=== PATIENT | female | born 1970 | race African-American/Black ===

== ENCOUNTER 2017-05-10 06:51 | Outpatient (RCR) | payer OTHER, SELFPAY ==
[2017-04-19 09:20] LABS: Absolute Lymphocyte Count 1.23 X10^3/ul (0.83-4.51); Absolute Neutrophil Count 5.2 X10^3/uL (2.0-7.7); Basophil# 0.02 X10^3/uL; Basophil% 0.3 % (0-1); Eosinophil# 0.09 X10^3/uL; Eosinophils% 1.3 % (0-5); Hematocrit 32.1 % (37-47); Hemoglobin 10.5 g/dl (12.0-15.0); Lymphocyte # 1.23 X10^3/ul (4.0); Lymphocyte % 17.7 % (19-41); Mean Corp Hgb Conc 32.7 g/gl (32-36); Mean Corpuscular Hgb 30.5 pg (27.0-32.0); Mean Corpuscular Volume 93.3 fL (81-99); Monocyte# 0.41 X10^3/uL; Monocyte% 5.9 % (0-10); Neutrophil # 5.19 X10^3/uL (2.7-7.7); Neutrophil % 74.7 % (47-70); Platelet Count 331 K/mm3 (150-450); RBC Distribution Width CV 13.7 % (11.6-14.6); RBC Distribution Width SD 46.1 fl (35.1-43.9); Red Blood Count 3.44 M/mm3 (4.2-5.4)
[2017-04-19 09:29] LABS: POSITIVE COUNT NO; POSITIVE DIFFERENTIAL NO; POSITIVE MORPHOLOGY NO
[2017-04-19 09:53] LABS: ALB/GLOB Ratio 0.6 RATIO (0.9-2.4); AST(SGOT) 8 U/L (15-37); Alanine Aminotransfer ALT/SGPT 12 U/L (12-78); Albumin, Serum 2.9 g/dL (3.4-5.0); Alkaline Phosphatase 101 U/L (45-117); Anion Gap 7 (5-15); BUN 17 mg/dL (7-18); BUN/Creat Ratio 28.1 RATIO (10-20); Chloride 97 mmol/L (98-107); Creatinine, Serum 0.61 mg/dL (0.55-1.02); EST Glomerular Filtration Rate 112 mL/min (>60); Est Glom Filt Rate - Afr Amer 136 mL/min (>60); Globulin 4.6 g/dL (2.2-4.2); Glucose 197 mg/dL (70-110); Potassium 3.7 mmol/L (3.5-5.1); Protein, Total 7.5 g/dL (6.4-8.2); Sodium Level 135 mmol/L (136-145)
[2017-05-10 08:20] LABS: Absolute Lymphocyte Count 2.32 X10^3/ul (0.83-4.51); Absolute Neutrophil Count 3.1 X10^3/uL (2.0-7.7); Basophil# 0.03 X10^3/uL; Basophil% 0.5 % (0-1); Eosinophils% 1.7 % (0-5); Hematocrit 32.3 % (37-47); Hemoglobin 10.6 g/dl (12.0-15.0); Lymphocyte # 2.32 X10^3/ul (4.0); Lymphocyte % 39.1 % (19-41); Mean Corp Hgb Conc 32.8 g/gl (32-36); Mean Corpuscular Hgb 30.8 pg (27.0-32.0); Mean Corpuscular Volume 93.9 fL (81-99); Mean Platelet Vol. 9.2 fl (6.2-12.0); Monocyte% 6.7 % (0-10); Neutrophil # 3.08 X10^3/uL (2.7-7.7); POSITIVE COUNT NO; POSITIVE DIFFERENTIAL NO; POSITIVE MORPHOLOGY NO; Platelet Count 320 K/mm3 (150-450); RBC Distribution Width CV 14.1 % (11.6-14.6); RBC Distribution Width SD 48.1 fl (35.1-43.9); Red Blood Count 3.44 M/mm3 (4.2-5.4); White Blood Count 5.9 K/mm3 (4.4-11.0)
[2017-05-10 08:43] LABS: ALB/GLOB Ratio 0.8 RATIO (0.9-2.4); AST(SGOT) 11 U/L (15-37); Alanine Aminotransfer ALT/SGPT 20 U/L (12-78); Albumin, Serum 3.2 g/dL (3.4-5.0); Alkaline Phosphatase 80 U/L (45-117); Anion Gap 8 (5-15); BUN 29 mg/dL (7-18); BUN/Creat Ratio 47.9 RATIO (10-20); Calcium,Total 8.4 mg/dL (8.5-10.1); Chloride 97 mmol/L (98-107); Creatinine, Serum 0.61 mg/dL (0.55-1.02); EST Glomerular Filtration Rate 112 mL/min (>60); Est Glom Filt Rate - Afr Amer 136 mL/min (>60); Globulin 4.1 g/dL (2.2-4.2); Glucose 269 mg/dL (70-110); Magnesium 1.2 mg/dL (1.6-2.6); Phosphorus 3.6 mg/dL (2.5-4.9); Protein, Total 7.3 g/dL (6.4-8.2); Sodium Level 133 mmol/L (136-145)
== END 2017-05-10 07:00 | disposition home or self-care (01) ==
LOC: LAB 06:51
PROVIDERS: Family Provider Family Medicine; PCP Family Medicine; Visit Provider Internal Medicine Hematology & Oncology
DX: C50.411 Malignant neoplasm of upper-outer quadrant of right female breast (principal); Z17.1 Estrogen receptor negative status [ER-]
CPT/HCPCS: 36415; 80053; 83735; 84100; 85025; 86140

== ENCOUNTER 2017-06-01 06:33 | Outpatient (RCR) | payer OTHER, SELFPAY ==
[2017-04-24 13:52] VITALS: BMI 28.8
[2017-04-26 10:00] VITALS: BP 135/81
[2017-06-01 08:57] LABS: Absolute Lymphocyte Count 2.17 X10^3/ul (0.83-4.51); Absolute Neutrophil Count 2.7 X10^3/uL (2.0-7.7); Basophil# 0.01 X10^3/uL; Basophil% 0.2 % (0-1); Eosinophil# 0.05 X10^3/uL; Hematocrit 32.4 % (37-47); Hemoglobin 10.8 g/dl (12.0-15.0); Lymphocyte # 2.17 X10^3/ul (4.0); Lymphocyte % 41.3 % (19-41); Mean Corp Hgb Conc 33.3 g/gl (32-36); Mean Corpuscular Hgb 31.6 pg (27.0-32.0); Mean Corpuscular Volume 94.7 fL (81-99); Mean Platelet Vol. 9.2 fl (6.2-12.0); Monocyte# 0.29 X10^3/uL; Monocyte% 5.5 % (0-10); Neutrophil # 2.73 X10^3/uL (2.7-7.7); POSITIVE COUNT NO; POSITIVE DIFFERENTIAL NO; POSITIVE MORPHOLOGY NO; Platelet Count 307 K/mm3 (150-450); RBC Distribution Width SD 45.2 fl (35.1-43.9); Red Blood Count 3.42 M/mm3 (4.2-5.4); White Blood Count 5.3 K/mm3 (4.4-11.0)
[2017-06-01 09:28] LABS: ALB/GLOB Ratio 0.9 RATIO (0.9-2.4); AST(SGOT) 11 U/L (15-37); Alanine Aminotransfer ALT/SGPT 17 U/L (13-56); Albumin, Serum 3.4 g/dL (3.2-5.0); Alkaline Phosphatase 80 U/L (45-117); Anion Gap 11 (5-15); BUN 26 mg/dL (7-18); BUN/Creat Ratio 37.7 RATIO (10-20); Calcium,Total 8.5 mg/dL (8.5-10.1); Chloride 100 mmol/L (98-107); Creatinine, Serum 0.69 mg/dL (0.55-1.02); EST Glomerular Filtration Rate 97 mL/min (>60); Est Glom Filt Rate - Afr Amer 117 mL/min (>60); Globulin 3.8 g/dL (2.2-4.2); Glucose 272 mg/dL (74-106); Magnesium 1.5 mg/dL (1.6-2.6); Potassium 4.1 mmol/L (3.5-5.1); Protein, Total 7.2 g/dL (6.4-8.2); Sodium Level 137 mmol/L (136-145)
== END 2017-06-01 07:00 | disposition home or self-care (01) ==
LOC: LAB 06:33
PROVIDERS: Family Provider Family Medicine; PCP Family Medicine; Visit Provider Internal Medicine Hematology & Oncology
DX: C50.411 Malignant neoplasm of upper-outer quadrant of right female breast (principal); Z17.1 Estrogen receptor negative status [ER-]
CPT/HCPCS: 36415; 36591; 80053; 83735; 85025; A4216

== ENCOUNTER → 2017-06-09 09:24 | Outpatient (CLI) | payer OTHER, SELFPAY ==
--- NOTE | 2017-06-09 09:26 | NM_ITS ---
CLINICAL: 47-year-old female with reported history of primary breast carcinoma. WHOLE BODY 99m Tc MDP RADIONUCLIDE BONE SCINTIGRAPHY COMPARISON: Previous whole body bone scintigraphy study dated 04/13/2017 FINDINGS: Following the intravenous administration of 25.9 mCi of 99m Tc MDP, whole body bone images reveal: 1. Increased radiopharmaceutical concentration is currently identified in the bilateral hip articulations, the sternoclavicular and acromioclavicular compartments of both shoulders, glenohumeral compartment of the right shoulder, right wrist, ninth thoracic vertebra posteriorly on the left, fourth lumbar vertebra posteriorly on the left, the right knee, right ankle and right forefoot. 2. Enhanced uptake remains apparent in the right anterolateral 10th rib. 3. The remaining skeletal structures are scintigraphically unremarkable with normal-appearing renal images and urinary bladder activity identified. NM/Bone Scan Whole Body IMPRESSION: 1. The increase in radiopharmaceutical concentration identified in the bilateral hip and shoulder articulations, right wrist, thoracic and lumbar spine, right knee, right ankle and right forefoot is most consistent with degenerative arthritis. 2. Facilitated tracer concentration visualized in the right anterolateral 10th rib remains consistent with trauma-fracture. 3. Overall compared to the previous whole body bone scintigraphy study dated 04/13/2017, there is no significant interval change. No current typical scintigraphic evidence of diffuse axial skeletal metastatic disease is defined on the present evaluation. Electronically Signed: Clay Real DO at 10:34 EST Tel , Service support ,
== END ==
PROVIDERS: Family Provider Family Medicine; PCP Family Medicine; Visit Provider Internal Medicine Hematology & Oncology
DX: C50.411 Malignant neoplasm of upper-outer quadrant of right female breast (principal); Z17.1 Estrogen receptor negative status [ER-]; C78.02 Secondary malignant neoplasm of left lung; Z00.6 Encounter for examination for normal comparison and control in clinical research program
CPT/HCPCS: 78306

== ENCOUNTER → 2017-06-20 13:23 | Outpatient (CLI) | payer OTHER, SELFPAY ==
--- NOTE | 2017-06-20 13:27 | CT_ITS ---
STUDY: CT CHEST WITH CONTRAST REASON FOR EXAM: Female, 47 years old. Patient has a history of a right breast cancer with lung metastasis. The patient is status post right lumpectomy. RADIATION DOSAGE (If Supplied By Facility): CTDIvol = ( 17.05 ) mGy, DLP = ( 1783.63 ) mGycm TECHNIQUE: Transaxial imaging was performed following intravenous administration of 100CC ml of Isovue 300 contrast material. Multiplanar coronal and sagittal images were reformatted. Individualized dose optimization techniques were used for this CT. COMPARISON: Comparison is made with prior examination dated April 15, 2017. FINDINGS: A left-sided portacatheter is seen. The tip is in the superior vena cava. There is evidence of a diffuse skin thickening of the right breast. Mild degree of increased linear markings are seen in the right middle lobe. This most likely represents post radiation fibrosis. The previously seen infiltration as resolved. There is no demonstrated pleural abnormality. Normal heart and pericardium. Normal mediastinum. Normal hilar regions. Normal enhanced pulmonary arteries. Normal aorta arch and descending thoracic aorta. There are multi-level degenerative changes of the thoracic spine. There is no demonstrated abnormality of the visualized upper abdomen. CT/Chest WITH Contrast IMPRESSION: Skin thickening of the right breast. The previously seen infiltration in the right middle lobe has cleared. Minimal linear densities persist most likely representing scarring. Electronically Signed: Darryl Ford MD at 14:48 EST Tel [phone], Service support ,
--- NOTE | 2017-06-20 13:27 | CT_ITS ---
STUDY: CT ABDOMEN AND PELVIS WITH CONTRAST REASON FOR EXAM: Female, 47 years old. History of metastatic breast cancer. Prior right lumpectomy. RADIATION DOSAGE (If Supplied By Facility): CTDIvol = ( 17.05 ) mGy, DLP = ( 1783.63 ) mGycm TECHNIQUE: Transaxial images were obtained from the dome of the diaphragm to the symphysis pubis with oral contrast. 100CC ml of Isovue 300 contrast was administered. Sagittal and coronal images were reconstructed. Individualized dose optimization techniques were used for this CT. COMPARISON: Comparison is made with prior study dated January 20, 2017. FINDINGS: Diffuse right breast skin thickening. Mild increased linear markings in the anterior aspect of the right middle lobe suggestive of linear scarring. The visualized portions of the heart are within normal limits. Normal liver. Normal gallbladder and extrahepatic biliary system. Normal spleen. Normal pancreas. Normal bilateral adrenal glands. Normal right kidney. Normal left kidney. There is a small hiatal hernia. Normal small intestine. Normal colon. The appendix is visualized and appears normal. There is scattered atherosclerotic calcification of the abdominal aorta, without a demonstrated aneurysm. Normal inferior vena cava. Normal retroperitoneum. Normal urinary bladder. There is absence of the uterus consistent with a prior hysterectomy. Normal abdominal wall. There are degenerative changes of the visualized lumbar spine. Degenerative changes of both hip joints with bilateral acetabular spurs. CT/Abdomen/Pelvis WITH Contrast IMPRESSION: Mild degree of increased linear markings in the right middle lobe suggestive of scarring. Electronically Signed: Daryrl Ford MD at 14:52 EST Tel [phone], Service support ,
== END ==
PROVIDERS: Family Provider Family Medicine; PCP Family Medicine; Visit Provider Internal Medicine Hematology & Oncology
DX: C50.411 Malignant neoplasm of upper-outer quadrant of right female breast (principal); Z17.1 Estrogen receptor negative status [ER-]; C78.02 Secondary malignant neoplasm of left lung
CPT/HCPCS: 71260; 74177; Q9967; A4216

== ENCOUNTER → 2017-06-21 08:33 | Outpatient (CLI) | payer OTHER, SELFPAY ==
--- NOTE | 2017-06-21 08:55 | RAD_ITS ---
STUDY: X-RAY - PELVIS AND BILATERAL HIPS REASON FOR EXAM: Female, 47 years old. Bilateral hip pain, left greater than right. History of breast cancer. TECHNIQUE: Radiological exam, hip, bilateral, with pelvis when performed; 2 views COMPARISON: Radiographs of the left hip dated August 13, 2016 and of the right hip dated February 10, 2012. FINDINGS: There is a non-specific bowel gas pattern. Normal visualized soft tissue structures. Normal bilateral iliac wings, sacroiliac joints and visualized sacrum. Normal bilateral superior and inferior pubic rami. Normal pubic symphysis. Normal bilateral ischial tuberosities. There is moderate arthrosis of the right hip, relatively unchanged from the prior study. There is osteophyte formation in the acetabulum on the right unchanged. There is moderate arthrosis of the left hip, relatively unchanged from the prior study. There is osteophyte formation of the left acetabulum unchanged. RAD/Hips B/L min 2 views w/ Pelvis IMPRESSION: Relatively stable moderate arthrosis of both hips. No new or acute pathology. Electronically Signed: Ruperto Sahu MD at 17:01 EST , Service support ,
== END ==
PROVIDERS: Family Provider Family Medicine; PCP Family Medicine; Visit Provider Internal Medicine Hematology & Oncology
DX: C50.411 Malignant neoplasm of upper-outer quadrant of right female breast (principal); Z17.1 Estrogen receptor negative status [ER-]; M16.0 Bilateral primary osteoarthritis of hip
CPT/HCPCS: 73521

== ENCOUNTER 2017-07-12 09:06 | Outpatient (RCR) | payer OTHER, SELFPAY ==
[2017-06-21 10:44] LABS: Absolute Lymphocyte Count 1.76 X10^3/ul (0.83-4.51); Basophil# 0.01 X10^3/uL; Basophil% 0.2 % (0-1); Eosinophil# 0.06 X10^3/uL; Eosinophils% 1.2 % (0-5); Hematocrit 33.6 % (37-47); Hemoglobin 11.3 g/dl (12.0-15.0); Lymphocyte # 1.76 X10^3/ul (4.0); Lymphocyte % 33.9 % (19-41); Mean Corp Hgb Conc 33.6 g/gl (32-36); Mean Corpuscular Hgb 31.7 pg (27.0-32.0); Mean Corpuscular Volume 94.1 fL (81-99); Mean Platelet Vol. 9.4 fl (6.2-12.0); Monocyte# 0.31 X10^3/uL; Neutrophil # 3.04 X10^3/uL (2.7-7.7); Neutrophil % 58.5 % (47-70); Platelet Count 295 K/mm3 (150-450); RBC Distribution Width CV 11.7 % (11.6-14.6); RBC Distribution Width SD 39.1 fl (35.1-43.9); Red Blood Count 3.57 M/mm3 (4.2-5.4); White Blood Count 5.2 K/mm3 (4.4-11.0)
[2017-06-21 10:54] LABS: POSITIVE COUNT NO; POSITIVE DIFFERENTIAL NO; POSITIVE MORPHOLOGY NO
[2017-06-21 11:09] LABS: ALB/GLOB Ratio 0.8 RATIO (0.9-2.4); AST(SGOT) 12 U/L (15-37); Alanine Aminotransfer ALT/SGPT 16 U/L (13-56); Albumin, Serum 3.3 g/dL (3.2-5.0); Alkaline Phosphatase 81 U/L (45-117); Anion Gap 6 (5-15); BUN 26 mg/dL (7-18); Calcium,Total 8.9 mg/dL (8.5-10.1); Chloride 101 mmol/L (98-107); Creatinine, Serum 0.63 mg/dL (0.55-1.02); EST Glomerular Filtration Rate 106 mL/min (>60); Est Glom Filt Rate - Afr Amer 129 mL/min (>60); Globulin 4.3 g/dL (2.2-4.2); Glucose 148 mg/dL (74-106); Magnesium 1.8 mg/dL (1.6-2.6); Potassium 3.8 mmol/L (3.5-5.1); Protein, Total 7.6 g/dL (6.4-8.2); Sodium Level 139 mmol/L (136-145)
[2017-07-12 10:25] LABS: Absolute Lymphocyte Count 1.76 X10^3/ul (0.83-4.51); Absolute Neutrophil Count 2.8 X10^3/uL (2.0-7.7); Basophil# 0.01 X10^3/uL; Basophil% 0.2 % (0-1); Eosinophil# 0.06 X10^3/uL; Eosinophils% 1.2 % (0-5); Hematocrit 33.7 % (37-47); Hemoglobin 11.1 g/dl (12.0-15.0); Lymphocyte # 1.76 X10^3/ul (4.0); Mean Corp Hgb Conc 32.9 g/gl (32-36); Mean Corpuscular Hgb 31.6 pg (27.0-32.0); Mean Platelet Vol. 9.1 fl (6.2-12.0); Monocyte# 0.31 X10^3/uL; Monocyte% 6.3 % (0-10); Neutrophil # 2.75 X10^3/uL (2.7-7.7); Neutrophil % 56.3 % (47-70); POSITIVE COUNT NO; POSITIVE DIFFERENTIAL NO; POSITIVE MORPHOLOGY NO; Platelet Count 271 K/mm3 (150-450); RBC Distribution Width CV 12.5 % (11.6-14.6); Red Blood Count 3.51 M/mm3 (4.2-5.4); White Blood Count 4.9 K/mm3 (4.4-11.0)
[2017-07-12 10:56] LABS: ALB/GLOB Ratio 0.8 RATIO (0.9-2.4); AST(SGOT) 17 U/L (15-37); Alanine Aminotransfer ALT/SGPT 33 U/L (13-56); Albumin, Serum 3.3 g/dL (3.2-5.0); Alkaline Phosphatase 73 U/L (45-117); Anion Gap 5 (5-15); BUN 27 mg/dL (7-18); BUN/Creat Ratio 48.9 RATIO (10-20); Calcium,Total 8.8 mg/dL (8.5-10.1); Chloride 105 mmol/L (98-107); Creatinine, Serum 0.55 mg/dL (0.55-1.02); EST Glomerular Filtration Rate 125 mL/min (>60); Est Glom Filt Rate - Afr Amer 151 mL/min (>60); Globulin 4.1 g/dL (2.2-4.2); Glucose 154 mg/dL (74-106); Magnesium 1.7 mg/dL (1.6-2.6); Protein, Total 7.4 g/dL (6.4-8.2); Sodium Level 141 mmol/L (136-145)
== END 2017-07-12 10:00 | disposition home or self-care (01) ==
LOC: LAB 09:06
PROVIDERS: Family Provider Family Medicine; PCP Family Medicine; Visit Provider Internal Medicine Hematology & Oncology
DX: C50.411 Malignant neoplasm of upper-outer quadrant of right female breast (principal); Z17.1 Estrogen receptor negative status [ER-]
CPT/HCPCS: 36415; 80053; 83735; 85025

== ENCOUNTER → 2017-08-02 08:40 | Outpatient (CLI) | payer OTHER, SELFPAY | PROVIDERS: Family Provider Family Medicine; PCP Family Medicine; Visit Provider Internal Medicine Hematology & Oncology | DX: Z45.2 Encounter for adjustment and management of vascular access device (principal); C50.411 Malignant neoplasm of upper-outer quadrant of right female breast | CPT/HCPCS: 36591; A4216 ==

== ENCOUNTER 2017-08-02 08:42 | Outpatient (RCR) | payer OTHER, SELFPAY ==
[2017-08-02 09:24] LABS: Absolute Lymphocyte Count 1.48 X10^3/ul (0.83-4.51); Absolute Neutrophil Count 2.9 X10^3/uL (2.0-7.7); Basophil# 0.01 X10^3/uL; Basophil% 0.2 % (0-1); Eosinophil# 0.05 X10^3/uL; Eosinophils% 1.1 % (0-5); Hematocrit 33.9 % (37-47); Hemoglobin 11.4 g/dl (12.0-15.0); Lymphocyte # 1.48 X10^3/ul (4.0); Lymphocyte % 31.5 % (19-41); Mean Corp Hgb Conc 33.6 g/gl (32-36); Mean Corpuscular Hgb 31.5 pg (27.0-32.0); Mean Corpuscular Volume 93.6 fL (81-99); Mean Platelet Vol. 8.5 fl (6.2-12.0); Monocyte# 0.29 X10^3/uL; Monocyte% 6.2 % (0-10); Neutrophil # 2.86 X10^3/uL (2.7-7.7); Neutrophil % 60.8 % (47-70); POSITIVE COUNT NO; POSITIVE DIFFERENTIAL NO; POSITIVE MORPHOLOGY NO; Platelet Count 273 K/mm3 (150-450); RBC Distribution Width CV 12.4 % (11.6-14.6); Red Blood Count 3.62 M/mm3 (4.2-5.4); White Blood Count 4.7 K/mm3 (4.4-11.0)
[2017-08-02 10:10] LABS: ALB/GLOB Ratio 0.8 RATIO (0.9-2.4); AST(SGOT) 15 U/L (15-37); Alanine Aminotransfer ALT/SGPT 28 U/L (13-56); Albumin, Serum 3.3 g/dL (3.2-5.0); Alkaline Phosphatase 75 U/L (45-117); Anion Gap 10 (5-15); BUN 28 mg/dL (7-18); BUN/Creat Ratio 43.2 RATIO (10-20); Calcium,Total 8.7 mg/dL (8.5-10.1); Chloride 101 mmol/L (98-107); Creatinine, Serum 0.65 mg/dL (0.55-1.02); EST Glomerular Filtration Rate 104 mL/min (>60); Est Glom Filt Rate - Afr Amer 126 mL/min (>60); Globulin 4.1 g/dL (2.2-4.2); Glucose 253 mg/dL (74-106); Magnesium 1.5 mg/dL (1.6-2.6); Potassium 3.9 mmol/L (3.5-5.1); Protein, Total 7.4 g/dL (6.4-8.2); Sodium Level 140 mmol/L (136-145); Thyroid Stim Hormone (TSH) 0.71 uIU/mL (0.358-3.74)
[2017-08-03 08:27] LABS: Vitamin B12 678 pg/mL (211-911)
== END 2017-08-02 09:00 | disposition home or self-care (01) ==
LOC: LAB 08:42
PROVIDERS: Family Provider Family Medicine; PCP Family Medicine; Visit Provider Internal Medicine Hematology & Oncology
DX: C50.411 Malignant neoplasm of upper-outer quadrant of right female breast (principal); Z17.1 Estrogen receptor negative status [ER-]; G62.9 Polyneuropathy, unspecified
CPT/HCPCS: 80053; 82607; 83735; 84443; 85025

== ENCOUNTER → 2017-08-16 07:57 | Outpatient (CLI) | payer OTHER, SELFPAY ==
--- NOTE | 2017-08-16 07:59 | NM_ITS ---
CLINICAL: 47-year-old female with history of carcinoma of the breast. WHOLE BODY 99m Tc MDP RADIONUCLIDE BONE SCINTIGRAPHY COMPARISON: Previous whole body bone scintigraphy study dated 06/09/2017 FINDINGS: Following the intravenous administration of 25.2 mCi of 99m Tc MDP, whole body bone images reveal: 1. Increased radiopharmaceutical concentration is defined in the distal sternum. 2. Enhanced uptake is currently defined in the acromioclavicular and sternoclavicular compartments of both shoulders, lateral humeral compartment of the right shoulder, seventh-ninth, 11th-12th thoracic vertebra, fourth lumbar vertebra posteriorly on the left, bilateral elbow articulations, the right wrist, right-left hip articulations involving the inferior posterior acetabulum, both knees, the right ankle. 3. The remaining skeletal structures are scintigraphically unremarkable with normal-appearing renal images and urinary bladder activity identified. NM/Bone Scan Whole Body IMPRESSION: 1. The increase in radiopharmaceutical concentration identified in the distal sternum may be further investigated with plain film radiography in the setting of known breast carcinoma. 2. Degenerative arthritis appears expressed in the bilateral shoulders, thoracic and lumbar spine, elbows bilaterally, right wrist, bilateral hips, right-left knees and right ankle. 3. Overall compared to the previous whole body bone scintigraphy study dated 06/15/2017, the increase in radiopharmaceutical concentration defined in the distal sternum may be further investigated with plain film radiography in the setting of known breast carcinoma. Electronically Signed: Clay Real DO at 23:47 EDT Tel , Service support ,
--- NOTE | 2017-08-16 12:55 | CT_ITS ---
STUDY: CT CHEST WITH CONTRAST REASON FOR EXAM: Female, 47 years old. 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 Multiplanar coronal and sagittal images were reformatted. Individualized dose optimization techniques were used for this CT. COMPARISON: June [address] scan chest, April 15, 2017. FINDINGS: There is right side partially visualized breast skin thickening and increased density right greater than left. There is a strandy and homogeneous masslike density within the right axilla that measures 3.6 x 2.4 cm. Allowing for differences in technique this is slightly larger than the prior study June 20, 2017 and image are 2.6 x 1.9 cm but improved since April 15, 2017. The small left axillary nodes appear stable. There is a left side Port-A-Cath with the tip in the superior vena cava. There is trace interstitial thickening within the right middle lobe stable since prior study. There is no visualized focal suspicious nodule or mass. There is no demonstrated pleural abnormality. There is mild cardiac enlargement. There is minimal density in the prevascular space suggesting possible residual thymus similar to the prior study. Normal hilar regions. Normal enhanced pulmonary arteries. Normal aorta arch and descending thoracic aorta. There are multi-level degenerative changes of the thoracic spine. There is hepatic steatosis. The upper aspect of the liver visualized on the CT scan of the chest appears fairly homogeneous. There is a minimal hiatal hernia. The bones are somewhat osteopenic. Approximately at the anterior aspect of right rib 6 there is a small focus of sclerotic density image #84 measuring approximately 8.6 mm.. The thyroid appears mildly prominent. CT/Chest WITH Contrast IMPRESSION: Slightly greater size of the right axillary mass when compared to more recent study but smaller than the mass April 15, 2017. Port-A-Cath Subtle sclerotic density within approximately right ribs 6 stable since prior study April 15, 2017. This may represent a benign focus of sclerosis or bone cyst. Recommend continued follow-up bone scans. Trace remaining scarring or atelectasis within the right middle lobe. Degenerative change of the thoracolumbar spine. Persistent findings consistent with radiation of the right breast with skin thickening and calcification. Electronically Signed: Sintia Balderas MD at 14:51 EDT Tel , Service support ,
--- NOTE | 2017-08-16 12:59 | CT_ITS ---
STUDY: CT ABDOMEN AND PELVIS WITH CONTRAST REASON FOR EXAM: Female, 47 years old. Ligament neoplasm breast with lung metastases RADIATION DOSAGE (If Supplied By Facility): CTDIvol = ( 17.91 ) mGy, DLP = ( 1721.20 ) mGycm TECHNIQUE: Transaxial images were obtained from the dome of the diaphragm to the symphysis pubis without oral contrast. 100mL ml of Isovue 300 contrast was administered. Sagittal and coronal images were reconstructed. Individualized dose optimization techniques were used for this CT. COMPARISON: CT abdomen and pelvis June 20, 2017 FINDINGS: There is minimal residual linear thickening within the right middle lobe when compared to the prior study. The visualized portions of the heart are within normal limits. There is partially visualized asymmetric thickening of the record of the left breast. The liver is homogeneous without evidence of focal mass or perihepatic fluid collection. Normal gallbladder and extrahepatic biliary system. Normal spleen. Normal pancreas. Normal bilateral adrenal glands. Normal right kidney. Normal left kidney. There is a small hiatal hernia. There is a contrasted silhouette appearance of the stomach and the nonobstructed small bowel. There is a moderate amount of stool in the colon from the cecum to the rectum. The appendix is visualized and appears normal. The aorta is partially calcified. Normal inferior vena cava. Normal retroperitoneum. The bladder is distended the wall is thickened up to 9.0 mm. Compared to prior study this is fairly similar. There is absence of the uterus consistent with a prior hysterectomy. There is a small umbilical hernia containing fat. There are diffuse degenerative changes of the visualized lumbar spine. There is degenerative change of bilateral hip joints with moderate narrowing and acetabular spurring. There is mild degenerative change of the symphysis pubis. There is a trace focus of sclerosis in the right side of the SI joint crossing the joint space which likely represents degenerative change. There is no definitive evidence of lytic or sclerotic lesion. There is multilevel disc space narrowing and endplate sclerosis spondylosis. At the level of L2-L3, L3-L4 and L4-L5 as well as L5-S1 there is broad disc bulge with moderate neural foramina narrowing. At the level of L3-L4 there is moderate to severe central stenosis. CT/Abdomen/Pelvis WITH Contrast IMPRESSION: No visualized evidence of metastatic disease to the liver spleen or adrenal glands. Degenerative change of the lumbar spine most significant at the level of L3-L4. Constipation. Wall thickening of the bladder suspicious for cystitis. Status post hysterectomy. Visualized residual scarring in the right middle lobe Visible right breast wall thickening. Advanced degenerative change of both hip joints. Electronically Signed: Sintia Balderas MD at 15:09 EDT Tel , Service support ,
== END ==
PROVIDERS: Family Provider Family Medicine; PCP Family Medicine; Visit Provider Internal Medicine Hematology & Oncology
DX: C50.411 Malignant neoplasm of upper-outer quadrant of right female breast (principal); Z17.1 Estrogen receptor negative status [ER-]; C78.02 Secondary malignant neoplasm of left lung
CPT/HCPCS: 71260; 74177; 78306; Q9967; A4216

== ENCOUNTER → 2017-08-23 07:18 | Outpatient (CLI) | payer OTHER, SELFPAY ==
[2017-08-23 07:55] LABS: Basophil# 0.02 X10^3/uL; Basophil% 0.4 % (0-1); Eosinophil# 0.06 X10^3/uL; Eosinophils% 1.1 % (0-5); Hematocrit 32.9 % (37-47); Hemoglobin 11.1 g/dl (12.0-15.0); Lymphocyte % 37.4 % (19-41); Mean Corp Hgb Conc 33.7 g/gl (32-36); Mean Corpuscular Hgb 31.4 pg (27.0-32.0); Mean Corpuscular Volume 93.2 fL (81-99); Mean Platelet Vol. 8.7 fl (6.2-12.0); Monocyte# 0.24 X10^3/uL; Monocyte% 4.5 % (0-10); Neutrophil # 3.02 X10^3/uL (2.7-7.7); Neutrophil % 56.4 % (47-70); Platelet Count 272 K/mm3 (150-450); RBC Distribution Width CV 12.8 % (11.6-14.6); RBC Distribution Width SD 43.7 fl (35.1-43.9); Red Blood Count 3.53 M/mm3 (4.2-5.4); White Blood Count 5.4 K/mm3 (4.4-11.0)
[2017-08-23 07:57] LABS: POSITIVE COUNT NO; POSITIVE DIFFERENTIAL NO; POSITIVE MORPHOLOGY NO
[2017-08-23 07:59] LABS: ALB/GLOB Ratio 0.9 RATIO (0.9-2.4); AST(SGOT) 12 U/L (15-37); Alanine Aminotransfer ALT/SGPT 21 U/L (13-56); Albumin, Serum 3.4 g/dL (3.2-5.0); Alkaline Phosphatase 75 U/L (45-117); Anion Gap 7 (5-15); BUN 26 mg/dL (7-18); BUN/Creat Ratio 36.5 RATIO (10-20); Calcium,Total 8.7 mg/dL (8.5-10.1); Chloride 103 mmol/L (98-107); Creatinine, Serum 0.71 mg/dL (0.55-1.02); EST Glomerular Filtration Rate 93 mL/min (>60); Est Glom Filt Rate - Afr Amer 113 mL/min (>60); Globulin 3.9 g/dL (2.2-4.2); Glucose 155 mg/dL (74-106); Magnesium 1.5 mg/dL (1.6-2.6); Protein, Total 7.3 g/dL (6.4-8.2); Sodium Level 139 mmol/L (136-145)
== END ==
PROVIDERS: Family Provider Family Medicine; PCP Family Medicine; Visit Provider Internal Medicine Hematology & Oncology
DX: C50.411 Malignant neoplasm of upper-outer quadrant of right female breast (principal); Z17.1 Estrogen receptor negative status [ER-]
CPT/HCPCS: 36591; 80053; 83735; 85025; A4216

== ENCOUNTER → 2017-08-29 08:28 | Outpatient (CLI) | payer OTHER, SELFPAY ==
--- NOTE | 2017-08-29 09:00 | PET_ITS ---
EXAMINATION: FDG PET CT INDICATIONS: A 47-year-old female with history of carcinoma of the breast presenting for restaging examination. COMPARISON EXAMINATION: CT of the abdomen and pelvis reports dated 08/16/17, previous FDG PET study report dated 11/29/16. INDEX LESION SIZE SUV INTERPRETATION PERSISTENT: Right supraclavicular region, right axilla 20.7 mm largest (frame 259) compared to 23.1 mm, 11/29/16 5.9 (max) compared to 7.6, 11/29/16 Fulfills quantitative criteria for viable neoplasm, interim metabolic improvement ? quantitative partial metabolic response TECHNIQUE: Following the intravenous administration of 15.17 mCi of F-18 deoxyglucose via the left antecubital fossa, multiplanar image acquisitions of the neck, chest, abdomen and pelvis to level of mid thigh, obtained at one hour post radiopharmaceutical administration contemporaneously interpreted with the current CT of the neck, chest, abdomen and pelvis to level of mid thigh, dated 08/29/[address] of the abdomen and pelvis reports dated 08/16/17, previous FDG PET study report dated 11/29/16 reveal: SERUM GLUCOSE LEVEL: 160 mg/dl. HEIGHT: 67 inches. WEIGHT: 205 lbs. FINDINGS: 1. Presumably redefined increased glucose metabolism is manifest in the right axilla and right supraclavicular region generating a current calculated maximum standard uptake value of 5.9 compared to 7.6 defined on the FDG PET study dated 11/29/16. The maximal axial diameter of the corresponding hypermetabolic soft tissue density on review of CT of the thorax dated 08/29/17 is 20.7 mm (AP). 2. Normal physiologic distribution of the radiopharmaceutical is apparent in the hepatic (3.0/2.1) and splenic parenchyma, both renal units, bladder and visualized intestinal tract. There is uniform distribution of the radiopharmaceutical concentration compared on the cerebellar hemispheres and cerebral cortex. Diffuse intestinal tract activity is noted throughout all four quadrants of the abdominal-pelvic retroperitoneum, mesentery consistent with normal physiologic distribution of the radiopharmaceutical. The previously identified additional right supraclavicular and axillary hypermetabolic foci are not apparent on the current examination. Cpis-Y-Sbkq-MediPort placement is noted. The prior defined morphologic-anatomic changes noted on CT of the neck, chest, abdomen and pelvis manifest on the FDG PET CT study dated 11/29/16 are essentially unchanged on the present examination. PET/PET/CT Tumor Base -Thigh Subs IMPRESSION: 1. ABNORMAL EXAMINATION INDICATIVE OF MALIGNANT VIABLE NEOPLASM. 2. Increased glucose concentration redemonstrated in the right axilla, right supraclavicular lymph node distribution fulfills quantitative criteria for viable neoplasm. 3. Additional prior defined right axillary and supraclavicular hypermetabolic abnormalities are not defined on the current examination. 4. Overall, compared to the prior FDG PET study report dated 11/29/16, there is continued demonstration of viable neoplasm within the context of the right axilla and right supraclavicular regions manifesting an interval quantitative partial metabolic response, according to EORTC and PERCIST criteria and interval quantitative complete metabolic response relating to the prior defined additional hypermetabolic. (Young et al, Journal of Cancer 13:1773, 1999. Nav et al, J Nucl Med 50: 122S, 2009). Electronic Signature Clay Real D.O. Electronically Signed: Clay Real DO at 21:35 EDT Tel , Service support ,
[2017-08-29 11:38] LABS: Glucose 140 mg/dL (74-106)
== END ==
PROVIDERS: Family Provider Family Medicine; PCP Family Medicine; Visit Provider Internal Medicine Hematology & Oncology
DX: C50.411 Malignant neoplasm of upper-outer quadrant of right female breast (principal); R91.1 Solitary pulmonary nodule
CPT/HCPCS: 36415; 78815; 82947; A9552; A4216

== ENCOUNTER 2017-08-29 11:44 | Emergency (ER) | payer OTHER, SELFPAY ==
[2017-08-29 11:45] VITALS: BP 137/84; PULSE 102; RESP 17; TEMP 36.7; O2SAT 98; BMI 32.3
--- NOTE | 2017-08-29 12:01 | CT_ITS ---
STUDY: CT BRAIN WITHOUT CONTRAST REASON FOR EXAM: Female, 47 years old. Confusion. RADIATION DOSAGE (If Supplied By Facility): CTDIvol = ( 60.81 ) mGy, DLP = ( 998.67 ) mGycm TECHNIQUE: Transaxial CT imaging of the brain was performed without administration of intravenous contrast material. Individualized dose optimization techniques were used for this CT. COMPARISON: Comparison is made with prior MRI of the brain dated November 23, 2016. FINDINGS: Electrodes are seen within the soft tissues overlying both right and left frontal bones. There is hyperostosis frontalis internus. Focal dense calcification of the cerebral falx. Normal size ventricles and extra-axial spaces for the patient's age. Normal white matter tracts of the cerebral hemispheres. Normal basal ganglia and thalami. Normal brainstem. Normal cerebellum. There is no intracranial hemorrhage. There are no findings of an acute ischemic infarction. Normal visualized paranasal sinuses. CT/Brain/Head without Contrast IMPRESSION: Focal dense calcification of the cerebral falx. Electrodes are seen overlying the right and left frontal scalp. Electronically Signed: Darryl Ford MD at 12:59 EDT Tel [phone], Service support ,
--- NOTE | 2017-08-29 12:01 | EKG12_ITS ---
Test Reason : NEURO Blood Pressure : / mmHG Vent. Rate : 103 BPM Atrial Rate : 103 BPM P-R Int : 164 ms QRS Dur : 088 ms QT Int : 360 ms P-R-T Axes : 060 047 043 degrees QTc Int : 471 ms Sinus tachycardia Otherwise normal ECG Confirmed by ROBERTO VELAZQUEZ, SCARLETT ([id number]), art editor MESSI VVIAR ([id number]) on 09/02/2017 2:48:24 PM Referred By: SHELBY/GRECIA Confirmed By:SCARLETT MEJIA MD
[2017-08-29 12:06] LABS: Bedside Glucose 156 mg/dL (70-110)
--- NOTE | 2017-08-29 12:09 | ED.DCSUM_ITS ---
- ER Visit Summary Date of Service: 08/29/17 Chief Complaint: Confusion History of Present Illness: The patient is a 47 F with confusion today. She was fasting for a PET scan. She has a history of breast cancer. She was noted to be confused and have slurred speech. They did give her oral glucose and her sugar was 151. Patient continues to be slow to respond and was sent for an evaluation. Physical Examination: Afebrile. Heart rate 102. Otherwise vitals normal. Alert and oriented. She exhibits psychomotor slowing, but otherwise NIH stroke scale is 0. Heart regular. Lungs clear. Abdomen soft. Skin appears normal. Test Results: EKG, labs, chest x-ray, and CT pending. Emergency Department Course and Treatment: Patient does not meet criteria for stroke team. I suspect her symptoms are secondary to hypoglycemia. She has had this before. Will check a CT and basic workup and continue to monitor. Patient's mental status improved greatly. She had no focal findings to suggest a stroke. Her oncologist was concerned that she would need an MRI to rule out metastatic disease. Workup showed an EKG at a rate of 103. No acute infarction. Troponin normal. Hemoglobin 11.8, sodium 135, potassium 3.3 glucose [address] showed a calcification but no acute findings. Chest x-ray was unremarkable. I spoke with the patient again. I said I cannot rule out stroke or metastatic disease. She would need an MRI and possible admission. She declined this. Requesting to go home. Is currently alert and oriented and acting at baseline. I believe she understands the risks. She is free from influence. Alert and oriented. I will notify Dr. Barakat. Treatment Plan: As above Disposition: Discharged Impression: 1. Confusion--resolved This note was generated with Consultedation software. It may contain incorrect words, spelling, and punctuation that were not noted in review of the chart prior to signing ED Disposition - Plan for ED Patient: Chief Complaint: Neuro S/Sx Referrals: Jacinto Person MD [Primary Care Provider] -
[2017-08-29 12:20] VITALS: O2SAT 98
[2017-08-29 12:20] LABS: Absolute Lymphocyte Count 1.61 X10^3/ul (0.83-4.51); Absolute Neutrophil Count 3.6 X10^3/uL (2.0-7.7); Basophil# 0.01 X10^3/uL; Basophil% 0.2 % (0-1); Eosinophil# 0.04 X10^3/uL; Eosinophils% 0.7 % (0-5); Hemoglobin 11.8 g/dl (12.0-15.0); Lymphocyte # 1.61 X10^3/ul (4.0); Mean Corp Hgb Conc 34.7 g/gl (32-36); Mean Corpuscular Volume 92.1 fL (81-99); Monocyte% 8.7 % (0-10); Neutrophil % 62.4 % (47-70); Platelet Count 287 K/mm3 (150-450); RBC Distribution Width SD 39.1 fl (35.1-43.9); Red Blood Count 3.69 M/mm3 (4.2-5.4); White Blood Count 5.8 K/mm3 (4.4-11.0)
[2017-08-29 12:21] LABS: POSITIVE COUNT NO; POSITIVE DIFFERENTIAL NO; POSITIVE MORPHOLOGY NO
[2017-08-29 12:34] LABS: Anion Gap 8 (5-15); BUN 24 mg/dL (7-18); Calcium,Total 9.5 mg/dL (8.5-10.1); Chloride 98 mmol/L (98-107); Creatinine, Serum 0.56 mg/dL (0.55-1.02); EST Glomerular Filtration Rate 123 mL/min (>60); Est Glom Filt Rate - Afr Amer 149 mL/min (>60); Estimated Creatinine Clearance 119.47 ml/min; Glucose 151 mg/dL (74-106); Potassium 3.3 mmol/L (3.5-5.1); Sodium Level 135 mmol/L (136-145)
--- NOTE | 2017-08-29 12:46 | RAD_ITS ---
STUDY: X-RAY CHEST REASON FOR EXAM: Female, 47 years old. Nausea and vomiting. Confusion. TECHNIQUE: Single AP portable view of the chest. COMPARISON: Comparison is made with prior study dated April 24, 2017. FINDINGS: EKG electrodes are seen. A left-sided portacatheter is present with the tip in the proximal portion of the superior vena cava. The lungs are clear and expanded. There is no demonstrated pleural abnormality. Normal size heart. Normal mediastinum and brandi. Normal visualized pulmonary arteries. Normal visualized aortic arch and descending thoracic aorta. There are degenerative changes of the visualized thoracic spine. Normal visualized ribs, clavicles, and shoulders. There is no demonstrated abnormality of the visualized soft tissue structures of the upper abdomen. RAD/Chest 1 View IMPRESSION: No acute abnormality is seen. Electronically Signed: Darryl Ford MD at 13:23 EDT Tel [phone], Service support ,
[2017-08-29 13:12] LABS: Partial Thromboplast Time 28.6 Seconds (24.1-36.2)
[2017-08-29 13:16] VITALS: BP 174/77; PULSE 104; RESP 16; O2SAT 99
--- NOTE | 2017-08-29 15:26 | ED.DEP ---
ED Disposition - Plan for ED Patient: Chief Complaint: Neuro S/Sx Instructions: ED Confusion Referrals: Jacinto Person MD [Primary Care Provider] - Clifford Barakat DO [STAFF PHYSICIAN] -
[2017-08-29 15:52] VITALS: BP 136/79; PULSE 100; RESP 16; O2SAT 100
--- NOTE | 2017-08-29 15:52 | ED.RN ---
REVIEWED D/C INSTRUCTIONS, FOLLOW UP CARE, AND S/S THAT WOULD WARRANT A RETURN TO THE ED WITH PT. PT VERBALIZED AN UNDERSTANDING AND DENIES FURTHER QUESTIONS FOR THIS RN. PT SKIN P/W/D, RESP EVEN AND UNLABORED, PT A&O X 3, NO DISTRESS NOTED. PT ASSISTED OUT OF ED IN WHEELCHAIR.
== END 2017-08-29 15:54 | disposition home or self-care (01) ==
PROVIDERS: Emergency Provider Emergency Medicine; Family Provider Family Medicine; PCP Family Medicine
DX: R41.0 Disorientation, unspecified (principal); R47.81 Slurred speech; I10 Essential (primary) hypertension; E78.00 Pure hypercholesterolemia, unspecified; E11.9 Type 2 diabetes mellitus without complications; F32.9 Major depressive disorder, single episode, unspecified; F41.9 Anxiety disorder, unspecified; E87.6 Hypokalemia; E83.39 Other disorders of phosphorus metabolism; E83.42 Hypomagnesemia; Z85.3 Personal history of malignant neoplasm of breast; Z87.891 Personal history of nicotine dependence; Z79.4 Long term (current) use of insulin; Z79.899 Other long term (current) drug therapy
CPT/HCPCS: 36591; 70450; 71045; 80048; 82962; 84484; 85025; 85610; 85730; 93005; 99283; A4216

== ENCOUNTER 2017-09-07 13:36 | Outpatient (RCR) | payer OTHER, SELFPAY ==
[2017-09-07 14:09] VITALS: BP 107/70; PULSE 103; RESP 14; TEMP 36.4; O2SAT 98; BMI 30.2
--- NOTE | 2017-09-07 15:29 | ONC.NEWHP3 ---
Subjective Date of Service:: 09/07/17 Chief Complaint: Wants second opinion about breast cancer management. History of Present Illness: Old records reviewed. 47y.o.woman diagnosed with right breast cancer stage IA in August 2013. Needle biopsy on September 13, 2013 showed invasive ductal carcinoma, ER/OH negative, Her2 2+ by IHC, negative by fish. She had partial mastectomy with sentinel node biopsy on October 05, 2013, pathology showed invasive ductal carcinoma, tumor size 1.3 cm, grade 3, 1 sentinel node was negative-Stage IA(pT1c pN0 M0). She received 2 cycles of Taxotere and Cytoxan, was discontinued because of myopathy. Developed lung nodules in October 2016, was found to have axillary mass with Right supraclavicular node on PET/CT scan done on November 29, 2016. She had right axillary lymphadenectomy on December 24, 2016. Pathology showed 1 out of 7 lymph nodes positive with metastatic poorly differentiated carcinoma, ER/OH/Her2 negative. She started therapy on a clinical trial involving Cisplatin with PARP inhibitor or placebo. Cisplatin is now discontinued and is tablets [id number] or placebo 100mg 4tabs bid x 21 days. She recently had restaging studies done and wants to know what to do. Power of Sales And Marketing Assistant: No Living Will: No Health History: Past Medical History Cancer: Breast cancer Past Medical History (Last Updated 09/07/17 @ 14:07 by Deysi Bautista) [place] node (Acute) Past Surgical History (Last Updated 09/07/17 @ 14:07 by Deysi Bautista) History of hysterectomy (Acute) History of lumpectomy of right breast (Acute) Family History (Last Updated 09/07/17 @ 14:09 by Deysi Bautista) Mother Breast cancer Diabetes Aunt Skin cancer Father Heart disease Hypertension Allergies/Adverse Reactions: Allergy/AdvReac Type Severity Reaction Status Date / Time No Known Allergies Allergy Verified 04/24/17 11:37 Home Medications Medication Instructions Recorded Insulin Lispro [Humalog] 15 unit SQ TID 02/12/13 Valacyclovir HCl [Valtrex] 500 mg PO DAILY PRN PRN 02/12/13 buPROPion SR [Wellbutrin SR (150mg 150 mg PO BID 02/12/13 tablets)] Insulin Glargine [Lantus SoloStar 35 units SC BID 09/22/14 Pen] Empagliflozin [Jardiance] 10 mg PO DAILY 12/23/16 Lorazepam [Ativan] 0.5 mg PO BID PRN PRN 12/23/16 lipase/protease/amylase [Creon DR 6,000 each PO TID 12/23/16 6,000 Unit Capsule] Ergocalciferol [Vitamin D] 50,000 unit PO Q7D 03/11/17 Metoclopramide [Reglan] 10 mg PO Q6H PRN PRN #30 tablet 03/11/17 proMETHazine suppository 25 mg RECTAL Q6H PRN PRN #10 03/11/17 [Phenergan Suppository] suppos. Magnesium Oxide [Magnesium] 400 mg PO BID #30 tab 04/26/17 Potassium Chloride [K-Dur] 20 meq PO BID #30 tab 04/26/17 Risk Factors Social History Smoking Status Former smoker Tobacco Risk Data: Tobacco Risk Smoking Status Former smoker Type of tobacco: Smokeless tobacco usage: Items/Day: Year started: Years used: Counseled to quit/cut down: Reason for no counseling performed: Reason for no pharmacotherapy: Tobacco use comments: Passive smoke exposure: Substance Risk Drug use: Caffeine use [drinks/day]: 2 Alcohol use: Type of alcohol: Drinks per day: Has patient felt the need to cut down: Has the patient been annoyed by complaints: Has the patient felt guilty about drinking: Has the patient needed an eye utilization specialist in the mornings: Comments: occasionaly Review of Systems Constitutional:: Denies: Fever, Sweats, Weight loss, Appetite change, Chills Cardiovascular:: Denies: Chest pain, Palpitations, Dyspnea on exertion, Orthopnea, PND, Shortness of breath Respiratory: Denies: Cough, Hemoptysis, Shortness of Breath, Wheezing Gastrointestinal:: Denies: Abdominal pain, Nausea, Vomiting, Diarrhea, Constipation, Hematochezia Genitourinary: Denies: Dysuria, Hematuria, 15, Flank pain Musculoskeletal:: Denies: Back pain, Myalgia, Arthralgia Skin: Denies: Rash, Skin Changes, Wounds Neurological:: Denies: Headache, Dizziness, Visual changes, Tinnitus, Hearing loss Psychiatric: Denies: Anxiety, Depression, Homicidal Ideations, Suicidal Ideations Vital Signs Height 5 ft 8.5 in Weight: 91.626 kg Weight in Pounds 202.0 lbs Pulse Ox 98 Temperature 97.6 F Pulse Rate 103 Respiratory Rate 14 Blood Pressure 107/70 Blood Pressure Position Sitting - Physical Exam General: Alert, Oriented x3, No apparent distress HEENT: Atraumatic, PERRLA, EOMI, Normocephalic Oropharynx:: Dry mucosa Neck:: Supple, Trachea midline. Negative for: JVD, bilateral Cardiac:: Regular rate, Regular rhythm, Normal S1, Normal S2. Negative for: Murmur Lungs: Clear to auscultation, Excusion symmetrical. Negative for: Rhonchi, Wheezes Abdomen:: Bowel sounds x 4, Soft, Non-tender, Non-distended. Negative for: Hepatosplenomegaly Extremities:: Negative for: Cyanosis, Edema Neurological: Neuro grossly intact Skin:: Negative for: Lesions, Rash, Petechiae, Ecchymosis Psychiatric:: Appropriate affect, Euthymic Lymphatics:: Negative for: Cervical lymphadenopathy, Supraclavicular lymphadenopathy, Axillary lymphadenopathy Breast:: - - not done. Diagnostic Data: 08/29/[address] scan reviewed shows right supraclavicular node SUV 5.9 compared to 7.6 in 11/2016, minimal activity in the Right Axillary node. 08/16/2017 CT chest shows right axillary nodule 3 x 2 cm to centimeter port left sided small lung nodules. CT abd/pelvis shows no metastases. 08/16/2017 Bone scan reviewed shows activity in the distal sternum. Assessment and Plan Metastatic right breast cancer involving right axilla and right supraclavicular node, currently on PARP inhibitor or Placebo. Pt has a partial response with decrease in SUV. No evidence of progressive disease. Discussed management of metastatic breast cancer with pt. Since she is on a clinical trial and disease with a Partial response, she should continue. Plan is to continue therapy on the Clinical trial. RTC as needed. Primary Care Provider: Jacinto Person Referring Provider: Jacinto Person - Problem List (1) Carcinoma of right breast metastatic to axillary lymph node Status: Chronic Code Visit Office Visits / Consults: [id number] OV L5 New
== END 2017-09-07 15:06 | disposition home or self-care (01) ==
LOC: OMD 13:36
PROVIDERS: Family Provider Family Medicine; PCP Family Medicine; Visit Provider Internal Medicine Medical Oncology
DX: C50.911 Malignant neoplasm of unspecified site of right female breast (principal)

== ENCOUNTER 2017-09-13 06:29 | Outpatient (RCR) | payer OTHER, SELFPAY ==
[2017-09-13 08:07] LABS: Absolute Lymphocyte Count 1.88 X10^3/ul (0.83-4.51); Absolute Neutrophil Count 3.7 X10^3/uL (2.0-7.7); Basophil# 0.02 X10^3/uL; Basophil% 0.3 % (0-1); Eosinophil# 0.05 X10^3/uL; Eosinophils% 0.8 % (0-5); Hematocrit 33.1 % (37-47); Hemoglobin 11.4 g/dl (12.0-15.0); Lymphocyte # 1.88 X10^3/ul (4.0); Lymphocyte % 30.9 % (19-41); Mean Corp Hgb Conc 34.4 g/gl (32-36); Mean Corpuscular Hgb 32.1 pg (27.0-32.0); Mean Corpuscular Volume 93.2 fL (81-99); Mean Platelet Vol. 9.4 fl (6.2-12.0); Monocyte# 0.37 X10^3/uL; Monocyte% 6.1 % (0-10); Neutrophil # 3.74 X10^3/uL (2.7-7.7); Neutrophil % 61.6 % (47-70); Platelet Count 305 K/mm3 (150-450); RBC Distribution Width CV 12.4 % (11.6-14.6); RBC Distribution Width SD 40.6 fl (35.1-43.9); Red Blood Count 3.55 M/mm3 (4.2-5.4); White Blood Count 6.1 K/mm3 (4.4-11.0)
[2017-09-13 08:12] LABS: POSITIVE COUNT NO; POSITIVE DIFFERENTIAL NO; POSITIVE MORPHOLOGY NO
[2017-09-13 08:29] LABS: ALB/GLOB Ratio 0.9 RATIO (0.9-2.4); AST(SGOT) 9 U/L (15-37); Alanine Aminotransfer ALT/SGPT 20 U/L (13-56); Albumin, Serum 3.5 g/dL (3.2-5.0); Alkaline Phosphatase 87 U/L (45-117); Anion Gap 8 (5-15); BUN 30 mg/dL (7-18); BUN/Creat Ratio 39.3 RATIO (10-20); Calcium,Total 9.1 mg/dL (8.5-10.1); Chloride 98 mmol/L (98-107); Creatinine, Serum 0.76 mg/dL (0.55-1.02); EST Glomerular Filtration Rate 86 mL/min (>60); Est Glom Filt Rate - Afr Amer 104 mL/min (>60); Globulin 3.9 g/dL (2.2-4.2); Glucose 340 mg/dL (74-106); Magnesium 1.5 mg/dL (1.6-2.6); Potassium 3.8 mmol/L (3.5-5.1); Protein, Total 7.4 g/dL (6.4-8.2); Sodium Level 135 mmol/L (136-145)
== END 2017-09-13 07:00 | disposition home or self-care (01) ==
LOC: LAB 06:29
PROVIDERS: Family Provider Family Medicine; PCP Family Medicine; Visit Provider Internal Medicine Hematology & Oncology
DX: C50.411 Malignant neoplasm of upper-outer quadrant of right female breast (principal); Z17.1 Estrogen receptor negative status [ER-]
CPT/HCPCS: 36415; 80053; 83735; 85025

== ENCOUNTER 2017-10-04 08:15 | Outpatient (RCR) | payer OTHER, SELFPAY ==
[2017-10-04 09:22] LABS: Absolute Lymphocyte Count 1.74 X10^3/ul (0.83-4.51); Absolute Neutrophil Count 2.8 X10^3/uL (2.0-7.7); Basophil# 0.01 X10^3/uL; Basophil% 0.2 % (0-1); Eosinophil# 0.05 X10^3/uL; Hemoglobin 10.6 g/dl (12.0-15.0); Lymphocyte # 1.74 X10^3/ul (4.0); Lymphocyte % 35.5 % (19-41); Mean Corp Hgb Conc 33.1 g/gl (32-36); Mean Corpuscular Hgb 31.4 pg (27.0-32.0); Mean Corpuscular Volume 94.7 fL (81-99); Monocyte# 0.26 X10^3/uL; Monocyte% 5.3 % (0-10); Neutrophil # 2.84 X10^3/uL (2.7-7.7); Platelet Count 304 K/mm3 (150-450); RBC Distribution Width SD 44.9 fl (35.1-43.9); Red Blood Count 3.38 M/mm3 (4.2-5.4); White Blood Count 4.9 K/mm3 (4.4-11.0)
[2017-10-04 09:23] LABS: POSITIVE COUNT NO; POSITIVE DIFFERENTIAL NO; POSITIVE MORPHOLOGY NO
[2017-10-04 09:55] LABS: ALB/GLOB Ratio 0.9 RATIO (0.9-2.4); AST(SGOT) 11 U/L (15-37); Alanine Aminotransfer ALT/SGPT 22 U/L (13-56); Albumin, Serum 3.4 g/dL (3.2-5.0); Alkaline Phosphatase 82 U/L (45-117); Anion Gap 5 (5-15); BUN 26 mg/dL (7-18); BUN/Creat Ratio 40.3 RATIO (10-20); Calcium,Total 8.8 mg/dL (8.5-10.1); Chloride 103 mmol/L (98-107); Creatinine, Serum 0.64 mg/dL (0.55-1.02); EST Glomerular Filtration Rate 104 mL/min (>60); Est Glom Filt Rate - Afr Amer 126 mL/min (>60); Globulin 3.9 g/dL (2.2-4.2); Glucose 191 mg/dL (74-106); Magnesium 1.7 mg/dL (1.6-2.6); Protein, Total 7.3 g/dL (6.4-8.2); Sodium Level 138 mmol/L (136-145)
== END 2017-10-04 09:00 | disposition home or self-care (01) ==
LOC: LAB 08:15
PROVIDERS: Family Provider Family Medicine; PCP Family Medicine; Visit Provider Internal Medicine Hematology & Oncology
DX: C50.411 Malignant neoplasm of upper-outer quadrant of right female breast (principal); Z17.1 Estrogen receptor negative status [ER-]; G62.9 Polyneuropathy, unspecified
CPT/HCPCS: 36415; 80053; 83735; 85025

== ENCOUNTER → 2017-10-05 14:56 | Outpatient (CLI) | payer OTHER, SELFPAY ==
--- NOTE | 2017-10-05 15:00 | CT_ITS ---
STUDY: CT SOFT TISSUE NECK WITH CONTRAST REASON FOR EXAM: Female, 47 years old. Stage 4 invasive breast cancer, enlarging lump right anterior lower neck (marked with BB). Power Port with chemotherapy. RADIATION DOSAGE (If Supplied By Facility): CTDIvol = ( 23.83 ) mGy, DLP = ( 3310.67 ) mGycm TECHNIQUE: The patient was scanned in a multi-detector CT scanner. High resolution transaxial imaging was performed following intravenous administration of 100mL ml of Isovue 300 contrast material. Sagittal and coronal images were reconstructed. Individualized dose optimization techniques were used for this CT. COMPARISON: None. FINDINGS: Normal bilateral parotid glands. Normal bilateral rn progressive care spaces. Normal bilateral parapharyngeal spaces. Normal bilateral carotid spaces. There is a left Port-A-Cath and/or mediport in place. The tip is in the superior vena cava. Normal bilateral sublingual and submandibular glands and spaces. Normal visualized nasopharynx. Normal retropharyngeal space. Normal perivertebral space. Normal visualized bilateral faucial tonsils. The visualized tongue, tongue base and oropharynx are normal. Abnormal enhancing right supraclavicular lymph node measuring 26 x 20 x 22 mm. Normal epiglottis, bilateral vallecula and hypopharynx. The pre-epiglottic and paraglottic adipose spaces are normal. Normal visualized bilateral piriform sinuses, aryepiglottic folds, vocal cords, and arytenoid-cricoid articulations. Normal subglottic trachea. Normal bilateral lobes of the thyroid gland. Normal visualized pulmonary apices. Normal visualized paranasal sinuses. There is multilevel degenerative changes of the cervical spine. CT/Soft Tissue Neck WITH Contrast IMPRESSION: Abnormal right supraclavicular lymph node concerning for metastatic focus. Electronically Signed: Reed Samaniego MD at 23:37 EDT , Service support ,
--- NOTE | 2017-10-05 15:19 | CT_ITS ---
STUDY: CT ABDOMEN AND PELVIS WITH CONTRAST REASON FOR EXAM: Female, 47 years old. Stage 4 invasive breast cancer, enlarging lump right anterior lower neck (marked with BB). Power Port with chemotherapy RADIATION DOSAGE (If Supplied By Facility): CTDIvol = ( 23.83 ) mGy, DLP = ( 3310.67 ) mGycm TECHNIQUE: Transaxial images were obtained from the dome of the diaphragm to the symphysis pubis with oral contrast. 100mL ml of Isovue 300 contrast was administered. Sagittal and coronal images were reconstructed. Individualized dose optimization techniques were used for this CT. COMPARISON: 5 FINDINGS: The visualized lung bases are unremarkable. The visualized portions of the heart are within normal limits. Wall thickening of the right breast suggesting a possible inflammatory breast carcinoma. Normal liver. The gallbladder is contracted. Normal spleen. Normal pancreas. Normal bilateral adrenal glands. Normal right kidney. Normal left kidney. Normal visualized stomach. Normal small intestine. Normal colon. The appendix is visualized and appears normal. There is diffuse atherosclerotic calcification of the abdominal aorta, without a demonstrated aneurysm. Normal inferior vena cava. Normal retroperitoneum. Normal urinary bladder. There is absence of the uterus consistent with a prior hysterectomy.Degenerative findings of the hips. Normal abdominal wall. There are diffuse degenerative changes of the visualized lumbar spine. CT/Abdomen/Pelvis WITH Contrast IMPRESSION: Degenerative findings of the hips. Hysterectomy changes. Wall thickening of the right breast suggesting a possible inflammatory breast carcinoma. No evidence for metastatic disease in the abdomen or pelvis. Electronically Signed: Reed Samaniego MD at 23:35 EDT , Service support ,
--- NOTE | 2017-10-05 15:27 | CT_ITS ---
STUDY: CT CHEST WITH CONTRAST REASON FOR EXAM: Female, 47 years old. Breast cancer, enlarging lump right anterior lower neck. Prior chemotherapy, right lumpectomy, hysterectomy, PowerPort. RADIATION DOSAGE (If Supplied By Facility): CTDIvol = ( 23.83 ) mGy, DLP = ( 3310.67 ) mGycm TECHNIQUE: Transaxial imaging was performed following intravenous administration of 100mL ml of Isovue 300 contrast material. Individualized dose optimization techniques were used for this CT. COMPARISON: 5.1.18 FINDINGS: There is a left Port-A-Cath and/or mediport in place. The tip is in the superior vena cava. There are degenerative changes of the shoulders. Abnormal enhancing lymph node in the right supraclavicular region measuring 26 x 15 mm. Metastatic focus should be considered. The lungs are normal. There is no demonstrated pleural abnormality. Normal heart and pericardium. Normal mediastinum. Normal hilar regions. Normal enhanced pulmonary arteries. Normal aorta arch and descending thoracic aorta. There are multi-level degenerative changes of the thoracic spine. There is no demonstrated abnormality of the visualized upper abdomen. CT/Chest WITH Contrast IMPRESSION: Abnormal enhancing lymph node in the right supraclavicular region measuring 26 x 15 mm. Metastatic focus should be considered. Electronically Signed: Reed Samaniego MD at 23:24 EDT , Service support ,
== END ==
PROVIDERS: Family Provider Family Medicine; PCP Family Medicine; Visit Provider Internal Medicine Hematology & Oncology
DX: C50.911 Malignant neoplasm of unspecified site of right female breast (principal); Z17.1 Estrogen receptor negative status [ER-]
CPT/HCPCS: 70491; 71260; 74177; Q9967; A4216

== ENCOUNTER → 2017-10-07 10:00 | Outpatient (CLI) | payer OTHER, SELFPAY ==
--- NOTE | 2017-10-07 10:03 | NM_ITS ---
CLINICAL: 47-year-old female with history of carcinoma of the breast. WHOLE BODY 99m Tc MDP RADIONUCLIDE BONE SCINTIGRAPHY COMPARISON: Previous whole body bone scintigraphy study dated 08/16/2017 FINDINGS: Following the intravenous administration of 26.0 mCi of 99m Tc MDP, whole body bone images reveal: 1. Increased radiopharmaceutical concentration remains evident in the distal sternum and newly defined in the right posterior sixth rib or medial border of the right scapula, right anterolateral 11th rib. 2. Enhanced uptake is persistently defined in the acromioclavicular and sternoclavicular compartments of both shoulders, ninth thoracic vertebra posteriorly on the left, fourth lumbar vertebra posteriorly on the left, bilateral knees, the right ankle. 3. The remaining skeletal structures are scintigraphically unremarkable with normal-appearing renal images and urinary bladder activity identified. Asymmetric increased tracer concentration is currently expressed in the greater trochanteric aspect of the left proximal femur most consistent with periostitis and/or trochanteric bursitis. NM/Bone Scan Whole Body IMPRESSION: 1. The increase in radiopharmaceutical concentration redemonstrated in the distal sternum and newly apparent in the right posterior and anterolateral ribs may represent limited skeletal metastatic disease. Plain film radiography correlation is recommended if not previously obtained. 2. Degenerative arthritis is currently expressed in the thoracic and lumbar spine, bilateral shoulders, right-left knees and right ankle articulation. 3. Overall compared to the previous whole body bone scintigraphy study dated 08/16/2017, there is no significant interval change. Persistent increased uptake noted in the distal sternum and newly identified in the right ribs may warrant further investigation with plain film radiography as described above. Electronically Signed: Clay Real DO at 12:55 EDT Tel , Service support ,
== END ==
PROVIDERS: Family Provider Family Medicine; PCP Family Medicine; Visit Provider Internal Medicine Hematology & Oncology
DX: C50.411 Malignant neoplasm of upper-outer quadrant of right female breast (principal); Z17.1 Estrogen receptor negative status [ER-]
CPT/HCPCS: 78306

== ENCOUNTER → 2017-10-10 07:50 | Outpatient (CLI) | payer OTHER, SELFPAY ==
--- NOTE | 2017-10-10 07:54 | ECHOD_ITS ---
Reason For Study: MALIGNANT NEOPLASM OF UPPER RT BREAST Procedure This was a 2D Doppler, Color Flow transthoracic echocardiogram. Exam performed in department. Left Ventricle Normal LV size. Mild concentric left ventricular hypertrophy. Left ventricular systolic function is normal. The estimated ejection fraction is 60 %. Transmitral diastolic flow velocities suggest mild (stage 1) diastolic dysfunction (reversed pattern). No regional wall motion abnormalities noted. Right Ventricle Normal RV size. Normal systolic function. Atria Normal left atrium. Normal right atrium. Mitral Valve Normal mitral valve. Tricuspid Valve Normal tricuspid valve. Mild tricuspid valve insufficiency. Pulmonary artery systolic pressure is 29 mmHg. Aortic Valve Normal aortic valve. Trisinus/trileaflet aortic valve. Pulmonic Valve Normal pulmonic valve. Great Vessels Normal aortic root. The pulmonary artery is normal size. Normal inferior vena cava. Pericardium/Pleural No pericardial effusion. MMode/2D Measurements & Calculations LVIDd: 4.1 cm IVSd: 1.2 cm Ao root diam: 3.1 cm LVIDs: 2.8 cm LVPWd: 1.3 cm LA dimension: 3.8 cm RVDd: 2.9 cm FS: 31.7 % LAV(MOD-bp): 54.0 ml EDV(MOD-sp4): 117.7 ml SV(MOD-sp4): 67.9 ml LAV(MOD-bp) Indexed: 26.7 ml/m2 ESV(MOD-sp4): 49.8 ml LAV(MOD-sp2): 55.3 ml EF(MOD-sp4): 57.7 % LAV(MOD-sp4): 52.5 ml LA A4 area: 18.1 cm2 RA A4 area: 13.9 cm2 Doppler Measurements & Calculations MV E max steve: 91.1 cm/sec Lat Peak E' Steve: 10.1 cm/sec Med Peak E' Steve: 6.8 cm/sec MV A max steve: 102.6 cm/sec E/E' lat: 9.0 E/E' med: 13.4 MV E/A: 0.89 Ao V2 max: 155.5 cm/sec LV V1 max: 93.2 cm/sec PA V2 max: 103.1 cm/sec Ao max P.7 mmHg LV V1 max P.5 mmHg TR max steve: 258.6 cm/sec TR max P.7 mmHg Interpretation Summary Normal LV size. Mild concentric left ventricular hypertrophy. Left ventricular systolic function is normal. The estimated ejection fraction is 60 %. Transmitral diastolic flow velocities suggest mild (stage 1) diastolic dysfunction (reversed pattern). Compared to prior study, there is no significant change. Ordering Physician: Clifford Barakat Referring Physician: Jacinto Person Performed By: Alexandra Ma RDCS
--- NOTE | 2017-10-10 08:50 | RAD_ITS ---
STUDY: X-RAY - LUMBAR SPINE REASON FOR EXAM: Female, 47 years old. Radiculopathy. TECHNIQUE: 5 view(s) of the lumbar spine were obtained. COMPARISON: CT of the abdomen and pelvis dated October 05, 2017 FINDINGS: Normal lumbar lordosis. There is no substantial scoliosis. There is a normal alignment of the vertebrae. There is multilevel endplate spondylosis of the lumbar vertebrae. There is multi-level degenerative disc disease with multi-level disc space narrowing. There is atherosclerotic calcification of the abdominal aorta without a demonstrated aneurysm. RAD/L/S Spine Min 4 Views IMPRESSION: Degenerative changes of the spine, as detailed above. Atherosclerosis. Electronically Signed: Jina Arciniega MD at 17:25 EDT Tel , Service support ,
--- NOTE | 2017-10-10 09:16 | NM_ITS ---
CLINICAL: 47-year-old diabetic female with reported history of clinical gastroparesis. SEMI-SOLID PHASE 99m Tc SULFUR COLLOID GASTRIC EMPTYING STUDY COMPARISON: None available FINDINGS: The patient was administered 1.0 mCi of 99m Tc sulfur colloid mixed with oatmeal and consumed per os. Image acquisitions in the anterior-posterior projections for a total of 60 minutes. There is prompt visualization of the stomach. There is no gastroesophageal reflux identified. First order kinetics are maintained throughout the duration of the acquisitions. The T1/2 linear fit was calculated to be 167.19 minutes, (Normal: 12-56 minutes). NM/Gastric Emptying Study IMPRESSION: 1. ABNORMAL 99m Tc sulfur colloid semi-solid phase (oatmeal) gastric emptying imaging examination. A. There is delayed semi-solid phase gastric emptying compared to normal controls with maintained first order kinetics throughout all components of the examination. (Tim et al, J Nucl Med Tech 38: 186, 2010). Electronically Signed: Clay Real DO at 23:46 EDT Tel , Service support ,
== END ==
PROVIDERS: Family Provider Family Medicine; PCP Family Medicine; Visit Provider Family Medicine
DX: C50.411 Malignant neoplasm of upper-outer quadrant of right female breast (principal); Z17.1 Estrogen receptor negative status [ER-]; M54.10 Radiculopathy, site unspecified; R10.84 Generalized abdominal pain
CPT/HCPCS: 72110; 78264; 93306; A9541

== ENCOUNTER → 2017-11-01 08:39 | Outpatient (CLI) | payer OTHER, SELFPAY ==
[2017-11-01 09:05] VITALS: BP 116/63; PULSE 96; RESP 16; TEMP 37.2; O2SAT 100
[2017-11-01 09:17] VITALS: BMI 30.4
[2017-11-01] MEDS: Metoclopramide 10 MG/2 ML Vial IV (09:17)
== END ==
PROVIDERS: Family Provider Family Medicine; PCP Family Medicine; Visit Provider Internal Medicine Hematology & Oncology
DX: Z51.11 Encounter for antineoplastic chemotherapy (principal); C50.411 Malignant neoplasm of upper-outer quadrant of right female breast
CPT/HCPCS: 96367; 96376; 96413; 96417; J7040; J7050; J9045; A4216; J2405; J3490; J9201

== ENCOUNTER → 2017-11-08 08:39 | Outpatient (CLI) | payer OTHER, SELFPAY ==
[2017-11-08 08:45] VITALS: BP 143/68; PULSE 96; RESP 18; TEMP 36.9; O2SAT 100; BMI 29.9
[2017-11-08] MEDS: Metoclopramide 10 MG/2 ML Vial IV (09:33)
== END ==
PROVIDERS: Family Provider Family Medicine; PCP Family Medicine; Visit Provider Internal Medicine Hematology & Oncology
DX: Z51.11 Encounter for antineoplastic chemotherapy (principal); C50.411 Malignant neoplasm of upper-outer quadrant of right female breast
CPT/HCPCS: 96367; 96376; 96413; 96417; J7040; J7050; J9045; A4216; J2405; J3490; J9201

== ENCOUNTER → 2017-11-09 13:55 | Outpatient (CLI) | payer OTHER, SELFPAY ==
--- NOTE | 2017-11-09 13:59 | VDLE_ITS ---
Reason For Study: LEG SWELLING RIGHT LEFT CFV is compressible, spontaneous, phasic, GSV is normal. competent and demonstrates normal CFV is compressible, spontaneous, phasic, augmentation. competent, and demonstrates normal Procedure augmentation. Exam performed in department. FV is compressible, spontaneous, phasic, A preliminary report was called and/or faxed competent and demonstrates normal to Dr. Barakat. augmentation. POP V is compressible, spontaneous, phasic, competent and demonstrates normal augmentation. T/P Trunk is compressible. PTV is compressible. LT PerV is compressible. Interpretation Summary Deep veins of the left lower extremity are patent and compressible segmentally. There is no evidence of left lower extremity deep vein thrombosis. Valvular competence appears intact within the proximal deep venous system on the left . The left greater saphenous vein appears patent and compressible segmentally. Ordering Physician: Clifford Barakat Referring Physician: Jacinto Person MD Performed By: Gabbie Zazueta RVT
== END ==
PROVIDERS: Family Provider Family Medicine; PCP Family Medicine; Visit Provider Internal Medicine Hematology & Oncology
DX: M79.89 Other specified soft tissue disorders (principal); C50.411 Malignant neoplasm of upper-outer quadrant of right female breast; Z17.1 Estrogen receptor negative status [ER-]; C78.02 Secondary malignant neoplasm of left lung
CPT/HCPCS: 93971

== ENCOUNTER 2017-11-14 10:40 | Outpatient (RCR) | payer OTHER, SELFPAY ==
[2017-10-31 11:52] LABS: Absolute Lymphocyte Count 1.71 X10^3/ul (0.83-4.51); Absolute Neutrophil Count 3.3 X10^3/uL (2.0-7.7); Basophil# 0.01 X10^3/uL; Basophil% 0.2 % (0-1); Eosinophil# 0.03 X10^3/uL; Eosinophils% 0.6 % (0-5); Hematocrit 33.4 % (37-47); Hemoglobin 11.6 g/dl (12.0-15.0); Lymphocyte # 1.71 X10^3/ul (4.0); Lymphocyte % 31.7 % (19-41); Mean Corp Hgb Conc 34.7 g/gl (32-36); Mean Corpuscular Hgb 32.5 pg (27.0-32.0); Mean Corpuscular Volume 93.6 fL (81-99); Mean Platelet Vol. 8.9 fl (6.2-12.0); Monocyte# 0.34 X10^3/uL; Monocyte% 6.3 % (0-10); Platelet Count 364 K/mm3 (150-450); RBC Distribution Width CV 11.2 % (11.6-14.6); RBC Distribution Width SD 37.6 fl (35.1-43.9); Red Blood Count 3.57 M/mm3 (4.2-5.4); White Blood Count 5.4 K/mm3 (4.4-11.0)
[2017-10-31 11:55] LABS: POSITIVE COUNT NO; POSITIVE DIFFERENTIAL NO; POSITIVE MORPHOLOGY NO
[2017-10-31 12:09] LABS: AST(SGOT) 13 U/L (15-37); Alanine Aminotransfer ALT/SGPT 25 U/L (13-56); Albumin, Serum 3.6 g/dL (3.2-5.0); Alkaline Phosphatase 96 U/L (45-117); Anion Gap 5 (5-15); BUN 25 mg/dL (7-18); BUN/Creat Ratio 25.8 RATIO (10-20); Calcium,Total 8.7 mg/dL (8.5-10.1); Chloride 96 mmol/L (98-107); Creatinine, Serum 0.97 mg/dL (0.55-1.02); EST Glomerular Filtration Rate 65 mL/min (>60); Est Glom Filt Rate - Afr Amer 79 mL/min (>60); Globulin 4.3 g/dL (2.2-4.2); Glucose 397 mg/dL (74-106); Potassium 4.2 mmol/L (3.5-5.1); Protein, Total 7.9 g/dL (6.4-8.2); Sodium Level 133 mmol/L (136-145)
[2017-11-07 10:57] LABS: Absolute Lymphocyte Count 1.94 X10^3/ul (0.83-4.51); Absolute Neutrophil Count 1.7 X10^3/uL (2.0-7.7); Basophil# 0.01 X10^3/uL; Basophil% 0.3 % (0-1); Eosinophil# 0.04 X10^3/uL; Eosinophils% 1.1 % (0-5); Hematocrit 31.2 % (37-47); Hemoglobin 10.4 g/dl (12.0-15.0); Lymphocyte # 1.94 X10^3/ul (4.0); Mean Corp Hgb Conc 33.3 g/gl (32-36); Mean Corpuscular Volume 93.1 fL (81-99); Mean Platelet Vol. 8.8 fl (6.2-12.0); Monocyte# 0.02 X10^3/uL; Monocyte% 0.5 % (0-10); Neutrophil # 1.65 X10^3/uL (2.7-7.7); Neutrophil % 45.1 % (47-70); Platelet Count 252 K/mm3 (150-450); RBC Distribution Width CV 11.6 % (11.6-14.6); RBC Distribution Width SD 39.4 fl (35.1-43.9); Red Blood Count 3.35 M/mm3 (4.2-5.4); White Blood Count 3.7 K/mm3 (4.4-11.0)
[2017-11-07 10:58] LABS: POSITIVE COUNT NO; POSITIVE DIFFERENTIAL NO; POSITIVE MORPHOLOGY NO
[2017-11-07 11:22] LABS: AST(SGOT) 14 U/L (15-37); Alanine Aminotransfer ALT/SGPT 24 U/L (13-56); Albumin, Serum 3.4 g/dL (3.2-5.0); Alkaline Phosphatase 84 U/L (45-117); Anion Gap 6 (5-15); BUN 17 mg/dL (7-18); BUN/Creat Ratio 28.4 RATIO (10-20); Calcium,Total 8.8 mg/dL (8.5-10.1); Chloride 101 mmol/L (98-107); EST Glomerular Filtration Rate 113 mL/min (>60); Est Glom Filt Rate - Afr Amer 137 mL/min (>60); Globulin 4.4 g/dL (2.2-4.2); Glucose 229 mg/dL (74-106); Potassium 3.7 mmol/L (3.5-5.1); Protein, Total 7.8 g/dL (6.4-8.2); Sodium Level 137 mmol/L (136-145)
[2017-11-14 11:07] LABS: Hematocrit 29.8 % (37-47); Hemoglobin 10.3 g/dl (12.0-15.0); Lymphocyte % 48.9 % (19-41); Mean Corp Hgb Conc 34.6 g/gl (32-36); Mean Corpuscular Hgb 32.6 pg (27.0-32.0); Mean Corpuscular Volume 94.3 fL (81-99); Mean Platelet Vol. 8.8 fl (6.2-12.0); Monocyte% 1.6 % (0-10); Neutrophil % 48.9 % (47-70); Platelet Count 143 K/mm3 (150-450); RBC Distribution Width CV 11.2 % (11.6-14.6); Red Blood Count 3.16 M/mm3 (4.2-5.4); White Blood Count 3.1 K/mm3 (4.4-11.0)
[2017-11-14 11:08] LABS: Absolute Lymphocyte Count 1.52 X10^3/ul (0.83-4.51); Absolute Neutrophil Count 1.5 X10^3/uL (2.0-7.7); Basophil# 0.01 X10^3/uL; Basophil% 0.3 % (0-1); Eosinophil# 0.01 X10^3/uL; Eosinophils% 0.3 % (0-5); Lymphocyte # 1.52 X10^3/ul (4.0); Monocyte# 0.05 X10^3/uL; Neutrophil # 1.52 X10^3/uL (2.7-7.7)
[2017-11-14 11:10] LABS: POSITIVE COUNT NO; POSITIVE DIFFERENTIAL NO; POSITIVE MORPHOLOGY NO
[2017-11-14 11:34] LABS: AST(SGOT) 13 U/L (15-37); Alanine Aminotransfer ALT/SGPT 25 U/L (13-56); Albumin, Serum 3.6 g/dL (3.2-5.0); Alkaline Phosphatase 89 U/L (45-117); Anion Gap 6 (5-15); BUN 27 mg/dL (7-18); BUN/Creat Ratio 32.2 RATIO (10-20); Calcium,Total 9.5 mg/dL (8.5-10.1); Chloride 98 mmol/L (98-107); Creatinine, Serum 0.84 mg/dL (0.55-1.02); EST Glomerular Filtration Rate 77 mL/min (>60); Est Glom Filt Rate - Afr Amer 93 mL/min (>60); Globulin 4.2 g/dL (2.2-4.2); Glucose 412 mg/dL (74-106); Potassium 4.2 mmol/L (3.5-5.1); Protein, Total 7.8 g/dL (6.4-8.2); Sodium Level 133 mmol/L (136-145)
== END 2017-11-14 12:00 | disposition home or self-care (01) ==
LOC: LAB 10:40
PROVIDERS: Family Provider Family Medicine; PCP Family Medicine; Visit Provider Internal Medicine Hematology & Oncology
DX: C50.411 Malignant neoplasm of upper-outer quadrant of right female breast (principal); C78.02 Secondary malignant neoplasm of left lung; Z17.1 Estrogen receptor negative status [ER-]
CPT/HCPCS: 36415; 80048; 80076; 85025

== ENCOUNTER 2017-11-16 20:32 | Emergency (ER) | payer OTHER, SELFPAY ==
[2017-11-16 20:33] VITALS: BP 159/75; PULSE 111; RESP 12; TEMP 38.1; O2SAT 99; BMI 29.9
[2017-11-16 21:01] VITALS: BP 147/98; PULSE 115; RESP 18; O2SAT 99
--- NOTE | 2017-11-16 21:01 | RAD_ITS ---
STUDY: X-RAY CHEST REASON FOR EXAM: Female, 47 years old. New fever in patient receiving chemotherapy. TECHNIQUE: 1 view COMPARISON: Prior chest radiograph of August 29, 2017. FINDINGS: Port-A-Cath ends in the distal superior vena cava. The lungs are clear and expanded. There is no demonstrated pleural abnormality. Normal size heart. Normal mediastinum and brandi. Normal visualized pulmonary arteries. Normal visualized aortic arch and descending thoracic aorta. Normal visualized thoracic spine. Normal visualized ribs, clavicles, and shoulders. There is no demonstrated abnormality of the visualized soft tissue structures of the upper abdomen. RAD/Chest 1 View (Portable) IMPRESSION: No acute cardiopulmonary findings or changes. Negative for new consolidation, focal atelectasis or a substantial pleural effusion. Port-A-Cath ends in the distal superior vena cava. Electronically Signed: Elvira Foss MD at 21:21 EDT , Service support ,
--- NOTE | 2017-11-16 21:02 | ED.VIS.GEN ---
History of Present Illness Chief Complaint: Fever Informant: Patient Onset: Yesterday Context: Gradual Onset Current Severity: Moderate Maximum Severity: Moderate Associated Symptoms: fever to 101.2, chills, fatigue. Narrative: Patient recently restarted chemotherapy for metastatic breast cancer. She has had 2 chemotherapy injections, the last one was about 8 days ago. She states she has not needed any white blood cell boosters. She denies having any cough, shortness of breath, urinary symptoms, or abdominal symptoms. - Past Medical History (1) Carcinoma of right breast metastatic to axillary lymph node Status: Chronic (2) DM (diabetes mellitus), type 2, uncontrolled with complications Status: Chronic (3) GERD (gastroesophageal reflux disease) Status: Chronic (4) HTN (hypertension) Status: Chronic (5) Hyperlipidemia Status: Chronic Past Medical History - Allergies and Home Meds Allergies/Adverse Reactions: Allergies No Known Allergies Allergy (Verified 11/16/17 20:49) Primary Care Physician: Jacinto Person MD [Primary Care Provider] - Surgical History: cataract, hysterectomy, - - Breast lumpectomy, IV port for chemo Lives: Spouse/ Significant Other Smoking Status: Former smoker - Family History Maternal Family History: Family History (Last Updated 09/07/17 @ 14:09 by Deysi Bautista) Mother Breast cancer Diabetes Aunt Skin cancer Father Heart disease Hypertension Family History: Reports: Cancer - Breast Paternal Family History: Family History (Last Updated 09/07/17 @ 14:09 by Deysi Bautista) Mother Breast cancer Diabetes Aunt Skin cancer Father Heart disease Hypertension Family History: Reports: Diabetes, High Cholesterol Sibling Family History: Family History (Last Updated 09/07/17 @ 14:09 by Deysi Bautista) Mother Breast cancer Diabetes Aunt Skin cancer Father Heart disease Hypertension Family History: Reports: No pertinent history Review of Systems All systems negative except as indicated General: Reports: Chills, Fever, Malaise Physical Exam Vital Signs/Narrative: Vital Signs Temp Pulse Resp BP Pulse Ox 11/16/17 20:33 100.6 F H 111 H 112 H 159/75 H 99 Inital Vital Signs reviewed: Yes General: Well nourished, Well developed Head: Normocephalic, Atraumatic Eyes: Perrl, EOMI ENT: Moist mucous membranes, No rhinorrhea Neck: Supple, Nontender, No lymphadenopathy Cardiovascular: Regular rate, Regular rhythm, No murmurs Respiratory: No distress, CTA bilaterally, Chest nontender Abdomen: Soft, Nontender, Nondistended, Normal bowel sounds Back: Nontender, Normal Inspection Extremities: Nontender, No edema Skin: Normal color, No rash Neurological: Alert, Oriented x3, Cranial nerves II-XII grossly intact, Normal Strength, Normal Sensation Psychological: Normal affect Diagnostic/Tx/Re-eval Impressions Chest X-Ray 11/16/17 21:01 IMPRESSION: No acute cardiopulmonary findings or changes. Negative for new consolidation, focal atelectasis or a substantial pleural effusion. Port-A-Cath ends in the distal superior vena cava. Electronically Signed: Elvira Foss MD at 21:21 EDT , Service support , 11/16/17 21:01 Chest 1 View (Portable) [RAD] Stat Laboratory Results 11/16/17 11/16/17 11/16/17 Range/Units 21:01 21:01 22:00 WBC 5.9 (4.4-11.0) K/mm3 RBC 2.97 L (4.2-5.4) M/mm3 Hgb 9.3 L (12.0-15.0) g/dl Hct 27.7 L (37-47) % MCV 93.3 (81-99) fL MCH 31.3 (27.0-32.0) pg MCHC 33.6 (32-36) g/gl RDW 12.0 (11.6-14.6) % RDW Differential 40.5 (35.1-43.9) fl Plt Count 94 L (150-450) K/mm3 MPV 8.7 (6.2-12.0) fl Immature Gran % (Auto) 0.000 (0.0-0.9) % Neut % (Auto) 67.6 (47-70) % Lymph % (Auto) 26.1 (19-41) % [place] % (Auto) 5.4 (0-10) % Eos % (Auto) 0.7 (0-5) % Baso % (Auto) 0.2 (0-1) % Absolute Neuts (auto) 4.0 (2.0-7.7) X10^3/uL Absolute Lymphs (auto) 1.55 (0.83-4.51) X10^3/ul Total Counted Not Reportable Sodium 138 (136-145) mmol/L Potassium 4.0 (3.5-5.1) mmol/L Chloride 101 (98-107) mmol/L Carbon Dioxide 30.0 (21.0-32.0) mmol/L Anion Gap 7 (5-15) BUN 27 H (7-18) mg/dL Creatinine 0.92 (0.55-1.02) mg/dL Estim Creat Clear Calc 75.44 ml/min Est GFR (MDRD) Af Amer 84 (>60) mL/min Est GFR (MDRD) Non-Af 69 (>60) mL/min BUN/Creatinine Ratio 29.4 H (10-20) RATIO Glucose 244 H (74-106) mg/dL Calcium 8.5 (8.5-10.1) mg/dL Total Bilirubin 0.20 (0.20-1.00) mg/dL AST 8 L (15-37) U/L ALT 18 (13-56) U/L Alkaline Phosphatase 90 (45-117) U/L Total Protein 7.7 (6.4-8.2) g/dL Albumin 3.2 (3.2-5.0) g/dL Globulin 4.5 H (2.2-4.2) g/dL Albumin/Globulin Ratio 0.7 L (0.9-2.4) RATIO Urine Color Yellow (Yellow) Urine Clarity Clear (Clear) Urine pH 6.0 (5.0 - 8.0) Ur Specific [place] 1.015 (1.002-1.030) Urine Protein 100 H (Negative) mg/dl Urine Glucose (UA) 1000 H (Normal) mg/dl Urine Ketones 5 H (Negative) mg/dl Urine Occult Blood 25 H (Negative) /ul Urine Nitrite Negative (Negative) Urine Bilirubin Negative (Negative) mg/dL Urine Urobilinogen Normal (Normal) mg/dl Ur Leukocyte Esterase 25 H (Negative) /ul Urine RBC 0-5 SEEN (0-5) /hpf Urine WBC 0-5 SEEN (0-5) /hpf Ur Squamous Epith Cells 0-5 SEEN (5-10) /hpf Urine Bacteria 0 SEEN (None Seen) /hpf Urine Mucus 0 SEEN (<or=2+) /hpf - Medical Decision Making Labs are all normal, including a white blood count of 5.9 with no shift. Urinalysis shows no infection, chest x-ray is unremarkable. Prior to receiving Tylenol for her fever, her temperature actually went up to 102.2, she received a Tylenol, it then came down to 101. I discussed with Dr. Dhillon, who recommends no antibiotics at this time. Blood cultures were obtained, he recommends treating her fever at home as needed and following up with her oncologist in the office. ED Disposition - Plan for ED Patient: Disposition: Home or Assisted Living Chief Complaint: Fever Diagnosis: Fever and chills, Acquired immunocompromised state, Metastatic breast cancer Instructions: ED Fever Unconf Cause Referrals: Jacinto Person MD [Primary Care Provider] - Clifford Barakat DO [STAFF PHYSICIAN] - 3-5 Days
[2017-11-16 21:04] VITALS: TEMP 39
[2017-11-16] MEDS: Acetaminophen 500 MG Tablet 1000 MG PO (21:06)
[2017-11-16 21:12] LABS: Absolute Lymphocyte Count 1.55 X10^3/ul (0.83-4.51); Basophil# 0.01 X10^3/uL; Basophil% 0.2 % (0-1); Eosinophil# 0.04 X10^3/uL; Eosinophils% 0.7 % (0-5); Hematocrit 27.7 % (37-47); Hemoglobin 9.3 g/dl (12.0-15.0); Lymphocyte # 1.55 X10^3/ul (4.0); Lymphocyte % 26.1 % (19-41); Mean Corp Hgb Conc 33.6 g/gl (32-36); Mean Corpuscular Hgb 31.3 pg (27.0-32.0); Mean Corpuscular Volume 93.3 fL (81-99); Mean Platelet Vol. 8.7 fl (6.2-12.0); Monocyte# 0.32 X10^3/uL; Monocyte% 5.4 % (0-10); Neutrophil # 4.02 X10^3/uL (2.7-7.7); Neutrophil % 67.6 % (47-70); Platelet Count 94 K/mm3 (150-450); RBC Distribution Width SD 40.5 fl (35.1-43.9); Red Blood Count 2.97 M/mm3 (4.2-5.4); White Blood Count 5.9 K/mm3 (4.4-11.0)
[2017-11-16 21:14] LABS: POSITIVE COUNT NO; POSITIVE DIFFERENTIAL NO; POSITIVE MORPHOLOGY NO
[2017-11-16 21:41] LABS: ALB/GLOB Ratio 0.7 RATIO (0.9-2.4); AST(SGOT) 8 U/L (15-37); Alanine Aminotransfer ALT/SGPT 18 U/L (13-56); Albumin, Serum 3.2 g/dL (3.2-5.0); Alkaline Phosphatase 90 U/L (45-117); Anion Gap 7 (5-15); BUN 27 mg/dL (7-18); BUN/Creat Ratio 29.4 RATIO (10-20); Calcium,Total 8.5 mg/dL (8.5-10.1); Chloride 101 mmol/L (98-107); Creatinine, Serum 0.92 mg/dL (0.55-1.02); EST Glomerular Filtration Rate 69 mL/min (>60); Est Glom Filt Rate - Afr Amer 84 mL/min (>60); Estimated Creatinine Clearance 75.44 ml/min; Globulin 4.5 g/dL (2.2-4.2); Glucose 244 mg/dL (74-106); Protein, Total 7.7 g/dL (6.4-8.2); Sodium Level 138 mmol/L (136-145)
[2017-11-16 22:27] LABS: Bacteria 0 SEEN /hpf (None Seen); Mucous, Urine 0 SEEN /hpf (<or=2+)
[2017-11-16 22:40] LABS: Color, Urine Yellow (Yellow); Glucose, Dipstick 1000 mg/dl (Normal); Ketone-Dipstick 5 mg/dl (Negative); Leukocyte Esterase-Dipstick 25 /ul (Negative); Nitrite-Dipstick Negative (Negative); Occult Blood-Urine 25 /ul (Negative); Protein-Dipstick 100 mg/dl (Negative); Specific Gravity, Urine 1.015 (1.002-1.030); Urine Bilirubin Dipstick Negative (Negative); Urine Clarity Clear (Clear); Urine Urobilinogen Normal (Normal)
[2017-11-16 22:45] VITALS: TEMP 38.4
[2017-11-16 22:46] LABS: Red Blood Cells-Urine 0-5 SEEN /hpf (0-5); Squamous Epithelial Cells - UA 0-5 SEEN /hpf (5-10); White Blood Cells 0-5 SEEN /hpf (0-5)
[2017-11-17 00:05] VITALS: BP 127/49; PULSE 106; RESP 16; RESP 18; O2SAT 98; O2SAT 99
--- NOTE | 2017-11-17 00:06 | ED.RN ---
PORT FLUSHED WITH 10ML OF NS AND THEN 5ML OF HEPARIN. PORT DC.
== END 2017-11-17 00:09 | disposition home or self-care (01) ==
PROVIDERS: Emergency Provider Emergency Medicine; Family Provider Family Medicine; PCP Family Medicine
DX: R50.9 Fever, unspecified (principal); D89.9 Disorder involving the immune mechanism, unspecified; C50.911 Malignant neoplasm of unspecified site of right female breast; C77.3 Secondary and unspecified malignant neoplasm of axilla and upper limb lymph nodes; E11.65 Type 2 diabetes mellitus with hyperglycemia; K21.9 Gastro-esophageal reflux disease without esophagitis; I10 Essential (primary) hypertension; E78.5 Hyperlipidemia, unspecified; Z79.4 Long term (current) use of insulin; Z79.84 Long term (current) use of oral hypoglycemic drugs; Z79.899 Other long term (current) drug therapy; Z87.891 Personal history of nicotine dependence
CPT/HCPCS: 36591; 71045; 80053; 81001; 85025; 87040; 99283

== ENCOUNTER → 2017-11-22 08:26 | Outpatient (CLI) | payer OTHER, SELFPAY ==
[2017-11-22 08:42] VITALS: BP 146/63; PULSE 95; RESP 16; TEMP 37.2; O2SAT 99; BMI 30.2
[2017-11-22] MEDS: Metoclopramide 10 MG/2 ML Vial IV (09:57)
== END ==
PROVIDERS: Family Provider Family Medicine; PCP Family Medicine; Visit Provider Internal Medicine Hematology & Oncology
DX: Z51.11 Encounter for antineoplastic chemotherapy (principal); C50.411 Malignant neoplasm of upper-outer quadrant of right female breast; Z17.1 Estrogen receptor negative status [ER-]; C78.02 Secondary malignant neoplasm of left lung
CPT/HCPCS: 96367; 96376; 96413; 96417; J7040; J7050; J9045; J2405; J3490; J9201

== ENCOUNTER → 2017-11-29 08:28 | Outpatient (CLI) | payer OTHER, SELFPAY ==
[2017-11-29 09:11] VITALS: BP 139/70; PULSE 88; RESP 14; TEMP 37.1
[2017-11-29] MEDS: Metoclopramide 10 MG/2 ML Vial IV (09:22)
== END ==
PROVIDERS: Family Provider Family Medicine; PCP Family Medicine; Visit Provider Internal Medicine Hematology & Oncology
DX: Z51.11 Encounter for antineoplastic chemotherapy (principal); C50.411 Malignant neoplasm of upper-outer quadrant of right female breast
CPT/HCPCS: 96367; 96376; 96413; 96417; J7040; J7050; J9045; A4216; J2405; J3490; J9201

== ENCOUNTER → 2017-12-06 08:27 | Outpatient (CLI) | payer OTHER, SELFPAY | PROVIDERS: Family Provider Family Medicine; PCP Family Medicine; Visit Provider Internal Medicine Hematology & Oncology | DX: C50.411 Malignant neoplasm of upper-outer quadrant of right female breast (principal); Z17.1 Estrogen receptor negative status [ER-] | CPT/HCPCS: 78306 ==

== ENCOUNTER → 2017-12-08 10:28 | Outpatient (CLI) | payer OTHER, SELFPAY | PROVIDERS: Family Provider Family Medicine; PCP Family Medicine; Visit Provider Internal Medicine Hematology & Oncology | DX: C50.411 Malignant neoplasm of upper-outer quadrant of right female breast (principal); Z17.1 Estrogen receptor negative status [ER-]; C78.02 Secondary malignant neoplasm of left lung | CPT/HCPCS: 70491; 71260; 74177; Q9967; A4216 ==

== ENCOUNTER 2017-12-09 09:35 | Outpatient (RCR) | payer OTHER, SELFPAY ==
[2017-11-22 07:43] LABS: Absolute Lymphocyte Count 0.78 X10^3/ul (0.83-4.51); Absolute Neutrophil Count 1.6 X10^3/uL (2.0-7.7); Basophil# 0.01 X10^3/uL; Basophil% 0.3 % (0-1); Eosinophil# 0.06 X10^3/uL; Eosinophils% 2.1 % (0-5); Hematocrit 25.7 % (37-47); Hemoglobin 8.6 g/dl (12.0-15.0); Lymphocyte # 0.78 X10^3/ul (4.0); Mean Corp Hgb Conc 33.5 g/gl (32-36); Mean Corpuscular Hgb 31.7 pg (27.0-32.0); Mean Corpuscular Volume 94.8 fL (81-99); Mean Platelet Vol. 9.3 fl (6.2-12.0); Monocyte# 0.47 X10^3/uL; Monocyte% 16.3 % (0-10); Neutrophil # 1.56 X10^3/uL (2.7-7.7); Platelet Count 365 K/mm3 (150-450); RBC Distribution Width CV 11.3 % (11.6-14.6); RBC Distribution Width SD 37.6 fl (35.1-43.9); Red Blood Count 2.71 M/mm3 (4.2-5.4); White Blood Count 2.9 K/mm3 (4.4-11.0)
[2017-11-22 07:44] LABS: POSITIVE COUNT NO; POSITIVE DIFFERENTIAL NO; POSITIVE MORPHOLOGY NO
[2017-11-22 08:14] LABS: AST(SGOT) 17 U/L (15-37); Alanine Aminotransfer ALT/SGPT 27 U/L (13-56); Albumin, Serum 2.3 g/dL (3.2-5.0); Alkaline Phosphatase 86 U/L (45-117); Anion Gap 7 (5-15); BUN 18 mg/dL (7-18); BUN/Creat Ratio 28.5 RATIO (10-20); Bilirubin, Direct 0.07 mg/dL (0.00-0.30); Calcium,Total 8.6 mg/dL (8.5-10.1); Chloride 99 mmol/L (98-107); Creatinine, Serum 0.63 mg/dL (0.55-1.02); EST Glomerular Filtration Rate 107 mL/min (>60); Est Glom Filt Rate - Afr Amer 129 mL/min (>60); Glucose 266 mg/dL (74-106); Potassium 3.6 mmol/L (3.5-5.1); Protein, Total 7.3 g/dL (6.4-8.2); Sodium Level 138 mmol/L (136-145)
[2017-11-28 10:15] LABS: Absolute Neutrophil Count 1.3 X10^3/uL (2.0-7.7); Eosinophil# 0.01 X10^3/uL; Eosinophils% 0.3 % (0-5); Hematocrit 29.8 % (37-47); Hemoglobin 9.9 g/dl (12.0-15.0); Lymphocyte % 52.1 % (19-41); Mean Corp Hgb Conc 33.2 g/gl (32-36); Mean Corpuscular Hgb 30.4 pg (27.0-32.0); Mean Corpuscular Volume 91.4 fL (81-99); Mean Platelet Vol. 8.4 fl (6.2-12.0); Monocyte# 0.17 X10^3/uL; Monocyte% 5.5 % (0-10); Neutrophil # 1.29 X10^3/uL (2.7-7.7); Neutrophil % 42.1 % (47-70); Platelet Count 359 K/mm3 (150-450); RBC Distribution Width SD 39.6 fl (35.1-43.9); Red Blood Count 3.26 M/mm3 (4.2-5.4); White Blood Count 3.1 K/mm3 (4.4-11.0)
[2017-11-28 10:17] LABS: POSITIVE COUNT NO; POSITIVE DIFFERENTIAL NO; POSITIVE MORPHOLOGY NO
[2017-11-28 10:54] LABS: AST(SGOT) 16 U/L (15-37); Alanine Aminotransfer ALT/SGPT 30 U/L (13-56); Albumin, Serum 3.1 g/dL (3.2-5.0); Alkaline Phosphatase 105 U/L (45-117); Anion Gap 10 (5-15); BUN 19 mg/dL (7-18); BUN/Creat Ratio 24.2 RATIO (10-20); Bilirubin, Direct 0.06 mg/dL (0.00-0.30); Calcium,Total 10.1 mg/dL (8.5-10.1); Chloride 97 mmol/L (98-107); Creatinine, Serum 0.78 mg/dL (0.55-1.02); EST Glomerular Filtration Rate 83 mL/min (>60); Est Glom Filt Rate - Afr Amer 101 mL/min (>60); Globulin 5.6 g/dL (2.2-4.2); Glucose 420 mg/dL (74-106); Potassium 4.2 mmol/L (3.5-5.1); Protein, Total 8.7 g/dL (6.4-8.2); Sodium Level 138 mmol/L (136-145)
[2017-12-09 11:26] LABS: Hematocrit 26.4 % (37-47); Hemoglobin 8.7 g/dl (12.0-15.0); Platelet Count 161 K/mm3 (150-450); RBC Distribution Width CV 12.8 % (11.6-14.6); RBC Distribution Width SD 39.8 fl (35.1-43.9); Red Blood Count 2.81 M/mm3 (4.2-5.4)
[2017-12-09 11:27] LABS: Basophil% 0.2 % (0-1); Eosinophils% 0.4 % (0-5); Lymphocyte % 28.6 % (19-41); Mean Platelet Vol. 9.6 fl (6.2-12.0); Neutrophil # 2.97 X10^3/uL (2.7-7.7); Neutrophil % 59.4 % (47-70); POSITIVE COUNT NO; POSITIVE DIFFERENTIAL NO; POSITIVE MORPHOLOGY NO
[2017-12-09 11:28] LABS: Absolute Lymphocyte Count 1.43 X10^3/ul (0.83-4.51); Basophil# 0.01 X10^3/uL; Eosinophil# 0.02 X10^3/uL; Lymphocyte # 1.43 X10^3/ul (4.0); Monocyte# 0.55 X10^3/uL
[2017-12-09 11:49] LABS: AST(SGOT) 9 U/L (15-37); Alanine Aminotransfer ALT/SGPT 18 U/L (13-56); Alkaline Phosphatase 92 U/L (45-117); Anion Gap 9 (5-15); BUN 22 mg/dL (7-18); BUN/Creat Ratio 39.8 RATIO (10-20); Bilirubin, Direct 0.06 mg/dL (0.00-0.30); Calcium,Total 8.9 mg/dL (8.5-10.1); Chloride 102 mmol/L (98-107); Creatinine, Serum 0.55 mg/dL (0.55-1.02); EST Glomerular Filtration Rate 124 mL/min (>60); Est Glom Filt Rate - Afr Amer 150 mL/min (>60); Globulin 4.5 g/dL (2.2-4.2); Glucose 165 mg/dL (74-106); Protein, Total 7.5 g/dL (6.4-8.2); Sodium Level 138 mmol/L (136-145)
== END 2017-12-19 08:00 | disposition home or self-care (01) ==
LOC: LAB 09:35
PROVIDERS: Family Provider Family Medicine; PCP Family Medicine; Visit Provider Internal Medicine Hematology & Oncology
DX: C50.411 Malignant neoplasm of upper-outer quadrant of right female breast (principal); C78.02 Secondary malignant neoplasm of left lung; Z17.1 Estrogen receptor negative status [ER-]
CPT/HCPCS: 36415; 80048; 80076; 85025

== ENCOUNTER → 2017-12-13 07:57 | Outpatient (CLI) | payer OTHER, SELFPAY ==
[2017-12-13 08:09] VITALS: BP 155/76; PULSE 97; RESP 16; TEMP 36.9; O2SAT 100
[2017-12-13 08:29] VITALS: BMI 29.9
[2017-12-13] MEDS: Metoclopramide 10 MG/2 ML Vial IV (08:40)
== END ==
PROVIDERS: Family Provider Family Medicine; PCP Family Medicine; Visit Provider Internal Medicine Hematology & Oncology
DX: Z51.11 Encounter for antineoplastic chemotherapy (principal); C50.411 Malignant neoplasm of upper-outer quadrant of right female breast
CPT/HCPCS: 96367; 96375; 96413; 96417; J7040; J7050; J9045; A4216; J2405; J3490; J9201

== ENCOUNTER → 2017-12-20 08:14 | Outpatient (CLI) | payer OTHER, SELFPAY ==
[2017-12-20 08:35] VITALS: BP 148/72; PULSE 93; RESP 18; TEMP 36.9; O2SAT 100; BMI 29.5
[2017-12-20] MEDS: Metoclopramide 10 MG/2 ML Vial IV (09:06)
[2017-12-20] MEDS: proMETHazine 25 MG/ML Syringe 12.5 MG IV (10:53)
== END ==
PROVIDERS: Family Provider Family Medicine; PCP Family Medicine; Visit Provider Internal Medicine Hematology & Oncology
DX: C50.411 Malignant neoplasm of upper-outer quadrant of right female breast (principal)
CPT/HCPCS: 96367; 96375 ×2; 96413; 96417; J7040; J7050; J9045; A4216; J2405; J3490; J9201

== ENCOUNTER 2018-01-03 06:09 | Outpatient (RCR) | payer OTHER, SELFPAY ==
[2017-12-20 06:51] LABS: Absolute Lymphocyte Count 2.23 X10^3/ul (0.83-4.51); Absolute Neutrophil Count 1.2 X10^3/uL (2.0-7.7); Basophil# 0.03 X10^3/uL; Basophil% 0.8 % (0-1); Eosinophil# 0.03 X10^3/uL; Eosinophils% 0.8 % (0-5); Hematocrit 27.1 % (37-47); Lymphocyte # 2.23 X10^3/ul (4.0); Lymphocyte % 58.5 % (19-41); Mean Corp Hgb Conc 33.2 g/gl (32-36); Mean Corpuscular Hgb 31.1 pg (27.0-32.0); Mean Corpuscular Volume 93.8 fL (81-99); Mean Platelet Vol. 8.4 fl (6.2-12.0); Monocyte# 0.34 X10^3/uL; Monocyte% 8.9 % (0-10); Neutrophil # 1.16 X10^3/uL (2.7-7.7); Neutrophil % 30.5 % (47-70); Platelet Count 360 K/mm3 (150-450); RBC Distribution Width CV 13.2 % (11.6-14.6); RBC Distribution Width SD 42.8 fl (35.1-43.9); Red Blood Count 2.89 M/mm3 (4.2-5.4); White Blood Count 3.8 K/mm3 (4.4-11.0)
[2017-12-20 07:02] LABS: POSITIVE COUNT NO; POSITIVE DIFFERENTIAL NO; POSITIVE MORPHOLOGY NO
[2017-12-20 07:15] LABS: AST(SGOT) 12 U/L (15-37); Alanine Aminotransfer ALT/SGPT 23 U/L (13-56); Albumin, Serum 3.2 g/dL (3.2-5.0); Alkaline Phosphatase 100 U/L (45-117); BUN 23 mg/dL (7-18); BUN/Creat Ratio 34.3 RATIO (10-20); Calcium,Total 8.5 mg/dL (8.5-10.1); Creatinine, Serum 0.67 mg/dL (0.55-1.02); EST Glomerular Filtration Rate 99 mL/min (>60); Est Glom Filt Rate - Afr Amer 120 mL/min (>60); Globulin 4.2 g/dL (2.2-4.2); Glucose 292 mg/dL (74-106); Protein, Total 7.4 g/dL (6.4-8.2)
[2017-12-20 07:16] LABS: Anion Gap 10 (5-15); Bilirubin, Direct < 0.05 mg/dL (0.00-0.30); Chloride 101 mmol/L (98-107); Potassium 4.1 mmol/L (3.5-5.1); Sodium Level 139 mmol/L (136-145)
[2018-01-03 07:13] LABS: Absolute Lymphocyte Count 1.63 X10^3/ul (0.83-4.51); Absolute Neutrophil Count 2.2 X10^3/uL (2.0-7.7); Basophil# 0.01 X10^3/uL; Basophil% 0.2 % (0-1); Eosinophil# 0.06 X10^3/uL; Eosinophils% 1.4 % (0-5); Hematocrit 27.4 % (37-47); Hemoglobin 9.2 g/dl (12.0-15.0); Lymphocyte # 1.63 X10^3/ul (4.0); Lymphocyte % 38.4 % (19-41); Mean Corp Hgb Conc 33.6 g/gl (32-36); Mean Corpuscular Hgb 32.1 pg (27.0-32.0); Mean Corpuscular Volume 95.5 fL (81-99); Mean Platelet Vol. 9.7 fl (6.2-12.0); Monocyte# 0.32 X10^3/uL; Monocyte% 7.5 % (0-10); Neutrophil # 2.22 X10^3/uL (2.7-7.7); Neutrophil % 52.3 % (47-70); Platelet Count 149 K/mm3 (150-450); RBC Distribution Width CV 14.8 % (11.6-14.6); RBC Distribution Width SD 48.5 fl (35.1-43.9); Red Blood Count 2.87 M/mm3 (4.2-5.4); White Blood Count 4.3 K/mm3 (4.4-11.0)
[2018-01-03 07:17] LABS: POSITIVE COUNT NO; POSITIVE DIFFERENTIAL NO; POSITIVE MORPHOLOGY NO
[2018-01-03 07:48] LABS: AST(SGOT) 12 U/L (15-37); Alanine Aminotransfer ALT/SGPT 20 U/L (13-56); Albumin, Serum 3.1 g/dL (3.2-5.0); Alkaline Phosphatase 92 U/L (45-117); Anion Gap 10 (5-15); BUN 25 mg/dL (7-18); BUN/Creat Ratio 38.9 RATIO (10-20); Bilirubin, Direct 0.06 mg/dL (0.00-0.30); Calcium,Total 9.2 mg/dL (8.5-10.1); Chloride 103 mmol/L (98-107); Creatinine, Serum 0.64 mg/dL (0.55-1.02); EST Glomerular Filtration Rate 105 mL/min (>60); Est Glom Filt Rate - Afr Amer 127 mL/min (>60); Globulin 3.9 g/dL (2.2-4.2); Glucose 255 mg/dL (74-106); Potassium 3.7 mmol/L (3.5-5.1); Sodium Level 140 mmol/L (136-145)
== END 2018-01-03 08:00 | disposition home or self-care (01) ==
LOC: LAB 06:09
PROVIDERS: Family Provider Family Medicine; PCP Family Medicine; Visit Provider Internal Medicine Hematology & Oncology
DX: C50.411 Malignant neoplasm of upper-outer quadrant of right female breast (principal); C78.02 Secondary malignant neoplasm of left lung; Z17.1 Estrogen receptor negative status [ER-]
CPT/HCPCS: 36415; 80048; 80076; 85025

== ENCOUNTER → 2018-01-03 09:22 | Outpatient (CLI) | payer OTHER, SELFPAY ==
[2018-01-03 09:37] VITALS: BP 145/66; PULSE 96; RESP 16; TEMP 37.1; O2SAT 98; BMI 30.4
[2018-01-03] MEDS: Metoclopramide 10 MG/2 ML Vial IV (10:06)
== END ==
PROVIDERS: Family Provider Family Medicine; PCP Family Medicine; Visit Provider Internal Medicine Hematology & Oncology
DX: Z51.11 Encounter for antineoplastic chemotherapy (principal); C50.411 Malignant neoplasm of upper-outer quadrant of right female breast
CPT/HCPCS: 96367; 96376; 96413; 96415; J7040; J7050; J9045; A4216; J2405; J3490; J9201

== ENCOUNTER → 2018-01-06 14:40 | Outpatient (CLI) | payer OTHER, SELFPAY ==
[2018-01-06] MEDS: 0.9% Normal Saline 1,000 ML 500 ML IV (15:01)
[2018-01-06] MEDS: Metoclopramide 10 MG/2 ML Vial IV (15:01)
[2018-01-06 15:05] VITALS: BP 132/72; PULSE 121; RESP 20; TEMP 37
== END ==
PROVIDERS: Family Provider Family Medicine; PCP Family Medicine; Visit Provider Internal Medicine Hematology & Oncology
DX: E86.0 Dehydration (principal); R11.2 Nausea with vomiting, unspecified; C50.919 Malignant neoplasm of unspecified site of unspecified female breast; C79.9 Secondary malignant neoplasm of unspecified site
CPT/HCPCS: 96361 ×2; 96374; J7030; A4216

== ENCOUNTER → 2018-01-17 14:51 | Outpatient (CLI) | payer OTHER, SELFPAY ==
--- NOTE | 2018-01-17 14:55 | CT_ITS ---
STUDY: CT ABDOMEN AND PELVIS WITH CONTRAST REASON FOR EXAM: Female, 47 years old. Breast cancer RADIATION DOSAGE (If Supplied By Facility): CTDIvol = ( 14.17 ) mGy, DLP = ( 1844.11 ) mGycm TECHNIQUE: Transaxial images were obtained from the dome of the diaphragm to the symphysis pubis without oral contrast. 100CC ml of Isovue 300 contrast was administered. Sagittal and coronal images were reconstructed. Individualized dose optimization techniques were used for this CT. COMPARISON: 12/08/2017 FINDINGS: There are no calcified gallstones present. The liver is within normal limits. There are no suspicious hepatic lesions. The spleen is normal in size. The pancreas is within normal limits. The adrenal glands are within normal limits. There are no renal or ureteral stones. There is no hydronephrosis. There are no focal renal lesions. Normal visualized stomach. There is no bowel obstruction or inflammation. The appendix is visualized and appears normal. The aorta is normal in caliber. There is no abdominal or pelvic free air, free fluid, fluid collection or lymphadenopathy. There are no destructive osseous lesions. CT/Abdomen/Pelvis WITH Contrast IMPRESSION: No evidence of metastatic disease in the abdomen or pelvis. Electronically Signed: Diomedes Villagran, at 16:00 EDT Tel , Service support ,
--- NOTE | 2018-01-17 14:55 | CT_ITS ---
STUDY: CT CHEST WITH CONTRAST REASON FOR EXAM: Female, 47 years old. Breast cancer follow-up, right lumpectomy, PowerPort, hysterectomy. RADIATION DOSAGE (If Supplied By Facility): CTDIvol = ( 14.17 ) mGy, DLP = ( 1844.11 ) mGycm TECHNIQUE: Transaxial 2.5 mm imaging was performed following intravenous administration of 100 ml of Isovue 300 contrast material. Multiplanar coronal and sagittal images were reformatted. Individualized dose optimization techniques were used for this CT. COMPARISON: CT chest 12/08/2017. 10/05/2017. FINDINGS: Left anterior chest wall port via subclavian access with catheter tip in the superior vena cava. Distortion of the right axillary soft tissue and right breast parenchyma consistent with history of surgery. There is a right supraclavicular lymph nodes with enhancement measuring 1.4 x 2.2 cm, previously measuring 1.6 x 2.2 cm. Previously noted irregular opacification anterior medial right upper lobe has resolved. There is near complete resolution of interstitial prominence just superior to the right diaphragm. There is likely minor compression of parenchyma. There are no pulmonary nodules or masses within the lung parenchyma. There is no demonstrated pleural abnormality. Normal heart and pericardium. Normal mediastinum. Normal hilar regions. Normal enhanced pulmonary arteries. Normal aorta arch and descending thoracic aorta. There are multi-level degenerative changes of the thoracic spine. There are no destructive osseous lesions. Upper abdominal assessment please refer to CT abdomen and pelvis. CT/Chest WITH Contrast IMPRESSION: No significant change of right supraclavicular enhancing lymph node. No pulmonary nodules or masses within the lung parenchyma suspicious for neoplasm. No hilar or mediastinal lymphadenopathy or destructive osseous lesions. Electronically Signed: Lindsay Escobedo MD at 7:10 EDT , Service support ,
== END ==
PROVIDERS: Family Provider Family Medicine; PCP Family Medicine; Referring Provider Internal Medicine Hematology & Oncology; Visit Provider Internal Medicine Hematology & Oncology
DX: C50.919 Malignant neoplasm of unspecified site of unspecified female breast (principal); Z17.1 Estrogen receptor negative status [ER-]; C78.02 Secondary malignant neoplasm of left lung
CPT/HCPCS: 71260; 74177; Q9967; A4216

== ENCOUNTER → 2018-01-20 09:43 | Outpatient (CLI) | payer OTHER, SELFPAY ==
--- NOTE | 2018-01-20 09:45 | NM_ITS ---
CLINICAL: 47-year-old female with reported history of carcinoma of the breast. WHOLE BODY 99m Tc MDP RADIONUCLIDE BONE SCINTIGRAPHY COMPARISON: Previous whole body bone scintigraphy study dated 12/06/2017 FINDINGS: Following the intravenous administration of 24.5 mCi of 99m Tc MDP, whole body bone images reveal: 1. Mild increased radiopharmaceutical concentration persists in the right lower anterolateral chest wall-the 11th rib and distal sternum unchanged compared to the previous examination dated 12/06/2017. Newly identified increased uptake is noted in the greater trochanteric aspect of the left proximal femur. 2. Enhanced uptake is currently identified in the acromioclavicular and sternoclavicular compartments of both shoulders, sternoclavicular compartment of the right shoulder, the eighth-ninth thoracic and third lumbar vertebra, bilateral hips, both knee articulations, the right ankle. 3. The remaining skeletal structures are scintigraphically unremarkable with normal-appearing renal images and urinary bladder activity identified. NM/Bone Scan Whole Body IMPRESSION: 1. The increased radiopharmaceutical concentration redefined in the right anterolateral chest wall, 11th rib and distal sternum and currently visualized in the left proximal femur may be further investigated with plain film radiography if not previously obtained. 2. Degenerative arthritis appears evident in the bilateral shoulders, thoracic and lumbar spine, bilateral hip and knee articulations, the right ankle. 3. Compared to the previous whole body bone scintigraphy study dated 12/06/2017, the increase in tracer uptake currently identified in the greater trochanteric aspect of the left proximal femur and persistent abnormalities noted in the right anterolateral chest wall and distal sternum may be further investigated with plain radiography if not previously obtained. Otherwise, there is no significant interval change. Electronically Signed: Clay Real DO at 23:24 EDT Tel , Service support ,
== END ==
PROVIDERS: Family Provider Family Medicine; PCP Family Medicine; Referring Provider Internal Medicine Hematology & Oncology; Visit Provider Internal Medicine Hematology & Oncology
DX: C50.411 Malignant neoplasm of upper-outer quadrant of right female breast (principal); C78.02 Secondary malignant neoplasm of left lung; Z17.1 Estrogen receptor negative status [ER-]
CPT/HCPCS: 78306

== ENCOUNTER → 2018-01-24 10:06 | Outpatient (CLI) | payer OTHER, SELFPAY ==
--- NOTE | 2018-01-24 10:15 | RAD_ITS ---
STUDY: X-RAY - LEFT FEMUR REASON FOR STUDY: Female, 47 years old. History of breast carcinoma. Pain. TECHNIQUE: Radiological exam, femur, minimum 2 views COMPARISON: Bone scan dated January 20, 2018 showing slight increased radiotracer uptake in the greater trochanter of the left femur. Prior hip x-rays dated August 13, 2016. FINDINGS: There is generalized osteopenia. There is moderate arthrosis of the left hip unchanged. No lytic lesions to suggest metastases are present. There is vascular calcification. RAD/Femur Min 2 Views IMPRESSION: No lytic lesion identified. Moderate left hip arthrosis unchanged. Electronically Signed: Ruperto Sahu MD at 14:26 EDT , Service support ,
== END ==
PROVIDERS: Family Provider Family Medicine; PCP Family Medicine; Referring Provider Internal Medicine Hematology & Oncology; Visit Provider Internal Medicine Hematology & Oncology
DX: C79.51 Secondary malignant neoplasm of bone (principal); C50.411 Malignant neoplasm of upper-outer quadrant of right female breast; Z17.1 Estrogen receptor negative status [ER-]; C78.02 Secondary malignant neoplasm of left lung; M16.12 Unilateral primary osteoarthritis, left hip
CPT/HCPCS: 73552; J7030; J7040; J7050; J9045; J2405; J3490; J9201

== ENCOUNTER → 2018-01-24 11:34 | Outpatient (CLI) | payer OTHER, SELFPAY ==
--- NOTE | 2016-12-24 | IMM_PTH ---
PATIENT: VICENTA FLORES LOC: [facility] U#:[id number] AGE/SX: 54/F ROOM: RE01/24/[address]: Dr. Clifford Barakat DO : 1970 BED: DIS: SPEC #: [id number] RECD: 01/24/18 11:38 STATUS: ARTIS EZ #: [id number] SANJIV: 12/24/16 00:[address]: Clifford Barakat DEPT: IMMUNOHISTOCHEMISTRY RECD BY: Elisa Bal Tissues: Axillary lymph node, NOS Procedures: MLH-1 (add) MSH6 (add) Anti-PMS2 (add) MSH2 (initial) PHYSICIAN & INSTITUTION [place] [id number] SPECIMEN INFORMATION: Tissue Source: Right axillary contents Clinical Info: Metastatic breast tissue Specimen Number: [id number] CPT code: 94268, 99555 x3 METHODOLOGY: Deparaffinized sections of prefer/formalin-fixed tissue or PAP/DQ stained slides are incubated with monoclonal/polyclonal antibodies/oligonucleotide probes. Localization is made via biotin free immunoperoxidase method. Appropriate controls are performed and reacted as expected. Results on target cell population are indicated in the following table: RESULTS: ANTIBODY / CLONE RESULT MLH1 (M1) positive MSH2 (25D12) positive MSH6 (44) positive PMS2 ([id number]) positive These tests were developed and their performance characteristics determined by [facility]. They may not have been cleared or approved by the U.S. Food and Drug Administration. The FDA has determined that such clearance or approval is not necessary. INTERPRETATION: Right axillary lymph nodes, regional lymph adenectomy: Metastatic carcinoma. No evidence of microsatellite instability detected. AM:jeannette 01/25/18
== END ==
PROVIDERS: Visit Provider Internal Medicine Hematology & Oncology
DX: C50.919 Malignant neoplasm of unspecified site of unspecified female breast (principal); C77.3 Secondary and unspecified malignant neoplasm of axilla and upper limb lymph nodes
CPT/HCPCS: 88341; 88342

== ENCOUNTER → 2018-01-31 11:23 | Outpatient (CLI) | payer OTHER, SELFPAY ==
[2018-01-31 11:54] VITALS: BP 130/58; PULSE 97; RESP 16; TEMP 37.2; O2SAT 100; BMI 29.7
[2018-01-31] MEDS: 0.9% Normal Saline 1,000 ML 500 ML IV (12:17)
[2018-01-31] MEDS: Metoclopramide 10 MG/2 ML Vial IV (12:49)
== END ==
PROVIDERS: Referring Provider Internal Medicine Hematology & Oncology; Visit Provider Internal Medicine Hematology & Oncology
DX: Z51.11 Encounter for antineoplastic chemotherapy (principal); C50.411 Malignant neoplasm of upper-outer quadrant of right female breast; Z17.1 Estrogen receptor negative status [ER-]; C78.02 Secondary malignant neoplasm of left lung
CPT/HCPCS: 96367; 96376; 96413; J7030; J7040; J7050; J9045; A4216; J2405; J3490; J9201

== ENCOUNTER 2018-02-06 14:45 | Outpatient (RCR) | payer OTHER, SELFPAY ==
[2018-01-23 09:07] LABS: Absolute Lymphocyte Count 1.35 X10^3/ul (0.83-4.51); Absolute Neutrophil Count 1.5 X10^3/uL (2.0-7.7); Eosinophil# 0.04 X10^3/uL; Eosinophils% 1.3 % (0-5); Hemoglobin 10.3 g/dl (12.0-15.0); Lymphocyte # 1.35 X10^3/ul (4.0); Mean Corp Hgb Conc 33.2 g/gl (32-36); Mean Corpuscular Hgb 31.1 pg (27.0-32.0); Mean Corpuscular Volume 93.7 fL (81-99); Mean Platelet Vol. 9.3 fl (6.2-12.0); Monocyte# 0.28 X10^3/uL; Monocyte% 8.9 % (0-10); Neutrophil # 1.47 X10^3/uL (2.7-7.7); Neutrophil % 46.8 % (47-70); POSITIVE COUNT NO; POSITIVE DIFFERENTIAL NO; POSITIVE MORPHOLOGY NO; Platelet Count 207 K/mm3 (150-450); RBC Distribution Width CV 15.4 % (11.6-14.6); RBC Distribution Width SD 52.5 fl (35.1-43.9); Red Blood Count 3.31 M/mm3 (4.2-5.4); White Blood Count 3.1 K/mm3 (4.4-11.0)
[2018-01-23 09:37] LABS: AST(SGOT) 13 U/L (15-37); Alanine Aminotransfer ALT/SGPT 20 U/L (13-56); Albumin, Serum 3.5 g/dL (3.2-5.0); Alkaline Phosphatase 89 U/L (45-117); Anion Gap 8 (5-15); BUN 24 mg/dL (7-18); BUN/Creat Ratio 29.7 RATIO (10-20); Bilirubin, Direct 0.08 mg/dL (0.00-0.30); Calcium,Total 9.1 mg/dL (8.5-10.1); Chloride 101 mmol/L (98-107); Creatinine, Serum 0.81 mg/dL (0.55-1.02); EST Glomerular Filtration Rate 80 mL/min (>60); Est Glom Filt Rate - Afr Amer 97 mL/min (>60); Globulin 4.3 g/dL (2.2-4.2); Glucose 287 mg/dL (74-106); Potassium 3.7 mmol/L (3.5-5.1); Protein, Total 7.8 g/dL (6.4-8.2); Sodium Level 137 mmol/L (136-145)
[2018-01-31 09:33] LABS: Absolute Lymphocyte Count 1.43 X10^3/ul (0.83-4.51); Absolute Neutrophil Count 2.3 X10^3/uL (2.0-7.7); Basophil# 0.02 X10^3/uL; Basophil% 0.5 % (0-1); Eosinophil# 0.02 X10^3/uL; Eosinophils% 0.5 % (0-5); Hematocrit 32.8 % (37-47); Hemoglobin 10.8 g/dl (12.0-15.0); Lymphocyte # 1.43 X10^3/ul (4.0); Lymphocyte % 34.9 % (19-41); Mean Corp Hgb Conc 32.9 g/gl (32-36); Mean Corpuscular Volume 94.3 fL (81-99); Monocyte# 0.36 X10^3/uL; Monocyte% 8.8 % (0-10); Neutrophil # 2.27 X10^3/uL (2.7-7.7); Neutrophil % 55.3 % (47-70); Platelet Count 298 K/mm3 (150-450); RBC Distribution Width CV 14.2 % (11.6-14.6); RBC Distribution Width SD 48.6 fl (35.1-43.9); Red Blood Count 3.48 M/mm3 (4.2-5.4); White Blood Count 4.1 K/mm3 (4.4-11.0)
[2018-01-31 09:35] LABS: POSITIVE COUNT NO; POSITIVE DIFFERENTIAL NO; POSITIVE MORPHOLOGY NO
[2018-01-31 10:15] LABS: AST(SGOT) 10 U/L (15-37); Alanine Aminotransfer ALT/SGPT 22 U/L (13-56); Albumin, Serum 3.4 g/dL (3.2-5.0); Alkaline Phosphatase 100 U/L (45-117); Anion Gap 9 (5-15); BUN 25 mg/dL (7-18); BUN/Creat Ratio 31.9 RATIO (10-20); Bilirubin, Direct 0.09 mg/dL (0.00-0.30); Calcium,Total 8.9 mg/dL (8.5-10.1); Chloride 100 mmol/L (98-107); Creatinine, Serum 0.78 mg/dL (0.55-1.02); EST Glomerular Filtration Rate 83 mL/min (>60); Est Glom Filt Rate - Afr Amer 101 mL/min (>60); Globulin 4.3 g/dL (2.2-4.2); Glucose 360 mg/dL (74-106); Potassium 4.2 mmol/L (3.5-5.1); Protein, Total 7.7 g/dL (6.4-8.2); Sodium Level 138 mmol/L (136-145)
[2018-02-06 16:40] LABS: Absolute Lymphocyte Count 2.34 X10^3/ul (0.83-4.51); Basophil# 0.02 X10^3/uL; Basophil% 0.4 % (0-1); Eosinophil# 0.01 X10^3/uL; Eosinophils% 0.2 % (0-5); Hematocrit 27.8 % (37-47); Lymphocyte # 2.34 X10^3/ul (4.0); Lymphocyte % 50.4 % (19-41); Mean Corp Hgb Conc 32.4 g/gl (32-36); Mean Corpuscular Hgb 30.9 pg (27.0-32.0); Mean Corpuscular Volume 95.5 fL (81-99); Monocyte# 0.25 X10^3/uL; Monocyte% 5.4 % (0-10); Neutrophil # 2.01 X10^3/uL (2.7-7.7); Neutrophil % 43.4 % (47-70); Platelet Count 234 K/mm3 (150-450); RBC Distribution Width CV 13.7 % (11.6-14.6); RBC Distribution Width SD 47.8 fl (35.1-43.9); Red Blood Count 2.91 M/mm3 (4.2-5.4); White Blood Count 4.6 K/mm3 (4.4-11.0)
[2018-02-06 17:18] LABS: AST(SGOT) 12 U/L (15-37); Alanine Aminotransfer ALT/SGPT 20 U/L (13-56); Albumin, Serum 3.1 g/dL (3.2-5.0); Alkaline Phosphatase 110 U/L (45-117); Anion Gap 10 (5-15); BUN 26 mg/dL (7-18); BUN/Creat Ratio 27.7 RATIO (10-20); Bilirubin, Direct < 0.05 mg/dL (0.00-0.30); Calcium,Total 8.4 mg/dL (8.5-10.1); Chloride 99 mmol/L (98-107); Creatinine, Serum 0.94 mg/dL (0.55-1.02); EST Glomerular Filtration Rate 67 mL/min (>60); Est Glom Filt Rate - Afr Amer 82 mL/min (>60); Globulin 4.2 g/dL (2.2-4.2); Glucose 308 mg/dL (74-106); Protein, Total 7.3 g/dL (6.4-8.2); Sodium Level 136 mmol/L (136-145)
[2018-02-06 17:24] LABS: POSITIVE COUNT NO; POSITIVE DIFFERENTIAL NO; POSITIVE MORPHOLOGY NO
== END 2018-02-06 17:00 | disposition home or self-care (01) ==
LOC: LAB 14:45
PROVIDERS: Family Provider Family Medicine; PCP Family Medicine; Referring Provider Internal Medicine Hematology & Oncology; Visit Provider Internal Medicine Hematology & Oncology
DX: C50.411 Malignant neoplasm of upper-outer quadrant of right female breast (principal); C78.02 Secondary malignant neoplasm of left lung; Z17.1 Estrogen receptor negative status [ER-]
CPT/HCPCS: 36415; 80048; 80076; 85025

== ENCOUNTER → 2018-02-07 09:43 | Outpatient (CLI) | payer OTHER, SELFPAY ==
[2018-02-07 14:46] VITALS: BP 145/72; PULSE 96; RESP 14; TEMP 36; O2SAT 100; BMI 30.5
[2018-02-07] MEDS: 0.9% Normal Saline 1,000 ML 500 ML IV (14:50)
[2018-02-07] MEDS: Metoclopramide 10 MG/2 ML Vial IV (14:53)
== END ==
PROVIDERS: Referring Provider Internal Medicine Hematology & Oncology; Visit Provider Internal Medicine Hematology & Oncology
DX: Z51.11 Encounter for antineoplastic chemotherapy (principal); C50.411 Malignant neoplasm of upper-outer quadrant of right female breast
CPT/HCPCS: 96367; 96376; 96413; J7030; J7040; J7050; A4216; J2405; J3490; J9201

== ENCOUNTER → 2018-02-07 11:38 | Outpatient (CLI) | payer OTHER, SELFPAY ==
--- NOTE | 2018-02-07 11:42 | CT_ITS ---
STUDY: CTA CHEST/THORAX REASON FOR EXAM: Female, 47 years old. Pleuritic chest pain. RADIATION DOSAGE (If Supplied By Facility): CTDIvol = ( 14.6 ) mGy, DLP = ( 573.13 ) mGycm TECHNIQUE: The examination was performed with the intravenous administration of 100ML ml of Isovue 300 contrast material. Post-processing of the angiographic images was performed, with multiplanar reformation and 3D reconstruction. Individualized dose optimization techniques were used for this CT. COMPARISON: CT chest/thorax with contrast January 17, 2018. FINDINGS: MediPort hub in the left anterior chest wall again noted, the catheter tip in the upper right atrium Normal enhancement of the main pulmonary artery and right and left pulmonary arteries. Normal enhancement of the bilateral peripheral pulmonary arteries. There is no demonstrated pulmonary embolism. Normal thoracic aorta and visualized great vessels. There is no demonstrated aortic dissection. Normal heart and pericardium. Normal mediastinum. Normal hilar regions. Normal visualized trachea and bronchi. Mild elevation of the right diaphragm is unchanged. Curvilinear scarring in the right lung base again noted, and there is minor subsegmental volume loss in the left base. No new pulmonary infiltrate or mass. Normal pleura. Stable medial right subclavian lymph node measuring 2.25 x 1.4 x 1.6 cm. There is stable deformity of the right axilla and lateral right breast related to prior surgery. Anterior cutaneous thickening of the right breast also unchanged. There are stable multilevel degenerative changes of the thoracic spine. There is degenerative arthrosis of the left acromioclavicular joint Normal visualized upper abdomen. CT/CTA Chest W/WO Contrast IMPRESSION: 1. No demonstrated pulmonary embolism or arterial dissection. 2. Stable medial right subclavian lymph node. No other adenopathy identified. 3. Stable postsurgical changes of the right breast. 4. Stable scarring in the right lung base and minor subsegmental volume loss in the left base. No new pulmonary infiltrate or pleural reaction. 5. Left chest wall MediPort again noted, the catheter tip just below the cavoatrial junction. Electronically Signed: Steve Schmitz MD at 12:33 EDT , Service support ,
== END ==
PROVIDERS: Referring Provider Internal Medicine Hematology & Oncology; Visit Provider Internal Medicine Hematology & Oncology
DX: R07.81 Pleurodynia (principal); C50.411 Malignant neoplasm of upper-outer quadrant of right female breast; Z17.1 Estrogen receptor negative status [ER-]; C79.51 Secondary malignant neoplasm of bone
CPT/HCPCS: 71275; Q9967

== ENCOUNTER → 2018-02-10 09:25 | Outpatient (CLI) | payer OTHER, SELFPAY ==
--- NOTE | 2018-02-10 09:36 | MRI_ITS ---
STUDY: MRI LOWER EXTREMITY LEFT THIGH WITH AND WITHOUT CONTRAST REASON FOR EXAM: Female, 47 years old. Left thigh pain and swelling. Abnormal bone scan. History of breast cancer TECHNIQUE: Standardized fat and water weighted pulse sequences were obtained in all 3 orthogonal planes, post contrast administration. 10 ml of Gadavist contrast material was administered intravenously for the contrast portion of the examination. COMPARISON: X-ray January 24, 2018. Bone scan January 20, 2018 FINDINGS: Normal subcutis adipose space. Normal quadriceps, adductor and hamstring muscles. Normal quadriceps extensor mechanism with a normal rectus femoris, vastus medialis, intermedius and lateralis muscles. Normal femur. No fracture or destructive lesion. There is degenerative change of the left hip with spurring and joint space narrowing. There is enthesopathic spurring at the greater trochanter. There is suboptimal evaluation of the greater trochanteric region due to artifact associated with positioning at the edge of the scan. There is joint effusion at the knee. MRI/Lower Ext No Joint W/WO Cont IMPRESSION: There is enthesopathic spurring at the greater trochanter. There is degenerative change of the hip. There is joint effusion at the knee. There is no destruction. There is no enhancing mass. There is suboptimal evaluation of the region of abnormality on the bone scan at the greater trochanter due to positioning at the periphery of the exam. Consider dedicated examination of the hip if further imaging evaluation is required Electronically Signed: Mook Mayer MD at 11:22 EDT , Service support ,
== END ==
PROVIDERS: Family Provider Family Medicine; PCP Family Medicine; Referring Provider Internal Medicine Hematology & Oncology; Visit Provider Internal Medicine Hematology & Oncology
DX: M76.892 Other specified enthesopathies of left lower limb, excluding foot (principal); M16.12 Unilateral primary osteoarthritis, left hip; M25.462 Effusion, left knee; C50.411 Malignant neoplasm of upper-outer quadrant of right female breast; Z17.1 Estrogen receptor negative status [ER-]; C79.51 Secondary malignant neoplasm of bone
CPT/HCPCS: 73720; A9585; A4216

== ENCOUNTER → 2018-02-21 09:17 | Outpatient (CLI) | payer OTHER, SELFPAY ==
[2018-02-21 09:26] VITALS: BP 143/72; PULSE 107; RESP 15; TEMP 36.8; O2SAT 100; BMI 31.4
[2018-02-21] MEDS: 0.9% Normal Saline 1,000 ML 500 ML IV (09:36)
[2018-02-21] MEDS: Metoclopramide 10 MG/2 ML Vial IV (10:22)
--- NOTE | 2018-02-21 11:42 | NURSING ---
Pt asked NS infusion to be stopped after 500ml. Stated that she would speak to her MD about getting the amount reduced.
== END ==
PROVIDERS: Family Provider Family Medicine; PCP Family Medicine; Referring Provider Internal Medicine Hematology & Oncology; Visit Provider Internal Medicine Hematology & Oncology
DX: Z51.11 Encounter for antineoplastic chemotherapy (principal); C50.411 Malignant neoplasm of upper-outer quadrant of right female breast; Z17.1 Estrogen receptor negative status [ER-]; C78.02 Secondary malignant neoplasm of left lung
CPT/HCPCS: 96367; 96376; 96413; J7030; J7040; A4216; J2405; J3490; J9201

== ENCOUNTER → 2018-02-28 09:24 | Outpatient (CLI) | payer OTHER, SELFPAY ==
[2018-02-28 09:46] VITALS: BP 140/76; PULSE 99; RESP 16; TEMP 36.4; O2SAT 100; BMI 31.0
[2018-02-28] MEDS: 0.9% Normal Saline 1,000 ML 500 ML IV (10:00)
[2018-02-28] MEDS: LORazepam 1 MG Tablet PO (10:21)
[2018-02-28] MEDS: Metoclopramide 10 MG/2 ML Vial IV (10:47)
== END ==
PROVIDERS: Family Provider Family Medicine; PCP Family Medicine; Visit Provider Internal Medicine Hematology & Oncology
DX: Z51.11 Encounter for antineoplastic chemotherapy (principal); C50.411 Malignant neoplasm of upper-outer quadrant of right female breast
CPT/HCPCS: 96367; 96376; 96413; J7030; J7040; A4216; J2405; J3490; J9201

== ENCOUNTER 2018-03-13 10:35 | Outpatient (RCR) | payer OTHER, SELFPAY ==
[2018-02-21 08:34] LABS: Absolute Lymphocyte Count 1.49 X10^3/ul (0.83-4.51); Absolute Neutrophil Count 2.7 X10^3/uL (2.0-7.7); Basophil# 0.01 X10^3/uL; Basophil% 0.2 % (0-1); Eosinophil# 0.06 X10^3/uL; Eosinophils% 1.3 % (0-5); Hematocrit 31.2 % (37-47); Hemoglobin 10.4 g/dl (12.0-15.0); Lymphocyte # 1.49 X10^3/ul (4.0); Lymphocyte % 32.3 % (19-41); Mean Corp Hgb Conc 33.3 g/gl (32-36); Mean Corpuscular Hgb 32.3 pg (27.0-32.0); Mean Corpuscular Volume 96.9 fL (81-99); Mean Platelet Vol. 9.5 fl (6.2-12.0); Monocyte# 0.33 X10^3/uL; Monocyte% 7.2 % (0-10); Neutrophil # 2.71 X10^3/uL (2.7-7.7); Neutrophil % 58.8 % (47-70); POSITIVE COUNT NO; POSITIVE DIFFERENTIAL NO; POSITIVE MORPHOLOGY NO; Platelet Count 290 K/mm3 (150-450); RBC Distribution Width CV 13.1 % (11.6-14.6); RBC Distribution Width SD 43.9 fl (35.1-43.9); Red Blood Count 3.22 M/mm3 (4.2-5.4); White Blood Count 4.6 K/mm3 (4.4-11.0)
[2018-02-21 09:27] LABS: AST(SGOT) 11 U/L (15-37); Alanine Aminotransfer ALT/SGPT 19 U/L (13-56); Albumin, Serum 3.2 g/dL (3.2-5.0); Alkaline Phosphatase 94 U/L (45-117); Anion Gap 9 (5-15); BUN 32 mg/dL (7-18); BUN/Creat Ratio 48.4 RATIO (10-20); Bilirubin, Direct 0.06 mg/dL (0.00-0.30); Chloride 102 mmol/L (98-107); Creatinine, Serum 0.66 mg/dL (0.55-1.02); EST Glomerular Filtration Rate 101 mL/min (>60); Est Glom Filt Rate - Afr Amer 122 mL/min (>60); Globulin 4.6 g/dL (2.2-4.2); Glucose 213 mg/dL (74-106); Potassium 3.8 mmol/L (3.5-5.1); Protein, Total 7.8 g/dL (6.4-8.2); Sodium Level 140 mmol/L (136-145)
[2018-02-28 07:51] LABS: Absolute Lymphocyte Count 1.63 X10^3/ul (0.83-4.51); Absolute Neutrophil Count 2.1 X10^3/uL (2.0-7.7); Basophil# 0.01 X10^3/uL; Basophil% 0.2 % (0-1); Eosinophil# 0.03 X10^3/uL; Eosinophils% 0.7 % (0-5); Hematocrit 28.8 % (37-47); Hemoglobin 9.5 g/dl (12.0-15.0); Lymphocyte # 1.63 X10^3/ul (4.0); Lymphocyte % 38.8 % (19-41); Mean Corpuscular Hgb 31.5 pg (27.0-32.0); Mean Corpuscular Volume 95.4 fL (81-99); Mean Platelet Vol. 8.5 fl (6.2-12.0); Monocyte# 0.45 X10^3/uL; Monocyte% 10.7 % (0-10); Neutrophil # 2.07 X10^3/uL (2.7-7.7); Neutrophil % 49.4 % (47-70); Platelet Count 297 K/mm3 (150-450); RBC Distribution Width CV 11.9 % (11.6-14.6); RBC Distribution Width SD 39.8 fl (35.1-43.9); Red Blood Count 3.02 M/mm3 (4.2-5.4); White Blood Count 4.2 K/mm3 (4.4-11.0)
[2018-02-28 07:56] LABS: POSITIVE COUNT NO; POSITIVE DIFFERENTIAL NO; POSITIVE MORPHOLOGY NO
[2018-02-28 08:23] LABS: AST(SGOT) 12 U/L (15-37); Alanine Aminotransfer ALT/SGPT 24 U/L (13-56); Albumin, Serum 2.9 g/dL (3.2-5.0); Alkaline Phosphatase 104 U/L (45-117); Anion Gap 7 (5-15); BUN 23 mg/dL (7-18); BUN/Creat Ratio 29.1 RATIO (10-20); Bilirubin, Direct < 0.05 mg/dL (0.00-0.30); Calcium,Total 8.5 mg/dL (8.5-10.1); Chloride 99 mmol/L (98-107); Creatinine, Serum 0.79 mg/dL (0.55-1.02); EST Glomerular Filtration Rate 82 mL/min (>60); Est Glom Filt Rate - Afr Amer 100 mL/min (>60); Globulin 4.7 g/dL (2.2-4.2); Glucose 280 mg/dL (74-106); Protein, Total 7.6 g/dL (6.4-8.2); Sodium Level 136 mmol/L (136-145)
[2018-03-13 11:13] LABS: Absolute Lymphocyte Count 1.32 X10^3/ul (0.83-4.51); Absolute Neutrophil Count 4.2 X10^3/uL (2.0-7.7); Basophil# 0.01 X10^3/uL; Basophil% 0.2 % (0-1); Eosinophil# 0.03 X10^3/uL; Eosinophils% 0.5 % (0-5); Hematocrit 32.6 % (37-47); Hemoglobin 10.8 g/dl (12.0-15.0); Lymphocyte # 1.32 X10^3/ul (4.0); Mean Corp Hgb Conc 33.1 g/gl (32-36); Mean Corpuscular Hgb 31.1 pg (27.0-32.0); Mean Corpuscular Volume 93.9 fL (81-99); Mean Platelet Vol. 9.5 fl (6.2-12.0); Monocyte# 0.48 X10^3/uL; Neutrophil # 4.15 X10^3/uL (2.7-7.7); Neutrophil % 69.1 % (47-70); Platelet Count 282 K/mm3 (150-450); RBC Distribution Width CV 12.7 % (11.6-14.6); RBC Distribution Width SD 43.4 fl (35.1-43.9); Red Blood Count 3.47 M/mm3 (4.2-5.4)
[2018-03-13 11:16] LABS: POSITIVE COUNT NO; POSITIVE DIFFERENTIAL NO; POSITIVE MORPHOLOGY NO
[2018-03-13 11:50] LABS: AST(SGOT) 12 U/L (15-37); Alanine Aminotransfer ALT/SGPT 21 U/L (13-56); Albumin, Serum 3.1 g/dL (3.2-5.0); Alkaline Phosphatase 119 U/L (45-117); Anion Gap 12 (5-15); BUN 28 mg/dL (7-18); BUN/Creat Ratio 32.8 RATIO (10-20); Bilirubin, Direct 0.07 mg/dL (0.00-0.30); Calcium,Total 9.6 mg/dL (8.5-10.1); Chloride 100 mmol/L (98-107); Creatinine, Serum 0.85 mg/dL (0.55-1.02); EST Glomerular Filtration Rate 75 mL/min (>60); Est Glom Filt Rate - Afr Amer 91 mL/min (>60); Globulin 4.9 g/dL (2.2-4.2); Glucose 280 mg/dL (74-106); Sodium Level 140 mmol/L (136-145)
== END 2018-03-17 10:25 | disposition home or self-care (01) ==
LOC: LAB 10:35
PROVIDERS: Family Provider Family Medicine; PCP Family Medicine; Referring Provider Internal Medicine Hematology & Oncology; Visit Provider Internal Medicine Hematology & Oncology
DX: C50.411 Malignant neoplasm of upper-outer quadrant of right female breast (principal); C78.02 Secondary malignant neoplasm of left lung; Z17.1 Estrogen receptor negative status [ER-]
CPT/HCPCS: 36415; 80048; 80076; 85025

== ENCOUNTER → 2018-03-14 09:07 | Outpatient (CLI) | payer OTHER, SELFPAY ==
[2018-03-14] MEDS: 0.9% Normal Saline 1,000 ML 500 ML IV (09:15)
[2018-03-14] MEDS: Metoclopramide 10 MG/2 ML Vial IV (09:22)
[2018-03-14 09:24] VITALS: BP 140/75; PULSE 101; RESP 16; TEMP 36.4; BMI 30.2
--- OUTSIDE RECORDS SUMMARY | 2018-04-25 22:11 | XMS RPT_ITS ---
:1970 Author Organization [place] Support Name Relationship Address Phone NAZ CHACKOCA Unavailable [address] + [place] [address] TOSHIA WILOCX Unavailable [address] + [place] [address] [facility] Unavailable [address] + [place] [address] RICCO FADUMO Unavailable [address] + [place] [address] SEAMUS WILCOXE Unavailable [address] + [place] [address] [facility] Unavailable [address] + [place] [address] RICCO, FADUMO Unavailable [address] + [place] [address] KATHLEEN WILCOXLIE Unavailable [address] + [place] [address] WC Unavailable [address] + [place] [address] RICCO, FADUMO Unavailable [address] + [place] [address] KATHLEEN WILCOXLIE Unavailable [address] + [place] [address] WC Unavailable [address] + [place] [address] RICCO FADUMO Unavailable [address] + [place] [address] KATHLEEN WILCOXLIE Unavailable [address] + [place] [address] WC Unavailable [address] + [place] [address] RICCO, FADUMO Unavailable [address] + [place] [address] SEAMUS WILCOXE Unavailable [address] + [place] [address] [facility] Unavailable [address] + [place] [address] RICCO, FADUMO Unavailable [address] + [place] [address] BRENDEN TOSHIA Unavailable [address] + [place] [address] [facility] Unavailable [address] + [place] [address] RICCO, FADUMO Unavailable [address] + [place] [address] BRENDEN TOSHIA Unavailable [address] + [place] [address] [facility] Unavailable [address] + [place] [address] RICCO, FADUMO Unavailable [address] + [place] [address] KATHLEEN WILCOXLIE Unavailable [address] + [place] [address] [facility] Unavailable [address] + [place] [address] RICCO, FADUMO Unavailable [address] + [place] [address] KATHLEEN WILCOXLIE Unavailable [address] + [place] [address] [facility] Unavailable [address] + [place] [address] RICCO, FADUMO Unavailable [address] + [place] [address] BRENDEN TOSHIA Unavailable [address] + [place] [address] [facility] Unavailable [address] + [place] [address] RICCO, FADUMO Unavailable [address] + [place] [address] TOSHIA WILCOX Unavailable [address] + [place] [address] [facility] Unavailable [address] + [place] [address] RICCO, FADUMO Unavailable [address] + [place] [address] KATHLEEN WILCOXLIE Unavailable [address] + [place] [address] [facility] Unavailable [address] + [place] [address] RICCO, FADUMO Unavailable [address] + [place] [address] KATHLEEN WILCOXLIE Unavailable [address] + [place] [address] [facility] Unavailable [address] + [place] [address] RICCO, FADUMO Unavailable [address] + [place] [address] KATHLEEN WILCOXLIE Unavailable [address] + [place] [address] [facility] Unavailable [address] + [place] [address] RICCO, FADUMO Unavailable [address] + [place] [address] TOSHIA WILCOX Unavailable [address] + [place] [address] [facility] Unavailable [address] + [place] [address] RICCO, FADUMO Unavailable [address] + [place] [address] TOSHIA WILCOX Unavailable [address] [place] [address] + [place] [address] [facility] Unavailable [address] + [place] [address] RICCO, FADUMO Unavailable [address] + [place] [address] TOSHIA WILCOX Unavailable [address] [place] [address] + [place] [address] WC Unavailable [address] + [place] [address] RICCO, FADUMO Unavailable [address] + [place] [address] TOSHIA WILCOX Unavailable [address] [place] [address] + [place] [address] WC Unavailable [address] + [place] [address] RICCO, FADUMO Unavailable [address] + [place] [address] TOSHIA WILCOX Unavailable [address] [place] [address] + [place] [address] [facility] Unavailable [address] + [place] [address] RICCO, FADUMO Unavailable [address] + [place] [address] TOSHIA WILCOX Unavailable [address] [place] [address] + [place] [address] WC Unavailable [address] + [place] [address] RICCO, FADUMO Unavailable [address] + [place] [address] TOSHIA WILCOX Unavailable [address] [place] [address] + [place] [address] WC Unavailable [address] + [place] [address] RICCO, FADUMO Unavailable [address] + [place] [address] TOSHIA WILCOX Unavailable [address] [place] [address] + [place] [address] [facility] Unavailable [address] + [place] [address] RICCO, FADUMO Unavailable [address] + [place] [address] BRENDEN, TOSHIA Unavailable [address] [place] [address] + [place] [address] WC Unavailable [address] + [place] [address] RENÉE CHACKOECCA Unavailable [address] + [place] [address] TOSHIA WILCOX Unavailable [address] [place] [address] + [place] [address] WC Unavailable [address] + [place] [address] RICCO FADUMO Unavailable [address] + [place] [address] TOSHIA WILCOX Unavailable [address] [place] [address] + [place] [address] WC Unavailable [address] + [place] [address] RICCO FADUMO Unavailable [address] + [place] [address] TOSHAI WILCOX Unavailable [address] [place] [address] + [place] [address] WC Unavailable [address] + [place] [address] RICCO FADUMO Unavailable [address] + [place] [address] TOSHIA WILCOX Unavailable [address] [place] [address] + [place] [address] [facility] Unavailable [address] + [place] [address] RICCO FADUMO Unavailable [address] + [place] [address] TOSHIA WILCOX Unavailable [address] [place] [address] + [place] [address] WC Unavailable [address] + [place] [address] RICCO FADUMO Unavailable [address] + [place] [address] TOSHIA WILCOX Unavailable [address] [place] [address] + [place] [address] [facility] Unavailable [address] + [place] [address] RICCO, FADUMO Unavailable [address] + [place] [address] SEAMUS WILCOXE Unavailable [address] [place] [address] + [place] [address] [facility] Unavailable [address] + [place] [address] RICCO, FADUMO Unavailable [address] + [place] [address] KATHLEEN WILCOXLIE Unavailable [address] [place] [address] + [place] [address] [facility] Unavailable [address] + [place] [address] RICCO, FADUMO Unavailable [address] + [place] [address] TOSHIA WILCOX Unavailable [address] [place] [address] + [place] [address] [facility] Unavailable [address] + [place] [address] RICCO, FADUMO Unavailable [address] + [place] [address] SEAMUS WILCOXE Unavailable [address] [place] [address] + [place] [address] [facility] Unavailable [address] + [place] [address] RICCO, FADUMO Unavailable [address] + [place] [address] SEAMUS WILCOXE Unavailable [address] [place] [address] + [place] [address] [facility] Unavailable [address] + [place] [address] RICCO FADUMO Unavailable [address] + [place] [address] KATHLEEN WILCOXLIE Unavailable [address] [place] [address] + [place] [address] [facility] Unavailable [address] + [place] [address] RICCO, FADUMO Unavailable [address] + [place] [address] TOSHIA WILCOX Unavailable [address] [place] [address] + [place] [address] [facility] Unavailable [address] + [place] [address] RICCO, FADUMO Unavailable [address] + [place] [address] TOSHIA WILCOX Unavailable [address] [place] [address] + [place] [address] [facility] Unavailable [address] + [place] [address] RICCO, FADUMO Unavailable [address] + [place] [address] TOSHIA WILCOX Unavailable [address] [place] [address] + [place] [address] [facility] Unavailable [address] + [place] [address] RICCO, FADUMO Unavailable [address] + [place] [address] TOSHIA WILCOX Unavailable [address] [place] [address] + [place] [address] [facility] Unavailable [address] + [place] [address] RICCO, FADUMO Unavailable [address] + [place] [address] TOSHIA WILCOX Unavailable [address] [place] [address] + [place] [address] [facility] Unavailable [address] + [place] [address] RICCO, FADUMO Unavailable [address] + [place] [address] TOSHIA WILCOX Unavailable [address] [place] [address] + [place] [address] [facility] Unavailable [address] + [place] [address] RICCO, FADUMO Unavailable [address] + [place] [address] TOSHIA WILCOX Unavailable [address] [place] [address] + [place] [address] [facility] Unavailable [address] + [place] [address] RICCO, FADUMO Unavailable [address] + [place] [address] TOSHIA WILCOX Unavailable [address] [place] [address] + [place] [address] [facility] Unavailable [address] + [place] [address] RICCO, FADUMO Unavailable [address] + [place] [address] SEAMUS WILCOXE Unavailable [address] [place] [address] + [place] [address] [facility] Unavailable [address] + [place] [address] RICCO, FADUMO Unavailable [address] + [place] [address] TOSHIA WILCOX Unavailable [address] [place] [address] + [place] [address] [facility] Unavailable [address] + [place] [address] RICCO, FADUMO Unavailable [address] + [place] [address] TOSHIA WILCOX Unavailable [address] [place] [address] + [place] [address] [facility] Unavailable [address] + [place] [address] RICCO, FADUMO Unavailable [address] + [place] [address] SEAMUS WILCOXE Unavailable [address] [place] [address] + [place] [address] [facility] Unavailable [address] + [place] [address] RICCO, FADUMO Unavailable [address] + [place] [address] BRENDEN TOSHIA Unavailable [address] [place] [address] + [place] [address] [facility] Unavailable [address] + [place] [address] RICCO, FADUMO Unavailable [address] + [place] [address] SEAMUS WILCOXE Unavailable [address] [place] [address] + [place] [address] [facility] Unavailable [address] + [place] [address] RICCO, FADUMO Unavailable [address] + [place] [address] SEAMUS WILCOXE Unavailable [address] [place] [address] + [place] [address] [facility] Unavailable [address] + [place] [address] RICCO, FADUMO Unavailable [address] + [place] [address] BRENDEN TOSHIA Unavailable [address] [place] [address] + [place] [address] WC Unavailable [address] + [place] [address] RICCO, FADUMO Unavailable [address] + [place] [address] SEAMUS WILCOXE Unavailable [address] [place] [address] + [place] [address] WC Unavailable [address] + [place] [address] RICCO, FADUMO Unavailable [address] + [place] [address] TOSHIA WILCOX Unavailable [address] [place] [address] + [place] [address] [facility] Unavailable [address] + [place] [address] RICCO, FADUMO Unavailable [address] + [place] [address] BRENDEN, TOSHIA Unavailable [address] [place] [address] + [place] [address] [facility] Unavailable [address] + [place] [address] RICCO, FADUMO Unavailable [address] + [place] [address] BRENDEN TOSHIA Unavailable [address] [place] [address] + [place] [address] [facility] Unavailable [address] + [place] [address] RICCO, FADUMO Unavailable [address] + [place] [address] KATHLEEN WILCOXLIE Unavailable [address] [place] [address] + [place] [address] [facility] Unavailable [address] + [place] [address] RICCO, FADUMO Unavailable [address] + [place] [address] BRENDEN TOSHIA Unavailable [address] [place] [address] + [place] [address] [facility] Unavailable [address] + [place] [address] RICCO, FADUMO Unavailable [address] + [place] [address] BRENDEN TOSHIA Unavailable [address] [place] [address] + [place] [address] [facility] Unavailable [address] + [place] [address] RICCO, FADUMO Unavailable [address] + [place] [address] BRENDEN TOSHIA Unavailable [address] [place] [address] + [place] [address] [facility] Unavailable [address] + [place] [address] RICCO, FADUMO Unavailable [address] + [place] [address] BRENDEN TOSHIA Unavailable [address] [place] [address] + [place] [address] [facility] Unavailable [address] + [place] [address] RICCO, FADUMO Unavailable [address] + [place] [address] BRENDENKATHLEENTOSHIA Unavailable [address] [place] [address] + [place] [address] [facility] Unavailable [address] + [place] [address] RICCO, FADUMO Unavailable [address] + [place] [address] BRENDEN TOSHIA Unavailable [address] [place] [address] + [place] [address] [facility] Unavailable [address] + [place] [address] RICCO, FADUMO Unavailable [address] + [place] [address] BRENDEN TOSHIA Unavailable [address] [place] [address] + [place] [address] WC Unavailable [address] + [place] [address] RICCO, FADUMO Unavailable [address] + [place] [address] BRENDEN TOSHIA Unavailable [address] [place] [address] + [place] [address] [facility] Unavailable [address] + [place] [address] RICCO, FADUMO Unavailable [address] + [place] [address] BRENDEN TOSHIA Unavailable [address] [place] [address] + [place] [address] [facility] Unavailable [address] + [place] [address] RICCO, FADUMO Unavailable [address] + [place] [address] BRENDEN TOSHIA Unavailable [address] [place] [address] + [place] [address] [facility] Unavailable [address] + [place] [address] Care Team Providers Name Role Phone Clifford Barakat Attending Unavailable Mascmike, Clifford Referring Unavailable Person, Jacinto Primary Care Unavailable Mascmike, Clifford Attending Unavailable Person, Jacinto Primary Care Unavailable Masci, Clifford Attending Unavailable Person, Jacinto Primary Care Unavailable Person, Jacinto Primary Care Unavailable Adán Tee Attending Unavailable Masci, Clifford Attending Unavailable Person, Jacinto Primary Care Unavailable Masci, Clifford Attending Unavailable Person, Jacinto Primary Care Unavailable Masci, Clifford Attending Unavailable Person, Jacinto Primary Care Unavailable Masci, Clifford Referring Unavailable Person, Jacinto Primary Care Unavailable Sementi, Kiana Admitting Unavailable Ashelfah, Ghasem Attending Unavailable Sementi, Kiana Attending Unavailable Ashelfah, Ghasem Attending Unavailable Ashelfah, Gharisteom Attending Unavailable Masci, Clifford Attending Unavailable Person, Jacinto Primary Care Unavailable Mascmike, Clifford Referring Unavailable Mascmike, Clifford Attending Unavailable Mascmike, Clifford Referring Unavailable Person, Jacinto Primary Care Unavailable Roshni, Clifford Attending Unavailable Mascmike, Clifford Referring Unavailable Person, Jacinto Primary Care Unavailable Roshni, Clifford Attending Unavailable Mascmike, Clifford Referring Unavailable Person, Jacinto Primary Care Unavailable Roshni, Clifford Attending Unavailable Roshni, Clifford Referring Unavailable Person, Jacinto Primary Care Unavailable Roshni, Clifford Attending Unavailable Roshni, Clifford Referring Unavailable Person, Jacinto Primary Care Unavailable Arabella Donovan Consulting Unavailable Roshni, Clifford Attending Unavailable Roshni, Clifford Referring Unavailable Person, Jacinto Primary Care Unavailable Roshni, Clifford Attending Unavailable Roshni, Clifford Referring Unavailable Person, Jacinto Primary Care Unavailable Roshni, Clifford Attending Unavailable Mascmike, Clifford Referring Unavailable Person, Jacinto Primary Care Unavailable Mascmike, Clifford Attending Unavailable Mascmike, Clifford Referring Unavailable Person, Jacinto Primary Care Unavailable Arabella Donovan Consulting Unavailable Roshni, Clifford Attending Unavailable Roshni, Clifford Referring Unavailable Person, Jacinto Primary Care Unavailable Mascmike, Clifford Attending Unavailable Person, Jacinto Primary Care Unavailable Person, Jacinto Primary Care Unavailable Johnny Santos Attending Unavailable Garcia Reed Attending Unavailable Person, Jacinto Referring Unavailable Person, Jacinto Primary Care Unavailable Garcia Reed Attending Unavailable Person, Jacinto Referring Unavailable Person, Jacinto Primary Care Unavailable Garcia Reed Consulting Unavailable Person, Jacinto Attending Unavailable Person, Jacinto Referring Unavailable Person, Jacinto Primary Care Unavailable Mascmike, Clifford Attending Unavailable Mascmike, Clifford Referring Unavailable Person, Jacinto Primary Care Unavailable Masci, Clifford Attending Unavailable Masci, Clifford Referring Unavailable Person, Jacinto Primary Care Unavailable Person, Jacinto Attending Unavailable Person, Jacinto Referring Unavailable Person, Jacinto Primary Care Unavailable Masci, Clifford Consulting Unavailable Basali, Bhanu Consulting Unavailable Masci, Clifford Attending Unavailable Masci, Clifford Referring Unavailable Person, Jacinto Primary Care Unavailable Masci, Clifford Attending Unavailable Masci, Clifford Referring Unavailable Person, Jacinto Primary Care Unavailable Masci, Clifford Attending Unavailable Masci, Clifford Referring Unavailable Person, Jacinto Primary Care Unavailable Masci, Clifford Attending Unavailable Person, Jacinto Primary Care Unavailable Masci, Clifford Referring Unavailable Nurse, Surgery Attending Unavailable Person, Jacinto Referring Unavailable Masci, Clifford Attending Unavailable Masci, Clifford Referring Unavailable Person, Jacinto Primary Care Unavailable Masci, Clifford Attending Unavailable Person, Jacinto Primary Care Unavailable Eric Blue Attending Unavailable Person, Jacinto Primary Care Unavailable MOOK PAIGE Attending Unavailable Masci, Clifford Attending Unavailable Masci, Clifford Referring Unavailable Person, Jacinto Primary Care Unavailable Masci, Clifford Attending Unavailable Masci, Clifford Referring Unavailable Person, Jacinto Primary Care Unavailable Masci, Clifford Attending Unavailable Masci, Clifford Referring Unavailable Person, Jacinto Primary Care Unavailable Masci, Clifford Attending Unavailable Masci, Clifford Referring Unavailable Person, Jacinto Primary Care Unavailable Masci, Clifford Attending Unavailable Masci, Clifford Referring Unavailable Person, Jacinto Primary Care Unavailable ASSESSMENT, HEALTH RISK Attending Unavailable ASSESSMENT, HEALTH RISK Referring Unavailable Person, Jacinto Primary Care Unavailable Masci, Clifford Attending Unavailable Masci, Clifford Referring Unavailable Person, Jacinto Primary Care Unavailable Masci, Clifford Attending Unavailable Masci, Clifford Referring Unavailable Person, Jacinto Primary Care Unavailable Masci, Clifford Attending Unavailable Masci, Clifford Referring Unavailable Person, Jacinto Primary Care Unavailable Masci, Clifford Attending Unavailable Masci, Clifford Referring Unavailable Person, Jacinto Primary Care Unavailable Masci, Clifford Attending Unavailable Masci, Clifford Referring Unavailable Person, Jacinto Primary Care Unavailable Masci, Clifford Attending Unavailable Masci, Clifford Referring Unavailable Person, Jacinto Primary Care Unavailable Masci, Clifford Attending Unavailable Masci, Clifford Referring Unavailable Person, Jacinto Primary Care Unavailable Masci, Clifford Attending Unavailable Masci, Clifford Referring Unavailable Person, Jacinto Primary Care Unavailable Masci, Clifford Attending Unavailable Masci, Clifford Referring Unavailable Person, Jacinto Primary Care Unavailable Masci, Clifford Attending Unavailable Masci, Clifford Attending Unavailable Masci, Clifford Referring Unavailable Masci, Clifford Attending Unavailable Masci, Clifford Referring Unavailable Primay Care Physicia, No Primary Care Unavailable Masci, Clifford Attending Unavailable Masci, Clifford Referring Unavailable Primay Care Physicia, No Primary Care Unavailable Masci, Clifford Attending Unavailable Masci, Clifford Referring Unavailable Person, Jacinto Primary Care Unavailable Masci, Clifford Attending Unavailable Masci, Clifford Referring Unavailable Person, Jacinto Primary Care Unavailable Masci, Clifford Attending Unavailable Masci, Clifford Referring Unavailable Person, Jacinto Primary Care Unavailable Masci, Clifford Attending Unavailable Person, Jacinto Primary Care Unavailable Masci, Clifford Attending Unavailable Masci, Clifford Referring Unavailable Person, Jacinto Primary Care Unavailable Masci, Clifford Attending Unavailable Masci, Clifford Referring Unavailable Person, Jacinto Primary Care Unavailable Masci, Clifford Attending Unavailable Masci, Clifford Referring Unavailable Person, Jacinto Primary Care Unavailable Masci, Clifford Attending Unavailable Masci, Clifford Referring Unavailable Person, Jacinto Primary Care Unavailable Masci, Clifford Attending Unavailable Masci, Clifford Referring Unavailable Person, Jacinto Primary Care Unavailable MASCI, CLIFFORD James Referring Unavailable MASCI, CLIFFORD James Attending Unavailable MASCI, CLIFFORD Jamse Referring Unavailable MASCI, CLIFFORD James Referring Unavailable MASCI, CLIFFORD James Attending Unavailable MASCI, CILFFORD James Referring Unavailable MASCI, CLIFFORD James Attending Unavailable MASCI, CLIFFORD James Referring Unavailable MASCI, CLIFFORD James Attending Unavailable MASCI, CLIFFORD James Referring Unavailable ZIONARABELLA Attending Unavailable MASCI, CLIFFORD James Referring Unavailable MASCI, CLIFFORD James Attending Unavailable MASCI, CLIFFORD James Referring Unavailable MASCI, CLIFFORD James Attending Unavailable MASCI, CLIFFORD James Referring Unavailable MASCI, CLIFFORD James Attending Unavailable MASCI, CLIFFORD James Referring Unavailable MASCI, CLIFFORD James Attending Unavailable MASCI, CLIFFORD James Referring Unavailable MASCI, CLIFFORD James Attending Unavailable MASCI, CLIFFORD James Referring Unavailable PITASAWYER Attending Unavailable MASCI, CLIFFORD A Referring Unavailable MASCI, CLIFFORD James Attending Unavailable MASCI, CLIFFORD James Referring Unavailable MASCI, CLIFFORD James Referring Unavailable ASIA REYES (HEALTH CARE LIAISON) Attending Unavailable MASCI, CLIFFORD A Referring Unavailable MASCI, CLIFFORD A Attending Unavailable MASCI, CLIFFORD A Referring Unavailable MASCI, CLIFFORD James Attending Unavailable MASCI, CLIFFORD James Referring Unavailable ASIA REYES (HEALTH CARE LIAISON) Attending Unavailable MASCI, CLIFFORD A Referring Unavailable MASCI, CLIFFORD James Attending Unavailable MASCI, CLIFFORD A Referring Unavailable MASCI, CLIFFORD James Attending Unavailable MASCI, CLIFFORD James Referring Unavailable MASCI, CLIFFORD James Attending Unavailable MASCI, CLIFFORD James Referring Unavailable MASCI, CLIFFORD James Attending Unavailable MASCI, CLIFFORD James Referring Unavailable MASCI, CLIFFORD James Attending Unavailable MASCI, CLIFFORD James Referring Unavailable PROBLEMS PROBLEMS DATE TYPE CONDITION / CODE ATTENDING STATUS SOURCE 04/04/2018 Unknown 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 / C50.411(ICD-10) 04/04/2018 Unknown 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 / Hospital C78.02(ICD-10) Repository 04/04/2018 Unknown Z17.1 - Estrogen MascClifford mckeon Active [facility] receptor negative Community status [ER-] / Hospital Z17.1(ICD-10) Repository 01/27/2018 Unknown 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 / Hospital C79.51(ICD-10) Repository 12/09/2017 Unknown Z51.11 - Encounter Clifford Barakat Active [facility] for antineoplastic Community chemotherapy / Hospital Z51.11(ICD-10) Repository 10/20/2017 Active Unknown / [facility] TOUSSAINT Active [facility] [place] Repository 10/05/2017 Unknown C50.911 - Malignant MascClifford mckeon Active [facility]oplasm of Community unspecified site of Hospital right female breast Repository / C50.911(ICD-10) 09/15/2017 Unknown R10.84 - Generalized Person, Jacinto Active [facility] abdominal pain / Community R10.84(ICD-10) Hospital Repository 11/07/2017 Unknown R41.0 - Johnny Santos Active [facility] Disorientation, Community unspecified / Hospital R41.0(ICD-10) Repository 05/19/2017 Unknown I95.9 - Hypotension, Ashelfah, Active [facility] unspecified / [facility] Community I95.9(ICD-10) Hospital Repository 05/20/2017 Unknown E83.39 - Other Ashelfah, Active [facility] disorders of [facility] phosphorus Hospital metabolism / Repository E83.39(ICD-10) 05/20/2017 Unknown E83.42 - Ashelfah, Active [facility] Hypomagnesemia / [facility] Community E83.42(ICD-10) Hospital Repository 05/20/2017 Unknown E87.6 - Hypokalemia Ashelfah, Active [facility] / E87.6(ICD-10) [facility] Hospital Repository 05/20/2017 Unknown J32.9 - Chronic [place], Active [place] sinusitis, [facility] unspecified / Hospital J32.9(ICD-10) Repository 05/02/2017 Unknown R11.2 - Nausea with Clifford Barakat Active [place] vomiting, [facility] unspecified / Hospital R11.2(ICD-10) Repository 01/26/2017 Active 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 Clinic Main lung / [place] C78.02(ICD-10) Repository 12/10/2016 Active Malignant neoplasm CLIFFORD BARAKAT Active [place] of upper-outer Clinic Main quadrant of right [place] female breast / Repository C50.411(ICD-10) 12/10/2016 Active Estrogen receptor CLIFFORD BARAKAT Active [place] negative status [facility] (ER-) / [place] Z17.1(ICD-10) Repository 05/26/2017 Unknown R50.9 - Fever, Tee, Adán Active [place] unspecified / Community R50.9(ICD-10) Hospital Repository PROCEDURES PROCEDURES No Procedure Records FoundRESULTS RESULTS PROGRESS Observed: 04/04/2018 Status: COMPLETED Source: [place] 9:15 AM [facility] REPOSITORY HNO ID: [id number] Author: Clifford Barakat Service: (none) Author Type: Physician Type: Progress Notes Filed: 04/04/2018 9:39 AM Note Text: Diagnosis: 1) Breast cancer. 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 Her mother has a h/o breast cancer, so patient had been undergoing annual mammogram. The patient underwent a screening mammogram on 08/30/2013. A 1.6 cm nodular density was appreciated in the tail of the right breast. She underwent targeted ultrasound the same day. That study revealed a 9 mm hypoechoic solid nodule at the 10:00 position of the breast measuring 6 cm from the nipple. Stereotactic core needle biopsy on 09/13/2013. The tissue revealed invasive poorly differentiated ductal carcinoma. The specimen was negative for both estrogen and progesterone receptors. Both were quantified at 0%. HER-2 was 2+ an immunostain and nonamplified by FISH testing. The patient underwent an MRI of the breast on 09/20/2013. The study revealed that the left breast had no suspicious findings. In the right breast there was a 1.6 cm abnormal enhancing mass in the superior outer aspect of the right breast approximately 10 cm from the nipple. This correlated to the biopsy area. Underwent partial mastectomy with SLN biopsy 10/05/2013. The final pathology revealed an invasive poorly differentiated ductal carcinoma measuring 1.3 cm in size. There was a single focus. DCIS was present measuring 2 mm in maximum dimension. The grade of the cancer was 3. Margins were negative. The closest was 6 mm. Lymphovascular invasion was not identified. One sentinel lymph node was retrieved. It was negative. Previous therapy: 1) Received two cycles of TC adjuvantly. Admitted for severe PAGE. Work up negative, then admitted 12/17/2013 due to increase in thigh pain and dyspnea. Markedly elevated CK. No increase in serum Cr. Chemotherapy stopped after cycle #2. Was seen by ornamental plasterer helper at . 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 2) Completed radiation 03/26/2014. ------- She started developing intermittent shortness of breath with exertion. She also has a cough that is a dry cough. She was taken off her PAM inhibitor but the cough has not changed. She had a PA and lateral chest film done on 10/22/2016 that demonstrated no abnormality. She then underwent a CT scan the chest without IV contrast on 11/06/2016. Two nodules were observed in the pulmonary parenchyma. One was located in the right lower lobe and the second was located in the lingular lobe. Each measured 8 mm and were thought to be consistent with metastatic disease. CT of the abdomen and pelvis on 11/20/2016 as well as repeat CT chest with IV contrast demonstrated a thick walled gallbladder suspicious for cystitis, chronic and redemonstration of the lung nodules. No concern for metastatic disease in the abdomen or pelvis. Brain MRI on 11/23/2016 was normal. PET scan demonstrated multiple foci of increased glucose concentration manifested in the right axilla, significant region generating a standard uptake value of 7.6. The maximal axial diameter the largest individual hypermetabolic soft tissue density on review of the CT of the thorax was approximately 23.1 mm in transverse dimension. An ultrasound of the right axilla and subclavicular region on 12/02/2016 demonstrated that within the right axilla there was a cluster of abnormal appearing hypoechoic nodules. The largest measured 2.3 x 1.50 1.4 cm. In the subclavicular region there was also evidence of several hypoechoic nodules the largest measuring 2.75 x 2.85 1.5 cm. She then underwent a right axillary core needle biopsy on 12/07/2016. The pathology demonstrated a poorly differentiated metastatic carcinoma. The specimen was negative for both ER and KS as well as HER- 2. I discussed the case with the pathologist today who told me that histologically/morphologically the specimen was consistent with her previous specimen of breast cancer. The pathologist will issue an addendum quantifying ER and KS 0 as well as HER-2 at 0. She had a stress test and echocardiogram about 3 years ago and had no evidence of coronary artery disease. She had LV concentric hypertrophy with preserved ejection fraction. She underwent port placement along with right axillary lymph node dissection on 12/24/2016. MICROSCOPIC DIAGNOSIS Right axillary lymph nodes, regional lymph adenectomy: One out of seven lymph nodes with metastatic poorly differentiated carcinoma. See comment. COMMENT Immunohistochemistry ([id number]) does not rule out a breast primary. There is focal perinodal extension of tumor. Clinical correlation is suggested. ANTIBODY / CLONE RESULT Block 1 Mammaglobin (31A5) negative GATA3 (L50-823) positive, rare, dim CK8 ([id number]) positive Ki-67 (30-9) positive, moderate to high ER (6F11) negative 0% KS (1E2) negative 0% CK19 (A53-B/A2.26) positive Cyclin D1/BCL-1 (SP4) positive CEA (11-7/TF-3HB-1) negative SHELLI (E29) positive CK20 (KS20.8) negative Villin (CWWB1) negative RCC (PN-15) negative CA125 (OC125) positive Previous therapy for metastatic disease: 1) Cisplatin (+/- PARP inhibitor on trial). 2) Houck/carbo. She underwent a CT scan of the neck, chest abdomen and pelvis at [facility] on 10/05/2017. The CT of the neck revealed an abnormal enhancing right subclavicular lymph node measuring 2.6 x 2.0 x 2.2 cm. There were no other significant abnormalities. CT of the chest corroborated the CT neck findings with a 2.6 x 1.5 mm lymph node in the right supraclavicular region. The abdominopelvic images revealed no evidence of metastatic disease. Bone scan done 10/07/2017 showed some increase in radiopharmaceutical concentration in the distal sternum and in the right posterior and anterior lateral ribs potentially representing limited skeletal metastatic disease. Came off trial. She was seen at [facility] and did not qualify for the 2 clinical trials available due to her pre-existing diabetic neuropathy and history of type 1 diabetes. Current therapy: 1) Gemcitabine single agent. Interim history: She developed severe bilateral hip pain and stiffness that lasted about 24 hours that had an onset about a week after first to med infusion. No other side effects. Those symptoms resolved. She has stable pain in her legs from neuropathy. Increasing Lasix to 40 mg a day help with the swelling in the ankles but she still has swelling more proximally in the calves. She's not short of breath at rest. No cough or sputum production. Energy levels are fair. Discussed blood sugar control with her today and she said this point she is not really paying attention to her diet given her circumstances with cancer. I a knowledge that we may not be perhaps worried about the long-term consequences of uncontrolled hyperglycemia but in the short term we have to be mindful of the blood sugars due to the fact that they will only compound her fatigue and possibly lead to hyperosmolar nonketotic coma. PMH, medications and allergies as below personally reviewed by me today. Any changes documented in appropriate section. PHYSICAL EXAM: Vitals: Blood pressure 145/81, pulse 104, temperature 37.2 ?C (98.9 ?F), temperature source Oral, weight 89.6 kg (197 lb 8 oz). Well-appearing and in no acute distress. EYES: Sclerae are anicteric bilaterally. NECK: Supple. LYMPHATIC: The firmly enlarged mobile right supraclavicular lymph node measuring approximately 2 cm close to the base of the neck remains stable. No other peripheral adenopathy. RESPIRATORY: Inspiratory breath sounds are of normal intensity in all norris. No rales, wheezes or rhonchi. CARDIOVASCULAR: Rhythm is regular. Normal intensity S1/S2. There is no gallop or murmur. ABDOMEN: The abdomen is nondistended. No organomegaly. No tenderness. Extremities: Swelling at ankles to about mid calf b/l. SKIN: No jaundice or rash. No petechiae. NEUROLOGIC: station attendant II-XII are grossly intact. No focal motor weakness. Patellar DTRs absent. ASSESSMENT/PLAN: (C50.411, Z17.1) Malignant neoplasm of upper-outer quadrant of right breast in female, estrogen receptor negative (HCC) (primary encounter diagnosis) (C79.51) Bone metastases (HCC) Complicated by severe myositis during adjuvant chemotherapy. -KPS is 90%. -Biopsy-proven local regional recurrence. -Testing for MMR status via IHC returned 01/26/2018 showing MMR proficient status. Please see scanned report. -She is tolerating single agent gemcitabine very well with no worsening of neuropathy. Right supra-clavicular lymph node is less prominent by exam, although still palpable. -Reviewed CTs. ROSINA. Bone scan potential new disease right proximal tibia and T8--x-ray thoracic spine normal. She is asymptomatic so I discussed with her this could be new disease, because no symptoms and her difficulty with nausea/neuropathy with previous drugs, will continue present therapy and reassess in about 2-3 months. Plan: -Okay to proceed with next cycle treatment. -Zometa every 6 weeks. Clifford Barakat DO CNOVSP Observed: 04/04/2018 Status: COMPLETED Source: [place] 9:10 AM [facility] REPOSITORY Visit (SP) Office ([place]) PEDRO LUIS WILCOX ([id number]) 1970 F Date Time Provider Department 04/04/18 9:10 AM CLIFFORD BARAKAT During your visit today, we recorded the following information about you: Temperature Pulse Blood pressure Weight 98.9 degrees 104/minute 145/81 89.6 kg Federica Pimentel TIFFANIE 04/04/2018 9:23 AM Signed Est patient. Bone scan @ [facility]. Federica Pimentel TIFFANIE Horton Jacob DO [place] 04/04/2018 9:39 AM Signed Diagnosis: 1) Breast cancer. 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 Her mother has a h/o breast cancer, so patient had been undergoing annual mammogram. The patient underwent a screening mammogram on 08/30/2013. A 1.6 cm nodular density was appreciated in the tail of the right breast. She underwent targeted ultrasound the same day. That study revealed a 9 mm hypoechoic solid nodule at the 10:00 position of the breast measuring 6 cm from the nipple. Stereotactic core needle biopsy on 09/13/2013. The tissue revealed invasive poorly differentiated ductal carcinoma. The specimen was negative for both estrogen and progesterone receptors. Both were quantified at 0%. HER-2 was 2+ an immunostain and nonamplified by FISH testing. The patient underwent an MRI of the breast on 09/20/2013. The study revealed that the left breast had no suspicious findings. In the right breast there was a 1.6 cm abnormal enhancing mass in the superior outer aspect of the right breast approximately 10 cm from the nipple. This correlated to the biopsy area. Underwent partial mastectomy with SLN biopsy 10/05/2013. The final pathology revealed an invasive poorly differentiated ductal carcinoma measuring 1.3 cm in size. There was a single focus. DCIS was present measuring 2 mm in maximum dimension. The grade of the cancer was 3. Margins were negative. The closest was 6 mm. Lymphovascular invasion was not identified. One sentinel lymph node was retrieved. It was negative. Previous therapy: 1) Received two cycles of TC adjuvantly. Admitted for severe PAGE. Work up negative, then admitted 12/17/2013 due to increase in thigh pain and dyspnea. Markedly elevated CK. No increase in serum Cr. Chemotherapy stopped after cycle #2. Was seen by ornamental plasterer helper at . 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 2) Completed radiation 03/26/2014. --- She started developing intermittent shortness of breath with exertion. She also has a cough that is a dry cough. She was taken off her PAM inhibitor but the cough has not changed. She had a PA and lateral chest film done on 10/22/2016 that demonstrated no abnormality. She then underwent a CT scan the chest without IV contrast on 11/06/2016. Two nodules were observed in the pulmonary parenchyma. One was located in the right lower lobe and the second was located in the lingular lobe. Each measured 8 mm and were thought to be consistent with metastatic disease. CT of the abdomen and pelvis on 11/20/2016 as well as repeat CT chest with IV contrast demonstrated a thick walled gallbladder suspicious for cystitis, chronic and redemonstration of the lung nodules. No concern for metastatic disease in the abdomen or pelvis. Brain MRI on 11/23/2016 was normal. PET scan demonstrated multiple foci of increased glucose concentration manifested in the right axilla, significant region generating a standard uptake value of 7.6. The maximal axial diameter the largest individual hypermetabolic soft tissue density on review of the CT of the thorax was approximately 23.1 mm in transverse dimension. An ultrasound of the right axilla and subclavicular region on 12/02/2016 demonstrated that within the right axilla there was a cluster of abnormal appearing hypoechoic nodules. The largest measured 2.3 x 1.50 1.4 cm. In the subclavicular region there was also evidence of several hypoechoic nodules the largest measuring 2.75 x 2.85 1.5 cm. She then underwent a right axillary core needle biopsy on 12/07/2016. The pathology demonstrated a poorly differentiated metastatic carcinoma. The specimen was negative for both ER and KS as well as HER-2. I discussed the case with the pathologist today who told me that histologically/morphologically the specimen was consistent with her previous specimen of breast cancer. The pathologist will issue an addendum quantifying ER and KS 0 as well as HER-2 at 0. She had a stress test and echocardiogram about 3 years ago and had no evidence of coronary artery disease. She had LV concentric hypertrophy with preserved ejection fraction. She underwent port placement along with right axillary lymph node dissection on 12/24/2016. MICROSCOPIC DIAGNOSIS Right axillary lymph nodes, regional lymph adenectomy: One out of seven lymph nodes with metastatic poorly differentiated carcinoma. See comment. COMMENT Immunohistochemistry ([id number]) does not rule out a breast primary. There is focal perinodal extension of tumor. Clinical correlation is suggested. ANTIBODY / CLONE RESULT Block 1 Mammaglobin (31A5) negative GATA3 (L50-823) positive, rare, dim CK8 ([id number]) positive Ki-67 (30-9) positive, moderate to high ER (6F11) negative 0% KS (1E2) negative 0% CK19 (A53-B/A2.26) positive Cyclin D1/BCL-1 (SP4) positive CEA (11-7/TF-3HB-1) negative SHELLI (E29) positive CK20 (KS20.8) negative Villin (CWWB1) negative RCC (PN-15) negative CA125 (OC125) positive Previous therapy for metastatic disease: 1) Cisplatin (+/- PARP inhibitor on trial). 2) Houck/carbo. She underwent a CT scan of the neck, chest abdomen and pelvis at [facility] on 10/05/2017. The CT of the neck revealed an abnormal enhancing right subclavicular lymph node measuring 2.6 x 2.0 x 2.2 cm. There were no other significant abnormalities. CT of the chest corroborated the CT neck findings with a 2.6 x 1.5 mm lymph node in the right supraclavicular region. The abdominopelvic images revealed no evidence of metastatic disease. Bone scan done 10/07/2017 showed some increase in radiopharmaceutical concentration in the distal sternum and in the right posterior and anterior lateral ribs potentially representing limited skeletal metastatic disease. Came off trial. She was seen at [facility] and did not qualify for the 2 clinical trials available due to her pre-existing diabetic neuropathy and history of type 1 diabetes. Current therapy: 1) Gemcitabine single agent. Interim history: She developed severe bilateral hip pain and stiffness that lasted about 24 hours that had an onset about a week after first to med infusion. No other side effects. Those symptoms resolved. She has stable pain in her legs from neuropathy. Increasing Lasix to 40 mg a day help with the swelling in the ankles but she still has swelling more proximally in the calves. She's not short of breath at rest. No cough or sputum production. Energy levels are fair. Discussed blood sugar control with her today and she said this point she is not really paying attention to her diet given her circumstances with cancer. I a knowledge that we may not be perhaps worried about the long- term consequences of uncontrolled hyperglycemia but in the short term we have to be mindful of the blood sugars due to the fact that they will only compound her fatigue and possibly lead to hyperosmolar nonketotic coma. PMH, medications and allergies as below personally reviewed by me today. Any changes documented in appropriate section. PHYSICAL EXAM: Vitals: Blood pressure 145/81, pulse 104, temperature 37.2 ?C (98.9 ?F), temperature source Oral, weight 89.6 kg (197 lb 8 oz). Well-appearing and in no acute distress. EYES: Sclerae are anicteric bilaterally. NECK: Supple. LYMPHATIC: The firmly enlarged mobile right supraclavicular lymph node measuring approximately 2 cm close to the base of the neck remains stable. No other peripheral adenopathy. RESPIRATORY: Inspiratory breath sounds are of normal intensity in all norris. No rales, wheezes or rhonchi. CARDIOVASCULAR: Rhythm is regular. Normal intensity S1/S2. There is no gallop or murmur. ABDOMEN: The abdomen is nondistended. No organomegaly. No tenderness. Extremities: Swelling at ankles to about mid calf b/l. SKIN: No jaundice or rash. No petechiae. NEUROLOGIC: station attendant II-XII are grossly intact. No focal motor weakness. Patellar DTRs absent. ASSESSMENT/PLAN: (C50.411, Z17.1) Malignant neoplasm of upper-outer quadrant of right breast in female, estrogen receptor negative (HCC) (primary encounter diagnosis) (C79.51) Bone metastases (HCC) Complicated by severe myositis during adjuvant chemotherapy. -KPS is 90%. -Biopsy-proven local regional recurrence. -Testing for MMR status via IHC returned 01/26/2018 showing MMR proficient status. Please see scanned report. -She is tolerating single agent gemcitabine very well with no worsening of neuropathy. Right supra-clavicular lymph node is less prominent by exam, although still palpable. -Reviewed CTs. ROSINA. Bone scan potential new disease right proximal tibia and T8--x-ray thoracic spine normal. She is asymptomatic so I discussed with her this could be new disease, because no symptoms and her difficulty with nausea/neuropathy with previous drugs, will continue present therapy and reassess in about 2-3 months. Plan: -Okay to proceed with next cycle treatment. -Zometa every 6 weeks. Clifford Barakat DO Referring Provider: CLIFFORD BARAKAT [[id number]] Allergies As of Date: 04/04/2018 (No Known Allergies) Date Reviewed: 04/04/2018 Reviewed by: Federica Pimentel LPN - Fully Assessed Reason for Visit: Established Patient [[id number]] Primary Visit Diagnosis:Malignant neoplasm of upper-outer quadrant of right breast in female, estrogen receptor negative (HCC) [C50.411, Z17.1] Other Visit Diagnosis:Bone metastases (HCC) [C79.51] Follow-up and Disposition History Recorded Prescriptions as of 04/04/2018 Sig: VITAMIN B COMPLEX CAPSULE Take 1 capsule by mouth twice* CITALOPRAM 20 MG TABLET Take 1 tablet by mouth once d* CLONAZEPAM 0.5 MG TABLET 1 tablet twice daily. PRN DICYCLOMINE 20 MG TABLET Take 20 mg by mouth every 8 h* EMPAGLIFLOZIN 10 MG TABLET Take 10 mg by mouth once gamaliel* ERGOCALCIFEROL (VITAMIN D2) 5* Take 50,000 Units by mouth on* FUROSEMIDE 20 MG TABLET Take 2 tablets by mouth once * GABAPENTIN 300 MG CAPSULE Take 1 capsule by mouth three* HYDROCODONE 5 MG-ACETAMINOPHE* Take 1 tablet by mouth twice * * INSULIN GLARGINE (U-100) 100 * Take 50 in am and 70 units in* * HUMALOG KWIKPEN (U-100) INSUL* 15 in am, 15 noon, 20 in philip CREON ORAL Take 6,000 Units by mouth. Wi* LORAZEPAM 1 MG TABLET Take 1 tablet by mouth every * METOCLOPRAMIDE 10 MG TABLET Take 1 tablet by mouth every * NITROFURANTOIN MONOHYDRATE AND * Take 100 mg by mouth twice da* POTASSIUM CHLORIDE ER 20 MEQ * Take 1 tablet by mouth once d* TIMOLOL 0.5 % EYE DROPS Use 1 Drop in both eyes once * VALACYCLOVIR 500 MG TABLET Take 500 mg by mouth as neede* PROMETHAZINE 25 MG TABLET Take 1 tablet by mouth every * Patient not taking: Reported on 01/23/2018 Problem List As Of Date 04/04/2018 Noted Resolved THYROID NODULE [E04.1] INVALID FOR* More... Anxiety State, Unspecified [F41.1] 01/22/2009 Depressive Disorder, not Elsewhere Classified [* More... DM w/o complication type II, uncontrolled [E11.*INVALID FOR* More... Other Malaise and Fatigue [R53.81, R53.83] INVALID FOR*01/22/2009 More... HYPERLIPIDEMIA NEC/NOS [E78.5] INVALID FOR* FIBROMYALGIA [HCB8066] INVALID FOR* OVERWEIGHT [E66.9] INVALID FOR* OTHER HAMMER TOE [M20.40] INVALID FOR* More... URIN TRACT INFECTION RECURRENT [N39.0] INVALID FOR*01/21/2016 More... GENITAL HERPES NOS [A60.00] INVALID FOR* Tobacco Use Disorder [F17.200] INVALID FOR* More... CONGENITAL PES PLANUS [Q66.50] INVALID FOR* Displacement of Lumbar Intervertebral Disc with*INVALID FOR* More... More... Routine Gynecological Examination [Z01.419] INVALID FOR* Class: Chronic More... 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*INVALID FOR* Malignant neoplasm metastatic to left lung (HCC*INVALID FOR* Examination of participant in clinical trial [Z*INVALID FOR* Bone metastases (HCC) [C79.51] INVALID FOR* Visit Notes: >> Federica Espinosa Apr 04, 2018 9:10 AM Status: Signed Est patient. Bone scan @ [facility]. Federica Pimentel LPN Encounter Status:Closed by CLIFFORD BARAKAT DO on 04/04/18 CBC W/DIFF, AUTOMATED Collected: 04/04/2018 Status: F Source: [place] 7:29 AM [facility] REPOSITORY TYPE CODE TESTS RESULT OUT OF RANGE REFERENCE UNITS LAB L100.1000 4.4-11.0 K/mm3 Normal WBC 6.5 LAB L100.1200 4.2-5.4 M/mm3 Low RBC 3.26 LAB L100.1300 12.0-15.0 g/dl Low HGB 10.1 LAB L100.1400 37-47 % Low HCT 31.2 LAB L100.1500 81-99 fL Normal MCV 95.7 LAB L100.1600 27.0-32.0 pg Normal MCH 31.0 LAB L100.1700 32-36 g/gl Normal MCHC 32.4 LAB L100.1810 11.6-14.6 % Normal RDW CV 12.2 LAB L100.1820 35.1-43.9 fl Normal RDW SD 41.1 LAB L100.1900 150-450 K/mm3 Normal PLT 310 LAB L100.2000 6.2-12.0 fl Normal MPV 9.5 LAB L100.2100 47-70 % Normal NEUT% 69.3 LAB L100.2200 19-41 % Normal LY% 22.2 LAB L100.2300 0-10 % Normal MONO% 7.2 LAB L100.2400 0-5 % Normal EO% 0.8 LAB L100.2500 0-1 % Normal BASO% 0.3 LAB L100.2550 0.0-0.9 % Normal IM GRAN % 0.200 Result Comment: IG% - Immature Granulocytes (promyelocytes, myelocytes and metamyelocytes) > 1% indicates that a LEFT SHIFT is Present. LAB L100.2620 2.0-7.7 X10 3/uL Normal Absolute Neut 4.5 LAB L100.2720 0.83-4.51 X10 3/ul Normal Absolute Lymph 1.45 Performed By: #### L100.0100 #### [facility] [address] [place], [address] BASIC METABOLIC Collected: 04/04/2018 Status: F Source: [place] [place] 7:29 AM [facility] [place] REPOSITORY TYPE CODE TESTS RESULT OUT OF RANGE REFERENCE UNITS LAB L501.0100 74-106 mg/dL High GLU 368 Result Comment: Glucose result greater than or equal to 200 mg/dL suggests DIABETES MELLITUS per A.D.A. criteria. Please note revised GLUCOSE reference range effective 2017. LAB L501.1000 7-18 mg/dL High BUN 29 LAB L501.1100 0.55-1.02 mg/dL Normal CREAT,SERUM 0.90 Result Comment: The validity of the calculated GFR AND GFRAA in patients over 70 years has not been determined. Clinical correlation is essential. LAB L501.1110 >60 mL/min Normal EST GFR 71 Result Comment: Non- GFR Calc LAB L501.1115 >60 mL/min Normal EST GFR - AA 86 Result Comment: GFR Calc LAB L501.1300 10-20 RATIO High BUN/CRE 32.3 LAB L501.2200 8.5-10.1 mg/dL CA Normal 8.6 LAB L501.5300 136-145 mmol/L Low NA 133 LAB L501.5600 3.5-5.1 mmol/L K Normal 4.7 LAB L501.5900 98-107 mmol/L Low CL 97 LAB L501.6100 21.0-32.0 mmol/L Normal CO2 29.0 LAB L501.6200 5-15 Normal GAP 7 Performed By: #### L500.2500, L500.3400 #### [facility] [address] [place], [place], [id number] LIVER PROFILE Collected: 04/04/2018 Status: F Source: [place] 7:29 AM [facility] [place] REPOSITORY TYPE CODE TESTS RESULT OUT OF RANGE REFERENCE UNITS LAB L501.1500 6.4-8.2 g/dL Normal T PROT 7.8 LAB L501.1800 3.2-5.0 g/dL Low ALB 2.7 LAB L501.1950 2.2-4.2 g/dL High GLOB 5.1 LAB L501.4100 15-37 U/L Low AST 11 LAB L501.4305 45-117 U/L High ALK P 123 LAB L501.4405 13-56 U/L Normal ALT 13 LAB L501.4600 0.20-1.00 mg/dL Low T BILI 0.10 LAB L501.4700 0.00-0.30 mg/dL Normal D BILI 0.06 Performed By: #### L500.2500, L500.3400 #### [facility] [address] [place], [address] THORACIC SPINE 3 Observed: 04/03/2018 Status: F Source: [place]UL[place]ER VIEWS 11:02 AM [facility] [place] REPOSITORY [facility] Imaging Services [address] [place] [address] Thoracic Spine 3 Views MR#: [id number] Acct: [id number] Name: PEDRO LUIS WILCOX Rep #: [id number] : 1970 F 47 From: Marck Garcia MD PCP: Jacinto Person MD Status: REG CLI Study: Thoracic Spine 3 Views Date of Exam: 04/03/18 Exam# [id number] Ordering Dr: Clifford Barakat DO STUDY: X-RAY - THORACIC SPINE REASON FOR EXAM: Female, 47 years old. History of metastatic breast disease, recent bone scan showed activity in the region of the eighth vertebrae. TECHNIQUE: 3 view(s) of the thoracic spine were obtained. COMPARISON: None. FINDINGS: Normal kyphosis of the thoracic spine. There is no substantial scoliosis. There is diffuse endplate spondylosis of the thoracic spine. No lytic or blastic osseous changes are evident. Disc spacing is preserved. The pedicles, paraspinous soft tissues, and visualized posterior spinous elements are intact. There is a left-sided MediPort with tip superimposed on the distal SVC. RAD/Thoracic Spine 3 Views IMPRESSION: Degenerative changes as detailed above. No lytic or blastic osseous changes were evident. Electronically Signed: Marck Garcia MD at 23:51 EST , Service support , CC: Jacinto Person MD; Clifford Barakat DO Family And Consumer Education Teacher: Signed BONE SCAN WHOLE Observed: 03/30/2018 Status: F Source: [place] BODY 10:29 AM [facility] [place] REPOSITORY [facility] Imaging Services [address] [place] [address] Bone Scan Whole Body MR#: [id number] Acct: [id number] Name: PEDRO LUIS WILCOX Rep #: [id number] : 1970 F 47 From: Clay Real DO PCP: Raza VELAZQUEZ,Jacinto Status: REG CLI Study: Bone Scan Whole Body Date of Exam: 03/30/18 Exam# [id number] Ordering Dr: Clifford Barakat DO CLINICAL: 47-year-old female with reported history of carcinoma of the breast. WHOLE BODY 99m Tc MDP RADIONUCLIDE BONE SCINTIGRAPHY COMPARISON: Previous whole body bone scintigraphy study dated 01/20/2018 FINDINGS: Following the intravenous administration of 25.7 mCi of 99m Tc MDP, whole body bone images reveal: 1. Newly identified increased radiopharmaceutical concentration is noted in the eighth thoracic vertebra posteriorly on the right and right proximal tibial metaphysis, persistently defined in the distal sternum, right lower anterolateral chest wall-11th rib, the greater trochanteric aspect of the left proximal femur. 2. Enhanced tracer concentration remains evident in the sternoclavicular and acromioclavicular compartments of both shoulders, bilateral knees, right-left elbows, third lumbar vertebra posteriorly on the left. 3. The remaining skeletal structures are scintigraphically unremarkable with normal-appearing renal images and urinary bladder activity identified. NM/Bone Scan Whole Body IMPRESSION: 1. The increase in radiopharmaceutical concentration identified in the eighth thoracic vertebra and right proximal tibial metaphysis may be further investigated with plain film radiography in the setting of known breast carcinoma. 2. Facilitated uptake redemonstrated in the left proximal femur, distal sternum and right anterolateral 11th rib remains most consistent with apparent previously reported skeletal metastatic disease. 3. Degenerative arthritis appears currently expressed in the bilateral shoulders, right and left knees, both elbow articulations, the third lumbar vertebra 4. Overall compared to the previous whole body bone scintigraphy study dated 01/21/2008, newly identified increased uptake noted in the region of the eighth thoracic vertebra and right proximal tibia may warrant further radiologic investigation. Electronically Signed: Clay Real DO at 23:38 EST Tel , Service support , CC: Jacinto Person MD; Clifford Barakat DO Family And Consumer Education Teacher: Signed ABDOMEN/PELVIS WITH Observed: 03/27/2018 Status: F Source: [place] CONTRAST 7:52 AM [facility] [place] REPOSITORY [facility] Imaging Services [address] [place] [address] Abdomen/Pelvis WITH Contrast MR#: [id number] Acct: [id number] Name: PEDRO LUIS WILCOX Rep #: [id number] : 1970 F 47 From: Jina Arciniega MD PCP: Jacinto Person MD Status: REG CLI Study: Abdomen/Pelvis WITH Contrast Date of Exam: 03/27/18 Exam# [id number] Ordering Dr: Clifford Barakat DO STUDY: CT ABDOMEN AND PELVIS WITH CONTRAST REASON FOR EXAM: Female, 47 years old. Breast cancer follow-up. RADIATION DOSAGE (If Supplied By Facility): CTDIvol = ( 18.88 ) mGy, DLP = ( 2011.29 ) mGycm TECHNIQUE: Transaxial images were obtained from the dome of the diaphragm to the symphysis pubis with oral contrast. 100CC ml of Isovue 250 contrast was administered. Sagittal and coronal images were reconstructed. Individualized dose optimization techniques were used for this CT. COMPARISON: January 17, 2018 FINDINGS: The visualized lung bases are unremarkable. The visualized portions of the heart are within normal limits. There is stable skin thickening of the visualized right breast. Normal liver. Normal gallbladder and extrahepatic biliary system. Normal spleen. Normal pancreas. Normal bilateral adrenal glands. Normal right kidney. Normal left kidney. Normal visualized stomach. Normal small intestine. Normal colon. The appendix is visualized and appears normal. There is diffuse atherosclerotic calcification of the abdominal aorta, without a demonstrated aneurysm. Normal inferior vena cava. Normal retroperitoneum. Normal urinary bladder. Normal abdominal wall. There are diffuse degenerative changes of the visualized lumbar spine. CT/Abdomen/Pelvis WITH Contrast IMPRESSION: No evidence of metastases within the abdomen and pelvis. Atherosclerosis. Electronically Signed: Jina Arciniega MD at 17:03 EST Tel , Service support , CC: Jacinto Person MD; Clifford Barakat DO Family And Consumer Education Teacher: Signed CHEST WITH CONTRAST Observed: 03/27/2018 Status: F Source: [place] 7:52 AM [facility] [place] REPOSITORY [facility] Imaging Services [address] [place] [address] Chest WITH Contrast MR#: [id number] Acct: [id number] Name: PEDRO LUIS WILCOX Rep #: [id number] : 1970 F 47 From: Jina Arciniega MD PCP: Jacinto Person MD Status: REG CLI Study: Chest WITH Contrast Date of Exam: 03/27/18 Exam# [id number] Ordering Dr: Clifford Barakat DO STUDY: CT CHEST WITH CONTRAST REASON FOR EXAM: Female, 47 years old. Breast cancer follow- up. Right breast lumpectomy. RADIATION DOSAGE (If Supplied By Facility): CTDIvol = ( 18.88 ) mGy, DLP = ( 2011.29 ) mGycm TECHNIQUE: Transaxial imaging was performed following intravenous administration of 100CC ml of Isovue 300 contrast material. Multiplanar coronal and sagittal images were reformatted. Individualized dose optimization techniques were used for this CT. COMPARISON: January 17 and 2017 FINDINGS: There is stable minimal atelectasis and/or scarring within the left lower lobe. Normal heart and pericardium. Normal mediastinum. Normal hilar regions. Normal enhanced pulmonary arteries. Normal aorta arch and descending thoracic aorta. There are multi-level degenerative changes of the thoracic spine. There is a Mediport in place within the left anterior chest wall. There is stable postsurgical changes within the right axilla and right breast. There is a right supraclavicular lymph node that has decreased in size since the prior examination and no longer enhances. Please note there is a separate dedicated CT report of the abdomen and pelvis. CT/Chest WITH Contrast IMPRESSION: Interval decrease in size of right supraclavicular lymph node that no longer enhances. No evidence of metastases. Electronically Signed: Jina Arciniega MD at 19:24 EST Tel , Service support , CC: Jacinto Person MD; Clifford aBrakat DO Family And Consumer Education Teacher: Signed CBC W/DIFF, AUTOMATED Collected: 03/21/2018 Status: F Source: [place] 1:17 PM [facility] [place] REPOSITORY TYPE CODE TESTS RESULT OUT OF RANGE REFERENCE UNITS LAB L100.1000 4.4-11.0 K/mm3 Low WBC 3.6 LAB L100.1200 4.2-5.4 M/mm3 Low RBC 3.13 LAB L100.1300 12.0-15.0 g/dl Low HGB 9.7 LAB L100.1400 37-47 % Low HCT 29.6 LAB L100.1500 81-99 fL Normal MCV 94.6 LAB L100.1600 27.0-32.0 pg Normal MCH 31.0 LAB L100.1700 32-36 g/gl Normal MCHC 32.8 LAB L100.1810 11.6-14.6 % Normal RDW CV 11.8 LAB L100.1820 35.1-43.9 fl Normal RDW SD 38.8 LAB L100.1900 150-450 K/mm3 Normal PLT 277 LAB L100.2000 6.2-12.0 fl Normal MPV 8.9 LAB L100.2100 47-70 % Normal NEUT% 49.2 LAB L100.2200 19-41 % High LY% 42.4 LAB L100.2300 0-10 % Normal MONO% 7.5 LAB L100.2400 0-5 % Normal EO% 0.3 LAB L100.2500 0-1 % Normal BASO% 0.3 LAB L100.2550 0.0-0.9 % Normal IM GRAN % 0.300 Result Comment: IG% - Immature Granulocytes (promyelocytes, myelocytes and metamyelocytes) > 1% indicates that a LEFT SHIFT is Present. LAB L100.2620 2.0-7.7 X10 3/uL Low Absolute Neut 1.8 LAB L100.2720 0.83-4.51 X10 3/ul Normal Absolute Lymph 1.53 Performed By: #### L100.0100 #### [facility] [address] [place], [place], [id number] BASIC METABOLIC Collected: 03/21/2018 Status: F Source: [place] PROFILE ([place]) 1:17 PM [facility] [place] REPOSITORY TYPE CODE TESTS RESULT OUT OF RANGE REFERENCE UNITS LAB L501.0100 74-106 mg/dL High GLU 433 Result Comment: Glucose result greater than or equal to 200 mg/dL suggests DIABETES MELLITUS per A.D.A. criteria. Please note revised GLUCOSE reference range effective 2017. LAB L501.1000 7-18 mg/dL High BUN 27 LAB L501.1100 0.55-1.02 mg/dL Normal CREAT,SERUM 0.88 Result Comment: The validity of the calculated GFR AND GFRAA in patients over 70 years has not been determined. Clinical correlation is essential. LAB L501.1110 >60 mL/min Normal EST GFR 73 Result Comment: Non- GFR Calc LAB L501.1115 >60 mL/min Normal EST GFR - AA 88 Result Comment: GFR Calc LAB L501.1300 10-20 RATIO High BUN/CRE 30.6 LAB L501.2200 8.5-10.1 mg/dL Low CA 8.1 LAB L501.5300 136-145 mmol/L NA Normal 136 LAB L501.5600 3.5-5.1 mmol/L K Normal 4.1 LAB L501.5900 98-107 mmol/L CL Normal 99 LAB L501.6100 21.0-32.0 mmol/L Normal CO2 28.0 LAB L501.6200 5-15 Normal GAP 9 Performed By: #### L500.2500, L500.3400 #### [facility] [address] [place], [place], [address] LIVER PROFILE Collected: 03/21/2018 Status: F Source: [place] 1:17 PM [facility] [place] REPOSITORY TYPE CODE TESTS RESULT OUT OF RANGE REFERENCE UNITS LAB L501.1500 6.4-8.2 g/dL Normal T PROT 7.6 LAB L501.1800 3.2-5.0 g/dL Low ALB 2.9 LAB L501.1950 2.2-4.2 g/dL High GLOB 4.7 LAB L501.4100 15-37 U/L Low AST 10 LAB L501.4305 45-117 U/L Normal ALK P 109 LAB L501.4405 13-56 U/L Normal ALT 18 LAB L501.4600 0.20-1.00 mg/dL Low T BILI 0.10 LAB L501.4700 0.00-0.30 mg/dL Normal D BILI 0.08 Performed By: #### L500.2500, L500.3400 #### [facility] [address] [place], [address] [facility] Observed: 03/21/2018 Status: COMPLETED Source: [place] 12:00 AM [facility] REPOSITORY Telephone (DANYEL) PEDRO LUIS WILCOX ([id number]) 1970 F Date Time Provider Department 03/21/18 CLIFFORD BARAKAT During your visit today, we recorded the following information about you: Roland Gallegos PSR 03/21/2018 8:40 AM Signed Patient called to update Dr. Barakat about her condition. She stated that she called Dr. Barakat at about 6AM and told him that she was experiencing severe pain while walking. Dr. Barakat told her to take a Vicodin and 3 Ibuprofen and call again in a few hours with an update. Patient is reporting that the pain has lessened since then, but has not gone away. She would like to know whether she should continue to take the Vicodin and Ibuprofen or not and what she should do regarding her chemo. Please advise patient Thanks Roland Gallegos PSR Clifford Barakat DO 03/21/2018 9:01 AM Signed Okay for her to continue chemotherapy today if she feels up to it. I would advise taking ibuprofen 3 tablets every 6 hours for the next day or 2 until the pain significantly subsides. She can use of Vicodin tablet 1 every 6 hours if the pain is not controlled adequately with ibuprofen. DO Federica Banda LPN 03/21/2018 9:28 AM Signed Patient notified but has already cancelled chemo for today. Patient asking if she should reschedule treatment for tomorrow. Federica Barakat DO 03/21/2018 9:42 AM Signed Yes. DO Federica Banda LPN 03/21/2018 9:44 AM Signed Patient notified. Federica Pimentel LPN Allergies As of Date: 03/21/2018 (No Known Allergies) Date Reviewed: 03/06/2018 Reviewed by: Federica Pimentel LPN - Fully Assessed Reason for Visit: Information [1328] Prescriptions as of 03/21/2018 Sig: FUROSEMIDE 20 MG TABLET Take 2 tablets by mouth once * POTASSIUM CHLORIDE ER 20 MEQ * Take 1 tablet by mouth once d* PROMETHAZINE 25 MG TABLET Take 1 tablet by mouth every * Patient not taking: Reported on 01/23/2018 HYDROCODONE 5 MG-ACETAMINOPHE* Take 1 tablet by mouth twice * METOCLOPRAMIDE 10 MG TABLET Take 1 tablet by mouth every * GABAPENTIN 300 MG CAPSULE Take 1 capsule by mouth three* TIMOLOL 0.5 % EYE DROPS Use 1 Drop in both eyes once * DICYCLOMINE 20 MG TABLET Take 20 mg by mouth every 8 h* LORAZEPAM 1 MG TABLET Take 1 tablet by mouth every * CITALOPRAM 20 MG TABLET Take 1 tablet by mouth once d* CLONAZEPAM 0.5 MG TABLET 1 tablet twice daily. PRN NITROFURANTOIN MONOHYDRATE AND * Take 100 mg by mouth twice da* EMPAGLIFLOZIN 10 MG TABLET Take 10 mg by mouth once gamaliel* VITAMIN B COMPLEX CAPSULE Take 1 capsule by mouth twice* CREON ORAL Take 6,000 Units by mouth. Wi* VALACYCLOVIR 500 MG TABLET Take 500 mg by mouth as neede* ERGOCALCIFEROL (VITAMIN D2) 5* Take 50,000 Units by mouth on* * INSULIN GLARGINE (U-100) 100 * Take 50 in am and 70 units in* * HUMALOG KWIKPEN (U-100) INSUL* 15 in am, 15 noon, 20 in philip Problem List As Of Date 03/21/2018 Noted Resolved THYROID NODULE [E04.1] INVALID FOR* More... Anxiety State, Unspecified [F41.1] 01/22/2009 Depressive Disorder, not Elsewhere Classified [* More... DM w/o complication type II, uncontrolled [E11.*INVALID FOR* More... Other Malaise and Fatigue [R53.81, R53.83] INVALID FOR*01/22/2009 More... HYPERLIPIDEMIA NEC/NOS [E78.5] INVALID FOR* FIBROMYALGIA [USG8640] INVALID FOR* OVERWEIGHT [E66.9] INVALID FOR* OTHER HAMMER TOE [M20.40] INVALID FOR* More... URIN TRACT INFECTION RECURRENT [N39.0] INVALID FOR*01/21/2016 More... GENITAL HERPES NOS [A60.00] INVALID FOR* Tobacco Use Disorder [F17.200] INVALID FOR* More... CONGENITAL PES PLANUS [Q66.50] INVALID FOR* Displacement of Lumbar Intervertebral Disc with*INVALID FOR* More... More... Routine Gynecological Examination [Z01.419] INVALID FOR* Class: Chronic More... 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*INVALID FOR* Malignant neoplasm metastatic to left lung (HCC*INVALID FOR* Examination of participant in clinical trial [Z*INVALID FOR* Bone metastases (HCC) [C79.51] INVALID FOR* Encounter Status:Closed by ROLAND GAYTAN on 03/21/18 CBC W/DIFF, AUTOMATED Collected: 03/13/2018 Status: F Source: [place] 10:40 AM [facility] REPOSITORY TYPE CODE TESTS RESULT OUT OF RANGE REFERENCE UNITS LAB L100.1000 4.4-11.0 K/mm3 Normal WBC 6.0 LAB L100.1200 4.2-5.4 M/mm3 Low RBC 3.47 LAB L100.1300 12.0-15.0 g/dl Low HGB 10.8 LAB L100.1400 37-47 % Low HCT 32.6 LAB L100.1500 81-99 fL Normal MCV 93.9 LAB L100.1600 27.0-32.0 pg Normal MCH 31.1 LAB L100.1700 32-36 g/gl Normal MCHC 33.1 LAB L100.1810 11.6-14.6 % Normal RDW CV 12.7 LAB L100.1820 35.1-43.9 fl Normal RDW SD 43.4 LAB L100.1900 150-450 K/mm3 Normal PLT 282 LAB L100.2000 6.2-12.0 fl Normal MPV 9.5 LAB L100.2100 47-70 % Normal NEUT% 69.1 LAB L100.2200 19-41 % Normal LY% 22.0 LAB L100.2300 0-10 % Normal MONO% 8.0 LAB L100.2400 0-5 % Normal EO% 0.5 LAB L100.2500 0-1 % Normal BASO% 0.2 LAB L100.2550 0.0-0.9 % Normal IM GRAN % 0.200 Result Comment: IG% - Immature Granulocytes (promyelocytes, myelocytes and metamyelocytes) > 1% indicates that a LEFT SHIFT is Present. LAB L100.2620 2.0-7.7 X10 3/uL Normal Absolute Neut 4.2 LAB L100.2720 0.83-4.51 X10 3/ul Normal Absolute Lymph 1.32 Performed By: #### L100.0100 #### [facility] [address] [facility] [place], [place], [id number] BASIC METABOLIC Collected: 03/13/2018 Status: F Source: [place] PROFILE ([place]) 10:40 AM [facility] [place] REPOSITORY TYPE CODE TESTS RESULT OUT OF RANGE REFERENCE UNITS LAB L501.0100 74-106 mg/dL High GLU 280 Result Comment: Glucose result greater than or equal to 200 mg/dL suggests DIABETES MELLITUS per A.D.A. criteria. Please note revised GLUCOSE reference range effective 2017. LAB L501.1000 7-18 mg/dL High BUN 28 LAB L501.1100 0.55-1.02 mg/dL Normal CREAT,SERUM 0.85 Result Comment: The validity of the calculated GFR AND GFRAA in patients over 70 years has not been determined. Clinical correlation is essential. LAB L501.1110 >60 mL/min Normal EST GFR 75 Result Comment: Non- GFR Calc LAB L501.1115 >60 mL/min Normal EST GFR - AA 91 Result Comment: GFR Calc LAB L501.1300 10-20 RATIO High BUN/CRE 32.8 LAB L501.2200 8.5-10.1 mg/dL CA Normal 9.6 LAB L501.5300 136-145 mmol/L NA Normal 140 LAB L501.5600 3.5-5.1 mmol/L K Normal 4.0 LAB L501.5900 98-107 mmol/L CL Normal 100 LAB L501.6100 21.0-32.0 mmol/L Normal CO2 28.0 LAB L501.6200 5-15 Normal GAP 12 Performed By: #### L500.2500, L500.3400 #### [facility] [address] [place], [place], [id number] LIVER PROFILE Collected: 03/13/2018 Status: F Source: [place] 10:40 AM [facility] [place] REPOSITORY TYPE CODE TESTS RESULT OUT OF RANGE REFERENCE UNITS LAB L501.1500 6.4-8.2 g/dL Normal T PROT 8.0 LAB L501.1800 3.2-5.0 g/dL Low ALB 3.1 LAB L501.1950 2.2-4.2 g/dL High GLOB 4.9 LAB L501.4100 15-37 U/L Low AST 12 LAB L501.4305 45-117 U/L High ALK P 119 LAB L501.4405 13-56 U/L Normal ALT 21 LAB L501.4600 0.20-1.00 mg/dL Normal T BILI 0.20 LAB L501.4700 0.00-0.30 mg/dL Normal D BILI 0.07 Performed By: #### L500.2500, L500.3400 #### [facility] [address] [place], [place], [id number] PROGRESS Observed: 03/06/2018 Status: COMPLETED Source: [place] 9:25 AM [facility] REPOSITORY HNO ID: [id number] Author: Clifford Barakat Service: (none) Author Type: Physician Type: Progress Notes Filed: 03/06/2018 9:49 AM Note Text: Diagnosis: 1) Breast cancer. 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 Her mother has a h/o breast cancer, so patient had been undergoing annual mammogram. The patient underwent a screening mammogram on 08/30/2013. A 1.6 cm nodular density was appreciated in the tail of the right breast. She underwent targeted ultrasound the same day. That study revealed a 9 mm hypoechoic solid nodule at the 10:00 position of the breast measuring 6 cm from the nipple. Stereotactic core needle biopsy on 09/13/2013. The tissue revealed invasive poorly differentiated ductal carcinoma. The specimen was negative for both estrogen and progesterone receptors. Both were quantified at 0%. HER-2 was 2+ an immunostain and nonamplified by FISH testing. The patient underwent an MRI of the breast on 09/20/2013. The study revealed that the left breast had no suspicious findings. In the right breast there was a 1.6 cm abnormal enhancing mass in the superior outer aspect of the right breast approximately 10 cm from the nipple. This correlated to the biopsy area. Underwent partial mastectomy with SLN biopsy 10/05/2013. The final pathology revealed an invasive poorly differentiated ductal carcinoma measuring 1.3 cm in size. There was a single focus. DCIS was present measuring 2 mm in maximum dimension. The grade of the cancer was 3. Margins were negative. The closest was 6 mm. Lymphovascular invasion was not identified. One sentinel lymph node was retrieved. It was negative. Previous therapy: 1) Received two cycles of TC adjuvantly. Admitted for severe PAGE. Work up negative, then admitted 12/17/2013 due to increase in thigh pain and dyspnea. Markedly elevated CK. No increase in serum Cr. Chemotherapy stopped after cycle #2. Was seen by ornamental plasterer helper at . 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 2) Completed radiation 03/26/2014. ------- She started developing intermittent shortness of breath with exertion. She also has a cough that is a dry cough. She was taken off her PAM inhibitor but the cough has not changed. She had a PA and lateral chest film done on 10/22/2016 that demonstrated no abnormality. She then underwent a CT scan the chest without IV contrast on 11/06/2016. Two nodules were observed in the pulmonary parenchyma. One was located in the right lower lobe and the second was located in the lingular lobe. Each measured 8 mm and were thought to be consistent with metastatic disease. CT of the abdomen and pelvis on 11/20/2016 as well as repeat CT chest with IV contrast demonstrated a thick walled gallbladder suspicious for cystitis, chronic and redemonstration of the lung nodules. No concern for metastatic disease in the abdomen or pelvis. Brain MRI on 11/23/2016 was normal. PET scan demonstrated multiple foci of increased glucose concentration manifested in the right axilla, significant region generating a standard uptake value of 7.6. The maximal axial diameter the largest individual hypermetabolic soft tissue density on review of the CT of the thorax was approximately 23.1 mm in transverse dimension. An ultrasound of the right axilla and subclavicular region on 12/02/2016 demonstrated that within the right axilla there was a cluster of abnormal appearing hypoechoic nodules. The largest measured 2.3 x 1.50 1.4 cm. In the subclavicular region there was also evidence of several hypoechoic nodules the largest measuring 2.75 x 2.85 1.5 cm. She then underwent a right axillary core needle biopsy on 12/07/2016. The pathology demonstrated a poorly differentiated metastatic carcinoma. The specimen was negative for both ER and KS as well as HER- 2. I discussed the case with the pathologist today who told me that histologically/morphologically the specimen was consistent with her previous specimen of breast cancer. The pathologist will issue an addendum quantifying ER and KS 0 as well as HER-2 at 0. She had a stress test and echocardiogram about 3 years ago and had no evidence of coronary artery disease. She had LV concentric hypertrophy with preserved ejection fraction. She underwent port placement along with right axillary lymph node dissection on 12/24/2016. MICROSCOPIC DIAGNOSIS Right axillary lymph nodes, regional lymph adenectomy: One out of seven lymph nodes with metastatic poorly differentiated carcinoma. See comment. COMMENT Immunohistochemistry ([id number]) does not rule out a breast primary. There is focal perinodal extension of tumor. Clinical correlation is suggested. ANTIBODY / CLONE RESULT Block 1 Mammaglobin (31A5) negative GATA3 (L50-823) positive, rare, dim CK8 (59thwxH87) positive Ki-67 (30-9) positive, moderate to high ER (6F11) negative 0% KS (1E2) negative 0% CK19 (A53-B/A2.26) positive Cyclin D1/BCL-1 (SP4) positive CEA (11-7/TF-3HB-1) negative SHELLI (E29) positive CK20 (KS20.8) negative Villin (CWWB1) negative RCC (PN-15) negative CA125 (OC125) positive Previous therapy for metastatic disease: 1) Cisplatin (+/- PARP inhibitor on trial). 2) Houck/carbo. She underwent a CT scan of the neck, chest abdomen and pelvis at [facility] on 10/05/2017. The CT of the neck revealed an abnormal enhancing right subclavicular lymph node measuring 2.6 x 2.0 x 2.2 cm. There were no other significant abnormalities. CT of the chest corroborated the CT neck findings with a 2.6 x 1.5 mm lymph node in the right supraclavicular region. The abdominopelvic images revealed no evidence of metastatic disease. Bone scan done 10/07/2017 showed some increase in radiopharmaceutical concentration in the distal sternum and in the right posterior and anterior lateral ribs potentially representing limited skeletal metastatic disease. Came off trial. She was seen at [facility] and did not qualify for the 2 clinical trials available due to her pre-existing diabetic neuropathy and history of type 1 diabetes. Current therapy: 1) Gemcitabine single agent. Interim history: MRI left femur disclosed no metastasis in the greater trochanter but radiologist thought study was not optimized due to patient positioning. No worsening of neuropathy. Still has anticipatory nausea and vomiting after chemotherapy, but this is predictable and manageable. No other side effects. She's using Ativan. PMH, medications and allergies as below personally reviewed by me today. Any changes documented in appropriate section. PHYSICAL EXAM: Vitals: Blood pressure 159/88, pulse 100, temperature 37 ?C (98.6 ?F), temperature source Oral, weight 89.6 kg (197 lb 8 oz). Well-appearing and in no acute distress. EYES: Sclerae are anicteric bilaterally. NECK: Supple. LYMPHATIC: The firmly enlarged mobile right supraclavicular lymph node measuring approximately 2 cm close to the base of the neck remains stable. No other peripheral adenopathy. RESPIRATORY: Inspiratory breath sounds are of normal intensity in all norris. No rales, wheezes or rhonchi. CARDIOVASCULAR: Rhythm is regular. Normal intensity S1/S2. There is no gallop or murmur. ABDOMEN: The abdomen is nondistended. No organomegaly. No tenderness. Extremities: Swelling at ankles to about mid calf b/l. SKIN: No jaundice or rash. No petechiae. NEUROLOGIC: station attendant II-XII are grossly intact. No focal motor weakness. Patellar DTRs absent. ASSESSMENT/PLAN: (C50.411, Z17.1) Malignant neoplasm of upper-outer quadrant of right breast in female, estrogen receptor negative (HCC) (primary encounter diagnosis) (C79.51) Bone metastases (HCC) Complicated by severe myositis during adjuvant chemotherapy. -KPS is 90%. -Biopsy-proven local regional recurrence. -Sensory neuropathy stable. -Personally reviewed CT images. Stable disease with regards to the left lingular lung metastasis and right cervical lymph node. -Testing for MMR status via IHC returned 01/26/2018 showing MMR proficient status. Please see scanned report. -She is tolerating single agent gemcitabine very well with no worsening of neuropathy. Right supra-clavicular lymph node is stable by exam. Plan: -Okay to proceed with next cycle treatment. -Begin Zometa with day 1 next week and administer every 6 weeks to one side with chemotherapy--insurance hadn't approved at time of last cycle start. -Increase Lasix to 40 mg daily. -Compression stockings if above doesn't help. She's has old pair on hand. -CT scans and bone scan in about a month. Clifford Barakat DO CNOVSP Observed: 03/06/2018 Status: COMPLETED Source: [place] 9:10 AM [facility] REPOSITORY Visit (SP) Office (DANYEL) PEDRO LUIS WILCOX ([id number]) 1970 F Date Time Provider Department 03/06/18 9:10 AM CLIFFORD BARAKAT During your visit today, we recorded the following information about you: Temperature Pulse Blood pressure Weight 98.6 degrees 100/minute 159/88 89.6 kg Federica Pimentel LPN 03/06/2018 9:41 AM Signed Est patient. Three week office visit. Federica Barakat DO 03/06/2018 9:49 AM Signed Diagnosis: 1) Breast cancer. 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 Her mother has a h/o breast cancer, so patient had been undergoing annual mammogram. The patient underwent a screening mammogram on 08/30/2013. A 1.6 cm nodular density was appreciated in the tail of the right breast. She underwent targeted ultrasound the same day. That study revealed a 9 mm hypoechoic solid nodule at the 10:00 position of the breast measuring 6 cm from the nipple. Stereotactic core needle biopsy on 09/13/2013. The tissue revealed invasive poorly differentiated ductal carcinoma. The specimen was negative for both estrogen and progesterone receptors. Both were quantified at 0%. HER-2 was 2+ an immunostain and nonamplified by FISH testing. The patient underwent an MRI of the breast on 09/20/2013. The study revealed that the left breast had no suspicious findings. In the right breast there was a 1.6 cm abnormal enhancing mass in the superior outer aspect of the right breast approximately 10 cm from the nipple. This correlated to the biopsy area. Underwent partial mastectomy with SLN biopsy 10/05/2013. The final pathology revealed an invasive poorly differentiated ductal carcinoma measuring 1.3 cm in size. There was a single focus. DCIS was present measuring 2 mm in maximum dimension. The grade of the cancer was 3. Margins were negative. The closest was 6 mm. Lymphovascular invasion was not identified. One sentinel lymph node was retrieved. It was negative. Previous therapy: 1) Received two cycles of TC adjuvantly. Admitted for severe PAGE. Work up negative, then admitted 12/17/2013 due to increase in thigh pain and dyspnea. Markedly elevated CK. No increase in serum Cr. Chemotherapy stopped after cycle #2. Was seen by ornamental plasterer helper at . 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 2) Completed radiation 03/26/2014. --- She started developing intermittent shortness of breath with exertion. She also has a cough that is a dry cough. She was taken off her PAM inhibitor but the cough has not changed. She had a PA and lateral chest film done on 10/22/2016 that demonstrated no abnormality. She then underwent a CT scan the chest without IV contrast on 11/06/2016. Two nodules were observed in the pulmonary parenchyma. One was located in the right lower lobe and the second was located in the lingular lobe. Each measured 8 mm and were thought to be consistent with metastatic disease. CT of the abdomen and pelvis on 11/20/2016 as well as repeat CT chest with IV contrast demonstrated a thick walled gallbladder suspicious for cystitis, chronic and redemonstration of the lung nodules. No concern for metastatic disease in the abdomen or pelvis. Brain MRI on 11/23/2016 was normal. PET scan demonstrated multiple foci of increased glucose concentration manifested in the right axilla, significant region generating a standard uptake value of 7.6. The maximal axial diameter the largest individual hypermetabolic soft tissue density on review of the CT of the thorax was approximately 23.1 mm in transverse dimension. An ultrasound of the right axilla and subclavicular region on 12/02/2016 demonstrated that within the right axilla there was a cluster of abnormal appearing hypoechoic nodules. The largest measured 2.3 x 1.50 1.4 cm. In the subclavicular region there was also evidence of several hypoechoic nodules the largest measuring 2.75 x 2.85 1.5 cm. She then underwent a right axillary core needle biopsy on 12/07/2016. The pathology demonstrated a poorly differentiated metastatic carcinoma. The specimen was negative for both ER and KS as well as HER-2. I discussed the case with the pathologist today who told me that histologically/morphologically the specimen was consistent with her previous specimen of breast cancer. The pathologist will issue an addendum quantifying ER and KS 0 as well as HER-2 at 0. She had a stress test and echocardiogram about 3 years ago and had no evidence of coronary artery disease. She had LV concentric hypertrophy with preserved ejection fraction. She underwent port placement along with right axillary lymph node dissection on 12/24/2016. MICROSCOPIC DIAGNOSIS Right axillary lymph nodes, regional lymph adenectomy: One out of seven lymph nodes with metastatic poorly differentiated carcinoma. See comment. COMMENT Immunohistochemistry ([id number]) does not rule out a breast primary. There is focal perinodal extension of tumor. Clinical correlation is suggested. ANTIBODY / CLONE RESULT Block 1 Mammaglobin (31A5) negative GATA3 (L50-823) positive, rare, dim CK8 (44eupqB04) positive Ki-67 (30-9) positive, moderate to high ER (6F11) negative 0% KS (1E2) negative 0% CK19 (A53-B/A2.26) positive Cyclin D1/BCL-1 (SP4) positive CEA (11-7/TF-3HB-1) negative SHELLI (E29) positive CK20 (KS20.8) negative Villin (CWWB1) negative RCC (PN-15) negative CA125 (OC125) positive Previous therapy for metastatic disease: 1) Cisplatin (+/- PARP inhibitor on trial). 2) Houck/carbo. She underwent a CT scan of the neck, chest abdomen and pelvis at [facility] on 10/05/2017. The CT of the neck revealed an abnormal enhancing right subclavicular lymph node measuring 2.6 x 2.0 x 2.2 cm. There were no other significant abnormalities. CT of the chest corroborated the CT neck findings with a 2.6 x 1.5 mm lymph node in the right supraclavicular region. The abdominopelvic images revealed no evidence of metastatic disease. Bone scan done 10/07/2017 showed some increase in radiopharmaceutical concentration in the distal sternum and in the right posterior and anterior lateral ribs potentially representing limited skeletal metastatic disease. Came off trial. She was seen at [facility] and did not qualify for the 2 clinical trials available due to her pre-existing diabetic neuropathy and history of type 1 diabetes. Current therapy: 1) Gemcitabine single agent. Interim history: MRI left femur disclosed no metastasis in the greater trochanter but radiologist thought study was not optimized due to patient positioning. No worsening of neuropathy. Still has anticipatory nausea and vomiting after chemotherapy, but this is predictable and manageable. No other side effects. She's using Ativan. PMH, medications and allergies as below personally reviewed by me today. Any changes documented in appropriate section. PHYSICAL EXAM: Vitals: Blood pressure 159/88, pulse 100, temperature 37 ?C (98.6 ?F), temperature source Oral, weight 89.6 kg (197 lb 8 oz). Well-appearing and in no acute distress. EYES: Sclerae are anicteric bilaterally. NECK: Supple. LYMPHATIC: The firmly enlarged mobile right supraclavicular lymph node measuring approximately 2 cm close to the base of the neck remains stable. No other peripheral adenopathy. RESPIRATORY: Inspiratory breath sounds are of normal intensity in all norris. No rales, wheezes or rhonchi. CARDIOVASCULAR: Rhythm is regular. Normal intensity S1/S2. There is no gallop or murmur. ABDOMEN: The abdomen is nondistended. No organomegaly. No tenderness. Extremities: Swelling at ankles to about mid calf b/l. SKIN: No jaundice or rash. No petechiae. NEUROLOGIC: station attendant II-XII are grossly intact. No focal motor weakness. Patellar DTRs absent. ASSESSMENT/PLAN: (C50.411, Z17.1) Malignant neoplasm of upper-outer quadrant of right breast in female, estrogen receptor negative (HCC) (primary encounter diagnosis) (C79.51) Bone metastases (HCC) Complicated by severe myositis during adjuvant chemotherapy. -KPS is 90%. -Biopsy-proven local regional recurrence. -Sensory neuropathy stable. -Personally reviewed CT images. Stable disease with regards to the left lingular lung metastasis and right cervical lymph node. -Testing for MMR status via IHC returned 01/26/2018 showing MMR proficient status. Please see scanned report. -She is tolerating single agent gemcitabine very well with no worsening of neuropathy. Right supra-clavicular lymph node is stable by exam. Plan: -Okay to proceed with next cycle treatment. -Begin Zometa with day 1 next week and administer every 6 weeks to one side with chemotherapy--insurance hadn't approved at time of last cycle start. -Increase Lasix to 40 mg daily. -Compression stockings if above doesn't help. She's has old pair on hand. -CT scans and bone scan in about a month. Clifford Barakat DO Referring Provider: CLIFFORD BARAKAT [[id number]] Allergies As of Date: 03/06/2018 (No Known Allergies) Date Reviewed: 03/06/2018 Reviewed by: Federica Pimentel LPN - Fully Assessed Reason for Visit: Established Patient [175] Primary Visit Diagnosis:Malignant neoplasm of upper-outer quadrant of right breast in female, estrogen receptor negative (HCC) [C50.411, Z17.1] Other Visit Diagnoses:Malignant neoplasm metastatic to left lung (HCC) [C78.02] Bone metastases (HCC) [C79.51] Order(s):CT ABD/PEL W IVCON [[id number]] Order #: [id number] FUTURE CT CHEST W IVCON [[id number]] Order #: [id number] FUTURE iv contrast (will be provided with radiology test)CT Chest ABD/PEL-Inject, intravenously, once for 1 dose.No IV access, insert saline lock prior to the beginning of sedation, infusion, injection of imaging exam. Discontinue saline lock post exam. If Pt. has a central line or IVAD, may access for administration according to line specific nursing protocol. Once exam is complete flush line and de-access according to line specific nursing protocol in the CT contrast administration guidelines link.Disp: 1 EachRfl: 0 enteric contrast (will be provided with radiology test)For CT CHESTABD/PEL W IVCON Routine order Administer, As Directed One Time Only, via Oral, Rectal, both Oral and Rectal, Enteric Tube, Stoma or Indwelling Catheter, Enteric Contrast as designated per enteric contrast guidelinesDisp: 1 EachRfl: 0 NM BONE WHOLE BODY [[id number]] Order #: [id number] FUTURE furosemide (LASIX) 20 mg tabletTake 2 tablets by mouth once daily.Disp: 60 tabletRfl: 2 Follow-up and Disposition History Recorded Prescriptions as of 03/06/2018 Sig: FUROSEMIDE 20 MG TABLET Take 2 tablets by mouth once * POTASSIUM CHLORIDE ER 20 MEQ * Take 1 tablet by mouth once d* HYDROCODONE 5 MG-ACETAMINOPHE* Take 1 tablet by mouth twice * METOCLOPRAMIDE 10 MG TABLET Take 1 tablet by mouth every * GABAPENTIN 300 MG CAPSULE Take 1 capsule by mouth three* TIMOLOL 0.5 % EYE DROPS Use 1 Drop in both eyes once * DICYCLOMINE 20 MG TABLET Take 20 mg by mouth every 8 h* LORAZEPAM 1 MG TABLET Take 1 tablet by mouth every * CITALOPRAM 20 MG TABLET Take 1 tablet by mouth once d* CLONAZEPAM 0.5 MG TABLET 1 tablet twice daily. PRN NITROFURANTOIN MONOHYDRATE AND * Take 100 mg by mouth twice da* EMPAGLIFLOZIN 10 MG TABLET Take 10 mg by mouth once gamaliel* VITAMIN B COMPLEX CAPSULE Take 1 capsule by mouth twice* CREON ORAL Take 6,000 Units by mouth. Wi* VALACYCLOVIR 500 MG TABLET Take 500 mg by mouth as neede* ERGOCALCIFEROL (VITAMIN D2) 5* Take 50,000 Units by mouth on* * INSULIN GLARGINE (U-100) 100 * Take 50 in am and 70 units in* * HUMALOG KWIKPEN (U-100) INSUL* 15 in am, 15 noon, 20 in philip IV CONTRAST (RADIOLOGY PROCED* CT Chest ABD/PEL-Inject, intr* ENTERIC CONTRAST (RADIOLOGY P* For CT CHESTABD/PEL W IVCON R* PROMETHAZINE 25 MG TABLET Take 1 tablet by mouth every * Patient not taking: Reported on 01/23/2018 Problem List As Of Date 03/06/2018 Noted Resolved THYROID NODULE [E04.1] INVALID FOR* More... Anxiety State, Unspecified [F41.1] 01/22/2009 Depressive Disorder, not Elsewhere Classified [* Priority: Moderate More... DM w/o complication type II, uncontrolled [E11.*INVALID FOR* Priority: Severe More... Other Malaise and Fatigue [R53.81, R53.83] INVALID FOR*01/22/2009 More... HYPERLIPIDEMIA NEC/NOS [E78.5] INVALID FOR* FIBROMYALGIA [[id number]] INVALID FOR* Priority: Moderate OVERWEIGHT [E66.9] INVALID FOR* OTHER HAMMER TOE [M20.40] INVALID FOR* More... URIN TRACT INFECTION RECURRENT [N39.0] INVALID FOR*01/21/2016 More... GENITAL HERPES NOS [A60.00] INVALID FOR* Tobacco Use Disorder [F17.200] INVALID FOR* Priority: Moderate More... CONGENITAL PES PLANUS [Q66.50] INVALID FOR* Displacement of Lumbar Intervertebral Disc with*INVALID FOR* Priority: Moderate More... More... Routine Gynecological Examination [Z01.419] INVALID FOR* Class: Chronic More... 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*INVALID FOR* Malignant neoplasm metastatic to left lung (HCC*INVALID FOR* Examination of participant in clinical trial [Z*INVALID FOR* Bone metastases (HCC) [C79.51] INVALID FOR* Visit Notes: >> Federica Pimentel LPN Mon Mar 06, 2018 9:08 AM Status: Signed Est patient. Three week office visit. Federica Pimentel LPN Encounter Status:Closed by CLIFFORD BARAKAT DO on 03/06/18 CBC W/DIFF, AUTOMATED Collected: 02/28/2018 Status: F Source: [place] 7:36 AM [facility] [place] REPOSITORY TYPE CODE TESTS RESULT OUT OF RANGE REFERENCE UNITS LAB L100.1000 4.4-11.0 K/mm3 Low WBC 4.2 LAB L100.1200 4.2-5.4 M/mm3 Low RBC 3.02 LAB L100.1300 12.0-15.0 g/dl Low HGB 9.5 LAB L100.1400 37-47 % Low HCT 28.8 LAB L100.1500 81-99 fL Normal MCV 95.4 LAB L100.1600 27.0-32.0 pg Normal MCH 31.5 LAB L100.1700 32-36 g/gl Normal MCHC 33.0 LAB L100.1810 11.6-14.6 % Normal RDW CV 11.9 LAB L100.1820 35.1-43.9 fl Normal RDW SD 39.8 LAB L100.1900 150-450 K/mm3 Normal PLT 297 LAB L100.2000 6.2-12.0 fl Normal MPV 8.5 LAB L100.2100 47-70 % Normal NEUT% 49.4 LAB L100.2200 19-41 % Normal LY% 38.8 LAB L100.2300 0-10 % High MONO% 10.7 LAB L100.2400 0-5 % Normal EO% 0.7 LAB L100.2500 0-1 % Normal BASO% 0.2 LAB L100.2550 0.0-0.9 % Normal IM GRAN % 0.200 Result Comment: IG% - Immature Granulocytes (promyelocytes, myelocytes and metamyelocytes) > 1% indicates that a LEFT SHIFT is Present. LAB L100.2620 2.0-7.7 X10 3/uL Normal Absolute Neut 2.1 LAB L100.2720 0.83-4.51 X10 3/ul Normal Absolute Lymph 1.63 Performed By: #### L100.0100 #### [facility] [address] [place], [address] BASIC METABOLIC Collected: 02/28/2018 Status: F Source: [place] PROFILE (BMP) 7:36 AM [facility] [place] REPOSITORY TYPE CODE TESTS RESULT OUT OF RANGE REFERENCE UNITS LAB L501.0100 74-106 mg/dL High GLU 280 Result Comment: Glucose result greater than or equal to 200 mg/dL suggests DIABETES MELLITUS per A.D.A. criteria. Please note revised GLUCOSE reference range effective 2017. LAB L501.1000 7-18 mg/dL High BUN 23 LAB L501.1100 0.55-1.02 mg/dL Normal CREAT,SERUM 0.79 Result Comment: The validity of the calculated GFR AND GFRAA in patients over 70 years has not been determined. Clinical correlation is essential. LAB L501.1110 >60 mL/min Normal EST GFR 82 Result Comment: Non- GFR Calc LAB L501.1115 >60 mL/min Normal EST GFR - AA 100 Result Comment: GFR Calc LAB L501.1300 10-20 RATIO High BUN/CRE 29.1 LAB L501.2200 8.5-10.1 mg/dL CA Normal 8.5 LAB L501.5300 136-145 mmol/L NA Normal 136 LAB L501.5600 3.5-5.1 mmol/L K Normal 4.0 LAB L501.5900 98-107 mmol/L CL Normal 99 LAB L501.6100 21.0-32.0 mmol/L Normal CO2 30.0 LAB L501.6200 5-15 Normal GAP 7 Performed By: #### L500.2500, L500.3400 #### [facility] [address] [place], [place], [id number] LIVER PROFILE Collected: 02/28/2018 Status: F Source: [place] 7:36 AM [facility] [place] REPOSITORY TYPE CODE TESTS RESULT OUT OF RANGE REFERENCE UNITS LAB L501.1500 6.4-8.2 g/dL Normal T PROT 7.6 LAB L501.1800 3.2-5.0 g/dL Low ALB 2.9 LAB L501.1950 2.2-4.2 g/dL High GLOB 4.7 LAB L501.4100 15-37 U/L Low AST 12 LAB L501.4305 45-117 U/L Normal ALK P 104 LAB L501.4405 13-56 U/L Normal ALT 24 LAB L501.4600 0.20-1.00 mg/dL Normal T BILI 0.20 LAB L501.4700 0.00-0.30 mg/dL Normal D BILI < 0.05 Performed By: #### L500.2500, L500.3400 #### [facility] [address], [place], [id number] CBC W/DIFF, AUTOMATED Collected: 02/21/2018 Status: F Source: [place] 7:42 AM [facility] [place] REPOSITORY TYPE CODE TESTS RESULT OUT OF RANGE REFERENCE UNITS LAB L100.1000 4.4-11.0 K/mm3 Normal WBC 4.6 LAB L100.1200 4.2-5.4 M/mm3 Low RBC 3.22 LAB L100.1300 12.0-15.0 g/dl Low HGB 10.4 LAB L100.1400 37-47 % Low HCT 31.2 LAB L100.1500 81-99 fL Normal MCV 96.9 LAB L100.1600 27.0-32.0 pg High MCH 32.3 LAB L100.1700 32-36 g/gl Normal MCHC 33.3 LAB L100.1810 11.6-14.6 % Normal RDW CV 13.1 LAB L100.1820 35.1-43.9 fl Normal RDW SD 43.9 LAB L100.1900 150-450 K/mm3 Normal PLT 290 LAB L100.2000 6.2-12.0 fl Normal MPV 9.5 LAB L100.2100 47-70 % Normal NEUT% 58.8 LAB L100.2200 19-41 % Normal LY% 32.3 LAB L100.2300 0-10 % Normal MONO% 7.2 LAB L100.2400 0-5 % Normal EO% 1.3 LAB L100.2500 0-1 % Normal BASO% 0.2 LAB L100.2550 0.0-0.9 % Normal IM GRAN % 0.200 Result Comment: IG% - Immature Granulocytes (promyelocytes, myelocytes and metamyelocytes) > 1% indicates that a LEFT SHIFT is Present. LAB L100.2620 2.0-7.7 X10 3/uL Normal Absolute Neut 2.7 LAB L100.2720 0.83-4.51 X10 3/ul Normal Absolute Lymph 1.49 Performed By: #### L100.0100 #### [facility] [address] [place], [place], [address] BASIC METABOLIC Collected: 02/21/2018 Status: F Source: [place] PROFILE ([place]) 7:42 AM [facility] [place] REPOSITORY TYPE CODE TESTS RESULT OUT OF RANGE REFERENCE UNITS LAB L501.0100 74-106 mg/dL High GLU 213 Result Comment: Glucose result greater than or equal to 200 mg/dL suggests DIABETES MELLITUS per A.D.A. criteria. Please note revised GLUCOSE reference range effective 2017. LAB L501.1000 7-18 mg/dL High BUN 32 LAB L501.1100 0.55-1.02 mg/dL Normal CREAT,SERUM 0.66 Result Comment: The validity of the calculated GFR AND GFRAA in patients over 70 years has not been determined. Clinical correlation is essential. LAB L501.1110 >60 mL/min Normal EST GFR 101 Result Comment: Non- GFR Calc LAB L501.1115 >60 mL/min Normal EST GFR - AA 122 Result Comment: GFR Calc LAB L501.1300 10-20 RATIO High BUN/CRE 48.4 LAB L501.2200 8.5-10.1 mg/dL CA Normal 9.0 LAB L501.5300 136-145 mmol/L NA Normal 140 LAB L501.5600 3.5-5.1 mmol/L K Normal 3.8 LAB L501.5900 98-107 mmol/L CL Normal 102 LAB L501.6100 21.0-32.0 mmol/L Normal CO2 29.0 LAB L501.6200 5-15 Normal GAP 9 Performed By: #### L500.2500, L500.3400 #### [facility] Laboratory [address] [place], [place], [id number] LIVER PROFILE Collected: 02/21/2018 Status: F Source: [place] 7:42 AM [facility] [place] REPOSITORY TYPE CODE TESTS RESULT OUT OF RANGE REFERENCE UNITS LAB L501.1500 6.4-8.2 g/dL Normal T PROT 7.8 LAB L501.1800 3.2-5.0 g/dL Normal ALB 3.2 LAB L501.1950 2.2-4.2 g/dL High GLOB 4.6 LAB L501.4100 15-37 U/L Low AST 11 LAB L501.4305 45-117 U/L Normal ALK P 94 LAB L501.4405 13-56 U/L Normal ALT 19 LAB L501.4600 0.20-1.00 mg/dL Normal T BILI 0.20 LAB L501.4700 0.00-0.30 mg/dL Normal D BILI 0.06 Performed By: #### L500.2500, L500.3400 #### [facility] Laboratory [address] 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 Social Work for the following reason(s): disability planning PERSONS INTERVIEWED: patient INTERVENTION: Information AND Referral Service Co-ordination Affect/Mood: The patient is noted as appropriate IDENTIFIED PROBLEMS/NEEDS: Disability Intervention/Referral to be provided:No further intervention required IMPRESSION/PLAN: Patient dropped off paperwork for disability to on 02/13/18. SW completed and had doctor review/sign and complete unfinished sections. 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 Patient denies other needs. F/U APPOINTMENT: ANNAMARIA Nunez CNSW Observed: 02/14/2018 Status: COMPLETED Source: [place] 12:00 AM [facility] REPOSITORY Social Work (DANYEL) PEDRO LUIS WILCOX ([id number]) 1970 F Date Time Provider Department 02/14/18 ISHA SERVIN (HILARIO) DANYEL During your visit today, we recorded the following information about you: ANNAMARIA Schroeder 02/14/2018 9:14 AM Signed Social Work Problem Referral Note INFORMATION/REFERRAL : Pedro Luis Wilcox 47 year old female was referred by [facility] Social Work for the following reason(s): disability planning PERSONS INTERVIEWED: patient INTERVENTION: Information AND Referral Service Co-ordination Affect/Mood: The patient is noted as appropriate IDENTIFIED PROBLEMS/NEEDS: Disability Intervention/Referral to be provided:No further intervention required IMPRESSION/PLAN: Patient dropped off paperwork for disability to on 02/13/18. SW completed and had doctor review/sign and complete unfinished sections. 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 Patient denies other needs. F/U APPOINTMENT: ANNAMARIA Nunez Allergies As of Date: 02/14/2018 (No Known Allergies) Date Reviewed: 02/13/2018 Reviewed by: Clifford Barakat - Fully Assessed Reason for Visit: Social Work Services [507] Prescriptions as of 02/14/2018 Sig: FUROSEMIDE 20 MG TABLET Take 1 tablet by mouth once d* POTASSIUM CHLORIDE ER 20 MEQ * Take 1 tablet by mouth once d* PROMETHAZINE 25 MG TABLET Take 1 tablet by mouth every * Patient not taking: Reported on 01/23/2018 HYDROCODONE 5 MG-ACETAMINOPHE* Take 1 tablet by mouth twice * METOCLOPRAMIDE 10 MG TABLET Take 1 tablet by mouth every * GABAPENTIN 300 MG CAPSULE Take 1 capsule by mouth three* TIMOLOL 0.5 % EYE DROPS Use 1 Drop in both eyes once * DICYCLOMINE 20 MG TABLET Take 20 mg by mouth every 8 h* LORAZEPAM 1 MG TABLET Take 1 tablet by mouth every * CITALOPRAM 20 MG TABLET Take 1 tablet by mouth once d* CLONAZEPAM 0.5 MG TABLET 1 tablet twice daily. PRN NITROFURANTOIN MONOHYDRATE AND * Take 100 mg by mouth twice da* EMPAGLIFLOZIN 10 MG TABLET Take 10 mg by mouth once gamaliel* VITAMIN B COMPLEX CAPSULE Take 1 capsule by mouth twice* CREON ORAL Take 6,000 Units by mouth. Wi* VALACYCLOVIR 500 MG TABLET Take 500 mg by mouth as neede* ERGOCALCIFEROL (VITAMIN D2) 5* Take 50,000 Units by mouth on* * INSULIN GLARGINE (U-100) 100 * Take 50 in am and 70 units in* * HUMALOG KWIKPEN (U-100) INSUL* 15 in am, 15 noon, 20 in philip Problem List As Of Date 02/14/2018 Noted Resolved THYROID NODULE [E04.1] INVALID FOR* More... Anxiety State, Unspecified [F41.1] 01/22/2009 Depressive Disorder, not Elsewhere Classified [* Priority: Moderate More... DM w/o complication type II, uncontrolled [E11.*INVALID FOR* Priority: Severe More... Other Malaise and Fatigue [R53.81, R53.83] INVALID FOR*01/22/2009 More... HYPERLIPIDEMIA NEC/NOS [E78.5] INVALID FOR* FIBROMYALGIA [NKQ6231] INVALID FOR* Priority: Moderate OVERWEIGHT [E66.9] INVALID FOR* OTHER HAMMER TOE [M20.40] INVALID FOR* More... URIN TRACT INFECTION RECURRENT [N39.0] INVALID FOR*01/21/2016 More... GENITAL HERPES NOS [A60.00] INVALID FOR* Tobacco Use Disorder [F17.200] INVALID FOR* Priority: Moderate More... CONGENITAL PES PLANUS [Q66.50] INVALID FOR* Displacement of Lumbar Intervertebral Disc with*INVALID FOR* Priority: Moderate More... More... Routine Gynecological Examination [Z01.419] INVALID FOR* Class: Chronic More... 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*INVALID FOR* Malignant neoplasm metastatic to left lung (HCC*INVALID FOR* Examination of participant in clinical trial [Z*INVALID FOR* Bone metastases (HCC) [C79.51] INVALID FOR* Encounter Status:Closed by ISHA SERVIN on 02/14/18 PROGRESS Observed: 02/13/2018 Status: COMPLETED Source: [place] 9:36 AM [facility] REPOSITORY O ID: [id number] Author: Clifford Barakat Service: (none) Author Type: Physician Type: Progress Notes Filed: 02/13/2018 1:38 PM Note Text: Diagnosis: 1) Breast cancer. 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 Her mother has a h/o breast cancer, so patient had been undergoing annual mammogram. The patient underwent a screening mammogram on 08/30/2013. A 1.6 cm nodular density was appreciated in the tail of the right breast. She underwent targeted ultrasound the same day. That study revealed a 9 mm hypoechoic solid nodule at the 10:00 position of the breast measuring 6 cm from the nipple. Stereotactic core needle biopsy on 09/13/2013. The tissue revealed invasive poorly differentiated ductal carcinoma. The specimen was negative for both estrogen and progesterone receptors. Both were quantified at 0%. HER-2 was 2+ an immunostain and nonamplified by FISH testing. The patient underwent an MRI of the breast on 09/20/2013. The study revealed that the left breast had no suspicious findings. In the right breast there was a 1.6 cm abnormal enhancing mass in the superior outer aspect of the right breast approximately 10 cm from the nipple. This correlated to the biopsy area. Underwent partial mastectomy with SLN biopsy 10/05/2013. The final pathology revealed an invasive poorly differentiated ductal carcinoma measuring 1.3 cm in size. There was a single focus. DCIS was present measuring 2 mm in maximum dimension. The grade of the cancer was 3. Margins were negative. The closest was 6 mm. Lymphovascular invasion was not identified. One sentinel lymph node was retrieved. It was negative. Previous therapy: 1) Received two cycles of TC adjuvantly. Admitted for severe PAGE. Work up negative, then admitted 12/17/2013 due to increase in thigh pain and dyspnea. Markedly elevated CK. No increase in serum Cr. Chemotherapy stopped after cycle #2. Was seen by ornamental plasterer helper at . 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 2) Completed radiation 03/26/2014. ------- She started developing intermittent shortness of breath with exertion. She also has a cough that is a dry cough. She was taken off her PAM inhibitor but the cough has not changed. She had a PA and lateral chest film done on 10/22/2016 that demonstrated no abnormality. She then underwent a CT scan the chest without IV contrast on 11/06/2016. Two nodules were observed in the pulmonary parenchyma. One was located in the right lower lobe and the second was located in the lingular lobe. Each measured 8 mm and were thought to be consistent with metastatic disease. CT of the abdomen and pelvis on 11/20/2016 as well as repeat CT chest with IV contrast demonstrated a thick walled gallbladder suspicious for cystitis, chronic and redemonstration of the lung nodules. No concern for metastatic disease in the abdomen or pelvis. Brain MRI on 11/23/2016 was normal. PET scan demonstrated multiple foci of increased glucose concentration manifested in the right axilla, significant region generating a standard uptake value of 7.6. The maximal axial diameter the largest individual hypermetabolic soft tissue density on review of the CT of the thorax was approximately 23.1 mm in transverse dimension. An ultrasound of the right axilla and subclavicular region on 12/02/2016 demonstrated that within the right axilla there was a cluster of abnormal appearing hypoechoic nodules. The largest measured 2.3 x 1.50 1.4 cm. In the subclavicular region there was also evidence of several hypoechoic nodules the largest measuring 2.75 x 2.85 1.5 cm. She then underwent a right axillary core needle biopsy on 12/07/2016. The pathology demonstrated a poorly differentiated metastatic carcinoma. The specimen was negative for both ER and KS as well as HER- 2. I discussed the case with the pathologist today who told me that histologically/morphologically the specimen was consistent with her previous specimen of breast cancer. The pathologist will issue an addendum quantifying ER and KS 0 as well as HER-2 at 0. She had a stress test and echocardiogram about 3 years ago and had no evidence of coronary artery disease. She had LV concentric hypertrophy with preserved ejection fraction. She underwent port placement along with right axillary lymph node dissection on 12/24/2016. MICROSCOPIC DIAGNOSIS Right axillary lymph nodes, regional lymph adenectomy: One out of seven lymph nodes with metastatic poorly differentiated carcinoma. See comment. COMMENT Immunohistochemistry ([id number]) does not rule out a breast primary. There is focal perinodal extension of tumor. Clinical correlation is suggested. ANTIBODY / CLONE RESULT Block 1 Mammaglobin (31A5) negative GATA3 (L50-823) positive, rare, dim CK8 (37asosD64) positive Ki-67 (30-9) positive, moderate to high ER (6F11) negative 0% KS (1E2) negative 0% CK19 (A53-B/A2.26) positive Cyclin D1/BCL-1 (SP4) positive CEA (11-7/TF-3HB-1) negative SHELLI (E29) positive CK20 (KS20.8) negative Villin (CWWB1) negative RCC (PN-15) negative CA125 (OC125) positive Previous therapy for metastatic disease: 1) Cisplatin (+/- PARP inhibitor on trial). 2) Houck/carbo. She underwent a CT scan of the neck, chest abdomen and pelvis at [facility] on 10/05/2017. The CT of the neck revealed an abnormal enhancing right subclavicular lymph node measuring 2.6 x 2.0 x 2.2 cm. There were no other significant abnormalities. CT of the chest corroborated the CT neck findings with a 2.6 x 1.5 mm lymph node in the right supraclavicular region. The abdominopelvic images revealed no evidence of metastatic disease. Bone scan done 10/07/2017 showed some increase in radiopharmaceutical concentration in the distal sternum and in the right posterior and anterior lateral ribs potentially representing limited skeletal metastatic disease. Came off trial. She was seen at [facility] and did not qualify for the 2 clinical trials available due to her pre-existing diabetic neuropathy and history of type 1 diabetes. Current therapy: 1) Gemcitabine single agent. Interim history: MRI left femur disclosed no metastasis in the greater trochanter but radiologist thought study was not optimized due to patient positioning. She still has some pain in that area but no worse than it was. No longer complaining of pleuritic chest pain. Not short of breath at rest. No cough or wheeze. She's tolerating single agent gemcitabine well with no nausea. No worsening of neuropathy. PMH, medications and allergies as below personally reviewed by me today. Any changes documented in appropriate section. PHYSICAL EXAM: Vitals: Blood pressure 158/81, pulse 93, temperature 36.7 ?C (98.1 ?F), weight 89.4 kg (197 lb). Well-appearing and in no acute distress. EYES: Sclerae are anicteric bilaterally. NECK: Supple. LYMPHATIC: The firmly enlarged mobile right supraclavicular lymph node measuring approximately 2 cm close to the base of the neck remains stable. No other peripheral adenopathy. RESPIRATORY: Inspiratory breath sounds are of normal intensity in all norris. No rales, wheezes or rhonchi. CARDIOVASCULAR: Rhythm is regular. Normal intensity S1/S2. There is no gallop or murmur. ABDOMEN: The abdomen is nondistended. No organomegaly. No tenderness. Extremities: No swelling or edema. SKIN: No jaundice or rash. No petechiae. NEUROLOGIC: station attendant II-XII are grossly intact. No focal motor weakness. Patellar DTRs absent. ASSESSMENT/PLAN: (C50.411, Z17.1) Malignant neoplasm of upper-outer quadrant of right breast in female, estrogen receptor negative (HCC) (primary encounter diagnosis) (C79.51) Bone metastases (HCC) Complicated by severe myositis during adjuvant chemotherapy. -KPS is 90%. -Biopsy-proven local regional recurrence. -Sensory neuropathy stable. -Personally reviewed CT images. Stable disease with regards to the left lingular lung metastasis and right cervical lymph node. -Testing for MMR status via IHC returned 01/26/2018 showing MMR proficient status. Please see scanned report. -She is tolerating single agent gemcitabine very well with no worsening of neuropathy. Right supra-clavicular lymph node is stable by exam. -Discussed adding Zometa. She has full plates upper and lower. Plan: -Okay to proceed with next cycle treatment. -Begin Zometa with day 1 next week and administer every 6 weeks to one side with chemotherapy. -CT scans and bone scan in about 2 months. Clifford Barakat DO CNOVSP Observed: 02/13/2018 Status: COMPLETED Source: [place] 9:30 AM [facility] REPOSITORY Visit (SP) Office (DANYEL) PEDRO LUIS WILCOX ([id number]) 1970 F Date Time Provider Department 02/13/18 9:30 AM CLIFFORD BARAKAT During your visit today, we recorded the following information about you: Temperature Pulse Blood pressure Weight 98.1 degrees 93/minute 158/81 89.4 kg Orlando Langston LPN, LPN 02/13/2018 9:45 AM Signed Est pt, f/u This was to be a chemo day, but her schedules have been re-arranged. TIFFANIE Mann DO 02/13/2018 1:38 PM Signed Diagnosis: 1) Breast cancer. 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 Her mother has a h/o breast cancer, so patient had been undergoing annual mammogram. The patient underwent a screening mammogram on 08/30/2013. A 1.6 cm nodular density was appreciated in the tail of the right breast. She underwent targeted ultrasound the same day. That study revealed a 9 mm hypoechoic solid nodule at the 10:00 position of the breast measuring 6 cm from the nipple. Stereotactic core needle biopsy on 09/13/2013. The tissue revealed invasive poorly differentiated ductal carcinoma. The specimen was negative for both estrogen and progesterone receptors. Both were quantified at 0%. HER-2 was 2+ an immunostain and nonamplified by FISH testing. The patient underwent an MRI of the breast on 09/20/2013. The study revealed that the left breast had no suspicious findings. In the right breast there was a 1.6 cm abnormal enhancing mass in the superior outer aspect of the right breast approximately 10 cm from the nipple. This correlated to the biopsy area. Underwent partial mastectomy with SLN biopsy 10/05/2013. The final pathology revealed an invasive poorly differentiated ductal carcinoma measuring 1.3 cm in size. There was a single focus. DCIS was present measuring 2 mm in maximum dimension. The grade of the cancer was 3. Margins were negative. The closest was 6 mm. Lymphovascular invasion was not identified. One sentinel lymph node was retrieved. It was negative. Previous therapy: 1) Received two cycles of TC adjuvantly. Admitted for severe PAGE. Work up negative, then admitted 12/17/2013 due to increase in thigh pain and dyspnea. Markedly elevated CK. No increase in serum Cr. Chemotherapy stopped after cycle #2. Was seen by ornamental plasterer helper at . 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 2) Completed radiation 03/26/2014. --- She started developing intermittent shortness of breath with exertion. She also has a cough that is a dry cough. She was taken off her PAM inhibitor but the cough has not changed. She had a PA and lateral chest film done on 10/22/2016 that demonstrated no abnormality. She then underwent a CT scan the chest without IV contrast on 11/06/2016. Two nodules were observed in the pulmonary parenchyma. One was located in the right lower lobe and the second was located in the lingular lobe. Each measured 8 mm and were thought to be consistent with metastatic disease. CT of the abdomen and pelvis on 11/20/2016 as well as repeat CT chest with IV contrast demonstrated a thick walled gallbladder suspicious for cystitis, chronic and redemonstration of the lung nodules. No concern for metastatic disease in the abdomen or pelvis. Brain MRI on 11/23/2016 was normal. PET scan demonstrated multiple foci of increased glucose concentration manifested in the right axilla, significant region generating a standard uptake value of 7.6. The maximal axial diameter the largest individual hypermetabolic soft tissue density on review of the CT of the thorax was approximately 23.1 mm in transverse dimension. An ultrasound of the right axilla and subclavicular region on 12/02/2016 demonstrated that within the right axilla there was a cluster of abnormal appearing hypoechoic nodules. The largest measured 2.3 x 1.50 1.4 cm. In the subclavicular region there was also evidence of several hypoechoic nodules the largest measuring 2.75 x 2.85 1.5 cm. She then underwent a right axillary core needle biopsy on 12/07/2016. The pathology demonstrated a poorly differentiated metastatic carcinoma. The specimen was negative for both ER and KS as well as HER-2. I discussed the case with the pathologist today who told me that histologically/morphologically the specimen was consistent with her previous specimen of breast cancer. The pathologist will issue an addendum quantifying ER and KS 0 as well as HER-2 at 0. She had a stress test and echocardiogram about 3 years ago and had no evidence of coronary artery disease. She had LV concentric hypertrophy with preserved ejection fraction. She underwent port placement along with right axillary lymph node dissection on 12/24/2016. MICROSCOPIC DIAGNOSIS Right axillary lymph nodes, regional lymph adenectomy: One out of seven lymph nodes with metastatic poorly differentiated carcinoma. See comment. COMMENT Immunohistochemistry ([id number]) does not rule out a breast primary. There is focal perinodal extension of tumor. Clinical correlation is suggested. ANTIBODY / CLONE RESULT Block 1 Mammaglobin (31A5) negative GATA3 (L50-823) positive, rare, dim CK8 (49nbjkV43) positive Ki-67 (30-9) positive, moderate to high ER (6F11) negative 0% KS (1E2) negative 0% CK19 (A53-B/A2.26) positive Cyclin D1/BCL-1 (SP4) positive CEA (11-7/TF-3HB-1) negative SHELLI (E29) positive CK20 (KS20.8) negative Villin (CWWB1) negative RCC (PN-15) negative CA125 (OC125) positive Previous therapy for metastatic disease: 1) Cisplatin (+/- PARP inhibitor on trial). 2) Houck/carbo. She underwent a CT scan of the neck, chest abdomen and pelvis at [facility] on 10/05/2017. The CT of the neck revealed an abnormal enhancing right subclavicular lymph node measuring 2.6 x 2.0 x 2.2 cm. There were no other significant abnormalities. CT of the chest corroborated the CT neck findings with a 2.6 x 1.5 mm lymph node in the right supraclavicular region. The abdominopelvic images revealed no evidence of metastatic disease. Bone scan done 10/07/2017 showed some increase in radiopharmaceutical concentration in the distal sternum and in the right posterior and anterior lateral ribs potentially representing limited skeletal metastatic disease. Came off trial. She was seen at [facility] and did not qualify for the 2 clinical trials available due to her pre-existing diabetic neuropathy and history of type 1 diabetes. Current therapy: 1) Gemcitabine single agent. Interim history: MRI left femur disclosed no metastasis in the greater trochanter but radiologist thought study was not optimized due to patient positioning. She still has some pain in that area but no worse than it was. No longer complaining of pleuritic chest pain. Not short of breath at rest. No cough or wheeze. She's tolerating single agent gemcitabine well with no nausea. No worsening of neuropathy. PMH, medications and allergies as below personally reviewed by me today. Any changes documented in appropriate section. PHYSICAL EXAM: Vitals: Blood pressure 158/81, pulse 93, temperature 36.7 ?C (98.1 ?F), weight 89.4 kg (197 lb). Well-appearing and in no acute distress. EYES: Sclerae are anicteric bilaterally. NECK: Supple. LYMPHATIC: The firmly enlarged mobile right supraclavicular lymph node measuring approximately 2 cm close to the base of the neck remains stable. No other peripheral adenopathy. RESPIRATORY: Inspiratory breath sounds are of normal intensity in all norris. No rales, wheezes or rhonchi. CARDIOVASCULAR: Rhythm is regular. Normal intensity S1/S2. There is no gallop or murmur. ABDOMEN: The abdomen is nondistended. No organomegaly. No tenderness. Extremities: No swelling or edema. SKIN: No jaundice or rash. No petechiae. NEUROLOGIC: station attendant II-XII are grossly intact. No focal motor weakness. Patellar DTRs absent. ASSESSMENT/PLAN: (C50.411, Z17.1) Malignant neoplasm of upper-outer quadrant of right breast in female, estrogen receptor negative (HCC) (primary encounter diagnosis) (C79.51) Bone metastases (HCC) Complicated by severe myositis during adjuvant chemotherapy. -KPS is 90%. -Biopsy-proven local regional recurrence. -Sensory neuropathy stable. -Personally reviewed CT images. Stable disease with regards to the left lingular lung metastasis and right cervical lymph node. -Testing for MMR status via IHC returned 01/26/2018 showing MMR proficient status. Please see scanned report. -She is tolerating single agent gemcitabine very well with no worsening of neuropathy. Right supra-clavicular lymph node is stable by exam. -Discussed adding Zometa. She has full plates upper and lower. Plan: -Okay to proceed with next cycle treatment. -Begin Zometa with day 1 next week and administer every 6 weeks to one side with chemotherapy. -CT scans and bone scan in about 2 months. Clifford Barakat DO Referring Provider: CLIFFORD BARAKAT [[id number]] Allergies As of Date: 02/13/2018 (No Known Allergies) Date Reviewed: 02/13/2018 Reviewed by: Clifford Barakat - Fully Assessed Reason for Visit: Established Patient [175] Primary Visit Diagnosis:Malignant neoplasm of upper-outer quadrant of right breast in female, estrogen receptor negative (HCC) [C50.411, Z17.1] Other Visit Diagnoses:Malignant neoplasm metastatic to left lung (HCC) [C78.02] Bone metastases (HCC) [C79.51] Order(s):furosemide (LASIX) 20 mg tabletTake 1 tablet by mouth once daily.Disp: 30 tabletRfl: 2 potassium chloride ER (K-DUR, KLOR-CON) 20 mEq tabletTake 1 tablet by mouth once daily.Disp: 30 tabletRfl: 2 Follow-up and Disposition History Recorded Prescriptions as of 02/13/2018 Sig: HYDROCODONE 5 MG-ACETAMINOPHE* Take 1 tablet by mouth twice * METOCLOPRAMIDE 10 MG TABLET Take 1 tablet by mouth every * GABAPENTIN 300 MG CAPSULE Take 1 capsule by mouth three* TIMOLOL 0.5 % EYE DROPS Use 1 Drop in both eyes once * DICYCLOMINE 20 MG TABLET Take 20 mg by mouth every 8 h* LORAZEPAM 1 MG TABLET Take 1 tablet by mouth every * CITALOPRAM 20 MG TABLET Take 1 tablet by mouth once d* CLONAZEPAM 0.5 MG TABLET 1 tablet twice daily. PRN NITROFURANTOIN MONOHYDRATE AND * Take 100 mg by mouth twice da* EMPAGLIFLOZIN 10 MG TABLET Take 10 mg by mouth once gamaliel* VITAMIN B COMPLEX CAPSULE Take 1 capsule by mouth twice* CREON ORAL Take 6,000 Units by mouth. Wi* VALACYCLOVIR 500 MG TABLET Take 500 mg by mouth as neede* ERGOCALCIFEROL (VITAMIN D2) 5* Take 50,000 Units by mouth on* * INSULIN GLARGINE (U-100) 100 * Take 50 in am and 70 units in* * HUMALOG KWIKPEN (U-100) INSUL* 15 in am, 15 noon, 20 in philip FUROSEMIDE 20 MG TABLET Take 1 tablet by mouth once d* POTASSIUM CHLORIDE ER 20 MEQ * Take 1 tablet by mouth once d* PROMETHAZINE 25 MG TABLET Take 1 tablet by mouth every * Patient not taking: Reported on 01/23/2018 Problem List As Of Date 02/13/2018 Noted Resolved THYROID NODULE [E04.1] INVALID FOR* More... Anxiety State, Unspecified [F41.1] 01/22/2009 Depressive Disorder, not Elsewhere Classified [* Priority: Moderate More... DM w/o complication type II, uncontrolled [E11.*INVALID FOR* Priority: Severe More... Other Malaise and Fatigue [R53.81, R53.83] INVALID FOR*01/22/2009 More... HYPERLIPIDEMIA NEC/NOS [E78.5] INVALID FOR* FIBROMYALGIA [NXJ1043] INVALID FOR* Priority: Moderate OVERWEIGHT [E66.9] INVALID FOR* OTHER HAMMER TOE [M20.40] INVALID FOR* More... URIN TRACT INFECTION RECURRENT [N39.0] INVALID FOR*01/21/2016 More... GENITAL HERPES NOS [A60.00] INVALID FOR* Tobacco Use Disorder [F17.200] INVALID FOR* Priority: Moderate More... CONGENITAL PES PLANUS [Q66.50] INVALID FOR* Displacement of Lumbar Intervertebral Disc with*INVALID FOR* Priority: Moderate More... More... Routine Gynecological Examination [Z01.419] INVALID FOR* Class: Chronic More... 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*INVALID FOR* Malignant neoplasm metastatic to left lung (HCC*INVALID FOR* Examination of participant in clinical trial [Z*INVALID FOR* Bone metastases (HCC) [C79.51] INVALID FOR* Visit Notes: >> Orlando Langston LPN Mon Feb 13, 2018 8:56 AM Status: Signed Est pt, f/u This was to be a day, but her schedules have been re-arranged. Orlando Langston LPN Encounter Status:Closed by CLIFFORD BARAKAT DO on 02/13/18 LOWER EXT NO JOINT Observed: 02/10/2018 Status: F Source: [place] W/WO CONT 9:37 AM [facility] [place] REPOSITORY [facility] Imaging Services [address] [place] [address] Lower Ext No Joint W/WO Cont MR#: [id number] Acct: [id number] Name: PEDRO LUIS WILCOX Rep #: [id number] : 1970 F 47 From: Mook Pimentel MD PCP: Jacinto Person MD Status: REG CLI Study: Lower Ext No Joint W/WO Cont Date of Exam: 02/10/18 Exam# [id number] Ordering Dr: Clifford Barakat DO STUDY: MRI LOWER EXTREMITY LEFT THIGH WITH AND WITHOUT CONTRAST REASON FOR EXAM: Female, 47 years old. Left thigh pain and swelling. Abnormal bone scan. History of breast cancer TECHNIQUE: Standardized fat and water weighted pulse sequences were obtained in all 3 orthogonal planes, post contrast administration. 10 ml of Gadavist contrast material was administered intravenously for the contrast portion of the examination. COMPARISON: X-ray January 24, 2018. Bone scan January 20, 2018 FINDINGS: Normal subcutis adipose space. Normal quadriceps, adductor and hamstring muscles. Normal quadriceps extensor mechanism with a normal rectus femoris, vastus medialis, intermedius and lateralis muscles. Normal femur. No fracture or destructive lesion. There is degenerative change of the left hip with spurring and joint space narrowing. There is enthesopathic spurring at the greater trochanter. There is suboptimal evaluation of the greater trochanteric region due to artifact associated with positioning at the edge of the scan. There is joint effusion at the knee. MRI/Lower Ext No Joint W/WO Cont IMPRESSION: There is enthesopathic spurring at the greater trochanter. There is degenerative change of the hip. There is joint effusion at the knee. There is no destruction. There is no enhancing mass. There is suboptimal evaluation of the region of abnormality on the bone scan at the greater trochanter due to positioning at the periphery of the exam. Consider dedicated examination of the hip if further imaging evaluation is required Electronically Signed: Mook Pimentel MD at 11:22 EDT , Service support , CC: Jacinto Person MD; Clifford Barakat DO Family And Consumer Education Teacher: Signed CTA CHEST W/WO Observed: 02/07/2018 Status: F Source: [place] CONTRAST 11:42 AM [facility] [place] REPOSITORY [facility] Imaging Services [address] [place] [id number] CTA Chest W/WO Contrast MR#: [id number] Acct: [id number] Name: PEDRO LUIS WILCOX Rep #: [id number] : 1970 F 47 From: Rylan Schmitz MD PCP: Care Physician, No Primary Status: REG CLI Study: CTA Chest W/WO Contrast Date of Exam: 02/07/18 Exam# [id number] Ordering Dr: Clifford Barakat DO STUDY: CTA CHEST/THORAX REASON FOR EXAM: Female, 47 years old. Pleuritic chest pain. RADIATION DOSAGE (If Supplied By Facility): CTDIvol = ( 14.6 ) mGy, DLP = ( 573.13 ) mGycm TECHNIQUE: The examination was performed with the intravenous administration of 100ML ml of Isovue 300 contrast material. Post-processing of the angiographic images was performed, with multiplanar reformation and 3D reconstruction. Individualized dose optimization techniques were used for this CT. COMPARISON: CT chest/thorax with contrast January 17, 2018. FINDINGS: MediPort hub in the left anterior chest wall again noted, the catheter tip in the upper right atrium Normal enhancement of the main pulmonary artery and right and left pulmonary arteries. Normal enhancement of the bilateral peripheral pulmonary arteries. There is no demonstrated pulmonary embolism. Normal thoracic aorta and visualized great vessels. There is no demonstrated aortic dissection. Normal heart and pericardium. Normal mediastinum. Normal hilar regions. Normal visualized trachea and bronchi. Mild elevation of the right diaphragm is unchanged. Curvilinear scarring in the right lung base again noted, and there is minor subsegmental volume loss in the left base. No new pulmonary infiltrate or mass. Normal pleura. Stable medial right subclavian lymph node measuring 2.25 x 1.4 x 1.6 cm. There is stable deformity of the right axilla and lateral right breast related to prior surgery. Anterior cutaneous thickening of the right breast also unchanged. There are stable multilevel degenerative changes of the thoracic spine. There is degenerative arthrosis of the left acromioclavicular joint Normal visualized upper abdomen. CT/CTA Chest W/WO Contrast IMPRESSION: 1. No demonstrated pulmonary embolism or arterial dissection. 2. Stable medial right subclavian lymph node. No other adenopathy identified. 3. Stable postsurgical changes of the right breast. 4. Stable scarring in the right lung base and minor subsegmental volume loss in the left base. No new pulmonary infiltrate or pleural reaction. 5. Left chest wall MediPort again noted, the catheter tip just below the cavoatrial junction. Electronically Signed: Steve Schmitz MD at 12:33 EDT , Service support , CC: No Primary Care Physician; Clifford Barakat DO Family And Consumer Education Teacher: Signed PROGRESS Observed: 02/07/2018 Status: COMPLETED Source: [place] 11:28 AM [facility] REPOSITORY HNO ID: [id number] Author: Clifford Barakat Service: (none) Author Type: Physician Type: Progress Notes Filed: 02/07/2018 11:30 AM Note Text: Diagnosis: 1) Breast cancer. 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 Her mother has a h/o breast cancer, so patient had been undergoing annual mammogram. The patient underwent a screening mammogram on 08/30/2013. A 1.6 cm nodular density was appreciated in the tail of the right breast. She underwent targeted ultrasound the same day. That study revealed a 9 mm hypoechoic solid nodule at the 10:00 position of the breast measuring 6 cm from the nipple. Stereotactic core needle biopsy on 09/13/2013. The tissue revealed invasive poorly differentiated ductal carcinoma. The specimen was negative for both estrogen and progesterone receptors. Both were quantified at 0%. HER-2 was 2+ an immunostain and nonamplified by FISH testing. The patient underwent an MRI of the breast on 09/20/2013. The study revealed that the left breast had no suspicious findings. In the right breast there was a 1.6 cm abnormal enhancing mass in the superior outer aspect of the right breast approximately 10 cm from the nipple. This correlated to the biopsy area. Underwent partial mastectomy with SLN biopsy 10/05/2013. The final pathology revealed an invasive poorly differentiated ductal carcinoma measuring 1.3 cm in size. There was a single focus. DCIS was present measuring 2 mm in maximum dimension. The grade of the cancer was 3. Margins were negative. The closest was 6 mm. Lymphovascular invasion was not identified. One sentinel lymph node was retrieved. It was negative. Received two cycles of TC. Admitted for severe PAGE. Admitted 12/17/2013 due to increase in thigh pain and dyspnea. Markedly elevated CK. No increase in serum Cr. Chemotherapy stopped after cycle #2. Was seen by ornamental plasterer helper at . 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 Completed radiation 03/26/2014. She started developing intermittent shortness of breath with exertion. She also has a cough that is a dry cough. She was taken off her PAM inhibitor but the cough has not changed. She had a PA and lateral chest film done on 10/22/2016 that demonstrated no abnormality. She then underwent a CT scan the chest without IV contrast on 11/06/2016. Two nodules were observed in the pulmonary parenchyma. One was located in the right lower lobe and the second was located in the lingular lobe. Each measured 8 mm and were thought to be consistent with metastatic disease. CT of the abdomen and pelvis on 11/20/2016 as well as repeat CT chest with IV contrast demonstrated a thick walled gallbladder suspicious for cystitis, chronic and redemonstration of the lung nodules. No concern for metastatic disease in the abdomen or pelvis. Brain MRI on 11/23/2016 was normal. PET scan demonstrated multiple foci of increased glucose concentration manifested in the right axilla, significant region generating a standard uptake value of 7.6. The maximal axial diameter the largest individual hypermetabolic soft tissue density on review of the CT of the thorax was approximately 23.1 mm in transverse dimension. An ultrasound of the right axilla and subclavicular region on 12/02/2016 demonstrated that within the right axilla there was a cluster of abnormal appearing hypoechoic nodules. The largest measured 2.3 x 1.50 1.4 cm. In the subclavicular region there was also evidence of several hypoechoic nodules the largest measuring 2.75 x 2.85 1.5 cm. She then underwent a right axillary core needle biopsy on 12/07/2016. The pathology demonstrated a poorly differentiated metastatic carcinoma. The specimen was negative for both ER and KS as well as HER- 2. I discussed the case with the pathologist today who told me that histologically/morphologically the specimen was consistent with her previous specimen of breast cancer. The pathologist will issue an addendum quantifying ER and KS 0 as well as HER-2 at 0. She had a stress test and echocardiogram about 3 years ago and had no evidence of coronary artery disease. She had LV concentric hypertrophy with preserved ejection fraction. She underwent port placement along with right axillary lymph node dissection on 12/24/2016. MICROSCOPIC DIAGNOSIS Right axillary lymph nodes, regional lymph adenectomy: One out of seven lymph nodes with metastatic poorly differentiated carcinoma. See comment. COMMENT Immunohistochemistry ([id number]) does not rule out a breast primary. There is focal perinodal extension of tumor. Clinical correlation is suggested. ANTIBODY / CLONE RESULT Block 1 Mammaglobin (31A5) negative GATA3 (L50-823) positive, rare, dim CK8 (24brseR75) positive Ki-67 (30-9) positive, moderate to high ER (6F11) negative 0% KS (1E2) negative 0% CK19 (A53-B/A2.26) positive Cyclin D1/BCL-1 (SP4) positive CEA (11-7/TF-3HB-1) negative SHELLI (E29) positive CK20 (KS20.8) negative Villin (CWWB1) negative RCC (PN-15) negative CA125 (OC125) positive Previous therapy for metastatic disease: 1) Cisplatin (+/- PARP inhibitor on trial). She underwent a CT scan of the neck, chest abdomen and pelvis at [facility] on 10/05/2017. The CT of the neck revealed an abnormal enhancing right subclavicular lymph node measuring 2.6 x 2.0 x 2.2 cm. There were no other significant abnormalities. CT of the chest corroborated the CT neck findings with a 2.6 x 1.5 mm lymph node in the right supraclavicular region. The abdominopelvic images revealed no evidence of metastatic disease. Bone scan done 10/07/2017 showed some increase in radiopharmaceutical concentration in the distal sternum and in the right posterior and anterior lateral ribs potentially representing limited skeletal metastatic disease. Came off trial. She was seen at [facility] and did not qualify for the 2 clinical trials available due to her pre-existing diabetic neuropathy and history of type 1 diabetes. Current therapy: 1) Houck/carbo. Interim history: She started developing sharp pleuritic chest pain last night. It's underneath the right breast. It's not associated with hemoptysis cough or wheeze. She doesn't feel short of breath right now. She's had a slight increase in swelling in her left foot over the last several days. She had presented to get chemotherapy earlier today was complaining of the chemotherapy nurses at her infusion center. No fever or symptoms to suggest upper respiratory infection. No sputum production. PMH, medications and allergies as below personally reviewed by me today. Any changes documented in appropriate section. PHYSICAL EXAM: Vitals: Blood pressure 173/87, pulse 104, temperature 37.3 ?C (99.1 ?F), temperature source Oral, weight 90.7 kg (200 lb). Well-appearing and in no acute distress. EYES: Sclerae are anicteric bilaterally. ENT: Oral mucosa is unremarkable. There is no sign of thrush or mucositis. NECK: Supple. LYMPHATIC: The firmly enlarged mobile right supraclavicular lymph node measuring approximately 2 cm close to the base of the neck remains stable. No other peripheral adenopathy. RESPIRATORY: Inspiratory breath sounds are of normal intensity in all norris. No rales, wheezes or rhonchi. CARDIOVASCULAR: Rhythm is regular. Normal intensity S1/S2. There is no gallop or murmur. ABDOMEN: The abdomen is nondistended. No organomegaly. No tenderness. Extremities: No swelling or edema. SKIN: No jaundice or rash. No petechiae. NEUROLOGIC: station attendant II-XII are grossly intact. No focal motor weakness. MUSCULOSKELETAL: Some tenderness along the right lower costal rib margin. ASSESSMENT/PLAN: (C50.411, Z17.1) Malignant neoplasm of upper-outer quadrant of right breast in female, estrogen receptor negative (HCC) (primary encounter diagnosis) (C79.51) Bone metastases (HCC) (R07.81) Pleuritic chest pain Assessment: -Given the clinical setting of malignancy, chemotherapy and the nature of her pain, mandatory to rule out pulmonary embolism. Plan: -Arrangements were made for a stat CT chest today at [facility]. -If negative she may proceed with chemotherapy. Clifford Barakat DO CNOVSP Observed: 02/07/2018 Status: COMPLETED Source: [place] 8:50 AM [facility] REPOSITORY Visit (SP) Office (DANYEL) PEDRO LUIS WILCOX ([id number]) 1970 F Date Time Provider Department 02/07/18 8:50 AM CLIFFORD BARAKAT During your visit today, we recorded the following information about you: Temperature Pulse Blood pressure Weight 99.1 degrees 104/minute 173/87 90.7 kg Federica Pimentel LPN 02/07/2018 11:17 AM Signed C/O pain behind right breast which is radiating to back, started last night. Rates at a 9 , worse when she takes a deep breath or lies down. Denies SOB. Federica Barakat DO 02/07/2018 11:30 AM Signed Diagnosis: 1) Breast cancer. 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 Her mother has a h/o breast cancer, so patient had been undergoing annual mammogram. The patient underwent a screening mammogram on 08/30/2013. A 1.6 cm nodular density was appreciated in the tail of the right breast. She underwent targeted ultrasound the same day. That study revealed a 9 mm hypoechoic solid nodule at the 10:00 position of the breast measuring 6 cm from the nipple. Stereotactic core needle biopsy on 09/13/2013. The tissue revealed invasive poorly differentiated ductal carcinoma. The specimen was negative for both estrogen and progesterone receptors. Both were quantified at 0%. HER-2 was 2+ an immunostain and nonamplified by FISH testing. The patient underwent an MRI of the breast on 09/20/2013. The study revealed that the left breast had no suspicious findings. In the right breast there was a 1.6 cm abnormal enhancing mass in the superior outer aspect of the right breast approximately 10 cm from the nipple. This correlated to the biopsy area. Underwent partial mastectomy with SLN biopsy 10/05/2013. The final pathology revealed an invasive poorly differentiated ductal carcinoma measuring 1.3 cm in size. There was a single focus. DCIS was present measuring 2 mm in maximum dimension. The grade of the cancer was 3. Margins were negative. The closest was 6 mm. Lymphovascular invasion was not identified. One sentinel lymph node was retrieved. It was negative. Received two cycles of TC. Admitted for severe PAGE. Admitted 12/17/2013 due to increase in thigh pain and dyspnea. Markedly elevated CK. No increase in serum Cr. Chemotherapy stopped after cycle #2. Was seen by ornamental plasterer helper at . 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 Completed radiation 03/26/2014. She started developing intermittent shortness of breath with exertion. She also has a cough that is a dry cough. She was taken off her PAM inhibitor but the cough has not changed. She had a PA and lateral chest film done on 10/22/2016 that demonstrated no abnormality. She then underwent a CT scan the chest without IV contrast on 11/06/2016. Two nodules were observed in the pulmonary parenchyma. One was located in the right lower lobe and the second was located in the lingular lobe. Each measured 8 mm and were thought to be consistent with metastatic disease. CT of the abdomen and pelvis on 11/20/2016 as well as repeat CT chest with IV contrast demonstrated a thick walled gallbladder suspicious for cystitis, chronic and redemonstration of the lung nodules. No concern for metastatic disease in the abdomen or pelvis. Brain MRI on 11/23/2016 was normal. PET scan demonstrated multiple foci of increased glucose concentration manifested in the right axilla, significant region generating a standard uptake value of 7.6. The maximal axial diameter the largest individual hypermetabolic soft tissue density on review of the CT of the thorax was approximately 23.1 mm in transverse dimension. An ultrasound of the right axilla and subclavicular region on 12/02/2016 demonstrated that within the right axilla there was a cluster of abnormal appearing hypoechoic nodules. The largest measured 2.3 x 1.50 1.4 cm. In the subclavicular region there was also evidence of several hypoechoic nodules the largest measuring 2.75 x 2.85 1.5 cm. She then underwent a right axillary core needle biopsy on 12/07/2016. The pathology demonstrated a poorly differentiated metastatic carcinoma. The specimen was negative for both ER and KS as well as HER-2. I discussed the case with the pathologist today who told me that histologically/morphologically the specimen was consistent with her previous specimen of breast cancer. The pathologist will issue an addendum quantifying ER and KS 0 as well as HER-2 at 0. She had a stress test and echocardiogram about 3 years ago and had no evidence of coronary artery disease. She had LV concentric hypertrophy with preserved ejection fraction. She underwent port placement along with right axillary lymph node dissection on 12/24/2016. MICROSCOPIC DIAGNOSIS Right axillary lymph nodes, regional lymph adenectomy: One out of seven lymph nodes with metastatic poorly differentiated carcinoma. See comment. COMMENT Immunohistochemistry ([id number]) does not rule out a breast primary. There is focal perinodal extension of tumor. Clinical correlation is suggested. ANTIBODY / CLONE RESULT Block 1 Mammaglobin (31A5) negative GATA3 (L50-823) positive, rare, dim CK8 (56ecplY26) positive Ki-67 (30-9) positive, moderate to high ER (6F11) negative 0% KS (1E2) negative 0% CK19 (A53-B/A2.26) positive Cyclin D1/BCL-1 (SP4) positive CEA (11-7/TF-3HB-1) negative SHELLI (E29) positive CK20 (KS20.8) negative Villin (CWWB1) negative RCC (PN-15) negative CA125 (OC125) positive Previous therapy for metastatic disease: 1) Cisplatin (+/- PARP inhibitor on trial). She underwent a CT scan of the neck, chest abdomen and pelvis at [facility] on 10/05/2017. The CT of the neck revealed an abnormal enhancing right subclavicular lymph node measuring 2.6 x 2.0 x 2.2 cm. There were no other significant abnormalities. CT of the chest corroborated the CT neck findings with a 2.6 x 1.5 mm lymph node in the right supraclavicular region. The abdominopelvic images revealed no evidence of metastatic disease. Bone scan done 10/07/2017 showed some increase in radiopharmaceutical concentration in the distal sternum and in the right posterior and anterior lateral ribs potentially representing limited skeletal metastatic disease. Came off trial. She was seen at [facility] and did not qualify for the 2 clinical trials available due to her pre-existing diabetic neuropathy and history of type 1 diabetes. Current therapy: 1) Houck/carbo. Interim history: She started developing sharp pleuritic chest pain last night. It's underneath the right breast. It's not associated with hemoptysis cough or wheeze. She doesn't feel short of breath right now. She's had a slight increase in swelling in her left foot over the last several days. She had presented to get chemotherapy earlier today was complaining of the chemotherapy nurses at her infusion center. No fever or symptoms to suggest upper respiratory infection. No sputum production. PMH, medications and allergies as below personally reviewed by me today. Any changes documented in appropriate section. PHYSICAL EXAM: Vitals: Blood pressure 173/87, pulse 104, temperature 37.3 ?C (99.1 ?F), temperature source Oral, weight 90.7 kg (200 lb). Well-appearing and in no acute distress. EYES: Sclerae are anicteric bilaterally. ENT: Oral mucosa is unremarkable. There is no sign of thrush or mucositis. NECK: Supple. LYMPHATIC: The firmly enlarged mobile right supraclavicular lymph node measuring approximately 2 cm close to the base of the neck remains stable. No other peripheral adenopathy. RESPIRATORY: Inspiratory breath sounds are of normal intensity in all norris. No rales, wheezes or rhonchi. CARDIOVASCULAR: Rhythm is regular. Normal intensity S1/S2. There is no gallop or murmur. ABDOMEN: The abdomen is nondistended. No organomegaly. No tenderness. Extremities: No swelling or edema. SKIN: No jaundice or rash. No petechiae. NEUROLOGIC: station attendant II-XII are grossly intact. No focal motor weakness. MUSCULOSKELETAL: Some tenderness along the right lower costal rib margin. ASSESSMENT/PLAN: (C50.411, Z17.1) Malignant neoplasm of upper-outer quadrant of right breast in female, estrogen receptor negative (HCC) (primary encounter diagnosis) (C79.51) Bone metastases (HCC) (R07.81) Pleuritic chest pain Assessment: -Given the clinical setting of malignancy, chemotherapy and the nature of her pain, mandatory to rule out pulmonary embolism. Plan: -Arrangements were made for a stat CT chest today at [facility]. -If negative she may proceed with chemotherapy. Clifford Barakat DO Referring Provider: CLIFFORD BARAKAT [[id number]] Allergies As of Date: 02/07/2018 (No Known Allergies) Date Reviewed: 02/07/2018 Reviewed by: Federica Pimentel LPN - Fully Assessed Reason for Visit: Acute Visit [896] Primary Visit Diagnosis:Malignant neoplasm of upper-outer quadrant of right breast in female, estrogen receptor negative (HCC) [C50.411, Z17.1] Other Visit Diagnoses:Bone metastases (HCC) [C79.51] Pleuritic chest pain [R07.81] Order(s):CT CHEST W IVCON PE [[id number]] Order #: [id number] FUTURE iv contrast (will be provided with radiology test)CT Chest PE -Inject, intravenously, once for 1 dose.No IV access, insert saline lock prior to the beginning of sedation, infusion, injection of imaging exam. Discontinue saline lock post exam. If Pt. has a central line or IVAD, may access for administration according to line specific nursing protocol. Once exam is complete flush line and de-access according to line specific nursing protocol in the CT contrast administration guidelines link.Disp: 1 EachRfl: 0 Follow-up and Disposition History Recorded Prescriptions as of 02/07/2018 Sig: HYDROCODONE 5 MG-ACETAMINOPHE* Take 1 tablet by mouth twice * METOCLOPRAMIDE 10 MG TABLET Take 1 tablet by mouth every * GABAPENTIN 300 MG CAPSULE Take 1 capsule by mouth three* TIMOLOL 0.5 % EYE DROPS Use 1 Drop in both eyes once * DICYCLOMINE 20 MG TABLET Take 20 mg by mouth every 8 h* LORAZEPAM 1 MG TABLET Take 1 tablet by mouth every * CITALOPRAM 20 MG TABLET Take 1 tablet by mouth once d* CLONAZEPAM 0.5 MG TABLET 1 tablet twice daily. PRN NITROFURANTOIN MONOHYDRATE AND * Take 100 mg by mouth twice da* EMPAGLIFLOZIN 10 MG TABLET Take 10 mg by mouth once gamaliel* VITAMIN B COMPLEX CAPSULE Take 1 capsule by mouth twice* CREON ORAL Take 6,000 Units by mouth. Wi* VALACYCLOVIR 500 MG TABLET Take 500 mg by mouth as neede* ERGOCALCIFEROL (VITAMIN D2) 5* Take 50,000 Units by mouth on* * INSULIN GLARGINE (U-100) 100 * Take 50 in am and 70 units in* * HUMALOG KWIKPEN (U-100) INSUL* 15 in am, 15 noon, 20 in philip IV CONTRAST (RADIOLOGY PROCED* CT Chest PE -Inject, intraven* PROMETHAZINE 25 MG TABLET Take 1 tablet by mouth every * Patient not taking: Reported on 01/23/2018 Problem List As Of Date 02/07/2018 Noted Resolved THYROID NODULE [E04.1] INVALID FOR* More... Anxiety State, Unspecified [F41.1] 01/22/2009 Depressive Disorder, not Elsewhere Classified [* Priority: Moderate More... DM w/o complication type II, uncontrolled [E11.*INVALID FOR* Priority: Severe More... Other Malaise and Fatigue [R53.81, R53.83] INVALID FOR*01/22/2009 More... HYPERLIPIDEMIA NEC/NOS [E78.5] INVALID FOR* FIBROMYALGIA [[id number]] INVALID FOR* Priority: Moderate OVERWEIGHT [E66.9] INVALID FOR* OTHER HAMMER TOE [M20.40] INVALID FOR* More... URIN TRACT INFECTION RECURRENT [N39.0] INVALID FOR*01/21/2016 More... GENITAL HERPES NOS [A60.00] INVALID FOR* Tobacco Use Disorder [F17.200] INVALID FOR* Priority: Moderate More... CONGENITAL PES PLANUS [Q66.50] INVALID FOR* Displacement of Lumbar Intervertebral Disc with*INVALID FOR* Priority: Moderate More... More... Routine Gynecological Examination [Z01.419] INVALID FOR* Class: Chronic More... 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*INVALID FOR* Malignant neoplasm metastatic to left lung (HCC*INVALID FOR* Examination of participant in clinical trial [Z*INVALID FOR* Bone metastases (HCC) [C79.51] INVALID FOR* Visit Notes: >> Federica Espinosa Feb 07, 2018 10:58 AM Status: Signed C/O pain behind right breast which is radiating to back, started last night. Rates at a 9 , worse when she takes a deep breath or lies down. Denies SOB. Federica Pimentel LPN Encounter Status:Closed by CLIFFORD BARAKAT DO on 02/07/18 BASIC METABOLIC Collected: 02/06/2018 Status: F Source: [place] PROFILE (BMP) 2:47 PM [facility] REPOSITORY TYPE CODE TESTS RESULT OUT OF RANGE REFERENCE UNITS LAB L501.0100 74-106 mg/dL High GLU 308 Result Comment: Glucose result greater than or equal to 200 mg/dL suggests DIABETES MELLITUS per A.D.A. criteria. Please note revised GLUCOSE reference range effective 2017. LAB L501.1000 7-18 mg/dL High BUN 26 LAB L501.1100 0.55-1.02 mg/dL Normal CREAT,SERUM 0.94 Result Comment: The validity of the calculated GFR AND GFRAA in patients over 70 years has not been determined. Clinical correlation is essential. LAB L501.1110 >60 mL/min Normal EST GFR 67 Result Comment: Non- GFR Calc LAB L501.1115 >60 mL/min Normal EST GFR - AA 82 Result Comment: GFR Calc LAB L501.1300 10-20 RATIO High BUN/CRE 27.7 LAB L501.2200 8.5-10.1 mg/dL Low CA 8.4 LAB L501.5300 136-145 mmol/L NA Normal 136 LAB L501.5600 3.5-5.1 mmol/L K Normal 4.0 LAB L501.5900 98-107 mmol/L CL Normal 99 LAB L501.6100 21.0-32.0 mmol/L Normal CO2 27.0 LAB L501.6200 5-15 Normal GAP 10 Performed By: #### L500.2500, L500.3400 #### [facility] [address], [place], [id number] LIVER PROFILE Collected: 02/06/2018 Status: F Source: [place] 2:47 PM [facility] REPOSITORY TYPE CODE TESTS RESULT OUT OF RANGE REFERENCE UNITS LAB L501.1500 6.4-8.2 g/dL Normal T PROT 7.3 LAB L501.1800 3.2-5.0 g/dL Low ALB 3.1 LAB L501.1950 2.2-4.2 g/dL Normal GLOB 4.2 LAB L501.4100 15-37 U/L Low AST 12 LAB L501.4305 45-117 U/L Normal ALK P 110 LAB L501.4405 13-56 U/L Normal ALT 20 LAB L501.4600 0.20-1.00 mg/dL Low T BILI 0.10 LAB L501.4700 0.00-0.30 mg/dL Normal D BILI < 0.05 Performed By: #### L500.2500, L500.3400 #### [facility] [address], [place], [id number] CBC W/DIFF, AUTOMATED Collected: 02/06/2018 Status: F Source: [place] 2:47 PM [facility] REPOSITORY TYPE CODE TESTS RESULT OUT OF RANGE REFERENCE UNITS LAB L100.1000 4.4-11.0 K/mm3 Normal WBC 4.6 LAB L100.1200 4.2-5.4 M/mm3 Low RBC 2.91 LAB L100.1300 12.0-15.0 g/dl Low HGB 9.0 LAB L100.1400 37-47 % Low HCT 27.8 LAB L100.1500 81-99 fL Normal MCV 95.5 LAB L100.1600 27.0-32.0 pg Normal MCH 30.9 LAB L100.1700 32-36 g/gl Normal MCHC 32.4 LAB L100.1810 11.6-14.6 % Normal RDW CV 13.7 LAB L100.1820 35.1-43.9 fl High RDW SD 47.8 LAB L100.1900 150-450 K/mm3 Normal PLT 234 LAB L100.2000 6.2-12.0 fl Normal MPV 9.0 LAB L100.2100 47-70 % Low NEUT% 43.4 LAB L100.2200 19-41 % High LY% 50.4 LAB L100.2300 0-10 % Normal MONO% 5.4 LAB L100.2400 0-5 % Normal EO% 0.2 LAB L100.2500 0-1 % Normal BASO% 0.4 LAB L100.2550 0.0-0.9 % Normal IM GRAN % 0.200 Result Comment: IG% - Immature Granulocytes (promyelocytes, myelocytes and metamyelocytes) > 1% indicates that a LEFT SHIFT is Present. LAB L100.2620 2.0-7.7 X10 3/uL Normal Absolute Neut 2.0 LAB L100.2720 0.83-4.51 X10 3/ul Normal Absolute Lymph 2.34 Performed By: #### L100.0100 #### [facility] [address] [place], [place] [address]all [facility]. [place], [place], [id number] PROGRESS Observed: 01/31/2018 Status: COMPLETED Source: [place] 2:18 PM [facility] [place] REPOSITORY HNO ID: [id number] Author: Isha Servin (Sw) Service: (none) Author Type: Ball Rolling Machine Operator Type: Progress Notes Filed: 01/31/2018 2:25 PM Note Text: Social Work Problem Referral Note INFORMATION/REFERRAL : Pedro Luis Wilcox 47 year old female was referred by [facility] Social Work for the following reason(s): disability planning PERSONS INTERVIEWED: patient INTERVENTION: Information AND Referral Service Co-ordination Affect/Mood: The patient is noted as expressing worry IDENTIFIED PROBLEMS/NEEDS: Continue to assess/collaborate Disability Intervention/Referral to be provided:Arrangements made for continuity of care Information for community resources/agencies IMPRESSION/PLAN: 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 Patient also met with SW to discuss insurance needs since she will no longer be working. SW informed her she could look on healthcare.gov. SW explained the requirements for applying for Medicaid and since patient's spouse also has an income she would bring in too much money. SW explained that she will not be eligible for Medicare until she has received disability for two years. SW finally explained how [facility] has a program where she could potentially have a reduced bill based on her income and referred her to financial counselor for more information. Patient will first look at healthcare.gov and let SW know what options are available. F/U APPOINTMENT: ANNAMARIA Nunez CBC W/DIFF, AUTOMATED Collected: 01/31/2018 Status: F Source: [place] 8:51 AM [facility] REPOSITORY TYPE CODE TESTS RESULT OUT OF RANGE REFERENCE UNITS LAB L100.1000 4.4-11.0 K/mm3 Low WBC 4.1 LAB L100.1200 4.2-5.4 M/mm3 Low RBC 3.48 LAB L100.1300 12.0-15.0 g/dl Low HGB 10.8 LAB L100.1400 37-47 % Low HCT 32.8 LAB L100.1500 81-99 fL Normal MCV 94.3 LAB L100.1600 27.0-32.0 pg Normal MCH 31.0 LAB L100.1700 32-36 g/gl Normal MCHC 32.9 LAB L100.1810 11.6-14.6 % Normal RDW CV 14.2 LAB L100.1820 35.1-43.9 fl High RDW SD 48.6 LAB L100.1900 150-450 K/mm3 Normal PLT 298 LAB L100.2000 6.2-12.0 fl Normal MPV 9.0 LAB L100.2100 47-70 % Normal NEUT% 55.3 LAB L100.2200 19-41 % Normal LY% 34.9 LAB L100.2300 0-10 % Normal MONO% 8.8 LAB L100.2400 0-5 % Normal EO% 0.5 LAB L100.2500 0-1 % Normal BASO% 0.5 LAB L100.2550 0.0-0.9 % Normal IM GRAN % 0.000 Result Comment: IG% - Immature Granulocytes (promyelocytes, myelocytes and metamyelocytes) > 1% indicates that a LEFT SHIFT is Present. LAB L100.2620 2.0-7.7 X10 3/uL Normal Absolute Neut 2.3 LAB L100.2720 0.83-4.51 X10 3/ul Normal Absolute Lymph 1.43 Performed By: #### L100.0100 #### [facility] [address] [facility]. [place], [place], [id number] BASIC METABOLIC Collected: 01/31/2018 Status: F Source: [place] PROFILE (BMP) 8:51 AM [facility] REPOSITORY TYPE CODE TESTS RESULT OUT OF RANGE REFERENCE UNITS LAB L501.0100 74-106 mg/dL High GLU 360 Result Comment: Glucose result greater than or equal to 200 mg/dL suggests DIABETES MELLITUS per A.D.A. criteria. Please note revised GLUCOSE reference range effective 2017. LAB L501.1000 7-18 mg/dL High BUN 25 LAB L501.1100 0.55-1.02 mg/dL Normal CREAT,SERUM 0.78 Result Comment: The validity of the calculated GFR AND GFRAA in patients over 70 years has not been determined. Clinical correlation is essential. LAB L501.1110 >60 mL/min Normal EST GFR 83 Result Comment: Non- GFR Calc LAB L501.1115 >60 mL/min Normal EST GFR - AA 101 Result Comment: GFR Calc LAB L501.1300 10-20 RATIO High BUN/CRE 31.9 LAB L501.2200 8.5-10.1 mg/dL CA Normal 8.9 LAB L501.5300 136-145 mmol/L NA Normal 138 LAB L501.5600 3.5-5.1 mmol/L K Normal 4.2 LAB L501.5900 98-107 mmol/L CL Normal 100 LAB L501.6100 21.0-32.0 mmol/L Normal CO2 29.0 LAB L501.6200 5-15 Normal GAP 9 Performed By: #### L500.2500, L500.3400 #### [facility] [address] [facility]. [place], [place], [id number] LIVER PROFILE Collected: 01/31/2018 Status: F Source: [place] 8:51 AM [facility] REPOSITORY TYPE CODE TESTS RESULT OUT OF RANGE REFERENCE UNITS LAB L501.1500 6.4-8.2 g/dL Normal T PROT 7.7 LAB L501.1800 3.2-5.0 g/dL Normal ALB 3.4 LAB L501.1950 2.2-4.2 g/dL High GLOB 4.3 LAB L501.4100 15-37 U/L Low AST 10 LAB L501.4305 45-117 U/L Normal ALK P 100 LAB L501.4405 13-56 U/L Normal ALT 22 LAB L501.4600 0.20-1.00 mg/dL Normal T BILI 0.20 LAB L501.4700 0.00-0.30 mg/dL Normal D BILI 0.09 Performed By: #### L500.2500, L500.3400 #### [facility] [address] [place], [address] CNSW Observed: 01/31/2018 Status: COMPLETED Source: [place] 12:00 AM [facility] REPOSITORY Social Work (DANYEL) PEDRO LUIS WILCOX ([id number]) 1970 F Date Time Provider Department 01/31/18 ISHA SERVIN (SW) During your visit today, we recorded the following information about you: ANNAMARIA Schroeder 01/31/2018 2:25 PM Signed Social Work Problem Referral Note INFORMATION/REFERRAL : Pedro Luis Wilcox 47 year old female was referred by 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 Patient also met with HILARIO to discuss insurance needs since she will no longer be working. SW informed her she could look on healthcare.gov. SW explained the requirements for applying for Medicaid and since patient's spouse also has an income she would bring in too much money. SW explained that she will not be eligible for Medicare until she has received disability for two years. SW finally explained how [facility] has a program where she could potentially have a reduced bill based on her income and referred her to financial counselor for more information. Patient will first look at healthcare.gov and let SW know what options are available. F/U APPOINTMENT: PRN ANNAMARIA Schroeder Allergies As of Date: 01/31/2018 (No Known Allergies) Date Reviewed: 01/23/2018 Reviewed by: Federica Pimentel LPN - Fully Assessed Reason for Visit: Social Work Services [507] Prescriptions as of 01/31/2018 Sig: PROMETHAZINE 25 MG TABLET Take 1 tablet by mouth every * Patient not taking: Reported on 01/23/2018 HYDROCODONE 5 MG-ACETAMINOPHE* Take 1 tablet by mouth twice * METOCLOPRAMIDE 10 MG TABLET Take 1 tablet by mouth every * GABAPENTIN 300 MG CAPSULE Take 1 capsule by mouth three* TIMOLOL 0.5 % EYE DROPS Use 1 Drop in both eyes once * DICYCLOMINE 20 MG TABLET Take 20 mg by mouth every 8 h* LORAZEPAM 1 MG TABLET Take 1 tablet by mouth every * CITALOPRAM 20 MG TABLET Take 1 tablet by mouth once d* CLONAZEPAM 0.5 MG TABLET 1 tablet twice daily. PRN NITROFURANTOIN MONOHYDRATE AND * Take 100 mg by mouth twice da* EMPAGLIFLOZIN 10 MG TABLET Take 10 mg by mouth once gamaliel* VITAMIN B COMPLEX CAPSULE Take 1 capsule by mouth twice* CREON ORAL Take 6,000 Units by mouth. Wi* VALACYCLOVIR 500 MG TABLET Take 500 mg by mouth as neede* ERGOCALCIFEROL (VITAMIN D2) 5* Take 50,000 Units by mouth on* * INSULIN GLARGINE (U-100) 100 * Take 50 in am and 70 units in* * HUMALOG KWIKPEN (U-100) INSUL* 15 in am, 15 noon, 20 in philip Problem List As Of Date 01/31/2018 Noted Resolved THYROID NODULE [E04.1] INVALID FOR* More... Anxiety State, Unspecified [F41.1] 01/22/2009 Depressive Disorder, not Elsewhere Classified [* Priority: Moderate More... DM w/o complication type II, uncontrolled [E11.*INVALID FOR* Priority: Severe More... Other Malaise and Fatigue [R53.81, R53.83] INVALID FOR*01/22/2009 More... HYPERLIPIDEMIA NEC/NOS [E78.5] INVALID FOR* FIBROMYALGIA [[id number]] INVALID FOR* Priority: Moderate OVERWEIGHT [E66.9] INVALID FOR* OTHER HAMMER TOE [M20.40] INVALID FOR* More... URIN TRACT INFECTION RECURRENT [N39.0] INVALID FOR*01/21/2016 More... GENITAL HERPES NOS [A60.00] INVALID FOR* Tobacco Use Disorder [F17.200] INVALID FOR* Priority: Moderate More... CONGENITAL PES PLANUS [Q66.50] INVALID FOR* Displacement of Lumbar Intervertebral Disc with*INVALID FOR* Priority: Moderate More... More... Routine Gynecological Examination [Z01.419] INVALID FOR* Class: Chronic More... 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*INVALID FOR* Malignant neoplasm metastatic to left lung (HCC*INVALID FOR* Examination of participant in clinical trial [Z*INVALID FOR* Bone metastases (HCC) [C79.51] INVALID FOR* Encounter Status:Closed by ISHA SERVIN on 01/31/18 PROGRESS Observed: 01/30/2018 Status: COMPLETED Source: [place] 5:02 PM [facility] REPOSIT[facility] ID: [id number] Author: Isha Servin (Sw) Service: (none) Author Type: Ball Rolling Machine Operator Type: Progress Notes Filed: 01/30/2018 5:03 PM Note Text: Social Work Problem Referral Note INFORMATION/REFERRAL : Pedro Luis Williamson Brenden 47 year old female was referred by [facility] Social Work for the following reason(s): disability planning PERSONS INTERVIEWED: patient and physician - Dr. Barakat INTERVENTION: Phone Contact and Team Meeting Affect/Mood: The patient is noted as appropriate IDENTIFIED PROBLEMS/NEEDS: Disability Intervention/Referral to be provided:Arrangements made for continuity of care IMPRESSION/PLAN: SW received disability paperwork from patient on January 27. SW completed and had doctor review/sign. SW called patient to inform her this was completed and to arrange for her to pick this is up tomorrow. Patient denies other needs at this time. F/U APPOINTMENT: ANNAMARIA Nunez CNSW Observed: 01/30/2018 Status: COMPLETED Source: [place] 12:00 AM [facility] REPOSITORY Social Work (DANYEL) PEDRO LUIS WILCOX ([id number]) 1970 F Date Time Provider Department 01/30/18 ISHA SERVIN (HILARIO) DANYEL During your visit today, we recorded the following information about you: ANNAMARIA Schroeder 01/30/2018 5:03 PM Signed Social Work Problem Referral Note INFORMATION/REFERRAL : Pedro Luis Wilcox 47 year old female was referred by [facility] Social Work for the following reason(s): disability planning PERSONS INTERVIEWED: patient and physician - Dr. Barakat INTERVENTION: Phone Contact and Team Meeting Affect/Mood: The patient is noted as appropriate IDENTIFIED PROBLEMS/NEEDS: Disability Intervention/Referral to be provided:Arrangements made for continuity of care IMPRESSION/PLAN: SW received disability paperwork from patient on January 27. SW completed and had doctor review/sign. SW called patient to inform her this was completed and to arrange for her to pick this is up tomorrow. Patient denies other needs at this time. F/U APPOINTMENT: ANNAMARIA Nunez Allergies As of Date: 01/30/2018 (No Known Allergies) Date Reviewed: 01/23/2018 Reviewed by: Federica Pimentel LPN - Fully Assessed Reason for Visit: Social Work Services [507] Prescriptions as of 01/30/2018 Sig: PROMETHAZINE 25 MG TABLET Take 1 tablet by mouth every * Patient not taking: Reported on 01/23/2018 HYDROCODONE 5 MG-ACETAMINOPHE* Take 1 tablet by mouth twice * METOCLOPRAMIDE 10 MG TABLET Take 1 tablet by mouth every * GABAPENTIN 300 MG CAPSULE Take 1 capsule by mouth three* TIMOLOL 0.5 % EYE DROPS Use 1 Drop in both eyes once * DICYCLOMINE 20 MG TABLET Take 20 mg by mouth every 8 h* LORAZEPAM 1 MG TABLET Take 1 tablet by mouth every * CITALOPRAM 20 MG TABLET Take 1 tablet by mouth once d* CLONAZEPAM 0.5 MG TABLET 1 tablet twice daily. PRN NITROFURANTOIN MONOHYDRATE AND * Take 100 mg by mouth twice da* EMPAGLIFLOZIN 10 MG TABLET Take 10 mg by mouth once gamaliel* VITAMIN B COMPLEX CAPSULE Take 1 capsule by mouth twice* CREON ORAL Take 6,000 Units by mouth. Wi* VALACYCLOVIR 500 MG TABLET Take 500 mg by mouth as neede* ERGOCALCIFEROL (VITAMIN D2) 5* Take 50,000 Units by mouth on* * INSULIN GLARGINE (U-100) 100 * Take 50 in am and 70 units in* * HUMALOG KWIKPEN (U-100) INSUL* 15 in am, 15 noon, 20 in philip Problem List As Of Date 01/30/2018 Noted Resolved THYROID NODULE [E04.1] INVALID FOR* More... Anxiety State, Unspecified [F41.1] 01/22/2009 Depressive Disorder, not Elsewhere Classified [* Priority: Moderate More... DM w/o complication type II, uncontrolled [E11.*INVALID FOR* Priority: Severe More... Other Malaise and Fatigue [R53.81, R53.83] INVALID FOR*01/22/2009 More... HYPERLIPIDEMIA NEC/NOS [E78.5] INVALID FOR* FIBROMYALGIA [[id number]] INVALID FOR* Priority: Moderate OVERWEIGHT [E66.9] INVALID FOR* OTHER HAMMER TOE [M20.40] INVALID FOR* More... URIN TRACT INFECTION RECURRENT [N39.0] INVALID FOR*01/21/2016 More... GENITAL HERPES NOS [A60.00] INVALID FOR* Tobacco Use Disorder [F17.200] INVALID FOR* Priority: Moderate More... CONGENITAL PES PLANUS [Q66.50] INVALID FOR* Displacement of Lumbar Intervertebral Disc with*INVALID FOR* Priority: Moderate More... More... Routine Gynecological Examination [Z01.419] INVALID FOR* Class: Chronic More... 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*INVALID FOR* Malignant neoplasm metastatic to left lung (HCC*INVALID FOR* Examination of participant in clinical trial [Z*INVALID FOR* Bone metastases (HCC) [C79.51] INVALID FOR* Encounter Status:Closed by ISHA SERVIN on 01/30/18 FEMUR MIN 2 VIEWS Observed: 01/24/2018 Status: F Source: [place] 10:09 AM [facility] REPOSITORY [facility] Imaging Services [address] [place], [place] [address] [address] Femur Min 2 Views MR#: [id number] Acct: [id number] Name: PEDRO LUIS WILCOX Rep #: [id number] : 1970 F 47 From: Ruperto Sahu MD PCP: Jacinto Person MD Status: REG CLI Study: Femur Min 2 Views Date of Exam: 01/24/18 Exam# [id number] Ordering Dr: Clifford Barakat DO STUDY: X-RAY - LEFT FEMUR REASON FOR STUDY: Female, 47 years old. History of breast carcinoma. Pain. TECHNIQUE: Radiological exam, femur, minimum 2 views COMPARISON: Bone scan dated January 20, 2018 showing slight increased radiotracer uptake in the greater trochanter of the left femur. Prior hip x-rays dated August 13, 2016. FINDINGS: There is generalized osteopenia. There is moderate arthrosis of the left hip unchanged. No lytic lesions to suggest metastases are present. There is vascular calcification. RAD/Femur Min 2 Views IMPRESSION: No lytic lesion identified. Moderate left hip arthrosis unchanged. Electronically Signed: Ruperto Sahu MD at 14:26 EDT , Service support , CC: Jacinto Person MD; Clifford Barakat DO Family And Consumer Education Teacher: Signed PROGRESS Observed: 01/23/2018 Status: COMPLETED Source: [place] 9:46 AM [facility] REPOSITORY HNO ID: [id number] Author: Clifford Barakat Service: (none) Author Type: Physician Type: Progress Notes Filed: 01/27/2018 10:03 AM Note Text: Diagnosis: 1) Breast cancer. 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 Her mother has a h/o breast cancer, so patient had been undergoing annual mammogram. The patient underwent a screening mammogram on 08/30/2013. A 1.6 cm nodular density was appreciated in the tail of the right breast. She underwent targeted ultrasound the same day. That study revealed a 9 mm hypoechoic solid nodule at the 10:00 position of the breast measuring 6 cm from the nipple. Stereotactic core needle biopsy on 09/13/2013. The tissue revealed invasive poorly differentiated ductal carcinoma. The specimen was negative for both estrogen and progesterone receptors. Both were quantified at 0%. HER-2 was 2+ an immunostain and nonamplified by FISH testing. The patient underwent an MRI of the breast on 09/20/2013. The study revealed that the left breast had no suspicious findings. In the right breast there was a 1.6 cm abnormal enhancing mass in the superior outer aspect of the right breast approximately 10 cm from the nipple. This correlated to the biopsy area. Underwent partial mastectomy with SLN biopsy 10/05/2013. The final pathology revealed an invasive poorly differentiated ductal carcinoma measuring 1.3 cm in size. There was a single focus. DCIS was present measuring 2 mm in maximum dimension. The grade of the cancer was 3. Margins were negative. The closest was 6 mm. Lymphovascular invasion was not identified. One sentinel lymph node was retrieved. It was negative. Received two cycles of TC. Admitted for severe PAGE. Admitted 12/17/2013 due to increase in thigh pain and dyspnea. Markedly elevated CK. No increase in serum Cr. Chemotherapy stopped after cycle #2. Was seen by ornamental plasterer helper at . 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 Completed radiation 03/26/2014. She started developing intermittent shortness of breath with exertion. She also has a cough that is a dry cough. She was taken off her PAM inhibitor but the cough has not changed. She had a PA and lateral chest film done on 10/22/2016 that demonstrated no abnormality. She then underwent a CT scan the chest without IV contrast on 11/06/2016. Two nodules were observed in the pulmonary parenchyma. One was located in the right lower lobe and the second was located in the lingular lobe. Each measured 8 mm and were thought to be consistent with metastatic disease. CT of the abdomen and pelvis on 11/20/2016 as well as repeat CT chest with IV contrast demonstrated a thick walled gallbladder suspicious for cystitis, chronic and redemonstration of the lung nodules. No concern for metastatic disease in the abdomen or pelvis. Brain MRI on 11/23/2016 was normal. PET scan demonstrated multiple foci of increased glucose concentration manifested in the right axilla, significant region generating a standard uptake value of 7.6. The maximal axial diameter the largest individual hypermetabolic soft tissue density on review of the CT of the thorax was approximately 23.1 mm in transverse dimension. An ultrasound of the right axilla and subclavicular region on 12/02/2016 demonstrated that within the right axilla there was a cluster of abnormal appearing hypoechoic nodules. The largest measured 2.3 x 1.50 1.4 cm. In the subclavicular region there was also evidence of several hypoechoic nodules the largest measuring 2.75 x 2.85 1.5 cm. She then underwent a right axillary core needle biopsy on 12/07/2016. The pathology demonstrated a poorly differentiated metastatic carcinoma. The specimen was negative for both ER and KS as well as HER- 2. I discussed the case with the pathologist today who told me that histologically/morphologically the specimen was consistent with her previous specimen of breast cancer. The pathologist will issue an addendum quantifying ER and KS 0 as well as HER-2 at 0. She had a stress test and echocardiogram about 3 years ago and had no evidence of coronary artery disease. She had LV concentric hypertrophy with preserved ejection fraction. She underwent port placement along with right axillary lymph node dissection on 12/24/2016. MICROSCOPIC DIAGNOSIS Right axillary lymph nodes, regional lymph adenectomy: One out of seven lymph nodes with metastatic poorly differentiated carcinoma. See comment. COMMENT Immunohistochemistry ([id number]) does not rule out a breast primary. There is focal perinodal extension of tumor. Clinical correlation is suggested. ANTIBODY / CLONE RESULT Block 1 Mammaglobin (31A5) negative GATA3 (L50-823) positive, rare, dim CK8 (38xctsH70) positive Ki-67 (30-9) positive, moderate to high ER (6F11) negative 0% KS (1E2) negative 0% CK19 (A53-B/A2.26) positive Cyclin D1/BCL-1 (SP4) positive CEA (11-7/TF-3HB-1) negative SHELLI (E29) positive CK20 (KS20.8) negative Villin (CWWB1) negative RCC (PN-15) negative CA125 (OC125) positive Previous therapy for metastatic disease: 1) Cisplatin (+/- PARP inhibitor on trial). She underwent a CT scan of the neck, chest abdomen and pelvis at [facility] on 10/05/2017. The CT of the neck revealed an abnormal enhancing right subclavicular lymph node measuring 2.6 x 2.0 x 2.2 cm. There were no other significant abnormalities. CT of the chest corroborated the CT neck findings with a 2.6 x 1.5 mm lymph node in the right supraclavicular region. The abdominopelvic images revealed no evidence of metastatic disease. Bone scan done 10/07/2017 showed some increase in radiopharmaceutical concentration in the distal sternum and in the right posterior and anterior lateral ribs potentially representing limited skeletal metastatic disease. Came off trial. She was seen at [facility] and did not qualify for the 2 clinical trials available due to her pre-existing diabetic neuropathy and history of type 1 diabetes. Current therapy: 1) Houck/carbo. Interim history: Her first 2 cycles of chemotherapy she had no difficulty with. However with subsequent cycle she's been having nausea and vomiting following each 1. She says is not nearly as bad as was with cisplatin but she does admit that she feels a lot of it is anticipatory nausea. She thinks hydration may be able to help her break this phenomenon. She has been using Ativan which hasn't helped. She has pain in both areas of the greater trochanters bilaterally but the left is now slightly worse than right. Neuropathy is stable. She fell last week when stepping down out of her camper. She still working on a full-time basis. She says work is only a few things that gives her sense of normalcy in life. She was very tearful today. She struggling with a decision as to whether or not to stop chemotherapy. Recently she had a friend and fellow jainism member who of metastatic cervical cancer at a young age. PMH, medications and allergies as below personally reviewed by me today. Any changes documented in appropriate section. ROS: Constitutional: Denies episodes of fever and night sweats. Neuro: Denies DOZIER, vertigo, dizziness and imbalance. HEENT: No recent change in voice, vision or hearing. Resp: See above. CVS: Denies exertional chest pain, PND, orthopnea and LE edema. GI: Denies dysgeusia. Denies symptoms of stomatitis. Denies dysphagia and odynophagia. Denies reflux, change in bowel habits and abdominal pain. : Denies dysuria or gross hematuria. No symptoms of bladder outlet obstruction. Endo: Denies hot flashes. Denies polyuria and polydipsia. Denies heat and cold intolerance. Musculoskeletal: See above. Derm: Denies rash. Denies jaundice and diffuse pruritis. Heme: Denies unusual bleeding and unexplained bruising. Psych: Normal mood. PHYSICAL EXAM: Vitals: Blood pressure 117/67, pulse 104, temperature 37 ?C (98.6 ?F), temperature source Oral, weight 87.3 kg (192 lb 8 oz). Well-appearing and in no acute distress. EYES: Sclerae are anicteric bilaterally. ENT: Oral mucosa is unremarkable. There is no sign of thrush or mucositis. NECK: Supple. LYMPHATIC: The firmly enlarged mobile right supraclavicular lymph node measuring approximately 2 cm close to the base of the neck remains stable. No other peripheral adenopathy. RESPIRATORY: Inspiratory breath sounds are of normal intensity in all norris. No rales, wheezes or rhonchi. CARDIOVASCULAR: Rhythm is regular. Normal intensity S1/S2. There is no gallop or murmur. ABDOMEN: The abdomen is nondistended. No organomegaly. No tenderness. Extremities: No swelling or edema. SKIN: No jaundice or rash. No petechiae. NEUROLOGIC: station attendant II-XII are grossly intact. No focal motor weakness. MUSCULOSKELETAL: No muscle wasting. 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 Comprehensive BRCA 1 and 2 testing (scanned 12/05/2013) no mutation Complicated by severe myositis during adjuvant chemotherapy. -KPS is 90%. -Biopsy-proven local regional recurrence. -Sensory neuropathy stable. -Personally reviewed CT images. Stable disease with regards to the left lingular lung metastasis and right cervical lymph node. -There appears to be a new proximal left femur lesion on bone scan. -Long discussion today regarding goals of care. I encouraged her to continue treatment as long she is tolerating it reasonably well. However if x-ray and MRI scan confirmed new proximal femur lesion, I would recommend single agent chemotherapy following that with the understanding that response rate is most likely to be low. Nonetheless MMR testing will be requested on pathology specimen from the axillary lymph node dissection in 2017. ADDENDUM: Testing for MMR status via IHC returned 01/26/2018 showing MMR proficient status. Please see scanned report. Plan: -Okay to proceed with next cycle treatment. -Plain film radiographs of the left femur. MRI of the left femur. -Zometa. Clifford Barakat DO CNOVSP Observed: 01/23/2018 Status: COMPLETED Source: [place] 9:30 AM [facility] REPOSITORY Visit (SP) Office (DANYEL) PEDRO LUIS WILCOX ([id number]) 1970 F Date Time Provider Department 01/23/18 9:30 AM CLIFFORD BARAKAT During your visit today, we recorded the following information about you: Temperature Pulse Blood pressure Weight 98.6 degrees 104/minute 117/67 87.3 kg Federica Pimentel LPN 01/23/2018 9:56 AM Signed Est patient. Labs today @ [facility] 0900, treatment tomorrow. Federica Barakat DO 01/27/2018 10:03 AM Addendum Diagnosis: 1) Breast cancer. 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 Her mother has a h/o breast cancer, so patient had been undergoing annual mammogram. The patient underwent a screening mammogram on 08/30/2013. A 1.6 cm nodular density was appreciated in the tail of the right breast. She underwent targeted ultrasound the same day. That study revealed a 9 mm hypoechoic solid nodule at the 10:00 position of the breast measuring 6 cm from the nipple. Stereotactic core needle biopsy on 09/13/2013. The tissue revealed invasive poorly differentiated ductal carcinoma. The specimen was negative for both estrogen and progesterone receptors. Both were quantified at 0%. HER-2 was 2+ an immunostain and nonamplified by FISH testing. The patient underwent an MRI of the breast on 09/20/2013. The study revealed that the left breast had no suspicious findings. In the right breast there was a 1.6 cm abnormal enhancing mass in the superior outer aspect of the right breast approximately 10 cm from the nipple. This correlated to the biopsy area. Underwent partial mastectomy with SLN biopsy 10/05/2013. The final pathology revealed an invasive poorly differentiated ductal carcinoma measuring 1.3 cm in size. There was a single focus. DCIS was present measuring 2 mm in maximum dimension. The grade of the cancer was 3. Margins were negative. The closest was 6 mm. Lymphovascular invasion was not identified. One sentinel lymph node was retrieved. It was negative. Received two cycles of TC. Admitted for severe PAGE. Admitted 12/17/2013 due to increase in thigh pain and dyspnea. Markedly elevated CK. No increase in serum Cr. Chemotherapy stopped after cycle #2. Was seen by ornamental plasterer helper at . 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 Completed radiation 03/26/2014. She started developing intermittent shortness of breath with exertion. She also has a cough that is a dry cough. She was taken off her PAM inhibitor but the cough has not changed. She had a PA and lateral chest film done on 10/22/2016 that demonstrated no abnormality. She then underwent a CT scan the chest without IV contrast on 11/06/2016. Two nodules were observed in the pulmonary parenchyma. One was located in the right lower lobe and the second was located in the lingular lobe. Each measured 8 mm and were thought to be consistent with metastatic disease. CT of the abdomen and pelvis on 11/20/2016 as well as repeat CT chest with IV contrast demonstrated a thick walled gallbladder suspicious for cystitis, chronic and redemonstration of the lung nodules. No concern for metastatic disease in the abdomen or pelvis. Brain MRI on 11/23/2016 was normal. PET scan demonstrated multiple foci of increased glucose concentration manifested in the right axilla, significant region generating a standard uptake value of 7.6. The maximal axial diameter the largest individual hypermetabolic soft tissue density on review of the CT of the thorax was approximately 23.1 mm in transverse dimension. An ultrasound of the right axilla and subclavicular region on 12/02/2016 demonstrated that within the right axilla there was a cluster of abnormal appearing hypoechoic nodules. The largest measured 2.3 x 1.50 1.4 cm. In the subclavicular region there was also evidence of several hypoechoic nodules the largest measuring 2.75 x 2.85 1.5 cm. She then underwent a right axillary core needle biopsy on 12/07/2016. The pathology demonstrated a poorly differentiated metastatic carcinoma. The specimen was negative for both ER and KS as well as HER-2. I discussed the case with the pathologist today who told me that histologically/morphologically the specimen was consistent with her previous specimen of breast cancer. The pathologist will issue an addendum quantifying ER and KS 0 as well as HER-2 at 0. She had a stress test and echocardiogram about 3 years ago and had no evidence of coronary artery disease. She had LV concentric hypertrophy with preserved ejection fraction. She underwent port placement along with right axillary lymph node dissection on 12/24/2016. MICROSCOPIC DIAGNOSIS Right axillary lymph nodes, regional lymph adenectomy: One out of seven lymph nodes with metastatic poorly differentiated carcinoma. See comment. COMMENT Immunohistochemistry ([id number]) does not rule out a breast primary. There is focal perinodal extension of tumor. Clinical correlation is suggested. ANTIBODY / CLONE RESULT Block 1 Mammaglobin (31A5) negative GATA3 (L50-823) positive, rare, dim CK8 (85jaouR40) positive Ki-67 (30-9) positive, moderate to high ER (6F11) negative 0% KS (1E2) negative 0% CK19 (A53-B/A2.26) positive Cyclin D1/BCL-1 (SP4) positive CEA (11-7/TF-3HB-1) negative SHELLI (E29) positive CK20 (KS20.8) negative Villin (CWWB1) negative RCC (PN-15) negative CA125 (OC125) positive Previous therapy for metastatic disease: 1) Cisplatin (+/- PARP inhibitor on trial). She underwent a CT scan of the neck, chest abdomen and pelvis at [facility] on 10/05/2017. The CT of the neck revealed an abnormal enhancing right subclavicular lymph node measuring 2.6 x 2.0 x 2.2 cm. There were no other significant abnormalities. CT of the chest corroborated the CT neck findings with a 2.6 x 1.5 mm lymph node in the right supraclavicular region. The abdominopelvic images revealed no evidence of metastatic disease. Bone scan done 10/07/2017 showed some increase in radiopharmaceutical concentration in the distal sternum and in the right posterior and anterior lateral ribs potentially representing limited skeletal metastatic disease. Came off trial. She was seen at [facility] and did not qualify for the 2 clinical trials available due to her pre-existing diabetic neuropathy and history of type 1 diabetes. Current therapy: 1) Houck/carbo. Interim history: Her first 2 cycles of chemotherapy she had no difficulty with. However with subsequent cycle she's been having nausea and vomiting following each 1. She says is not nearly as bad as was with cisplatin but she does admit that she feels a lot of it is anticipatory nausea. She thinks hydration may be able to help her break this phenomenon. She has been using Ativan which hasn't helped. She has pain in both areas of the greater trochanters bilaterally but the left is now slightly worse than right. Neuropathy is stable. She fell last week when stepping down out of her camper. She still working on a full- time basis. She says work is only a few things that gives her sense of normalcy in life. She was very tearful today. She struggling with a decision as to whether or not to stop chemotherapy. Recently she had a friend and fellow jainism member who of metastatic cervical cancer at a young age. PMH, medications and allergies as below personally reviewed by me today. Any changes documented in appropriate section. ROS: Constitutional: Denies episodes of fever and night sweats. Neuro: Denies DOZIER, vertigo, dizziness and imbalance. HEENT: No recent change in voice, vision or hearing. Resp: See above. CVS: Denies exertional chest pain, PND, orthopnea and LE edema. GI: Denies dysgeusia. Denies symptoms of stomatitis. Denies dysphagia and odynophagia. Denies reflux, change in bowel habits and abdominal pain. : Denies dysuria or gross hematuria. No symptoms of bladder outlet obstruction. Endo: Denies hot flashes. Denies polyuria and polydipsia. Denies heat and cold intolerance. Musculoskeletal: See above. Derm: Denies rash. Denies jaundice and diffuse pruritis. Heme: Denies unusual bleeding and unexplained bruising. Psych: Normal mood. PHYSICAL EXAM: Vitals: Blood pressure 117/67, pulse 104, temperature 37 ?C (98.6 ?F), temperature source Oral, weight 87.3 kg (192 lb 8 oz). Well-appearing and in no acute distress. EYES: Sclerae are anicteric bilaterally. ENT: Oral mucosa is unremarkable. There is no sign of thrush or mucositis. NECK: Supple. LYMPHATIC: The firmly enlarged mobile right supraclavicular lymph node measuring approximately 2 cm close to the base of the neck remains stable. No other peripheral adenopathy. RESPIRATORY: Inspiratory breath sounds are of normal intensity in all norris. No rales, wheezes or rhonchi. CARDIOVASCULAR: Rhythm is regular. Normal intensity S1/S2. There is no gallop or murmur. ABDOMEN: The abdomen is nondistended. No organomegaly. No tenderness. Extremities: No swelling or edema. SKIN: No jaundice or rash. No petechiae. NEUROLOGIC: station attendant II-XII are grossly intact. No focal motor weakness. MUSCULOSKELETAL: No muscle wasting. 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 Comprehensive BRCA 1 and 2 testing (scanned 12/05/2013) no mutation Complicated by severe myositis during adjuvant chemotherapy. -KPS is 90%. -Biopsy-proven local regional recurrence. -Sensory neuropathy stable. -Personally reviewed CT images. Stable disease with regards to the left lingular lung metastasis and right cervical lymph node. -There appears to be a new proximal left femur lesion on bone scan. -Long discussion today regarding goals of care. I encouraged her to continue treatment as long she is tolerating it reasonably well. However if x-ray and MRI scan confirmed new proximal femur lesion, I would recommend single agent chemotherapy following that with the understanding that response rate is most likely to be low. Nonetheless MMR testing will be requested on pathology specimen from the axillary lymph node dissection in 2017. ADDENDUM: Testing for MMR status via IHC returned 01/26/2018 showing MMR proficient status. Please see scanned report. Plan: -Okay to proceed with next cycle treatment. -Plain film radiographs of the left femur. MRI of the left femur. -Zometa. Clifford Barakat DO Referring Provider: CLIFFORD BARAKAT [[id number]] Allergies As of Date: 01/23/2018 (No Known Allergies) Date Reviewed: 01/23/2018 Reviewed by: Federica Pimentel LPN - Fully Assessed Reason for Visit: Established Patient [175] Primary Visit Diagnosis:Malignant neoplasm of upper-outer quadrant of right breast in female, estrogen receptor negative (HCC) [C50.411, Z17.1] Other Visit Diagnoses:Malignant neoplasm metastatic to left lung (HCC) [C78.02] Bone metastases (HCC) [C79.51] Abnormal findings on diagnostic imaging of limbs [R93.6] Order(s):XR FEMUR GENERAL 2V AP/LAT LT [[id number]] Order #: [id number] FUTURE MRI UPPER LEG WO/W IVCON LT [[id number]] Order #: [id number] FUTURE [] iv contrast (will be provided with radiology test)MRI Upper Leg LT Inject, intravenously, once for 1dose. No IV access, insert saline lock prior to the beginning of sedation, infusion, injection of imaging exam. Discontinue saline lock post exam. If Pt. has a central line or IVAD, may access for administration according to line specific nursing protocol. Once exam is complete flush line and de-access according to line specific nursing protocol in the MR contrast administration guidelines link.Disp: 1 EachRfl: 0 Follow-up and Disposition History Recorded Prescriptions as of 01/23/2018 Sig: HYDROCODONE 5 MG-ACETAMINOPHE* Take 1 tablet by mouth twice * METOCLOPRAMIDE 10 MG TABLET Take 1 tablet by mouth every * GABAPENTIN 300 MG CAPSULE Take 1 capsule by mouth three* TIMOLOL 0.5 % EYE DROPS Use 1 Drop in both eyes once * DICYCLOMINE 20 MG TABLET Take 20 mg by mouth every 8 h* LORAZEPAM 1 MG TABLET Take 1 tablet by mouth every * CITALOPRAM 20 MG TABLET Take 1 tablet by mouth once d* CLONAZEPAM 0.5 MG TABLET 1 tablet twice daily. PRN NITROFURANTOIN MONOHYDRATE AND * Take 100 mg by mouth twice da* EMPAGLIFLOZIN 10 MG TABLET Take 10 mg by mouth once gamaliel* VITAMIN B COMPLEX CAPSULE Take 1 capsule by mouth twice* CREON ORAL Take 6,000 Units by mouth. Wi* VALACYCLOVIR 500 MG TABLET Take 500 mg by mouth as neede* ERGOCALCIFEROL (VITAMIN D2) 5* Take 50,000 Units by mouth on* * INSULIN GLARGINE (U-100) 100 * Take 50 in am and 70 units in* * HUMALOG KWIKPEN (U-100) INSUL* 15 in am, 15 noon, 20 in philip IV CONTRAST (RADIOLOGY PROCED* MRI Upper Leg LT Inject, intr* PROMETHAZINE 25 MG TABLET Take 1 tablet by mouth every * Patient not taking: Reported on 01/23/2018 Problem List As Of Date 01/23/2018 Noted Resolved THYROID NODULE [E04.1] INVALID FOR* More... Anxiety State, Unspecified [F41.1] 01/22/2009 Depressive Disorder, not Elsewhere Classified [* Priority: Moderate More... DM w/o complication type II, uncontrolled [E11.*INVALID FOR* Priority: Severe More... Other Malaise and Fatigue [R53.81, R53.83] INVALID FOR*01/22/2009 More... HYPERLIPIDEMIA NEC/NOS [E78.5] INVALID FOR* FIBROMYALGIA [SST4931] INVALID FOR* Priority: Moderate OVERWEIGHT [E66.9] INVALID FOR* OTHER HAMMER TOE [M20.40] INVALID FOR* More... URIN TRACT INFECTION RECURRENT [N39.0] INVALID FOR*01/21/2016 More... GENITAL HERPES NOS [A60.00] INVALID FOR* Tobacco Use Disorder [F17.200] INVALID FOR* Priority: Moderate More... CONGENITAL PES PLANUS [Q66.50] INVALID FOR* Displacement of Lumbar Intervertebral Disc with*INVALID FOR* Priority: Moderate More... More... Routine Gynecological Examination [Z01.419] INVALID FOR* Class: Chronic More... 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*INVALID FOR* Malignant neoplasm metastatic to left lung (HCC*INVALID FOR* Examination of participant in clinical trial [Z*INVALID FOR* Bone metastases (HCC) [C79.51] INVALID FOR* Visit Notes: >> Federica Pimentel LPN Mon Jan 23, 2018 9:35 AM Status: Signed Est patient. Labs today @ [facility] 0900, treatment tomorrow. Federica Pimentel LPN Encounter Status:Closed by CLIFFORD BARAKAT DO on 01/23/18 CBC W/DIFF, AUTOMATED Collected: 01/23/2018 Status: F Source: [place] 8:55 AM [facility] [place] REPOSITORY TYPE CODE TESTS RESULT OUT OF RANGE REFERENCE UNITS LAB L100.1000 4.4-11.0 K/mm3 Low WBC 3.1 LAB L100.1200 4.2-5.4 M/mm3 Low RBC 3.31 LAB L100.1300 12.0-15.0 g/dl Low HGB 10.3 LAB L100.1400 37-47 % Low HCT 31.0 LAB L100.1500 81-99 fL Normal MCV 93.7 LAB L100.1600 27.0-32.0 pg Normal MCH 31.1 LAB L100.1700 32-36 g/gl Normal MCHC 33.2 LAB L100.1810 11.6-14.6 % High RDW CV 15.4 LAB L100.1820 35.1-43.9 fl High RDW SD 52.5 LAB L100.1900 150-450 K/mm3 Normal PLT 207 LAB L100.2000 6.2-12.0 fl Normal MPV 9.3 LAB L100.2100 47-70 % Low NEUT% 46.8 LAB L100.2200 19-41 % High LY% 43.0 LAB L100.2300 0-10 % Normal MONO% 8.9 LAB L100.2400 0-5 % Normal EO% 1.3 LAB L100.2500 0-1 % Normal BASO% 0.0 LAB L100.2550 0.0-0.9 % Normal IM GRAN % 0.000 Result Comment: IG% - Immature Granulocytes (promyelocytes, myelocytes and metamyelocytes) > 1% indicates that a LEFT SHIFT is Present. LAB L100.2620 2.0-7.7 X10 3/uL Low Absolute Neut 1.5 LAB L100.2720 0.83-4.51 X10 3/ul Normal Absolute Lymph 1.35 Performed By: #### L100.0100 #### [facility] [address] [place], [place], [id number] BASIC METABOLIC Collected: 01/23/2018 Status: F Source: [place] PROFILE (BMP) 8:55 AM [facility] REPOSITORY TYPE CODE TESTS RESULT OUT OF RANGE REFERENCE UNITS LAB L501.0100 74-106 mg/dL High GLU 287 Result Comment: Glucose result greater than or equal to 200 mg/dL suggests DIABETES MELLITUS per A.D.A. criteria. Please note revised GLUCOSE reference range effective 2017. LAB L501.1000 7-18 mg/dL High BUN 24 LAB L501.1100 0.55-1.02 mg/dL Normal CREAT,SERUM 0.81 Result Comment: The validity of the calculated GFR AND GFRAA in patients over 70 years has not been determined. Clinical correlation is essential. LAB L501.1110 >60 mL/min Normal EST GFR 80 Result Comment: Non- GFR Calc LAB L501.1115 >60 mL/min Normal EST GFR - AA 97 Result Comment: GFR Calc LAB L501.1300 10-20 RATIO High BUN/CRE 29.7 LAB L501.2200 8.5-10.1 mg/dL CA Normal 9.1 LAB L501.5300 136-145 mmol/L NA Normal 137 LAB L501.5600 3.5-5.1 mmol/L K Normal 3.7 LAB L501.5900 98-107 mmol/L CL Normal 101 LAB L501.6100 21.0-32.0 mmol/L Normal CO2 28.0 LAB L501.6200 5-15 Normal GAP 8 Performed By: #### L500.2500, L500.3400 #### [facility] [address] [place], [place], [address] LIVER PROFILE Collected: 01/23/2018 Status: F Source: [place] 8:55 AM [facility] REPOSITORY TYPE CODE TESTS RESULT OUT OF RANGE REFERENCE UNITS LAB L501.1500 6.4-8.2 g/dL Normal T PROT 7.8 LAB L501.1800 3.2-5.0 g/dL Normal ALB 3.5 LAB L501.1950 2.2-4.2 g/dL High GLOB 4.3 LAB L501.4100 15-37 U/L Low AST 13 LAB L501.4305 45-117 U/L Normal ALK P 89 LAB L501.4405 13-56 U/L Normal ALT 20 LAB L501.4600 0.20-1.00 mg/dL Normal T BILI 0.20 LAB L501.4700 0.00-0.30 mg/dL Normal D BILI 0.08 Performed By: #### L500.2500, L500.3400 #### [facility] [address] [place], [address] BONE SCAN WHOLE Observed: 01/20/2018 Status: F Source: [place]UL[place] BODY 9:45 AM [facility] REPOSITORY [facility] Imaging Services [address] [place] [address] Bone Scan Whole Body MR#: [id number] Acct: [id number] Name: PEDRO LUIS WILCOX Rep #: [id number] : 1970 F 47 From: Clay Real DO PCP: Jacinto Person MD Status: REG CLI Study: Bone Scan Whole Body Date of Exam: 01/20/18 Exam# [id number] Ordering Dr: Clifford Barakat DO CLINICAL: 47-year-old female with reported history of carcinoma of the breast. WHOLE BODY 99m Tc MDP RADIONUCLIDE BONE SCINTIGRAPHY COMPARISON: Previous whole body bone scintigraphy study dated 12/06/2017 FINDINGS: Following the intravenous administration of 24.5 mCi of 99m Tc MDP, whole body bone images reveal: 1. Mild increased radiopharmaceutical concentration persists in the right lower anterolateral chest wall-the 11th rib and distal sternum unchanged compared to the previous examination dated 12/06/2017. Newly identified increased uptake is noted in the greater trochanteric aspect of the left proximal femur. 2. Enhanced uptake is currently identified in the acromioclavicular and sternoclavicular compartments of both shoulders, sternoclavicular compartment of the right shoulder, the eighth-ninth thoracic and third lumbar vertebra, bilateral hips, both knee articulations, the right ankle. 3. The remaining skeletal structures are scintigraphically unremarkable with normal-appearing renal images and urinary bladder activity identified. NM/Bone Scan Whole Body IMPRESSION: 1. The increased radiopharmaceutical concentration redefined in the right anterolateral chest wall, 11th rib and distal sternum and currently visualized in the left proximal femur may be further investigated with plain film radiography if not previously obtained. 2. Degenerative arthritis appears evident in the bilateral shoulders, thoracic and lumbar spine, bilateral hip and knee articulations, the right ankle. 3. Compared to the previous whole body bone scintigraphy study dated 12/06/2017, the increase in tracer uptake currently identified in the greater trochanteric aspect of the left proximal femur and persistent abnormalities noted in the right anterolateral chest wall and distal sternum may be further investigated with plain radiography if not previously obtained. Otherwise, there is no significant interval change. Electronically Signed: Clay Real DO at 23:24 EDT Tel , Service support , CC: Jacinto Person MD; Clifford Barakat DO Family And Consumer Education Teacher: Signed ABDOMEN/PELVIS WITH Observed: 01/17/2018 Status: F Source: [place] CONTRAST 2:55 PM [facility] REPOSITORY [facility] Imaging Services [address] [place] [address] Abdomen/Pelvis WITH Contrast MR#: [id number] Acct: [id number] Name: PEDRO LUIS WILCOX Rep #: [id number] : 1970 F 47 From: Diomedes Villagran MD PCP: Jacinto Person MD Status: REG CLI Study: Abdomen/Pelvis WITH Contrast Date of Exam: 01/17/18 Exam# [id number] Ordering Dr: Clifford Barakat DO STUDY: CT ABDOMEN AND PELVIS WITH CONTRAST REASON FOR EXAM: Female, 47 years old. Breast cancer RADIATION DOSAGE (If Supplied By Facility): CTDIvol = ( 14.17 ) mGy, DLP = ( 1844.11 ) mGycm TECHNIQUE: Transaxial images were obtained from the dome of the diaphragm to the symphysis pubis without oral contrast. 100CC ml of Isovue 300 contrast was administered. Sagittal and coronal images were reconstructed. Individualized dose optimization techniques were used for this CT. COMPARISON: 12/08/2017 FINDINGS: There are no calcified gallstones present. The liver is within normal limits. There are no suspicious hepatic lesions. The spleen is normal in size. The pancreas is within normal limits. The adrenal glands are within normal limits. There are no renal or ureteral stones. There is no hydronephrosis. There are no focal renal lesions. Normal visualized stomach. There is no bowel obstruction or inflammation. The appendix is visualized and appears normal. The aorta is normal in caliber. There is no abdominal or pelvic free air, free fluid, fluid collection or lymphadenopathy. There are no destructive osseous lesions. CT/Abdomen/Pelvis WITH Contrast IMPRESSION: No evidence of metastatic disease in the abdomen or pelvis. Electronically Signed: Diomedes Villagran, at 16:00 EDT Tel , Service support , CC: Jacinto Person MD; Clifford Barakat DO Family And Consumer Education Teacher: Signed CHEST WITH CONTRAST Observed: 01/17/2018 Status: F Source: [place] 2:55 PM [facility] REPOSITORY [facility] Imaging Services [address] [place] [address] Chest WITH Contrast MR#: [id number] Acct: [id number] Name: PEDRO LUIS WILCOX Clay Rep #: [id number] : 1970 F 47 From: Lindsay Escobedo MD PCP: Jacinto Person MD Status: REG CLI Study: Chest WITH Contrast Date of Exam: 01/17/18 Exam# [id number] Ordering Dr: Clifford Barakat DO STUDY: CT CHEST WITH CONTRAST REASON FOR EXAM: Female, 47 years old. Breast cancer follow- up, right lumpectomy, PowerPort, hysterectomy. RADIATION DOSAGE (If Supplied By Facility): CTDIvol = ( 14.17 ) mGy, DLP = ( 1844.11 ) mGycm TECHNIQUE: Transaxial 2.5 mm imaging was performed following intravenous administration of 100 ml of Isovue 300 contrast material. Multiplanar coronal and sagittal images were reformatted. Individualized dose optimization techniques were used for this CT. COMPARISON: CT chest 12/08/2017. 10/05/2017. FINDINGS: Left anterior chest wall port via subclavian access with catheter tip in the superior vena cava. Distortion of the right axillary soft tissue and right breast parenchyma consistent with history of surgery. There is a right supraclavicular lymph nodes with enhancement measuring 1.4 x 2.2 cm, previously measuring 1.6 x 2.2 cm. Previously noted irregular opacification anterior medial right upper lobe has resolved. There is near complete resolution of interstitial prominence just superior to the right diaphragm. There is likely minor compression of parenchyma. There are no pulmonary nodules or masses within the lung parenchyma. There is no demonstrated pleural abnormality. Normal heart and pericardium. Normal mediastinum. Normal hilar regions. Normal enhanced pulmonary arteries. Normal aorta arch and descending thoracic aorta. There are multi-level degenerative changes of the thoracic spine. There are no destructive osseous lesions. Upper abdominal assessment please refer to CT abdomen and pelvis. CT/Chest WITH Contrast IMPRESSION: No significant change of right supraclavicular enhancing lymph node. No pulmonary nodules or masses within the lung parenchyma suspicious for neoplasm. No hilar or mediastinal lymphadenopathy or destructive osseous lesions. Electronically Signed: Lindsay Escobedo MD at 7:10 EDT , Service support , CC: Jacinto Person MD; Clifford Barakat DO Family And Consumer Education Teacher: Signed CNOVSP Observed: 01/03/2018 Status: COMPLETED Source: [place] 8:30 AM [facility] REPOSITORY Visit (SP) Office (DANYEL) PEDRO LUIS WILCOX ([id number]) 1970 F Date Time Provider Department 01/03/18 8:30 AM ASIA REYES (HEALTH CARE LIAISON) DANYEL During your visit today, we recorded the following information about you: Temperature Pulse Blood pressure Weight 98.2 degrees 104/minute 148/71 88 kg Asia Reyes, JEYSON.HEALTH CARE LIAISON 01/04/2018 8:36 AM Signed Chief Complaint Patient presents with: Established Patient HPI: Pedro Luis Wilcox is a 47 year old female who presents here today for evaluation for chemotherapy at [facility] today. Per Dr. Barakat's previous note: H/o type 1 DM (diagnosed about 27 years ago; has sensory neuropathy to mid lower leg b/l; no other complications). ? Her mother has a h/o breast cancer, so patient had been undergoing annual mammogram. ? The patient underwent a screening mammogram on 08/30/2013. A 1.6 cm nodular density was appreciated in the tail of the right breast. She underwent targeted ultrasound the same day. That study revealed a 9 mm hypoechoic solid nodule at the 10:00 position of the breast measuring 6 cm from the nipple. ? Stereotactic core needle biopsy on 09/13/2013. The tissue revealed invasive poorly differentiated ductal carcinoma. The specimen was negative for both estrogen and progesterone receptors. Both were quantified at 0%. HER-2 was 2+ an immunostain and nonamplified by FISH testing. ? The patient underwent an MRI of the breast on 09/20/2013. The study revealed that the left breast had no suspicious findings. In the right breast there was a 1.6 cm abnormal enhancing mass in the superior outer aspect of the right breast approximately 10 cm from the nipple. This correlated to the biopsy area. ? Underwent partial mastectomy with SLN biopsy 10/05/2013. The final pathology revealed an invasive poorly differentiated ductal carcinoma measuring 1.3 cm in size. There was a single focus. DCIS was present measuring 2 mm in maximum dimension. The grade of the cancer was 3. Margins were negative. The closest was 6 mm. Lymphovascular invasion was not identified. One sentinel lymph node was retrieved. It was negative. ? Received two cycles of TC. ? Admitted for severe PAGE. ? Admitted 12/17/2013 due to increase in thigh pain and dyspnea. Markedly elevated CK. No increase in serum Cr. ? Chemotherapy stopped after cycle #2. ? Was seen by ornamental plasterer helper at . 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 ? Completed radiation 03/26/2014. ? ? ? She started developing intermittent shortness of breath with exertion. She also has a cough that is a dry cough. She was taken off her PAM inhibitor but the cough has not changed. She had a PA and lateral chest film done on 10/22/2016 that demonstrated no abnormality. She then underwent a CT scan the chest without IV contrast on 11/06/2016. Two nodules were observed in the pulmonary parenchyma. One was located in the right lower lobe and the second was located in the lingular lobe. Each measured 8 mm and were thought to be consistent with metastatic disease. CT of the abdomen and pelvis on 11/20/2016 as well as repeat CT chest with IV contrast demonstrated a thick walled gallbladder suspicious for cystitis, chronic and redemonstration of the lung nodules. No concern for metastatic disease in the abdomen or pelvis. Brain MRI on 11/23/2016 was normal. PET scan demonstrated multiple foci of increased glucose concentration manifested in the right axilla, significant region generating a standard uptake value of 7.6. The maximal axial diameter the largest individual hypermetabolic soft tissue density on review of the CT of the thorax was approximately 23.1 mm in transverse dimension. ? An ultrasound of the right axilla and subclavicular region on 12/02/2016 demonstrated that within the right axilla there was a cluster of abnormal appearing hypoechoic nodules. The largest measured 2.3 x 1.50 1.4 cm. In the subclavicular region there was also evidence of several hypoechoic nodules the largest measuring 2.75 x 2.85 1.5 cm. ? She then underwent a right axillary core needle biopsy on 12/07/2016. ? The pathology demonstrated a poorly differentiated metastatic carcinoma. The specimen was negative for both ER and KS as well as HER-2. I discussed the case with the pathologist today who told me that histologically/morphologically the specimen was consistent with her previous specimen of breast cancer. The pathologist will issue an addendum quantifying ER and KS 0 as well as HER-2 at 0. ? She had a stress test and echocardiogram about 3 years ago and had no evidence of coronary artery disease. She had LV concentric hypertrophy with preserved ejection fraction. ? She underwent port placement along with right axillary lymph node dissection on 12/24/2016. ? MICROSCOPIC DIAGNOSIS Right axillary lymph nodes, regional lymph adenectomy: One out of seven lymph nodes with metastatic poorly differentiated carcinoma. See comment. COMMENT Immunohistochemistry ([id number]) does not rule out a breast primary. There is focal perinodal extension of tumor. Clinical correlation is suggested. ? ANTIBODY / CLONE RESULT Block 1 Mammaglobin (31A5) negative GATA3 (L50-823) positive, rare, dim CK8 (70zmpzP80) positive Ki-67 (30-9) positive, moderate to high ER (6F11) negative 0% KS (1E2) negative 0% CK19 (A53-B/A2.26) positive Cyclin D1/BCL-1 (SP4) positive CEA (11-7/TF-3HB-1) negative SHELLI (E29) positive CK20 (KS20.8) negative Villin (CWWB1) negative RCC (PN-15) negative CA125 (OC125) positive ? Previous therapy for metastatic disease: 1) Cisplatin (+/- PARP inhibitor on trial). ? She underwent a CT scan of the neck, chest abdomen and pelvis at [facility] on 10/05/2017. The CT of the neck revealed an abnormal enhancing right subclavicular lymph node measuring 2.6 x 2.0 x 2.2 cm. There were no other significant abnormalities. CT of the chest corroborated the CT neck findings with a 2.6 x 1.5 mm lymph node in the right supraclavicular region. The abdominopelvic images revealed no evidence of metastatic disease. Bone scan done 10/07/2017 showed some increase in radiopharmaceutical concentration in the distal sternum and in the right posterior and anterior lateral ribs potentially representing limited skeletal metastatic disease. Came off trial. ? She was seen at [facility] and did not qualify for the 2 clinical trials available due to her pre-existing diabetic neuropathy and history of type 1 diabetes. ? Current therapy: 1) Houck/carbo. I'm ok. I was able to go away this weekend and didn't think about my cancer. I was hoping that my labs weren't good so that I didn't have to do this today, but I will. I want to get the scans after this. Appetite:good Energy level:fair Denies fevers. Mouth:one sores-It's from my denture. Resp:denies cough or sob Cardiac:denies chest pain/palpitations GI:denies abd pain, +n/v in the mornings and then I'm ok- that just started after the last treatment., moving bowels regularly :denies dysuria/hematuria Extrem:denies pain Endo:denies hot flashes Skin:denies rashes/lesions Heme:denies bleeding The ROS is otherwise negative. Past medical history, appointments, medications, allergies reviewed. No changes. EXAM: BP 148/71 Pulse 104 Temp 36.8 ?C (98.2 ?F) Wt 88 kg (194 lb) BMI 29.54 kg/m? APPEARANCE Well appearing, alert, in no acute distress, well- hydrated, well nourished. MOUTH no mucositis/thrush HEART RRR with normal S1 and S2, no murmurs LUNG clear to auscultation LYMPH NODES No cervical lymphadenopathy, enlarged right supraclavicular lymph node approx 1.5-2 cm and No axillary lymphadenopathy. ABDOMEN bowel sounds normoactive, no bruits, soft, non-tender, non-distended, without organomegaly or palpable masses EXTREMITIES No edema RLE, +swelling to LLE (US done previously-neg) NEURO Awake, alert and oriented x 3, Normal gait and No involuntary motions. SKIN Skin color, texture, turgor normal, no suspicious rashes or lesions LABS: Done at [facility] Reviewed. ASSESSMENT/PLAN: 1. Malignant neoplasm of upper-outer quadrant of right breast in female, estrogen receptor negative (HCC) - ICD9: 174.4, V86.1, ICD10: C50.411, Z17.1 (primary diagnosis) pT1c (1.6 cm; grade 3; no AL invasion) pN0(sn) MX ER/KS negative HER2 non-amplified invasive ductal carcinoma of the right breast. Comprehensive BRCA 1 and 2 testing (scanned 12/05/2013) no mutation Complicated by severe myositis during adjuvant chemotherapy. KPS is 90%. Biopsy-proven local regional recurrence. 2. Malignant neoplasm metastatic to left lung (HCC) - ICD9: 197.0, ICD10: C78.02 - Overall tolerating gemzar/carbo well. - Reviewed labs done at [facility]. - Rx phenergan. Pt. aware to not take with reglan. - Proceed as scheduled today at [facility] for treatment. - CT chest/abd/pelvis/bone scan (to be done at [facility]) after this cycle at [facility]. - Follow up in [address] Barakat to review scans (prior to next cycle) with CBC/CMP (done at [facility]). - Pt. aware to call office with any questions/concerns. The patient indicates understanding of these issues and agrees with the plan. Discussed case with Dr. Barakat who agrees with treatment plan. Asia Reyes APRN.OSEI Langston LPN, TIFFANIE 01/03/2018 8:55 AM Signed Est pt, discuss recent lab results. Chemo @ [facility] today Orlando Langston LPN Referring Provider: CLIFFORD BARAKAT [[id number]] Allergies As of Date: 01/03/2018 (No Known Allergies) Date Reviewed: 01/03/2018 Reviewed by: Asia (Equipment Engineering Technician) Eric - Fully Assessed Reason for Visit: Established Patient [175] Primary Visit Diagnosis:Malignant neoplasm of upper-outer quadrant of right breast in female, estrogen receptor negative (HCC) [C50.411, Z17.1] Other Visit Diagnoses:Malignant neoplasm metastatic to left lung (HCC) [C78.02] Malignant neoplasm of breast in female, estrogen receptor negative, unspecified laterality, unspecified site of breast (HCC) [C50.919, Z17.1] Order(s):promethazine (PHENERGAN) 25 mg tabletTake 1 tablet by mouth every 6 hours as needed. FOR NAUSEADisp: 20 tabletRfl: 2 CT ABD/PEL W IVCON [[id number]] Order #: [id number] FUTURE CT CHEST W IVCON [[id number]] Order #: [id number] FUTURE iv contrast (will be provided with radiology test)CT Chest ABD/PEL-Inject, intravenously, once for 1 dose.No IV access, insert saline lock prior to the beginning of sedation, infusion, injection of imaging exam. Discontinue saline lock post exam. If Pt. has a central line or IVAD, may access for administration according to line specific nursing protocol. Once exam is complete flush line and de-access according to line specific nursing protocol in the CT contrast administration guidelines link.Disp: 1 EachRfl: 0 enteric contrast (will be provided with radiology test)For CT CHESTABD/PEL W IVCON Routine order Administer, As Directed One Time Only, via Oral, Rectal, both Oral and Rectal, Enteric Tube, Stoma or Indwelling Catheter, Enteric Contrast as designated per enteric contrast guidelinesDisp: 1 EachRfl: 0 NM BONE WHOLE BODY [[id number]] Order #: [id number] FUTURE Follow-up and Disposition History Recorded Prescriptions as of 01/03/2018 Sig: HYDROCODONE 5 MG-ACETAMINOPHE* Take 1 tablet by mouth twice * METOCLOPRAMIDE 10 MG TABLET Take 1 tablet by mouth every * GABAPENTIN 300 MG CAPSULE Take 1 capsule by mouth three* TIMOLOL 0.5 % EYE DROPS Use 1 Drop in both eyes once * DICYCLOMINE 20 MG TABLET Take 20 mg by mouth every 8 h* LORAZEPAM 1 MG TABLET Take 1 tablet by mouth every * CITALOPRAM 20 MG TABLET Take 1 tablet by mouth once d* CLONAZEPAM 0.5 MG TABLET 1 tablet twice daily. PRN NITROFURANTOIN MONOHYDRATE AND * Take 100 mg by mouth twice da* EMPAGLIFLOZIN 10 MG TABLET Take 10 mg by mouth once gamaliel* VITAMIN B COMPLEX CAPSULE Take 1 capsule by mouth twice* CREON ORAL Take 6,000 Units by mouth. Wi* VALACYCLOVIR 500 MG TABLET Take 500 mg by mouth as neede* ERGOCALCIFEROL (VITAMIN D2) 5* Take 50,000 Units by mouth on* * INSULIN GLARGINE (U-100) 100 * Take 50 in am and 70 units in* * HUMALOG KWIKPEN (U-100) INSUL* 15 in am, 15 noon, 20 in philip IV CONTRAST (RADIOLOGY PROCED* CT Chest ABD/PEL-Inject, intr* ENTERIC CONTRAST (RADIOLOGY P* For CT CHESTABD/PEL W IVCON R* PROMETHAZINE 25 MG TABLET Take 1 tablet by mouth every * Medication notes this encounter HYDROCODONE 5 MG-ACETAMINOPHEN 325 MG TABLET >> Orlando Langston LPN, LPN 01/03/2018 8:30 AM >> ORLANDO LANGSTON Jan 03, 2018 8:30 AM PRN Problem List As Of Date 01/03/2018 Noted Resolved THYROID NODULE [E04.1] INVALID FOR* More... Anxiety State, Unspecified [F41.1] 01/22/2009 Depressive Disorder, not Elsewhere Classified [* Priority: Moderate More... DM w/o complication type II, uncontrolled [E11.*INVALID FOR* Priority: Severe More... Other Malaise and Fatigue [R53.81, R53.83] INVALID FOR*01/22/2009 More... HYPERLIPIDEMIA NEC/NOS [E78.5] INVALID FOR* FIBROMYALGIA [[id number]] INVALID FOR* Priority: Moderate OVERWEIGHT [E66.9] INVALID FOR* OTHER HAMMER TOE [M20.40] INVALID FOR* More... URIN TRACT INFECTION RECURRENT [N39.0] INVALID FOR*01/21/2016 More... GENITAL HERPES NOS [A60.00] INVALID FOR* Tobacco Use Disorder [F17.200] INVALID FOR* Priority: Moderate More... CONGENITAL PES PLANUS [Q66.50] INVALID FOR* Displacement of Lumbar Intervertebral Disc with*INVALID FOR* Priority: Moderate More... More... Routine Gynecological Examination [Z01.419] INVALID FOR* Class: Chronic More... 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*INVALID FOR* Malignant neoplasm metastatic to left lung (HCC*INVALID FOR* Examination of participant in clinical trial [Z*INVALID FOR* Visit Notes: >> TIFFANIE Mann Lpn Jan 03, 2018 8:30 AM Status: Signed Est pt, discuss recent lab results. Chemo @ [facility] today Orlando Langston LPN Encounter Status:Closed by ASIA REYES CNP on 01/04/18 PROGRESS Observed: 01/03/2018 Status: COMPLETED Source: [place] 8:29 AM [facility] REPOSITORY HNO ID: [id number] Author: Asia Reyes Service: (none) Author Type: Nurse Practitioner Type: Progress Notes Filed: 01/04/2018 8:36 AM Note Text: Chief Complaint Patient presents with: Established Patient HPI: Pedro Luis Wilcox is a 47 year old female who presents here today for evaluation for chemotherapy at [facility] today. Per Dr. Barakat's previous note: H/o type 1 DM (diagnosed about 27 years ago; has sensory neuropathy to mid lower leg b/l; no other complications). ? Her mother has a h/o breast cancer, so patient had been undergoing annual mammogram. ? The patient underwent a screening mammogram on 08/30/2013. A 1.6 cm nodular density was appreciated in the tail of the right breast. She underwent targeted ultrasound the same day. That study revealed a 9 mm hypoechoic solid nodule at the 10:00 position of the breast measuring 6 cm from the nipple. ? Stereotactic core needle biopsy on 09/13/2013. The tissue revealed invasive poorly differentiated ductal carcinoma. The specimen was negative for both estrogen and progesterone receptors. Both were quantified at 0%. HER-2 was 2+ an immunostain and nonamplified by FISH testing. ? The patient underwent an MRI of the breast on 09/20/2013. The study revealed that the left breast had no suspicious findings. In the right breast there was a 1.6 cm abnormal enhancing mass in the superior outer aspect of the right breast approximately 10 cm from the nipple. This correlated to the biopsy area. ? Underwent partial mastectomy with SLN biopsy 10/05/2013. The final pathology revealed an invasive poorly differentiated ductal carcinoma measuring 1.3 cm in size. There was a single focus. DCIS was present measuring 2 mm in maximum dimension. The grade of the cancer was 3. Margins were negative. The closest was 6 mm. Lymphovascular invasion was not identified. One sentinel lymph node was retrieved. It was negative. ? Received two cycles of TC. ? Admitted for severe PAGE. ? Admitted 12/17/2013 due to increase in thigh pain and dyspnea. Markedly elevated CK. No increase in serum Cr. ? Chemotherapy stopped after cycle #2. ? Was seen by ornamental plasterer helper at . 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 ? Completed radiation 03/26/2014. ? ? ? She started developing intermittent shortness of breath with exertion. She also has a cough that is a dry cough. She was taken off her PAM inhibitor but the cough has not changed. She had a PA and lateral chest film done on 10/22/2016 that demonstrated no abnormality. She then underwent a CT scan the chest without IV contrast on 11/06/2016. Two nodules were observed in the pulmonary parenchyma. One was located in the right lower lobe and the second was located in the lingular lobe. Each measured 8 mm and were thought to be consistent with metastatic disease. CT of the abdomen and pelvis on 11/20/2016 as well as repeat CT chest with IV contrast demonstrated a thick walled gallbladder suspicious for cystitis, chronic and redemonstration of the lung nodules. No concern for metastatic disease in the abdomen or pelvis. Brain MRI on 11/23/2016 was normal. PET scan demonstrated multiple foci of increased glucose concentration manifested in the right axilla, significant region generating a standard uptake value of 7.6. The maximal axial diameter the largest individual hypermetabolic soft tissue density on review of the CT of the thorax was approximately 23.1 mm in transverse dimension. ? An ultrasound of the right axilla and subclavicular region on 12/02/2016 demonstrated that within the right axilla there was a cluster of abnormal appearing hypoechoic nodules. The largest measured 2.3 x 1.50 1.4 cm. In the subclavicular region there was also evidence of several hypoechoic nodules the largest measuring 2.75 x 2.85 1.5 cm. ? She then underwent a right axillary core needle biopsy on 12/07/2016. ? The pathology demonstrated a poorly differentiated metastatic carcinoma. The specimen was negative for both ER and KS as well as HER- 2. I discussed the case with the pathologist today who told me that histologically/morphologically the specimen was consistent with her previous specimen of breast cancer. The pathologist will issue an addendum quantifying ER and KS 0 as well as HER-2 at 0. ? She had a stress test and echocardiogram about 3 years ago and had no evidence of coronary artery disease. She had LV concentric hypertrophy with preserved ejection fraction. ? She underwent port placement along with right axillary lymph node dissection on 12/24/2016. ? MICROSCOPIC DIAGNOSIS Right axillary lymph nodes, regional lymph adenectomy: One out of seven lymph nodes with metastatic poorly differentiated carcinoma. See comment. COMMENT Immunohistochemistry ([id number]) does not rule out a breast primary. There is focal perinodal extension of tumor. Clinical correlation is suggested. ? ANTIBODY / CLONE RESULT Block 1 Mammaglobin (31A5) negative GATA3 (L50-823) positive, rare, dim CK8 (42vdikT54) positive Ki-67 (30-9) positive, moderate to high ER (6F11) negative 0% KS (1E2) negative 0% CK19 (A53-B/A2.26) positive Cyclin D1/BCL-1 (SP4) positive CEA (11-7/TF-3HB-1) negative SHELLI (E29) positive CK20 (KS20.8) negative Villin (CWWB1) negative RCC (PN-15) negative CA125 (OC125) positive ? Previous therapy for metastatic disease: 1) Cisplatin (+/- PARP inhibitor on trial). ? She underwent a CT scan of the neck, chest abdomen and pelvis at [facility] on 10/05/2017. The CT of the neck revealed an abnormal enhancing right subclavicular lymph node measuring 2.6 x 2.0 x 2.2 cm. There were no other significant abnormalities. CT of the chest corroborated the CT neck findings with a 2.6 x 1.5 mm lymph node in the right supraclavicular region. The abdominopelvic images revealed no evidence of metastatic disease. Bone scan done 10/07/2017 showed some increase in radiopharmaceutical concentration in the distal sternum and in the right posterior and anterior lateral ribs potentially representing limited skeletal metastatic disease. Came off trial. ? She was seen at [facility] and did not qualify for the 2 clinical trials available due to her pre-existing diabetic neuropathy and history of type 1 diabetes. ? Current therapy: 1) Houck/carbo. I'm ok. I was able to go away this weekend and didn't think about my cancer. I was hoping that my labs weren't good so that I didn't have to do this today, but I will. I want to get the scans after this. Appetite:good Energy level:fair Denies fevers. Mouth:one sores-It's from my denture. Resp:denies cough or sob Cardiac:denies chest pain/palpitations GI:denies abd pain, +n/v in the mornings and then I'm ok- that just started after the last treatment., moving bowels regularly :denies dysuria/hematuria Extrem:denies pain Endo:denies hot flashes Skin:denies rashes/lesions Heme:denies bleeding The ROS is otherwise negative. Past medical history, appointments, medications, allergies reviewed. No changes. EXAM: BP 148/71 Pulse 104 Temp 36.8 ?C (98.2 ?F) Wt 88 kg (194 lb) BMI 29.54 kg/m? APPEARANCE Well appearing, alert, in no acute distress, well-hydrated, well nourished. MOUTH no mucositis/thrush HEART RRR with normal S1 and S2, no murmurs LUNG clear to auscultation LYMPH NODES No cervical lymphadenopathy, enlarged right supraclavicular lymph node approx 1.5-2 cm and No axillary lymphadenopathy. ABDOMEN bowel sounds normoactive, no bruits, soft, non-tender, non-distended, without organomegaly or palpable masses EXTREMITIES No edema RLE, +swelling to LLE (US done previously-neg) NEURO Awake, alert and oriented x 3, Normal gait and No involuntary motions. SKIN Skin color, texture, turgor normal, no suspicious rashes or lesions LABS: Done at [facility] Reviewed. ASSESSMENT/PLAN: 1. Malignant neoplasm of upper-outer quadrant of right breast in female, estrogen receptor negative (HCC) - ICD9: 174.4, V86.1, ICD10: C50.411, Z17.1 (primary diagnosis) pT1c (1.6 cm; grade 3; no AL invasion) pN0(sn) MX ER/KS negative HER2 non-amplified invasive ductal carcinoma of the right breast. Comprehensive BRCA 1 and 2 testing (scanned 12/05/2013) no mutation Complicated by severe myositis during adjuvant chemotherapy. KPS is 90%. Biopsy-proven local regional recurrence. 2. Malignant neoplasm metastatic to left lung (HCC) - ICD9: 197.0, ICD10: C78.02 - Overall tolerating gemzar/carbo well. - Reviewed labs done at [facility]. - Rx phenergan. Pt. aware to not take with reglan. - Proceed as scheduled today at [facility] for treatment. - CT chest/abd/pelvis/bone scan (to be done at [facility]) after this cycle at [facility]. - Follow up in [address] Barakat to review scans (prior to next cycle) with CBC/CMP (done at [facility]). - Pt. aware to call office with any questions/concerns. The patient indicates understanding of these issues and agrees with the plan. Discussed case with Dr. aBrakat who agrees with treatment plan. Asia Reyes APRN.HEALTH CARE LIAISON CBC W/DIFF, AUTOMATED Collected: 01/03/2018 Status: F Source: [place] 6:13 AM [facility] [place] REPOSITORY TYPE CODE TESTS RESULT OUT OF RANGE REFERENCE UNITS LAB L100.1000 4.4-11.0 K/mm3 Low WBC 4.3 LAB L100.1200 4.2-5.4 M/mm3 Low RBC 2.87 LAB L100.1300 12.0-15.0 g/dl Low HGB 9.2 LAB L100.1400 37-47 % Low HCT 27.4 LAB L100.1500 81-99 fL Normal MCV 95.5 LAB L100.1600 27.0-32.0 pg High MCH 32.1 LAB L100.1700 32-36 g/gl Normal MCHC 33.6 LAB L100.1810 11.6-14.6 % High RDW CV 14.8 LAB L100.1820 35.1-43.9 fl High RDW SD 48.5 LAB L100.1900 150-450 K/mm3 Low PLT 149 LAB L100.2000 6.2-12.0 fl Normal MPV 9.7 LAB L100.2100 47-70 % Normal NEUT% 52.3 LAB L100.2200 19-41 % Normal LY% 38.4 LAB L100.2300 0-10 % Normal MONO% 7.5 LAB L100.2400 0-5 % Normal EO% 1.4 LAB L100.2500 0-1 % Normal BASO% 0.2 LAB L100.2550 0.0-0.9 % Normal IM GRAN % 0.200 Result Comment: IG% - Immature Granulocytes (promyelocytes, myelocytes and metamyelocytes) > 1% indicates that a LEFT SHIFT is Present. LAB L100.2620 2.0-7.7 X10 3/uL Normal Absolute Neut 2.2 LAB L100.2720 0.83-4.51 X10 3/ul Normal Absolute Lymph 1.63 Performed By: #### L100.0100 #### [facility] [address] [place], [place], [id number] BASIC METABOLIC Collected: 01/03/2018 Status: F Source: [place] PROFILE (BMP) 6:13 AM [facility] [place] REPOSITORY TYPE CODE TESTS RESULT OUT OF RANGE REFERENCE UNITS LAB L501.0100 74-106 mg/dL High GLU 255 Result Comment: Glucose result greater than or equal to 200 mg/dL suggests DIABETES MELLITUS per A.D.A. criteria. Please note revised GLUCOSE reference range effective 2017. LAB L501.1000 7-18 mg/dL High BUN 25 LAB L501.1100 0.55-1.02 mg/dL Normal CREAT,SERUM 0.64 Result Comment: The validity of the calculated GFR AND GFRAA in patients over 70 years has not been determined. Clinical correlation is essential. LAB L501.1110 >60 mL/min Normal EST GFR 105 Result Comment: Non- GFR Calc LAB L501.1115 >60 mL/min Normal EST GFR - AA 127 Result Comment: GFR Calc LAB L501.1300 10-20 RATIO High BUN/CRE 38.9 LAB L501.2200 8.5-10.1 mg/dL CA Normal 9.2 LAB L501.5300 136-145 mmol/L NA Normal 140 LAB L501.5600 3.5-5.1 mmol/L K Normal 3.7 LAB L501.5900 98-107 mmol/L CL Normal 103 LAB L501.6100 21.0-32.0 mmol/L Normal CO2 27.0 LAB L501.6200 5-15 Normal GAP 10 Performed By: #### L500.2500, L500.3400 #### [facility] [address] [place], [place], [address] LIVER PROFILE Collected: 01/03/2018 Status: F Source: [place] 6:13 AM [facility] [place] REPOSITORY TYPE CODE TESTS RESULT OUT OF RANGE REFERENCE UNITS LAB L501.1500 6.4-8.2 g/dL Normal T PROT 7.0 LAB L501.1800 3.2-5.0 g/dL Low ALB 3.1 LAB L501.1950 2.2-4.2 g/dL Normal GLOB 3.9 LAB L501.4100 15-37 U/L Low AST 12 LAB L501.4305 45-117 U/L Normal ALK P 92 LAB L501.4405 13-56 U/L Normal ALT 20 LAB L501.4600 0.20-1.00 mg/dL Normal T BILI 0.20 LAB L501.4700 0.00-0.30 mg/dL Normal D BILI 0.06 Performed By: #### L500.2500, L500.3400 #### [facility] [address] [place], [place], [id number] CBC W/DIFF, AUTOMATED Collected: 12/20/2017 Status: F Source: [place] 6:26 AM [facility] [place] REPOSITORY TYPE CODE TESTS RESULT OUT OF RANGE REFERENCE UNITS LAB L100.1000 4.4-11.0 K/mm3 Low WBC 3.8 LAB L100.1200 4.2-5.4 M/mm3 Low RBC 2.89 LAB L100.1300 12.0-15.0 g/dl Low HGB 9.0 LAB L100.1400 37-47 % Low HCT 27.1 LAB L100.1500 81-99 fL Normal MCV 93.8 LAB L100.1600 27.0-32.0 pg Normal MCH 31.1 LAB L100.1700 32-36 g/gl Normal MCHC 33.2 LAB L100.1810 11.6-14.6 % Normal RDW CV 13.2 LAB L100.1820 35.1-43.9 fl Normal RDW SD 42.8 LAB L100.1900 150-450 K/mm3 Normal PLT 360 LAB L100.2000 6.2-12.0 fl Normal MPV 8.4 LAB L100.2100 47-70 % Low NEUT% 30.5 LAB L100.2200 19-41 % High LY% 58.5 LAB L100.2300 0-10 % Normal MONO% 8.9 LAB L100.2400 0-5 % Normal EO% 0.8 LAB L100.2500 0-1 % Normal BASO% 0.8 LAB L100.2550 0.0-0.9 % Normal IM GRAN % 0.500 Result Comment: IG% - Immature Granulocytes (promyelocytes, myelocytes and metamyelocytes) > 1% indicates that a LEFT SHIFT is Present. LAB L100.2620 2.0-7.7 X10 3/uL Low Absolute Neut 1.2 LAB L100.2720 0.83-4.51 X10 3/ul Normal Absolute Lymph 2.23 Performed By: #### L100.0100 #### [facility] [address] [place], [place], [address] BASIC METABOLIC Collected: 12/20/2017 Status: F Source: [place] (B[place]) 6:26 AM [facility] [place] REPOSITORY TYPE CODE TESTS RESULT OUT OF RANGE REFERENCE UNITS LAB L501.0100 74-106 mg/dL High GLU 292 Result Comment: Glucose result greater than or equal to 200 mg/dL suggests DIABETES MELLITUS per A.D.A. criteria. Please note revised GLUCOSE reference range effective 2017. LAB L501.1000 7-18 mg/dL High BUN 23 LAB L501.1100 0.55-1.02 mg/dL Normal CREAT,SERUM 0.67 Result Comment: The validity of the calculated GFR AND GFRAA in patients over 70 years has not been determined. Clinical correlation is essential. LAB L501.1110 >60 mL/min Normal EST GFR 99 Result Comment: Non- GFR Calc LAB L501.1115 >60 mL/min Normal EST GFR - AA 120 Result Comment: GFR Calc LAB L501.1300 10-20 RATIO High BUN/CRE 34.3 LAB L501.2200 8.5-10.1 mg/dL CA Normal 8.5 LAB L501.5300 136-145 mmol/L NA Normal 139 LAB L501.5600 3.5-5.1 mmol/L K Normal 4.1 LAB L501.5900 98-107 mmol/L CL Normal 101 LAB L501.6100 21.0-32.0 mmol/L Normal CO2 28.0 LAB L501.6200 5-15 Normal GAP 10 Performed By: #### L500.2500, L500.3400 #### [facility] [address] [place], [address] LIVER PROFILE Collected: 12/20/2017 Status: F Source: [place] 6:26 AM [facility] [place] REPOSITORY TYPE CODE TESTS RESULT OUT OF RANGE REFERENCE UNITS LAB L501.1500 6.4-8.2 g/dL Normal T PROT 7.4 LAB L501.1800 3.2-5.0 g/dL Normal ALB 3.2 LAB L501.1950 2.2-4.2 g/dL Normal GLOB 4.2 LAB L501.4100 15-37 U/L Low AST 12 LAB L501.4305 45-117 U/L Normal ALK P 100 LAB L501.4405 13-56 U/L Normal ALT 23 LAB L501.4600 0.20-1.00 mg/dL Normal T BILI 0.20 LAB L501.4700 0.00-0.30 mg/dL Normal D BILI < 0.05 Performed By: #### L500.2500, L500.3400 #### [facility] [address] [place], [address] CNOVSP Observed: 12/12/2017 Status: COMPLETED Source: [place] 3:50 PM [facility] REPOSITORY Visit (SP) Office ([place]) PEDRO LUIS WILCOX ([id number]) 1970 F Date Time Provider Department 12/12/17 3:50 PM CLIFFORD BARAKAT During your visit today, we recorded the following information about you: Temperature Pulse Blood pressure Weight 99.2 degrees 104/minute 150/67 89.8 kg Federica Pimentel LPN 12/12/2017 3:50 PM Signed Est patient. Discuss recent labs and treatment tomorrow. Federica James MasciDO 12/12/2017 4:02 PM Signed Diagnosis: 1) Breast cancer. 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 Her mother has a h/o breast cancer, so patient had been undergoing annual mammogram. The patient underwent a screening mammogram on 08/30/2013. A 1.6 cm nodular density was appreciated in the tail of the right breast. She underwent targeted ultrasound the same day. That study revealed a 9 mm hypoechoic solid nodule at the 10:00 position of the breast measuring 6 cm from the nipple. Stereotactic core needle biopsy on 09/13/2013. The tissue revealed invasive poorly differentiated ductal carcinoma. The specimen was negative for both estrogen and progesterone receptors. Both were quantified at 0%. HER-2 was 2+ an immunostain and nonamplified by FISH testing. The patient underwent an MRI of the breast on 09/20/2013. The study revealed that the left breast had no suspicious findings. In the right breast there was a 1.6 cm abnormal enhancing mass in the superior outer aspect of the right breast approximately 10 cm from the nipple. This correlated to the biopsy area. Underwent partial mastectomy with SLN biopsy 10/05/2013. The final pathology revealed an invasive poorly differentiated ductal carcinoma measuring 1.3 cm in size. There was a single focus. DCIS was present measuring 2 mm in maximum dimension. The grade of the cancer was 3. Margins were negative. The closest was 6 mm. Lymphovascular invasion was not identified. One sentinel lymph node was retrieved. It was negative. Received two cycles of TC. Admitted for severe PAGE. Admitted 12/17/2013 due to increase in thigh pain and dyspnea. Markedly elevated CK. No increase in serum Cr. Chemotherapy stopped after cycle #2. Was seen by ornamental plasterer helper at . 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 Completed radiation 03/26/2014. She started developing intermittent shortness of breath with exertion. She also has a cough that is a dry cough. She was taken off her PAM inhibitor but the cough has not changed. She had a PA and lateral chest film done on 10/22/2016 that demonstrated no abnormality. She then underwent a CT scan the chest without IV contrast on 11/06/2016. Two nodules were observed in the pulmonary parenchyma. One was located in the right lower lobe and the second was located in the lingular lobe. Each measured 8 mm and were thought to be consistent with metastatic disease. CT of the abdomen and pelvis on 11/20/2016 as well as repeat CT chest with IV contrast demonstrated a thick walled gallbladder suspicious for cystitis, chronic and redemonstration of the lung nodules. No concern for metastatic disease in the abdomen or pelvis. Brain MRI on 11/23/2016 was normal. PET scan demonstrated multiple foci of increased glucose concentration manifested in the right axilla, significant region generating a standard uptake value of 7.6. The maximal axial diameter the largest individual hypermetabolic soft tissue density on review of the CT of the thorax was approximately 23.1 mm in transverse dimension. An ultrasound of the right axilla and subclavicular region on 12/02/2016 demonstrated that within the right axilla there was a cluster of abnormal appearing hypoechoic nodules. The largest measured 2.3 x 1.50 1.4 cm. In the subclavicular region there was also evidence of several hypoechoic nodules the largest measuring 2.75 x 2.85 1.5 cm. She then underwent a right axillary core needle biopsy on 12/07/2016. The pathology demonstrated a poorly differentiated metastatic carcinoma. The specimen was negative for both ER and KS as well as HER-2. I discussed the case with the pathologist today who told me that histologically/morphologically the specimen was consistent with her previous specimen of breast cancer. The pathologist will issue an addendum quantifying ER and KS 0 as well as HER-2 at 0. She had a stress test and echocardiogram about 3 years ago and had no evidence of coronary artery disease. She had LV concentric hypertrophy with preserved ejection fraction. She underwent port placement along with right axillary lymph node dissection on 12/24/2016. MICROSCOPIC DIAGNOSIS Right axillary lymph nodes, regional lymph adenectomy: One out of seven lymph nodes with metastatic poorly differentiated carcinoma. See comment. COMMENT Immunohistochemistry ([id number]) does not rule out a breast primary. There is focal perinodal extension of tumor. Clinical correlation is suggested. ANTIBODY / CLONE RESULT Block 1 Mammaglobin (31A5) negative GATA3 (L50-823) positive, rare, dim CK8 (61xaqhI51) positive Ki-67 (30-9) positive, moderate to high ER (6F11) negative 0% KS (1E2) negative 0% CK19 (A53-B/A2.26) positive Cyclin D1/BCL-1 (SP4) positive CEA (11-7/TF-3HB-1) negative SHELLI (E29) positive CK20 (KS20.8) negative Villin (CWWB1) negative RCC (PN-15) negative CA125 (OC125) positive Previous therapy for metastatic disease: 1) Cisplatin (+/- PARP inhibitor on trial). She underwent a CT scan of the neck, chest abdomen and pelvis at [facility] on 10/05/2017. The CT of the neck revealed an abnormal enhancing right subclavicular lymph node measuring 2.6 x 2.0 x 2.2 cm. There were no other significant abnormalities. CT of the chest corroborated the CT neck findings with a 2.6 x 1.5 mm lymph node in the right supraclavicular region. The abdominopelvic images revealed no evidence of metastatic disease. Bone scan done 10/07/2017 showed some increase in radiopharmaceutical concentration in the distal sternum and in the right posterior and anterior lateral ribs potentially representing limited skeletal metastatic disease. Came off trial. She was seen at [facility] and did not qualify for the 2 clinical trials available due to her pre-existing diabetic neuropathy and history of type 1 diabetes. Current therapy: 1) Houck/carbo. Interim history: She is completed 2 cycles of therapy. She had no recurrence of fever. Following day 8 she did have some nausea but that was fairly well controlled with Reglan. She feels well now. Appetite is doing well. Neuropathy of the lower extremities is stable. She is not having a cough but said she had a cough for a couple days last week. No shortness of breath at rest currently. No bone pain other than long-standing bilateral hip pain which is likely muscular in nature. PMH, medications and allergies as below personally reviewed by me today. Any changes documented in appropriate section. ROS: Constitutional: Denies episodes of fever and night sweats. Neuro: Denies DOZIER, vertigo, dizziness and imbalance. HEENT: No recent change in voice, vision or hearing. Resp: See above. CVS: Denies exertional chest pain, PND, orthopnea and LE edema. GI: Denies dysgeusia. Denies symptoms of stomatitis. Denies dysphagia and odynophagia. Denies reflux, change in bowel habits and abdominal pain. : Denies dysuria or gross hematuria. No symptoms of bladder outlet obstruction. Endo: Denies hot flashes. Denies polyuria and polydipsia. Denies heat and cold intolerance. Musculoskeletal: See above. Derm: Denies rash. Denies jaundice and diffuse pruritis. Heme: Denies unusual bleeding and unexplained bruising. Psych: Normal mood. PHYSICAL EXAM: Vitals: There were no vitals taken for this visit. Well-appearing and in no acute distress. EYES: Sclerae are anicteric bilaterally. ENT: Oral mucosa is unremarkable. There is no sign of thrush or mucositis. NECK: Supple. LYMPHATIC: The firmly enlarged mobile right supraclavicular lymph node measuring approximately 2 cm close to the base of the neck remains stable. No other peripheral adenopathy. RESPIRATORY: Inspiratory breath sounds are of normal intensity in all norris. No rales, wheezes or rhonchi. CARDIOVASCULAR: Rhythm is regular. Normal intensity S1/S2. There is no gallop or murmur. ABDOMEN: The abdomen is nondistended. No organomegaly. No tenderness. Extremities: No swelling or edema. SKIN: No jaundice or rash. No petechiae. NEUROLOGIC: station attendant II-XII are grossly intact. No focal motor weakness. MUSCULOSKELETAL: No muscle wasting. 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 Comprehensive BRCA 1 and 2 testing (scanned 12/05/2013) no mutation Complicated by severe myositis during adjuvant chemotherapy. -KPS is 90%. -Biopsy-proven local regional recurrence. -Sensory neuropathy stable. -I personally reviewed the CT scan images of the neck, chest, abdomen and pelvis done at [facility] on 12/08/2016. There is a barely perceptible nodule in the lingula of the left lung (original site of metastatic disease). There is a new fluffy appearing nodule medial in the anterior right upper lobe (she completed a course of antibiotic for fever and cough). The lymph node on the neck CT scan was not mentioned by the radiologist but currently measures 21.7 mm and previously measured 24 mm. No other new lesions noted. Bone scan shows stable distal sternal and 11th rib uptake. -I don't think a PET scan would help at this juncture. Likely that the right upper lobe lesion is inflammatory in nature. She continues to tolerate the current chemotherapy regimen very well relative to other treatment she's had in the remainder of her disease is stable site recommended continuing therapy for now and repeating CT scan after another 2 cycles. She expressed an understanding and agreement with this plan. -We discussed that when the disease fails to remain stable on the current treatment, we would use single agent chemotherapy drugs and MMR testing will be requested on her pathology specimen. Plan: -Okay to proceed with cycle 3 of treatment. -CT scan following 2 cycles. Clifford Barakat DO Referring Provider: CLIFFORD BARAKAT [[id number]] Allergies As of Date: 12/12/2017 (No Known Allergies) Date Reviewed: 12/12/2017 Reviewed by: Federica Pimentel LPN - Fully Assessed Reason for Visit: Established Patient [175] Primary Visit Diagnosis:Malignant neoplasm of upper-outer quadrant of right breast in female, estrogen receptor negative (HCC) [C50.411, Z17.1] Follow-up and Disposition History Recorded Prescriptions as of 12/12/2017 Sig: HYDROCODONE 5 MG-ACETAMINOPHE* Take 1 tablet by mouth twice * METOCLOPRAMIDE 10 MG TABLET Take 1 tablet by mouth every * GABAPENTIN 300 MG CAPSULE Take 1 capsule by mouth three* TIMOLOL 0.5 % EYE DROPS Use 1 Drop in both eyes once * DICYCLOMINE 20 MG TABLET Take 20 mg by mouth every 8 h* LORAZEPAM 1 MG TABLET Take 1 tablet by mouth every * LIDOCAINE-PRILOCAINE 2.5 %-2.* Apply 1 application to affect* CITALOPRAM 20 MG TABLET Take 1 tablet by mouth once d* CLONAZEPAM 0.5 MG TABLET 1 tablet twice daily. PRN NITROFURANTOIN MONOHYDRATE AND * Take 100 mg by mouth twice da* EMPAGLIFLOZIN 10 MG TABLET Take 10 mg by mouth once gamaliel* VITAMIN B COMPLEX CAPSULE Take 1 capsule by mouth twice* CREON ORAL Take 6,000 Units by mouth. Wi* VALACYCLOVIR 500 MG TABLET Take 500 mg by mouth as neede* ERGOCALCIFEROL (VITAMIN D2) 5* Take 50,000 Units by mouth on* * INSULIN GLARGINE (U-100) 100 * Take 50 in am and 70 units in* * HUMALOG KWIKPEN (U-100) INSUL* 15 in am, 15 noon, 20 in philip Problem List As Of Date 12/12/2017 Noted Resolved THYROID NODULE [E04.1] INVALID FOR* More... Anxiety State, Unspecified [F41.1] 01/22/2009 Depressive Disorder, not Elsewhere Classified [* Priority: Moderate More... DM w/o complication type II, uncontrolled [E11.*INVALID FOR* Priority: Severe More... Other Malaise and Fatigue [R53.81, R53.83] INVALID FOR*01/22/2009 More... HYPERLIPIDEMIA NEC/NOS [E78.5] INVALID FOR* FIBROMYALGIA [PQE1181] INVALID FOR* Priority: Moderate OVERWEIGHT [E66.9] INVALID FOR* OTHER HAMMER TOE [M20.40] INVALID FOR* More... URIN TRACT INFECTION RECURRENT [N39.0] INVALID FOR*01/21/2016 More... GENITAL HERPES NOS [A60.00] INVALID FOR* Tobacco Use Disorder [F17.200] INVALID FOR* Priority: Moderate More... CONGENITAL PES PLANUS [Q66.50] INVALID FOR* Displacement of Lumbar Intervertebral Disc with*INVALID FOR* Priority: Moderate More... More... Routine Gynecological Examination [Z01.419] INVALID FOR* Class: Chronic More... 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*INVALID FOR* Malignant neoplasm metastatic to left lung (HCC*INVALID FOR* Examination of participant in clinical trial [Z*INVALID FOR* Visit Notes: >> Federica Pimentel TIFFANIE Mon Dec 12, 2017 3:41 PM Status: Signed Est patient. Discuss recent labs and treatment tomorrow. Federica Leyla MORENO Encounter Status:Closed by CLIFFORD BARAKAT DO on 12/12/17 PROGRESS Observed: 12/12/2017 Status: COMPLETED Source: [place] 3:41 PM [facility] REPOSITORY HNO ID: [id number] Author: Clifford Barakat Service: (none) Author Type: Physician Type: Progress Notes Filed: 12/12/2017 4:02 PM Note Text: Diagnosis: 1) Breast cancer. 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 Her mother has a h/o breast cancer, so patient had been undergoing annual mammogram. The patient underwent a screening mammogram on 08/30/2013. A 1.6 cm nodular density was appreciated in the tail of the right breast. She underwent targeted ultrasound the same day. That study revealed a 9 mm hypoechoic solid nodule at the 10:00 position of the breast measuring 6 cm from the nipple. Stereotactic core needle biopsy on 09/13/2013. The tissue revealed invasive poorly differentiated ductal carcinoma. The specimen was negative for both estrogen and progesterone receptors. Both were quantified at 0%. HER-2 was 2+ an immunostain and nonamplified by FISH testing. The patient underwent an MRI of the breast on 09/20/2013. The study revealed that the left breast had no suspicious findings. In the right breast there was a 1.6 cm abnormal enhancing mass in the superior outer aspect of the right breast approximately 10 cm from the nipple. This correlated to the biopsy area. Underwent partial mastectomy with SLN biopsy 10/05/2013. The final pathology revealed an invasive poorly differentiated ductal carcinoma measuring 1.3 cm in size. There was a single focus. DCIS was present measuring 2 mm in maximum dimension. The grade of the cancer was 3. Margins were negative. The closest was 6 mm. Lymphovascular invasion was not identified. One sentinel lymph node was retrieved. It was negative. Received two cycles of TC. Admitted for severe PAGE. Admitted 12/17/2013 due to increase in thigh pain and dyspnea. Markedly elevated CK. No increase in serum Cr. Chemotherapy stopped after cycle #2. Was seen by ornamental plasterer helper at . 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 Completed radiation 03/26/2014. She started developing intermittent shortness of breath with exertion. She also has a cough that is a dry cough. She was taken off her PAM inhibitor but the cough has not changed. She had a PA and lateral chest film done on 10/22/2016 that demonstrated no abnormality. She then underwent a CT scan the chest without IV contrast on 11/06/2016. Two nodules were observed in the pulmonary parenchyma. One was located in the right lower lobe and the second was located in the lingular lobe. Each measured 8 mm and were thought to be consistent with metastatic disease. CT of the abdomen and pelvis on 11/20/2016 as well as repeat CT chest with IV contrast demonstrated a thick walled gallbladder suspicious for cystitis, chronic and redemonstration of the lung nodules. No concern for metastatic disease in the abdomen or pelvis. Brain MRI on 11/23/2016 was normal. PET scan demonstrated multiple foci of increased glucose concentration manifested in the right axilla, significant region generating a standard uptake value of 7.6. The maximal axial diameter the largest individual hypermetabolic soft tissue density on review of the CT of the thorax was approximately 23.1 mm in transverse dimension. An ultrasound of the right axilla and subclavicular region on 12/02/2016 demonstrated that within the right axilla there was a cluster of abnormal appearing hypoechoic nodules. The largest measured 2.3 x 1.50 1.4 cm. In the subclavicular region there was also evidence of several hypoechoic nodules the largest measuring 2.75 x 2.85 1.5 cm. She then underwent a right axillary core needle biopsy on 12/07/2016. The pathology demonstrated a poorly differentiated metastatic carcinoma. The specimen was negative for both ER and KS as well as HER- 2. I discussed the case with the pathologist today who told me that histologically/morphologically the specimen was consistent with her previous specimen of breast cancer. The pathologist will issue an addendum quantifying ER and KS 0 as well as HER-2 at 0. She had a stress test and echocardiogram about 3 years ago and had no evidence of coronary artery disease. She had LV concentric hypertrophy with preserved ejection fraction. She underwent port placement along with right axillary lymph node dissection on 12/24/2016. MICROSCOPIC DIAGNOSIS Right axillary lymph nodes, regional lymph adenectomy: One out of seven lymph nodes with metastatic poorly differentiated carcinoma. See comment. COMMENT Immunohistochemistry ([id number]) does not rule out a breast primary. There is focal perinodal extension of tumor. Clinical correlation is suggested. ANTIBODY / CLONE RESULT Block 1 Mammaglobin (31A5) negative GATA3 (L50-823) positive, rare, dim CK8 (35xafmD88) positive Ki-67 (30-9) positive, moderate to high ER (6F11) negative 0% KS (1E2) negative 0% CK19 (A53-B/A2.26) positive Cyclin D1/BCL-1 (SP4) positive CEA (11-7/TF-3HB-1) negative SHELLI (E29) positive CK20 (KS20.8) negative Villin (CWWB1) negative RCC (PN-15) negative CA125 (OC125) positive Previous therapy for metastatic disease: 1) Cisplatin (+/- PARP inhibitor on trial). She underwent a CT scan of the neck, chest abdomen and pelvis at [facility] on 10/05/2017. The CT of the neck revealed an abnormal enhancing right subclavicular lymph node measuring 2.6 x 2.0 x 2.2 cm. There were no other significant abnormalities. CT of the chest corroborated the CT neck findings with a 2.6 x 1.5 mm lymph node in the right supraclavicular region. The abdominopelvic images revealed no evidence of metastatic disease. Bone scan done 10/07/2017 showed some increase in radiopharmaceutical concentration in the distal sternum and in the right posterior and anterior lateral ribs potentially representing limited skeletal metastatic disease. Came off trial. She was seen at [facility] and did not qualify for the 2 clinical trials available due to her pre-existing diabetic neuropathy and history of type 1 diabetes. Current therapy: 1) Houck/carbo. Interim history: She is completed 2 cycles of therapy. She had no recurrence of fever. Following day 8 she did have some nausea but that was fairly well controlled with Reglan. She feels well now. Appetite is doing well. Neuropathy of the lower extremities is stable. She is not having a cough but said she had a cough for a couple days last week. No shortness of breath at rest currently. No bone pain other than long-standing bilateral hip pain which is likely muscular in nature. PMH, medications and allergies as below personally reviewed by me today. Any changes documented in appropriate section. ROS: Constitutional: Denies episodes of fever and night sweats. Neuro: Denies DOZIER, vertigo, dizziness and imbalance. HEENT: No recent change in voice, vision or hearing. Resp: See above. CVS: Denies exertional chest pain, PND, orthopnea and LE edema. GI: Denies dysgeusia. Denies symptoms of stomatitis. Denies dysphagia and odynophagia. Denies reflux, change in bowel habits and abdominal pain. : Denies dysuria or gross hematuria. No symptoms of bladder outlet obstruction. Endo: Denies hot flashes. Denies polyuria and polydipsia. Denies heat and cold intolerance. Musculoskeletal: See above. Derm: Denies rash. Denies jaundice and diffuse pruritis. Heme: Denies unusual bleeding and unexplained bruising. Psych: Normal mood. PHYSICAL EXAM: Vitals: There were no vitals taken for this visit. Well-appearing and in no acute distress. EYES: Sclerae are anicteric bilaterally. ENT: Oral mucosa is unremarkable. There is no sign of thrush or mucositis. NECK: Supple. LYMPHATIC: The firmly enlarged mobile right supraclavicular lymph node measuring approximately 2 cm close to the base of the neck remains stable. No other peripheral adenopathy. RESPIRATORY: Inspiratory breath sounds are of normal intensity in all norris. No rales, wheezes or rhonchi. CARDIOVASCULAR: Rhythm is regular. Normal intensity S1/S2. There is no gallop or murmur. ABDOMEN: The abdomen is nondistended. No organomegaly. No tenderness. Extremities: No swelling or edema. SKIN: No jaundice or rash. No petechiae. NEUROLOGIC: station attendant II-XII are grossly intact. No focal motor weakness. MUSCULOSKELETAL: No muscle wasting. 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 Comprehensive BRCA 1 and 2 testing (scanned 12/05/2013) no mutation Complicated by severe myositis during adjuvant chemotherapy. -KPS is 90%. -Biopsy-proven local regional recurrence. -Sensory neuropathy stable. -I personally reviewed the CT scan images of the neck, chest, abdomen and pelvis done at [facility] on 12/08/2016. There is a barely perceptible nodule in the lingula of the left lung (original site of metastatic disease). There is a new fluffy appearing nodule medial in the anterior right upper lobe (she completed a course of antibiotic for fever and cough). The lymph node on the neck CT scan was not mentioned by the radiologist but currently measures 21.7 mm and previously measured 24 mm. No other new lesions noted. Bone scan shows stable distal sternal and 11th rib uptake. -I don't think a PET scan would help at this juncture. Likely that the right upper lobe lesion is inflammatory in nature. She continues to tolerate the current chemotherapy regimen very well relative to other treatment she's had in the remainder of her disease is stable site recommended continuing therapy for now and repeating CT scan after another 2 cycles. She expressed an understanding and agreement with this plan. -We discussed that when the disease fails to remain stable on the current treatment, we would use single agent chemotherapy drugs and MMR testing will be requested on her pathology specimen. Plan: -Okay to proceed with cycle 3 of treatment. -CT scan following 2 cycles. Clifford Barakat DO CBC W/DIFF, AUTOMATED Collected: 12/09/2017 Status: F Source: [place] 11:18 AM [facility] [place] REPOSITORY TYPE CODE TESTS RESULT OUT OF RANGE REFERENCE UNITS LAB L100.1000 4.4-11.0 K/mm3 Normal WBC 5.0 LAB L100.1200 4.2-5.4 M/mm3 Low RBC 2.81 LAB L100.1300 12.0-15.0 g/dl Low HGB 8.7 LAB L100.1400 37-47 % Low HCT 26.4 LAB L100.1500 81-99 fL Normal MCV 94.0 LAB L100.1600 27.0-32.0 pg Normal MCH 31.0 LAB L100.1700 32-36 g/gl Normal MCHC 33.0 LAB L100.1810 11.6-14.6 % Normal RDW CV 12.8 LAB L100.1820 35.1-43.9 fl Normal RDW SD 39.8 LAB L100.1900 150-450 K/mm3 Normal PLT 161 LAB L100.2000 6.2-12.0 fl Normal MPV 9.6 LAB L100.2100 47-70 % Normal NEUT% 59.4 LAB L100.2200 19-41 % Normal LY% 28.6 LAB L100.2300 0-10 % High MONO% 11.0 LAB L100.2400 0-5 % Normal EO% 0.4 LAB L100.2500 0-1 % Normal BASO% 0.2 LAB L100.2550 0.0-0.9 % Normal IM GRAN % 0.400 Result Comment: IG% - Immature Granulocytes (promyelocytes, myelocytes and metamyelocytes) > 1% indicates that a LEFT SHIFT is Present. LAB L100.2620 2.0-7.7 X10 3/uL Normal Absolute Neut 3.0 LAB L100.2720 0.83-4.51 X10 3/ul Normal Absolute Lymph 1.43 Performed By: #### L100.0100 #### [facility] [address] [place], [address] BASIC METABOLIC Collected: 12/09/2017 Status: F Source: [place] PROFILE (BMP) 11:18 AM [facility] [place] REPOSITORY TYPE CODE TESTS RESULT OUT OF RANGE REFERENCE UNITS LAB L501.0100 74-106 mg/dL High GLU 165 Result Comment: Fasting Glucose result greater than or equal to 126 mg/dL suggests DIABETES MELLITUS per A.D.A. criteria. Please note revised GLUCOSE reference range effective 2017. LAB L501.1000 7-18 mg/dL High BUN 22 LAB L501.1100 0.55-1.02 mg/dL Normal CREAT,SERUM 0.55 Result Comment: The validity of the calculated GFR AND GFRAA in patients over 70 years has not been determined. Clinical correlation is essential. LAB L501.1110 >60 mL/min Normal EST GFR 124 Result Comment: Non- GFR Calc LAB L501.1115 >60 mL/min Normal EST GFR - AA 150 Result Comment: GFR Calc LAB L501.1300 10-20 RATIO High BUN/CRE 39.8 LAB L501.2200 8.5-10.1 mg/dL CA Normal 8.9 LAB L501.5300 136-145 mmol/L NA Normal 138 LAB L501.5600 3.5-5.1 mmol/L K Normal 4.0 LAB L501.5900 98-107 mmol/L CL Normal 102 LAB L501.6100 21.0-32.0 mmol/L Normal CO2 27.0 LAB L501.6200 5-15 Normal GAP 9 Performed By: #### L500.2500, L500.3400 #### [facility] [address] [place], [place], [id number] LIVER PROFILE Collected: 12/09/2017 Status: F Source: [place] 11:18 AM [facility] [place] REPOSITORY TYPE CODE TESTS RESULT OUT OF RANGE REFERENCE UNITS LAB L501.1500 6.4-8.2 g/dL Normal T PROT 7.5 LAB L501.1800 3.2-5.0 g/dL Low ALB 3.0 LAB L501.1950 2.2-4.2 g/dL High GLOB 4.5 LAB L501.4100 15-37 U/L Low AST 9 LAB L501.4305 45-117 U/L Normal ALK P 92 LAB L501.4405 13-56 U/L Normal ALT 18 LAB L501.4600 0.20-1.00 mg/dL Low T BILI 0.10 LAB L501.4700 0.00-0.30 mg/dL Normal D BILI 0.06 Performed By: #### L500.2500, L500.3400 #### [facility] [address], [place], [id number] URINALYSIS, EMPLOYEE Collected: 12/09/2017 Status: F Source: [place] 9:45 AM [facility] [place] REPOSITORY TYPE CODE TESTS RESULT OUT OF RANGE REFERENCE UNITS LAB L400.3000 Yellow COLOR Normal Yellow LAB L400.3050 Clear Normal CLARITY Sl. Cloudy LAB L400.3200 Normal mg/dl High GLUCOSE, UR 1000 LAB L400.3300 Negative mg/dL Normal BILIRUBIN URINE Negative LAB L400.3400 Negative mg/dl Normal KETONE UR Negative LAB L400.3465 1.002-1.030 Normal SP.GR. DIPSTX 1.015 LAB L400.3550 5.0 - 8.0 pH UR Normal 6.0 LAB L400.3600 Negative mg/dl High PROT DIPSTX 100 LAB L400.3700 Normal mg/dl Normal UROBILI Normal LAB L400.3750 Negative Normal NITRITE UR Negative LAB L400.3780 Negative /ul High 10 OCCULT BLOOD-UR LAB L400.3800 Negative /ul High LEUK 25 ESTERASE Performed By: #### L400.0100 #### [facility] [address] [place], [address] CBC W/DIFF, AUTOMATED Collected: 12/09/2017 Status: F Source: [place] 9:45 AM [facility] [place] REPOSITORY TYPE CODE TESTS RESULT OUT OF RANGE REFERENCE UNITS LAB L100.1000 4.4-11.0 K/mm3 Normal WBC 5.0 LAB L100.1200 4.2-5.4 M/mm3 Low RBC 2.81 LAB L100.1300 12.0-15.0 g/dl Low HGB 8.7 LAB L100.1400 37-47 % Low HCT 26.4 LAB L100.1500 81-99 fL Normal MCV 94.0 LAB L100.1600 27.0-32.0 pg Normal MCH 31.0 LAB L100.1700 32-36 g/gl Normal MCHC 33.0 LAB L100.1810 11.6-14.6 % Normal RDW CV 12.8 LAB L100.1820 35.1-43.9 fl Normal RDW SD 39.8 LAB L100.1900 150-450 K/mm3 Normal PLT 161 LAB L100.2000 6.2-12.0 fl Normal MPV 9.6 LAB L100.2100 47-70 % Normal NEUT% 59.4 LAB L100.2200 19-41 % Normal LY% 28.6 LAB L100.2300 0-10 % High MONO% 11.0 LAB L100.2400 0-5 % Normal EO% 0.4 LAB L100.2500 0-1 % Normal BASO% 0.2 LAB L100.2550 0.0-0.9 % Normal IM GRAN % 0.400 Result Comment: IG% - Immature Granulocytes (promyelocytes, myelocytes and metamyelocytes) > 1% indicates that a LEFT SHIFT is Present. LAB L100.2620 2.0-7.7 X10 3/uL Normal Absolute Neut 3.0 LAB L100.2720 0.83-4.51 X10 3/ul Normal Absolute Lymph 1.43 Performed By: #### L100.0100, L100.0200 #### [facility] [address] [facility]. [place], [place], [id number] CBC, EMPLOYEE Collected: 12/09/2017 Status: F Source: [place] 9:45 AM [facility] [place] REPOSITORY TYPE CODE TESTS RESULT OUT OF RANGE REFERENCE UNITS LAB L100.2110 47-70 % Normal NEUT% 59.4 LAB L100.2210 19-41 % Normal LY% 28.6 LAB L100.2310 0-10 % High MONO% 11.0 LAB L100.2410 0-5 % Normal EO% 0.4 LAB L100.2510 0-1 % Normal BASO% 0.2 Performed By: #### L100.0100, L100.0200 #### [facility] [address] [place], [place], [id number] NICOTINE URINE DRUG Collected: 12/09/2017 Status: F Source: [place] SCREEN 9:45 AM [facility] [place] REPOSITORY TYPE CODE TESTS RESULT OUT OF RANGE REFERENCE UNITS LAB L505.6250 TO BE Normal CONFIRMED Result Comment: CONFIRMATORY TESTING FOR ALL POSITIVE URINE DRUG SCREEN RESULTS WILL ONLY BE SENT OUT UPON PHYSICIAN ORDER. The results of Urine Drug Screen methods provide only preliminary analytical test results. A more specific alternate chemical method must be used in order to obtain a confirmed analytical result. Gas chromatography/mass spectrometery (GC/MS) is the preferred confirmatory method. Clinical consideration and professional judgement should be applied to any drug of abuse test result, particularly when preliminary positive results are used. LAB L505.6270 <200 ng/mL Normal COT DRG Negative SCREEN Result Comment: Cotinine is the first-stage metabolite of Nicotine. Performed By: #### L505.6240 #### [facility] [place], [address] EMPLOYEE PROFILE Collected: 12/09/2017 Status: F Source: [place] 9:45 AM [facility] [place] REPOSITORY Order Comment: SEND REULTS TO ALSO TYPE CODE TESTS RESULT OUT OF RANGE REFERENCE UNITS LAB L501.0100 74-106 mg/dL High GLU 161 Result Comment: Fasting Glucose result greater than or equal to 126 mg/dL suggests DIABETES MELLITUS per A.D.A. criteria. Please note revised GLUCOSE reference range effective 2017. LAB L501.1000 7-18 mg/dL High BUN 21 LAB L501.1100 0.55-1.02 mg/dL Normal CREAT,SERUM 0.55 Result Comment: The validity of the calculated GFR AND GFRAA in patients over 70 years has not been determined. Clinical correlation is essential. LAB L501.1110 >60 mL/min Normal EST GFR 125 Result Comment: Non- GFR Calc LAB L501.1115 >60 mL/min Normal EST GFR - AA 151 Result Comment: GFR Calc LAB L501.1300 10-20 RATIO High BUN/CRE 38.2 LAB L501.1400 2.6-6.0 mg/dL Normal URIC 6.0 Result Comment: The drugs N-Acetylcysteine and Metamizole may falsely depress this assay. LAB L501.1500 6.4-8.2 g/dL Normal T PROT 7.5 LAB L501.1800 3.2-5.0 g/dL Low ALB 3.0 LAB L501.1950 2.2-4.2 g/dL High GLOB 4.5 LAB L501.2000 0.9-2.4 RATIO Low A/G 0.7 LAB L501.2200 8.5-10.1 mg/dL Normal CA 8.7 LAB L501.2300 2.5-4.9 mg/dL Normal PHOS 3.1 LAB L501.4100 15-37 U/L Low AST 11 LAB L501.4305 45-117 U/L Normal ALK P 95 LAB L501.4405 13-56 U/L Normal ALT 17 LAB L501.4600 0.20-1.00 mg/dL Low T BILI 0.10 LAB L501.4700 0.00-0.30 mg/dL Normal D BILI 0.07 LAB L501.4900 200 mg/dL Normal CHOL 138 Result Comment: <200 mg/dL Desirable 200-240 mg/dL Borderline >240 mg/dL High Risk LAB L501.5000 mg/dL Normal TRIG 53 Result Comment: The drugs N-Acetylcysteine and Metamizole may falsely depress this assay. Serum Triglycerides Reference Interval Normal <150 mg/dL Borderline high 150 - 199 mg/dL High 200 - 499 mg/dL Very High > or = 500 mg/dL LAB L501.5300 136-145 mmol/L Normal NA 138 LAB L501.5600 3.5-5.1 mmol/L Normal K 4.1 LAB L501.5900 98-107 mmol/L Normal CL 103 LAB L501.6100 21.0-32.0 mmol/L Normal CO2 26.0 LAB L501.6200 5-15 Normal 9 GAP LAB L501.6400 mg/dL Normal HDL 51 Result Comment: The drugs N-Acetylcysteine and Metamizole may falsely depress this assay. Reference Range HDL <40 mg/dL Low HDL Cholesterol HDL >or= 60 mg/dL High HDL Cholesterol LAB L501.6475 Normal CHOL:HDL 2.70 LAB L501.6500 0-130 mg/dL Normal LDL 76 LAB L501.6600 5-40 mg/dL Normal VLDL 11 LAB L504.2610 84-246 U/L Normal LDH 225 Performed By: #### L500.2900 #### [facility] [address] [place], [address] CHEST WITH CONTRAST Observed: 12/08/2017 Status: F Source: [place] 10:34 AM [facility] [place] REPOSITORY [facility] Imaging Services [address] [place] [address] Chest WITH Contrast MR#: [id number] Acct: [id number] Name: PEDRO LUIS WILCOX Rep #: [id number] : 1970 F 47 From: Darryl Ford MD PCP: Jacinto Person MD Status: REG CLI Study: Chest WITH Contrast Date of Exam: 12/08/17 Exam# [id number] Ordering Dr: Clifford Barakat DO STUDY: CT CHEST WITH CONTRAST REASON FOR EXAM: Female, 47 years old. The patient has a history of right breast carcinoma. Prior right lumpectomy. RADIATION DOSAGE (If Supplied By Facility): CTDIvol = ( 34.06 ) mGy, DLP = ( 2793.9 ) mGycm TECHNIQUE: Transaxial imaging was performed following intravenous administration of 100 ml of Isovue 300 contrast material. Multiplanar coronal and sagittal images were reformatted. Individualized dose optimization techniques were used for this CT. COMPARISON: Comparison is made with prior study dated October 05, 2017. FINDINGS: A left-sided portacatheter is seen. The tip is in the superior vena cava. The patient is status post right lumpectomy. There is evidence of overlying skin thickening of the right breast most likely postsurgical in nature. This is unchanged. Stable 2.4 cm x 1.6 cm enhancing lymph node in the right supraclavicular region. This is unchanged. There is a 1.3 cm x 1 cm irregular nodular density in the anterior medial aspect of the right upper lobe. This was not seen on prior study. Mild increased linear markings at the right lung base suggestive of a atelectasis and/or scarring. There is no demonstrated pleural abnormality. Normal heart and pericardium. Normal mediastinum. Normal hilar regions. Normal enhanced pulmonary arteries. Normal aorta arch and descending thoracic aorta. There are multi-level degenerative changes of the thoracic spine. Fatty infiltration of the liver. CT/Chest WITH Contrast IMPRESSION: Stable enhancing right supraclavicular lymph node. There is a new 1.3 cm x 1 cm irregular nodular density in the anterior medial aspect of the right upper lobe. Correlation with a PET scan is recommended. Electronically Signed: Darryl Ford MD at 15:23 EDT Tel [phone], Service support , CC: Jacinto Person MD; Clifford Barakat DO Family And Consumer Education Teacher: Signed ABDOMEN/PELVIS WITH Observed: 12/08/2017 Status: F Source: [place] CONTRAST 10:34 AM [facility] [place] REPOSITORY [facility] Imaging Services [address] [place] [address] Abdomen/Pelvis WITH Contrast MR#: [id number] Acct: [id number] Name: PEDRO LUIS WILCOX Rep #: [id number] : 1970 F 47 From: Darryl Ford MD PCP: Jacinto Person MD Status: REG CLI Study: Abdomen/Pelvis WITH Contrast Date of Exam: 12/08/17 Exam# [id number] Ordering Dr: Clifford Barakat DO STUDY: CT ABDOMEN AND PELVIS WITH CONTRAST REASON FOR EXAM: Female, 47 years old. History of right breast cancer with lumpectomy. RADIATION DOSAGE (If Supplied By Facility): CTDIvol = ( 34.06 ) mGy, DLP = ( 2793.9 ) mGycm TECHNIQUE: Transaxial images were obtained from the dome of the diaphragm to the symphysis pubis with oral contrast. 100 ml of Isovue 300 contrast was administered. Sagittal and coronal images were reconstructed. Individualized dose optimization techniques were used for this CT. COMPARISON: Comparison is made with prior study dated October 05, 2017. FINDINGS: Mild increased markings at the right lung base suggestive of scarring and/or atelectasis. The visualized portions of the heart are within normal limits. There is decreased attenuation of the liver consistent with steatosis. Normal gallbladder and extrahepatic biliary system. Normal spleen. Normal pancreas. Normal bilateral adrenal glands. Normal right kidney. Normal left kidney. There is a small hiatal hernia. Normal small intestine. Normal colon. The appendix is visualized and appears normal. There is scattered atherosclerotic calcification of the abdominal aorta, without a demonstrated aneurysm. Normal inferior vena cava. Normal retroperitoneum. Normal urinary bladder. There is absence of the uterus consistent with a prior hysterectomy. There are small benign-appearing bilateral inguinal lymph nodes. Normal abdominal wall. There are degenerative changes of the visualized lumbar spine. CT/Abdomen/Pelvis WITH Contrast IMPRESSION: Fatty infiltration of the liver. Electronically Signed: Darryl Ford MD at 15:26 EDT Tel [phone], Service support , CC: Jacinto Person MD; Clifford Barakat DO Family And Consumer Education Teacher: Signed SOFT TISSUE NECK WITH Observed: 12/08/2017 Status: F Source: [place] CONTRAST 10:34 AM [facility] [place] REPOSITORY [facility] Imaging Services [address] [place] [address] Soft Tissue Neck WITH Contrast MR#: [id number] Acct: [id number] Name: PEDRO LUIS WILCOX Rep #: [id number] : 1970 F 47 From: Rylan Schmitz MD PCP: Jacinto Person MD Status: REG CLI Study: Soft Tissue Neck WITH Contrast Date of Exam: 12/08/17 Exam# [id number] Ordering Dr: Clifford Barakat DO STUDY: CT SOFT TISSUE NECK WITH CONTRAST REASON FOR EXAM: Female, 47 years old. Right breast cancer, lumpectomy and hysterectomy, postchemotherapy check. RADIATION DOSAGE (If Supplied By Facility): CTDIvol = ( 34.06 ) mGy, DLP = ( 2793.9 ) mGycm TECHNIQUE: The patient was scanned in a multi-detector CT scanner. High resolution transaxial imaging was performed following intravenous administration of 100 ml of Isovue 300 contrast material. Sagittal and coronal images were reconstructed. Individualized dose optimization techniques were used for this CT. COMPARISON: None. FINDINGS: Normal bilateral parotid glands. Normal bilateral quarry boss spaces. Normal bilateral parapharyngeal spaces. Mild focal atherosclerotic calcific plaquing at the right carotid bulb without stenosis Normal bilateral sublingual and submandibular glands and spaces. Normal visualized nasopharynx. Normal retropharyngeal space. Normal perivertebral space. Normal visualized bilateral faucial tonsils. The visualized tongue, tongue base and oropharynx are normal. There are a few left-sided level IIA and upper level III cervical lymph nodes that are upper normal in size to borderline enlarged, most with fatty brandi, likely reactive. There is no demonstrated solid or cystic mass lesion. There is no abnormal contrast enhancement. Normal epiglottis, bilateral vallecula and hypopharynx. The pre-epiglottic and paraglottic adipose spaces are normal. Normal visualized bilateral piriform sinuses, aryepiglottic folds, vocal cords, and arytenoid-cricoid articulations. Normal subglottic trachea. Normal bilateral lobes of the thyroid gland. Normal visualized pulmonary apices. There is a MediPort in the left infraclavicular soft tissues, his catheter passing from the lower left internal jugular vein to the superior vena cava outside the [id number] There is mild mucoperiosteal thickening in the visualized bilateral maxillary sinuses. There is multilevel degenerative changes of the cervical spine, with endplate osteophyte formation most prominent at C4-5 and C5-6. CT/Soft Tissue Neck WITH Contrast IMPRESSION: 1. No findings suspicious for cervical metastatic disease. 2. Left chest wall MediPort noted. 3. Degenerative changes of the cervical spine, as prominent at C4-5 and C5-6. 4. Mild chronic maxillary sinusitis. Electronically Signed: Steve Schmitz MD at 16:57 EDT , Service support , CC: Jacinto Person MD; Clifford Barakat DO Family And Consumer Education Teacher: Signed BONE SCAN WHOLE Observed: 12/06/2017 Status: F Source: [place] BODY 8:43 AM [facility] [place] REPOSITORY [facility] Imaging Services [address] [place] [address] Bone Scan Whole Body MR#: [id number] Acct: [id number] Name: PEDRO LUIS WILCOX Rep #: [id number] : 1970 F 47 From: Clay Real DO PCP: Jacinto Person MD Status: REG CLI Study: Bone Scan Whole Body Date of Exam: 12/06/17 Exam# [id number] Ordering Dr: Clifford Barakat DO CLINICAL: 47-year-old female with history of carcinoma of the breast. WHOLE BODY 99m Tc MDP RADIONUCLIDE BONE SCINTIGRAPHY COMPARISON: Previous whole body bone scintigraphy study dated 10/07/2017 FINDINGS: Following the intravenous administration of 26.0 mCi of 99m Tc MDP, whole body bone images reveal: 1. Unchanged increased radiopharmaceutical concentration is noted in the right lower anterolateral chest wall-11th rib, the distal sternum. 2. An increase in tracer concentration is currently defined in the acromioclavicular and sternoclavicular compartments of both shoulders, the eighth-ninth thoracic vertebra, fourth lumbar vertebra, right and left knee articulations, the posterior compartment of the right ankle. 3. The remaining skeletal structures are scintigraphically unremarkable with normal-appearing renal images and urinary bladder activity identified. The subtle focus of prior defined right posterior chest wall increased uptake on the study dated 10/07/2017, is not apparent on the present examination. NM/Bone Scan Whole Body IMPRESSION: 1. The increased radiopharmaceutical concentration persistently visualized in the right anterolateral 11th rib and distal sternum may be further investigated with plain film radiography in the setting of known breast carcinoma if not previously obtained. 2. Facilitated uptake redemonstrated in the bilateral shoulders, lower thoracic and lumbar spine, knees bilaterally right ankle remain most consistent with degenerative arthritis. 3. Overall compared to the previous whole body bone scintigraphy study dated 10/07/2017, there is no significant interval change. Electronically Signed: Clay Real DO at 10:23 EDT Tel , Service support , CC: Jacinto Person MD; Clifford Barakat DO Family And Consumer Education Teacher: Signed CBC W/DIFF, AUTOMATED Collected: 11/28/2017 Status: F Source: [place] 9:23 AM [facility] [place] REPOSITORY TYPE CODE TESTS RESULT OUT OF RANGE REFERENCE UNITS LAB L100.1000 4.4-11.0 K/mm3 Low WBC 3.1 LAB L100.1200 4.2-5.4 M/mm3 Low RBC 3.26 LAB L100.1300 12.0-15.0 g/dl Low HGB 9.9 LAB L100.1400 37-47 % Low HCT 29.8 LAB L100.1500 81-99 fL Normal MCV 91.4 LAB L100.1600 27.0-32.0 pg Normal MCH 30.4 LAB L100.1700 32-36 g/gl Normal MCHC 33.2 LAB L100.1810 11.6-14.6 % Normal RDW CV 12.0 LAB L100.1820 35.1-43.9 fl Normal RDW SD 39.6 LAB L100.1900 150-450 K/mm3 Normal PLT 359 LAB L100.2000 6.2-12.0 fl Normal MPV 8.4 LAB L100.2100 47-70 % Low NEUT% 42.1 LAB L100.2200 19-41 % High LY% 52.1 LAB L100.2300 0-10 % Normal MONO% 5.5 LAB L100.2400 0-5 % Normal EO% 0.3 LAB L100.2500 0-1 % Normal BASO% 0.0 LAB L100.2550 0.0-0.9 % Normal IM GRAN % 0.000 Result Comment: IG% - Immature Granulocytes (promyelocytes, myelocytes and metamyelocytes) > 1% indicates that a LEFT SHIFT is Present. LAB L100.2620 2.0-7.7 X10 3/uL Low Absolute Neut 1.3 LAB L100.2720 0.83-4.51 X10 3/ul Normal Absolute Lymph 1.60 Performed By: #### L100.0100 #### [facility] [address] [place], [address] BASIC METABOLIC Collected: 11/28/2017 Status: F Source: [place] PROFILE ([facility] [place] 9:23 AM [facility] [place] REPOSITORY TYPE CODE TESTS RESULT OUT OF RANGE REFERENCE UNITS LAB L501.0100 74-106 mg/dL High GLU 420 Result Comment: Glucose result greater than or equal to 200 mg/dL suggests DIABETES MELLITUS per A.D.A. criteria. Please note revised GLUCOSE reference range effective 2017. LAB L501.1000 7-18 mg/dL High BUN 19 LAB L501.1100 0.55-1.02 mg/dL Normal CREAT,SERUM 0.78 Result Comment: The validity of the calculated GFR AND GFRAA in patients over 70 years has not been determined. Clinical correlation is essential. LAB L501.1110 >60 mL/min Normal EST GFR 83 Result Comment: Non- GFR Calc LAB L501.1115 >60 mL/min Normal EST GFR - AA 101 Result Comment: GFR Calc LAB L501.1300 10-20 RATIO High BUN/CRE 24.2 LAB L501.2200 8.5-10.1 mg/dL CA Normal 10.1 LAB L501.5300 136-145 mmol/L NA Normal 138 LAB L501.5600 3.5-5.1 mmol/L K Normal 4.2 LAB L501.5900 98-107 mmol/L Low CL 97 LAB L501.6100 21.0-32.0 mmol/L Normal CO2 31.0 LAB L501.6200 5-15 Normal GAP 10 Performed By: #### L500.2500, L500.3400 #### [facility] [address], [place], [id number] LIVER PROFILE Collected: 11/28/2017 Status: F Source: [place] 9:23 AM [facility] [place] REPOSITORY TYPE CODE TESTS RESULT OUT OF RANGE REFERENCE UNITS LAB L501.1500 6.4-8.2 g/dL High T PROT 8.7 LAB L501.1800 3.2-5.0 g/dL Low ALB 3.1 LAB L501.1950 2.2-4.2 g/dL High GLOB 5.6 LAB L501.4100 15-37 U/L Normal AST 16 LAB L501.4305 45-117 U/L Normal ALK P 105 LAB L501.4405 13-56 U/L Normal ALT 30 LAB L501.4600 0.20-1.00 mg/dL Low T BILI 0.10 LAB L501.4700 0.00-0.30 mg/dL Normal D BILI 0.06 Performed By: #### L500.2500, L500.3400 #### [facility] [address] [place], [place], [id number] CBC W/DIFF, AUTOMATED Collected: 11/22/2017 Status: F Source: [place] 6:37 AM [facility] [place] REPOSITORY TYPE CODE TESTS RESULT OUT OF RANGE REFERENCE UNITS LAB L100.1000 4.4-11.0 K/mm3 Low WBC 2.9 LAB L100.1200 4.2-5.4 M/mm3 Low RBC 2.71 LAB L100.1300 12.0-15.0 g/dl Low HGB 8.6 LAB L100.1400 37-47 % Low HCT 25.7 LAB L100.1500 81-99 fL Normal MCV 94.8 LAB L100.1600 27.0-32.0 pg Normal MCH 31.7 LAB L100.1700 32-36 g/gl Normal MCHC 33.5 LAB L100.1810 11.6-14.6 % Low RDW CV 11.3 LAB L100.1820 35.1-43.9 fl Normal RDW SD 37.6 LAB L100.1900 150-450 K/mm3 Normal PLT 365 LAB L100.2000 6.2-12.0 fl Normal MPV 9.3 LAB L100.2100 47-70 % Normal NEUT% 54.0 LAB L100.2200 19-41 % Normal LY% 27.0 LAB L100.2300 0-10 % High MONO% 16.3 LAB L100.2400 0-5 % Normal EO% 2.1 LAB L100.2500 0-1 % Normal BASO% 0.3 LAB L100.2550 0.0-0.9 % Normal IM GRAN % 0.300 Result Comment: IG% - Immature Granulocytes (promyelocytes, myelocytes and metamyelocytes) > 1% indicates that a LEFT SHIFT is Present. LAB L100.2620 2.0-7.7 X10 3/uL Low Absolute Neut 1.6 LAB L100.2720 0.83-4.51 X10 3/ul Low Absolute Lymph 0.78 Performed By: #### L100.0100 #### [facility] [address] [place], [address] BASIC METABOLIC Collected: 11/22/2017 Status: F Source: [place] PROFILE ([place]) 6:37 AM [facility] [place] REPOSITORY TYPE CODE TESTS RESULT OUT OF RANGE REFERENCE UNITS LAB L501.0100 74-106 mg/dL High GLU 266 Result Comment: Glucose result greater than or equal to 200 mg/dL suggests DIABETES MELLITUS per A.D.A. criteria. Please note revised GLUCOSE reference range effective 2017. LAB L501.1000 7-18 mg/dL Normal BUN 18 LAB L501.1100 0.55-1.02 mg/dL Normal CREAT,SERUM 0.63 Result Comment: The validity of the calculated GFR AND GFRAA in patients over 70 years has not been determined. Clinical correlation is essential. LAB L501.1110 >60 mL/min Normal EST GFR 107 Result Comment: Non- GFR Calc LAB L501.1115 >60 mL/min Normal EST GFR - AA 129 Result Comment: GFR Calc LAB L501.1300 10-20 RATIO High BUN/CRE 28.5 LAB L501.2200 8.5-10.1 mg/dL CA Normal 8.6 LAB L501.5300 136-145 mmol/L NA Normal 138 LAB L501.5600 3.5-5.1 mmol/L K Normal 3.6 LAB L501.5900 98-107 mmol/L CL Normal 99 LAB L501.6100 21.0-32.0 mmol/L Normal CO2 32.0 LAB L501.6200 5-15 Normal GAP 7 Performed By: #### L500.2500, L500.3400 #### [facility] [address] [place], [address] LIVER PROFILE Collected: 11/22/2017 Status: F Source: [place] 6:37 AM [facility] [place] REPOSITORY TYPE CODE TESTS RESULT OUT OF RANGE REFERENCE UNITS LAB L501.1500 6.4-8.2 g/dL Normal T PROT 7.3 LAB L501.1800 3.2-5.0 g/dL Low ALB 2.3 LAB L501.1950 2.2-4.2 g/dL High GLOB 5.0 LAB L501.4100 15-37 U/L Normal AST 17 LAB L501.4305 45-117 U/L Normal ALK P 86 LAB L501.4405 13-56 U/L Normal ALT 27 LAB L501.4600 0.20-1.00 mg/dL Normal T BILI 0.20 LAB L501.4700 0.00-0.30 mg/dL Normal D BILI 0.07 Performed By: #### L500.2500, L500.3400 #### [facility] [place], [address] PROGRESS Observed: 11/21/2017 Status: COMPLETED Source: [place] 10:01 AM [facility] REPOSITORY HNO ID: [id number] Author: Clifford Barakat Service: (none) Author Type: Physician Type: Progress Notes Filed: 11/21/2017 10:24 AM Note Text: Diagnosis: 1) Breast cancer. 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 Her mother has a h/o breast cancer, so patient had been undergoing annual mammogram. The patient underwent a screening mammogram on 08/30/2013. A 1.6 cm nodular density was appreciated in the tail of the right breast. She underwent targeted ultrasound the same day. That study revealed a 9 mm hypoechoic solid nodule at the 10:00 position of the breast measuring 6 cm from the nipple. Stereotactic core needle biopsy on 09/13/2013. The tissue revealed invasive poorly differentiated ductal carcinoma. The specimen was negative for both estrogen and progesterone receptors. Both were quantified at 0%. HER-2 was 2+ an immunostain and nonamplified by FISH testing. The patient underwent an MRI of the breast on 09/20/2013. The study revealed that the left breast had no suspicious findings. In the right breast there was a 1.6 cm abnormal enhancing mass in the superior outer aspect of the right breast approximately 10 cm from the nipple. This correlated to the biopsy area. Underwent partial mastectomy with SLN biopsy 10/05/2013. The final pathology revealed an invasive poorly differentiated ductal carcinoma measuring 1.3 cm in size. There was a single focus. DCIS was present measuring 2 mm in maximum dimension. The grade of the cancer was 3. Margins were negative. The closest was 6 mm. Lymphovascular invasion was not identified. One sentinel lymph node was retrieved. It was negative. Received two cycles of TC. Admitted for severe PAGE. Admitted 12/17/2013 due to increase in thigh pain and dyspnea. Markedly elevated CK. No increase in serum Cr. Chemotherapy stopped after cycle #2. Was seen by ornamental plasterer helper at . 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 Completed radiation 03/26/2014. She started developing intermittent shortness of breath with exertion. She also has a cough that is a dry cough. She was taken off her PAM inhibitor but the cough has not changed. She had a PA and lateral chest film done on 10/22/2016 that demonstrated no abnormality. She then underwent a CT scan the chest without IV contrast on 11/06/2016. Two nodules were observed in the pulmonary parenchyma. One was located in the right lower lobe and the second was located in the lingular lobe. Each measured 8 mm and were thought to be consistent with metastatic disease. CT of the abdomen and pelvis on 11/20/2016 as well as repeat CT chest with IV contrast demonstrated a thick walled gallbladder suspicious for cystitis, chronic and redemonstration of the lung nodules. No concern for metastatic disease in the abdomen or pelvis. Brain MRI on 11/23/2016 was normal. PET scan demonstrated multiple foci of increased glucose concentration manifested in the right axilla, significant region generating a standard uptake value of 7.6. The maximal axial diameter the largest individual hypermetabolic soft tissue density on review of the CT of the thorax was approximately 23.1 mm in transverse dimension. An ultrasound of the right axilla and subclavicular region on 12/02/2016 demonstrated that within the right axilla there was a cluster of abnormal appearing hypoechoic nodules. The largest measured 2.3 x 1.50 1.4 cm. In the subclavicular region there was also evidence of several hypoechoic nodules the largest measuring 2.75 x 2.85 1.5 cm. She then underwent a right axillary core needle biopsy on 12/07/2016. The pathology demonstrated a poorly differentiated metastatic carcinoma. The specimen was negative for both ER and KS as well as HER- 2. I discussed the case with the pathologist today who told me that histologically/morphologically the specimen was consistent with her previous specimen of breast cancer. The pathologist will issue an addendum quantifying ER and KS 0 as well as HER-2 at 0. She had a stress test and echocardiogram about 3 years ago and had no evidence of coronary artery disease. She had LV concentric hypertrophy with preserved ejection fraction. She underwent port placement along with right axillary lymph node dissection on 12/24/2016. MICROSCOPIC DIAGNOSIS Right axillary lymph nodes, regional lymph adenectomy: One out of seven lymph nodes with metastatic poorly differentiated carcinoma. See comment. COMMENT Immunohistochemistry ([id number]) does not rule out a breast primary. There is focal perinodal extension of tumor. Clinical correlation is suggested. ANTIBODY / CLONE RESULT Block 1 Mammaglobin (31A5) negative GATA3 (L50-823) positive, rare, dim CK8 (14kjfuN33) positive Ki-67 (30-9) positive, moderate to high ER (6F11) negative 0% KS (1E2) negative 0% CK19 (A53-B/A2.26) positive Cyclin D1/BCL-1 (SP4) positive CEA (11-7/TF-3HB-1) negative SHELLI (E29) positive CK20 (KS20.8) negative Villin (CWWB1) negative RCC (PN-15) negative CA125 (OC125) positive Previous therapy for metastatic disease: 1) Cisplatin (+/- PARP inhibitor on trial). She underwent a CT scan of the neck, chest abdomen and pelvis at [facility] on 10/05/2017. The CT of the neck revealed an abnormal enhancing right subclavicular lymph node measuring 2.6 x 2.0 x 2.2 cm. There were no other significant abnormalities. CT of the chest corroborated the CT neck findings with a 2.6 x 1.5 mm lymph node in the right supraclavicular region. The abdominopelvic images revealed no evidence of metastatic disease. Bone scan done 10/07/2017 showed some increase in radiopharmaceutical concentration in the distal sternum and in the right posterior and anterior lateral ribs potentially representing limited skeletal metastatic disease. Came off trial. She was seen at [facility] and did not qualify for the 2 clinical trials available due to her pre-existing diabetic neuropathy and history of type 1 diabetes. Current therapy: 1) Houck/carbo. Interim history: She tolerated her first cycle of gemcitabine and carboplatin very well with no noticeable side effect. In fact she was rather surprised by that and inquired as to whether or not chemotherapy would work if she wasn't getting sick with side effects. I assured her that there is no correlation between side effects with this treatment and potential efficacy. She was seen in the ER last week on the first for fever. She had some chills. Neutrophil count was 4000. She was discharged. She was seen in the office last week for continued low grade to mid grade fevers up to 102. She was started on Levaquin empirically. This weekend, the central area in her house stopped working and last night she had a fever to 103. She contacted me. She wasn't having any shaking chills or feeling poorly otherwise. She'll in your she had the fever because she took her temperature at that point. Her appetite is been down the last few days but she attributes that to the heat in the house. She has no urinary tract symptoms. No cough or sputum production. No rash. No worsening of neuropathy. She has some pain bilaterally over the greater trochanters. This is chronic pain and she attributes this to being inactive this weekend. PMH, medications and allergies as below personally reviewed by me today. Any changes documented in appropriate section. ROS: Constitutional: Denies episodes of fever and night sweats. Neuro: Denies DOZIER, vertigo, dizziness and imbalance. HEENT: No recent change in voice, vision or hearing. Resp: See above. CVS: Denies exertional chest pain, PND, orthopnea and LE edema. GI: Denies dysgeusia. Denies symptoms of stomatitis. Denies dysphagia and odynophagia. Denies reflux, change in bowel habits and abdominal pain. : Denies dysuria or gross hematuria. No symptoms of bladder outlet obstruction. Endo: Denies hot flashes. Denies polyuria and polydipsia. Denies heat and cold intolerance. Musculoskeletal: See above. Derm: Denies rash. Denies jaundice and diffuse pruritis. Heme: Denies unusual bleeding and unexplained bruising. Psych: Normal mood. PHYSICAL EXAM: Vitals: Blood pressure 120/57, pulse 104, temperature 38.2 ?C (100.7 ?F), temperature source Oral, weight 89.6 kg (197 lb 8 oz). Well-appearing and in no acute distress. EYES: Sclerae are anicteric bilaterally. ENT: Oral mucosa is unremarkable. There is no sign of thrush or mucositis. NECK: Supple. LYMPHATIC: The firmly enlarged mobile right supraclavicular lymph node measuring approximately 2 cm close to the base of the neck is stable. No other peripheral adenopathy. Specifically no other supraclavicular, cervical, axillary or inguinal adenopathy. RESPIRATORY: Inspiratory breath sounds are of normal intensity in all norris. No rales, wheezes or rhonchi. CARDIOVASCULAR: Rhythm is regular. Normal intensity S1/S2. There is no gallop or murmur. ABDOMEN: The abdomen is nondistended. No organomegaly. No tenderness. Extremities: No swelling or edema. SKIN: No jaundice or rash. No petechiae. NEUROLOGIC: station attendant II-XII are grossly intact. No focal motor weakness. MUSCULOSKELETAL: No muscle wasting. 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 Comprehensive BRCA 1 and 2 testing (scanned 12/05/2013) no mutation Complicated by severe myositis during adjuvant chemotherapy. -KPS is 90%. -Biopsy-proven local regional recurrence. -Sensory neuropathy stable to slightly worse in the fingertips. -Tolerating chemotherapy very well. She's had fevers last several days of unexplained origin. Low suspicion for sepsis but appears fevers have been resolving with antibiotic. Also unusual that she has fever and doesn't have any symptomatic feelings of it whatsoever. She'll be given a new thermometer here in the office. Blood cultures drawn on 11/16 remained negative after 48 hours. Plan: -Okay to proceed with cycle 2 of treatment. -Complete 7 days worth of Levaquin altogether. -CT scan following 2 cycles. Clifford Barakat DO CNOVSP Observed: 11/21/2017 Status: COMPLETED Source: [place] 9:30 AM [facility] REPOSITORY Visit (SP) Office (DANYEL) PEDRO LUIS WILCOX ([id number]) 1970 F Date Time Provider Department 11/21/17 9:30 AM CLIFFORD BARAKAT During your visit today, we recorded the following information about you: Temperature Pulse Blood pressure Weight 100.7 degrees 104/minute 120/57 89.6 kg Orlando Lanier TIFFANIE Langston, TIFFANIE 11/21/2017 10:05 AM Signed Temp 100.7 orally, states she ran elevated temp since last Tuesday. Seen Tuesday, placed on Levaquin Pt. Is taking in fluids and food. TIFFANIE Mann DO 11/21/2017 10:24 AM Signed Diagnosis: 1) Breast cancer. 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 Her mother has a h/o breast cancer, so patient had been undergoing annual mammogram. The patient underwent a screening mammogram on 08/30/2013. A 1.6 cm nodular density was appreciated in the tail of the right breast. She underwent targeted ultrasound the same day. That study revealed a 9 mm hypoechoic solid nodule at the 10:00 position of the breast measuring 6 cm from the nipple. Stereotactic core needle biopsy on 09/13/2013. The tissue revealed invasive poorly differentiated ductal carcinoma. The specimen was negative for both estrogen and progesterone receptors. Both were quantified at 0%. HER-2 was 2+ an immunostain and nonamplified by FISH testing. The patient underwent an MRI of the breast on 09/20/2013. The study revealed that the left breast had no suspicious findings. In the right breast there was a 1.6 cm abnormal enhancing mass in the superior outer aspect of the right breast approximately 10 cm from the nipple. This correlated to the biopsy area. Underwent partial mastectomy with SLN biopsy 10/05/2013. The final pathology revealed an invasive poorly differentiated ductal carcinoma measuring 1.3 cm in size. There was a single focus. DCIS was present measuring 2 mm in maximum dimension. The grade of the cancer was 3. Margins were negative. The closest was 6 mm. Lymphovascular invasion was not identified. One sentinel lymph node was retrieved. It was negative. Received two cycles of TC. Admitted for severe PAGE. Admitted 12/17/2013 due to increase in thigh pain and dyspnea. Markedly elevated CK. No increase in serum Cr. Chemotherapy stopped after cycle #2. Was seen by ornamental plasterer helper at . 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 Completed radiation 03/26/2014. She started developing intermittent shortness of breath with exertion. She also has a cough that is a dry cough. She was taken off her PAM inhibitor but the cough has not changed. She had a PA and lateral chest film done on 10/22/2016 that demonstrated no abnormality. She then underwent a CT scan the chest without IV contrast on 11/06/2016. Two nodules were observed in the pulmonary parenchyma. One was located in the right lower lobe and the second was located in the lingular lobe. Each measured 8 mm and were thought to be consistent with metastatic disease. CT of the abdomen and pelvis on 11/20/2016 as well as repeat CT chest with IV contrast demonstrated a thick walled gallbladder suspicious for cystitis, chronic and redemonstration of the lung nodules. No concern for metastatic disease in the abdomen or pelvis. Brain MRI on 11/23/2016 was normal. PET scan demonstrated multiple foci of increased glucose concentration manifested in the right axilla, significant region generating a standard uptake value of 7.6. The maximal axial diameter the largest individual hypermetabolic soft tissue density on review of the CT of the thorax was approximately 23.1 mm in transverse dimension. An ultrasound of the right axilla and subclavicular region on 12/02/2016 demonstrated that within the right axilla there was a cluster of abnormal appearing hypoechoic nodules. The largest measured 2.3 x 1.50 1.4 cm. In the subclavicular region there was also evidence of several hypoechoic nodules the largest measuring 2.75 x 2.85 1.5 cm. She then underwent a right axillary core needle biopsy on 12/07/2016. The pathology demonstrated a poorly differentiated metastatic carcinoma. The specimen was negative for both ER and KS as well as HER-2. I discussed the case with the pathologist today who told me that histologically/morphologically the specimen was consistent with her previous specimen of breast cancer. The pathologist will issue an addendum quantifying ER and KS 0 as well as HER-2 at 0. She had a stress test and echocardiogram about 3 years ago and had no evidence of coronary artery disease. She had LV concentric hypertrophy with preserved ejection fraction. She underwent port placement along with right axillary lymph node dissection on 12/24/2016. MICROSCOPIC DIAGNOSIS Right axillary lymph nodes, regional lymph adenectomy: One out of seven lymph nodes with metastatic poorly differentiated carcinoma. See comment. COMMENT Immunohistochemistry ([id number]) does not rule out a breast primary. There is focal perinodal extension of tumor. Clinical correlation is suggested. ANTIBODY / CLONE RESULT Block 1 Mammaglobin (31A5) negative GATA3 (L50-823) positive, rare, dim CK8 (73bfugH10) positive Ki-67 (30-9) positive, moderate to high ER (6F11) negative 0% KS (1E2) negative 0% CK19 (A53-B/A2.26) positive Cyclin D1/BCL-1 (SP4) positive CEA (11-7/TF-3HB-1) negative SHELLI (E29) positive CK20 (KS20.8) negative Villin (CWWB1) negative RCC (PN-15) negative CA125 (OC125) positive Previous therapy for metastatic disease: 1) Cisplatin (+/- PARP inhibitor on trial). She underwent a CT scan of the neck, chest abdomen and pelvis at [facility] on 10/05/2017. The CT of the neck revealed an abnormal enhancing right subclavicular lymph node measuring 2.6 x 2.0 x 2.2 cm. There were no other significant abnormalities. CT of the chest corroborated the CT neck findings with a 2.6 x 1.5 mm lymph node in the right supraclavicular region. The abdominopelvic images revealed no evidence of metastatic disease. Bone scan done 10/07/2017 showed some increase in radiopharmaceutical concentration in the distal sternum and in the right posterior and anterior lateral ribs potentially representing limited skeletal metastatic disease. Came off trial. She was seen at [facility] and did not qualify for the 2 clinical trials available due to her pre-existing diabetic neuropathy and history of type 1 diabetes. Current therapy: 1) Houck/carbo. Interim history: She tolerated her first cycle of gemcitabine and carboplatin very well with no noticeable side effect. In fact she was rather surprised by that and inquired as to whether or not chemotherapy would work if she wasn't getting sick with side effects. I assured her that there is no correlation between side effects with this treatment and potential efficacy. She was seen in the ER last week on the first for fever. She had some chills. Neutrophil count was 4000. She was discharged. She was seen in the office last week for continued low grade to mid grade fevers up to 102. She was started on Levaquin empirically. This weekend, the central area in her house stopped working and last night she had a fever to 103. She contacted me. She wasn't having any shaking chills or feeling poorly otherwise. She'll in your she had the fever because she took her temperature at that point. Her appetite is been down the last few days but she attributes that to the heat in the house. She has no urinary tract symptoms. No cough or sputum production. No rash. No worsening of neuropathy. She has some pain bilaterally over the greater trochanters. This is chronic pain and she attributes this to being inactive this weekend. PMH, medications and allergies as below personally reviewed by me today. Any changes documented in appropriate section. ROS: Constitutional: Denies episodes of fever and night sweats. Neuro: Denies DOZIER, vertigo, dizziness and imbalance. HEENT: No recent change in voice, vision or hearing. Resp: See above. CVS: Denies exertional chest pain, PND, orthopnea and LE edema. GI: Denies dysgeusia. Denies symptoms of stomatitis. Denies dysphagia and odynophagia. Denies reflux, change in bowel habits and abdominal pain. : Denies dysuria or gross hematuria. No symptoms of bladder outlet obstruction. Endo: Denies hot flashes. Denies polyuria and polydipsia. Denies heat and cold intolerance. Musculoskeletal: See above. Derm: Denies rash. Denies jaundice and diffuse pruritis. Heme: Denies unusual bleeding and unexplained bruising. Psych: Normal mood. PHYSICAL EXAM: Vitals: Blood pressure 120/57, pulse 104, temperature 38.2 ?C (100.7 ?F), temperature source Oral, weight 89.6 kg (197 lb 8 oz). Well-appearing and in no acute distress. EYES: Sclerae are anicteric bilaterally. ENT: Oral mucosa is unremarkable. There is no sign of thrush or mucositis. NECK: Supple. LYMPHATIC: The firmly enlarged mobile right supraclavicular lymph node measuring approximately 2 cm close to the base of the neck is stable. No other peripheral adenopathy. Specifically no other supraclavicular, cervical, axillary or inguinal adenopathy. RESPIRATORY: Inspiratory breath sounds are of normal intensity in all norris. No rales, wheezes or rhonchi. CARDIOVASCULAR: Rhythm is regular. Normal intensity S1/S2. There is no gallop or murmur. ABDOMEN: The abdomen is nondistended. No organomegaly. No tenderness. Extremities: No swelling or edema. SKIN: No jaundice or rash. No petechiae. NEUROLOGIC: station attendant II-XII are grossly intact. No focal motor weakness. MUSCULOSKELETAL: No muscle wasting. 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 Comprehensive BRCA 1 and 2 testing (scanned 12/05/2013) no mutation Complicated by severe myositis during adjuvant chemotherapy. -KPS is 90%. -Biopsy-proven local regional recurrence. -Sensory neuropathy stable to slightly worse in the fingertips. -Tolerating chemotherapy very well. She's had fevers last several days of unexplained origin. Low suspicion for sepsis but appears fevers have been resolving with antibiotic. Also unusual that she has fever and doesn't have any symptomatic feelings of it whatsoever. She'll be given a new thermometer here in the office. Blood cultures drawn on 11/16 remained negative after 48 hours. Plan: -Okay to proceed with cycle 2 of treatment. -Complete 7 days worth of Levaquin altogether. -CT scan following 2 cycles. DO Clifford Banda DO 11/21/2017 10:25 AM Signed Addended by: CLIFFORD BARAKAT DO on: 11/21/2017 10:25 AM Modules accepted: Orders Referring Provider: CLIFFORD BARAKAT [[id number]] Allergies As of Date: 11/21/2017 (No Known Allergies) Date Reviewed: 11/21/2017 Reviewed by: Orlando Lanier (Associate Broker) TIFFANIE Langston - Fully Assessed Reason for Visit: Established Patient [[id number]] Primary Visit Diagnosis:Malignant neoplasm of upper-outer quadrant of right breast in female, estrogen receptor negative (HCC) [C50.411, Z17.1] Other Visit Diagnosis:Malignant neoplasm metastatic to left lung (HCC) [C78.02] Order(s):levoFLOXacin (LEVAQUIN) 500 mg tabletTake 1 tablet by mouth once daily for 2 days.Disp: 2 tabletRfl: 0 CT ABD/PEL W IVCON [[id number]] Order #: [id number] FUTURE CT CHEST W IVCON [[id number]] Order #: [id number] FUTURE iv contrast (will be provided with radiology test)CT Chest ABD/PEL-Inject, intravenously, once for 1 dose.No IV access, insert saline lock prior to the beginning of sedation, infusion, injection of imaging exam. Discontinue saline lock post exam. If Pt. has a central line or IVAD, may access for administration according to line specific nursing protocol. Once exam is complete flush line and de-access according to line specific nursing protocol in the CT contrast administration guidelines link.Disp: 1 EachRfl: 0 enteric contrast (will be provided with radiology test)For CT CHESTABD/PEL W IVCON Routine order Administer, As Directed One Time Only, via Oral, Rectal, both Oral and Rectal, Enteric Tube, Stoma or Indwelling Catheter, Enteric Contrast as designated per enteric contrast guidelinesDisp: 1 EachRfl: 0 NM BONE WHOLE BODY [[id number]] Order #: [id number] FUTURE Follow-up and Disposition History Recorded Prescriptions as of 11/21/2017 Sig: LEVOFLOXACIN 500 MG TABLET Take 1 tablet by mouth once d* HYDROCODONE 5 MG-ACETAMINOPHE* Take 1 tablet by mouth twice * METOCLOPRAMIDE 10 MG TABLET Take 1 tablet by mouth every * TIMOLOL 0.5 % EYE DROPS Use 1 Drop in both eyes once * DICYCLOMINE 20 MG TABLET Take 20 mg by mouth every 8 h* LORAZEPAM 1 MG TABLET Take 1 tablet by mouth every * LIDOCAINE-PRILOCAINE 2.5 %-2.* Apply 1 application to affect* CITALOPRAM 20 MG TABLET Take 1 tablet by mouth once d* CLONAZEPAM 0.5 MG TABLET 1 tablet twice daily. PRN NITROFURANTOIN MONOHYDRATE AND * Take 100 mg by mouth twice da* EMPAGLIFLOZIN 10 MG TABLET Take 10 mg by mouth once gamaliel* VITAMIN B COMPLEX CAPSULE Take 1 capsule by mouth twice* CREON ORAL Take 6,000 Units by mouth. Wi* VALACYCLOVIR 500 MG TABLET Take 500 mg by mouth as neede* ERGOCALCIFEROL (VITAMIN D2) 5* Take 50,000 Units by mouth on* * INSULIN GLARGINE (U-100) 100 * Take 50 in am and 70 units in* * HUMALOG KWIKPEN (U-100) INSUL* 15 in am, 15 noon, 20 in philip IV CONTRAST (RADIOLOGY PROCED* CT Chest ABD/PEL-Inject, intr* ENTERIC CONTRAST (RADIOLOGY P* For CT CHESTABD/PEL W IVCON R* GABAPENTIN 300 MG CAPSULE Take 1 capsule by mouth three* Problem List As Of Date 11/21/2017 Noted Resolved THYROID NODULE [E04.1] INVALID FOR* More... Anxiety State, Unspecified [F41.1] 01/22/2009 Depressive Disorder, not Elsewhere Classified [* Priority: Moderate More... DM w/o complication type II, uncontrolled [E11.*INVALID FOR* Priority: Severe More... Other Malaise and Fatigue [R53.81, R53.83] INVALID FOR*01/22/2009 More... HYPERLIPIDEMIA NEC/NOS [E78.5] INVALID FOR* FIBROMYALGIA [WAE4156] INVALID FOR* Priority: Moderate OVERWEIGHT [E66.9] INVALID FOR* OTHER HAMMER TOE [M20.40] INVALID FOR* More... URIN TRACT INFECTION RECURRENT [N39.0] INVALID FOR*01/21/2016 More... GENITAL HERPES NOS [A60.00] INVALID FOR* Tobacco Use Disorder [F17.200] INVALID FOR* Priority: Moderate More... CONGENITAL PES PLANUS [Q66.50] INVALID FOR* Displacement of Lumbar Intervertebral Disc with*INVALID FOR* Priority: Moderate More... More... Routine Gynecological Examination [Z01.419] INVALID FOR* Class: Chronic More... 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*INVALID FOR* Malignant neoplasm metastatic to left lung (HCC*INVALID FOR* Examination of participant in clinical trial [Z*INVALID FOR* Visit Notes: >> Orlando Langston LPN TueNov 21, 2017 9:20 AM Status: Signed Temp 100.7 orally, states she ran elevated temp since last Tuesday. Seen Tuesday, placed on Levaquin Pt. Is taking in fluids and food. Orlando Langston LPN Encounter Status:Closed by CLIFFORD BARAKAT DO on 11/21/17 CNOVSP Observed: 11/18/2017 Status: COMPLETED Source: [place] 1:00 PM [facility] REPOSITORY Visit (SP) Office ([place]) PEDRO LUIS WILCOX ([id number]) 1970 F Date Time Provider Department 11/18/17 1:00 PM ASIA REYES (OSEI) DANYEL During your visit today, we recorded the following information about you: Temperature Pulse Blood pressure Weight 99.4 degrees 102/minute 128/65 89.1 kg Federica Leyla MORENO 11/18/2017 11:57 AM Signed Est patient. C/O fever and chills that started Tuesday. Denies nausea and vomiting. Appetite poor, able to tolerate po fluids.Temp at 10:00 am was 101.7, took 1000 mg Tylenol then. Temp is now 99.4 F. Federica Leyla Reyes, JEYSON.HEALTH CARE LIAISON 11/21/2017 8:51 AM Signed Chief Complaint Patient presents with: Established Patient HPI: Pedro Luis Wilcox is a 47 year old female who presents here today for complaints of fevers that began wed. evening. Pt. left work early and went to [facility] ED late Wed. night. Per Dr. Barakat's previous note: H/o type 1 DM (diagnosed about 27 years ago; has sensory neuropathy to mid lower leg b/l; no other complications). ? Her mother has a h/o breast cancer, so patient had been undergoing annual mammogram. ? The patient underwent a screening mammogram on 08/30/2013. A 1.6 cm nodular density was appreciated in the tail of the right breast. She underwent targeted ultrasound the same day. That study revealed a 9 mm hypoechoic solid nodule at the 10:00 position of the breast measuring 6 cm from the nipple. ? Stereotactic core needle biopsy on 09/13/2013. The tissue revealed invasive poorly differentiated ductal carcinoma. The specimen was negative for both estrogen and progesterone receptors. Both were quantified at 0%. HER-2 was 2+ an immunostain and nonamplified by FISH testing. ? The patient underwent an MRI of the breast on 09/20/2013. The study revealed that the left breast had no suspicious findings. In the right breast there was a 1.6 cm abnormal enhancing mass in the superior outer aspect of the right breast approximately 10 cm from the nipple. This correlated to the biopsy area. ? Underwent partial mastectomy with SLN biopsy 10/05/2013. The final pathology revealed an invasive poorly differentiated ductal carcinoma measuring 1.3 cm in size. There was a single focus. DCIS was present measuring 2 mm in maximum dimension. The grade of the cancer was 3. Margins were negative. The closest was 6 mm. Lymphovascular invasion was not identified. One sentinel lymph node was retrieved. It was negative. ? Received two cycles of TC. ? Admitted for severe PAGE. ? Admitted 12/17/2013 due to increase in thigh pain and dyspnea. Markedly elevated CK. No increase in serum Cr. ? Chemotherapy stopped after cycle #2. ? Was seen by ornamental plasterer helper at . 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 ? Completed radiation 03/26/2014. ? ? ? She started developing intermittent shortness of breath with exertion. She also has a cough that is a dry cough. She was taken off her PAM inhibitor but the cough has not changed. She had a PA and lateral chest film done on 10/22/2016 that demonstrated no abnormality. She then underwent a CT scan the chest without IV contrast on 11/06/2016. Two nodules were observed in the pulmonary parenchyma. One was located in the right lower lobe and the second was located in the lingular lobe. Each measured 8 mm and were thought to be consistent with metastatic disease. CT of the abdomen and pelvis on 11/20/2016 as well as repeat CT chest with IV contrast demonstrated a thick walled gallbladder suspicious for cystitis, chronic and redemonstration of the lung nodules. No concern for metastatic disease in the abdomen or pelvis. Brain MRI on 11/23/2016 was normal. PET scan demonstrated multiple foci of increased glucose concentration manifested in the right axilla, significant region generating a standard uptake value of 7.6. The maximal axial diameter the largest individual hypermetabolic soft tissue density on review of the CT of the thorax was approximately 23.1 mm in transverse dimension. ? An ultrasound of the right axilla and subclavicular region on 12/02/2016 demonstrated that within the right axilla there was a cluster of abnormal appearing hypoechoic nodules. The largest measured 2.3 x 1.50 1.4 cm. In the subclavicular region there was also evidence of several hypoechoic nodules the largest measuring 2.75 x 2.85 1.5 cm. ? She then underwent a right axillary core needle biopsy on 12/07/2016. ? The pathology demonstrated a poorly differentiated metastatic carcinoma. The specimen was negative for both ER and KS as well as HER-2. I discussed the case with the pathologist today who told me that histologically/morphologically the specimen was consistent with her previous specimen of breast cancer. The pathologist will issue an addendum quantifying ER and KS 0 as well as HER-2 at 0. ? She had a stress test and echocardiogram about 3 years ago and had no evidence of coronary artery disease. She had LV concentric hypertrophy with preserved ejection fraction. ? She underwent port placement along with right axillary lymph node dissection on 12/24/2016. ? MICROSCOPIC DIAGNOSIS Right axillary lymph nodes, regional lymph adenectomy: One out of seven lymph nodes with metastatic poorly differentiated carcinoma. See comment. COMMENT Immunohistochemistry ([id number]) does not rule out a breast primary. There is focal perinodal extension of tumor. Clinical correlation is suggested. ? ANTIBODY / CLONE RESULT Block 1 Mammaglobin (31A5) negative GATA3 (L50-823) positive, rare, dim CK8 (19hssqI81) positive Ki-67 (30-9) positive, moderate to high ER (6F11) negative 0% KS (1E2) negative 0% CK19 (A53-B/A2.26) positive Cyclin D1/BCL-1 (SP4) positive CEA (11-7/TF-3HB-1) negative SHELLI (E29) positive CK20 (KS20.8) negative Villin (CWWB1) negative RCC (PN-15) negative CA125 (OC125) positive ? Previous therapy for metastatic disease: 1) Cisplatin (+/- PARP inhibitor on trial). ? She underwent a CT scan of the neck, chest abdomen and pelvis at [facility] on 10/05/2017. The CT of the neck revealed an abnormal enhancing right subclavicular lymph node measuring 2.6 x 2.0 x 2.2 cm. There were no other significant abnormalities. CT of the chest corroborated the CT neck findings with a 2.6 x 1.5 mm lymph node in the right supraclavicular region. The abdominopelvic images revealed no evidence of metastatic disease. Bone scan done 10/07/2017 showed some increase in radiopharmaceutical concentration in the distal sternum and in the right posterior and anterior lateral ribs potentially representing limited skeletal metastatic disease. Came off trial. ? She was seen at [facility] and did not qualify for the 2 clinical trials available due to her pre-existing diabetic neuropathy and history of type 1 diabetes. ? Current therapy:Houck/Carboplatin Last cycle gem/carbo on 11/08/17-at [facility]. Fevers started 11/16/17 Tmax 102. Appetite:fair-drinking plenty of fluids Energy level:fair Mouth:denies sores Resp:denies cough or sob Cardiac:denies chest pain/palpitations GI:denies abd pain, n/v, moving bowels regularly :denies dysuria/hematuria Extrem:pain to L thigh-recent US neg DVT Neuro:neuropathy stable Skin:denies rashes/lesions Heme:denies bleeding The ROS is otherwise negative. Past medical history, appointments, medications, allergies reviewed. No changes. EXAM: BP 128/65 Pulse 102 Temp 37.4 ?C (99.4 ?F) (Oral) Wt 89.1 kg (196 lb 8 oz) BMI 29.92 kg/m? APPEARANCE Well appearing, alert, in no acute distress, well- hydrated, well nourished. MOUTH no mucositis HEART RRR with normal S1 and S2, no murmurs LUNG clear to auscultation LYMPH NODES No cervical lymphadenopathy, No supraclavicular lymphadenopathy and No axillary lymphadenopathy. ABDOMEN bowel sounds normoactive, no bruits, soft, non-tender, non-distended, without organomegaly or palpable masses EXTREMITIES No edema NEURO Awake, alert and oriented x 3, Normal gait and No involuntary motions. SKIN Skin color, texture, turgor normal, no suspicious rashes or lesions ASSESSMENT/PLAN: 1. Malignant neoplasm of upper-outer quadrant of right breast in female, estrogen receptor negative (HCC) - ICD9: 174.4, V86.1, ICD10: C50.411, Z17.1 (primary diagnosis) pT1c (1.6 cm; grade 3; no AL invasion) pN0(sn) MX ER/KS negative HER2 non-amplified invasive ductal carcinoma of the right breast. Comprehensive BRCA 1 and 2 testing (scanned 12/05/2013) no mutation 2. FUO (fever of unknown origin) - ICD9: 780.60, ICD10: R50.9 - Reviewed [facility] ED notes/labs/CXR/urine-neg. Blood cultures pending. - Pt. denies any other symptoms besides fever. Pt. advised to continue tylenol and call in if new symptoms develope over the weekend. - Rx levaquin. - Follow up as scheduled. - Pt. aware to call office with any questions/concerns. The patient indicates understanding of these issues and agrees with the plan. Discussed case with Dr. Barakat who agrees with treatment plan. Asia Reyes APRN.HEALTH CARE LIAISON Referring Provider: CLIFFORD BARAKAT [[id number]] Allergies As of Date: 11/18/2017 (No Known Allergies) Date Reviewed: 11/18/2017 Reviewed by: Asia (Osei) Eric - Fully Assessed Reason for Visit: Established Patient [175] Primary Visit Diagnosis:Malignant neoplasm of upper-outer quadrant of right breast in female, estrogen receptor negative (HCC) [C50.411, Z17.1] Other Visit Diagnosis:FUO (fever of unknown origin) [R50.9] Order(s):levoFLOXacin (LEVAQUIN) 500 mg tabletTAKE PO FOR 5 DAYS.Disp: 5 tabletRfl: 0 Follow-up and Disposition History Recorded Prescriptions as of 11/18/2017 Sig: HYDROCODONE 5 MG-ACETAMINOPHE* Take 1 tablet by mouth twice * METOCLOPRAMIDE 10 MG TABLET Take 1 tablet by mouth every * GABAPENTIN 300 MG CAPSULE Take 1 capsule by mouth three* TIMOLOL 0.5 % EYE DROPS Use 1 Drop in both eyes once * DICYCLOMINE 20 MG TABLET Take 20 mg by mouth every 8 h* LORAZEPAM 1 MG TABLET Take 1 tablet by mouth every * LIDOCAINE-PRILOCAINE 2.5 %-2.* Apply 1 application to affect* CITALOPRAM 20 MG TABLET Take 1 tablet by mouth once d* CLONAZEPAM 0.5 MG TABLET 1 tablet twice daily. PRN NITROFURANTOIN MONOHYDRATE AND * Take 100 mg by mouth twice da* EMPAGLIFLOZIN 10 MG TABLET Take 10 mg by mouth once gamaliel* VITAMIN B COMPLEX CAPSULE Take 1 capsule by mouth twice* CREON ORAL Take 6,000 Units by mouth. Wi* VALACYCLOVIR 500 MG TABLET Take 500 mg by mouth as neede* ERGOCALCIFEROL (VITAMIN D2) 5* Take 50,000 Units by mouth on* * INSULIN GLARGINE (U-100) 100 * Take 50 in am and 70 units in* * HUMALOG KWIKPEN (U-100) INSUL* 15 in am, 15 noon, 20 in philip LEVOFLOXACIN 500 MG TABLET TAKE PO FOR 5 DAYS. Problem List As Of Date 11/18/2017 Noted Resolved THYROID NODULE [E04.1] INVALID FOR* More... Anxiety State, Unspecified [F41.1] 01/22/2009 Depressive Disorder, not Elsewhere Classified [* Priority: Moderate More... DM w/o complication type II, uncontrolled [E11.*INVALID FOR* Priority: Severe More... Other Malaise and Fatigue [R53.81, R53.83] INVALID FOR*01/22/2009 More... HYPERLIPIDEMIA NEC/NOS [E78.5] INVALID FOR* FIBROMYALGIA [[id number]] INVALID FOR* Priority: Moderate OVERWEIGHT [E66.9] INVALID FOR* OTHER HAMMER TOE [M20.40] INVALID FOR* More... URIN TRACT INFECTION RECURRENT [N39.0] INVALID FOR*01/21/2016 More... GENITAL HERPES NOS [A60.00] INVALID FOR* Tobacco Use Disorder [F17.200] INVALID FOR* Priority: Moderate More... CONGENITAL PES PLANUS [Q66.50] INVALID FOR* Displacement of Lumbar Intervertebral Disc with*INVALID FOR* Priority: Moderate More... More... Routine Gynecological Examination [Z01.419] INVALID FOR* Class: Chronic More... 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*INVALID FOR* Malignant neoplasm metastatic to left lung (HCC*INVALID FOR* Examination of participant in clinical trial [Z*INVALID FOR* Visit Notes: >> Federica Pimentel LPN TueNov 18, 2017 11:50 AM Status: Signed Est patient. C/O fever and chills that started Tuesday. Denies nausea and vomiting. Appetite poor, able to tolerate po fluids.Temp at 10:00 am was 101.7, took 1000 mg Tylenol then. Temp is now 99.4 F. Federica Pimentel LPN Encounter Status:Closed by ASIA REYES CNP on 11/21/17 PROGRESS Observed: 11/18/2017 Status: COMPLETED Source: [place] 11:52 AM [facility] REPOSITORY HNO ID: [id number] Author: Asia (Osei) Eric Service: (none) Author Type: Nurse Practitioner Type: Progress Notes Filed: 11/21/2017 8:51 AM Note Text: Chief Complaint Patient presents with: Established Patient HPI: Pedro Luis Wilcox is a 47 year old female who presents here today for complaints of fevers that began wed. evening. Pt. left work early and went to [facility] ED late Wed. night. Per Dr. Barakat's previous note: H/o type 1 DM (diagnosed about 27 years ago; has sensory neuropathy to mid lower leg b/l; no other complications). ? Her mother has a h/o breast cancer, so patient had been undergoing annual mammogram. ? The patient underwent a screening mammogram on 08/30/2013. A 1.6 cm nodular density was appreciated in the tail of the right breast. She underwent targeted ultrasound the same day. That study revealed a 9 mm hypoechoic solid nodule at the 10:00 position of the breast measuring 6 cm from the nipple. ? Stereotactic core needle biopsy on 09/13/2013. The tissue revealed invasive poorly differentiated ductal carcinoma. The specimen was negative for both estrogen and progesterone receptors. Both were quantified at 0%. HER-2 was 2+ an immunostain and nonamplified by FISH testing. ? The patient underwent an MRI of the breast on 09/20/2013. The study revealed that the left breast had no suspicious findings. In the right breast there was a 1.6 cm abnormal enhancing mass in the superior outer aspect of the right breast approximately 10 cm from the nipple. This correlated to the biopsy area. ? Underwent partial mastectomy with SLN biopsy 10/05/2013. The final pathology revealed an invasive poorly differentiated ductal carcinoma measuring 1.3 cm in size. There was a single focus. DCIS was present measuring 2 mm in maximum dimension. The grade of the cancer was 3. Margins were negative. The closest was 6 mm. Lymphovascular invasion was not identified. One sentinel lymph node was retrieved. It was negative. ? Received two cycles of TC. ? Admitted for severe PAGE. ? Admitted 12/17/2013 due to increase in thigh pain and dyspnea. Markedly elevated CK. No increase in serum Cr. ? Chemotherapy stopped after cycle #2. ? Was seen by ornamental plasterer helper at . 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 ? Completed radiation 03/26/2014. ? ? ? She started developing intermittent shortness of breath with exertion. She also has a cough that is a dry cough. She was taken off her PAM inhibitor but the cough has not changed. She had a PA and lateral chest film done on 10/22/2016 that demonstrated no abnormality. She then underwent a CT scan the chest without IV contrast on 11/06/2016. Two nodules were observed in the pulmonary parenchyma. One was located in the right lower lobe and the second was located in the lingular lobe. Each measured 8 mm and were thought to be consistent with metastatic disease. CT of the abdomen and pelvis on 11/20/2016 as well as repeat CT chest with IV contrast demonstrated a thick walled gallbladder suspicious for cystitis, chronic and redemonstration of the lung nodules. No concern for metastatic disease in the abdomen or pelvis. Brain MRI on 11/23/2016 was normal. PET scan demonstrated multiple foci of increased glucose concentration manifested in the right axilla, significant region generating a standard uptake value of 7.6. The maximal axial diameter the largest individual hypermetabolic soft tissue density on review of the CT of the thorax was approximately 23.1 mm in transverse dimension. ? An ultrasound of the right axilla and subclavicular region on 12/02/2016 demonstrated that within the right axilla there was a cluster of abnormal appearing hypoechoic nodules. The largest measured 2.3 x 1.50 1.4 cm. In the subclavicular region there was also evidence of several hypoechoic nodules the largest measuring 2.75 x 2.85 1.5 cm. ? She then underwent a right axillary core needle biopsy on 12/07/2016. ? The pathology demonstrated a poorly differentiated metastatic carcinoma. The specimen was negative for both ER and KS as well as HER- 2. I discussed the case with the pathologist today who told me that histologically/morphologically the specimen was consistent with her previous specimen of breast cancer. The pathologist will issue an addendum quantifying ER and KS 0 as well as HER-2 at 0. ? She had a stress test and echocardiogram about 3 years ago and had no evidence of coronary artery disease. She had LV concentric hypertrophy with preserved ejection fraction. ? She underwent port placement along with right axillary lymph node dissection on 12/24/2016. ? MICROSCOPIC DIAGNOSIS Right axillary lymph nodes, regional lymph adenectomy: One out of seven lymph nodes with metastatic poorly differentiated carcinoma. See comment. COMMENT Immunohistochemistry ([id number]) does not rule out a breast primary. There is focal perinodal extension of tumor. Clinical correlation is suggested. ? ANTIBODY / CLONE RESULT Block 1 Mammaglobin (31A5) negative GATA3 (L50-823) positive, rare, dim CK8 (62pqerE68) positive Ki-67 (30-9) positive, moderate to high ER (6F11) negative 0% KS (1E2) negative 0% CK19 (A53-B/A2.26) positive Cyclin D1/BCL-1 (SP4) positive CEA (11-7/TF-3HB-1) negative SHELLI (E29) positive CK20 (KS20.8) negative Villin (CWWB1) negative RCC (PN-15) negative CA125 (OC125) positive ? Previous therapy for metastatic disease: 1) Cisplatin (+/- PARP inhibitor on trial). ? She underwent a CT scan of the neck, chest abdomen and pelvis at [facility] on 10/05/2017. The CT of the neck revealed an abnormal enhancing right subclavicular lymph node measuring 2.6 x 2.0 x 2.2 cm. There were no other significant abnormalities. CT of the chest corroborated the CT neck findings with a 2.6 x 1.5 mm lymph node in the right supraclavicular region. The abdominopelvic images revealed no evidence of metastatic disease. Bone scan done 10/07/2017 showed some increase in radiopharmaceutical concentration in the distal sternum and in the right posterior and anterior lateral ribs potentially representing limited skeletal metastatic disease. Came off trial. ? She was seen at [facility] and did not qualify for the 2 clinical trials available due to her pre-existing diabetic neuropathy and history of type 1 diabetes. ? Current therapy:Houck/Carboplatin Last cycle gem/carbo on 11/08/17-at [facility]. Fevers started 11/16/17 Tmax 102. Appetite:fair-drinking plenty of fluids Energy level:fair Mouth:denies sores Resp:denies cough or sob Cardiac:denies chest pain/palpitations GI:denies abd pain, n/v, moving bowels regularly :denies dysuria/hematuria Extrem:pain to L thigh-recent US neg DVT Neuro:neuropathy stable Skin:denies rashes/lesions Heme:denies bleeding The ROS is otherwise negative. Past medical history, appointments, medications, allergies reviewed. No changes. EXAM: BP 128/65 Pulse 102 Temp 37.4 ?C (99.4 ?F) (Oral) Wt 89.1 kg (196 lb 8 oz) BMI 29.92 kg/m? APPEARANCE Well appearing, alert, in no acute distress, well-hydrated, well nourished. MOUTH no mucositis HEART RRR with normal S1 and S2, no murmurs LUNG clear to auscultation LYMPH NODES No cervical lymphadenopathy, No supraclavicular lymphadenopathy and No axillary lymphadenopathy. ABDOMEN bowel sounds normoactive, no bruits, soft, non-tender, non-distended, without organomegaly or palpable masses EXTREMITIES No edema NEURO Awake, alert and oriented x 3, Normal gait and No involuntary motions. SKIN Skin color, texture, turgor normal, no suspicious rashes or lesions ASSESSMENT/PLAN: 1. Malignant neoplasm of upper-outer quadrant of right breast in female, estrogen receptor negative (HCC) - ICD9: 174.4, V86.1, ICD10: C50.411, Z17.1 (primary diagnosis) pT1c (1.6 cm; grade 3; no AL invasion) pN0(sn) MX ER/KS negative HER2 non-amplified invasive ductal carcinoma of the right breast. Comprehensive BRCA 1 and 2 testing (scanned 12/05/2013) no mutation 2. FUO (fever of unknown origin) - ICD9: 780.60, ICD10: R50.9 - Reviewed [facility] ED notes/labs/CXR/urine-neg. Blood cultures pending. - Pt. denies any other symptoms besides fever. Pt. advised to continue tylenol and call in if new symptoms develope over the weekend. - Rx levaquin. - Follow up as scheduled. - Pt. aware to call office with any questions/concerns. The patient indicates understanding of these issues and agrees with the plan. Discussed case with Dr. Barakat who agrees with treatment plan. Asia Reyes APRN.[facility] EMERGENCY DEPARTMENT Observed: 11/16/2017 Status: F Source: [place] SUMMARY 11:40 PM [facility] REPOSITORY [facility] Medical Records Department [address] [place] [address] Emergency Department Summary 11/16/17 2102 MR#: [id number] Acct: [id number] Name: PEDOR LUIS WILCOX Rep #: [id number] : 1970 47 From: Mook Paige MD PCP: Jacinto Person MD Status: REG ER History of Present Illness Chief Complaint: Fever Informant: Patient Onset: Yesterday Context: Gradual Onset Current Severity: Moderate Maximum Severity: Moderate Associated Symptoms: fever to 101.2, chills, fatigue. Narrative: Patient recently restarted chemotherapy for metastatic breast cancer. She has had 2 chemotherapy injections, the last one was about 8 days ago. She states she has not needed any white blood cell boosters. She denies having any cough, shortness of breath, urinary symptoms, or abdominal symptoms. - Past Medical History (1) Carcinoma of right breast metastatic to axillary lymph node Status: Chronic (2) DM (diabetes mellitus), type 2, uncontrolled with complications Status: Chronic (3) GERD (gastroesophageal reflux disease) Status: Chronic (4) HTN (hypertension) Status: Chronic (5) Hyperlipidemia Status: Chronic Past Medical History - Allergies and Home Meds Allergies/Adverse Reactions: Allergies No Known Allergies Allergy (Verified 11/16/17 20:49) Primary Care Physician: Jacinto Preson MD [Primary Care Provider] - Surgical History: cataract, hysterectomy, - - Breast lumpectomy, IV port for chemo Lives: Spouse/ Significant Other Smoking Status: Former smoker - Family History Maternal Family History: Family History (Last Updated 09/07/17 @ 14:09 by Deysi Bautista) Mother Breast cancer Diabetes Aunt Skin cancer Father Heart disease Hypertension Family History: Reports: Cancer - Breast Paternal Family History: Family History (Last Updated 09/07/17 @ 14:09 by Deysi Bautista) Mother Breast cancer Diabetes Aunt Skin cancer Father Heart disease Hypertension Family History: Reports: Diabetes, High Cholesterol Sibling Family History: Family History (Last Updated 09/07/17 @ 14:09 by Deysi Bautista) Mother Breast cancer Diabetes Aunt Skin cancer Father Heart disease Hypertension Family History: Reports: No pertinent history Review of Systems All systems negative except as indicated General: Reports: Chills, Fever, Malaise Physical Exam Vital Signs/Narrative: Vital Signs 11/16/17 20:33 100.6 F H 111 H 112 H 159/75 H 99 Inital Vital Signs reviewed: Yes General: Well nourished, Well developed Head: Normocephalic, Atraumatic Eyes: Perrl, EOMI ENT: Moist mucous membranes, No rhinorrhea Neck: Supple, Nontender, No lymphadenopathy Cardiovascular: Regular rate, Regular rhythm, No murmurs Respiratory: No distress, CTA bilaterally, Chest nontender Abdomen: Soft, Nontender, Nondistended, Normal bowel sounds Back: Nontender, Normal Inspection Extremities: Nontender, No edema Skin: Normal color, No rash Neurological: Alert, Oriented x3, Cranial nerves II-XII grossly intact, Normal Strength, Normal Sensation Psychological: Normal affect Diagnostic/Tx/Re-eval Impressions Chest X-Ray 11/16/17 21:01 IMPRESSION: No acute cardiopulmonary findings or changes. Negative for new consolidation, focal atelectasis or a substantial pleural effusion. Port-A-Cath ends in the distal superior vena cava. Electronically Signed: Elvira Foss MD at 21:21 EDT , Service support , 11/16/17 21:01 Chest 1 View (Portable) [RAD] Stat Laboratory Results WBC 5.9 (4.4-11.0) K/mm3 RBC 2.97 L (4.2-5.4) M/mm3 - Medical Decision Making Labs are all normal, including a white blood count of 5.9 with no shift. Urinalysis shows no infection, chest x-ray is unremarkable. Prior to receiving Tylenol for her fever, her temperature actually went up to 102.2, she received a Tylenol, it then came down to 101. I discussed with Dr. Donovan, who recommends no antibiotics at this time. Blood cultures were obtained, he recommends treating her fever at home as needed and following up with her oncologist in the office. ED Disposition - Plan for ED Patient: Disposition: Home or Assisted Living Chief Complaint: Fever Diagnosis: Fever and chills, Acquired immunocompromised state, Metastatic breast cancer Instructions: ED Fever Unconf Cause Referrals: Jacinto Person MD [Primary Care Provider] - Clifford Barakat DO [STAFF PHYSICIAN] - 3-5 Days What to do if you have Problems For any increased pain, shortness of breath, bleeding, nausea or vomiting, chest pain, or any unexpected problems, contact your Primary Care Provider. Call [facility] ([phone]) or report to the closest Emergency Room. Call 911 if necessary. 11/16/17 9000 <Electronically signed by Mook Paige MD> Date Mook Paige MD Cosigner Signature (If Indicated): Date CC: Jacinto Person MD URINALYSIS, COMPLETE Collected: 11/16/2017 Status: F Source: [place] 10:00 PM [facility] REPOSITORY Order Comment: How was Urine Obtained? WEB ANALYTICS SPECIALIST TO SPECIFY TYPE CODE TESTS RESULT OUT OF RANGE REFERENCE UNITS LAB L400.3000 Yellow COLOR Normal Yellow LAB L400.3050 Clear Normal CLARITY Clear LAB L400.3200 Normal mg/dl High GLUCOSE, UR 1000 LAB L400.3300 Negative mg/dL Normal BILIRUBIN URINE Negative LAB L400.3400 Negative mg/dl High 5 KETONE UR LAB L400.3465 1.002-1.030 Normal SP.GR. DIPSTX 1.015 LAB L400.3550 5.0 - 8.0 pH UR Normal 6.0 LAB L400.3600 Negative mg/dl High PROT DIPSTX 100 LAB L400.3700 Normal mg/dl Normal UROBILI Normal LAB L400.3750 Negative Normal NITRITE UR Negative LAB L400.3780 Negative /ul High 25 OCCULT BLOOD-UR LAB L400.3800 Negative /ul High LEUK 25 ESTERASE LAB L400.4050 0-5 /hpf WBC Normal 0-5 SEEN LAB L400.4100 0-5 /hpf Normal RBC-UA 0-5 SEEN LAB L400.4150 5-10 /hpf SQUAM Normal EPI 0-5 SEEN LAB L400.4300 None Seen /hpf 0 Normal BACTERIA SEEN LAB L400.4350 <or=2+ /hpf 0 Normal MUCUS, URINE SEEN Performed By: #### L400.0001 #### [facility] [address] [place], [address] Observed: 11/16/2017 Status: F Source: [place] CULTURE, BLOOD (WB) 9:17 PM [facility] REPOSITORY BC No growth in 5 days. Performed By: #### M200.1000 #### [facility] [address] [place], [address] Observed: 11/16/2017 Status: F Source: [place] CULTURE, BLOOD (WB) 9:15 PM [facility] REPOSITORY BC No growth in 5 days. Performed By: #### M200.1000 #### [facility] [address] [place], [place], [address] CHEST 1 VIEW Observed: 11/16/2017 Status: F Source: [place] (PORTABLE) 9:02 PM [facility] [place] REPOSITORY [facility] Imaging Services [address] [place] [address] Chest 1 View (Portable) MR#: [id number] Acct: [id number] Name: PEDRO LUIS WILCOX Clay Rep #: [id number] : 1970 F 47 From: Elvira Foss MD PCP: Raza VELAZQUEZ,Jacinto Status: REG ER Study: Chest 1 View (Portable) Date of Exam: 11/16/17 Exam# [id number] Ordering Dr: Mook Paige MD STUDY: X-RAY CHEST REASON FOR EXAM: Female, 47 years old. New fever in patient receiving chemotherapy. TECHNIQUE: 1 view COMPARISON: Prior chest radiograph of August 29, 2017. FINDINGS: Port-A-Cath ends in the distal superior vena cava. The lungs are clear and expanded. There is no demonstrated pleural abnormality. Normal size heart. Normal mediastinum and brandi. Normal visualized pulmonary arteries. Normal visualized aortic arch and descending thoracic aorta. Normal visualized thoracic spine. Normal visualized ribs, clavicles, and shoulders. There is no demonstrated abnormality of the visualized soft tissue structures of the upper abdomen. RAD/Chest 1 View (Portable) IMPRESSION: No acute cardiopulmonary findings or changes. Negative for new consolidation, focal atelectasis or a substantial pleural effusion. Port-A-Cath ends in the distal superior vena cava. Electronically Signed: Elvira Foss MD at 21:21 EDT , Service support , CC: MOOK PAIGE MD; Jacinto Person MD Family [employer] Consumer Education Teacher: Signed CBC W/DIFF, AUTOMATED Collected: 11/16/2017 Status: F Source: [place] 9:01 PM [facility] REPOSITORY TYPE CODE TESTS RESULT OUT OF RANGE REFERENCE UNITS LAB L100.1000 4.4-11.0 K/mm3 Normal WBC 5.9 LAB L100.1200 4.2-5.4 M/mm3 Low RBC 2.97 LAB L100.1300 12.0-15.0 g/dl Low HGB 9.3 LAB L100.1400 37-47 % Low HCT 27.7 LAB L100.1500 81-99 fL Normal MCV 93.3 LAB L100.1600 27.0-32.0 pg Normal MCH 31.3 LAB L100.1700 32-36 g/gl Normal MCHC 33.6 LAB L100.1810 11.6-14.6 % Normal RDW CV 12.0 LAB L100.1820 35.1-43.9 fl Normal RDW SD 40.5 LAB L100.1900 150-450 K/mm3 Low PLT 94 LAB L100.2000 6.2-12.0 fl Normal MPV 8.7 LAB L100.2100 47-70 % Normal NEUT% 67.6 LAB L100.2200 19-41 % Normal LY% 26.1 LAB L100.2300 0-10 % Normal MONO% 5.4 LAB L100.2400 0-5 % Normal EO% 0.7 LAB L100.2500 0-1 % Normal BASO% 0.2 LAB L100.2550 0.0-0.9 % Normal IM GRAN % 0.000 Result Comment: IG% - Immature Granulocytes (promyelocytes, myelocytes and metamyelocytes) > 1% indicates that a LEFT SHIFT is Present. LAB L100.2620 2.0-7.7 X10 3/uL Normal Absolute Neut 4.0 LAB L100.2720 0.83-4.51 X10 3/ul Normal Absolute Lymph 1.55 Performed By: #### L100.0100 #### [facility] [address] [place], [address] COMPREHENSIVE METABOLIC Collected: 11/16/2017 Status: F Source: [facility] 9:01 PM [facility] REPOSITORY TYPE CODE TESTS RESULT OUT OF RANGE REFERENCE UNITS LAB L501.0100 74-106 mg/dL High GLU 244 Result Comment: Glucose result greater than or equal to 200 mg/dL suggests DIABETES MELLITUS per A.D.A. criteria. Please note revised GLUCOSE reference range effective 2017. LAB L501.1000 7-18 mg/dL High BUN 27 LAB L501.1100 0.55-1.02 mg/dL Normal CREAT,SERUM 0.92 Result Comment: The validity of the calculated GFR AND GFRAA in patients over 70 years has not been determined. Clinical correlation is essential. LAB L501.1110 >60 mL/min Normal EST GFR 69 Result Comment: Non- GFR Calc LAB L501.1115 >60 mL/min Normal EST GFR - AA 84 Result Comment: GFR Calc LAB L501.1255 ml/min Normal Estimated CRCL 75.44 LAB L501.1300 10-20 RATIO High BUN/CRE 29.4 LAB L501.1500 6.4-8. g/dL Normal 2 T PROT 7.7 LAB L501.1800 3.2-5. g/dL Normal 0 ALB 3.2 LAB L501.1950 2.2-4. g/dL High 2 GLOB 4.5 LAB L501.2000 0.9-2. RATIO Low 4 A/G 0.7 LAB L501.2200 8.5-10 mg/dL Normal .1 CA 8.5 LAB L501.4100 15-37 U/L Low AST 8 LAB L501.4305 45-117 U/L Normal ALK P 90 LAB L501.4405 13-56 U/L Normal ALT 18 LAB L501.4600 0.20-1 mg/dL Normal .00 T BILI 0.20 LAB L501.5300 136-14 mmol/L Normal 5 NA 138 LAB L501.5600 3.5-5. mmol/L Normal 1 K 4.0 LAB L501.5900 98-107 mmol/L Normal CL 101 LAB L501.6100 21.0-3 mmol/L Normal 2.0 CO2 30.0 LAB L501.6200 5-15 Normal GAP 7 Performed By: #### L500.4050 #### [facility] [address] [place] [address]. [place], [address] CBC W/DIFF, AUTOMATED Collected: 11/14/2017 Status: F Source: [place] 10:46 AM [facility] [place] REPOSITORY TYPE CODE TESTS RESULT OUT OF RANGE REFERENCE UNITS LAB L100.1000 4.4-11.0 K/mm3 Low WBC 3.1 LAB L100.1200 4.2-5.4 M/mm3 Low RBC 3.16 LAB L100.1300 12.0-15.0 g/dl Low HGB 10.3 LAB L100.1400 37-47 % Low HCT 29.8 LAB L100.1500 81-99 fL Normal MCV 94.3 LAB L100.1600 27.0-32.0 pg High MCH 32.6 LAB L100.1700 32-36 g/gl Normal MCHC 34.6 LAB L100.1810 11.6-14.6 % Low RDW CV 11.2 LAB L100.1820 35.1-43.9 fl Normal RDW SD 37.0 LAB L100.1900 150-450 K/mm3 Low PLT 143 LAB L100.2000 6.2-12.0 fl Normal MPV 8.8 LAB L100.2100 47-70 % Normal NEUT% 48.9 LAB L100.2200 19-41 % High LY% 48.9 LAB L100.2300 0-10 % Normal MONO% 1.6 LAB L100.2400 0-5 % Normal EO% 0.3 LAB L100.2500 0-1 % Normal BASO% 0.3 LAB L100.2550 0.0-0.9 % Normal IM GRAN % 0.000 Result Comment: IG% - Immature Granulocytes (promyelocytes, myelocytes and metamyelocytes) > 1% indicates that a LEFT SHIFT is Present. LAB L100.2620 2.0-7.7 X10 3/uL Low Absolute Neut 1.5 LAB L100.2720 0.83-4.51 X10 3/ul Normal Absolute Lymph 1.52 Performed By: #### L100.0100 #### [facility] [address] [place], [address] BASIC METABOLIC Collected: 11/14/2017 Status: F Source: [place] [place] 10:46 AM [facility] [place] REPOSITORY TYPE CODE TESTS RESULT OUT OF RANGE REFERENCE UNITS LAB L501.0100 74-106 mg/dL High GLU 412 Result Comment: Glucose result greater than or equal to 200 mg/dL suggests DIABETES MELLITUS per A.D.A. criteria. Please note revised GLUCOSE reference range effective 2017. LAB L501.1000 7-18 mg/dL High BUN 27 LAB L501.1100 0.55-1.02 mg/dL Normal CREAT,SERUM 0.84 Result Comment: The validity of the calculated GFR AND GFRAA in patients over 70 years has not been determined. Clinical correlation is essential. LAB L501.1110 >60 mL/min Normal EST GFR 77 Result Comment: Non- GFR Calc LAB L501.1115 >60 mL/min Normal EST GFR - AA 93 Result Comment: GFR Calc LAB L501.1300 10-20 RATIO High BUN/CRE 32.2 LAB L501.2200 8.5-10.1 mg/dL CA Normal 9.5 LAB L501.5300 136-145 mmol/L Low NA 133 LAB L501.5600 3.5-5.1 mmol/L K Normal 4.2 LAB L501.5900 98-107 mmol/L CL Normal 98 LAB L501.6100 21.0-32.0 mmol/L Normal CO2 29.0 LAB L501.6200 5-15 Normal GAP 6 Performed By: #### L500.2500, L500.3400 #### [facility] [address] [place], [address] LIVER PROFILE Collected: 11/14/2017 Status: F Source: [place] 10:46 AM [facility] [place] REPOSITORY TYPE CODE TESTS RESULT OUT OF RANGE REFERENCE UNITS LAB L501.1500 6.4-8.2 g/dL Normal T PROT 7.8 LAB L501.1800 3.2-5.0 g/dL Normal ALB 3.6 LAB L501.1950 2.2-4.2 g/dL Normal GLOB 4.2 LAB L501.4100 15-37 U/L Low AST 13 LAB L501.4305 45-117 U/L Normal ALK P 89 LAB L501.4405 13-56 U/L Normal ALT 25 LAB L501.4600 0.20-1.00 mg/dL Normal T BILI 0.30 LAB L501.4700 0.00-0.30 mg/dL Normal D BILI 0.10 Performed By: #### L500.2500, L500.3400 #### [facility] [address] [place], [address] VENOUS DUPLEX LOWER Observed: 11/09/2017 Status: F Source: [place] EXTREMITY 5:38 PM [facility] [place] REPOSITORY [facility] Cardiovascular Services [address] [place] [address] Venous Duplex US, Unilateral 11/09/17 1359 MR#: [id number] Acct: [id number] Name: PEDRO LUIS WILCOX Rep #: [id number] : 1970 47 From: Clay Nieto MD Attending Dr: Clifford Barakat DO Status: REG CLI Ordering Dr: Clifford Barakat DO Date: 11/09/17 Location: [facility]S Sex: F AA Admitted: Reason For Study: LEG SWELLING RIGHT LEFT CFV is compressible, spontaneous, phasic, GSV is normal. competent and demonstrates normal CFV is compressible, spontaneous, phasic, augmentation. competent, and demonstrates normal Procedure augmentation. Exam performed in department. FV is compressible, spontaneous, phasic, A preliminary report was called and/or faxed competent and demonstrates normal to Dr. Barakat. augmentation. POP V is compressible, spontaneous, phasic, competent and demonstrates normal augmentation. T/P Trunk is compressible. PTV is compressible. LT PerV is compressible. Interpretation Summary Deep veins of the left lower extremity are patent and compressible segmentally. There is no evidence of left lower extremity deep vein thrombosis. Valvular competence appears intact within the proximal deep venous system on the left . The left greater saphenous vein appears patent and compressible segmentally. Ordering Physician: Clifford Barakat Referring Physician: Jacinto Person MD Performed By: Gabbie Zazueta RVT 11/09/17 1737 Date Clay Nieto MD CC: Jacinto Person MD; Clifford Barakat DO Date Dictated: 11/09/17 1359 Date Transcribed: 11/09/171736 Family And Consumer Education Teacher: Signed CBC W/DIFF, AUTOMATED Collected: 11/07/2017 Status: F Source: [place] 10:07 AM [facility] [place] REPOSITORY TYPE CODE TESTS RESULT OUT OF RANGE REFERENCE UNITS LAB L100.1000 4.4-11.0 K/mm3 Low WBC 3.7 LAB L100.1200 4.2-5.4 M/mm3 Low RBC 3.35 LAB L100.1300 12.0-15.0 g/dl Low HGB 10.4 LAB L100.1400 37-47 % Low HCT 31.2 LAB L100.1500 81-99 fL Normal MCV 93.1 LAB L100.1600 27.0-32.0 pg Normal MCH 31.0 LAB L100.1700 32-36 g/gl Normal MCHC 33.3 LAB L100.1810 11.6-14.6 % Normal RDW CV 11.6 LAB L100.1820 35.1-43.9 fl Normal RDW SD 39.4 LAB L100.1900 150-450 K/mm3 Normal PLT 252 LAB L100.2000 6.2-12.0 fl Normal MPV 8.8 LAB L100.2100 47-70 % Low NEUT% 45.1 LAB L100.2200 19-41 % High LY% 53.0 LAB L100.2300 0-10 % Normal MONO% 0.5 LAB L100.2400 0-5 % Normal EO% 1.1 LAB L100.2500 0-1 % Normal BASO% 0.3 LAB L100.2550 0.0-0.9 % Normal IM GRAN % 0.000 Result Comment: IG% - Immature Granulocytes (promyelocytes, myelocytes and metamyelocytes) > 1% indicates that a LEFT SHIFT is Present. LAB L100.2620 2.0-7.7 X10 3/uL Low Absolute Neut 1.7 LAB L100.2720 0.83-4.51 X10 3/ul Normal Absolute Lymph 1.94 Performed By: #### L100.0100 #### [facility] [address] [place], [address] BASIC METABOLIC Collected: 11/07/2017 Status: F Source: [place] PROFILE [place] [place] 10:07 AM [facility] [place] REPOSITORY TYPE CODE TESTS RESULT OUT OF RANGE REFERENCE UNITS LAB L501.0100 74-106 mg/dL High GLU 229 Result Comment: Glucose result greater than or equal to 200 mg/dL suggests DIABETES MELLITUS per A.D.A. criteria. Please note revised GLUCOSE reference range effective 2017. LAB L501.1000 7-18 mg/dL Normal BUN 17 LAB L501.1100 0.55-1.02 mg/dL Normal CREAT,SERUM 0.60 Result Comment: The validity of the calculated GFR AND GFRAA in patients over 70 years has not been determined. Clinical correlation is essential. LAB L501.1110 >60 mL/min Normal EST GFR 113 Result Comment: Non- GFR Calc LAB L501.1115 >60 mL/min Normal EST GFR - AA 137 Result Comment: GFR Calc LAB L501.1300 10-20 RATIO High BUN/CRE 28.4 LAB L501.2200 8.5-10.1 mg/dL CA Normal 8.8 LAB L501.5300 136-145 mmol/L NA Normal 137 LAB L501.5600 3.5-5.1 mmol/L K Normal 3.7 LAB L501.5900 98-107 mmol/L CL Normal 101 LAB L501.6100 21.0-32.0 mmol/L Normal CO2 30.0 LAB L501.6200 5-15 Normal GAP 6 Performed By: #### L500.2500, L500.3400 #### [facility] [address] [facility] [place], [place], [id number] LIVER PROFILE Collected: 11/07/2017 Status: F Source: [place] 10:07 AM [facility] [place] REPOSITORY TYPE CODE TESTS RESULT OUT OF RANGE REFERENCE UNITS LAB L501.1500 6.4-8.2 g/dL Normal T PROT 7.8 LAB L501.1800 3.2-5.0 g/dL Normal ALB 3.4 LAB L501.1950 2.2-4.2 g/dL High GLOB 4.4 LAB L501.4100 15-37 U/L Low AST 14 LAB L501.4305 45-117 U/L Normal ALK P 84 LAB L501.4405 13-56 U/L Normal ALT 24 LAB L501.4600 0.20-1.00 mg/dL Normal T BILI 0.20 LAB L501.4700 0.00-0.30 mg/dL Normal D BILI 0.10 Performed By: #### L500.2500, L500.3400 #### [facility] [address] [facility] [place], [address] CBC W/DIFF, AUTOMATED Collected: 10/31/2017 Status: F Source: [place] 11:35 AM [facility] [place] REPOSITORY TYPE CODE TESTS RESULT OUT OF RANGE REFERENCE UNITS LAB L100.1000 4.4-11.0 K/mm3 Normal WBC 5.4 LAB L100.1200 4.2-5.4 M/mm3 Low RBC 3.57 LAB L100.1300 12.0-15.0 g/dl Low HGB 11.6 LAB L100.1400 37-47 % Low HCT 33.4 LAB L100.1500 81-99 fL Normal MCV 93.6 LAB L100.1600 27.0-32.0 pg High MCH 32.5 LAB L100.1700 32-36 g/gl Normal MCHC 34.7 LAB L100.1810 11.6-14.6 % Low RDW CV 11.2 LAB L100.1820 35.1-43.9 fl Normal RDW SD 37.6 LAB L100.1900 150-450 K/mm3 Normal PLT 364 LAB L100.2000 6.2-12.0 fl Normal MPV 8.9 LAB L100.2100 47-70 % Normal NEUT% 61.0 LAB L100.2200 19-41 % Normal LY% 31.7 LAB L100.2300 0-10 % Normal MONO% 6.3 LAB L100.2400 0-5 % Normal EO% 0.6 LAB L100.2500 0-1 % Normal BASO% 0.2 LAB L100.2550 0.0-0.9 % Normal IM GRAN % 0.200 Result Comment: IG% - Immature Granulocytes (promyelocytes, myelocytes and metamyelocytes) > 1% indicates that a LEFT SHIFT is Present. LAB L100.2620 2.0-7.7 X10 3/uL Normal Absolute Neut 3.3 LAB L100.2720 0.83-4.51 X10 3/ul Normal Absolute Lymph 1.71 Performed By: #### L100.0100 #### [facility] [address] [place], [address] BASIC METABOLIC Collected: 10/31/2017 Status: F Source: [place]FILE [place] [place] 11:35 AM [facility] [place] REPOSITORY TYPE CODE TESTS RESULT OUT OF RANGE REFERENCE UNITS LAB L501.0100 74-106 mg/dL High GLU 397 Result Comment: Glucose result greater than or equal to 200 mg/dL suggests DIABETES MELLITUS per A.D.A. criteria. Please note revised GLUCOSE reference range effective 2017. LAB L501.1000 7-18 mg/dL High BUN 25 LAB L501.1100 0.55-1.02 mg/dL Normal CREAT,SERUM 0.97 Result Comment: The validity of the calculated GFR AND GFRAA in patients over 70 years has not been determined. Clinical correlation is essential. LAB L501.1110 >60 mL/min Normal EST GFR 65 Result Comment: Non- GFR Calc LAB L501.1115 >60 mL/min Normal EST GFR - AA 79 Result Comment: GFR Calc LAB L501.1300 10-20 RATIO High BUN/CRE 25.8 LAB L501.2200 8.5-10.1 mg/dL CA Normal 8.7 LAB L501.5300 136-145 mmol/L Low NA 133 LAB L501.5600 3.5-5.1 mmol/L K Normal 4.2 LAB L501.5900 98-107 mmol/L Low CL 96 LAB L501.6100 21.0-32.0 mmol/L Normal CO2 32.0 LAB L501.6200 5-15 Normal GAP 5 Performed By: #### L500.2500, L500.3400 #### [facility] [address] [place], [place], [id number] LIVER PROFILE Collected: 10/31/2017 Status: F Source: [place] 11:35 AM [facility] [place] REPOSITORY TYPE CODE TESTS RESULT OUT OF RANGE REFERENCE UNITS LAB L501.1500 6.4-8.2 g/dL Normal T PROT 7.9 LAB L501.1800 3.2-5.0 g/dL Normal ALB 3.6 LAB L501.1950 2.2-4.2 g/dL High GLOB 4.3 LAB L501.4100 15-37 U/L Low AST 13 LAB L501.4305 45-117 U/L Normal ALK P 96 LAB L501.4405 13-56 U/L Normal ALT 25 LAB L501.4600 0.20-1.00 mg/dL Normal T BILI 0.30 LAB L501.4700 0.00-0.30 mg/dL Normal D BILI 0.10 Performed By: #### L500.2500, L500.3400 #### [facility] [address] [place], [place], [id number] PROGRESS Observed: 10/27/2017 Status: COMPLETED Source: [place] [address]:04 PM [facility] REPOSITORY HNO ID: [id number] Author: Isha Servin (Sw) Service: (none) Author 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 Today's visit includes: patient not present TOPICS ADDRESSED: coping/support; HILARIO called patient since she is scheduled for chemotherapy education tomorrow. HILARIO left a message for patient explaining that she would typically meet with patient following this appointment, but SW will be out of the office Tuesday and Tuesday. HILARIO encouraged patient to call back today before 5:00 or leave any information/needs with rn palliative care at meeting tomorrow and SW will call patient Tuesday upon return. PLAN: Continue follow up as needed F/U APPOINTMENT: ANNAMARIA Nunez CNSW Observed: 10/27/2017 Status: COMPLETED Source: [place] 12:00 AM [facility] REPOSITORY Social Work (DANYEL) PEDRO LUIS WILCOX ([id number]) 1970 F Date Time Provider Department 10/27/17 ISHA SERVIN (SW) During your visit today, we recorded the following information about you: ANNAMARIA Schroeder 10/27/2017 3:05 PM Signed SOCIAL WORK FOLLOW UP NOTE: [facility] Date of service: October 27, 2017 Laneypatti Wilcox is being seen for a follow up social work visit. Today's visit includes: patient not present TOPICS ADDRESSED: coping/support; HILARIO called patient since she is scheduled for chemotherapy education tomorrow. HILARIO left a message for patient explaining that she would typically meet with patient following this appointment, but SW will be out of the office Tuesday and Tuesday. HILARIO encouraged patient to call back today before 5:00 or leave any information/needs with rn palliative care at meeting tomorrow and SW will call patient Tuesday upon return. PLAN: Continue follow up as needed F/U APPOINTMENT: PRANNAMARIA Bosch Allergies As of Date: 10/27/2017 (No Known Allergies) Date Reviewed: 10/25/2017 Reviewed by: Veronica Harris - Fully Assessed Reason for Visit: Social Work Services [507] Prescriptions as of 10/27/2017 Sig: METOCLOPRAMIDE 10 MG TABLET Take 1 tablet by mouth every * GABAPENTIN 300 MG CAPSULE Take 1 capsule by mouth three* TIMOLOL 0.5 % EYE DROPS Use 1 Drop in both eyes once * DICYCLOMINE 20 MG TABLET Take 20 mg by mouth every 8 h* LORAZEPAM 1 MG TABLET Take 1 tablet by mouth every * LIDOCAINE-PRILOCAINE 2.5 %-2.* Apply 1 application to affect* CITALOPRAM 20 MG TABLET Take 1 tablet by mouth once d* CLONAZEPAM 0.5 MG TABLET 1 tablet twice daily. PRN NITROFURANTOIN MONOHYDRATE AND * Take 100 mg by mouth twice da* EMPAGLIFLOZIN 10 MG TABLET Take 10 mg by mouth once gamaliel* VITAMIN B COMPLEX CAPSULE Take 1 capsule by mouth twice* CREON ORAL Take 6,000 Units by mouth. Wi* VALACYCLOVIR 500 MG TABLET Take 500 mg by mouth as neede* ERGOCALCIFEROL (VITAMIN D2) 5* Take 50,000 Units by mouth on* * INSULIN GLARGINE (U-100) 100 * Take 50 in am and 70 units in* * HUMALOG KWIKPEN (U-100) INSUL* 15 in am, 15 noon, 20 in philip Problem List As Of Date 10/27/2017 Noted Resolved THYROID NODULE [E04.1] INVALID FOR* More... Anxiety State, Unspecified [F41.1] 01/22/2009 Depressive Disorder, not Elsewhere Classified [* Priority: Moderate More... DM w/o complication type II, uncontrolled [E11.*INVALID FOR* Priority: Severe More... Other Malaise and Fatigue [R53.81, R53.83] INVALID FOR*01/22/2009 More... HYPERLIPIDEMIA NEC/NOS [E78.5] INVALID FOR* FIBROMYALGIA [JPS4467] INVALID FOR* Priority: Moderate OVERWEIGHT [E66.9] INVALID FOR* OTHER HAMMER TOE [M20.40] INVALID FOR* More... URIN TRACT INFECTION RECURRENT [N39.0] INVALID FOR*01/21/2016 More... GENITAL HERPES NOS [A60.00] INVALID FOR* Tobacco Use Disorder [F17.200] INVALID FOR* Priority: Moderate More... CONGENITAL PES PLANUS [Q66.50] INVALID FOR* Displacement of Lumbar Intervertebral Disc with*INVALID FOR* Priority: Moderate More... More... Routine Gynecological Examination [Z01.419] INVALID FOR* Class: Chronic More... 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*INVALID FOR* Malignant neoplasm metastatic to left lung (HCC*INVALID FOR* Examination of participant in clinical trial [Z*INVALID FOR* Encounter Status:Closed by ISHA SERVIN on 10/27/17 PROGRESS Observed: 10/25/2017 Status: COMPLETED Source: [place] 12:23 PM [facility] REPOSITORY O ID: [id number] Author: Clifford Barakat Service: (none) Author Type: Physician Type: Progress Notes Filed: 10/25/2017 12:28 PM Note Text: Diagnosis: 1) Breast cancer. 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 Her mother has a h/o breast cancer, so patient had been undergoing annual mammogram. The patient underwent a screening mammogram on 08/30/2013. A 1.6 cm nodular density was appreciated in the tail of the right breast. She underwent targeted ultrasound the same day. That study revealed a 9 mm hypoechoic solid nodule at the 10:00 position of the breast measuring 6 cm from the nipple. Stereotactic core needle biopsy on 09/13/2013. The tissue revealed invasive poorly differentiated ductal carcinoma. The specimen was negative for both estrogen and progesterone receptors. Both were quantified at 0%. HER-2 was 2+ an immunostain and nonamplified by FISH testing. The patient underwent an MRI of the breast on 09/20/2013. The study revealed that the left breast had no suspicious findings. In the right breast there was a 1.6 cm abnormal enhancing mass in the superior outer aspect of the right breast approximately 10 cm from the nipple. This correlated to the biopsy area. Underwent partial mastectomy with SLN biopsy 10/05/2013. The final pathology revealed an invasive poorly differentiated ductal carcinoma measuring 1.3 cm in size. There was a single focus. DCIS was present measuring 2 mm in maximum dimension. The grade of the cancer was 3. Margins were negative. The closest was 6 mm. Lymphovascular invasion was not identified. One sentinel lymph node was retrieved. It was negative. Received two cycles of TC. Admitted for severe PAGE. Admitted 12/17/2013 due to increase in thigh pain and dyspnea. Markedly elevated CK. No increase in serum Cr. Chemotherapy stopped after cycle #2. Was seen by ornamental plasterer helper at . 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 Completed radiation 03/26/2014. She started developing intermittent shortness of breath with exertion. She also has a cough that is a dry cough. She was taken off her PAM inhibitor but the cough has not changed. She had a PA and lateral chest film done on 10/22/2016 that demonstrated no abnormality. She then underwent a CT scan the chest without IV contrast on 11/06/2016. Two nodules were observed in the pulmonary parenchyma. One was located in the right lower lobe and the second was located in the lingular lobe. Each measured 8 mm and were thought to be consistent with metastatic disease. CT of the abdomen and pelvis on 11/20/2016 as well as repeat CT chest with IV contrast demonstrated a thick walled gallbladder suspicious for cystitis, chronic and redemonstration of the lung nodules. No concern for metastatic disease in the abdomen or pelvis. Brain MRI on 11/23/2016 was normal. PET scan demonstrated multiple foci of increased glucose concentration manifested in the right axilla, significant region generating a standard uptake value of 7.6. The maximal axial diameter the largest individual hypermetabolic soft tissue density on review of the CT of the thorax was approximately 23.1 mm in transverse dimension. An ultrasound of the right axilla and subclavicular region on 12/02/2016 demonstrated that within the right axilla there was a cluster of abnormal appearing hypoechoic nodules. The largest measured 2.3 x 1.50 1.4 cm. In the subclavicular region there was also evidence of several hypoechoic nodules the largest measuring 2.75 x 2.85 1.5 cm. She then underwent a right axillary core needle biopsy on 12/07/2016. The pathology demonstrated a poorly differentiated metastatic carcinoma. The specimen was negative for both ER and KS as well as HER- 2. I discussed the case with the pathologist today who told me that histologically/morphologically the specimen was consistent with her previous specimen of breast cancer. The pathologist will issue an addendum quantifying ER and KS 0 as well as HER-2 at 0. She had a stress test and echocardiogram about 3 years ago and had no evidence of coronary artery disease. She had LV concentric hypertrophy with preserved ejection fraction. She underwent port placement along with right axillary lymph node dissection on 12/24/2016. MICROSCOPIC DIAGNOSIS Right axillary lymph nodes, regional lymph adenectomy: One out of seven lymph nodes with metastatic poorly differentiated carcinoma. See comment. COMMENT Immunohistochemistry ([id number]) does not rule out a breast primary. There is focal perinodal extension of tumor. Clinical correlation is suggested. ANTIBODY / CLONE RESULT Block 1 Mammaglobin (31A5) negative GATA3 (L50-823) positive, rare, dim CK8 (61bthuC37) positive Ki-67 (30-9) positive, moderate to high ER (6F11) negative 0% KS (1E2) negative 0% CK19 (A53-B/A2.26) positive Cyclin D1/BCL-1 (SP4) positive CEA (11-7/TF-3HB-1) negative SHELLI (E29) positive CK20 (KS20.8) negative Villin (CWWB1) negative RCC (PN-15) negative CA125 (OC125) positive Previous therapy for metastatic disease: 1) Cisplatin (+/- PARP inhibitor on trial). She underwent a CT scan of the neck, chest abdomen and pelvis at [facility] on 10/05/2017. The CT of the neck revealed an abnormal enhancing right subclavicular lymph node measuring 2.6 x 2.0 x 2.2 cm. There were no other significant abnormalities. CT of the chest corroborated the CT neck findings with a 2.6 x 1.5 mm lymph node in the right supraclavicular region. The abdominopelvic images revealed no evidence of metastatic disease. Bone scan done 10/07/2017 showed some increase in radiopharmaceutical concentration in the distal sternum and in the right posterior and anterior lateral ribs potentially representing limited skeletal metastatic disease. Came off trial. Presents for ongoing oncologic management. Interim history: She was seen at [facility] and did not qualify for the 2 clinical trials available due to her pre-existing diabetic neuropathy and history of type 1 diabetes. She offers no complaints today. She says the neuropathy of the lower extremities is manifested by numbness only. No negative symptoms. Numbness extends to the knees bilaterally. It got appreciably worse several years ago after she underwent bilateral Achilles tendon repair and subsequent cast removal. Subjectively she has mild numbness in the fingertips which is a little bit worse. She says when counting money she has to be careful because she can't necessarily feel the paper. She also walks with her head down and watches where her feet gland due to concerns about possibly following her stumbling if she is not watching where she goes. She was also recently diagnosed with gastric paresis. No nausea currently. PMH, medications and allergies as below personally reviewed by me today. Any changes documented in appropriate section. ROS: Constitutional: Denies episodes of fever and night sweats. Neuro: Denies DOZIER, vertigo, dizziness and imbalance. HEENT: No recent change in voice, vision or hearing. Resp: See above. CVS: Denies exertional chest pain, PND, orthopnea and LE edema. GI: Denies dysgeusia. Denies symptoms of stomatitis. Denies dysphagia and odynophagia. Denies reflux, change in bowel habits and abdominal pain. : Denies dysuria or gross hematuria. No symptoms of bladder outlet obstruction. Endo: Denies hot flashes. Denies polyuria and polydipsia. Denies heat and cold intolerance. Musculoskeletal: See above. Derm: Denies rash. Denies jaundice and diffuse pruritis. Heme: Denies unusual bleeding and unexplained bruising. Psych: Normal mood. PHYSICAL EXAM: Vitals: Blood pressure 158/87, pulse 100, temperature 36.8 ?C (98.2 ?F), temperature source Oral, weight 89.4 kg (197 lb). Well-appearing and in no acute distress. EYES: Sclerae are anicteric bilaterally. ENT: Oral mucosa is unremarkable. There is no sign of thrush or mucositis. NECK: Supple. LYMPHATIC: There is a new firmly enlarged mobile right supraclavicular lymph node measuring approximately 2 cm close to the base of the neck. No other peripheral adenopathy. Specifically no other supraclavicular, cervical, axillary or inguinal adenopathy. RESPIRATORY: Inspiratory breath sounds are of normal intensity in all norris. No rales, wheezes or rhonchi. CARDIOVASCULAR: Rhythm is regular. Normal intensity S1/S2. There is no gallop or murmur. ABDOMEN: The abdomen is nondistended. No organomegaly. No tenderness. Extremities: No swelling or edema. SKIN: No jaundice or rash. No petechiae. NEUROLOGIC: station attendant II-XII are grossly intact. No focal motor weakness. MUSCULOSKELETAL: No muscle wasting. 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 Comprehensive BRCA 1 and 2 testing (scanned 12/05/2013) no mutation Complicated by severe myositis during adjuvant chemotherapy. -KPS is 90%. -Biopsy-proven local regional recurrence. -Sensory neuropathy stable to slightly worse in the fingertips. -Since not a candidate for clinical trials, I again discussed with her the use of gemcitabine and carboplatin. I discussed the rationale, logistics, potential risks (including ), benefits and alternatives, as well as the personnel involved in the administration of gem/carboplatin. I answered her questions in detail and she verbalized understanding and agreed with the recommended therapy. Please see the electronic consent document for details of doses and schedule. Plan: -Plan to begin treatment on Wednesday 11/01. -Monitor right supraclavicular lymph node by exam. -CT scan following 2 cycles. Clifford Barakat DO CNOVSP Observed: 10/25/2017 Status: COMPLETED Source: [place] 10:50 AM [facility] REPOSITORY Visit (SP) Office (DANYEL) PEDRO LUIS WILCOX ([id number]) 1970 F Date Time Provider Department 10/25/17 10:50 AM CLIFFORD BARAKAT During your visit today, we recorded the following information about you: Temperature Pulse Blood pressure Weight 98.2 degrees 100/minute 158/87 89.4 kg Clifford Barakat DO 10/25/2017 12:28 PM Signed Diagnosis: 1) Breast cancer. 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 Her mother has a h/o breast cancer, so patient had been undergoing annual mammogram. The patient underwent a screening mammogram on 08/30/2013. A 1.6 cm nodular density was appreciated in the tail of the right breast. She underwent targeted ultrasound the same day. That study revealed a 9 mm hypoechoic solid nodule at the 10:00 position of the breast measuring 6 cm from the nipple. Stereotactic core needle biopsy on 09/13/2013. The tissue revealed invasive poorly differentiated ductal carcinoma. The specimen was negative for both estrogen and progesterone receptors. Both were quantified at 0%. HER-2 was 2+ an immunostain and nonamplified by FISH testing. The patient underwent an MRI of the breast on 09/20/2013. The study revealed that the left breast had no suspicious findings. In the right breast there was a 1.6 cm abnormal enhancing mass in the superior outer aspect of the right breast approximately 10 cm from the nipple. This correlated to the biopsy area. Underwent partial mastectomy with SLN biopsy 10/05/2013. The final pathology revealed an invasive poorly differentiated ductal carcinoma measuring 1.3 cm in size. There was a single focus. DCIS was present measuring 2 mm in maximum dimension. The grade of the cancer was 3. Margins were negative. The closest was 6 mm. Lymphovascular invasion was not identified. One sentinel lymph node was retrieved. It was negative. Received two cycles of TC. Admitted for severe PAGE. Admitted 12/17/2013 due to increase in thigh pain and dyspnea. Markedly elevated CK. No increase in serum Cr. Chemotherapy stopped after cycle #2. Was seen by ornamental plasterer helper at . 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 Completed radiation 03/26/2014. She started developing intermittent shortness of breath with exertion. She also has a cough that is a dry cough. She was taken off her PAM inhibitor but the cough has not changed. She had a PA and lateral chest film done on 10/22/2016 that demonstrated no abnormality. She then underwent a CT scan the chest without IV contrast on 11/06/2016. Two nodules were observed in the pulmonary parenchyma. One was located in the right lower lobe and the second was located in the lingular lobe. Each measured 8 mm and were thought to be consistent with metastatic disease. CT of the abdomen and pelvis on 11/20/2016 as well as repeat CT chest with IV contrast demonstrated a thick walled gallbladder suspicious for cystitis, chronic and redemonstration of the lung nodules. No concern for metastatic disease in the abdomen or pelvis. Brain MRI on 11/23/2016 was normal. PET scan demonstrated multiple foci of increased glucose concentration manifested in the right axilla, significant region generating a standard uptake value of 7.6. The maximal axial diameter the largest individual hypermetabolic soft tissue density on review of the CT of the thorax was approximately 23.1 mm in transverse dimension. An ultrasound of the right axilla and subclavicular region on 12/02/2016 demonstrated that within the right axilla there was a cluster of abnormal appearing hypoechoic nodules. The largest measured 2.3 x 1.50 1.4 cm. In the subclavicular region there was also evidence of several hypoechoic nodules the largest measuring 2.75 x 2.85 1.5 cm. She then underwent a right axillary core needle biopsy on 12/07/2016. The pathology demonstrated a poorly differentiated metastatic carcinoma. The specimen was negative for both ER and KS as well as HER-2. I discussed the case with the pathologist today who told me that histologically/morphologically the specimen was consistent with her previous specimen of breast cancer. The pathologist will issue an addendum quantifying ER and KS 0 as well as HER-2 at 0. She had a stress test and echocardiogram about 3 years ago and had no evidence of coronary artery disease. She had LV concentric hypertrophy with preserved ejection fraction. She underwent port placement along with right axillary lymph node dissection on 12/24/2016. MICROSCOPIC DIAGNOSIS Right axillary lymph nodes, regional lymph adenectomy: One out of seven lymph nodes with metastatic poorly differentiated carcinoma. See comment. COMMENT Immunohistochemistry ([id number]) does not rule out a breast primary. There is focal perinodal extension of tumor. Clinical correlation is suggested. ANTIBODY / CLONE RESULT Block 1 Mammaglobin (31A5) negative GATA3 (L50-823) positive, rare, dim CK8 (69hihqO83) positive Ki-67 (30-9) positive, moderate to high ER (6F11) negative 0% KS (1E2) negative 0% CK19 (A53-B/A2.26) positive Cyclin D1/BCL-1 (SP4) positive CEA (11-7/TF-3HB-1) negative SHELLI (E29) positive CK20 (KS20.8) negative Villin (CWWB1) negative RCC (PN-15) negative CA125 (OC125) positive Previous therapy for metastatic disease: 1) Cisplatin (+/- PARP inhibitor on trial). She underwent a CT scan of the neck, chest abdomen and pelvis at [facility] on 10/05/2017. The CT of the neck revealed an abnormal enhancing right subclavicular lymph node measuring 2.6 x 2.0 x 2.2 cm. There were no other significant abnormalities. CT of the chest corroborated the CT neck findings with a 2.6 x 1.5 mm lymph node in the right supraclavicular region. The abdominopelvic images revealed no evidence of metastatic disease. Bone scan done 10/07/2017 showed some increase in radiopharmaceutical concentration in the distal sternum and in the right posterior and anterior lateral ribs potentially representing limited skeletal metastatic disease. Came off trial. Presents for ongoing oncologic management. Interim history: She was seen at main campus and did not qualify for the 2 clinical trials available due to her pre-existing diabetic neuropathy and history of type 1 diabetes. She offers no complaints today. She says the neuropathy of the lower extremities is manifested by numbness only. No negative symptoms. Numbness extends to the knees bilaterally. It got appreciably worse several years ago after she underwent bilateral Achilles tendon repair and subsequent cast removal. Subjectively she has mild numbness in the fingertips which is a little bit worse. She says when counting money she has to be careful because she can't necessarily feel the paper. She also walks with her head down and watches where her feet gland due to concerns about possibly following her stumbling if she is not watching where she goes. She was also recently diagnosed with gastric paresis. No nausea currently. PMH, medications and allergies as below personally reviewed by me today. Any changes documented in appropriate section. ROS: Constitutional: Denies episodes of fever and night sweats. Neuro: Denies DOZIER, vertigo, dizziness and imbalance. HEENT: No recent change in voice, vision or hearing. Resp: See above. CVS: Denies exertional chest pain, PND, orthopnea and LE edema. GI: Denies dysgeusia. Denies symptoms of stomatitis. Denies dysphagia and odynophagia. Denies reflux, change in bowel habits and abdominal pain. : Denies dysuria or gross hematuria. No symptoms of bladder outlet obstruction. Endo: Denies hot flashes. Denies polyuria and polydipsia. Denies heat and cold intolerance. Musculoskeletal: See above. Derm: Denies rash. Denies jaundice and diffuse pruritis. Heme: Denies unusual bleeding and unexplained bruising. Psych: Normal mood. PHYSICAL EXAM: Vitals: Blood pressure 158/87, pulse 100, temperature 36.8 ?C (98.2 ?F), temperature source Oral, weight 89.4 kg (197 lb). Well-appearing and in no acute distress. EYES: Sclerae are anicteric bilaterally. ENT: Oral mucosa is unremarkable. There is no sign of thrush or mucositis. NECK: Supple. LYMPHATIC: There is a new firmly enlarged mobile right supraclavicular lymph node measuring approximately 2 cm close to the base of the neck. No other peripheral adenopathy. Specifically no other supraclavicular, cervical, axillary or inguinal adenopathy. RESPIRATORY: Inspiratory breath sounds are of normal intensity in all norris. No rales, wheezes or rhonchi. CARDIOVASCULAR: Rhythm is regular. Normal intensity S1/S2. There is no gallop or murmur. ABDOMEN: The abdomen is nondistended. No organomegaly. No tenderness. Extremities: No swelling or edema. SKIN: No jaundice or rash. No petechiae. NEUROLOGIC: station attendant II-XII are grossly intact. No focal motor weakness. MUSCULOSKELETAL: No muscle wasting. 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 Comprehensive BRCA 1 and 2 testing (scanned 12/05/2013) no mutation Complicated by severe myositis during adjuvant chemotherapy. -KPS is 90%. -Biopsy-proven local regional recurrence. -Sensory neuropathy stable to slightly worse in the fingertips. -Since not a candidate for clinical trials, I again discussed with her the use of gemcitabine and carboplatin. I discussed the rationale, logistics, potential risks (including ), benefits and alternatives, as well as the personnel involved in the administration of gem/carboplatin. I answered her questions in detail and she verbalized understanding and agreed with the recommended therapy. Please see the electronic consent document for details of doses and schedule. Plan: -Plan to begin treatment on Wednesday 11/01. -Monitor right supraclavicular lymph node by exam. -CT scan following 2 cycles. DO Clifford Banda DO 10/25/2017 12:34 PM Signed Addended by: CLIFFORD BARAKAT DO on: 10/25/2017 12:34 PM Modules accepted: Orders Referring Provider: CLIFFORD BARAKAT [[id number]] Allergies As of Date: 10/25/2017 (No Known Allergies) Date Reviewed: 10/25/2017 Reviewed by: Veronica Harris - Fully Assessed Reason for Visit: Established Patient [175] Primary Visit Diagnosis:Malignant neoplasm of upper-outer quadrant of right breast in female, estrogen receptor negative (HCC) [C50.411, Z17.1] Other Visit Diagnosis:Malignant neoplasm metastatic to left lung (HCC) [C78.02] Order(s):KULWINDER CBC AND DIFF [SQWCBCDF] Order #: [id number] STANDING BMP PLUS FHC [SQPICBMP] Order #: [id number] STANDING HEPATIC FUNCTION PNL [SQHFP] Order #: [id number] STANDING metoclopramide HCl (REGLAN) 10 mg tabletTake 1 tablet by mouth every 6 hours as needed.Disp: 60 tabletRfl: 2 Follow-up and Disposition History Recorded Prescriptions as of 10/25/2017 Sig: METOCLOPRAMIDE 10 MG TABLET Take 1 tablet by mouth every * GABAPENTIN 300 MG CAPSULE Take 1 capsule by mouth three* TIMOLOL 0.5 % EYE DROPS Use 1 Drop in both eyes once * DICYCLOMINE 20 MG TABLET Take 20 mg by mouth every 8 h* LORAZEPAM 1 MG TABLET Take 1 tablet by mouth every * LIDOCAINE-PRILOCAINE 2.5 %-2.* Apply 1 application to affect* CITALOPRAM 20 MG TABLET Take 1 tablet by mouth once d* CLONAZEPAM 0.5 MG TABLET 1 tablet twice daily. PRN NITROFURANTOIN MONOHYDRATE AND * Take 100 mg by mouth twice da* EMPAGLIFLOZIN 10 MG TABLET Take 10 mg by mouth once gamaliel* VITAMIN B COMPLEX CAPSULE Take 1 capsule by mouth twice* CREON ORAL Take 6,000 Units by mouth. Wi* VALACYCLOVIR 500 MG TABLET Take 500 mg by mouth as neede* ERGOCALCIFEROL (VITAMIN D2) 5* Take 50,000 Units by mouth on* * INSULIN GLARGINE (U-100) 100 * Take 50 in am and 70 units in* * HUMALOG KWIKPEN (U-100) INSUL* 15 in am, 15 noon, 20 in philip Problem List As Of Date 10/25/2017 Noted Resolved THYROID NODULE [E04.1] INVALID FOR* More... Anxiety State, Unspecified [F41.1] 01/22/2009 Depressive Disorder, not Elsewhere Classified [* Priority: Moderate More... DM w/o complication type II, uncontrolled [E11.*INVALID FOR* Priority: Severe More... Other Malaise and Fatigue [R53.81, R53.83] INVALID FOR*01/22/2009 More... HYPERLIPIDEMIA NEC/NOS [E78.5] INVALID FOR* FIBROMYALGIA [[id number]] INVALID FOR* Priority: Moderate OVERWEIGHT [E66.9] INVALID FOR* OTHER HAMMER TOE [M20.40] INVALID FOR* More... URIN TRACT INFECTION RECURRENT [N39.0] INVALID FOR*01/21/2016 More... GENITAL HERPES NOS [A60.00] INVALID FOR* Tobacco Use Disorder [F17.200] INVALID FOR* Priority: Moderate More... CONGENITAL PES PLANUS [Q66.50] INVALID FOR* Displacement of Lumbar Intervertebral Disc with*INVALID FOR* Priority: Moderate More... More... Routine Gynecological Examination [Z01.419] INVALID FOR* Class: Chronic More... 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*INVALID FOR* Malignant neoplasm metastatic to left lung (HCC*INVALID FOR* Examination of participant in clinical trial [Z*INVALID FOR* Encounter Status:Closed by CLIFFORD BARAKAT DO [facility]25/[facility]: 10/25/2017 Status: COMPLETED Source: [place] 12:00 AM [facility] REPOSITORY Telephone (DANYEL) PEDRO LUIS WILCOX ([id number]) 1970 F Date Time Provider Department 10/25/17 CLIFFORD BARAKAT During your visit today, we recorded the following information about you: Roselyn Wiley Psr 10/25/2017 2:00 PM Signed [facility] calling stating they are needing clinical notes on why patient is needing chemo, what type of chemo, chemocodes and any precertification if needed.. Please fax to [phone]. Federica Pimentel LPN 10/25/2017 2:08 PM Signed All lab and chemo orders faxed to [facility] infusion suite earlier. Orders and last office note faxed to number below as requested. [facility] is responsible for the precert, patient requesting to have service there. Federica Vásquez, RN, RN 10/28/2017 10:31 AM Signed Contacted [facility] to see if patient has been scheduled for chemo and was transferred to infusion nurse. Nurse confirmed that pre-certification has been completed but for future reference, [facility] is responsible for patient precert. We do not precert for outside referring doctors. Nurse stated she is faxing over forms that will need to be filled out prior to each infusion because their policies are changing. Fax number given to nurse. Nurse verified that she has orders for labs/chemo. Patient scheduled for 11/01 at 9:00am at [facility]. Patient informed during chemo ed and stated understanding. Allergies As of Date: 10/25/2017 (No Known Allergies) Date Reviewed: 10/25/2017 Reviewed by: Veronica Harris - Fully Assessed Reason for Visit: Release Of Medical Records [2017] Prescriptions as of 10/25/2017 Sig: METOCLOPRAMIDE 10 MG TABLET Take 1 tablet by mouth every * GABAPENTIN 300 MG CAPSULE Take 1 capsule by mouth three* TIMOLOL 0.5 % EYE DROPS Use 1 Drop in both eyes once * DICYCLOMINE 20 MG TABLET Take 20 mg by mouth every 8 h* LORAZEPAM 1 MG TABLET Take 1 tablet by mouth every * LIDOCAINE-PRILOCAINE 2.5 %-2.* Apply 1 application to affect* CITALOPRAM 20 MG TABLET Take 1 tablet by mouth once d* CLONAZEPAM 0.5 MG TABLET 1 tablet twice daily. PRN NITROFURANTOIN MONOHYDRATE AND * Take 100 mg by mouth twice da* EMPAGLIFLOZIN 10 MG TABLET Take 10 mg by mouth once gamaliel* VITAMIN B COMPLEX CAPSULE Take 1 capsule by mouth twice* CREON ORAL Take 6,000 Units by mouth. Wi* VALACYCLOVIR 500 MG TABLET Take 500 mg by mouth as neede* ERGOCALCIFEROL (VITAMIN D2) 5* Take 50,000 Units by mouth on* * INSULIN GLARGINE (U-100) 100 * Take 50 in am and 70 units in* * HUMALOG KWIKPEN (U-100) INSUL* 15 in am, 15 noon, 20 in philip Problem List As Of Date 10/25/2017 Noted Resolved THYROID NODULE [E04.1] INVALID FOR* More... Anxiety State, Unspecified [F41.1] 01/22/2009 Depressive Disorder, not Elsewhere Classified [* Priority: Moderate More... DM w/o complication type II, uncontrolled [E11.*INVALID FOR* Priority: Severe More... Other Malaise and Fatigue [R53.81, R53.83] INVALID FOR*01/22/2009 More... HYPERLIPIDEMIA NEC/NOS [E78.5] INVALID FOR* FIBROMYALGIA [[id number]] INVALID FOR* Priority: Moderate OVERWEIGHT [E66.9] INVALID FOR* OTHER HAMMER TOE [M20.40] INVALID FOR* More... URIN TRACT INFECTION RECURRENT [N39.0] INVALID FOR*01/21/2016 More... GENITAL HERPES NOS [A60.00] INVALID FOR* Tobacco Use Disorder [F17.200] INVALID FOR* Priority: Moderate More... CONGENITAL PES PLANUS [Q66.50] INVALID FOR* Displacement of Lumbar Intervertebral Disc with*INVALID FOR* Priority: Moderate More... More... Routine Gynecological Examination [Z01.419] INVALID FOR* Class: Chronic More... 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*INVALID FOR* Malignant neoplasm metastatic to left lung (HCC*INVALID FOR* Examination of participant in clinical trial [Z*INVALID FOR* Encounter Status:Closed by FEDERICA PIMENTEL LPN on 10/25/17 PROGRESS Observed: 10/20/2017 Status: COMPLETED Source: [place] 4:48 PM [facility] [place] REPOSITORY HNO ID: [id number] Author: Sawyer Toussaint Service: (none) Author Type: Physician Type: Progress Notes Filed: 10/20/2017 8:33 PM Note Text: Breast Cancer Consult Note SERVICE DATE: October 20, 2017 CHIEF COMPLAINT: Pedro Luis Wilcox is a 47 year old female referred by Clifford Barakat MD, for my opinion regarding the management of metastatic breast cancer. HISTORY OF PRESENT ILLNESS: Ms Barakat is a 47 year old woman with history of right sided ER-negative, KS-negative, HER2-negative Stage I breast cancer diagnosed in 2013 with subsequent metastatic recurrence diagnosed in 2017. She presents today for consideration of clinical trial options. Patient was initially found to have a right sided breast mass in 2013 at the time of a screening mammogram. At the time of biopsy on 09/13/13, she was noted to have an invasive ductal carcinoma, grade 3, ER-negative, KS-negative, HER2-negative. On 10/05/13, she underwent right partial mastectomy/SLNBx with surgical pathology demonstrating a 1.3cm focus of IDC, grade 3, 0/1 sentinel lymph node involved. She received 2 cycles of adjuvant TC chemotherapy however treatment was complicated by severe LE pain with development of myositis(unclear if related to chemotherapy, inherited or other cause) with elevated CK. She received no further chemotherapy. Radiation was completed in 03/2014. In 2016, patient developed cough and shortness of breath. After treatment for typical causes of these symptoms, she had imaging done which revealed 2 lung nodules as well as FDG avid nodules in the right axilla consistent with disease recurrence. She underwent biopsy on 12/07/16 showing metastatic TNBC involving axillary node and then had R ALND on 12/24/16. She started treatment for metastatic disease on SWOG 1416 (cisplatin +/- veliparib; oral component blinded). She received 4 cycles of the chemotherapy with each cycle being complicated by severe nausea, dehydration related to the chemotherapy. She was hospitalized each time for these symptoms and stopped the IV portion of chemotherapy in April 2017. She continued on the oral component of therapy until September 2017 at which time scans showed progression in a right supraclavicular lymph node and bone (sternum, right sided ribs). She has discussed this with Dr Barakat and the plan is to investigate clinical trial options and if no good options, plan for standard of care therapy with carbo/gemcitabine. Patient reports that her last dose of trial therapy was approximately 2 weeks ago. She currently does not have symptoms from treatment or the disease. She has persistent neuropathy from her DM and prior chemotherapy, impairs her walking and causes her to have trouble using car keys at times. She continues to have shortness of breath and is limited in walking a block at most due to this. She and her and moving into a one floor home because she has trouble with stairs. PAST MEDICAL HISTORY: PAST MEDICAL HISTORY Diagnosis Date - Abdominal pain, epigastric - Abnormal mammogram - Anxiety state, unspecified - Breast cancer, right (HCC) - Depressive disorder, not elsewhere classified - Diabetes mellitus without mention of complication - Type I (juvenile type) diabetes mellitus without mention of complication, uncontrolled PAST SURGICAL HISTORY: PAST SURGICAL HISTORY Procedure Laterality Date - BREAST BIOPSY W/STEREOTACTIC GUIDANCE 09/13/13 - BX/REMV,LYMPH NODE,DEEP AXILL 10/05/13 right - EGD W/O BRSH SPECIMEN W/BX 02/12/13 - EXTRACTION ERUPTED TOOTH/EXR teeth, various times - INTRAOP SENTINEL LYMPH ID W/DYE NJX 10/05/13 right - MASTECTOMY, SUBCUTANEOUS 10/05/13 right - PAST SURGICAL HISTORY OF 02/20 Thyroid nodule bx; colloid nodule, no dysplasia noted - PAST SURGICAL HISTORY OF buionectomy on left toe - SURGICAL BREAST SPECIMAN 09/13/13 - TOTAL ABDOM HYSTERECTOMY 05/25/2005 Hysterectomy, [facility] (for fibroids); Dr. Hurt CURRENT MEDICATIONS: gabapentin (NEURONTIN) 300 mg capsule Take 1 capsule by mouth three times daily for 30 days. timolol hemihydrate (BETIMOL) 0.5 % ophthalmic solution Use 1 Drop in both eyes once daily. dicyclomine (BENTYL) 20 mg tablet Take 20 mg by mouth every 8 hours as needed. metoclopramide HCl (REGLAN) 10 mg tablet Take 1 tablet by mouth every 6 hours as needed. LORazepam (ATIVAN) 1 mg tablet Take 1 tablet by mouth every 8 hours as needed for Anxiety (nausea). lidocaine-prilocaine (EMLA) cream Apply 1 application to affected area as needed. citalopram (CELEXA) 20 mg tablet Take 1 tablet by mouth once daily. clonazePAM (KLONOPIN) 0.5 mg tablet 1 tablet twice daily. PRN nitrofurantoin monohydrate and macrocrystal (MACROBID) 100 mg capsule Take 100 mg by mouth twice daily. Prn empagliflozin (JARDIANCE) 10 mg tablet Take 10 mg by mouth once daily. B Complex Vitamins capsule Take 1 capsule by mouth twice daily. LIPASE/PROTEASE/AMYLASE (CREON ORAL) Take 6,000 Units by mouth. With each meal valACYclovir 500 mg tablet Take 500 mg by mouth as needed. ergocalciferol, vitamin D2, (VITAMIN D) 50,000 unit capsule Take 50,000 Units by mouth once each week. insulin glargine (LANTUS) 100 unit/mL SUBCUTANEOUS injection Take 50 in am and 70 units in pm. insulin lispro,human rec.anlog(HUMALOG KWIKPEN 100 UNIT/ML SUB-Q PEN) 15 in am, 15 noon, 20 in philip ALLERGIES/INTOLERANCES: ALLERGIES No Known Allergies FAMILY HISTORY: FAMILY HISTORY Problem Relation Age of Onset - Diabetes Mother (MANY ON MOM'S SIDE) - Breast Cancer Mother several others on mom's side - Heart Father CAD/RI dx'd first age late 40's - Hypertension Father - pancreatic cancer [OTHER] Maternal Grandmother - Colon Cancer Other no 1st degree - Breast Cancer Other maternal cousin SOCIAL HISTORY: Patient and her live in the [facility]. She is not working and is a non-smoker. REVIEW OF SYSTEMS: Complete 10 system ROS done and negative except as stated above in the HPI. PHYSICAL EXAM: BP 158/68 Pulse 99 Temp 37.5 ?C (99.5 ?F) (Oral) Resp 16 Ht 172.6 cm (5' 7.95) Wt 91.8 kg (202 lb 6.4 oz) SpO2 98% BMI 30.82 kg/m2 Body mass index is 30.82 kg/m?. ECO- Restricted in physically strenuous activity. Carries out light duty. General: well appearing woman in NAD HEENT: Head normocephalic and atraumatic. EOMI. Oropharynx clear. Neck: supple, + right supraclavicular LAD palpated, no cervical adenopathy CV: RRR, normal S1 and S2, no m/r/g Pulm: lungs CTA b/l, no w/r/r Abdomen: soft, non-tender, non-distended, NABS. No palpable masses or hepatosplenomegaly IMAGING: Bone Scan (10/07/17): Increase in uptake at distal sternum, right posterior and anteriolateral ribs CT Neck, Chest, Abdomen, Pelvis (10/05/17): Abnormal enhancing right supraclavicular lymph node measuring 2.6 x 2.0 x 2.2cm No demonstrated abnormalities of lungs or pleura. No metastatic disease involving abdomen/pelvis. IMPRESSION: Ms Barakat is a 47 year old woman with history of right sided ER-negative, KS-negative, HER2-negative Stage I breast cancer diagnosed in 2014 with subsequent metastatic recurrence diagnosed in 2017. She presents today for consideration of clinical trial options. Her disease currently involves a right supraclavicular lymph node, sternum and ribs. STAGING: Cancer Staging Malignant neoplasm metastatic to left lung (HCC) Staging form: Cancer of the Lung - Pathologic: T0, N0, M1 - Signed by Sawyer Toussaint on 10/20/2017 PLAN: 1. We currently have the CASE 6115 study (pembrolizumab, carboplatin, abraxane) and Pfizer JAVELIN PARP MEDLEY study open at [facility]. Unfortunately, patient does not qualify for the CASE 6115 study due to severity of of her pre-existing neuropathy as well as history of DM which is likely Type 1 and thus autoimmune in nature. The Pfizer study is also not an option for Ms Wilcox due to prior progression after cisplatin based regimen and potential prior treatment with PARP inhibitor on SWOG 1416. Eligibility for both studies reviewed with our clinical trial nurses to confirm. 2. As patient is not currently a candidate for these studies, I recommended to her that she proceed with standard of care therapy as outline by Dr Barakat in the form of carboplatin/gemcitabine. We can keep in her mind for other clinical trials in the future, particularly those that involve immunotherapy as this is something that patient is very interested in. Patient was given my contact information and will call in the future with any questions or concerns. SIGNATURE: Sawyer Toussaint MD PATIENT NAME: Pedr oLuis Wilcox DATE: 10/20/2017 TIME: 4:48 PM cc: Clifford Barakat MD CNOVSP Observed: 10/20/2017 Status: COMPLETED Source: [place] 2:30 PM [facility] REPOSITORY Visit (SP) Office ([facility]) PEDRO LUIS WILCOX ([id number]) 1970 F Date Time Provider Department 10/20/17 2:30 PM SAWYER TOUSSAINTCA4 During your visit today, we recorded the following information about you: Temperature Pulse Respiration Blood pressure 99.5 degrees 99/minute 16/minute 158/68 Weight Height 91.8 kg 1.726 m Lamar Dumas Ma 10/20/2017 2:11 PM Signed Additional intake questions: Has the patient had nausea, vomiting, diarrhea, constipation, fatigue for > 1 week? Fatigue, Yes, MD Notified Does the patient have a decreased appetite? No Does patient want to see a Software Intern? No (yes to any of above refer patient to schedulers for dietitian appointment) ) Does patient have any new or increased numbness or tingling of extremities? Yes, pt states numbness and tingling in fingers of both hands and both feet Is patient interested in fertility information? No Does patient need any prescription refills? No Electronically Signed By: Lamar Toussaint MD 10/20/2017 8:33 PM Signed Breast Cancer Consult Note SERVICE DATE: October 20, 2017 CHIEF COMPLAINT: Pedro Luis Wilcox is a 47 year old female referred by Clifford Barakat MD, for my opinion regarding the management of metastatic breast cancer. HISTORY OF PRESENT ILLNESS: Ms Barakat is a 47 year old woman with history of right sided ER-negative, KS-negative, HER2-negative Stage I breast cancer diagnosed in 2013 with subsequent metastatic recurrence diagnosed in 2017. She presents today for consideration of clinical trial options. Patient was initially found to have a right sided breast mass in 2013 at the time of a screening mammogram. At the time of biopsy on 09/13/13, she was noted to have an invasive ductal carcinoma, grade 3, ER-negative, KS-negative, HER2-negative. On 10/05/13, she underwent right partial mastectomy/SLNBx with surgical pathology demonstrating a 1.3cm focus of IDC, grade 3, 0/1 sentinel lymph node involved. She received 2 cycles of adjuvant TC chemotherapy however treatment was complicated by severe LE pain with development of myositis(unclear if related to chemotherapy, inherited or other cause) with elevated CK. She received no further chemotherapy. Radiation was completed in 03/2014. In 2016, patient developed cough and shortness of breath. After treatment for typical causes of these symptoms, she had imaging done which revealed 2 lung nodules as well as FDG avid nodules in the right axilla consistent with disease recurrence. She underwent biopsy on 12/07/16 showing metastatic TNBC involving axillary node and then had R ALND on 12/24/16. She started treatment for metastatic disease on SWOG 1416 (cisplatin +/- veliparib; oral component blinded). She received 4 cycles of the chemotherapy with each cycle being complicated by severe nausea, dehydration related to the chemotherapy. She was hospitalized each time for these symptoms and stopped the IV portion of chemotherapy in April 2017. She continued on the oral component of therapy until September 2017 at which time scans showed progression in a right supraclavicular lymph node and bone (sternum, right sided ribs). She has discussed this with Dr Barakat and the plan is to investigate clinical trial options and if no good options, plan for standard of care therapy with carbo/gemcitabine. Patient reports that her last dose of trial therapy was approximately 2 weeks ago. She currently does not have symptoms from treatment or the disease. She has persistent neuropathy from her DM and prior chemotherapy, impairs her walking and causes her to have trouble using car keys at times. She continues to have shortness of breath and is limited in walking a block at most due to this. She and her and moving into a one floor home because she has trouble with stairs. PAST MEDICAL HISTORY: PAST MEDICAL HISTORY Diagnosis Date - Abdominal pain, epigastric - Abnormal mammogram - Anxiety state, unspecified - Breast cancer, right (HCC) - Depressive disorder, not elsewhere classified - Diabetes mellitus without mention of complication - Type I (juvenile type) diabetes mellitus without mention of complication, uncontrolled PAST SURGICAL HISTORY: PAST SURGICAL HISTORY Procedure Laterality Date - BREAST BIOPSY W/STEREOTACTIC GUIDANCE 09/13/13 - BX/REMV,LYMPH NODE,DEEP AXILL 10/05/13 right - EGD W/O [facility] SPECIMEN W/BX 02/12/13 - EXTRACTION ERUPTED TOOTH/EXR teeth, various times - INTRAOP SENTINEL LYMPH ID W/DYE NJX 10/05/13 right - MASTECTOMY, SUBCUTANEOUS 10/05/13 right - PAST SURGICAL HISTORY OF 11/05 Thyroid nodule bx; colloid nodule, no dysplasia noted - PAST SURGICAL HISTORY OF buionectomy on left toe - SURGICAL BREAST SPECIMAN 09/13/13 - TOTAL ABDOM HYSTERECTOMY 05/25/2005 Hysterectomy, [facility] (for fibroids); Dr. Hurt CURRENT MEDICATIONS: gabapentin (NEURONTIN) 300 mg capsule Take 1 capsule by mouth three times daily for 30 days. timolol hemihydrate (BETIMOL) 0.5 % ophthalmic solution Use 1 Drop in both eyes once daily. dicyclomine (BENTYL) 20 mg tablet Take 20 mg by mouth every 8 hours as needed. metoclopramide HCl (REGLAN) 10 mg tablet Take 1 tablet by mouth every 6 hours as needed. LORazepam (ATIVAN) 1 mg tablet Take 1 tablet by mouth every 8 hours as needed for Anxiety (nausea). lidocaine-prilocaine (EMLA) cream Apply 1 application to affected area as needed. citalopram (CELEXA) 20 mg tablet Take 1 tablet by mouth once daily. clonazePAM (KLONOPIN) 0.5 mg tablet 1 tablet twice daily. PRN nitrofurantoin monohydrate and macrocrystal (MACROBID) 100 mg capsule Take 100 mg by mouth twice daily. Prn empagliflozin (JARDIANCE) 10 mg tablet Take 10 mg by mouth once daily. B Complex Vitamins capsule Take 1 capsule by mouth twice daily. LIPASE/PROTEASE/AMYLASE (CREON ORAL) Take 6,000 Units by mouth. With each meal valACYclovir 500 mg tablet Take 500 mg by mouth as needed. ergocalciferol, vitamin D2, (VITAMIN D) 50,000 unit capsule Take 50,000 Units by mouth once each week. insulin glargine (LANTUS) 100 unit/mL SUBCUTANEOUS injection Take 50 in am and 70 units in pm. insulin lispro,human rec.anlog(HUMALOG KWIKPEN 100 UNIT/ML SUB-Q PEN) 15 in am, 15 noon, 20 in philip ALLERGIES/INTOLERANCES: ALLERGIES No Known Allergies FAMILY HISTORY: FAMILY HISTORY Problem Relation Age of Onset - Diabetes Mother (MANY ON MOM'S SIDE) - Breast Cancer Mother several others on mom's side - Heart Father CAD/RI dx'd first age late 40's - Hypertension Father - pancreatic cancer [OTHER] Maternal Grandmother - Colon Cancer Other no 1st degree - Breast Cancer Other maternal cousin SOCIAL HISTORY: Patient and her live in the [place] area. She is not working and is a non-smoker. REVIEW OF SYSTEMS: Complete 10 system ROS done and negative except as stated above in the HPI. PHYSICAL EXAM: BP 158/68 Pulse 99 Temp 37.5 ?C (99.5 ?F) (Oral) Resp 16 Ht 172.6 cm (5' 7.95) Wt 91.8 kg (202 lb 6.4 oz) SpO2 98% BMI 30.82 kg/m2 Body mass index is 30.82 kg/m?. ECO- Restricted in physically strenuous activity. Carries out light duty. General: well appearing woman in NAD HEENT: Head normocephalic and atraumatic. EOMI. Oropharynx clear. Neck: supple, + right supraclavicular LAD palpated, no cervical adenopathy CV: RRR, normal S1 and S2, no m/r/g Pulm: lungs CTA b/l, no w/r/r Abdomen: soft, non-tender, non-distended, NABS. No palpable masses or hepatosplenomegaly IMAGING: Bone Scan (10/07/17): Increase in uptake at distal sternum, right posterior and anteriolateral ribs CT Neck, Chest, Abdomen, Pelvis (10/05/17): Abnormal enhancing right supraclavicular lymph node measuring 2.6 x 2.0 x 2.2cm No demonstrated abnormalities of lungs or pleura. No metastatic disease involving abdomen/pelvis. IMPRESSION: Ms Barakat is a 47 year old woman with history of right sided ER-negative, KS-negative, HER2-negative Stage I breast cancer diagnosed in 2013 with subsequent metastatic recurrence diagnosed in 2017. She presents today for consideration of clinical trial options. Her disease currently involves a right supraclavicular lymph node, sternum and ribs. STAGING: Cancer Staging Malignant neoplasm metastatic to left lung (HCC) Staging form: Cancer of the Lung - Pathologic: T0, N0, M1 - Signed by Sawyer Toussaint on 10/20/2017 PLAN: 1. We currently have the CASE 6115 study (pembrolizumab, carboplatin, abraxane) and Marqeta KENRICK JIMENEZ study open at [facility]. Unfortunately, patient does not qualify for the CASE 6115 study due to severity of of her pre-existing neuropathy as well as history of DM which is likely Type 1 and thus autoimmune in nature. The Marqeta study is also not an option for Ms Wilcox due to prior progression after cisplatin based regimen and potential prior treatment with PARP inhibitor on SWOG 1416. Eligibility for both studies reviewed with our clinical trial nurses to confirm. 2. As patient is not currently a candidate for these studies, I recommended to her that she proceed with standard of care therapy as outline by Dr Barakat in the form of carboplatin/gemcitabine. We can keep in her mind for other clinical trials in the future, particularly those that involve immunotherapy as this is something that patient is very interested in. Patient was given my contact information and will call in the future with any questions or concerns. SIGNATURE: Sawyer Toussaint MD PATIENT NAME: Pedro Luis Wilcox DATE: 10/20/2017 TIME: 4:48 PM cc: Clifford Barakat MD Referring Provider: CLIFFORD BARAKAT [[id number]] Allergies As of Date: 10/20/2017 (No Known Allergies) Date Reviewed: 10/20/2017 Reviewed by: Sawyer Toussaint - Fully Assessed Reason for Visit: Consult [173] Visit Diagnosis:Metastatic breast cancer (HCC) [C50.919] Prescriptions as of 10/20/2017 Sig: GABAPENTIN 300 MG CAPSULE Take 1 capsule by mouth three* TIMOLOL 0.5 % EYE DROPS Use 1 Drop in both eyes once * DICYCLOMINE 20 MG TABLET Take 20 mg by mouth every 8 h* METOCLOPRAMIDE 10 MG TABLET Take 1 tablet by mouth every * LORAZEPAM 1 MG TABLET Take 1 tablet by mouth every * LIDOCAINE-PRILOCAINE 2.5 %-2.* Apply 1 application to affect* CITALOPRAM 20 MG TABLET Take 1 tablet by mouth once d* CLONAZEPAM 0.5 MG TABLET 1 tablet twice daily. PRN NITROFURANTOIN MONOHYDRATE AND * Take 100 mg by mouth twice da* EMPAGLIFLOZIN 10 MG TABLET Take 10 mg by mouth once gamaliel* VITAMIN B COMPLEX CAPSULE Take 1 capsule by mouth twice* CREON ORAL Take 6,000 Units by mouth. Wi* VALACYCLOVIR 500 MG TABLET Take 500 mg by mouth as neede* ERGOCALCIFEROL (VITAMIN D2) 5* Take 50,000 Units by mouth on* * INSULIN GLARGINE (U-100) 100 * Take 50 in am and 70 units in* * BAYRON FERRER (U-100) INSUL* 15 in am, 15 noon, 20 in philip Problem List As Of Date 10/20/2017 Noted Resolved THYROID NODULE [E04.1] INVALID FOR* More... Anxiety State, Unspecified [F41.1] 01/22/2009 Depressive Disorder, not Elsewhere Classified [* Priority: Moderate More... DM w/o complication type II, uncontrolled [E11.*INVALID FOR* Priority: Severe More... Other Malaise and Fatigue [R53.81, R53.83] INVALID FOR*01/22/2009 More... HYPERLIPIDEMIA NEC/NOS [E78.5] INVALID FOR* FIBROMYALGIA [JDE9564] INVALID FOR* Priority: Moderate OVERWEIGHT [E66.9] INVALID FOR* OTHER HAMMER TOE [M20.40] INVALID FOR* More... URIN TRACT INFECTION RECURRENT [N39.0] INVALID FOR*01/21/2016 More... GENITAL HERPES NOS [A60.00] INVALID FOR* Tobacco Use Disorder [F17.200] INVALID FOR* Priority: Moderate More... CONGENITAL PES PLANUS [Q66.50] INVALID FOR* Displacement of Lumbar Intervertebral Disc with*INVALID FOR* Priority: Moderate More... More... Routine Gynecological Examination [Z01.419] INVALID FOR* Class: Chronic More... 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*INVALID FOR* Malignant neoplasm metastatic to left lung (HCC*INVALID FOR* Examination of participant in clinical trial [Z*INVALID FOR* Visit Notes: >> Lamar Dumas Ma Jami Oct 20, 2017 2:08 PM Status: Signed Additional intake questions: Has the patient had nausea, vomiting, diarrhea, constipation, fatigue for > 1 week? Fatigue, Yes, MD Notified Does the patient have a decreased appetite? No Does patient want to see a Software Intern? No (yes to any of above refer patient to schedulers for dietitian appointment) ) Does patient have any new or increased numbness or tingling of extremities? Yes, pt states numbness and tingling in fingers of both hands and both feet Is patient interested in fertility information? No Does patient need any prescription refills? No Electronically Signed By: Lamar Dumas Ma Encounter Status:Closed by SAWYER TOUSSAINT MD on 10/20/17 PROGRESS Observed: 10/11/2017 Status: COMPLETED Source: [place] 2:04 PM [facility] [place] REPOSITORY HNO ID: [id number] Author: Clifford Barakat Service: (none) Author Type: Physician Type: Progress Notes Filed: 10/11/2017 2:56 PM Note Text: Diagnosis: 1) Breast cancer. 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 Her mother has a h/o breast cancer, so patient had been undergoing annual mammogram. The patient underwent a screening mammogram on 08/30/2013. A 1.6 cm nodular density was appreciated in the tail of the right breast. She underwent targeted ultrasound the same day. That study revealed a 9 mm hypoechoic solid nodule at the 10:00 position of the breast measuring 6 cm from the nipple. Stereotactic core needle biopsy on 09/13/2013. The tissue revealed invasive poorly differentiated ductal carcinoma. The specimen was negative for both estrogen and progesterone receptors. Both were quantified at 0%. HER-2 was 2+ an immunostain and nonamplified by FISH testing. The patient underwent an MRI of the breast on 09/20/2013. The study revealed that the left breast had no suspicious findings. In the right breast there was a 1.6 cm abnormal enhancing mass in the superior outer aspect of the right breast approximately 10 cm from the nipple. This correlated to the biopsy area. Underwent partial mastectomy with SLN biopsy 10/05/2013. The final pathology revealed an invasive poorly differentiated ductal carcinoma measuring 1.3 cm in size. There was a single focus. DCIS was present measuring 2 mm in maximum dimension. The grade of the cancer was 3. Margins were negative. The closest was 6 mm. Lymphovascular invasion was not identified. One sentinel lymph node was retrieved. It was negative. Received two cycles of TC. Admitted for severe PAGE. Admitted 12/17/2013 due to increase in thigh pain and dyspnea. Markedly elevated CK. No increase in serum Cr. Chemotherapy stopped after cycle #2. Was seen by ornamental plasterer helper at . 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 Completed radiation 03/26/2014. She started developing intermittent shortness of breath with exertion. She also has a cough that is a dry cough. She was taken off her PAM inhibitor but the cough has not changed. She had a PA and lateral chest film done on 10/22/2016 that demonstrated no abnormality. She then underwent a CT scan the chest without IV contrast on 11/06/2016. Two nodules were observed in the pulmonary parenchyma. One was located in the right lower lobe and the second was located in the lingular lobe. Each measured 8 mm and were thought to be consistent with metastatic disease. CT of the abdomen and pelvis on 11/20/2016 as well as repeat CT chest with IV contrast demonstrated a thick walled gallbladder suspicious for cystitis, chronic and redemonstration of the lung nodules. No concern for metastatic disease in the abdomen or pelvis. Brain MRI on 11/23/2016 was normal. PET scan demonstrated multiple foci of increased glucose concentration manifested in the right axilla, significant region generating a standard uptake value of 7.6. The maximal axial diameter the largest individual hypermetabolic soft tissue density on review of the CT of the thorax was approximately 23.1 mm in transverse dimension. An ultrasound of the right axilla and subclavicular region on 12/02/2016 demonstrated that within the right axilla there was a cluster of abnormal appearing hypoechoic nodules. The largest measured 2.3 x 1.50 1.4 cm. In the subclavicular region there was also evidence of several hypoechoic nodules the largest measuring 2.75 x 2.85 1.5 cm. She then underwent a right axillary core needle biopsy on 12/07/2016. The pathology demonstrated a poorly differentiated metastatic carcinoma. The specimen was negative for both ER and KS as well as HER- 2. I discussed the case with the pathologist today who told me that histologically/morphologically the specimen was consistent with her previous specimen of breast cancer. The pathologist will issue an addendum quantifying ER and KS 0 as well as HER-2 at 0. She had a stress test and echocardiogram about 3 years ago and had no evidence of coronary artery disease. She had LV concentric hypertrophy with preserved ejection fraction. She underwent port placement along with right axillary lymph node dissection on 12/24/2016. MICROSCOPIC DIAGNOSIS Right axillary lymph nodes, regional lymph adenectomy: One out of seven lymph nodes with metastatic poorly differentiated carcinoma. See comment. COMMENT Immunohistochemistry ([id number]) does not rule out a breast primary. There is focal perinodal extension of tumor. Clinical correlation is suggested. ANTIBODY / CLONE RESULT Block 1 Mammaglobin (31A5) negative GATA3 (L50-823) positive, rare, dim CK8 (62qwcfV96) positive Ki-67 (30-9) positive, moderate to high ER (6F11) negative 0% KS (1E2) negative 0% CK19 (A53-B/A2.26) positive Cyclin D1/BCL-1 (SP4) positive CEA (11-7/TF-3HB-1) negative SHELLI (E29) positive CK20 (KS20.8) negative Villin (CWWB1) negative RCC (PN-15) negative CA125 (OC125) positive Current therapy: 1) Cisplatin (+/- PARP inhibitor on trial). Presents for ongoing oncologic management. Interim history: She underwent a CT scan of the neck, chest abdomen and pelvis at [facility] on 10/05/2017. The CT of the neck revealed an abnormal enhancing right subclavicular lymph node measuring 2.6 x 2.0 x 2.2 cm. There were no other significant abnormalities. CT of the chest corroborated the CT neck findings with a 2.6 x 1.5 mm lymph node in the right supraclavicular region. The abdominopelvic images revealed no evidence of metastatic disease. Bone scan done 10/07/2017 showed some increase in radiopharmaceutical concentration in the distal sternum and in the right posterior and anterior lateral ribs potentially representing limited skeletal metastatic disease. Chronic symptoms of neuropathy in the lower part of the lower extremities bilaterally from her history of diabetes are stable. Shallow numbness in her left thigh in her family physician ordered an x-ray of the lumbar spine which was done yesterday. She's not yet aware of the results. I reviewed those with her. It showed multilevel endplate spondylosis with multilevel degenerative disc disease and multilevel disc space narrowing but no evidence of osteoblastic disease. PMH, medications and allergies as below personally reviewed by me today. Any changes documented in appropriate section. ROS: Constitutional: Denies episodes of fever and night sweats. Neuro: Denies DOZIER, vertigo, dizziness and imbalance. HEENT: No recent change in voice, vision or hearing. Resp: See above. CVS: Denies exertional chest pain, PND, orthopnea and LE edema. GI: Denies dysgeusia. Denies symptoms of stomatitis. Denies dysphagia and odynophagia. Denies reflux, change in bowel habits and abdominal pain. : Denies dysuria or gross hematuria. No symptoms of bladder outlet obstruction. Endo: Denies hot flashes. Denies polyuria and polydipsia. Denies heat and cold intolerance. Musculoskeletal: See above. Derm: Denies rash. Denies jaundice and diffuse pruritis. Heme: Denies unusual bleeding and unexplained bruising. Psych: Normal mood. PHYSICAL EXAM: Vitals: There were no vitals taken for this visit. Well-appearing and in no acute distress. EYES: Sclerae are anicteric bilaterally. ENT: Oral mucosa is unremarkable. There is no sign of thrush or mucositis. NECK: Supple. LYMPHATIC: There is a new firmly enlarged mobile right supraclavicular lymph node measuring approximately 2 cm close to the base of the neck. No other peripheral adenopathy. Specifically no other supraclavicular, cervical, axillary or inguinal adenopathy. RESPIRATORY: Inspiratory breath sounds are of normal intensity in all norris. No rales, wheezes or rhonchi. CARDIOVASCULAR: Rhythm is regular. Normal intensity S1/S2. There is no gallop or murmur. ABDOMEN: The abdomen is nondistended. No organomegaly. No tenderness. Extremities: No swelling or edema. SKIN: No jaundice or rash. No petechiae. NEUROLOGIC: station attendant II-XII are grossly intact. No focal motor weakness. MUSCULOSKELETAL: No muscle wasting. 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 Comprehensive BRCA 1 and 2 testing (scanned 12/05/2013) no mutation Complicated by myositis during adjuvant chemotherapy. -KPS is 90%. -Biopsy-proven local regional recurrence. 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 -I reviewed the results of the CT scans and bone scan in detail with her. There is clearly an enlarging right superior lymph node and now suspicion of potentially to rib metastases and distal sternal metastasis. -We discussed options but she is very interested in pursuing further clinical trials and in particular the CASE 6115 trial at [facility]. Plan: -Referral to [facility] for opinion on clinical trial. -If she is not a candidate or chooses not to pursue clinical trial, then treatment with gemcitabine and carboplatin. Clifford Barakat DO CNOVSP Observed: 10/11/2017 Status: COMPLETED Source: [place] 2:00 PM [facility] REPOSITORY Visit (SP) Office (DANYEL) PEDRO LUIS WILCOX ([id number]) 1970 F Date Time Provider Department 10/11/17 2:00 PM CLIFFORD BARAKAT During your visit today, we recorded the following information about you: Temperature Pulse Blood pressure Weight 97.5 degrees 106/minute 131/56 92.3 kg Clifford Barakat DO 10/11/2017 2:56 PM Signed Diagnosis: 1) Breast cancer. 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 Her mother has a h/o breast cancer, so patient had been undergoing annual mammogram. The patient underwent a screening mammogram on 08/30/2013. A 1.6 cm nodular density was appreciated in the tail of the right breast. She underwent targeted ultrasound the same day. That study revealed a 9 mm hypoechoic solid nodule at the 10:00 position of the breast measuring 6 cm from the nipple. Stereotactic core needle biopsy on 09/13/2013. The tissue revealed invasive poorly differentiated ductal carcinoma. The specimen was negative for both estrogen and progesterone receptors. Both were quantified at 0%. HER-2 was 2+ an immunostain and nonamplified by FISH testing. The patient underwent an MRI of the breast on 09/20/2013. The study revealed that the left breast had no suspicious findings. In the right breast there was a 1.6 cm abnormal enhancing mass in the superior outer aspect of the right breast approximately 10 cm from the nipple. This correlated to the biopsy area. Underwent partial mastectomy with SLN biopsy 10/05/2013. The final pathology revealed an invasive poorly differentiated ductal carcinoma measuring 1.3 cm in size. There was a single focus. DCIS was present measuring 2 mm in maximum dimension. The grade of the cancer was 3. Margins were negative. The closest was 6 mm. Lymphovascular invasion was not identified. One sentinel lymph node was retrieved. It was negative. Received two cycles of TC. Admitted for severe PAGE. Admitted 12/17/2013 due to increase in thigh pain and dyspnea. Markedly elevated CK. No increase in serum Cr. Chemotherapy stopped after cycle #2. Was seen by ornamental plasterer helper at . 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 Completed radiation 03/26/2014. She started developing intermittent shortness of breath with exertion. She also has a cough that is a dry cough. She was taken off her PAM inhibitor but the cough has not changed. She had a PA and lateral chest film done on 10/22/2016 that demonstrated no abnormality. She then underwent a CT scan the chest without IV contrast on 11/06/2016. Two nodules were observed in the pulmonary parenchyma. One was located in the right lower lobe and the second was located in the lingular lobe. Each measured 8 mm and were thought to be consistent with metastatic disease. CT of the abdomen and pelvis on 11/20/2016 as well as repeat CT chest with IV contrast demonstrated a thick walled gallbladder suspicious for cystitis, chronic and redemonstration of the lung nodules. No concern for metastatic disease in the abdomen or pelvis. Brain MRI on 11/23/2016 was normal. PET scan demonstrated multiple foci of increased glucose concentration manifested in the right axilla, significant region generating a standard uptake value of 7.6. The maximal axial diameter the largest individual hypermetabolic soft tissue density on review of the CT of the thorax was approximately 23.1 mm in transverse dimension. An ultrasound of the right axilla and subclavicular region on 12/02/2016 demonstrated that within the right axilla there was a cluster of abnormal appearing hypoechoic nodules. The largest measured 2.3 x 1.50 1.4 cm. In the subclavicular region there was also evidence of several hypoechoic nodules the largest measuring 2.75 x 2.85 1.5 cm. She then underwent a right axillary core needle biopsy on 12/07/2016. The pathology demonstrated a poorly differentiated metastatic carcinoma. The specimen was negative for both ER and KS as well as HER-2. I discussed the case with the pathologist today who told me that histologically/morphologically the specimen was consistent with her previous specimen of breast cancer. The pathologist will issue an addendum quantifying ER and KS 0 as well as HER-2 at 0. She had a stress test and echocardiogram about 3 years ago and had no evidence of coronary artery disease. She had LV concentric hypertrophy with preserved ejection fraction. She underwent port placement along with right axillary lymph node dissection on 12/24/2016. MICROSCOPIC DIAGNOSIS Right axillary lymph nodes, regional lymph adenectomy: One out of seven lymph nodes with metastatic poorly differentiated carcinoma. See comment. COMMENT Immunohistochemistry ([id number]) does not rule out a breast primary. There is focal perinodal extension of tumor. Clinical correlation is suggested. ANTIBODY / CLONE RESULT Block 1 Mammaglobin (31A5) negative GATA3 (L50-823) positive, rare, dim CK8 (04wgsaD50) positive Ki-67 (30-9) positive, moderate to high ER (6F11) negative 0% KS (1E2) negative 0% CK19 (A53-B/A2.26) positive Cyclin D1/BCL-1 (SP4) positive CEA (11-7/TF-3HB-1) negative SHELLI (E29) positive CK20 (KS20.8) negative Villin (CWWB1) negative RCC (PN-15) negative CA125 (OC125) positive Current therapy: 1) Cisplatin (+/- PARP inhibitor on trial). Presents for ongoing oncologic management. Interim history: She underwent a CT scan of the neck, chest abdomen and pelvis at [facility] on 10/05/2017. The CT of the neck revealed an abnormal enhancing right subclavicular lymph node measuring 2.6 x 2.0 x 2.2 cm. There were no other significant abnormalities. CT of the chest corroborated the CT neck findings with a 2.6 x 1.5 mm lymph node in the right supraclavicular region. The abdominopelvic images revealed no evidence of metastatic disease. Bone scan done 10/07/2017 showed some increase in radiopharmaceutical concentration in the distal sternum and in the right posterior and anterior lateral ribs potentially representing limited skeletal metastatic disease. Chronic symptoms of neuropathy in the lower part of the lower extremities bilaterally from her history of diabetes are stable. Shallow numbness in her left thigh in her family physician ordered an x-ray of the lumbar spine which was done yesterday. She's not yet aware of the results. I reviewed those with her. It showed multilevel endplate spondylosis with multilevel degenerative disc disease and multilevel disc space narrowing but no evidence of osteoblastic disease. PMH, medications and allergies as below personally reviewed by me today. Any changes documented in appropriate section. ROS: Constitutional: Denies episodes of fever and night sweats. Neuro: Denies DOZIER, vertigo, dizziness and imbalance. HEENT: No recent change in voice, vision or hearing. Resp: See above. CVS: Denies exertional chest pain, PND, orthopnea and LE edema. GI: Denies dysgeusia. Denies symptoms of stomatitis. Denies dysphagia and odynophagia. Denies reflux, change in bowel habits and abdominal pain. : Denies dysuria or gross hematuria. No symptoms of bladder outlet obstruction. Endo: Denies hot flashes. Denies polyuria and polydipsia. Denies heat and cold intolerance. Musculoskeletal: See above. Derm: Denies rash. Denies jaundice and diffuse pruritis. Heme: Denies unusual bleeding and unexplained bruising. Psych: Normal mood. PHYSICAL EXAM: Vitals: There were no vitals taken for this visit. Well-appearing and in no acute distress. EYES: Sclerae are anicteric bilaterally. ENT: Oral mucosa is unremarkable. There is no sign of thrush or mucositis. NECK: Supple. LYMPHATIC: There is a new firmly enlarged mobile right supraclavicular lymph node measuring approximately 2 cm close to the base of the neck. No other peripheral adenopathy. Specifically no other supraclavicular, cervical, axillary or inguinal adenopathy. RESPIRATORY: Inspiratory breath sounds are of normal intensity in all norris. No rales, wheezes or rhonchi. CARDIOVASCULAR: Rhythm is regular. Normal intensity S1/S2. There is no gallop or murmur. ABDOMEN: The abdomen is nondistended. No organomegaly. No tenderness. Extremities: No swelling or edema. SKIN: No jaundice or rash. No petechiae. NEUROLOGIC: station attendant II-XII are grossly intact. No focal motor weakness. MUSCULOSKELETAL: No muscle wasting. 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 Comprehensive BRCA 1 and 2 testing (scanned 12/05/2013) no mutation Complicated by myositis during adjuvant chemotherapy. -KPS is 90%. -Biopsy-proven local regional recurrence. 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 -I reviewed the results of the CT scans and bone scan in detail with her. There is clearly an enlarging right superior lymph node and now suspicion of potentially to rib metastases and distal sternal metastasis. -We discussed options but she is very interested in pursuing further clinical trials and in particular the CASE 6115 trial at [facility]. Plan: -Referral to [facility] for opinion on clinical trial. -If she is not a candidate or chooses not to pursue clinical trial, then treatment with gemcitabine and carboplatin. Clifford Barakat DO Referring Provider: CLIFFORD BARAKAT [[id number]] Allergies As of Date: 10/11/2017 (No Known Allergies) Date Reviewed: 10/11/2017 Reviewed by: Suze Garcia (Rn) BRITTNEY Barnett - Fully Assessed Reason for Visit: Establish Care [42] Primary Visit Diagnosis:Malignant neoplasm of upper-outer quadrant of right breast in female, estrogen receptor negative (HCC) [C50.411, Z17.1] Other Visit Diagnosis:Malignant neoplasm metastatic to left lung (HCC) [C78.02] Prescriptions as of 10/11/2017 Sig: GABAPENTIN 300 MG CAPSULE Take 300 mg by mouth three ti* TIMOLOL 0.5 % EYE DROPS Use 1 Drop in both eyes once * DICYCLOMINE 20 MG TABLET Take 20 mg by mouth every 8 h* METOCLOPRAMIDE 10 MG TABLET Take 1 tablet by mouth every * LORAZEPAM 1 MG TABLET Take 1 tablet by mouth every * LIDOCAINE-PRILOCAINE 2.5 %-2.* Apply 1 application to affect* CITALOPRAM 20 MG TABLET Take 1 tablet by mouth once d* CLONAZEPAM 0.5 MG TABLET 1 tablet twice daily. PRN NITROFURANTOIN MONOHYDRATE AND * Take 100 mg by mouth twice da* EMPAGLIFLOZIN 10 MG TABLET Take 10 mg by mouth once gamaliel* VITAMIN B COMPLEX CAPSULE Take 1 capsule by mouth twice* CREON ORAL Take 6,000 Units by mouth. Wi* VALACYCLOVIR 500 MG TABLET Take 500 mg by mouth as neede* ERGOCALCIFEROL (VITAMIN D2) 5* Take 50,000 Units by mouth on* * INSULIN GLARGINE (U-100) 100 * Take 50 in am and 70 units in* * HUMALOG KWIKPEN (U-100) INSUL* 15 in am, 15 noon, 20 in philip Problem List As Of Date 10/11/2017 Noted Resolved THYROID NODULE [E04.1] INVALID FOR* More... Anxiety State, Unspecified [F41.1] 01/22/2009 Depressive Disorder, not Elsewhere Classified [* Priority: Moderate More... DM w/o complication type II, uncontrolled [E11.*INVALID FOR* Priority: Severe More... Other Malaise and Fatigue [R53.81, R53.83] INVALID FOR*01/22/2009 More... HYPERLIPIDEMIA NEC/NOS [E78.5] INVALID FOR* FIBROMYALGIA [COB7028] INVALID FOR* Priority: Moderate OVERWEIGHT [E66.9] INVALID FOR* OTHER HAMMER TOE [M20.40] INVALID FOR* More... URIN TRACT INFECTION RECURRENT [N39.0] INVALID FOR*01/21/2016 More... GENITAL HERPES NOS [A60.00] INVALID FOR* Tobacco Use Disorder [F17.200] INVALID FOR* Priority: Moderate More... CONGENITAL PES PLANUS [Q66.50] INVALID FOR* Displacement of Lumbar Intervertebral Disc with*INVALID FOR* Priority: Moderate More... More... Routine Gynecological Examination [Z01.419] INVALID FOR* Class: Chronic More... 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*INVALID FOR* Malignant neoplasm metastatic to left lung (HCC*INVALID FOR* Examination of participant in clinical trial [Z*INVALID FOR* Encounter Status:Closed by CLIFFORD BARAKAT DO on 10/11/17 HOSP Observed: 10/11/2017 Status: COMPLETED Source: [place] 12:00 AM [facility] REPOSITORY Patient Update (HEMAWS) PEDRO LUIS WILCOX ([id number]) 1970 F Date Time Provider Department 10/11/17 EMRE MCDONOUGH (BRITTNEY) DANYEL During your visit today, we recorded the following information about you: Emre Mcdonough RN 10/11/2017 2:44 PM Signed [id number] Note: Patient in today to discuss treatment options with Dr. Barakat. Patient was agreeable to go to lab also for study lab (CTC) due at time of progression. A streck cell free DNA tube was drawn. It was packed up per protocol in kit provided by study and shipped ambient in box provided. Shipped [employer] overnight carrier. Emre Mcdonough RN Allergies As of Date: 10/11/2017 (No Known Allergies) Date Reviewed: 10/11/2017 Reviewed by: Suze Garcia (Rn) BRITTNEY Barnett - Fully Assessed Reason for Visit: Clinical Trial Note [Other] Cmt: S1416 Prescriptions as of 10/11/2017 Sig: GABAPENTIN 300 MG CAPSULE Take 300 mg by mouth three ti* TIMOLOL 0.5 % EYE DROPS Use 1 Drop in both eyes once * DICYCLOMINE 20 MG TABLET Take 20 mg by mouth every 8 h* METOCLOPRAMIDE 10 MG TABLET Take 1 tablet by mouth every * LORAZEPAM 1 MG TABLET Take 1 tablet by mouth every * LIDOCAINE-PRILOCAINE 2.5 %-2.* Apply 1 application to affect* CITALOPRAM 20 MG TABLET Take 1 tablet by mouth once d* CLONAZEPAM 0.5 MG TABLET 1 tablet twice daily. PRN NITROFURANTOIN MONOHYDRATE AND * Take 100 mg by mouth twice da* EMPAGLIFLOZIN 10 MG TABLET Take 10 mg by mouth once gamaliel* VITAMIN B COMPLEX CAPSULE Take 1 capsule by mouth twice* CREON ORAL Take 6,000 Units by mouth. Wi* VALACYCLOVIR 500 MG TABLET Take 500 mg by mouth as neede* ERGOCALCIFEROL (VITAMIN D2) 5* Take 50,000 Units by mouth on* * INSULIN GLARGINE (U-100) 100 * Take 50 in am and 70 units in* * HUMALOG KWIKPEN (U-100) INSUL* 15 in am, 15 noon, 20 in philip Problem List As Of Date 10/11/2017 Noted Resolved THYROID NODULE [E04.1] INVALID FOR* More... Anxiety State, Unspecified [F41.1] 01/22/2009 Depressive Disorder, not Elsewhere Classified [* Priority: Moderate More... DM w/o complication type II, uncontrolled [E11.*INVALID FOR* Priority: Severe More... Other Malaise and Fatigue [R53.81, R53.83] INVALID FOR*01/22/2009 More... HYPERLIPIDEMIA NEC/NOS [E78.5] INVALID FOR* FIBROMYALGIA [VJQ4552] INVALID FOR* Priority: Moderate OVERWEIGHT [E66.9] INVALID FOR* OTHER HAMMER TOE [M20.40] INVALID FOR* More... URIN TRACT INFECTION RECURRENT [N39.0] INVALID FOR*01/21/2016 More... GENITAL HERPES NOS [A60.00] INVALID FOR* Tobacco Use Disorder [F17.200] INVALID FOR* Priority: Moderate More... CONGENITAL PES PLANUS [Q66.50] INVALID FOR* Displacement of Lumbar Intervertebral Disc with*INVALID FOR* Priority: Moderate More... More... Routine Gynecological Examination [Z01.419] INVALID FOR* Class: Chronic More... 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*INVALID FOR* Malignant neoplasm metastatic to left lung (HCC*INVALID FOR* Examination of participant in clinical trial [Z*INVALID FOR* Visit Notes: >> Emre Jacobson) Ceasar Espinosa Oct 11, 2017 2:38 PM Status: Signed S1416 Note: Patient in today to discuss treatment options with Dr. Barakat. Patient was agreeable to go to lab also for study lab (CTC) due at time of progression. A [employer]ck cell free DNA tube was drawn. It was packed up per protocol in kit provided by study and shipped ambient in box provided. Shipped [employer] overnight carrier. Emre Mcdonough RN Encounter Status:Closed by EMRE MCDONOUGH on 10/11/17 ECHOCARDIOGRAM COMPLETE Observed: 10/10/2017 Status: F Source: [place] 10:19 AM [facility] REPOSITORY [facility] Cardiovascular Services [address] [place] [id number] Echo Complete 10/10/17 0809 MR#: [id number] Acct: [id number] Name: PEDRO LUIS WILCOX Rep #: [id number] : 1970 47 From: Eric Blue MD Attending Dr: Raza VELAZQUEZ,Jacinto Status: REG CLI Ordering Dr: Clifford Barakat DO Date: 10/10/17 Location: [place] Sex: F AA Admitted: Reason For Study: MALIGNANT NEOPLASM OF UPPER RT BREAST Procedure This was a 2D Doppler, Color Flow transthoracic echocardiogram. Exam performed in department. Left Ventricle Normal LV size. Mild concentric left ventricular hypertrophy. Left ventricular systolic function is normal. The estimated ejection fraction is 60 %. Transmitral diastolic flow velocities suggest mild (stage 1) diastolic dysfunction (reversed pattern). No regional wall motion abnormalities noted. Right Ventricle Normal RV size. Normal systolic function. Atria Normal left atrium. Normal right atrium. Mitral Valve Normal mitral valve. Tricuspid Valve Normal tricuspid valve. Mild tricuspid valve insufficiency. Pulmonary artery systolic pressure is 29 mmHg. Aortic Valve Normal aortic valve. Trisinus/trileaflet aortic valve. Pulmonic Valve Normal pulmonic valve. Great Vessels Normal aortic root. The pulmonary artery is normal size. Normal inferior vena cava. Pericardium/Pleural No pericardial effusion. MMode/2D Measurements AND Calculations LVIDd: 4.1 cm IVSd: 1.2 cm Ao root diam: 3.1 cm LVIDs: 2.8 cm LVPWd: 1.3 cm LA dimension: 3.8 cm RVDd: 2.9 cm FS: 31.7 % LAV(MOD-bp): 54.0 ml EDV(MOD-sp4): 117.7 ml SV(MOD-sp4): 67.9 ml LAV(MOD-bp) Indexed: 26.7 ml/m2 ESV(MOD-sp4): 49.8 ml LAV(MOD-sp2): 55.3 ml EF(MOD-sp4): 57.7 % LAV(MOD-sp4): 52.5 ml LA A4 area: 18.1 cm2 RA A4 area: 13.9 cm2 Doppler Measurements AND Calculations MV E max adelaida: 91.1 cm/sec Lat Peak E' Adelaida: 10.1 cm/sec Med Peak E' Adelaida: 6.8 cm/sec MV A max adelaida: 102.6 cm/sec E/E' lat: 9.0 E/E' med: 13.4 MV E/A: 0.89 Ao V2 max: 155.5 cm/sec LV V1 max: 93.2 cm/sec PA V2 max: 103.1 cm/sec Ao max P.7 mmHg LV V1 max P.5 mmHg TR max adelaida: 258.6 cm/sec TR max P.7 mmHg Interpretation Summary Normal LV size. Mild concentric left ventricular hypertrophy. Left ventricular systolic function is normal. The estimated ejection fraction is 60 %. Transmitral diastolic flow velocities suggest mild (stage 1) diastolic dysfunction (reversed pattern). Compared to prior study, there is no significant change. Ordering Physician: Clifford Barakat Referring Physician: Jacinto Person Performed By: Alexandra Ma RDCS 10/10/17 1019 Date Eric Blue MD CC: Jacinto Person MD; Clifford Deanmike MCBRIDE Date Dictated: 10/10/17 0809 Date Transcribed: 10/10/17 1019 Family [employer] Consumer Education Teacher: Signed GASTRIC EMPTYING Observed: 10/10/2017 Status: F Source: [place] 9:17 AM [facility] REPOSITORY [facility] Imaging Services [address] [place] [address] Gastric Emptying Study MR#: [id number] Acct: [id number] Name: PEDRO LUIS WILCOX Rep #: [id number] : 1970 F 47 From: Clay Real DO PCP: Jacinto Person MD Status: REG CLI Study: Gastric Emptying Study Date of Exam: 10/10/17 Exam# [id number] Ordering Dr: Jacinto Person MD CLINICAL: 47-year-old diabetic female with reported history of clinical gastroparesis. SEMI-SOLID PHASE 99m Tc SULFUR COLLOID GASTRIC EMPTYING STUDY COMPARISON: None available FINDINGS: The patient was administered 1.0 mCi of 99m Tc sulfur colloid mixed with oatmeal and consumed per os. Image acquisitions in the anterior-posterior projections for a total of 60 minutes. There is prompt visualization of the stomach. There is no gastroesophageal reflux identified. First order kinetics are maintained throughout the duration of the acquisitions. The T1/2 linear fit was calculated to be 167.19 minutes, (Normal: 12-56 minutes). NM/Gastric Emptying Study IMPRESSION: 1. ABNORMAL 99m Tc sulfur colloid semi-solid phase (oatmeal) gastric emptying imaging examination. A. There is delayed semi-solid phase gastric emptying compared to normal controls with maintained first order kinetics throughout all components of the examination. (Tim ospina al, J Nucl Med Tech 38: 186, 2010). Electronically Signed: Clay Real DO at 23:46 EDT Tel , Service support , CC: Jacinto Person MD Family And Consumer Education Teacher: Signed L/S SPINE MIN 4 Observed: 10/10/2017 Status: F Source: [place] 8:41 AM [facility] REPOSITORY [facility] Imaging Services [address] [place] [address] L/S Spine Min 4 Views MR#: [id number] Acct: [id number] Name: PEDRO LUIS WILCOX Rep #: [id number] : 1970 F 47 From: Jina Arciniega MD PCP: Jacinto Person MD Status: REG CLI Study: L/S Spine Min 4 Views Date of Exam: 10/10/17 Exam# [id number] Ordering Dr: Jacinto Person MD STUDY: X-RAY - LUMBAR SPINE REASON FOR EXAM: Female, 47 years old. Radiculopathy. TECHNIQUE: 5 view(s) of the lumbar spine were obtained. COMPARISON: CT of the abdomen and pelvis dated October 05, 2017 FINDINGS: Normal lumbar lordosis. There is no substantial scoliosis. There is a normal alignment of the vertebrae. There is multilevel endplate spondylosis of the lumbar vertebrae. There is multi-level degenerative disc disease with multi-level disc space narrowing. There is atherosclerotic calcification of the abdominal aorta without a demonstrated aneurysm. RAD/L/S Spine Min 4 Views IMPRESSION: Degenerative changes of the spine, as detailed above. Atherosclerosis. Electronically Signed: Jina Arciniega MD at 17:25 EDT Tel , Service support , CC: Jacinto Person MD Family And Consumer Education Teacher: Signed BONE SCAN WHOLE Observed: 10/07/2017 Status: F Source: [place] 10:04 AM [facility] [place] REPOSITORY [facility] Imaging Services [address] [place] [address] Bone Scan Whole Body MR#: [id number] Acct: [id number] Name: LANEY WILCOXPATTI Williamson Rep #: [id number] : 1970 F 47 From: Clay Real DO PCP: Jacinto Person MD Status: REG CLI Study: Bone Scan Whole Body Date of Exam: 10/07/17 Exam# [id number] Ordering Dr: Clifford Barakat DO CLINICAL: 47-year-old female with history of carcinoma of the breast. WHOLE BODY 99m Tc MDP RADIONUCLIDE BONE SCINTIGRAPHY COMPARISON: Previous whole body bone scintigraphy study dated 08/16/2017 FINDINGS: Following the intravenous administration of 26.0 mCi of 99m Tc MDP, whole body bone images reveal: 1. Increased radiopharmaceutical concentration remains evident in the distal sternum and newly defined in the right posterior sixth rib or medial border of the right scapula, right anterolateral 11th rib. 2. Enhanced uptake is persistently defined in the acromioclavicular and sternoclavicular compartments of both shoulders, ninth thoracic vertebra posteriorly on the left, fourth lumbar vertebra posteriorly on the left, bilateral knees, the right ankle. 3. The remaining skeletal structures are scintigraphically unremarkable with normal-appearing renal images and urinary bladder activity identified. Asymmetric increased tracer concentration is currently expressed in the greater trochanteric aspect of the left proximal femur most consistent with periostitis and/or trochanteric bursitis. NM/Bone Scan Whole Body IMPRESSION: 1. The increase in radiopharmaceutical concentration redemonstrated in the distal sternum and newly apparent in the right posterior and anterolateral ribs may represent limited skeletal metastatic disease. Plain film radiography correlation is recommended if not previously obtained. 2. Degenerative arthritis is currently expressed in the thoracic and lumbar spine, bilateral shoulders, right-left knees and right ankle articulation. 3. Overall compared to the previous whole body bone scintigraphy study dated 08/16/2017, there is no significant interval change. Persistent increased uptake noted in the distal sternum and newly identified in the right ribs may warrant further investigation with plain film radiography as described above. Electronically Signed: Clay Real DO at 12:55 EDT Tel , Service support , CC: Jacinto Person MD; Clifford Barakat DO Family And Consumer Education Teacher: Signed CHEST WITH CONTRAST Observed: 10/05/2017 Status: F Source: [place] 3:28 PM [facility] [place] REPOSITORY [facility] Imaging Services [address] [place] [id number] Chest WITH Contrast MR#: [id number] Acct: [id number] Name: PEDRO LUIS WILCOX Rep #: [id number] : 1970 F 47 From: Reed Samaniego MD PCP: Jacinto Person MD Status: REG CLI Study: Chest WITH Contrast Date of Exam: 10/05/17 Exam# [id number] Ordering Dr: Clifford Barakat DO STUDY: CT CHEST WITH CONTRAST REASON FOR EXAM: Female, 47 years old. Breast cancer, enlarging lump right anterior lower neck. Prior chemotherapy, right lumpectomy, hysterectomy, PowerPort. RADIATION DOSAGE (If Supplied By Facility): CTDIvol = ( 23.83 ) mGy, DLP = ( 3310.67 ) mGycm TECHNIQUE: Transaxial imaging was performed following intravenous administration of 100mL ml of Isovue 300 contrast material. Individualized dose optimization techniques were used for this CT. COMPARISON: 5.18 FINDINGS: There is a left Port-A-Cath and/or mediport in place. The tip is in the superior vena cava. There are degenerative changes of the shoulders. Abnormal enhancing lymph node in the right supraclavicular region measuring 26 x 15 mm. Metastatic focus should be considered. The lungs are normal. There is no demonstrated pleural abnormality. Normal heart and pericardium. Normal mediastinum. Normal hilar regions. Normal enhanced pulmonary arteries. Normal aorta arch and descending thoracic aorta. There are multi-level degenerative changes of the thoracic spine. There is no demonstrated abnormality of the visualized upper abdomen. CT/Chest WITH Contrast IMPRESSION: Abnormal enhancing lymph node in the right supraclavicular region measuring 26 x 15 mm. Metastatic focus should be considered. Electronically Signed: Reed Samaniego MD at 23:24 EDT , Service support , CC: Jacinto Person MD; Clifford Barakat DO Family And Consumer Education Teacher: Signed ABDOMEN/PELVIS WITH Observed: 10/05/2017 Status: F Source: [place] CONTRAST 3:20 PM [facility] [place] REPOSITORY [facility] Imaging Services [address] [place] [address] Abdomen/Pelvis WITH Contrast MR#: [id number] Acct: [id number] Name: PEDRO LUIS WILCOX Rep #: [id number] : 1970 F 47 From: Reed Samaniego MD PCP: Jacinto Person MD Status: REG CLI Study: Abdomen/Pelvis WITH Contrast Date of Exam: 10/05/17 Exam# [id number] Ordering Dr: Clifford Barakat DO STUDY: CT ABDOMEN AND PELVIS WITH CONTRAST REASON FOR EXAM: Female, 47 years old. Stage 4 invasive breast cancer, enlarging lump right anterior lower neck (marked with BB). Power Port with chemotherapy RADIATION DOSAGE (If Supplied By Facility): CTDIvol = ( 23.83 ) mGy, DLP = ( 3310.67 ) mGycm TECHNIQUE: Transaxial images were obtained from the dome of the diaphragm to the symphysis pubis with oral contrast. 100mL ml of Isovue 300 contrast was administered. Sagittal and coronal images were reconstructed. Individualized dose optimization techniques were used for this CT. COMPARISON: 5.18 FINDINGS: The visualized lung bases are unremarkable. The visualized portions of the heart are within normal limits. Wall thickening of the right breast suggesting a possible inflammatory breast carcinoma. Normal liver. The gallbladder is contracted. Normal spleen. Normal pancreas. Normal bilateral adrenal glands. Normal right kidney. Normal left kidney. Normal visualized stomach. Normal small intestine. Normal colon. The appendix is visualized and appears normal. There is diffuse atherosclerotic calcification of the abdominal aorta, without a demonstrated aneurysm. Normal inferior vena cava. Normal retroperitoneum. Normal urinary bladder. There is absence of the uterus consistent with a prior hysterectomy.Degenerative findings of the hips. Normal abdominal wall. There are diffuse degenerative changes of the visualized lumbar spine. CT/Abdomen/Pelvis WITH Contrast IMPRESSION: Degenerative findings of the hips. Hysterectomy changes. Wall thickening of the right breast suggesting a possible inflammatory breast carcinoma. No evidence for metastatic disease in the abdomen or pelvis. Electronically Signed: Reed Samaniego MD at 23:35 EDT , Service support , CC: Jacinto Person MD; Clifford Barakat DO Family And Consumer Education Teacher: Signed SOFT TISSUE NECK WITH Observed: 10/05/2017 Status: F Source: [place] 3:00 PM [facility] [place] REPOSITORY [facility] Imaging Services [address] [place] [address] Soft Tissue Neck WITH Contrast MR#: [id number] Acct: [id number] Name: PEDRO LUIS WILCOX Rep #: [id number] : 1970 F 47 From: Reed Samaniego MD PCP: Jacinto Person MD Status: REG CLI Study: Soft Tissue Neck WITH Contrast Date of Exam: 10/05/17 Exam# [id number] Ordering Dr: Clifford Barakat DO STUDY: CT SOFT TISSUE NECK WITH CONTRAST REASON FOR EXAM: Female, 47 years old. Stage 4 invasive breast cancer, enlarging lump right anterior lower neck (marked with BB). Power Port with chemotherapy. RADIATION DOSAGE (If Supplied By Facility): CTDIvol = ( 23.83 ) mGy, DLP = ( 3310.67 ) mGycm TECHNIQUE: The patient was scanned in a multi-detector CT scanner. High resolution transaxial imaging was performed following intravenous administration of 100mL ml of Isovue 300 contrast material. Sagittal and coronal images were reconstructed. Individualized dose optimization techniques were used for this CT. COMPARISON: None. FINDINGS: Normal bilateral parotid glands. Normal bilateral quarry boss spaces. Normal bilateral parapharyngeal spaces. Normal bilateral carotid spaces. There is a left Port-A-Cath and/or mediport in place. The tip is in the superior vena cava. Normal bilateral sublingual and submandibular glands and spaces. Normal visualized nasopharynx. Normal retropharyngeal space. Normal perivertebral space. Normal visualized bilateral faucial tonsils. The visualized tongue, tongue base and oropharynx are normal. Abnormal enhancing right supraclavicular lymph node measuring 26 x 20 x 22 mm. Normal epiglottis, bilateral vallecula and hypopharynx. The pre-epiglottic and paraglottic adipose spaces are normal. Normal visualized bilateral piriform sinuses, aryepiglottic folds, vocal cords, and arytenoid-cricoid articulations. Normal subglottic trachea. Normal bilateral lobes of the thyroid gland. Normal visualized pulmonary apices. Normal visualized paranasal sinuses. There is multilevel degenerative changes of the cervical spine. CT/Soft Tissue Neck WITH Contrast IMPRESSION: Abnormal right supraclavicular lymph node concerning for metastatic focus. Electronically Signed: Reed Samaniego MD at 23:37 EDT , Service support , CC: Jacinto Person MD; Clifford Barakat DO Family And Consumer Education Teacher: Signed PROGRESS Observed: 10/04/2017 Status: COMPLETED Source: [place] 12:44 PM [facility] REPOSITORY HNO ID: [id number] Author: Clifford Barakat Service: (none) Author Type: Physician Type: Progress Notes Filed: 10/04/2017 1:00 PM Note Text: Diagnosis: 1) Breast cancer. 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 Her mother has a h/o breast cancer, so patient had been undergoing annual mammogram. The patient underwent a screening mammogram on 08/30/2013. A 1.6 cm nodular density was appreciated in the tail of the right breast. She underwent targeted ultrasound the same day. That study revealed a 9 mm hypoechoic solid nodule at the 10:00 position of the breast measuring 6 cm from the nipple. Stereotactic core needle biopsy on 09/13/2013. The tissue revealed invasive poorly differentiated ductal carcinoma. The specimen was negative for both estrogen and progesterone receptors. Both were quantified at 0%. HER-2 was 2+ an immunostain and nonamplified by FISH testing. The patient underwent an MRI of the breast on 09/20/2013. The study revealed that the left breast had no suspicious findings. In the right breast there was a 1.6 cm abnormal enhancing mass in the superior outer aspect of the right breast approximately 10 cm from the nipple. This correlated to the biopsy area. Underwent partial mastectomy with SLN biopsy 10/05/2013. The final pathology revealed an invasive poorly differentiated ductal carcinoma measuring 1.3 cm in size. There was a single focus. DCIS was present measuring 2 mm in maximum dimension. The grade of the cancer was 3. Margins were negative. The closest was 6 mm. Lymphovascular invasion was not identified. One sentinel lymph node was retrieved. It was negative. Received two cycles of TC. Admitted for severe PAGE. Admitted 12/17/2013 due to increase in thigh pain and dyspnea. Markedly elevated CK. No increase in serum Cr. Chemotherapy stopped after cycle #2. Was seen by ornamental plasterer helper at . 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 Completed radiation 03/26/2014. She started developing intermittent shortness of breath with exertion. She also has a cough that is a dry cough. She was taken off her PAM inhibitor but the cough has not changed. She had a PA and lateral chest film done on 10/22/2016 that demonstrated no abnormality. She then underwent a CT scan the chest without IV contrast on 11/06/2016. Two nodules were observed in the pulmonary parenchyma. One was located in the right lower lobe and the second was located in the lingular lobe. Each measured 8 mm and were thought to be consistent with metastatic disease. CT of the abdomen and pelvis on 11/20/2016 as well as repeat CT chest with IV contrast demonstrated a thick walled gallbladder suspicious for cystitis, chronic and redemonstration of the lung nodules. No concern for metastatic disease in the abdomen or pelvis. Brain MRI on 11/23/2016 was normal. PET scan demonstrated multiple foci of increased glucose concentration manifested in the right axilla, significant region generating a standard uptake value of 7.6. The maximal axial diameter the largest individual hypermetabolic soft tissue density on review of the CT of the thorax was approximately 23.1 mm in transverse dimension. An ultrasound of the right axilla and subclavicular region on 12/02/2016 demonstrated that within the right axilla there was a cluster of abnormal appearing hypoechoic nodules. The largest measured 2.3 x 1.50 1.4 cm. In the subclavicular region there was also evidence of several hypoechoic nodules the largest measuring 2.75 x 2.85 1.5 cm. She then underwent a right axillary core needle biopsy on 12/07/2016. The pathology demonstrated a poorly differentiated metastatic carcinoma. The specimen was negative for both ER and KS as well as HER- 2. I discussed the case with the pathologist today who told me that histologically/morphologically the specimen was consistent with her previous specimen of breast cancer. The pathologist will issue an addendum quantifying ER and KS 0 as well as HER-2 at 0. She had a stress test and echocardiogram about 3 years ago and had no evidence of coronary artery disease. She had LV concentric hypertrophy with preserved ejection fraction. She underwent port placement along with right axillary lymph node dissection on 12/24/2016. MICROSCOPIC DIAGNOSIS Right axillary lymph nodes, regional lymph adenectomy: One out of seven lymph nodes with metastatic poorly differentiated carcinoma. See comment. COMMENT Immunohistochemistry ([id number]) does not rule out a breast primary. There is focal perinodal extension of tumor. Clinical correlation is suggested. ANTIBODY / CLONE RESULT Block 1 Mammaglobin (31A5) negative GATA3 (L50-823) positive, rare, dim CK8 (79nebdJ30) positive Ki-67 (30-9) positive, moderate to high ER (6F11) negative 0% KS (1E2) negative 0% CK19 (A53-B/A2.26) positive Cyclin D1/BCL-1 (SP4) positive CEA (11-7/TF-3HB-1) negative SHELLI (E29) positive CK20 (KS20.8) negative Villin (CWWB1) negative RCC (PN-15) negative CA125 (OC125) positive Current therapy: 1) Cisplatin (+/- PARP inhibitor on trial). Presents for ongoing oncologic management. Interim history: She says the shortness of breath has been improved in the last few weeks. She was seen by her PCP and was diagnosed with costochondritis. However her epigastric pain has resolved. She has occasional mild nausea that is sporadic and bleeding. Not related to food or bowel movements. No other complaints. No respiratory symptoms including cough, sputum production or wheezing. Her appetite tends to fluctuate somewhat but weight is stable. Chronic symptoms of neuropathy in the lower part of the lower extremities bilaterally from her history of diabetes are stable. PMH, medications and allergies as below personally reviewed by me today. Any changes documented in appropriate section. ROS: Constitutional: Denies episodes of fever and night sweats. Neuro: Denies DOZIER, vertigo, dizziness and imbalance. HEENT: No recent change in voice, vision or hearing. Resp: See above. CVS: Denies exertional chest pain, PND, orthopnea and LE edema. GI: Denies dysgeusia. Denies symptoms of stomatitis. Denies dysphagia and odynophagia. Denies reflux, change in bowel habits and abdominal pain. : Denies dysuria or gross hematuria. No symptoms of bladder outlet obstruction. Endo: Denies hot flashes. Denies polyuria and polydipsia. Denies heat and cold intolerance. Musculoskeletal: See above. Derm: Denies rash. Denies jaundice and diffuse pruritis. Heme: Denies unusual bleeding and unexplained bruising. Psych: Normal mood. PHYSICAL EXAM: Vitals: Blood pressure 155/67, pulse 94, temperature 37.2 ?C (98.9 ?F), temperature source Temporal Artery, weight 92.5 kg (204 lb). Well-appearing and in no acute distress. EYES: Sclerae are anicteric bilaterally. ENT: Oral mucosa is unremarkable. There is no sign of thrush or mucositis. NECK: Supple. LYMPHATIC: There is a new firmly enlarged mobile right supraclavicular lymph node measuring approximately 1-1/2 cm close to the base of the neck. No other peripheral adenopathy. Specifically no other supraclavicular, cervical, axillary or inguinal adenopathy. RESPIRATORY: Inspiratory breath sounds are of normal intensity in all norris. No rales, wheezes or rhonchi. CARDIOVASCULAR: Rhythm is regular. Normal intensity S1/S2. There is no gallop or murmur. ABDOMEN: The abdomen is nondistended. No organomegaly. No tenderness. Extremities: No swelling or edema. SKIN: No jaundice or rash. No petechiae. NEUROLOGIC: station attendant II-XII are grossly intact. No focal motor weakness. MUSCULOSKELETAL: No muscle wasting. 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 Comprehensive BRCA 1 and 2 testing (scanned 12/05/2013) no mutation Complicated by myositis during adjuvant chemotherapy. -KPS is 90%. -Biopsy-proven local regional recurrence. 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 -Progression of disease by exam. -Discussed with the patient obtaining CT of the neck, chest abdomen and pelvis. Briefly discussed coming off trial and going on treatment with carbo/gem. She was very overwhelmed by this and left prematurely but is in agreement with the above plan. Plan: -Repeat CT C/A/P this week. Add CT neck. -Review results next week and plan to start gem/carbo. Clifford Barakat DO CNOVSP Observed: 10/04/2017 Status: COMPLETED Source: [place] 9:30 AM [facility] REPOSITORY Visit (SP) Office (DANYEL) PEDRO LUIS WILCOX ([id number]) 1970 F Date Time Provider Department 10/04/17 9:30 AM CLIFFORD BARAKAT During your visit today, we recorded the following information about you: Temperature Pulse Blood pressure Weight 98.9 degrees 94/minute 155/67 92.5 kg Federica Pimentel LPN 10/04/2017 10:19 AM Signed Est study patient. Labs completed [facility] this morning. Federica Pimentel TIFFANIE Clifford Barakat DO 10/04/2017 1:00 PM Signed Diagnosis: 1) Breast cancer. 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 Her mother has a h/o breast cancer, so patient had been undergoing annual mammogram. The patient underwent a screening mammogram on 08/30/2013. A 1.6 cm nodular density was appreciated in the tail of the right breast. She underwent targeted ultrasound the same day. That study revealed a 9 mm hypoechoic solid nodule at the 10:00 position of the breast measuring 6 cm from the nipple. Stereotactic core needle biopsy on 09/13/2013. The tissue revealed invasive poorly differentiated ductal carcinoma. The specimen was negative for both estrogen and progesterone receptors. Both were quantified at 0%. HER-2 was 2+ an immunostain and nonamplified by FISH testing. The patient underwent an MRI of the breast on 09/20/2013. The study revealed that the left breast had no suspicious findings. In the right breast there was a 1.6 cm abnormal enhancing mass in the superior outer aspect of the right breast approximately 10 cm from the nipple. This correlated to the biopsy area. Underwent partial mastectomy with SLN biopsy 10/05/2013. The final pathology revealed an invasive poorly differentiated ductal carcinoma measuring 1.3 cm in size. There was a single focus. DCIS was present measuring 2 mm in maximum dimension. The grade of the cancer was 3. Margins were negative. The closest was 6 mm. Lymphovascular invasion was not identified. One sentinel lymph node was retrieved. It was negative. Received two cycles of TC. Admitted for severe PAGE. Admitted 12/17/2013 due to increase in thigh pain and dyspnea. Markedly elevated CK. No increase in serum Cr. Chemotherapy stopped after cycle #2. Was seen by ornamental plasterer helper at . 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 Completed radiation 03/26/2014. She started developing intermittent shortness of breath with exertion. She also has a cough that is a dry cough. She was taken off her PAM inhibitor but the cough has not changed. She had a PA and lateral chest film done on 10/22/2016 that demonstrated no abnormality. She then underwent a CT scan the chest without IV contrast on 11/06/2016. Two nodules were observed in the pulmonary parenchyma. One was located in the right lower lobe and the second was located in the lingular lobe. Each measured 8 mm and were thought to be consistent with metastatic disease. CT of the abdomen and pelvis on 11/20/2016 as well as repeat CT chest with IV contrast demonstrated a thick walled gallbladder suspicious for cystitis, chronic and redemonstration of the lung nodules. No concern for metastatic disease in the abdomen or pelvis. Brain MRI on 11/23/2016 was normal. PET scan demonstrated multiple foci of increased glucose concentration manifested in the right axilla, significant region generating a standard uptake value of 7.6. The maximal axial diameter the largest individual hypermetabolic soft tissue density on review of the CT of the thorax was approximately 23.1 mm in transverse dimension. An ultrasound of the right axilla and subclavicular region on 12/02/2016 demonstrated that within the right axilla there was a cluster of abnormal appearing hypoechoic nodules. The largest measured 2.3 x 1.50 1.4 cm. In the subclavicular region there was also evidence of several hypoechoic nodules the largest measuring 2.75 x 2.85 1.5 cm. She then underwent a right axillary core needle biopsy on 12/07/2016. The pathology demonstrated a poorly differentiated metastatic carcinoma. The specimen was negative for both ER and KS as well as HER-2. I discussed the case with the pathologist today who told me that histologically/morphologically the specimen was consistent with her previous specimen of breast cancer. The pathologist will issue an addendum quantifying ER and KS 0 as well as HER-2 at 0. She had a stress test and echocardiogram about 3 years ago and had no evidence of coronary artery disease. She had LV concentric hypertrophy with preserved ejection fraction. She underwent port placement along with right axillary lymph node dissection on 12/24/2016. MICROSCOPIC DIAGNOSIS Right axillary lymph nodes, regional lymph adenectomy: One out of seven lymph nodes with metastatic poorly differentiated carcinoma. See comment. COMMENT Immunohistochemistry ([id number]) does not rule out a breast primary. There is focal perinodal extension of tumor. Clinical correlation is suggested. ANTIBODY / CLONE RESULT Block 1 Mammaglobin (31A5) negative GATA3 (L50-823) positive, rare, dim CK8 (28trxuX86) positive Ki-67 (30-9) positive, moderate to high ER (6F11) negative 0% KS (1E2) negative 0% CK19 (A53-B/A2.26) positive Cyclin D1/BCL-1 (SP4) positive CEA (11-7/TF-3HB-1) negative SHELLI (E29) positive CK20 (KS20.8) negative Villin (CWWB1) negative RCC (PN-15) negative CA125 (OC125) positive Current therapy: 1) Cisplatin (+/- PARP inhibitor on trial). Presents for ongoing oncologic management. Interim history: She says the shortness of breath has been improved in the last few weeks. She was seen by her PCP and was diagnosed with costochondritis. However her epigastric pain has resolved. She has occasional mild nausea that is sporadic and bleeding. Not related to food or bowel movements. No other complaints. No respiratory symptoms including cough, sputum production or wheezing. Her appetite tends to fluctuate somewhat but weight is stable. Chronic symptoms of neuropathy in the lower part of the lower extremities bilaterally from her history of diabetes are stable. PMH, medications and allergies as below personally reviewed by me today. Any changes documented in appropriate section. ROS: Constitutional: Denies episodes of fever and night sweats. Neuro: Denies DOZIER, vertigo, dizziness and imbalance. HEENT: No recent change in voice, vision or hearing. Resp: See above. CVS: Denies exertional chest pain, PND, orthopnea and LE edema. GI: Denies dysgeusia. Denies symptoms of stomatitis. Denies dysphagia and odynophagia. Denies reflux, change in bowel habits and abdominal pain. : Denies dysuria or gross hematuria. No symptoms of bladder outlet obstruction. Endo: Denies hot flashes. Denies polyuria and polydipsia. Denies heat and cold intolerance. Musculoskeletal: See above. Derm: Denies rash. Denies jaundice and diffuse pruritis. Heme: Denies unusual bleeding and unexplained bruising. Psych: Normal mood. PHYSICAL EXAM: Vitals: Blood pressure 155/67, pulse 94, temperature 37.2 ?C (98.9 ?F), temperature source Temporal Artery, weight 92.5 kg (204 lb). Well-appearing and in no acute distress. EYES: Sclerae are anicteric bilaterally. ENT: Oral mucosa is unremarkable. There is no sign of thrush or mucositis. NECK: Supple. LYMPHATIC: There is a new firmly enlarged mobile right supraclavicular lymph node measuring approximately 1-1/2 cm close to the base of the neck. No other peripheral adenopathy. Specifically no other supraclavicular, cervical, axillary or inguinal adenopathy. RESPIRATORY: Inspiratory breath sounds are of normal intensity in all norris. No rales, wheezes or rhonchi. CARDIOVASCULAR: Rhythm is regular. Normal intensity S1/S2. There is no gallop or murmur. ABDOMEN: The abdomen is nondistended. No organomegaly. No tenderness. Extremities: No swelling or edema. SKIN: No jaundice or rash. No petechiae. NEUROLOGIC: station attendant II-XII are grossly intact. No focal motor weakness. MUSCULOSKELETAL: No muscle wasting. 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 Comprehensive BRCA 1 and 2 testing (scanned 12/05/2013) no mutation Complicated by myositis during adjuvant chemotherapy. -KPS is 90%. -Biopsy-proven local regional recurrence. 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 -Progression of disease by exam. -Discussed with the patient obtaining CT of the neck, chest abdomen and pelvis. Briefly discussed coming off trial and going on treatment with carbo/gem. She was very overwhelmed by this and left prematurely but is in agreement with the above plan. Plan: -Repeat CT C/A/P this week. Add CT neck. -Review results next week and plan to start gem/carbo. Clifford Barakat DO Referring Provider: CLIFFORD BARAKAT [[id number]] Allergies As of Date: 10/04/2017 (No Known Allergies) Date Reviewed: 10/04/2017 Reviewed by: Federica Pimentel LPN - Fully Assessed Reason for Visit: Established Patient [175] Primary Visit Diagnosis:Malignant neoplasm of upper-outer quadrant of right breast in female, estrogen receptor negative (HCC) [C50.411, Z17.1] Other Visit Diagnoses:Localized swelling, mass or lump of neck [R22.1] Malignant neoplasm metastatic to left lung (HCC) [C78.02] Supraclavicular lymphadenopathy [R59.0] Order(s):NM BONE WHOLE BODY [[id number]] Order #: [id number] FUTURE CT NECK SOFT TISSUE W IVCON [[id number]] Order #: [id number] FUTURE iv contrast (will be provided with radiology test)Inject 1 Each intravenously one time only for [address] Neck W IVCON No IV access, insert saline lock prior to the sedation, infusion, injection for imaging exam. Discontinue saline lock post exam. If Pt. has a central line or IVAD, may access for administration according to line specific nursing protocol. Once exam is complete flush line and de-access according to line specific nursing protocol in the CT contrast administration guidelines link.Disp: 1 EachRfl: 0 Prescriptions as of 10/04/2017 Sig: GABAPENTIN 300 MG CAPSULE Take 300 mg by mouth three ti* TIMOLOL 0.5 % EYE DROPS Use 1 Drop in both eyes once * DICYCLOMINE 20 MG TABLET Take 20 mg by mouth every 8 h* METOCLOPRAMIDE 10 MG TABLET Take 1 tablet by mouth every * LORAZEPAM 1 MG TABLET Take 1 tablet by mouth every * LIDOCAINE-PRILOCAINE 2.5 %-2.* Apply 1 application to affect* CITALOPRAM 20 MG TABLET Take 1 tablet by mouth once d* CLONAZEPAM 0.5 MG TABLET 1 tablet twice daily. PRN NITROFURANTOIN MONOHYDRATE AND * Take 100 mg by mouth twice da* EMPAGLIFLOZIN 10 MG TABLET Take 10 mg by mouth once gamaliel* VITAMIN B COMPLEX CAPSULE Take 1 capsule by mouth twice* CREON ORAL Take 6,000 Units by mouth. Wi* VALACYCLOVIR 500 MG TABLET Take 500 mg by mouth as neede* ERGOCALCIFEROL (VITAMIN D2) 5* Take 50,000 Units by mouth on* * INSULIN GLARGINE (U-100) 100 * Take 50 in am and 70 units in* * HUMALOG KWIKPEN (U-100) INSUL* 15 in am, 15 noon, 20 in philip IV CONTRAST (RADIOLOGY PROCED* Inject 1 Each intravenously o* Problem List As Of Date 10/04/2017 Noted Resolved THYROID NODULE [E04.1] INVALID FOR* More... Anxiety State, Unspecified [F41.1] 01/22/2009 Depressive Disorder, not Elsewhere Classified [* Priority: Moderate More... DM w/o complication type II, uncontrolled [E11.*INVALID FOR* Priority: Severe More... Other Malaise and Fatigue [R53.81, R53.83] INVALID FOR*01/22/2009 More... HYPERLIPIDEMIA NEC/NOS [E78.5] INVALID FOR* FIBROMYALGIA [[id number]] INVALID FOR* Priority: Moderate OVERWEIGHT [E66.9] INVALID FOR* OTHER HAMMER TOE [M20.40] INVALID FOR* More... URIN TRACT INFECTION RECURRENT [N39.0] INVALID FOR*01/21/2016 More... GENITAL HERPES NOS [A60.00] INVALID FOR* Tobacco Use Disorder [F17.200] INVALID FOR* Priority: Moderate More... CONGENITAL PES PLANUS [Q66.50] INVALID FOR* Displacement of Lumbar Intervertebral Disc with*INVALID FOR* Priority: Moderate More... More... Routine Gynecological Examination [Z01.419] INVALID FOR* Class: Chronic More... 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*INVALID FOR* Malignant neoplasm metastatic to left lung (HCC*INVALID FOR* Examination of participant in clinical trial [Z*INVALID FOR* Visit Notes: >> Federica Pimentel LPN fozia Oct 04, 2017 9:28 AM Status: Signed Est study patient. Labs completed [facility] this morning. Federica Pimentel LPN Encounter Status:Closed by CLIFFORD BARAKAT DO on 10/04/17 CBC W/DIFF, AUTOMATED Collected: 10/04/2017 Status: F Source: [place] 8:18 AM [facility] [place] REPOSITORY TYPE CODE TESTS RESULT OUT OF RANGE REFERENCE UNITS LAB L100.1000 4.4-11.0 K/mm3 Normal WBC 4.9 LAB L100.1200 4.2-5.4 M/mm3 Low RBC 3.38 LAB L100.1300 12.0-15.0 g/dl Low HGB 10.6 LAB L100.1400 37-47 % Low HCT 32.0 LAB L100.1500 81-99 fL Normal MCV 94.7 LAB L100.1600 27.0-32.0 pg Normal MCH 31.4 LAB L100.1700 32-36 g/gl Normal MCHC 33.1 LAB L100.1810 11.6-14.6 % Normal RDW CV 13.0 LAB L100.1820 35.1-43.9 fl High RDW SD 44.9 LAB L100.1900 150-450 K/mm3 Normal PLT 304 LAB L100.2000 6.2-12.0 fl Normal MPV 9.0 LAB L100.2100 47-70 % Normal NEUT% 58.0 LAB L100.2200 19-41 % Normal LY% 35.5 LAB L100.2300 0-10 % Normal MONO% 5.3 LAB L100.2400 0-5 % Normal EO% 1.0 LAB L100.2500 0-1 % Normal BASO% 0.2 LAB L100.2550 0.0-0.9 % Normal IM GRAN % 0.000 Result Comment: IG% - Immature Granulocytes (promyelocytes, myelocytes and metamyelocytes) > 1% indicates that a LEFT SHIFT is Present. LAB L100.2620 2.0-7.7 X10 3/uL Normal Absolute Neut 2.8 LAB L100.2720 0.83-4.51 X10 3/ul Normal Absolute Lymph 1.74 Performed By: #### L100.0100 #### [facility] [address] [place], [place], [address] COMPREHENSIVE METABOLIC Collected: 10/04/2017 Status: F Source: [facility] 8:18 AM [facility] [place] REPOSITORY TYPE CODE TESTS RESULT OUT OF RANGE REFERENCE UNITS LAB L501.0100 74-106 mg/dL High GLU 191 Result Comment: Fasting Glucose result greater than or equal to 126 mg/dL suggests DIABETES MELLITUS per A.D.A. criteria. Please note revised GLUCOSE reference range effective 2017. LAB L501.1000 7-18 mg/dL High BUN 26 LAB L501.1100 0.55-1.02 mg/dL Normal CREAT,SERUM 0.64 Result Comment: The validity of the calculated GFR AND GFRAA in patients over 70 years has not been determined. Clinical correlation is essential. LAB L501.1110 >60 mL/min Normal EST GFR 104 Result Comment: Non- GFR Calc LAB L501.1115 >60 mL/min Normal EST GFR - AA 126 Result Comment: GFR Calc LAB L501.1300 10-20 RATIO High BUN/CRE 40.3 LAB L501.1500 6.4-8.2 g/dL T Normal PROT 7.3 LAB L501.1800 3.2-5.0 g/dL Normal ALB 3.4 LAB L501.1950 2.2-4.2 g/dL Normal GLOB 3.9 LAB L501.2000 0.9-2.4 RATIO Normal A/G 0.9 LAB L501.2200 8.5-10.1 mg/dL CA Normal 8.8 LAB L501.4100 15-37 U/L Low AST 11 LAB L501.4305 45-117 U/L Normal ALK P 82 LAB L501.4405 13-56 U/L Normal ALT 22 LAB L501.4600 0.20-1.00 mg/dL Low T BILI 0.10 LAB L501.5300 136-145 mmol/L NA Normal 138 LAB L501.5600 3.5-5.1 mmol/L K Normal 4.0 LAB L501.5900 98-107 mmol/L CL Normal 103 LAB L501.6100 21.0-32.0 mmol/L Normal CO2 30.0 LAB L501.6200 5-15 Normal GAP 5 Performed By: #### L500.4050, L501.5200 #### [facility] [address] [place], [place], [id number] MAGNESIUM Collected: 10/04/2017 Status: F Source: [place] 8:18 AM [facility] [place] REPOSITORY TYPE CODE TESTS RESULT OUT OF RANGE REFERENCE UNITS LAB L501.5200 1.6-2.6 mg/dL Normal MG 1.7 Performed By: #### L500.4050, L501.5200 #### [facility] [address] [place], [address] HOSP Observed: 10/04/2017 Status: COMPLETED Source: [place] 12:00 AM [facility] REPOSITORY Patient Update (HEMAWS) PEDRO LUIS WILCOX ([id number]) 1970 F Date Time Provider Department 10/04/17 EMRE MCDONOUGH (RN) DANYEL During your visit today, we recorded the following information about you: Emre Mcdonough RN 10/04/2017 12:38 PM Addendum IRB# [id number]. ?Randomized on: 01/28/2017. ?ARM: Blinded. Reporting Period: 09/13/17 - 10/04/17: ?? Patient is here?for Cycle# 12. ?Physical exam, toxicities, labs, and medications reviewed with Clifford Barakat DO. ECOG Score: 0- Fully active, able to carry on all pre-disease performance w/o restriction.? ?? Toxicities: CTCAE V. 4 ? Nausea, grade 1, Unlikely related. Patient states she has had some fleeting nausea this past weekend and again this am. Appetite not changed. Fatigue, grade 1, Possible related. 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 She just feels tired. Neuropathy in fingers, denies.? And, no change in lower extremities that is chronic for patient. Arthralgia, denies. ?? Epigastric pain, denies this past cycle. Breathing is better. She has re-scheduled her Echo twice and is scheduled for 10/10/17 at [facility]. She states that she saw Dr. Person and he thinks it is Costochondritis. He has given her some exercises to do. This is all unrelated to study drug per Dr. Barakat. He does still want patient to get Echo. ?? Labs earlier today drawn at [facility]: CBC Hgb 10.6, grade 1, definitely related Mg, 1.7 and WNL. Glucose, 191, non-fasting, Does not meet reporting requirements. ? Menopausal Status: Post Contraception: Hysterectomy LMP: na ?? Research Labs: (Time/Type/Sent to): ?CTC at progression due and patient refusing to do this today but maybe at follow up visit after scans. QOL / Questionnaires: N/A? ? The patient returned study medication diary and 1 bottles of Veliparib vs Placebo with 32 pills remaining. States all other bottles empty. Pill bottle returned to pharmacy. Patient is NOT compliant with study medication self administration. Patient missed a dose on 09/21/17. Patient has taken her dose for this am. See Dr. Barakat's note regarding progression found on exam. Dr. Barkaat would like to move up Bone Scan with CT's C/A/P to [facility] and add a CT Neck. Patient will have a follow up after scans to discuss treatment options. Patent very emotional, support given. She did not want to stay to get scans scheduled and just asked to leave as soon as she could. Patient alone at appointment. Nurse offered to call someone for her but she refused and verbalized that she would like to go home. Will call patient later to check on her. Pharmacy aware of no further study medication to dispense to patient. Emre Mcdonough RN Allergies As of Date: 10/04/2017 (No Known Allergies) Date Reviewed: 10/04/2017 Reviewed by: Federica Pimentel LPN - Fully Assessed Reason for Visit: Clinical Trial Nurse Note [Other] Cmt: [id number] Prescriptions as of 10/04/2017 Sig: IV CONTRAST (RADIOLOGY PROCED* Inject 1 Each intravenously o* GABAPENTIN 300 MG CAPSULE Take 300 mg by mouth three ti* TIMOLOL 0.5 % EYE DROPS Use 1 Drop in both eyes once * DICYCLOMINE 20 MG TABLET Take 20 mg by mouth every 8 h* METOCLOPRAMIDE 10 MG TABLET Take 1 tablet by mouth every * LORAZEPAM 1 MG TABLET Take 1 tablet by mouth every * LIDOCAINE-PRILOCAINE 2.5 %-2.* Apply 1 application to affect* CITALOPRAM 20 MG TABLET Take 1 tablet by mouth once d* CLONAZEPAM 0.5 MG TABLET 1 tablet twice daily. PRN NITROFURANTOIN MONOHYDRATE AND * Take 100 mg by mouth twice da* EMPAGLIFLOZIN 10 MG TABLET Take 10 mg by mouth once gamaliel* VITAMIN B COMPLEX CAPSULE Take 1 capsule by mouth twice* CREON ORAL Take 6,000 Units by mouth. Wi* VALACYCLOVIR 500 MG TABLET Take 500 mg by mouth as neede* ERGOCALCIFEROL (VITAMIN D2) 5* Take 50,000 Units by mouth on* * INSULIN GLARGINE (U-100) 100 * Take 50 in am and 70 units in* * HUMALOG KWIKPEN (U-100) INSUL* 15 in am, 15 noon, 20 in philip Problem List As Of Date 10/04/2017 Noted Resolved THYROID NODULE [E04.1] INVALID FOR* More... Anxiety State, Unspecified [F41.1] 01/22/2009 Depressive Disorder, not Elsewhere Classified [* Priority: Moderate More... DM w/o complication type II, uncontrolled [E11.*INVALID FOR* Priority: Severe More... Other Malaise and Fatigue [R53.81, R53.83] INVALID FOR*01/22/2009 More... HYPERLIPIDEMIA NEC/NOS [E78.5] INVALID FOR* FIBROMYALGIA [[id number]] INVALID FOR* Priority: Moderate OVERWEIGHT [E66.9] INVALID FOR* OTHER HAMMER TOE [M20.40] INVALID FOR* More... URIN TRACT INFECTION RECURRENT [N39.0] INVALID FOR*01/21/2016 More... GENITAL HERPES NOS [A60.00] INVALID FOR* Tobacco Use Disorder [F17.200] INVALID FOR* Priority: Moderate More... CONGENITAL PES PLANUS [Q66.50] INVALID FOR* Displacement of Lumbar Intervertebral Disc with*INVALID FOR* Priority: Moderate More... More... Routine Gynecological Examination [Z01.419] INVALID FOR* Class: Chronic More... 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*INVALID FOR* Malignant neoplasm metastatic to left lung (HCC*INVALID FOR* Examination of participant in clinical trial [Z*INVALID FOR* Visit Notes: >> Emre (Brittney) Ceasar Minaya 19, 2018 11:14 AM Status: Addendum IRB# [id number]. ?Randomized on: 01/28/2017. ?ARM: Blinded. Reporting Period: 09/13/17 - 10/04/17: ?? Patient is here?for Cycle# 12. ?Physical exam, toxicities, labs, and medications reviewed with Clifford Barakat DO. ECOG Score: 0- Fully active, able to carry on all pre-disease performance w/o restriction.? ?? Toxicities: CTCAE V. 4 ? Nausea, grade 1, Unlikely related. Patient states she has had some fleeting nausea this past weekend and again this am. Appetite not changed. Fatigue, grade 1, Possible related. 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 She just feels tired. Neuropathy in fingers, denies.? And, no change in lower extremities that is chronic for patient. Arthralgia, denies. ?? Epigastric pain, denies this past cycle. Breathing is better. She has re-scheduled her Echo twice and is scheduled for 10/10/17 at [facility]. She states that she saw Dr. Person and he thinks it is Costochondritis. He has given her some exercises to do. This is all unrelated to study drug per Dr. Barakat. He does still want patient to get Echo. ?? Labs earlier today drawn at [facility]: CBC Hgb 10.6, grade 1, definitely related Mg, 1.7 and WNL. Glucose, 191, non-fasting, Does not meet reporting requirements. ? Menopausal Status: Post Contraception: Hysterectomy LMP: na ?? Research Labs: (Time/Type/Sent to): ?CTC at progression due and patient refusing to do this today but maybe at follow up visit after scans. QOL / Questionnaires: N/A? ? The patient returned study medication diary and 1 bottles of Veliparib vs Placebo with 32 pills remaining. States all other bottles empty. Pill bottle returned to pharmacy. Patient is NOT compliant with study medication self administration. Patient missed a dose on 09/21/17. Patient has taken her dose for this am. See Dr. Barakat's note regarding progression found on exam. Dr. Barakat would like to move up Bone Scan with CT's C/A/P to [facility] and add a CT Neck. Patient will have a follow up after scans to discuss treatment options. Patent very emotional, support given. She did not want to stay to get scans scheduled and just asked to leave as soon as she could. Patient alone at appointment. Nurse offered to call someone for her but she refused and verbalized that she would like to go home. Will call patient later to check on her. Pharmacy aware of no further study medication to dispense to patient. Emre Mcdonough RN Encounter Status:Closed by EMRE MCDONOUGH on 10/04/17 CNPN Observed: 10/04/2017 Status: COMPLETED Source: [place] 12:00 AM [facility] REPOSITORY Telephone (HEMAWS) PEDRO LUIS WILCOX ([id number]) 1970 F Date Time Provider Department 10/04/17 CLIFFORD BARAKAT During your visit today, we recorded the following information about you: Estrella Watkins PSR 10/04/2017 11:[address] Barakat's OV today (10/04/17), this PSR contacted [facility] and rescheduled PT's CT for the earliest date of 10/13 @ 1:00 PM with a 4 hour fast and added the neck CT to the existing order. Additionally scheduled the whole body bone scan at [facility] on 10/06 with an 8:00 AM Dose and 12:00 Scan. Left voicemail for PT to return call to obtain the above appointment schedule. When PT calls, please advise, document and close. If PT wishes to reschedule the above appointments, she may call and reschedule as her schedule permits. Estrella Watkins PSR Emre Mcdonough RN 10/04/2017 2:24 PM Signed Call to patient and she states that she her CT C/A/P and neck scheduled for tomorrow (10/05/17). She is aware that the bone scan is scheduled for 10/06/17. She is wondering if ok to change this date? Dr. Barakat when would you like to see patient back in office? And how soon do we need to look at schedule to get her started on chemo? Thanks, BRITTNEY Ruby DO 10/04/2017 2:58 PM Signed I will be out of the office on Tuesday and Tuesday. I can see her Tuesday at 2 PM. I would like the entire hour used as an established complex visit please. DO Norah Banda 10/04/2017 3:17 PM Signed Patient has been scheduled as requested by for Tuesday10/11/17 @ 2:00 pm, should I contact patient about this appointment? Norah Mcdonough RN 10/04/2017 3:27 PM Signed Yes, please contact patient just in case it doesn't work for her. She is expecting the call. BRITTNEY Ruby 10/04/2017 5:03 PM Signed I called and left Pedro Luis a detailed message regarding this appointment and asked her to call us if this date and time did note work. Norah Quintero Allergies As of Date: 10/04/2017 (No Known Allergies) Date Reviewed: 10/04/2017 Reviewed by: Federica Pimentel LPN - Fully Assessed Reason for Visit: Future Appointment [256] Prescriptions as of 10/04/2017 Sig: IV CONTRAST (RADIOLOGY PROCED* Inject 1 Each intravenously o* GABAPENTIN 300 MG CAPSULE Take 300 mg by mouth three ti* TIMOLOL 0.5 % EYE DROPS Use 1 Drop in both eyes once * DICYCLOMINE 20 MG TABLET Take 20 mg by mouth every 8 h* METOCLOPRAMIDE 10 MG TABLET Take 1 tablet by mouth every * LORAZEPAM 1 MG TABLET Take 1 tablet by mouth every * LIDOCAINE-PRILOCAINE 2.5 %-2.* Apply 1 application to affect* CITALOPRAM 20 MG TABLET Take 1 tablet by mouth once d* CLONAZEPAM 0.5 MG TABLET 1 tablet twice daily. PRN NITROFURANTOIN MONOHYDRATE AND * Take 100 mg by mouth twice da* EMPAGLIFLOZIN 10 MG TABLET Take 10 mg by mouth once gamaliel* VITAMIN B COMPLEX CAPSULE Take 1 capsule by mouth twice* CREON ORAL Take 6,000 Units by mouth. Wi* VALACYCLOVIR 500 MG TABLET Take 500 mg by mouth as neede* ERGOCALCIFEROL (VITAMIN D2) 5* Take 50,000 Units by mouth on* * INSULIN GLARGINE (U-100) 100 * Take 50 in am and 70 units in* * HUMALOG KWIKPEN (U-100) INSUL* 15 in am, 15 noon, 20 in philip Problem List As Of Date 10/04/2017 Noted Resolved THYROID NODULE [E04.1] INVALID FOR* More... Anxiety State, Unspecified [F41.1] 01/22/2009 Depressive Disorder, not Elsewhere Classified [* Priority: Moderate More... DM w/o complication type II, uncontrolled [E11.*INVALID FOR* Priority: Severe More... Other Malaise and Fatigue [R53.81, R53.83] INVALID FOR*01/22/2009 More... HYPERLIPIDEMIA NEC/NOS [E78.5] INVALID FOR* FIBROMYALGIA [[id number]] INVALID FOR* Priority: Moderate OVERWEIGHT [E66.9] INVALID FOR* OTHER HAMMER TOE [M20.40] INVALID FOR* More... URIN TRACT INFECTION RECURRENT [N39.0] INVALID FOR*01/21/2016 More... GENITAL HERPES NOS [A60.00] INVALID FOR* Tobacco Use Disorder [F17.200] INVALID FOR* Priority: Moderate More... CONGENITAL PES PLANUS [Q66.50] INVALID FOR* Displacement of Lumbar Intervertebral Disc with*INVALID FOR* Priority: Moderate More... More... Routine Gynecological Examination [Z01.419] INVALID FOR* Class: Chronic More... 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*INVALID FOR* Malignant neoplasm metastatic to left lung (HCC*INVALID FOR* Examination of participant in clinical trial [Z*INVALID FOR* Encounter Status:Closed by EMRE MCDONOUGH on 10/04/17 PROGRESS Observed: 09/13/2017 Status: COMPLETED Source: [place] 12:43 PM [facility] [place] REPOSITORY HNO ID: [id number] Author: Clifford Barakat Service: (none) Author Type: Physician Type: Progress Notes Filed: 09/13/2017 12:48 PM Note Text: Diagnosis: 1) Breast cancer. 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 Her mother has a h/o breast cancer, so patient had been undergoing annual mammogram. The patient underwent a screening mammogram on 08/30/2013. A 1.6 cm nodular density was appreciated in the tail of the right breast. She underwent targeted ultrasound the same day. That study revealed a 9 mm hypoechoic solid nodule at the 10:00 position of the breast measuring 6 cm from the nipple. Stereotactic core needle biopsy on 09/13/2013. The tissue revealed invasive poorly differentiated ductal carcinoma. The specimen was negative for both estrogen and progesterone receptors. Both were quantified at 0%. HER-2 was 2+ an immunostain and nonamplified by FISH testing. The patient underwent an MRI of the breast on 09/20/2013. The study revealed that the left breast had no suspicious findings. In the right breast there was a 1.6 cm abnormal enhancing mass in the superior outer aspect of the right breast approximately 10 cm from the nipple. This correlated to the biopsy area. Underwent partial mastectomy with SLN biopsy 10/05/2013. The final pathology revealed an invasive poorly differentiated ductal carcinoma measuring 1.3 cm in size. There was a single focus. DCIS was present measuring 2 mm in maximum dimension. The grade of the cancer was 3. Margins were negative. The closest was 6 mm. Lymphovascular invasion was not identified. One sentinel lymph node was retrieved. It was negative. Received two cycles of TC. Admitted for severe PAGE. Admitted 12/17/2013 due to increase in thigh pain and dyspnea. Markedly elevated CK. No increase in serum Cr. Chemotherapy stopped after cycle #2. Was seen by ornamental plasterer helper at . 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 Completed radiation 03/26/2014. She started developing intermittent shortness of breath with exertion. She also has a cough that is a dry cough. She was taken off her PAM inhibitor but the cough has not changed. She had a PA and lateral chest film done on 10/22/2016 that demonstrated no abnormality. She then underwent a CT scan the chest without IV contrast on 11/06/2016. Two nodules were observed in the pulmonary parenchyma. One was located in the right lower lobe and the second was located in the lingular lobe. Each measured 8 mm and were thought to be consistent with metastatic disease. CT of the abdomen and pelvis on 11/20/2016 as well as repeat CT chest with IV contrast demonstrated a thick walled gallbladder suspicious for cystitis, chronic and redemonstration of the lung nodules. No concern for metastatic disease in the abdomen or pelvis. Brain MRI on 11/23/2016 was normal. PET scan demonstrated multiple foci of increased glucose concentration manifested in the right axilla, significant region generating a standard uptake value of 7.6. The maximal axial diameter the largest individual hypermetabolic soft tissue density on review of the CT of the thorax was approximately 23.1 mm in transverse dimension. An ultrasound of the right axilla and subclavicular region on 12/02/2016 demonstrated that within the right axilla there was a cluster of abnormal appearing hypoechoic nodules. The largest measured 2.3 x 1.50 1.4 cm. In the subclavicular region there was also evidence of several hypoechoic nodules the largest measuring 2.75 x 2.85 1.5 cm. She then underwent a right axillary core needle biopsy on 12/07/2016. The pathology demonstrated a poorly differentiated metastatic carcinoma. The specimen was negative for both ER and KS as well as HER- 2. I discussed the case with the pathologist today who told me that histologically/morphologically the specimen was consistent with her previous specimen of breast cancer. The pathologist will issue an addendum quantifying ER and KS 0 as well as HER-2 at 0. She had a stress test and echocardiogram about 3 years ago and had no evidence of coronary artery disease. She had LV concentric hypertrophy with preserved ejection fraction. She underwent port placement along with right axillary lymph node dissection on 12/24/2016. MICROSCOPIC DIAGNOSIS Right axillary lymph nodes, regional lymph adenectomy: One out of seven lymph nodes with metastatic poorly differentiated carcinoma. See comment. COMMENT Immunohistochemistry ([id number]) does not rule out a breast primary. There is focal perinodal extension of tumor. Clinical correlation is suggested. ANTIBODY / CLONE RESULT Block 1 Mammaglobin (31A5) negative GATA3 (L50-823) positive, rare, dim CK8 (24ragfH82) positive Ki-67 (30-9) positive, moderate to high ER (6F11) negative 0% KS (1E2) negative 0% CK19 (A53-B/A2.26) positive Cyclin D1/BCL-1 (SP4) positive CEA (11-7/TF-3HB-1) negative SHELLI (E29) positive CK20 (KS20.8) negative Villin (CWWB1) negative RCC (PN-15) negative CA125 (OC125) positive Current therapy: 1) Cisplatin (+/- PARP inhibitor on trial). Presents for ongoing oncologic management. Interim history: [place] and since then she's been experiencing shortness of breath again. She describes it as an air hunger. She denies wheezing and cough. No chest pain but she's noticed more pain in her epigastrium. This is intermittent. No hemoptysis. No shortness of breath is persistent even at rest. PMH, medications and allergies as below personally reviewed by me today. Any changes documented in appropriate section. ROS: Constitutional: Denies episodes of fever and night sweats. Normal appetite. Neuro: Denies DOZIER, vertigo, dizziness and imbalance. HEENT: No recent change in voice, vision or hearing. Resp: See above. CVS: Denies exertional chest pain, PND, orthopnea and LE edema. GI: Denies dysgeusia. Denies symptoms of stomatitis. Denies dysphagia and odynophagia. Denies reflux, n/v, change in bowel habits and abdominal pain. : Denies dysuria or gross hematuria. No symptoms of bladder outlet obstruction. Endo: Denies hot flashes. Denies polyuria and polydipsia. Denies heat and cold intolerance. Musculoskeletal: See above. Derm: Denies rash. Denies jaundice and diffuse pruritis. Heme: Denies unusual bleeding and unexplained bruising. Psych: Normal mood. PHYSICAL EXAM: Vitals: Blood pressure 118/71, pulse 102, temperature 36.4 ?C (97.5 ?F), weight 91.9 kg (202 lb 8 oz). Well-appearing and in no acute distress. EYES: Sclerae are anicteric bilaterally. ENT: Oral mucosa is unremarkable. There is no sign of thrush or mucositis. NECK: Supple. LYMPHATIC: There is no palpable cervical, supraclavicular or inguinal adenopathy. No left axillary adenopathy. No adenopathy appreciated in right axilla. RESPIRATORY: Inspiratory breath sounds are of normal intensity in all norris. No rales, wheezes or rhonchi. CARDIOVASCULAR: Rhythm is regular. Normal intensity S1/S2. There is no gallop or murmur. ABDOMEN: The abdomen is nondistended. No organomegaly. No tenderness. Extremities: No swelling or edema. SKIN: No jaundice or rash. No petechiae. NEUROLOGIC: station attendant II-XII are grossly intact. No focal motor weakness. MUSCULOSKELETAL: No muscle wasting. 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 Comprehensive BRCA 1 and 2 testing (scanned 12/05/2013) no mutation Complicated by myositis during adjuvant chemotherapy. -KPS is 90%. -Biopsy-proven local regional recurrence. 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 -PET scan on 08/29/2017 suggested that the soft tissue mass in the axilla with scar and benign. One hypermetabolic significant lymph node on the right was visualized and noted to be of less SUV than on the baseline study. No other hypermetabolic abnormalities. -Discussed plan that we can consider coming off trial at progression in retreating with single agent cisplatin or consider carbo/gemcitabine. Plan: -Continue study drug for now. -OV 10/14. -CTs week of 10/19. -OV 10/25. (R06.00, R06.89) Dyspnea and respiratory abnormalities Assessment: -She is not tachypnic and does not appear to be short of breath while here for the office visit. -The patient had a comprehensive evaluation last summer for this symptom including CT to rule out PE. Echocardiogram was also performed. She was seen by a pack worker supervisor and was given reassurance that there were no respiratory abnormalities. -It's obvious that she is under a great deal of distress, anxiety and depression over her diagnosis of metastatic disease. We discussed this with her and I encouraged her to consider professional counseling which she has done on 2 occasions in the last couple months. She agreed to get back in the counseling. For the sake of thoroughness I've ordered a repeat echocardiogram to evaluate for potentially evolving pulmonary hypertension or other evidence of cardiomyopathy. Plan: -Resume counseling. -Echocardiogram. Clifford Barakat DO CNOVSP Observed: 09/13/2017 Status: COMPLETED Source: [place] 11:50 AM [facility] REPOSITORY Visit (SP) Office ([place]ANY[place]) PEDRO LUIS WILCOX ([id number]) 1970 F Date Time Provider Department 09/13/17 11:50 AM CLIFFORD BARAKAT During your visit today, we recorded the following information about you: Temperature Pulse Blood pressure Weight 97.5 degrees 102/minute 118/71 91.9 kg Orlando Langston LPN, LPN 09/13/2017 12:16 PM Signed Est pt, discuss recent lab results TIFFANIE Mann DO 09/13/2017 12:48 PM Signed Diagnosis: 1) Breast cancer. 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 Her mother has a h/o breast cancer, so patient had been undergoing annual mammogram. The patient underwent a screening mammogram on 08/30/2013. A 1.6 cm nodular density was appreciated in the tail of the right breast. She underwent targeted ultrasound the same day. That study revealed a 9 mm hypoechoic solid nodule at the 10:00 position of the breast measuring 6 cm from the nipple. Stereotactic core needle biopsy on 09/13/2013. The tissue revealed invasive poorly differentiated ductal carcinoma. The specimen was negative for both estrogen and progesterone receptors. Both were quantified at 0%. HER-2 was 2+ an immunostain and nonamplified by FISH testing. The patient underwent an MRI of the breast on 09/20/2013. The study revealed that the left breast had no suspicious findings. In the right breast there was a 1.6 cm abnormal enhancing mass in the superior outer aspect of the right breast approximately 10 cm from the nipple. This correlated to the biopsy area. Underwent partial mastectomy with SLN biopsy 10/05/2013. The final pathology revealed an invasive poorly differentiated ductal carcinoma measuring 1.3 cm in size. There was a single focus. DCIS was present measuring 2 mm in maximum dimension. The grade of the cancer was 3. Margins were negative. The closest was 6 mm. Lymphovascular invasion was not identified. One sentinel lymph node was retrieved. It was negative. Received two cycles of TC. Admitted for severe PAGE. Admitted 12/17/2013 due to increase in thigh pain and dyspnea. Markedly elevated CK. No increase in serum Cr. Chemotherapy stopped after cycle #2. Was seen by ornamental plasterer helper at . 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 Completed radiation 03/26/2014. She started developing intermittent shortness of breath with exertion. She also has a cough that is a dry cough. She was taken off her PAM inhibitor but the cough has not changed. She had a PA and lateral chest film done on 10/22/2016 that demonstrated no abnormality. She then underwent a CT scan the chest without IV contrast on 11/06/2016. Two nodules were observed in the pulmonary parenchyma. One was located in the right lower lobe and the second was located in the lingular lobe. Each measured 8 mm and were thought to be consistent with metastatic disease. CT of the abdomen and pelvis on 11/20/2016 as well as repeat CT chest with IV contrast demonstrated a thick walled gallbladder suspicious for cystitis, chronic and redemonstration of the lung nodules. No concern for metastatic disease in the abdomen or pelvis. Brain MRI on 11/23/2016 was normal. PET scan demonstrated multiple foci of increased glucose concentration manifested in the right axilla, significant region generating a standard uptake value of 7.6. The maximal axial diameter the largest individual hypermetabolic soft tissue density on review of the CT of the thorax was approximately 23.1 mm in transverse dimension. An ultrasound of the right axilla and subclavicular region on 12/02/2016 demonstrated that within the right axilla there was a cluster of abnormal appearing hypoechoic nodules. The largest measured 2.3 x 1.50 1.4 cm. In the subclavicular region there was also evidence of several hypoechoic nodules the largest measuring 2.75 x 2.85 1.5 cm. She then underwent a right axillary core needle biopsy on 12/07/2016. The pathology demonstrated a poorly differentiated metastatic carcinoma. The specimen was negative for both ER and KS as well as HER-2. I discussed the case with the pathologist today who told me that histologically/morphologically the specimen was consistent with her previous specimen of breast cancer. The pathologist will issue an addendum quantifying ER and KS 0 as well as HER-2 at 0. She had a stress test and echocardiogram about 3 years ago and had no evidence of coronary artery disease. She had LV concentric hypertrophy with preserved ejection fraction. She underwent port placement along with right axillary lymph node dissection on 12/24/2016. MICROSCOPIC DIAGNOSIS Right axillary lymph nodes, regional lymph adenectomy: One out of seven lymph nodes with metastatic poorly differentiated carcinoma. See comment. COMMENT Immunohistochemistry ([id number]) does not rule out a breast primary. There is focal perinodal extension of tumor. Clinical correlation is suggested. ANTIBODY / CLONE RESULT Block 1 Mammaglobin (31A5) negative GATA3 (L50-823) positive, rare, dim CK8 (83thocV76) positive Ki-67 (30-9) positive, moderate to high ER (6F11) negative 0% KS (1E2) negative 0% CK19 (A53-B/A2.26) positive Cyclin D1/BCL-1 (SP4) positive CEA (11-7/TF-3HB-1) negative SHELLI (E29) positive CK20 (KS20.8) negative Villin (CWWB1) negative RCC (PN-15) negative CA125 (OC125) positive Current therapy: 1) Cisplatin (+/- PARP inhibitor on trial). Presents for ongoing oncologic management. Interim history: [place] and since then she's been experiencing shortness of breath again. She describes it as an air hunger. She denies wheezing and cough. No chest pain but she's noticed more pain in her epigastrium. This is intermittent. No hemoptysis. No shortness of breath is persistent even at rest. PMH, medications and allergies as below personally reviewed by me today. Any changes documented in appropriate section. ROS: Constitutional: Denies episodes of fever and night sweats. Normal appetite. Neuro: Denies DOZIER, vertigo, dizziness and imbalance. HEENT: No recent change in voice, vision or hearing. Resp: See above. CVS: Denies exertional chest pain, PND, orthopnea and LE edema. GI: Denies dysgeusia. Denies symptoms of stomatitis. Denies dysphagia and odynophagia. Denies reflux, n/v, change in bowel habits and abdominal pain. : Denies dysuria or gross hematuria. No symptoms of bladder outlet obstruction. Endo: Denies hot flashes. Denies polyuria and polydipsia. Denies heat and cold intolerance. Musculoskeletal: See above. Derm: Denies rash. Denies jaundice and diffuse pruritis. Heme: Denies unusual bleeding and unexplained bruising. Psych: Normal mood. PHYSICAL EXAM: Vitals: Blood pressure 118/71, pulse 102, temperature 36.4 ?C (97.5 ?F), weight 91.9 kg (202 lb 8 oz). Well-appearing and in no acute distress. EYES: Sclerae are anicteric bilaterally. ENT: Oral mucosa is unremarkable. There is no sign of thrush or mucositis. NECK: Supple. LYMPHATIC: There is no palpable cervical, supraclavicular or inguinal adenopathy. No left axillary adenopathy. No adenopathy appreciated in right axilla. RESPIRATORY: Inspiratory breath sounds are of normal intensity in all norris. No rales, wheezes or rhonchi. CARDIOVASCULAR: Rhythm is regular. Normal intensity S1/S2. There is no gallop or murmur. ABDOMEN: The abdomen is nondistended. No organomegaly. No tenderness. Extremities: No swelling or edema. SKIN: No jaundice or rash. No petechiae. NEUROLOGIC: station attendant II-XII are grossly intact. No focal motor weakness. MUSCULOSKELETAL: No muscle wasting. 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 Comprehensive BRCA 1 and 2 testing (scanned 12/05/2013) no mutation Complicated by myositis during adjuvant chemotherapy. -KPS is 90%. -Biopsy-proven local regional recurrence. 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 -PET scan on 08/29/2017 suggested that the soft tissue mass in the axilla with scar and benign. One hypermetabolic significant lymph node on the right was visualized and noted to be of less SUV than on the baseline study. No other hypermetabolic abnormalities. -Discussed plan that we can consider coming off trial at progression in retreating with single agent cisplatin or consider carbo/gemcitabine. Plan: -Continue study drug for now. -OV 10/14. -CTs week of 10/19. -OV 10/25. (R06.00, R06.89) Dyspnea and respiratory abnormalities Assessment: -She is not tachypnic and does not appear to be short of breath while here for the office visit. -The patient had a comprehensive evaluation last summer for this symptom including CT to rule out PE. Echocardiogram was also performed. She was seen by a pack worker supervisor and was given reassurance that there were no respiratory abnormalities. -It's obvious that she is under a great deal of distress, anxiety and depression over her diagnosis of metastatic disease. We discussed this with her and I encouraged her to consider professional counseling which she has done on 2 occasions in the last couple months. She agreed to get back in the counseling. For the sake of thoroughness I've ordered a repeat echocardiogram to evaluate for potentially evolving pulmonary hypertension or other evidence of cardiomyopathy. Plan: -Resume counseling. -Echocardiogram. Clifford Barakat DO Referring Provider: CLIFFORD BARAKAT [[id number]] Allergies As of Date: 09/13/2017 (No Known Allergies) Date Reviewed: 09/13/2017 Reviewed by: Orlando Lanier (Tiffanie) TIFFANIE Langston - Fully Assessed Reason for Visit: Established Patient [175] Primary Visit Diagnosis:Malignant neoplasm of upper-outer quadrant of right breast in female, estrogen receptor negative (HCC) [C50.411, Z17.1] Other Visit Diagnoses:Malignant neoplasm of right breast in female, estrogen receptor negative, unspecified site of breast (HCC) [C50.911, Z17.1] Dyspnea and respiratory abnormalities [R06.00, R06.89] Examination of participant in clinical trial [Z00.6] Order(s):ECHO [[id number]] Order #: [id number]: 1 FUTURE HEMONC COMMUNICATION ORDER [[id number]] Order #: [id number]: 1 CT ABD/PEL W IVCON [[id number]] Order #: [id number] FUTURE CT CHEST W IVCON [[id number]] Order #: [id number] FUTURE [] iv contrast (will be provided with radiology test)CT Chest ABD/PEL-Inject, intravenously, once for 1 dose.No IV access, insert saline lock prior to the beginning of sedation, infusion, injection of imaging exam. Discontinue saline lock post exam. If Pt. has a central line or IVAD, may access for administration according to line specific nursing protocol. Once exam is complete flush line and de-access according to line specific nursing protocol in the CT contrast administration guidelines link.Disp: 1 EachRfl: 0 [] enteric contrast (will be provided with radiology test)For CT CHESTABD/PEL W IVCON Routine order Administer, As Directed One Time Only, via Oral, Rectal, both Oral and Rectal, Enteric Tube, Stoma or Indwelling Catheter, Enteric Contrast as designated per enteric contrast guidelinesDisp: 1 EachRfl: 0 Follow-up and Disposition History Recorded Prescriptions as of 09/13/2017 Sig: GABAPENTIN 300 MG CAPSULE Take 300 mg by mouth three ti* TIMOLOL 0.5 % EYE DROPS Use 1 Drop in both eyes once * DICYCLOMINE 20 MG TABLET Take 20 mg by mouth every 8 h* METOCLOPRAMIDE 10 MG TABLET Take 1 tablet by mouth every * LORAZEPAM 1 MG TABLET Take 1 tablet by mouth every * LIDOCAINE-PRILOCAINE 2.5 %-2.* Apply 1 application to affect* CITALOPRAM 20 MG TABLET Take 1 tablet by mouth once d* CLONAZEPAM 0.5 MG TABLET 1 tablet twice daily. PRN NITROFURANTOIN MONOHYDRATE AND * Take 100 mg by mouth twice da* EMPAGLIFLOZIN 10 MG TABLET Take 10 mg by mouth once gamaliel* VITAMIN B COMPLEX CAPSULE Take 1 capsule by mouth twice* CREON ORAL Take 6,000 Units by mouth. Wi* VALACYCLOVIR 500 MG TABLET Take 500 mg by mouth as neede* ERGOCALCIFEROL (VITAMIN D2) 5* Take 50,000 Units by mouth on* * INSULIN GLARGINE (U-100) 100 * Take 50 in am and 70 units in* * HUMALOG KWIKPEN (U-100) INSUL* 15 in am, 15 noon, 20 in philip IV CONTRAST (RADIOLOGY PROCED* CT Chest ABD/PEL-Inject, intr* ENTERIC CONTRAST (RADIOLOGY P* For CT CHESTABD/PEL W IVCON R* Medication notes this encounter INSULIN GLARGINE (U-100) 100 UNIT/ML SUBCUTANEOUS SOLUTION >> Orlando Langston LPN, LPN 09/13/2017 11:57 AM >> ORLANDO LANGSTON September 13, 2017 11:57 AM 40units BID Problem List As Of Date 09/13/2017 Noted Resolved THYROID NODULE [E04.1] INVALID FOR* More... Anxiety State, Unspecified [F41.1] 01/22/2009 Depressive Disorder, not Elsewhere Classified [* Priority: Moderate More... DM w/o complication type II, uncontrolled [E11.*INVALID FOR* Priority: Severe More... Other Malaise and Fatigue [R53.81, R53.83] INVALID FOR*01/22/2009 More... HYPERLIPIDEMIA NEC/NOS [E78.5] INVALID FOR* FIBROMYALGIA [GGK6073] INVALID FOR* Priority: Moderate OVERWEIGHT [E66.9] INVALID FOR* OTHER HAMMER TOE [M20.40] INVALID FOR* More... URIN TRACT INFECTION RECURRENT [N39.0] INVALID FOR*01/21/2016 More... GENITAL HERPES NOS [A60.00] INVALID FOR* Tobacco Use Disorder [F17.200] INVALID FOR* Priority: Moderate More... CONGENITAL PES PLANUS [Q66.50] INVALID FOR* Displacement of Lumbar Intervertebral Disc with*INVALID FOR* Priority: Moderate More... More... Routine Gynecological Examination [Z01.419] INVALID FOR* Class: Chronic More... 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*INVALID FOR* Malignant neoplasm metastatic to left lung (HCC*INVALID FOR* Examination of participant in clinical trial [Z*INVALID FOR* Visit Notes: >> Orlando Langston LPN TueSeptember 13, 2017 11:58 AM Status: Signed Est pt, discuss recent lab results Orlando Langston LPN Encounter Status:Closed by CLIFFORD BARAKAT DO on 09/13/17 CBC W/DIFF, AUTOMATED Collected: 09/13/2017 Status: F Source: [place] 6:31 AM [facility] [place] REPOSITORY TYPE CODE TESTS RESULT OUT OF RANGE REFERENCE UNITS LAB L100.1000 4.4-11.0 K/mm3 Normal WBC 6.1 LAB L100.1200 4.2-5.4 M/mm3 Low RBC 3.55 LAB L100.1300 12.0-15.0 g/dl Low HGB 11.4 LAB L100.1400 37-47 % Low HCT 33.1 LAB L100.1500 81-99 fL Normal MCV 93.2 LAB L100.1600 27.0-32.0 pg High MCH 32.1 LAB L100.1700 32-36 g/gl Normal MCHC 34.4 LAB L100.1810 11.6-14.6 % Normal RDW CV 12.4 LAB L100.1820 35.1-43.9 fl Normal RDW SD 40.6 LAB L100.1900 150-450 K/mm3 Normal PLT 305 LAB L100.2000 6.2-12.0 fl Normal MPV 9.4 LAB L100.2100 47-70 % Normal NEUT% 61.6 LAB L100.2200 19-41 % Normal LY% 30.9 LAB L100.2300 0-10 % Normal MONO% 6.1 LAB L100.2400 0-5 % Normal EO% 0.8 LAB L100.2500 0-1 % Normal BASO% 0.3 LAB L100.2550 0.0-0.9 % Normal IM GRAN % 0.300 Result Comment: IG% - Immature Granulocytes (promyelocytes, myelocytes and metamyelocytes) > 1% indicates that a LEFT SHIFT is Present. LAB L100.2620 2.0-7.7 X10 3/uL Normal Absolute Neut 3.7 LAB L100.2720 0.83-4.51 X10 3/ul Normal Absolute Lymph 1.88 Performed By: #### L100.0100 #### [facility] [address] [place], [address] COMPREHENSIVE METABOLIC Collected: 09/13/2017 Status: F Source: [facility] 6:31 AM [facility] [place] REPOSITORY TYPE CODE TESTS RESULT OUT OF RANGE REFERENCE UNITS LAB L501.0100 74-106 mg/dL High GLU 340 Result Comment: Glucose result greater than or equal to 200 mg/dL suggests DIABETES MELLITUS per A.D.A. criteria. Please note revised GLUCOSE reference range effective 2017. LAB L501.1000 7-18 mg/dL High BUN 30 LAB L501.1100 0.55-1.02 mg/dL Normal CREAT,SERUM 0.76 Result Comment: The validity of the calculated GFR AND GFRAA in patients over 70 years has not been determined. Clinical correlation is essential. LAB L501.1110 >60 mL/min Normal EST GFR 86 Result Comment: Non- GFR Calc LAB L501.1115 >60 mL/min Normal EST GFR - AA 104 Result Comment: GFR Calc LAB L501.1300 10-20 RATIO High BUN/CRE 39.3 LAB L501.1500 6.4-8.2 g/dL T Normal PROT 7.4 LAB L501.1800 3.2-5.0 g/dL Normal ALB 3.5 LAB L501.1950 2.2-4.2 g/dL Normal GLOB 3.9 LAB L501.2000 0.9-2.4 RATIO Normal A/G 0.9 LAB L501.2200 8.5-10.1 mg/dL CA Normal 9.1 LAB L501.4100 15-37 U/L Low AST 9 LAB L501.4305 45-117 U/L Normal ALK P 87 LAB L501.4405 13-56 U/L Normal ALT 20 LAB L501.4600 0.20-1.00 mg/dL T Normal BILI 0.20 LAB L501.5300 136-145 mmol/L Low NA 135 LAB L501.5600 3.5-5.1 mmol/L K Normal 3.8 LAB L501.5900 98-107 mmol/L CL Normal 98 LAB L501.6100 21.0-32.0 mmol/L Normal CO2 29.0 LAB L501.6200 5-15 Normal GAP 8 Performed By: #### L500.4050, L501.5200 #### [facility] [address] [place], [address] MAGNESIUM Collected: 09/13/2017 Status: F Source: [place] 6:31 AM [facility] REPOSITORY TYPE CODE TESTS RESULT OUT OF RANGE REFERENCE UNITS LAB L501.5200 1.6-2.6 mg/dL Low MG 1.5 Performed By: #### L500.4050, L501.5200 #### [facility] [address] [place], [address] HOSP Observed: 09/13/2017 Status: COMPLETED Source: [place] 12:00 AM [facility] REPOSITORY Patient Update (DANYEL) PEDRO LUIS WILCOX ([id number]) 1970 F Date Time Provider Department 09/13/17 EMRE MCDONOUGH) DANYEL During your visit today, we recorded the following information about you: Emre Mcdonough RN 10/25/2017 12:44 PM Addendum IRB# [id number]. ?Randomized on: 01/28/2017. ?ARM: Blinded. Reporting Period: 08/23/17 - 09/13/17: ?? Patient is here?for Cycle#11. ?Physical exam, toxicities, labs, and medications reviewed with Clifford Barakat DO. Patient meets protocol requirements for treatment. Patient will continue with Cycle #11?on ABT-888/Placebo monotherapy. ?? ECOG Score: 0- Fully active, able to carry on all pre-disease performance w/o restriction.? ?? Toxicities: CTCAE V. 4 Nausea, Denies Fatigue, Denies Neuropathy in fingers, denies.? And, no change in lower extremities that is chronic for patient. Arthralgia, denies. ? Patient also c/o of not being able to breath and feeling short of breath. Patient in no distress or with any signs of shortness of breath and assessment is negative for a reason for shortness of breath. But patient states she feels this way at this time. See Dr. Barakat note. Unlikely Related. Patient anxious about disease and has some family stressors. Dr. Barakat would like patient to resume counseling. Will order ECHO also to r/o a heart issue. Reassurance given. Also c/o's of epigastric pain, grade 1, it comes and goes and it not directly related to above. Unlikely related. Patient was in to ER since last visit on 08/29/17. Admitted for confusion. Patient states that her blood sugar was low d/t fasting for PET scan procedure. She was asking for something to eat because she has had this happen before. The radiology department had her transferred to the ER. Workup was negative and Patient was later discharged home in stable condition. Patient states she took a nap once home and felt much better the rest of the day. Dr. Barakat agrees that this was due to her diabetes. Blood glucose was normal (151) when tested in ER but oral glucose had already been given. Delirium, grade 1, Unrelated. ?? Labs earlier today drawn at [facility]: CBC Hgb 11.4, grade 1, definitely related Decreased Mg, 1.5, grade 1, Unlikely Related. Patient states the only medication that she tries to take on a regular basis is the study medication and she will try and do better with this one. Glucose, 340, non-fasting, grade 2, Unrelated. Does not meet reporting requirements. Hyponatremia, 135, grade 1, Unrelated. Menopausal Status: Post Contraception: Hysterectomy LMP: na ?? Research Labs: (Time/Type/Sent to): ?None? QOL / Questionnaires: N/A? ? The patient returned study medication diary and 2 bottles of Veliparib vs Placebo with 4 remaining and 1 unopened (64). Patient states that the other1 bottle is empty. Patient is NOT compliant with study medication self administration. Patient missed a dose on 08/29/17 d/t PET Scan appointment and another dose on 08/26/17 but she is not sure why. Patient has taken her dose for this am. ? [place] order-- Dr. Roshni stephenson with patient to continue on study medication. Review of all test, labs reviewed again with patient. The patient was given a new study medication diary for Cycle #11and the current?bottles?of Veliparib vs Placebo with 4 and 64 capsules remaining and 2 new bottles with 64 capsules as dispensed by the pharmacy. Instructed to return the diary and medication bottle with any remaining medication at next study visit. Use of the study medication diary and dosing instructions were reviewed with the patient. ?? Reviewed timeline going forward. Patient to return in 3 weeks with labs prior at [facility] for Cycle #12. Patient agreeable with this plan. She has contact numbers if she needs anything in the interim. Emre Mcdonough RN Allergies As of Date: 09/13/2017 (No Known Allergies) Date Reviewed: 09/13/2017 Reviewed by: Orlando Lanier (Tiffanie) TIFFANIE Langston - Fully Assessed Reason for Visit: Clinical Trial Nurse Note [Other] Cmt: [id number] Prescriptions as of 09/13/2017 Sig: IV CONTRAST (RADIOLOGY PROCED* CT Chest ABD/PEL-Inject, intr* ENTERIC CONTRAST (RADIOLOGY P* For CT CHESTABD/PEL W IVCON R* TIMOLOL 0.5 % EYE DROPS Use 1 Drop in both eyes once * DICYCLOMINE 20 MG TABLET Take 20 mg by mouth every 8 h* X GABAPENTIN 300 MG CAPSULE Take 300 mg by mouth three ti* X METOCLOPRAMIDE 10 MG TABLET Take 1 tablet by mouth every * LORAZEPAM 1 MG TABLET Take 1 tablet by mouth every * LIDOCAINE-PRILOCAINE 2.5 %-2.* Apply 1 application to affect* CITALOPRAM 20 MG TABLET Take 1 tablet by mouth once d* CLONAZEPAM 0.5 MG TABLET 1 tablet twice daily. PRN NITROFURANTOIN MONOHYDRATE AND * Take 100 mg by mouth twice da* EMPAGLIFLOZIN 10 MG TABLET Take 10 mg by mouth once gamaliel* VITAMIN B COMPLEX CAPSULE Take 1 capsule by mouth twice* CREON ORAL Take 6,000 Units by mouth. Wi* VALACYCLOVIR 500 MG TABLET Take 500 mg by mouth as neede* ERGOCALCIFEROL (VITAMIN D2) 5* Take 50,000 Units by mouth on* * INSULIN GLARGINE (U-100) 100 * Take 50 in am and 70 units in* * HUMALOG KWIKPEN (U-100) INSUL* 15 in am, 15 noon, 20 in philip Problem List As Of Date 09/13/2017 Noted Resolved THYROID NODULE [E04.1] INVALID FOR* More... Anxiety State, Unspecified [F41.1] 01/22/2009 Depressive Disorder, not Elsewhere Classified [* Priority: Moderate More... DM w/o complication type II, uncontrolled [E11.*INVALID FOR* Priority: Severe More... Other Malaise and Fatigue [R53.81, R53.83] INVALID FOR*01/22/2009 More... HYPERLIPIDEMIA NEC/NOS [E78.5] INVALID FOR* FIBROMYALGIA [WFZ7147] INVALID FOR* Priority: Moderate OVERWEIGHT [E66.9] INVALID FOR* OTHER HAMMER TOE [M20.40] INVALID FOR* More... URIN TRACT INFECTION RECURRENT [N39.0] INVALID FOR*01/21/2016 More... GENITAL HERPES NOS [A60.00] INVALID FOR* Tobacco Use Disorder [F17.200] INVALID FOR* Priority: Moderate More... CONGENITAL PES PLANUS [Q66.50] INVALID FOR* Displacement of Lumbar Intervertebral Disc with*INVALID FOR* Priority: Moderate More... More... Routine Gynecological Examination [Z01.419] INVALID FOR* Class: Chronic More... 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*INVALID FOR* Malignant neoplasm metastatic to left lung (HCC*INVALID FOR* Examination of participant in clinical trial [Z*INVALID FOR* Visit Notes: >> Emre (Rn) Ceasar Wed September 14, 2017 4:45 PM Status: Addendum IRB# [id number]. ?Randomized on: 01/28/2017. ?ARM: Blinded. Reporting Period: 08/23/17 - 09/13/17: ?? Patient is here?for Cycle#11. ?Physical exam, toxicities, labs, and medications reviewed with Clifford Barakat DO. Patient meets protocol requirements for treatment. Patient will continue with Cycle #11?on ABT-888/Placebo monotherapy. ?? ECOG Score: 0- Fully active, able to carry on all pre-disease performance w/o restriction.? ?? Toxicities: CTCAE V. 4 Nausea, Denies Fatigue, Denies Neuropathy in fingers, denies.? And, no change in lower extremities that is chronic for patient. Arthralgia, denies. ? Patient also c/o of not being able to breath and feeling short of breath. Patient in no distress or with any signs of shortness of breath and assessment is negative for a reason for shortness of breath. But patient states she feels this way at this time. See Dr. Barakat note. Unlikely Related. Patient anxious about disease and has some family stressors. Dr. Barakat would like patient to resume counseling. Will order ECHO also to r/o a heart issue. Reassurance given. Also c/o's of epigastric pain, grade 1, it comes and goes and it not directly related to above. Unlikely related. Patient was in to ER since last visit on 08/29/17. Admitted for confusion. Patient states that her blood sugar was low d/t fasting for PET scan procedure. She was asking for something to eat because she has had this happen before. The radiology department had her transferred to the ER. Workup was negative and Patient was later discharged home in stable condition. Patient states she took a nap once home and felt much better the rest of the day. Dr. Barakat agrees that this was due to her diabetes. Blood glucose was normal (151) when tested in ER but oral glucose had already been given. Delirium, grade 1, Unrelated. ?? Labs earlier today drawn at [facility]: CBC Hgb 11.4, grade 1, definitely related Decreased Mg, 1.5, grade 1, Unlikely Related. Patient states the only medication that she tries to take on a regular basis is the study medication and she will try and do better with this one. Glucose, 340, non-fasting, grade 2, Unrelated. Does not meet reporting requirements. Hyponatremia, 135, grade 1, Unrelated. Menopausal Status: Post Contraception: Hysterectomy LMP: na ?? Research Labs: (Time/Type/Sent to): ?None? QOL / Questionnaires: N/A? ? The patient returned study medication diary and 2 bottles of Veliparib vs Placebo with 4 remaining and 1 unopened (64). Patient states that the other1 bottle is empty. Patient is NOT compliant with study medication self administration. Patient missed a dose on 08/29/17 d/t PET Scan appointment and another dose on 08/26/17 but she is not sure why. Patient has taken her dose for this am. ? [place] order-- Dr. Roshni stephenson with patient to continue on study medication. Review of all test, labs reviewed again with patient. The patient was given a new study medication diary for Cycle #11and the current?bottles?of Veliparib vs Placebo with 4 and 64 capsules remaining and 2 new bottles with 64 capsules as dispensed by the pharmacy. Instructed to return the diary and medication bottle with any remaining medication at next study visit. Use of the study medication diary and dosing instructions were reviewed with the patient. ?? Reviewed timeline going forward. Patient to return in 3 weeks with labs prior at [facility] for Cycle #12. Patient agreeable with this plan. She has contact numbers if she needs anything in the interim. Emre Mcdonough RN Encounter Status:Closed by EMRE MCDONOUGH on 09/20/17 ONCOLOGY HISTORY AND Observed: 09/07/2017 Status: F Source: [place] PHYSICAL 4:48 PM [facility] REPOSITORY [facility] Medical Records Department [address] [place] [address] History and Physical 09/07/17 1529 MR#: [id number] Acct: [id number] Name: PEDRO LUIS WILCOX Rep #: [id number] : 1970 47 From: Garcia Reed MD PCP: Jacinto Person MD Status: DIS RCR Y Location: OMD Subjective Date of Service:: 09/07/17 Chief Complaint: Wants second opinion about breast cancer management. History of Present Illness: Old records reviewed. 47y.o.woman diagnosed with right breast cancer stage IA in August 2013. Needle biopsy on September 13, 2013 showed invasive ductal carcinoma, ER/KS negative, Her2 2+ by IHC, negative by fish. She had partial mastectomy with sentinel node biopsy on October 05, 2013, pathology showed invasive ductal carcinoma, tumor size 1.3 cm, grade 3, 1 sentinel node was negative-Stage IA(pT1c pN0 M0). She received 2 cycles of Taxotere and Cytoxan, was discontinued because of myopathy. Developed lung nodules in October 2016, was found to have axillary mass with Right supraclavicular node on PET/CT scan done on November 29, 2016. She had right axillary lymphadenectomy on December 24, 2016. Pathology showed 1 out of 7 lymph nodes positive with metastatic poorly differentiated carcinoma, ER/KS/Her2 negative. She started therapy on a clinical trial involving Cisplatin with PARP inhibitor or placebo. Cisplatin is now discontinued and is tablets Abt-888 or placebo 100mg 4tabs bid x 21 days. She recently had restaging studies done and wants to know what to do. Power of Grain Farmer: No Living Will: No Health History: Past Medical History Cancer: Breast cancer Past Medical History (Last Updated 09/07/17 @ 14:07 by Deysi Bautista) [place] node (Acute) Past Surgical History (Last Updated 09/07/17 @ 14:07 by Deysi Bautista) History of hysterectomy (Acute) History of lumpectomy of right breast (Acute) Family History (Last Updated 09/07/17 @ 14:09 by Deysi Bautista) Mother Breast cancer Diabetes Aunt Skin cancer Father Heart disease Hypertension Allergies/Adverse Reactions: Allergy/AdvReac Type Severity Reaction Status Date / Time No Known Allergies Allergy Verified 04/24/17 11:37 Home Medications Medication Instructions Recorded Risk Factors Social History Smoking Status Former smoker Tobacco Risk Data: Tobacco Risk Smoking Status Former smoker Type of tobacco: Smokeless tobacco usage: Items/Day: Year started: Years used: Counseled to quit/cut down: Reason for no counseling performed: Reason for no pharmacotherapy: Tobacco use comments: Passive smoke exposure: Substance Risk Drug use: Caffeine use [drinks/day]: 2 Alcohol use: Type of alcohol: Drinks per day: Has patient felt the need to cut down: Has the patient been annoyed by complaints: Has the patient felt guilty about drinking: Has the patient needed an eye 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 the 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: Comments: occasionaly Review of Systems Constitutional:: Denies: Fever, Sweats, Weight loss, Appetite change, Chills Cardiovascular:: Denies: Chest pain, Palpitations, Dyspnea on exertion, Orthopnea, PND, Shortness of breath Respiratory: Denies: Cough, Hemoptysis, Shortness of Breath, Wheezing Gastrointestinal:: Denies: Abdominal pain, Nausea, Vomiting, Diarrhea, Constipation, Hematochezia Genitourinary: Denies: Dysuria, Hematuria, 15, Flank pain Musculoskeletal:: Denies: Back pain, Myalgia, Arthralgia Skin: Denies: Rash, Skin Changes, Wounds Neurological:: Denies: Headache, Dizziness, Visual changes, Tinnitus, Hearing loss Psychiatric: Denies: Anxiety, Depression, Homicidal Ideations, Suicidal Ideations Vital Signs Height 5 ft 8.5 in Weight: 91.626 kg Weight in Pounds 202.0 lbs Pulse Ox 98 - Physical Exam General: Alert, Oriented x3, No apparent distress HEENT: Atraumatic, PERRLA, EOMI, Normocephalic Oropharynx:: Dry mucosa Neck:: Supple, Trachea midline. Negative for: JVD, bilateral Cardiac:: Regular rate, Regular rhythm, Normal S1, Normal S2. Negative for: Murmur Lungs: Clear to auscultation, Excusion symmetrical. Negative for: Rhonchi, Wheezes Abdomen:: Bowel sounds x 4, Soft, Non-tender, Non-distended. Negative for: Hepatosplenomegaly Extremities:: Negative for: Cyanosis, Edema Neurological: Neuro grossly intact Skin:: Negative for: Lesions, Rash, Petechiae, Ecchymosis Psychiatric:: Appropriate affect, Euthymic Lymphatics:: Negative for: Cervical lymphadenopathy, Supraclavicular lymphadenopathy, Axillary lymphadenopathy Breast:: - - not done. Diagnostic Data: 08/29/[address] scan reviewed shows right supraclavicular node SUV 5.9 compared to 7.6 in 11/2016, minimal activity in the Right Axillary node. 08/16/2017 CT chest shows right axillary nodule 3 x 2 cm to centimeter port left sided small lung nodules. CT abd/pelvis shows no metastases. 08/16/2017 Bone scan reviewed shows activity in the distal sternum. Assessment and Plan Metastatic right breast cancer involving right axilla and right supraclavicular node, currently on PARP inhibitor or Placebo. Pt has a partial response with decrease in SUV. No evidence of progressive disease. Discussed management of metastatic breast cancer with pt. Since she is on a clinical trial and disease with a Partial response, she should continue. Plan is to continue therapy on the Clinical trial. RTC as needed. Primary Care Provider: Jacinto Person Referring Provider: Jacinto Person - Problem List (1) Carcinoma of right breast metastatic to axillary lymph node Status: Chronic Code Visit Office Visits / Consults: [id number] OV L5 New 09/07/17 3109 <Electronically signed by Garcia Reed MD> Date Garcia Reed MD Cosigner Signature: Date (if applicable) CC: Jacinto Person MD; Garcia Reed MD Signed 12 LEAD ELECTROCARDIOGRAM Observed: 09/02/2017 Status: F Source: [place] 2:48 PM [facility] REPOSITORY [facility] Cardiovascular Services [address] [place] [id number] 12 Lead EKG 08/29/17 1213 MR#: [id number] Acct: [id number] Name: PEDRO LUIS WILCOX Clay Rep #: [id number] : 1970 47 From: Eric Blue MD Attending Dr: Status: DEP ER Ordering Dr: Johnny Santos MD Date: 08/29/17 Location: ED Sex: F AA Admitted: Test Reason : NEURO Blood Pressure : / mmHG Vent. Rate : 103 BPM Atrial Rate : 103 BPM P-R Int : 164 ms QRS Dur : 088 ms QT Int : 360 ms P-R-T Axes : 060 047 043 degrees QTc Int : 471 ms Sinus tachycardia Otherwise normal ECG Confirmed by ROBERTO VELAZQUEZ, ERIC ([id number]), makeup editor MESSI VIVAR ([id number]) on 09/02/2017 2:48:24 PM Referred By: SHELBY/GRECIA Confirmed By:ERIC BLUE MD 09/02/17 1448 Date Eric Blue MD CC: Johnny Santos MD; Jacinto Person MD Signed EMERGENCY DEPARTMENT Observed: 08/29/2017 Status: F Source: [place] SUMMARY 3:51 PM [facility] REPOSITORY [facility] Medical Records Department [address] [place] [address] Emergency Department Summary 08/29/17 1207 MR#: [id number] Acct: [id number] Name: PEDRO LUIS WILCOX Rep #: [id number] : 1970 47 From: Johnny Santos MD PCP: Jacinto Person MD Status: REG ER - ER Visit Summary Date of Service: 08/29/17 Chief Complaint: Confusion History of Present Illness: The patient is a 47 F with confusion today. She was fasting for a PET scan. She has a history of breast cancer. She was noted to be confused and have slurred speech. They did give her oral glucose and her sugar was 151. Patient continues to be slow to respond and was sent for an evaluation. Physical Examination: Afebrile. Heart rate 102. Otherwise vitals normal. Alert and oriented. She exhibits psychomotor slowing, but otherwise NIH stroke scale is 0. Heart regular. Lungs clear. Abdomen soft. Skin appears normal. Test Results: EKG, labs, chest x-ray, and CT pending. Emergency Department Course and Treatment: Patient does not meet criteria for stroke team. I suspect her symptoms are secondary to hypoglycemia. She has had this before. Will check a CT and basic workup and continue to monitor. Patient's mental status improved greatly. She had no focal findings to suggest a stroke. Her oncologist was concerned that she would need an MRI to rule out metastatic disease. Workup showed an EKG at a rate of 103. No acute infarction. Troponin normal. Hemoglobin 11.8, sodium 135, potassium 3.3 glucose [address] showed a calcification but no acute findings. Chest x- ray was unremarkable. I spoke with the patient again. I said I cannot rule out stroke or metastatic disease. She would need an MRI and possible admission. She declined this. Requesting to go home. Is currently alert and oriented and acting at baseline. I believe she understands the risks. She is free from influence. Alert and oriented. I will notify Dr. Barakat. Treatment Plan: As above Disposition: Discharged Impression: 1. Confusion--resolved This note was generated with [email or web address] software. It may contain incorrect words, spelling, and punctuation that were not noted in review of the chart prior to signing ED Disposition - Plan for ED Patient: Chief Complaint: Neuro S/Sx Referrals: Jacinto Person MD [Primary Care Provider] - What to do if you have Problems For any increased pain, shortness of breath, bleeding, nausea or vomiting, chest pain, or any unexpected problems, contact your Primary Care Provider. Call [employer] [facility] ([phone]) or report to the closest Emergency Room. Call 911 if necessary. 08/29/17 1551 <Electronically signed by Johnny Santos MD> Date Johnny Santos MD Cosigner Signature (If Indicated): Date CC: Jacinto Person MD DISCHARGE INSTRUCTION Observed: 08/29/2017 Status: F Source: [place] 3:51 PM [facility] REPOSITORY [facility] Medical Records Department [address] [place] [address] Discharge Instruction 08/29/17 1526 MR#: [id number] Acct: [id number] Name: PEDRO LUIS WILCOX Clay Rep #: [id number] : 1970 47 From: Johnny Santos MD PCP: Jacinto Person MD Status: REG ER ED Disposition - Plan for ED Patient: Chief Complaint: Neuro S/Sx Instructions: ED Confusion Referrals: Jacinto Person MD [Primary Care Provider] - Clifford Barakat DO [STAFF PHYSICIAN] - What to do if you have Problems For any increased pain, shortness of breath, bleeding, nausea or vomiting, chest pain, or any unexpected problems, contact your Primary Care Provider. Call [facility] ([phone]) or report to the closest Emergency Room. Call 911 if necessary. 08/29/17 1551 <Electronically signed by Johnny Santos MD> Date Johnny Santos MD Cosigner Signature (If Indicated): Date CC: Jacinto Person MD BRAIN/HEAD WITHOUT Observed: 08/29/2017 Status: F Source: [place] CONTRAST 12:03 PM [facility] REPOSITORY [facility] Imaging Services [address] [place] [id number] Brain/Head without Contrast MR#: [id number] Acct: [id number] Name: PEDRO LUIS WILCOX Clay Rep #: [id number] : 1970 F 47 From: Darryl Ford MD PCP: Jacinto Person MD Status: REG ER Study: Brain/Head without Contrast Date of Exam: 08/29/17 Exam# [id number] Ordering Dr: Johnny Santos MD STUDY: CT BRAIN WITHOUT CONTRAST REASON FOR EXAM: Female, 47 years old. Confusion. RADIATION DOSAGE (If Supplied By Facility): CTDIvol = ( 60.81 ) mGy, DLP = ( 998.67 ) mGycm TECHNIQUE: Transaxial CT imaging of the brain was performed without administration of intravenous contrast material. Individualized dose optimization techniques were used for this CT. COMPARISON: Comparison is made with prior MRI of the brain dated November 23, 2016. FINDINGS: Electrodes are seen within the soft tissues overlying both right and left frontal bones. There is hyperostosis frontalis internus. Focal dense calcification of the cerebral falx. Normal size ventricles and extra-axial spaces for the patient's age. Normal white matter tracts of the cerebral hemispheres. Normal basal ganglia and thalami. Normal brainstem. Normal cerebellum. There is no intracranial hemorrhage. There are no findings of an acute ischemic infarction. Normal visualized paranasal sinuses. CT/Brain/Head without Contrast IMPRESSION: Focal dense calcification of the cerebral falx. Electrodes are seen overlying the right and left frontal scalp. Electronically Signed: Darryl Ford MD at 12:59 EDT Tel [phone], Service support , CC: Johnny Santos MD; Jacinto Person MD Family [employer] Consumer Education Teacher: Signed CHEST 1 VIEW Observed: 08/29/2017 Status: F Source: [place] 12:03 PM [facility] REPOSITORY [facility] Imaging Services [address] [place] [address] [id number] Chest 1 View MR#: [id number] Acct: [id number] Name: PEDRO LUIS WILCOX Rep #: [id number] : 1970 F 47 From: Darryl Ford MD PCP: Jacinto Person MD Status: REG ER Study: Chest 1 View Date of Exam: 08/29/17 Exam# [id number] Ordering Dr: Johnny Santos MD STUDY: X-RAY CHEST REASON FOR EXAM: Female, 47 years old. Nausea and vomiting. Confusion. TECHNIQUE: Single AP portable view of the chest. COMPARISON: Comparison is made with prior study dated April 24, 2017. FINDINGS: EKG electrodes are seen. A left-sided portacatheter is present with the tip in the proximal portion of the superior vena cava. The lungs are clear and expanded. There is no demonstrated pleural abnormality. Normal size heart. Normal mediastinum and brandi. Normal visualized pulmonary arteries. Normal visualized aortic arch and descending thoracic aorta. There are degenerative changes of the visualized thoracic spine. Normal visualized ribs, clavicles, and shoulders. There is no demonstrated abnormality of the visualized soft tissue structures of the upper abdomen. RAD/Chest 1 View IMPRESSION: No acute abnormality is seen. Electronically Signed: Darryl Ford MD at 13:23 EDT Tel [phone], Service support , CC: Johnny Santos MD; Jacinto Person MD Family And Consumer Education Teacher: Signed BEDSIDE GLUCOSE Collected: 08/29/2017 Status: F Source: [place] 12:02 PM [facility] REPOSITORY TYPE CODE TESTS RESULT OUT OF REFERENCE UNITS RANGE LAB L501.080 70-110 mg/dL High BEDSIDE GLU 156 Result Comment: MANAGEMENT OF PATIENT CARE PER NURSING PROTOCOL Performed By: #### L501.080 #### [facility] [place] [address] CBC W/DIFF, AUTOMATED Collected: 08/29/2017 Status: F Source: [place] 11:58 AM [facility] REPOSITORY TYPE CODE TESTS RESULT OUT OF RANGE REFERENCE UNITS LAB L100.1000 4.4-11.0 K/mm3 Normal WBC 5.8 LAB L100.1200 4.2-5.4 M/mm3 Low RBC 3.69 LAB L100.1300 12.0-15.0 g/dl Low HGB 11.8 LAB L100.1400 37-47 % Low HCT 34.0 LAB L100.1500 81-99 fL Normal MCV 92.1 LAB L100.1600 27.0-32.0 pg Normal MCH 32.0 LAB L100.1700 32-36 g/gl Normal MCHC 34.7 LAB L100.1810 11.6-14.6 % Normal RDW CV 12.0 LAB L100.1820 35.1-43.9 fl Normal RDW SD 39.1 LAB L100.1900 150-450 K/mm3 Normal PLT 287 LAB L100.2000 6.2-12.0 fl Normal MPV 9.0 LAB L100.2100 47-70 % Normal NEUT% 62.4 LAB L100.2200 19-41 % Normal LY% 28.0 LAB L100.2300 0-10 % Normal MONO% 8.7 LAB L100.2400 0-5 % Normal EO% 0.7 LAB L100.2500 0-1 % Normal BASO% 0.2 LAB L100.2550 0.0-0.9 % Normal IM GRAN % 0.000 Result Comment: IG% - Immature Granulocytes (promyelocytes, myelocytes and metamyelocytes) > 1% indicates that a LEFT SHIFT is Present. LAB L100.2620 2.0-7.7 X10 3/uL Normal Absolute Neut 3.6 LAB L100.2720 0.83-4.51 X10 3/ul Normal Absolute Lymph 1.61 Performed By: #### L100.0100 #### [facility] [address] [place], [address] BASIC METABOLIC Collected: 08/29/2017 Status: F Source: [place] PROFILE (BMP) 11:58 AM [facility] REPOSITORY TYPE CODE TESTS RESULT OUT OF RANGE REFERENCE UNITS LAB L501.0100 74-106 mg/dL High GLU 151 Result Comment: Fasting Glucose result greater than or equal to 126 mg/dL suggests DIABETES MELLITUS per A.D.A. criteria. Please note revised GLUCOSE reference range effective 2017. LAB L501.1000 7-18 mg/dL High BUN 24 LAB L501.1100 0.55-1.02 mg/dL Normal CREAT,SERUM 0.56 Result Comment: The validity of the calculated GFR AND GFRAA in patients over 70 years has not been determined. Clinical correlation is essential. LAB L501.1110 >60 mL/min Normal EST GFR 123 Result Comment: Non- GFR Calc LAB L501.1115 >60 mL/min Normal EST GFR - AA 149 Result Comment: GFR Calc LAB L501.1255 ml/min Normal Estimated CRCL 119.47 LAB L501.1300 10-20 RATIO High BUN/CRE 43.0 LAB L501.2200 8.5-10 mg/dL .1 CA Normal 9.5 LAB L501.5300 136-14 mmol/L Low 5 NA 135 LAB L501.5600 3.5-5. mmol/L Low 1 K 3.3 LAB L501.5900 98-107 mmol/L CL Normal 98 LAB L501.6100 21.0-3 mmol/L 2.0 CO2 Normal 29.0 LAB L501.6200 5-15 GAP Normal 8 Performed By: #### L500.2500, L501.4010 #### [facility] [address] [facility] [place], [address] TROPONIN-I Collected: 08/29/2017 Status: F Source: [place] 11:58 AM [facility] REPOSITORY TYPE CODE TESTS RESULT OUT OF RANGE REFERENCE UNITS LAB L501.4010 <0.045 ng/mL Normal < 0.015 TROPONIN-I Result Comment: TROPONIN-I EXPECTED VALUES <0.045 Negative 0.045 - 0.590 Consistent with Cardiac Damage > OR = 0.600 Critical Value Not every elevated troponin is indicative of RI. These values should be used with clinical judgement in examining the patient's clinical picture for diagnosis. To establish a diagnosis of RI versus myocardial injury, there must be a demonstrated rise and/or fall in the troponin values, in addition to ischemic symptoms, EKG changes, new regional wall motion abnormality, and/or angiographical evidence. PLEASE NOTE: REFERENCE RANGES EDITED 17 Performed By: #### L500.2500, L501.4010 #### [facility] [place], [address] PROTHROMBIN TIME W/INR Collected: 08/29/2017 Status: F Source: [place] 11:58 AM [facility] REPOSITORY TYPE CODE TESTS RESULT OUT OF RANGE REFERENCE UNITS LAB L300.4150 11.7-14.9 SECONDS Normal PROTIME 13.0 LAB L300.4200 Normal INR 1.0 Performed By: #### L300.3900, L300.4310 #### [facility] [address] [facility] [place], [address] PARTIAL THROMBOPLAST Collected: 08/29/2017 Status: F Source: [place] TIME 11:58 AM [facility] REPOSITORY TYPE CODE TESTS RESULT OUT OF RANGE REFERENCE UNITS LAB L300.4310 24.1-36.2 Seconds Normal PTT 28.6 Performed By: #### L300.3900, L300.4310 #### [facility] [address] [place], [address] GLUCOSE Collected: 08/29/2017 Status: F Source: [place] 11:10 AM [facility] REPOSITORY Order Comment: FAST GLUCOSE TYPE CODE TESTS RESULT OUT OF RANGE REFERENCE UNITS LAB L501.0100 74-106 mg/dL High GLU 140 Result Comment: Fasting Glucose result greater than or equal to 126 mg/dL suggests DIABETES MELLITUS per A.D.A. criteria. Please note revised GLUCOSE reference range effective 2017. Performed By: #### L501.0100 #### [facility] [address] [place], [address] PET/CT TUMOR BASE Observed: 08/29/2017 Status: F Source: [place] -THIGH SUBS 5:38 AM [facility] REPOSITORY [facility] Imaging Services [address] [place] [address] PET/CT Tumor Base -Thigh Subs MR#: [id number] Acct: [id number] Name: PEDRO LUIS WILCOX Clay Rep #: [id number] : 1970 F 47 From: Clay Real DO PCP: Jacinto Person MD Status: REG CLI Study: PET/CT Tumor Base -Thigh Subs Date of Exam: 08/29/17 Exam# [id number] Ordering Dr: Clifford Barakat DO ADDENDUM by Clay Real DO on 09/08/17 at 1207 PET/PET/CT Tumor Base -Thigh Subs IMPRESSION: 1. ABNORMAL EXAMINATION INDICATIVE OF MALIGNANT VIABLE NEOPLASM. 2. Increased glucose concentration redemonstrated in the right supraclavicular lymph node distribution fulfills quantitative criteria for viable neoplasm. 3. Revisualized increased fluorine labeled glucose metabolism manifest in the right axilla is does not fulfill quantitative criteria for viable neoplastic transformation. 4. Additional prior defined right axillary and supraclavicular hypermetabolic abnormalities are not visualized on the current examination. 5. Overall, compared to the prior FDG PET study dated 11/29/16, there is continued demonstration of viable neoplasm within the context of the right supraclavicular region manifesting an interval quantitative partial metabolic response, according to EORTC and PERCIST criteria and an interval quantitative complete metabolic response relating to the persistently visualized right axillary and prior defined additional hypermetabolic abnormalities. (Young et al, Journal of Cancer 13:1773, 1999. Nav et al, J Nucl Med 50: 122S, 2009). Electronic Signature Clay Real D.O. Electronically Signed: Clay Real DO at 12:07 EDT Tel , Service support , 09/08/17 1214 Date cc: Jacinto Person MD; Clifford Barakat DO * Signed ADDENDUM by Clay Real DO on 09/08/17 at 1207 ADDENDUM EXAMINATION: FDG PET CT INDICATIONS: A 47-year-old female with history of carcinoma of the breast presenting for restaging examination. COMPARISON EXAMINATION: CT of the abdomen and pelvis reports dated 08/16/17, previous FDG PET study dated 11/29/16; now available for comparison. INDEX LESION SIZE SUV INTERPRETATION PERSISTENT: Right supraclavicular region 20.7 mm largest (frame 259) compared to 23.1 mm, 11/29/16 5.9 (max) compared to 7.6, 11/29/16 Fulfills quantitative criteria for viable neoplasm, interim metabolic improvement ? quantitative partial metabolic response PERSISTENT: Right axilla, decreased overall number 2.0 (max), compared to 5.4, 11/29/16 Quantitative criteria for viable neoplasm are not fulfilled , interim improvement-quantitative complete metabolic response TECHNIQUE: Following the intravenous administration of 15.17 mCi of F-18 deoxyglucose via the left antecubital fossa, multiplanar image acquisitions of the neck, chest, abdomen and pelvis to level of mid thigh, obtained at one hour post radiopharmaceutical administration contemporaneously interpreted with the current CT of the neck, chest, abdomen and pelvis to level of mid thigh, dated 08/29/[address] of the abdomen and pelvis reports dated 08/16/17, previous FDG PET study dated 11/29/16 reveal: SERUM GLUCOSE LEVEL: 160 mg/dl. HEIGHT: 67 inches. WEIGHT: 205 lbs. FINDINGS: 1. Redefined increased glucose metabolism is manifest in the right supraclavicular region generating a current calculated maximum standard uptake value of 5.9 compared to 7.6 defined on the FDG PET study dated 11/29/16. The maximal axial diameter of the corresponding hypermetabolic soft tissue density on review of CT of the thorax dated 08/29/17 is 20.7 mm (AP). 2. Mild enhanced glucose metabolism persists in the right axilla with a decrease in overall number of defined hypermetabolic foci. The current calculated maximum standard uptake value is 2.0 compared to 5.4 recorded on the examination dated 11/29/16. 3. Normal physiologic distribution of the radiopharmaceutical is apparent in the hepatic (3.0/2.1) and splenic parenchyma, both renal units, bladder and visualized intestinal tract. There is uniform distribution of the radiopharmaceutical concentration compared on the cerebellar hemispheres and cerebral cortex. Diffuse intestinal tract activity is noted throughout all four quadrants of the abdominal-pelvic retroperitoneum, mesentery consistent with normal physiologic distribution of the radiopharmaceutical. The previously identified additional right supraclavicular and axillary hypermetabolic foci are not apparent on the current examination. Vnxk-Z-Mqib-MediPort placement is noted. The prior defined morphologic-anatomic changes noted on CT of the neck, chest, abdomen and pelvis manifest on the FDG PET CT study dated 11/29/16 are essentially unchanged on the present examination. 09/08/17 1207 Date cc: Jacinto Person MD; Clifford Barakat DO * Signed EXAMINATION: FDG PET CT INDICATIONS: A 47-year-old female with history of carcinoma of the breast presenting for restaging examination. COMPARISON EXAMINATION: CT of the abdomen and pelvis reports dated 08/16/17, previous FDG PET study report dated 11/29/16. INDEX LESION SIZE SUV INTERPRETATION PERSISTENT: Right supraclavicular region, right axilla 20.7 mm largest (frame 259) compared to 23.1 mm, 11/29/16 5.9 (max) compared to 7.6, 11/29/16 Fulfills quantitative criteria for viable neoplasm, interim metabolic improvement ? quantitative partial metabolic response TECHNIQUE: Following the intravenous administration of 15.17 mCi of F-18 deoxyglucose via the left antecubital fossa, multiplanar image acquisitions of the neck, chest, abdomen and pelvis to level of mid thigh, obtained at one hour post radiopharmaceutical administration contemporaneously interpreted with the current CT of the neck, chest, abdomen and pelvis to level of mid thigh, dated 08/29/[address] of the abdomen and pelvis reports dated 08/16/17, previous FDG PET study report dated 11/29/16 reveal: SERUM GLUCOSE LEVEL: 160 mg/dl. HEIGHT: 67 inches. WEIGHT: 205 lbs. FINDINGS: 1. Presumably redefined increased glucose metabolism is manifest in the right axilla and right supraclavicular region generating a current calculated maximum standard uptake value of 5.9 compared to 7.6 defined on the FDG PET study dated 11/29/16. The maximal axial diameter of the corresponding hypermetabolic soft tissue density on review of CT of the thorax dated 08/29/17 is 20.7 mm (AP). 2. Normal physiologic distribution of the radiopharmaceutical is apparent in the hepatic (3.0/2.1) and splenic parenchyma, both renal units, bladder and visualized intestinal tract. There is uniform distribution of the radiopharmaceutical concentration compared on the cerebellar hemispheres and cerebral cortex. Diffuse intestinal tract activity is noted throughout all four quadrants of the abdominal-pelvic retroperitoneum, mesentery consistent with normal physiologic distribution of the radiopharmaceutical. The previously identified additional right supraclavicular and axillary hypermetabolic foci are not apparent on the current examination. Uyoj-X-Ggml-MediPort placement is noted. The prior defined morphologic-anatomic changes noted on CT of the neck, chest, abdomen and pelvis manifest on the FDG PET CT study dated 11/29/16 are essentially unchanged on the present examination. PET/PET/CT Tumor Base -Thigh Subs IMPRESSION: 1. ABNORMAL EXAMINATION INDICATIVE OF MALIGNANT VIABLE NEOPLASM. 2. Increased glucose concentration redemonstrated in the right axilla, right supraclavicular lymph node distribution fulfills quantitative criteria for viable neoplasm. 3. Additional prior defined right axillary and supraclavicular hypermetabolic abnormalities are not defined on the current examination. 4. Overall, compared to the prior FDG PET study report dated 11/29/16, there is continued demonstration of viable neoplasm within the context of the right axilla and right supraclavicular regions manifesting an interval quantitative partial metabolic response, according to EORTC and PERCIST criteria and interval quantitative complete metabolic response relating to the prior defined additional hypermetabolic. (Young et al, Journal of Cancer 13:1773, 1999. Nav et al, J Nucl Med 50: 122S, 2009). Electronic Signature Clay Real D.O. Electronically Signed: Clay Real DO at 21:35 EDT Tel , Service support , CC: Jacinto Person MD; Clifford Barakat DO Family And Consumer Education Teacher: Signed PROGRESS Observed: 08/23/2017 Status: COMPLETED Source: [place] 9:04 AM [facility] REPOSITORY HNO ID: [id number] Author: Clifford Barakat Service: (none) Author Type: Physician Type: Progress Notes Filed: 08/23/2017 12:51 PM Note Text: Diagnosis: 1) Breast cancer. 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 Her mother has a h/o breast cancer, so patient had been undergoing annual mammogram. The patient underwent a screening mammogram on 08/30/2013. A 1.6 cm nodular density was appreciated in the tail of the right breast. She underwent targeted ultrasound the same day. That study revealed a 9 mm hypoechoic solid nodule at the 10:00 position of the breast measuring 6 cm from the nipple. Stereotactic core needle biopsy on 09/13/2013. The tissue revealed invasive poorly differentiated ductal carcinoma. The specimen was negative for both estrogen and progesterone receptors. Both were quantified at 0%. HER-2 was 2+ an immunostain and nonamplified by FISH testing. The patient underwent an MRI of the breast on 09/20/2013. The study revealed that the left breast had no suspicious findings. In the right breast there was a 1.6 cm abnormal enhancing mass in the superior outer aspect of the right breast approximately 10 cm from the nipple. This correlated to the biopsy area. Underwent partial mastectomy with SLN biopsy 10/05/2013. The final pathology revealed an invasive poorly differentiated ductal carcinoma measuring 1.3 cm in size. There was a single focus. DCIS was present measuring 2 mm in maximum dimension. The grade of the cancer was 3. Margins were negative. The closest was 6 mm. Lymphovascular invasion was not identified. One sentinel lymph node was retrieved. It was negative. Received two cycles of TC. Admitted for severe PAGE. Admitted 12/17/2013 due to increase in thigh pain and dyspnea. Markedly elevated CK. No increase in serum Cr. Chemotherapy stopped after cycle #2. Was seen by ornamental plasterer helper at . 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 Completed radiation 03/26/2014. She started developing intermittent shortness of breath with exertion. She also has a cough that is a dry cough. She was taken off her PAM inhibitor but the cough has not changed. She had a PA and lateral chest film done on 10/22/2016 that demonstrated no abnormality. She then underwent a CT scan the chest without IV contrast on 11/06/2016. Two nodules were observed in the pulmonary parenchyma. One was located in the right lower lobe and the second was located in the lingular lobe. Each measured 8 mm and were thought to be consistent with metastatic disease. CT of the abdomen and pelvis on 11/20/2016 as well as repeat CT chest with IV contrast demonstrated a thick walled gallbladder suspicious for cystitis, chronic and redemonstration of the lung nodules. No concern for metastatic disease in the abdomen or pelvis. Brain MRI on 11/23/2016 was normal. PET scan demonstrated multiple foci of increased glucose concentration manifested in the right axilla, significant region generating a standard uptake value of 7.6. The maximal axial diameter the largest individual hypermetabolic soft tissue density on review of the CT of the thorax was approximately 23.1 mm in transverse dimension. An ultrasound of the right axilla and subclavicular region on 12/02/2016 demonstrated that within the right axilla there was a cluster of abnormal appearing hypoechoic nodules. The largest measured 2.3 x 1.50 1.4 cm. In the subclavicular region there was also evidence of several hypoechoic nodules the largest measuring 2.75 x 2.85 1.5 cm. She then underwent a right axillary core needle biopsy on 12/07/2016. The pathology demonstrated a poorly differentiated metastatic carcinoma. The specimen was negative for both ER and KS as well as HER- 2. I discussed the case with the pathologist today who told me that histologically/morphologically the specimen was consistent with her previous specimen of breast cancer. The pathologist will issue an addendum quantifying ER and KS 0 as well as HER-2 at 0. She had a stress test and echocardiogram about 3 years ago and had no evidence of coronary artery disease. She had LV concentric hypertrophy with preserved ejection fraction. She underwent port placement along with right axillary lymph node dissection on 12/24/2016. MICROSCOPIC DIAGNOSIS Right axillary lymph nodes, regional lymph adenectomy: One out of seven lymph nodes with metastatic poorly differentiated carcinoma. See comment. COMMENT Immunohistochemistry ([id number]) does not rule out a breast primary. There is focal perinodal extension of tumor. Clinical correlation is suggested. ANTIBODY / CLONE RESULT Block 1 Mammaglobin (31A5) negative GATA3 (L50-823) positive, rare, dim CK8 (48neigJ65) positive Ki-67 (30-9) positive, moderate to high ER (6F11) negative 0% KS (1E2) negative 0% CK19 (A53-B/A2.26) positive Cyclin D1/BCL-1 (SP4) positive CEA (11-7/TF-3HB-1) negative SHELLI (E29) positive CK20 (KS20.8) negative Villin (CWWB1) negative RCC (PN-15) negative CA125 (OC125) positive Current therapy: 1) Cisplatin (+/- PARP inhibitor on trial). Presents for ongoing oncologic management. Interim history: She's been tolerating study medication well. No subjective or symptomatic side effect. She has stable neuropathy of the feet and distal lower extremities. This was a pre-existing condition secondary to diabetes prior to starting chemotherapy for metastatic disease. She says she is not having any nausea. Appetite is normal. Bowels are working regularly. She does have some generalized arthritic joint pain but this is been stable also. 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 She's not had any cough, sputum production or wheezing. No chest pain/pressure or tightness. No shortness of breath at rest or with walking/moderate exertion. PMH, medications and allergies as below personally reviewed by me today. Any changes documented in appropriate section. ROS: Constitutional: Denies episodes of fever and night sweats. Normal appetite. Neuro: Denies DOZIER, vertigo, dizziness and imbalance. HEENT: No recent change in voice, vision or hearing. Resp: See above. CVS: Denies exertional chest pain, PND, orthopnea and LE edema. GI: Denies dysgeusia. Denies symptoms of stomatitis. Denies dysphagia and odynophagia. Denies reflux, n/v, change in bowel habits and abdominal pain. : Denies dysuria or gross hematuria. No symptoms of bladder outlet obstruction. Endo: Denies hot flashes. Denies polyuria and polydipsia. Denies heat and cold intolerance. Musculoskeletal: See above. Derm: Denies rash. Denies jaundice and diffuse pruritis. Heme: Denies unusual bleeding and unexplained bruising. Psych: Normal mood. PHYSICAL EXAM: Vitals: Blood pressure 127/73, pulse 104, temperature 36.5 ?C (97.7 ?F), temperature source Temporal Artery, weight 95.3 kg (210 lb). Well-appearing and in no acute distress. EYES: Sclerae are anicteric bilaterally. ENT: Oral mucosa is unremarkable. There is no sign of thrush or mucositis. NECK: Supple. LYMPHATIC: There is no palpable cervical, supraclavicular or inguinal adenopathy. No left axillary adenopathy. No adenopathy appreciated in right axilla. RESPIRATORY: Inspiratory breath sounds are of normal intensity in all norris. No rales, wheezes or rhonchi. CARDIOVASCULAR: Rhythm is regular. Normal intensity S1/S2. There is no gallop or murmur. ABDOMEN: The abdomen is nondistended. No organomegaly. No tenderness. Extremities: No swelling or edema. SKIN: No jaundice or rash. No petechiae. NEUROLOGIC: station attendant II-XII are grossly intact. No focal motor weakness. MUSCULOSKELETAL: No muscle wasting. 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 Comprehensive BRCA 1 and 2 testing (scanned 12/05/2013) no mutation Complicated by myositis during adjuvant chemotherapy. -KPS is 90%. -Biopsy-proven local regional recurrence. 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 -I personally reviewed CT images and again with patient and independently verified the radiologist's findings. The radiologist who read the most recent chest CT scan commented on possible soft tissue mass in the axilla. In retrospect this appears to be postsurgical change. The area when visualized in March had lower attenuation in the Center suggestive of some fluid. I believe these are all postsurgical changes in the axilla and they appear stable when compared to the CT scan done 2 months ago. The target lesions in the lung include a stable 4 mm nodule in the lingula and a previous nodule in the right middle lobe which is no longer visualized. The lingular nodule stable measuring 4 mm. -Bone scan indicates questionable area and distal sternum. This area would be poorly evaluated plain film radiography. Because of this and the axillary changes noted above, PET scan will be obtained to help further clarify. For now, clinically the patient has stable disease and I recommended continuing on study drug. -Discussed plan that we can consider coming off trial at progression in retreating with single agent cisplatin or consider carbo/gemcitabine. Plan: -Continue study drug for now. -PET next Tuesday at [facility]. Clifford Barakat DO CNOVSP Observed: 08/23/2017 Status: COMPLETED Source: [place] 8:50 AM [facility] REPOSITORY Visit (SP) Office ([place]) PEDRO LUIS WILCOX ([id number]) 1970 F Date Time Provider Department 08/23/17 8:50 AM CLIFFORD BARAKAT During your visit today, we recorded the following information about you: Temperature Pulse Blood pressure Weight 97.7 degrees 104/minute 127/73 95.3 kg Clifford Barakat 08/23/2017 12:51 PM Signed Diagnosis: 1) Breast cancer. 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 Her mother has a h/o breast cancer, so patient had been undergoing annual mammogram. The patient underwent a screening mammogram on 08/30/2013. A 1.6 cm nodular density was appreciated in the tail of the right breast. She underwent targeted ultrasound the same day. That study revealed a 9 mm hypoechoic solid nodule at the 10:00 position of the breast measuring 6 cm from the nipple. Stereotactic core needle biopsy on 09/13/2013. The tissue revealed invasive poorly differentiated ductal carcinoma. The specimen was negative for both estrogen and progesterone receptors. Both were quantified at 0%. HER-2 was 2+ an immunostain and nonamplified by FISH testing. The patient underwent an MRI of the breast on 09/20/2013. The study revealed that the left breast had no suspicious findings. In the right breast there was a 1.6 cm abnormal enhancing mass in the superior outer aspect of the right breast approximately 10 cm from the nipple. This correlated to the biopsy area. Underwent partial mastectomy with SLN biopsy 10/05/2013. The final pathology revealed an invasive poorly differentiated ductal carcinoma measuring 1.3 cm in size. There was a single focus. DCIS was present measuring 2 mm in maximum dimension. The grade of the cancer was 3. Margins were negative. The closest was 6 mm. Lymphovascular invasion was not identified. One sentinel lymph node was retrieved. It was negative. Received two cycles of TC. Admitted for severe PAGE. Admitted 12/17/2013 due to increase in thigh pain and dyspnea. Markedly elevated CK. No increase in serum Cr. Chemotherapy stopped after cycle #2. Was seen by ornamental plasterer helper at . 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 Completed radiation 03/26/2014. She started developing intermittent shortness of breath with exertion. She also has a cough that is a dry cough. She was taken off her PAM inhibitor but the cough has not changed. She had a PA and lateral chest film done on 10/22/2016 that demonstrated no abnormality. She then underwent a CT scan the chest without IV contrast on 11/06/2016. Two nodules were observed in the pulmonary parenchyma. One was located in the right lower lobe and the second was located in the lingular lobe. Each measured 8 mm and were thought to be consistent with metastatic disease. CT of the abdomen and pelvis on 11/20/2016 as well as repeat CT chest with IV contrast demonstrated a thick walled gallbladder suspicious for cystitis, chronic and redemonstration of the lung nodules. No concern for metastatic disease in the abdomen or pelvis. Brain MRI on 11/23/2016 was normal. PET scan demonstrated multiple foci of increased glucose concentration manifested in the right axilla, significant region generating a standard uptake value of 7.6. The maximal axial diameter the largest individual hypermetabolic soft tissue density on review of the CT of the thorax was approximately 23.1 mm in transverse dimension. An ultrasound of the right axilla and subclavicular region on 12/02/2016 demonstrated that within the right axilla there was a cluster of abnormal appearing hypoechoic nodules. The largest measured 2.3 x 1.50 1.4 cm. In the subclavicular region there was also evidence of several hypoechoic nodules the largest measuring 2.75 x 2.85 1.5 cm. She then underwent a right axillary core needle biopsy on 12/07/2016. The pathology demonstrated a poorly differentiated metastatic carcinoma. The specimen was negative for both ER and KS as well as HER-2. I discussed the case with the pathologist today who told me that histologically/morphologically the specimen was consistent with her previous specimen of breast cancer. The pathologist will issue an addendum quantifying ER and KS 0 as well as HER-2 at 0. She had a stress test and echocardiogram about 3 years ago and had no evidence of coronary artery disease. She had LV concentric hypertrophy with preserved ejection fraction. She underwent port placement along with right axillary lymph node dissection on 12/24/2016. MICROSCOPIC DIAGNOSIS Right axillary lymph nodes, regional lymph adenectomy: One out of seven lymph nodes with metastatic poorly differentiated carcinoma. See comment. COMMENT Immunohistochemistry ([id number]) does not rule out a breast primary. There is focal perinodal extension of tumor. Clinical correlation is suggested. ANTIBODY / CLONE RESULT Block 1 Mammaglobin (31A5) negative GATA3 (L50-823) positive, rare, dim CK8 (83migoQ00) positive Ki-67 (30-9) positive, moderate to high ER (6F11) negative 0% KS (1E2) negative 0% CK19 (A53-B/A2.26) positive Cyclin D1/BCL-1 (SP4) positive CEA (11-7/TF-3HB-1) negative SHELLI (E29) positive CK20 (KS20.8) negative Villin (CWWB1) negative RCC (PN-15) negative CA125 (OC125) positive Current therapy: 1) Cisplatin (+/- PARP inhibitor on trial). Presents for ongoing oncologic management. Interim history: She's been tolerating study medication well. No subjective or symptomatic side effect. She has stable neuropathy of the feet and distal lower extremities. This was a pre-existing condition secondary to diabetes prior to starting chemotherapy for metastatic disease. She says she is not having any nausea. Appetite is normal. Bowels are working regularly. She does have some generalized arthritic joint pain but this is been stable also. 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 She's not had any cough, sputum production or wheezing. No chest pain/pressure or tightness. No shortness of breath at rest or with walking/moderate exertion. PMH, medications and allergies as below personally reviewed by me today. Any changes documented in appropriate section. ROS: Constitutional: Denies episodes of fever and night sweats. Normal appetite. Neuro: Denies DOZIER, vertigo, dizziness and imbalance. HEENT: No recent change in voice, vision or hearing. Resp: See above. CVS: Denies exertional chest pain, PND, orthopnea and LE edema. GI: Denies dysgeusia. Denies symptoms of stomatitis. Denies dysphagia and odynophagia. Denies reflux, n/v, change in bowel habits and abdominal pain. : Denies dysuria or gross hematuria. No symptoms of bladder outlet obstruction. Endo: Denies hot flashes. Denies polyuria and polydipsia. Denies heat and cold intolerance. Musculoskeletal: See above. Derm: Denies rash. Denies jaundice and diffuse pruritis. Heme: Denies unusual bleeding and unexplained bruising. Psych: Normal mood. PHYSICAL EXAM: Vitals: Blood pressure 127/73, pulse 104, temperature 36.5 ?C (97.7 ?F), temperature source Temporal Artery, weight 95.3 kg (210 lb). Well-appearing and in no acute distress. EYES: Sclerae are anicteric bilaterally. ENT: Oral mucosa is unremarkable. There is no sign of thrush or mucositis. NECK: Supple. LYMPHATIC: There is no palpable cervical, supraclavicular or inguinal adenopathy. No left axillary adenopathy. No adenopathy appreciated in right axilla. RESPIRATORY: Inspiratory breath sounds are of normal intensity in all norris. No rales, wheezes or rhonchi. CARDIOVASCULAR: Rhythm is regular. Normal intensity S1/S2. There is no gallop or murmur. ABDOMEN: The abdomen is nondistended. No organomegaly. No tenderness. Extremities: No swelling or edema. SKIN: No jaundice or rash. No petechiae. NEUROLOGIC: station attendant II-XII are grossly intact. No focal motor weakness. MUSCULOSKELETAL: No muscle wasting. 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 Comprehensive BRCA 1 and 2 testing (scanned 12/05/2013) no mutation Complicated by myositis during adjuvant chemotherapy. -KPS is 90%. -Biopsy-proven local regional recurrence. 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 -I personally reviewed CT images and again with patient and independently verified the radiologist's findings. The radiologist who read the most recent chest CT scan commented on possible soft tissue mass in the axilla. In retrospect this appears to be postsurgical change. The area when visualized in March had lower attenuation in the Center suggestive of some fluid. I believe these are all postsurgical changes in the axilla and they appear stable when compared to the CT scan done 2 months ago. The target lesions in the lung include a stable 4 mm nodule in the lingula and a previous nodule in the right middle lobe which is no longer visualized. The lingular nodule stable measuring 4 mm. -Bone scan indicates questionable area and distal sternum. This area would be poorly evaluated plain film radiography. Because of this and the axillary changes noted above, PET scan will be obtained to help further clarify. For now, clinically the patient has stable disease and I recommended continuing on study drug. -Discussed plan that we can consider coming off trial at progression in retreating with single agent cisplatin or consider carbo/gemcitabine. Plan: -Continue study drug for now. -PET next Tuesday at [facility]. Clifford Barakat DO Referring Provider: CLIFFORD BARAKAT [[id number]] Allergies As of Date: 08/23/2017 (No Known Allergies) Date Reviewed: 08/23/2017 Reviewed by: Veronica Harris Ma - Fully Assessed Reason for Visit: Established Patient [175] Primary Visit Diagnosis:Malignant neoplasm of upper-outer quadrant of right breast in female, estrogen receptor negative (HCC) [C50.411, Z17.1] Order(s):[employer] COMMUNICATION ORDER [[id number]] Order #: [id number]: 1 [] INV ABT-888 OR PLACEBO (INV S1416/17-128) 400 mg INVESTIGATIONALDisp: Rfl: Follow-up and Disposition History Recorded Prescriptions as of 08/23/2017 Sig: GABAPENTIN 300 MG CAPSULE Take 300 mg by mouth three ti* TIMOLOL 0.5 % EYE DROPS Use 1 Drop in both eyes once * DICYCLOMINE 20 MG TABLET Take 20 mg by mouth every 8 h* METOCLOPRAMIDE 10 MG TABLET Take 1 tablet by mouth every * LORAZEPAM 1 MG TABLET Take 1 tablet by mouth every * LIDOCAINE-PRILOCAINE 2.5 %-2.* Apply 1 application to affect* CITALOPRAM 20 MG TABLET Take 1 tablet by mouth once d* CLONAZEPAM 0.5 MG TABLET 1 tablet twice daily. PRN NITROFURANTOIN MONOHYDRATE AND * Take 100 mg by mouth twice da* EMPAGLIFLOZIN 10 MG TABLET Take 10 mg by mouth once gamaliel* VITAMIN B COMPLEX CAPSULE Take 1 capsule by mouth twice* CREON ORAL Take 6,000 Units by mouth. Wi* VALACYCLOVIR 500 MG TABLET Take 500 mg by mouth as neede* ERGOCALCIFEROL (VITAMIN D2) 5* Take 50,000 Units by mouth on* * INSULIN GLARGINE (U-100) 100 * Take 50 in am and 70 units in* * HUMALOG KWIKPEN (U-100) INSUL* 15 in am, 15 noon, 20 in philip Problem List As Of Date 08/23/2017 Noted Resolved THYROID NODULE [E04.1] INVALID FOR* More... Anxiety State, Unspecified [F41.1] 01/22/2009 Depressive Disorder, not Elsewhere Classified [* Priority: Moderate More... DM w/o complication type II, uncontrolled [E11.*INVALID FOR* Priority: Severe More... Other Malaise and Fatigue [R53.81, R53.83] INVALID FOR*01/22/2009 More... HYPERLIPIDEMIA NEC/NOS [E78.5] INVALID FOR* FIBROMYALGIA [[id number]] INVALID FOR* Priority: Moderate OVERWEIGHT [E66.9] INVALID FOR* OTHER HAMMER TOE [M20.40] INVALID FOR* More... URIN TRACT INFECTION RECURRENT [N39.0] INVALID FOR*01/21/2016 More... GENITAL HERPES NOS [A60.00] INVALID FOR* Tobacco Use Disorder [F17.200] INVALID FOR* Priority: Moderate More... CONGENITAL PES PLANUS [Q66.50] INVALID FOR* Displacement of Lumbar Intervertebral Disc with*INVALID FOR* Priority: Moderate More... More... Routine Gynecological Examination [Z01.419] INVALID FOR* Class: Chronic More... 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*INVALID FOR* Malignant neoplasm metastatic to left lung (HCC*INVALID FOR* Examination of participant in clinical trial [Z*INVALID FOR* Encounter Status:Closed by CLIFFORD BARAKAT DO on 08/23/17 CBC W/DIFF, AUTOMATED Collected: 08/23/2017 Status: F Source: [place] 7:30 AM [facility] REPOSITORY Order Comment: MEDOUT/PORT DRAW TYPE CODE TESTS RESULT OUT OF RANGE REFERENCE UNITS LAB L100.1000 4.4-11.0 K/mm3 Normal WBC 5.4 LAB L100.1200 4.2-5.4 M/mm3 Low RBC 3.53 LAB L100.1300 12.0-15.0 g/dl Low HGB 11.1 LAB L100.1400 37-47 % Low HCT 32.9 LAB L100.1500 81-99 fL Normal MCV 93.2 LAB L100.1600 27.0-32.0 pg Normal MCH 31.4 LAB L100.1700 32-36 g/gl Normal MCHC 33.7 LAB L100.1810 11.6-14.6 % Normal RDW CV 12.8 LAB L100.1820 35.1-43.9 fl Normal RDW SD 43.7 LAB L100.1900 150-450 K/mm3 Normal PLT 272 LAB L100.2000 6.2-12.0 fl Normal MPV 8.7 LAB L100.2100 47-70 % Normal NEUT% 56.4 LAB L100.2200 19-41 % Normal LY% 37.4 LAB L100.2300 0-10 % Normal MONO% 4.5 LAB L100.2400 0-5 % Normal EO% 1.1 LAB L100.2500 0-1 % Normal BASO% 0.4 LAB L100.2550 0.0-0.9 % Normal IM GRAN % 0.200 Result Comment: IG% - Immature Granulocytes (promyelocytes, myelocytes and metamyelocytes) > 1% indicates that a LEFT SHIFT is Present. LAB L100.2620 2.0-7.7 X10 3/uL Normal Absolute Neut 3.0 LAB L100.2720 0.83-4.51 X10 3/ul Normal Absolute Lymph 2.00 Performed By: #### L100.0100 #### [facility] [place], [address] COMPREHENSIVE METABOLIC Collected: 08/23/2017 Status: F Source: [place] [facility] 7:30 AM [facility] REPOSITORY Order Comment: MEDOUT/PORT DRAW TYPE CODE TESTS RESULT OUT OF RANGE REFERENCE UNITS LAB L501.0100 74-106 mg/dL High GLU 155 Result Comment: Fasting Glucose result greater than or equal to 126 mg/dL suggests DIABETES MELLITUS per A.D.A. criteria. Please note revised GLUCOSE reference range effective 2017. LAB L501.1000 7-18 mg/dL High BUN 26 LAB L501.1100 0.55-1.02 mg/dL Normal CREAT,SERUM 0.71 Result Comment: The validity of the calculated GFR AND GFRAA in patients over 70 years has not been determined. Clinical correlation is essential. LAB L501.1110 >60 mL/min Normal EST GFR 93 Result Comment: Non- GFR Calc LAB L501.1115 >60 mL/min Normal EST GFR - AA 113 Result Comment: GFR Calc LAB L501.1300 10-20 RATIO High BUN/CRE 36.5 LAB L501.1500 6.4-8.2 g/dL T Normal PROT 7.3 LAB L501.1800 3.2-5.0 g/dL Normal ALB 3.4 LAB L501.1950 2.2-4.2 g/dL Normal GLOB 3.9 LAB L501.2000 0.9-2.4 RATIO Normal A/G 0.9 LAB L501.2200 8.5-10.1 mg/dL CA Normal 8.7 LAB L501.4100 15-37 U/L Low AST 12 LAB L501.4305 45-117 U/L Normal ALK P 75 LAB L501.4405 13-56 U/L Normal ALT 21 LAB L501.4600 0.20-1.00 mg/dL T Normal BILI 0.20 LAB L501.5300 136-145 mmol/L NA Normal 139 LAB L501.5600 3.5-5.1 mmol/L K Normal 4.0 LAB L501.5900 98-107 mmol/L CL Normal 103 LAB L501.6100 21.0-32.0 mmol/L Normal CO2 29.0 LAB L501.6200 5-15 Normal GAP 7 Performed By: #### L500.4050, L501.5200 #### [facility] [address] [place], [address] MAGNESIUM Collected: 08/23/2017 Status: F Source: [place] 7:30 AM [facility] [place] REPOSITORY Order Comment: MEDOUT/PORT DRAW TYPE CODE TESTS RESULT OUT OF RANGE REFERENCE UNITS LAB L501.5200 1.6-2.6 mg/dL Low MG 1.5 Performed By: #### L500.4050, L501.5200 #### [facility] [address] [place], [address] HOSP Observed: 08/23/2017 Status: COMPLETED Source: [place] 12:00 AM [facility] REPOSITORY Patient Update ([place]) PEDRO LUIS WILCOX ([id number]) 1970 F Date Time Provider Department 08/23/17 EMRE MCDONOUGH) DANYEL During your visit today, we recorded the following information about you: Emre Mcdonough RN 08/24/2017 12:57 PM Signed IRB# [id number]. ?Randomized on: 01/28/2017. ?ARM: Blinded. Reporting Period: 08/02/17 - 08/23/17: ?? Patient is here?for Cycle #10. ?Physical exam, toxicities, labs, and medications reviewed with Clifford Barakat DO. Patient meets protocol requirements for treatment. Patient will continue with Cycle #10?on ABT-888/Placebo monotherapy. ?? ECOG Score: 0- Fully active, able to carry on all pre-disease performance w/o restriction.? ?? Toxicities: CTCAE V. 4 ?? Nausea, Denies Fatigue, Denies Neuropathy in fingers, denies.? And, no change in lower extremities that is chronic for patient. Arthralgia, denies. ? Denies other C/O's. States she still feels good, just a tired after a long day of work that is relieved by rest. Patient has gone back to 12 hour shifts and tolerating ok. ?? Labs earlier today drawn at [facility]: CBC Hgb 11.1, grade 1, definitely related Decreased Mg, 1.5, grade 1, Unlikely Related. Patient states that she has not taken her Mg this past week as she was distracted helping take care of her Dad. She did remember to take her study medication. She will make sure that she starts taking again. Glucose, 155, non-fasting, grade 1, Unrelated. Menopausal Status: Post Contraception: Hysterectomy LMP: na ?? Research Labs: (Time/Type/Sent to): ?None? QOL / Questionnaires: N/A? The patient returned study medication diary and 1 bottles of Veliparib vs Placebo with 36 remaining. Patient states that the other 3 bottles are empty. Patient is compliant with study medication self administration. Patient has taken her dose for this am. Dr. Barakat reviewed scans with patient. Patient has stable disease. See his note from today as Dr. Barakat would like patient to have a PET scan. ? [place] order-- The patient was given a new study medication diary and the current?bottles?of Veliparib vs Placebo with 36 capsules remaining and 3 new bottle with 64 capsules as dispensed by the pharmacy. Instructed to return the diary and medication bottle with any remaining medication at next study visit. Use of the study medication diary and dosing instructions were reviewed with the patient. ?? Reviewed timeline going forward. Patient to return in 3 weeks with labs prior at [facility] for Cycle #11. Patient agreeable with this plan. She has contact numbers if she needs anything in the interim. ? Emre Mcdonough RN Allergies As of Date: 08/23/2017 (No Known Allergies) Date Reviewed: 08/23/2017 Reviewed by: Veronica Harris - Fully Assessed Reason for Visit: Clinical Trial Nurse Note [Other] Cmt: S1416 Prescriptions as of 08/23/2017 Sig: GABAPENTIN 300 MG CAPSULE Take 300 mg by mouth three ti* TIMOLOL 0.5 % EYE DROPS Use 1 Drop in both eyes once * DICYCLOMINE 20 MG TABLET Take 20 mg by mouth every 8 h* METOCLOPRAMIDE 10 MG TABLET Take 1 tablet by mouth every * LORAZEPAM 1 MG TABLET Take 1 tablet by mouth every * LIDOCAINE-PRILOCAINE 2.5 %-2.* Apply 1 application to affect* CITALOPRAM 20 MG TABLET Take 1 tablet by mouth once d* CLONAZEPAM 0.5 MG TABLET 1 tablet twice daily. PRN NITROFURANTOIN MONOHYDRATE AND * Take 100 mg by mouth twice da* EMPAGLIFLOZIN 10 MG TABLET Take 10 mg by mouth once gamaliel* VITAMIN B COMPLEX CAPSULE Take 1 capsule by mouth twice* CREON ORAL Take 6,000 Units by mouth. Wi* VALACYCLOVIR 500 MG TABLET Take 500 mg by mouth as neede* ERGOCALCIFEROL (VITAMIN D2) 5* Take 50,000 Units by mouth on* * INSULIN GLARGINE (U-100) 100 * Take 50 in am and 70 units in* * HUMALOG KWIKPEN (U-100) INSUL* 15 in am, 15 noon, 20 in philip Problem List As Of Date 08/23/2017 Noted Resolved THYROID NODULE [E04.1] INVALID FOR* More... Anxiety State, Unspecified [F41.1] 01/22/2009 Depressive Disorder, not Elsewhere Classified [* Priority: Moderate More... DM w/o complication type II, uncontrolled [E11.*INVALID FOR* Priority: Severe More... Other Malaise and Fatigue [R53.81, R53.83] INVALID FOR*01/22/2009 More... HYPERLIPIDEMIA NEC/NOS [E78.5] INVALID FOR* FIBROMYALGIA [[id number]] INVALID FOR* Priority: Moderate OVERWEIGHT [E66.9] INVALID FOR* OTHER HAMMER TOE [M20.40] INVALID FOR* More... URIN TRACT INFECTION RECURRENT [N39.0] INVALID FOR*01/21/2016 More... GENITAL HERPES NOS [A60.00] INVALID FOR* Tobacco Use Disorder [F17.200] INVALID FOR* Priority: Moderate More... CONGENITAL PES PLANUS [Q66.50] INVALID FOR* Displacement of Lumbar Intervertebral Disc with*INVALID FOR* Priority: Moderate More... More... Routine Gynecological Examination [Z01.419] INVALID FOR* Class: Chronic More... 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*INVALID FOR* Malignant neoplasm metastatic to left lung (HCC*INVALID FOR* Examination of participant in clinical trial [Z*INVALID FOR* Visit Notes: >> Emre (Brittney) Ceasar TueAugust 24, 2017 12:33 PM Status: Signed IRB# [id number]. ?Randomized on: 01/28/2017. ?ARM: Blinded. Reporting Period: 08/02/17 - 08/23/17: ?? Patient is here?for Cycle #10. ?Physical exam, toxicities, labs, and medications reviewed with Clifford Barakat DO. Patient meets protocol requirements for treatment. Patient will continue with Cycle #10?on ABT-888/Placebo monotherapy. ?? ECOG Score: 0- Fully active, able to carry on all pre-disease performance w/o restriction.? ?? Toxicities: CTCAE V. 4 ?? Nausea, Denies Fatigue, Denies Neuropathy in fingers, denies.? And, no change in lower extremities that is chronic for patient. Arthralgia, denies. ? Denies other C/O's. States she still feels good, just a tired after a long day of work that is relieved by rest. Patient has gone back to 12 hour shifts and tolerating ok. ?? Labs earlier today drawn at [facility]: CBC Hgb 11.1, grade 1, definitely related Decreased Mg, 1.5, grade 1, Unlikely Related. Patient states that she has not taken her Mg this past week as she was distracted helping take care of her Dad. She did remember to take her study medication. She will make sure that she starts taking again. Glucose, 155, non-fasting, grade 1, Unrelated. Menopausal Status: Post Contraception: Hysterectomy LMP: na ?? Research Labs: (Time/Type/Sent to): ?None? QOL / Questionnaires: N/A? The patient returned study medication diary and 1 bottles of Veliparib vs Placebo with 36 remaining. Patient states that the other 3 bottles are empty. Patient is compliant with study medication self administration. Patient has taken her dose for this am. Dr. Barakat reviewed scans with patient. Patient has stable disease. See his note from today as Dr. Barakat would like patient to have a PET scan. ? [place] order-- The patient was given a new study medication diary and the current?bottles?of Veliparib vs Placebo with 36 capsules remaining and 3 new bottle with 64 capsules as dispensed by the pharmacy. Instructed to return the diary and medication bottle with any remaining medication at next study visit. Use of the study medication diary and dosing instructions were reviewed with the patient. ?? Reviewed timeline going forward. Patient to return in 3 weeks with labs prior at [facility] for Cycle #11. Patient agreeable with this plan. She has contact numbers if she needs anything in the interim. ? Emre Mcdonough RN Encounter Status:Closed by EMRE MCDONOUGH on 08/30/17 ABDOMEN/PELVIS WITH Observed: 08/16/2017 Status: F Source: [place] CONTRAST 12:59 PM [facility] [place] REPOSITORY [facility] Imaging Services [address] [place] [id number] Abdomen/Pelvis WITH Contrast MR#: [id number] Acct: [id number] Name: PEDRO LUIS WILCOX Rep #: [id number] : 1970 F 47 From: Sintia Balderas MD PCP: Jacinto Person MD Status: REG CLI Study: Abdomen/Pelvis WITH Contrast Date of Exam: 08/16/17 Exam# [id number] Ordering Dr: Clifford Barakat DO STUDY: CT ABDOMEN AND PELVIS WITH CONTRAST REASON FOR EXAM: Female, 47 years old. Ligament neoplasm breast with lung metastases RADIATION DOSAGE (If Supplied By Facility): CTDIvol = ( 17.91 ) mGy, DLP = ( 1721.20 ) mGycm TECHNIQUE: Transaxial images were obtained from the dome of the diaphragm to the symphysis pubis without oral contrast. 100mL ml of Isovue 300 contrast was administered. Sagittal and coronal images were reconstructed. Individualized dose optimization techniques were used for this CT. COMPARISON: CT abdomen and pelvis June 20, 2017 FINDINGS: There is minimal residual linear thickening within the right middle lobe when compared to the prior study. The visualized portions of the heart are within normal limits. There is partially visualized asymmetric thickening of the record of the left breast. The liver is homogeneous without evidence of focal mass or perihepatic fluid collection. Normal gallbladder and extrahepatic biliary system. Normal spleen. Normal pancreas. Normal bilateral adrenal glands. Normal right kidney. Normal left kidney. There is a small hiatal hernia. There is a contrasted silhouette appearance of the stomach and the nonobstructed small bowel. There is a moderate amount of stool in the colon from the cecum to the rectum. The appendix is visualized and appears normal. The aorta is partially calcified. Normal inferior vena cava. Normal retroperitoneum. The bladder is distended the wall is thickened up to 9.0 mm. Compared to prior study this is fairly similar. There is absence of the uterus consistent with a prior hysterectomy. There is a small umbilical hernia containing fat. There are diffuse degenerative changes of the visualized lumbar spine. There is degenerative change of bilateral hip joints with moderate narrowing and acetabular spurring. There is mild degenerative change of the symphysis pubis. There is a trace focus of sclerosis in the right side of the SI joint crossing the joint space which likely represents degenerative change. There is no definitive evidence of lytic or sclerotic lesion. There is multilevel disc space narrowing and endplate sclerosis spondylosis. At the level of L2-L3, L3-L4 and L4-L5 as well as L5-S1 there is broad disc bulge with moderate neural foramina narrowing. At the level of L3-L4 there is moderate to severe central stenosis. CT/Abdomen/Pelvis WITH Contrast IMPRESSION: No visualized evidence of metastatic disease to the liver spleen or adrenal glands. Degenerative change of the lumbar spine most significant at the level of L3-L4. Constipation. Wall thickening of the bladder suspicious for cystitis. Status post hysterectomy. Visualized residual scarring in the right middle lobe Visible right breast wall thickening. Advanced degenerative change of both hip joints. Electronically Signed: Sintia Balderas MD at 15:09 EDT Tel , Service support , CC: Jacinto Person MD; Clifford Barakat DO [employer] Consumer Education Teacher: Signed CHEST WITH CONTRAST Observed: 08/16/2017 Status: F Source: [place] 12:56 PM [facility] [place] REPOSITORY [facility] Imaging Services [address] [place] [address] Chest WITH Contrast MR#: [id number] Acct: [id number] Name: PEDRO LUIS WILCOX Rep #: [id number] : 1970 F 47 From: Sintia Balderas MD PCP: Jacinto Person MD Status: REG CLI Study: Chest WITH Contrast Date of Exam: 08/16/17 Exam# [id number] Ordering Dr: Clifford Barakat DO STUDY: CT CHEST WITH CONTRAST REASON FOR EXAM: Female, 47 years old. 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 Multiplanar coronal and sagittal images were reformatted. Individualized dose optimization techniques were used for this CT. COMPARISON: June [address] scan chest, April 15, 2017. FINDINGS: There is right side partially visualized breast skin thickening and increased density right greater than left. There is a strandy and homogeneous masslike density within the right axilla that measures 3.6 x 2.4 cm. Allowing for differences in technique this is slightly larger than the prior study June 20, 2017 and image are 2.6 x 1.9 cm but improved since April 15, 2017. The small left axillary nodes appear stable. There is a left side Port-A-Cath with the tip in the superior vena cava. There is trace interstitial thickening within the right middle lobe stable since prior study. There is no visualized focal suspicious nodule or mass. There is no demonstrated pleural abnormality. There is mild cardiac enlargement. There is minimal density in the prevascular space suggesting possible residual thymus similar to the prior study. Normal hilar regions. Normal enhanced pulmonary arteries. Normal aorta arch and descending thoracic aorta. There are multi-level degenerative changes of the thoracic spine. There is hepatic steatosis. The upper aspect of the liver visualized on the CT scan of the chest appears fairly homogeneous. There is a minimal hiatal hernia. The bones are somewhat osteopenic. Approximately at the anterior aspect of right rib 6 there is a small focus of sclerotic density image #84 measuring approximately 8.6 mm.. The thyroid appears mildly prominent. CT/Chest WITH Contrast IMPRESSION: Slightly greater size of the right axillary mass when compared to more recent study but smaller than the mass April 15, 2017. Port-A-Cath Subtle sclerotic density within approximately right ribs 6 stable since prior study April 15, 2017. This may represent a benign focus of sclerosis or bone cyst. Recommend continued follow-up bone scans. Trace remaining scarring or atelectasis within the right middle lobe. Degenerative change of the thoracolumbar spine. Persistent findings consistent with radiation of the right breast with skin thickening and calcification. Electronically Signed: Sintia Balderas MD at 14:51 EDT Tel , Service support , CC: Jacinto Person MD; Clifford Barakat DO Family And Consumer Education Teacher: Signed BONE SCAN WHOLE Observed: 08/16/2017 Status: F Source: [place] BODY 7:59 AM [facility] [place] REPOSITORY [facility] Imaging Services [address] [place] [id number] Bone Scan Whole Body MR#: [id number] Acct: [id number] Name: PEDRO LUIS WILCOX Rep #: [id number] : 1970 F 47 From: Clay Real DO PCP: Jacinto Person MD Status: REG CLI Study: Bone Scan Whole Body Date of Exam: 08/16/17 Exam# [id number] Ordering Dr: Clifford Barakat DO CLINICAL: 47-year-old female with history of carcinoma of the breast. WHOLE BODY 99m Tc MDP RADIONUCLIDE BONE SCINTIGRAPHY COMPARISON: Previous whole body bone scintigraphy study dated 06/09/2017 FINDINGS: Following the intravenous administration of 25.2 mCi of 99m Tc MDP, whole body bone images reveal: 1. Increased radiopharmaceutical concentration is defined in the distal sternum. 2. Enhanced uptake is currently defined in the acromioclavicular and sternoclavicular compartments of both shoulders, lateral humeral compartment of the right shoulder, seventh-ninth, 11th-12th thoracic vertebra, fourth lumbar vertebra posteriorly on the left, bilateral elbow articulations, the right wrist, right-left hip articulations involving the inferior posterior acetabulum, both knees, the right ankle. 3. The remaining skeletal structures are scintigraphically unremarkable with normal-appearing renal images and urinary bladder activity identified. NM/Bone Scan Whole Body IMPRESSION: 1. The increase in radiopharmaceutical concentration identified in the distal sternum may be further investigated with plain film radiography in the setting of known breast carcinoma. 2. Degenerative arthritis appears expressed in the bilateral shoulders, thoracic and lumbar spine, elbows bilaterally, right wrist, bilateral hips, right-left knees and right ankle. 3. Overall compared to the previous whole body bone scintigraphy study dated 06/15/2017, the increase in radiopharmaceutical concentration defined in the distal sternum may be further investigated with plain film radiography in the setting of known breast carcinoma. Electronically Signed: Clay Real DO at 23:47 EDT Tel , Service support , CC: Jacinto Person MD; Clifford Barakat DO Family And Consumer Education Teacher: Signed PROGRESS Observed: 08/02/2017 Status: COMPLETED Source: [place] 12:23 PM [facility] REPOSITORY HNO ID: [id number] Author: Clifford Barakat Service: (none) Author Type: Physician Type: Progress Notes Filed: 08/02/2017 1:21 PM Note Text: Diagnosis: 1) Breast cancer. 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 Her mother has a h/o breast cancer, so patient had been undergoing annual mammogram. The patient underwent a screening mammogram on 08/30/2013. A 1.6 cm nodular density was appreciated in the tail of the right breast. She underwent targeted ultrasound the same day. That study revealed a 9 mm hypoechoic solid nodule at the 10:00 position of the breast measuring 6 cm from the nipple. Stereotactic core needle biopsy on 09/13/2013. The tissue revealed invasive poorly differentiated ductal carcinoma. The specimen was negative for both estrogen and progesterone receptors. Both were quantified at 0%. HER-2 was 2+ an immunostain and nonamplified by FISH testing. The patient underwent an MRI of the breast on 09/20/2013. The study revealed that the left breast had no suspicious findings. In the right breast there was a 1.6 cm abnormal enhancing mass in the superior outer aspect of the right breast approximately 10 cm from the nipple. This correlated to the biopsy area. Underwent partial mastectomy with SLN biopsy 10/05/2013. The final pathology revealed an invasive poorly differentiated ductal carcinoma measuring 1.3 cm in size. There was a single focus. DCIS was present measuring 2 mm in maximum dimension. The grade of the cancer was 3. Margins were negative. The closest was 6 mm. Lymphovascular invasion was not identified. One sentinel lymph node was retrieved. It was negative. Received two cycles of TC. Admitted for severe PAGE. Admitted 12/17/2013 due to increase in thigh pain and dyspnea. Markedly elevated CK. No increase in serum Cr. Chemotherapy stopped after cycle #2. Was seen by ornamental plasterer helper at . 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 Completed radiation 03/26/2014. She started developing intermittent shortness of breath with exertion. She also has a cough that is a dry cough. She was taken off her PAM inhibitor but the cough has not changed. She had a PA and lateral chest film done on 10/22/2016 that demonstrated no abnormality. She then underwent a CT scan the chest without IV contrast on 11/06/2016. Two nodules were observed in the pulmonary parenchyma. One was located in the right lower lobe and the second was located in the lingular lobe. Each measured 8 mm and were thought to be consistent with metastatic disease. CT of the abdomen and pelvis on 11/20/2016 as well as repeat CT chest with IV contrast demonstrated a thick walled gallbladder suspicious for cystitis, chronic and redemonstration of the lung nodules. No concern for metastatic disease in the abdomen or pelvis. Brain MRI on 11/23/2016 was normal. PET scan demonstrated multiple foci of increased glucose concentration manifested in the right axilla, significant region generating a standard uptake value of 7.6. The maximal axial diameter the largest individual hypermetabolic soft tissue density on review of the CT of the thorax was approximately 23.1 mm in transverse dimension. An ultrasound of the right axilla and subclavicular region on 12/02/2016 demonstrated that within the right axilla there was a cluster of abnormal appearing hypoechoic nodules. The largest measured 2.3 x 1.50 1.4 cm. In the subclavicular region there was also evidence of several hypoechoic nodules the largest measuring 2.75 x 2.85 1.5 cm. She then underwent a right axillary core needle biopsy on 12/07/2016. The pathology demonstrated a poorly differentiated metastatic carcinoma. The specimen was negative for both ER and KS as well as HER- 2. I discussed the case with the pathologist today who told me that histologically/morphologically the specimen was consistent with her previous specimen of breast cancer. The pathologist will issue an addendum quantifying ER and KS 0 as well as HER-2 at 0. She had a stress test and echocardiogram about 3 years ago and had no evidence of coronary artery disease. She had LV concentric hypertrophy with preserved ejection fraction. She underwent port placement along with right axillary lymph node dissection on 12/24/2016. MICROSCOPIC DIAGNOSIS Right axillary lymph nodes, regional lymph adenectomy: One out of seven lymph nodes with metastatic poorly differentiated carcinoma. See comment. COMMENT Immunohistochemistry ([id number]) does not rule out a breast primary. There is focal perinodal extension of tumor. Clinical correlation is suggested. ANTIBODY / CLONE RESULT Block 1 Mammaglobin (31A5) negative GATA3 (L50-823) positive, rare, dim CK8 ([id number]) positive Ki-67 (30-9) positive, moderate to high ER (6F11) negative 0% KS (1E2) negative 0% CK19 (A53-B/A2.26) positive Cyclin D1/BCL-1 (SP4) positive CEA (11-7/TF-3HB-1) negative SHELLI (E29) positive CK20 (KS20.8) negative Villin (CWWB1) negative RCC (PN-15) negative CA125 (OC125) positive Current therapy: 1) Cisplatin (+/- PARP inhibitor on trial). Presents for ongoing oncologic management. Interim history: She has no complaints today. Lower extremity neuropathy is stable. No respiratory symptoms including cough, sputum production, wheezing or shortness of breath at rest. She is back to working 7 hour days. No nausea. PMH, medications and allergies as below personally reviewed by me today. Any changes documented in appropriate section. ROS: Constitutional: Denies episodes of fever and night sweats. Normal appetite. Neuro: Denies DOZIER, vertigo, dizziness and imbalance. HEENT: No recent change in voice, vision or hearing. Resp: See above. CVS: Denies exertional chest pain, PND, orthopnea and LE edema. GI: Denies dysgeusia. Denies symptoms of stomatitis. Denies dysphagia and odynophagia. Denies reflux, n/v, change in bowel habits and abdominal pain. : Denies dysuria or gross hematuria. No symptoms of bladder outlet obstruction. Endo: Denies hot flashes. Denies polyuria and polydipsia. Denies heat and cold intolerance. Musculoskeletal: Denies bone, back, joint and muscular pain. Derm: Denies rash. Denies jaundice and diffuse pruritis. Heme: Denies unusual bleeding and unexplained bruising. Psych: Normal mood. PHYSICAL EXAM: Vitals: Blood pressure 117/58, pulse 112, temperature 36.8 ?C (98.2 ?F), weight 92.5 kg (204 lb). Well-appearing and in no acute distress. EYES: Sclerae are anicteric bilaterally. ENT: Oral mucosa is unremarkable. There is no sign of thrush or mucositis. NECK: Supple. LYMPHATIC: There is no palpable cervical, supraclavicular or inguinal adenopathy. No left axillary adenopathy. No adenopathy appreciated in right axilla. RESPIRATORY: Inspiratory breath sounds are of normal intensity in all norris. No rales, wheezes or rhonchi. CARDIOVASCULAR: Rhythm is regular. Normal intensity S1/S2. There is no gallop or murmur. ABDOMEN: The abdomen is nondistended. No organomegaly. No tenderness. Extremities: No swelling or edema. SKIN: No jaundice or rash. No petechiae. NEUROLOGIC: station attendant II-XII are grossly intact. No focal motor weakness. MUSCULOSKELETAL: No muscle wasting. No tenderness over the greater trochanters bilaterally. 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 Comprehensive BRCA 1 and 2 testing (scanned 12/05/2013) no mutation Complicated by myositis during adjuvant chemotherapy. -KPS is 90%. -Biopsy-proven local regional recurrence. 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 -Discussed plan that we can consider coming off trial at progression in retreating with single agent cisplatin or consider carbo/gemcitabine. Plan: -CTs first week in September. -Continue study drug for now. Clifford Barakat DO CNOVSP Observed: 08/02/2017 Status: COMPLETED Source: [place] 11:50 AM [facility] REPOSITORY Visit (SP) Office (DANYEL) PEDRO LUIS WILCOX ([id number]) 1970 F Date Time Provider Department 08/02/17 11:50 AM CLIFFORD BARAKAT During your visit today, we recorded the following information about you: Temperature Pulse Blood pressure Weight 98.2 degrees 112/minute 117/58 92.5 kg Orlando Langston Lpn, LPN 08/02/2017 12:11 PM Signed Est pt, discuss recent lab results. , study pt. TIFFANIE Mann Paul A 08/02/2017 1:21 PM Signed Diagnosis: 1) Breast cancer. 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 Her mother has a h/o breast cancer, so patient had been undergoing annual mammogram. The patient underwent a screening mammogram on 08/30/2013. A 1.6 cm nodular density was appreciated in the tail of the right breast. She underwent targeted ultrasound the same day. That study revealed a 9 mm hypoechoic solid nodule at the 10:00 position of the breast measuring 6 cm from the nipple. Stereotactic core needle biopsy on 09/13/2013. The tissue revealed invasive poorly differentiated ductal carcinoma. The specimen was negative for both estrogen and progesterone receptors. Both were quantified at 0%. HER-2 was 2+ an immunostain and nonamplified by FISH testing. The patient underwent an MRI of the breast on 09/20/2013. The study revealed that the left breast had no suspicious findings. In the right breast there was a 1.6 cm abnormal enhancing mass in the superior outer aspect of the right breast approximately 10 cm from the nipple. This correlated to the biopsy area. Underwent partial mastectomy with SLN biopsy 10/05/2013. The final pathology revealed an invasive poorly differentiated ductal carcinoma measuring 1.3 cm in size. There was a single focus. DCIS was present measuring 2 mm in maximum dimension. The grade of the cancer was 3. Margins were negative. The closest was 6 mm. Lymphovascular invasion was not identified. One sentinel lymph node was retrieved. It was negative. Received two cycles of TC. Admitted for severe PAGE. Admitted 12/17/2013 due to increase in thigh pain and dyspnea. Markedly elevated CK. No increase in serum Cr. Chemotherapy stopped after cycle #2. Was seen by ornamental plasterer helper at . 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 Completed radiation 03/26/2014. She started developing intermittent shortness of breath with exertion. She also has a cough that is a dry cough. She was taken off her PAM inhibitor but the cough has not changed. She had a PA and lateral chest film done on 10/22/2016 that demonstrated no abnormality. She then underwent a CT scan the chest without IV contrast on 11/06/2016. Two nodules were observed in the pulmonary parenchyma. One was located in the right lower lobe and the second was located in the lingular lobe. Each measured 8 mm and were thought to be consistent with metastatic disease. CT of the abdomen and pelvis on 11/20/2016 as well as repeat CT chest with IV contrast demonstrated a thick walled gallbladder suspicious for cystitis, chronic and redemonstration of the lung nodules. No concern for metastatic disease in the abdomen or pelvis. Brain MRI on 11/23/2016 was normal. PET scan demonstrated multiple foci of increased glucose concentration manifested in the right axilla, significant region generating a standard uptake value of 7.6. The maximal axial diameter the largest individual hypermetabolic soft tissue density on review of the CT of the thorax was approximately 23.1 mm in transverse dimension. An ultrasound of the right axilla and subclavicular region on 12/02/2016 demonstrated that within the right axilla there was a cluster of abnormal appearing hypoechoic nodules. The largest measured 2.3 x 1.50 1.4 cm. In the subclavicular region there was also evidence of several hypoechoic nodules the largest measuring 2.75 x 2.85 1.5 cm. She then underwent a right axillary core needle biopsy on 12/07/2016. The pathology demonstrated a poorly differentiated metastatic carcinoma. The specimen was negative for both ER and KS as well as HER-2. I discussed the case with the pathologist today who told me that histologically/morphologically the specimen was consistent with her previous specimen of breast cancer. The pathologist will issue an addendum quantifying ER and KS 0 as well as HER-2 at 0. She had a stress test and echocardiogram about 3 years ago and had no evidence of coronary artery disease. She had LV concentric hypertrophy with preserved ejection fraction. She underwent port placement along with right axillary lymph node dissection on 12/24/2016. MICROSCOPIC DIAGNOSIS Right axillary lymph nodes, regional lymph adenectomy: One out of seven lymph nodes with metastatic poorly differentiated carcinoma. See comment. COMMENT Immunohistochemistry ([id number]) does not rule out a breast primary. There is focal perinodal extension of tumor. Clinical correlation is suggested. ANTIBODY / CLONE RESULT Block 1 Mammaglobin (31A5) negative GATA3 (L50-823) positive, rare, dim CK8 (79bxkmL65) positive Ki-67 (30-9) positive, moderate to high ER (6F11) negative 0% KS (1E2) negative 0% CK19 (A53-B/A2.26) positive Cyclin D1/BCL-1 (SP4) positive CEA (11-7/TF-3HB-1) negative SHELLI (E29) positive CK20 (KS20.8) negative Villin (CWWB1) negative RCC (PN-15) negative CA125 (OC125) positive Current therapy: 1) Cisplatin (+/- PARP inhibitor on trial). Presents for ongoing oncologic management. Interim history: She has no complaints today. Lower extremity neuropathy is stable. No respiratory symptoms including cough, sputum production, wheezing or shortness of breath at rest. She is back to working 7 hour days. No nausea. PMH, medications and allergies as below personally reviewed by me today. Any changes documented in appropriate section. ROS: Constitutional: Denies episodes of fever and night sweats. Normal appetite. Neuro: Denies DOZIER, vertigo, dizziness and imbalance. HEENT: No recent change in voice, vision or hearing. Resp: See above. CVS: Denies exertional chest pain, PND, orthopnea and LE edema. GI: Denies dysgeusia. Denies symptoms of stomatitis. Denies dysphagia and odynophagia. Denies reflux, n/v, change in bowel habits and abdominal pain. : Denies dysuria or gross hematuria. No symptoms of bladder outlet obstruction. Endo: Denies hot flashes. Denies polyuria and polydipsia. Denies heat and cold intolerance. Musculoskeletal: Denies bone, back, joint and muscular pain. Derm: Denies rash. Denies jaundice and diffuse pruritis. Heme: Denies unusual bleeding and unexplained bruising. Psych: Normal mood. PHYSICAL EXAM: Vitals: Blood pressure 117/58, pulse 112, temperature 36.8 ?C (98.2 ?F), weight 92.5 kg (204 lb). Well-appearing and in no acute distress. EYES: Sclerae are anicteric bilaterally. ENT: Oral mucosa is unremarkable. There is no sign of thrush or mucositis. NECK: Supple. LYMPHATIC: There is no palpable cervical, supraclavicular or inguinal adenopathy. No left axillary adenopathy. No adenopathy appreciated in right axilla. RESPIRATORY: Inspiratory breath sounds are of normal intensity in all norris. No rales, wheezes or rhonchi. CARDIOVASCULAR: Rhythm is regular. Normal intensity S1/S2. There is no gallop or murmur. ABDOMEN: The abdomen is nondistended. No organomegaly. No tenderness. Extremities: No swelling or edema. SKIN: No jaundice or rash. No petechiae. NEUROLOGIC: station attendant II-XII are grossly intact. No focal motor weakness. MUSCULOSKELETAL: No muscle wasting. No tenderness over the greater trochanters bilaterally. 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 Comprehensive BRCA 1 and 2 testing (scanned 12/05/2013) no mutation Complicated by myositis during adjuvant chemotherapy. -KPS is 90%. -Biopsy-proven local regional recurrence. 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 -Discussed plan that we can consider coming off trial at progression in retreating with single agent cisplatin or consider carbo/gemcitabine. Plan: -CTs first week in September. -Continue study drug for now. Clifford Barakat DO Referring Provider: CLIFFORD BARAKAT [[id number]] Allergies As of Date: 08/02/2017 (No Known Allergies) Date Reviewed: 08/02/2017 Reviewed by: Orlando Langston (Tiffanie), TIFFANIE - Fully Assessed Reason for Visit: Established Patient [175] Primary Visit Diagnosis:Malignant neoplasm of upper-outer quadrant of right breast in female, estrogen receptor negative (HCC) [C50.411, Z17.1] Other Visit Diagnosis:Malignant neoplasm metastatic to left lung (HCC) [C78.02] Order(s):CT ABD/PEL W IVCON [[id number]] Order #: [id number] FUTURE CT CHEST W IVCON [2400009] Order #: [id number] FUTURE [] iv contrast (radiology procedure)CT Chest ABD/PEL-Inject, intravenously, once for 1 dose.No IV access, insert saline lock prior to the beginning of sedation, infusion, injection of imaging exam. Discontinue saline lock post exam. If Pt. has a central line or IVAD, may access for administration according to line specific nursing protocol. Once exam is complete flush line and de- access according to line specific nursing protocol in the CT contrast administration guidelines link.Disp: 1 EachRfl: 0 [] enteric contrast (radiology procedure)For CT CHESTABD/PEL W IVCON Routine order Administer, As Directed One Time Only, via Oral, Rectal, both Oral and Rectal, Enteric Tube, Stoma or Indwelling Catheter, Enteric Contrast as designated per enteric contrast guidelinesDisp: 1 EachRfl: 0 NM BONE WHOLE BODY [[id number]] Order #: [id number] FUTURE PARKING FOR HANDICAPPED [[id number]] Order #: [id number] [facility] COMMUNICATION ORDER [[id number]] Order #: [id number]: 1 Follow-up and Disposition History Recorded Prescriptions as of 08/02/2017 Sig: GABAPENTIN 300 MG CAPSULE Take 300 mg by mouth three ti* TIMOLOL 0.5 % EYE DROPS Use 1 Drop in both eyes once * DICYCLOMINE 20 MG TABLET Take 20 mg by mouth every 8 h* METOCLOPRAMIDE 10 MG TABLET Take 1 tablet by mouth every * LORAZEPAM 1 MG TABLET Take 1 tablet by mouth every * LIDOCAINE-PRILOCAINE 2.5 %-2.* Apply 1 application to affect* CITALOPRAM 20 MG TABLET Take 1 tablet by mouth once d* CLONAZEPAM 0.5 MG TABLET 1 tablet twice daily. PRN NITROFURANTOIN MONOHYDRATE AND * Take 100 mg by mouth twice da* EMPAGLIFLOZIN 10 MG TABLET Take 10 mg by mouth once gamaliel* VITAMIN B COMPLEX CAPSULE Take 1 capsule by mouth twice* CREON ORAL Take 6,000 Units by mouth. Wi* VALACYCLOVIR 500 MG TABLET Take 500 mg by mouth as neede* ERGOCALCIFEROL (VITAMIN D2) 5* Take 50,000 Units by mouth on* * INSULIN GLARGINE (U-100) 100 * Take 50 in am and 70 units in* * HUMALOG KWIKPEN (U-100) INSUL* 15 in am, 15 noon, 20 in philip IV CONTRAST (RADIOLOGY PROCED* CT Chest ABD/PEL-Inject, intr* ENTERIC CONTRAST (RADIOLOGY P* For CT CHESTABD/PEL W IVCON R* Problem List As Of Date 08/02/2017 Noted Resolved THYROID NODULE [E04.1] INVALID FOR* More... Anxiety State, Unspecified [F41.1] 01/22/2009 Depressive Disorder, not Elsewhere Classified [* Priority: Moderate More... DM w/o complication type II, uncontrolled [E11.*INVALID FOR* Priority: Severe More... Other Malaise and Fatigue [R53.81, R53.83] INVALID FOR*01/22/2009 More... HYPERLIPIDEMIA NEC/NOS [E78.5] INVALID FOR* FIBROMYALGIA [[id number]] INVALID FOR* Priority: Moderate OVERWEIGHT [E66.9] INVALID FOR* OTHER HAMMER TOE [M20.40] INVALID FOR* More... URIN TRACT INFECTION RECURRENT [N39.0] INVALID FOR*01/21/2016 More... GENITAL HERPES NOS [A60.00] INVALID FOR* Tobacco Use Disorder [F17.200] INVALID FOR* Priority: Moderate More... CONGENITAL PES PLANUS [Q66.50] INVALID FOR* Displacement of Lumbar Intervertebral Disc with*INVALID FOR* Priority: Moderate More... More... Routine Gynecological Examination [Z01.419] INVALID FOR* Class: Chronic More... 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*INVALID FOR* Malignant neoplasm metastatic to left lung (HCC*INVALID FOR* Examination of participant in clinical trial [Z*INVALID FOR* Visit Notes: >> Orlando Langston (TIFFANIE Chang Aug 02, 2017 11:57 AM Status: Signed Est pt, discuss recent lab results. , study pt. Orlando Langston LPN Encounter Status:Closed by CLIFFORD BARAKAT DO on 08/02/17 CBC W/DIFF, AUTOMATED Collected: 08/02/2017 Status: F Source: [place] 9:10 AM [facility] [place] REPOSITORY TYPE CODE TESTS RESULT OUT OF RANGE REFERENCE UNITS LAB L100.1000 4.4-11.0 K/mm3 Normal WBC 4.7 LAB L100.1200 4.2-5.4 M/mm3 Low RBC 3.62 LAB L100.1300 12.0-15.0 g/dl Low HGB 11.4 LAB L100.1400 37-47 % Low HCT 33.9 LAB L100.1500 81-99 fL Normal MCV 93.6 LAB L100.1600 27.0-32.0 pg Normal MCH 31.5 LAB L100.1700 32-36 g/gl Normal MCHC 33.6 LAB L100.1810 11.6-14.6 % Normal RDW CV 12.4 LAB L100.1820 35.1-43.9 fl Normal RDW SD 42.0 LAB L100.1900 150-450 K/mm3 Normal PLT 273 LAB L100.2000 6.2-12.0 fl Normal MPV 8.5 LAB L100.2100 47-70 % Normal NEUT% 60.8 LAB L100.2200 19-41 % Normal LY% 31.5 LAB L100.2300 0-10 % Normal MONO% 6.2 LAB L100.2400 0-5 % Normal EO% 1.1 LAB L100.2500 0-1 % Normal BASO% 0.2 LAB L100.2550 0.0-0.9 % Normal IM GRAN % 0.200 Result Comment: IG% - Immature Granulocytes (promyelocytes, myelocytes and metamyelocytes) > 1% indicates that a LEFT SHIFT is Present. LAB L100.2620 2.0-7.7 X10 3/uL Normal Absolute Neut 2.9 LAB L100.2720 0.83-4.51 X10 3/ul Normal Absolute Lymph 1.48 Performed By: #### L100.0100 #### [facility] [address] [place], [place], [id number] COMPREHENSIVE METABOLIC Collected: 08/02/2017 Status: F Source: [place] [facility] 9:10 AM [facility] [place] REPOSITORY TYPE CODE TESTS RESULT OUT OF RANGE REFERENCE UNITS LAB L501.0100 74-106 mg/dL High GLU 253 Result Comment: Glucose result greater than or equal to 200 mg/dL suggests DIABETES MELLITUS per A.D.A. criteria. Please note revised GLUCOSE reference range effective 2017. LAB L501.1000 7-18 mg/dL High BUN 28 LAB L501.1100 0.55-1.02 mg/dL Normal CREAT,SERUM 0.65 Result Comment: The validity of the calculated GFR AND GFRAA in patients over 70 years has not been determined. Clinical correlation is essential. LAB L501.1110 >60 mL/min Normal EST GFR 104 Result Comment: Non- GFR Calc LAB L501.1115 >60 mL/min Normal EST GFR - AA 126 Result Comment: GFR Calc LAB L501.1300 10-20 RATIO High BUN/CRE 43.2 LAB L501.1500 6.4-8.2 g/dL T Normal PROT 7.4 LAB L501.1800 3.2-5.0 g/dL Normal ALB 3.3 LAB L501.1950 2.2-4.2 g/dL Normal GLOB 4.1 LAB L501.2000 0.9-2.4 RATIO Low A/G 0.8 LAB L501.2200 8.5-10.1 mg/dL CA Normal 8.7 LAB L501.4100 15-37 U/L Normal AST 15 LAB L501.4305 45-117 U/L Normal ALK P 75 LAB L501.4405 13-56 U/L Normal ALT 28 LAB L501.4600 0.20-1.00 mg/dL T Normal BILI 0.20 LAB L501.5300 136-145 mmol/L NA Normal 140 LAB L501.5600 3.5-5.1 mmol/L K Normal 3.9 LAB L501.5900 98-107 mmol/L CL Normal 101 LAB L501.6100 21.0-32.0 mmol/L Normal CO2 29.0 LAB L501.6200 5-15 Normal GAP 10 Performed By: #### L500.4050, L501.5200, L501.9520 #### [facility] [address] [place], [address] MAGNESIUM Collected: 08/02/2017 Status: F Source: [place] 9:10 AM [facility] [place] REPOSITORY TYPE CODE TESTS RESULT OUT OF RANGE REFERENCE UNITS LAB L501.5200 1.6-2.6 mg/dL Low MG 1.5 Performed By: #### L500.4050, L501.5200, L501.9520 #### [facility] [address] [place], [address] THYROID STIM HORMONE Collected: 08/02/2017 Status: F Source: [place] [facility]) 9:10 AM [facility] [place] REPOSITORY TYPE CODE TESTS RESULT OUT OF RANGE REFERENCE UNITS LAB L501.9520 0.358-3.74 uIU/mL Normal TSH 0.71 Performed By: #### L500.4050, L501.5200, L501.9520 #### [facility] [address] [place] [place], [address] VITAMIN B12 Collected: 08/02/2017 Status: F Source: [place] 9:10 AM [facility] [place] REPOSITORY TYPE CODE TESTS RESULT OUT OF RANGE REFERENCE UNITS LAB L503.0105 211-911 pg/mL Normal Vitamin B12 678 Performed By: #### L503.0105 #### [facility] [address] [place], [address] HOSP Observed: 08/02/2017 Status: COMPLETED Source: [place] 12:00 AM [facility] REPOSITORY Patient Update (DANYEL) PEDRO LUIS WILCOX ([id number]) 1970 F Date Time Provider Department 08/02/17 EMRE MCDONOUGH) DANYEL During your visit today, we recorded the following information about you: Emre Mcdonough RN 08/02/2017 4:54 PM Signed IRB# [id number]. ?Randomized on: 01/28/2017. ?ARM: Blinded. Reporting Period: 07/12/17 - 08/02/17: ?? Patient is here?for Cycle #9. ?Physical exam, toxicities, labs, and medications reviewed with Clifford Barakat DO. Patient meets protocol requirements for treatment. Patient will continue with Cycle #9 on ABT-888/Placebo monotherapy. ?? ECOG Score: 0- Fully active, able to carry on all pre-disease performance w/o restriction.? ?? Toxicities: CTCAE V. 4 ?? Nausea, Denies Fatigue, Denies Neuropathy in fingers, denies.? And, no change in lower extremities that is chronic for patient. Arthralgia, denies. ? Denies other C/O's. States she still feels good, just a tired after a long day of work that is relieved by rest. ?? Labs earlier today drawn at [facility]: CBC Hgb 11.4, grade 1, definitely related Decreased Mg, 1.5, grade 1, Unlikely Related Glucose, 253, non-fasting, grade 3, Unrelated. Patient is asymptomatic and states she ate foods yesterday that she knows caused it to be higher today. Not considered an AZ. ?? Menopausal Status: Post Contraception: Hysterectomy LMP: na ?? Research Labs: (Time/Type/Sent to): ?None? QOL / Questionnaires: N/A? ?? The patient states she has been compliant with study medication and has been taking study medication, 4 pills twice daily and has been tolerating them without issue. Patient thought that she brought pills/diary for Cycle #8 with her but she realized when she got here that she did not have them in her purse and left them at home. She will bring them to clinic tomorrow. ?? [place] order-- Dr. Barakat ok to give patient the next cycle of pills/diary. The patient was given a new study medication diary and given 3 new bottles of Veliparib/Placebo with 64 capsules/each as dispensed by the pharmacy. Instructed to return the diary and medication bottle with any remaining medication at next study visit. Use of the study medication diary and dosing instructions were reviewed with the patient. The patient aware to start using Cycle #9 diary tomorrow (start of Cycle #9) as the patient takes study medication daily. ?? Reviewed timeline going forward. Patient to return in 3 weeks with labs prior at [facility] for Cycle #10 (08/23/17). Patient also given order for CT C/A/P and bone scan to be done at [facility] (per insurance) prior to visit. Patient aware needs scheduled within the 7 days prior to 08/23/17. Patient agreeable with this plan. She has contact numbers if she needs anything in the interim. BRITTNEY Ruby RN 08/03/2017 10:06 AM Signed 08/03/17: Patient in to clinic today with completed diary and 1 pill bottle for Veliparib/Placebo from Cycle #8 with 8 pills remaining verified with pharmacy. The other 2 pills bottle dispensed are empty. Per pharmacy, current pill bottle with 8 pills given back to patient. She has not taken her dose for this am yet. Per pill count patient is compliant with study drug self administration. Summary:Patient given a total of 163 pills for Cycle #8. Patient took 3 pills BID, 07/13/17 - 07/19/17 am dose AND 4 pills BID, 07/19/17 pm dose - 08/02/17. Will start Cycle 9 with today's AM dose. Patient denies any needs or concerns this am. Emre Mcdonough RN Allergies As of Date: 08/02/2017 (No Known Allergies) Date Reviewed: 08/02/2017 Reviewed by: Orlando Lanier (Associate Broker) TIFFANIE Langston - Fully Assessed Reason for Visit: Clinical Trial Nurse Note [Other] Cmt: S1416 Prescriptions as of 08/02/2017 Sig: IV CONTRAST (RADIOLOGY PROCED* CT Chest ABD/PEL-Inject, intr* ENTERIC CONTRAST (RADIOLOGY P* For CT CHESTABD/PEL W IVCON R* GABAPENTIN 300 MG CAPSULE Take 300 mg by mouth three ti* TIMOLOL 0.5 % EYE DROPS Use 1 Drop in both eyes once * DICYCLOMINE 20 MG TABLET Take 20 mg by mouth every 8 h* METOCLOPRAMIDE 10 MG TABLET Take 1 tablet by mouth every * LORAZEPAM 1 MG TABLET Take 1 tablet by mouth every * LIDOCAINE-PRILOCAINE 2.5 %-2.* Apply 1 application to affect* CITALOPRAM 20 MG TABLET Take 1 tablet by mouth once d* CLONAZEPAM 0.5 MG TABLET 1 tablet twice daily. PRN NITROFURANTOIN MONOHYDRATE AND * Take 100 mg by mouth twice da* EMPAGLIFLOZIN 10 MG TABLET Take 10 mg by mouth once gamaliel* VITAMIN B COMPLEX CAPSULE Take 1 capsule by mouth twice* CREON ORAL Take 6,000 Units by mouth. Wi* VALACYCLOVIR 500 MG TABLET Take 500 mg by mouth as neede* ERGOCALCIFEROL (VITAMIN D2) 5* Take 50,000 Units by mouth on* * INSULIN GLARGINE (U-100) 100 * Take 50 in am and 70 units in* * HUMALOG KWIKPEN (U-100) INSUL* 15 in am, 15 noon, 20 in philip Problem List As Of Date 08/02/2017 Noted Resolved THYROID NODULE [E04.1] INVALID FOR* More... Anxiety State, Unspecified [F41.1] 01/22/2009 Depressive Disorder, not Elsewhere Classified [* Priority: Moderate More... DM w/o complication type II, uncontrolled [E11.*INVALID FOR* Priority: Severe More... Other Malaise and Fatigue [R53.81, R53.83] INVALID FOR*01/22/2009 More... HYPERLIPIDEMIA NEC/NOS [E78.5] INVALID FOR* FIBROMYALGIA [[id number]] INVALID FOR* Priority: Moderate OVERWEIGHT [E66.9] INVALID FOR* OTHER HAMMER TOE [M20.40] INVALID FOR* More... URIN TRACT INFECTION RECURRENT [N39.0] INVALID FOR*01/21/2016 More... GENITAL HERPES NOS [A60.00] INVALID FOR* Tobacco Use Disorder [F17.200] INVALID FOR* Priority: Moderate More... CONGENITAL PES PLANUS [Q66.50] INVALID FOR* Displacement of Lumbar Intervertebral Disc with*INVALID FOR* Priority: Moderate More... More... Routine Gynecological Examination [Z01.419] INVALID FOR* Class: Chronic More... 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*INVALID FOR* Malignant neoplasm metastatic to left lung (HCC*INVALID FOR* Examination of participant in clinical trial [Z*INVALID FOR* Visit Notes: >> Emre Espinosa Aug 02, 2017 4:28 PM Status: Signed IRB# [id number]. ?Randomized on: 01/28/2017. ?ARM: Blinded. Reporting Period: 07/12/17 - 08/02/17: ?? Patient is here?for Cycle #9. ?Physical exam, toxicities, labs, and medications reviewed with Clifford Barakat DO. Patient meets protocol requirements for treatment. Patient will continue with Cycle #9 on ABT-888/Placebo monotherapy. ?? ECOG Score: 0- Fully active, able to carry on all pre-disease performance w/o restriction.? ?? Toxicities: CTCAE V. 4 ?? Nausea, Denies Fatigue, Denies Neuropathy in fingers, denies.? And, no change in lower extremities that is chronic for patient. Arthralgia, denies. ? Denies other C/O's. States she still feels good, just a tired after a long day of work that is relieved by rest. ?? Labs earlier today drawn at [facility]: CBC Hgb 11.4, grade 1, definitely related Decreased Mg, 1.5, grade 1, Unlikely Related Glucose, 253, non-fasting, grade 3, Unrelated. Patient is asymptomatic and states she ate foods yesterday that she knows caused it to be higher today. Not considered an AZ. ?? Menopausal Status: Post Contraception: Hysterectomy LMP: na ?? Research Labs: (Time/Type/Sent to): ?None? QOL / Questionnaires: N/A? ?? The patient states she has been compliant with study medication and has been taking study medication, 4 pills twice daily and has been tolerating them without issue. Patient thought that she brought pills/diary for Cycle #8 with her but she realized when she got here that she did not have them in her purse and left them at home. She will bring them to clinic tomorrow. ?? [place] order-- Dr. Barakat ok to give patient the next cycle of pills/diary. The patient was given a new study medication diary and given 3 new bottles of Veliparib/Placebo with 64 capsules/each as dispensed by the pharmacy. Instructed to return the diary and medication bottle with any remaining medication at next study visit. Use of the study medication diary and dosing instructions were reviewed with the patient. The patient aware to start using Cycle #9 diary tomorrow (start of Cycle #9) as the patient takes study medication daily. ?? Reviewed timeline going forward. Patient to return in 3 weeks with labs prior at [facility] for Cycle #10 (08/23/17). Patient also given order for CT C/A/P and bone scan to be done at [facility] (per insurance) prior to visit. Patient aware needs scheduled within the 7 days prior to 08/23/17. Patient agreeable with this plan. She has contact numbers if she needs anything in the interim. Emre Mcdonough RN >> mEre Jacobson) Ceasar TueAug 03, 2017 9:27 AM Status: Signed 08/03/17: Patient in to clinic today with completed diary and 1 pill bottle for Veliparib/Placebo from Cycle #8 with 8 pills remaining verified with pharmacy. The other 2 pills bottle dispensed are empty. Per pharmacy, current pill bottle with 8 pills given back to patient. She has not taken her dose for this am yet. Per pill count patient is compliant with study drug self administration. Summary:Patient given a total of 163 pills for Cycle #8. Patient took 3 pills BID, 07/13/17 - 07/19/17 am dose AND 4 pills BID, 07/19/17 pm dose - 08/02/17. Will start Cycle 9 with today's AM dose. Patient denies any needs or concerns this am. Emre Mcdonough RN Encounter Status:Closed by EMRE MCDONOUGH on 08/03/17 HOSP Observed: 07/22/2017 Status: COMPLETED Source: [place] 12:00 AM [facility] REPOSITORY Patient Update (DANYEL) PEDRO LUIS WILCOX ([id number]) 1970 F Date Time Provider Department 07/22/17 EMRE MCDONOUGH) DANYEL During your visit today, we recorded the following information about you: Emre Mcdonough RN 07/22/2017 12:47 PM Signed Patient did not come in yesterday but is in today. Port flush order signed by Dr. Barakat given to patient. Letter for work given to patient and she states that after further discussion with her employer, she needs to work four 9 hour shifts. She need the letter to state 9 hours [address] ok with Dr. Barakat. She can pick it up next week. Employer is going to go ahead and schedule her for 9 hour shifts and can turn letter in next week. Also, patient given another bottle of Velaparib/Placebo 100mg, 400mg BID for 21 days as dispensed by the pharmacy and [place] order. This will provide her enough pills to get to next appointment on increased dose. Patient states that she is tolerating the increase dose so far without any issues. Patient has upcoming appointment times and has contact information for any needs/concerns in the interim. Emre Mcdonough RN Allergies As of Date: 07/22/2017 (No Known Allergies) Date Reviewed: 07/12/2017 Reviewed by: Veronica Harris - Fully Assessed Reason for Visit: Clinical Trial Note [Other] Cmt: S1416 Prescriptions as of 07/22/2017 Sig: GABAPENTIN 300 MG CAPSULE Take 300 mg by mouth three ti* TIMOLOL 0.5 % EYE DROPS Use 1 Drop in both eyes once * DICYCLOMINE 20 MG TABLET Take 20 mg by mouth every 8 h* METOCLOPRAMIDE 10 MG TABLET Take 1 tablet by mouth every * LORAZEPAM 1 MG TABLET Take 1 tablet by mouth every * LIDOCAINE-PRILOCAINE 2.5 %-2.* Apply 1 application to affect* CITALOPRAM 20 MG TABLET Take 1 tablet by mouth once d* CLONAZEPAM 0.5 MG TABLET 1 tablet twice daily. PRN NITROFURANTOIN MONOHYDRATE AND * Take 100 mg by mouth twice da* EMPAGLIFLOZIN 10 MG TABLET Take 10 mg by mouth once gamaliel* VITAMIN B COMPLEX CAPSULE Take 1 capsule by mouth twice* CREON ORAL Take 6,000 Units by mouth. Wi* VALACYCLOVIR 500 MG TABLET Take 500 mg by mouth as neede* ERGOCALCIFEROL (VITAMIN D2) 5* Take 50,000 Units by mouth on* * INSULIN GLARGINE (U-100) 100 * Take 50 in am and 70 units in* * HUMALOG KWIKPEN (U-100) INSUL* 15 in am, 15 noon, 20 in philip Problem List As Of Date 07/22/2017 Noted Resolved THYROID NODULE [E04.1] INVALID FOR* More... Anxiety State, Unspecified [F41.1] 01/22/2009 Depressive Disorder, not Elsewhere Classified [* Priority: Moderate More... DM w/o complication type II, uncontrolled [E11.*INVALID FOR* Priority: Severe More... Other Malaise and Fatigue [R53.81, R53.83] INVALID FOR*01/22/2009 More... HYPERLIPIDEMIA NEC/NOS [E78.5] INVALID FOR* FIBROMYALGIA [CXW3455] INVALID FOR* Priority: Moderate OVERWEIGHT [E66.9] INVALID FOR* OTHER HAMMER TOE [M20.40] INVALID FOR* More... URIN TRACT INFECTION RECURRENT [N39.0] INVALID FOR*01/21/2016 More... GENITAL HERPES NOS [A60.00] INVALID FOR* Tobacco Use Disorder [F17.200] INVALID FOR* Priority: Moderate More... CONGENITAL PES PLANUS [Q66.50] INVALID FOR* Displacement of Lumbar Intervertebral Disc with*INVALID FOR* Priority: Moderate More... More... Routine Gynecological Examination [Z01.419] INVALID FOR* Class: Chronic More... 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*INVALID FOR* Malignant neoplasm metastatic to left lung (HCC*INVALID FOR* Examination of participant in clinical trial [Z*INVALID FOR* Visit Notes: >> Emre (Brittney) Ceasar TueJul 22, 2017 12:41 PM Status: Signed Patient did not come in yesterday but is in today. [place] flush order signed by Dr. Barakat given to patient. Letter for work given to patient and she states that after further discussion with her employer, she needs to work four 9 hour shifts. She need the letter to state [address] Barakat. She can pick it up next week. Employer is going to go ahead and schedule her for 9 hour shifts and can turn letter in next week. Also, patient given another bottle of Velaparib/Placebo 100mg, 400mg BID for 21 days as dispensed by the pharmacy and [place] order. This will provide her enough pills to get to next appointment on increased dose. Patient states that she is tolerating the increase dose so far without any issues. Patient has upcoming appointment times and has contact information for any needs/concerns in the interim. Emre Mcdonough RN Encounter Status:Closed by EMRE MCDONOUGH on 07/22/17 [facility] Observed: 07/22/2017 Status: COMPLETED Source: [place] 12:00 AM [facility] REPOSITORY Letter Text Clifford Barakat DO Hematology AND Medical Oncology/[address] [place], [place] [address] July 22, 2017 Pedro Luis Wilcox To Whom It May Concern, ? This letter is to certify that Ms. Pedro Luis Wilcox is a patient under my care for metastatic breast cancer. She continues on active treatment for the disease. She will need to decrease her workday to an 9 hour shift until further notice. ? Please feel free to contact me at any time with any questions or concerns. ? ? Sincerely, ? 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 Patient denies any issues or new concerns. Emre Mcdonough RN Allergies As of Date: 07/19/2017 (No Known Allergies) Date Reviewed: 07/12/2017 Reviewed by: Veronica Harris - Fully Assessed Reason for Visit: Clinical Trial Note [Other] Cmt: S1416 Prescriptions as of 07/19/2017 Sig: GABAPENTIN 300 MG CAPSULE Take 300 mg by mouth three ti* TIMOLOL 0.5 % EYE DROPS Use 1 Drop in both eyes once * DICYCLOMINE 20 MG TABLET Take 20 mg by mouth every 8 h* METOCLOPRAMIDE 10 MG TABLET Take 1 tablet by mouth every * LORAZEPAM 1 MG TABLET Take 1 tablet by mouth every * LIDOCAINE-PRILOCAINE 2.5 %-2.* Apply 1 application to affect* CITALOPRAM 20 MG TABLET Take 1 tablet by mouth once d* CLONAZEPAM 0.5 MG TABLET 1 tablet twice daily. PRN NITROFURANTOIN MONOHYDRATE AND * Take 100 mg by mouth twice da* EMPAGLIFLOZIN 10 MG TABLET Take 10 mg by mouth once gamaliel* VITAMIN B COMPLEX CAPSULE Take 1 capsule by mouth twice* CREON ORAL Take 6,000 Units by mouth. Wi* VALACYCLOVIR 500 MG TABLET Take 500 mg by mouth as neede* ERGOCALCIFEROL (VITAMIN D2) 5* Take 50,000 Units by mouth on* * INSULIN GLARGINE (U-100) 100 * Take 50 in am and 70 units in* * HUMALOG KWIKPEN (U-100) INSUL* 15 in am, 15 noon, 20 in philip Problem List As Of Date 07/19/2017 Noted Resolved THYROID NODULE [E04.1] INVALID FOR* More... Anxiety State, Unspecified [F41.1] 01/22/2009 Depressive Disorder, not Elsewhere Classified [* Priority: Moderate More... DM w/o complication type II, uncontrolled [E11.*INVALID FOR* Priority: Severe More... Other Malaise and Fatigue [R53.81, R53.83] INVALID FOR*01/22/2009 More... HYPERLIPIDEMIA NEC/NOS [E78.5] INVALID FOR* FIBROMYALGIA [ODZ0814] INVALID FOR* Priority: Moderate OVERWEIGHT [E66.9] INVALID FOR* OTHER HAMMER TOE [M20.40] INVALID FOR* More... URIN TRACT INFECTION RECURRENT [N39.0] INVALID FOR*01/21/2016 More... GENITAL HERPES NOS [A60.00] INVALID FOR* Tobacco Use Disorder [F17.200] INVALID FOR* Priority: Moderate More... CONGENITAL PES PLANUS [Q66.50] INVALID FOR* Displacement of Lumbar Intervertebral Disc with*INVALID FOR* Priority: Moderate More... More... Routine Gynecological Examination [Z01.419] INVALID FOR* Class: Chronic More... 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 Patient denies any issues or new concerns. Emre Mcdonough RN Encounter Status:Closed by EMRE MCDONOUGH on 07/19/17 HOSP Observed: 07/19/2017 Status: COMPLETED Source: [place] 12:00 AM [facility] REPOSITORY Patient Update (DANYEL) PEDRO LUIS WILCOX ([id number]) 1970 F Date Time Provider Department 07/19/17 EMRE MCDONOUGH) DANYEL During your visit today, we recorded the following information about you: Emre Mcdonough RN 07/19/2017 5:01 PM Signed Reviewed protocol treatment plan with Dr. Barakat. Section 7.2. Dr. Barakat would like patient to increase dose of Velaparib versus Placebo to 400mg BID for the full 21 day cycle starting with this current cycle (#8) since she has been tolerating the 300mg dose. Call to patient and she states understanding and will start 400mg dose this pm. 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 Christ in pharmacy aware. [place] order sent to Dr. Barakat and signed. She has also asked for port flush order for [facility]. 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 Dr. Barakat aware and orders signed. Emre Mcdonough RN Allergies As of Date: 07/19/2017 (No Known Allergies) Date Reviewed: 07/12/2017 Reviewed by: Veronica Harris - Fully Assessed Reason for Visit: Clinical Trial Nurse Note [Other] Cmt: S1416 Prescriptions as of 07/19/2017 Sig: GABAPENTIN 300 MG CAPSULE Take 300 mg by mouth three ti* TIMOLOL 0.5 % EYE DROPS Use 1 Drop in both eyes once * DICYCLOMINE 20 MG TABLET Take 20 mg by mouth every 8 h* METOCLOPRAMIDE 10 MG TABLET Take 1 tablet by mouth every * LORAZEPAM 1 MG TABLET Take 1 tablet by mouth every * LIDOCAINE-PRILOCAINE 2.5 %-2.* Apply 1 application to affect* CITALOPRAM 20 MG TABLET Take 1 tablet by mouth once d* CLONAZEPAM 0.5 MG TABLET 1 tablet twice daily. PRN NITROFURANTOIN MONOHYDRATE AND * Take 100 mg by mouth twice da* EMPAGLIFLOZIN 10 MG TABLET Take 10 mg by mouth once gamaliel* VITAMIN B COMPLEX CAPSULE Take 1 capsule by mouth twice* CREON ORAL Take 6,000 Units by mouth. Wi* VALACYCLOVIR 500 MG TABLET Take 500 mg by mouth as neede* ERGOCALCIFEROL (VITAMIN D2) 5* Take 50,000 Units by mouth on* * INSULIN GLARGINE (U-100) 100 * Take 50 in am and 70 units in* * HUMALOG KWIKPEN (U-100) INSUL* 15 in am, 15 noon, 20 in philip Problem List As Of Date 07/19/2017 Noted Resolved THYROID NODULE [E04.1] INVALID FOR* More... Anxiety State, Unspecified [F41.1] 01/22/2009 Depressive Disorder, not Elsewhere Classified [* Priority: Moderate More... DM w/o complication type II, uncontrolled [E11.*INVALID FOR* Priority: Severe More... Other Malaise and Fatigue [R53.81, R53.83] INVALID FOR*01/22/2009 More... HYPERLIPIDEMIA NEC/NOS [E78.5] INVALID FOR* FIBROMYALGIA [[id number]] INVALID FOR* Priority: Moderate OVERWEIGHT [E66.9] INVALID FOR* OTHER HAMMER TOE [M20.40] INVALID FOR* More... URIN TRACT INFECTION RECURRENT [N39.0] INVALID FOR*01/21/2016 More... GENITAL HERPES NOS [A60.00] INVALID FOR* Tobacco Use Disorder [F17.200] INVALID FOR* Priority: Moderate More... CONGENITAL PES PLANUS [Q66.50] INVALID FOR* Displacement of Lumbar Intervertebral Disc with*INVALID FOR* Priority: Moderate More... More... Routine Gynecological Examination [Z01.419] INVALID FOR* Class: Chronic More... 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*INVALID FOR* Malignant neoplasm metastatic to left lung (HCC*INVALID FOR* Examination of participant in clinical trial [Z*INVALID FOR* Visit Notes: >> Emre Espinosa Jul 19, 2017 4:02 PM Status: Signed Reviewed protocol treatment plan with Dr. Barakat. Section 7.2. Dr. Barakat would like patient to increase dose of Velaparib versus Placebo to 400mg BID for the full 21 day cycle starting with this current cycle (#8) since she has been tolerating the 300mg dose. Call to patient and she states understanding and will start 400mg dose this pm. 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 Christ in pharmacy aware. [place] order sent to Dr. Barakat and signed. She has also asked for port flush order for [facility]. 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 Dr. Barakat aware and orders signed. Emre Mcdonough RN Encounter Status:Closed by EMRE MCDONOUGH on 07/21/17 CNOVSP Observed: 07/12/2017 Status: COMPLETED Source: [place] 4:00 PM [facility] REPOSITORY Visit (SP) Office (DANYEL) PEDRO LUIS WILCOX ([id number]) 1970 F Date Time Provider Department 07/12/17 4:00 PM ARABELLA DONOVAN During your visit today, we recorded the following information about you: Temperature Pulse Blood pressure Weight 98.1 degrees 100/minute 136/63 93.9 kg Arabella Donovan MD 07/13/2017 8:21 AM Signed Diagnosis: 1) Breast cancer. ? 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 ? Her mother has a h/o breast cancer, so patient had been undergoing annual mammogram. ? The patient underwent a screening mammogram on 08/30/2013. A 1.6 cm nodular density was appreciated in the tail of the right breast. She underwent targeted ultrasound the same day. That study revealed a 9 mm hypoechoic solid nodule at the 10:00 position of the breast measuring 6 cm from the nipple. ? Stereotactic core needle biopsy on 09/13/2013. The tissue revealed invasive poorly differentiated ductal carcinoma. The specimen was negative for both estrogen and progesterone receptors. Both were quantified at 0%. HER-2 was 2+ an immunostain and nonamplified by FISH testing. ? The patient underwent an MRI of the breast on 09/20/2013. The study revealed that the left breast had no suspicious findings. In the right breast there was a 1.6 cm abnormal enhancing mass in the superior outer aspect of the right breast approximately 10 cm from the nipple. This correlated to the biopsy area. ? Underwent partial mastectomy with SLN biopsy 10/05/2013. The final pathology revealed an invasive poorly differentiated ductal carcinoma measuring 1.3 cm in size. There was a single focus. DCIS was present measuring 2 mm in maximum dimension. The grade of the cancer was 3. Margins were negative. The closest was 6 mm. Lymphovascular invasion was not identified. One sentinel lymph node was retrieved. It was negative. Received two cycles of TC. ? Admitted for severe PAGE. ? Admitted 12/17/2013 due to increase in thigh pain and dyspnea. Markedly elevated CK. No increase in serum Cr. ? Chemotherapy stopped after cycle #2. ? Was seen by ornamental plasterer helper at . 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 ? Completed radiation 03/26/2014. ? ? ? She started developing intermittent shortness of breath with exertion. She also has a cough that is a dry cough. She was taken off her PAM inhibitor but the cough has not changed. She had a PA and lateral chest film done on 10/22/2016 that demonstrated no abnormality. She then underwent a CT scan the chest without IV contrast on 11/06/2016. Two nodules were observed in the pulmonary parenchyma. One was located in the right lower lobe and the second was located in the lingular lobe. Each measured 8 mm and were thought to be consistent with metastatic disease. CT of the abdomen and pelvis on 11/20/2016 as well as repeat CT chest with IV contrast demonstrated a thick walled gallbladder suspicious for cystitis, chronic and redemonstration of the lung nodules. No concern for metastatic disease in the abdomen or pelvis. Brain MRI on 11/23/2016 was normal. PET scan demonstrated multiple foci of increased glucose concentration manifested in the right axilla, significant region generating a standard uptake value of 7.6. The maximal axial diameter the largest individual hypermetabolic soft tissue density on review of the CT of the thorax was approximately 23.1 mm in transverse dimension. ? An ultrasound of the right axilla and subclavicular region on 12/02/2016 demonstrated that within the right axilla there was a cluster of abnormal appearing hypoechoic nodules. The largest measured 2.3 x 1.50 1.4 cm. In the subclavicular region there was also evidence of several hypoechoic nodules the largest measuring 2.75 x 2.85 1.5 cm. ? She then underwent a right axillary core needle biopsy on 12/07/2016. ? The pathology demonstrated a poorly differentiated metastatic carcinoma. The specimen was negative for both ER and KS as well as HER-2. I discussed the case with the pathologist today who told me that histologically/morphologically the specimen was consistent with her previous specimen of breast cancer. The pathologist will issue an addendum quantifying ER and KS 0 as well as HER-2 at 0. ? She had a stress test and echocardiogram about 3 years ago and had no evidence of coronary artery disease. She had LV concentric hypertrophy with preserved ejection fraction. ? She underwent port placement along with right axillary lymph node dissection on 12/24/2016. ? MICROSCOPIC DIAGNOSIS Right axillary lymph nodes, regional lymph adenectomy: One out of seven lymph nodes with metastatic poorly differentiated carcinoma. See comment. COMMENT Immunohistochemistry ([id number]) does not rule out a breast primary. There is focal perinodal extension of tumor. Clinical correlation is suggested. ? ANTIBODY / CLONE RESULT Block 1 Mammaglobin (31A5) negative GATA3 (L50-823) positive, rare, dim CK8 (88ttsoG00) positive Ki-67 (30-9) positive, moderate to high ER (6F11) negative 0% KS (1E2) negative 0% CK19 (A53-B/A2.26) positive Cyclin D1/BCL-1 (SP4) positive CEA (11-7/TF-3HB-1) negative SHELLI (E29) positive CK20 (KS20.8) negative Villin (CWWB1) negative RCC (PN-15) negative CA125 (OC125) positive ? Current therapy: 1) Cisplatin (+/- PARP inhibitor on trial). ? Presents for ongoing oncologic management. ? Interim history: She said she is feeling well she offers no complaints today. She's had no nausea, vomiting, or diarrhea. Appetite is normal. She doesn't have any shortness of breath at rest or with exertion. No cough or chest pain. Stable neuropathy of the feet and distal lower extremities. ? PMH, medications and allergies as below personally reviewed by me today. Any changes documented in appropriate section. ? ROS: Constitutional: Denies episodes of fever and night sweats. Normal appetite. Neuro: Denies DOZIER, vertigo, dizziness and imbalance. HEENT: No recent change in voice, vision or hearing. Resp: See above. CVS: Denies exertional chest pain, PND, orthopnea and LE edema. GI: Denies dysgeusia. Denies symptoms of stomatitis. Denies dysphagia and odynophagia. Denies reflux, n/v, change in bowel habits and abdominal pain. : Denies dysuria or gross hematuria. No symptoms of bladder outlet obstruction. Endo: Denies hot flashes. Denies polyuria and polydipsia. Denies heat and cold intolerance. Musculoskeletal: Denies bone, back, joint and muscular pain. Derm: Denies rash. Denies jaundice and diffuse pruritis. Heme: Denies unusual bleeding and unexplained bruising. Psych: Normal mood. ? PHYSICAL EXAM: Well-appearing and in no acute distress. performance status 100% EYES: Sclerae are anicteric bilaterally. ENT: Oral mucosa is unremarkable. There is no sign of thrush or mucositis. NECK: Supple. LYMPHATIC: There is no palpable cervical, supraclavicular or inguinal adenopathy. No left axillary adenopathy. No adenopathy appreciated in right axilla. RESPIRATORY: Inspiratory breath sounds are of normal intensity in all norris. No rales, wheezes or rhonchi. CARDIOVASCULAR: Rhythm is regular. Normal intensity S1/S2. There is no gallop or murmur. ABDOMEN: The abdomen is nondistended. No organomegaly. No tenderness. Extremities: No swelling or edema. SKIN: No jaundice or rash. No petechiae. NEUROLOGIC: station attendant II-XII are grossly intact. No focal motor weakness. MUSCULOSKELETAL: No muscle wasting. No tenderness over the greater trochanters bilaterally. ? LABS: Review per protocol. 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 Comprehensive BRCA 1 and 2 testing (scanned 12/05/2013) no mutation Complicated by myositis during adjuvant chemotherapy. -KPS is 90%. 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 -OV in 3 weeks. labs per study protocol ( check TSH and vitamin B12 levels with next set of labs ) -CT chest/abdomen/pelvis in August 2017. Arabella Donovan MD Cc: Dr. Jacinto Person Referring Provider: CLIFFORD BARAKAT [[id number]] Allergies As of Date: 07/12/2017 (No Known Allergies) Date Reviewed: 07/12/2017 Reviewed by: Veronica Harris - Fully Assessed Reason for Visit: Established Patient [175] Primary Visit Diagnosis:Malignant neoplasm of upper-outer quadrant of right breast in female, estrogen receptor negative (HCC) [C50.411, Z17.1] Other Visit Diagnoses:Examination of participant in clinical trial [Z00.6] Neuropathy (HCC) [G62.9] Order(s):[facility]MON[facility] COMMUNICATION ORDER [[id number]] Order #: [id number]: 1 HEMONC NURSING COMMUNICATION [[id number]] Order #: [id number]: 1 STANDING HEMONC NURSING COMMUNICATION [[id number]] Order #: [id number]: 1 STANDING HEMONC NURSING COMMUNICATION [[id number]] Order #: [id number]: 1 STANDING HEMONC NURSING COMMUNICATION [[id number]] Order #: [id number]: 1 STANDING HEMONC NURSING COMMUNICATION [[id number]] Order #: [id number]: 1 STANDING Level of Service: EST PATIENT VISIT LEVEL 3 [[id number]] Disposition: Return in about 3 weeks (around 08/02/2017). Follow-up and Disposition History Recorded Prescriptions as of 07/12/2017 Sig: GABAPENTIN 300 MG CAPSULE Take 300 mg by mouth three ti* TIMOLOL 0.5 % EYE DROPS Use 1 Drop in both eyes once * DICYCLOMINE 20 MG TABLET Take 20 mg by mouth every 8 h* METOCLOPRAMIDE 10 MG TABLET Take 1 tablet by mouth every * LORAZEPAM 1 MG TABLET Take 1 tablet by mouth every * LIDOCAINE-PRILOCAINE 2.5 %-2.* Apply 1 application to affect* CITALOPRAM 20 MG TABLET Take 1 tablet by mouth once d* CLONAZEPAM 0.5 MG TABLET 1 tablet twice daily. PRN NITROFURANTOIN MONOHYDRATE AND * Take 100 mg by mouth twice da* EMPAGLIFLOZIN 10 MG TABLET Take 10 mg by mouth once gamaliel* VITAMIN B COMPLEX CAPSULE Take 1 capsule by mouth twice* CREON ORAL Take 6,000 Units by mouth. Wi* VALACYCLOVIR 500 MG TABLET Take 500 mg by mouth as neede* ERGOCALCIFEROL (VITAMIN D2) 5* Take 50,000 Units by mouth on* * INSULIN GLARGINE (U-100) 100 * Take 50 in am and 70 units in* * HUMALOG KWIKPEN (U-100) INSUL* 15 in am, 15 noon, 20 in philip Medication notes this encounter INSULIN GLARGINE (U-100) 100 UNIT/ML SUBCUTANEOUS SOLUTION >> Veronica Harris MA 07/12/2017 4:00 PM >> VERONICA HARRIS MA fozia Jul 12, 2017 4:00 PM 30 units twice daily. HUMALOG KWIKPEN (U-100) INSULIN 100 UNIT/ML SUBCUTANEOUS >> Veronica Harris MA 07/12/2017 4:00 PM >> VERONICA HARRIS MA Jul 12, 2017 4:00 PM 30 units three times daily. MOMETASONE-FORMOTEROL HFA 200 MCG-5 MCG/ACTUATION AEROSOL INHALER >> Veronica Harris MA 07/12/2017 4:04 PM >> VERONICA HARRIS MA Jul 12, 2017 4:04 PM No longer using. OMEPRAZOLE 40 MG CAPSULE,DELAYED RELEASE >> Veronica Harris MA 07/12/2017 4:05 PM >> VERONICA HARRIS MA Jul 12, 2017 4:05 PM No longer taking. Problem List As Of Date 07/12/2017 Noted Resolved THYROID NODULE [E04.1] INVALID FOR* More... Anxiety State, Unspecified [F41.1] 01/22/2009 Depressive Disorder, not Elsewhere Classified [* Priority: Moderate More... DM w/o complication type II, uncontrolled [E11.*INVALID FOR* Priority: Severe More... Other Malaise and Fatigue [R53.81, R53.83] INVALID FOR*01/22/2009 More... HYPERLIPIDEMIA NEC/NOS [E78.5] INVALID FOR* FIBROMYALGIA [[id number]] INVALID FOR* Priority: Moderate OVERWEIGHT [E66.9] INVALID FOR* OTHER HAMMER TOE [M20.40] INVALID FOR* More... URIN TRACT INFECTION RECURRENT [N39.0] INVALID FOR*01/21/2016 More... GENITAL HERPES NOS [A60.00] INVALID FOR* Tobacco Use Disorder [F17.200] INVALID FOR* Priority: Moderate More... CONGENITAL PES PLANUS [Q66.50] INVALID FOR* Displacement of Lumbar Intervertebral Disc with*INVALID FOR* Priority: Moderate More... More... Routine Gynecological Examination [Z01.419] INVALID FOR* Class: Chronic More... 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*INVALID FOR* Malignant neoplasm metastatic to left lung (HCC*INVALID FOR* Examination of participant in clinical trial [Z*INVALID FOR* Encounter Status:Closed by ARABELLA DONOVAN MD on 07/13/17 PROGRESS Observed: 07/12/2017 Status: COMPLETED Source: [place] 3:59 PM [facility] REPOSITORY O ID: [id number] Author: Arabella Donovan Service: (none) Author Type: Physician Type: Progress Notes Filed: 07/13/2017 8:21 AM Note Text: Diagnosis: 1) Breast cancer. ? 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 ? Her mother has a h/o breast cancer, so patient had been undergoing annual mammogram. ? The patient underwent a screening mammogram on 08/30/2013. A 1.6 cm nodular density was appreciated in the tail of the right breast. She underwent targeted ultrasound the same day. That study revealed a 9 mm hypoechoic solid nodule at the 10:00 position of the breast measuring 6 cm from the nipple. ? Stereotactic core needle biopsy on 09/13/2013. The tissue revealed invasive poorly differentiated ductal carcinoma. The specimen was negative for both estrogen and progesterone receptors. Both were quantified at 0%. HER-2 was 2+ an immunostain and nonamplified by FISH testing. ? The patient underwent an MRI of the breast on 09/20/2013. The study revealed that the left breast had no suspicious findings. In the right breast there was a 1.6 cm abnormal enhancing mass in the superior outer aspect of the right breast approximately 10 cm from the nipple. This correlated to the biopsy area. ? Underwent partial mastectomy with SLN biopsy 10/05/2013. The final pathology revealed an invasive poorly differentiated ductal carcinoma measuring 1.3 cm in size. There was a single focus. DCIS was present measuring 2 mm in maximum dimension. The grade of the cancer was 3. Margins were negative. The closest was 6 mm. Lymphovascular invasion was not identified. One sentinel lymph node was retrieved. It was negative. Received two cycles of TC. ? Admitted for severe PAGE. ? Admitted 12/17/2013 due to increase in thigh pain and dyspnea. Markedly elevated CK. No increase in serum Cr. ? Chemotherapy stopped after cycle #2. ? Was seen by ornamental plasterer helper at . 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 ? Completed radiation 03/26/2014. ? ? ? She started developing intermittent shortness of breath with exertion. She also has a cough that is a dry cough. She was taken off her PAM inhibitor but the cough has not changed. She had a PA and lateral chest film done on 10/22/2016 that demonstrated no abnormality. She then underwent a CT scan the chest without IV contrast on 11/06/2016. Two nodules were observed in the pulmonary parenchyma. One was located in the right lower lobe and the second was located in the lingular lobe. Each measured 8 mm and were thought to be consistent with metastatic disease. CT of the abdomen and pelvis on 11/20/2016 as well as repeat CT chest with IV contrast demonstrated a thick walled gallbladder suspicious for cystitis, chronic and redemonstration of the lung nodules. No concern for metastatic disease in the abdomen or pelvis. Brain MRI on 11/23/2016 was normal. PET scan demonstrated multiple foci of increased glucose concentration manifested in the right axilla, significant region generating a standard uptake value of 7.6. The maximal axial diameter the largest individual hypermetabolic soft tissue density on review of the CT of the thorax was approximately 23.1 mm in transverse dimension. ? An ultrasound of the right axilla and subclavicular region on 12/02/2016 demonstrated that within the right axilla there was a cluster of abnormal appearing hypoechoic nodules. The largest measured 2.3 x 1.50 1.4 cm. In the subclavicular region there was also evidence of several hypoechoic nodules the largest measuring 2.75 x 2.85 1.5 cm. ? She then underwent a right axillary core needle biopsy on 12/07/2016. ? The pathology demonstrated a poorly differentiated metastatic carcinoma. The specimen was negative for both ER and KS as well as HER- 2. I discussed the case with the pathologist today who told me that histologically/morphologically the specimen was consistent with her previous specimen of breast cancer. The pathologist will issue an addendum quantifying ER and KS 0 as well as HER-2 at 0. ? She had a stress test and echocardiogram about 3 years ago and had no evidence of coronary artery disease. She had LV concentric hypertrophy with preserved ejection fraction. ? She underwent port placement along with right axillary lymph node dissection on 12/24/2016. ? MICROSCOPIC DIAGNOSIS Right axillary lymph nodes, regional lymph adenectomy: One out of seven lymph nodes with metastatic poorly differentiated carcinoma. See comment. COMMENT Immunohistochemistry ([id number]) does not rule out a breast primary. There is focal perinodal extension of tumor. Clinical correlation is suggested. ? ANTIBODY / CLONE RESULT Block 1 Mammaglobin (31A5) negative GATA3 (L50-823) positive, rare, dim CK8 (56mvvzO02) positive Ki-67 (30-9) positive, moderate to high ER (6F11) negative 0% KS (1E2) negative 0% CK19 (A53-B/A2.26) positive Cyclin D1/BCL-1 (SP4) positive CEA (11-7/TF-3HB-1) negative SHELLI (E29) positive CK20 (KS20.8) negative Villin (CWWB1) negative RCC (PN-15) negative CA125 (OC125) positive ? Current therapy: 1) Cisplatin (+/- PARP inhibitor on trial). ? Presents for ongoing oncologic management. ? Interim history: She said she is feeling well she offers no complaints today. She's had no nausea, vomiting, or diarrhea. Appetite is normal. She doesn't have any shortness of breath at rest or with exertion. No cough or chest pain. Stable neuropathy of the feet and distal lower extremities. ? PMH, medications and allergies as below personally reviewed by me today. Any changes documented in appropriate section. ? ROS: Constitutional: Denies episodes of fever and night sweats. Normal appetite. Neuro: Denies DOZIER, vertigo, dizziness and imbalance. HEENT: No recent change in voice, vision or hearing. Resp: See above. CVS: Denies exertional chest pain, PND, orthopnea and LE edema. GI: Denies dysgeusia. Denies symptoms of stomatitis. Denies dysphagia and odynophagia. Denies reflux, n/v, change in bowel habits and abdominal pain. : Denies dysuria or gross hematuria. No symptoms of bladder outlet obstruction. Endo: Denies hot flashes. Denies polyuria and polydipsia. Denies heat and cold intolerance. Musculoskeletal: Denies bone, back, joint and muscular pain. Derm: Denies rash. Denies jaundice and diffuse pruritis. Heme: Denies unusual bleeding and unexplained bruising. Psych: Normal mood. ? PHYSICAL EXAM: Well-appearing and in no acute distress. performance status 100% EYES: Sclerae are anicteric bilaterally. ENT: Oral mucosa is unremarkable. There is no sign of thrush or mucositis. NECK: Supple. LYMPHATIC: There is no palpable cervical, supraclavicular or inguinal adenopathy. No left axillary adenopathy. No adenopathy appreciated in right axilla. RESPIRATORY: Inspiratory breath sounds are of normal intensity in all norris. No rales, wheezes or rhonchi. CARDIOVASCULAR: Rhythm is regular. Normal intensity S1/S2. There is no gallop or murmur. ABDOMEN: The abdomen is nondistended. No organomegaly. No tenderness. Extremities: No swelling or edema. SKIN: No jaundice or rash. No petechiae. NEUROLOGIC: station attendant II-XII are grossly intact. No focal motor weakness. MUSCULOSKELETAL: No muscle wasting. No tenderness over the greater trochanters bilaterally. ? LABS: Review per protocol. 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 Comprehensive BRCA 1 and 2 testing (scanned 12/05/2013) no mutation Complicated by myositis during adjuvant chemotherapy. -KPS is 90%. 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 -OV in 3 weeks. labs per study protocol ( check TSH and vitamin B12 levels with next set of labs ) -CT chest/abdomen/pelvis in August 2017. Arabelal Donovan MD Cc: Dr. Jacinto Person CBC W/DIFF, AUTOMATED Collected: 07/12/2017 Status: F Source: [place] 9:08 AM [facility] [place] REPOSITORY TYPE CODE TESTS RESULT OUT OF RANGE REFERENCE UNITS LAB L100.1000 4.4-11.0 K/mm3 Normal WBC 4.9 LAB L100.1200 4.2-5.4 M/mm3 Low RBC 3.51 LAB L100.1300 12.0-15.0 g/dl Low HGB 11.1 LAB L100.1400 37-47 % Low HCT 33.7 LAB L100.1500 81-99 fL Normal MCV 96.0 LAB L100.1600 27.0-32.0 pg Normal MCH 31.6 LAB L100.1700 32-36 g/gl Normal MCHC 32.9 LAB L100.1810 11.6-14.6 % Normal RDW CV 12.5 LAB L100.1820 35.1-43.9 fl Normal RDW SD 43.0 LAB L100.1900 150-450 K/mm3 Normal PLT 271 LAB L100.2000 6.2-12.0 fl Normal MPV 9.1 LAB L100.2100 47-70 % Normal NEUT% 56.3 LAB L100.2200 19-41 % Normal LY% 36.0 LAB L100.2300 0-10 % Normal MONO% 6.3 LAB L100.2400 0-5 % Normal EO% 1.2 LAB L100.2500 0-1 % Normal BASO% 0.2 LAB L100.2550 0.0-0.9 % Normal IM GRAN % 0.000 Result Comment: IG% - Immature Granulocytes (promyelocytes, myelocytes and metamyelocytes) > 1% indicates that a LEFT SHIFT is Present. LAB L100.2620 2.0-7.7 X10 3/uL Normal Absolute Neut 2.8 LAB L100.2720 0.83-4.51 X10 3/ul Normal Absolute Lymph 1.76 Performed By: #### L100.0100 #### [facility] [address] [place], [address] COMPREHENSIVE METABOLIC Collected: 07/12/2017 Status: F Source: [facility] 9:08 AM [facility] [place] REPOSITORY TYPE CODE TESTS RESULT OUT OF RANGE REFERENCE UNITS LAB L501.0100 74-106 mg/dL High GLU 154 Result Comment: Fasting Glucose result greater than or equal to 126 mg/dL suggests DIABETES MELLITUS per A.D.A. criteria. Please note revised GLUCOSE reference range effective 2017. LAB L501.1000 7-18 mg/dL High BUN 27 LAB L501.1100 0.55-1.02 mg/dL Normal CREAT,SERUM 0.55 Result Comment: The validity of the calculated GFR AND GFRAA in patients over 70 years has not been determined. Clinical correlation is essential. LAB L501.1110 >60 mL/min Normal EST GFR 125 Result Comment: Non- GFR Calc LAB L501.1115 >60 mL/min Normal EST GFR - AA 151 Result Comment: GFR Calc LAB L501.1300 10-20 RATIO High BUN/CRE 48.9 LAB L501.1500 6.4-8.2 g/dL T Normal PROT 7.4 LAB L501.1800 3.2-5.0 g/dL Normal ALB 3.3 LAB L501.1950 2.2-4.2 g/dL Normal GLOB 4.1 LAB L501.2000 0.9-2.4 RATIO Low A/G 0.8 LAB L501.2200 8.5-10.1 mg/dL CA Normal 8.8 LAB L501.4100 15-37 U/L Normal AST 17 LAB L501.4305 45-117 U/L Normal ALK P 73 LAB L501.4405 13-56 U/L Normal ALT 33 Result Comment: Please note revised ALT reference range effective 2017. LAB L501.4600 0.20-1.00 mg/dL Normal T BILI 0.40 LAB L501.5300 136-145 mmol/L Normal NA 141 LAB L501.5600 3.5-5.1 mmol/L Normal K 4.0 LAB L501.5900 98-107 mmol/L Normal CL 105 LAB L501.6100 21.0-32.0 mmol/L Normal CO2 31.0 LAB L501.6200 5-15 Normal GAP 5 Performed By: #### L500.4050, L501.5200 #### [facility] [address] [place], [place], [address] MAGNESIUM Collected: 07/12/2017 Status: F Source: [place] 9:08 AM [facility] [place] REPOSITORY TYPE CODE TESTS RESULT OUT OF RANGE REFERENCE UNITS LAB L501.5200 1.6-2.6 mg/dL Normal MG 1.7 Result Comment: Please note revised Magnesium reference range effective 2017. Performed By: #### L500.4050, L501.5200 #### [facility] [address] [place], [place], [address] HOSP Observed: 07/12/2017 Status: COMPLETED Source: [place] 12:00 AM [facility] REPOSITORY Patient Update (DANYEL) PEDRO LUIS WILCOX ([id number]) 1970 F Date Time Provider Department 07/12/17 EMRE MCDONOUGH) DNAYEL During your visit today, we recorded the following information about you: Emre Mcdonough RN 07/13/2017 3:29 PM Signed IRB# [id number]. ?Randomized on: 01/28/2017. ?ARM: Blinded. Reporting Period: 06/21/17 - 07/12/17: ?? Patient is here?for Cycle #8. ?Physical exam, toxicities, labs, and medications reviewed with Arabella Donovan MD. Patient meets protocol requirements for treatment. Patient will continue with Cycle #8 on ABT-888/Placebo monotherapy. ?? ECOG Score: 0- Fully active, able to carry on all pre-disease performance w/o restriction.? ?? Toxicities: CTCAE V. 4 ?? Nausea, Denies Fatigue, Denies Neuropathy in fingers, denies. And, no change in lower extremities that is chronic for patient. Arthralgia, denies. ? ?? Denies other C/O's. States she feels good. ?? Labs earlier today drawn at [facility]: CBC Hgb 11.1, grade 1, definitely related Mg, WNL Glucose, 154, non-fasting. Does not meet reporting requirements ?? Menopausal Status: Post Contraception: Hysterectomy LMP: na ?? Research Labs: (Time/Type/Sent to): ?None? QOL / Questionnaires: N/A? ?? The patient returned study medication diary and 2 bottles of ?Veliparib vs Placebo with 0?and 35 capsules remaining. Patient is compliant with study medication self administration. ? ? [place] order-- The patient was given a new study medication diary and the current?bottles?of Veliparib vs Placebo with 35?capsules remaining. Unable to give a new bottle with 64 capsules as pharmacist not available at end of patient's appointment. 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 Per pill count, patient has just enough until Tuesday (07/18/17). Instructed to return the diary and medication bottle with any remaining medication at next study visit. Use of the study medication diary and dosing instructions were reviewed with the patient. The patient aware to start study pills tomorrow as the start of Cycle #8 as it is late in the day and unable to get in 2 doses. Patient agreeable with plan. ?? Reviewed timeline going forward. Patient to return in 3 weeks with labs prior at [facility] for Cycle #9. Patient agreeable with this plan. She has contact numbers if she needs anything in the interim. Emre Mcdonough RN Allergies As of Date: 07/12/2017 (No Known Allergies) Date Reviewed: 07/12/2017 Reviewed by: Veronica Harris - Fully Assessed Reason for Visit: Clinical Trial Nurse Note [Other] Cmt: S1416 Prescriptions as of 07/12/2017 Sig: GABAPENTIN 300 MG CAPSULE Take 300 mg by mouth three ti* TIMOLOL 0.5 % EYE DROPS Use 1 Drop in both eyes once * DICYCLOMINE 20 MG TABLET Take 20 mg by mouth every 8 h* METOCLOPRAMIDE 10 MG TABLET Take 1 tablet by mouth every * LORAZEPAM 1 MG TABLET Take 1 tablet by mouth every * LIDOCAINE-PRILOCAINE 2.5 %-2.* Apply 1 application to affect* CITALOPRAM 20 MG TABLET Take 1 tablet by mouth once d* CLONAZEPAM 0.5 MG TABLET 1 tablet twice daily. PRN NITROFURANTOIN MONOHYDRATE AND * Take 100 mg by mouth twice da* EMPAGLIFLOZIN 10 MG TABLET Take 10 mg by mouth once gamaliel* VITAMIN B COMPLEX CAPSULE Take 1 capsule by mouth twice* CREON ORAL Take 6,000 Units by mouth. Wi* VALACYCLOVIR 500 MG TABLET Take 500 mg by mouth as neede* ERGOCALCIFEROL (VITAMIN D2) 5* Take 50,000 Units by mouth on* * INSULIN GLARGINE (U-100) 100 * Take 50 in am and 70 units in* * HUMALOG KWIKPEN (U-100) INSUL* 15 in am, 15 noon, 20 in philip Problem List As Of Date 07/12/2017 Noted Resolved THYROID NODULE [E04.1] INVALID FOR* More... Anxiety State, Unspecified [F41.1] 01/22/2009 Depressive Disorder, not Elsewhere Classified [* Priority: Moderate More... DM w/o complication type II, uncontrolled [E11.*INVALID FOR* Priority: Severe More... Other Malaise and Fatigue [R53.81, R53.83] INVALID FOR*01/22/2009 More... HYPERLIPIDEMIA NEC/NOS [E78.5] INVALID FOR* FIBROMYALGIA [PXA7956] INVALID FOR* Priority: Moderate OVERWEIGHT [E66.9] INVALID FOR* OTHER HAMMER TOE [M20.40] INVALID FOR* More... URIN TRACT INFECTION RECURRENT [N39.0] INVALID FOR*01/21/2016 More... GENITAL HERPES NOS [A60.00] INVALID FOR* Tobacco Use Disorder [F17.200] INVALID FOR* Priority: Moderate More... CONGENITAL PES PLANUS [Q66.50] INVALID FOR* Displacement of Lumbar Intervertebral Disc with*INVALID FOR* Priority: Moderate More... More... Routine Gynecological Examination [Z01.419] INVALID FOR* Class: Chronic More... 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*INVALID FOR* Malignant neoplasm metastatic to left lung (HCC*INVALID FOR* Examination of participant in clinical trial [Z*INVALID FOR* Visit Notes: >> Emre (Rn) Ceasar TueJul 13, 2017 3:21 PM Status: Signed IRB# [id number]. ?Randomized on: 01/28/2017. ?ARM: Blinded. Reporting Period: 06/21/17 - 07/12/17: ?? Patient is here?for Cycle #8. ?Physical exam, toxicities, labs, and medications reviewed with Arabella Donovan MD. Patient meets protocol requirements for treatment. Patient will continue with Cycle #8 on ABT-888/Placebo monotherapy. ?? ECOG Score: 0- Fully active, able to carry on all pre-disease performance w/o restriction.? ?? Toxicities: CTCAE V. 4 ?? Nausea, Denies Fatigue, Denies Neuropathy in fingers, denies. And, no change in lower extremities that is chronic for patient. Arthralgia, denies. ? ?? Denies other C/O's. States she feels good. ?? Labs earlier today drawn at [facility]: CBC Hgb 11.1, grade 1, definitely related Mg, WNL Glucose, 154, non-fasting. Does not meet reporting requirements ?? Menopausal Status: Post Contraception: Hysterectomy LMP: na ?? Research Labs: (Time/Type/Sent to): ?None? QOL / Questionnaires: N/A? ?? The patient returned study medication diary and 2 bottles of ?Veliparib vs Placebo with 0?and 35 capsules remaining. Patient is compliant with study medication self administration. ? ? [place] order-- The patient was given a new study medication diary and the current?bottles?of Veliparib vs Placebo with 35?capsules remaining. Unable to give a new bottle with 64 capsules as pharmacist not available at end of patient's appointment. 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 Per pill count, patient has just enough until Tuesday (07/18/17). Instructed to return the diary and medication bottle with any remaining medication at next study visit. Use of the study medication diary and dosing instructions were reviewed with the patient. The patient aware to start study pills tomorrow as the start of Cycle #8 as it is late in the day and unable to get in 2 doses. Patient agreeable with plan. ?? Reviewed timeline going forward. Patient to return in 3 weeks with labs prior at [facility] for Cycle #9. Patient agreeable with this plan. She has contact numbers if she needs anything in the interim. Emre Mcdonough RN Medications Discontinued During This Encounter INV ABT-888 OR PLACEBO (INV S1416/17* 07/12/2017 07/13/2017 Route: ORAL Sig: Disc: Auto DC at discharge. Encounter Status:Closed by EMRE MCDONOUGH on 07/13/17 PROGRESS Observed: 06/21/2017 Status: COMPLETED Source: [place] 12:34 PM [facility] [place] REPOSITORY O ID: [id number] Author: Clifford Barakat Service: (none) Author Type: Physician Type: Progress Notes Filed: 06/21/2017 12:38 PM Note Text: Diagnosis: 1) Breast cancer. 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 Her mother has a h/o breast cancer, so patient had been undergoing annual mammogram. The patient underwent a screening mammogram on 08/30/2013. A 1.6 cm nodular density was appreciated in the tail of the right breast. She underwent targeted ultrasound the same day. That study revealed a 9 mm hypoechoic solid nodule at the 10:00 position of the breast measuring 6 cm from the nipple. Stereotactic core needle biopsy on 09/13/2013. The tissue revealed invasive poorly differentiated ductal carcinoma. The specimen was negative for both estrogen and progesterone receptors. Both were quantified at 0%. HER-2 was 2+ an immunostain and nonamplified by FISH testing. The patient underwent an MRI of the breast on 09/20/2013. The study revealed that the left breast had no suspicious findings. In the right breast there was a 1.6 cm abnormal enhancing mass in the superior outer aspect of the right breast approximately 10 cm from the nipple. This correlated to the biopsy area. Underwent partial mastectomy with SLN biopsy 10/05/2013. The final pathology revealed an invasive poorly differentiated ductal carcinoma measuring 1.3 cm in size. There was a single focus. DCIS was present measuring 2 mm in maximum dimension. The grade of the cancer was 3. Margins were negative. The closest was 6 mm. Lymphovascular invasion was not identified. One sentinel lymph node was retrieved. It was negative. Received two cycles of TC. Admitted for severe PAGE. Admitted 12/17/2013 due to increase in thigh pain and dyspnea. Markedly elevated CK. No increase in serum Cr. Chemotherapy stopped after cycle #2. Was seen by ornamental plasterer helper at . 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 Completed radiation 03/26/2014. She started developing intermittent shortness of breath with exertion. She also has a cough that is a dry cough. She was taken off her PAM inhibitor but the cough has not changed. She had a PA and lateral chest film done on 10/22/2016 that demonstrated no abnormality. She then underwent a CT scan the chest without IV contrast on 11/06/2016. Two nodules were observed in the pulmonary parenchyma. One was located in the right lower lobe and the second was located in the lingular lobe. Each measured 8 mm and were thought to be consistent with metastatic disease. CT of the abdomen and pelvis on 11/20/2016 as well as repeat CT chest with IV contrast demonstrated a thick walled gallbladder suspicious for cystitis, chronic and redemonstration of the lung nodules. No concern for metastatic disease in the abdomen or pelvis. Brain MRI on 11/23/2016 was normal. PET scan demonstrated multiple foci of increased glucose concentration manifested in the right axilla, significant region generating a standard uptake value of 7.6. The maximal axial diameter the largest individual hypermetabolic soft tissue density on review of the CT of the thorax was approximately 23.1 mm in transverse dimension. An ultrasound of the right axilla and subclavicular region on 12/02/2016 demonstrated that within the right axilla there was a cluster of abnormal appearing hypoechoic nodules. The largest measured 2.3 x 1.50 1.4 cm. In the subclavicular region there was also evidence of several hypoechoic nodules the largest measuring 2.75 x 2.85 1.5 cm. She then underwent a right axillary core needle biopsy on 12/07/2016. The pathology demonstrated a poorly differentiated metastatic carcinoma. The specimen was negative for both ER and KS as well as HER- 2. I discussed the case with the pathologist today who told me that histologically/morphologically the specimen was consistent with her previous specimen of breast cancer. The pathologist will issue an addendum quantifying ER and KS 0 as well as HER-2 at 0. She had a stress test and echocardiogram about 3 years ago and had no evidence of coronary artery disease. She had LV concentric hypertrophy with preserved ejection fraction. She underwent port placement along with right axillary lymph node dissection on 12/24/2016. MICROSCOPIC DIAGNOSIS Right axillary lymph nodes, regional lymph adenectomy: One out of seven lymph nodes with metastatic poorly differentiated carcinoma. See comment. COMMENT Immunohistochemistry ([id number]) does not rule out a breast primary. There is focal perinodal extension of tumor. Clinical correlation is suggested. ANTIBODY / CLONE RESULT Block 1 Mammaglobin (31A5) negative GATA3 (L50-823) positive, rare, dim CK8 (61kxilM70) positive Ki-67 (30-9) positive, moderate to high ER (6F11) negative 0% KS (1E2) negative 0% CK19 (A53-B/A2.26) positive Cyclin D1/BCL-1 (SP4) positive CEA (11-7/TF-3HB-1) negative SHELLI (E29) positive CK20 (KS20.8) negative Villin (CWWB1) negative RCC (PN-15) negative CA125 (OC125) positive Current therapy: 1) Cisplatin (+/- PARP inhibitor on trial). Presents for ongoing oncologic management. Interim history: She said she is feeling well she offers no complaints today. She's had no further nausea. Appetite is normal. Bowels are working regularly. She doesn't have any shortness of breath at rest or with exertion. No cough or chest pain. Stable neuropathy of the feet and distal lower extremities. PMH, medications and allergies as below personally reviewed by me today. Any changes documented in appropriate section. ROS: Constitutional: Denies episodes of fever and night sweats. Normal appetite. Neuro: Denies DOZIER, vertigo, dizziness and imbalance. HEENT: No recent change in voice, vision or hearing. Resp: See above. CVS: Denies exertional chest pain, PND, orthopnea and LE edema. GI: Denies dysgeusia. Denies symptoms of stomatitis. Denies dysphagia and odynophagia. Denies reflux, n/v, change in bowel habits and abdominal pain. : Denies dysuria or gross hematuria. No symptoms of bladder outlet obstruction. Endo: Denies hot flashes. Denies polyuria and polydipsia. Denies heat and cold intolerance. Musculoskeletal: Denies bone, back, joint and muscular pain. Derm: Denies rash. Denies jaundice and diffuse pruritis. Heme: Denies unusual bleeding and unexplained bruising. Psych: Normal mood. PHYSICAL EXAM: Vitals: Blood pressure 145/67, pulse 104, temperature 36.8 ?C (98.2 ?F), weight 89.4 kg (197 lb). Well-appearing and in no acute distress. EYES: Sclerae are anicteric bilaterally. ENT: Oral mucosa is unremarkable. There is no sign of thrush or mucositis. NECK: Supple. LYMPHATIC: There is no palpable cervical, supraclavicular or inguinal adenopathy. No left axillary adenopathy. No adenopathy appreciated in right axilla. RESPIRATORY: Inspiratory breath sounds are of normal intensity in all norris. No rales, wheezes or rhonchi. CARDIOVASCULAR: Rhythm is regular. Normal intensity S1/S2. There is no gallop or murmur. ABDOMEN: The abdomen is nondistended. No organomegaly. No tenderness. Extremities: No swelling or edema. SKIN: No jaundice or rash. No petechiae. NEUROLOGIC: station attendant II-XII are grossly intact. No focal motor weakness. MUSCULOSKELETAL: No muscle wasting. No tenderness over the greater trochanters bilaterally. 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 Comprehensive BRCA 1 and 2 testing (scanned 12/05/2013) no mutation Complicated by myositis during adjuvant chemotherapy. -KPS is 90%. -Biopsy-proven local regional recurrence. 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 -I personally reviewed CT images and independently verified the radiologist's findings. Stable 4 mm metastatic deposit in the lingular lobe. Resolution of right middle lobe nodule. Clearance of right middle lobe infiltrative changes. -Bone scan ROSINA. -Discussed plan the patient will continue velaparib versus placebo. Plan: -OV in 3 weeks. -CTs in 9 weeks. Clifford Barakat DO CNOVSP Observed: 06/21/2017 Status: COMPLETED Source: [place] 11:30 AM [facility] REPOSITORY Visit (SP) Office (DANYEL) PEDRO LUIS WILCOX ([id number]) 1970 F Date Time Provider Department 06/21/17 11:30 AM CLIFFORD BARAKAT During your visit today, we recorded the following information about you: Temperature Pulse Blood pressure Weight 98.2 degrees 104/minute 145/67 89.4 kg Orlando Langston LPN, LPN 06/21/2017 11:57 AM Signed Est pt, discuss recent labs, study pt. TIFFANIE Mann DO 06/21/2017 12:38 PM Signed Diagnosis: 1) Breast cancer. 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 Her mother has a h/o breast cancer, so patient had been undergoing annual mammogram. The patient underwent a screening mammogram on 08/30/2013. A 1.6 cm nodular density was appreciated in the tail of the right breast. She underwent targeted ultrasound the same day. That study revealed a 9 mm hypoechoic solid nodule at the 10:00 position of the breast measuring 6 cm from the nipple. Stereotactic core needle biopsy on 09/13/2013. The tissue revealed invasive poorly differentiated ductal carcinoma. The specimen was negative for both estrogen and progesterone receptors. Both were quantified at 0%. HER-2 was 2+ an immunostain and nonamplified by FISH testing. The patient underwent an MRI of the breast on 09/20/2013. The study revealed that the left breast had no suspicious findings. In the right breast there was a 1.6 cm abnormal enhancing mass in the superior outer aspect of the right breast approximately 10 cm from the nipple. This correlated to the biopsy area. Underwent partial mastectomy with SLN biopsy 10/05/2013. The final pathology revealed an invasive poorly differentiated ductal carcinoma measuring 1.3 cm in size. There was a single focus. DCIS was present measuring 2 mm in maximum dimension. The grade of the cancer was 3. Margins were negative. The closest was 6 mm. Lymphovascular invasion was not identified. One sentinel lymph node was retrieved. It was negative. Received two cycles of TC. Admitted for severe PAGE. Admitted 12/17/2013 due to increase in thigh pain and dyspnea. Markedly elevated CK. No increase in serum Cr. Chemotherapy stopped after cycle #2. Was seen by ornamental plasterer helper at . 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 Completed radiation 03/26/2014. She started developing intermittent shortness of breath with exertion. She also has a cough that is a dry cough. She was taken off her PAM inhibitor but the cough has not changed. She had a PA and lateral chest film done on 10/22/2016 that demonstrated no abnormality. She then underwent a CT scan the chest without IV contrast on 11/06/2016. Two nodules were observed in the pulmonary parenchyma. One was located in the right lower lobe and the second was located in the lingular lobe. Each measured 8 mm and were thought to be consistent with metastatic disease. CT of the abdomen and pelvis on 11/20/2016 as well as repeat CT chest with IV contrast demonstrated a thick walled gallbladder suspicious for cystitis, chronic and redemonstration of the lung nodules. No concern for metastatic disease in the abdomen or pelvis. Brain MRI on 11/23/2016 was normal. PET scan demonstrated multiple foci of increased glucose concentration manifested in the right axilla, significant region generating a standard uptake value of 7.6. The maximal axial diameter the largest individual hypermetabolic soft tissue density on review of the CT of the thorax was approximately 23.1 mm in transverse dimension. An ultrasound of the right axilla and subclavicular region on 12/02/2016 demonstrated that within the right axilla there was a cluster of abnormal appearing hypoechoic nodules. The largest measured 2.3 x 1.50 1.4 cm. In the subclavicular region there was also evidence of several hypoechoic nodules the largest measuring 2.75 x 2.85 1.5 cm. She then underwent a right axillary core needle biopsy on 12/07/2016. The pathology demonstrated a poorly differentiated metastatic carcinoma. The specimen was negative for both ER and KS as well as HER-2. I discussed the case with the pathologist today who told me that histologically/morphologically the specimen was consistent with her previous specimen of breast cancer. The pathologist will issue an addendum quantifying ER and KS 0 as well as HER-2 at 0. She had a stress test and echocardiogram about 3 years ago and had no evidence of coronary artery disease. She had LV concentric hypertrophy with preserved ejection fraction. She underwent port placement along with right axillary lymph node dissection on 12/24/2016. MICROSCOPIC DIAGNOSIS Right axillary lymph nodes, regional lymph adenectomy: One out of seven lymph nodes with metastatic poorly differentiated carcinoma. See comment. COMMENT Immunohistochemistry ([id number]) does not rule out a breast primary. There is focal perinodal extension of tumor. Clinical correlation is suggested. ANTIBODY / CLONE RESULT Block 1 Mammaglobin (31A5) negative GATA3 (L50-823) positive, rare, dim CK8 (26ghmgM75) positive Ki-67 (30-9) positive, moderate to high ER (6F11) negative 0% KS (1E2) negative 0% CK19 (A53-B/A2.26) positive Cyclin D1/BCL-1 (SP4) positive CEA (11-7/TF-3HB-1) negative SHELLI (E29) positive CK20 (KS20.8) negative Villin (CWWB1) negative RCC (PN-15) negative CA125 (OC125) positive Current therapy: 1) Cisplatin (+/- PARP inhibitor on trial). Presents for ongoing oncologic management. Interim history: She said she is feeling well she offers no complaints today. She's had no further nausea. Appetite is normal. Bowels are working regularly. She doesn't have any shortness of breath at rest or with exertion. No cough or chest pain. Stable neuropathy of the feet and distal lower extremities. PMH, medications and allergies as below personally reviewed by me today. Any changes documented in appropriate section. ROS: Constitutional: Denies episodes of fever and night sweats. Normal appetite. Neuro: Denies DOZIER, vertigo, dizziness and imbalance. HEENT: No recent change in voice, vision or hearing. Resp: See above. CVS: Denies exertional chest pain, PND, orthopnea and LE edema. GI: Denies dysgeusia. Denies symptoms of stomatitis. Denies dysphagia and odynophagia. Denies reflux, n/v, change in bowel habits and abdominal pain. : Denies dysuria or gross hematuria. No symptoms of bladder outlet obstruction. Endo: Denies hot flashes. Denies polyuria and polydipsia. Denies heat and cold intolerance. Musculoskeletal: Denies bone, back, joint and muscular pain. Derm: Denies rash. Denies jaundice and diffuse pruritis. Heme: Denies unusual bleeding and unexplained bruising. Psych: Normal mood. PHYSICAL EXAM: Vitals: Blood pressure 145/67, pulse 104, temperature 36.8 ?C (98.2 ?F), weight 89.4 kg (197 lb). Well-appearing and in no acute distress. EYES: Sclerae are anicteric bilaterally. ENT: Oral mucosa is unremarkable. There is no sign of thrush or mucositis. NECK: Supple. LYMPHATIC: There is no palpable cervical, supraclavicular or inguinal adenopathy. No left axillary adenopathy. No adenopathy appreciated in right axilla. RESPIRATORY: Inspiratory breath sounds are of normal intensity in all norris. No rales, wheezes or rhonchi. CARDIOVASCULAR: Rhythm is regular. Normal intensity S1/S2. There is no gallop or murmur. ABDOMEN: The abdomen is nondistended. No organomegaly. No tenderness. Extremities: No swelling or edema. SKIN: No jaundice or rash. No petechiae. NEUROLOGIC: station attendant II-XII are grossly intact. No focal motor weakness. MUSCULOSKELETAL: No muscle wasting. No tenderness over the greater trochanters bilaterally. 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 Comprehensive BRCA 1 and 2 testing (scanned 12/05/2013) no mutation Complicated by myositis during adjuvant chemotherapy. -KPS is 90%. -Biopsy-proven local regional recurrence. 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 -I personally reviewed CT images and independently verified the radiologist's findings. Stable 4 mm metastatic deposit in the lingular lobe. Resolution of right middle lobe nodule. Clearance of right middle lobe infiltrative changes. -Bone scan ROSINA. -Discussed plan the patient will continue velaparib versus placebo. Plan: -OV in 3 weeks. -CTs in 9 weeks. Clifford Barakat DO Referring Provider: CLIFFORD BARAKAT [[id number]] Allergies As of Date: 06/21/2017 (No Known Allergies) Date Reviewed: 06/21/2017 Reviewed by: Clifford Barakat - Fully Assessed Reason for Visit: Established Patient [175] Primary Visit Diagnosis:Malignant neoplasm of upper-outer quadrant of right breast in female, estrogen receptor negative (HCC) [C50.411, Z17.1] Other Visit Diagnoses:Malignant neoplasm metastatic to left lung (HCC) [C78.02] Examination of participant in clinical trial [Z00.6] Order(s):[facility] NURSING COMMUNICATION [[id number]] Order #: [id number]: 1 STANDING [facility] NURSING COMMUNICATION [[id number]] Order #: [id number]: 1 STANDING HEMONC NURSING COMMUNICATION [[id number]] Order #: [id number]: 1 STANDING HEMONC NURSING COMMUNICATION [[id number]] Order #: [id number]: 1 STANDING HEMONC NURSING COMMUNICATION [[id number]] Order #: [id number]: 1 STANDING HEMONC COMMUNICATION ORDER [[id number]] Order #: [id number]: 1 Follow-up and Disposition History Recorded Prescriptions as of 06/21/2017 Sig: METOCLOPRAMIDE 10 MG TABLET Take 1 tablet by mouth every * LORAZEPAM 1 MG TABLET Take 1 tablet by mouth every * LIDOCAINE-PRILOCAINE 2.5 %-2.* Apply 1 application to affect* CITALOPRAM 20 MG TABLET Take 1 tablet by mouth once d* CLONAZEPAM 0.5 MG TABLET 1 tablet twice daily. PRN NITROFURANTOIN MONOHYDRATE AND * Take 100 mg by mouth twice da* EMPAGLIFLOZIN 10 MG TABLET Take 10 mg by mouth once gamaliel* VITAMIN B COMPLEX CAPSULE Take 1 capsule by mouth twice* CREON ORAL Take 6,000 Units by mouth. Wi* OMEPRAZOLE 40 MG CAPSULE,PRO* Take 1 capsule by mouth twice* VALACYCLOVIR 500 MG TABLET Take 500 mg by mouth as neede* ERGOCALCIFEROL (VITAMIN D2) 5* Take 50,000 Units by mouth on* * INSULIN GLARGINE (U-100) 100 * Take 50 in am and 70 units in* * HUMALOG KWIKPEN (U-100) INSUL* 15 in am, 15 noon, 20 in philip LORAZEPAM 0.5 MG TABLET 1 tablet twice daily. Prn MOMETASONE-FORMOTEROL HFA 200* Inhale 2 Puffs as instructed * MOBIC ORAL Take 10 mg by mouth once gamaliel* CELEBREX ORAL Take 1 capsule by mouth twice* * BUPROPION HCL SR 150 MG TABLE* Take 1 tablet by mouth twice * Medication notes this encounter MOBIC ORAL >> Orlando Langston LPN, LPN 06/21/2017 11:23 AM >> ORLANDO LANGSTON Jun 21, 2017 11:23 AM No longer has rx Problem List As Of Date 06/21/2017 Noted Resolved THYROID NODULE [E04.1] INVALID FOR* More... Anxiety State, Unspecified [F41.1] 01/22/2009 Depressive Disorder, not Elsewhere Classified [* Priority: Moderate More... DM w/o complication type II, uncontrolled [E11.*INVALID FOR* Priority: Severe More... Other Malaise and Fatigue [R53.81, R53.83] INVALID FOR*01/22/2009 More... HYPERLIPIDEMIA NEC/NOS [E78.5] INVALID FOR* FIBROMYALGIA [GRB4403] INVALID FOR* Priority: Moderate OVERWEIGHT [E66.9] INVALID FOR* OTHER HAMMER TOE [M20.40] INVALID FOR* More... URIN TRACT INFECTION RECURRENT [N39.0] INVALID FOR*01/21/2016 More... GENITAL HERPES NOS [A60.00] INVALID FOR* Tobacco Use Disorder [F17.200] INVALID FOR* Priority: Moderate More... CONGENITAL PES PLANUS [Q66.50] INVALID FOR* Displacement of Lumbar Intervertebral Disc with*INVALID FOR* Priority: Moderate More... More... Routine Gynecological Examination [Z01.419] INVALID FOR* Class: Chronic More... 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*INVALID FOR* Malignant neoplasm metastatic to left lung (HCC*INVALID FOR* Examination of participant in clinical trial [Z*INVALID FOR* Visit Notes: >> TIFFANIE Mann Lpn Jun 21, 2017 11:24 AM Status: Signed Est pt, discuss recent labs, study pt. Orlando Langston LPN Encounter Status:Closed by CLIFFORD BARAKAT DO on 06/21/17 CBC W/DIFF, AUTOMATED Collected: 06/21/2017 Status: F Source: [place] 9:16 AM [facility] [place] REPOSITORY TYPE CODE TESTS RESULT OUT OF RANGE REFERENCE UNITS LAB L100.1000 4.4-11.0 K/mm3 Normal WBC 5.2 LAB L100.1200 4.2-5.4 M/mm3 Low RBC 3.57 LAB L100.1300 12.0-15.0 g/dl Low HGB 11.3 LAB L100.1400 37-47 % Low HCT 33.6 LAB L100.1500 81-99 fL Normal MCV 94.1 LAB L100.1600 27.0-32.0 pg Normal MCH 31.7 LAB L100.1700 32-36 g/gl Normal MCHC 33.6 LAB L100.1810 11.6-14.6 % Normal RDW CV 11.7 LAB L100.1820 35.1-43.9 fl Normal RDW SD 39.1 LAB L100.1900 150-450 K/mm3 Normal PLT 295 LAB L100.2000 6.2-12.0 fl Normal MPV 9.4 LAB L100.2100 47-70 % Normal NEUT% 58.5 LAB L100.2200 19-41 % Normal LY% 33.9 LAB L100.2300 0-10 % Normal MONO% 6.0 LAB L100.2400 0-5 % Normal EO% 1.2 LAB L100.2500 0-1 % Normal BASO% 0.2 LAB L100.2550 0.0-0.9 % Normal IM GRAN % 0.200 Result Comment: IG% - Immature Granulocytes (promyelocytes, myelocytes and metamyelocytes) > 1% indicates that a LEFT SHIFT is Present. LAB L100.2620 2.0-7.7 X10 3/uL Normal Absolute Neut 3.0 LAB L100.2720 0.83-4.51 X10 3/ul Normal Absolute Lymph 1.76 Performed By: #### L100.0100 #### [facility] [address] [place] [address]. [place], [address] COMPREHENSIVE METABOLIC Collected: 06/21/2017 Status: F Source: [facility] 9:16 AM [facility] [place] REPOSITORY TYPE CODE TESTS RESULT OUT OF RANGE REFERENCE UNITS LAB L501.0100 74-106 mg/dL High GLU 148 Result Comment: Fasting Glucose result greater than or equal to 126 mg/dL suggests DIABETES MELLITUS per A.D.A. criteria. Please note revised GLUCOSE reference range effective 2017. LAB L501.1000 7-18 mg/dL High BUN 26 LAB L501.1100 0.55-1.02 mg/dL Normal CREAT,SERUM 0.63 Result Comment: The validity of the calculated GFR AND GFRAA in patients over 70 years has not been determined. Clinical correlation is essential. LAB L501.1110 >60 mL/min Normal EST GFR 106 Result Comment: Non- GFR Calc LAB L501.1115 >60 mL/min Normal EST GFR - AA 129 Result Comment: GFR Calc LAB L501.1300 10-20 RATIO High BUN/CRE 41.0 LAB L501.1500 6.4-8.2 g/dL T Normal PROT 7.6 LAB L501.1800 3.2-5.0 g/dL Normal ALB 3.3 LAB L501.1950 2.2-4.2 g/dL High GLOB 4.3 LAB L501.2000 0.9-2.4 RATIO Low A/G 0.8 LAB L501.2200 8.5-10.1 mg/dL CA Normal 8.9 LAB L501.4100 15-37 U/L Low AST 12 LAB L501.4305 45-117 U/L Normal ALK P 81 LAB L501.4405 13-56 U/L Normal ALT 16 Result Comment: Please note revised ALT reference range effective 2017. LAB L501.4600 0.20-1.00 mg/dL Low T BILI 0.10 LAB L501.5300 136-145 mmol/L Normal NA 139 LAB L501.5600 3.5-5.1 mmol/L Normal K 3.8 LAB L501.5900 98-107 mmol/L Normal CL 101 LAB L501.6100 21.0-32.0 mmol/L Normal CO2 32.0 LAB L501.6200 5-15 Normal GAP 6 Performed By: #### L500.4050, L501.5200 #### [facility] [address] [place], [place], [address] MAGNESIUM Collected: 06/21/2017 Status: F Source: [place] 9:16 AM [facility] [place] REPOSITORY TYPE CODE TESTS RESULT OUT OF RANGE REFERENCE UNITS LAB L501.5200 1.6-2.6 mg/dL Normal MG 1.8 Result Comment: Please note revised Magnesium reference range effective 2017. Performed By: #### L500.4050, L501.5200 #### [facility] [address] [place], [address] HIPS B/L MIN 2 Observed: 06/21/2017 Status: F Source: [place] VIEWS W/ PELVIS 8:36 AM [facility] [place] REPOSITORY [facility] Imaging Services [address] [place] [address] Hips B/L min 2 views w/ Pelvis MR#: [id number] Acct: [id number] Name: PEDRO LUIS WILCOX Rep #: [id number] : 1970 F 47 From: Ruperto Sahu MD PCP: Jacinto Person MD Status: REG CLI Study: Hips B/L min 2 views w/ Pelvis Date of Exam: 06/21/17 Exam# [id number] Ordering Dr: Clifford Barakat DO STUDY: X-RAY - PELVIS AND BILATERAL HIPS REASON FOR EXAM: Female, 47 years old. Bilateral hip pain, left greater than right. History of breast cancer. TECHNIQUE: Radiological exam, hip, bilateral, with pelvis when performed; 2 views COMPARISON: Radiographs of the left hip dated August 13, 2016 and of the right hip dated February 10, 2012. FINDINGS: There is a non-specific bowel gas pattern. Normal visualized soft tissue structures. Normal bilateral iliac wings, sacroiliac joints and visualized sacrum. Normal bilateral superior and inferior pubic rami. Normal pubic symphysis. Normal bilateral ischial tuberosities. There is moderate arthrosis of the right hip, relatively unchanged from the prior study. There is osteophyte formation in the acetabulum on the right unchanged. There is moderate arthrosis of the left hip, relatively unchanged from the prior study. There is osteophyte formation of the left acetabulum unchanged. RAD/Hips B/L min 2 views w/ Pelvis IMPRESSION: Relatively stable moderate arthrosis of both hips. No new or acute pathology. Electronically Signed: Ruperto Sahu MD at 17:01 EST , Service support , CC: Jacinto Person MD; Clifford Barakat DO [employer] Education Teacher: Signed HOSP Observed: 06/21/2017 Status: COMPLETED Source: [place] 12:00 AM [facility] REPOSITORY Patient Update (HEMAWS) PEDRO LUIS WILCOX ([id number]) 1970 F Date Time Provider Department 06/21/17 EMRE MCDONOUGH (RN) DANYEL During your visit today, we recorded the following information about you: Emre Mcdonough RN 06/21/2017 4:37 PM Signed IRB# [id number]. ?Randomized on: 01/28/2017. ?ARM: Blinded. Reporting Period: 06/01/17 - 06/21/17: ?? Patient is here?for Cycle #7. ?Physical exam, toxicities, labs, CT's and medications reviewed with Clifford Barakat, DO Patient meets protocol requirements for treatment. Patient will continue with Cycle #7 on ABT-888/Placebo monotherapy. ?? ECOG Score: 0- Fully active, able to carry on all pre-disease performance w/o restriction.? ?? Toxicities: CTCAE V. 4 ?? Nausea, Denies Fatigue, Denies Neuropathy in fingers, denies. And, no change in lower extremities that is chronic for patient. Arthralgia, denies. ?? Denies other C/O's. States she feels good. ?? Labs earlier today drawn at [facility]: CBC Hgb 11.3, grade 1, definitely related Mg, WNL Glucose, 148, non-fasting. Does not meet reporting requirements ?? Menopausal Status: Post Contraception: Hysterectomy LMP: na ?? Research Labs: (Time/Type/Sent to): ?None? QOL / Questionnaires: N/A? ?? The patient returned study medication diary and 2 bottles of ?Veliparib vs Placebo with 0?and 55 capsules remaining. ?Per diary, patient missed 1 dose per diary and pill count. This was due to patient not having enough pills. See previous note 06/13/17. Patient is not compliant with study medication self administration. ? CT's with continued improvement in measurements of non-measurable disease. Stable disease. (non-CR/non-KS) [place] order-- The patient was given a new study medication diary and the current?bottles?of Veliparib vs Placebo with 55?capsules remaining and an new bottle with 64 capsules as dispensed by the pharmacy. Instructed to return the diary and medication bottle with any remaining medication at next study visit. Use of the study medication diary and dosing instructions were reviewed with the patient. The patient aware to start study pills today as the start of Cycle #7. ? Reviewed timeline going forward. Patient to return in 3 weeks with labs prior at [facility] for Cycle #8. Patient agreeable with this plan. She has contact numbers if she needs anything in the interim. Emre Mcdonough RN Allergies As of Date: 06/21/2017 (No Known Allergies) Date Reviewed: 06/21/2017 Reviewed by: Clifford Barakat - Fully Assessed Reason for Visit: Clinical Trial Nurse Note [Other] Cmt: S1416 Prescriptions as of 06/21/2017 Sig: METOCLOPRAMIDE 10 MG TABLET Take 1 tablet by mouth every * LORAZEPAM 1 MG TABLET Take 1 tablet by mouth every * LIDOCAINE-PRILOCAINE 2.5 %-2.* Apply 1 application to affect* CITALOPRAM 20 MG TABLET Take 1 tablet by mouth once d* CLONAZEPAM 0.5 MG TABLET 1 tablet twice daily. PRN LORAZEPAM 0.5 MG TABLET 1 tablet twice daily. Prn NITROFURANTOIN MONOHYDRATE AND * Take 100 mg by mouth twice da* EMPAGLIFLOZIN 10 MG TABLET Take 10 mg by mouth once gamaliel* VITAMIN B COMPLEX CAPSULE Take 1 capsule by mouth twice* MOMETASONE-FORMOTEROL HFA 200* Inhale 2 Puffs as instructed * CREON ORAL Take 6,000 Units by mouth. Wi* MOBIC ORAL Take 10 mg by mouth once gamaliel* CELEBREX ORAL Take 1 capsule by mouth twice* OMEPRAZOLE 40 MG CAPSULE,PRO* Take 1 capsule by mouth twice* VALACYCLOVIR 500 MG TABLET Take 500 mg by mouth as neede* ERGOCALCIFEROL (VITAMIN D2) 5* Take 50,000 Units by mouth on* * BUPROPION HCL SR 150 MG TABLE* Take 1 tablet by mouth twice * * INSULIN GLARGINE (U-100) 100 * Take 50 in am and 70 units in* * HUMALOG KWIKPEN (U-100) INSUL* 15 in am, 15 noon, 20 in philip Problem List As Of Date 06/21/2017 Noted Resolved THYROID NODULE [E04.1] INVALID FOR* More... Anxiety State, Unspecified [F41.1] 01/22/2009 Depressive Disorder, not Elsewhere Classified [* Priority: Moderate More... DM w/o complication type II, uncontrolled [E11.*INVALID FOR* Priority: Severe More... Other Malaise and Fatigue [R53.81, R53.83] INVALID FOR*01/22/2009 More... HYPERLIPIDEMIA NEC/NOS [E78.5] INVALID FOR* FIBROMYALGIA [LZA4270] INVALID FOR* Priority: Moderate OVERWEIGHT [E66.9] INVALID FOR* OTHER HAMMER TOE [M20.40] INVALID FOR* More... URIN TRACT INFECTION RECURRENT [N39.0] INVALID FOR*01/21/2016 More... GENITAL HERPES NOS [A60.00] INVALID FOR* Tobacco Use Disorder [F17.200] INVALID FOR* Priority: Moderate More... CONGENITAL PES PLANUS [Q66.50] INVALID FOR* Displacement of Lumbar Intervertebral Disc with*INVALID FOR* Priority: Moderate More... More... Routine Gynecological Examination [Z01.419] INVALID FOR* Class: Chronic More... 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*INVALID FOR* Malignant neoplasm metastatic to left lung (HCC*INVALID FOR* Examination of participant in clinical trial [Z*INVALID FOR* Visit Notes: >> Emre (Brittney) Ceasar Espinosa Jun 21, 2017 4:16 PM Status: Signed IRB# [id number]. ?Randomized on: 01/28/2017. ?ARM: Blinded. Reporting Period: 06/01/17 - 06/21/17: ?? Patient is here?for Cycle #7. ?Physical exam, toxicities, labs, CT's and medications reviewed with Clifford Barakat, DO Patient meets protocol requirements for treatment. Patient will continue with Cycle #7 on ABT-888/Placebo monotherapy. ?? ECOG Score: 0- Fully active, able to carry on all pre-disease performance w/o restriction.? ?? Toxicities: CTCAE V. 4 ?? Nausea, Denies Fatigue, Denies Neuropathy in fingers, denies. And, no change in lower extremities that is chronic for patient. Arthralgia, denies. ?? Denies other C/O's. States she feels good. ?? Labs earlier today drawn at [facility]: CBC Hgb 11.3, grade 1, definitely related Mg, WNL Glucose, 148, non-fasting. Does not meet reporting requirements ?? Menopausal Status: Post Contraception: Hysterectomy LMP: na ?? Research Labs: (Time/Type/Sent to): ?None? QOL / Questionnaires: N/A? ?? The patient returned study medication diary and 2 bottles of ?Veliparib vs Placebo with 0?and 55 capsules remaining. ?Per diary, patient missed 1 dose per diary and pill count. This was due to patient not having enough pills. See previous note 06/13/17. Patient is not compliant with study medication self administration. ? CT's with continued improvement in measurements of non-measurable disease. Stable disease. (non-CR/non-KS) [place] order-- The patient was given a new study medication diary and the current?bottles?of Veliparib vs Placebo with 55?capsules remaining and an new bottle with 64 capsules as dispensed by the pharmacy. Instructed to return the diary and medication bottle with any remaining medication at next study visit. Use of the study medication diary and dosing instructions were reviewed with the patient. The patient aware to start study pills today as the start of Cycle #7. ? Reviewed timeline going forward. Patient to return in 3 weeks with labs prior at [facility] for Cycle #8. Patient agreeable with this plan. She has contact numbers if she needs anything in the interim. Emre Mcdonough RN Encounter Status:Closed by EMRE MCDONOUGH on 06/21/17 CHEST WITH CONTRAST Observed: 06/20/2017 Status: F Source: [place] 1:29 PM [facility] REPOSITORY [facility] Imaging Services [address] [place] [address] Chest WITH Contrast MR#: [id number] Acct: [id number] Name: PEDRO LUIS WILCOX Rep #: [id number] : 1970 F 47 From: Darryl oFrd MD PCP: Raza VELAZQUEZ,Jacinto Status: REG CLI Study: Chest WITH Contrast Date of Exam: 06/20/17 Exam# [id number] Ordering Dr: Clifford Barakat DO STUDY: CT CHEST WITH CONTRAST REASON FOR EXAM: Female, 47 years old. Patient has a history of a right breast cancer with lung metastasis. The patient is status post right lumpectomy. RADIATION DOSAGE (If Supplied By Facility): CTDIvol = ( 17.05 ) mGy, DLP = ( 1783.63 ) mGycm TECHNIQUE: Transaxial imaging was performed following intravenous administration of 100CC ml of Isovue 300 contrast material. Multiplanar coronal and sagittal images were reformatted. Individualized dose optimization techniques were used for this CT. COMPARISON: Comparison is made with prior examination dated April 15, 2017. FINDINGS: A left-sided portacatheter is seen. The tip is in the superior vena cava. There is evidence of a diffuse skin thickening of the right breast. Mild degree of increased linear markings are seen in the right middle lobe. This most likely represents post radiation fibrosis. The previously seen infiltration as resolved. There is no demonstrated pleural abnormality. Normal heart and pericardium. Normal mediastinum. Normal hilar regions. Normal enhanced pulmonary arteries. Normal aorta arch and descending thoracic aorta. There are multi-level degenerative changes of the thoracic spine. There is no demonstrated abnormality of the visualized upper abdomen. CT/Chest WITH Contrast IMPRESSION: Skin thickening of the right breast. The previously seen infiltration in the right middle lobe has cleared. Minimal linear densities persist most likely representing scarring. Electronically Signed: Darryl Ford MD at 14:48 EST Tel [phone], Service support , CC: Jacinto Person MD; Clifford Barakat DO Family And Consumer Education Teacher: Signed ABDOMEN/PELVIS WITH Observed: 06/20/2017 Status: F Source: [place] CONTRAST 1:29 PM [facility] REPOSITORY [facility] Imaging Services [address] [place] [address] Abdomen/Pelvis WITH Contrast MR#: [id number] Acct: [id number] Name: PEDRO LUIS WILCOX Rep #: [id number] : 1970 F 47 From: Darryl Ford MD PCP: Jacinto Person MD Status: REG CLI Study: Abdomen/Pelvis WITH Contrast Date of Exam: 06/20/17 Exam# [id number] Ordering Dr: Clifford Barakat DO STUDY: CT ABDOMEN AND PELVIS WITH CONTRAST REASON FOR EXAM: Female, 47 years old. History of metastatic breast cancer. Prior right lumpectomy. RADIATION DOSAGE (If Supplied By Facility): CTDIvol = ( 17.05 ) mGy, DLP = ( 1783.63 ) mGycm TECHNIQUE: Transaxial images were obtained from the dome of the diaphragm to the symphysis pubis with oral contrast. 100CC ml of Isovue 300 contrast was administered. Sagittal and coronal images were reconstructed. Individualized dose optimization techniques were used for this CT. COMPARISON: Comparison is made with prior study dated January 20, 2017. FINDINGS: Diffuse right breast skin thickening. Mild increased linear markings in the anterior aspect of the right middle lobe suggestive of linear scarring. The visualized portions of the heart are within normal limits. Normal liver. Normal gallbladder and extrahepatic biliary system. Normal spleen. Normal pancreas. Normal bilateral adrenal glands. Normal right kidney. Normal left kidney. There is a small hiatal hernia. Normal small intestine. Normal colon. The appendix is visualized and appears normal. There is scattered atherosclerotic calcification of the abdominal aorta, without a demonstrated aneurysm. Normal inferior vena cava. Normal retroperitoneum. Normal urinary bladder. There is absence of the uterus consistent with a prior hysterectomy. Normal abdominal wall. There are degenerative changes of the visualized lumbar spine. Degenerative changes of both hip joints with bilateral acetabular spurs. CT/Abdomen/Pelvis WITH Contrast IMPRESSION: Mild degree of increased linear markings in the right middle lobe suggestive of scarring. 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 Patient states that she has been compliant with study medication except she took last pills last pm and did not have any for this am dose. The patient was given a new bottle?of Veliparib vs Placebo with 64 capsules as dispensed by the pharmacy. See [place] documentation by pharmacy. Patient will restart study medication tonight. Patient denies any issues or concerns at this time. States she feels good. Reminded of appointment times. Emre Mcdonough RN Allergies As of Date: 06/13/2017 (No Known Allergies) Date Reviewed: 06/01/2017 Reviewed by: Federica Pimentel LPN - Fully Assessed Reason for Visit: Clinical Trial Nurse Note [Other] Cmt: S1416 Prescriptions as of 06/13/2017 Sig: METOCLOPRAMIDE 10 MG TABLET Take 1 tablet by mouth every * LORAZEPAM 1 MG TABLET Take 1 tablet by mouth every * LIDOCAINE-PRILOCAINE 2.5 %-2.* Apply 1 application to affect* CITALOPRAM 20 MG TABLET Take 1 tablet by mouth once d* CLONAZEPAM 0.5 MG TABLET 1 tablet twice daily. PRN LORAZEPAM 0.5 MG TABLET 1 tablet twice daily. Prn NITROFURANTOIN MONOHYDRATE AND * Take 100 mg by mouth twice da* EMPAGLIFLOZIN 10 MG TABLET Take 10 mg by mouth once gamaliel* VITAMIN B COMPLEX CAPSULE Take 1 capsule by mouth twice* MOMETASONE-FORMOTEROL HFA 200* Inhale 2 Puffs as instructed * CREON ORAL Take 6,000 Units by mouth. Wi* MOBIC ORAL Take 10 mg by mouth once gamaliel* CELEBREX ORAL Take 1 capsule by mouth twice* OMEPRAZOLE 40 MG CAPSULE,PRO* Take 1 capsule by mouth twice* VALACYCLOVIR 500 MG TABLET Take 500 mg by mouth as neede* ERGOCALCIFEROL (VITAMIN D2) 5* Take 50,000 Units by mouth on* * BUPROPION HCL SR 150 MG TABLE* Take 1 tablet by mouth twice * * INSULIN GLARGINE (U-100) 100 * Take 50 in am and 70 units in* * HUMALOG KWIKPEN (U-100) INSUL* 15 in am, 15 noon, 20 in philip Problem List As Of Date 06/13/2017 Noted Resolved THYROID NODULE [E04.1] INVALID FOR* More... Anxiety State, Unspecified [F41.1] 01/22/2009 Depressive Disorder, not Elsewhere Classified [* Priority: Moderate More... DM w/o complication type II, uncontrolled [E11.*INVALID FOR* Priority: Severe More... Other Malaise and Fatigue [R53.81, R53.83] INVALID FOR*01/22/2009 More... HYPERLIPIDEMIA NEC/NOS [E78.5] INVALID FOR* FIBROMYALGIA [PTC7824] INVALID FOR* Priority: Moderate OVERWEIGHT [E66.9] INVALID FOR* OTHER HAMMER TOE [M20.40] INVALID FOR* More... URIN TRACT INFECTION RECURRENT [N39.0] INVALID FOR*01/21/2016 More... GENITAL HERPES NOS [A60.00] INVALID FOR* Tobacco Use Disorder [F17.200] INVALID FOR* Priority: Moderate More... CONGENITAL PES PLANUS [Q66.50] INVALID FOR* Displacement of Lumbar Intervertebral Disc with*INVALID FOR* Priority: Moderate More... More... Routine Gynecological Examination [Z01.419] INVALID FOR* Class: Chronic More... 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 Patient states that she has been compliant with study medication except she took last pills last pm and did not have any for this am dose. The patient was given a new bottle?of Veliparib vs Placebo with 64 capsules as dispensed by the pharmacy. See [place] documentation by pharmacy. Patient will restart study medication tonight. Patient denies any issues or concerns at this time. States she feels good. Reminded of appointment times. Emre Mcdonough RN Encounter Status:Closed by EMRE MCDONOUGH on 06/13/17 BONE SCAN WHOLE Observed: 06/09/2017 Status: F Source: [place] 9:27 AM [facility] REPOSITORY [facility] Imaging Services [address] [place] [id number] Bone Scan Whole Body MR#: [id number] Acct: [id number] Name: PEDRO LUIS WILCOX Clay Rep #: [id number] : 1970 F 47 From: Clay Real DO PCP: Raza VELAZQUEZ,Jacinto Status: REG CLI Study: Bone Scan Whole Body Date of Exam: 06/09/17 Exam# [id number] Ordering Dr: Clifford Barakat DO CLINICAL: 47-year-old female with reported history of primary breast carcinoma. WHOLE BODY 99m Tc MDP RADIONUCLIDE BONE SCINTIGRAPHY COMPARISON: Previous whole body bone scintigraphy study dated 04/13/2017 FINDINGS: Following the intravenous administration of 25.9 mCi of 99m Tc MDP, whole body bone images reveal: 1. Increased radiopharmaceutical concentration is currently identified in the bilateral hip articulations, the sternoclavicular and acromioclavicular compartments of both shoulders, glenohumeral compartment of the right shoulder, right wrist, ninth thoracic vertebra posteriorly on the left, fourth lumbar vertebra posteriorly on the left, the right knee, right ankle and right forefoot. 2. Enhanced uptake remains apparent in the right anterolateral 10th rib. 3. The remaining skeletal structures are scintigraphically unremarkable with normal-appearing renal images and urinary bladder activity identified. NM/Bone Scan Whole Body IMPRESSION: 1. The increase in radiopharmaceutical concentration identified in the bilateral hip and shoulder articulations, right wrist, thoracic and lumbar spine, right knee, right ankle and right forefoot is most consistent with degenerative arthritis. 2. Facilitated tracer concentration visualized in the right anterolateral 10th rib remains consistent with trauma-fracture. 3. Overall compared to the previous whole body bone scintigraphy study dated 04/13/2017, there is no significant interval change. No current typical scintigraphic evidence of diffuse axial skeletal metastatic disease is defined on the present evaluation. Electronically Signed: Clay Real DO at 10:34 EST Tel , Service support , CC: Jacinto Person MD; Clifford Barakat DO Family And Consumer Education Teacher: Signed PROGRESS Observed: 06/01/2017 Status: COMPLETED Source: [place] 10:35 AM [facility] REPOSITORY HNO ID: [id number] Author: Isha Servin ([place]) Service: (none) Author Type: Ball Rolling Machine Operator Type: Progress Notes Filed: 06/01/2017 10:36 AM Note Text: SOCIAL WORK FOLLOW UP NOTE: [facility] Date of service: June 01, 2017 Pedro Luis Wilcox is being seen for a follow up social work visit. Today's visit includes: patient TOPICS ADDRESSED: Disability; Patient picked up [employer] disability paperwork. Patient denies other needs at this time. PLAN: Assist with financial support applications and Continue follow up as needed F/U APPOINTMENT: PRPriya BalderasIsha Jameson, CROSSING TENDER PROGRESS Observed: 06/01/2017 Status: COMPLETED Source: [place] 9:43 AM [facility] REPOSITORY HNO ID: [id number] Author: Clifford Barakat Service: (none) Author Type: Physician Type: Progress Notes Filed: 06/01/2017 12:42 PM Note Text: Diagnosis: 1) Breast cancer. 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 Her mother has a h/o breast cancer, so patient had been undergoing annual mammogram. The patient underwent a screening mammogram on 08/30/2013. A 1.6 cm nodular density was appreciated in the tail of the right breast. She underwent targeted ultrasound the same day. That study revealed a 9 mm hypoechoic solid nodule at the 10:00 position of the breast measuring 6 cm from the nipple. Stereotactic core needle biopsy on 09/13/2013. The tissue revealed invasive poorly differentiated ductal carcinoma. The specimen was negative for both estrogen and progesterone receptors. Both were quantified at 0%. HER-2 was 2+ an immunostain and nonamplified by FISH testing. The patient underwent an MRI of the breast on 09/20/2013. The study revealed that the left breast had no suspicious findings. In the right breast there was a 1.6 cm abnormal enhancing mass in the superior outer aspect of the right breast approximately 10 cm from the nipple. This correlated to the biopsy area. Underwent partial mastectomy with SLN biopsy 10/05/2013. The final pathology revealed an invasive poorly differentiated ductal carcinoma measuring 1.3 cm in size. There was a single focus. DCIS was present measuring 2 mm in maximum dimension. The grade of the cancer was 3. Margins were negative. The closest was 6 mm. Lymphovascular invasion was not identified. One sentinel lymph node was retrieved. It was negative. Received two cycles of TC. Admitted for severe PAGE. Admitted 12/17/2013 due to increase in thigh pain and dyspnea. Markedly elevated CK. No increase in serum Cr. Chemotherapy stopped after cycle #2. Was seen by ornamental plasterer helper at . 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 Completed radiation 03/26/2014. She started developing intermittent shortness of breath with exertion. She also has a cough that is a dry cough. She was taken off her PAM inhibitor but the cough has not changed. She had a PA and lateral chest film done on 10/22/2016 that demonstrated no abnormality. She then underwent a CT scan the chest without IV contrast on 11/06/2016. Two nodules were observed in the pulmonary parenchyma. One was located in the right lower lobe and the second was located in the lingular lobe. Each measured 8 mm and were thought to be consistent with metastatic disease. CT of the abdomen and pelvis on 11/20/2016 as well as repeat CT chest with IV contrast demonstrated a thick walled gallbladder suspicious for cystitis, chronic and redemonstration of the lung nodules. No concern for metastatic disease in the abdomen or pelvis. Brain MRI on 11/23/2016 was normal. PET scan demonstrated multiple foci of increased glucose concentration manifested in the right axilla, significant region generating a standard uptake value of 7.6. The maximal axial diameter the largest individual hypermetabolic soft tissue density on review of the CT of the thorax was approximately 23.1 mm in transverse dimension. An ultrasound of the right axilla and subclavicular region on 12/02/2016 demonstrated that within the right axilla there was a cluster of abnormal appearing hypoechoic nodules. The largest measured 2.3 x 1.50 1.4 cm. In the subclavicular region there was also evidence of several hypoechoic nodules the largest measuring 2.75 x 2.85 1.5 cm. She then underwent a right axillary core needle biopsy on 12/07/2016. The pathology demonstrated a poorly differentiated metastatic carcinoma. The specimen was negative for both ER and KS as well as HER- 2. I discussed the case with the pathologist today who told me that histologically/morphologically the specimen was consistent with her previous specimen of breast cancer. The pathologist will issue an addendum quantifying ER and KS 0 as well as HER-2 at 0. She had a stress test and echocardiogram about 3 years ago and had no evidence of coronary artery disease. She had LV concentric hypertrophy with preserved ejection fraction. She underwent port placement along with right axillary lymph node dissection on 12/24/2016. MICROSCOPIC DIAGNOSIS Right axillary lymph nodes, regional lymph adenectomy: One out of seven lymph nodes with metastatic poorly differentiated carcinoma. See comment. COMMENT Immunohistochemistry ([id number]) does not rule out a breast primary. There is focal perinodal extension of tumor. Clinical correlation is suggested. ANTIBODY / CLONE RESULT Block 1 Mammaglobin (31A5) negative GATA3 (L50-823) positive, rare, dim CK8 (43edcgN67) positive Ki-67 (30-9) positive, moderate to high ER (6F11) negative 0% KS (1E2) negative 0% CK19 (A53-B/A2.26) positive Cyclin D1/BCL-1 (SP4) positive CEA (11-7/TF-3HB-1) negative SHELLI (E29) positive CK20 (KS20.8) negative Villin (CWWB1) negative RCC (PN-15) negative CA125 (OC125) positive Current therapy: 1) Cisplatin (+/- PARP inhibitor on trial). Presents for ongoing oncologic management. Interim history: She does complain of bilateral hip pain. The pain is located over the greater trochanters bilaterally. She's had this pain in the past but she said it never really affected both sides at one time. Pain is felt mostly when she is walking or adducting the legs. No groin pain. She has some achiness in the right shoulder with some stiffness. She is also been having some shortness of breath with exertion but this is a chronic symptom. She finds oftentimes shows to [employer] around long distances and she ends up using a cart. No chest pain/pressure or tightness when this occurs. No cough, sputum production or wheezing. Her energy levels are doing fairly well. Referral neuropathy symptoms including numbness of both feet is about the same. She did stumble twice in the last few weeks. Nausea resolved. PMH, medications and allergies as below personally reviewed by me today. Any changes documented in appropriate section. ROS: Constitutional: Denies episodes of fever and night sweats. Normal appetite. Neuro: Denies DOZIER, vertigo, dizziness and imbalance. HEENT: No recent change in voice, vision or hearing. Resp: See above. CVS: Denies exertional chest pain, PND, orthopnea and LE edema. GI: Denies dysgeusia. Denies symptoms of stomatitis. Denies dysphagia and odynophagia. Denies reflux, n/v, change in bowel habits and abdominal pain. : Denies dysuria or gross hematuria. No symptoms of bladder outlet obstruction. Endo: Denies hot flashes. Denies polyuria and polydipsia. Denies heat and cold intolerance. Musculoskeletal: Denies bone, back, joint and muscular pain. Derm: Denies rash. Denies jaundice and diffuse pruritis. Heme: Denies unusual bleeding and unexplained bruising. Psych: Normal mood. PHYSICAL EXAM: Vitals: Blood pressure 140/66, pulse 107, temperature 36.6 ?C (97.9 ?F), weight 90.3 kg (199 lb). Well-appearing and in no acute distress. EYES: Sclerae are anicteric bilaterally. ENT: Oral mucosa is unremarkable. There is no sign of thrush or mucositis. NECK: Supple. LYMPHATIC: There is no palpable cervical, supraclavicular or inguinal adenopathy. No left axillary adenopathy. No residual mass or lymphadenopathy appreciated in right axilla. RESPIRATORY: Inspiratory breath sounds are of normal intensity in all norris. No rales, wheezes or rhonchi. CARDIOVASCULAR: Rhythm is regular. Normal intensity S1/S2. There is no gallop or murmur. ABDOMEN: The abdomen is nondistended. No organomegaly. No tenderness. Extremities: No swelling or edema. SKIN: No jaundice or rash. No petechiae. NEUROLOGIC: station attendant II-XII are grossly intact. No focal motor weakness. MUSCULOSKELETAL: No muscle wasting. No tenderness over the greater trochanters bilaterally. 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 Comprehensive BRCA 1 and 2 testing (scanned 12/05/2013) no mutation Complicated by myositis during adjuvant chemotherapy. -KPS is 90%. -Biopsy-proven local regional recurrence. 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 -Bilateral greater trochanteric pain. Most likely bursitis/iliotibial band syndrome. I discussed this with her. Recommended plain film x-rays. If no obvious bony pathology, then referral for physical therapy and may be consideration of steroid injection. Plan: -OV in 3 weeks. -CTs to be scheduled for 05/24. Clifford Barakat DO CNOVSP Observed: 06/01/2017 Status: COMPLETED Source: [place] 9:10 AM [facility] REPOSITORY Visit (SP) Office (DANYEL) PEDRO LUIS WILCOX ([id number]) 1970 F Date Time Provider Department 06/01/17 9:10 AM CLIFFORD BARAKAT During your visit today, we recorded the following information about you: Temperature Pulse Blood pressure Weight 97.9 degrees 107/minute 140/66 90.3 kg Federica Pimentel LPN 06/01/2017 9:11 AM Signed Est patient. 3 week ov. Had labs this am @ [facility]. Labs not yet available. Federica Barakat DO 06/01/2017 12:42 PM Signed Diagnosis: 1) Breast cancer. 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 Her mother has a h/o breast cancer, so patient had been undergoing annual mammogram. The patient underwent a screening mammogram on 08/30/2013. A 1.6 cm nodular density was appreciated in the tail of the right breast. She underwent targeted ultrasound the same day. That study revealed a 9 mm hypoechoic solid nodule at the 10:00 position of the breast measuring 6 cm from the nipple. Stereotactic core needle biopsy on 09/13/2013. The tissue revealed invasive poorly differentiated ductal carcinoma. The specimen was negative for both estrogen and progesterone receptors. Both were quantified at 0%. HER-2 was 2+ an immunostain and nonamplified by FISH testing. The patient underwent an MRI of the breast on 09/20/2013. The study revealed that the left breast had no suspicious findings. In the right breast there was a 1.6 cm abnormal enhancing mass in the superior outer aspect of the right breast approximately 10 cm from the nipple. This correlated to the biopsy area. Underwent partial mastectomy with SLN biopsy 10/05/2013. The final pathology revealed an invasive poorly differentiated ductal carcinoma measuring 1.3 cm in size. There was a single focus. DCIS was present measuring 2 mm in maximum dimension. The grade of the cancer was 3. Margins were negative. The closest was 6 mm. Lymphovascular invasion was not identified. One sentinel lymph node was retrieved. It was negative. Received two cycles of TC. Admitted for severe PAGE. Admitted 12/17/2013 due to increase in thigh pain and dyspnea. Markedly elevated CK. No increase in serum Cr. Chemotherapy stopped after cycle #2. Was seen by ornamental plasterer helper at . 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 Completed radiation 03/26/2014. She started developing intermittent shortness of breath with exertion. She also has a cough that is a dry cough. She was taken off her PAM inhibitor but the cough has not changed. She had a PA and lateral chest film done on 10/22/2016 that demonstrated no abnormality. She then underwent a CT scan the chest without IV contrast on 11/06/2016. Two nodules were observed in the pulmonary parenchyma. One was located in the right lower lobe and the second was located in the lingular lobe. Each measured 8 mm and were thought to be consistent with metastatic disease. CT of the abdomen and pelvis on 11/20/2016 as well as repeat CT chest with IV contrast demonstrated a thick walled gallbladder suspicious for cystitis, chronic and redemonstration of the lung nodules. No concern for metastatic disease in the abdomen or pelvis. Brain MRI on 11/23/2016 was normal. PET scan demonstrated multiple foci of increased glucose concentration manifested in the right axilla, significant region generating a standard uptake value of 7.6. The maximal axial diameter the largest individual hypermetabolic soft tissue density on review of the CT of the thorax was approximately 23.1 mm in transverse dimension. An ultrasound of the right axilla and subclavicular region on 12/02/2016 demonstrated that within the right axilla there was a cluster of abnormal appearing hypoechoic nodules. The largest measured 2.3 x 1.50 1.4 cm. In the subclavicular region there was also evidence of several hypoechoic nodules the largest measuring 2.75 x 2.85 1.5 cm. She then underwent a right axillary core needle biopsy on 12/07/2016. The pathology demonstrated a poorly differentiated metastatic carcinoma. The specimen was negative for both ER and KS as well as HER-2. I discussed the case with the pathologist today who told me that histologically/morphologically the specimen was consistent with her previous specimen of breast cancer. The pathologist will issue an addendum quantifying ER and KS 0 as well as HER-2 at 0. She had a stress test and echocardiogram about 3 years ago and had no evidence of coronary artery disease. She had LV concentric hypertrophy with preserved ejection fraction. She underwent port placement along with right axillary lymph node dissection on 12/24/2016. MICROSCOPIC DIAGNOSIS Right axillary lymph nodes, regional lymph adenectomy: One out of seven lymph nodes with metastatic poorly differentiated carcinoma. See comment. COMMENT Immunohistochemistry ([id number]) does not rule out a breast primary. There is focal perinodal extension of tumor. Clinical correlation is suggested. ANTIBODY / CLONE RESULT Block 1 Mammaglobin (31A5) negative GATA3 (L50-823) positive, rare, dim CK8 (11avneA35) positive Ki-67 (30-9) positive, moderate to high ER (6F11) negative 0% KS (1E2) negative 0% CK19 (A53-B/A2.26) positive Cyclin D1/BCL-1 (SP4) positive CEA (11-7/TF-3HB-1) negative SHELLI (E29) positive CK20 (KS20.8) negative Villin (CWWB1) negative RCC (PN-15) negative CA125 (OC125) positive Current therapy: 1) Cisplatin (+/- PARP inhibitor on trial). Presents for ongoing oncologic management. Interim history: She does complain of bilateral hip pain. The pain is located over the greater trochanters bilaterally. She's had this pain in the past but she said it never really affected both sides at one time. Pain is felt mostly when she is walking or adducting the legs. No groin pain. She has some achiness in the right shoulder with some stiffness. She is also been having some shortness of breath with exertion but this is a chronic symptom. She finds oftentimes shows to [employer] around long distances and she ends up using a cart. No chest pain/pressure or tightness when this occurs. No cough, sputum production or wheezing. Her energy levels are doing fairly well. Referral neuropathy symptoms including numbness of both feet is about the same. She did stumble twice in the last few weeks. Nausea resolved. PMH, medications and allergies as below personally reviewed by me today. Any changes documented in appropriate section. ROS: Constitutional: Denies episodes of fever and night sweats. Normal appetite. Neuro: Denies DOZIER, vertigo, dizziness and imbalance. HEENT: No recent change in voice, vision or hearing. Resp: See above. CVS: Denies exertional chest pain, PND, orthopnea and LE edema. GI: Denies dysgeusia. Denies symptoms of stomatitis. Denies dysphagia and odynophagia. Denies reflux, n/v, change in bowel habits and abdominal pain. : Denies dysuria or gross hematuria. No symptoms of bladder outlet obstruction. Endo: Denies hot flashes. Denies polyuria and polydipsia. Denies heat and cold intolerance. Musculoskeletal: Denies bone, back, joint and muscular pain. Derm: Denies rash. Denies jaundice and diffuse pruritis. Heme: Denies unusual bleeding and unexplained bruising. Psych: Normal mood. PHYSICAL EXAM: Vitals: Blood pressure 140/66, pulse 107, temperature 36.6 ?C (97.9 ?F), weight 90.3 kg (199 lb). Well-appearing and in no acute distress. EYES: Sclerae are anicteric bilaterally. ENT: Oral mucosa is unremarkable. There is no sign of thrush or mucositis. NECK: Supple. LYMPHATIC: There is no palpable cervical, supraclavicular or inguinal adenopathy. No left axillary adenopathy. No residual mass or lymphadenopathy appreciated in right axilla. RESPIRATORY: Inspiratory breath sounds are of normal intensity in all norris. No rales, wheezes or rhonchi. CARDIOVASCULAR: Rhythm is regular. Normal intensity S1/S2. There is no gallop or murmur. ABDOMEN: The abdomen is nondistended. No organomegaly. No tenderness. Extremities: No swelling or edema. SKIN: No jaundice or rash. No petechiae. NEUROLOGIC: station attendant II-XII are grossly intact. No focal motor weakness. MUSCULOSKELETAL: No muscle wasting. No tenderness over the greater trochanters bilaterally. 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 Comprehensive BRCA 1 and 2 testing (scanned 12/05/2013) no mutation Complicated by myositis during adjuvant chemotherapy. -KPS is 90%. -Biopsy-proven local regional recurrence. 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 -Bilateral greater trochanteric pain. Most likely bursitis/iliotibial band syndrome. I discussed this with her. Recommended plain film x-rays. If no obvious bony pathology, then referral for physical therapy and may be consideration of steroid injection. Plan: -OV in 3 weeks. -CTs to be scheduled for 05/24. Clifford Barakat DO Referring Provider: CLIFFORD BARAKAT [[id number]] Allergies As of Date: 06/01/2017 (No Known Allergies) Date Reviewed: 06/01/2017 Reviewed by: Federica Pimentel LPN - Fully Assessed Reason for Visit: Established Patient [175] Primary Visit Diagnosis:Malignant neoplasm of upper-outer quadrant of right breast in female, estrogen receptor negative (HCC) [C50.411, Z17.1] Other Visit Diagnosis:Pain of both hip joints [M25.551, M25.552] Order(s):XR PELVIS 2V AP HIP/FROG HIP BILAT [[id number]] Order #: [id number] [facility] COMMUNICATION ORDER [[id number]] Order #: [id number]: 1 Prescriptions as of 06/01/2017 Sig: METOCLOPRAMIDE 10 MG TABLET Take 1 tablet by mouth every * LORAZEPAM 1 MG TABLET Take 1 tablet by mouth every * LIDOCAINE-PRILOCAINE 2.5 %-2.* Apply 1 application to affect* CITALOPRAM 20 MG TABLET Take 1 tablet by mouth once d* CLONAZEPAM 0.5 MG TABLET 1 tablet twice daily. PRN NITROFURANTOIN MONOHYDRATE AND * Take 100 mg by mouth twice da* EMPAGLIFLOZIN 10 MG TABLET Take 10 mg by mouth once gamaliel* VITAMIN B COMPLEX CAPSULE Take 1 capsule by mouth twice* MOMETASONE-FORMOTEROL HFA 200* Inhale 2 Puffs as instructed * CREON ORAL Take 6,000 Units by mouth. Wi* MOBIC ORAL Take 10 mg by mouth once gamaliel* OMEPRAZOLE 40 MG CAPSULE,PRO* Take 1 capsule by mouth twice* VALACYCLOVIR 500 MG TABLET Take 500 mg by mouth as neede* ERGOCALCIFEROL (VITAMIN D2) 5* Take 50,000 Units by mouth on* * INSULIN GLARGINE 100 UNIT/ML * Take 50 in am and 70 units in* * HUMALOG KWIKPEN 100 UNIT/ML S* 15 in am, 15 noon, 20 in philip LORAZEPAM 0.5 MG TABLET 1 tablet twice daily. Prn CELEBREX ORAL Take 1 capsule by mouth twice* * BUPROPION HCL SR 150 MG TABLE* Take 1 tablet by mouth twice * Medication notes this encounter LORAZEPAM 0.5 MG TABLET >> Federica Pimentel LPN 06/01/2017 9:05 AM >> FEDERICA PIMENTEL LPN Jun 01, 2017 9:05 AM discontinued Problem List As Of Date 06/01/2017 Noted Resolved THYROID NODULE [E04.1] INVALID FOR* More... Anxiety State, Unspecified [F41.1] 01/22/2009 Depressive Disorder, not Elsewhere Classified [* Priority: Moderate More... DM w/o complication type II, uncontrolled [E11.*INVALID FOR* Priority: Severe More... Other Malaise and Fatigue [R53.81, R53.83] INVALID FOR*01/22/2009 More... HYPERLIPIDEMIA NEC/NOS [E78.5] INVALID FOR* FIBROMYALGIA [[id number]] INVALID FOR* Priority: Moderate OVERWEIGHT [E66.9] INVALID FOR* OTHER HAMMER TOE [M20.40] INVALID FOR* More... URIN TRACT INFECTION RECURRENT [N39.0] INVALID FOR*01/21/2016 More... GENITAL HERPES NOS [A60.00] INVALID FOR* Tobacco Use Disorder [F17.200] INVALID FOR* Priority: Moderate More... CONGENITAL PES PLANUS [Q66.50] INVALID FOR* Displacement of Lumbar Intervertebral Disc with*INVALID FOR* Priority: Moderate More... More... Routine Gynecological Examination [Z01.419] INVALID FOR* Class: Chronic More... 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*INVALID FOR* Malignant neoplasm metastatic to left lung (HCC*INVALID FOR* Examination of participant in clinical trial [Z*INVALID FOR* Visit Notes: >> Federica Pimentel LPN Wed Jun 01, 2017 9:06 AM Status: Signed Est patient. 3 week ov. Had labs this am @ [facility]. Labs not yet available. Federica Pimentel LPN Encounter Status:Closed by CLIFFORD BARAKAT DO on 06/01/17 CBC W/DIFF, AUTOMATED Collected: 06/01/2017 Status: F Source: [place] 7:30 AM [facility] [place] REPOSITORY TYPE CODE TESTS RESULT OUT OF RANGE REFERENCE UNITS LAB L100.1000 4.4-11.0 K/mm3 Normal WBC 5.3 LAB L100.1200 4.2-5.4 M/mm3 Low RBC 3.42 LAB L100.1300 12.0-15.0 g/dl Low HGB 10.8 LAB L100.1400 37-47 % Low HCT 32.4 LAB L100.1500 81-99 fL Normal MCV 94.7 LAB L100.1600 27.0-32.0 pg Normal MCH 31.6 LAB L100.1700 32-36 g/gl Normal MCHC 33.3 LAB L100.1810 11.6-14.6 % Normal RDW CV 13.0 LAB L100.1820 35.1-43.9 fl High RDW SD 45.2 LAB L100.1900 150-450 K/mm3 Normal PLT 307 LAB L100.2000 6.2-12.0 fl Normal MPV 9.2 LAB L100.2100 47-70 % Normal NEUT% 52.0 LAB L100.2200 19-41 % High LY% 41.3 LAB L100.2300 0-10 % Normal MONO% 5.5 LAB L100.2400 0-5 % Normal EO% 1.0 LAB L100.2500 0-1 % Normal BASO% 0.2 LAB L100.2550 0.0-0.9 % Normal IM GRAN % 0.000 Result Comment: IG% - Immature Granulocytes (promyelocytes, myelocytes and metamyelocytes) > 1% indicates that a LEFT SHIFT is Present. LAB L100.2620 2.0-7.7 X10 3/uL Normal Absolute Neut 2.7 LAB L100.2720 0.83-4.51 X10 3/ul Normal Absolute Lymph 2.17 Performed By: #### L100.0100 #### [facility] [address] [place], [place], [address] COMPREHENSIVE METABOLIC Collected: 06/01/2017 Status: F Source: [facility] 7:30 AM [facility] [place] REPOSITORY TYPE CODE TESTS RESULT OUT OF RANGE REFERENCE UNITS LAB L501.0100 74-106 mg/dL High GLU 272 Result Comment: Glucose result greater than or equal to 200 mg/dL suggests DIABETES MELLITUS per A.D.A. criteria. Please note revised GLUCOSE reference range effective 2017. LAB L501.1000 7-18 mg/dL High BUN 26 LAB L501.1100 0.55-1.02 mg/dL Normal CREAT,SERUM 0.69 Result Comment: The validity of the calculated GFR AND GFRAA in patients over 70 years has not been determined. Clinical correlation is essential. LAB L501.1110 >60 mL/min Normal EST GFR 97 Result Comment: Non- GFR Calc LAB L501.1115 >60 mL/min Normal EST GFR - AA 117 Result Comment: GFR Calc LAB L501.1300 10-20 RATIO High BUN/CRE 37.7 LAB L501.1500 6.4-8.2 g/dL T Normal PROT 7.2 LAB L501.1800 3.2-5.0 g/dL Normal ALB 3.4 LAB L501.1950 2.2-4.2 g/dL Normal GLOB 3.8 LAB L501.2000 0.9-2.4 RATIO Normal A/G 0.9 LAB L501.2200 8.5-10.1 mg/dL CA Normal 8.5 LAB L501.4100 15-37 U/L Low AST 11 LAB L501.4305 45-117 U/L Normal ALK P 80 LAB L501.4405 13-56 U/L Normal ALT 17 Result Comment: Please note revised ALT reference range effective 2017. LAB L501.4600 0.20-1.00 mg/dL Normal T BILI 0.20 LAB L501.5300 136-145 mmol/L Normal NA 137 LAB L501.5600 3.5-5.1 mmol/L Normal K 4.1 LAB L501.5900 98-107 mmol/L Normal CL 100 LAB L501.6100 21.0-32.0 mmol/L Normal CO2 26.0 LAB L501.6200 5-15 Normal GAP 11 Performed By: #### L500.4050, L501.5200 #### [facility] [address], [place], [address] MAGNESIUM Collected: 06/01/2017 Status: F Source: [place] 7:30 AM [facility] [place] REPOSITORY TYPE CODE TESTS RESULT OUT OF RANGE REFERENCE UNITS LAB L501.5200 1.6-2.6 mg/dL Low MG 1.5 Result Comment: Please note revised Magnesium reference range effective 2017. Performed By: #### L500.4050, L501.5200 #### [facility] [address] [place], [address] HOSP Observed: 06/01/2017 Status: COMPLETED Source: [place] 12:00 AM [facility] REPOSITORY Patient Update (HEMAWS) PEDRO LUIS WILCOX ([id number]) 1970 F Date Time Provider Department 06/01/17 EMRE MCDONOUGH) DANYEL During your visit today, we recorded the following information about you: Emre Mcdonough RN 2017 11:45 AM Addendum IRB# [id number]. ?Randomized on: 01/28/2017. ?ARM: Blinded. Reporting Period: 06/10/17 - 06/01/17: ?? Patient is here?for Cycle #6. ?Physical exam, toxicities, labs and medications reviewed with Clifford Barakat, DO Patient meets protocol requirements for treatment. Patient will continue with Cycle #6 on ABT-888/Placebo monotherapy. ?? ECOG Score: 0- Fully active, able to carry on all pre-disease performance w/o restriction.? ?? Toxicities: CTCAE V. 4 ?? Nausea, grade 1, Definitely related. Patient marked missed doses on calendar due to nausea. Patient denies vomiting. Fatigue, grade 1, Definitely Related. Better this visit. Neuropathy, grade 1, in finger tips, Definitely related. And, no change in lower extremities that is chronic for patient. Arthralgia, both hips, grade 1, Unlikely related. See Dr. Barakat note. ?? Denies other C/O's ?? Labs earlier today drawn at [facility]: CBC Hgb 10.8, grade 1, definitely related Mg, 1.5, grade 1, Unlikely Related Glucose, 272, non-fasting, grade 3, Unrelated. Not considered an AZ. ?? Menopausal Status: Post Contraception: Hysterectomy LMP: na ?? Research Labs: (Time/Type/Sent to): ?None? QOL / Questionnaires: N/A? ?? The patient returned study medication diary and 2 bottles of ?Veliparib vs Placebo with 0 and 8 ?capsules remaining. ?Per diary, patient missed 3 doses but per pill count patient missed 4 doses. Patient is not compliant with study medication self administration. ? Patient ok to continue on study pills as monotherapy per protocol. ? [place] order-- The patient was given a new study medication diary and the current?bottles?of Veliparib vs Placebo with 8?capsules remaining and an new bottle with 64 capsules as dispensed by the pharmacy. Instructed to return the diary and medication bottle with any remaining medication at next study visit. Use of the study medication diary and dosing instructions were reviewed with the patient. ??The patient aware to start study pills today as the start of Cycle #6. Patient aware that number of pills dispensed is not enough to get though the next cycle and she will be short by 2 days. She is aware that more study pills will be ordered and she will be called when they arrive to arrange a time for her to received another bottle prior to next appointment. ? Reviewed timeline going forward. Patient has CT's and lab scheduled for 06/20/17 and bone scan on 06/09/17 prior to the 06/21/17 office visit. Patient states that Bone scan is on 06/09/17 due to [facility] policy of have bone scan and CT scan at 10 days apart. Patient agreeable with this plan. She has contact numbers if she needs anything in the interim. Emre Mcdonough RN Allergies As of Date: 06/01/2017 (No Known Allergies) Date Reviewed: 06/01/2017 Reviewed by: Federica Pimentel LPN - Fully Assessed Reason for Visit: Clinical Trial Nurse Note [Other] Cmt: S1416 Prescriptions as of 06/01/2017 Sig: METOCLOPRAMIDE 10 MG TABLET Take 1 tablet by mouth every * LORAZEPAM 1 MG TABLET Take 1 tablet by mouth every * LIDOCAINE-PRILOCAINE 2.5 %-2.* Apply 1 application to affect* CITALOPRAM 20 MG TABLET Take 1 tablet by mouth once d* CLONAZEPAM 0.5 MG TABLET 1 tablet twice daily. PRN LORAZEPAM 0.5 MG TABLET 1 tablet twice daily. Prn NITROFURANTOIN MONOHYDRATE AND * Take 100 mg by mouth twice da* EMPAGLIFLOZIN 10 MG TABLET Take 10 mg by mouth once gamaliel* VITAMIN B COMPLEX CAPSULE Take 1 capsule by mouth twice* MOMETASONE-FORMOTEROL HFA 200* Inhale 2 Puffs as instructed * CREON ORAL Take 6,000 Units by mouth. Wi* MOBIC ORAL Take 10 mg by mouth once gamaliel* CELEBREX ORAL Take 1 capsule by mouth twice* OMEPRAZOLE 40 MG CAPSULE,PRO* Take 1 capsule by mouth twice* VALACYCLOVIR 500 MG TABLET Take 500 mg by mouth as neede* ERGOCALCIFEROL (VITAMIN D2) 5* Take 50,000 Units by mouth on* * BUPROPION HCL SR 150 MG TABLE* Take 1 tablet by mouth twice * * INSULIN GLARGINE 100 UNIT/ML * Take 50 in am and 70 units in* * HUMALOG KWIKPEN 100 UNIT/ML S* 15 in am, 15 noon, 20 in philip Problem List As Of Date 06/01/2017 Noted Resolved THYROID NODULE [E04.1] INVALID FOR* More... Anxiety State, Unspecified [F41.1] 01/22/2009 Depressive Disorder, not Elsewhere Classified [* Priority: Moderate More... DM w/o complication type II, uncontrolled [E11.*INVALID FOR* Priority: Severe More... Other Malaise and Fatigue [R53.81, R53.83] INVALID FOR*01/22/2009 More... HYPERLIPIDEMIA NEC/NOS [E78.5] INVALID FOR* FIBROMYALGIA [[id number]] INVALID FOR* Priority: Moderate OVERWEIGHT [E66.9] INVALID FOR* OTHER HAMMER TOE [M20.40] INVALID FOR* More... URIN TRACT INFECTION RECURRENT [N39.0] INVALID FOR*01/21/2016 More... GENITAL HERPES NOS [A60.00] INVALID FOR* Tobacco Use Disorder [F17.200] INVALID FOR* Priority: Moderate More... CONGENITAL PES PLANUS [Q66.50] INVALID FOR* Displacement of Lumbar Intervertebral Disc with*INVALID FOR* Priority: Moderate More... More... Routine Gynecological Examination [Z01.419] INVALID FOR* Class: Chronic More... 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*INVALID FOR* Malignant neoplasm metastatic to left lung (HCC*INVALID FOR* Examination of participant in clinical trial [Z*INVALID FOR* Visit Notes: >> Emre (Brittney) Ceasar Wed Jun 01, 2017 4:00 PM Status: Addendum IRB# [id number]. ?Randomized on: 01/28/2017. ?ARM: Blinded. Reporting Period: 06/10/17 - 06/01/17: ?? Patient is here?for Cycle #6. ?Physical exam, toxicities, labs and medications reviewed with Clifford Barakat, DO Patient meets protocol requirements for treatment. Patient will continue with Cycle #6 on ABT-888/Placebo monotherapy. ?? ECOG Score: 0- Fully active, able to carry on all pre-disease performance w/o restriction.? ?? Toxicities: CTCAE V. 4 ?? Nausea, grade 1, Definitely related. Patient marked missed doses on calendar due to nausea. Patient denies vomiting. Fatigue, grade 1, Definitely Related. Better this visit. Neuropathy, grade 1, in finger tips, Definitely related. And, no change in lower extremities that is chronic for patient. Arthralgia, both hips, grade 1, Unlikely related. See Dr. Barakat note. ?? Denies other C/O's ?? Labs earlier today drawn at [facility]: CBC Hgb 10.8, grade 1, definitely related Mg, 1.5, grade 1, Unlikely Related Glucose, 272, non-fasting, grade 3, Unrelated. Not considered an AZ. ?? Menopausal Status: Post Contraception: Hysterectomy LMP: na ?? Research Labs: (Time/Type/Sent to): ?None? QOL / Questionnaires: N/A? ?? The patient returned study medication diary and 2 bottles of ?Veliparib vs Placebo with 0 and 8 ?capsules remaining. ?Per diary, patient missed 3 doses but per pill count patient missed 4 doses. Patient is not compliant with study medication self administration. ? Patient ok to continue on study pills as monotherapy per protocol. ? [place] order-- The patient was given a new study medication diary and the current?bottles?of Veliparib vs Placebo with 8?capsules remaining and an new bottle with 64 capsules as dispensed by the pharmacy. Instructed to return the diary and medication bottle with any remaining medication at next study visit. Use of the study medication diary and dosing instructions were reviewed with the patient. ??The patient aware to start study pills today as the start of Cycle #6. Patient aware that number of pills dispensed is not enough to get though the next cycle and she will be short by 2 days. She is aware that more study pills will be ordered and she will be called when they arrive to arrange a time for her to received another bottle prior to next appointment. ? Reviewed timeline going forward. Patient has CT's and lab scheduled for 06/20/17 and bone scan on 06/09/17 prior to the 06/21/17 office visit. Patient states that Bone scan is on 06/09/17 due to [facility] policy of have bone scan and CT scan at 10 days apart. Patient agreeable with this plan. She has contact numbers if she needs anything in the interim. Emre Mcdonough RN Encounter Status:Closed by EMRE MCDONOUGH on 06/02/17 PROGRESS Observed: 05/30/2017 Status: COMPLETED Source: [place] 4:20 PM [facility] [place] REPOSITORY HNO ID: [id number] Author: Isha Servin (Sw) Service: (none) Author Type: Ball Rolling Machine Operator Type: Progress Notes Filed: 05/30/2017 4:20 PM Note Text: SOCIAL WORK FOLLOW UP NOTE: [facility] Date of service: May 30, 2017 Pedro Luis Wilcox is being seen for a follow up social work visit. Today's visit includes: patient not present TOPICS ADDRESSED: Disability; HILARIO received second page of paperwork for [employer] that needed to be completed via fax. HILARIO completed and provided to doctor to sign. PLAN: Continue follow up as needed F/U APPOINTMENT: ANNAMARIA Nunez PROGRESS Observed: 05/26/2017 Status: COMPLETED Source: [place] 4:21 PM [facility] [place] REPOSITORY HNO ID: [id number] Author: Isha Servin (Sw) Service: (none) Author Type: Ball Rolling Machine Operator Type: Progress Notes Filed: 05/26/2017 4:23 PM Note Text: SOCIAL WORK FOLLOW UP NOTE: [facility] Date of service: May 26, 2017 Pedro Luis Wilcox is being seen for a follow up social work visit. Today's visit includes: patient not present TOPICS ADDRESSED: Disability paperwork; HILARIO completed paperwork patient brought in earlier today and noticed there was no section for doctor to sign. HILARIO called patient and left a message asking if some of the paperwork was missing. HILARIO informed patient she would be in the office until 5 today and will be off tomorrow, 05/27/17. HILARIO encouraged patient to leave a message if she calls tomorrow and HILARIO will receive it first thing Tuesday morning. PLAN: Continue follow up as needed F/U APPOINTMENT: ANNAMARIA Nunez PROGRESS Observed: 05/26/2017 Status: COMPLETED Source: [place] 10:06 AM [facility] REPOSITORY HNO ID: [id number] Author: Isha Servin (Sw) Service: (none) Author Type: Ball Rolling Machine Operator Type: Progress Notes Filed: 05/26/2017 10:07 AM Note Text: [facility]IAL WORK FOLLOW UP [facility]: [facility] Date of service: May 26, 2017 Pedro Luis Wilcox is being seen for a follow up social work visit. Today's visit includes: patient TOPICS ADDRESSED: Disability; Patient has additional disability paperwork from [facility] that needs completed. Patient requests that paperwork not be faxed because she also needs to send additional paperwork along with these documents. 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 SW will completed paperwork and provide to doctor to review and sign. PLAN: Continue follow up as needed F/U APPOINTMENT: 06/01/17 ANNAMARIA Schroeder PROGRESS Observed: 05/10/2017 Status: COMPLETED Source: [place] 10:33 AM [facility] REPOSITORY HNO ID: [id number] Author: Clifford Barakat Service: (none) Author Type: Physician Type: Progress Notes Filed: 05/11/2017 4:39 PM Note Text: Diagnosis: 1) Breast cancer. 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 Her mother has a h/o breast cancer, so patient had been undergoing annual mammogram. The patient underwent a screening mammogram on 08/30/2013. A 1.6 cm nodular density was appreciated in the tail of the right breast. She underwent targeted ultrasound the same day. That study revealed a 9 mm hypoechoic solid nodule at the 10:00 position of the breast measuring 6 cm from the nipple. Stereotactic core needle biopsy on 09/13/2013. The tissue revealed invasive poorly differentiated ductal carcinoma. The specimen was negative for both estrogen and progesterone receptors. Both were quantified at 0%. HER-2 was 2+ an immunostain and nonamplified by FISH testing. The patient underwent an MRI of the breast on 09/20/2013. The study revealed that the left breast had no suspicious findings. In the right breast there was a 1.6 cm abnormal enhancing mass in the superior outer aspect of the right breast approximately 10 cm from the nipple. This correlated to the biopsy area. Underwent partial mastectomy with SLN biopsy 10/05/2013. The final pathology revealed an invasive poorly differentiated ductal carcinoma measuring 1.3 cm in size. There was a single focus. DCIS was present measuring 2 mm in maximum dimension. The grade of the cancer was 3. Margins were negative. The closest was 6 mm. Lymphovascular invasion was not identified. One sentinel lymph node was retrieved. It was negative. Received two cycles of TC. Admitted for severe PAGE. Admitted 12/17/2013 due to increase in thigh pain and dyspnea. Markedly elevated CK. No increase in serum Cr. Chemotherapy stopped after cycle #2. Was seen by ornamental plasterer helper at . 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 Completed radiation 03/26/2014. She started developing intermittent shortness of breath with exertion. She also has a cough that is a dry cough. She was taken off her PAM inhibitor but the cough has not changed. She had a PA and lateral chest film done on 10/22/2016 that demonstrated no abnormality. She then underwent a CT scan the chest without IV contrast on 11/06/2016. Two nodules were observed in the pulmonary parenchyma. One was located in the right lower lobe and the second was located in the lingular lobe. Each measured 8 mm and were thought to be consistent with metastatic disease. CT of the abdomen and pelvis on 11/20/2016 as well as repeat CT chest with IV contrast demonstrated a thick walled gallbladder suspicious for cystitis, chronic and redemonstration of the lung nodules. No concern for metastatic disease in the abdomen or pelvis. Brain MRI on 11/23/2016 was normal. PET scan demonstrated multiple foci of increased glucose concentration manifested in the right axilla, significant region generating a standard uptake value of 7.6. The maximal axial diameter the largest individual hypermetabolic soft tissue density on review of the CT of the thorax was approximately 23.1 mm in transverse dimension. An ultrasound of the right axilla and subclavicular region on 12/02/2016 demonstrated that within the right axilla there was a cluster of abnormal appearing hypoechoic nodules. The largest measured 2.3 x 1.50 1.4 cm. In the subclavicular region there was also evidence of several hypoechoic nodules the largest measuring 2.75 x 2.85 1.5 cm. She then underwent a right axillary core needle biopsy on 12/07/2016. The pathology demonstrated a poorly differentiated metastatic carcinoma. The specimen was negative for both ER and KS as well as HER- 2. I discussed the case with the pathologist today who told me that histologically/morphologically the specimen was consistent with her previous specimen of breast cancer. The pathologist will issue an addendum quantifying ER and KS 0 as well as HER-2 at 0. She had a stress test and echocardiogram about 3 years ago and had no evidence of coronary artery disease. She had LV concentric hypertrophy with preserved ejection fraction. She underwent port placement along with right axillary lymph node dissection on 12/24/2016. MICROSCOPIC DIAGNOSIS Right axillary lymph nodes, regional lymph adenectomy: One out of seven lymph nodes with metastatic poorly differentiated carcinoma. See comment. COMMENT Immunohistochemistry ([id number]) does not rule out a breast primary. There is focal perinodal extension of tumor. Clinical correlation is suggested. ANTIBODY / CLONE RESULT Block 1 Mammaglobin (31A5) negative GATA3 (L50-823) positive, rare, dim CK8 (36skbbT28) positive Ki-67 (30-9) positive, moderate to high ER (6F11) negative 0% KS (1E2) negative 0% CK19 (A53-B/A2.26) positive Cyclin D1/BCL-1 (SP4) positive CEA (11-7/TF-3HB-1) negative SHELLI (E29) positive CK20 (KS20.8) negative Villin (CWWB1) negative RCC (PN-15) negative CA125 (OC125) positive Current therapy: 1) Cisplatin (+/- PARP inhibitor on trial). Presents for ongoing oncologic management. Interim history: She required third hospitalization for nausea vomiting in addition she had bronchitis secondary to RSV. She's feeling much better now. No nausea for the past several days. Her appetite is normal. Weight is holding stable. She's noticed a mild increase in symptoms of neuropathy which includes now some numbness of the fingertips and a slight increase in numbness in the feet but no symptoms extending proximal to the ankles. Cough is resolved. No wheezing. No shortness of breath at rest. In general the shortness breath she was experiencing before she started treatment, has improved. She underwent an extensive workup for shortness of breath prior to diagnosis of metastatic breast cancer. PMH, medications and allergies as below personally reviewed by me today. Any changes documented in appropriate section. ROS: Constitutional: Denies episodes of fever and night sweats. Normal appetite. Neuro: Denies DOZIER, vertigo, dizziness and imbalance. HEENT: No recent change in voice, vision or hearing. Resp: See above. CVS: Denies exertional chest pain, PND, orthopnea and LE edema. GI: Denies dysgeusia. Denies symptoms of stomatitis. Denies dysphagia and odynophagia. Denies reflux, n/v, change in bowel habits and abdominal pain. : Denies dysuria or gross hematuria. No symptoms of bladder outlet obstruction. Endo: Denies hot flashes. Denies polyuria and polydipsia. Denies heat and cold intolerance. Musculoskeletal: Denies bone, back, joint and muscular pain. Derm: Denies rash. Denies jaundice and diffuse pruritis. Heme: Denies unusual bleeding and unexplained bruising. Psych: Normal mood. PHYSICAL EXAM: Vitals: Blood pressure 143/73, pulse 113, temperature 36.7 ?C (98.1 ?F), weight 89.4 kg (197 lb). Well-appearing and in no acute distress. EYES: Sclerae are anicteric bilaterally. ENT: Oral mucosa is unremarkable. There is no sign of thrush or mucositis. NECK: Supple. LYMPHATIC: There is no palpable cervical, supraclavicular or inguinal adenopathy. No left axillary adenopathy. No residual mass or lymphadenopathy appreciated in right axilla. RESPIRATORY: Inspiratory breath sounds are of normal intensity in all norris. No rales, wheezes or rhonchi. CARDIOVASCULAR: Rhythm is regular. Normal intensity S1/S2. There is no gallop or murmur. ABDOMEN: The abdomen is nondistended. No organomegaly. No tenderness. Extremities: No swelling or edema. SKIN: No jaundice or rash. No petechiae. NEUROLOGIC: station attendant II-XII are grossly intact. No focal motor weakness. MUSCULOSKELETAL: No muscle wasting. 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 Comprehensive BRCA 1 and 2 testing (scanned 12/05/2013) no mutation Complicated by myositis during adjuvant chemotherapy. -KPS is 90%. -Biopsy-proven local regional recurrence. 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 Now affecting fingertips, but still grade 1. -Discussed with her that according to study protocol of cisplatin will be discontinued and she will continue on oral medication. Repeat CT scan of the chest, abdomen and pelvis will be obtained in 6 weeks. Discussed with her that if there is evidence of progression, she can come off trial and we can try cisplatin single agent outside the auspices of the trial or move on to another single agent chemotherapy drug. She expressed an understanding of this. Plan: -OV in 3 weeks. -CTs to be scheduled for 05/24. Clifford Barakat DO CNOVSP Observed: 05/10/2017 Status: COMPLETED Source: [place] 9:50 AM [facility] REPOSITORY Visit (SP) Office ([place]ANY[place]) PEDRO LUIS WILCOX ([id number]) 1970 F Date Time Provider Department 05/10/17 9:50 AM CLIFFORD BARAKAT During your visit today, we recorded the following information about you: Temperature Pulse Blood pressure Weight 98.1 degrees 113/minute 143/73 89.4 kg Orlando Langston LPN, LPN 05/10/2017 10:44 AM Signed Est pt, discuss recent lab results, tx tomorrow Orlando Langston LPN' Clifford Barakat DO 05/11/2017 4:39 PM Signed Diagnosis: 1) Breast cancer. 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 Her mother has a h/o breast cancer, so patient had been undergoing annual mammogram. The patient underwent a screening mammogram on 08/30/2013. A 1.6 cm nodular density was appreciated in the tail of the right breast. She underwent targeted ultrasound the same day. That study revealed a 9 mm hypoechoic solid nodule at the 10:00 position of the breast measuring 6 cm from the nipple. Stereotactic core needle biopsy on 09/13/2013. The tissue revealed invasive poorly differentiated ductal carcinoma. The specimen was negative for both estrogen and progesterone receptors. Both were quantified at 0%. HER-2 was 2+ an immunostain and nonamplified by FISH testing. The patient underwent an MRI of the breast on 09/20/2013. The study revealed that the left breast had no suspicious findings. In the right breast there was a 1.6 cm abnormal enhancing mass in the superior outer aspect of the right breast approximately 10 cm from the nipple. This correlated to the biopsy area. Underwent partial mastectomy with SLN biopsy 10/05/2013. The final pathology revealed an invasive poorly differentiated ductal carcinoma measuring 1.3 cm in size. There was a single focus. DCIS was present measuring 2 mm in maximum dimension. The grade of the cancer was 3. Margins were negative. The closest was 6 mm. Lymphovascular invasion was not identified. One sentinel lymph node was retrieved. It was negative. Received two cycles of TC. Admitted for severe PAGE. Admitted 12/17/2013 due to increase in thigh pain and dyspnea. Markedly elevated CK. No increase in serum Cr. Chemotherapy stopped after cycle #2. Was seen by ornamental plasterer helper at . 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 Completed radiation 03/26/2014. She started developing intermittent shortness of breath with exertion. She also has a cough that is a dry cough. She was taken off her PAM inhibitor but the cough has not changed. She had a PA and lateral chest film done on 10/22/2016 that demonstrated no abnormality. She then underwent a CT scan the chest without IV contrast on 11/06/2016. Two nodules were observed in the pulmonary parenchyma. One was located in the right lower lobe and the second was located in the lingular lobe. Each measured 8 mm and were thought to be consistent with metastatic disease. CT of the abdomen and pelvis on 11/20/2016 as well as repeat CT chest with IV contrast demonstrated a thick walled gallbladder suspicious for cystitis, chronic and redemonstration of the lung nodules. No concern for metastatic disease in the abdomen or pelvis. Brain MRI on 11/23/2016 was normal. PET scan demonstrated multiple foci of increased glucose concentration manifested in the right axilla, significant region generating a standard uptake value of 7.6. The maximal axial diameter the largest individual hypermetabolic soft tissue density on review of the CT of the thorax was approximately 23.1 mm in transverse dimension. An ultrasound of the right axilla and subclavicular region on 12/02/2016 demonstrated that within the right axilla there was a cluster of abnormal appearing hypoechoic nodules. The largest measured 2.3 x 1.50 1.4 cm. In the subclavicular region there was also evidence of several hypoechoic nodules the largest measuring 2.75 x 2.85 1.5 cm. She then underwent a right axillary core needle biopsy on 12/07/2016. The pathology demonstrated a poorly differentiated metastatic carcinoma. The specimen was negative for both ER and KS as well as HER-2. I discussed the case with the pathologist today who told me that histologically/morphologically the specimen was consistent with her previous specimen of breast cancer. The pathologist will issue an addendum quantifying ER and KS 0 as well as HER-2 at 0. She had a stress test and echocardiogram about 3 years ago and had no evidence of coronary artery disease. She had LV concentric hypertrophy with preserved ejection fraction. She underwent port placement along with right axillary lymph node dissection on 12/24/2016. MICROSCOPIC DIAGNOSIS Right axillary lymph nodes, regional lymph adenectomy: One out of seven lymph nodes with metastatic poorly differentiated carcinoma. See comment. COMMENT Immunohistochemistry ([id number]) does not rule out a breast primary. There is focal perinodal extension of tumor. Clinical correlation is suggested. ANTIBODY / CLONE RESULT Block 1 Mammaglobin (31A5) negative GATA3 (L50-823) positive, rare, dim CK8 ([id number]) positive Ki-67 (30-9) positive, moderate to high ER (6F11) negative 0% KS (1E2) negative 0% CK19 (A53-B/A2.26) positive Cyclin D1/BCL-1 (SP4) positive CEA (11-7/TF-3HB-1) negative SHELLI (E29) positive CK20 (KS20.8) negative Villin (CWWB1) negative RCC (PN-15) negative CA125 (OC125) positive Current therapy: 1) Cisplatin (+/- PARP inhibitor on trial). Presents for ongoing oncologic management. Interim history: She required third hospitalization for nausea vomiting in addition she had bronchitis secondary to RSV. She's feeling much better now. No nausea for the past several days. Her appetite is normal. Weight is holding stable. She's noticed a mild increase in symptoms of neuropathy which includes now some numbness of the fingertips and a slight increase in numbness in the feet but no symptoms extending proximal to the ankles. Cough is resolved. No wheezing. No shortness of breath at rest. In general the shortness breath she was experiencing before she started treatment, has improved. She underwent an extensive workup for shortness of breath prior to diagnosis of metastatic breast cancer. PMH, medications and allergies as below personally reviewed by me today. Any changes documented in appropriate section. ROS: Constitutional: Denies episodes of fever and night sweats. Normal appetite. Neuro: Denies DOZIER, vertigo, dizziness and imbalance. HEENT: No recent change in voice, vision or hearing. Resp: See above. CVS: Denies exertional chest pain, PND, orthopnea and LE edema. GI: Denies dysgeusia. Denies symptoms of stomatitis. Denies dysphagia and odynophagia. Denies reflux, n/v, change in bowel habits and abdominal pain. : Denies dysuria or gross hematuria. No symptoms of bladder outlet obstruction. Endo: Denies hot flashes. Denies polyuria and polydipsia. Denies heat and cold intolerance. Musculoskeletal: Denies bone, back, joint and muscular pain. Derm: Denies rash. Denies jaundice and diffuse pruritis. Heme: Denies unusual bleeding and unexplained bruising. Psych: Normal mood. PHYSICAL EXAM: Vitals: Blood pressure 143/73, pulse 113, temperature 36.7 ?C (98.1 ?F), weight 89.4 kg (197 lb). Well-appearing and in no acute distress. EYES: Sclerae are anicteric bilaterally. ENT: Oral mucosa is unremarkable. There is no sign of thrush or mucositis. NECK: Supple. LYMPHATIC: There is no palpable cervical, supraclavicular or inguinal adenopathy. No left axillary adenopathy. No residual mass or lymphadenopathy appreciated in right axilla. RESPIRATORY: Inspiratory breath sounds are of normal intensity in all norris. No rales, wheezes or rhonchi. CARDIOVASCULAR: Rhythm is regular. Normal intensity S1/S2. There is no gallop or murmur. ABDOMEN: The abdomen is nondistended. No organomegaly. No tenderness. Extremities: No swelling or edema. SKIN: No jaundice or rash. No petechiae. NEUROLOGIC: station attendant II-XII are grossly intact. No focal motor weakness. MUSCULOSKELETAL: No muscle wasting. 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 Comprehensive BRCA 1 and 2 testing (scanned 12/05/2013) no mutation Complicated by myositis during adjuvant chemotherapy. -KPS is 90%. -Biopsy-proven local regional recurrence. 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 Now affecting fingertips, but still grade 1. -Discussed with her that according to study protocol of cisplatin will be discontinued and she will continue on oral medication. Repeat CT scan of the chest, abdomen and pelvis will be obtained in 6 weeks. Discussed with her that if there is evidence of progression, she can come off trial and we can try cisplatin single agent outside the auspices of the trial or move on to another single agent chemotherapy drug. She expressed an understanding of this. Plan: -OV in 3 weeks. -CTs to be scheduled for 05/24. Clifford Barakat DO Referring Provider: CLIFFORD BARAKAT [[id number]] Allergies As of Date: 05/10/2017 (No Known Allergies) Date Reviewed: 05/10/2017 Reviewed by: Orlando Lanier (Tiffanie) TIFFANIE Langston - Fully Assessed Reason for Visit: Established Patient [[id number]] Primary Visit Diagnosis:Malignant neoplasm of upper-outer quadrant of right breast in female, estrogen receptor negative (HCC) [C50.411, Z17.1] Other Visit Diagnosis:Malignant neoplasm metastatic to left lung (HCC) [C78.02] Order(s):CT ABD/PEL W IVCON [[id number]] Order #: [id number] FUTURE CT CHEST W IVCON [[id number]] Order #: [id number] FUTURE [] iv contrast (radiology procedure)CT Chest ABD/PEL-Inject, intravenously, once for 1 dose.No IV access, insert saline lock prior to the beginning of sedation, infusion, injection of imaging exam. Discontinue saline lock post exam. If Pt. has a central line or IVAD, may access for administration according to line specific nursing protocol. Once exam is complete flush line and de- access according to line specific nursing protocol in the CT contrast administration guidelines link.Disp: 1 EachRfl: 0 [] enteric contrast (radiology procedure)For CT CHESTABD/PEL W IVCON Routine order Administer, As Directed One Time Only, via Oral, Rectal, both Oral and Rectal, Enteric Tube, Stoma or Indwelling Catheter, Enteric Contrast as designated per enteric contrast guidelinesDisp: 1 EachRfl: 0 HEMONC COMMUNICATION ORDER [[id number]] Order #: [id number]: 1 Follow-up and Disposition History Recorded Prescriptions as of 05/10/2017 Sig: METOCLOPRAMIDE 10 MG TABLET Take 1 tablet by mouth every * LORAZEPAM 1 MG TABLET Take 1 tablet by mouth every * LIDOCAINE-PRILOCAINE 2.5 %-2.* Apply 1 application to affect* CITALOPRAM 20 MG TABLET Take 1 tablet by mouth once d* CLONAZEPAM 0.5 MG TABLET 1 tablet twice daily. PRN LORAZEPAM 0.5 MG TABLET 1 tablet twice daily. Prn NITROFURANTOIN MONOHYDRATE AND * Take 100 mg by mouth twice da* EMPAGLIFLOZIN 10 MG TABLET Take 10 mg by mouth once gamaliel* VITAMIN B COMPLEX CAPSULE Take 1 capsule by mouth twice* MOMETASONE-FORMOTEROL HFA 200* Inhale 2 Puffs as instructed * CREON ORAL Take 6,000 Units by mouth. Wi* MOBIC ORAL Take 10 mg by mouth once gamaliel* OMEPRAZOLE 40 MG CAPSULE,PRO* Take 1 capsule by mouth twice* VALACYCLOVIR 500 MG TABLET Take 500 mg by mouth as neede* ERGOCALCIFEROL (VITAMIN D2) 5* Take 50,000 Units by mouth on* * INSULIN GLARGINE 100 UNIT/ML * Take 50 in am and 70 units in* * HUMALOG KWIKPEN 100 UNIT/ML S* 15 in am, 15 noon, 20 in philip IV CONTRAST (RADIOLOGY PROCED* CT Chest ABD/PEL-Inject, intr* ENTERIC CONTRAST (RADIOLOGY P* For CT CHESTABD/PEL W IVCON R* CELEBREX ORAL Take 1 capsule by mouth twice* * BUPROPION HCL SR 150 MG TABLE* Take 1 tablet by mouth twice * Problem List As Of Date 05/10/2017 Noted Resolved THYROID NODULE [E04.1] INVALID FOR* More... Anxiety State, Unspecified [F41.1] 01/22/2009 Depressive Disorder, not Elsewhere Classified [* Priority: Moderate More... DM w/o complication type II, uncontrolled [E11.*INVALID FOR* Priority: Severe More... Other Malaise and Fatigue [R53.81, R53.83] INVALID FOR*01/22/2009 More... HYPERLIPIDEMIA NEC/NOS [E78.5] INVALID FOR* FIBROMYALGIA [DYQ5031] INVALID FOR* Priority: Moderate OVERWEIGHT [E66.9] INVALID FOR* OTHER HAMMER TOE [M20.40] INVALID FOR* More... URIN TRACT INFECTION RECURRENT [N39.0] INVALID FOR*01/21/2016 More... GENITAL HERPES NOS [A60.00] INVALID FOR* Tobacco Use Disorder [F17.200] INVALID FOR* Priority: Moderate More... CONGENITAL PES PLANUS [Q66.50] INVALID FOR* Displacement of Lumbar Intervertebral Disc with*INVALID FOR* Priority: Moderate More... More... Routine Gynecological Examination [Z01.419] INVALID FOR* Class: Chronic More... 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*INVALID FOR* Malignant neoplasm metastatic to left lung (HCC*INVALID FOR* Examination of participant in clinical trial [Z*INVALID FOR* Visit Notes: >> Orlando Lanier (Tiffanie) TIFFANIE Langston Franc[place]a May 10, 2017 10:04 AM Status: Signed Est pt, discuss recent lab results, tx tomorrow Orlando Lanier TIFFANIE Langston' Encounter Status:Closed by CLIFFORD BARAKAT DO on 05/11/17 CBC W/DIFF, AUTOMATED Collected: 05/10/2017 Status: F Source: [place] 6:54 AM [facility] REPOSITORY Order Comment: Send Results To: PCP, Dr. Barakat Reason for Laboratory Test Neutropenia, chronic anemia TYPE CODE TESTS RESULT OUT OF RANGE REFERENCE UNITS LAB L100.1000 4.4-11.0 K/mm3 Normal WBC 5.9 LAB L100.1200 4.2-5.4 M/mm3 Low RBC 3.44 LAB L100.1300 12.0-15.0 g/dl Low HGB 10.6 LAB L100.1400 37-47 % Low HCT 32.3 LAB L100.1500 81-99 fL Normal MCV 93.9 LAB L100.1600 27.0-32.0 pg Normal MCH 30.8 LAB L100.1700 32-36 g/gl Normal MCHC 32.8 LAB L100.1810 11.6-14.6 % Normal RDW CV 14.1 LAB L100.1820 35.1-43.9 fl High RDW SD 48.1 LAB L100.1900 150-450 K/mm3 Normal PLT 320 LAB L100.2000 6.2-12.0 fl Normal MPV 9.2 LAB L100.2100 47-70 % Normal NEUT% 52.0 LAB L100.2200 19-41 % Normal LY% 39.1 LAB L100.2300 0-10 % Normal MONO% 6.7 LAB L100.2400 0-5 % Normal EO% 1.7 LAB L100.2500 0-1 % Normal BASO% 0.5 LAB L100.2550 0.0-0.9 % Normal IM GRAN % 0.000 Result Comment: IG% - Immature Granulocytes (promyelocytes, myelocytes and metamyelocytes) > 1% indicates that a LEFT SHIFT is Present. LAB L100.2620 2.0-7.7 X10 3/uL Normal Absolute Neut 3.1 LAB L100.2720 0.83-4.51 X10 3/ul Normal Absolute Lymph 2.32 Performed By: #### L100.0100 #### [facility] [address] [place], [address] COMPREHENSIVE METABOLIC Collected: 05/10/2017 Status: F Source: [place] [facility] 6:54 AM [facility] REPOSITORY Order Comment: Send Results To: PCP, Dr. Barakat Reason for Laboratory Test Hypokalemia Reason for Laboratory Test Hypophosphatemia Reason for Laboratory Test Hypomagnesemia SEND RESULTS TO DR. NEGRON WELL TYPE CODE TESTS RESULT OUT OF RANGE REFERENCE UNITS LAB L501.0100 70-110 mg/dL High GLU 269 Result Comment: Glucose result greater than or equal to 200 mg/dL suggests DIABETES MELLITUS per A.D.A. criteria. LAB L501.1000 7-18 mg/dL High BUN 29 LAB L501.1100 0.55-1.02 mg/dL Normal CREAT,SERUM 0.61 Result Comment: The validity of the calculated GFR AND GFRAA in patients over 70 years has not been determined. Clinical correlation is essential. LAB L501.1110 >60 mL/min Normal EST GFR 112 Result Comment: Non- GFR Calc LAB L501.1115 >60 mL/min Normal EST GFR - AA 136 Result Comment: GFR Calc LAB L501.1300 10-20 RATIO High BUN/CRE 47.9 LAB L501.1500 6.4-8.2 g/dL T Normal PROT 7.3 LAB L501.1800 3.4-5.0 g/dL Low ALB 3.2 Result Comment: Please note revised Albumin AND Globulin reference range effective 2017. LAB L501.1950 2.2-4.2 g/dL Normal GLOB 4.1 LAB L501.2000 0.9-2.4 RATIO Low A/G 0.8 LAB L501.2200 8.5-10.1 mg/dL Low CA 8.4 LAB L501.4100 15-37 U/L Low AST 11 LAB L501.4305 45-117 U/L Normal ALK P 80 LAB L501.4405 12-78 U/L Normal ALT 20 LAB L501.4600 0.20-1.00 mg/dL Normal T BILI 0.30 LAB L501.5300 136-145 mmol/L Low NA 133 LAB L501.5600 3.5-5.1 mmol/L Normal K 4.0 LAB L501.5900 98-107 mmol/L Low CL 97 LAB L501.6100 21.0-32.0 mmol/L Normal CO2 28.0 LAB L501.6200 5-15 Normal GAP 8 Performed By: #### L500.4050, L501.2300, L501.5200 #### [facility] [address] [place], [address] PHOSPHORUS Collected: 05/10/2017 Status: F Source: [place] 6:54 AM [facility] REPOSITORY Order Comment: Send Results To: PCPDr. Barakat Reason for Laboratory Test Hypokalemia Reason for Laboratory Test Hypophosphatemia Reason for Laboratory Test Hypomagnesemia SEND RESULTS TO DR. NEGRON WELL TYPE CODE TESTS RESULT OUT OF RANGE REFERENCE UNITS LAB L501.2300 2.5-4.9 mg/dL Normal PHOS 3.6 Performed By: #### L500.4050, L501.2300, L501.5200 #### [facility] [address] [place], [address] MAGNESIUM Collected: 05/10/2017 Status: F Source: [place] 6:54 AM [facility] [place] REPOSITORY Order Comment: Send Results To: Dr. Roshni GIBBONS Reason for Laboratory Test Hypokalemia Reason for Laboratory Test Hypophosphatemia Reason for Laboratory Test Hypomagnesemia SEND RESULTS TO DR. NEGRON WELL TYPE CODE TESTS RESULT OUT OF RANGE REFERENCE UNITS LAB L501.5200 1.6-2.6 mg/dL Low MG 1.2 Result Comment: Please note revised Magnesium reference range effective 2017. Performed By: #### L500.4050, L501.2300, L501.5200 #### [facility] [address] [place], [address] HOSP Observed: 05/10/2017 Status: COMPLETED Source: [place] 12:00 AM [facility] REPOSITORY Patient Update ([place]) PEDRO LUIS WILCOX ([id number]) 1970 F Date Time Provider Department 05/10/17 EMRE MCDONOUGH) DANYEL During your visit today, we recorded the following information about you: Emre Mcdonough RN 05/10/2017 2:54 PM Signed IRB# [id number]. ?Randomized on: 01/28/2017. ?ARM: Blinded. Reporting Period: 04/26/17 - 06/10/17: ?? Patient is here?for Cycle #5. ?Physical exam, toxicities, labs and medications reviewed with Clifford Barakat, DO Patient meets protocol requirements for treatment. Patient will continue with Cycle #5 on ABT-888/Placebo monotherapy. ? ECOG Score: 0- Fully active, able to carry on all pre-disease performance w/o restriction.? ?? Toxicities: CTCAE V. 4 ?? Nausea, denies any today. Fatigue, grade 2, Definitely Related. Patient continues with fatigue but better since not working. Sore throat, denies/resoved as discharge from hospital visit on 04/26/17. Neuropathy, grade 1, in finger tips, Definitely related. No change in lower extremities. ? Denies other C/O's ? Labs earlier today drawn at [facility]: CBC Hgb 10.6, grade 1, definitely related Mg, 1.2, grade 1, Unlikely Related Hyponatremia, 133, grade 1, Unlikely Related Glucose, 269, non-fasting, grade 3, Unrelated. Not considered an AZ. Hypocalcemia, 8.4, grade 1, Unlikely Related hypoalbuminemia, 3.2, grade 1, Unlikely Related ?? Menopausal Status: Post Contraception: Hysterectomy LMP: na ?? Research Labs: (Time/Type/Sent to): ?None? QOL / Questionnaires: N/A? ?? The patient returned study medication diary and 2 bottles of ?Veliparib vs Placebo with 0 and 16 ?capsules remaining. ?Per diary, patient missed 4 and 1/2 days of treatment due to grade 3 N/V this past cycle (see note 05/02/17) Patient held study pills at that time. Patient is compliant with study medication self administration as protocol states to hold medication for grade 3 or higher AE's and resume once recovered back to grade 1 or lower which was done. Patient aware that the Cisplatin will be discontinued at this point since she has had 3 hospital admissions for grade 3 N/V that are Definitely related to Cisplatin. Patient will continue on study pills as monotherapy per protocol. Dr. Barakat does not feel the study pills are contributing at this time and no dose reduction needed for those at this time. Questions were answered and patient agreeable with this plan. [place] order-- The patient was given a new study medication diary and the current?bottles of Veliparib vs Placebo with 16?capsules remaining and an new bottle with 64 capsules as dispensed by the pharmacy. Instructed to return the diary and medication bottle with any remaining medication at next study visit. Use of the study medication diary and dosing instructions were reviewed with the patient. ??The patient aware to start study pills tomorrow as the start of Cycle #5. Re-Consent for Revision #1 also done at this visit. See Consent note. Reviewed timeline going forward. The next 2 appointments made and patient to schedule the CT's and bone scan prior to the 06/21/17 office visit. She will schedule at the [facility]. Patient has orders with her. Patient agreeable with this plan. She has contact numbers if she needs anything in the interim. Emre Mcdonough RN Allergies As of Date: 05/10/2017 (No Known Allergies) Date Reviewed: 05/10/2017 Reviewed by: Orlando Lanier (Tiffanie) TIFFANIE Langston - Fully Assessed Reason for Visit: Clinical Trial Nurse Note [Other] Cmt: S1416 Prescriptions as of 05/10/2017 Sig: IV CONTRAST (RADIOLOGY PROCED* CT Chest ABD/PEL-Inject, intr* ENTERIC CONTRAST (RADIOLOGY P* For CT CHESTABD/PEL W IVCON R* METOCLOPRAMIDE 10 MG TABLET Take 1 tablet by mouth every * LORAZEPAM 1 MG TABLET Take 1 tablet by mouth every * LIDOCAINE-PRILOCAINE 2.5 %-2.* Apply 1 application to affect* CITALOPRAM 20 MG TABLET Take 1 tablet by mouth once d* CLONAZEPAM 0.5 MG TABLET 1 tablet twice daily. PRN LORAZEPAM 0.5 MG TABLET 1 tablet twice daily. Prn NITROFURANTOIN MONOHYDRATE AND * Take 100 mg by mouth twice da* EMPAGLIFLOZIN 10 MG TABLET Take 10 mg by mouth once gamaliel* VITAMIN B COMPLEX CAPSULE Take 1 capsule by mouth twice* MOMETASONE-FORMOTEROL HFA 200* Inhale 2 Puffs as instructed * CREON ORAL Take 6,000 Units by mouth. Wi* MOBIC ORAL Take 10 mg by mouth once gamaliel* CELEBREX ORAL Take 1 capsule by mouth twice* OMEPRAZOLE 40 MG CAPSULE,PRO* Take 1 capsule by mouth twice* VALACYCLOVIR 500 MG TABLET Take 500 mg by mouth as neede* ERGOCALCIFEROL (VITAMIN D2) 5* Take 50,000 Units by mouth on* * BUPROPION HCL SR 150 MG TABLE* Take 1 tablet by mouth twice * * INSULIN GLARGINE 100 UNIT/ML * Take 50 in am and 70 units in* * HUMALOG KWIKPEN 100 UNIT/ML S* 15 in am, 15 noon, 20 in philip Problem List As Of Date 05/10/2017 Noted Resolved THYROID NODULE [E04.1] INVALID FOR* More... Anxiety State, Unspecified [F41.1] 01/22/2009 Depressive Disorder, not Elsewhere Classified [* Priority: Moderate More... DM w/o complication type II, uncontrolled [E11.*INVALID FOR* Priority: Severe More... Other Malaise and Fatigue [R53.81, R53.83] INVALID FOR*01/22/2009 More... HYPERLIPIDEMIA NEC/NOS [E78.5] INVALID FOR* FIBROMYALGIA [[id number]] INVALID FOR* Priority: Moderate OVERWEIGHT [E66.9] INVALID FOR* OTHER HAMMER TOE [M20.40] INVALID FOR* More... URIN TRACT INFECTION RECURRENT [N39.0] INVALID FOR*01/21/2016 More... GENITAL HERPES NOS [A60.00] INVALID FOR* Tobacco Use Disorder [F17.200] INVALID FOR* Priority: Moderate More... CONGENITAL PES PLANUS [Q66.50] INVALID FOR* Displacement of Lumbar Intervertebral Disc with*INVALID FOR* Priority: Moderate More... More... Routine Gynecological Examination [Z01.419] INVALID FOR* Class: Chronic More... 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*INVALID FOR* Malignant neoplasm metastatic to left lung (HCC*INVALID FOR* Examination of participant in clinical trial [Z*INVALID FOR* Visit Notes: >> Emre (Rn) Ceasar Francisca May 10, 2017 2:29 PM Status: Signed IRB# [id number]. ?Randomized on: 01/28/2017. ?ARM: Blinded. Reporting Period: 04/26/17 - 06/10/17: ?? Patient is here?for Cycle #5. ?Physical exam, toxicities, labs and medications reviewed with Clifford Barakat, DO Patient meets protocol requirements for treatment. Patient will continue with Cycle #5 on ABT-888/Placebo monotherapy. ? ECOG Score: 0- Fully active, able to carry on all pre-disease performance w/o restriction.? ?? Toxicities: CTCAE V. 4 ?? Nausea, denies any today. Fatigue, grade 2, Definitely Related. Patient continues with fatigue but better since not working. Sore throat, denies/resoved as discharge from hospital visit on 04/26/17. Neuropathy, grade 1, in finger tips, Definitely related. No change in lower extremities. ? Denies other C/O's ? Labs earlier today drawn at [facility]: CBC Hgb 10.6, grade 1, definitely related Mg, 1.2, grade 1, Unlikely Related Hyponatremia, 133, grade 1, Unlikely Related Glucose, 269, non-fasting, grade 3, Unrelated. Not considered an AZ. Hypocalcemia, 8.4, grade 1, Unlikely Related hypoalbuminemia, 3.2, grade 1, Unlikely Related ?? Menopausal Status: Post Contraception: Hysterectomy LMP: na ?? Research Labs: (Time/Type/Sent to): ?None? QOL / Questionnaires: N/A? ?? The patient returned study medication diary and 2 bottles of ?Veliparib vs Placebo with 0 and 16 ?capsules remaining. ?Per diary, patient missed 4 and 1/2 days of treatment due to grade 3 N/V this past cycle (see note 05/02/17) Patient held study pills at that time. Patient is compliant with study medication self administration as protocol states to hold medication for grade 3 or higher AE's and resume once recovered back to grade 1 or lower which was done. Patient aware that the Cisplatin will be discontinued at this point since she has had 3 hospital admissions for grade 3 N/V that are Definitely related to Cisplatin. Patient will continue on study pills as monotherapy per protocol. Dr. Barakat does not feel the study pills are contributing at this time and no dose reduction needed for those at this time. Questions were answered and patient agreeable with this plan. [place] order-- The patient was given a new study medication diary and the current?bottles of Veliparib vs Placebo with 16?capsules remaining and an new bottle with 64 capsules as dispensed by the pharmacy. Instructed to return the diary and medication bottle with any remaining medication at next study visit. Use of the study medication diary and dosing instructions were reviewed with the patient. ??The patient aware to start study pills tomorrow as the start of Cycle #5. Re-Consent for Revision #1 also done at this visit. See Consent note. Reviewed timeline going forward. The next 2 appointments made and patient to schedule the CT's and bone scan prior to the 06/21/17 office visit. She will schedule at the [facility]. Patient has orders with her. Patient agreeable with this plan. She has contact numbers if she needs anything in the interim. Emre Mcdonough RN Encounter Status:Closed by EMRE MCDONOUGH on 05/10/17 HOSP Observed: 05/02/2017 Status: COMPLETED Source: [place] 12:00 AM [facility] REPOSITORY Patient Update (DANYEL) PEDRO LUIS WILCOX ([id number]) 1970 F Date Time Provider Department 05/02/17 EMRE MCDONOUGH) DANYEL During your visit today, we recorded the following information about you: Emre Mcdonough RN 10/25/2017 12:32 PM Addendum Clinical Trial Note for S1416: Patient was in [facility] from 04/24/17 - 04/26/17. Discharge diagnosis per report: 1--Intractable nausea and vomiting, grade 3, Definitely related. Patient treated with IV fluids and antiemetics. Able to tolerate a regular diet at discharge. No AZ needed per SHIRA section of protocol. 2-Hypokalemia, 3.1, grade 1, Unlikely Related Hypomagnesemia, 1.0, grade 2, Unlikely Related Hypophosphatemia. 2.1, grade 2, Unlikely Related Patient given IV electrolyte replacement during stay and discharged on supplements. 3-Acute viral bronchitis and acute sinusitis, grade 2 for both Unlikely related.Blood cultures negative. Nasopharyngeal culture revealed sensitive to Levaquin and discharged on po for 7 days. Other labs noted: Anemia, 9.2, grade 2, Definitely Related Neutropenia, 1.9, grade 2, Definitely Related Hypocalcemia, 6.8, grade 3, Unlikely Related Hypoalbuminemia, 2.4, grade 2, Unlikely Related Hyperglycemia, 291, non-fasting, grade 3,Unrelated (higher on 04/26/16 during hospital stay than when admitted)-this did not cause stay to be extended. Other findings: Chills, grade 1, Unrelated Dehydration, grade 2, Definitely related. Above reviewed/discussed with Dr. Barakat and agreed no AZ needed per protocol parameters. Emre Mcdonough RN Allergies As of Date: 05/02/2017 (No Known Allergies) Date Reviewed: 04/19/2017 Reviewed by: Suze Ramirez RN - Fully Assessed Reason for Visit: Clinical Trial Note [Other] Cmt: S1416 Prescriptions as of 05/02/2017 Sig: X METOCLOPRAMIDE 10 MG TABLET Take 1 tablet by mouth every * LORAZEPAM 1 MG TABLET Take 1 tablet by mouth every * LIDOCAINE-PRILOCAINE 2.5 %-2.* Apply 1 application to affect* CITALOPRAM 20 MG TABLET Take 1 tablet by mouth once d* CLONAZEPAM 0.5 MG TABLET 1 tablet twice daily. PRN NITROFURANTOIN MONOHYDRATE AND * Take 100 mg by mouth twice da* EMPAGLIFLOZIN 10 MG TABLET Take 10 mg by mouth once gamaliel* VITAMIN B COMPLEX CAPSULE Take 1 capsule by mouth twice* CREON ORAL Take 6,000 Units by mouth. Wi* X LORAZEPAM 0.5 MG TABLET 1 tablet twice daily. Prn X MOMETASONE-FORMOTEROL HFA 200* Inhale 2 Puffs as instructed * X MOBIC ORAL Take 15 mg by mouth once gamaliel* X CELEBREX ORAL Take 1 capsule by mouth twice* X OMEPRAZOLE 40 MG CAPSULE,PRO* Take 1 capsule by mouth twice* VALACYCLOVIR 500 MG TABLET Take 500 mg by mouth as neede* ERGOCALCIFEROL (VITAMIN D2) 5* Take 50,000 Units by mouth on* X * BUPROPION HCL SR 150 MG TABLE* Take 1 tablet by mouth twice * * INSULIN GLARGINE (U-100) 100 * Take 50 in am and 70 units in* * HUMALOG KWIKPEN (U-100) INSUL* 15 in am, 15 noon, 20 in philip Problem List As Of Date 05/02/2017 Noted Resolved THYROID NODULE [E04.1] INVALID FOR* More... Anxiety State, Unspecified [F41.1] 01/22/2009 Depressive Disorder, not Elsewhere Classified [* Priority: Moderate More... DM w/o complication type II, uncontrolled [E11.*INVALID FOR* Priority: Severe More... Other Malaise and Fatigue [R53.81, R53.83] INVALID FOR*01/22/2009 More... HYPERLIPIDEMIA NEC/NOS [E78.5] INVALID FOR* FIBROMYALGIA [[id number]] INVALID FOR* Priority: Moderate OVERWEIGHT [E66.9] INVALID FOR* OTHER HAMMER TOE [M20.40] INVALID FOR* More... URIN TRACT INFECTION RECURRENT [N39.0] INVALID FOR*01/21/2016 More... GENITAL HERPES NOS [A60.00] INVALID FOR* Tobacco Use Disorder [F17.200] INVALID FOR* Priority: Moderate More... CONGENITAL PES PLANUS [Q66.50] INVALID FOR* Displacement of Lumbar Intervertebral Disc with*INVALID FOR* Priority: Moderate More... More... Routine Gynecological Examination [Z01.419] INVALID FOR* Class: Chronic More... 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*INVALID FOR* Malignant neoplasm metastatic to left lung (HCC*INVALID FOR* Examination of participant in clinical trial [Z*INVALID FOR* Visit Notes: >> Emre Jacobson) Ceasar Mon May 02, 2017 3:54 PM Status: Addendum Clinical Trial Note for S1416: Patient was in [facility] from 04/24/17 - 04/26/17. Discharge diagnosis per report: 1--Intractable nausea and vomiting, grade 3, Definitely related. Patient treated with IV fluids and antiemetics. Able to tolerate a regular diet at discharge. No AZ needed per SHIRA section of protocol. 2-Hypokalemia, 3.1, grade 1, Unlikely Related Hypomagnesemia, 1.0, grade 2, Unlikely Related Hypophosphatemia. 2.1, grade 2, Unlikely Related Patient given IV electrolyte replacement during stay and discharged on supplements. 3-Acute viral bronchitis and acute sinusitis, grade 2 for both Unlikely related.Blood cultures negative. Nasopharyngeal culture revealed sensitive to Levaquin and discharged on po for 7 days. Other labs noted: Anemia, 9.2, grade 2, Definitely Related Neutropenia, 1.9, grade 2, Definitely Related Hypocalcemia, 6.8, grade 3, Unlikely Related Hypoalbuminemia, 2.4, grade 2, Unlikely Related Hyperglycemia, 291, non-fasting, grade 3,Unrelated (higher on 04/26/16 during hospital stay than when admitted)-this did not cause stay to be extended. Other findings: Chills, grade 1, Unrelated Dehydration, grade 2, Definitely related. Above reviewed/discussed with Dr. Barakat and agreed no AZ needed per protocol parameters. 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 Today's visit includes: patient not present TOPICS ADDRESSED: Short-term disability; Per conversation with [employer] last month, patient needs her most recent office visit notes along with a a letter from her doctor stating she needs to be off work through September 2017 sent to [facility] so they can continue her leave past 05/07/17. was encouraged to send this information approximately one week prior to 05/07/17. Letter and past two office visit notes were sent. PLAN: Continue follow up as needed F/U APPOINTMENT: ANNAMARIA Nunez Observed: 04/29/2017 Status: COMPLETED Source: [place] 12:00 [facility] REPOSITORY Letter Text Clifford Barakat D.O. Hematology AND Medical Oncology/[address] [address] [address] [place], [place] [address] April 29, 2017 To Whom It May Concern: This letter is to certify that Mrs. Pedro Luis Wilcox is a patient under my care for metastatic, triple-negative breast cancer. She is currently undergoing treatment on a clinical trial utilizing cisplatin. This drug is highly emetogenic and because of her history of diabetes and gastroparesis, she suffers from significant nausea and vomiting which have led to the need for hospitalization for hydration and anti-emetic therapy after her first two cycles of treatment. She would therefore benefit by being off work through September of 2017. ? Please feel free to contact me at any time with any questions or concerns. Sincerely, DO STEFAN Mina Observed: 04/29/2017 Status: COMPLETED Source: [place] 12:00 [facility] REPOSITORY Social Work (DANYEL) PEDRO LUIS WILCOX ([id number]) 1970 F Date Time Provider Department 04/29/17 ISHA SERVIN) DANYEL During your visit today, we recorded the following information about you: ANNAMARIA Schroeder 04/29/2017 9:26 AM Signed SOCIAL WORK FOLLOW UP NOTE: [facility] Date of service: April 29, 2017 Pedro Luis Wilcox is being seen for a follow up social work visit. Today's visit includes: patient not present TOPICS ADDRESSED: Short-term disability; Per conversation with [facility] last month, patient needs her most recent office visit notes along with a a letter from her doctor stating she needs to be off work through September 2017 sent to [facility] so they can continue her leave past 05/07/17. was encouraged to send this information approximately one week prior to 05/07/17. Letter and past two office visit notes were sent. PLAN: Continue follow up as needed F/U APPOINTMENT: PRN ANNAMARIA Schroeder Allergies As of Date: 04/29/2017 (No Known Allergies) Date Reviewed: 04/19/2017 Reviewed by: Suze Ramirez RN - Fully Assessed Reason for Visit: Social Work Services [507] Cmt: disability Prescriptions as of 04/29/2017 Sig: METOCLOPRAMIDE 10 MG TABLET Take 1 tablet by mouth every * LORAZEPAM 1 MG TABLET Take 1 tablet by mouth every * LIDOCAINE-PRILOCAINE 2.5 %-2.* Apply 1 application to affect* CITALOPRAM 20 MG TABLET Take 1 tablet by mouth once d* CLONAZEPAM 0.5 MG TABLET 1 tablet twice daily. PRN LORAZEPAM 0.5 MG TABLET 1 tablet twice daily. Prn NITROFURANTOIN MONOHYDRATE AND * Take 100 mg by mouth twice da* EMPAGLIFLOZIN 10 MG TABLET Take 10 mg by mouth once gamaliel* VITAMIN B COMPLEX CAPSULE Take 1 capsule by mouth twice* MOMETASONE-FORMOTEROL HFA 200* Inhale 2 Puffs as instructed * CREON ORAL Take 6,000 Units by mouth. Wi* MOBIC ORAL Take 10 mg by mouth once gamaliel* CELEBREX ORAL Take 1 capsule by mouth twice* OMEPRAZOLE 40 MG CAPSULE,PRO* Take 1 capsule by mouth twice* VALACYCLOVIR 500 MG TABLET Take 500 mg by mouth as neede* ERGOCALCIFEROL (VITAMIN D2) 5* Take 50,000 Units by mouth on* * BUPROPION HCL SR 150 MG TABLE* Take 1 tablet by mouth twice * * INSULIN GLARGINE 100 UNIT/ML * Take 50 in am and 70 units in* * HUMALOG KWIKPEN 100 UNIT/ML S* 15 in am, 15 noon, 20 in philip Problem List As Of Date 04/29/2017 Noted Resolved THYROID NODULE [E04.1] INVALID FOR* More... Anxiety State, Unspecified [F41.1] 01/22/2009 Depressive Disorder, not Elsewhere Classified [* Priority: Moderate More... DM w/o complication type II, uncontrolled [E11.*INVALID FOR* Priority: Severe More... Other Malaise and Fatigue [R53.81, R53.83] INVALID FOR*01/22/2009 More... HYPERLIPIDEMIA NEC/NOS [E78.5] INVALID FOR* FIBROMYALGIA [[id number]] INVALID FOR* Priority: Moderate OVERWEIGHT [E66.9] INVALID FOR* OTHER HAMMER TOE [M20.40] INVALID FOR* More... URIN TRACT INFECTION RECURRENT [N39.0] INVALID FOR*01/21/2016 More... GENITAL HERPES NOS [A60.00] INVALID FOR* Tobacco Use Disorder [F17.200] INVALID FOR* Priority: Moderate More... CONGENITAL PES PLANUS [Q66.50] INVALID FOR* Displacement of Lumbar Intervertebral Disc with*INVALID FOR* Priority: Moderate More... More... Routine Gynecological Examination [Z01.419] INVALID FOR* Class: Chronic More... 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*INVALID FOR* Malignant neoplasm metastatic to left lung (HCC*INVALID FOR* Examination of participant in clinical trial [Z*INVALID FOR* Encounter Status:Closed by ISHA SERVIN on 04/29/17 DISCHARGE SUMMARY Observed: 04/26/2017 Status: F Source: [place] 5:02 PM [facility] [place] REPOSITORY [facility] Medical Records Department [address] [place] [address] Discharge Summary 04/26/17 1649 MR#: [id number] Acct: [id number] Name: PEDRO LUIS WILCOX Rep #: [id number] : 1970 46 From: Varsha Quick MD PCP: Raza VELAZQUEZ,Jacinto Status: DIS IN Y Location: MS3 [id number] Discharge Date and Diagnosis Date of Admission: 04/24/17 Date of Discharge: 04/26/17 - Primary Discharge Diagnosis #1 intractable nausea and vomiting secondary to chemotherapy. #2 hypokalemia/hypomagnesemia/hypophosphatemia. #3 acute viral bronchitis/acute sinusitis. - Secondary Discharge Diagnosis Chronic Problems HTN (hypertension) (Chronic) DM (diabetes mellitus), type 2, uncontrolled with complications (Chronic) Goiter (Chronic) GERD (gastroesophageal reflux disease) (Chronic) Abnormal ECG (Chronic) Anxiety and depression (Chronic) Invasive ductal carcinoma of breast (Chronic) With metastatic disease to the lung Hyperlipidemia (Chronic) Hospital Course and Treatment Imaging Results: Clinical Impression(s) from Imaging Studies Chest X-Ray 04/24/17 12:36 IMPRESSION: Stable atelectasis or scarring of the right lower lobe. Electronically Signed: Reed Samaniego MD at 16:49 EST , Service support , Operations: None, - - 12/30/13 Muscle Biopsy Procedures: None Summary of Care Provided: Patient seen and examined on the day of discharge and appeared to be stable to be discharged home. She has no more nausea vomiting and she has been tolerating diet. She denies fever chills. Denied cough or sputum production. Vital signs are stable, remained afebrile. - Physical Exam General: Alert, Oriented x3, Cooperative, No apparent distress. HEENT: Atraumatic, PERRLA, EOMI. Neck: Supple, No JVD, Negative Carotid Bruits, Trachea Midline, Thyroid Normal. Lungs: Diminished breath sounds bilateral, otherwise clear, No rhonchi, No wheeze, No rales. Cardiovascular: Regular rate, Regular Rhythm, Normal S1, Normal S2, PMI Normal. Abdomen: Bowel Sounds Present, Soft, Non Tender, Non-Distended, No Hepato-splenomegaly. Extremities: No clubbing, No cyanosis, No edema Skin: No rashes, No breakdown Neurological: Neuro grossly intact Vital Signs are stable. Hospital course: This is a 46 years old female patient admitted because of nausea and vomiting, lightheadedness, cough and sinus pain and she was found to have intractable nausea and vomiting secondary to chemotherapy, electrolyte abnormalities as well as acute viral bronchitis and sinusitis. #1 intractable nausea and vomiting: Secondary to chemotherapy that she was receiving for metastatic breast cancer. Treated with IV fluids, IV antiemetics and electrolyte replacement. Her symptoms improved and she has been able to tolerate regular diet. Discharged home in a stable condition. #2 electrolyte abnormalities/hypokalemia/hypomagnesemia/hypophosphatemia: Secondary to intractable nausea and vomiting as well as chemotherapy. She received aggressive replacement of her potassium, magnesium and phosphorus intravenously and in spite of that, her electrolytes remained slightly low. Upon discharge, her potassium is 3.4, phosphorus of 2.1 and magnesium 1.6. Started on oral replacement with potassium chloride, magnesium oxide and Neutra-Phos. Order given to repeat BMP, serum magnesium and phosphorus in 1 week. #3 acute viral bronchitis/possible bacterial sinusitis: Treated with n IV Zosyn. Nasopharyngeal culture revealed staph epidermidis, sensitive to Levaquin. Blood culture showed no growth in 48 hours. Respiratory syncytial virus was positive on a respiratory panel. She was discharged on Levaquin 750 mg p.o. daily for 7 days. #4 metastatic breast cancer: Currently on chemotherapy with cisplatin, and ruled in phase 3 randomized trial comparing cisplatin with placebo to cisplatin plus oral PARP inhibitor. Last chemotherapy was last Tuesday, 5 days ago. She follows up with Dr. Barakat as outpatient. Patient discharged home in a stable medical condition, discharged on Levaquin as above, discharged on potassium, magnesium and phosphorus supplement as above, order given to repeat BMP, CBC, serum magnesium and phosphorus in 1 week, follow- up with PCP in 1 week and follow-up with oncology as scheduled. This note was generated with [employer] dictation software. It may contain incorrect words, spelling, and punctuation that were not noted in checking the note before signing. Weight Bearing Status: Weight bearing as tolerated Call your doctor if you observe: Fever of 101 or Higher, Shortness of breath, Dizziness, Fainting spells, Chest pain, Increased palpitations (irregular heartbeat), Uncontrolled pain Home Medications: Medications to take at Discharge BuPROPion (SR) [Wellbutrin Sr] 150 mg PO BID 02/12/13 Insulin Lispro [Humalog] 15 unit SQ TID 02/12/13 Valacyclovir HCl [Valtrex] 500 mg PO DAILY PRN PRN 02/12/13 Insulin Glargine [Lantus SoloStar Pen] 35 units SC BID 01/07/14 Meloxicam [Mobic] 15 mg PO DAILY #30 tablet 05/18/15 Empagliflozin [Jardiance] 10 mg PO DAILY 12/23/16 Lipase/Protease/Amylase [Creon Dr 6,000 Units Capsule] 6,000 each PO TID 12/23/16 Lorazepam [Ativan] 0.5 mg PO BID PRN PRN 12/23/16 Vitamin B Complex 1 each PO BID 12/23/16 Ergocalciferol [Vitamin D] 50,000 unit PO Q7D 03/11/17 Metoclopramide [Reglan] 10 mg PO Q6H PRN PRN #30 tablet 03/11/17 ProMETHAzine [Phenergan Suppository] 25 mg RECTAL Q6H PRN PRN #10 suppos. 03/11/17 Levofloxacin [Levaquin] 750 mg PO DAILY #7 tab 04/26/17 Magnesium Oxide [Magnesium] 400 mg PO BID #30 tab 04/26/17 Na Biphos/Potassium Phosphate [Neutra-Phos Packet] 1 packet PO TID #14 packet 04/26/17 Potassium Chloride [K-Dur] 20 meq PO BID #30 tab 04/26/17 Following Prescrptions Were Given to Patient: Levofloxacin [Levaquin] 750 mg PO DAILY #7 tab Magnesium Oxide [Magnesium] 400 mg PO BID #30 tab Potassium Chloride [K-Dur] 20 meq PO BID #30 tab Na Biphos/Potassium Phosphate [Neutra-Phos Packet] 1 packet PO TID #14 packet Primary Care Physician: Jacinto Person MD [Primary Care Provider] - Please follow up with your Primary Care Physician in: 1 week. Please Follow Up With: Clifford Barakat DO When: as scheduled. Disposition: Home Minutes spent on discharge:: 34 Patient Condition:: Stable Meaningful Use Info Meaningful Use Diagnoses (Choose all that apply): None applicable Code Visit Inpatient E AND M: 16100 Disch Hosp 04/26/17 1702 <Electronically signed by Varsha Quick MD> Date Varsha Quick MD Cosigner Signature (if applicable): Date CC: Jacinto Person MD; Vasrha Quick; Clifford Barakat DO Signed BEDSIDE GLUCOSE Collected: 04/26/2017 Status: F Source: [place] 11:45 AM [facility] [place] REPOSITORY TYPE CODE TESTS RESULT OUT OF REFERENCE UNITS RANGE LAB L501.080 70-110 mg/dL High BEDSIDE GLU 291 Result Comment: MANAGEMENT OF PATIENT CARE PER NURSING PROTOCOL Performed By: #### L501.080 #### [facility] Point of Care [address] [place] [address] DISCHARGE INSTRUCTION Observed: 04/26/2017 Status: F Source: [place] 10:27 AM [facility] [place] REPOSITORY [facility] Medical Records Department [address] [place] [address] Instructions for Home/Discharge Instructions 04/26/17 1026 MR#: [id number] Acct: [id number] Name: PEDRO LUIS WILCOX Rep #: [id number] : 1970 46 From: Varsha Quick MD PCP: Jacinto Person MD Status: ADM IN - Discharge Diagnoses Current Active Problems: Current Active and Chronic Problems Acute bronchitis (Acute) Sinusitis (Acute) Hypotension (Acute) Hypophosphatemia (Acute) Hypomagnesemia (Acute) You will use the following diet at home:: Calorie/Carbohydrate Controlled (specify 1200, 1400, etc) - 1800 jerica Your food should be the consistency of: Regular Weight Bearing Status: Weight bearing as tolerated Call your doctor if you observe: Fever of 101 or Higher, Shortness of breath, Dizziness, Fainting spells, Chest pain, Increased palpitations (irregular heartbeat), Uncontrolled pain Allergies/Adverse Reactions: Allergies No Known Allergies Allergy (Verified 04/24/17 11:37) Medications to take at Discharge BuPROPion (SR) [Wellbutrin Sr] 150 mg PO BID 02/12/13 Insulin Lispro [Humalog] 15 unit SQ TID 02/12/13 Valacyclovir HCl [Valtrex] 500 mg PO DAILY PRN PRN 02/12/13 Insulin Glargine [Lantus SoloStar Pen] 35 units SC BID 01/07/14 Meloxicam [Mobic] 15 mg PO DAILY #30 tablet 05/18/15 Empagliflozin [Jardiance] 10 mg PO DAILY 12/23/16 Lipase/Protease/Amylase [Creon Dr 6,000 Units Capsule] 6,000 each PO TID 12/23/16 Lorazepam [Ativan] 0.5 mg PO BID PRN PRN 12/23/16 Vitamin B Complex 1 each PO BID 12/23/16 Ergocalciferol [Vitamin D] 50,000 unit PO Q7D 03/11/17 Metoclopramide [Reglan] 10 mg PO Q6H PRN PRN #30 tablet 03/11/17 ProMETHAzine [Phenergan Suppository] 25 mg RECTAL Q6H PRN PRN #10 suppos. 03/11/17 Levofloxacin [Levaquin] 750 mg PO DAILY #7 tab 04/26/17 Magnesium Oxide [Magnesium] 400 mg PO BID #30 tab 04/26/17 Na Biphos/Potassium Phosphate [Neutra-Phos Packet] 1 packet PO TID #14 packet 04/26/17 Potassium Chloride [K-Dur] 20 meq PO BID #30 tab 04/26/17 The following prescriptions were given: Levofloxacin [Levaquin] 750 mg PO DAILY #7 tab Magnesium Oxide [Magnesium] 400 mg PO BID #30 tab Potassium Chloride [K-Dur] 20 meq PO BID #30 tab Na Biphos/Potassium Phosphate [Neutra-Phos Packet] 1 packet PO TID #14 packet Primary Care Physician: Jacinto Person MD [Primary Care Provider] - Please follow up with your Primary Care Physician in: 1 week. Please Follow Up With: Clifford Barakat DO When: as scheduled. 04/26/17 1027 <Electronically signed by Varsha Quick MD> Date Varsha Quick MD CC: Jacinto Person MD BEDSIDE GLUCOSE Collected: 04/26/2017 Status: F Source: [place] 7:21 AM [facility] [place] REPOSITORY TYPE CODE TESTS RESULT OUT OF REFERENCE UNITS RANGE LAB L501.080 70-110 mg/dL High BEDSIDE GLU 143 Result Comment: MANAGEMENT OF PATIENT CARE PER NURSING PROTOCOL Performed By: #### L501.080 #### [facility] Point of Care [address] [place] [address] HH, HEMOGLOBIN AND Collected: 04/26/2017 Status: F Source: [place] HEMATOCRIT 5:40 AM [facility] REPOSITORY TYPE CODE TESTS RESULT OUT OF RANGE REFERENCE UNITS LAB L100.1300 12.0-15.0 g/dl Low HGB 9.2 LAB L100.1400 37-47 % Low HCT 27.6 Performed By: #### L100.0600, L100.2620 #### [facility] [address] [place], [address] ABSOLUTE NEUTROPHIL Collected: 04/26/2017 Status: F Source: [place] COUNT 5:40 AM [facility] [place] REPOSITORY TYPE CODE TESTS RESULT OUT OF REFERENCE UNITS RANGE LAB L100.2620 2.0-7.7 X10 3/uL Low Absolute Neut 1.4 Performed By: #### L100.0600, L100.2620 #### [facility] [address] [place], [address] PHOSPHORUS Collected: 04/26/2017 Status: F Source: [place] 5:40 AM [facility] REPOSITORY TYPE CODE TESTS RESULT OUT OF RANGE REFERENCE UNITS LAB L501.2300 2.5-4.9 mg/dL Low PHOS 2.1 Performed By: #### L501.2300, L501.5200, L501.5600 #### [facility] [address] [place], [address] MAGNESIUM Collected: 04/26/2017 Status: F Source: [place] 5:40 AM [facility] REPOSITORY TYPE CODE TESTS RESULT OUT OF RANGE REFERENCE UNITS LAB L501.5200 1.8-2.4 mg/dL Low MG 1.6 Performed By: #### L501.2300, L501.5200, L501.5600 #### [facility] [address] [place], [address] POTASSIUM Collected: 04/26/2017 Status: F Source: [place] 5:40 AM [facility] REPOSITORY TYPE CODE TESTS RESULT OUT OF RANGE REFERENCE UNITS LAB L501.5600 3.5-5.1 mmol/L Low K 3.4 Performed By: #### L501.2300, L501.5200, L501.5600 #### [facility] [address] [place], [address] BEDSIDE GLUCOSE Collected: 04/25/2017 Status: F Source: [place] 10:26 PM [facility] [place] REPOSITORY TYPE CODE TESTS RESULT OUT OF REFERENCE UNITS RANGE LAB L501.080 70-110 mg/dL High BEDSIDE GLU 237 Result Comment: MANAGEMENT OF PATIENT CARE PER NURSING PROTOCOL Performed By: #### L501.080 #### [facility] Point of Care [address] [place] [address] BEDSIDE GLUCOSE Collected: 04/25/2017 Status: F Source: [place] 4:59 PM [facility] [place] REPOSITORY TYPE CODE TESTS RESULT OUT OF REFERENCE UNITS RANGE LAB L501.080 70-110 mg/dL High BEDSIDE GLU 203 Result Comment: MANAGEMENT OF PATIENT CARE PER NURSING PROTOCOL Performed By: #### L501.080 #### [facility] Point of Care [address] [place] [address] BEDSIDE GLUCOSE Collected: 04/25/2017 Status: F Source: [place] 11:43 AM [facility] REPOSITORY TYPE CODE TESTS RESULT OUT OF REFERENCE UNITS RANGE LAB L501.080 70-110 mg/dL High BEDSIDE GLU 234 Result Comment: MANAGEMENT OF PATIENT CARE PER NURSING PROTOCOL Performed By: #### L501.080 #### [facility] Point of Care [address] [place] [address] BEDSIDE GLUCOSE Collected: 04/25/2017 Status: F Source: [place] 8:26 AM [facility] REPOSITORY TYPE CODE TESTS RESULT OUT OF RANGE REFERENCE UNITS LAB L501.080 70-110 mg/dL Normal BEDSIDE GLU 102 Result Comment: MANAGEMENT OF PATIENT CARE PER NURSING PROTOCOL Performed By: #### L501.080 #### [facility] Point [place] [address] CBC W/DIFF, AUTOMATED Collected: 04/25/2017 Status: F Source: [place] 6:06 AM [facility] REPOSITORY TYPE CODE TESTS RESULT OUT OF RANGE REFERENCE UNITS LAB L100.1000 4.4-11.0 K/mm3 Normal WBC 4.6 LAB L100.1200 4.2-5.4 M/mm3 Low RBC 3.13 LAB L100.1300 12.0-15.0 g/dl Low HGB 9.6 LAB L100.1400 37-47 % Low HCT 29.4 LAB L100.1500 81-99 fL Normal MCV 93.9 LAB L100.1600 27.0-32.0 pg Normal MCH 30.7 LAB L100.1700 32-36 g/gl Normal MCHC 32.7 LAB L100.1810 11.6-14.6 % Normal RDW CV 12.9 LAB L100.1820 35.1-43.9 fl Normal RDW SD 42.6 LAB L100.1900 150-450 K/mm3 High PLT 455 LAB L100.2000 6.2-12.0 fl Normal MPV 8.6 LAB L100.2100 47-70 % Low NEUT% 42.4 LAB L100.2200 19-41 % High LY% 41.3 LAB L100.2300 0-10 % High MONO% 14.1 LAB L100.2400 0-5 % Normal EO% 1.5 LAB L100.2500 0-1 % Normal BASO% 0.7 LAB L100.2550 0.0-0.9 % Normal IM GRAN % 0.000 Result Comment: IG% - Immature Granulocytes (promyelocytes, myelocytes and metamyelocytes) > 1% indicates that a LEFT SHIFT is Present. LAB L100.2620 2.0-7.7 X10 3/uL Low Absolute Neut 1.9 LAB L100.2720 0.83-4.51 X10 3/ul Normal Absolute Lymph 1.88 Performed By: #### L100.0100 #### [facility] [place], [address] COMPREHENSIVE METABOLIC Collected: 04/25/2017 Status: F Source: [place] [facility] 6:06 AM [facility] REPOSITORY TYPE CODE TESTS RESULT OUT OF RANGE REFERENCE UNITS LAB L501.0100 70-110 mg/dL High GLU 115 Result Comment: Fasting Glucose result from 110 to <126 mg/dL suggests IMPAIRED HOMEOSTASIS per A.D.A. criteria. LAB L501.1000 7-18 mg/dL Normal BUN 18 LAB L501.1100 0.55-1.02 mg/dL Low CREAT,SERUM 0.41 Result Comment: The validity of the calculated GFR AND GFRAA in patients over 70 years has not been determined. Clinical correlation is essential. LAB L501.1110 >60 mL/min Normal EST GFR 175 Result Comment: Non- GFR Calc LAB L501.1115 >60 mL/min Normal EST GFR - AA 212 Result Comment: GFR Calc LAB L501.1255 ml/min Normal Estimated CRCL 164.96 LAB L501.1300 10-20 RATIO High BUN/CRE 43.7 LAB L501.1500 6.4-8. g/dL Low 2 T PROT 6.3 LAB L501.1800 3.4-5. g/dL Low 0 ALB 2.4 Result Comment: Please note revised Albumin AND Globulin reference range effective 2017. LAB L501.1950 2.2-4.2 g/dL Normal GLOB 3.9 LAB L501.2000 0.9-2.4 RATIO Low A/G 0.6 LAB L501.2200 8.5-10.1 mg/dL Low CA 6.8 LAB L501.4100 15-37 U/L Low AST 11 LAB L501.4305 45-117 U/L Normal ALK P 73 LAB L501.4405 12-78 U/L Normal ALT 12 LAB L501.4600 0.20-1.00 mg/dL Normal T BILI 0.20 LAB L501.5300 136-145 mmol/L Normal NA 140 LAB L501.5600 3.5-5.1 mmol/L Low K 3.3 LAB L501.5900 98-107 mmol/L Normal CL 103 LAB L501.6100 21.0-32.0 mmol/L Normal CO2 29.0 LAB L501.6200 5-15 Normal GAP 8 Performed By: #### L500.4050, L501.2300, L501.5200 #### [facility] [address] [place], [address] PHOSPHORUS Collected: 04/25/2017 Status: F Source: [place] 6:06 AM [facility] REPOSITORY TYPE CODE TESTS RESULT OUT OF RANGE REFERENCE UNITS LAB L501.2300 2.5-4.9 mg/dL Low PHOS 2.1 Performed By: #### L500.4050, L501.2300, L501.5200 #### [facility] [address] [place], [address] MAGNESIUM Collected: 04/25/2017 Status: F Source: [place] 6:06 AM [facility] REPOSITORY TYPE CODE TESTS RESULT OUT OF RANGE REFERENCE UNITS LAB L501.5200 1.8-2.4 mg/dL Low MG 1.7 Performed By: #### L500.4050, L501.2300, L501.5200 #### [facility] [place], [address] PROTHROMBIN TIME W/INR Collected: 04/25/2017 Status: F Source: [place] 6:06 AM [facility] REPOSITORY TYPE CODE TESTS RESULT OUT OF RANGE REFERENCE UNITS LAB L300.4150 11.7-14.9 SECONDS Normal PROTIME 14.0 LAB L300.4200 Normal INR 1.1 Performed By: #### L300.3900 #### [facility] [address] [place], [address] Observed: 04/25/2017 Status: F Source: [place] LEGIONELLA ANTIGEN 3:40 AM [facility] URINE REPOSITORY Legionella, UR Legionella Antigen result interpretation: Negative Presumptive negative for Legionella pneumophila serogroup 1 antigen in urine, suggesting no recent or current infection. Legionella Ag, Urine Negative (See interpretation below) Performed By: #### M300.4500 #### [facility] [address] [place], [address] STREP Observed: 04/25/2017 Status: F Source: [place] PNEUMONIAE ANTIG(UR,CSF) 3:40 AM [facility] REPOSITORY S pneumo Ag URINE INTERPRETATION Negative Urine Presumptive negative for pneumococcal pneumonia, suggesting no current or recent pneumococcal infection. Infection due to S pneumoniae cannot be ruled out since the antigen present in the sample may be below the detection limit of the test. Strep pneumo Test Negative URINE (See interpretation below) Performed By: #### M300.4600 #### [facility] [address] [place], [address] BEDSIDE GLUCOSE Collected: 04/24/2017 Status: F Source: [place] 10:14 PM [facility] REPOSITORY TYPE CODE TESTS RESULT OUT OF REFERENCE UNITS RANGE LAB L501.080 70-110 mg/dL High BEDSIDE GLU 181 Result Comment: MANAGEMENT OF PATIENT CARE PER NURSING PROTOCOL Performed By: #### L501.080 #### [facility] Point of Care [address] [place] [address] HISTORY AND PHYSICAL Observed: 04/24/2017 Status: F Source: [place] EXAM 5:04 PM [facility] REPOSITORY [facility] Medical Records Department [address] [place] [id number] History and Physical 04/24/17 1220 MR#: [id number] Acct: [id number] Name: PEDRO LUIS WILCOX Rep #: [id number] : 1970 46 From: Radha Begum DO PCP: Jacinto Person MD Status: ADM IN [place] [facility] [id number] Problem List (1) Acute bronchitis Status: Acute (2) Sinusitis Status: Acute (3) Hypotension Status: Acute (4) Hypophosphatemia Status: Acute (5) Hypomagnesemia Status: Acute (6) Dehydration Status: Acute (7) Hypokalemia Status: Acute (8) Intractable nausea and vomiting Status: Acute (9) Sinus tachycardia Status: Acute (10) Abnormal ECG Status: Chronic (11) Anxiety and depression Status: Chronic (12) DM (diabetes mellitus), type 2, uncontrolled with complications Status: Chronic (13) GERD (gastroesophageal reflux disease) Status: Chronic (14) Goiter Status: Chronic (15) HTN (hypertension) Status: Chronic (16) Hyperlipidemia Status: Chronic (17) Invasive ductal carcinoma of breast Status: Chronic Qualifiers: Laterality: right Qualified Code(s): C50.911 - Malignant neoplasm of unspecified site of right female breast Comment: With metastatic disease to the lung (18) Candiduria Status: Resolved (19) Ketonuria Status: Resolved (20) Orthostatic hypotension Status: Resolved (21) Thrush Status: Resolved History of Present Illness Date of Admission: 04/24/17 Chief Complaint: N/V not relieved with antiemetics, lightheadedness, cough, sinus pain with yellow DC, exposure to flu The patient is a 46 year old F with a PMH of DM II, invasive ductal carcinoma of breast, Anxiety/Depression, hyperlipidemia, obesity, hypertension, GERD and goiter who is getting chemotherapy for recurrent breast CA with lung mets. She presented to the ED at [facility] on 04/24/2017 complaining of lightheadedness, nausea and vomiting not relieved with outpatient Zofran and Phenergan, cough, shaking chills, purulent nasal discharge and recent exposure to influenza. He last had chemotherapy on 04/20/2017. The nausea and vomiting started on 04/22/2017 and has been unremitting. Vital signs at presentation to the emergency room were temp 99.1, heart rate 116, blood pressure 91/59, respiratory rate 18 and she was 98% saturated on room air. She was having teeth chattering and shaking chills while I was examining her in the emergency room. Influenza swab was negative. Chest x-ray showed no infiltrates, pulmonary vascular congestion or pleural effusions. Potassium is low at 3.1 and the BUN is increased at 28 with a creatinine of 0.65. Lactic acid is normal at 0.8. Phosphorus is low at 2.4 and the magnesium is low at 1.0. White blood cell count is 5.1 with a hemoglobin of 11.5 and platelets of 454,000. She is being admitted to the hospital with diagnosis of acute bronchitis, sinusitis, intractable nausea and vomiting related to chemotherapy on 04/20/2017 dehydration and multiple electrolyte abnormalities. Past Medical History Past Medical History (Chronic Problems): Chronic Problems HTN (hypertension) (Chronic) DM (diabetes mellitus), type 2, uncontrolled with complications (Chronic) Goiter (Chronic) GERD (gastroesophageal reflux disease) (Chronic) Abnormal ECG (Chronic) Anxiety and depression (Chronic) Invasive ductal carcinoma of breast (Chronic) With metastatic disease to the lung Hyperlipidemia (Chronic) Allergies No Known Allergies Allergy (Verified 04/24/17 11:37) Home Medications: Ambulatory Orders Medication Instructions Recorded BuPROPion (SR) [Wellbutrin Sr] 150 mg PO BID 02/12/13 Insulin Lispro [Humalog] 15 unit SQ TID 02/12/13 Surgical History: cataract, hysterectomy, - - Breast lumpectomy, IV port for chemo Psychiatric History: Anxiety, Depression [employer] History: No pertinent [employer] history Lives: Spouse/ Significant Other Smoking Status: Never smoker Tobacco Use: Non-smoker Alcohol: Occasional Drugs: None - *Family History Maternal History Items: Cancer - Breast Paternal History Items: Diabetes, High Cholesterol Sibling History Items: No pertinent history Review of Systems Constitutional: Reports: Anorexia, Chills, Weakness Eyes: Denies: Redness, Vision Change HEENT: Reports: Nasal Congestion, Post Nasal Drip, Sinus Congestion, Sinus Drainage, Sore Throat. Denies: Head Aches Cardiovascular: Reports: Light Headedness. Denies: Chest Pain, Edema Respiratory: Reports: Cough. Denies: Hemoptysis, Shortness of Breath, Sputum production Gastrointestinal: Reports: Nausea, Vomiting. Denies: Abdominal Pain, Diarrhea Genitourinary: Reports: - - Decreased urine output the past 2 days. Denies: Dysuria Musculoskeletal: Denies: Joint Pain, Joint Tenderness Skin: Denies: Jaundice, Rash, Wounds Neurological: Denies: Numbness, Tingling, Focal weakness Psychiatric: Reports: Anxiety, Depression. Denies: Homicidal Ideations, Suicidal Ideations Endocrine: Denies: Change in Body Habitus Hematologic/ Lymphatic: Denies: Hx of blood clot VTE Information - Inpt Only VTE Present on Admission: No VTE Mechan Device Prophylaxis: SCD's, Knee High ELIGIO Hose VTE Pharm Prophylaxis ordered?: Yes Patient Problems: Active and Suspected Problems Acute bronchitis (Acute) Sinusitis (Acute) Hypotension (Acute) Hypophosphatemia (Acute) Hypomagnesemia (Acute) - Physical Exam General: Alert, Oriented x3, Cooperative, - - Currently having shaking chills HEENT: Atraumatic, PERRLA, EOMI Oral: Moist Mucosa Neck: Supple, No JVD, No Nuchal Rigidity, Trachea Midline Lungs: Clear to auscultation, No rhonchi, No wheeze, No rales, Diminished Cardiovascular: Regular Rhythm, Normal S1, Normal S2, No murmurs, No Ectopic Activity, No rub noted, No Gallop, Tachycardic Abdomen: Bowel Sounds Present, Soft, Non Tender, Non-Distended, No Hepato-splenomegaly, - - No guarding with palpation Extremities: No clubbing, No cyanosis, No edema, - - The extremities are cool to touch Skin: No rashes, No breakdown Musculoskeletal: No Tenderness to Palpation of Joints or Extremities Neurological: Cranial nerves II-XII grossly intact, Neuro grossly intact Psych/Mental Status: Normal Affect, Appropriate Vital Signs Temp Pulse Resp BP Pulse Ox 99.1 F 116 H 18 91/59 L 98 04/24/17 11:37 04/24/17 11:37 04/24/17 11:37 04/24/17 11:37 04/24/17 11:37 Oxygen Delivery Method Room Air Weight: 194 lb Body Mass Index (BMI) 30.4 Finger Stick Blood Glucose 418 Laboratory Tests Past 24 Hrs WBC Pending RBC Pending Hgb Pending Hct Pending MCV Pending MCH Pending MCHC Pending RDW Pending RDW Differential Pending Assessment/Plan Active and Suspected Problems Acute bronchitis (Acute) Sinusitis (Acute) Hypotension (Acute) Hypophosphatemia (Acute) Hypomagnesemia (Acute) Impressions 1. Hypotension-suspect secondary to dehydration with intravascular volume depletion 2. Acute bronchitis with sinusitis 3. Intractable nausea and vomiting secondary to chemotherapy on 04/20/2017 4. Dehydration with increased BUN/creatinine ratio and hypotension 5. Multiple electrolyte abnormalities including hypokalemia, hypomagnesemia and hypophosphatemia 6. Diabetes mellitus type 2/hypertension/goiter/GERD/invasive ductal carcinoma with metastatic disease to the lungs/hyperlipidemia-complicated care, management, prognosis and recovery. Admitted to the hospital and started on intravenous fluids and electrolyte replacement. Vancomycin and Zosyn have been started....... if the MRSA nasal swab is negative will discontinue vancomycin and continue Zosyn until the nasopharyngeal and blood cultures have been resulted. Recheck lab in the a.m. Phenergan and Zofran as needed for nausea Reglan 5 mg IV every 6 hours. She has had this combination in the past and it has worked. Code Visit Inpatient F[place] AND M: 24142 Init Hosp L2 04/24/17 1704 <Electronically signed by Radha Begum DO> Date Radha Begum DO Cosigner Signature: Date (if applicable) CC: Kiana Begum; Jacinto Person MD; Clifford Barakat DO Signed BEDSIDE GLUCOSE Collected: 04/24/2017 Status: F Source: [place] 4:51 PM [facility] REPOSITORY TYPE CODE TESTS RESULT OUT OF REFERENCE UNITS RANGE LAB L501.080 70-110 mg/dL High BEDSIDE GLU 190 Result Comment: MANAGEMENT OF PATIENT CARE PER NURSING PROTOCOL Performed By: #### L501.080 #### [facility] Point of Care [address] [place], [place] [address] M R STAPH AUREUS Collected: 04/24/2017 Status: F Source: [place] DNA BY PCR 3:00 PM [facility] REPOSITORY Order Comment: Order Date: 04/24/17 Has pt arrived? Y TYPE CODE TESTS RESULT OUT OF RANGE REFERENCE UNITS LAB L8200.1100 Negative Normal MRSA Negative RESULT Performed By: #### L8200.1000 #### [facility] [address] [place], [address] Observed: 04/24/2017 Status: F Source: [place] RESPIRATORY PANEL 3:00 PM [facility] MOLECULAR REPOSITORY Copy of report sent to Infection Control Printer MS#[id number] 04/25/17 0946 HARLEY. RP PANEL RESULTS CALLED TO Amparo Lowe 04/25/17 0945 Luz Giron. REPORT READ BACK BY ELVIA. Normal Reference Range = Not Detected ADENOVIRUS Not Detected HUMAN METAPHNEUMO Not Detected INFLUENZA A Not Detected INFLUENZA A (SUBTYPE H1) Not Detected INFLUENZA A (SUBTYPE H3) Not Detected INFLUENZA B Not Detected PARAINFLUENZA 1 Not Detected PARAINFLUENZA 2 Not Detected PARAINFLUENZA 3 Not Detected PARAINFLUENZA 4 Not Detected RHINOVIRUS Not Detected RSV A Not Detected RSV B Positive for RSV B by NAAT technology NAAT METHOD Testing was performed using nucleic acid amplification ORGANISM 1: RSV B Performed By: #### M100.638 #### [facility] [address] [place], [address] LACTIC ACID Collected: 04/24/2017 Status: F Source: [place] 2:10 PM [facility] REPOSITORY Order Comment: Yes/No query for Sepsis Lactate Rule Y TYPE CODE TESTS RESULT OUT OF RANGE REFERENCE UNITS LAB L503.6005 0.4-2.0 mmol/L Normal LACTIC ACID 0.8 Performed By: #### L503.6005 #### [facility] [address] [place] [place], [address] Observed: 04/24/2017 Status: F Source: [place] CULTURE, NOSE 1:25 PM [facility] REPOSITORY Order Date: 04/24/17 Gram Stain Gram Stain No organisms seen Nasoph. Cult * This is an amended result. * A prior result that was reported as final has been changed. 04/26/17917 by EMILIA Previously reported as: FINAL Clinical correlation necessary, Possible skin contamination. ORGANISM 1: Staphylococcus epidermidis Amount Growth 3+ Staphylococcus epidermidis: REACTION Benzylpenicillin NF >=0.5 R Cefoxitin *NF - Clindamycin $$ <=0.25 S Inducable Clindamycin Resistan - Erythromycin $ <=0.25 S Gentamicin $ <=0.5 S Levofloxacin $ <=0.12 S Linezolid $$$$ 1 S Oxacillin NF <=0.25 S Tigecycline $$$$ <=0.12 S Rifampin $$ <=0.5 S Tetracycline NF <=1 S Vancomycin $ 1 S (NF) indicates non-formulary drug at [facility]. Approval by Infectious Disease Specialist required before non-formulary drugs may be ordered and/or dispensed. * CLSI guidelines does not recommend testing of cephalosporins. This interpretation is deduced from Beta-lactam/penicillin results. Performed By: #### M100.0900 #### [facility] [address] [place], [address] Observed: 04/24/2017 Status: F Source: [place] CULTURE, BLOOD (WB) 1:02 PM [facility] REPOSITORY BC No growth in 5 days. Performed By: #### L500.4050, L501.2300, L501.5200, M101.0101, M200.1000 #### [facility] [address] [place], [address] CHEST PA AND LATERAL Observed: 04/24/2017 Status: F Source: [place] 12:37 PM [facility] REPOSITORY [facility] Imaging Services [address] [place] [address] Chest PA and Lateral MR#: [id number] Acct: [id number] Name: PEDRO LUIS WILCOX Rep #: [id number] : 1970 F 46 From: Reed Samaniego MD PCP: Jacinto Person MD Status: ADM IN Study: Chest PA and Lateral Date of Exam: 04/24/17 Exam# [id number] Ordering Dr: Radha Begum DO STUDY: X-RAY CHEST REASON FOR EXAM: Female, 46 years old. Dyspnea TECHNIQUE: Frontal and lateral view of the chest. COMPARISON: April 09, 2017 FINDINGS: There is a left Port-A-Cath and/or mediport in place. The tip is in the superior vena caval - atrial junction. Stable atelectasis or scarring of the right lower lobe. There is no demonstrated pleural abnormality. Normal size heart. Normal mediastinum and brandi. Normal visualized pulmonary arteries. Normal visualized aortic arch and descending thoracic aorta. There are diffuse degenerative changes of the visualized thoracic spine. Normal visualized ribs, clavicles, and shoulders. There is no demonstrated abnormality of the visualized soft tissue structures of the upper abdomen. RAD/Chest PA and Lateral IMPRESSION: Stable atelectasis or scarring of the right lower lobe. Electronically Signed: Reed Samaniego MD at 16:49 EST , Service support , CC: Kiana Begum; Jacinto Person MD Family And Consumer Education Teacher: Signed Observed: 04/24/2017 Status: F Source: [place] INFLUENZA A+B (RAPID 12:30 PM [facility]) REPOSITORY Order Date: 04/24/17 FLU A/B Rapid Negative test results should be confirmed by culture. Order Rapid Viral Culture for Influenzae A+B ([id number]) if clinically indicated. Influenza Ag, Direct Presumptive NEGATIVE for Influenza A/B Antigen (See Note) Performed By: #### L500.4050, L501.2300, L501.5200, M101.0101, M200.1000 #### [facility] [address] [place], [address] CBC W/DIFF, AUTOMATED Collected: 04/24/2017 Status: F Source: [place] 12:12 PM [facility] REPOSITORY TYPE CODE TESTS RESULT OUT OF RANGE REFERENCE UNITS LAB L100.1000 4.4-11.0 K/mm3 Normal WBC 5.1 LAB L100.1200 4.2-5.4 M/mm3 Low RBC 3.80 LAB L100.1300 12.0-15.0 g/dl Low HGB 11.5 LAB L100.1400 37-47 % Low HCT 35.3 LAB L100.1500 81-99 fL Normal MCV 92.9 LAB L100.1600 27.0-32.0 pg Normal MCH 30.3 LAB L100.1700 32-36 g/gl Normal MCHC 32.6 LAB L100.1810 11.6-14.6 % Normal RDW CV 13.3 LAB L100.1820 35.1-43.9 fl High RDW SD 45.2 LAB L100.1900 150-450 K/mm3 High PLT 454 LAB L100.2000 6.2-12.0 fl Normal MPV 8.6 LAB L100.2100 47-70 % Normal NEUT% 62.5 LAB L100.2200 19-41 % Normal LY% 26.9 LAB L100.2300 0-10 % Normal MONO% 9.4 LAB L100.2400 0-5 % Normal EO% 1.0 LAB L100.2500 0-1 % Normal BASO% 0.2 LAB L100.2550 0.0-0.9 % Normal IM GRAN % 0.000 Result Comment: IG% - Immature Granulocytes (promyelocytes, myelocytes and metamyelocytes) > 1% indicates that a LEFT SHIFT is Present. LAB L100.2620 2.0-7.7 X10 3/uL Normal Absolute Neut 3.2 LAB L100.2720 0.83-4.51 X10 3/ul Normal Absolute Lymph 1.37 Performed By: #### L100.0100 #### [facility] [address] [place], [place], [address] COMPREHENSIVE METABOLIC Collected: 04/24/2017 Status: F Source: [facility] 12:12 PM [facility] REPOSITORY TYPE CODE TESTS RESULT OUT OF RANGE REFERENCE UNITS LAB L501.0100 70-110 mg/dL High GLU 222 Result Comment: Glucose result greater than or equal to 200 mg/dL suggests DIABETES MELLITUS per A.D.A. criteria. LAB L501.1000 7-18 mg/dL High BUN 28 LAB L501.1100 0.55-1.02 mg/dL Normal CREAT,SERUM 0.65 Result Comment: The validity of the calculated GFR AND GFRAA in patients over 70 years has not been determined. Clinical correlation is essential. LAB L501.1110 >60 mL/min Normal EST GFR 103 Result Comment: Non- GFR Calc LAB L501.1115 >60 mL/min Normal EST GFR - AA 125 Result Comment: GFR Calc LAB L501.1255 ml/min Normal Estimated CRCL 104.05 LAB L501.1300 10-20 RATIO High BUN/CRE 43.0 LAB L501.1500 6.4-8. g/dL 2 T PROT Normal 8.0 LAB L501.1800 3.4-5. g/dL Low 0 ALB 2.9 Result Comment: Please note revised Albumin AND Globulin reference range effective 2017. LAB L501.1950 2.2-4.2 g/dL High GLOB 5.1 LAB L501.2000 0.9-2.4 RATIO Low A/G 0.6 LAB L501.2200 8.5-10.1 mg/dL Low CA 7.7 LAB L501.4100 15-37 U/L Low AST 10 LAB L501.4305 45-117 U/L Normal ALK P 92 LAB L501.4405 12-78 U/L Normal ALT 14 LAB L501.4600 0.20-1.00 mg/dL Normal T BILI 0.30 LAB L501.5300 136-145 mmol/L Normal NA 136 LAB L501.5600 3.5-5.1 mmol/L Low K 3.1 LAB L501.5900 98-107 mmol/L Low CL 92 LAB L501.6100 21.0-32.0 mmol/L Normal CO2 27.0 LAB L501.6200 5-15 High GAP 17 Performed By: #### L500.4050, L501.2300, L501.5200, M101.0101, M200.1000 #### [facility] [address] [place], [place], [id number] PHOSPHORUS Collected: 04/24/2017 Status: F Source: [place] 12:12 PM [facility] REPOSITORY TYPE CODE TESTS RESULT OUT OF RANGE REFERENCE UNITS LAB L501.2300 2.5-4.9 mg/dL Low PHOS 2.4 Performed By: #### L500.4050, L501.2300, L501.5200, M101.0101, M200.1000 #### [facility] [address] [place], [address] MAGNESIUM Collected: 04/24/2017 Status: F Source: [place] 12:12 PM [facility] REPOSITORY TYPE CODE TESTS RESULT OUT OF RANGE REFERENCE UNITS LAB L501.5200 1.8-2.4 mg/dL Low MG 1.0 Performed By: #### L500.4050, L501.2300, L501.5200, M101.0101, M200.1000 #### [facility] [address] [place], [address] HOSP Observed: 04/21/2017 Status: COMPLETED Source: [place] 12:00 AM [facility] REPOSITORY Patient Update (HEMAWS) PEDRO LUIS WILCOX ([id number]) 1970 F Date Time Provider Department 04/21/17 EMRE MCDONOUGH) DANYEL During your visit today, we recorded the following information about you: Emre Mcdonough RN 04/21/2017 2:16 PM Signed LATE NOTE FOR 04/20/17: Patient is here for Cycle 4/Day 1. See [place] order. Patient denies any new concerns or c/o's except starting to feel nauseated just discussing the treatment and answering questions regarding the dose reduction. Dr. Barakat has ordered IV Ativan. ? The patient was given a new study medication diary and the 2 current?bottles of Veliparib vs Placebo with 9 capsules remaining and unopened bottle with 64 capsules as dispensed by the pharmacy. Instructed to return the diary and medication bottle with any remaining medication at next study visit. Use of the study medication diary and dosing instructions were reviewed with the patient. ?? RTC as discussed prior and patient has appointment times. Aware of time to go to [facility] for IV hydration Day 2 and 3. Pt will call with any questions or concerns in the interim. Patient states understanding of all instructions provided. Emre Mcdonough RN Allergies As of Date: 04/21/2017 (No Known Allergies) Date Reviewed: 04/19/2017 Reviewed by: Suze Ramirez RN - Fully Assessed Reason for Visit: Clinical Trial Nurse Note [Other] Cmt: S1416 Prescriptions as of 04/21/2017 Sig: LORAZEPAM 1 MG TABLET Take 1 tablet by mouth every * PROMETHAZINE 25 MG RECTAL SUP* 25 mg by RECTAL route every 6* PROMETHAZINE 25 MG TABLET Take 1 tablet by mouth every * OLANZAPINE 10 MG TABLET Take 1 tablet by mouth daily * LIDOCAINE-PRILOCAINE 2.5 %-2.* Apply 1 application to affect* CITALOPRAM 20 MG TABLET Take 1 tablet by mouth once d* CLONAZEPAM 0.5 MG TABLET 1 tablet twice daily. PRN LORAZEPAM 0.5 MG TABLET 1 tablet twice daily. Prn NITROFURANTOIN MONOHYDRATE AND * Take 100 mg by mouth twice da* EMPAGLIFLOZIN 10 MG TABLET Take 10 mg by mouth once gamaliel* VITAMIN B COMPLEX CAPSULE Take 1 capsule by mouth twice* MOMETASONE-FORMOTEROL HFA 200* Inhale 2 Puffs as instructed * CREON ORAL Take 6,000 Units by mouth. Wi* MOBIC ORAL Take 10 mg by mouth once gamaliel* CELEBREX ORAL Take 1 capsule by mouth twice* OMEPRAZOLE 40 MG CAPSULE,PRO* Take 1 capsule by mouth twice* VALACYCLOVIR 500 MG TABLET Take 500 mg by mouth as neede* ERGOCALCIFEROL (VITAMIN D2) 5* Take 50,000 Units by mouth on* * BUPROPION HCL SR 150 MG TABLE* Take 1 tablet by mouth twice * * INSULIN GLARGINE 100 UNIT/ML * Take 50 in am and 70 units in* * HUMALOG KWIKPEN 100 UNIT/ML S* 15 in am, 15 noon, 20 in philip Problem List As Of Date 04/21/2017 Noted Resolved THYROID NODULE [E04.1] INVALID FOR* More... Anxiety State, Unspecified [F41.1] 01/22/2009 Depressive Disorder, not Elsewhere Classified [* Priority: Moderate More... DM w/o complication type II, uncontrolled [E11.*INVALID FOR* Priority: Severe More... Other Malaise and Fatigue [R53.81, R53.83] INVALID FOR*01/22/2009 More... HYPERLIPIDEMIA NEC/NOS [E78.5] INVALID FOR* FIBROMYALGIA [BGB6662] INVALID FOR* Priority: Moderate OVERWEIGHT [E66.9] INVALID FOR* OTHER HAMMER TOE [M20.40] INVALID FOR* More... URIN TRACT INFECTION RECURRENT [N39.0] INVALID FOR*01/21/2016 More... GENITAL HERPES NOS [A60.00] INVALID FOR* Tobacco Use Disorder [F17.200] INVALID FOR* Priority: Moderate More... CONGENITAL PES PLANUS [Q66.50] INVALID FOR* Displacement of Lumbar Intervertebral Disc with*INVALID FOR* Priority: Moderate More... More... Routine Gynecological Examination [Z01.419] INVALID FOR* Class: Chronic More... 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*INVALID FOR* Malignant neoplasm metastatic to left lung (HCC*INVALID FOR* Examination of participant in clinical trial [Z*INVALID FOR* Visit Notes: >> Emre Jacobson) Ceasar Jami Apr 21, 2017 2:07 PM Status: Signed LATE NOTE FOR 04/20/17: Patient is here for Cycle 4/Day 1. See [place] order. Patient denies any new concerns or c/o's except starting to feel nauseated just discussing the treatment and answering questions regarding the dose reduction. Dr. Barakat has ordered IV Ativan. ? The patient was given a new study medication diary and the 2 current?bottles of Veliparib vs Placebo with 9 capsules remaining and unopened bottle with 64 capsules as dispensed by the pharmacy. Instructed to return the diary and medication bottle with any remaining medication at next study visit. Use of the study medication diary and dosing instructions were reviewed with the patient. ?? RTC as discussed prior and patient has appointment times. Aware of time to go to [facility] for IV hydration Day 2 and 3. Pt will call with any questions or concerns in the interim. Patient states understanding of all instructions provided. Emre Mcdonough RN Encounter Status:Closed by EMRE MCDONOUGH on 04/21/17 PROGRESS Observed: 04/19/2017 Status: COMPLETED Source: [place] 1:37 PM [facility] REPOSITORY HNO ID: [id number] Author: Clifford Barakat Service: (none) Author Type: Physician Type: Progress Notes Filed: 04/22/2017 8:35 AM Note Text: Diagnosis: 1) Breast cancer. 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 Her mother has a h/o breast cancer, so patient had been undergoing annual mammogram. The patient underwent a screening mammogram on 08/30/2013. A 1.6 cm nodular density was appreciated in the tail of the right breast. She underwent targeted ultrasound the same day. That study revealed a 9 mm hypoechoic solid nodule at the 10:00 position of the breast measuring 6 cm from the nipple. Stereotactic core needle biopsy on 09/13/2013. The tissue revealed invasive poorly differentiated ductal carcinoma. The specimen was negative for both estrogen and progesterone receptors. Both were quantified at 0%. HER-2 was 2+ an immunostain and nonamplified by FISH testing. The patient underwent an MRI of the breast on 09/20/2013. The study revealed that the left breast had no suspicious findings. In the right breast there was a 1.6 cm abnormal enhancing mass in the superior outer aspect of the right breast approximately 10 cm from the nipple. This correlated to the biopsy area. Underwent partial mastectomy with SLN biopsy 10/05/2013. The final pathology revealed an invasive poorly differentiated ductal carcinoma measuring 1.3 cm in size. There was a single focus. DCIS was present measuring 2 mm in maximum dimension. The grade of the cancer was 3. Margins were negative. The closest was 6 mm. Lymphovascular invasion was not identified. One sentinel lymph node was retrieved. It was negative. Received two cycles of TC. Admitted for severe PAGE. Admitted 12/17/2013 due to increase in thigh pain and dyspnea. Markedly elevated CK. No increase in serum Cr. Chemotherapy stopped after cycle #2. Was seen by ornamental plasterer helper at . 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 Completed radiation 03/26/2014. She started developing intermittent shortness of breath with exertion. She also has a cough that is a dry cough. She was taken off her PAM inhibitor but the cough has not changed. She had a PA and lateral chest film done on 10/22/2016 that demonstrated no abnormality. She then underwent a CT scan the chest without IV contrast on 11/06/2016. Two nodules were observed in the pulmonary parenchyma. One was located in the right lower lobe and the second was located in the lingular lobe. Each measured 8 mm and were thought to be consistent with metastatic disease. CT of the abdomen and pelvis on 11/20/2016 as well as repeat CT chest with IV contrast demonstrated a thick walled gallbladder suspicious for cystitis, chronic and redemonstration of the lung nodules. No concern for metastatic disease in the abdomen or pelvis. Brain MRI on 11/23/2016 was normal. PET scan demonstrated multiple foci of increased glucose concentration manifested in the right axilla, significant region generating a standard uptake value of 7.6. The maximal axial diameter the largest individual hypermetabolic soft tissue density on review of the CT of the thorax was approximately 23.1 mm in transverse dimension. An ultrasound of the right axilla and subclavicular region on 12/02/2016 demonstrated that within the right axilla there was a cluster of abnormal appearing hypoechoic nodules. The largest measured 2.3 x 1.50 1.4 cm. In the subclavicular region there was also evidence of several hypoechoic nodules the largest measuring 2.75 x 2.85 1.5 cm. She then underwent a right axillary core needle biopsy on 12/07/2016. The pathology demonstrated a poorly differentiated metastatic carcinoma. The specimen was negative for both ER and KS as well as HER- 2. I discussed the case with the pathologist today who told me that histologically/morphologically the specimen was consistent with her previous specimen of breast cancer. The pathologist will issue an addendum quantifying ER and KS 0 as well as HER-2 at 0. She had a stress test and echocardiogram about 3 years ago and had no evidence of coronary artery disease. She had LV concentric hypertrophy with preserved ejection fraction. She underwent port placement along with right axillary lymph node dissection on 12/24/2016. MICROSCOPIC DIAGNOSIS Right axillary lymph nodes, regional lymph adenectomy: One out of seven lymph nodes with metastatic poorly differentiated carcinoma. See comment. COMMENT Immunohistochemistry ([id number]) does not rule out a breast primary. There is focal perinodal extension of tumor. Clinical correlation is suggested. ANTIBODY / CLONE RESULT Block 1 Mammaglobin (31A5) negative GATA3 (L50-823) positive, rare, dim CK8 (14krpkB44) positive Ki-67 (30-9) positive, moderate to high ER (6F11) negative 0% KS (1E2) negative 0% CK19 (A53-B/A2.26) positive Cyclin D1/BCL-1 (SP4) positive CEA (11-7/TF-3HB-1) negative SHELLI (E29) positive CK20 (KS20.8) negative Villin (CWWB1) negative RCC (PN-15) negative CA125 (OC125) positive Current therapy: 1) Cisplatin (+/- PARP inhibitor on trial). Presents for ongoing oncologic management. Interim history: She required hospitalization again for refractory nausea and vomiting. This occurred despite outpatient hydration following chemotherapy. She used Reglan on around the clock basis. When she was admitted she was kept on Reglan, [id number] and was given hydration. She also developed fever when she was inpatient and was neutropenic although she did not get antibiotic therapy, the counts rapidly improved with the administration of growth factor. She feels well now but she is still experiencing a lot of anticipatory nausea. Thinking about receiving chemotherapy, coming to the office and even talking with us induces a lot of anxiety and nausea with her. She's been using Ativan judiciously. She doesn't have any lingering other side effects from chemotherapy including tinnitus or worsening of her pre-existing neuropathy secondary to diabetes. No respiratory symptoms. PMH, medications and allergies as below personally reviewed by me today. Any changes documented in appropriate section. ROS: Constitutional: Denies episodes of fever and night sweats. Normal appetite. Neuro: Denies DOZIER, vertigo, dizziness and imbalance. HEENT: No recent change in voice, vision or hearing. Resp: See above. CVS: Denies exertional chest pain, PND, orthopnea and LE edema. GI: Denies dysgeusia. Denies symptoms of stomatitis. Denies dysphagia and odynophagia. Denies reflux, n/v, change in bowel habits and abdominal pain. : Denies dysuria or gross hematuria. No symptoms of bladder outlet obstruction. Endo: Denies hot flashes. Denies polyuria and polydipsia. Denies heat and cold intolerance. Musculoskeletal: Denies bone, back, joint and muscular pain. Derm: Denies rash. Denies jaundice and diffuse pruritis. Heme: Denies unusual bleeding and unexplained bruising. Psych: Normal mood. PHYSICAL EXAM: Vitals: Blood pressure 159/78, pulse 111, temperature 36.9 ?C (98.5 ?F), temperature source Oral, resp. rate 17, weight 89.1 kg (196 lb 8 oz), SpO2 97 %. Well-appearing and in no acute distress. EYES: Sclerae are anicteric bilaterally. ENT: Oral mucosa is unremarkable. There is no sign of thrush or mucositis. NECK: Supple. LYMPHATIC: There is no palpable cervical, supraclavicular or inguinal adenopathy. No left axillary adenopathy. No residual mass or lymphadenopathy appreciated in right axilla. RESPIRATORY: Inspiratory breath sounds are of normal intensity in all norris. No rales, wheezes or rhonchi. CARDIOVASCULAR: Rhythm is regular. Normal intensity S1/S2. There is no gallop or murmur. ABDOMEN: The abdomen is nondistended. No organomegaly. No tenderness. Extremities: No swelling or edema. SKIN: No jaundice or rash. No petechiae. NEUROLOGIC: station attendant II-XII are grossly intact. No focal motor weakness. MUSCULOSKELETAL: No muscle wasting. 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 Comprehensive BRCA 1 and 2 testing (scanned 12/05/2013) no mutation Complicated by myositis during adjuvant chemotherapy. -KPS is 90%. -Biopsy-proven local regional recurrence. 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 -She continues to tolerate therapy well with the exception of nausea and vomiting. -I personally reviewed CT images disagree with the radiologist's findings. Metastatic nodule in the lingula of the left lung on baseline scans measured 9 mm and currently measures 1 mm. Reportedly is 4 mm on the official scan. I tried contacting the reading radiologist through the [facility] radiology group was unsuccessful in getting through to him today. Plan: -Okay for cycle #4 tomorrow. -Apparently scheduling at the hospital did not schedule her for the abdominopelvic CT scans despite the fact that the wiring technician called her to poultry picking machine tender the oral contrast indicating that her orders were sent through to his CT scan.. We will just forego those and take a protocol violation on this. She didn't have any evidence of metastatic disease below the diaphragm on original staging workup anyway. Clifford Barakat DO Re-reviewed CT images from 04/15/2017 and 01/20/2017. I did so in order to assess the nodule in the right lower lobe. It currently measures 1.5 mm and had measured 6 mm a baseline. The nodule in the lingula when measured after enlarging the images, measures 4 mm and a baseline measured 9 mm. Therefore patient has had a partial response (sum of diameters at baseline 15 mm and currently measuring 5.5 mm). Clifford Barakat DO CNOVSP Observed: 04/19/2017 Status: COMPLETED Source: [place] 11:10 AM [facility] REPOSITORY Visit (SP) Office (DANYEL) PEDRO LUIS WILCOX ([id number]) 1970 F Date Time Provider Department 04/19/17 11:10 AM CLIFFORD BARAKAT During your visit today, we recorded the following information about you: Temperature Pulse Respiration Blood pressure 98.5 degrees 111/minute 17/minute 159/78 Weight 89.1 kg Clifford Barakat DO 04/22/2017 8:35 AM Addendum Diagnosis: 1) Breast cancer. 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 Her mother has a h/o breast cancer, so patient had been undergoing annual mammogram. The patient underwent a screening mammogram on 08/30/2013. A 1.6 cm nodular density was appreciated in the tail of the right breast. She underwent targeted ultrasound the same day. That study revealed a 9 mm hypoechoic solid nodule at the 10:00 position of the breast measuring 6 cm from the nipple. Stereotactic core needle biopsy on 09/13/2013. The tissue revealed invasive poorly differentiated ductal carcinoma. The specimen was negative for both estrogen and progesterone receptors. Both were quantified at 0%. HER-2 was 2+ an immunostain and nonamplified by FISH testing. The patient underwent an MRI of the breast on 09/20/2013. The study revealed that the left breast had no suspicious findings. In the right breast there was a 1.6 cm abnormal enhancing mass in the superior outer aspect of the right breast approximately 10 cm from the nipple. This correlated to the biopsy area. Underwent partial mastectomy with SLN biopsy 10/05/2013. The final pathology revealed an invasive poorly differentiated ductal carcinoma measuring 1.3 cm in size. There was a single focus. DCIS was present measuring 2 mm in maximum dimension. The grade of the cancer was 3. Margins were negative. The closest was 6 mm. Lymphovascular invasion was not identified. One sentinel lymph node was retrieved. It was negative. Received two cycles of TC. Admitted for severe PAGE. Admitted 12/17/2013 due to increase in thigh pain and dyspnea. Markedly elevated CK. No increase in serum Cr. Chemotherapy stopped after cycle #2. Was seen by ornamental plasterer helper at . 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 Completed radiation 03/26/2014. She started developing intermittent shortness of breath with exertion. She also has a cough that is a dry cough. She was taken off her PAM inhibitor but the cough has not changed. She had a PA and lateral chest film done on 10/22/2016 that demonstrated no abnormality. She then underwent a CT scan the chest without IV contrast on 11/06/2016. Two nodules were observed in the pulmonary parenchyma. One was located in the right lower lobe and the second was located in the lingular lobe. Each measured 8 mm and were thought to be consistent with metastatic disease. CT of the abdomen and pelvis on 11/20/2016 as well as repeat CT chest with IV contrast demonstrated a thick walled gallbladder suspicious for cystitis, chronic and redemonstration of the lung nodules. No concern for metastatic disease in the abdomen or pelvis. Brain MRI on 11/23/2016 was normal. PET scan demonstrated multiple foci of increased glucose concentration manifested in the right axilla, significant region generating a standard uptake value of 7.6. The maximal axial diameter the largest individual hypermetabolic soft tissue density on review of the CT of the thorax was approximately 23.1 mm in transverse dimension. An ultrasound of the right axilla and subclavicular region on 12/02/2016 demonstrated that within the right axilla there was a cluster of abnormal appearing hypoechoic nodules. The largest measured 2.3 x 1.50 1.4 cm. In the subclavicular region there was also evidence of several hypoechoic nodules the largest measuring 2.75 x 2.85 1.5 cm. She then underwent a right axillary core needle biopsy on 12/07/2016. The pathology demonstrated a poorly differentiated metastatic carcinoma. The specimen was negative for both ER and KS as well as HER-2. I discussed the case with the pathologist today who told me that histologically/morphologically the specimen was consistent with her previous specimen of breast cancer. The pathologist will issue an addendum quantifying ER and KS 0 as well as HER-2 at 0. She had a stress test and echocardiogram about 3 years ago and had no evidence of coronary artery disease. She had LV concentric hypertrophy with preserved ejection fraction. She underwent port placement along with right axillary lymph node dissection on 12/24/2016. MICROSCOPIC DIAGNOSIS Right axillary lymph nodes, regional lymph adenectomy: One out of seven lymph nodes with metastatic poorly differentiated carcinoma. See comment. COMMENT Immunohistochemistry ([id number]) does not rule out a breast primary. There is focal perinodal extension of tumor. Clinical correlation is suggested. ANTIBODY / CLONE RESULT Block 1 Mammaglobin (31A5) negative GATA3 (L50-823) positive, rare, dim CK8 (84zzfhF49) positive Ki-67 (30-9) positive, moderate to high ER (6F11) negative 0% KS (1E2) negative 0% CK19 (A53-B/A2.26) positive Cyclin D1/BCL-1 (SP4) positive CEA (11-7/TF-3HB-1) negative SHELLI (E29) positive CK20 (KS20.8) negative Villin (CWWB1) negative RCC (PN-15) negative CA125 (OC125) positive Current therapy: 1) Cisplatin (+/- PARP inhibitor on trial). Presents for ongoing oncologic management. Interim history: She required hospitalization again for refractory nausea and vomiting. This occurred despite outpatient hydration following chemotherapy. She used Reglan on around the clock basis. When she was admitted she was kept on Reglan, [id number] and was given hydration. She also developed fever when she was inpatient and was neutropenic although she did not get antibiotic therapy, the counts rapidly improved with the administration of growth factor. She feels well now but she is still experiencing a lot of anticipatory nausea. Thinking about receiving chemotherapy, coming to the office and even talking with us induces a lot of anxiety and nausea with her. She's been using Ativan judiciously. She doesn't have any lingering other side effects from chemotherapy including tinnitus or worsening of her pre-existing neuropathy secondary to diabetes. No respiratory symptoms. PMH, medications and allergies as below personally reviewed by me today. Any changes documented in appropriate section. ROS: Constitutional: Denies episodes of fever and night sweats. Normal appetite. Neuro: Denies DOZIER, vertigo, dizziness and imbalance. HEENT: No recent change in voice, vision or hearing. Resp: See above. CVS: Denies exertional chest pain, PND, orthopnea and LE edema. GI: Denies dysgeusia. Denies symptoms of stomatitis. Denies dysphagia and odynophagia. Denies reflux, n/v, change in bowel habits and abdominal pain. : Denies dysuria or gross hematuria. No symptoms of bladder outlet obstruction. Endo: Denies hot flashes. Denies polyuria and polydipsia. Denies heat and cold intolerance. Musculoskeletal: Denies bone, back, joint and muscular pain. Derm: Denies rash. Denies jaundice and diffuse pruritis. Heme: Denies unusual bleeding and unexplained bruising. Psych: Normal mood. PHYSICAL EXAM: Vitals: Blood pressure 159/78, pulse 111, temperature 36.9 ?C (98.5 ?F), temperature source Oral, resp. rate 17, weight 89.1 kg (196 lb 8 oz), SpO2 97 %. Well-appearing and in no acute distress. EYES: Sclerae are anicteric bilaterally. ENT: Oral mucosa is unremarkable. There is no sign of thrush or mucositis. NECK: Supple. LYMPHATIC: There is no palpable cervical, supraclavicular or inguinal adenopathy. No left axillary adenopathy. No residual mass or lymphadenopathy appreciated in right axilla. RESPIRATORY: Inspiratory breath sounds are of normal intensity in all norris. No rales, wheezes or rhonchi. CARDIOVASCULAR: Rhythm is regular. Normal intensity S1/S2. There is no gallop or murmur. ABDOMEN: The abdomen is nondistended. No organomegaly. No tenderness. Extremities: No swelling or edema. SKIN: No jaundice or rash. No petechiae. NEUROLOGIC: station attendant II-XII are grossly intact. No focal motor weakness. MUSCULOSKELETAL: No muscle wasting. 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 Comprehensive BRCA 1 and 2 testing (scanned 12/05/2013) no mutation Complicated by myositis during adjuvant chemotherapy. -KPS is 90%. -Biopsy-proven local regional recurrence. 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 -She continues to tolerate therapy well with the exception of nausea and vomiting. -I personally reviewed CT images disagree with the radiologist's findings. Metastatic nodule in the lingula of the left lung on baseline scans measured 9 mm and currently measures 1 mm. Reportedly is 4 mm on the official scan. I tried contacting the reading radiologist through the [facility] radiology group was unsuccessful in getting through to him today. Plan: -Okay for cycle #4 tomorrow. -Apparently scheduling at the hospital did not schedule her for the abdominopelvic CT scans despite the fact that the wiring technician called her to poultry picking machine tender the oral contrast indicating that her orders were sent through to his CT scan.. We will just forego those and take a protocol violation on this. She didn't have any evidence of metastatic disease below the diaphragm on original staging workup anyway. Clifford Barakat DO Re-reviewed CT images from 04/15/2017 and 01/20/2017. I did so in order to assess the nodule in the right lower lobe. It currently measures 1.5 mm and had measured 6 mm a baseline. The nodule in the lingula when measured after enlarging the images, measures 4 mm and a baseline measured 9 mm. Therefore patient has had a partial response (sum of diameters at baseline 15 mm and currently measuring 5.5 mm). Clifford Barakat DO Referring Provider: CLIFFORD BARAKAT [[id number]] Allergies As of Date: 04/19/2017 (No Known Allergies) Date Reviewed: 04/19/2017 Reviewed by: Suze Ramirez RN - Fully Assessed Reason for Visit: Established Patient [175] Cmt: study pt Primary Visit Diagnosis:Malignant neoplasm of upper-outer quadrant of right breast in female, estrogen receptor negative (HCC) [C50.411, Z17.1] Other Visit Diagnosis:Malignant neoplasm metastatic to left lung (HCC) [C78.02] Order(s):CT ABD/PEL W IVCON [[id number]] Order #: [id number] FUTURE CT CHEST W IVCON [[id number]] Order #: [id number] FUTURE [] iv contrast (radiology procedure)CT Chest ABD/PEL-Inject, intravenously, once for 1 dose.No IV access, insert saline lock prior to the beginning of sedation, infusion, injection of imaging exam. Discontinue saline lock post exam. If Pt. has a central line or IVAD, may access for administration according to line specific nursing protocol. Once exam is complete flush line and de- access according to line specific nursing protocol in the CT contrast administration guidelines link.Disp: 1 EachRfl: 0 [] enteric contrast (radiology procedure)For CT CHESTABD/PEL W IVCON Routine order Administer, As Directed One Time Only, via Oral, Rectal, both Oral and Rectal, Enteric Tube, Stoma or Indwelling Catheter, Enteric Contrast as designated per enteric contrast guidelinesDisp: 1 EachRfl: 0 NM BONE WHOLE BODY [[id number]] Order #: [id number] FUTURE Follow-up and Disposition History Recorded Prescriptions as of 04/19/2017 Sig: PROMETHAZINE 25 MG RECTAL SUP* 25 mg by RECTAL route every 6* PROMETHAZINE 25 MG TABLET Take 1 tablet by mouth every * OLANZAPINE 10 MG TABLET Take 1 tablet by mouth daily * LIDOCAINE-PRILOCAINE 2.5 %-2.* Apply 1 application to affect* CITALOPRAM 20 MG TABLET Take 1 tablet by mouth once d* CLONAZEPAM 0.5 MG TABLET 1 tablet twice daily. PRN LORAZEPAM 0.5 MG TABLET 1 tablet twice daily. Prn NITROFURANTOIN MONOHYDRATE AND * Take 100 mg by mouth twice da* EMPAGLIFLOZIN 10 MG TABLET Take 10 mg by mouth once gamaliel* VITAMIN B COMPLEX CAPSULE Take 1 capsule by mouth twice* MOMETASONE-FORMOTEROL HFA 200* Inhale 2 Puffs as instructed * CREON ORAL Take 6,000 Units by mouth. Wi* MOBIC ORAL Take 10 mg by mouth once gamaliel* CELEBREX ORAL Take 1 capsule by mouth twice* OMEPRAZOLE 40 MG CAPSULE,PRO* Take 1 capsule by mouth twice* VALACYCLOVIR 500 MG TABLET Take 500 mg by mouth as neede* ERGOCALCIFEROL (VITAMIN D2) 5* Take 50,000 Units by mouth on* * BUPROPION HCL SR 150 MG TABLE* Take 1 tablet by mouth twice * * INSULIN GLARGINE 100 UNIT/ML * Take 50 in am and 70 units in* * HUMALOG KWIKPEN 100 UNIT/ML S* 15 in am, 15 noon, 20 in philip IV CONTRAST (RADIOLOGY PROCED* CT Chest ABD/PEL-Inject, intr* ENTERIC CONTRAST (RADIOLOGY P* For CT CHESTABD/PEL W IVCON R* Problem List As Of Date 04/19/2017 Noted Resolved THYROID NODULE [E04.1] INVALID FOR* More... Anxiety State, Unspecified [F41.1] 01/22/2009 Depressive Disorder, not Elsewhere Classified [* Priority: Moderate More... DM w/o complication type II, uncontrolled [E11.*INVALID FOR* Priority: Severe More... Other Malaise and Fatigue [R53.81, R53.83] INVALID FOR*01/22/2009 More... HYPERLIPIDEMIA NEC/NOS [E78.5] INVALID FOR* FIBROMYALGIA [FGS9362] INVALID FOR* Priority: Moderate OVERWEIGHT [E66.9] INVALID FOR* OTHER HAMMER TOE [M20.40] INVALID FOR* More... URIN TRACT INFECTION RECURRENT [N39.0] INVALID FOR*01/21/2016 More... GENITAL HERPES NOS [A60.00] INVALID FOR* Tobacco Use Disorder [F17.200] INVALID FOR* Priority: Moderate More... CONGENITAL PES PLANUS [Q66.50] INVALID FOR* Displacement of Lumbar Intervertebral Disc with*INVALID FOR* Priority: Moderate More... More... Routine Gynecological Examination [Z01.419] INVALID FOR* Class: Chronic More... 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*INVALID FOR* Malignant neoplasm metastatic to left lung (HCC*INVALID FOR* Examination of participant in clinical trial [Z*INVALID FOR* Encounter Status:Closed by CLIFFORD BARAKAT DO on 04/19/17 CBC W/DIFF, AUTOMATED Collected: 04/19/2017 Status: F Source: [place] 8:32 AM [facility] REPOSITORY Order Comment: DR. PERSON WANTS THE CRP DR. MENA WANTS THE CMP CBCD MG TYPE CODE TESTS RESULT OUT OF RANGE REFERENCE UNITS LAB L100.1000 4.4-11.0 K/mm3 Normal WBC 7.0 LAB L100.1200 4.2-5.4 M/mm3 Low RBC 3.44 LAB L100.1300 12.0-15.0 g/dl Low HGB 10.5 LAB L100.1400 37-47 % Low HCT 32.1 LAB L100.1500 81-99 fL Normal MCV 93.3 LAB L100.1600 27.0-32.0 pg Normal MCH 30.5 LAB L100.1700 32-36 g/gl Normal MCHC 32.7 LAB L100.1810 11.6-14.6 % Normal RDW CV 13.7 LAB L100.1820 35.1-43.9 fl High RDW SD 46.1 LAB L100.1900 150-450 K/mm3 Normal PLT 331 LAB L100.2000 6.2-12.0 fl Normal MPV 9.0 LAB L100.2100 47-70 % High NEUT% 74.7 LAB L100.2200 19-41 % Low LY% 17.7 LAB L100.2300 0-10 % Normal MONO% 5.9 LAB L100.2400 0-5 % Normal EO% 1.3 LAB L100.2500 0-1 % Normal BASO% 0.3 LAB L100.2550 0.0-0.9 % Normal IM GRAN % 0.100 Result Comment: IG% - Immature Granulocytes (promyelocytes, myelocytes and metamyelocytes) > 1% indicates that a LEFT SHIFT is Present. LAB L100.2620 2.0-7.7 X10 3/uL Normal Absolute Neut 5.2 LAB L100.2720 0.83-4.51 X10 3/ul Normal Absolute Lymph 1.23 Performed By: #### L100.0100 #### [facility] [address] [place], [address] COMPREHENSIVE METABOLIC Collected: 04/19/2017 Status: F Source: [facility] 8:32 AM [facility] REPOSITORY Order Comment: DR. PERSON WANTS THE CRP DR. MENA WANTS THE CMP CBCD MG Comments: MG TYPE CODE TESTS RESULT OUT OF RANGE REFERENCE UNITS LAB L501.0100 70-110 mg/dL High GLU 197 Result Comment: Fasting Glucose result greater than or equal to 126 mg/dL suggests DIABETES MELLITUS per A.D.A. criteria. LAB L501.1000 7-18 mg/dL Normal BUN 17 LAB L501.1100 0.55-1.02 mg/dL Normal CREAT,SERUM 0.61 Result Comment: The validity of the calculated GFR AND GFRAA in patients over 70 years has not been determined. Clinical correlation is essential. LAB L501.1110 >60 mL/min Normal EST GFR 112 Result Comment: Non- GFR Calc LAB L501.1115 >60 mL/min Normal EST GFR - AA 136 Result Comment: GFR Calc LAB L501.1300 10-20 RATIO High BUN/CRE 28.1 LAB L501.1500 6.4-8.2 g/dL T Normal PROT 7.5 LAB L501.1800 3.4-5.0 g/dL Low ALB 2.9 Result Comment: Please note revised Albumin AND Globulin reference range effective 2017. LAB L501.1950 2.2-4.2 g/dL High GLOB 4.6 LAB L501.2000 0.9-2.4 RATIO Low A/G 0.6 LAB L501.2200 8.5-10.1 mg/dL Normal CA 9.0 LAB L501.4100 15-37 U/L Low AST 8 LAB L501.4305 45-117 U/L Normal ALK P 101 LAB L501.4405 12-78 U/L Normal ALT 12 LAB L501.4600 0.20-1.00 mg/dL Normal T BILI 0.20 LAB L501.5300 136-145 mmol/L Low NA 135 LAB L501.5600 3.5-5.1 mmol/L Normal K 3.7 LAB L501.5900 98-107 mmol/L Low CL 97 LAB L501.6100 21.0-32.0 mmol/L Normal CO2 31.0 LAB L501.6200 5-15 Normal GAP 7 Performed By: #### L500.4050, L501.6710, L501.5200 #### [facility] [address] [place], [place], [id number] CRP Collected: 04/19/2017 Status: F Source: [place] 8:32 AM [facility] [place] REPOSITORY Order Comment: DR. PERSON WANTS THE CRP DR. MENA WANTS THE [facility] CBCD MG Comments: MG TYPE CODE TESTS RESULT OUT OF RANGE REFERENCE UNITS LAB L501.6710 0.0-3.0 mg/L High 24.60 C-REACTIVE PROT Result Comment: C-Reactive Protein (CRP) provides useful information for the diagnosis, therapy and monitoring of inflammatory processes and associated diseases. For the evaluation of Relative Risk for Cardiovascular Disease, a High Sensitivity CRP (HSCRP) should be ordered. Performed By: #### L500.4050, L501.6710, L501.5200 #### [facility] [address] [place], [place], [id number] MAGNESIUM Collected: 04/19/2017 Status: F Source: [place] 8:32 AM [facility] [place] REPOSITORY Order Comment: DR. PERSON WANTS THE CRP DR. MENA WANTS THE [facility] CBCD MG Comments: MG TYPE CODE TESTS RESULT OUT OF RANGE REFERENCE UNITS LAB L501.5200 1.8-2.4 mg/dL Low MG 1.0 Performed By: #### L500.4050, L501.6710, L501.5200 #### [facility] [place], [address] HOSP Observed: 04/19/2017 Status: COMPLETED Source: [place] 12:00 AM [facility] REPOSITORY Patient Update (HEMAWS) PEDRO LUIS WILCOX ([id number]) 1970 F Date Time Provider Department 04/19/17 EMRE MCDONOUGH) DANYEL During your visit today, we recorded the following information about you: Emre Mcdonough RN 04/21/2017 2:07 PM Signed LATE NOTE FOR 04/19/17: IRB# [id number]. ?Randomized on: 01/28/2017. ?ARM: Blinded. Reporting Period: 04/08/17 - 04/19/17: ?? Patient is here?for Cycle #4. ?Physical exam, toxicities, labs and medications reviewed with Clifford Barakat, DO Patient meets protocol requirements for treatment. ? ECOG Score: 0- Fully active, able to carry on all pre-disease performance w/o restriction.? ?? Toxicities: CTCAE V. 4 ? Nausea, denies any today. Except thinking about and talking about the treatment is making her feel nauseated. Fatigue, grade 2, Definitely Related. Patient continues with fatigue but better since not working. Sore throat, grade 1, Unrelated Denies other C/O's CT chest and Bone scan reviewed with patient at this visit. See 's note from today. Patient was in the ER on 04/09/18 for fever. Did not stay overnight. Treated with Tylenol and fluids. Fever, grade 1, 101.8. Unrelated. Resolved while in ER Hyperglycemia, 471, grade 3, Possible related. Treated with insulin. Patient sent home in stable condition. Dr. Barakat does not feel that increased glucose meets criteria in 16.1 as reportable and no [place] needed. Other labs during ER visit: Increased Creatinine, 1.16, grade 1, Unlikely Related Hyponatremia, 135, grade 1, Unlikely Related. ? Labs earlier today drawn at [facility]: CBC Hgb 10.5, grade 1, definitely related Mg, 1.0, grade 1, Unlikely Related Hyponatremia, 135, grade 1, Unlikely Related Glucose, 197, non-fasting and not reportable ? Menopausal Status: Post Contraception: Hysterectomy LMP: na ?? Research Labs: (Time/Type/Sent to): ?None? QOL / Questionnaires: N/A? ? The patient misplaced her study medication diary and returned 2 bottles of ?Veliparib vs Placebo with 9 and 64 capsules remaining. ?Per note and patient verbal, patient missed 7 and 1/2 days of treatment ( see note 04/08/17-patient took one dose on 04/04/17 and then all her doses 04/05/17 - 04/10/17)due to grade 3 N/V this past cycle. Patient is compliant with study medication self administration as protocol states to hold medication for grade 3 or higher AE's and resume once recovered back to grade 1 or lower which was done. The patient will be given a new study medication diary and bottle of Veliparib vs Placebo tomorrow with start of Cycle #4. Patient will also have her Cisplatin dose reduced per protocol instruction for recurring N/V grade 3. Dr. Barakat does not feel the study pills are contributing at this time and no dose reduction needed for those at this time. Pharmacy and chemo nursing aware. Patient will also be scheduled for IV hydration with phenergan on Day 2 and 3. Emre Mcdonough RN Allergies As of Date: 04/19/2017 (No Known Allergies) Date Reviewed: 04/19/2017 Reviewed by: Suze Ramirez RN - Fully Assessed Reason for Visit: Clinical Trial Nurse Note [Other] Cmt: [id number] Prescriptions as of 04/19/2017 Sig: LORAZEPAM 1 MG TABLET Take 1 tablet by mouth every * PROMETHAZINE 25 MG RECTAL SUP* 25 mg by RECTAL route every 6* PROMETHAZINE 25 MG TABLET Take 1 tablet by mouth every * OLANZAPINE 10 MG TABLET Take 1 tablet by mouth daily * LIDOCAINE-PRILOCAINE 2.5 %-2.* Apply 1 application to affect* CITALOPRAM 20 MG TABLET Take 1 tablet by mouth once d* CLONAZEPAM 0.5 MG TABLET 1 tablet twice daily. PRN LORAZEPAM 0.5 MG TABLET 1 tablet twice daily. Prn NITROFURANTOIN MONOHYDRATE AND * Take 100 mg by mouth twice da* EMPAGLIFLOZIN 10 MG TABLET Take 10 mg by mouth once gamaliel* VITAMIN B COMPLEX CAPSULE Take 1 capsule by mouth twice* MOMETASONE-FORMOTEROL HFA 200* Inhale 2 Puffs as instructed * CREON ORAL Take 6,000 Units by mouth. Wi* MOBIC ORAL Take 10 mg by mouth once gamaliel* CELEBREX ORAL Take 1 capsule by mouth twice* OMEPRAZOLE 40 MG CAPSULE,PRO* Take 1 capsule by mouth twice* VALACYCLOVIR 500 MG TABLET Take 500 mg by mouth as neede* ERGOCALCIFEROL (VITAMIN D2) 5* Take 50,000 Units by mouth on* * BUPROPION HCL SR 150 MG TABLE* Take 1 tablet by mouth twice * * INSULIN GLARGINE 100 UNIT/ML * Take 50 in am and 70 units in* * HUMALOG KWIKPEN 100 UNIT/ML S* 15 in am, 15 noon, 20 in philip Problem List As Of Date 04/19/2017 Noted Resolved THYROID NODULE [E04.1] INVALID FOR* More... Anxiety State, Unspecified [F41.1] 01/22/2009 Depressive Disorder, not Elsewhere Classified [* Priority: Moderate More... DM w/o complication type II, uncontrolled [E11.*INVALID FOR* Priority: Severe More... Other Malaise and Fatigue [R53.81, R53.83] INVALID FOR*01/22/2009 More... HYPERLIPIDEMIA NEC/NOS [E78.5] INVALID FOR* FIBROMYALGIA [HHV5806] INVALID FOR* Priority: Moderate OVERWEIGHT [E66.9] INVALID FOR* OTHER HAMMER TOE [M20.40] INVALID FOR* More... URIN TRACT INFECTION RECURRENT [N39.0] INVALID FOR*01/21/2016 More... GENITAL HERPES NOS [A60.00] INVALID FOR* Tobacco Use Disorder [F17.200] INVALID FOR* Priority: Moderate More... CONGENITAL PES PLANUS [Q66.50] INVALID FOR* Displacement of Lumbar Intervertebral Disc with*INVALID FOR* Priority: Moderate More... More... Routine Gynecological Examination [Z01.419] INVALID FOR* Class: Chronic More... 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*INVALID FOR* Malignant neoplasm metastatic to left lung (HCC*INVALID FOR* Examination of participant in clinical trial [Z*INVALID FOR* Visit Notes: >> Emre (Rn) Ceasar Farrell Apr 21, 2017 11:41 AM Status: Signed LATE NOTE FOR 04/19/17: IRB# [id number]. ?Randomized on: 01/28/2017. ?ARM: Blinded. Reporting Period: 04/08/17 - 04/19/17: ?? Patient is here?for Cycle #4. ?Physical exam, toxicities, labs and medications reviewed with Clifford Barakat, DO Patient meets protocol requirements for treatment. ? ECOG Score: 0- Fully active, able to carry on all pre-disease performance w/o restriction.? ?? Toxicities: CTCAE V. 4 ? Nausea, denies any today. Except thinking about and talking about the treatment is making her feel nauseated. Fatigue, grade 2, Definitely Related. Patient continues with fatigue but better since not working. Sore throat, grade 1, Unrelated Denies other C/O's CT chest and Bone scan reviewed with patient at this visit. See 's note from today. Patient was in the ER on 04/09/18 for fever. Did not stay overnight. Treated with Tylenol and fluids. Fever, grade 1, 101.8. Unrelated. Resolved while in ER Hyperglycemia, 471, grade 3, Possible related. Treated with insulin. Patient sent home in stable condition. Dr. Barakat does not feel that increased glucose meets criteria in 16.1 as reportable and no [place] needed. Other labs during ER visit: Increased Creatinine, 1.16, grade 1, Unlikely Related Hyponatremia, 135, grade 1, Unlikely Related. ? Labs earlier today drawn at [facility]: CBC Hgb 10.5, grade 1, definitely related Mg, 1.0, grade 1, Unlikely Related Hyponatremia, 135, grade 1, Unlikely Related Glucose, 197, non-fasting and not reportable ? Menopausal Status: Post Contraception: Hysterectomy LMP: na ?? Research Labs: (Time/Type/Sent to): ?None? QOL / Questionnaires: N/A? ? The patient misplaced her study medication diary and returned 2 bottles of ?Veliparib vs Placebo with 9 and 64 capsules remaining. ?Per note and patient verbal, patient missed 7 and 1/2 days of treatment ( see note 04/08/17-patient took one dose on 04/04/17 and then all her doses 04/05/17 - 04/10/17)due to grade 3 N/V this past cycle. Patient is compliant with study medication self administration as protocol states to hold medication for grade 3 or higher AE's and resume once recovered back to grade 1 or lower which was done. The patient will be given a new study medication diary and bottle of Veliparib vs Placebo tomorrow with start of Cycle #4. Patient will also have her Cisplatin dose reduced per protocol instruction for recurring N/V grade 3. Dr. Barakat does not feel the study pills are contributing at this time and no dose reduction needed for those at this time. Pharmacy and chemo nursing aware. Patient will also be scheduled for IV hydration with phenergan on Day 2 and 3. Emre Mcdonough RN Encounter Status:Closed by EMRE MCDONOUGH on 04/21/17 CHEST WITH CONTRAST Observed: 04/15/2017 Status: F Source: [place] 7:51 AM [facility] [place] REPOSITORY [facility] Imaging Services [address] [place] [address] Chest WITH Contrast MR#: [id number] Acct: [id number] Name: PEDRO LUIS WILCOX Rep #: [id number] : 1970 F 46 From: Gildardo Steen PCP: Jacinto Person MD Status: REG CLI Study: Chest WITH Contrast Date of Exam: 04/15/17 Exam# [id number] Ordering Dr: Clifford Barakat DO STUDY: CT CHEST WITH CONTRAST REASON FOR EXAM: Female, 46 years old. History breast and lung cancer RADIATION DOSAGE (If Supplied By Facility): CTDIvol = ( 10.41 ) mGy, DLP = ( 538.55 ) mGycm TECHNIQUE: Transaxial imaging was performed following intravenous administration of 100 ml of Isovue 300 contrast material. Multiplanar coronal and sagittal images were reformatted. Individualized dose optimization techniques were used for this CT. COMPARISON: 01/20/2017. FINDINGS: Left Port-A-Cath in place with the tip in lower SVC. Right middle lobe consolidation. Lingular 4 mm pulmonary nodule. There is no demonstrated pleural abnormality. Normal heart and pericardium. Normal mediastinum. Normal hilar regions. Normal enhanced pulmonary arteries. Normal aorta arch and descending thoracic aorta. Normal osseous structures. There is no demonstrated abnormality of the visualized upper abdomen. CT/Chest WITH Contrast IMPRESSION: Right middle lobe consolidation. Smaller lingular pulmonary nodule measuring 4 mm. Electronically Signed: Gildardo Steen DO at 7:31 EST , Service support , CC: Jacinto Person MD; Clifford Barakat DO Family And Consumer Education Teacher: Signed BONE SCAN WHOLE Observed: 04/13/2017 Status: F Source: [place] BODY 7:54 AM [facility] [place] REPOSITORY [facility] Imaging Services [address] [place] [address] Bone Scan Whole Body MR#: [id number] Acct: [id number] Name: PEDRO LUIS WILCOX Rep #: [id number] : 1970 F 46 From: Clay Real DO PCP: Raza VELAZQUEZ,Jacinto Status: REG CLI Study: Bone Scan Whole Body Date of Exam: 04/13/17 Exam# [id number] Ordering Dr: Clifford Barakat DO CLINICAL: 46-year-old female with reported history of carcinoma of the breast. WHOLE BODY 99m Tc MDP RADIONUCLIDE BONE SCINTIGRAPHY COMPARISON: Previous whole body bone scintigraphy study dated 02/03/2017 FINDINGS: Following the intravenous administration of 25.7 mCi of 99m Tc MDP, whole body bone images reveal: 1. Increased radiopharmaceutical concentration is currently identified in the right femoral head-neck not readily apparent on the previous examination dated 02/03/2017. 2. Facilitated tracer concentration is visualized in the right anterolateral 10th rib. 3. Enhanced uptake is currently defined in the sternoclavicular and acromioclavicular compartments of both shoulders, bilateral elbows, right wrist, lower cervical spine posteriorly on the left, ninth thoracic vertebra posteriorly on the left, fourth lumbar vertebra posteriorly on the left, the right ankle, the right-left forefoot. 4. The remaining skeletal structures are scintigraphically unremarkable with normal-appearing renal images and urinary bladder activity identified. NM/Bone Scan Whole Body IMPRESSION: 1. The increase in radiopharmaceutical concentration visualized in the right proximal femur may represent trauma-fracture or the revascularization phase of osteonecrosis. Plain film radiography correlation is recommended for further evaluation. 2. Increased uptake visualized in the right anterolateral 10th rib is most consistent with trauma-fracture. 3. Degenerative arthritis appears expressed in the bilateral shoulder and elbow articulations, right wrist, cervical, thoracic and lumbar spine, the right ankle, forefoot bilaterally. 4. Overall compared to the previous whole body bone scintigraphy study dated 02/03/2017, newly identified increased uptake noted in the right proximal femur may be further investigated with plain film radiography as described above. There is no definitive current typical scintigraphic evidence of diffuse axial skeletal metastasis on the current examination. Electronically Signed: Clay Real DO at 10:21 EST Tel , Service support , CC: Jacinto Person MD; Clifford Barakat DO Family And Consumer Education Teacher: Signed EMERGENCY DEPARTMENT Observed: 04/10/2017 Status: F Source: [place] SUMMARY 12:25 AM [facility] [place] REPOSITORY [facility] Medical Records Department [address] [place] [address] Emergency Department Summary 04/09/17 2144 MR#: [id number] Acct: [id number] Name: PEDRO LUIS WILCOX Rep #: [id number] : 1970 46 From: Adán Tee MD PCP: Jacinto Person MD Status: DEP ER - ER Visit Summary Date of Service: 04/09/17 Chief Complaint: On chemotherapy and fever History of Present Illness: The patient is a 46 F history of breast CA with metastases. Patient was admitted to the hospital about a week ago for nausea vomiting. Started having a fever tonight as high as 101.8. Denies any significant cough. Denies any chest or abdominal pain. Denies any severe headache. Denies any dysuria. Was sent in by her oncologist Dr. Clifford Barakat who I spoke with on the phone. Physical Examination: Middle-aged female no acute distress. Vital signs are stable she does have a fever here of 101.8. Pulse ox 97% on room air no signs of hypoxia. She is in no distress. HEENT exam TMs are normal bilateral. Posterior pharynx moist and pink. No erythema no exudate. No trouble swallowing or breathing. No stridor. No drooling. Neck nontender no lymphadenopathy. No meningismus. Lungs clear to auscultation bilaterally. Heart tachycardic no murmur. Abdomen soft and nontender. Normal bowel sounds. No peritoneal signs. She is moving all 4 extremities. They are nontender. Normal range of motion. Back exam nontender. Skin unremarkable. No rashes. Neurologically she is awake and alert without focal motor deficits. Test Results: CBC shows a white count of 10.8. H AND H 1133. No bands. Electrolytes unremarkable. Anion gap of 9. BUN and creatinine are 20 and 1.1. Her glucose is elevated at 471. Chest x-ray shows no acute abnormality. There is atelectasis in the right base. Clinically this does not appear to be an infiltrate on the lateral. Emergency Department Course and Treatment: Patient with known breast CA with metastases on chemotherapy with a fever. Treatment Plan: Patient clinically is not neutropenic. She looks much better to Tylenol and IV fluids. She is feeling better on repeat exam. She will be discharged to home. To follow-up with her oncologist Dr. Barakat. She knows to return if worse. Dr. Barakat and I discussed her clinical presentation, labs and care prior to discharge. Patient was treated with long-acting insulin for her hyperglycemia. She will recheck her blood sugar at home prior to going to sleep and do sliding scale insulin as needed. Disposition: Discharge Impression: Acute fever secondary to viral syndrome History of breast CA with metastases on chemotherapy Hyperglycemia history of insulin-dependent diabetes This note was generated with [email or web address] software. It may contain incorrect words, spelling, and punctuation that were not noted in review of the chart prior to signing ED Disposition - Plan for ED Patient: Chief Complaint: Fever Referrals: Jacinto Person MD [Primary Care Provider] - What to do if you have Problems For any increased pain, shortness of breath, bleeding, nausea or vomiting, chest pain, or any unexpected problems, contact your Primary Care Provider. Call [facility] ([phone]) or report to the closest Emergency Room. Call 911 if necessary. 04/10/17 0025 <Electronically signed by Adán Tee MD> Date Aádn Tee MD Cosigner Signature (If Indicated): Date CC: Jacinto Person MD DISCHARGE INSTRUCTION Observed: 04/10/2017 Status: F Source: [place] 12:25 AM [facility] Medical Records Department [address] [place] [address] Discharge Instruction 04/10/17 0003 MR#: [id number] Acct: [id number] Name: PEDRO LUIS WILCOX Rep #: [id number] : 1970 46 From: Adán Tee MD PCP: Jacinto Person MD Status: [facility] ER ED Disposition - Plan for ED Patient: Disposition: Home or Assisted Living Chief Complaint: Fever Instructions: ED Fever Unconf Cause Referrals: Clifford Barakat DO [STAFF PHYSICIAN] - 3-5 Days if not improving Additional Instructions: Alternate Tylenol and Motrin for your fever. Plenty of fluids and rest. Call and follow-up with Dr. Barakat to ensure your improving. Return to the ER if feeling worse. What to do if you have Problems For any increased pain, shortness of breath, bleeding, nausea or vomiting, chest pain, or any unexpected problems, contact your Primary Care Provider. Call [facility] ([phone]) or report to the closest Emergency Room. Call 911 if necessary. 04/10/17 0025 <Electronically signed by Adán Tee MD> Date Adán Tee MD Cosigner Signature (If Indicated): Date CC: Jacinto Person MD BEDSIDE GLUCOSE Collected: 04/09/2017 Status: F Source: [place] 11:36 PM [facility] REPOSITORY TYPE CODE TESTS RESULT OUT OF REFERENCE UNITS RANGE LAB L501.080 70-110 mg/dL High BEDSIDE GLU 418 Result Comment: MANAGEMENT OF PATIENT CARE PER NURSING PROTOCOL Performed By: #### L501.080 #### [facility] Point of Care [facility] [place] [address] URINALYSIS, COMPLETE Collected: 04/09/2017 Status: F Source: [place] 11:10 PM [facility] REPOSITORY Order Comment: How was Urine Obtained? WEB ANALYTICS SPECIALIST TO SPECIFY TYPE CODE TESTS RESULT OUT OF RANGE REFERENCE UNITS LAB L400.3000 Yellow COLOR Normal Straw LAB L400.3050 Clear Normal CLARITY Clear LAB L400.3200 Normal mg/dl High GLUCOSE, UR 1000 LAB L400.3300 Negative mg/dL Normal BILIRUBIN URINE Negative LAB L400.3400 Negative mg/dl High 15 KETONE UR LAB L400.3465 1.002-1.030 Normal SP.GR. DIPSTX 1.005 LAB L400.3550 5.0 - 8.0 pH UR Normal 7.0 LAB L400.3600 Negative mg/dl High PROT 30 DIPSTX LAB L400.3700 Normal mg/dl Normal UROBILI Normal LAB L400.3750 Negative Normal NITRITE UR Negative LAB L400.3780 Negative /ul Normal OCCULT BLOOD-UR Negative LAB L400.3800 Negative /ul LEUK Normal ESTERASE Negative LAB L400.4050 0-5 /hpf WBC Normal 0-5 SEEN LAB L400.4100 0-5 /hpf 0 Normal RBC-UA SEEN LAB L400.4150 5-10 /hpf SQUAM 0 Normal EPI SEEN LAB L400.4300 None Seen /hpf 0 Normal BACTERIA SEEN LAB L400.4350 <or=2+ /hpf 0 Normal MUCUS, URINE SEEN Performed By: #### L400.0001 #### [facility] [address] [place], [address] Observed: 04/09/2017 Status: F Source: [place] CULTURE, BLOOD (WB) 9:57 PM [facility] REPOSITORY BC No growth in 5 days. Performed By: #### M200.1000 #### [facility] [address] [place], [address] CBC W/DIFF, AUTOMATED Collected: 04/09/2017 Status: F Source: [place] 9:55 PM [facility] REPOSITORY TYPE CODE TESTS RESULT OUT OF RANGE REFERENCE UNITS LAB L100.1000 4.4-11.0 K/mm3 Normal WBC 10.8 LAB L100.1200 4.2-5.4 M/mm3 Low RBC 3.66 LAB L100.1300 12.0-15.0 g/dl Low HGB 11.2 LAB L100.1400 37-47 % Low HCT 33.8 LAB L100.1500 81-99 fL Normal MCV 92.3 LAB L100.1600 27.0-32.0 pg Normal MCH 30.6 LAB L100.1700 32-36 g/gl Normal MCHC 33.1 LAB L100.1810 11.6-14.6 % Normal RDW CV 13.0 LAB L100.1820 35.1-43.9 fl Normal RDW SD 42.8 LAB L100.1900 150-450 K/mm3 Normal PLT 234 LAB L100.2000 6.2-12.0 fl Normal MPV 9.1 LAB L100.2100 47-70 % High NEUT% 86.3 LAB L100.2200 19-41 % Low LY% 10.0 LAB L100.2300 0-10 % Normal MONO% 3.2 LAB L100.2400 0-5 % Normal EO% 0.1 LAB L100.2500 0-1 % Normal BASO% 0.1 LAB L100.2550 0.0-0.9 % Normal IM GRAN % 0.300 Result Comment: IG% - Immature Granulocytes (promyelocytes, myelocytes and metamyelocytes) > 1% indicates that a LEFT SHIFT is Present. LAB L100.2620 2.0-7.7 X10 3/uL High Absolute Neut 9.3 LAB L100.2720 0.83-4.51 X10 3/ul Normal Absolute Lymph 1.08 Performed By: #### L100.0100 #### [facility] [address] [place], [address] BASIC METABOLIC Collected: 04/09/2017 Status: F Source: [place] PROFILE (BMP) 9:55 PM [facility] REPOSITORY TYPE CODE TESTS RESULT OUT OF RANGE REFERENCE UNITS LAB L501.0100 70-110 mg/dL High alert GLU 471 Result Comment: Critical Result(s) Called Criss MUSA at: 22:47:37 04/09/2017 by: AMEYA WHITE Glucose result greater than or equal to 200 mg/dL suggests DIABETES MELLITUS per A.D.A. criteria. LAB L501.1000 7-18 mg/dL High BUN 28 LAB L501.1100 0.55-1.02 mg/dL High CREAT,SERUM 1.16 Result Comment: The validity of the calculated GFR AND GFRAA in patients over 70 years has not been determined. Clinical correlation is essential. LAB L501.1110 >60 mL/min Low EST GFR 53 Result Comment: Non- GFR Calc LAB L501.1115 >60 mL/min Normal EST GFR - AA 64 Result Comment: GFR Calc LAB L501.1255 ml/min Normal Estimated CRCL 58.30 LAB L501.1300 10-20 RATIO High BUN/CRE 24.1 LAB L501.2200 8.5-10 mg/dL Normal .1 CA 8.9 LAB L501.5300 136-14 mmol/L Low 5 NA 135 LAB L501.5600 3.5-5. mmol/L Normal 1 K 3.6 LAB L501.5900 98-107 mmol/L Low CL 92 LAB L501.6100 21.0-3 mmol/L High 2.0 CO2 34.0 LAB L501.6200 5-15 Normal GAP 9 Performed By: #### L500.2500 #### [facility] [address] [place], [address] Observed: 04/09/2017 Status: F Source: [place] CULTURE, BLOOD (WB) 9:55 PM [facility] REPOSITORY BC No growth in 5 days. Performed By: #### M200.1000 #### [facility] [address] [place], [address] CHEST PA AND LATERAL Observed: 04/09/2017 Status: F Source: [place] 9:31 PM [facility] REPOSITORY [facility] Imaging Services [address] [place] [address] Chest PA and Lateral MR#: [id number] Acct: [id number] Name: PEDRO LUIS WILCOX Rep #: [id number] : 1970 F 46 From: Abilio Orr MD PCP: Raza VELAZQUEZ,Jacinto Status: REG ER Study: Chest PA and Lateral Date of Exam: 04/09/17 Exam# [id number] Ordering Dr: Adán Tee MD STUDY: X-RAY CHEST REASON FOR EXAM: Female, 46 years old. Cough and fever. Chemotherapy. TECHNIQUE: Frontal and lateral views of the chest. COMPARISON: None. FINDINGS: Left Mediport catheter terminates near the cavoatrial junction. Normal lung volumes. Atelectasis or infiltrate in the anterior right lung base. No effusions. Normal size heart. Normal mediastinum and brandi. Normal visualized pulmonary arteries. Normal visualized aortic arch and descending thoracic aorta. There are diffuse degenerative changes of the visualized thoracic spine. Normal visualized ribs, clavicles, and shoulders. There is no demonstrated abnormality of the visualized soft tissue structures of the upper abdomen. RAD/Chest PA and Lateral IMPRESSION: Atelectasis or infiltrate in the right lung base. Electronically Signed: Abilio Orr MD at 22:50 EST , Service support , CC: Jacinto Person MD; Adán Tee MD Family And Consumer Education Teacher: Signed NISHANT Observed: 04/08/2017 Status: COMPLETED Source: [place] 12:00 AM [facility] REPOSITORY Telephone (DANYEL) PEDRO LUIS WILCOX ([id number]) 1970 F Date Time Provider Department 04/08/17 EMRE MCDONOUGH (BRITTNEY) DANYEL During your visit today, we recorded the following information about you: Emre Mcdonough RN 04/08/2017 1:57 PM Signed I called patient to clarify how many study pills she took last week. She took dose on Wednesday 03/28 but she vomited it back up. She did not take another one. So, she did not have any doses 03/28/17 - 04/03/17 and started them on 04/04/17 and has not had any issues. She also mentioned to me that she is having a problem with getting nauseated just thinking about her chemotherapy and was starting to feel sick while she was talking with me. She was physically getting sick and felt like she was going to throw up. I'm not sure how much Ativan she is trying but she mentioned worrying that she would get addicted to it. I tried to reassure her and let her know that we could discuss at next appointment with you. She denied any other issues/concerns at this time and really wanted to end the call because the conversation was making her nauseated. BRITTNEY Ruby DO 04/08/2017 2:29 PM Signed Noted. Thank you. DO Emre Banda RN 10/25/2017 12:18 PM Addendum Patient into [facility] 03/30/17 - 04/02/17 Nausea, grade 3, Definitely Related Vomiting, grade 3, Definitely Related Hypokalemia, grade 3, Unlikely Related Hypomagnesemia, grade 1, Unlikely Related Hypophosphatemia, grade 2, Unlikely Related. Anemia, grade 1, Definitely related Decreased neutrophil count, grade 2, Definitely related dehydration, grade 2, Definitely related Emre Mcdonough RN Allergies As of Date: 04/08/2017 (No Known Allergies) Date Reviewed: 03/28/2017 Reviewed by: Ananya Marcelo (Rn) BRITTNEY Hawkins - Fully Assessed Reason for Visit: Patient Update [1234] Cmt: S1416 Prescriptions as of 04/08/2017 Sig: LORAZEPAM 1 MG TABLET Take 1 tablet by mouth every * X PROMETHAZINE 25 MG RECTAL SUP* 25 mg by RECTAL route every 6* X PROMETHAZINE 25 MG TABLET Take 1 tablet by mouth every * X OLANZAPINE 10 MG TABLET Take 1 tablet by mouth daily * LIDOCAINE-PRILOCAINE 2.5 %-2.* Apply 1 application to affect* CITALOPRAM 20 MG TABLET Take 1 tablet by mouth once d* CLONAZEPAM 0.5 MG TABLET 1 tablet twice daily. PRN NITROFURANTOIN MONOHYDRATE AND * Take 100 mg by mouth twice da* EMPAGLIFLOZIN 10 MG TABLET Take 10 mg by mouth once gamaliel* VITAMIN B COMPLEX CAPSULE Take 1 capsule by mouth twice* CREON ORAL Take 6,000 Units by mouth. Wi* X LORAZEPAM 0.5 MG TABLET 1 tablet twice daily. Prn X MOMETASONE-FORMOTEROL HFA 200* Inhale 2 Puffs as instructed * X MOBIC ORAL Take 15 mg by mouth once gamlaiel* X CELEBREX ORAL Take 1 capsule by mouth twice* X OMEPRAZOLE 40 MG CAPSULE,RPO* Take 1 capsule by mouth twice* VALACYCLOVIR 500 MG TABLET Take 500 mg by mouth as neede* ERGOCALCIFEROL (VITAMIN D2) 5* Take 50,000 Units by mouth on* X * BUPROPION HCL SR 150 MG TABLE* Take 1 tablet by mouth twice * * INSULIN GLARGINE (U-100) 100 * Take 50 in am and 70 units in* * HUMALOG KWIKPEN (U-100) INSUL* 15 in am, 15 noon, 20 in philip Problem List As Of Date 04/08/2017 Noted Resolved THYROID NODULE [E04.1] INVALID FOR* More... Anxiety State, Unspecified [F41.1] 01/22/2009 Depressive Disorder, not Elsewhere Classified [* Priority: Moderate More... DM w/o complication type II, uncontrolled [E11.*INVALID FOR* Priority: Severe More... Other Malaise and Fatigue [R53.81, R53.83] INVALID FOR*01/22/2009 More... HYPERLIPIDEMIA NEC/NOS [E78.5] INVALID FOR* FIBROMYALGIA [LSI2551] INVALID FOR* Priority: Moderate OVERWEIGHT [E66.9] INVALID FOR* OTHER HAMMER TOE [M20.40] INVALID FOR* More... URIN TRACT INFECTION RECURRENT [N39.0] INVALID FOR*01/21/2016 More... GENITAL HERPES NOS [A60.00] INVALID FOR* Tobacco Use Disorder [F17.200] INVALID FOR* Priority: Moderate More... CONGENITAL PES PLANUS [Q66.50] INVALID FOR* Displacement of Lumbar Intervertebral Disc with*INVALID FOR* Priority: Moderate More... More... Routine Gynecological Examination [Z01.419] INVALID FOR* Class: Chronic More... 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*INVALID FOR* Malignant neoplasm metastatic to left lung (HCC*INVALID FOR* Examination of participant in clinical trial [Z*INVALID FOR* Encounter Status:Closed by EMRE MCDONOUGH on 04/08/17 PROGRESS Observed: 04/07/2017 Status: COMPLETED Source: [place] 2:48 PM [facility]IN[facility] REPOSITORY [facility] ID: [id number] Author: Isha Servin (Sw) Service: (none) Author Type: Ball Rolling Machine Operator Type: Progress Notes Filed: 04/07/2017 2:55 PM Note Text: Social Work Problem Referral Note INFORMATION/REFERRAL : Pedro Luis Wilcox 46 year old female was referred by [facility] Social Work for the following reason(s): FMLA and STD PERSONS INTERVIEWED: patient and [employer] STD and leave representatives INTERVENTION: Phone Contact Affect/Mood: The patient is noted as appropriate IDENTIFIED PROBLEMS/NEEDS: Continue to assess/collaborate Intervention/Referral to be provided:Arrangements made for continuity of care IMPRESSION/PLAN: Patient called HILARIO and stated she received paperwork from [facility] stating that she is only approved for her leave through 05/07/17. HILARIO looked at the paperwork that had been sent to [facility] earlier this month and noted that the dates sent were good through September 2017. SW called [facility] to sort this out. STD department stated that patient will only require updated information be sent by 05/07/17. She recommended we sent this about a week before (04/30/17). Updated office visit notes and a letter from the doctor stating her inability to work can be sent at that time. HILARIO then spoke with the FMLA department and they stated her intermittent leave is approved through September 2017, but for the continuous leave, this goes through STD so the [place] will be based off what STD decides. F/U APPOINTMENT: ANNAMARIA Nunez CNSW Observed: 04/07/2017 Status: COMPLETED Source: [place] 12:00 AM [facility] REPOSITORY Social Work (DANYEL) PEDRO LUIS WILCOX ([id number]) 1970 F Date Time Provider Department 04/07/17 ISHA SERVIN (HILARIO) DANYEL During your visit today, we recorded the following information about you: ANNAMARIA Schroeder 04/07/2017 2:55 PM Signed Social Work Problem Referral Note INFORMATION/REFERRAL : Pedro Luis Wilcox 46 year old female was referred by [facility] Social Work for the following reason(s): FMLA and STD PERSONS INTERVIEWED: patient and [employer] STD and leave representatives INTERVENTION: Phone Contact Affect/Mood: The patient is noted as appropriate IDENTIFIED PROBLEMS/NEEDS: Continue to assess/collaborate Intervention/Referral to be provided:Arrangements made for continuity of care IMPRESSION/PLAN: Patient called HILARIO and stated she received paperwork from [facility] stating that she is only approved for her leave through 05/07/17. HILARIO looked at the paperwork that had been sent to [facility] earlier this month and noted that the dates sent were good through September 2017. SW called [facility] to sort this out. STD department stated that patient will only require updated information be sent by 05/07/17. She recommended we sent this about a week before (04/30/17). Updated office visit notes and a letter from the doctor stating her inability to work can be sent at that time. HILARIO then spoke with the FMLA department and they stated her intermittent leave is approved through September 2017, but for the continuous leave, this goes through STD so the FMLA will be based off what STD decides. F/U APPOINTMENT: PRANNAMARIA Bosch Allergies As of Date: 04/07/2017 (No Known Allergies) Date Reviewed: 03/28/2017 Reviewed by: Ananya MuellerRn) BRITTNEY Hawkins - Fully Assessed Reason for Visit: Social Work Services [507] Cmt: FMLA and STD Prescriptions as of 04/07/2017 Sig: LORAZEPAM 1 MG TABLET Take 1 tablet by mouth every * PROMETHAZINE 25 MG RECTAL SUP* 25 mg by RECTAL route every 6* PROMETHAZINE 25 MG TABLET Take 1 tablet by mouth every * OLANZAPINE 10 MG TABLET Take 1 tablet by mouth daily * LIDOCAINE-PRILOCAINE 2.5 %-2.* Apply 1 application to affect* CITALOPRAM 20 MG TABLET Take 1 tablet by mouth once d* CLONAZEPAM 0.5 MG TABLET 1 tablet twice daily. PRN LORAZEPAM 0.5 MG TABLET 1 tablet twice daily. Prn NITROFURANTOIN MONOHYDRATE AND * Take 100 mg by mouth twice da* EMPAGLIFLOZIN 10 MG TABLET Take 10 mg by mouth once gamaliel* VITAMIN B COMPLEX CAPSULE Take 1 capsule by mouth twice* MOMETASONE-FORMOTEROL HFA 200* Inhale 2 Puffs as instructed * CREON ORAL Take 6,000 Units by mouth. Wi* MOBIC ORAL Take 10 mg by mouth once gamaliel* CELEBREX ORAL Take 1 capsule by mouth twice* OMEPRAZOLE 40 MG CAPSULE,PRO* Take 1 capsule by mouth twice* VALACYCLOVIR 500 MG TABLET Take 500 mg by mouth as neede* ERGOCALCIFEROL (VITAMIN D2) 5* Take 50,000 Units by mouth on* * BUPROPION HCL SR 150 MG TABLE* Take 1 tablet by mouth twice * Patient not taking: Reported on 03/25/2017 * INSULIN GLARGINE 100 UNIT/ML * Take 50 in am and 70 units in* * HUMALOG KWIKPEN 100 UNIT/ML S* 15 in am, 15 noon, 20 in philip Problem List As Of Date 04/07/2017 Noted Resolved THYROID NODULE [E04.1] INVALID FOR* More... Anxiety State, Unspecified [F41.1] 01/22/2009 Depressive Disorder, not Elsewhere Classified [* Priority: Moderate More... DM w/o complication type II, uncontrolled [E11.*INVALID FOR* Priority: Severe More... Other Malaise and Fatigue [R53.81, R53.83] INVALID FOR*01/22/2009 More... HYPERLIPIDEMIA NEC/NOS [E78.5] INVALID FOR* FIBROMYALGIA [ZTV5140] INVALID FOR* Priority: Moderate OVERWEIGHT [E66.9] INVALID FOR* OTHER HAMMER TOE [M20.40] INVALID FOR* More... URIN TRACT INFECTION RECURRENT [N39.0] INVALID FOR*01/21/2016 More... GENITAL HERPES NOS [A60.00] INVALID FOR* Tobacco Use Disorder [F17.200] INVALID FOR* Priority: Moderate More... CONGENITAL PES PLANUS [Q66.50] INVALID FOR* Displacement of Lumbar Intervertebral Disc with*INVALID FOR* Priority: Moderate More... More... Routine Gynecological Examination [Z01.419] INVALID FOR* Class: Chronic More... 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*INVALID FOR* Malignant neoplasm metastatic to left lung (HCC*INVALID FOR* Examination of participant in clinical trial [Z*INVALID FOR* Encounter Status:Closed by ISHA SERVIN on 04/07/17 ALLERGIES ALLERGIES DATE TYPE / CODE NAME / CODE REACTION SEVERITY SOURCE 02/28/2018 Drug No Known Unknown [facility] Allergy/416 Allergies/Z32182 Hospital 519761(SNOM 0388(RXNORM) Repository ED CT) Drug NO KNOWN [facility] Class/23004 ALLERGIES Main [place] 1003(SNOMED Repository CT) ENCOUNTERS ENCOUNTERS ADMIT/DISCHARGE ACCOUNT ADMITTING ENCOUNTER LOCATION SOURCE NUMBER CLASS 04/04/2018/04/04/20 [id number] Ambulatory [address] Repository 04/04/2018 [id number] Ambulatory [facility] Hospital ing:LAB Repository 04/03/2018 [id number] Ambulatory [facility] Hospital ing:RAD Repository 03/30/2018 [id number] [facility]NM Repository 03/27/2018 [id number] Ambulatory [facility] Hospital ing:CT Repository 03/22/2018 [id number] Ambulatory [facility] Hospital ing:MEDOUTP Repository 03/14/2018 [id number] Ambulatory [facility] Hospital ing:MEDOUTP Repository 03/13/2018/03/17/20 [id number] Ambulatory [facility] [facility] Hospital ing:LAB Repository 03/06/2018/03/07/20 [id number] Ambulatory [address] Repository 02/28/2018 [id number] Ambulatory [facility] Hospital ing:MEDOUTP Repository 02/21/2018 [id number] Ambulatory [facility] Hospital ing:MEDOUTP Repository 02/13/2018/02/15/20 [id number] Ambulatory [address] Repository 02/10/2018 [id number] Ambulatory [facility] Hospital ing:MRI Repository 02/07/2018 [id number] Ambulatory [facility] Hospital ing:CT Repository 02/07/2018 [id number] Ambulatory [facility] Hospital ing:MEDOUTP Repository 02/07/2018/02/09/20 [id number] Ambulatory [address] Repository 02/06/2018/02/07/20 [id number] Ambulatory [facility] HospitalBuild Hospital ing:LAB Repository 01/31/2018 [id number] Ambulatory [facility] Hospital ing:MEDOUTP Repository 01/24/2018 [id number] Ambulatory [facility] Hospital ing:LABSPEC Repository 01/24/2018 [id number] [facility] Repository 01/23/2018/01/28/20 [id number] Ambulatory [address] Repository 01/20/2018 [id number] [facility]NM Repository 01/17/2018 [id number] Ambulatory K[facility]inder Kulwinder [facility] Hospital ing:CT Repository 01/06/2018 [id number] [facility] ing:MED[facility]P Repository 01/03/2018 [id number] [facility] ing:MED[facility]P Repository 01/03/2018/01/07/20 [id number] Ambulatory [address] Repository 01/03/2018/01/04/20 [id number] Ambulatory [facility] HospitalBuild Hospital ing:LAB Repository 12/20/2017 [id number] [facility] ing:MEDOUTP Repository 12/13/2017 [id number] [facility] ing:MEDOUTP Repository 12/12/2017/12/15/19 [id number] Ambulatory [address] Repository 12/09/2017 [id number] [facility]:EMPH Repository 12/09/2017/12/20/19 [id number] Ambulatory [facility] Kulwinder [address] [place] [address] HospitalBuild Hospital ing:LAB Repository 12/08/2017 [id number] [facility] ing:CT Repository 12/06/2017 [id number] [facility] ing:NM Repository 11/29/2017 [id number] [facility] ing:MEDOUTP Repository 11/22/2017 [id number] [facility] ing:MEDOUTP Repository 11/21/2017/11/23/19 [id number] Ambulatory [address] Repository 11/18/2017/11/23/19 [id number] Ambulatory [address] Main [place] Repository 11/16/2017/11/18/19 [id number] Emergency [facility] HospitalBuild Hospital ing:ED Repository 11/14/2017/11/15/19 [id number] Ambulatory [facility] HospitalBuild Hospital ing:LAB Repository 11/09/2017 [id number] [facility]S Repository 11/08/2017 [id number] [facility] ing:MEDOUTP Repository 11/03/2017/11/04/19 [id number] Ambulatory BMSBuilding:B Kulwinder[address] Repository 11/01/2017 [id number] Ambulatory [facility] HospitalBuild Hospital ing:MEDOUTP Repository 10/28/2017/11/02/19 [id number] Ambulatory [address] [place] Repository 10/25/2017/10/28/19 [id number] Ambulatory [address] [place] Repository 10/20/2017/10/22/19 [id number] Ambulatory [address] [place] Repository 10/16/2017 [id number] [facility]:LAB Repository 10/11/2017/10/14/19 [id number] Ambulatory [address] [place] Repository 10/10/2017 [id number] Ambulatory [facility] Hospital[facility] Hospital ing:NM Repository 10/10/2017 [id number] [facility] 10/07/2017 [id number] [facility] ing:NM Repository 10/05/2017 [id number] [facility] ing:CT Repository 10/04/2017/10/07/19 [id number] Ambulatory [address] [place] Repository 10/04/2017/10/05/19 [id number] Ambulatory [facility] HospitalBuild Hospital ing:LAB Repository 09/20/2017 [id number] [facility] ing:NM Repository 09/13/2017/09/21/19 [id number] Ambulatory [address] [place] Repository 09/13/2017/09/14/19 [id number] Ambulatory Kulwinder Kulwinder [address] [facility] HospitalBuild Hospital ing:LAB Repository 09/07/2017/09/08/19 [id number] Ambulatory [facility] [address] [place] [address] HospitalBuild Hospital ing:OMD Repository 09/07/2017 [id number] Ambulatory BMSBuilding:B [facility] Repository 08/29/2017/08/30/19 [id number] Emergency Kulwinder [facility] [address] [place] [address] HospitalBuild Hospital ing:ED Repository 08/29/2017 [id number] [facility] ing:ONC Repository 08/23/2017/08/27/19 [id number] Ambulatory [address] Repository 08/23/2017 [id number] [facility] ing:MEDOUTP Repository 08/16/2017 [id number] [facility] ing:CT Repository 08/16/2017 [id number] [facility] ing:NM Repository 08/02/2017/08/06/19 [id number] Ambulatory [address] Repository 08/02/2017/08/03/19 [id number] Ambulatory J[facility] Jelm [address] [place] [address] HospitalBuild Hospital ing:LAB Repository 08/02/2017 [id number] [facility] ing:MEDOUTP Repository 07/12/2017/07/20/19 [id number] Ambulatory [address] [place] Repository 07/12/2017/07/13/19 [id number] Ambulatory J[facility] Kulwinder [address] [place] [address] HospitalBuild Hospital ing:LAB Repository 06/21/2017/06/24/19 [id number] Ambulatory [address] [place] Repository 06/21/2017 [id number] Ambulatory Jelm Jelm [facility] HospitalBuild Hospital ing:RAD Repository 06/20/2017 [id number] [facility] ing:CT Repository 06/09/2017 [id number] [facility] ing:NM Repository 06/01/2017/06/08/19 [id number] Ambulatory [address] Repository 06/01/2017/06/01/19 [id number] Ambulatory [address] Hospital ing:LAB Repository 05/10/2017/05/17/19 [id number] Ambulatory [address] Repository 05/10/2017/05/10/19 [id number] Ambulatory [address] ing:LAB Repository 04/24/2017/04/26/19 [id number] Sementi, Inpatient [address] ing:SC5Hrxv: Repository PG008Eff: 1 04/24/2017 [id number] [facility] 04/24/2017 [id number] Ambulatory [facility] Rep[facility] 04/24/2017 [id number] Ambulatory [facility] Rep[facility] 04/22/2017 [id number] Ambulatory [facility] ing:MEDOUTP Repository 04/21/2017 [id number] Ambulatory [facility] Hospital ing:MEDOUTP Repository 04/20/2017/04/27/19 [id number] Ambulatory [address] Repository 04/19/2017/04/27/19 [id number] Ambulatory [address] Repository 04/19/2017 [id number] Ambulatory [facility] Repository 04/15/2017 [id number] Ambulatory [facility] ing:CT Repository 04/13/2017 [id number] Ambulatory [facility] Hospital ing:NM Repository 04/09/2017/04/10/20 [id number] Emergency [address] ing:ED Repository PAYERS PAYERS ENCOUNTER GUARANTOR PAYER SUBSCRIBER SOURCE 04/04/2018 TOSHIA Valdez Primary Insurance:[facility] PEDRO LUIS Miramontes [id number] [facility] KENNEDYDOB: [facility] 8625[place]85[place] Number: Repository [address]Gfz: (907) [id number] [phone] (HP) Date:7552-59-60KS [address] [address]NVIMCWIXW, [place] [address]WQ: CHECK WEBSITE 04/04/2018 Secondary NOT GIVENUNK Kulwinder Insurance:SELF PAY [facility] Number: Effective Repository Date:2018-03-20 04/03/2018 TOSHIA H Primary Insurance:[facility] PEDRO LUIS Kulwinder [id number] [facility] KENNEDYB: [facility] [id number], [place] Number: Repository [address]Kmv: 330 [id number] [phone] (HP) Date:4238-15-65TS [address] [address]CPATNXSVV, [place] [address]LR: CHECK WEBSITE 04/03/2018 Secondary NOT GIVENUNK Kulwinder Insurance:SELF PAY [facility] Number: Effective Repository Date:2018-04-03 03/30/2018 TOSHIA H Primary Insurance:[facility] Jelm [id number] [facility] [id number], [place] Number: Repository [address]Wzx: 330 [id number] [phone] () Date:3451-44-73FP [address] [address]HTSGOHWXR, [place] [address]JZ: CHECK WEBSITE 03/30/2018 Secondary NOT GIVENUNK Kulwinder Insurance:SELF PAY [facility] Number: Effective Repository Date:2018-03-13 03/27/2018 TOSHIA H Primary Insurance:[facility] Jelm [id number] [facility]: [facility] [id number], [place] Number: Repository [address]Tma: 330 [id number] [phone] (HP) Date:4698-86-14JH [address] [address]URGOATHXW, [place] [address]RG: CHECK WEBSITE 03/27/2018 Secondary NOT GIVENUNK Jelm Insurance:SELF PAY [facility] Number: Effective Repository Date:2018-03-13 03/22/2018 TOSHIA H Primary Insurance:[facility] LANEYPATTI Williamson Kulwinder [id number] [facility] KENNEDYDOB: [facility] [id number], [place] Number: Repository [address]Jrb: 330 [id number] [phone] (HP) Date:3495-88-30RX [address] [address]VCRNEKDWC, [place] [address]WV: CHECK WEBSITE 03/22/2018 Secondary NOT GIVENUNK Jelm Insurance:SELF PAY [facility] Number: Effective Repository Date:2018-03-20 03/14/2018 TOSHIA H Primary Insurance:[facility] PEDRO LUIS Williamson Kulwinder [id number] [facility] KENNEDYDOB: [facility] [id number], [place] Number: Repository [address]Gqx: 330 [id number] [phone] (HP) Date:4163-71-64CU [address] [address]EGYQHDZNX, [place] [address]LR: CHECK WEBSITE 03/14/2018 Secondary NOT GIVENUNK Jelm Insurance:SELF PAY [facility] Number: Effective Repository Date:2018-03-13 03/13/2018 TOSHIA H Primary Insurance:[facility] PEDRO LUIS Williamson Kulwinder [id number] [facility]ENN[facility]B: [facility] [id number], [place] Number: Repository [address]Oia: 330 [id number] [phone] (HP) Date:1792-88-35XU [address] [address]AKQQPDRRF, [place] [address]ET: CHECK WEBSITE 03/13/2018 Secondary NOT GIVENUNK Kulwinder Insurance:SELF PAY [facility] Number: Effective Repository Date:2018-02-16 02/28/2018 TOSHIA H Primary Insurance:[facility] PEDRO LUIS Williamson Jelm [id number] [facility] [id number], [place] Number: Repository [address]Kcq: 330 [id number] [phone] (HP) Date:5992-51-44WQ [address] [address]ZSILWUDTX, [place] [address]VM: CHECK WEBSITE 02/28/2018 Secondary NOT GIVENUNK Jelm Insurance:SELF PAY [facility] Number: Effective Repository Date:2018-02-24 02/21/2018 TOSHIA H Primary Insurance:[facility] PEDRO LUIS Williamson Kulwinder [id number] [facility] KENNEDYDOB: [facility] 0421-00-70KFRBlairsburg, [place] Number: Repository [address]Kog: 330 [id number] [phone] (HP) Date:3016-23-97JP [address] [address]HNSUNZZQK, [place] [address]BN: CHECK WEBSITE 02/21/2018 Secondary NOT GIVENUNK Kulwinder Insurance:SELF PAY [facility] Number: Effective Repository Date:2018-02-20 02/10/2018 TOSHIA H Primary Insurance:[facility] PEDRO LUIS Williamson Jelm [id number] [facility] KENNEDYDOB: [facility] 2008-39-80PVTBlairsburg, [place] Number: Repository [address]Bxu: 330 [id number] [phone] (HP) Date:1822-88-36XQ [address] [address]ATAPOKVQG, [place] [address]CZ: CHECK WEBSITE 02/10/2018 Secondary NOT GIVENUNK Jelm Insurance:SELF PAY [facility] Number: Effective Repository Date:2018-01-25 02/07/2018 TOSHIA H Primary Insurance:[facility] PEDRO LUIS Miramontes [id number] [facility]: [facility] [id number], [place] Number: Repository [address]Mwo: 330 [id number] [phone] (HP) Date:7402-52-29HH [address] [address]RFAKWDCVX, [place] [address]RW: CHECK WEBSITE 02/07/2018 Secondary NOT GIVENUNK Kulwinder Insurance:SELF PAY [facility] Number: Effective Repository Date:2018-02-07 02/07/2018 TOSHIA H Primary Insurance:[facility] PEDRO LUIS Williamson Jelm [id number] [facility] KENNEDYDOB: [facility] [id number], [place] Number: Repository [address]Qud: 330 [id number] [phone] (HP) Date:8793-56-68EB [address] [address]QABYOYAZH, [place] [address]OL: CHECK WEBSITE 02/07/2018 Secondary NOT GIVENUNK Jelm Insurance:SELF PAY [facility] Number: Effective Repository Date:2018-02-03 02/06/2018 TOSHIA H Primary Insurance:[facility] PEDRO LUIS Williamson Kulwinder [id number] [facility] KENNEDYDOB: [facility] [id number], [place] Number: Repository [address]Klv: 330 [id number] [phone] (HP) Date:3958-15-82UX [address] [address]AMTNPUPHG, [place] [address]KK: CHECK WEBSITE 02/06/2018 Secondary NOT GIVENUNK Kulwinder Insurance:SELF PAY [facility] Number: Effective Repository Date:2018-01-18 01/31/2018 TOSHIA H Primary Insurance:[facility] PEDRO LUIS Williamson Jelm [id number] [facility]: [facility] [id number], [place] Number: Repository [address]Amf: 330 [id number] [phone] () Date:4823-86-74GF [address] [address]FKISAURDG, [place] [address]WY: CHECK WEBSITE 01/31/2018 Secondary NOT GIVENUNK Kulwinder Insurance:SELF PAY [facility] Number: Effective Repository Date:2018-01-30 01/24/2018 TOSHIA H Primary Insurance:[facility] PEDRO LUIS Miramontes [id number] [facility]: [facility] 5551-74-53DBBBlairsburg, [place] Number: Repository [address]Bpd: 330 [id number] [phone] (HP) Date:4376-18-84GL [address] [address]CLDAGEJLW, [place] [address]QO: CHECK WEBSITE 01/24/2018 Secondary NOT GIVENUNK Kulwinder Insurance:SELF PAY [facility] Number: Effective Repository Date:2018-01-24 01/24/2018 TOSHIA H Primary Insurance:[facility] PEDRO LUIS Williamson Jelm [id number] [facility] KENNEDYDOB: [facility] [id number], [place] Number: Repository [address]Gxz: 330 [id number] [phone] (HP) Date:4305-70-80HF [address] [address]LVZOSLTVM, [place] [address]EI: CHECK WEBSITE 01/24/2018 Secondary NOT GIVENUNK Kulwinder Insurance:SELF PAY [facility] Number: Effective Repository Date:2018-01-18 01/20/2018 TOSHIA H Primary Insurance:[facility] DAYANDATH C Jelm [id number] [facility]: [facility] 9805-50-72ONRBlairs[place] Number: Repository 25[address]Ubg: 330 [id number] [phone] (HP) Date:5552-51-42YH [address] [address]WSQTNIVHY, [place] [address]IS: CHECK WEBSITE 01/20/2018 Secondary NOT GIVENUNK Jelm Insurance:SELF PAY [facility] Number: Effective Repository Date:2018-01-11 01/17/2018 TOSHIA H Primary Insurance:[facility] DAYANDATH C Kulwinder [id number] [facility]: [facility] 7896-79-39PJUBlairsburg, [place] Number: Repository [address]Hhq: 330 [id number] [phone] (HP) Date:3153-53-56WL [address] [address]EEYLGECAF, [place] [address]BS: CHECK WEBSITE 01/17/2018 Secondary NOT GIVENUNK Kulwinder Insurance:SELF PAY [facility] Number: Effective Repository Date:2018-01-11 01/06/2018 TOSHIA H Primary Insurance:[facility] DAYANDATH C Jelm [id number] [facility]: [facility] 9748-70-78NENBlairs[place], [place] Number: Repository [address]Rdr: 330 [id number] [phone] (HP) Date:1738-73-41CJ [address] [address], [place] [address]WT: CHECK WEBSITE 01/06/2018 Secondary NOT GIVENUNK Jelm Insurance:SELF PAY [facility] Number: Effective Repository Date:2018-01-06 01/03/2018 TOSHIA H Primary Insurance:[facility] PEDRO LUIS Miramontes [id number] [facility]: [facility] 2856-92-14SKNBlairsburg, [place] Number: Repository [address]Mgg: 330 [id number] [phone] (HP) Date:2649-53-52VP [address] [address]CUOWVBQGK, [place] [address]OA: CHECK WEBSITE 01/03/2018 Secondary NOT GIVENUNK Jelm Insurance:SELF PAY [facility] Number: Effective Repository Date:2018-01-02 01/03/2018 TOSHIA H Primary Insurance:[facility] PEDRO LUIS Miramontes [id number] [facility]: [facility] 7677-40-24KCBBlairsburg, [place] Number: Repository 28[address]Tkj: 330 [id number] [phone] (HP) Date:8169-67-46LI [address] [address]PLLGQNTFW, [place] [address]FD: CHECK WEBSITE 01/03/2018 Secondary NOT GIVENUNK Kulwinder Insurance:SELF PAY [facility] Number: Effective Repository Date:2017-12-20 12/20/2017 TOSHIA H Primary Insurance:[facility] PEDRO LUIS Miramontes [id number] S [facility]: [facility] 0050-21-71SVYComptche, [place] Number: Repository 34[address]Gck: 330 [id number] [phone] (HP) Date:9240-69-20ME [address] [address]HYHTDZRIF, [place] [address]UG: CHECK WEBSITE 12/20/2017 Secondary NOT GIVENUNK Kulwinder Insurance:SELF PAY [facility] Number: Effective Repository Date:2017-12-16 12/13/2017 TOSHIA H Primary Insurance:[facility] PEDRO LUIS Miramontes [id number] S [facility]: [facility] 5305-99-00UJOComptche, [place] Number: Repository [address]Fur: 330 [id number] [phone] (HP) Date:1884-43-95ZH [address] [address]YTHUHMYOI, [place] [address]DL: CHECK WEBSITE 12/13/2017 Secondary NOT GIVENUNK Kulwinder Insurance:SELF PAY [facility] Number: Effective Repository Date:2017-12-07 12/09/2017 TOSHIA H Primary NOT GIVENUNK Kulwinder [id number] S Insurance:SELF [place]Y [place] Number: Effective Repository [address]Yza: (330) Date:2017-12-09 [phone] (HP) 12/09/2017 TOSHIA H Primary Insurance:[facility] PEDRO LUIS Miramontes [id number] S [facility]: [facility] 1483-02-51PWKComptche, [place] Number: Repository 21417Rqg: 330 [id number] [phone] (HP) Date:2584-28-86MC [address] [address]SOJKNXFBR, [place] [address]MV: CHECK WEBSITE 12/09/2017 Secondary NOT GIVENUNK Jelm Insurance:SELF PAY [facility] Number: Effective Repository Date:2017-11-17 12/08/2017 TOSHIA H Primary Insurance:[facility] PEDRO LUIS Williamson Jelm [id number] S [facility]: [facility] [id number], [place] Number: Repository [address]Osp: 330 [id number] [phone] (HP) Date:9060-67-23JC [address] [address]HHWRNGUNH, [place] [address]DB: CHECK WEBSITE 12/08/2017 Secondary NOT GIVENUNK Jelm Insurance:SELF PAY [facility] Number: Effective Repository Date:2017-12-05 12/06/2017 TOSHIA H Primary Insurance:[facility] PEDRO LUIS Miramontes [id number] [facility] LUFKIN: [facility] [id number], [place] Number: Repository 30[address]Arn: 330 [id number] [phone] (HP) Date:1034-73-75IH [address] [address]PJIABAKHN, [place] [address]XA: CHECK WEBSITE 12/06/2017 Secondary NOT GIVENUNK Jelm Insurance:SELF PAY [facility] Number: Effective Repository Date:2017-12-05 11/29/2017 TOSHIA H Primary Insurance:[facility] PEDRO LUIS Williamson Jelm [id number] S [facility]DOB: [facility] 7413-08-18GABComptche, [place] Number: Repository [address]Oau: 330 [id number] [phone] () Date:5254-18-14WW [address] [address]HHUYPFMGZ, [place] [address]VN: CHECK WEBSITE 11/29/2017 Secondary NOT GIVENUNK Jelm Insurance:SELF PAY [facility] Number: Effective Repository Date:2017-11-08 11/22/2017 TOSHIA H Primary Insurance:[facility] LANEYTH C Jelm [id number] S [facility]: [facility] [id number], [place] Number: Repository 08809Gfo: 330 [id number] [phone] () Date:5272-69-90GO [address] [address]RJQSQSVNB, [place] [address]YF: CHECK WEBSITE 11/22/2017 Secondary NOT GIVENUNK Kulwinder Insurance:SELF PAY [facility] Number: Effective Repository Date:2017-11-08 11/16/2017 TOSHIA H Primary Insurance:[facility] PEDRO LUIS Clay Jelm [id number] S [facility]: [facility] 8180-37-45PFTComptche, [place] Number: Repository 07190Rsr: 330 [id number] [phone] () Date:5116-30-62KS [address] [address]XNTXNRCFR, [place] [address]MQ: CHECK WEBSITE 11/16/2017 Secondary NOT GIVENUNK Kulwinder Insurance:SELF PAY [facility] Number: Effective Repository Date:2017-11-16 11/14/2017 PEDRO LUIS Williamson Primary Insurance:[facility] LANEY Clay Kulwinder [id number] S [facility]OB: [facility] [id number]'s Hospital and [facility], Number: Repository [place] [address]Rqc: [id number] Date:9469-63-56VR [address] () [address]XYTBOOZVV, [place] [address]QZ: CHECK WEBSITE 11/14/2017 Secondary NOT GIVENUNK Jelm Insurance:SELF PAY [facility] Number: Effective Repository Date:2017-10-31 11/09/2017 TOSHIA H Primary Insurance:[facility] PEDRO LUIS Williamson Jelm [id number] S [facility]: [facility] 2811-76-86PWAComptche, [place] Number: Repository 98[address]Obk: 330 [id number] [phone] () Date:7590-39-43TS [address] [address]BTWUATXYE, [place] [address]NE: CHECK WEBSITE 11/09/2017 Secondary NOT GIVENUNK Kulwinder Insurance:SELF PAY [facility] Number: Effective Repository Date:2017-11-09 11/08/2017 TOSHIA H Primary Insurance:[facility] LANEY Clay Jelm [id number] S [facility]: [facility] 8254-58-73OFZComptche, [place] Number: Repository 84125Gct: 330 [id number] [phone] () Date:5743-72-44OZ [address] [address]FPFDRWHEY, [place] [address]LV: CHECK WEBSITE 11/08/2017 Secondary NOT GIVENUNK Jelm Insurance:SELF PAY [facility] Number: Effective Repository Date:2017-11-07 11/03/2017 TOSHIA H Primary Insurance:[facility] LANEY Clay ArenasKulwinderJohn Ville [id number] S [facility]: [facility] 1279-32-51FMVComptche, [place] Number: Repository [address]Pzt: 330 [id number] [phone] () Date:0615-54-70XT [address] [address]VZCNBIHQH, [place] [address]EY: CHECK WEBSITE 11/03/2017 Secondary NOT GIVENUNK Kulwinder Insurance:SELF PAY [facility] Number: Effective Repository Date:2017-11-03 11/01/2017 TOSHIA H Primary Insurance:[facility] PEDRO LUIS Williamson Jelm [id number] S [facility]: [facility] 1009-71-08IWEComptche, [place] Number: Repository 35754Xpq: 330 [id number] [phone] (HP) Date:4701-59-17UC [address] [address]NAPUXRPTL, [place] [address]XG: CHECK WEBSITE 11/01/2017 Secondary NOT GIVENUNK Jelm Insurance:SELF PAY [facility] Number: Effective Repository Date:2017-10-28 10/16/2017 TOSHIA H Primary Insurance:[facility] PEDRO LUIS Williamson Jelm [id number] S [facility]: [facility] 9377-61-62SLMComptche, [place] Number: Repository [address]59[address]Urr: 330 [id number] [phone] (HP) Date:0615-35-39UQ [address] [address]CZJDBKWVC, [place] [address]LD: CHECK WEBSITE 10/16/2017 Secondary NOT GIVENUNK Jelm Insurance:SELF PAY [facility] Number: Effective Repository Date:2017-10-14 10/10/2017 TOSHIA H Primary Insurance:[facility] PEDRO LUIS Miramontes [id number] S [facility]: [facility] 9286-75-94KKDComptche, [place] Number: Repository [address]78[address]Lhu: 330 [id number] [phone] (HP) Date:3332-74-39PH [address] [address]NAUYTDHJI, [place] [address]GT: CHECK WEBSITE 10/10/2017 Secondary NOT GIVENUNK Kulwinder Insurance:SELF PAY [facility] Number: Effective Repository Date:2017-09-13 10/10/2017 PEDRO LUIS C Primary Insurance:[facility] PEDRO LUIS Miramontes [id number] S [facility]: [facility] [id number]'s Hospital and Health Center, Number: Repository mo [address]Qxu: [id number] Date:8516-77-89WW [address] () [address]247PTOIHZGBN, [place] [address]ED: CHECK WEBSITE 10/10/2017 Secondary NOT GIVENUNK Jelm Insurance:SELF PAY [facility] Number: Effective Repository Date:2017-10-10 10/07/2017 TOSHIA H Primary Insurance:[facility] PEDRO LUIS Miramontes [id number] S [facility]: [facility] 0475-42-65FWMComptche, [place] Number: Repository [address]Ymq: 330 [id number] [phone] () Date:3347-69-34RQ [address] [address]FPIFJJELO, [place] [address]LC: CHECK WEBSITE 10/07/2017 Secondary NOT GIVENUNK Jelm Insurance:SELF PAY [facility] Number: Effective Repository Date:2017-10-04 10/05/2017 TOSHIA H Primary Insurance:[facility] PEDRO LUIS Miramontes [id number] S [facility]: [facility] 1767-37-64BKPComptche, [place] Number: Repository 98[address]Ull: 330 [id number] [phone] () Date:4368-96-06GZ [address] [address]XADMLSVMS, [place] [address]PJ: CHECK WEBSITE 10/05/2017 Secondary NOT GIVENUNK Kulwinder Insurance:SELF PAY [facility] Number: Effective Repository Date:2017-09-13 10/04/2017 TOSHIA H Primary Insurance:[facility] PEDRO LUIS Miramontes [id number] S [facility]: [facility] 2208-92-45YFOComptche, [place] Number: Repository [address]Wci: 330 [id number] [phone] () Date:3271-82-32RG [address]KKPYFTMHH, [place] [address]RW: CHECK WEBSITE 10/04/2017 Secondary NOT GIVENUNK Jelm Insurance:SELF PAY [facility] Number: Effective Repository Date:2017-09-15 09/20/2017 Toshia H Primary Insurance:[facility] PEDRO LUIS Miramontes [id number] [address] [facility]: [facility] 0882-33-14SJPMilton, [place] Number: Repository [address]Goi: 330 [id number] [phone] (HP) Date:6504-57-05CI [address] [address]IROSVTUAR, [place] [address]DO: CHECK WEBSITE 09/20/2017 Secondary NOT GIVENUNK Jelm Insurance:SELF PAY [facility] Number: Effective Repository Date:2017-09-09 09/13/2017 Toshia H Primary Insurance:[facility]ANPAL[facility] Jelm [id number] S [facility]: [facility] 6195-70-28QUUMilton, [place] Number: Repository [address]Sxw: 330 [id number] [phone] (HP) Date:6001-71-16HA [address] [address]UVLUQXPOT, [place] [address]PJ: CHECK WEBSITE 09/13/2017 Secondary NOT GIVENUNK Jelm Insurance:SELF PAY [facility] Number: Effective Repository Date:2017-08-16 09/07/2017 Toshia H Primary Insurance:[facility] Jelm [id number] S [facility]: [facility] 9896-58-05NYUMilton, [place] Number: Repository 165[address]Lfi: 330 [id number] [phone] (HP) Date:7862-72-54BZ [address] [address]ITSRRWMYC, [place] [address]NJ: CHECK WEBSITE 09/07/2017 Secondary NOT GIVENUNK Jelm Insurance:SELF PAY [facility] Number: Effective Repository Date:2017-08-30 09/07/2017 Toshia H Primary Insurance:[facility] [id number] S [facility]: [facility] 0223-63-97CUBMilton, [place] Number: Repository [address]Ngy: 330 [id number] [phone] (HP) Date:6669-30-89NQ [address] [address]LGNEQOVEX, [place] [address]QT: CHECK WEBSITE 09/07/2017 Secondary NOT GIVENUNK Kulwinder Insurance:SELF PAY [facility] Number: Effective Repository Date:2017-09-07 08/29/2017 PEDRO LUIS C Primary Insurance:[facility] PEDRO LUIS Miramontes [id number] S [facility]DOB: [facility] 9411-70-78HTHChildren's Hospital and Health Center, Number: Repository [place] [address]Hoz: [id number] Date:4929-64-06QZ [address] () [address]GSGRKLTWX, [place] [address]MZ: CHECK WEBSITE 08/29/2017 Secondary NOT GIVENUNK Kulwinder Insurance:SELF PAY [facility] Number: Effective Repository Date:2017-08-29 08/29/2017 Toshia H Primary Insurance:[facility] PEDRO LUIS Miramontes [id number] S [facility]: [facility] 1958-15-85XITMilton, [place] Number: Repository [address]Ylu: 330 [id number] [phone] () Date:6943-80-65ZI [address] [address]FXNKCXYBA, [place] [address]VC: CHECK WEBSITE 08/29/2017 Secondary NOT GIVENUNK Kulwinder Insurance:SELF PAY [facility] Number: Effective Repository Date:2017-08-25 08/23/2017 Toshia H Primary Insurance:[facility] PEDRO LUIS Miramontes [id number] S [facility]: [facility] 8228-79-38DTEElsberry, [place] Number: Repository [address]754Idk: 330 [id number] [phone] () Date:9571-26-46KA [address] [address]MJDLHFLCS, [place] [address]VK: CHECK WEBSITE 08/23/2017 Secondary NOT GIVENUNK Kulwinder Insurance:SELF PAY [facility] Number: Effective Repository Date:2017-08-16 08/16/2017 Toshia H Primary Insurance:[facility] PEDRO LUIS Miramontes [id number] S [facility]: [facility] 1692-66-90CQFElsberry, [place] Number: Repository [address]28[address]Eiy: 330 [id number] [phone] (HP) Date:9169-38-03JJ [address] [address]LZOETATKM, [place] [address]UM: CHECK WEBSITE 08/16/2017 Secondary NOT GIVENUNK Jelm Insurance:SELF PAY [facility] Number: Effective Repository Date:2017-08-02 08/16/2017 Toshia H Primary Insurance:[facility] PEDRO LUIS Miramontes [id number] [address] [facility]: [facility] 9840-27-32EOHElsberry, [place] Number: Repository [address]38Nof: 330 [id number] [phone] (HP) Date:0415-69-73QN [address] [address]32WNUQLULLB, [place] [address]YB: CHECK WEBSITE 08/16/2017 Secondary NOT GIVENUNK Kulwinder Insurance:SELF PAY [facility] Number: Effective Repository Date:2017-08-02 08/02/2017 Toshia H Primary Insurance:[facility] PEDRO LUIS Miramontes [id number] S [facility]: [facility] 2853-45-31MJSElsberry, [place] Number: Repository [address]Seq: 330 [id number] [phone] () Date:3171-28-33IR [address] [address]ACEKVKHGE, [place] [address]ZS: CHECK WEBSITE 08/02/2017 Secondary NOT GIVENUNK Jelm Insurance:SELF PAY [facility] Number: Effective Repository Date:2017-07-18 08/02/2017 Toshia H Primary Insurance:[facility] PEDRO LUIS Miramontes [id number] S [facility] DAMDOB: [facility] 8727-25-73TGZElsberry, [place] Number: Repository 569[address]Nqg: 330 [id number] [phone]) Date:9917-32-32GT [address] [address]EQJUSBEOD, [place] [address]TM: CHECK WEBSITE 08/02/2017 Secondary NOT GIVENUNK Kulwinder Insurance:SELF PAY [facility] Number: Effective Repository Date:2017-07-28 07/12/2017 Toshia H Primary Insurance:[facility] MERECODEY [id number] [address] [facility]: [facility] 3124-58-07PNBYampa Valley Medical Center [place] Number: Repository [address]013Lvr: 330 [id number] [phone] (HP) Date:0508-56-36PT [address] [address]XAPYTORPP, [place] [address]XG: CHECK WEBSITE 07/12/2017 Secondary NOT GIVENUNK Jelm Insurance:SELF PAY [facility] Number: Effective Repository Date:2017-06-16 06/21/2017 Toshia H Primary Insurance:[facility] PEDRO LUIS [id number] [address] [facility]: [facility] 1871-71-35ZTMYampa Valley Medical Center [place] Number: Repository 216[address]Fqb: 330 [id number] [phone]) Date:4563-36-36KR [address]LIUOAVRDD, [place] [address]HE: CHECK WEBSITE 06/21/2017 Secondary NOT GIVENUNK Kulwinder Insurance:SELF PAY [facility] Number: Effective Repository Date:2017-06-21 06/20/2017 Toshia H Primary Insurance:[facility] PEDRO LUIS [id number] [address] [facility]: [facility] 0084-47-42YXRElsberry, [place] Number: Repository [address]Nox: 330 [id number] [phone]) Date:6611-43-39MZ [address] [address]DQJZOOSTA, [place] [address]WM: CHECK WEBSITE 06/20/2017 Secondary NOT GIVENUNK Kulwinder Insurance:SELF PAY [facility] Number: Effective Repository Date:2017-05-10 06/09/2017 Toshia H Primary Insurance:[facility] PEDRO LUIS [id number] [address] [facility]: [facility] 2205-42-47HXNElsberry, [place] Number: Repository 48651Mcs: 330 [id number] [phone] (HP) Date:1886OZ [address] [address]KEKLPXWAC, [place] [address]VH: CHECK WEBSITE 06/09/2017 Secondary NOT GIVENUNK Kulwinder Insurance:SELF PAY [facility] Number: Effective Repository Date:2017-05-17 06/01/2017 Toshia H Primary Insurance:[facility] PEDRO LUIS Williamson Kulwinder [id number] S [facility]: [facility] 0127-66-48MLZElsberry, [place] Number: Repository 04706Sdr: 330 [id number] [phone] () Date:9824-07-00TK [address] [address]50HFLULQATV, [place] [address]AR: CHECK WEBSITE 06/01/2017 Secondary NOT GIVENUNK Kulwinder Insurance:SELF PAY [facility] Number: Effective Repository Date:2017-05-20 05/10/2017 Toshia H Primary Insurance:[facility] PEDRO LUIS Williamson Kulwinder [id number] [address] [facility]: [facility] 3093-03-62STPYampa Valley Medical Center [place] Number: Repository [address]Kpp: 330 [id number] [phone] () Date:2006-79-38CW [address] [address]KFYHWQXET, [place] [address]OG: CHECK WEBSITE 05/10/2017 Secondary NOT GIVENUNK Kulwinder Insurance:SELF PAY [facility] Number: Effective Repository Date:2017-04-19 04/24/2017 Toshia H Primary Insurance:[facility] PEDRO LUIS Miramontes [id number] [address] [facility]DOB: [facility] 0102-96-99ROWYampa Valley Medical Center [place] Number: Repository [address]43Knt: 330 [id number] [phone] () Date:5719-48-33RC [address] [address]HGHNXIKGJ, [place] [address]QB: CHECK WEBSITE 04/24/2017 Secondary NOT GIVENUNK Jelm Insurance:SELF PAY [facility] Number: Effective Repository Date:2017-04-24 04/24/2017 Toshia H Primary Insurance:[facility] LANEY Clay Miramontes [id number] S [facility]: [facility] 9973-79-44ABKYampa Valley Medical Center [place] Number: Repository 17267Euu: 330 [id number] [phone] (HP) Date:1440-22-13KQ [address] [address]GCQUJUOQB, [place] [address]EX: CHECK WEBSITE 04/24/2017 Secondary NOT GIVENUNK Jelm Insurance:SELF PAY [facility] Number: Effective Repository Date:2017-04-24 04/24/2017 Toshia H Primary Insurance:[facility] LANEYTH Clay Kulwinder [id number] [address] [facility]: [facility] 9372-12-26OCIYampa Valley Medical Center [place] Number: Repository [address]Ovm: 330 [id number] [phone] (HP) Date:3620-10-13IP [address] [address]KOVYTFAJT, [place] [address]IM: CHECK WEBSITE 04/24/2017 Secondary NOT GIVENUNK Jelm Insurance:SELF PAY [facility] Number: Effective Repository Date:2017-04-24 04/24/2017 Toshia H Primary Insurance:[facility] LANEYTH C Jelm [id number] S [facility]: [facility] 6783-71-03TOHElsberry, [place] Number: Repository [address]Cbm: 330 [id number] [phone] (HP) Date:5650-97-94PQ [address] [address]NDLGKIZNZ, [place] [address]RG: CHECK WEBSITE 04/24/2017 Secondary NOT GIVENUNK Kulwinder Insurance:SELF PAY [facility] Number: Effective Repository Date:2017-04-24 04/22/2017 Toshia H Primary Insurance:[facility] PEDRO LUIS Williamson Jelm [id number] S [facility]: [facility] 8184-78-99KIZElsberry, [place] Number: Repository [address]Hou: 330 [id number] [phone] (HP) Date:3178-20-03XL [address]11YRZTXYZCX, [place] [address]CK: CHECK WEBSITE 04/22/2017 Secondary NOT GIVENUNK Jelm Insurance:SELF PAY [facility] Number: Effective Repository Date:2017-04-20 04/21/2017 Toshia H Primary Insurance:[facility] PEDRO LUIS [id number] [address] [facility]: [facility] 5862-79-27CDPYampa Valley Medical Center [place] Number: Repository 184[address]Gyg: 330 [id number] [phone] (HP) Date:7297-81-50DI [address] [address]BRESNEHGL, [place] [address]XO: CHECK WEBSITE 04/21/2017 Secondary NOT GIVENUNK Jelm Insurance:SELF PAY [facility] Number: Effective Repository Date:2017-04-20 04/15/2017 Toshia H Primary Insurance:[facility] PEDR OLUIS Miramontes [id number] [address] [facility]: [facility] 0475-87-16Z[facility] [place] Number: Repository [id number]: 330 [id number] [phone] (HP) Date:[id number] [address], [place] [address]SK: CHECK WEBSITE 04/15/2017 Secondary NOT GIVENUNK Jelm Insurance:SELF PAY [facility] Number: Effective Repository Date:2017-03-25 04/13/2017 Toshia H Primary Insurance:[facility] PEDRO LUIS Miramontes [id number] [facility] [id number] Number: Repository [id number]: [phone] [id number] [phone] (HP) Date:1989-28-96[address] [address], [place] [address]WV: CHECK WEBSITE 04/13/2017 Secondary NOT GIVENUNK Kulwinder Insurance:SELF PAY [facility] Number: Effective Repository Date:2017-03-25 04/09/2017 Toshia H Primary Insurance:[facility] PEDRO LUIS Miramontes [id number] [id number] [place] Number: Repository [id number]: 330 [id number] [phone] (HP) Date:6072-09-75SH [address] [address] [id number]: CHECK WEBSITE 04/09/2017 Secondary NOT GIVENUNK Jelm Insurance:[facility]LF PAY [facility] Effective Repository Date:2017-04-09
== END ==
PROVIDERS: Family Provider Family Medicine; PCP Family Medicine; Referring Provider Internal Medicine Hematology & Oncology; Visit Provider Internal Medicine Hematology & Oncology
DX: Z51.11 Encounter for antineoplastic chemotherapy (principal); C50.411 Malignant neoplasm of upper-outer quadrant of right female breast; C79.51 Secondary malignant neoplasm of bone
CPT/HCPCS: 96361; 96367; 96376; 96413; J3489; J7030; J7040; J7050; A4216; J2405; J3490; J9201

== ENCOUNTER → 2018-03-22 09:51 | Outpatient (CLI) | payer OTHER, SELFPAY ==
[2018-03-14 09:24] VITALS: BMI 30.2
[2018-03-22] MEDS: 0.9% Normal Saline 1,000 ML 500 ML IV (10:00)
[2018-03-22 10:06] VITALS: BP 149/73; PULSE 91; RESP 16; TEMP 36.6; O2SAT 100; BMI 30.5
[2018-03-22] MEDS: Metoclopramide 10 MG/2 ML Vial IV (10:24)
== END ==
PROVIDERS: Family Provider Family Medicine; PCP Family Medicine; Referring Provider Internal Medicine Hematology & Oncology; Visit Provider Internal Medicine Hematology & Oncology
DX: C50.411 Malignant neoplasm of upper-outer quadrant of right female breast (principal)
CPT/HCPCS: 96367; 96375; 96413; J7030; J7040; A4216; J2405; J3490; J9201

== ENCOUNTER → 2018-03-27 07:49 | Outpatient (CLI) | payer OTHER, SELFPAY ==
[2018-03-22 10:06] VITALS: BMI 30.5
--- NOTE | 2018-03-27 07:51 | CT_ITS ---
STUDY: CT ABDOMEN AND PELVIS WITH CONTRAST REASON FOR EXAM: Female, 47 years old. Breast cancer follow-up. RADIATION DOSAGE (If Supplied By Facility): CTDIvol = ( 18.88 ) mGy, DLP = ( 2011.29 ) mGycm TECHNIQUE: Transaxial images were obtained from the dome of the diaphragm to the symphysis pubis with oral contrast. 100CC ml of Isovue 250 contrast was administered. Sagittal and coronal images were reconstructed. Individualized dose optimization techniques were used for this CT. COMPARISON: January 17, 2018 FINDINGS: The visualized lung bases are unremarkable. The visualized portions of the heart are within normal limits. There is stable skin thickening of the visualized right breast. Normal liver. Normal gallbladder and extrahepatic biliary system. Normal spleen. Normal pancreas. Normal bilateral adrenal glands. Normal right kidney. Normal left kidney. Normal visualized stomach. Normal small intestine. Normal colon. The appendix is visualized and appears normal. There is diffuse atherosclerotic calcification of the abdominal aorta, without a demonstrated aneurysm. Normal inferior vena cava. Normal retroperitoneum. Normal urinary bladder. Normal abdominal wall. There are diffuse degenerative changes of the visualized lumbar spine. CT/Abdomen/Pelvis WITH Contrast IMPRESSION: No evidence of metastases within the abdomen and pelvis. Atherosclerosis. Electronically Signed: Jina Arciniega MD at 17:03 EST Tel , Service support ,
--- NOTE | 2018-03-27 07:52 | CT_ITS ---
STUDY: CT CHEST WITH CONTRAST REASON FOR EXAM: Female, 47 years old. Breast cancer follow-up. Right breast lumpectomy. RADIATION DOSAGE (If Supplied By Facility): CTDIvol = ( 18.88 ) mGy, DLP = ( 2011.29 ) mGycm TECHNIQUE: Transaxial imaging was performed following intravenous administration of 100CC ml of Isovue 300 contrast material. Multiplanar coronal and sagittal images were reformatted. Individualized dose optimization techniques were used for this CT. COMPARISON: January 17 and 2017 FINDINGS: There is stable minimal atelectasis and/or scarring within the left lower lobe. Normal heart and pericardium. Normal mediastinum. Normal hilar regions. Normal enhanced pulmonary arteries. Normal aorta arch and descending thoracic aorta. There are multi-level degenerative changes of the thoracic spine. There is a Mediport in place within the left anterior chest wall. There is stable postsurgical changes within the right axilla and right breast. There is a right supraclavicular lymph node that has decreased in size since the prior examination and no longer enhances. Please note there is a separate dedicated CT report of the abdomen and pelvis. CT/Chest WITH Contrast IMPRESSION: Interval decrease in size of right supraclavicular lymph node that no longer enhances. No evidence of metastases. Electronically Signed: Jina Arciniega MD at 19:24 EST Tel , Service support ,
== END ==
PROVIDERS: Family Provider Family Medicine; PCP Family Medicine; Referring Provider Internal Medicine Hematology & Oncology; Visit Provider Internal Medicine Hematology & Oncology
DX: C50.411 Malignant neoplasm of upper-outer quadrant of right female breast (principal); Z17.1 Estrogen receptor negative status [ER-]; C78.02 Secondary malignant neoplasm of left lung; C79.51 Secondary malignant neoplasm of bone
CPT/HCPCS: 71260; 74177; Q9967; A4216

== ENCOUNTER → 2018-03-30 10:25 | Outpatient (CLI) | payer OTHER, SELFPAY ==
[2018-03-22 10:06] VITALS: BMI 30.5
--- NOTE | 2018-03-30 10:28 | NM_ITS ---
CLINICAL: 47-year-old female with reported history of carcinoma of the breast. WHOLE BODY 99m Tc MDP RADIONUCLIDE BONE SCINTIGRAPHY COMPARISON: Previous whole body bone scintigraphy study dated 01/20/2018 FINDINGS: Following the intravenous administration of 25.7 mCi of 99m Tc MDP, whole body bone images reveal: 1. Newly identified increased radiopharmaceutical concentration is noted in the eighth thoracic vertebra posteriorly on the right and right proximal tibial metaphysis, persistently defined in the distal sternum, right lower anterolateral chest wall-11th rib, the greater trochanteric aspect of the left proximal femur. 2. Enhanced tracer concentration remains evident in the sternoclavicular and acromioclavicular compartments of both shoulders, bilateral knees, right-left elbows, third lumbar vertebra posteriorly on the left. 3. The remaining skeletal structures are scintigraphically unremarkable with normal-appearing renal images and urinary bladder activity identified. NM/Bone Scan Whole Body IMPRESSION: 1. The increase in radiopharmaceutical concentration identified in the eighth thoracic vertebra and right proximal tibial metaphysis may be further investigated with plain film radiography in the setting of known breast carcinoma. 2. Facilitated uptake redemonstrated in the left proximal femur, distal sternum and right anterolateral 11th rib remains most consistent with apparent previously reported skeletal metastatic disease. 3. Degenerative arthritis appears currently expressed in the bilateral shoulders, right and left knees, both elbow articulations, the third lumbar vertebra 4. Overall compared to the previous whole body bone scintigraphy study dated 01/21/2008, newly identified increased uptake noted in the region of the eighth thoracic vertebra and right proximal tibia may warrant further radiologic investigation. Electronically Signed: Clay Real DO at 23:38 EST Tel , Service support ,
--- OUTSIDE RECORDS SUMMARY | 2018-05-16 05:21 | XMS RPT_ITS ---
:1970 Author Organization [place] Support Name Relationship Address Phone RICCONAZ BUENOCA Unavailable [address] + [place] [address] TOSHIA WILCOX Unavailable [address] + [place] [address] [facility] Unavailable [address] + [place] [address] RICCO FADUMO Unavailable [address] + [place] [address] TOSHIA WILCOX Unavailable [address] + [place] [address] WC Unavailable [address] + [place] [address] RICCO, FADUMO Unavailable [address] + [place] [address] KATHLEEN WILCOXLIE Unavailable [address] + [place] [address] WC Unavailable [address] + [place] [address] RICCO, FADUMO Unavailable [address] + [place] [address] KATHLEEN WILCOXLIE Unavailable [address] + [place] [address] WC Unavailable [address] + [place] [address] RICCO FADUMO Unavailable [address] + [place] [address] KATHLEEN WILCOXLIE Unavailable [address] + [place] [address] WC Unavailable [address] + [place] [address] RICCO, FADUMO Unavailable [address] + [place] [address] KATHLEEN WILCOXLIE Unavailable [address] + [place] [address] [facility] Unavailable [address] + [place] [address] RICCO, FADUMO Unavailable [address] + [place] [address] MARK TOSHIA Unavailable [address] + [place] [address] WC Unavailable [address] + [place] [address] RICCO, FADUMO Unavailable [address] + [place] [address] MARK TOSHIA Unavailable [address] + [place] [address] [facility] Unavailable [address] + [place] [address] RICCO, FADUMO Unavailable [address] + [place] [address] KATHLEEN WILCOXLIE Unavailable [address] + [place] [address] [facility] Unavailable [address] + [place] [address] RICCO, FADUMO Unavailable [address] + [place] [address] KATHLEEN WILCOXLIE Unavailable [address] + [place] [address] [facility] Unavailable [address] + [place] [address] RICCO, FADUMO Unavailable [address] + [place] [address] MARK TOSHIA Unavailable [address] + [place] [address] [facility] Unavailable [address] + [place] [address] RICCO, FADUMO Unavailable [address] + [place] [address] KATHLEEN WILCOXLIE Unavailable [address] + [place] [address] [facility] Unavailable [address] + [place] [address] RICCO, FADUMO Unavailable [address] + [place] [address] KATHLEEN WILCOXLIE Unavailable [address] + [place] [address] WC Unavailable [address] + [place] [address] RICCO, FADUMO Unavailable [address] + [place] [address] TOSHIA WILCOX Unavailable [address] + [place] [address] [facility] Unavailable [address] + [place] [address] RICCO, FADUMO Unavailable [address] + [place] [address] KATHLEEN WILCOXLIE Unavailable [address] + [place] [address] [facility] Unavailable [address] + [place] [address] RICCO, FADUMO Unavailable [address] + [place] [address] TOSHIA WILCOX Unavailable [address] + [place] [address] WC Unavailable [address] + [place] [address] RICCO, FADUMO Unavailable [address] + [place] [address] TOSHIA WILCOX Unavailable [address] + [place] [address] [facility] Unavailable [address] + [place] [address] RICCO, FADUMO Unavailable [address] + [place] [address] MARK, TOSHIA Unavailable [address] + [place] [address] [facility] Unavailable [address] + [place] [address] RICCO, FADUMO Unavailable [address] + [place] [address] MARK TOSHIA Unavailable [address] + [place] [address] [facility] Unavailable [address] + [place] [address] RICCO, FADUMO Unavailable [address] + [place] [address] KATHLEEN WILCOXLIE Unavailable [address] + [place] [address] [facility] Unavailable [address] + [place] [address] RICCO, FADUMO Unavailable [address] + [place] [address] MARK TOSHIA Unavailable [address] + [place] [address] [facility] Unavailable [address] + [place] [address] RICCO, FADUMO Unavailable [address] + [place] [address] KATHLEEN WILCOXLIE Unavailable [address] [place] [address] + [place] [address] [facility] Unavailable [address] + [place] [address] RICCO, FADUMO Unavailable [address] + [place] [address] KATHLEEN WILCOXLIE Unavailable [address] [place] [address] + [place] [address] [facility] Unavailable [address] + [place] [address] RICCO, FADUMO Unavailable [address] + [place] [address] KATHLEEN WILCOXLIE Unavailable [address] [place] [address] + [place] [address] [facility] Unavailable [address] + [place] [address] RICCO FADUMO Unavailable [address] + [place] [address] TOSHIA WILCOX Unavailable [address] [place] [address] + [place] [address] [facility] Unavailable [address] + [place] [address] RICCO FADUMO Unavailable [address] + [place] [address] TOSHIA WILCOX Unavailable [address] [place] [address] + [place] [address] [facility] Unavailable [address] + [place] [address] RICCO FADUMO Unavailable [address] + [place] [address] TOSHIA WILCOX Unavailable [address] [place] [address] + [place] [address] [facility] Unavailable [address] + [place] [address] RICCO FADUMO Unavailable [address] + [place] [address] TOSHIA WILCOX Unavailable [address] [place] [address] + [place] [address] [facility] Unavailable [address] + [place] [address] RICCO FADUMO Unavailable [address] + [place] [address] TOSHIA WILCOX Unavailable [address] [place] [address] + [place] [address] [facility] Unavailable [address] + [place] [address] RICCO FADUMO Unavailable [address] + [place] [address] TOSHIA WILCOX Unavailable [address] [place] [address] + [place] [address] [facility] Unavailable [address] + [place] [address] RICCO FADUMO Unavailable [address] + [place] [address] TOSHIA WILCOX Unavailable [address] [place] [address] + [place] [address] [facility] Unavailable [address] + [place] [address] RICCO, FADUMO Unavailable [address] + [place] [address] TOSHIA WILCOX Unavailable [address] [place] [address] + [place] [address] WC Unavailable [address] + [place] [address] RICCO FADUMO Unavailable [address] + [place] [address] TOSHIA WILCOX Unavailable [address] [place] [address] + [place] [address] WC Unavailable [address] + [place] [address] RICCO FADUMO Unavailable [address] + [place] [address] TOSHIA WILCOX Unavailable [address] [place] [address] + [place] [address] WC Unavailable [address] + [place] [address] RICCO FADUMO Unavailable [address] + [place] [address] TOSHIA WILCOX Unavailable [address] [place] [address] + [place] [address] [facility] Unavailable [address] + [place] [address] RICCO FADUMO Unavailable [address] + [place] [address] TOSHIA WILCOX Unavailable [address] [place] [address] + [place] [address] [facility] Unavailable [address] + [place] [address] RICCO, FADUMO Unavailable [address] + [place] [address] KATHLEEN WILCOXLIE Unavailable [address] [place] [address] + [place] [address] [facility] Unavailable [address] + [place] [address] RICCO, FADUMO Unavailable [address] + [place] [address] KATHLEEN WILCOXLIE Unavailable [address] [place] [address] + [place] [address] [facility] Unavailable [address] + [place] [address] RICCO, FADUMO Unavailable [address] + [place] [address] MARK TOSHIA Unavailable [address] [place] [address] + [place] [address] [facility] Unavailable [address] + [place] [address] RICCO, FADUMO Unavailable [address] + [place] [address] SEAMUS WILCOXE Unavailable [address] [place] [address] + [place] [address] [facility] Unavailable [address] + [place] [address] RICCO, FADUMO Unavailable [address] + [place] [address] KATHLEEN WILCOXLIE Unavailable [address] [place] [address] + [place] [address] [facility] Unavailable [address] + [place] [address] RICCO, FADUMO Unavailable [address] + [place] [address] KATHLEEN WILCOXLIE Unavailable [address] [place] [address] + [place] [address] [facility] Unavailable [address] + [place] [address] RICCO, FADUMO Unavailable [address] + [place] [address] TOSHIA WILCOX Unavailable [address] [place] [address] + [place] [address] [facility] Unavailable [address] + [place] [address] RICCO, FADUMO Unavailable [address] + [place] [address] TOSHIA WILCOX Unavailable [address] [place] [address] + [place] [address] [facility] Unavailable [address] + [place] [address] RICCO, FADUMO Unavailable [address] + [place] [address] SEAMUS WILCOXE Unavailable [address] [place] [address] + [place] [address] [facility] Unavailable [address] + [place] [address] RICCO, FADUMO Unavailable [address] + [place] [address] TOSHIA WILCOX Unavailable [address] [place] [address] + [place] [address] WC Unavailable [address] + [place] [address] RICCO, FADUMO Unavailable [address] + [place] [address] TOSHIA WILCOX Unavailable [address] [place] [address] + [place] [address] [facility] Unavailable [address] + [place] [address] RICCO, FADUMO Unavailable [address] + [place] [address] TOSHIA WILCOX Unavailable [address] [place] [address] + [place] [address] [facility] Unavailable [address] + [place] [address] RICCO, FADUMO Unavailable [address] + [place] [address] TOSHIA WILCOX Unavailable [address] [place] [address] + [place] [address] [facility] Unavailable [address] + [place] [address] RICCO, FADUMO Unavailable [address] + [place] [address] TOSHIA WILCOX Unavailable [address] [place] [address] + [place] [address] [facility] Unavailable [address] + [place] [address] RICCO, FADUMO Unavailable [address] + [place] [address] TOSHIA WILCOX Unavailable [address] [place] [address] + [place] [address] [facility] Unavailable [address] + [place] [address] RICCO, FADUMO Unavailable [address] + [place] [address] TOSHIA WILCOX Unavailable [address] [place] [address] + [place] [address] [facility] Unavailable [address] + [place] [address] RICCO, FADUMO Unavailable [address] + [place] [address] TOSHIA WILCOX Unavailable [address] [place] [address] + [place] [address] [facility] Unavailable [address] + [place] [address] RICCO, FADUMO Unavailable [address] + [place] [address] TOSHIA WILCOX Unavailable [address] [place] [address] + [place] [address] [facility] Unavailable [address] + [place] [address] RICCO, FADUMO Unavailable [address] + [place] [address] MARK, TOSHIA Unavailable [address] [place] [address] + [place] [address] [facility] Unavailable [address] + [place] [address] RICCO, FADUMO Unavailable [address] + [place] [address] MARK TOSHIA Unavailable [address] [place] [address] + [place] [address] [facility] Unavailable [address] + [place] [address] RICCO, FADUMO Unavailable [address] + [place] [address] KATHLEEN WILCOXLIE Unavailable [address] [place] [address] + [place] [address] [facility] Unavailable [address] + [place] [address] RICCO, FADUMO Unavailable [address] + [place] [address] KATHLEEN WILCOXLIE Unavailable [address] [place] [address] + [place] [address] [facility] Unavailable [address] + [place] [address] RICCO, FADUMO Unavailable [address] + [place] [address] KATHLEEN WILCOXLIE Unavailable [address] [place] [address] + [place] [address] WC Unavailable [address] + [place] [address] RICCO, FADUMO Unavailable [address] + [place] [address] MARK TOSHIA Unavailable [address] [place] [address] + [place] [address] [facility] Unavailable [address] + [place] [address] RICCO, FADUMO Unavailable [address] + [place] [address] MARK TOSHIA Unavailable [address] [place] [address] + [place] [address] [facility] Unavailable [address] + [place] [address] FADUMO CHACKO Unavailable [address] [facility] + [place] [address] TOSHIA WILCOX Unavailable [address] + [place] [address] [facility] Unavailable [address] + [place] [id number] Care Team Providers Name Role Phone ROSHNI, CLIFFORD James Attending Unavailable MASCI, CLIFFORD James [...] Referring Unavailable PITASAWYER Attending Unavailable MASCI, CLIFFORD James Referring Unavailable MASCI, CLIFFORD James Attending Unavailable MASCI, CLIFFORD James Referring Unavailable MASCI, CLIFFORD James Referring Unavailable ASIA REYES (MACHINERY MECHANIC) Attending Unavailable MASCI, CLIFFORD James Referring Unavailable MASCI, CLIFFORD James Attending Unavailable MASCI, CLIFFORD James Referring Unavailable MASCI, CLIFFORD James Attending Unavailable MASCI, CLIFFORD James Referring Unavailable ASIA REYES (MACHINERY MECHANIC) Attending Unavailable MASCI, CLIFFORD James Referring Unavailable [...] Attending Unavailable MASCI, CLIFFORD James Referring Unavailable Masci, Clifford Attending Unavailable Masci, [...] Primary Care Unavailable Masci, Clifford Referring Unavailable Masci, Clifford [...] Referring Unavailable Person, Jacinto Primary Care Unavailable Karen Donovanman Consulting Unavailable Masci, Clifford Attending Unavailable Masci, Clifford Referring Unavailable Person, Jacinto Primary Care Unavailable Masci, Clifford Attending Unavailable Masci, Clifford Referring Unavailable Person, Jacinto Primary Care Unavailable Masci, Clifford Attending Unavailable Masci, Clifford Referring Unavailable Person, Jacinto Primary Care Unavailable Masci, Clifford Attending Unavailable Masci, Clifford Referring Unavailable Person, Jacinto Primary Care Unavailable Arabella Donovan Consulting Unavailable Masci, Clifford Attending Unavailable Masci, Clifford Referring Unavailable Person, Jacinto Primary Care Unavailable Masci, Clifford Attending Unavailable Person, Jacinto Primary Care Unavailable Person, Jacinto Primary Care Unavailable Johnny Santos Attending Unavailable PrahGarcia Attending Unavailable Person, Jacinto Referring Unavailable Person, Jacinto Primary Care Unavailable Garcia Reed Attending Unavailable Person, Jacinto Referring Unavailable Person, Jacinto Primary Care Unavailable PraGarcia bullock Consulting Unavailable Person, Jacinto Attending Unavailable Person, Jacinto Referring Unavailable Person, Jacinto Primary Care Unavailable Mascmike, Clifford Attending Unavailable Masci, Clifford Referring Unavailable Person, Jacinto Primary Care Unavailable Mascmike, Clifford Attending Unavailable Masci, Clifford Referring Unavailable Person, Jacinto Primary Care Unavailable Person, Jacinto Attending Unavailable Person, Jacinto Referring Unavailable Person, Jacinto Primary Care Unavailable Mascmike, Clifford Consulting Unavailable Basalmike, Bhanu Consulting Unavailable Roshni, Clifford Attending Unavailable Mascmike, Clifford Referring Unavailable Person, Jacinto Primary Care Unavailable Mascmike, Clifford Attending Unavailable Masci, Clifford Referring Unavailable Person, Jacinto Primary Care Unavailable Mascmike, Clifford Attending Unavailable Mascmike, Clifford Referring Unavailable Person, Jacinto Primary Care Unavailable Mascmike, Clifford Attending Unavailable Person, Jacinto Primary Care Unavailable Mascmike, Clifford Referring Unavailable Nurse, Surgery Attending Unavailable Person, Jacinto Referring Unavailable Masci, Clifford Attending Unavailable Masci, Clifford Referring Unavailable Person, Jacinto Primary Care Unavailable Masci, Clifford Attending Unavailable Person, Jacinto Primary Care Unavailable Su, Eric Attending Unavailable Person, Jacinto Primary Care Unavailable [...] Referring Unavailable Person, Jacinto Primary Care Unavailable PROBLEMS PROBLEMS DATE TYPE CONDITION / CODE ATTENDING STATUS SOURCE 05/09/2018 Unknown C50.411 - Malignant Clifford Barakat Active [facility] neoplasm of [facility] of right female Repository breast / C50.411(ICD-10) 04/17/2018 Unknown 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 / Hospital C78.02(ICD-10) Repository 04/17/2018 Unknown Z17.1 - Estrogen MascClifford mckeon Active [place] receptor negative Community status [ER-] / Hospital Z17.1(ICD-10) Repository 04/20/2018 Unknown Z51.11 - Encounter MascClifford mckeon Active [facility] for antineoplastic Community chemotherapy / Hospital Z51.11(ICD-10) Repository 01/27/2018 Unknown 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 / Hospital C79.51(ICD-10) Repository 10/20/2017 Active Unknown / [facility] TOUSS[facility]INT [facility] [place] Repository 10/05/2017 Unknown C50.911 - Malignant MascClifford mckeon Active [facility] neoplasm of Community unspecified site of Hospital right female breast Repository / C50.911(ICD-10) 09/15/2017 Unknown R10.84 - Generalized Jacinto Person Active [place] abdominal pain / Community R10.84(ICD-10) Hospital Repository 11/07/2017 Unknown R41.0 - Johnny Santos Active [facility] Disorientation, Community unspecified / Hospital R41.0(ICD-10) Repository PROCEDURES PROCEDURES No Procedure Records FoundRESULTS RESULTS CBC W/DIFF, AUTOMATED Collected: 05/09/2018 Status: F Source: [place] 8:14 AM [facility] REPOSITORY TYPE CODE TESTS RESULT OUT OF RANGE REFERENCE UNITS LAB L100.1000 4.4-11.0 K/mm3 Normal WBC 4.7 LAB L100.1200 4.2-5.4 M/mm3 Low RBC 3.39 LAB L100.1300 12.0-15.0 g/dl Low HGB 10.1 LAB L100.1400 37-47 % Low HCT 31.8 LAB L100.1500 81-99 fL Normal MCV 93.8 LAB L100.1600 27.0-32.0 pg Normal MCH 29.8 LAB L100.1700 32-36 g/gl Low MCHC 31.8 LAB L100.1810 11.6-14.6 % Normal RDW CV 13.4 LAB L100.1820 35.1-43.9 fl High RDW SD 45.4 LAB L100.1900 150-450 K/mm3 Normal PLT 226 LAB L100.2000 6.2-12.0 fl Normal MPV 9.6 LAB L100.2100 47-70 % Normal NEUT% 56.7 LAB L100.2200 19-41 % Normal LY% 34.8 LAB L100.2300 0-10 % Normal MONO% 6.8 LAB L100.2400 0-5 % Normal EO% 1.5 LAB L100.2500 0-1 % Normal BASO% 0.2 LAB L100.2550 0.0-0.9 % Normal IM GRAN % 0.000 Result Comment: IG% - Immature Granulocytes (promyelocytes, myelocytes and metamyelocytes) > 1% indicates that a LEFT SHIFT is Present. LAB L100.2620 2.0-7.7 X10 3/uL Normal Absolute Neut 2.7 LAB L100.2720 0.83-4.51 X10 3/ul Normal Absolute Lymph 1.63 Performed By: #### L100.0100 #### [facility] [address] [place], [place] [address]all [facility] [place], [address] BASIC METABOLIC Collected: 05/09/2018 Status: F Source: [place] PROFILE (BMP) 8:14 AM [facility] [place] TYPE CODE TESTS RESULT OUT OF RANGE REFERENCE UNITS LAB L501.0100 74-106 mg/dL High GLU 194 Result Comment: Fasting Glucose result greater than or equal to 126 mg/dL suggests DIABETES MELLITUS per A.D.A. criteria. Please note revised GLUCOSE reference range effective 2017. LAB L501.1000 7-18 mg/dL High BUN 27 LAB L501.1100 0.55-1.02 mg/dL Normal CREAT,SERUM 0.60 Result Comment: The validity of the calculated GFR AND GFRAA in patients over 70 years has not been determined. Clinical correlation is essential. LAB L501.1110 >60 mL/min Normal EST GFR 113 Result Comment: Non- GFR Calc LAB L501.1115 >60 mL/min Normal EST GFR - AA 137 Result Comment: GFR Calc LAB L501.1300 10-20 RATIO High BUN/CRE 45.1 LAB L501.2200 8.5-10.1 mg/dL CA Normal 8.6 LAB L501.5300 136-145 mmol/L NA Normal 141 LAB L501.5600 3.5-5.1 mmol/L K Normal 4.3 LAB L501.5900 98-107 mmol/L CL Normal 105 LAB L501.6100 21.0-32.0 mmol/L Normal CO2 28.0 LAB L501.6200 5-15 Normal GAP 8 Performed By: #### L500.2500, L500.3400 #### [facility] [address] [place], [place], [id number] LIVER PROFILE Collected: 05/09/2018 Status: F Source: [place] 8:14 AM [facility] [place] TYPE CODE TESTS RESULT OUT OF RANGE REFERENCE UNITS LAB L501.1500 6.4-8.2 g/dL Normal T PROT 7.5 LAB L501.1800 3.2-5.0 g/dL Low ALB 3.1 LAB L501.1950 2.2-4.2 g/dL High GLOB 4.4 LAB L501.4100 15-37 U/L Low AST 13 LAB L501.4305 45-117 U/L Normal ALK P 81 LAB L501.4405 13-56 U/L Normal ALT 24 LAB L501.4600 0.20-1.00 mg/dL Normal T BILI 0.20 LAB L501.4700 0.00-0.30 mg/dL Normal D BILI 0.09 Performed By: #### L500.2500, L500.3400 #### [facility] [address] [place], [place], [address] PROGRESS Observed: 05/03/2018 Status: COMPLETED Source: [place] 8:50 AM [facility] REPOSITORY HNO ID: [id number] Author: Clifford Barakat Service: (none) Author Type: Physician Type: Progress Notes Filed: 05/03/2018 9:02 AM Note Text: Diagnosis: 1) Breast cancer. [...] stopped after cycle #2. Was seen by reforestation worker at . Biopsy showed myopathy, but etiology [...] specimen was negative for both ER and MN as well as HER- 2. I discussed the case with the pathologist today who told me that histologically/morphologically the specimen was consistent with her previous specimen of breast cancer. The pathologist will issue an addendum quantifying ER and MN 0 as well as HER-2 at 0. [...] poorly differentiated carcinoma. See comment. COMMENT Immunohistochemistry ([id number]) does not rule out a breast primary. There is focal perinodal extension of tumor. Clinical correlation is suggested. ANTIBODY / CLONE RESULT Block 1 Mammaglobin (31A5) negative GATA3 (L50-823) positive, rare, dim CK8 (72gqzyD30) positive Ki-67 (30-9) positive, moderate to high ER (6F11) negative 0% MN (1E2) negative 0% CK19 (A53-B/A2.26) positive Cyclin D1/BCL-1 (SP4) positive CEA (11-7/TF-3HB-1) negative SHELLI (E29) positive CK20 (KS20.8) negative Villin (CWWB1) negative RCC (PN-15) negative CA125 (OC125) positive Previous therapy for metastatic disease: 1) Cisplatin (+/- PARP inhibitor on trial). 2) [place]/carbo. She underwent a CT scan of the neck, chest abdomen and pelvis at [facility] on 10/05/2017. The CT of the [...] Came off trial. She was seen at [facility] and did not qualify for the 2 clinical trials available due to her pre-existing diabetic neuropathy and history of type 1 diabetes. Current therapy: 1) Gemcitabine single agent. Interim history: Received Day 8 last week along with Zometa. No reaction thus far. She remains discouraged. Waiting on disability. Nausea not as bad. No change neuropathy symptoms. Fell off chair at work and landed on left hip. More pain. PMH, medications and allergies as below personally reviewed by me today. Any changes documented in appropriate section. PHYSICAL EXAM: Vitals: Blood pressure 140/69, pulse 97, temperature 36.7 ?C (98 ?F), temperature source Temporal Artery, weight 88 kg (194 lb). Well-appearing and in no acute distress. [...] No jaundice or rash. No petechiae. 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 No focal motor weakness. Patellar DTRs absent. MS: No tenderness with palpation over left greater trochanter. ASSESSMENT/PLAN: (C50.411, Z17.1) Malignant neoplasm of upper-outer [...] Right supra-clavicular lymph node is stable by exam, although still palpable. Plan: -Okay to proceed with next cycle treatment. -Zometa every 6 weeks. -CTs/bone scan following next cycle (~end of May). Clifford Barakat DO CNOVSP Observed: 05/03/2018 Status: COMPLETED Source: [facility] 8:30 AM [facility] REPOSITORY Visit (SP) Office (DANYEL) PEDRO LUIS WILCOX ([id number]) 1970 F Date Time Provider Department 05/03/18 8:30 AM CLIFFORD BARAKAT During your visit today, we recorded the following information about you: Temperature Pulse Blood pressure Weight 98 degrees 97/minute 140/69 88 kg Federica Pimentel TIFFANIE 05/03/2018 8:55 AM Signed Est patient. One month office visit. Federica Leyla Barakat DO 05/03/2018 9:02 AM Signed Diagnosis: 1) Breast cancer. HPI: [...] stopped after cycle #2. Was seen by reforestation worker at . Biopsy showed myopathy, but etiology [...] specimen was negative for both ER and MN as well as HER-2. I discussed the case with the pathologist today who told me that histologically/morphologically the specimen was consistent with her previous specimen of breast cancer. The pathologist will issue an addendum quantifying ER and MN 0 as well as HER-2 at 0. [...] poorly differentiated carcinoma. See comment. COMMENT Immunohistochemistry ([id number]) does not rule out a breast primary. There is focal perinodal extension of tumor. Clinical correlation is suggested. ANTIBODY / CLONE RESULT Block 1 Mammaglobin (31A5) negative GATA3 (L50-823) positive, rare, dim CK8 ([id number]) positive Ki-67 (30-9) positive, moderate to high ER (6F11) negative 0% MN (1E2) negative 0% CK19 (A53-B/A2.26) positive Cyclin D1/BCL-1 (SP4) positive CEA (11-7/TF-3HB-1) negative SHELLI (E29) positive CK20 (KS20.8) negative Villin (CWWB1) negative RCC (PN-15) negative CA125 (OC125) positive Previous therapy for metastatic disease: 1) Cisplatin (+/- PARP inhibitor on trial). 2) [place]/carbo. She underwent a CT scan of the neck, chest abdomen and pelvis at [facility] on 10/05/2017. The CT of the [...] Came off trial. She was seen at [facility] and did not qualify for the 2 clinical trials available due to her pre-existing diabetic neuropathy and history of type 1 diabetes. Current therapy: 1) Gemcitabine single agent. Interim history: Received Day 8 last week along with Zometa. No reaction thus far. She remains discouraged. Waiting on disability. Nausea not as bad. No change neuropathy symptoms. Fell off chair at work and landed on left hip. More pain. PMH, medications and allergies as below personally reviewed by me today. Any changes documented in appropriate section. PHYSICAL EXAM: Vitals: Blood pressure 140/69, pulse 97, temperature 36.7 ?C (98 ?F), temperature source Temporal Artery, weight 88 kg (194 lb). Well-appearing and in no acute distress. [...] No jaundice or rash. No petechiae. 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 No focal motor weakness. Patellar DTRs absent. MS: No tenderness with palpation over left greater trochanter. ASSESSMENT/PLAN: (C50.411, Z17.1) Malignant neoplasm of upper-outer [...] Right supra-clavicular lymph node is stable by exam, although still palpable. Plan: -Okay to proceed with next cycle treatment. -Zometa every 6 weeks. -CTs/bone scan following next cycle (~end of May). 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 Anxiety State, Unspecified [F41.1] 01/22/2009 Depressive Disorder, not Elsewhere Classified [* More... DM w/o complication type II, uncontrolled [E11.*INVALID FOR* More... Other Malaise and Fatigue [R53.81, R53.83] INVALID FOR*01/22/2009 More... HYPERLIPIDEMIA NEC/NOS [E78.5] INVALID FOR* FIBROMYALGIA [[id number]] INVALID FOR* OVERWEIGHT [E66.9] INVALID FOR* OTHER [...] FOR* Visit Notes: >> Federica Pimentel LPN TueMay 03, 2018 8:30 AM Status: Signed Est patient. One month office visit. Federica Pimentel LPN Encounter Status:Closed by CLIFFORD BARAKAT DO on 05/03/18 CBC W/DIFF, AUTOMATED Collected: 04/25/2018 Status: F Source: [place] 12:25 PM [facility] [place] TYPE CODE TESTS RESULT OUT OF RANGE REFERENCE UNITS LAB L100.1000 4.4-11.0 K/mm3 Normal WBC 5.2 LAB L100.1200 4.2-5.4 M/mm3 Low RBC 3.44 LAB L100.1300 12.0-15.0 g/dl Low HGB 10.2 LAB L100.1400 37-47 % Low HCT 31.6 LAB L100.1500 81-99 fL Normal MCV 91.9 LAB L100.1600 27.0-32.0 pg Normal MCH 29.7 LAB L100.1700 32-36 g/gl Normal MCHC 32.3 LAB L100.1810 11.6-14.6 % Normal RDW CV 12.4 LAB L100.1820 35.1-43.9 fl Normal RDW SD 41.9 LAB L100.1900 150-450 K/mm3 Normal PLT 221 LAB L100.2000 6.2-12.0 fl Normal MPV 9.4 LAB L100.2100 47-70 % Normal NEUT% 61.5 LAB L100.2200 19-41 % Normal LY% 34.8 LAB L100.2300 0-10 % Normal MONO% 2.5 LAB L100.2400 0-5 % Normal EO% 0.6 LAB L100.2500 0-1 % Normal BASO% 0.6 LAB L100.2550 0.0-0.9 % Normal IM GRAN % 0.000 Result Comment: IG% - Immature Granulocytes (promyelocytes, myelocytes and metamyelocytes) > 1% indicates that a LEFT SHIFT is Present. LAB L100.2620 2.0-7.7 X10 3/uL Normal Absolute Neut 3.2 LAB L100.2720 0.83-4.51 X10 3/ul Normal Absolute Lymph 1.81 Performed By: #### L100.0100 #### [facility] [address] [place], [place], [address] BASIC METABOLIC Collected: 04/25/2018 Status: F Source: [place] PROFILE ([facility]) 12:25 PM [facility] [place] TYPE CODE TESTS RESULT OUT OF RANGE REFERENCE UNITS LAB L501.0100 74-106 mg/dL High GLU 341 Result Comment: Glucose result greater than or equal to 200 mg/dL suggests DIABETES MELLITUS per A.D.A. criteria. Please note revised GLUCOSE reference range effective 2017. LAB L501.1000 7-18 mg/dL High BUN 22 LAB L501.1100 0.55-1.02 mg/dL Normal CREAT,SERUM 0.66 Result Comment: The validity of the calculated GFR AND GFRAA in patients over 70 years has not been determined. Clinical correlation is essential. LAB L501.1110 >60 mL/min Normal EST GFR 101 Result Comment: Non- GFR Calc LAB L501.1115 >60 mL/min Normal EST GFR - AA 122 Result Comment: GFR Calc LAB L501.1300 10-20 RATIO High BUN/CRE 33.1 LAB L501.2200 8.5-10.1 mg/dL CA Normal 8.9 LAB L501.5300 136-145 mmol/L Low NA 135 LAB L501.5600 3.5-5.1 mmol/L K Normal 4.3 LAB L501.5900 98-107 mmol/L Low CL 97 LAB L501.6100 21.0-32.0 mmol/L Normal CO2 29.0 LAB L501.6200 5-15 Normal GAP 9 Performed By: #### L500.2500, L500.3400 #### [facility] [address] [facility] [place], [address] LIVER PROFILE Collected: 04/25/2018 Status: F Source: [place] 12:25 PM [facility] [place] TYPE CODE TESTS RESULT OUT OF RANGE REFERENCE UNITS LAB L501.1500 6.4-8.2 g/dL Normal T PROT 7.9 LAB L501.1800 3.2-5.0 g/dL Low ALB 3.1 LAB L501.1950 2.2-4.2 g/dL High GLOB 4.8 LAB L501.4100 15-37 U/L Low AST 12 LAB L501.4305 45-117 U/L Normal ALK P 95 LAB L501.4405 13-56 U/L Normal ALT 31 LAB L501.4600 0.20-1.00 mg/dL Normal T BILI 0.20 LAB L501.4700 0.00-0.30 mg/dL Normal D BILI 0.06 Performed By: #### L500.2500, L500.3400 #### [facility] [address] [place], [address] CBC W/DIFF, AUTOMATED Collected: 04/19/2018 Status: F Source: [place] 7:40 AM [facility] [place] TYPE CODE TESTS RESULT OUT OF RANGE REFERENCE UNITS LAB L100.1000 4.4-11.0 K/mm3 Normal WBC 5.9 LAB L100.1200 4.2-5.4 M/mm3 Low RBC 3.63 LAB L100.1300 12.0-15.0 g/dl Low HGB 11.1 LAB L100.1400 37-47 % Low HCT 33.9 LAB L100.1500 81-99 fL Normal MCV 93.4 LAB L100.1600 27.0-32.0 pg Normal MCH 30.6 LAB L100.1700 32-36 g/gl Normal MCHC 32.7 LAB L100.1810 11.6-14.6 % Normal RDW CV 12.1 LAB L100.1820 35.1-43.9 fl Normal RDW SD 39.8 LAB L100.1900 150-450 K/mm3 Normal PLT 316 LAB L100.2000 6.2-12.0 fl Normal MPV 9.8 LAB L100.2100 47-70 % Normal NEUT% 54.6 LAB L100.2200 19-41 % Normal LY% 35.0 LAB L100.2300 0-10 % Normal MONO% 8.7 LAB L100.2400 0-5 % Normal EO% 1.0 LAB L100.2500 0-1 % Normal BASO% 0.5 LAB L100.2550 0.0-0.9 % Normal IM GRAN % 0.200 Result Comment: IG% - Immature Granulocytes (promyelocytes, myelocytes and metamyelocytes) > 1% indicates that a LEFT SHIFT is Present. LAB L100.2620 2.0-7.7 X10 3/uL Normal Absolute Neut 3.2 LAB L100.2720 0.83-4.51 X10 3/ul Normal Absolute Lymph 2.05 Performed By: #### L100.0100 #### [facility] [address] [place], [place], [address] BASIC METABOLIC Collected: 04/19/2018 Status: F Source: [place] PROFILE ([facility]) 7:40 AM [facility] [place] TYPE CODE TESTS RESULT OUT OF RANGE REFERENCE UNITS LAB L501.0100 74-106 mg/dL High GLU 417 Result Comment: Glucose result greater than or equal to 200 mg/dL suggests DIABETES MELLITUS per A.D.A. criteria. Please note revised GLUCOSE reference range effective 2017. LAB L501.1000 7-18 mg/dL High BUN 31 LAB L501.1100 0.55-1.02 mg/dL Normal CREAT,SERUM 0.84 Result Comment: The validity of the calculated GFR AND GFRAA in patients over 70 years has not been determined. Clinical correlation is essential. LAB L501.1110 >60 mL/min Normal EST GFR 76 Result Comment: Non- GFR Calc LAB L501.1115 >60 mL/min Normal EST GFR - AA 93 Result Comment: GFR Calc LAB L501.1300 10-20 RATIO High BUN/CRE 36.8 LAB L501.2200 8.5-10.1 mg/dL CA Normal 9.1 LAB L501.5300 136-145 mmol/L NA Normal 136 LAB L501.5600 3.5-5.1 mmol/L K Normal 4.9 LAB L501.5900 98-107 mmol/L Low CL 97 LAB L501.6100 21.0-32.0 mmol/L Normal CO2 29.0 LAB L501.6200 5-15 Normal GAP 10 Performed By: #### L500.2500, L500.3400 #### [facility] [address] [place], [address] LIVER PROFILE Collected: 04/19/2018 Status: F Source: [place] 7:40 AM [facility] [place] TYPE CODE TESTS RESULT OUT OF RANGE REFERENCE UNITS LAB L501.1500 6.4-8.2 g/dL Normal T PROT 7.9 LAB L501.1800 3.2-5.0 g/dL Low ALB 3.1 LAB L501.1950 2.2-4.2 g/dL High GLOB 4.8 LAB L501.4100 15-37 U/L Low AST 13 LAB L501.4305 45-117 U/L Normal ALK P 108 LAB L501.4405 13-56 U/L Normal ALT 20 LAB L501.4600 0.20-1.00 mg/dL Normal T BILI 0.20 LAB L501.4700 0.00-0.30 mg/dL Normal D BILI 0.07 Performed By: #### L500.2500, L500.3400 #### [facility] [address] [place], [address] PROGRESS Observed: 04/12/2018 Status: COMPLETED Source: [facility] 3:49 PM [facility] REPOSITORY HNO ID: [id number] Author: Isha Servin (Sw) Service: (none) Author Type: Aircraft Painter Type: Progress Notes Filed: 04/12/2018 3:54 PM Note Text: Social Work Problem Referral Note INFORMATION/REFERRAL : Pedro Luis Wilcox 47 year old female was referred by Nurse Crystal with [employer] to [facility] Social Work for the following reason(s): disability planning PERSONS INTERVIEWED: patient not present INTERVENTION: Information AND Referral Service Co-ordination Affect/Mood: The patient is noted as patient not present IDENTIFIED PROBLEMS/NEEDS: Disability Intervention/Referral to be provided:No further intervention required IMPRESSION/PLAN: HILARIO received message from Crystal with [employer] regarding patient's disability claim. Crystal states most recent office visit notes and scans are needed and provided SW with fax number to send them to. HILARIO faxed to number provided and called patient to inform her this was sent and to assess for further needs. HILARIO left a message for patient. F/U APPOINTMENT: ANNAMARIA Nunez CNSW Observed: 04/12/2018 Status: COMPLETED Source: [facility] 12:00 AM [facility] REPOSITORY Social Work (DANYEL) PEDRO LUIS WILCOX ([id number]) 1970 F Date Time Provider Department 04/12/18 ISHA SERVIN (SW) During your visit today, we recorded the following information about you: ANNAMARIA Schroeder 04/12/2018 3:54 PM Signed Social Work Problem Referral Note INFORMATION/REFERRAL : Pedro Luis Wilcox 47 year old female was referred by Nurse Crystal with [employer] to [facility] Social Work for the following reason(s): disability planning PERSONS INTERVIEWED: patient not present INTERVENTION: Information AND Referral Service Co-ordination Affect/Mood: The patient is noted as patient not present IDENTIFIED PROBLEMS/NEEDS: Disability Intervention/Referral to be provided:No further intervention required IMPRESSION/PLAN: HILARIO received message from Crystal with [employer] regarding patient's disability claim. Crystal states most recent office visit notes and scans are needed and provided HILARIO with fax number to send them to. HILARIO faxed to number provided and called patient to inform her this was sent and to assess for further needs. SW left a message for patient. F/U APPOINTMENT: PRN ANNAMARIA Schroeder Allergies As of Date: 04/12/2018 (No Known Allergies) Date Reviewed: 04/04/2018 Reviewed by: Federica Pimentel LPN - Fully Assessed Reason for Visit: Social Work Services [507] Prescriptions as of 04/12/2018 Sig: VITAMIN B COMPLEX CAPSULE Take 1 [...] * Patient not taking: Reported on 01/23/2018 TIMOLOL 0.5 % EYE DROPS Use 1 Drop in both eyes once * VALACYCLOVIR 500 MG TABLET Take 500 mg by mouth as neede* Problem List As Of Date 04/12/2018 Noted Resolved THYROID NODULE [E04.1] INVALID FOR* More... Anxiety State, Unspecified [F41.1] 01/22/2009 Depressive Disorder, not Elsewhere Classified [* More... DM w/o complication type II, uncontrolled [E11.*INVALID FOR* More... Other Malaise and Fatigue [R53.81, R53.83] INVALID FOR*01/22/2009 More... HYPERLIPIDEMIA NEC/NOS [E78.5] INVALID FOR* FIBROMYALGIA [[id number]] INVALID FOR* OVERWEIGHT [E66.9] INVALID FOR* OTHER [...] FOR* Encounter Status:Closed by ISHA SERVIN on 04/12/18 PROGRESS Observed: 04/04/2018 Status: COMPLETED Source: [facility] 9:15 AM [facility] REPOSITORY HNO ID: [id number] Author: Clifford Barakat Service: (none) Author Type: [...] stopped after cycle #2. Was seen by reforestation worker at . Biopsy showed myopathy, but etiology [...] specimen was negative for both ER and MN as well as HER- 2. I discussed the case with the pathologist today who told me that histologically/morphologically the specimen was consistent with her previous specimen of breast cancer. The pathologist will issue an addendum quantifying ER and MN 0 as well as HER-2 at 0. [...] poorly differentiated carcinoma. See comment. COMMENT Immunohistochemistry ([id number]) does not rule out a breast primary. There is focal perinodal extension of tumor. Clinical correlation is suggested. ANTIBODY / CLONE RESULT Block 1 Mammaglobin (31A5) negative GATA3 (L50-823) positive, rare, dim CK8 (98gnseT33) positive Ki-67 (30-9) positive, moderate to high ER (6F11) negative 0% MN (1E2) negative 0% CK19 (A53-B/A2.26) positive Cyclin D1/BCL-1 (SP4) positive CEA (11-7/TF-3HB-1) negative SHELLI (E29) positive CK20 (KS20.8) negative Villin (CWWB1) negative RCC (PN-15) negative CA125 (OC125) positive Previous therapy for metastatic disease: 1) Cisplatin (+/- PARP inhibitor on trial). 2) [place]/carbo. She underwent a CT scan of the neck, chest abdomen and pelvis at [facility] on 10/05/2017. The CT of the [...] Came off trial. She was seen at [facility] and did not qualify for the 2 [...] No jaundice or rash. No petechiae. 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 No focal motor [...] DO CNOVSP Observed: 04/04/2018 Status: COMPLETED Source: [facility] 9:10 AM [facility] REPOSITORY Visit (SP) Office (DANYEL) PEDRO LUIS WILCOX ([id number]) 1970 F Date Time Provider Department 04/04/18 9:10 AM CLIFFORD BARAKAT During your visit today, we recorded the following information about you: Temperature Pulse Blood pressure Weight 98.9 degrees 104/minute 145/81 89.6 kg Federica Pimentel TIFFANIE 04/04/2018 9:23 AM Signed Est patient. Bone scan @ [facility]. Federica Leyla Barakat DO 04/04/2018 9:39 AM Signed Diagnosis: 1) Breast [...] stopped after cycle #2. Was seen by reforestation worker at . Biopsy showed myopathy, but etiology [...] specimen was negative for both ER and MN as well as HER-2. I discussed the case with the pathologist today who told me that histologically/morphologically the specimen was consistent with her previous specimen of breast cancer. The pathologist will issue an addendum quantifying ER and MN 0 as well as HER-2 at 0. [...] poorly differentiated carcinoma. See comment. COMMENT Immunohistochemistry ([id number]) does not rule out a breast primary. There is focal perinodal extension of tumor. Clinical correlation is suggested. ANTIBODY / CLONE RESULT Block 1 Mammaglobin (31A5) negative GATA3 (L50-823) positive, rare, dim CK8 (38jufbR36) positive Ki-67 (30-9) positive, moderate to high ER (6F11) negative 0% MN (1E2) negative 0% CK19 (A53-B/A2.26) positive Cyclin D1/BCL-1 (SP4) positive CEA (11-7/TF-3HB-1) negative SHELLI (E29) positive CK20 (KS20.8) negative Villin (CWWB1) negative RCC (PN-15) negative CA125 (OC125) positive Previous therapy for metastatic disease: 1) Cisplatin (+/- PARP inhibitor on trial). 2) [place]/carbo. She underwent a CT scan of the neck, chest abdomen and pelvis at [facility] on 10/05/2017. The CT of the [...] Came off trial. She was seen at [facility] and did not qualify for the 2 [...] No jaundice or rash. No petechiae. 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 No focal motor [...] Clifford Barakat DO Referring Provider: CLIFFORD BARAKAT [[id number]] Allergies As of Date: 04/04/2018 (No Known [...] More... HYPERLIPIDEMIA NEC/NOS [E78.5] INVALID FOR* FIBROMYALGIA [[id number]] INVALID FOR* OVERWEIGHT [E66.9] INVALID FOR* OTHER [...] FOR* Visit Notes: >> Federica Pimentel LPN TueApr 04, 2018 9:10 AM Status: Signed Est patient. Bone scan @ [facility]. Federica Pimentel LPN Encounter Status:Closed by CLIFFORD BARAKAT DO on 04/04/18 CBC W/DIFF, AUTOMATED Collected: 04/04/2018 Status: F Source: [place] 7:29 AM [facility] [place] TYPE CODE TESTS RESULT OUT OF [...] Lymph 1.45 Performed By: #### L100.0100 #### [facility] [place], [address] BASIC METABOLIC Collected: 04/04/2018 Status: F Source: [place] PROFILE (B[place]) 7:29 AM [facility] [place] TYPE CODE TESTS RESULT OUT OF [...] 7 Performed By: #### L500.2500, L500.3400 #### [facility] [address] [place], [address] LIVER PROFILE Collected: 04/04/2018 Status: F Source: [place] 7:29 AM [facility] [place] TYPE CODE TESTS RESULT OUT OF [...] 0.06 Performed By: #### L500.2500, L500.3400 #### [facility] [address] [place], [address] THORACIC SPINE 3 Observed: 04/03/2018 Status: F Source: [place] VIEWS 11:02 AM [facility] [place] [facility] Imaging Services [address] [place] [address] Thoracic Spine 3 Views MR#: [id number] Acct: [id number] Name: PEDRO LUIS WILCOX Rep #: [id number] : 1970 F 47 From: Marck Garcia MD PCP: Jacinto Person MD Status: REG CLI Study: Thoracic Spine 3 Views Date of Exam: 04/03/18 Exam# [id number] Ordering Dr: Clifford Barakat DO STUDY: X-RAY [...] CC: Jacinto Person MD; Clifford Barakat DO Storage Battery Charger: Signed BONE SCAN WHOLE Observed: 03/30/2018 Status: F Source: [place] B[place] 10:29 AM [facility] [place] [facility] Imaging Services [address] [place] [address] Bone Scan Whole Body MR#: [id number] Acct: [id number] Name: PEDRO LUIS WILCOX Rep #: [id number] : 1970 F 47 From: Clay Real DO PCP: Jacinto Person MD Status: REG CLI Study: Bone Scan Whole Body Date of Exam: 03/30/18 Exam# [id number] Ordering Dr: Clifford Barakat DO CLINICAL: 47-year-old [...] CC: Jacinto Person MD; Clifford Barakat DO Storage Battery Charger: Signed ABDOMEN/PELVIS WITH Observed: 03/27/2018 Status: F Source: [place] CONTRAST 7:52 AM [facility] [place] [facility] Imaging Services [address] [place] [address] Abdomen/Pelvis WITH Contrast MR#: [id number] Acct: [id number] Name: PEDRO LUIS WILCOX Rep #: [id number] : 1970 F 47 From: Jina Arciniega MD PCP: Jacinto Person MD Status: REG CLI Study: Abdomen/Pelvis WITH Contrast Date of Exam: 03/27/18 Exam# [id number] Ordering Dr: Clifford Barakat DO STUDY: CT [...] CC: Jacinto Person MD; Clifford Barakat DO Storage Battery Charger: Signed CHEST WITH CONTRAST Observed: 03/27/2018 Status: F Source: [place] 7:52 AM [facility] [place] [facility] Imaging Services [address] [place] [address] Chest WITH Contrast MR#: [id number] Acct: [id number] Name: PEDRO LUIS WILCOX Rep #: [id number] : 1970 F 47 From: Jina Arciniega MD PCP: Jacinto Person MD Status: REG CLI Study: Chest WITH Contrast Date of Exam: 03/27/18 Exam# [id number] Ordering Dr: Clifford Barakat DO STUDY: CT [...] CC: Jacinto Person MD; Clifford Barakat DO Storage Battery Charger: Signed CBC W/DIFF, AUTOMATED Collected: 03/21/2018 Status: F Source: [place] 1:17 PM [facility] [place] TYPE CODE TESTS RESULT OUT OF [...] Lymph 1.53 Performed By: #### L100.0100 #### [facility] [address] [place], [place], [address] BASIC METABOLIC Collected: 03/21/2018 Status: F Source: [place] PROFILE ([place]) 1:17 PM [facility] [place] TYPE CODE TESTS RESULT OUT OF [...] 9 Performed By: #### L500.2500, L500.3400 #### [facility] [address] [facility] [place], [place], [address] LIVER PROFILE Collected: 03/21/2018 Status: F Source: [place] 1:17 PM [facility] [place] TYPE CODE TESTS RESULT OUT OF [...] 0.08 Performed By: #### L500.2500, L500.3400 #### [facility] [address] [place], [address] [facility] Observed: 03/21/2018 Status: COMPLETED Source: [place] 12:00 AM [facility] REPOSITORY Telephone (HEMAWS) PEDRO LUIS WILCOX ([id number]) 1970 F Date Time Provider Department 03/21/18 [...] am and 70 units in* * HUMALOG JENNIFFERPEN (U-100) INSUL* 15 in am, 15 noon, 20 in philip Problem List As Of Date 03/21/2018 Noted Resolved THYROID NODULE [E04.1] INVALID FOR* More... Anxiety State, Unspecified [F41.1] 01/22/2009 Depressive Disorder, not Elsewhere Classified [* More... DM w/o complication type II, uncontrolled [E11.*INVALID FOR* More... Other Malaise and Fatigue [R53.81, R53.83] INVALID FOR*01/22/2009 More... HYPERLIPIDEMIA NEC/NOS [E78.5] INVALID FOR* FIBROMYALGIA [[id number]] INVALID FOR* OVERWEIGHT [E66.9] INVALID FOR* OTHER [...] 03/13/2018 Status: F Source: [place] 10:40 AM [facility] [place] TYPE CODE TESTS RESULT OUT OF [...] Lymph 1.32 Performed By: #### L100.0100 #### [facility] [address] [place], [address] BASIC METABOLIC Collected: 03/13/2018 Status: F Source: [place] PROFILE ([facility]) 10:40 AM [facility] [place] TYPE CODE TESTS RESULT OUT OF [...] 12 Performed By: #### L500.2500, L500.3400 #### [facility] [address] [place], [place], [address] LIVER PROFILE Collected: 03/13/2018 Status: F Source: [place] 10:40 AM [facility] [place] TYPE CODE TESTS RESULT OUT OF [...] 0.07 Performed By: #### L500.2500, L500.3400 #### [facility] [address] [place], [place], [address] PROGRESS Observed: 03/06/2018 Status: COMPLETED Source: [facility] 9:25 AM [facility] REPOSITORY HNO ID: [id number] Author: Clifford Barakat Service: (none) Author Type: [...] stopped after cycle #2. Was seen by reforestation worker at . Biopsy showed myopathy, but etiology [...] specimen was negative for both ER and MN as well as HER- 2. I discussed the case with the pathologist today who told me that histologically/morphologically the specimen was consistent with her previous specimen of breast cancer. The pathologist will issue an addendum quantifying ER and MN 0 as well as HER-2 at 0. [...] poorly differentiated carcinoma. See comment. COMMENT Immunohistochemistry ([id number]) does not rule out a breast primary. There is focal perinodal extension of tumor. Clinical correlation is suggested. ANTIBODY / CLONE RESULT Block 1 Mammaglobin (31A5) negative GATA3 (L50-823) positive, rare, dim CK8 (27aetiT49) positive Ki-67 (30-9) positive, moderate to high ER (6F11) negative 0% MN (1E2) negative 0% CK19 (A53-B/A2.26) positive Cyclin D1/BCL-1 (SP4) positive CEA (11-7/TF-3HB-1) negative SHELLI (E29) positive CK20 (KS20.8) negative Villin (CWWB1) negative RCC (PN-15) negative CA125 (OC125) positive Previous therapy for metastatic disease: 1) Cisplatin (+/- PARP inhibitor on trial). 2) [place]/carbo. She underwent a CT scan of the neck, chest abdomen and pelvis at [facility] on 10/05/2017. The CT of the [...] Came off trial. She was seen at [facility] and did not qualify for the 2 [...] No jaundice or rash. No petechiae. 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 No focal motor [...] and bone scan in about a month. [facility] Observed: 03/06/2018 Status: COMPLETED Source: [facility] 9:10 AM [facility] REPOSITORY Visit (SP) Office ([place]) PEDRO LUIS WILCOX ([id number]) 1970 F Date Time Provider Department 03/06/18 [...] stopped after cycle #2. Was seen by reforestation worker at . Biopsy showed myopathy, but etiology [...] specimen was negative for both ER and MN as well as HER-2. I discussed the case with the pathologist today who told me that histologically/morphologically the specimen was consistent with her previous specimen of breast cancer. The pathologist will issue an addendum quantifying ER and MN 0 as well as HER-2 at 0. [...] poorly differentiated carcinoma. See comment. COMMENT Immunohistochemistry ([id number]) does not rule out a breast primary. There is focal perinodal extension of tumor. Clinical correlation is suggested. ANTIBODY / CLONE RESULT Block 1 Mammaglobin (31A5) negative GATA3 (L50-823) positive, rare, dim CK8 (17gdzaO64) positive Ki-67 (30-9) positive, moderate to high ER (6F11) negative 0% MN (1E2) negative 0% CK19 (A53-B/A2.26) positive Cyclin D1/BCL-1 (SP4) positive CEA (11-7/TF-3HB-1) negative SHELLI (E29) positive CK20 (KS20.8) negative Villin (CWWB1) negative RCC (PN-15) negative CA125 (OC125) positive Previous therapy for metastatic disease: 1) Cisplatin (+/- PARP inhibitor on trial). 2) [place]/carbo. She underwent a CT scan of the neck, chest abdomen and pelvis at [facility] on 10/05/2017. The CT of the [...] Came off trial. She was seen at [facility] and did not qualify for the 2 [...] No jaundice or rash. No petechiae. 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 HYPERLIPIDEMIA NEC/NOS [E78.5] INVALID FOR* FIBROMYALGIA [[id number]] INVALID FOR* Priority: Moderate OVERWEIGHT [E66.9] INVALID [...] FOR* Visit Notes: >> Federica Pimentel LPN TueMar 06, 2018 9:08 AM Status: Signed Est patient. Three week office visit. Federica Pimentel LPN Encounter Status:Closed by CLIFFORD BARAKAT DO on 03/06/18 CBC W/DIFF, AUTOMATED Collected: 02/28/2018 Status: F Source: [place] 7:36 AM [facility] [place] TYPE CODE TESTS RESULT OUT OF [...] Lymph 1.63 Performed By: #### L100.0100 #### [facility] [address] [place], [address] BASIC METABOLIC Collected: 02/28/2018 Status: F Source: [place] PROFILE ([facility]) 7:36 AM [facility] [place] TYPE CODE TESTS RESULT OUT OF [...] 7 Performed By: #### L500.2500, L500.3400 #### [facility] [address] [place], [place], [id number] LIVER PROFILE Collected: 02/28/2018 Status: F Source: [place] 7:36 AM [facility] [place] TYPE CODE TESTS RESULT OUT OF [...] 0.05 Performed By: #### L500.2500, L500.3400 #### [facility] [address] [place], [place], [id number] CBC W/DIFF, AUTOMATED Collected: 02/21/2018 Status: F Source: [place] 7:42 AM [facility] TYPE CODE TESTS RESULT OUT OF [...] Lymph 1.49 Performed By: #### L100.0100 #### [facility] [address] [place], [address] BASIC METABOLIC Collected: 02/21/2018 Status: F Source: [place] [facility] ([facility]) 7:42 AM [facility] TYPE CODE TESTS RESULT OUT OF [...] 9 Performed By: #### L500.2500, L500.3400 #### [facility] [address] [place], [address] LIVER PROFILE Collected: 02/21/2018 Status: F Source: [place] 7:42 AM [facility] [place] TYPE CODE TESTS RESULT OUT OF [...] 0.06 Performed By: #### L500.2500, L500.3400 #### [facility] [address] [facility] 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 Patient denies other needs. 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 Patient denies other needs. F/U APPOINTMENT: ANNAMARIA Nunez As of Date: 02/14/2018 (No Known Allergies) [...] More... HYPERLIPIDEMIA NEC/NOS [E78.5] INVALID FOR* FIBROMYALGIA [[id number]] INVALID FOR* Priority: Moderate OVERWEIGHT [E66.9] INVALID [...] 02/14/18 PROGRESS Observed: 02/13/2018 Status: COMPLETED Source: [facility] 9:36 AM [facility] REPOSITORY [facility] ID: [id number] Author: Clifford Barakat Service: (none) Author Type: [...] stopped after cycle #2. Was seen by reforestation worker at . Biopsy showed myopathy, but etiology [...] specimen was negative for both ER and MN as well as HER- 2. I discussed the case with the pathologist today who told me that histologically/morphologically the specimen was consistent with her previous specimen of breast cancer. The pathologist will issue an addendum quantifying ER and MN 0 as well as HER-2 at 0. [...] poorly differentiated carcinoma. See comment. COMMENT Immunohistochemistry ([id number]) does not rule out a breast primary. There is focal perinodal extension of tumor. Clinical correlation is suggested. ANTIBODY / CLONE RESULT Block 1 Mammaglobin (31A5) negative GATA3 (L50-823) positive, rare, dim CK8 (96zmvjX85) positive Ki-67 (30-9) positive, moderate to high ER (6F11) negative 0% MN (1E2) negative 0% CK19 (A53-B/A2.26) positive Cyclin D1/BCL-1 (SP4) positive CEA (11-7/TF-3HB-1) negative SHELLI (E29) positive CK20 (KS20.8) negative Villin (CWWB1) negative RCC (PN-15) negative CA125 (OC125) positive Previous therapy for metastatic disease: 1) Cisplatin (+/- PARP inhibitor on trial). 2) [place]/carbo. She underwent a CT scan of the neck, chest abdomen and pelvis at [facility] on 10/05/2017. The CT of the [...] Came off trial. She was seen at [facility] and did not qualify for the 2 [...] No jaundice or rash. No petechiae. 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 No focal motor [...] DO CNOVSP Observed: 02/13/2018 Status: COMPLETED Source: [facility] 9:30 AM [facility] REPOSITORY Visit (SP) Office ([place]) PEDRO LUIS WILCOX ([id number]) 1970 F Date Time Provider Department 02/13/18 [...] stopped after cycle #2. Was seen by reforestation worker at . Biopsy showed myopathy, but etiology [...] specimen was negative for both ER and MN as well as HER-2. I discussed the case with the pathologist today who told me that histologically/morphologically the specimen was consistent with her previous specimen of breast cancer. The pathologist will issue an addendum quantifying ER and MN 0 as well as HER-2 at 0. [...] poorly differentiated carcinoma. See comment. COMMENT Immunohistochemistry ([id number]) does not rule out a breast primary. There is focal perinodal extension of tumor. Clinical correlation is suggested. ANTIBODY / CLONE RESULT Block 1 Mammaglobin (31A5) negative GATA3 (L50-823) positive, rare, dim CK8 (60cfntY28) positive Ki-67 (30-9) positive, moderate to high ER (6F11) negative 0% MN (1E2) negative 0% CK19 (A53-B/A2.26) positive Cyclin D1/BCL-1 (SP4) positive CEA (11-7/TF-3HB-1) negative SHELLI (E29) positive CK20 (KS20.8) negative Villin (CWWB1) negative RCC (PN-15) negative CA125 (OC125) positive Previous therapy for metastatic disease: 1) Cisplatin (+/- PARP inhibitor on trial). 2) [place]/carbo. She underwent a CT scan of the neck, chest abdomen and pelvis at [facility] on 10/05/2017. The CT of the [...] Came off trial. She was seen at [facility] and did not qualify for the 2 [...] No jaundice or rash. No petechiae. 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 No focal motor [...] Clifford Barakat DO Referring Provider: CLIFFORD BARAKAT [[id number]] Allergies As of Date: 02/13/2018 (No Known [...] More... HYPERLIPIDEMIA NEC/NOS [E78.5] INVALID FOR* FIBROMYALGIA [[id number]] INVALID FOR* Priority: Moderate OVERWEIGHT [E66.9] INVALID [...] but her schedules have been re-arranged. Orlando Yolande Langston LPN Encounter Status:Closed by CLIFFORD BARAKAT DO on 02/13/18 LOWER EXT NO JOINT Observed: 02/10/2018 Status: F Source: [place] W/WO CONT 9:37 AM [facility] [place] [facility] Imaging Services [address] [place] [address] Lower Ext No Joint W/WO Cont MR#: [id number] Acct: [id number] Name: PEDRO LUIS WILCOX Rep #: [id number] : 1970 F 47 From: Mook Pimentel MD PCP: Jacinto Person MD Status: REG CLI Study: Lower Ext No Joint W/WO Cont Date of Exam: 02/10/18 Exam# [id number] Ordering Dr: Clifford Barakat DO STUDY: MRI [...] CC: Jacinto Person MD; Clifford Barakat DO Storage Battery Charger: Signed CTA CHEST W/WO Observed: 02/07/2018 Status: F Source: [place] CONTRAST 11:42 AM [facility] [place] [facility] Imaging Services [address] [place] [address] CTA Chest W/WO Contrast MR#: [id number] Acct: [id number] Name: PEDRO LUIS WILCXO Rep #: [id number] : 1970 F 47 From: Rylan Schmitz MD PCP: Care Physician, No Primary Status: REG CLI Study: CTA Chest W/WO Contrast Date of Exam: 02/07/18 Exam# [id number] Ordering Dr: Clifford Barakat DO STUDY: CTA [...] No Primary Care Physician; Clifford Barakat DO Storage Battery Charger: Signed PROGRESS Observed: 02/07/2018 Status: COMPLETED Source: [facility] 11:28 AM [facility] REPOSITORY HNO ID: [id number] Author: Clifford Barakat Service: (none) Author Type: [...] stopped after cycle #2. Was seen by reforestation worker at . Biopsy showed myopathy, but etiology [...] specimen was negative for both ER and MN as well as HER- 2. I discussed the case with the pathologist today who told me that histologically/morphologically the specimen was consistent with her previous specimen of breast cancer. The pathologist will issue an addendum quantifying ER and MN 0 as well as HER-2 at 0. [...] poorly differentiated carcinoma. See comment. COMMENT Immunohistochemistry ([id number]) does not rule out a breast primary. There is focal perinodal extension of tumor. Clinical correlation is suggested. ANTIBODY / CLONE RESULT Block 1 Mammaglobin (31A5) negative GATA3 (L50-823) positive, rare, dim CK8 (80ytbhJ65) positive Ki-67 (30-9) positive, moderate to high ER (6F11) negative 0% MN (1E2) negative 0% CK19 (A53-B/A2.26) positive Cyclin D1/BCL-1 (SP4) positive CEA (11-7/TF-3HB-1) negative SHELLI (E29) positive CK20 (KS20.8) negative Villin (CWWB1) negative RCC (PN-15) negative CA125 (OC125) positive Previous therapy for metastatic disease: 1) Cisplatin (+/- PARP inhibitor on trial). She underwent a CT scan of the neck, chest abdomen and pelvis at [facility] on 10/05/2017. The CT of the [...] Came off trial. She was seen at [facility] and did not qualify for the 2 clinical trials available due to her pre-existing diabetic neuropathy and history of type 1 diabetes. Current therapy: 1) [place]/carbo. Interim history: She started developing sharp pleuritic [...] No jaundice or rash. No petechiae. 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 No focal motor [...] for a stat CT chest today at [facility]. -If negative she may proceed with chemotherapy. Clifford Barakat DO CNOVSP Observed: 02/07/2018 Status: COMPLETED Source: [facility] 8:50 AM [facility] REPOSITORY Visit (SP) Office ([place]) PEDRO LUIS WILCOX ([id number]) 1970 F Date Time Provider Department 02/07/18 [...] stopped after cycle #2. Was seen by reforestation worker at . Biopsy showed myopathy, but etiology [...] specimen was negative for both ER and MN as well as HER-2. I discussed the case with the pathologist today who told me that histologically/morphologically the specimen was consistent with her previous specimen of breast cancer. The pathologist will issue an addendum quantifying ER and MN 0 as well as HER-2 at 0. [...] poorly differentiated carcinoma. See comment. COMMENT Immunohistochemistry ([id number]) does not rule out a breast primary. There is focal perinodal extension of tumor. Clinical correlation is suggested. ANTIBODY / CLONE RESULT Block 1 Mammaglobin (31A5) negative GATA3 (L50-823) positive, rare, dim CK8 (06dtyuY01) positive Ki-67 (30-9) positive, moderate to high ER (6F11) negative 0% MN (1E2) negative 0% CK19 (A53-B/A2.26) positive Cyclin D1/BCL-1 (SP4) positive CEA (11-7/TF-3HB-1) negative SHELLI (E29) positive CK20 (KS20.8) negative Villin (CWWB1) negative RCC (PN-15) negative CA125 (OC125) positive Previous therapy for metastatic disease: 1) Cisplatin (+/- PARP inhibitor on trial). She underwent a CT scan of the neck, chest abdomen and pelvis at [facility] on 10/05/2017. The CT of the [...] Came off trial. She was seen at [facility] and did not qualify for the 2 clinical trials available due to her pre-existing diabetic neuropathy and history of type 1 diabetes. Current therapy: 1) [place]/carbo. Interim history: She started developing sharp pleuritic [...] No jaundice or rash. No petechiae. 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 No focal motor [...] for a stat CT chest today at [facility]. -If negative she may proceed with chemotherapy. Clifford Barakat DO Referring Provider: CLIFFORD BARAKAT [[id number]] Allergies As of Date: 02/07/2018 (No Known Allergies) Date Reviewed: 02/07/2018 Reviewed by: Federica Pimentel LPN - Fully Assessed Reason for Visit: Acute Visit [896] Primary Visit Diagnosis:Malignant neoplasm of upper-outer quadrant of right breast in female, estrogen receptor negative (HCC) [C50.411, Z17.1] Other Visit Diagnoses:Bone metastases (HCC) [C79.51] Pleuritic chest pain [R07.81] Order(s):CT CHEST W IVCON PE [[id number]] Order #: [id number] FUTURE iv contrast (will be provided with [...] More... HYPERLIPIDEMIA NEC/NOS [E78.5] INVALID FOR* FIBROMYALGIA [DNT6609] INVALID FOR* Priority: Moderate OVERWEIGHT [E66.9] INVALID [...] FOR* Visit Notes: >> Federica Pimentel LPN Tue Feb 07, 2018 10:58 AM Status: Signed C/O pain behind right breast which is radiating to back, started last night. Rates at a 9 , worse when she takes a deep breath or lies down. Denies SOB. Federica Pimentel LPN Encounter Status:Closed by CLIFFORD BARAKAT DO on 02/07/18 BASIC METABOLIC Collected: 02/06/2018 Status: F Source: [place] PROFILE ([place]) 2:47 PM [facility] [place] TYPE CODE TESTS RESULT OUT OF [...] 10 Performed By: #### L500.2500, L500.3400 #### [facility] [address] [place], [place], [address] LIVER PROFILE Collected: 02/06/2018 Status: F Source: [place] 2:47 PM [facility] [place] [facility] TYPE CODE TESTS RESULT OUT OF [...] 0.05 Performed By: #### L500.2500, L500.3400 #### [facility] [address] [place], [place], [address] CBC W/DIFF, AUTOMATED Collected: 02/06/2018 Status: F Source: [place] 2:47 PM [facility] [place] [facility] TYPE CODE TESTS RESULT OUT OF [...] Lymph 2.34 Performed By: #### L100.0100 #### [facility] [address] [place] [address]. [place], [place], [address] PROGRESS Observed: 01/31/2018 Status: COMPLETED Source: [facility] 2:18 PM [facility] REPOSITORY O ID: [id number] Author: Isha Servin (Sw) Service: (none) Author Type: Aircraft Painter Type: Progress Notes Filed: 01/31/2018 2:25 PM Note Text: Social Work Problem Referral Note INFORMATION/REFERRAL : Pedro Luis Wilcox 47 year old female was referred by [facility] Social Work for the following reason(s): disability planning PERSONS INTERVIEWED: patient INTERVENTION: Information AND Referral Service Co-ordination Affect/Mood: The patient is noted as expressing worry IDENTIFIED PROBLEMS/NEEDS: Continue to assess/collaborate Disability Intervention/Referral to be provided:Arrangements made for continuity of care Information for community resources/agencies IMPRESSION/PLAN: SW met with patient so she could picking supervisor the disability paperwork to send in. Patient [...] 01/31/2018 Status: F Source: [place] 8:51 AM [facility] [place] TYPE CODE TESTS RESULT OUT OF [...] Lymph 1.43 Performed By: #### L100.0100 #### [facility] [address] [facility] [place], [place], [address] BASIC METABOLIC Collected: 01/31/2018 Status: F Source: [place] PROFILE ([place]) 8:51 AM [facility] [place] TYPE CODE TESTS RESULT OUT OF [...] 9 Performed By: #### L500.2500, L500.3400 #### [facility] [address] [facility] [place], [address] LIVER PROFILE Collected: 01/31/2018 Status: F Source: [place] 8:51 AM [facility] [place] [facility] TYPE CODE TESTS RESULT OUT OF [...] 0.09 Performed By: #### L500.2500, L500.3400 #### [facility] [address] [place], [address] CNSW Observed: 01/31/2018 Status: COMPLETED Source: [place] 12:00 AM [facility] REPOSITORY Social Work (DANYEL) PEDRO LUIS WILCOX ([id number]) 1970 F Date Time Provider Department 01/31/18 ISHA SERVIN (SW) During your visit today, we recorded the following information about you: ANNAMARIA Schroeder 01/31/2018 2:25 PM Signed Social Work Problem Referral Note INFORMATION/REFERRAL : Pedro Luis Wilcox 47 year old female was referred by [facility] Social Work for the following reason(s): disability planning PERSONS INTERVIEWED: patient INTERVENTION: Information AND Referral Service Co-ordination Affect/Mood: The patient is noted as expressing worry IDENTIFIED PROBLEMS/NEEDS: Continue to assess/collaborate Disability Intervention/Referral to be provided:Arrangements made for continuity of care Information for community resources/agencies IMPRESSION/PLAN: SW met with patient so she could picking supervisor the disability paperwork to send in. Patient [...] More... HYPERLIPIDEMIA NEC/NOS [E78.5] INVALID FOR* FIBROMYALGIA [[id number]] INVALID FOR* Priority: Moderate OVERWEIGHT [E66.9] INVALID [...] 01/31/18 PROGRESS Observed: 01/30/2018 Status: COMPLETED Source: [facility] 5:02 PM [facility] REPOSITORY [facility] ID: [id number] Author: Isha (Hilario) Jameson Service: (none) Author Type: Aircraft Painter Type: Progress Notes Filed: 01/30/2018 5:03 PM Note Text: Social Work Problem Referral Note INFORMATION/REFERRAL : Pedro Luis Wilcox 47 year old female was referred by [facility] Social Work for the following reason(s): [...] Nunez CNSW Observed: 01/30/2018 Status: COMPLETED Source: [facility] 12:00 AM [facility] REPOSITORY Social Work (HEMA[place]) PEDRO LUIS WILCOX ([id number]) 1970 F Date Time Provider Department 01/30/18 ISHA SERVIN (HILARIO) DANYEL During your visit today, we recorded the following information about you: ANNAMARIA Schroeder 01/30/2018 5:03 PM Signed Social Work Problem Referral Note INFORMATION/REFERRAL : Pedro Luis Wilcox 47 year old female was referred by [facility] Social Work for the following reason(s): disability planning PERSONS INTERVIEWED: patient and physician - Dr. Barakat INTERVENTION: Phone Contact and Team Meeting Affect/Mood: The patient is noted as appropriate IDENTIFIED PROBLEMS/NEEDS: Disability Intervention/Referral to be provided:Arrangements made for continuity of care IMPRESSION/PLAN: SW received disability paperwork from patient on January 27. SW completed and had doctor review/sign. HILARIO called patient to inform her this was [...] More... HYPERLIPIDEMIA NEC/NOS [E78.5] INVALID FOR* FIBROMYALGIA [[id number]] INVALID FOR* Priority: Moderate OVERWEIGHT [E66.9] INVALID [...] 2 VIEWS Observed: 01/24/2018 Status: F Source: [place] 10:09 AM [facility] [place] [facility] Imaging Services [address] [place] [address] Femur Min 2 Views MR#: [id number] Acct: [id number] Name: MARKLANEYPATTI Williamson Rep #: [id number] : 1970 F 47 From: Ruperto Sahu MD PCP: Jacinto Person MD Status: REG CLI Study: Femur Min 2 Views Date of Exam: 01/24/18 Exam# [id number] Ordering Dr: Clifford Barakat DO STUDY: X-RAY [...] CC: Jacinto Person MD; Clifford Barakat DO Storage Battery Charger: Signed PROGRESS Observed: 01/23/2018 Status: COMPLETED Source: [facility] 9:46 AM [facility] REPOSITORY HNO ID: [id number] Author: Clifford Barakat Service: (none) Author Type: [...] stopped after cycle #2. Was seen by reforestation worker at . Biopsy showed myopathy, but etiology [...] specimen was negative for both ER and MN as well as HER- 2. I discussed the case with the pathologist today who told me that histologically/morphologically the specimen was consistent with her previous specimen of breast cancer. The pathologist will issue an addendum quantifying ER and MN 0 as well as HER-2 at 0. [...] poorly differentiated carcinoma. See comment. COMMENT Immunohistochemistry ([id number]) does not rule out a breast primary. There is focal perinodal extension of tumor. Clinical correlation is suggested. ANTIBODY / CLONE RESULT Block 1 Mammaglobin (31A5) negative GATA3 (L50-823) positive, rare, dim CK8 (05peutF28) positive Ki-67 (30-9) positive, moderate to high ER (6F11) negative 0% MN (1E2) negative 0% CK19 (A53-B/A2.26) positive Cyclin D1/BCL-1 (SP4) positive CEA (11-7/TF-3HB-1) negative SHELLI (E29) positive CK20 (KS20.8) negative Villin (CWWB1) negative RCC (PN-15) negative CA125 (OC125) positive Previous therapy for metastatic disease: 1) Cisplatin (+/- PARP inhibitor on trial). She underwent a CT scan of the neck, chest abdomen and pelvis at [facility] on 10/05/2017. The CT of the [...] Came off trial. She was seen at [facility] and did not qualify for the 2 clinical trials available due to her pre-existing diabetic neuropathy and history of type 1 diabetes. Current therapy: 1) Leaven[place]/carbo. Interim history: Her first 2 cycles of [...] Recently she had a friend and fellow christian member who of metastatic cervical cancer at [...] No jaundice or rash. No petechiae. 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 No focal motor weakness. MUSCULOSKELETAL: No muscle wasting. ASSESSMENT/PLAN: 1) pT1c (1.6 cm; grade 3; no AL invasion) pN0(sn) MX ER/MN negative HER2 non-amplified invasive ductal carcinoma of [...] DO CNOVSP Observed: 01/23/2018 Status: COMPLETED Source: [facility] 9:30 AM [facility] REPOSITORY Visit (SP) Office (DANYEL) PEDRO LUIS WILCOX ([id number]) 1970 F Date Time Provider Department 01/23/18 9:30 AM CLIFFORD BARAKAT During your visit today, we recorded the following information about you: Temperature Pulse Blood pressure Weight 98.6 degrees 104/minute 117/67 87.3 kg Federica Pimentel LPN 01/23/2018 9:56 AM Signed Est patient. Labs today @ [facility] 0900, treatment tomorrow. Federica Barakat DO 01/27/2018 [...] stopped after cycle #2. Was seen by reforestation worker at . Biopsy showed myopathy, but etiology [...] specimen was negative for both ER and MN as well as HER-2. I discussed the case with the pathologist today who told me that histologically/morphologically the specimen was consistent with her previous specimen of breast cancer. The pathologist will issue an addendum quantifying ER and MN 0 as well as HER-2 at 0. [...] poorly differentiated carcinoma. See comment. COMMENT Immunohistochemistry ([id number]) does not rule out a breast primary. There is focal perinodal extension of tumor. Clinical correlation is suggested. ANTIBODY / CLONE RESULT Block 1 Mammaglobin (31A5) negative GATA3 (L50-823) positive, rare, dim CK8 (17dxkmQ16) positive Ki-67 (30-9) positive, moderate to high ER (6F11) negative 0% MN (1E2) negative 0% CK19 (A53-B/A2.26) positive Cyclin D1/BCL-1 (SP4) positive CEA (11-7/TF-3HB-1) negative SHELLI (E29) positive CK20 (KS20.8) negative Villin (CWWB1) negative RCC (PN-15) negative CA125 (OC125) positive Previous therapy for metastatic disease: 1) Cisplatin (+/- PARP inhibitor on trial). She underwent a CT scan of the neck, chest abdomen and pelvis at [facility] on 10/05/2017. The CT of the [...] Came off trial. She was seen at [facility] and did not qualify for the 2 clinical trials available due to her pre-existing diabetic neuropathy and history of type 1 diabetes. Current therapy: 1) Leaven[place]/carbo. Interim history: Her first 2 cycles of [...] Recently she had a friend and fellow christian member who of metastatic cervical cancer at [...] No jaundice or rash. No petechiae. 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 No focal motor weakness. MUSCULOSKELETAL: No muscle wasting. ASSESSMENT/PLAN: 1) pT1c (1.6 cm; grade 3; no AL invasion) pN0(sn) MX ER/MN negative HER2 non-amplified invasive ductal carcinoma of [...] Clifford Barakat DO Referring Provider: CLIFFORD BARAKAT [[id number]] Allergies As of Date: 01/23/2018 (No Known [...] [R93.6] Order(s):XR FEMUR GENERAL 2V AP/LAT LT [[id number]] Order #: [id number] FUTURE MRI UPPER LEG WO/W IVCON LT [[id number]] Order #: [id number] FUTURE [] iv contrast (will be provided [...] More... HYPERLIPIDEMIA NEC/NOS [E78.5] INVALID FOR* FIBROMYALGIA [[id number]] INVALID FOR* Priority: Moderate OVERWEIGHT [E66.9] INVALID [...] Status: Signed Est patient. Labs today @ [facility] 0900, treatment tomorrow. Federica Pimentel LPN Encounter Status:Closed by CLIFFORD BARAKAT DO on 01/23/18 CBC W/DIFF, AUTOMATED Collected: 01/23/2018 Status: F Source: [place] 8:55 AM [facility] TYPE CODE TESTS RESULT OUT OF [...] Lymph 1.35 Performed By: #### L100.0100 #### [facility] [address] [place], [address] BASIC METABOLIC Collected: 01/23/2018 Status: F Source: [place] PROFILE (BMP) 8:55 AM [facility] [facility] TYPE CODE TESTS RESULT OUT OF [...] 8 Performed By: #### L500.2500, L500.3400 #### [facility] [address] [place], [address] LIVER PROFILE Collected: 01/23/2018 Status: F Source: [place] 8:55 AM [facility] TYPE CODE TESTS RESULT OUT OF [...] 0.08 Performed By: #### L500.2500, L500.3400 #### [facility] [address] [place], [address] BONE SCAN WHOLE Observed: 01/20/2018 Status: F Source: [place] 9:45 AM [facility] [place] [facility] Imaging Services [address] [place] [address] Bone Scan Whole Body MR#: [id number] Acct: [id number] Name: PEDRO LUIS WILCOX Rep #: [id number] : 1970 F 47 From: Clay Real DO PCP: Jacinto Person MD Status: REG CLI Study: Bone Scan Whole Body Date of Exam: 01/20/18 Exam# [id number] Ordering Dr: Clifford Barakat DO CLINICAL: 47-year-old [...] CC: Jacinto Person MD; Clifford Barakat DO Storage Battery Charger: Signed ABDOMEN/PELVIS WITH Observed: 01/17/2018 Status: F Source: [place] CONTRAST 2:55 PM [facility] [place] [facility] Imaging Services [address] [place] [address] Abdomen/Pelvis WITH Contrast MR#: [id number] Acct: [id number] Name: PEDRO LUIS WILCOX Rep #: [id number] : 1970 F 47 From: Diomedes Villagran MD PCP: Jacinto Person MD Status: REG CLI Study: Abdomen/Pelvis WITH Contrast Date of Exam: 01/17/18 Exam# [id number] Ordering Dr: Clifford Barakat DO STUDY: CT [...] CC: Jacinto Person MD; Clifford Barakat DO Storage Battery Charger: Signed CHEST WITH CONTRAST Observed: 01/17/2018 Status: F Source: [place] 2:55 PM [facility] [place] [facility] Imaging Services [address] [place] [address] Chest WITH Contrast MR#: [id number] Acct: [id number] Name: PEDRO LUIS WILCOX Rep #: [id number] : 1970 F 47 From: Lindsay Escobedo MD PCP: Jacinto Person MD Status: REG CLI Study: Chest WITH Contrast Date of Exam: 01/17/18 Exam# [id number] Ordering Dr: Clifford Barakat DO STUDY: CT [...] CC: Jacinto Person MD; Clifford Barakat DO Storage Battery Charger: Signed CNOVSP Observed: 01/03/2018 Status: COMPLETED Source: [facility] 8:30 AM [facility] REPOSITORY Visit (SP) Office (DANYEL) PEDRO LUIS WILCOX ([id number]) 1970 F Date Time Provider Department 01/03/18 8:30 AM ASIA REYES CNP During your visit today, we recorded the following information about you: Temperature Pulse Blood pressure Weight 98.2 degrees 104/minute 148/71 88 kg Asia Reyes APRN.SALVADOR 01/04/2018 8:36 AM Signed Chief Complaint Patient presents with: Established Patient HPI: Pedro Luis Wilcox is a 47 year old female who presents here today for evaluation for chemotherapy at [facility] today. Per Dr. Barakat's previous note: H/o [...] after cycle #2. ? Was seen by reforestation worker at . Biopsy showed myopathy, but etiology [...] specimen was negative for both ER and MN as well as HER-2. I discussed the case with the pathologist today who told me that histologically/morphologically the specimen was consistent with her previous specimen of breast cancer. The pathologist will issue an addendum quantifying ER and MN 0 as well as HER-2 at 0. [...] poorly differentiated carcinoma. See comment. COMMENT Immunohistochemistry ([id number]) does not rule out a breast primary. There is focal perinodal extension of tumor. Clinical correlation is suggested. ? ANTIBODY / CLONE RESULT Block 1 Mammaglobin (31A5) negative GATA3 (L50-823) positive, rare, dim CK8 (67edtjK67) positive Ki-67 (30-9) positive, moderate to high ER (6F11) negative 0% MN (1E2) negative 0% CK19 (A53-B/A2.26) positive Cyclin D1/BCL-1 (SP4) positive CEA (11-7/TF-3HB-1) negative SHELLI (E29) positive CK20 (KS20.8) negative Villin (CWWB1) negative RCC (PN-15) negative CA125 (OC125) positive ? Previous therapy for metastatic disease: 1) Cisplatin (+/- PARP inhibitor on trial). ? She underwent a CT scan of the neck, chest abdomen and pelvis at [facility] on 10/05/2017. The CT of the [...] off trial. ? She was seen at [facility] and did not qualify for the 2 clinical trials available due to her pre-existing diabetic neuropathy and history of type 1 diabetes. ? Current therapy: 1) Leavenworth/carbo. I'm ok. I was able to go [...] suspicious rashes or lesions LABS: Done at [facility] Reviewed. ASSESSMENT/PLAN: 1. 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 Comprehensive BRCA 1 and 2 testing (scanned 12/05/2013) no mutation Complicated by severe myositis during adjuvant chemotherapy. KPS is 90%. Biopsy-proven local regional recurrence. 2. Malignant neoplasm metastatic to left lung (HCC) - ICD9: 197.0, ICD10: C78.02 - Overall tolerating gemzar/carbo well. - Reviewed labs done at [facility]. - Rx phenergan. Pt. aware to not take with reglan. - Proceed as scheduled today at [facility] for treatment. - CT chest/abd/pelvis/bone scan (to be done at [facility]) after this cycle at [facility]. - Follow up in [address] Barakat to review scans (prior to next cycle) with CBC/CMP (done at [facility]). - Pt. aware to call office with any questions/concerns. The patient indicates understanding of these issues and agrees with the plan. Discussed case with Dr. Barakat who agrees with treatment plan. Asia Reyes APRN.SALVADOR Langston LPN, TIFFANIE 01/03/2018 8:55 AM Signed Est pt, discuss recent lab results. Chemo @ [facility] today Orlando Langston LPN Referring Provider: CLIFFORD BARAKAT [[id number]] Allergies As of Date: 01/03/2018 (No Known Allergies) Date Reviewed: 01/03/2018 Reviewed by: Asia (Rn Clinical Trials) Eric - Fully Assessed Reason for Visit: [...] 20 tabletRfl: 2 CT ABD/PEL W IVCON [[id number]] Order #: [id number] FUTURE CT CHEST W IVCON [[id number]] Order #: [id number] FUTURE iv contrast (will be provided with [...] 1 EachRfl: 0 NM BONE WHOLE BODY [[id number]] Order #: [id number] FUTURE Follow-up and Disposition History Recorded Prescriptions [...] LPN 01/03/2018 8:30 AM >> ORLANDO LANGSTON fozia Jan 03, 2018 8:30 AM PRN Problem List As Of Date 01/03/2018 Noted Resolved THYROID NODULE [E04.1] INVALID FOR* More... Anxiety State, Unspecified [F41.1] 01/22/2009 Depressive Disorder, not Elsewhere Classified [* Priority: Moderate More... DM w/o complication type II, uncontrolled [E11.*INVALID FOR* Priority: Severe More... Other Malaise and Fatigue [R53.81, R53.83] INVALID FOR*01/22/2009 More... HYPERLIPIDEMIA NEC/NOS [E78.5] INVALID FOR* FIBROMYALGIA [[id number]] INVALID FOR* Priority: Moderate OVERWEIGHT [E66.9] INVALID [...] pt, discuss recent lab results. Chemo @ [facility] today Orlando Langston LPN Encounter Status:Closed by ASIA REYES CNP on 01/04/18 PROGRESS Observed: 01/03/2018 Status: COMPLETED Source: [facility] 8:29 AM [facility] [place] REPOSITORY HNO ID: [id number] Author: Asia Reyes Service: (none) Author Type: Nurse Practitioner Type: Progress Notes Filed: 01/04/2018 8:36 AM Note Text: Chief Complaint Patient presents with: Established Patient HPI: Pedro Luis Wilcox is a 47 year old female who presents here today for evaluation for chemotherapy at [facility] today. Per Dr. Barakat's previous note: H/o [...] after cycle #2. ? Was seen by reforestation worker at . Biopsy showed myopathy, but etiology [...] specimen was negative for both ER and MN as well as HER- 2. I discussed the case with the pathologist today who told me that histologically/morphologically the specimen was consistent with her previous specimen of breast cancer. The pathologist will issue an addendum quantifying ER and MN 0 as well as HER-2 at 0. [...] poorly differentiated carcinoma. See comment. COMMENT Immunohistochemistry ([id number]) does not rule out a breast primary. There is focal perinodal extension of tumor. Clinical correlation is suggested. ? ANTIBODY / CLONE RESULT Block 1 Mammaglobin (31A5) negative GATA3 (L50-823) positive, rare, dim CK8 (65qzyiH04) positive Ki-67 (30-9) positive, moderate to high ER (6F11) negative 0% MN (1E2) negative 0% CK19 (A53-B/A2.26) positive Cyclin D1/BCL-1 (SP4) positive CEA (11-7/TF-3HB-1) negative SHELLI (E29) positive CK20 (KS20.8) negative Villin (CWWB1) negative RCC (PN-15) negative CA125 (OC125) positive ? Previous therapy for metastatic disease: 1) Cisplatin (+/- PARP inhibitor on trial). ? She underwent a CT scan of the neck, chest abdomen and pelvis at [facility] on 10/05/2017. The CT of the [...] off trial. ? She was seen at [facility] and did not qualify for the 2 clinical trials available due to her pre-existing diabetic neuropathy and history of type 1 diabetes. ? Current therapy: 1) Leaven[place]/carbo. I'm ok. I was able to go [...] suspicious rashes or lesions LABS: Done at [facility] Reviewed. ASSESSMENT/PLAN: 1. 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 Comprehensive BRCA 1 and 2 testing (scanned 12/05/2013) no mutation Complicated by severe myositis during adjuvant chemotherapy. KPS is 90%. Biopsy-proven local regional recurrence. 2. Malignant neoplasm metastatic to left lung (HCC) - ICD9: 197.0, ICD10: C78.02 - Overall tolerating gemzar/carbo well. - Reviewed labs done at [facility]. - Rx phenergan. Pt. aware to not take with reglan. - Proceed as scheduled today at [facility] for treatment. - CT chest/abd/pelvis/bone scan (to be done at [facility]) after this cycle at [facility]. - Follow up in [address] Barakat to review scans (prior to next cycle) with CBC/CMP (done at [facility]). - Pt. aware to call office with any questions/concerns. The patient indicates understanding of these issues and agrees with the plan. Discussed case with Dr. Barakat who agrees with treatment plan. Asia Reyes APRN.MACHINERY MECHANIC CBC W/DIFF, AUTOMATED Collected: 01/03/2018 Status: F Source: [place] 6:13 AM [facility] [place] [facility] TYPE CODE TESTS RESULT OUT OF [...] Lymph 1.63 Performed By: #### L100.0100 #### [facility] [address] [place], [address] BASIC METABOLIC Collected: 01/03/2018 Status: F Source: [place] PRO[facility] ([facility]) 6:13 AM [facility] TYPE CODE TESTS RESULT OUT OF [...] 10 Performed By: #### L500.2500, L500.3400 #### [facility] [address] [place], [place], [address] LIVER PROFILE Collected: 01/03/2018 Status: F Source: [place] 6:13 AM [facility] TYPE CODE TESTS RESULT OUT OF [...] 0.06 Performed By: #### L500.2500, L500.3400 #### [facility] [address] [place] [address], [address] CBC W/DIFF, AUTOMATED Collected: 12/20/2017 Status: F Source: [place] 6:26 AM [facility] [facility] TYPE CODE TESTS RESULT OUT OF [...] Lymph 2.23 Performed By: #### L100.0100 #### [facility] [address] [place], [address] BASIC METABOLIC Collected: 12/20/2017 Status: F Source: [place] PROFILE ([facility]) 6:26 AM [facility] TYPE CODE TESTS RESULT OUT OF [...] 10 Performed By: #### L500.2500, L500.3400 #### [facility] [address] [place], [place], [address] LIVER PROFILE Collected: 12/20/2017 Status: F Source: [place] 6:26 AM [facility] [place] [facility] TYPE CODE TESTS RESULT OUT OF [...] 0.05 Performed By: #### L500.2500, L500.3400 #### [facility] [address] [place] [place], [address] CNOVSP Observed: 12/12/2017 Status: COMPLETED Source: [facility] 3:50 PM [facility] REPOSITORY Visit (SP) Office ([place]) PEDRO LUIS WILCOX ([id number]) 1970 F Date Time Provider Department 12/12/17 3:50 PM CLIFFORD BARAKAT During your visit today, we recorded the following information about you: Temperature Pulse Blood pressure Weight 99.2 degrees 104/minute 150/67 89.8 kg Federica Leyla MORENO 12/12/2017 3:50 PM Signed Est patient. Discuss recent labs and treatment tomorrow. Federica Pimentel LPN Clifford Barakat DO 12/12/2017 4:02 PM Signed Diagnosis: 1) Breast [...] stopped after cycle #2. Was seen by reforestation worker at . Biopsy showed myopathy, but etiology [...] specimen was negative for both ER and MN as well as HER-2. I discussed the case with the pathologist today who told me that histologically/morphologically the specimen was consistent with her previous specimen of breast cancer. The pathologist will issue an addendum quantifying ER and MN 0 as well as HER-2 at 0. [...] poorly differentiated carcinoma. See comment. COMMENT Immunohistochemistry ([id number]) does not rule out a breast primary. There is focal perinodal extension of tumor. Clinical correlation is suggested. ANTIBODY / CLONE RESULT Block 1 Mammaglobin (31A5) negative GATA3 (L50-823) positive, rare, dim CK8 (02tqcoO37) positive Ki-67 (30-9) positive, moderate to high ER (6F11) negative 0% MN (1E2) negative 0% CK19 (A53-B/A2.26) positive Cyclin D1/BCL-1 (SP4) positive CEA (11-7/TF-3HB-1) negative SHELLI (E29) positive CK20 (KS20.8) negative Villin (CWWB1) negative RCC (PN-15) negative CA125 (OC125) positive Previous therapy for metastatic disease: 1) Cisplatin (+/- PARP inhibitor on trial). She underwent a CT scan of the neck, chest abdomen and pelvis at [facility] on 10/05/2017. The CT of the [...] Came off trial. She was seen at [facility] and did not qualify for the 2 clinical trials available due to her pre-existing diabetic neuropathy and history of type 1 diabetes. Current therapy: 1) Leaven[place]/carbo. Interim history: She is completed 2 cycles [...] No jaundice or rash. No petechiae. 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 No focal motor weakness. MUSCULOSKELETAL: No muscle wasting. ASSESSMENT/PLAN: 1) pT1c (1.6 cm; grade 3; no AL invasion) pN0(sn) MX ER/MN negative HER2 non-amplified invasive ductal carcinoma of the right breast. Comprehensive BRCA 1 and 2 testing (scanned 12/05/2013) no mutation Complicated by severe myositis during adjuvant chemotherapy. -KPS is 90%. -Biopsy-proven local regional recurrence. -Sensory neuropathy stable. -I personally reviewed the CT scan images of the neck, chest, abdomen and pelvis done at [facility] on 12/08/2016. There is a barely [...] Clifford Barakat DO Referring Provider: CLIFFORD BARAKAT [[id number]] Allergies As of Date: 12/12/2017 (No Known [...] More... HYPERLIPIDEMIA NEC/NOS [E78.5] INVALID FOR* FIBROMYALGIA [[id number]] INVALID FOR* Priority: Moderate OVERWEIGHT [E66.9] INVALID [...] [Z*INVALID FOR* Visit Notes: >> Federica Pimentel SR. MANAGER MARKETING Mon Dec 12, 2017 3:41 PM Status: Signed Est patient. Discuss recent labs and treatment tomorrow. Federica Pimentel TIFFANIE Encounter Status:Closed by CLIFFORD BARAKAT DO on 12/12/17 PROGRESS Observed: 12/12/2017 Status: COMPLETED Source: [facility] 3:41 PM [facility] REPOSIT[facility] HNO ID: [id number] Author: Clifford Barakat Service: (none) Author Type: [...] stopped after cycle #2. Was seen by reforestation worker at . Biopsy showed myopathy, but etiology [...] specimen was negative for both ER and MN as well as HER- 2. I discussed the case with the pathologist today who told me that histologically/morphologically the specimen was consistent with her previous specimen of breast cancer. The pathologist will issue an addendum quantifying ER and MN 0 as well as HER-2 at 0. [...] poorly differentiated carcinoma. See comment. COMMENT Immunohistochemistry ([id number]) does not rule out a breast primary. There is focal perinodal extension of tumor. Clinical correlation is suggested. ANTIBODY / CLONE RESULT Block 1 Mammaglobin (31A5) negative GATA3 (L50-823) positive, rare, dim CK8 (33bpodN34) positive Ki-67 (30-9) positive, moderate to high ER (6F11) negative 0% MN (1E2) negative 0% CK19 (A53-B/A2.26) positive Cyclin D1/BCL-1 (SP4) positive CEA (11-7/TF-3HB-1) negative SHELLI (E29) positive CK20 (KS20.8) negative Villin (CWWB1) negative RCC (PN-15) negative CA125 (OC125) positive Previous therapy for metastatic disease: 1) Cisplatin (+/- PARP inhibitor on trial). She underwent a CT scan of the neck, chest abdomen and pelvis at [facility] on 10/05/2017. The CT of the [...] Came off trial. She was seen at [facility] and did not qualify for the 2 clinical trials available due to her pre-existing diabetic neuropathy and history of type 1 diabetes. Current therapy: 1) Leavenworth/carbo. Interim history: She is completed 2 cycles [...] No jaundice or rash. No petechiae. 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 No focal motor weakness. MUSCULOSKELETAL: No muscle wasting. ASSESSMENT/PLAN: 1) pT1c (1.6 cm; grade 3; no AL invasion) pN0(sn) MX ER/MN negative HER2 non-amplified invasive ductal carcinoma of the right breast. Comprehensive BRCA 1 and 2 testing (scanned 12/05/2013) no mutation Complicated by severe myositis during adjuvant chemotherapy. -KPS is 90%. -Biopsy-proven local regional recurrence. -Sensory neuropathy stable. -I personally reviewed the CT scan images of the neck, chest, abdomen and pelvis done at [facility] on 12/08/2016. There is a barely [...] W/DIFF, AUTOMATED Collected: 12/09/2017 Status: F Source: [place] 11:18 AM [facility] [place] [facility] TYPE CODE TESTS RESULT OUT OF [...] Lymph 1.43 Performed By: #### L100.0100 #### [facility] [address] [place], [address] BASIC METABOLIC Collected: 12/09/2017 Status: F Source: [place] [facility] ([facility]) 11:18 AM [facility] [place] [facility] TYPE CODE TESTS RESULT OUT OF [...] 9 Performed By: #### L500.2500, L500.3400 #### [facility] [address] [place], [place], [id number] LIVER PROFILE Collected: 12/09/2017 Status: F Source: [place] 11:18 AM [facility] [place] [facility] TYPE CODE TESTS RESULT OUT OF [...] 0.06 Performed By: #### L500.2500, L500.3400 #### [facility] [address] [place], [place], [id number] URINALYSIS, EMPLOYEE Collected: 12/09/2017 Status: F Source: [place] 9:45 AM [facility] [place] [facility] TYPE CODE TESTS RESULT OUT OF [...] 25 ESTERASE Performed By: #### L400.0100 #### [facility] [address] [place], [place], [address] CBC W/DIFF, AUTOMATED Collected: 12/09/2017 Status: F Source: [place] 9:45 AM [facility] [place] [facility] TYPE CODE TESTS RESULT OUT OF [...] 1.43 Performed By: #### L100.0100, L100.0200 #### [facility] [address] [facility] [place], [place], [id number] CBC, EMPLOYEE Collected: 12/09/2017 Status: F Source: [place] 9:45 AM [facility] [place] [facility] TYPE CODE TESTS RESULT OUT OF RANGE REFERENCE UNITS LAB L100.2110 47-70 % Normal NEUT% 59.4 LAB L100.2210 19-41 % Normal LY% 28.6 LAB L100.2310 0-10 % High MONO% 11.0 LAB L100.2410 0-5 % Normal EO% 0.4 LAB L100.2510 0-1 % Normal BASO% 0.2 Performed By: #### L100.0100, L100.0200 #### [facility] [address] [facility] [place], [place], [address] NICOTINE URINE DRUG Collected: 12/09/2017 Status: F Source: [place] SCREEN 9:45 AM [facility] [place] [facility] TYPE CODE TESTS RESULT OUT OF [...] of Nicotine. Performed By: #### L505.6240 #### [facility] [address] [place], [address] EMPLOYEE PROFILE Collected: 12/09/2017 Status: F Source: [place] 9:45 AM [facility] [place] [facility] Order Comment: SEND REULTS TO ALSO [...] LDH 225 Performed By: #### L500.2900 #### [facility] [address] [place], [place], [address] CHEST WITH CONTRAST Observed: 12/08/2017 Status: F Source: [place] 10:34 AM [facility] [place] [facility] Imaging Services [address] [place] [address] Chest WITH Contrast MR#: [id number] Acct: [id number] Name: PEDRO LUIS WILCOX Rep #: [id number] : 1970 F 47 From: Darryl Ford MD PCP: Jacinto Person MD Status: REG CLI Study: Chest WITH Contrast Date of Exam: 12/08/17 Exam# [id number] Ordering Dr: Clifford Barakat DO STUDY: CT [...] Darryl Ford MD at 15:23 EDT Tel [phone], Service support , CC: Jacinto Person MD; Clifford Barakat DO Storage Battery Charger: Signed ABDOMEN/PELVIS WITH Observed: 12/08/2017 Status: F Source: [place] CONTRAST 10:34 AM [facility] [place] [facility] Imaging Services [address] [facility] [place] [place] [address] Abdomen/Pelvis WITH Contrast MR#: [id number] Acct: [id number] Name: PEDRO LUIS WILCOX Rep #: [id number] : 1970 F 47 From: Darryl Ford MD PCP: Jacinto Person MD Status: REG CLI Study: Abdomen/Pelvis WITH Contrast Date of Exam: 12/08/17 Exam# [id number] Ordering Dr: Clifford Barakat DO STUDY: CT [...] Darryl Ford MD at 15:26 EDT Tel [phone], Service support , CC: Jacinto Person MD; Clifford Barakat DO Storage Battery Charger: Signed SOFT TISSUE NECK WITH Observed: 12/08/2017 Status: F Source: [place] CONTRAST 10:34 AM [facility] [place] [facility] Imaging Services [address] [place] [address] Soft Tissue Neck WITH Contrast MR#: [id number] Acct: [id number] Name: MARKLANEYPATTI Williamson Rep #: [id number] : 1970 F 47 From: Rylan Schmitz MD PCP: Jacinto Person MD Status: REG CLI Study: Soft Tissue Neck WITH Contrast Date of Exam: 12/08/17 Exam# [id number] Ordering Dr: Clifford Barakat DO STUDY: CT [...] FINDINGS: Normal bilateral parotid glands. Normal bilateral supervisor estimator and drafter spaces. Normal bilateral parapharyngeal spaces. Mild focal [...] to the superior vena cava outside the ygebi-io-nupr There is mild mucoperiosteal thickening in the [...] CC: Jacinto Person MD; Clifford Barakat DO Storage Battery Charger: Signed BONE SCAN WHOLE Observed: 12/06/2017 Status: F Source: [place] BODY 8:43 AM [facility] [place] [facility] Imaging Services [address] [place] [address] Bone Scan Whole Body MR#: [id number] Acct: [id number] Name: PEDRO LUIS WILCOX Rep #: [id number] : 1970 F 47 From: Clay Real DO PCP: Jacinto Person MD Status: REG CLI Study: Bone Scan Whole Body Date of Exam: 12/06/17 Exam# [id number] Ordering Dr: Clifford Barakat DO CLINICAL: 47-year-old [...] CC: Jacinto Person MD; Clifford Barakat DO Storage Battery Charger: Signed CBC W/DIFF, AUTOMATED Collected: 11/28/2017 Status: F Source: [place] 9:23 AM [facility] [facility] TYPE CODE TESTS RESULT OUT OF [...] Lymph 1.60 Performed By: #### L100.0100 #### [facility] [address] [place], [address] BASIC METABOLIC Collected: 11/28/2017 Status: F Source: [place] PROFILE (BMP) 9:23 AM [facility] [place] [facility] TYPE CODE TESTS RESULT OUT OF [...] 10 Performed By: #### L500.2500, L500.3400 #### [facility] [address] [facility] [place], [place], [address] LIVER PROFILE Collected: 11/28/2017 Status: F Source: [place] 9:23 AM [facility] [place] [facility] TYPE CODE TESTS RESULT OUT OF [...] 0.06 Performed By: #### L500.2500, L500.3400 #### [facility] [address] [facility] [place], [place], [address] CBC W/DIFF, AUTOMATED Collected: 11/22/2017 Status: F Source: [place] 6:37 AM [facility] [place] [facility] TYPE CODE TESTS RESULT OUT OF [...] Lymph 0.78 Performed By: #### L100.0100 #### [facility] [address] [place] [place], [address] BASIC METABOLIC Collected: 11/22/2017 Status: F Source: [place] PROFILE (BMP) 6:37 AM [facility] [place] [facility] TYPE CODE TESTS RESULT OUT OF [...] 7 Performed By: #### L500.2500, L500.3400 #### [facility] [address] [facility]. [place], [place], [id number] LIVER PROFILE Collected: 11/22/2017 Status: F Source: [place] 6:37 AM [facility] [place] [facility] TYPE CODE TESTS RESULT OUT OF [...] 0.07 Performed By: #### L500.2500, L500.3400 #### [facility] [address] [place], [address] PROGRESS Observed: 11/21/2017 Status: COMPLETED Source: [facility] 10:01 AM [facility] REPOSITORY HNO ID: [id number] Author: Clifford Barakat Service: (none) Author Type: [...] stopped after cycle #2. Was seen by reforestation worker at . Biopsy showed myopathy, but etiology [...] specimen was negative for both ER and MN as well as HER- 2. I discussed the case with the pathologist today who told me that histologically/morphologically the specimen was consistent with her previous specimen of breast cancer. The pathologist will issue an addendum quantifying ER and MN 0 as well as HER-2 at 0. [...] poorly differentiated carcinoma. See comment. COMMENT Immunohistochemistry ([id number]) does not rule out a breast primary. There is focal perinodal extension of tumor. Clinical correlation is suggested. ANTIBODY / CLONE RESULT Block 1 Mammaglobin (31A5) negative GATA3 (L50-823) positive, rare, dim CK8 (26iqfuM97) positive Ki-67 (30-9) positive, moderate to high ER (6F11) negative 0% MN (1E2) negative 0% CK19 (A53-B/A2.26) positive Cyclin D1/BCL-1 (SP4) positive CEA (11-7/TF-3HB-1) negative SHELLI (E29) positive CK20 (KS20.8) negative Villin (CWWB1) negative RCC (PN-15) negative CA125 (OC125) positive Previous therapy for metastatic disease: 1) Cisplatin (+/- PARP inhibitor on trial). She underwent a CT scan of the neck, chest abdomen and pelvis at [facility] on 10/05/2017. The CT of the [...] Came off trial. She was seen at [facility] and did not qualify for the 2 clinical trials available due to her pre-existing diabetic neuropathy and history of type 1 diabetes. Current therapy: 1) Le[place]/carbo. Interim history: She tolerated her first cycle [...] No jaundice or rash. No petechiae. 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 No focal motor weakness. MUSCULOSKELETAL: No muscle wasting. ASSESSMENT/PLAN: 1) pT1c (1.6 cm; grade 3; no AL invasion) pN0(sn) MX ER/MN negative HER2 non-amplified invasive ductal carcinoma of [...] DO CNOVSP Observed: 11/21/2017 Status: COMPLETED Source: [facility] 9:30 AM [facility] [place] REPOSITORY Visit (SP) Office (HEMAWS) PEDRO LUIS WILCOX ([id number]) 1970 F Date Time Provider Department 11/21/17 9:30 AM CLIFFORD BARAKAT During your visit today, we recorded the following information about you: Temperature Pulse Blood pressure Weight 100.7 degrees 104/minute 120/57 89.6 kg Orlando Yoladne Langston LPN, LPN 11/21/2017 10:05 AM Signed Temp 100.7 orally, [...] stopped after cycle #2. Was seen by reforestation worker at . Biopsy showed myopathy, but etiology [...] specimen was negative for both ER and MN as well as HER-2. I discussed the case with the pathologist today who told me that histologically/morphologically the specimen was consistent with her previous specimen of breast cancer. The pathologist will issue an addendum quantifying ER and MN 0 as well as HER-2 at 0. [...] poorly differentiated carcinoma. See comment. COMMENT Immunohistochemistry ([id number]) does not rule out a breast primary. There is focal perinodal extension of tumor. Clinical correlation is suggested. ANTIBODY / CLONE RESULT Block 1 Mammaglobin (31A5) negative GATA3 (L50-823) positive, rare, dim CK8 (28sslaP39) positive Ki-67 (30-9) positive, moderate to high ER (6F11) negative 0% MN (1E2) negative 0% CK19 (A53-B/A2.26) positive Cyclin D1/BCL-1 (SP4) positive CEA (11-7/TF-3HB-1) negative SHELLI (E29) positive CK20 (KS20.8) negative Villin (CWWB1) negative RCC (PN-15) negative CA125 (OC125) positive Previous therapy for metastatic disease: 1) Cisplatin (+/- PARP inhibitor on trial). She underwent a CT scan of the neck, chest abdomen and pelvis at [facility] on 10/05/2017. The CT of the [...] Came off trial. She was seen at [facility] and did not qualify for the 2 clinical trials available due to her pre-existing diabetic neuropathy and history of type 1 diabetes. Current therapy: 1) [place]/carbo. Interim history: She tolerated her first cycle [...] No jaundice or rash. No petechiae. 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 No focal motor weakness. MUSCULOSKELETAL: No muscle wasting. ASSESSMENT/PLAN: 1) pT1c (1.6 cm; grade 3; no AL invasion) pN0(sn) MX ER/MN negative HER2 non-amplified invasive ductal carcinoma of [...] Modules accepted: Orders Referring Provider: CLIFFORD BARAKAT [[id number]] Allergies As of Date: 11/21/2017 (No Known Allergies) Date Reviewed: 11/21/2017 Reviewed by: Orlando Lanier (Human Resources Operations Specialist) TIFFANIE Langston - Fully Assessed Reason for Visit: Established Patient [175] Primary Visit Diagnosis:Malignant neoplasm of upper-outer quadrant of right breast in female, estrogen receptor negative (HCC) [C50.411, Z17.1] Other Visit Diagnosis:Malignant neoplasm metastatic to left lung (HCC) [C78.02] Order(s):levoFLOXacin (LEVAQUIN) 500 mg tabletTake 1 tablet by mouth once daily for 2 days.Disp: 2 tabletRfl: 0 CT ABD/PEL W IVCON [0622438] Order #: [id number] FUTURE CT CHEST W IVCON [[id number]] Order #: [id number] FUTURE iv contrast (will be provided with [...] 1 EachRfl: 0 NM BONE WHOLE BODY [5842101] Order #: [id number] FUTURE Follow-up and Disposition History Recorded Prescriptions [...] More... HYPERLIPIDEMIA NEC/NOS [E78.5] INVALID FOR* FIBROMYALGIA [WBL6542] INVALID FOR* Priority: Moderate OVERWEIGHT [E66.9] INVALID [...] Is taking in fluids and food. Orlando Yolande Langston LPN Encounter Status:Closed by CLIFFORD BARAKAT DO on 11/21/17 [facility] Observed: 11/18/2017 Status: COMPLETED Source: [facility] 1:00 PM [facility] REPOSITORY Visit (SP) Office (DANYEL) PEDRO LUIS WILCOX ([id number]) 1970 F Date Time Provider Department 11/18/17 1:00 PM ASIA REYES (SALVADOR) DANYEL During your visit today, we recorded [...] then. Temp is now 99.4 F. Federica Reyes, JEYSON.MACHINERY MECHANIC 11/21/2017 8:51 AM Signed Chief Complaint Patient presents with: Established Patient HPI: Pedro Luis Wilcox is a 47 year old female who presents here today for complaints of fevers that began wed. evening. Pt. left work early and went to [facility] ED late Wed. night. Per Dr. Barakat's [...] after cycle #2. ? Was seen by reforestation worker at . Biopsy showed myopathy, but etiology [...] specimen was negative for both ER and MN as well as HER-2. I discussed the case with the pathologist today who told me that histologically/morphologically the specimen was consistent with her previous specimen of breast cancer. The pathologist will issue an addendum quantifying ER and MN 0 as well as HER-2 at 0. [...] poorly differentiated carcinoma. See comment. COMMENT Immunohistochemistry ([id number]) does not rule out a breast primary. There is focal perinodal extension of tumor. Clinical correlation is suggested. ? ANTIBODY / CLONE RESULT Block 1 Mammaglobin (31A5) negative GATA3 (L50-823) positive, rare, dim CK8 (62nwruY28) positive Ki-67 (30-9) positive, moderate to high ER (6F11) negative 0% MN (1E2) negative 0% CK19 (A53-B/A2.26) positive Cyclin D1/BCL-1 (SP4) positive CEA (11-7/TF-3HB-1) negative SHELLI (E29) positive CK20 (KS20.8) negative Villin (CWWB1) negative RCC (PN-15) negative CA125 (OC125) positive ? Previous therapy for metastatic disease: 1) Cisplatin (+/- PARP inhibitor on trial). ? She underwent a CT scan of the neck, chest abdomen and pelvis at [facility] on 10/05/2017. The CT of the [...] off trial. ? She was seen at [facility] and did not qualify for the 2 clinical trials available due to her pre-existing diabetic neuropathy and history of type 1 diabetes. ? Current therapy:[place]/Carboplatin Last cycle gem/carbo on 11/08/17-at [facility]. Fevers started 11/16/17 Tmax 102. Appetite:fair-drinking plenty [...] grade 3; no AL invasion) pN0(sn) MX ER/MN negative HER2 non-amplified invasive ductal carcinoma of the right breast. Comprehensive BRCA 1 and 2 testing (scanned 12/05/2013) no mutation 2. FUO (fever of unknown origin) - ICD9: 780.60, ICD10: R50.9 - Reviewed [facility] ED notes/labs/CXR/urine-neg. Blood cultures pending. - Pt. [...] who agrees with treatment plan. Asia Reyes APRN.MACHINERY MECHANIC Referring Provider: CLIFFORD BARAKAT [[id number]] Allergies As of Date: 11/18/2017 (No Known Allergies) Date Reviewed: 11/18/2017 Reviewed by: Asia (Rn Clinical Trials) Eric - Fully Assessed Reason for Visit: [...] More... HYPERLIPIDEMIA NEC/NOS [E78.5] INVALID FOR* FIBROMYALGIA [[id number]] INVALID FOR* Priority: Moderate OVERWEIGHT [E66.9] INVALID [...] 11/21/17 PROGRESS Observed: 11/18/2017 Status: COMPLETED Source: [facility] 11:52 AM [facility] REPOSITORY HNO ID: [id number] Author: Asia Reyes Service: (none) Author Type: Nurse Practitioner Type: Progress Notes Filed: 11/21/2017 8:51 AM Note Text: Chief Complaint Patient presents with: Established Patient HPI: Pedro Luis Wilcox is a 47 year old female who presents here today for complaints of fevers that began wed. evening. Pt. left work early and went to [facility] ED late Wed. night. Per Dr. Barakat's [...] after cycle #2. ? Was seen by reforestation worker at . 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 ? Completed radiation 03/26/2014. ? ? ? She started developing intermittent shortness of breath with exertion. She also has a cough that is a dry cough. She was taken off her PMA inhibitor but the cough has not changed. [...] specimen was negative for both ER and MN as well as HER- 2. I discussed the case with the pathologist today who told me that histologically/morphologically the specimen was consistent with her previous specimen of breast cancer. The pathologist will issue an addendum quantifying ER and MN 0 as well as HER-2 at 0. [...] poorly differentiated carcinoma. See comment. COMMENT Immunohistochemistry ([id number]) does not rule out a breast primary. There is focal perinodal extension of tumor. Clinical correlation is suggested. ? ANTIBODY / CLONE RESULT Block 1 Mammaglobin (31A5) negative GATA3 (L50-823) positive, rare, dim CK8 (51uejdI72) positive Ki-67 (30-9) positive, moderate to high ER (6F11) negative 0% MN (1E2) negative 0% CK19 (A53-B/A2.26) positive Cyclin D1/BCL-1 (SP4) positive CEA (11-7/TF-3HB-1) negative SHELLI (E29) positive CK20 (KS20.8) negative Villin (CWWB1) negative RCC (PN-15) negative CA125 (OC125) positive ? Previous therapy for metastatic disease: 1) Cisplatin (+/- PARP inhibitor on trial). ? She underwent a CT scan of the neck, chest abdomen and pelvis at [facility] on 10/05/2017. The CT of the [...] off trial. ? She was seen at [facility] and did not qualify for the 2 clinical trials available due to her pre-existing diabetic neuropathy and history of type 1 diabetes. ? Current therapy:[place]/Carboplatin Last cycle gem/carbo on 11/08/17-at [facility]. Fevers started 11/16/17 Tmax 102. Appetite:fair-drinking plenty [...] grade 3; no AL invasion) pN0(sn) MX ER/MN negative HER2 non-amplified invasive ductal carcinoma of the right breast. Comprehensive BRCA 1 and 2 testing (scanned 12/05/2013) no mutation 2. FUO (fever of unknown origin) - ICD9: 780.60, ICD10: R50.9 - Reviewed [facility] ED notes/labs/CXR/urine-neg. Blood cultures pending. - Pt. [...] who agrees with treatment plan. Asia Reyes APRN.[facility] EMERGENCY DEPARTMENT Observed: 11/16/2017 Status: F Source: [place] SUMMARY 11:40 PM [facility] [place] [facility] Medical Records Department [address] [place] [address] Emergency Department Summary 11/16/17 2102 MR#: [id number] Acct: [id number] Name: PEDRO LUIS WILCOX Rep #: [id number] : 1970 47 From: Mook Paige MD [...] (Verified 11/16/17 20:49) Primary Care Physician: Jacinto Person MD [Primary Care Provider] - Surgical History: [...] your Primary Care Provider. Call [facility] ([phone]) or report to the closest Emergency Room. Call 911 if necessary. 11/16/17 2340 <Electronically signed by Mook Paige MD> Date Mook Paige MD Cosigner Signature (If Indicated): Date CC: Jacinto Person MD URINALYSIS, COMPLETE Collected: 11/16/2017 Status: F Source: [place] 10:00 PM [facility] [place] [facility] Order Comment: How was Urine Obtained? TECHNICAL PHOTOGRAPHER TO SPECIFY TYPE CODE TESTS RESULT OUT [...] URINE SEEN Performed By: #### L400.0001 #### [facility] [address] [facility] [place], [address] Observed: 11/16/2017 Status: F Source: [place] CULTURE, BLOOD (WB) 9:17 PM [facility] No growth in 5 days. Performed By: #### M200.1000 #### [facility] [address] [facility] [place], [address] Observed: 11/16/2017 Status: F Source: [place] CULTURE, BLOOD (WB) 9:15 PM [facility] [facility] No growth in 5 days. Performed By: #### M200.1000 #### [facility] [address] [facility] [place], [place], [address] CHEST 1 VIEW Observed: 11/16/2017 Status: F Source: [place] (PORTABLE) 9:02 PM [facility] [facility] Imaging Services [address] [place] [address] Chest 1 View (Portable) MR#: [id number] Acct: [id number] Name: PEDRO LUIS WILCOX Rep #: [id number] : 1970 F 47 From: Elvira Foss MD PCP: Jacinto Person MD Status: REG ER Study: Chest 1 View (Portable) Date of Exam: 11/16/17 Exam# [id number] Ordering Dr: Mook Paige MD STUDY: X-RAY [...] CC: MOOK PAIGE MD; Jacinto Person MD Storage Battery Charger: Signed CBC W/DIFF, AUTOMATED Collected: 11/16/2017 Status: F Source: [place] 9:01 PM [facility] TYPE CODE TESTS RESULT OUT OF [...] Lymph 1.55 Performed By: #### L100.0100 #### [facility] [place], [address] COMPREHENSIVE METABOLIC Collected: 11/16/2017 Status: F Source: [facility] 9:01 PM [facility] TYPE CODE TESTS RESULT OUT OF [...] GAP 7 Performed By: #### L500.4050 #### [facility] [address] [place], [address] CBC W/DIFF, AUTOMATED Collected: 11/14/2017 Status: F Source: [place] 10:46 AM [facility] TYPE CODE TESTS RESULT OUT OF [...] Lymph 1.52 Performed By: #### L100.0100 #### [facility] [address] [place], [address] BASIC METABOLIC Collected: 11/14/2017 Status: F Source: [place] PROFILE (BMP) 10:46 AM [facility] TYPE CODE TESTS RESULT OUT OF [...] 6 Performed By: #### L500.2500, L500.3400 #### [facility] [address] [place] [place], [address] LIVER PROFILE Collected: 11/14/2017 Status: F Source: [place] 10:46 AM [facility] TYPE CODE TESTS RESULT OUT OF [...] 0.10 Performed By: #### L500.2500, L500.3400 #### [facility] [address] [facility] [place], [address] VENOUS DUPLEX LOWER Observed: 11/09/2017 Status: F Source: [place] EXTREMITY 5:38 PM [facility] Cardiovascular Services [address] [place] [address] Venous Duplex US, Unilateral 11/09/17 1359 MR#: [id number] Acct: [id number] Name: PEDRO LUIS WILCOX Rep #: [id number] : 1970 47 From: Clay Nieto MD [...] Date Dictated: 11/09/17 1359 Date Transcribed: 11/09/171736 Storage Battery Charger: Signed CBC W/DIFF, AUTOMATED Collected: 11/07/2017 Status: F Source: [place] 10:07 AM [facility] TYPE CODE TESTS RESULT OUT OF [...] Lymph 1.94 Performed By: #### L100.0100 #### [facility] [address] [facility] [place], [address] BASIC METABOLIC Collected: 11/07/2017 Status: F Source: [place] PROFILE ([facility]) 10:07 AM [facility] TYPE CODE TESTS RESULT OUT OF [...] 6 Performed By: #### L500.2500, L500.3400 #### [facility] [address] [place], [place], [id number] LIVER PROFILE Collected: 11/07/2017 Status: F Source: [place] 10:07 AM [facility] TYPE CODE TESTS RESULT OUT OF [...] 0.10 Performed By: #### L500.2500, L500.3400 #### [facility] [address] [place], [place], [address] CBC W/DIFF, AUTOMATED Collected: 10/31/2017 Status: F Source: [place] 11:35 AM [facility] TYPE CODE TESTS RESULT OUT OF [...] Lymph 1.71 Performed By: #### L100.0100 #### [facility] [address] [facility] [place], [place], [address] BASIC METABOLIC Collected: 10/31/2017 Status: F Source: [place] PROFILE ([facility]) 11:35 AM [facility] TYPE CODE TESTS RESULT OUT OF [...] 5 Performed By: #### L500.2500, L500.3400 #### [facility] [address] [facility] [place], [place], [address] LIVER PROFILE Collected: 10/31/2017 Status: F Source: [place] 11:35 AM [facility] [facility] TYPE CODE TESTS RESULT OUT OF [...] 0.10 Performed By: #### L500.2500, L500.3400 #### [facility] Laboratory [address] [facility] [place], [address] PROGRESS Observed: 10/27/2017 Status: COMPLETED Source: [facility] 3:04 PM [facility] REPOSITORY HNO ID: [id number] Author: Isha Servin (Sw) Service: (none) Author Type: Aircraft Painter Type: Progress Notes Filed: 10/27/2017 3:05 PM Note Text: SOCIAL WORK FOLLOW UP NOTE: [facility] Date of service: October 27, 2017 Pedro Lius Wilcox is being seen for a follow [...] before 5:00 or leave any information/needs with progressive care nurse at meeting tomorrow and HILARIO will call patient Tuesday upon return. PLAN: Continue follow up as needed F/U APPOINTMENT: ANNAMARIA Nunez CNSW Observed: 10/27/2017 Status: COMPLETED Source: [facility] 12:00 AM [facility] REPOSITORY Social Work (DANYEL) PEDRO LUIS WILCOX ([id number]) 1970 F Date Time Provider Department 10/27/17 ISHA SERVIN (SW) During your visit today, we recorded the following information about you: ANNAMARIA Schroeder 10/27/2017 3:05 PM Signed SOCIAL WORK FOLLOW UP NOTE: [facility] Date of service: October 27, 2017 Pedro [...] out of the office Tuesday and Tuesday. SW encouraged patient to call back today before 5:00 or leave any information/needs with progressive care nurse at meeting tomorrow and SW will call patient Tuesday upon return. PLAN: Continue follow up as needed F/U APPOINTMENT: ANNAMARIA Nunez Allergies As of Date: 10/27/2017 (No Known [...] More... HYPERLIPIDEMIA NEC/NOS [E78.5] INVALID FOR* FIBROMYALGIA [[id number]] INVALID FOR* Priority: Moderate OVERWEIGHT [E66.9] INVALID [...] 10/27/17 PROGRESS Observed: 10/25/2017 Status: COMPLETED Source: [facility] 12:23 PM [facility] [place] REPOSITORY [facility] ID: [id number] Author: Clifford Barakat Service: (none) Author Type: [...] stopped after cycle #2. Was seen by reforestation worker at . Biopsy showed myopathy, but etiology [...] specimen was negative for both ER and MN as well as HER- 2. I discussed the case with the pathologist today who told me that histologically/morphologically the specimen was consistent with her previous specimen of breast cancer. The pathologist will issue an addendum quantifying ER and MN 0 as well as HER-2 at 0. [...] poorly differentiated carcinoma. See comment. COMMENT Immunohistochemistry ([id number]) does not rule out a breast primary. There is focal perinodal extension of tumor. Clinical correlation is suggested. ANTIBODY / CLONE RESULT Block 1 Mammaglobin (31A5) negative GATA3 (L50-823) positive, rare, dim CK8 (37yvnzS90) positive Ki-67 (30-9) positive, moderate to high ER (6F11) negative 0% MN (1E2) negative 0% CK19 (A53-B/A2.26) positive Cyclin D1/BCL-1 (SP4) positive CEA (11-7/TF-3HB-1) negative SHELLI (E29) positive CK20 (KS20.8) negative Villin (CWWB1) negative RCC (PN-15) negative CA125 (OC125) positive Previous therapy for metastatic disease: 1) Cisplatin (+/- PARP inhibitor on trial). She underwent a CT scan of the neck, chest abdomen and pelvis at [facility] on 10/05/2017. The CT of the [...] management. Interim history: She was seen at [facility] and did not qualify for the 2 [...] No jaundice or rash. No petechiae. 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 No focal motor weakness. MUSCULOSKELETAL: No muscle wasting. ASSESSMENT/PLAN: 1) pT1c (1.6 cm; grade 3; no AL invasion) pN0(sn) MX ER/MN negative HER2 non-amplified invasive ductal carcinoma of [...] DO CNOVSP Observed: 10/25/2017 Status: COMPLETED Source: [facility] 10:50 AM [facility] REPOSITORY Visit (SP) Office (DANYEL) PEDRO LUIS WILCOX ([id number]) 1970 F Date Time Provider Department 10/25/17 [...] stopped after cycle #2. Was seen by reforestation worker at . Biopsy showed myopathy, but etiology [...] specimen was negative for both ER and MN as well as HER-2. I discussed the case with the pathologist today who told me that histologically/morphologically the specimen was consistent with her previous specimen of breast cancer. The pathologist will issue an addendum quantifying ER and MN 0 as well as HER-2 at 0. [...] poorly differentiated carcinoma. See comment. COMMENT Immunohistochemistry ([id number]) does not rule out a breast primary. There is focal perinodal extension of tumor. Clinical correlation is suggested. ANTIBODY / CLONE RESULT Block 1 Mammaglobin (31A5) negative GATA3 (L50-823) positive, rare, dim CK8 (36znttY18) positive Ki-67 (30-9) positive, moderate to high ER (6F11) negative 0% MN (1E2) negative 0% CK19 (A53-B/A2.26) positive Cyclin D1/BCL-1 (SP4) positive CEA (11-7/TF-3HB-1) negative SHELLI (E29) positive CK20 (KS20.8) negative Villin (CWWB1) negative RCC (PN-15) negative CA125 (OC125) positive Previous therapy for metastatic disease: 1) Cisplatin (+/- PARP inhibitor on trial). She underwent a CT scan of the neck, chest abdomen and pelvis at [facility] on 10/05/2017. The CT of the [...] management. Interim history: She was seen at [facility] and did not qualify for the 2 [...] No jaundice or rash. No petechiae. 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 No focal motor weakness. MUSCULOSKELETAL: No muscle wasting. ASSESSMENT/PLAN: 1) pT1c (1.6 cm; grade 3; no AL invasion) pN0(sn) MX ER/MN negative HER2 non-amplified invasive ductal carcinoma of [...] Modules accepted: Orders Referring Provider: CLIFFORD BARAKAT [[id number]] Allergies As of Date: 10/25/2017 (No Known Allergies) Date Reviewed: 10/25/2017 Reviewed by: Veronica Harris - Fully Assessed Reason for Visit: Established Patient [175] Primary Visit Diagnosis:Malignant neoplasm of upper-outer quadrant of right breast in female, estrogen receptor negative (HCC) [C50.411, Z17.1] Other Visit Diagnosis:Malignant neoplasm metastatic to left lung (HCC) [C78.02] Order(s):KULWINDER CBC AND DIFF [SQWCBCDF] Order #: [id number] STANDING BMP PLUS FHC [SQPICBMP] Order #: [id number] STANDING HEPATIC FUNCTION PNL [SQHFP] Order #: [id number] STANDING metoclopramide HCl (REGLAN) 10 mg tabletTake [...] More... HYPERLIPIDEMIA NEC/NOS [E78.5] INVALID FOR* FIBROMYALGIA [[id number]] INVALID FOR* Priority: Moderate OVERWEIGHT [E66.9] INVALID [...] Status:Closed by CLIFFORD BARAKAT DO on 10/25/17 NISHANT Observed: 10/25/2017 Status: COMPLETED Source: [facility] 12:00 AM [facility] REPOSITORY Telephone (DANYEL) PEDRO LUIS WILCOX ([id number]) 1970 F Date Time Provider Department 10/25/17 CLIFFORD BARAKAT During your visit today, we recorded the following information about you: Roselyn Garcia Saurabh Psr 10/25/2017 2:00 PM Signed [facility] calling stating they are needing clinical notes on why patient is needing chemo, what type of chemo, chemocodes and any precertification if needed.. Please fax to [phone]. Fdeerica Pimentel LPN 10/25/2017 2:08 PM Signed All lab and chemo orders faxed to [facility] infusion suite earlier. Orders and last office note faxed to number below as requested. [facility] is responsible for the precert, patient requesting to have service there. Federica Vásquez, RN, RN 10/28/2017 10:31 AM Signed Contacted [facility] to see if patient has been scheduled for chemo and was transferred to infusion nurse. Nurse confirmed that pre-certification has been completed but for future reference, [facility] is responsible for patient precert. We do not precert for outside referring doctors. Nurse stated she is faxing over forms that will need to be filled out prior to each infusion because their policies are changing. Fax number given to nurse. Nurse verified that she has orders for labs/chemo. Patient scheduled for 11/01 at 9:00am at [facility]. Patient informed during chemo ed and stated [...] More... HYPERLIPIDEMIA NEC/NOS [E78.5] INVALID FOR* FIBROMYALGIA [[id number]] INVALID FOR* Priority: Moderate OVERWEIGHT [E66.9] INVALID [...] 10/25/17 PROGRESS Observed: 10/20/2017 Status: COMPLETED Source: [facility] 4:48 PM [facility] REPOSITORY HNO ID: [id number] Author: Sawyer Toussaint Service: (none) Author Type: [...] woman with history of right sided ER-negative, MN-negative, HER2-negative Stage I breast cancer diagnosed in 2013 with subsequent metastatic recurrence diagnosed in 2016. She presents today for consideration of clinical trial options. Patient was initially found to have a right sided breast mass in 2013 at the time of a screening mammogram. At the time of biopsy on 09/13/13, she was noted to have an invasive ductal carcinoma, grade 3, ER-negative, MN-negative, HER2-negative. On 10/05/13, she underwent right partial [...] others on mom's side - Heart Father CAD/ME dx'd first age late 40's - Hypertension Father - pancreatic cancer [OTHER] Maternal Grandmother - Colon Cancer Other no 1st degree - Breast Cancer Other maternal cousin SOCIAL HISTORY: Patient and her live in the [facility]. She is not working and is [...] woman with history of right sided ER-negative, MN-negative, HER2-negative Stage I breast cancer diagnosed in [...] [employer] JAVELIN PARP MEDLEY study open at [facility]. Unfortunately, patient does not qualify for [...] MD CNOVSP Observed: 10/20/2017 Status: COMPLETED Source: [facility] 2:30 PM [facility] [place] REPOSITORY Visit (SP) Office (HEMCA4) PEDRO LUIS WILCOX ([id number]) 1970 F Date Time Provider Department 10/20/17 2:30 PM [facility] During your visit today, we recorded the [...] No Does patient want to see a R D Manager? No (yes to any of above refer [...] woman with history of right sided ER-negative, MN-negative, HER2-negative Stage I breast cancer diagnosed in 2013 with subsequent metastatic recurrence diagnosed in 2017. She presents today for consideration of clinical trial options. Patient was initially found to have a right sided breast mass in 2013 at the time of a screening mammogram. At the time of biopsy on 09/13/13, she was noted to have an invasive ductal carcinoma, grade 3, ER-negative, MN-negative, HER2-negative. On 10/05/13, she underwent right partial [...] chemotherapy. Radiation was completed in 03/2014. In 2017, patient developed cough and shortness of breath. [...] others on mom's side - Heart Father CAD/ME dx'd first age late 40's - Hypertension Father - pancreatic cancer [OTHER] Maternal Grandmother - Colon Cancer Other no 1st degree - Breast Cancer Other maternal cousin SOCIAL HISTORY: Patient and her live in the [place] area. She is not working and is [...] woman with history of right sided ER-negative, MN-negative, HER2-negative Stage I breast cancer diagnosed in [...] [employer] JAVELIN PARP MEDLEY study open at [facility]. Unfortunately, patient does not qualify for [...] Clifford Barakat MD Referring Provider: CLIFFORD BARAKAT [[id number]] Allergies As of Date: 10/20/2017 (No Known [...] More... HYPERLIPIDEMIA NEC/NOS [E78.5] INVALID FOR* FIBROMYALGIA [[id number]] INVALID FOR* Priority: Moderate OVERWEIGHT [E66.9] INVALID [...] No Does patient want to see a R D Manager? No (yes to any of above refer [...] 10/20/17 PROGRESS Observed: 10/11/2017 Status: COMPLETED Source: [facility] 2:04 PM [facility] [place] REPOSITORY HNO ID: [id number] Author: Clifford Barakat Service: (none) Author Type: [...] stopped after cycle #2. Was seen by reforestation worker at . Biopsy showed myopathy, but etiology [...] specimen was negative for both ER and MN as well as HER- 2. I discussed the case with the pathologist today who told me that histologically/morphologically the specimen was consistent with her previous specimen of breast cancer. The pathologist will issue an addendum quantifying ER and MN 0 as well as HER-2 at 0. [...] poorly differentiated carcinoma. See comment. COMMENT Immunohistochemistry ([id number]) does not rule out a breast primary. There is focal perinodal extension of tumor. Clinical correlation is suggested. ANTIBODY / CLONE RESULT Block 1 Mammaglobin (31A5) negative GATA3 (L50-823) positive, rare, dim CK8 (22hfumN56) positive Ki-67 (30-9) positive, moderate to high ER (6F11) negative 0% MN (1E2) negative 0% CK19 (A53-B/A2.26) positive Cyclin D1/BCL-1 (SP4) positive CEA (11-7/TF-3HB-1) negative SHELLI (E29) positive CK20 (KS20.8) negative Villin (CWWB1) negative RCC (PN-15) negative CA125 (OC125) positive Current therapy: 1) Cisplatin (+/- PARP inhibitor on trial). Presents for ongoing oncologic management. Interim history: She underwent a CT scan of the neck, chest abdomen and pelvis at [facility] on 10/05/2017. The CT of the [...] No jaundice or rash. No petechiae. 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 No focal motor weakness. MUSCULOSKELETAL: No muscle wasting. ASSESSMENT/PLAN: 1) pT1c (1.6 cm; grade 3; no AL invasion) pN0(sn) MX ER/MN negative HER2 non-amplified invasive ductal carcinoma of [...] in particular the CASE 6115 trial at [facility]. Plan: -Referral to [facility] for opinion on clinical trial. -If she is not a candidate or chooses not to pursue clinical trial, then treatment with gemcitabine and carboplatin. Clifford Barakat DO CNOVSP Observed: 10/11/2017 Status: COMPLETED Source: [facility] 2:00 PM [facility] REPOSITORY Visit (SP) Office (DANYEL) PEDRO LUIS WILCOX ([id number]) 1970 F Date Time Provider Department 10/11/17 [...] stopped after cycle #2. Was seen by reforestation worker at . Biopsy showed myopathy, but etiology [...] specimen was negative for both ER and MN as well as HER-2. I discussed the case with the pathologist today who told me that histologically/morphologically the specimen was consistent with her previous specimen of breast cancer. The pathologist will issue an addendum quantifying ER and MN 0 as well as HER-2 at 0. [...] poorly differentiated carcinoma. See comment. COMMENT Immunohistochemistry ([id number]) does not rule out a breast primary. There is focal perinodal extension of tumor. Clinical correlation is suggested. ANTIBODY / CLONE RESULT Block 1 Mammaglobin (31A5) negative GATA3 (L50-823) positive, rare, dim CK8 (24llfoO69) positive Ki-67 (30-9) positive, moderate to high ER (6F11) negative 0% MN (1E2) negative 0% CK19 (A53-B/A2.26) positive Cyclin D1/BCL-1 (SP4) positive CEA (11-7/TF-3HB-1) negative SHELLI (E29) positive CK20 (KS20.8) negative Villin (CWWB1) negative RCC (PN-15) negative CA125 (OC125) positive Current therapy: 1) Cisplatin (+/- PARP inhibitor on trial). Presents for ongoing oncologic management. Interim history: She underwent a CT scan of the neck, chest abdomen and pelvis at [facility] on 10/05/2017. The CT of the [...] No jaundice or rash. No petechiae. 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 No focal motor weakness. MUSCULOSKELETAL: No muscle wasting. ASSESSMENT/PLAN: 1) pT1c (1.6 cm; grade 3; no AL invasion) pN0(sn) MX ER/MN negative HER2 non-amplified invasive ductal carcinoma of [...] in particular the CASE 6115 trial at [facility]. Plan: -Referral to [facility] for opinion on clinical trial. -If she is not a candidate or chooses not to pursue clinical trial, then treatment with gemcitabine and carboplatin. Clifford Barakat DO Referring Provider: CLIFFORD BARAKAT [[id number]] Allergies As of Date: 10/11/2017 (No Known [...] More... HYPERLIPIDEMIA NEC/NOS [E78.5] INVALID FOR* FIBROMYALGIA [[id number]] INVALID FOR* Priority: Moderate OVERWEIGHT [E66.9] INVALID [...] 10/11/17 HOSP Observed: 10/11/2017 Status: COMPLETED Source: [facility] 12:00 AM [facility] REPOSITORY Patient Update (DANYEL) PEDRO LUIS WILCOX ([id number]) 1970 F Date Time Provider Department 10/11/17 EMRE MCDONOUGH) DANYEL During your visit today, we recorded the following information about you: Emre Mcdonuogh RN 10/11/2017 2:44 PM Signed [id number] Note: [...] More... HYPERLIPIDEMIA NEC/NOS [E78.5] INVALID FOR* FIBROMYALGIA [[id number]] INVALID FOR* Priority: Moderate OVERWEIGHT [E66.9] INVALID [...] ECHOCARDIOGRAM COMPLETE Observed: 10/10/2017 Status: F Source: [place] 10:19 AM [facility] Cardiovascular Services [address] [place] [address] Echo Complete 10/10/17 0809 MR#: [id number] Acct: [id number] Name: PEDRO LUIS WILCOX Clay Rep #: [id number] : 1970 47 From: Eric Blue MD Attending Dr: Raza VELAZQUEZ,Jacinto Status: REG CLI Ordering Dr: Clifford Barakat DO Date: 10/10/17 Location: [place] Sex: F AA Admitted: Reason For Study: [...] Blue MD CC: Jacinto Person MD; Clifford Diannemike MCBRIDE Date Dictated: 10/10/17 0809 Date Transcribed: 10/10/17 1019 Storage Battery Charger: Signed GASTRIC EMPTYING Observed: 10/10/2017 Status: F Source: [place] STUDY 9:17 AM [facility] Imaging Services [address] [place] [address] Gastric Emptying Study MR#: [id number] Acct: [id number] Name: PEDRO LUIS WILCOX Rep #: [id number] : 1970 F 47 From: Clay Real DO PCP: Jacinto Person MD Status: REG CLI Study: Gastric Emptying Study Date of Exam: 10/10/17 Exam# [id number] Ordering Dr: Jacinto Person MD CLINICAL: 47-year-old [...] throughout all components of the examination. (Tim et al, J Nucl Med Tech 38: 186, 2010). Electronically Signed: Clay Real DO at 23:46 EDT Tel , Service support , CC: Jacinto Person MD Storage Battery Charger: Signed L/S SPINE MIN 4 Observed: 10/10/2017 Status: F Source: [place] VIEWS 8:41 AM [facility] REPOSITORY [facility] Imaging Services [address] [place] [address] L/S Spine Min 4 Views MR#: [id number] Acct: [id number] Name: PEDRO LUIS WILCOX Rep #: [id number] : 1970 F 47 From: Jina Arciniega MD PCP: Jacinto Person MD Status: REG CLI Study: L/S Spine Min 4 Views Date of Exam: 10/10/17 Exam# [id number] Ordering Dr: Jacinto Person MD STUDY: X-RAY [...] Service support , CC: Jacinto Person MD Storage Battery Charger: Signed BONE SCAN WHOLE Observed: 10/07/2017 Status: F Source: [place] BODY 10:04 AM [facility] REPOSITORY [facility] Imaging Services [address] [place] [address] Bone Scan Whole Body MR#: [id number] Acct: [id number] Name: LANEY WILCOXPATTI Williamson Rep #: [id number] : 1970 F 47 From: Clay Real DO PCP: Jacinto Person MD Status: REG CLI Study: Bone Scan Whole Body Date of Exam: 10/07/17 Exam# [id number] Ordering Dr: Clifford Barakat DO CLINICAL: 47-year-old [...] CC: Jacinto Person MD; Clifford Barakat DO Storage Battery Charger: Signed CHEST WITH CONTRAST Observed: 10/05/2017 Status: F Source: [place] 3:28 PM [facility] Imaging Services [address] [place] [address] Chest WITH Contrast MR#: [id number] Acct: [id number] Name: PEDRO LUIS WILCOX Rep #: [id number] : 1970 F 47 From: Reed Samaniego MD PCP: Jacinto Person MD Status: REG CLI Study: Chest WITH Contrast Date of Exam: 10/05/17 Exam# [id number] Ordering Dr: Clifford Barakat DO STUDY: CT [...] techniques were used for this CT. COMPARISON: 5..18 FINDINGS: There is a left Port-A-Cath and/or [...] CC: Jacinto Person MD; Clifford Barakat DO Storage Battery Charger: Signed ABDOMEN/PELVIS WITH Observed: 10/05/2017 Status: F Source: [place] CONTRAST 3:20 PM [facility] Imaging Services [address] [place] [address] Abdomen/Pelvis WITH Contrast MR#: [id number] Acct: [id number] Name: PEDRO LUIS WILCOX Rep #: [id number] : 1970 F 47 From: Reed Samaniego MD PCP: Jacinto Person MD Status: REG CLI Study: Abdomen/Pelvis WITH Contrast Date of Exam: 10/05/17 Exam# [id number] Ordering Dr: Clifford Barakat DO STUDY: CT [...] techniques were used for this CT. COMPARISON: 5.05.05 FINDINGS: The visualized lung bases are unremarkable. [...] CC: Jacinto Person MD; Clifford Barakat DO Storage Battery Charger: Signed SOFT TISSUE NECK WITH Observed: 10/05/2017 Status: F Source: [place] CONTRAST 3:00 PM [facility] Imaging Services [address] [place] [address] Soft Tissue Neck WITH Contrast MR#: [id number] Acct: [id number] Name: PEDRO LUIS WILCOX Rep #: [id number] : 1970 F 47 From: Reed Samaniego MD PCP: Jacinto Person MD Status: REG CLI Study: Soft Tissue Neck WITH Contrast Date of Exam: 10/05/17 Exam# [id number] Ordering Dr: Clifford Barakat DO STUDY: CT [...] FINDINGS: Normal bilateral parotid glands. Normal bilateral supervisor estimator and drafter spaces. Normal bilateral parapharyngeal spaces. Normal bilateral [...] CC: Jacinto Person MD; Clifford Barakat DO Storage Battery Charger: Signed PROGRESS Observed: 10/04/2017 Status: COMPLETED Source: [facility] 12:44 PM [facility] [place] REPOSITORY HNO ID: [id number] Author: Clifford Barakat Service: (none) Author Type: [...] stopped after cycle #2. Was seen by reforestation worker at . Biopsy showed myopathy, but etiology [...] specimen was negative for both ER and MN as well as HER- 2. I discussed the case with the pathologist today who told me that histologically/morphologically the specimen was consistent with her previous specimen of breast cancer. The pathologist will issue an addendum quantifying ER and MN 0 as well as HER-2 at 0. [...] poorly differentiated carcinoma. See comment. COMMENT Immunohistochemistry ([id number]) does not rule out a breast primary. There is focal perinodal extension of tumor. Clinical correlation is suggested. ANTIBODY / CLONE RESULT Block 1 Mammaglobin (31A5) negative GATA3 (L50-823) positive, rare, dim CK8 (41dlkuK55) positive Ki-67 (30-9) positive, moderate to high ER (6F11) negative 0% MN (1E2) negative 0% CK19 (A53-B/A2.26) positive Cyclin [...] No jaundice or rash. No petechiae. 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 No focal motor weakness. MUSCULOSKELETAL: No muscle wasting. ASSESSMENT/PLAN: 1) pT1c (1.6 cm; grade 3; no AL invasion) pN0(sn) MX ER/MN negative HER2 non-amplified invasive ductal carcinoma of [...] DO CNOVSP Observed: 10/04/2017 Status: COMPLETED Source: [facility] 9:30 AM [facility] REPOSITORY Visit (SP) Office (DANEYL) PEDRO LUIS WILCOX ([id number]) 1970 F Date Time Provider Department 10/04/17 9:30 AM CLIFFORD BARAKAT During your visit today, we recorded the following information about you: Temperature Pulse Blood pressure Weight 98.9 degrees 94/minute 155/67 92.5 kg Federica Leyla MORENO 10/04/2017 10:19 AM Signed Est study patient. Labs completed [facility] this morning. Federica Leyla MORENO Clifford Barakat DO 10/04/2017 1:00 PM Signed [...] stopped after cycle #2. Was seen by reforestation worker at . Biopsy showed myopathy, but etiology [...] specimen was negative for both ER and MN as well as HER-2. I discussed the case with the pathologist today who told me that histologically/morphologically the specimen was consistent with her previous specimen of breast cancer. The pathologist will issue an addendum quantifying ER and MN 0 as well as HER-2 at 0. [...] poorly differentiated carcinoma. See comment. COMMENT Immunohistochemistry ([id number]) does not rule out a breast primary. There is focal perinodal extension of tumor. Clinical correlation is suggested. ANTIBODY / CLONE RESULT Block 1 Mammaglobin (31A5) negative GATA3 (L50-823) positive, rare, dim CK8 (60xnllF09) positive Ki-67 (30-9) positive, moderate to high ER (6F11) negative 0% MN (1E2) negative 0% CK19 (A53-B/A2.26) positive Cyclin [...] No jaundice or rash. No petechiae. 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 No focal motor weakness. MUSCULOSKELETAL: No muscle wasting. ASSESSMENT/PLAN: 1) pT1c (1.6 cm; grade 3; no AL invasion) pN0(sn) MX ER/MN negative HER2 non-amplified invasive ductal carcinoma of [...] Clifford Barakat DO Referring Provider: CLIFFORD BARAKAT [[id number]] Allergies As of Date: 10/04/2017 (No Known [...] Supraclavicular lymphadenopathy [R59.0] Order(s):NM BONE WHOLE BODY [[id number]] Order #: [id number] FUTURE CT NECK SOFT TISSUE W IVCON [[id number]] Order #: [id number] FUTURE iv contrast (will be provided with [...] More... HYPERLIPIDEMIA NEC/NOS [E78.5] INVALID FOR* FIBROMYALGIA [[id number]] INVALID FOR* Priority: Moderate OVERWEIGHT [E66.9] INVALID [...] FOR* Visit Notes: >> Federica Pimentel LPN TueOct 04, 2017 9:28 AM Status: Signed Est study patient. Labs completed [facility] this morning. Federica Pimentel LPN Encounter Status:Closed by CLIFFORD BARAKAT DO on 10/04/17 CBC W/DIFF, AUTOMATED Collected: 10/04/2017 Status: F Source: [place] 8:18 AM [facility] [place] TYPE CODE TESTS RESULT OUT OF [...] Lymph 1.74 Performed By: #### L100.0100 #### [facility] [address] [place], [address] COMPREHENSIVE METABOLIC Collected: 10/04/2017 Status: F Source: [place] [facility] 8:18 AM [facility] [place] TYPE CODE TESTS RESULT OUT OF [...] 5 Performed By: #### L500.4050, L501.5200 #### [facility] [address] [place], [address] MAGNESIUM Collected: 10/04/2017 Status: F Source: [place] 8:18 AM [facility] [place] TYPE CODE TESTS RESULT OUT OF RANGE REFERENCE UNITS LAB L501.5200 1.6-2.6 mg/dL Normal MG 1.7 Performed By: #### L500.4050, L501.5200 #### [facility] [address] [place], [address] HOSP Observed: 10/04/2017 Status: COMPLETED Source: [facility] 12:00 AM [facility] REPOSITORY Patient Update (DANYEL) PEDRO LUIS WILCOX ([id number]) 1970 F Date Time Provider Department 10/04/17 EMRE MCDONOUGH) DANYEL During your visit today, [...] Possible related. 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 She just feels tired. Neuropathy in fingers, denies.? And, no change in lower extremities that is chronic for patient. Arthralgia, denies. ?? Epigastric pain, denies this past cycle. Breathing is better. She has re-scheduled her Echo twice and is scheduled for 10/10/17 at [facility]. She states that she saw Dr. Person and he thinks it is Costochondritis. He has given her some exercises to do. This is all unrelated to study drug per Dr. Barakat. He does still want patient to get Echo. ?? Labs earlier today drawn at [facility]: CBC Hgb 10.6, grade 1, definitely related [...] up Bone Scan with CT's C/A/P to [facility] and add a CT Neck. [...] More... HYPERLIPIDEMIA NEC/NOS [E78.5] INVALID FOR* FIBROMYALGIA [[id number]] INVALID FOR* Priority: Moderate OVERWEIGHT [E66.9] INVALID [...] FOR* Visit Notes: >> Emre (Brittney) Ceasar Francisca Oct 04, 2017 11:14 AM Status: Addendum IRB# [id number]. ?Randomized [...] Possible related. 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 She just feels tired. Neuropathy in fingers, denies.? And, no change in lower extremities that is chronic for patient. Arthralgia, denies. ?? Epigastric pain, denies this past cycle. Breathing is better. She has re-scheduled her Echo twice and is scheduled for 10/10/17 at [facility]. She states that she saw Dr. Person and he thinks it is Costochondritis. He has given her some exercises to do. This is all unrelated to study drug per Dr. Barakat. He does still want patient to get Echo. ?? Labs earlier today drawn at [facility]: CBC Hgb 10.6, grade 1, definitely related [...] up Bone Scan with CT's C/A/P to [facility] and add a CT Neck. [...] 10/04/17 CNPN Observed: 10/04/2017 Status: COMPLETED Source: [facility] 12:00 AM [facility] REPOSITORY Telephone (DANYEL) PEDRO LUIS WILCOX ([id number]) 1970 F Date Time Provider Department 10/04/17 CLIFFORD BARAKAT During your visit today, we recorded the following information about you: Estrella Watkins PSR 10/04/2017 11:[address] Barakat's OV today (10/04/17), this PSR contacted [facility] and rescheduled PT's CT for the earliest date of 10/13 @ 1:00 PM with a 4 hour fast and added the neck CT to the existing order. Additionally scheduled the whole body bone scan at [facility] on 10/06 with an 8:00 AM Dose [...] used as an established complex visit please. Clifford Barakat, DO Norah Chavis Psr 10/04/2017 3:17 PM Signed Patient has been scheduled as requested by for Tuesday10/11/17 @ 2:00 pm, should I contact patient about this appointment? Norah Bustillosr Emre Mcdonough RN 10/04/2017 3:27 PM Signed Yes, please contact patient just in case it doesn't work for her. She is expecting the call. BRITTNEY Ruby 10/04/2017 5:03 PM Signed I called and left Laney a detailed message regarding this appointment and [...] More... HYPERLIPIDEMIA NEC/NOS [E78.5] INVALID FOR* FIBROMYALGIA [[id number]] INVALID FOR* Priority: Moderate OVERWEIGHT [E66.9] INVALID [...] 10/04/17 PROGRESS Observed: 09/13/2017 Status: COMPLETED Source: [facility] 12:43 PM [facility] REPOSITORY HNO ID: [id number] Author: Clifford Barakat Service: (none) Author Type: [...] stopped after cycle #2. Was seen by reforestation worker at . Biopsy showed myopathy, but etiology [...] specimen was negative for both ER and MN as well as HER- 2. I discussed the case with the pathologist today who told me that histologically/morphologically the specimen was consistent with her previous specimen of breast cancer. The pathologist will issue an addendum quantifying ER and MN 0 as well as HER-2 at 0. [...] poorly differentiated carcinoma. See comment. COMMENT Immunohistochemistry ([id number]) does not rule out a breast primary. There is focal perinodal extension of tumor. Clinical correlation is suggested. ANTIBODY / CLONE RESULT Block 1 Mammaglobin (31A5) negative GATA3 (L50-823) positive, rare, dim CK8 (50jfofA19) positive Ki-67 (30-9) positive, moderate to high ER (6F11) negative 0% MN (1E2) negative 0% CK19 (A53-B/A2.26) positive Cyclin [...] No jaundice or rash. No petechiae. 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 No focal motor weakness. MUSCULOSKELETAL: No muscle wasting. ASSESSMENT/PLAN: 1) pT1c (1.6 cm; grade 3; no AL invasion) pN0(sn) MX ER/MN negative HER2 non-amplified invasive ductal carcinoma of [...] also performed. She was seen by a assistant center manager and was given reassurance that there were [...] DO CNOVSP Observed: 09/13/2017 Status: COMPLETED Source: [facility] 11:50 AM [facility] REPOSITORY Visit (SP) Office (DANYEL) PEDRO LUIS WILCOX ([id number]) 1970 F Date Time Provider Department 09/13/17 [...] stopped after cycle #2. Was seen by reforestation worker at . Biopsy showed myopathy, but etiology [...] specimen was negative for both ER and MN as well as HER-2. I discussed the case with the pathologist today who told me that histologically/morphologically the specimen was consistent with her previous specimen of breast cancer. The pathologist will issue an addendum quantifying ER and MN 0 as well as HER-2 at 0. [...] poorly differentiated carcinoma. See comment. COMMENT Immunohistochemistry ([id number]) does not rule out a breast primary. There is focal perinodal extension of tumor. Clinical correlation is suggested. ANTIBODY / CLONE RESULT Block 1 Mammaglobin (31A5) negative GATA3 (L50-823) positive, rare, dim CK8 (71kvorN28) positive Ki-67 (30-9) positive, moderate to high ER (6F11) negative 0% MN (1E2) negative 0% CK19 (A53-B/A2.26) positive Cyclin [...] No jaundice or rash. No petechiae. 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 No focal motor weakness. MUSCULOSKELETAL: No muscle wasting. ASSESSMENT/PLAN: 1) pT1c (1.6 cm; grade 3; no AL invasion) pN0(sn) MX ER/MN negative HER2 non-amplified invasive ductal carcinoma of [...] also performed. She was seen by a assistant center manager and was given reassurance that there were [...] Clifford Barakat DO Referring Provider: CLIFFORD BARAKAT [[id number]] Allergies As of Date: 09/13/2017 (No Known Allergies) Date Reviewed: 09/13/2017 Reviewed by: Orlando Lanier (Human Resources Operations Specialist) TIFFANIE Langston - Fully Assessed Reason for Visit: Established Patient [175] Primary Visit Diagnosis:Malignant neoplasm of upper-outer quadrant of right breast in female, estrogen receptor negative (HCC) [C50.411, Z17.1] Other Visit Diagnoses:Malignant neoplasm of right breast in female, estrogen receptor negative, unspecified site of breast (HCC) [C50.911, Z17.1] Dyspnea and respiratory abnormalities [R06.00, R06.89] Examination of participant in clinical trial [Z00.6] Order(s):ECHO [[id number]] Order #: [id number]: 1 FUTURE HEMONC COMMUNICATION ORDER [[id number]] Order #: [id number]: 1 CT ABD/PEL W IVCON [[id number]] Order #: [id number] FUTURE CT CHEST W IVCON [[id number]] Order #: [id number] FUTURE [] iv contrast (will be provided [...] UNIT/ML SUBCUTANEOUS SOLUTION >> Orlando Langston LPN, ITFFANIE 09/13/2017 11:57 AM >> ORLANDO LANGSTON September [...] More... HYPERLIPIDEMIA NEC/NOS [E78.5] INVALID FOR* FIBROMYALGIA [LSP7761] INVALID FOR* Priority: Moderate OVERWEIGHT [E66.9] INVALID [...] trial [Z*INVALID FOR* Visit Notes: >> Orlando Monzon) TIFFANIE Langston fozia September 13, 2017 11:58 AM Status: Signed Est pt, discuss recent lab results Orlando Langston LPN Encounter Status:Closed by CLIFFORD BARAKAT DO on 09/13/17 CBC W/DIFF, AUTOMATED Collected: 09/13/2017 Status: F Source: [place] 6:31 AM [facility] [place] TYPE CODE TESTS RESULT OUT OF [...] Lymph 1.88 Performed By: #### L100.0100 #### [facility] [address] [facility]. [place], [place], [address] COMPREHENSIVE METABOLIC Collected: 09/13/2017 Status: F Source: [facility] 6:31 AM [facility] [place] TYPE CODE TESTS RESULT OUT OF [...] 8 Performed By: #### L500.4050, L501.5200 #### [facility] [address] [facility] [place], [address] MAGNESIUM Collected: 09/13/2017 Status: F Source: [place] 6:31 AM [facility] [place] TYPE CODE TESTS RESULT OUT OF RANGE REFERENCE UNITS LAB L501.5200 1.6-2.6 mg/dL Low MG 1.5 Performed By: #### L500.4050, L501.5200 #### [facility] [address] [facility] [place], [address] HOSP Observed: 09/13/2017 Status: COMPLETED Source: [facility] 12:00 AM [facility] REPOSITORY Patient Update (DANYEL) PEDRO LUIS WILCOX ([id number]) 1970 F Date Time Provider Department 09/13/17 EMRE MCDONOUGH (RN) DANYEL During your visit [...] Unrelated. ?? Labs earlier today drawn at [facility]: CBC Hgb 11.4, grade 1, definitely related [...] taken her dose for this am. ? [place] order-- Dr. Roshni stephenson with patient to [...] in 3 weeks with labs prior at [facility] for Cycle #12. Patient agreeable with this [...] More... HYPERLIPIDEMIA NEC/NOS [E78.5] INVALID FOR* FIBROMYALGIA [AWF8316] INVALID FOR* Priority: Moderate OVERWEIGHT [E66.9] INVALID [...] Unrelated. ?? Labs earlier today drawn at [facility]: CBC Hgb 11.4, grade 1, definitely related [...] taken her dose for this am. ? [place] order-- Dr. Roshni stephenson with patient to [...] in 3 weeks with labs prior at [facility] for Cycle #12. Patient agreeable with this plan. She has contact numbers if she needs anything in the interim. Emre Mcdonough RN Encounter Status:Closed by EMRE MCDONOUGH on 09/20/17 ONCOLOGY HISTORY AND Observed: 09/07/2017 Status: F Source: [facility] [facility] 4:48 PM [facility] [place] [facility] Medical Records Department [address] [place] [address] History and Physical 09/07/17 1529 MR#: [id number] Acct: [id number] Name: PEDRO LUIS WILCOX Rep #: [id number] : 1970 47 From: Garcia Reed MD PCP: Raza VELAZQUEZ,Jacinto Status: DIS RCR Y Location: [facility] Subjective Date of Service:: 09/07/17 Chief Complaint: Wants second opinion about breast cancer management. History of Present Illness: Old records reviewed. 47y.o.woman diagnosed with right breast cancer stage IA in August 2013. 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 She started therapy on a clinical trial involving Cisplatin with PARP inhibitor or placebo. Cisplatin is now discontinued and is tablets Abt-888 or placebo 100mg 4tabs bid x 21 days. She recently had restaging studies done and wants to know what to do. Power of Hand Molder Meat: No Living Will: No Health History: Past Medical History Cancer: Breast cancer Past Medical History (Last Updated 09/07/17 @ 14:07 by Deysi Bautista) [place] node (Acute) Past Surgical History (Last Updated [...] drinking: Has the patient needed an eye stoker mechanic in the mornings: Comments: occasionaly Review of [...] Chronic Code Visit Office Visits / Consults: 58682 OV L5 New 09/07/17 1648 <Electronically signed by Garcia Reed MD> Date Garcia Reed MD Cosigner Signature: Date (if applicable) CC: Jacinto Person MD; Garcia Reed MD Signed 12 LEAD ELECTROCARDIOGRAM Observed: 09/02/2017 Status: F Source: [place] 2:48 PM [facility] [place] [facility] Cardiovascular Services [address] [place] [address] 12 Lead EKG 08/29/17 1213 MR#: [id number] Acct: [id number] Name: PEDRO LUIS WILCOX Rep #: [id number] : 1970 47 From: Eric Blue MD [...] Sinus tachycardia Otherwise normal ECG Confirmed by ERIC BLUE MD ([id number]), sports editor MESSI VIVAR ([id number]) on 09/02/2017 2:48:24 PM Referred By: SHELBY/GRECIA Confirmed By:ERIC BLUE MD 09/02/17 1448 Date Eric Blue MD CC: Johnny Santos MD; Jacinto Person MD Signed EMERGENCY DEPARTMENT Observed: 08/29/2017 Status: F Source: [place] [facility] 3:51 PM [facility] [place] [facility] [facility] Medical Records Department [address] [place] [address] Emergency Department Summary 08/29/17 1207 MR#: [id number] Acct: [id number] Name: PEDRO LUIS WILCOX Rep #: [id number] : 1970 47 From: Johnny Santos MD [...] 1. Confusion--resolved This note was generated with [employer] software. It may contain incorrect words, spelling, [...] problems, contact your Primary Care Provider. Call [facility] ([phone]) or report to the closest Emergency Room. Call 911 if necessary. 08/29/17 1551 <Electronically signed by Johnny Santos MD> Date Johnny Santos MD Cosigner Signature (If Indicated): Date CC: Jacinto Person MD DISCHARGE INSTRUCTION Observed: 08/29/2017 Status: F Source: [place] 3:51 PM [facility] [place] [facility] Medical Records Department [address] [place] [address] Discharge Instruction 08/29/17 1526 MR#: [id number] Acct: [id number] Name: PEDRO LUIS WILCOX Rep #: [id number] : 1970 47 From: Johnny Santos MD [...] your Primary Care Provider. Call [facility] ([phone]) or report to the closest Emergency Room. Call 911 if necessary. 08/29/17 1551 <Electronically signed by Johnny Santos MD> Date Johnny Santos MD Cosigner Signature (If Indicated): Date CC: Jacinto Person MD BRAIN/HEAD WITHOUT Observed: 08/29/2017 Status: F Source: [place] [facility]AST 12:03 PM [facility] [place] [facility] Imaging Services [address] [place] [address] Brain/Head without Contrast MR#: [id number] Acct: [id number] Name: PEDRO LUIS WILCOX Rep #: [id number] : 1970 F 47 From: Darryl Ford MD PCP: Jacinto Person MD Status: REG ER Study: Brain/Head without Contrast Date of Exam: 08/29/17 Exam# [id number] Ordering Dr: Johnny Santos MD STUDY: CT [...] Darryl Ford MD at 12:59 EDT Tel [phone], Service support , CC: Johnny Santos MD; Jacinto Person MD Storage Battery Charger: Signed CHEST 1 VIEW Observed: 08/29/2017 Status: F Source: [place] 12:03 PM [facility] [place] [facility] Imaging Services [address] [place] [address] Chest 1 View MR#: [id number] Acct: [id number] Name: PEDRO LUIS WILCOX Rep #: [id number] : 1970 F 47 From: Darryl Ford MD PCP: Jacinto Person MD Status: REG ER Study: Chest 1 View Date of Exam: 08/29/17 Exam# [id number] Ordering Dr: Johnny Santos MD STUDY: X-RAY [...] Darryl Ford MD at 13:23 EDT Tel [phone], Service support , CC: Johnny Santos MD; Jacinto Person MD Storage Battery Charger: Signed BEDSIDE GLUCOSE Collected: 08/29/2017 Status: F Source: [place] 12:02 PM [facility] [place] TYPE CODE TESTS RESULT OUT OF REFERENCE UNITS RANGE LAB L501.080 70-110 mg/dL High BEDSIDE GLU 156 Result Comment: MANAGEMENT OF PATIENT CARE PER NURSING PROTOCOL Performed By: #### L501.080 #### [facility] Point of Care [facility] [address] [place], [place] [address] CBC W/DIFF, AUTOMATED Collected: 08/29/2017 Status: F Source: [place] 11:58 AM [facility] [place] [facility] TYPE CODE TESTS RESULT OUT OF [...] Lymph 1.61 Performed By: #### L100.0100 #### [facility] [address] [place], [address] BASIC METABOLIC Collected: 08/29/2017 Status: F Source: [place] [facility] ([facility]) 11:58 AM [facility] [place] [facility] TYPE CODE TESTS RESULT OUT OF [...] 8 Performed By: #### L500.2500, L501.4010 #### [facility] [address] [place], [place], [address] TROPONIN-I Collected: 08/29/2017 Status: F Source: [place] 11:58 AM [facility] [place] [facility] TYPE CODE TESTS RESULT OUT OF RANGE REFERENCE UNITS LAB L501.4010 <0.045 ng/mL Normal < 0.015 TROPONIN-I Result Comment: TROPONIN-I EXPECTED VALUES <0.045 Negative 0.045 - 0.590 Consistent with Cardiac Damage > OR = 0.600 Critical Value Not every elevated troponin is indicative of ME. These values should be used with clinical judgement in examining the patient's clinical picture for diagnosis. To establish a diagnosis of ME versus myocardial injury, there must be a demonstrated rise and/or fall in the troponin values, in addition to ischemic symptoms, EKG changes, new regional wall motion abnormality, and/or angiographical evidence. PLEASE NOTE: REFERENCE RANGES EDITED 17 Performed By: #### L500.2500, L501.4010 #### [facility] [address] [place], [place], [address] PROTHROMBIN TIME W/INR Collected: 08/29/2017 Status: F Source: [place] 11:58 AM [facility] [place] [facility] TYPE CODE TESTS RESULT OUT OF RANGE REFERENCE UNITS LAB L300.4150 11.7-14.9 SECONDS Normal PROTIME 13.0 LAB L300.4200 Normal INR 1.0 Performed By: #### L300.3900, L300.4310 #### [facility] [address] [facility] [address] [place], [address] PARTIAL THROMBOPLAST Collected: 08/29/2017 Status: F Source: [place] TIME 11:58 AM [facility] [place] [facility] TYPE CODE TESTS RESULT OUT OF RANGE REFERENCE UNITS LAB L300.4310 24.1-36.2 Seconds Normal PTT 28.6 Performed By: #### L300.3900, L300.4310 #### [facility] [address] [place], [address] GLUCOSE Collected: 08/29/2017 Status: F Source: [place] 11:10 AM [facility] [place] [facility] Order Comment: FAST GLUCOSE TYPE CODE TESTS RESULT OUT OF RANGE REFERENCE UNITS LAB L501.0100 74-106 mg/dL High GLU 140 Result Comment: Fasting Glucose result greater than or equal to 126 mg/dL suggests DIABETES MELLITUS per A.D.A. criteria. Please note revised GLUCOSE reference range effective 2017. Performed By: #### L501.0100 #### [facility] [address] [place], [address] PET/CT TUMOR BASE Observed: 08/29/2017 Status: F Source: [place] -THIGH SUBS 5:38 AM [facility] [place] Imaging Services [address] [place] [address] PET/CT Tumor Base -Thigh Subs MR#: [id number] Acct: [id number] Name: PEDRO LUIS WILCOX Rep #: [id number] : 1970 F 47 From: Clay Real DO PCP: Jacinto Person MD Status: REG CLI Study: PET/CT Tumor Base -Thigh Subs Date of Exam: 08/29/17 Exam# [id number] Ordering Dr: Clifford Barakat DO ADDENDUM by [...] are not apparent on the current examination. Dqfk-E-Swca-MediPort placement is noted. The prior defined morphologic-anatomic changes noted on CT of the neck, chest, abdomen and pelvis manifest on the FDG PET CT study dated 11/29/16 are essentially unchanged on the present examination. 09/08/17 1207 Date cc: Jacinto Person MD; Clifford Masci DO * Signed EXAMINATION: FDG PET CT [...] are not apparent on the current examination. Vbge-Z-Qhms-MediPort placement is noted. The prior defined morphologic-anatomic [...] CC: Jacinto Person MD; Clifford Barakat DO Storage Battery Charger: Signed PROGRESS Observed: 08/23/2017 Status: COMPLETED Source: [facility] 9:04 AM [facility] REPOSITORY O ID: [id number] Author: Clifford Barakat Service: (none) Author Type: [...] stopped after cycle #2. Was seen by reforestation worker at . Biopsy showed myopathy, but etiology [...] specimen was negative for both ER and MN as well as HER- 2. I discussed the case with the pathologist today who told me that histologically/morphologically the specimen was consistent with her previous specimen of breast cancer. The pathologist will issue an addendum quantifying ER and MN 0 as well as HER-2 at 0. [...] poorly differentiated carcinoma. See comment. COMMENT Immunohistochemistry ([id number]) does not rule out a breast primary. There is focal perinodal extension of tumor. Clinical correlation is suggested. ANTIBODY / CLONE RESULT Block 1 Mammaglobin (31A5) negative GATA3 (L50-823) positive, rare, dim CK8 (93rtmrX09) positive Ki-67 (30-9) positive, moderate to high ER (6F11) negative 0% MN (1E2) negative 0% CK19 (A53-B/A2.26) positive Cyclin [...] No jaundice or rash. No petechiae. 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 No focal motor weakness. MUSCULOSKELETAL: No muscle wasting. ASSESSMENT/PLAN: 1) pT1c (1.6 cm; grade 3; no AL invasion) pN0(sn) MX ER/MN negative HER2 non-amplified invasive ductal carcinoma of [...] drug for now. -PET next Tuesday at [facility]. Clifford Barakat DO CNOVSP Observed: 08/23/2017 Status: COMPLETED Source: [facility] 8:50 AM [facility] REPOSITORY Visit (SP) Office (DANYEL) PEDRO LUIS WILCOX ([id number]) 1970 F Date Time Provider Department 08/23/17 [...] stopped after cycle #2. Was seen by reforestation worker at . Biopsy showed myopathy, but etiology [...] specimen was negative for both ER and MN as well as HER-2. I discussed the case with the pathologist today who told me that histologically/morphologically the specimen was consistent with her previous specimen of breast cancer. The pathologist will issue an addendum quantifying ER and MN 0 as well as HER-2 at 0. [...] poorly differentiated carcinoma. See comment. COMMENT Immunohistochemistry ([id number]) does not rule out a breast primary. There is focal perinodal extension of tumor. Clinical correlation is suggested. ANTIBODY / CLONE RESULT Block 1 Mammaglobin (31A5) negative GATA3 (L50-823) positive, rare, dim CK8 (20mqofT62) positive Ki-67 (30-9) positive, moderate to high ER (6F11) negative 0% MN (1E2) negative 0% CK19 (A53-B/A2.26) positive Cyclin [...] No jaundice or rash. No petechiae. 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 No focal motor weakness. MUSCULOSKELETAL: No muscle wasting. ASSESSMENT/PLAN: 1) pT1c (1.6 cm; grade 3; no AL invasion) pN0(sn) MX ER/MN negative HER2 non-amplified invasive ductal carcinoma of [...] drug for now. -PET next Tuesday at [facility]. Clifford Barakat DO Referring Provider: CLIFFORD BARAKAT [[id number]] Allergies As of Date: 08/23/2017 (No Known Allergies) Date Reviewed: 08/23/2017 Reviewed by: Veronica Harris Ma - Fully Assessed Reason for Visit: Established Patient [175] Primary Visit Diagnosis:Malignant neoplasm of upper-outer quadrant of right breast in female, estrogen receptor negative (HCC) [C50.411, Z17.1] [facility](s[facility] [[id number]] Order #: [id number]: 1 [] INV ABT-888 OR PLACEBO (INV [...] More... HYPERLIPIDEMIA NEC/NOS [E78.5] INVALID FOR* FIBROMYALGIA [[id number]] INVALID FOR* Priority: Moderate OVERWEIGHT [E66.9] INVALID [...] 08/23/2017 Status: F Source: [place] 7:30 AM [facility] [place] Order Comment: MEDOUT/PORT DRAW TYPE CODE [...] Lymph 2.00 Performed By: #### L100.0100 #### [facility] [address] [place], [address] COMPREHENSIVE METABOLIC Collected: 08/23/2017 Status: F Source: [place] [facility] 7:30 AM [facility] [place] Order Comment: MEDOUT/PORT DRAW TYPE CODE [...] 7 Performed By: #### L500.4050, L501.5200 #### [facility] [address] [place], [address] MAGNESIUM Collected: 08/23/2017 Status: F Source: [place] 7:30 AM [facility] [place] [facility] Order Comment: MEDOUT/PORT DRAW TYPE CODE TESTS RESULT OUT OF RANGE REFERENCE UNITS LAB L501.5200 1.6-2.6 mg/dL Low MG 1.5 Performed By: #### L500.4050, L501.5200 #### [facility] [address] [place], [address] HOSP Observed: 08/23/2017 Status: COMPLETED Source: [facility] 12:00 AM [facility] REPOSITORY Patient Update (DANYEL) PEDRO LUIS WILCOX ([id number]) 1970 F Date Time Provider Department 08/23/17 [...] ok. ?? Labs earlier today drawn at [facility]: CBC Hgb 11.1, grade 1, definitely related [...] patient to have a PET scan. ? [place] order-- The patient was given a new [...] in 3 weeks with labs prior at [facility] for Cycle #11. Patient agreeable with this [...] More... HYPERLIPIDEMIA NEC/NOS [E78.5] INVALID FOR* FIBROMYALGIA [[id number]] INVALID FOR* Priority: Moderate OVERWEIGHT [E66.9] INVALID [...] FOR* Visit Notes: >> Emre (Rn) Ceasar TueAugust 24, 2017 12:33 PM Status: [...] ok. ?? Labs earlier today drawn at [facility]: CBC Hgb 11.1, grade 1, definitely related [...] patient to have a PET scan. ? [place] order-- The patient was given a new [...] in 3 weeks with labs prior at [facility] for Cycle #11. Patient agreeable with this plan. She has contact numbers if she needs anything in the interim. ? Emre Mcdonough RN Encounter Status:Closed by EMRE MCDONOUGH on 08/30/17 ABDOMEN/PELVIS WITH Observed: 08/16/2017 Status: F Source: [place] CONTRAST 12:59 PM [facility] [place] [facility] Imaging Services [address] [place] [address] Abdomen/Pelvis WITH Contrast MR#: [id number] Acct: [id number] Name: PEDRO LUIS WILCOX Rep #: [id number] : 1970 F 47 From: Sintia Balderas MD PCP: Jacinto Person MD Status: REG CLI Study: Abdomen/Pelvis WITH Contrast Date of Exam: 08/16/17 Exam# [id number] Ordering Dr: Clifford Barakat DO STUDY: CT [...] CC: Jacinto Person MD; Clifford Barakat DO Storage Battery Charger: Signed CHEST WITH CONTRAST Observed: 08/16/2017 Status: F Source: [place] 12:56 PM [facility] [place] [facility] Imaging Services [address] [place] [address] Chest WITH Contrast MR#: [id number] Acct: [id number] Name: PEDRO LUIS WILCOX Rep #: [id number] : 1970 F 47 From: Sintia Balderas MD PCP: Jacinto Person MD Status: REG CLI Study: Chest WITH Contrast Date of Exam: 08/16/17 Exam# [id number] Ordering Dr: Clifford Barakat DO STUDY: CT [...] CC: Jacinto Person MD; Clifford Barakat DO Storage Battery Charger: Signed BONE SCAN WHOLE Observed: 08/16/2017 Status: F Source: [place] BODY 7:59 AM [facility] [place] [facility] Imaging Services [address] [place] [address] Bone Scan Whole Body MR#: [id number] Acct: [id number] Name: PEDRO LUIS WILCOX Rep #: [id number] : 1970 F 47 From: Clay Real DO PCP: Jacinto Person MD Status: REG CLI Study: Bone Scan Whole Body Date of Exam: 08/16/17 Exam# [id number] Ordering Dr: Clifford Barakat DO CLINICAL: 47-year-old [...] CC: Jacinto Person MD; Clifford Barakat DO Storage Battery Charger: Signed PROGRESS Observed: 08/02/2017 Status: COMPLETED Source: [facility] 12:23 PM [facility] [place] REPOSITORY HNO ID: [id number] Author: Clifford Barakat Service: (none) Author Type: [...] stopped after cycle #2. Was seen by reforestation worker at . Biopsy showed myopathy, but etiology [...] specimen was negative for both ER and MN as well as HER- 2. I discussed the case with the pathologist today who told me that histologically/morphologically the specimen was consistent with her previous specimen of breast cancer. The pathologist will issue an addendum quantifying ER and MN 0 as well as HER-2 at 0. [...] poorly differentiated carcinoma. See comment. COMMENT Immunohistochemistry ([id number]) does not rule out a breast primary. There is focal perinodal extension of tumor. Clinical correlation is suggested. ANTIBODY / CLONE RESULT Block 1 Mammaglobin (31A5) negative GATA3 (L50-823) positive, rare, dim CK8 (66osbpE60) positive Ki-67 (30-9) positive, moderate to high ER (6F11) negative 0% MN (1E2) negative 0% CK19 (A53-B/A2.26) positive Cyclin [...] No jaundice or rash. No petechiae. 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 No focal motor weakness. MUSCULOSKELETAL: No muscle wasting. No tenderness over the greater trochanters bilaterally. ASSESSMENT/PLAN: 1) pT1c (1.6 cm; grade 3; no AL invasion) pN0(sn) MX ER/MN negative HER2 non-amplified invasive ductal carcinoma of [...] DO CNOVSP Observed: 08/02/2017 Status: COMPLETED Source: [facility] 11:50 AM [facility] REPOSITORY Visit (SP) Office (DANYEL) PEDRO LUIS WILCOX ([id number]) 1970 F Date Time Provider Department 08/02/17 11:50 AM CLIFFORD BARAKAT During your visit today, we recorded the following information about you: Temperature Pulse Blood pressure Weight 98.2 degrees 112/minute 117/58 92.5 kg Orlando Langston (Tiffanie), TIFFANIE 08/02/2017 12:11 PM Signed Est pt, discuss recent lab results. , study pt. Orlando Langston, SR. [employer] Clifford Barakat 08/02/2017 1:21 PM Signed Diagnosis: 1) Breast [...] stopped after cycle #2. Was seen by reforestation worker at . Biopsy showed myopathy, but etiology [...] specimen was negative for both ER and MN as well as HER-2. I discussed the case with the pathologist today who told me that histologically/morphologically the specimen was consistent with her previous specimen of breast cancer. The pathologist will issue an addendum quantifying ER and MN 0 as well as HER-2 at 0. [...] poorly differentiated carcinoma. See comment. COMMENT Immunohistochemistry ([id number]) does not rule out a breast primary. There is focal perinodal extension of tumor. Clinical correlation is suggested. ANTIBODY / CLONE RESULT Block 1 Mammaglobin (31A5) negative GATA3 (L50-823) positive, rare, dim CK8 (37jnqrZ13) positive Ki-67 (30-9) positive, moderate to high ER (6F11) negative 0% MN (1E2) negative 0% CK19 (A53-B/A2.26) positive Cyclin [...] No jaundice or rash. No petechiae. 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 No focal motor weakness. MUSCULOSKELETAL: No muscle wasting. No tenderness over the greater trochanters bilaterally. 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 HYPERLIPIDEMIA NEC/NOS [E78.5] INVALID FOR* FIBROMYALGIA [[id number]] INVALID FOR* Priority: Moderate OVERWEIGHT [E66.9] INVALID [...] [Z*INVALID FOR* Visit Notes: >> Orlando Langston Lpn, TIFFANIE Espinosa Aug 02, 2017 11:57 AM Status: Signed Est pt, discuss recent lab results. , study pt. Orlando Langston LPN Encounter Status:Closed by CLIFFORD BARAKAT DO on 08/02/17 CBC W/DIFF, AUTOMATED Collected: 08/02/2017 Status: F Source: [place] 9:10 AM [facility] [place] TYPE CODE TESTS RESULT OUT OF [...] Lymph 1.48 Performed By: #### L100.0100 #### [facility] [place], [address] COMPREHENSIVE METABOLIC Collected: 08/02/2017 Status: F Source: [place] 9:10 AM [facility] [place] [facility] TYPE CODE TESTS RESULT OUT OF [...] Performed By: #### L500.4050, L501.5200, L501.9520 #### [facility] [place], [address] MAGNESIUM Collected: 08/02/2017 Status: F Source: [place] 9:10 AM [facility] [place] TYPE CODE TESTS RESULT OUT OF RANGE REFERENCE UNITS LAB L501.5200 1.6-2.6 mg/dL Low MG 1.5 Performed By: #### L500.4050, L501.5200, L501.9520 #### [facility] [address] [place], [address] THYROID STIM HORMONE Collected: 08/02/2017 Status: F Source: [place] ([facility]) 9:10 AM [facility] [place] TYPE CODE TESTS RESULT OUT OF RANGE REFERENCE UNITS LAB L501.9520 0.358-3.74 uIU/mL Normal TSH 0.71 Performed By: #### L500.4050, L501.5200, L501.9520 #### [facility] [address] [place], [address] VITAMIN B12 Collected: 08/02/2017 Status: F Source: [place] 9:10 AM [facility] [place] TYPE CODE TESTS RESULT OUT OF RANGE REFERENCE UNITS LAB L503.0105 211-911 pg/mL Normal Vitamin B12 678 Performed By: #### L503.0105 #### [facility] [address] [place], [address] HOSP Observed: 08/02/2017 Status: COMPLETED Source: [facility] 12:00 AM [facility] REPOSITORY Patient Update (HEMNIKOLE) PEDRO LUIS WILCOX ([id number]) 1970 F Date Time Provider Department 08/02/17 [...] rest. ?? Labs earlier today drawn at [facility]: CBC Hgb 11.4, grade 1, definitely related [...] will bring them to clinic tomorrow. ?? [place] order-- Dr. aBrakat ok to give patient the next cycle [...] in 3 weeks with labs prior at [facility] for Cycle #10 (08/23/17). Patient also given order for CT C/A/P and bone scan to be done at [facility] (per insurance) prior to visit. Patient aware [...] Date Reviewed: 08/02/2017 Reviewed by: Orlando Lanier ([facility]) TIFFANIE Langston - Fully Assessed Reason for [...] More... HYPERLIPIDEMIA NEC/NOS [E78.5] INVALID FOR* FIBROMYALGIA [[id number]] INVALID FOR* Priority: Moderate OVERWEIGHT [E66.9] INVALID [...] FOR* Visit Notes: >> Emre (Rn) Ceasar Cardozafozia Aug 02, 2017 4:28 PM Status: Signed [...] rest. ?? Labs earlier today drawn at [facility]: CBC Hgb 11.4, grade 1, definitely related [...] will bring them to clinic tomorrow. ?? [place] order-- Dr. Barakat ok to give patient [...] in 3 weeks with labs prior at [facility] for Cycle #10 (08/23/17). Patient also given order for CT C/A/P and bone scan to be done at [facility] (per insurance) prior to visit. Patient aware needs scheduled within the 7 days prior to 08/23/17. Patient agreeable with this plan. She has contact numbers if she needs anything in the interim. Emre Mcdonough RN >> Emre Jacobson) Ceasar TueAug 03, 2017 9:27 AM [...] 08/03/17 HOSP Observed: 07/22/2017 Status: COMPLETED Source: [facility] 12:00 AM [facility] REPOSITORY Patient Update (DANYEL) PEDRO LUIS WILCOX ([id number]) 1970 F Date Time Provider Department 07/22/17 [...] days as dispensed by the pharmacy and [place] order. This will provide her enough pills [...] More... HYPERLIPIDEMIA NEC/NOS [E78.5] INVALID FOR* FIBROMYALGIA [ENH0528] INVALID FOR* Priority: Moderate OVERWEIGHT [E66.9] INVALID [...] days as dispensed by the pharmacy and [place] order. This will provide her enough pills to get to next appointment on increased dose. Patient states that she is tolerating the increase dose so far without any issues. Patient has upcoming appointment times and has contact information for any needs/concerns in the interim. Emre Mcdonough RN Encounter Status:Closed by ERME MCDONOUGH on 07/22/17 CNCO Observed: 07/22/2017 Status: COMPLETED Source: [facility] 12:00 AM [facility] REPOSITORY Letter Text Clifford Barakat DO Hematology AND Medical Oncology/[address] [place] [address] [place], [place] [address] July 22, 2017 Pedro Luis Wilcox To [...] DO HOSP Observed: 07/19/2017 Status: COMPLETED Source: [facility] 12:00 AM [facility] REPOSITORY Patient Update (DANYEL) PEDRO LUIS WILCOX ([id number]) 1970 F Date Time Provider Department 07/19/17 EMRE MCDONOUGH) DANYEL During your visit today, we recorded the following information about you: Emre Mcdonough RN 07/19/2017 3:59 PM Signed Late Note for 07/18/17: Patient in and picking supervisor a new bottle of Veliparib vs Placebo [...] More... HYPERLIPIDEMIA NEC/NOS [E78.5] INVALID FOR* FIBROMYALGIA [[id number]] INVALID FOR* Priority: Moderate OVERWEIGHT [E66.9] INVALID [...] Late Note for 07/18/17: Patient in and picking supervisor a new bottle of Veliparib vs Placebo 100mg, with 64 capsules as dispensed by the pharmacy. Patient denies any issues or new concerns. Emre Mcdonough RN Encounter Status:Closed by EMRE MCDONOUGH on 07/19/17 HOSP Observed: 07/19/2017 Status: COMPLETED Source: [place] 12:00 AM [facility] REPOSITORY Patient Update (DANYEL) PEDRO LUIS WILCOX ([id number]) 1970 F Date Time Provider Department 07/19/17 [...] she will come in this week to picking supervisor another bottle to get to appointment on 08/02/17. Christ in pharmacy aware. [place] order sent to Dr. Barakat and signed. She has also asked for port flush order for [facility]. She would like to picking supervisor at the same time. Dr. Barakat aware [...] More... HYPERLIPIDEMIA NEC/NOS [E78.5] INVALID FOR* FIBROMYALGIA [[id number]] INVALID FOR* Priority: Moderate OVERWEIGHT [E66.9] INVALID [...] she will come in this week to picking supervisor another bottle to get to appointment on 08/02/17. [place] in pharmacy aware. [place] order sent to Dr. Barakat and signed. She has also asked for port flush order for [facility]. She would like to picking supervisor at the same time. Dr. Barakat aware and orders signed. Emre Mcdonough RN Encounter Status:Closed by EMRE MCDONOUGH on 07/21/17 CNOVS Observed: 07/12/2017 Status: COMPLETED Source: [facility] 4:00 PM [facility] REPOSITORY Visit (SP) Office (DANYEL) PEDRO LUIS WILCOX ([id number]) 1970 F Date Time Provider Department 07/12/17 [...] after cycle #2. ? Was seen by reforestation worker at . Biopsy showed myopathy, but etiology [...] specimen was negative for both ER and MN as well as HER-2. I discussed the case with the pathologist today who told me that histologically/morphologically the specimen was consistent with her previous specimen of breast cancer. The pathologist will issue an addendum quantifying ER and MN 0 as well as HER-2 at 0. [...] poorly differentiated carcinoma. See comment. COMMENT Immunohistochemistry ([id number]) does not rule out a breast primary. There is focal perinodal extension of tumor. Clinical correlation is suggested. ? ANTIBODY / CLONE RESULT Block 1 Mammaglobin (31A5) negative GATA3 (L50-823) positive, rare, dim CK8 (36uudwR27) positive Ki-67 (30-9) positive, moderate to high ER (6F11) negative 0% MN (1E2) negative 0% CK19 (A53-B/A2.26) positive Cyclin [...] No jaundice or rash. No petechiae. 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 No focal motor weakness. MUSCULOSKELETAL: No muscle wasting. No tenderness over the greater trochanters bilaterally. ? LABS: Review per protocol. ASSESSMENT/PLAN: 1) pT1c (1.6 cm; grade 3; no AL invasion) pN0(sn) MX ER/MN negative HER2 non-amplified invasive ductal carcinoma of [...] Dr. Jacinto Person Referring Provider: CLIFFORD BARAKAT [[id number]] Allergies As of Date: 07/12/2017 (No Known Allergies) Date Reviewed: 07/12/2017 Reviewed by: Veronica Harris - Fully Assessed Reason for Visit: Established Patient [175] Primary Visit Diagnosis:Malignant neoplasm of upper-outer quadrant of right breast in female, estrogen receptor negative (HCC) [C50.411, Z17.1] Other Visit Diagnoses:Examination of participant in clinical trial [Z00.6] Neuropathy (HCC) [G62.9] Order(s):[facility] COMMUNICATION ORDER [[id number]] Order #: [id number]: 1 HEMONC NURSING COMMUNICATION [[id number]] Order #: [id number]: 1 STANDING HEMONC NURSING COMMUNICATION [[id number]] Order #: [id number]: 1 STANDING HEMONC NURSING COMMUNICATION [5952734] Order #: [id number]: 1 STANDING HEMONC NURSING COMMUNICATION [[id number]] Order #: [id number]: 1 STANDING HEMONC NURSING COMMUNICATION [[id number]] Order #: [id number]: 1 STANDING Level of Service: EST PATIENT VISIT LEVEL 3 [91813] Disposition: Return in about 3 weeks (around [...] More... HYPERLIPIDEMIA NEC/NOS [E78.5] INVALID FOR* FIBROMYALGIA [[id number]] INVALID FOR* Priority: Moderate OVERWEIGHT [E66.9] INVALID [...] 07/13/17 PROGRESS Observed: 07/12/2017 Status: COMPLETED Source: [facility] 3:59 PM [facility] REPOSITORY O ID: [id number] Author: Arabella Donovan Service: (none) Author Type: [...] after cycle #2. ? Was seen by reforestation worker at . Biopsy showed myopathy, but etiology [...] specimen was negative for both ER and MN as well as HER- 2. I discussed the case with the pathologist today who told me that histologically/morphologically the specimen was consistent with her previous specimen of breast cancer. The pathologist will issue an addendum quantifying ER and MN 0 as well as HER-2 at 0. [...] poorly differentiated carcinoma. See comment. COMMENT Immunohistochemistry ([id number]) does not rule out a breast primary. There is focal perinodal extension of tumor. Clinical correlation is suggested. ? ANTIBODY / CLONE RESULT Block 1 Mammaglobin (31A5) negative GATA3 (L50-823) positive, rare, dim CK8 (61wcgzH65) positive Ki-67 (30-9) positive, moderate to high ER (6F11) negative 0% MN (1E2) negative 0% CK19 (A53-B/A2.26) positive Cyclin [...] No jaundice or rash. No petechiae. 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 No focal motor weakness. MUSCULOSKELETAL: No muscle wasting. No tenderness over the greater trochanters bilaterally. ? LABS: Review per protocol. ASSESSMENT/PLAN: 1) pT1c (1.6 cm; grade 3; no AL invasion) pN0(sn) MX ER/MN negative HER2 non-amplified invasive ductal carcinoma of [...] Arabella Donovan MD Cc: Dr. Jacinto Person CBC W/DIFF, AUTOMATED Collected: 07/12/2017 Status: F Source: [place] 9:08 AM [facility] [place] TYPE CODE TESTS RESULT OUT OF [...] Lymph 1.76 Performed By: #### L100.0100 #### [facility] [address] [place], [place], [address] COMPREHENSIVE METABOLIC Collected: 07/12/2017 Status: F Source: [facility] 9:08 AM [facility] [place] [facility] TYPE CODE TESTS RESULT OUT OF [...] 5 Performed By: #### L500.4050, L501.5200 #### [facility] [address] [place], [address] MAGNESIUM Collected: 07/12/2017 Status: F Source: [place] 9:08 AM [facility] [place] [facility] TYPE CODE TESTS RESULT OUT OF RANGE REFERENCE UNITS LAB L501.5200 1.6-2.6 mg/dL Normal MG 1.7 Result Comment: Please note revised Magnesium reference range effective 2017. Performed By: #### L500.4050, L501.5200 #### [facility] [address] [facility] [address] [place], [address] HOSP Observed: 07/12/2017 Status: COMPLETED Source: [facility] 12:00 AM [facility] REPOSITORY Patient Update (DANYEL) PEDRO LUIS WILCOX ([id number]) 1970 F Date Time Provider Department 07/12/17 EMRE MCDONOUGH) DANYEL During your visit today, [...] good. ?? Labs earlier today drawn at [facility]: CBC Hgb 11.1, grade 1, definitely related [...] with study medication self administration. ? ? [place] order-- The patient was given a new study medication diary and the current?bottles?of Veliparib vs Placebo with 35?capsules remaining. Unable to give a new bottle with 64 capsules as pharmacist not available at end of patient's appointment. 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 Per pill count, patient has [...] in 3 weeks with labs prior at [facility] for Cycle #9. Patient agreeable with this [...] More... HYPERLIPIDEMIA NEC/NOS [E78.5] INVALID FOR* FIBROMYALGIA [LWZ2016] INVALID FOR* Priority: Moderate OVERWEIGHT [E66.9] INVALID [...] Visit Notes: >> Emre (Brittney) Ceasar TueJul 13, 2017 3:21 PM Status: [...] good. ?? Labs earlier today drawn at [facility]: CBC Hgb 11.1, grade 1, definitely related [...] with study medication self administration. ? ? [place] order-- The patient was given a new study medication diary and the current?bottles?of Veliparib vs Placebo with 35?capsules remaining. Unable to give a new bottle with 64 capsules as pharmacist not available at end of patient's appointment. 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 Per pill count, patient has [...] in 3 weeks with labs prior at [facility] for Cycle #9. Patient agreeable with this plan. She has contact numbers if she needs anything in the interim. Emre Mcdonough RN Medications Discontinued During This Encounter INV ABT-888 OR PLACEBO (INV S1416/17* 07/12/2017 07/13/2017 Route: ORAL Sig: Disc: Auto DC at discharge. Encounter Status:Closed by EMRE MCDONOUGH on 07/13/17 PROGRESS Observed: 06/21/2017 Status: COMPLETED Source: [facility] 12:34 PM [facility] REPOSITORY O ID: [id number] Author: Clifford Barakat Service: (none) Author Type: [...] stopped after cycle #2. Was seen by reforestation worker at . Biopsy showed myopathy, but etiology [...] specimen was negative for both ER and MN as well as HER- 2. I discussed the case with the pathologist today who told me that histologically/morphologically the specimen was consistent with her previous specimen of breast cancer. The pathologist will issue an addendum quantifying ER and MN 0 as well as HER-2 at 0. [...] poorly differentiated carcinoma. See comment. COMMENT Immunohistochemistry ([id number]) does not rule out a breast primary. There is focal perinodal extension of tumor. Clinical correlation is suggested. ANTIBODY / CLONE RESULT Block 1 Mammaglobin (31A5) negative GATA3 (L50-823) positive, rare, dim CK8 (48vklyD00) positive Ki-67 (30-9) positive, moderate to high ER (6F11) negative 0% MN (1E2) negative 0% CK19 (A53-B/A2.26) positive Cyclin [...] No jaundice or rash. No petechiae. 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 No focal motor weakness. MUSCULOSKELETAL: No muscle wasting. No tenderness over the greater trochanters bilaterally. ASSESSMENT/PLAN: 1) pT1c (1.6 cm; grade 3; no AL invasion) pN0(sn) MX ER/MN negative HER2 non-amplified invasive ductal carcinoma of [...] DO CNOVSP Observed: 06/21/2017 Status: COMPLETED Source: [facility] 11:30 AM [facility] REPOSITORY Visit (SP) Office (DANYEL) PEDRO LUIS WILCOX ([id number]) 1970 F Date Time Provider Department 06/21/17 [...] stopped after cycle #2. Was seen by reforestation worker at . Biopsy showed myopathy, but etiology [...] specimen was negative for both ER and MN as well as HER-2. I discussed the case with the pathologist today who told me that histologically/morphologically the specimen was consistent with her previous specimen of breast cancer. The pathologist will issue an addendum quantifying ER and MN 0 as well as HER-2 at 0. [...] poorly differentiated carcinoma. See comment. COMMENT Immunohistochemistry ([id number]) does not rule out a breast primary. There is focal perinodal extension of tumor. Clinical correlation is suggested. ANTIBODY / CLONE RESULT Block 1 Mammaglobin (31A5) negative GATA3 (L50-823) positive, rare, dim CK8 (52uzmdZ86) positive Ki-67 (30-9) positive, moderate to high ER (6F11) negative 0% MN (1E2) negative 0% CK19 (A53-B/A2.26) positive Cyclin [...] No jaundice or rash. No petechiae. 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 No focal motor weakness. MUSCULOSKELETAL: No muscle wasting. No tenderness over the greater trochanters bilaterally. 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) [C78.02] Examination of participant in clinical trial [Z00.6] Order(s):HEMONC NURSING COMMUNICATION [[id number]] Order #: [id number]: 1 STANDING HEMONC NURSING COMMUNICATION [[id number]] Order #: [id number]: 1 STANDING HEMONC NURSING COMMUNICATION [[id number]] Order #: [id number]: 1 STANDING HEMONC NURSING COMMUNICATION [[id number]] Order #: [id number]: 1 STANDING HEMONC NURSING COMMUNICATION [[id number]] Order #: [id number]: 1 STANDING HEMONC COMMUNICATION ORDER [[id number]] Order #: [id number]: 1 Follow-up and Disposition History Recorded Prescriptions [...] LPN, LPN 06/21/2017 11:23 AM >> ORLANDO LANGSTONfozia Jun 21, 2017 11:23 AM No longer has rx Problem List As Of Date 06/21/2017 Noted Resolved THYROID NODULE [E04.1] INVALID FOR* More... Anxiety State, Unspecified [F41.1] 01/22/2009 Depressive Disorder, not Elsewhere Classified [* Priority: Moderate More... DM w/o complication type II, uncontrolled [E11.*INVALID FOR* Priority: Severe More... Other Malaise and Fatigue [R53.81, R53.83] INVALID FOR*01/22/2009 More... HYPERLIPIDEMIA NEC/NOS [E78.5] INVALID FOR* FIBROMYALGIA [RDQ5232] INVALID FOR* Priority: Moderate OVERWEIGHT [E66.9] INVALID [...] W/DIFF, AUTOMATED Collected: 06/21/2017 Status: F Source: [place] 9:16 AM [facility] [place] TYPE CODE TESTS RESULT OUT OF [...] Lymph 1.76 Performed By: #### L100.0100 #### [facility] [address] [place], [address] COMPREHENSIVE METABOLIC Collected: 06/21/2017 Status: F Source: [facility] 9:16 AM [facility] [place] TYPE CODE TESTS RESULT OUT OF [...] 6 Performed By: #### L500.4050, L501.5200 #### [facility] [address] [place], [place], [address] MAGNESIUM Collected: 06/21/2017 Status: F Source: [place] 9:16 AM [facility] [place] TYPE CODE TESTS RESULT OUT OF RANGE REFERENCE UNITS LAB L501.5200 1.6-2.6 mg/dL Normal MG 1.8 Result Comment: Please note revised Magnesium reference range effective 2017. Performed By: #### L500.4050, L501.5200 #### [facility] [address] [place], [address] HIPS B/L MIN 2 Observed: 06/21/2017 Status: F Source: [place] VIEWS W/ PELVIS 8:36 AM [facility] [place] [facility] Imaging Services [address] [place] [address] Hips B/L min 2 views w/ Pelvis MR#: [id number] Acct: [id number] Name: PEDRO LUIS WILCOX Rep #: [id number] : 1970 F 47 From: Ruperto Sahu MD PCP: Jacinto Person MD Status: REG CLI Study: Hips B/L min 2 views w/ Pelvis Date of Exam: 06/21/17 Exam# [id number] Ordering Dr: Clifford Barakat DO STUDY: X-RAY [...] CC: Jacinto Person MD; Clifford Barakat DO Storage Battery Charger: Signed HOSP Observed: 06/21/2017 Status: COMPLETED Source: [facility] 12:00 AM [facility] REPOSITORY Patient Update (HEMAWS) PEDRO LUIS WILCOX ([id number]) 1970 F Date Time Provider Department 06/21/17 EMRE MCDONOUGH (BRITTNEY) DANYEL During your visit [...] good. ?? Labs earlier today drawn at [facility]: CBC Hgb 11.3, grade 1, definitely related [...] in measurements of non-measurable disease. Stable disease. (non-CR/non-MN) [place] order-- The patient was given a new [...] in 3 weeks with labs prior at [facility] for Cycle #8. Patient agreeable with this [...] More... HYPERLIPIDEMIA NEC/NOS [E78.5] INVALID FOR* FIBROMYALGIA [IMC9104] INVALID FOR* Priority: Moderate OVERWEIGHT [E66.9] INVALID [...] good. ?? Labs earlier today drawn at [facility]: CBC Hgb 11.3, grade 1, definitely related [...] in measurements of non-measurable disease. Stable disease. (non-CR/non-MN) [place] order-- The patient was given a new [...] in 3 weeks with labs prior at [facility] for Cycle #8. Patient agreeable with this plan. She has contact numbers if she needs anything in the interim. Emre Mcdonough RN Encounter Status:Closed by EMRE MCDONOUGH on 06/21/17 CHEST WITH CONTRAST Observed: 06/20/2017 Status: F Source: [place] 1:29 PM [facility] [place] [facility] Imaging Services [address] [place] [address] Chest WITH Contrast MR#: [id number] Acct: [id number] Name: PEDRO LUIS WILCOX Rep #: [id number] : 1970 F 47 From: Darryl Ford MD PCP: Jacinto Person MD Status: REG CLI Study: Chest WITH Contrast Date of Exam: 06/20/17 Exam# [id number] Ordering Dr: Clifford Barakat DO STUDY: CT [...] Darryl Ford MD at 14:48 EST Tel [phone], Service support , CC: Jacinto Person MD; Clifford Barakat DO Storage Battery Charger: Signed ABDOMEN/PELVIS WITH Observed: 06/20/2017 Status: F Source: [place] CONTRAST 1:29 PM [facility] [place] [facility] Imaging Services [address] [place] [address] Abdomen/Pelvis WITH Contrast MR#: [id number] Acct: [id number] Name: PEDRO LUIS WILCOX Rep #: [id number] : 1970 F 47 From: Darrly Ford MD PCP: Jacinto Person MD Status: REG CLI Study: Abdomen/Pelvis WITH Contrast Date of Exam: 06/20/17 Exam# [id number] Ordering Dr: Clifford Barakat DO STUDY: CT [...] Darryl Ford MD at 14:52 EST Tel [phone], Service support , CC: Jacinto Person MD; Clifford Barakat DO Storage Battery Charger: Signed HOSP Observed: 06/13/2017 Status: COMPLETED Source: [facility] 12:00 AM [facility] REPOSITORY Patient Update (DANYEL) PEDRO LUIS WILCOX ([id number]) 1970 F Date Time Provider Department 06/13/17 EMRE MCDONOUGH) DANYEL During your visit today, we recorded the following information about you: Emre Mcdonough RN 06/13/2017 4:31 PM Signed Clinical Trial Note for S1416: Patient in today picking supervisor 2nd bottle of pills for Cycle #6. Patient states that she has been compliant with study medication except she took last pills last pm and did not have any for this am dose. The patient was given a new bottle?of Veliparib vs Placebo with 64 capsules as dispensed by the pharmacy. See [place] documentation by pharmacy. Patient will restart study [...] More... HYPERLIPIDEMIA NEC/NOS [E78.5] INVALID FOR* FIBROMYALGIA [WHN8332] INVALID FOR* Priority: Moderate OVERWEIGHT [E66.9] INVALID [...] Trial Note for S1416: Patient in today picking supervisor 2nd bottle of pills for Cycle #6. Patient states that she has been compliant with study medication except she took last pills last pm and did not have any for this am dose. The patient was given a new bottle?of Veliparib vs Placebo with 64 capsules as dispensed by the pharmacy. See [place] documentation by pharmacy. Patient will restart study medication tonight. Patient denies any issues or concerns at this time. States she feels good. Reminded of appointment times. Emre Mcdonough RN Encounter Status:Closed by EMRE MCDONOUGH on 06/13/17 BONE SCAN WHOLE Observed: 06/09/2017 Status: F Source: [place] 9:27 AM [facility] [place] [facility] Imaging Services [address] [place] [address] Bone Scan Whole Body MR#: [id number] Acct: [id number] Name: PEDRO LUIS WILCOX Rep #: [id number] : 1970 F 47 From: Clay Real DO PCP: Raza VELAZQUEZ,Jacinto Status: REG CLI Study: Bone Scan Whole Body Date of Exam: 06/09/17 Exam# [id number] Ordering Dr: Clifford Barakat DO CLINICAL: 47-year-old [...] CC: Jacinto Person MD; Clifford Barakat DO Storage Battery Charger: Signed PROGRESS Observed: 06/01/2017 Status: COMPLETED Source: [facility] 10:35 AM [facility] REPOSITORY O ID: [id number] Author: Isha Servin (Sw) Service: (none) Author Type: Aircraft Painter Type: Progress Notes Filed: 06/01/2017 10:36 AM [...] needed F/U APPOINTMENT: ANNAMARIA Nunez PROGRESS Observed: 06/01/2017 Status: COMPLETED Source: [facility] 9:43 AM [facility] REPOSITORY HNO ID: [id number] Author: Clifford Barakat Service: (none) Author Type: [...] stopped after cycle #2. Was seen by reforestation worker at . Biopsy showed myopathy, but etiology [...] specimen was negative for both ER and MN as well as HER- 2. I discussed the case with the pathologist today who told me that histologically/morphologically the specimen was consistent with her previous specimen of breast cancer. The pathologist will issue an addendum quantifying ER and MN 0 as well as HER-2 at 0. [...] poorly differentiated carcinoma. See comment. COMMENT Immunohistochemistry ([id number]) does not rule out a breast primary. There is focal perinodal extension of tumor. Clinical correlation is suggested. ANTIBODY / CLONE RESULT Block 1 Mammaglobin (31A5) negative GATA3 (L50-823) positive, rare, dim CK8 (04mjfeV39) positive Ki-67 (30-9) positive, moderate to high ER (6F11) negative 0% MN (1E2) negative 0% CK19 (A53-B/A2.26) positive Cyclin [...] chronic symptom. She finds oftentimes shows to [employer] Walk around long distances and she ends [...] No jaundice or rash. No petechiae. 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 No focal motor weakness. MUSCULOSKELETAL: No muscle wasting. No tenderness over the greater trochanters bilaterally. ASSESSMENT/PLAN: 1) pT1c (1.6 cm; grade 3; no AL invasion) pN0(sn) MX ER/MN negative HER2 non-amplified invasive ductal carcinoma of [...] DO CNOVSP Observed: 06/01/2017 Status: COMPLETED Source: [facility] 9:10 AM [facility] REPOSITORY Visit (SP) Office (DANYEL) PEDRO LUIS WILCOX ([id number]) 1970 F Date Time Provider Department 06/01/17 9:10 AM CLIFFORD BARAKAT During your visit today, we recorded the following information about you: Temperature Pulse Blood pressure Weight 97.9 degrees 107/minute 140/66 90.3 kg Federica Pimentel LPN 06/01/2017 9:11 AM Signed Est patient. 3 week ov. Had labs this am @ [facility]. Labs not yet available. Federica Barakat DO [...] stopped after cycle #2. Was seen by reforestation worker at . Biopsy showed myopathy, but etiology [...] specimen was negative for both ER and MN as well as HER-2. I discussed the case with the pathologist today who told me that histologically/morphologically the specimen was consistent with her previous specimen of breast cancer. The pathologist will issue an addendum quantifying ER and MN 0 as well as HER-2 at 0. [...] poorly differentiated carcinoma. See comment. COMMENT Immunohistochemistry ([id number]) does not rule out a breast primary. There is focal perinodal extension of tumor. Clinical correlation is suggested. ANTIBODY / CLONE RESULT Block 1 Mammaglobin (31A5) negative GATA3 (L50-823) positive, rare, dim CK8 (96lwiiW80) positive Ki-67 (30-9) positive, moderate to high ER (6F11) negative 0% MN (1E2) negative 0% CK19 (A53-B/A2.26) positive Cyclin [...] chronic symptom. She finds oftentimes shows to [employer] Walk around long distances and she ends [...] No jaundice or rash. No petechiae. 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 No focal motor weakness. MUSCULOSKELETAL: No muscle wasting. No tenderness over the greater trochanters bilaterally. ASSESSMENT/PLAN: 1) pT1c (1.6 cm; grade 3; no AL invasion) pN0(sn) MX ER/MN negative HER2 non-amplified invasive ductal carcinoma of [...] Clifford Barakat DO Referring Provider: CLIFFORD BARAKAT [[id number]] Allergies As of Date: 06/01/2017 (No Known Allergies) Date Reviewed: 06/01/2017 Reviewed by: Federica Pimentel LPN - Fully Assessed Reason for Visit: Established Patient [175] Primary Visit Diagnosis:Malignant neoplasm of upper-outer quadrant of right breast in female, estrogen receptor negative (HCC) [C50.411, Z17.1] Other Visit Diagnosis:Pain of both hip joints [M25.551, M25.552] Order(s):XR PELVIS 2V AP HIP/FROG HIP BILAT [[id number]] Order #: [id number] [facility] COMMUNICATION ORDER [2105963] Order #: [id number]: 1 Prescriptions as of 06/01/2017 Sig: METOCLOPRAMIDE [...] More... HYPERLIPIDEMIA NEC/NOS [E78.5] INVALID FOR* FIBROMYALGIA [MWK2209] INVALID FOR* Priority: Moderate OVERWEIGHT [E66.9] INVALID [...] week ov. Had labs this am @ [facility]. Labs not yet available. Federica Pimentel LPN Encounter Status:Closed by CLIFFORD BARAKAT DO on 06/01/17 CBC W/DIFF, AUTOMATED Collected: 06/01/2017 Status: F Source: [place] 7:30 AM [facility] [place] TYPE CODE TESTS RESULT OUT OF [...] Lymph 2.17 Performed By: #### L100.0100 #### [facility] [address] [place], [address] COMPREHENSIVE METABOLIC Collected: 06/01/2017 Status: F Source: [facility] 7:30 AM [facility] [place] TYPE CODE TESTS RESULT OUT OF [...] 11 Performed By: #### L500.4050, L501.5200 #### [facility] [address] [place], [place], [id number] MAGNESIUM Collected: 06/01/2017 Status: F Source: [place] 7:30 AM [facility] [place] TYPE CODE TESTS RESULT OUT OF RANGE REFERENCE UNITS LAB L501.5200 1.6-2.6 mg/dL Low MG 1.5 Result Comment: Please note revised Magnesium reference range effective 2017. Performed By: #### L500.4050, L501.5200 #### [facility] [address] [place], [address] HOSP Observed: 06/01/2017 Status: COMPLETED Source: [facility] 12:00 AM [facility] REPOSITORY Patient Update (HEMAWS) PEDRO LUIS WILCOX ([id number]) 1970 F Date Time Provider Department 06/01/17 EMRE MCDONOUGH (RN) DANYEL During your visit [...] C/O's ?? Labs earlier today drawn at [facility]: CBC Hgb 10.8, grade 1, definitely related [...] study pills as monotherapy per protocol. ? [place] order-- The patient was given a new [...] Bone scan is on 06/09/17 due to [facility] policy of have bone scan and CT [...] More... HYPERLIPIDEMIA NEC/NOS [E78.5] INVALID FOR* FIBROMYALGIA [QXC8155] INVALID FOR* Priority: Moderate OVERWEIGHT [E66.9] INVALID [...] C/O's ?? Labs earlier today drawn at [facility]: CBC Hgb 10.8, grade 1, definitely related [...] study pills as monotherapy per protocol. ? [place] order-- The patient was given a new [...] Bone scan is on 06/09/17 due to [facility] policy of have bone scan and CT scan at 10 days apart. Patient agreeable with this plan. She has contact numbers if she needs anything in the interim. Emre Mcdonough RN Encounter Status:Closed by EMRE MCDONOUGH on 06/02/17 PROGRESS Observed: 05/30/2017 Status: COMPLETED Source: [facility] 4:20 PM [facility] REPOSITORY HNO ID: [id number] Author: Ihsa Servin (Sw) Service: (none) Author Type: Aircraft Painter Type: Progress Notes Filed: 05/30/2017 4:20 PM Note Text: SOCIAL WORK FOLLOW UP NOTE: [facility] Date of service: May 30, 2017 Pedro [...] Nunez PROGRESS Observed: 05/26/2017 Status: COMPLETED Source: [facility] 4:21 PM [facility] REPOSITORY HNO ID: [id number] Author: Isha Servin (Sw) Service: (none) Author Type: Aircraft Painter Type: Progress Notes Filed: 05/26/2017 4:23 PM Note Text: SOCIAL WORK FOLLOW UP NOTE: [facility] Date of service: May 26, 2017 Pedro Luis Wlicox is being seen for a follow up [...] Nunez PROGRESS Observed: 05/26/2017 Status: COMPLETED Source: [facility] 10:06 AM [facility] REPOSITORY HNO ID: [id number] Author: Isha Servin (Sw) Service: (none) Author Type: Aircraft Painter Type: Progress Notes Filed: 05/26/2017 10:07 AM Note Text: SOCIAL WORK FOLLOW UP NOTE: [facility] Date of service: May 26, 2017 Pedro Luis Wilcox is being seen for a follow up social work visit. Today's visit includes: patient TOPICS ADDRESSED: Disability; Patient has additional disability paperwork from [facility] that needs completed. Patient requests that paperwork not be faxed because she also needs to send additional paperwork along with these documents. 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 SW will completed paperwork and provide to doctor to review and sign. PLAN: Continue follow up as needed F/U APPOINTMENT: 06/01/17 ANNAMARIA Schroeder ALLERGIES ALLERGIES DATE TYPE / CODE NAME / CODE REACTION SEVERITY SOURCE 02/28/2018 Drug No Known Unknown [facility] Allergy/416 Allergies/G36544 Hospital 212503(SNOM 0388(RXNORM) Repository ED CT) Drug NO KNOWN [facility] Class/91743 ALLERGIES [place] 1003(SNOMED Repository CT) ENCOUNTERS ENCOUNTERS ADMIT/DISCHARGE ACCOUNT ADMITTING ENCOUNTER LOCATION SOURCE NUMBER CLASS 05/09/2018 [id number] Ambulatory [facility] ing:MEDOUTP Repository 05/09/2018 [id number] Ambulatory [facility] ing:LAB Repository 05/03/2018/05/09/19 [id number] Ambulatory [place] [facility] Repository 04/26/2018 [id number] Ambulatory [facility] Hospital ing:MEDOUTP Repository 04/19/2018 [id number] Ambulatory [facility] ing:MEDOUTP Repository 04/12/2018 [id number] Ambulatory [facility] ing:MEDOUTP Repository 04/04/2018/04/05/20 [id number] Ambulatory [address] Repository 04/04/2018/04/04/20 [id number] Ambulatory [address] ing:LAB Repository 04/03/2018 [id number] Ambulatory [facility] Hospital ing:RAD Repository 03/30/2018 [id number] [facility] ing[facility]NM Repository 03/27/2018 [id number] [facility] ing:CT Repository 03/22/2018 [id number] [facility] ing:MEDOUTP Repository 03/14/2018 [id number] [facility] Repository 03/13/2018/03/17/20 [id number] Ambulatory [place] [facility] [facility] ing:LAB Repository 03/06/2018/03/07/20 [id number] Ambulatory [address] [place] Repository 02/28/2018 [id number] [facility] ing:MEDOUTP Repository 02/21/2018 [id number] [facility] ing:MEDOUTP Repository 02/13/2018/02/15/20 [id number] Ambulatory [address] [place] Repository 02/10/2018 [id number] [facility] ing:MRI Repository 02/07/2018 [id number] [facility] ing:CT Repository 02/07/2018 [id number] [facility] ing:MEDOUTP Repository 02/07/2018/02/09/20 [id number] Ambulatory [address] [place] Repository 02/06/2018/02/07/20 [id number] Ambulatory [facility] [facility] ing:LAB Repository 01/31/2018 [id number] [facility] ing:MEDOUTP Repository 01/24/2018 [id number] [facility] ing:LABSPEC Repository 01/24/2018 [id number] [facility] ing:MEDOUTP Repository 01/23/2018/01/28/20 [id number] Ambulatory [address] [place] Repository 01/20/2018 [id number] [facility] ing:NM Repository 01/17/2018 [id number] Ambulatory [facility] ing:CT Repository 01/06/2018 [id number] [facility] ing:MED[facility]P Repository 01/03/2018 [id number] [facility] ing:MED[facility]P Repository 01/03/2018/01/07/20 [id number] Ambulatory [address] [place] Repository 01/03/2018/01/04/20 [id number] Ambulatory [facility] [facility] ing:LAB Repository 12/20/2017 [id number] [facility] [facility] ing:MED[facility]P Repository 12/13/2017 [id number] [facility] ing:MEDOUTP Repository 12/12/2017/12/15/19 [id number] Ambulatory [address] [place] Repository 12/09/2017 [id number] [facility] ing:EMPH Repository 12/09/2017/12/20/19 [id number] Ambulatory [facility] [facility] [facility] ing:LAB Repository 12/08/2017 [id number] [facility] ing:CT Repository 12/06/2017 [id number] [facility] ing:NM Repository 11/29/2017 [id number] [facility] ing:MEDOUTP Repository 11/22/2017 [id number] [facility] ing:MED[facility]P Repository 11/21/2017/11/23/19 [id number] Ambulatory [address] [place] Repository 11/18/2017/11/23/19 [id number] Ambulatory [address] [place] Repository 11/16/2017/11/18/19 [id number] Emergency [facility] [facility] ing:ED Repository 11/14/2017/11/15/19 [id number] Ambulatory [facility] [facility] ing:LAB Repository 11/09/2017 [id number] Ambulatory [facility] HospitalBuild Hospital ing:[facility]S Repository 11/08/2017 [id number] Ambulatory [facility] HospitalBuild Hospital ing:MEDOUTP Repository 11/03/2017/11/04/19 [id number] Ambulatory BMSBuilding:B [place] 18 [facility] Repository 11/01/2017 [id number] Ambulatory [facility] HospitalBuild Hospital ing:MEDOUTP Repository 10/28/2017/11/02/19 [id number] Ambulatory [address] Main [place] Repository 10/25/2017/10/28/19 [id number] Ambulatory [place] 18 [facility] Main [place] Repository 10/20/2017/10/22/19 [id number] Ambulatory [place] 18 [facility] [place] Repository 10/16/2017 [id number] Ambulatory [facility] HospitalBuild Hospital ing:LAB Repository 10/11/2017/10/14/19 [id number] Ambulatory [address] [place] Repository 10/10/2017 [id number] Ambulatory [facility] HospitalBuild Hospital ing:NM Repository 10/10/2017 [id number] Ambulatory BMSBuilding:W [facility] Repository 10/07/2017 [id number] Ambulatory [facility] HospitalBuild Hospital ing:NM Repository 10/05/2017 [id number] Ambulatory [facility] HospitalBuild Hospital ing:CT Repository 10/04/2017/10/07/19 [id number] Ambulatory [address] [place] Repository 10/04/2017/10/05/19 [id number] Ambulatory [address] HospitalBuild Hospital ing:LAB Repository 09/20/2017 [id number] Ambulatory [facility] HospitalBuild Hospital ing:NM Repository 09/13/2017/09/21/19 [id number] Ambulatory [address] [place] Repository 09/13/2017/09/14/19 [id number] Ambulatory [address] HospitalBuild Hospital ing:LAB Repository 09/07/2017/09/08/19 [id number] Ambulatory [address] HospitalBuild Hospital ing:OMD Repository 09/07/2017 [id number] Ambulatory BMSBuilding:B [place] MS.CF.[facility] Repository 08/29/2017/08/30/19 [id number] Emergency Kulw[address] Hospital ing:ED Repository 08/29/2017 [id number] Ambulatory [facility] Hospital ing:ONC Repository 08/23/2017/08/27/19 [id number] Ambulatory [address] Repository 08/23/2017 [id number] [facility] ing:MEDOUTP Repository 08/16/2017 [id number] Ambulatory [facility] Hospitalild Hospital ing:CT Repository 08/16/2017 [id number] Ambulatory [facility] Hospital ing:NM Repository 08/02/2017/08/06/19 [id number] Ambulatory [address] Repository 08/02/2017/08/03/19 [id number] [address] Hospital ing:LAB Repository 08/02/2017 [id number] [facility] ing:MEDOUTP Repository 07/12/2017/07/20/19 [id number] Ambulatory [address] Repository 07/12/2017/07/13/19 [id number] Ambulatory [address] HospitalBuild Hospital ing:LAB Repository 06/21/2017/06/24/19 [id number] Ambulatory [address] Repository 06/21/2017 [id number] [facility] ing:RAD Repository 06/20/2017 [id number] [facility] ing:CT Repository 06/09/2017 [id number] [facility] Hospital ing:NM Repository 06/01/2017/06/08/19 [id number] Ambulatory [address] Repository 06/01/2017/06/01/19 [id number] Ambulatory [address] HospitalBuild Hospital ing:LAB Repository PAYERS PAYERS ENCOUNTER GUARANTOR PAYER SUBSCRIBER SOURCE 05/09/2018 TOSHIA H Primary Insurance:[facility] PEDRO LUIS Williamson Kulwinder [id number] [facility]: [facility] 6950[place]93-40[place]OW[place] Number: Repository 54[address]Aao: 330 [id number] [phone] (HP) Date:1371-86-31LH [address] [address]ANLKVEOET, [place] [address]VG: CHECK WEBSITE 05/09/2018 Secondary NOT GIVENUNK Kulwinder Insurance:SELF PAY [facility] Number: Effective Repository Date:2018-05-09 05/09/2018 TOSHIA H Primary Insurance:[facility] PEDRO LUIS Williamson Kulwinder [id number] [facility]ENN[facility]YD[facility]: [facility] 6468-23-96XARMarshall, [place] Number: Repository [address]Cge: 330 [id number] [phone]) Date:1724-98-99TK [address] [address]NRTRTBYYN, [place] [address]JJ: CHECK WEBSITE 05/09/2018 Secondary NOT GIVENUNK [place] Insurance:SELF PAY [facility] Number: Effective Repository Date:2018-04-17 04/26/2018 TOSHIA H Primary Insurance:[facility] PEDRO LUIS Williamson Kulwinder [id number] [facility]ENN[facility]: [facility] 9920-32-03GXBMarshall, [place] Number: Repository 96011Bcv: 330 [id number] [phone]) Date:6276-89-26VR [address] [address]HGZHSBUXP, [place] [address]KE: CHECK WEBSITE 04/26/2018 Secondary NOT GIVENUNK Kulwinder Insurance:SELF PAY [facility] Number: Effective Repository Date:2018-04-13 04/19/2018 TOSHIA H Primary Insurance:[facility] PEDRO LUIS Williamson Kulwinder [id number] [facility]: [facility] 7081-31-13JCKM[place] Number: Repository 98286Mtu: 330 [id number] [phone] (HP) Date:3536-39-15FA [address] [address]OLFVBJYHX, [place] [address]OQ: CHECK WEBSITE 04/19/2018 Secondary NOT GIVENUNK Kulwinder Insurance:SELF PAY [facility] Number: Effective Repository Date:2018-04-04 04/12/2018 TOSHIA H Primary Insurance:[facility] EPDRO LUIS Williamson [place] [id number] [facility]: [facility] 7340-41-81NIYMarshall[place] Number: Repository [address]Geb: 330 [id number] [phone] () Date:8081-23-72EN [address] [address]GUMSNPJCZ, [place] [address]TI: CHECK WEBSITE 04/12/2018 Secondary NOT GIVENUNK Kulwinder Insurance:SELF PAY [facility] Number: Effective Repository Date:2018-04-04 04/04/2018 TOSHIA H Primary Insurance:[facility] PEDRO LUIS Williamson Kulwinder [id number] [facility]: [facility] 8630-94-21VVDM[place], [place] Number: Repository [address]Jxo: 330 [id number] [phone] () Date:4712-43-87ZG [address] [address]CDYRFQJVB, [place] [address]AU: CHECK WEBSITE 04/04/2018 Secondary NOT GIVENUNK Kulwinder Insurance:SELF PAY [facility] Number: Effective Repository Date:2018-03-20 04/03/2018 TOSHIA H Primary Insurance:[facility] PEDRO LUIS Williamson Kulwinder [id number] [facility]OB: [facility] 5073-19-51PXOMarshall, [place] Number: Repository [address]Twj: 330 [id number] [phone] () Date:0801-07-88QU [address] [address]LWPMYLPIZ, [place] [address]HV: CHECK WEBSITE 04/03/2018 Secondary NOT GIVENUNK [place] Insurance:SELF PAY [facility] Number: Effective Repository Date:2018-04-03 03/30/2018 TOSHIA H Primary Insurance:[facility] PEDRO LUIS Williamson [place] [id number] [facility]: [facility] 6788-17-49MYOMarshall, [place] Number: Repository [address]Bjj: 330 [id number] [phone] (HP) Date:9097-05-30VY [address] [address]VRSZGDCAE, [place] [address]YG: CHECK WEBSITE 03/30/2018 Secondary NOT GIVENUNK [place] Insurance:SELF PAY [facility] Number: Effective Repository Date:2018-03-13 03/27/2018 TOSHIA H Primary Insurance:[facility] PEDRO LUIS Williamson Kulwinder [id number] [facility]: [facility] 4815-00-70CRSMarshall, [place] Number: Repository [address]Jpc: 330 [id number] [phone] (HP) Date:1301-39-11OU [address] [address]DXKMWRNXS, [place] [address]DV: CHECK WEBSITE 03/27/2018 Secondary NOT GIVENUNK Kulwinder Insurance:SELF PAY [facility] Number: Effective Repository Date:2018-03-13 03/22/2018 TOSHIA H Primary Insurance:[facility] Kulwinder [id number] [facility]DOB: [facility] 5269-46-27VTEMarshall, [place] Number: Repository [address]Xpy: 330 [id number] [phone] (HP) Date:5756-76-88SW [address] [address]FJCZZNFTR, [place] [address]FJ: CHECK WEBSITE 03/22/2018 Secondary NOT GIVENUNK Kulwinder Insurance:SELF PAY [facility] Number: Effective Repository Date:2018-03-20 03/14/2018 TOSHIA H Primary [facility] Kulwinder [id number] [facility]OB: [facility] 0974-01-04KQWMarshall, [place] Number: Repository [address]Bdx: 330 [id number] [phone] (HP) Date:2574-00-14MZ [address] [address]IVQFSUAMP, [place] [address]YU: CHECK WEBSITE 03/14/2018 Secondary NOT GIVENUNK [place] Insurance:SELF PAY [facility] Number: Effective Repository Date:2018-03-13 03/13/2018 TOSHIA H Primary [facility] Kulwinder [id number] [facility]DOB: [facility] 5367-57-10WBWMarshall, [place] Number: Repository 17709Jqc: 330 [id number] [phone] (HP) Date:6445-47-36HR [address] [address]QCKJFTJRJ, [place] [address]LS: CHECK WEBSITE 03/13/2018 Secondary NOT GIVENUNK Kulwinder Insurance:SELF PAY [facility] Number: Effective Repository Date:2018-02-16 02/28/2018 TOSHIA H Primary Insurance:[facility] DAYANDATH C Kulwinder [id number] [facility]DOB: [facility] 4322-66-69ESRMarshall, [place] Number: Repository [address]Uqa: 330 [id number] [phone] (HP) Date:6501-96-24GM [address] [address]QJLDYGGTM, [place] [address]RT: CHECK WEBSITE 02/28/2018 Secondary NOT GIVENUNK Kulwinder Insurance:SELF PAY [facility] Number: Effective Repository Date:2018-02-24 02/21/2018 TOSHIA H Primary Insurance:[facility] DAYANDATH C [place] [id number] [facility]: [facility] 6448-11-24DHKMarshall, [place] Number: Repository [address]Jkq: 330 [id number] [phone] (HP) Date:0591-88-59DR [address] [address]WKHJWEKLJ, [place] [address]CY: CHECK WEBSITE 02/21/2018 Secondary NOT GIVENUNK Kulwinder Insurance:SELF PAY [facility] Number: Effective Repository Date:2018-02-20 02/10/2018 TOSHIA H Primary Insurance:[facility] DAYANDATH C Kulwinder [id number] [facility]: [facility] 9206-70-47QAPMarshall, [place] Number: Repository 15[address]Sac: 330 [id number] [phone]) Date:1515-73-94KL [address] [address]SMJQXYSYU, [place] [address]QC: CHECK WEBSITE 02/10/2018 Secondary NOT GIVENUNK Kulwinder Insurance:SELF PAY [facility] Number: Effective Repository Date:2018-01-25 02/07/2018 TOSHIA H Primary Insurance:[facility] PEDRO LUIS Miramontes [id number] [facility]DOB: [facility] 9623-15-64JPHMarshall, [place] Number: Repository [address]Dfq: 330 [id number] [phone] (HP) Date:9549-70-58FC [address] [address]YGUDKCLCU, [place] [address]OZ: CHECK WEBSITE 02/07/2018 Secondary NOT GIVENUNK Kulwinder Insurance:SELF PAY [facility] Number: Effective Repository Date:2018-02-07 02/07/2018 TOSHIA H Primary Insurance:[facility] PEDRO LUIS Miramontes [id number] [facility]DOB: [facility] 3627-95-51OIZM[place], [place] Number: Repository [address]Eki: 330 [id number] [phone] (HP) Date:8734-14-67MB [address] [address]QPHIEYXKY, [place] [address]AT: CHECK WEBSITE 02/07/2018 Secondary NOT GIVENUNK [place] Insurance:SELF PAY [facility] Number: Effective Repository Date:2018-02-03 02/06/2018 TOSHIA H Primary Insurance:[facility] PEDRO LUIS Miramontes [id number] [facility]DOB: [facility] 9309-88-64AZUMarshall, [place] Number: Repository [address]Ipf: 330 [id number] [phone] (HP) Date:9222-22-08EH [address] [address]LEDKCKINQ, [place] [address]IC: CHECK WEBSITE 02/06/2018 Secondary NOT GIVENUNK [place] Insurance:SELF PAY [facility] Number: Effective Repository Date:2018-01-18 01/31/2018 TOSHIA H Primary Insurance:[facility] PEDRO LUIS Miramontes [id number] [facility]: [facility] 2001-66-61HPFM[place], [place] Number: Repository 75[address]Sji: 330 [id number] [phone] (HP) Date:5488-23-30XH [address] [address]FPLTKBZJF, [place] [address]ZA: CHECK WEBSITE 01/31/2018 Secondary NOT GIVENUNK Kulwinder Insurance:SELF PAY [facility] Number: Effective Repository Date:2018-01-30 01/24/2018 TOSHIA H Primary Insurance:[facility] PEDRO LUIS Williamson Cohagen [id number] [facility]: [facility] 9065-17-61ELNMarshall, [place] Number: Repository [address]Tcr: 330 [id number] [phone]) Date:5452-96-98TU [address] [address]LJBPPMJLU, [place] [address]MV: CHECK WEBSITE 01/24/2018 Secondary NOT GIVENUNK Kulwinder Insurance:SELF PAY [facility] Number: Effective Repository Date:2018-01-24 01/24/2018 TOSHIA H Primary Insurance:[facility] PEDRO LUIS Williamson Cohagen [id number] [facility]DOB: [facility] 5838-28-71GCUMarshall, [place] Number: Repository 224[address]Jqx: 330 [id number] [phone]) Date:4200-35-71QU [address] [address]VQMQOHMPS, [place] [address]GJ: CHECK WEBSITE 01/24/2018 Secondary NOT GIVENUNK Kulwinder Insurance:SELF PAY [facility] Number: Effective Repository Date:2018-01-18 01/20/2018 TOSHIA H Primary Insurance:[facility] PEDRO LUIS Williamson Cohagen [id number] [facility]DOB: [facility] 3435-86-43AIAMarshall, [place] Number: Repository 68443Koy: 330 [id number] [phone]) Date:2514-29-82VQ [address] [address]UFZDULMON, [place] [address]FY: CHECK WEBSITE 01/20/2018 Secondary NOT GIVENUNK [place] Insurance:SELF PAY [facility] Number: Effective Repository Date:2018-01-11 01/17/2018 TOSHIA H Primary Insurance:[facility] PEDRO LUIS Williamson Cohagen [id number] [facility]DOB: [facility] 3316-32-69EZDMarshall, [place] Number: Repository [address]Mdj: 330 [id number] [phone] (HP) Date:2018-94-51XU [address] [address]SHQVNFGKG, [place] [address]AV: CHECK WEBSITE 01/17/2018 Secondary NOT GIVENUNK Kulwinder Insurance:SELF PAY [facility] Number: Effective Repository Date:2018-01-11 01/06/2018 TOSHIA H Primary Insurance:[facility] DAYANDATH C Cohagen [id number] [facility]DOB: [facility] 9548-29-20MCMM[place], [place] Number: Repository [address]Acm: 330 [id number] [phone]) Date:3000-38-59YC [address] [address]TUYHJUYZY, [place] [address]WH: CHECK WEBSITE 01/06/2018 Secondary NOT GIVENUNK Kulwinder Insurance:SELF PAY [facility] Number: Effective Repository Date:2018-01-06 01/03/2018 TOSHIA H Primary Insurance:[facility] LANEYTH C Kulwinder [id number] [facility]: [facility] 8870-57-00FBUMarshall, [place] Number: Repository 57332Yyn: 330 [id number] [phone] (HP) Date:0704-12-96RY [address] [address]KEJFTUUGG, [place] [address]BF: CHECK WEBSITE 01/03/2018 Secondary NOT GIVENUNK Kulwinder Insurance:SELF PAY [facility] Number: Effective Repository Date:2018-01-02 01/03/2018 TOSHIA H Primary Insurance:[facility] PEDRO LUIS Williamson Cohagen [id number] [facility]: [facility] 7571-74-01ETUMarshall, [place] Number: Repository 169[address]Yna: 330 [id number] [phone]) Date:3760-83-50ZN [address] [address]CQSRGYCIL, [place] [address]DL: CHECK WEBSITE 01/03/2018 Secondary NOT GIVENUNK Kulwinder Insurance:SELF PAY [facility] Number: Effective Repository Date:2017-12-20 12/20/2017 TOSHIA H Primary Insurance:[facility] PEDRO LUIS Miramontes [id number] S [facility]: [facility] 5387-13-65JKBBanner [facility] [place] Number: Repository [address]Pfw: 330 [id number] [phone] (HP) Date:5417-51-80ED [address] [address]BQHNRPYSI, [place] [address]MI: CHECK WEBSITE 12/20/2017 Secondary NOT GIVENUNK [place] Insurance:SELF PAY [facility] Number: Effective Repository Date:2017-12-16 12/13/2017 TOSHIA H Primary Insurance:[facility] PEDRO LUIS Miramontes [id number] S [facility]: [facility] 6917-79-09JXSLutheran Medical Center, [place] Number: Repository [address]Jtt: 330 [id number] [phone] () Date:6669-60-66IK [address] [address]LJIAKMGYX, [place] [address]LH: CHECK WEBSITE 12/13/2017 Secondary NOT GIVENUNK Kulwinder Insurance:SELF PAY [facility] Number: Effective Repository Date:2017-12-07 12/09/2017 TOSHIA H Primary NOT GIVENUNK Kulwinder [id number] S Insurance:SELF PAY [facility] [place] Number: Effective Repository [address]Cit: 330) Date:2017-12-09 [phone] ([phone] 12/09/2017 TOSHIA H Primary Insurance:[facility] PEDRO LUIS Miramontes [id number] S [facility]: [facility] 0032-42-87LMRBanner [facility] [place] Number: Repository [address]Rxc: 330 [id number] [phone] (HP) Date:6387-04-78ZZ [address] [address]UDRLPARCZ, [place] [address]BG: CHECK WEBSITE 12/09/2017 Secondary NOT GIVENUNK [place] Insurance:SELF PAY [facility] Number: Effective Repository Date:2017-11-17 12/08/2017 TOSHIA H Primary Insurance:[facility] MEREDAPATTI [id number] [facility]: [facility] 8280-92-10LXHSaint [place], [place] Number: Repository 16[address]Bew: 330 [id number] [phone] (HP) Date:4147-76-40UT [address] [address]EUIAETMHN, [place] [address]FI: CHECK WEBSITE 12/08/2017 Secondary NOT GIVENUNK Kulwinder Insurance:SELF PAY [facility] Number: Effective Repository Date:2017-12-05 12/06/2017 TOSHIA H Primary Insurance:[facility] PEDRO LUIS [id number] S [facility]: [facility] 9163-75-23JZVBanner [facility] [place] Number: Repository [address]Ztx: 330 [id number] [phone]) Date:9372-15-44HW [address]41OMXIWNCUE, [place] [address]UQ: CHECK WEBSITE 12/06/2017 Secondary NOT GIVENUNK 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 Insurance:SELF PAY [facility] Number: Effective Repository Date:2017-12-05 11/29/2017 TOSHIA H Primary Insurance:[facility] PEDRO LUIS [id number] S [facility]: [facility] 1967-80-43HGCSaint [place], [place] Number: Repository 95[address]Jlq: 330 [id number] [phone] (HP) Date:4812-07-00KB [address] [address]WHWHWXDRO, [place] [address]LJ: CHECK WEBSITE 11/29/2017 Secondary NOT GIVENUNK [place] Insurance:SELF PAY [facility] Number: Effective Repository Date:2017-11-08 11/22/2017 TOSHIA H Primary Insurance:[facility] PEDRO LUIS [id number] S [facility]: [facility] 9236-06-35XTYSaint [place], [place] Number: Repository 158[address]Zil: 330 [id number] [phone] (HP) Date:4587-72-51NP [address] [address]BNOQHJNIA, [place] [address]BL: CHECK WEBSITE 11/22/2017 Secondary NOT GIVENUNK Kulwinder Insurance:SELF PAY [facility] Number: Effective Repository Date:2017-11-08 11/16/2017 TOSHIA H Primary Insurance:[facility] PEDRO LUIS Miramontes [id number] S [facility]: [facility] 3468-83-24QZTSaint [place], [place] Number: Repository 37649Pqg: 330 [id number] [phone] (HP) Date:2465-86-92FC [address] [address]PLVCGIDEF, [place] [address]AV: CHECK WEBSITE 11/16/2017 Secondary NOT GIVENUNK Coh[place] Insurance:SELF PAY [facility] Number: Effective Repository Date:2017-11-16 11/14/2017 DAYANLISSETTEPATTI Clay Primary Insurance:[facility] PEDRO LUIS Williamson Kulwinder [id number] S [facility]: [facility] 2000-55-36YOQMendocino [facility], Number: [place]ository [place] [address]Kpg: [id number] Date:2591-48-45MI [address] () [address]NURRBDHNA, [place] [address]AQ: CHECK WEBSITE 11/14/2017 Secondary NOT GIVENUNK Kulwinder Insurance:SELF PAY [facility] Number: Effective Repository Date:2017-10-31 11/09/2017 TOSHIA H Primary Insurance:[facility] PEDRO LUIS Miramontes [id number] S [facility]ENN[facility]YB: [facility] 2130-37-07TZOSaint [place], [place] Number: Repository [address]Ukh: 330 [id number] [phone] (HP) Date:2025-01-69ES [address] [address]YCOBGZQSP, [place] [address]NI: CHECK WEBSITE 11/09/2017 Secondary NOT GIVENUNK Kulwinder Insurance:SELF PAY [facility] Number: Effective Repository Date:2017-11-09 11/08/2017 TOSHIA H Primary Insurance:[facility] PEDRO LUIS Miramontes [id number] S [facility]B: [facility] 2377-82-92RNISaint [place], [place] Number: Repository [address]Dtk: 330 [id number] [phone] (HP) Date:0406-66-31XH [address] [address]KTWKZWXIJ, [place] [address]AC: CHECK WEBSITE 11/08/2017 Secondary NOT GIVENUNK Cohagen Insurance:SELF PAY [facility] Number: Effective Repository Date:2017-11-07 11/03/2017 TOSHIA H Primary Insurance:[facility] LANEY Clay Cohagen [id number] S [facility]: [facility] 5377-04-55YIEBanner [facility] [place] Number: Repository [address]761Mox: 330 [id number] [phone] (HP) Date:7928-09-25HW [address] [address]OCLDQBUYB, [place] [address]PB: CHECK WEBSITE 11/03/2017 Secondary NOT GIVENUNK Kulwinder Insurance:SELF PAY [facility] Number: Effective Repository Date:2017-11-03 11/01/2017 TOSHIA H Primary [facility] Cohagen [id number] S [facility]: [facility] 0710-83-32AANBanner [facility] [place] Number: Repository [address]Vnz: 330 [id number] [phone] () Date:2546-66-44MZ [address] [address]CSHRJPUPF, [place] [address]HK: CHECK WEBSITE 11/01/2017 Secondary NOT GIVENUNK Kulwinder Insurance:SELF PAY [facility] Number: Effective Repository Date:2017-10-28 10/16/2017 TOSHIA H Primary Insurance:[facility] LANEY Clay Cohagen [id number] S [facility]: [facility] 8506-43-86MOPBanner [facility] [place] Number: Repository [address]Cux: 330 [id number] [phone] (HP) Date:2131-04-38JE [address] [address]HOMTDTFMC, [place] [address]VL: CHECK WEBSITE 10/16/2017 Secondary NOT GIVENUNK Cohagen Insurance:SELF PAY [facility] Number: Effective Repository Date:2017-10-14 10/10/2017 TOSHIA H Primary Insurance:[facility] PEDRO LUIS Miramontes [id number] S [facility]: [facility] 0543-61-51IXHSaint [place], [place] Number: Repository 25[address]Tkk: 330 [id number] [phone] (HP) Date:8738-68-06YH [address] [address]AKVPDLPGS, [place] [address]WM: CHECK WEBSITE 10/10/2017 Secondary NOT GIVENUNK Cohagen Insurance:SELF PAY [facility] Number: Effective Repository Date:2017-09-13 10/10/2017 PEDRO LUIS Williamson Primary Insurance:[facility]RO [facility] Arenasoster [id number] S [facility] [id number] Number: [place]ository [place] [id number]: [id number] Date:[id number] () [address]GDPGHSS, [place] [address]NS: CHECK WEBSITE 10/10/2017 Secondary NOT GIVENUNK Kulwinder Insurance:SELF PAY [facility] Number: Effective Repository Date:2017-10-10 10/07/2017 TOSHIA H Primary Insurance:[facility] LU[facility] Miramontes [id number] S [facility]: [facility] 6487-20-39YLFS[place] Number: Repository [address]Yzr: 330 [id number] [phone] (HP) Date:7568-26-63VQ [address] [address]SPFLWENHD, [place] [address]QJ: CHECK WEBSITE 10/07/2017 Secondary NOT GIVENUNK Kulwinder Insurance:SELF PAY [facility] Number: Effective Repository Date:2017-10-04 10/05/2017 TOSHIA H Primary Insurance:[facility] LU[facility] Miramontes [id number] S [facility]: [facility] 0501-35-10DDMSaint [place] Number: Repository [address]Fmt: 330 [id number] [phone] (HP) Date:0557-46-75QK [address] [address]YMQSDHIRX, [place] [address]OG: CHECK WEBSITE 10/05/2017 Secondary NOT GIVENUNK [place] Insurance:SELF PAY [facility] Number: Effective Repository Date:2017-09-13 10/04/2017 TOSHIA H Primary Insurance:[facility] LU[facility] Miramontes [id number] [facility]: [facility] 5170-82-49LMCSaint [place] Number: Repository [address]Wwc: 330 [id number] [phone]) Date:1488-64-04BE [address] [address]TTPMIKBKA, [place] [address]XN: CHECK WEBSITE 10/04/2017 Secondary NOT GIVENUNK [place] Insurance:SELF PAY [facility] Number: Effective Repository Date:2017-09-15 09/20/2017 Toshia H Primary Insurance:[facility] LUIS Miramontes [id number] [facility]DOB: [facility] 6054-20-59AXVFord[place], [place] Number: Repository [address]Fpb: 330 [id number] [phone] () Date:1326-78-00UW [address] [address]WHTOOZZEZ, [place] [address]PD: CHECK WEBSITE 09/20/2017 Secondary NOT GIVENUNK [place] Insurance:SELF PAY [facility] Number: Effective Repository Date:2017-09-09 09/13/2017 Toshia H Primary Insurance:[facility] LUIS [id number] [facility]: [facility] 0880-01-20VAIFord[place], [place] Number: Repository [address]Nxj: 330 [id number] [phone]) Date:8709-40-02RR [address] [address]QAJVZBKAO, [place] [address]QT: CHECK WEBSITE 09/13/2017 Secondary NOT GIVENUNK Kulwinder Insurance:SELF PAY [facility] Number: Effective Repository Date:2017-08-16 09/07/2017 Toshia H Primary Insurance:[facility] P[facility] LUIS [id number] [facility]OB: [facility] 2492-27-93MUHFord[place], [place] Number: Repository [address]Yen: 330 [id number] [phone]) Date:4856-74-35TJ [address] [address]YCKODMQSN, [place] [address]OS: CHECK WEBSITE 09/07/2017 Secondary NOT GIVENUNK Kulwinder Insurance:SELF PAY [facility] Number: Effective Repository Date:2017-08-30 09/07/2017 Toshia H Primary Insurance:[facility] Cohagen [id number] [facility]DOB: [facility] 6306-08-23WCRFordville, [place] Number: Repository [address]Ymf: 330 [id number] [phone] (HP) Date:0559-50-57WN [address] [address]AZAKLJDKO, [place] [address]YK: CHECK WEBSITE 09/07/2017 Secondary NOT GIVENUNK Kulwinder Insurance:SELF PAY [facility] Number: Effective Repository Date:2017-09-07 08/29/2017 MEREDATH C Primary Insurance:[facility] Cohagen [id number] [address] [facility]B: [facility] 4865[facility]12-93[facility]HM[facility], Number: [place] [address]Mwt: [id number] Date:1171-74-56FK [address] () [address]URIFOCTJF, [place] [address]HF: CHECK WEBSITE 08/29/2017 Secondary NOT GIVENUNK Kulwinder Insurance:SELF PAY [facility] Number: Effective Repository Date:2017-08-29 08/29/2017 Toshia H [facility] Cohagen [id number] [facility]USB: [facility] 0523-27-89SXHFordville, [place] Number: Repository [address]Ijg: 330 [id number] [phone] (HP) Date:6673-76-50HI [address] [address]FVHHJYUSI, [place] [address]YF: CHECK WEBSITE 08/29/2017 Secondary NOT GIVENUNK [place] Insurance:SELF PAY [facility] Number: Effective Repository Date:2017-08-25 08/23/2017 Toshia H Primary Insurance:[facility] LUIS Miramontes [id number] [address] [facility]DOB: [facility] 3286-38-52JRGDenver Health [facility] [place] Number: Repository [address]Kqo: 330 [id number] [phone] () Date:7297-41-49LD [address] [address]KHWQCQQAX, [place] [address]ZG: CHECK WEBSITE 08/23/2017 Secondary NOT GIVENUNK Kulwinder Insurance:SELF PAY [facility] Number: Effective Repository Date:2017-08-16 08/16/2017 Toshia H Primary Insurance:[facility] LUIS Miramontes [id number] [address] [facility]DOB: [facility] [id number] [facility] [place] Number: Repository [address]Uqg: 330 [id number] [phone] (HP) Date:3974-77-80YR [address] [address]AXRNHDUXC, [place] [address]AX: CHECK WEBSITE 08/16/2017 Secondary NOT GIVENUNK [place] Insurance:SELF PAY [facility] Number: Effective Repository Date:2017-08-02 08/16/2017 Toshia H Primary Insurance:[facility] P[facility] LUIS Miramontes [id number] [facility]DOB: [facility] 6229-03-30GYZDenver Health [facility] [place] Number: Repository [address]Aor: 330 [id number] [phone] (HP) Date:3212-03-22GH [address] [address]NLVIPIXGQ, [place] [address]VM: CHECK WEBSITE 08/16/2017 Secondary NOT GIVENUNK Kulwinder Insurance:SELF PAY [facility] Number: Effective Repository Date:2017-08-02 08/02/2017 Toshia H Primary Insurance:[facility] P[facility] LUIS Miramontes [id number] [facility]DOB: [facility] 4391-75-26DTDDenver Health Medical Center [place] Number: Repository [address]Zbl: 330 [id number] [phone] (HP) Date:7814-35-91TD [address] [address]YTFHAFIII, [place] [address]MG: CHECK WEBSITE 08/02/2017 Secondary NOT GIVENUNK Kulwinder Insurance:SELF PAY [facility] Number: Effective Repository Date:2017-07-18 08/02/2017 Toshia H Primary Insurance:[facility] LUIS Miramontes [id number] S [facility]: [facility] 4606-95-43EUGLarsen [place] Number: Repository [address]Qxq: 330 [id number] [phone] () Date:3917-84-45CJ [address] [address]PECCWNZWR, [place] [address]HV: CHECK WEBSITE 08/02/2017 Secondary NOT GIVENUNK Kulwinder Insurance:SELF PAY [facility] Number: Effective Repository Date:2017-07-28 07/12/2017 Toshia H Primary Insurance:[facility] LUIS Miramontes [id number] S [facility]: [facility] 6335-21-19ZCULarsen Bay[place] Number: Repository [address]Tux: 330 [id number] [phone] () Date:1874-52-92EB [address] [address]PUAFWHJCM, [place] [address]NK: CHECK WEBSITE 07/12/2017 Secondary NOT GIVENUNK [place] Insurance:SELF PAY [facility] Number: Effective Repository Date:2017-06-16 06/21/2017 Toshia H Primary Insurance:[facility] P[facility] LUIS [id number] [facility]: [facility] 2353-56-09KRXLarsen [place] Number: Repository [address]Ydf: 330 [id number] [phone]) Date:7522-99-97UV [address] [address]QNFFSDFGK, [place] [address]NE: CHECK WEBSITE 06/21/2017 Secondary NOT GIVENUNK [place] Insurance:SELF PAY [facility] Number: Effective Repository Date:2017-06-21 06/20/2017 Toshia H Primary Insurance:[facility] P[facility]RO LUIS [id number] [facility]: [facility] 2019-98-37WRALarsen [place] Number: Repository [address]Nea: 330 [id number] [phone] (HP) Date:2840-20-16KA [address] [address]UAHTCLMAI, [place] [address]RP: CHECK WEBSITE 06/20/2017 Secondary NOT GIVENUNK Kulwinder Insurance:SELF PAY [facility] Number: Effective Repository Date:2017-05-10 06/09/2017 Toshia H Primary Insurance:[facility] P[facility]RO LUIS [id number] [facility]: [facility] 8415-58-35OQILarsen [place] Number: Repository [address]Eul: 330 [id number] [phone]) Date:0166-24-66SA [address] [address]WZQXGMXWQ, [place] [address]OS: CHECK WEBSITE 06/09/2017 Secondary NOT GIVENUNK Kulwinder Insurance:SELF PAY [facility] Number: Effective Repository Date:2017-05-17 06/01/2017 Toshia H Primary Insurance:[facility] PEDRO LUIS [id number] [facility]: [facility] 9780-52-45PMALarsen [place], [place] Number: Repository [address]Knr: 330 [id number] [phone] (HP) Date:1809-25-11CW [address] [address]OJTFWTXPQ, [place] [address]AI: CHECK WEBSITE 06/01/2017 Secondary NOT GIVENUNK [place] Insurance:SELF PAY [facility] Number: Effective Repository Date:2017-05-20
== END ==
PROVIDERS: Family Provider Family Medicine; PCP Family Medicine; Referring Provider Internal Medicine Hematology & Oncology; Visit Provider Internal Medicine Hematology & Oncology
DX: C50.411 Malignant neoplasm of upper-outer quadrant of right female breast (principal); Z17.1 Estrogen receptor negative status [ER-]; C78.02 Secondary malignant neoplasm of left lung; C79.51 Secondary malignant neoplasm of bone; E11.9 Type 2 diabetes mellitus without complications
CPT/HCPCS: 78306

== ENCOUNTER → 2018-04-03 10:52 | Outpatient (CLI) | payer OTHER, SELFPAY ==
[2018-03-22 10:06] VITALS: BMI 30.5
--- NOTE | 2018-04-03 11:02 | RAD_ITS ---
STUDY: X-RAY - THORACIC SPINE REASON FOR EXAM: Female, 47 years old. History of metastatic breast disease, recent bone scan showed activity in the region of the eighth vertebrae. TECHNIQUE: 3 view(s) of the thoracic spine were obtained. COMPARISON: None. FINDINGS: Normal kyphosis of the thoracic spine. There is no substantial scoliosis. There is diffuse endplate spondylosis of the thoracic spine. No lytic or blastic osseous changes are evident. Disc spacing is preserved. The pedicles, paraspinous soft tissues, and visualized posterior spinous elements are intact. There is a left-sided MediPort with tip superimposed on the distal SVC. RAD/Thoracic Spine 3 Views IMPRESSION: Degenerative changes as detailed above. No lytic or blastic osseous changes were evident. Electronically Signed: Marck Garcia MD at 23:51 EST , Service support ,
--- OUTSIDE RECORDS SUMMARY | 2018-07-05 23:59 | XMS RPT_ITS ---
:1970 Author Organization [place] Support Name Relationship Address Phone RICCONAZ BUENOCA Unavailable [address] + [place] [address] TOSHIA WILCOX Unavailable [address] + [place] [address] [facility] Unavailable [address] + [place] [address] RICCO FADUMO Unavailable [address] + [place] [address] TOSHIA WILCOX Unavailable [address] + [place] [address] WC Unavailable [address] + [place] [address] RICCO, FADUMO Unavailable [address] + [place] [address] KATHLEEN WILCOXLIE Unavailable [address] + [place] [address] WC Unavailable [address] + [place] [address] RICCO, FADUMO Unavailable [address] + [place] [address] KATHLEEN WILCOXLIE Unavailable [address] + [place] [address] WC Unavailable [address] + [place] [address] RICCO FADUMO Unavailable [address] + [place] [address] KATHLEEN WILCOXLIE Unavailable [address] + [place] [address] WC Unavailable [address] + [place] [address] RICCO, FADUMO Unavailable [address] + [place] [address] KATHLEEN WILCOXLIE Unavailable [address] + [place] [address] [facility] Unavailable [address] + [place] [address] RICCO, FADUMO Unavailable [address] + [place] [address] MARK TOSHIA Unavailable [address] + [place] [address] WC Unavailable [address] + [place] [address] RICCO, FADUMO Unavailable [address] + [place] [address] MARK TOSHIA Unavailable [address] + [place] [address] [facility] Unavailable [address] + [place] [address] RICCO, FADUMO Unavailable [address] + [place] [address] KATHLEEN WILCOXLIE Unavailable [address] + [place] [address] [facility] Unavailable [address] + [place] [address] RICCO, FADUMO Unavailable [address] + [place] [address] KATHLEEN WILCOXLIE Unavailable [address] + [place] [address] [facility] Unavailable [address] + [place] [address] RICCO, FADUMO Unavailable [address] + [place] [address] MARK TOSHIA Unavailable [address] + [place] [address] [facility] Unavailable [address] + [place] [address] RICCO, FADUMO Unavailable [address] + [place] [address] KATHLEEN WILCOXLIE Unavailable [address] + [place] [address] [facility] Unavailable [address] + [place] [address] RICCO, FADUMO Unavailable [address] + [place] [address] KATHLEEN WILCOXLIE Unavailable [address] + [place] [address] WC Unavailable [address] + [place] [address] RICCO, FADUMO Unavailable [address] + [place] [address] TOSHIA WILCOX Unavailable [address] + [place] [address] [facility] Unavailable [address] + [place] [address] RICCO, FADUMO Unavailable [address] + [place] [address] KATHLEEN WILCOXLIE Unavailable [address] + [place] [address] [facility] Unavailable [address] + [place] [address] RICCO, FADUMO Unavailable [address] + [place] [address] TOSHIA WILCOX Unavailable [address] + [place] [address] WC Unavailable [address] + [place] [address] RICCO, FADUMO Unavailable [address] + [place] [address] TOSHIA WILCOX Unavailable [address] + [place] [address] [facility] Unavailable [address] + [place] [address] RICCO, FADUMO Unavailable [address] + [place] [address] MARK, TOSHIA Unavailable [address] + [place] [address] [facility] Unavailable [address] + [place] [address] RICCO, FADUMO Unavailable [address] + [place] [address] MARK TOSHIA Unavailable [address] + [place] [address] [facility] Unavailable [address] + [place] [address] RICCO, FADUMO Unavailable [address] + [place] [address] AKTHLEEN WILCOXLIE Unavailable [address] + [place] [address] [facility] Unavailable [address] + [place] [address] RICCO, FADUMO Unavailable [address] + [place] [address] MARK TOSHIA Unavailable [address] + [place] [address] [facility] Unavailable [address] + [place] [address] RICCO, FADUMO Unavailable [address] + [place] [address] KATHLEEN WILCOXLIE Unavailable [address] [place] [address] + [place] [address] [facility] Unavailable [address] + [place] [address] RICCO, FADUMO Unavailable [address] + [place] [address] KATHLEEN WILCOXLIE Unavailable [address] [place] [address] + [place] [address] [facility] Unavailable [address] + [place] [address] RICCO, FADUMO Unavailable [address] + [place] [address] KATHLEEN WILCOXLIE Unavailable [address] [place] [address] + [place] [address] [facility] Unavailable [address] + [place] [address] RICCO FADUMO Unavailable [address] + [place] [address] TOSHIA WILCOX Unavailable [address] [place] [address] + [place] [address] [facility] Unavailable [address] + [place] [address] RICCO FADUMO Unavailable [address] + [place] [address] TOSHIA WILCOX Unavailable [address] [place] [address] + [place] [address] [facility] Unavailable [address] + [place] [address] RICCO FADUMO Unavailable [address] + [place] [address] TOSHIA WILCOX Unavailable [address] [place] [address] + [place] [address] [facility] Unavailable [address] + [place] [address] RICCO FADUMO Unavailable [address] + [place] [address] TOSHIA WILCOX Unavailable [address] [place] [address] + [place] [address] [facility] Unavailable [address] + [place] [address] RICCO FADUMO Unavailable [address] + [place] [address] TOSHIA WILCOX Unavailable [address] [place] [address] + [place] [address] [facility] Unavailable [address] + [place] [address] RICCO FADUMO Unavailable [address] + [place] [address] TOSHIA WILCOX Unavailable [address] [place] [address] + [place] [address] [facility] Unavailable [address] + [place] [address] RICCO FADUMO Unavailable [address] + [place] [address] TOSHIA WILCOX Unavailable [address] [place] [address] + [place] [address] [facility] Unavailable [address] + [place] [address] RICCO, FADUMO Unavailable [address] + [place] [address] TOSHIA WILCOX Unavailable [address] [place] [address] + [place] [address] WC Unavailable [address] + [place] [address] RICCO FADUMO Unavailable [address] + [place] [address] TOSHIA WILCOX Unavailable [address] [place] [address] + [place] [address] WC Unavailable [address] + [place] [address] RICCO FADUMO Unavailable [address] + [place] [address] TOSHIA WILCOX Unavailable [address] [place] [address] + [place] [address] WC Unavailable [address] + [place] [address] RICCO FADUMO Unavailable [address] + [place] [address] TOSHIA WILCOX Unavailable [address] [place] [address] + [place] [address] [facility] Unavailable [address] + [place] [address] RICCO FADUMO Unavailable [address] + [place] [address] TOSHIA WILCOX Unavailable [address] [place] [address] + [place] [address] [facility] Unavailable [address] + [place] [address] RICCO, FADUMO Unavailable [address] + [place] [address] KATHLEEN WILCOXLIE Unavailable [address] [place] [address] + [place] [address] [facility] Unavailable [address] + [place] [address] RICCO, FADUMO Unavailable [address] + [place] [address] KATHLEEN WILCOXLIE Unavailable [address] [place] [address] + [place] [address] [facility] Unavailable [address] + [place] [address] RICCO, FADUMO Unavailable [address] + [place] [address] MARK TOSHIA Unavailable [address] [place] [address] + [place] [address] [facility] Unavailable [address] + [place] [address] RICCO, FADUMO Unavailable [address] + [place] [address] SEAMUS WILCOXE Unavailable [address] [place] [address] + [place] [address] [facility] Unavailable [address] + [place] [address] RICCO, FADUMO Unavailable [address] + [place] [address] KATHLEEN WILCOXLIE Unavailable [address] [place] [address] + [place] [address] [facility] Unavailable [address] + [place] [address] RICCO, FADUMO Unavailable [address] + [place] [address] KATHLEEN WILCOXLIE Unavailable [address] [place] [address] + [place] [address] [facility] Unavailable [address] + [place] [address] RICCO, FADUMO Unavailable [address] + [place] [address] TOSHIA WILCOX Unavailable [address] [place] [address] + [place] [address] [facility] Unavailable [address] + [place] [address] RICCO, FADUMO Unavailable [address] + [place] [address] TOSHIA WILCOX Unavailable [address] [place] [address] + [place] [address] [facility] Unavailable [address] + [place] [address] RICCO, FADUMO Unavailable [address] + [place] [address] SEAMUS WILCOXE Unavailable [address] [place] [address] + [place] [address] [facility] Unavailable [address] + [place] [address] RICCO, FADUMO Unavailable [address] + [place] [address] TOSHIA WILCOX Unavailable [address] [place] [address] + [place] [address] WC Unavailable [address] + [place] [address] RICCO, FADUMO Unavailable [address] + [place] [address] TOSHIA WILCOX Unavailable [address] [place] [address] + [place] [address] [facility] Unavailable [address] + [place] [address] RICCO, FADUMO Unavailable [address] + [place] [address] TOSHIA WILCOX Unavailable [address] [place] [address] + [place] [address] [facility] Unavailable [address] + [place] [address] RICCO, FADUMO Unavailable [address] + [place] [address] TOSHIA WILCOX Unavailable [address] [place] [address] + [place] [address] [facility] Unavailable [address] + [place] [address] RICCO, FADUMO Unavailable [address] + [place] [address] TOSHIA WILCOX Unavailable [address] [place] [address] + [place] [address] [facility] Unavailable [address] + [place] [address] RICCO, FADUMO Unavailable [address] + [place] [address] TOSHIA WILCOX Unavailable [address] [place] [address] + [place] [address] [facility] Unavailable [address] + [place] [address] RICCO, FADUMO Unavailable [address] + [place] [address] TOSHIA WILCOX Unavailable [address] [place] [address] + [place] [address] [facility] Unavailable [address] + [place] [address] RICCO, FADUMO Unavailable [address] + [place] [address] TOSHIA WILCOX Unavailable [address] [place] [address] + [place] [address] [facility] Unavailable [address] + [place] [address] RICCO, FADUMO Unavailable [address] + [place] [address] TOSHIA WILCOX Unavailable [address] [place] [address] + [place] [address] [facility] Unavailable [address] + [place] [address] RICCO, FADUMO Unavailable [address] + [place] [address] MARK, TOSHIA Unavailable [address] [place] [address] + [place] [address] [facility] Unavailable [address] + [place] [address] RICCO, FADUMO Unavailable [address] + [place] [address] MARK TOSHIA Unavailable [address] [place] [address] + [place] [address] [facility] Unavailable [address] + [place] [address] RICCO, FADUMO Unavailable [address] + [place] [address] KATHLEEN WILCOXLIE Unavailable [address] [place] [address] + [place] [address] [facility] Unavailable [address] + [place] [address] RICCO, FADUMO Unavailable [address] + [place] [address] KATHLEEN WILCOXLIE Unavailable [address] [place] [address] + [place] [address] [facility] Unavailable [address] + [place] [address] RICCO, FADUMO Unavailable [address] + [place] [address] KATHLEEN WILCOXLIE Unavailable [address] [place] [address] + [place] [address] WC Unavailable [address] + [place] [address] RICCO, FADUMO Unavailable [address] + [place] [address] MARK TOSHIA Unavailable [address] [place] + [place] [address] [facility] Unavailable [address] + [place] [address] RICCO, FADUMO Unavailable [address] + [place] [address] MARK TOSHIA Unavailable [address] [place] [address] + [place] [address] [facility] Unavailable [address] + [place] [address] FADUMO CHACKO Unavailable [address] [facility] + [place] [address] TOSHIA WILCOX Unavailable [email or web address] + [place] [address] [facility] Unavailable [address] + [place] [id number] Care Team Providers Name Role Phone ROSHNI, [...] MASCI, CLIFFORD James Referring Unavailable ASIA REYES (SENIOR PRODUCER) Attending Unavailable MASCI, CLIFFORD James Referring Unavailable MASCI, CLIFFORD James Attending Unavailable MASCI, CLIFFORD James Referring Unavailable MASCI, CLIFFORD James Attending Unavailable MASCI, CLIFFORD James Referring Unavailable ASIA REYES (SENIOR PRODUCER) Attending Unavailable MASCI, CLIFFORD James Referring Unavailable [...] Unknown 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 / C50.411(ICD-10) 04/17/2018 Unknown 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 / Hospital C78.02(ICD-10) Repository 04/17/2018 Unknown Z17.1 - Estrogen MascClifford mckeon Active [place] receptor negative Community status [ER-] / Hospital Z17.1(ICD-10) Repository 04/20/2018 Unknown Z51.11 - Encounter MascClifford mckeon Active [place] for antineoplastic Community chemotherapy / Hospital Z51.11(ICD-10) Repository 01/27/2018 Unknown 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 / Hospital C79.51(ICD-10) Repository 10/20/2017 Active Unknown / [facility] [place] Repository 10/05/2017 Unknown C50.911 - Malignant MascClifford mckeon Active [place] neoplasm of Community unspecified site of Hospital right female breast Repository / C50.911(ICD-10) 09/15/2017 Unknown R10.84 - Generalized Jacinto Person Active [place] abdominal pain / Community R10.84(ICD-10) Hospital Repository 11/07/2017 Unknown R41.0 - Johnny Santos Active [place] Disorientation, Community unspecified / Hospital R41.0(ICD-10) Repository PROCEDURES PROCEDURES No Procedure Records FoundRESULTS RESULTS CBC W/DIFF, AUTOMATED Collected: 05/09/2018 Status: F Source: [place] 8:14 AM [facility] REPOSITORY TYPE CODE TESTS RESULT OUT [...] Lymph 1.63 Performed By: #### L100.0100 #### [facility] [address] [place], [place] [address]all [facility] [place], [address] BASIC METABOLIC Collected: 05/09/2018 Status: F Source: [place] PROFILE (BMP) 8:14 AM [facility] REPOSITORY TYPE CODE TESTS RESULT OUT OF [...] 8 Performed By: #### L500.2500, L500.3400 #### [facility] [address] [place], [place], [id number] LIVER PROFILE Collected: 05/09/2018 Status: F Source: [place] 8:14 AM [facility] REPOSITORY TYPE CODE TESTS RESULT OUT OF [...] 0.09 Performed By: #### L500.2500, L500.3400 #### [facility] [address] [place], [place], [address] PROGRESS Observed: 05/03/2018 Status: COMPLETED Source: [place] 8:50 AM [facility] REPOSITORY HNO ID: [id number] Author: Clifford Barakat Service: (none) Author Type: [...] stopped after cycle #2. Was seen by cheese cooker at . Biopsy showed myopathy, but etiology [...] poorly differentiated carcinoma. See comment. COMMENT Immunohistochemistry ([id number]) does not rule out a breast primary. There is focal perinodal extension of tumor. Clinical correlation is suggested. ANTIBODY / CLONE RESULT Block 1 Mammaglobin (31A5) negative GATA3 (L50-823) positive, rare, dim CK8 (20scncO06) positive Ki-67 (30-9) positive, moderate to high ER (6F11) negative 0% KS (1E2) negative 0% CK19 (A53-B/A2.26) positive Cyclin D1/BCL-1 (SP4) positive CEA (11-7/TF-3HB-1) negative SHELLI (E29) positive CK20 (KS20.8) negative Villin (CWWB1) negative RCC (PN-15) negative CA125 (OC125) positive Previous therapy for metastatic disease: 1) Cisplatin (+/- PARP inhibitor on trial). 2) Boyle/carbo. She underwent a CT scan of the neck, chest abdomen and pelvis at [facility] on 10/05/2017. The CT of the [...] Came off trial. She was seen at [facility] and did not qualify for the [...] No jaundice or rash. No petechiae. 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 No focal motor [...] DO CNOVSP Observed: 05/03/2018 Status: COMPLETED Source: [place] 8:30 AM [facility] REPOSITORY Visit (SP) Office (DANYEL) PEDRO LUIS WILCOX ([id number]) 1970 F Date Time Provider Department 05/03/18 [...] stopped after cycle #2. Was seen by cheese cooker at . Biopsy showed myopathy, but etiology [...] poorly differentiated carcinoma. See comment. COMMENT Immunohistochemistry ([id number]) does not rule out a breast primary. There is focal perinodal extension of tumor. Clinical correlation is suggested. ANTIBODY / CLONE RESULT Block 1 Mammaglobin (31A5) negative GATA3 (L50-823) positive, rare, dim CK8 (94hvoqO23) positive Ki-67 (30-9) positive, moderate to high ER (6F11) negative 0% KS (1E2) negative 0% CK19 (A53-B/A2.26) positive Cyclin D1/BCL-1 (SP4) positive CEA (11-7/TF-3HB-1) negative SHELLI (E29) positive CK20 (KS20.8) negative Villin (CWWB1) negative RCC (PN-15) negative CA125 (OC125) positive Previous therapy for metastatic disease: 1) Cisplatin (+/- PARP inhibitor on trial). 2) Boyle/carbo. She underwent a CT scan of the neck, chest abdomen and pelvis at [facility] on 10/05/2017. The CT of the [...] Came off trial. She was seen at [facility] and did not qualify for the [...] No jaundice or rash. No petechiae. 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 No focal motor [...] Clifford Barakat DO Referring Provider: CLIFFORD BARAKAT [[id number]] Allergies As of Date: 05/03/2018 (No Known [...] More... HYPERLIPIDEMIA NEC/NOS [E78.5] INVALID FOR* FIBROMYALGIA [[id number]] INVALID FOR* OVERWEIGHT [E66.9] INVALID FOR* OTHER [...] 04/25/2018 Status: F Source: [place] 12:25 PM [facility] REPOSITORY TYPE CODE TESTS RESULT OUT OF [...] Lymph 1.81 Performed By: #### L100.0100 #### [facility] [address] [place], [place], [address] BASIC METABOLIC Collected: 04/25/2018 Status: F Source: [place] PROFILE ([facility]) 12:25 PM [facility] REPOSITORY TYPE CODE TESTS RESULT OUT OF [...] 9 Performed By: #### L500.2500, L500.3400 #### [facility] [address] [facility] [place], [address] LIVER PROFILE Collected: 04/25/2018 Status: F Source: [place] 12:25 PM [facility] REPOSITORY TYPE CODE TESTS RESULT OUT OF [...] 0.06 Performed By: #### L500.2500, L500.3400 #### [facility] [address] [place], [address] CBC W/DIFF, AUTOMATED Collected: 04/19/2018 Status: F Source: [place] 7:40 AM [facility] REPOSITORY TYPE CODE TESTS RESULT OUT OF [...] Lymph 2.05 Performed By: #### L100.0100 #### [facility] [address] [place], [place], [address] BASIC METABOLIC Collected: 04/19/2018 Status: F Source: [place] PROFILE ([facility]) 7:40 AM [facility] REPOSITORY TYPE CODE TESTS RESULT OUT OF [...] 10 Performed By: #### L500.2500, L500.3400 #### [facility] [address] [place], [address] LIVER PROFILE Collected: 04/19/2018 Status: F Source: [place] 7:40 AM [facility] REPOSITORY TYPE CODE TESTS RESULT OUT OF [...] 0.07 Performed By: #### L500.2500, L500.3400 #### [facility] [address] [place], [address] PROGRESS Observed: 04/12/2018 Status: COMPLETED Source: [place] 3:[address] [facility] REPOSITORY HNO ID: [id number] Author: Isha Servin (Sw) Service: (none) Author Type: Contract Lead Type: Progress Notes Filed: 04/12/2018 3:54 PM Note Text: Social Work Problem Referral Note INFORMATION/REFERRAL : Pedro Luis Wilcox 47 year old female was referred by Nurse Crystal with [facility] to [facility] Social Work for the following reason(s): [...] Nunez CNSW Observed: 04/12/2018 Status: COMPLETED Source: [place] 12:00 AM [facility] REPOSITORY Social Work (DANYEL) PEDRO LUIS WILCOX ([id number]) 1970 F Date Time Provider Department 04/12/18 ISHA SERVIN (SW) During your visit today, we recorded the following information about you: ANNAMARIA Schroeder 04/12/2018 3:54 PM Signed Social Work Problem Referral Note INFORMATION/REFERRAL : Pedro Luis Wilcox 47 year old female was referred by Nurse Crystal with [facility] to [facility] Social Work for the following reason(s): [...] More... HYPERLIPIDEMIA NEC/NOS [E78.5] INVALID FOR* FIBROMYALGIA [[id number]] INVALID FOR* OVERWEIGHT [E66.9] INVALID FOR* OTHER [...] 04/12/18 PROGRESS Observed: 04/04/2018 Status: COMPLETED Source: [place] 9:15 AM [facility] REPOSITORY HNO ID: [id number] Author: Clifford Barakat Service: (none) Author Type: [...] stopped after cycle #2. Was seen by cheese cooker at . Biopsy showed myopathy, but etiology [...] poorly differentiated carcinoma. See comment. COMMENT Immunohistochemistry ([id number]) does not rule out a breast primary. There is focal perinodal extension of tumor. Clinical correlation is suggested. ANTIBODY / CLONE RESULT Block 1 Mammaglobin (31A5) negative GATA3 (L50-823) positive, rare, dim CK8 (47ldkdJ69) positive Ki-67 (30-9) positive, moderate to high ER (6F11) negative 0% KS (1E2) negative 0% CK19 (A53-B/A2.26) positive Cyclin D1/BCL-1 (SP4) positive CEA (11-7/TF-3HB-1) negative SHELLI (E29) positive CK20 (KS20.8) negative Villin (CWWB1) negative RCC (PN-15) negative CA125 (OC125) positive Previous therapy for metastatic disease: 1) Cisplatin (+/- PARP inhibitor on trial). 2) Boyle/carbo. She underwent a CT scan of the neck, chest abdomen and pelvis at [facility] on 10/05/2017. The CT of the [...] Came off trial. She was seen at [facility] and did not qualify for the [...] No jaundice or rash. No petechiae. 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 No focal motor [...] DO CNOVSP Observed: 04/04/2018 Status: COMPLETED Source: [place] 9:10 AM [facility] REPOSITORY Visit (SP) Office (DANYEL) PEDRO LUIS WILCOX ([id number]) 1970 F Date Time Provider Department 04/04/18 9:10 AM CLIFFORD BARAKAT During your visit today, we recorded the following information about you: Temperature Pulse Blood pressure Weight 98.9 degrees 104/minute 145/81 89.6 kg Federica Pimentel TIFFANIE 04/04/2018 9:23 AM Signed Est patient. Bone scan @ [facility]. Federica Leyla Barakat DO 04/04/2018 9:39 AM [...] stopped after cycle #2. Was seen by cheese cooker at . Biopsy showed myopathy, but etiology [...] poorly differentiated carcinoma. See comment. COMMENT Immunohistochemistry ([id number]) does not rule out a breast primary. There is focal perinodal extension of tumor. Clinical correlation is suggested. ANTIBODY / CLONE RESULT Block 1 Mammaglobin (31A5) negative GATA3 (L50-823) positive, rare, dim CK8 (54pizxN74) positive Ki-67 (30-9) positive, moderate to high ER (6F11) negative 0% KS (1E2) negative 0% CK19 (A53-B/A2.26) positive Cyclin D1/BCL-1 (SP4) positive CEA (11-7/TF-3HB-1) negative SHELLI (E29) positive CK20 (KS20.8) negative Villin (CWWB1) negative RCC (PN-15) negative CA125 (OC125) positive Previous therapy for metastatic disease: 1) Cisplatin (+/- PARP inhibitor on trial). 2) Boyle/carbo. She underwent a CT scan of the neck, chest abdomen and pelvis at [facility] on 10/05/2017. The CT of the [...] Came off trial. She was seen at [facility] and did not qualify for the [...] No jaundice or rash. No petechiae. 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 No focal motor [...] Clifford Barakat DO Referring Provider: CLIFFORD BARAKAT [[id number]] Allergies As of Date: 04/04/2018 (No Known [...] More... HYPERLIPIDEMIA NEC/NOS [E78.5] INVALID FOR* FIBROMYALGIA [[id number]] INVALID FOR* OVERWEIGHT [E66.9] INVALID FOR* OTHER [...] Status: Signed Est patient. Bone scan @ [facility]. Federica Pimentel LPN Encounter Status:Closed by CLIFFORD BARAKAT DO on 04/04/18 CBC W/DIFF, AUTOMATED Collected: 04/04/2018 Status: F Source: [place]UL[place] 7:29 AM [facility] REPOSITORY TYPE CODE TESTS RESULT OUT OF [...] Lymph 1.45 Performed By: #### L100.0100 #### [facility] [place], [address] BASIC METABOLIC Collected: 04/04/2018 Status: F Source: [place]UL[place] PROFILE (BMP) 7:29 AM [facility] REPOSITORY TYPE CODE TESTS RESULT OUT OF [...] 7 Performed By: #### L500.2500, L500.3400 #### [facility] [address] [place], [address] LIVER PROFILE Collected: 04/04/2018 Status: F Source: VENETIA 7:29 AM [facility] REPOSITORY TYPE CODE TESTS RESULT OUT OF [...] 0.06 Performed By: #### L500.2500, L500.3400 #### [facility] [address] [place], [address] THORACIC SPINE 3 Observed: 04/03/2018 Status: F Source: VENETIA VIEWS 11:02 AM [facility] REPOSITORY [facility] Imaging Services [address] [place] [address] Thoracic Spine 3 Views MR#: [id number] Acct: [id number] Name: PEDRO LUIS WILCOX Rep #: [id number] : 1970 F 47 From: Marck Garcia MD PCP: Jacinto Person MD Status: REG CLI Study: Thoracic Spine 3 Views Date of Exam: 04/03/18 Exam# [id number] Ordering Dr: Clifford Barakat DO STUDY: X-RAY [...] CC: Jacinto Person MD; Clifford Barakat DO Freight Elevator Erector: Signed BONE SCAN WHOLE Observed: 03/30/2018 Status: F Source: VENETIA BODY 10:29 AM [facility] REPOSITORY [facility] Imaging Services [address] [place] [address] Bone Scan Whole Body MR#: [id number] Acct: [id number] Name: PEDRO LUIS WILCOX Rep #: [id number] : 1970 F 47 From: Clay Real DO PCP: Jacinto Person MD Status: REG CLI Study: Bone Scan Whole Body Date of Exam: 03/30/18 Exam# [id number] Ordering Dr: Clifford Barakat DO CLINICAL: 47-year-old [...] CC: Jacinto Person MD; Clifford Barakat DO Freight Elevator Erector: Signed ABDOMEN/PELVIS WITH Observed: 03/27/2018 Status: F Source: KULWINDER CONTRAST 7:52 AM [facility] REPOSITORY [facility] Imaging Services [address] [place] [address] Abdomen/Pelvis WITH Contrast MR#: [id number] Acct: [id number] Name: PEDRO LUIS WILCOX Rep #: [id number] : 1970 F 47 From: Jina Arciniega MD PCP: Jacinto Person MD Status: REG CLI Study: Abdomen/Pelvis WITH Contrast Date of Exam: 03/27/18 Exam# [id number] Ordering Dr: Clifford Barakat DO STUDY: CT [...] CC: Jacinto Person MD; Clifford Barakat DO Freight Elevator Erector: Signed CHEST WITH CONTRAST Observed: 03/27/2018 Status: F Source: KULWINDER 7:52 AM [facility] REPOSITORY [facility] Imaging Services [address] [place] [address] Chest WITH Contrast MR#: [id number] Acct: [id number] Name: PEDRO LUIS WILCOX Rep #: [id number] : 1970 F 47 From: Jina Arciniega MD PCP: Jacinto Person MD Status: REG CLI Study: Chest WITH Contrast Date of Exam: 03/27/18 Exam# [id number] Ordering Dr: Clifford Barakat DO STUDY: CT [...] CC: Jacinto Person MD; Clifford Barakat DO Freight Elevator Erector: Signed CBC W/DIFF, AUTOMATED Collected: 03/21/2018 Status: F Source: KULWINDER 1:17 PM [facility] REPOSITORY TYPE CODE TESTS RESULT OUT OF [...] Lymph 1.53 Performed By: #### L100.0100 #### [facility] [address] [facility] [address] [place], [place], [address] BASIC METABOLIC Collected: 03/21/2018 Status: F Source: KULWINDER PROFILE (BMP) 1:17 PM [facility] REPOSITORY TYPE CODE TESTS RESULT OUT OF [...] 9 Performed By: #### L500.2500, L500.3400 #### [facility] [address] [facility]. [place], [place], [address] LIVER PROFILE Collected: 03/21/2018 Status: F Source: UKLWINDER 1:17 PM [facility] REPOSITORY TYPE CODE TESTS RESULT OUT OF [...] 0.08 Performed By: #### L500.2500, L500.3400 #### [facility] [address] [place], [address] [facility] Observed: 03/21/2018 Status: COMPLETED Source: ROBERT 12:00 AM [facility] REPOSITORY Telephone (HEMAWS) PEDRO LUIS WILCOX ([id number]) 1970 F Date Time Provider Department 03/21/18 [...] More... HYPERLIPIDEMIA NEC/NOS [E78.5] INVALID FOR* FIBROMYALGIA [[id number]] INVALID FOR* OVERWEIGHT [E66.9] INVALID FOR* OTHER [...] 03/13/2018 Status: F Source: KUL[place]ER 10:40 AM [facility] REPOSITORY TYPE CODE TESTS RESULT OUT OF [...] Lymph 1.32 Performed By: #### L100.0100 #### [facility] [address] [place], [address] BASIC METABOLIC Collected: 03/13/2018 Status: F Source: VENETIA PROFILE ([facility]) 10:40 AM [facility] REPOSITORY TYPE CODE TESTS RESULT OUT OF [...] 12 Performed By: #### L500.2500, L500.3400 #### [facility] [address] [place], [place], [id number] LIVER PROFILE Collected: 03/13/2018 Status: F Source: VENETIA 10:40 AM [facility] REPOSITORY TYPE CODE TESTS RESULT OUT OF [...] 0.07 Performed By: #### L500.2500, L500.3400 #### [facility] [address] [place], [place], [id number] PROGRESS Observed: 03/06/2018 Status: COMPLETED Source: [place] 9:25 AM [facility] REPOSITORY HNO ID: [id number] Author: Clifford Barakat Service: (none) Author Type: [...] stopped after cycle #2. Was seen by cheese cooker at . Biopsy showed myopathy, but etiology [...] poorly differentiated carcinoma. See comment. COMMENT Immunohistochemistry ([id number]) does not rule out a breast primary. There is focal perinodal extension of tumor. Clinical correlation is suggested. ANTIBODY / CLONE RESULT Block 1 Mammaglobin (31A5) negative GATA3 (L50-823) positive, rare, dim CK8 (32rbvaK43) positive Ki-67 (30-9) positive, moderate to high ER (6F11) negative 0% KS (1E2) negative 0% CK19 (A53-B/A2.26) positive Cyclin D1/BCL-1 (SP4) positive CEA (11-7/TF-3HB-1) negative SHELLI (E29) positive CK20 (KS20.8) negative Villin (CWWB1) negative RCC (PN-15) negative CA125 (OC125) positive Previous therapy for metastatic disease: 1) Cisplatin (+/- PARP inhibitor on trial). 2) Boyle/carbo. She underwent a CT scan of the neck, chest abdomen and pelvis at [facility] on 10/05/2017. The CT of the [...] Came off trial. She was seen at [facility] and did not qualify for the [...] No jaundice or rash. No petechiae. 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 No focal motor [...] scan in about a month. [facility] Observed: 03/06/2018 Status: COMPLETED Source: [place] 9:10 AM [facility] REPOSITORY Visit (SP) Office (HE[place]NIKO[place]) PEDRO LUIS WILCOX ([id number]) 1970 F Date Time Provider Department 03/06/18 [...] stopped after cycle #2. Was seen by cheese cooker at . Biopsy showed myopathy, but etiology [...] poorly differentiated carcinoma. See comment. COMMENT Immunohistochemistry ([id number]) does not rule out a breast primary. There is focal perinodal extension of tumor. Clinical correlation is suggested. ANTIBODY / CLONE RESULT Block 1 Mammaglobin (31A5) negative GATA3 (L50-823) positive, rare, dim CK8 (46dzzpZ49) positive Ki-67 (30-9) positive, moderate to high ER (6F11) negative 0% KS (1E2) negative 0% CK19 (A53-B/A2.26) positive Cyclin D1/BCL-1 (SP4) positive CEA (11-7/TF-3HB-1) negative SHELLI (E29) positive CK20 (KS20.8) negative Villin (CWWB1) negative RCC (PN-15) negative CA125 (OC125) positive Previous therapy for metastatic disease: 1) Cisplatin (+/- PARP inhibitor on trial). 2) Boyle/carbo. She underwent a CT scan of the neck, chest abdomen and pelvis at [facility] on 10/05/2017. The CT of the [...] Came off trial. She was seen at [facility] and did not qualify for the [...] No jaundice or rash. No petechiae. 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 No focal motor [...] Clifford Barakat DO Referring Provider: CLIFFORD BARAKAT [[id number]] Allergies As of Date: 03/06/2018 (No Known Allergies) Date Reviewed: 03/06/2018 Reviewed by: Federica Pimentel LPN - Fully Assessed Reason for Visit: Established Patient [175] Primary Visit Diagnosis:Malignant neoplasm of upper-outer quadrant of right breast in female, estrogen receptor negative (HCC) [C50.411, Z17.1] Other Visit Diagnoses:Malignant neoplasm metastatic to left lung (HCC) [C78.02] Bone metastases (HCC) [C79.51] Order(s):CT ABD/PEL W IVCON [[id number]] Order #: [id number] FUTURE CT CHEST W IVCON [[id number]] Order #: [id number] FUTURE iv contrast (will be provided with [...] 1 EachRfl: 0 NM BONE WHOLE BODY [3152410] Order #: [id number] FUTURE furosemide (LASIX) 20 mg tabletTake 2 [...] More... HYPERLIPIDEMIA NEC/NOS [E78.5] INVALID FOR* FIBROMYALGIA [[id number]] INVALID FOR* Priority: Moderate OVERWEIGHT [E66.9] INVALID [...] 02/28/2018 Status: F Source: KULWINDER 7:36 AM [facility] REPOSITORY TYPE CODE TESTS RESULT OUT OF [...] Lymph 1.63 Performed By: #### L100.0100 #### [facility] [address] [place], [address] BASIC METABOLIC Collected: 02/28/2018 Status: F Source: VENETIA PROFILE ([facility]) 7:36 AM [facility] REPOSITORY TYPE CODE TESTS RESULT OUT OF [...] 7 Performed By: #### L500.2500, L500.3400 #### [facility] [address] [place], [place], [address] LIVER PROFILE Collected: 02/28/2018 Status: F Source: VENETIA 7:36 AM [facility] REPOSITORY TYPE CODE TESTS RESULT OUT OF [...] 0.05 Performed By: #### L500.2500, L500.3400 #### [facility] [address] [place], [place], [address] CBC W/DIFF, AUTOMATED Collected: 02/21/2018 Status: F Source: VENETIA 7:42 AM [facility] REPOSITORY TYPE CODE TESTS RESULT OUT OF [...] Lymph 1.49 Performed By: #### L100.0100 #### [facility] [address] [place], [address] BASIC METABOLIC Collected: 02/21/2018 Status: F Source: VENETIA PROFILE ([facility]) 7:42 AM [facility] REPOSITORY TYPE CODE TESTS RESULT OUT OF [...] 9 Performed By: #### L500.2500, L500.3400 #### [facility] [address] [place], [address] LIVER PROFILE Collected: 02/21/2018 Status: F Source: VENETIA 7:42 AM [facility] REPOSITORY TYPE CODE TESTS RESULT OUT OF [...] 0.06 Performed By: #### L500.2500, L500.3400 #### [facility] [address] [facility] [place], [address] PROGRESS Observed: 02/14/2018 Status: COMPLETED Source: [place] 9:[address] 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 Patient denies other needs. 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 HYPERLIPIDEMIA NEC/NOS [E78.5] INVALID FOR* FIBROMYALGIA [[id number]] INVALID FOR* Priority: Moderate OVERWEIGHT [E66.9] INVALID [...] 02/14/18 PROGRESS Observed: 02/13/2018 Status: COMPLETED Source: [place] 9:36 AM [facility] REPOSITORY [facility] ID: [id number] Author: Clifford Barakat Service: (none) Author Type: [...] stopped after cycle #2. Was seen by cheese cooker at . Biopsy showed myopathy, but etiology [...] poorly differentiated carcinoma. See comment. COMMENT Immunohistochemistry ([id number]) does not rule out a breast primary. There is focal perinodal extension of tumor. Clinical correlation is suggested. ANTIBODY / CLONE RESULT Block 1 Mammaglobin (31A5) negative GATA3 (L50-823) positive, rare, dim CK8 (65tcmrA42) positive Ki-67 (30-9) positive, moderate to high ER (6F11) negative 0% KS (1E2) negative 0% CK19 (A53-B/A2.26) positive Cyclin D1/BCL-1 (SP4) positive CEA (11-7/TF-3HB-1) negative SHELLI (E29) positive CK20 (KS20.8) negative Villin (CWWB1) negative RCC (PN-15) negative CA125 (OC125) positive Previous therapy for metastatic disease: 1) Cisplatin (+/- PARP inhibitor on trial). 2) Boyle/carbo. She underwent a CT scan of the neck, chest abdomen and pelvis at [facility] on 10/05/2017. The CT of the [...] Came off trial. She was seen at [facility] and did not qualify for the [...] No jaundice or rash. No petechiae. 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 No focal motor [...] DO CNOVSP Observed: 02/13/2018 Status: COMPLETED Source: [place] 9:30 AM [facility] REPOSITORY Visit (SP) Office (DANYEL) PEDRO LUIS WILCOX ([id number]) 1970 F Date Time Provider Department 02/13/18 [...] stopped after cycle #2. Was seen by cheese cooker at . Biopsy showed myopathy, but etiology [...] poorly differentiated carcinoma. See comment. COMMENT Immunohistochemistry ([id number]) does not rule out a breast primary. There is focal perinodal extension of tumor. Clinical correlation is suggested. ANTIBODY / CLONE RESULT Block 1 Mammaglobin (31A5) negative GATA3 (L50-823) positive, rare, dim CK8 (99umnxY90) positive Ki-67 (30-9) positive, moderate to high ER (6F11) negative 0% KS (1E2) negative 0% CK19 (A53-B/A2.26) positive Cyclin D1/BCL-1 (SP4) positive CEA (11-7/TF-3HB-1) negative SHELLI (E29) positive CK20 (KS20.8) negative Villin (CWWB1) negative RCC (PN-15) negative CA125 (OC125) positive Previous therapy for metastatic disease: 1) Cisplatin (+/- PARP inhibitor on trial). 2) Boyle/carbo. She underwent a CT scan of the neck, chest abdomen and pelvis at [facility] on 10/05/2017. The CT of the [...] Came off trial. She was seen at [facility] and did not qualify for the [...] No jaundice or rash. No petechiae. 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 No focal motor [...] Clifford Barakat DO Referring Provider: CLIFFORD BARAKAT [[id number]] Allergies As of Date: 02/13/2018 (No Known [...] More... HYPERLIPIDEMIA NEC/NOS [E78.5] INVALID FOR* FIBROMYALGIA [[id number]] INVALID FOR* Priority: Moderate OVERWEIGHT [E66.9] INVALID [...] NO JOINT Observed: 02/10/2018 Status: F Source: VENETIA W/WO CONT 9:37 AM [facility] REPOSITORY [facility] Imaging Services [address] [place] [address] Lower Ext No Joint W/WO Cont MR#: [id number] Acct: [id number] Name: PEDRO LUIS WILCOX Rep #: [id number] : 1970 F 47 From: Mook Pimentel MD PCP: Jacinto Person MD Status: REG CLI Study: Lower Ext No Joint W/WO Cont Date of Exam: 02/10/18 Exam# [id number] Ordering Dr: Clifford Barakat DO STUDY: MRI [...] CC: Jacinto Person MD; Clifford Barakat DO Freight Elevator Erector: Signed CTA CHEST W/WO Observed: 02/07/2018 Status: F Source: [place] CONTRAST 11:42 AM [facility] REPOSITORY [facility] Imaging Services [address] [place] [address] CTA Chest W/WO Contrast MR#: [id number] Acct: [id number] Name: PEDRO LUIS WILCOX Rep #: [id number] : 1970 F 47 From: Rylan Schmitz MD PCP: Care Physician, No Primary Status: REG CLI Study: CTA Chest W/WO Contrast Date of Exam: 02/07/18 Exam# [id number] Ordering Dr: Clifford Barakat DO STUDY: CTA [...] No Primary Care Physician; Clifford Barakat DO Freight Elevator Erector: Signed PROGRESS Observed: 02/07/2018 Status: COMPLETED Source: [place] 11:28 AM [facility] REPOSITORY HNO ID: [id number] Author: Clifford Barakat Service: (none) Author Type: [...] stopped after cycle #2. Was seen by cheese cooker at . Biopsy showed myopathy, but etiology [...] poorly differentiated carcinoma. See comment. COMMENT Immunohistochemistry ([id number]) does not rule out a breast primary. There is focal perinodal extension of tumor. Clinical correlation is suggested. ANTIBODY / CLONE RESULT Block 1 Mammaglobin (31A5) negative GATA3 (L50-823) positive, rare, dim CK8 (90mwdsY16) positive Ki-67 (30-9) positive, moderate to high [...] the neck, chest abdomen and pelvis at [facility] on 10/05/2017. The CT of the [...] Came off trial. She was seen at [facility] and did not qualify for the 2 clinical trials available due to her pre-existing diabetic neuropathy and history of type 1 diabetes. Current therapy: 1) Boyle/carbo. Interim history: She started developing sharp pleuritic [...] No jaundice or rash. No petechiae. 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 No focal motor [...] for a stat CT chest today at [facility]. -If negative she may proceed with chemotherapy. Clifford Barakat DO CNOVSP Observed: 02/07/2018 Status: COMPLETED Source: [place] 8:50 AM [facility] REPOSITORY Visit (SP) Office (DANYEL) PEDRO LUIS WILCOX ([id number]) 1970 F Date Time Provider Department 02/07/18 [...] stopped after cycle #2. Was seen by cheese cooker at . Biopsy showed myopathy, but etiology [...] poorly differentiated carcinoma. See comment. COMMENT Immunohistochemistry ([id number]) does not rule out a breast primary. There is focal perinodal extension of tumor. Clinical correlation is suggested. ANTIBODY / CLONE RESULT Block 1 Mammaglobin (31A5) negative GATA3 (L50-823) positive, rare, dim CK8 (34tiihB73) positive Ki-67 (30-9) positive, moderate to high [...] the neck, chest abdomen and pelvis at [facility] on 10/05/2017. The CT of the [...] Came off trial. She was seen at [facility] and did not qualify for the 2 clinical trials available due to her pre-existing diabetic neuropathy and history of type 1 diabetes. Current therapy: 1) Boyle/carbo. Interim history: She started developing sharp pleuritic [...] No jaundice or rash. No petechiae. 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 No focal motor [...] for a stat CT chest today at [facility]. -If negative she may proceed with chemotherapy. Clifford Barakat DO Referring Provider: CLIFFORD BARAKAT [[id number]] Allergies As of Date: 02/07/2018 (No Known Allergies) Date Reviewed: 02/07/2018 Reviewed by: Federica Pimentel LPN - Fully Assessed Reason for Visit: Acute Visit [896] Primary Visit Diagnosis:Malignant neoplasm of upper-outer quadrant of right breast in female, estrogen receptor negative (HCC) [C50.411, Z17.1] Other Visit Diagnoses:Bone metastases (HCC) [C79.51] Pleuritic chest pain [R07.81] Order(s):CT CHEST W IVCON PE [[id number]] Order #: [id number] FUTURE iv contrast (will be provided with [...] More... HYPERLIPIDEMIA NEC/NOS [E78.5] INVALID FOR* FIBROMYALGIA [[id number]] INVALID FOR* Priority: Moderate OVERWEIGHT [E66.9] INVALID [...] F Source: [place] PROFILE (BMP) 2:47 PM [facility] REPOSITORY TYPE CODE TESTS RESULT OUT OF [...] 10 Performed By: #### L500.2500, L500.3400 #### [facility] [address] [place], [place], [id number] LIVER PROFILE Collected: 02/06/2018 Status: F Source: [place]ET[place] 2:47 PM [facility] REPOSITORY TYPE CODE TESTS RESULT OUT OF [...] 0.05 Performed By: #### L500.2500, L500.3400 #### [facility] [address] [place], [place], [address] CBC W/DIFF, AUTOMATED Collected: 02/06/2018 Status: F Source: [place]ENETIA 2:47 PM [facility] REPOSITORY TYPE CODE TESTS RESULT OUT OF [...] Lymph 2.34 Performed By: #### L100.0100 #### [facility] [address] [place] [address]. [place], [place], [id number] PROGRESS Observed: 01/31/2018 Status: COMPLETED Source: [place] 2:[address] [facility] REPOSITORY O ID: [id number] Author: Isha Servin (Sw) Service: (none) Author Type: Contract Lead Type: Progress Notes Filed: 01/31/2018 2:25 PM Note Text: Social Work Problem Referral Note INFORMATION/REFERRAL : Pedro Luis Wilcox 47 year old female was referred by [facility] Social Work for the following reason(s): disability planning PERSONS INTERVIEWED: patient INTERVENTION: Information AND Referral Service Co-ordination Affect/Mood: The patient is noted as expressing worry IDENTIFIED PROBLEMS/NEEDS: Continue to assess/collaborate Disability Intervention/Referral to be provided:Arrangements made for continuity of care Information for community resources/agencies IMPRESSION/PLAN: SW met with patient so 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 Patient [...] 01/31/2018 Status: F Source: [place] 8:51 AM [facility] REPOSITORY TYPE CODE TESTS RESULT OUT OF [...] Lymph 1.43 Performed By: #### L100.0100 #### [facility] [address] [facility] [place], [place], [address] BASIC METABOLIC Collected: 01/31/2018 Status: F Source: [place]ET[place] PROFILE (BMP) 8:51 AM [facility] REPOSITORY TYPE CODE TESTS RESULT OUT OF [...] 9 Performed By: #### L500.2500, L500.3400 #### [facility] [address] [place], [address] LIVER PROFILE Collected: 01/31/2018 Status: F Source: [place] 8:51 AM [facility] REPOSITORY TYPE CODE TESTS RESULT OUT OF [...] 0.09 Performed By: #### L500.2500, L500.3400 #### [facility] [address] [place], [address] CNSW Observed: 01/31/2018 Status: COMPLETED Source: ROBERT 12:00 AM [facility] REPOSITORY Social Work (DANYEL) PEDRO LUIS WILCOX ([id number]) 1970 F Date Time Provider Department 01/31/18 ISHA SERVIN (SW) During your visit today, we recorded the following information about you: ANNAMRAIA Schroeder 01/31/2018 2:25 PM Signed Social Work Problem Referral Note INFORMATION/REFERRAL : Pedro Luis Wilcox 47 year old female was referred by [facility] Social Work for the following reason(s): disability planning PERSONS INTERVIEWED: patient INTERVENTION: Information AND Referral Service Co-ordination Affect/Mood: The patient is noted as expressing worry IDENTIFIED PROBLEMS/NEEDS: Continue to assess/collaborate Disability Intervention/Referral to be provided:Arrangements made for continuity of care Information for community resources/agencies IMPRESSION/PLAN: SW met with patient so 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 Patient [...] More... HYPERLIPIDEMIA NEC/NOS [E78.5] INVALID FOR* FIBROMYALGIA [[id number]] INVALID FOR* Priority: Moderate OVERWEIGHT [E66.9] INVALID [...] 01/31/18 PROGRESS Observed: 01/30/2018 Status: COMPLETED Source: [place] 5:[address] [facility] REPOSITORY [facility] ID: [id number] Author: Isha (Hilario) Jameson Service: (none) Author Type: Contract Lead Type: Progress Notes Filed: 01/30/2018 5:03 PM Note Text: Social Work Problem Referral Note INFORMATION/REFERRAL : Pedro Luis Wilcox 47 year old female was referred by [facility] Social Work for the following reason(s): disability [...] Nunez CNSW Observed: 01/30/2018 Status: COMPLETED Source: [place] 12:00 AM [facility] REPOSITORY Social Work (HEMAWS) PEDRO LUIS WILCOX ([id number]) 1970 F Date Time Provider Department 01/30/18 ISHA SERVIN (HILARIO) DANYEL During your visit today, we recorded the following information about you: ANNAMARIA Schroeder 01/30/2018 5:03 PM Signed Social Work Problem Referral Note INFORMATION/REFERRAL : Pedro Luis Wilcox 47 year old female was referred by [facility] Social Work for the following reason(s): disability [...] More... HYPERLIPIDEMIA NEC/NOS [E78.5] INVALID FOR* FIBROMYALGIA [[id number]] INVALID FOR* Priority: Moderate OVERWEIGHT [E66.9] INVALID [...] 2 VIEWS Observed: 01/24/2018 Status: F Source: [place] 10:09 AM [facility] REPOSITORY [facility] Imaging Services [address] [place] [address] Femur Min 2 Views MR#: [id number] Acct: [id number] Name: MARKLANEYPATTI Williamson Rep #: [id number] : 1970 F 47 From: Ruperto Sahu MD PCP: Jacinto Person MD Status: REG CLI Study: Femur Min 2 Views Date of Exam: 01/24/18 Exam# [id number] Ordering Dr: Clifford Barakat DO STUDY: X-RAY [...] CC: Jacinto Person MD; Clifford Barakat DO Freight Elevator Erector: Signed PROGRESS Observed: 01/23/2018 Status: COMPLETED Source: [place] 9:46 AM [facility] REPOSITORY [facility] ID: [id number] Author: Clifford Barakat Service: (none) Author Type: [...] stopped after cycle #2. Was seen by cheese cooker at . Biopsy showed myopathy, but etiology [...] poorly differentiated carcinoma. See comment. COMMENT Immunohistochemistry ([id number]) does not rule out a breast primary. There is focal perinodal extension of tumor. Clinical correlation is suggested. ANTIBODY / CLONE RESULT Block 1 Mammaglobin (31A5) negative GATA3 (L50-823) positive, rare, dim CK8 (04dozjZ62) positive Ki-67 (30-9) positive, moderate to high [...] the neck, chest abdomen and pelvis at [facility] on 10/05/2017. The CT of the [...] Came off trial. She was seen at [facility] and did not qualify for the 2 clinical trials available due to her pre-existing diabetic neuropathy and history of type 1 diabetes. Current therapy: 1) Boyle/carbo. Interim history: Her first 2 cycles of [...] Recently she had a friend and fellow lutheran member who of metastatic cervical cancer at [...] No jaundice or rash. No petechiae. 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 No focal motor [...] DO CNOVSP Observed: 01/23/2018 Status: COMPLETED Source: [place] 9:30 AM [facility] REPOSITORY Visit (SP) Office (DANYEL) PEDRO LUIS WILCOX ([id number]) 1970 F Date Time Provider Department 01/23/18 9:30 AM CLIFFORD BARAKAT During your visit today, we recorded the following information about you: Temperature Pulse Blood pressure Weight 98.6 degrees 104/minute 117/67 87.3 kg Federica Pimentel LPN 01/23/2018 9:56 AM Signed Est patient. Labs today @ [facility] 0900, treatment tomorrow. Federica Barakat [...] stopped after cycle #2. Was seen by cheese cooker at . Biopsy showed myopathy, but etiology [...] poorly differentiated carcinoma. See comment. COMMENT Immunohistochemistry ([id number]) does not rule out a breast primary. There is focal perinodal extension of tumor. Clinical correlation is suggested. ANTIBODY / CLONE RESULT Block 1 Mammaglobin (31A5) negative GATA3 (L50-823) positive, rare, dim CK8 (08xoxoS49) positive Ki-67 (30-9) positive, moderate to high [...] the neck, chest abdomen and pelvis at [facility] on 10/05/2017. The CT of the [...] Came off trial. She was seen at [facility] and did not qualify for the 2 clinical trials available due to her pre-existing diabetic neuropathy and history of type 1 diabetes. Current therapy: 1) Boyle/carbo. Interim history: Her first 2 cycles of [...] Recently she had a friend and fellow lutheran member who of metastatic cervical cancer at [...] No jaundice or rash. No petechiae. 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 No focal motor [...] Clifford Barakat DO Referring Provider: CLIFFORD BARAKAT [[id number]] Allergies As of Date: 01/23/2018 (No Known [...] [R93.6] Order(s):XR FEMUR GENERAL 2V AP/LAT LT [[id number]] Order #: [id number] FUTURE MRI UPPER LEG WO/W IVCON LT [[id number]] Order #: [id number] FUTURE [] iv contrast (will be provided [...] More... HYPERLIPIDEMIA NEC/NOS [E78.5] INVALID FOR* FIBROMYALGIA [[id number]] INVALID FOR* Priority: Moderate OVERWEIGHT [E66.9] INVALID [...] Status: Signed Est patient. Labs today @ [facility] 0900, treatment tomorrow. Federica Pimentel LPN Encounter Status:Closed by CLIFFORD BARAKAT DO on 01/23/18 CBC W/DIFF, AUTOMATED Collected: 01/23/2018 Status: F Source: [place] 8:55 AM [facility] REPOSITORY TYPE CODE TESTS RESULT OUT OF [...] Lymph 1.35 Performed By: #### L100.0100 #### [facility] [address] [place], [address] BASIC METABOLIC Collected: 01/23/2018 Status: F Source: [place] PROFILE (BMP) 8:55 AM [facility] REPOSITORY TYPE CODE TESTS RESULT OUT OF [...] 8 Performed By: #### L500.2500, L500.3400 #### [facility] [address] [place], [address] LIVER PROFILE Collected: 01/23/2018 Status: F Source: [place] 8:55 AM [facility] REPOSITORY TYPE CODE TESTS RESULT OUT OF [...] 0.08 Performed By: #### L500.2500, L500.3400 #### [facility] [address] [place], [address] BONE SCAN WHOLE Observed: 01/20/2018 Status: F Source: [place] BODY 9:45 AM [facility] REPOSITORY [facility] Imaging Services [address] [place] [address] Bone Scan Whole Body MR#: [id number] Acct: [id number] Name: PEDRO LUIS WILCOX Rep #: [id number] : 1970 F 47 From: Clay Real DO PCP: Jacinto Person MD Status: REG CLI Study: Bone Scan Whole Body Date of Exam: 01/20/18 Exam# [id number] Ordering Dr: Clifford Barakat DO CLINICAL: 47-year-old [...] CC: Jacinto Person MD; Clifford Barakat DO Freight Elevator Erector: Signed ABDOMEN/PELVIS WITH Observed: 01/17/2018 Status: F Source: [place] CONTRAST 2:55 PM [facility] REPOSITORY [facility] Imaging Services [address] [place] [address] Abdomen/Pelvis WITH Contrast MR#: [id number] Acct: [id number] Name: PEDRO LUIS WILCOX Rep #: [id number] : 1970 F 47 From: Diomedes Villagran MD PCP: Jacinto Person MD Status: REG CLI Study: Abdomen/Pelvis WITH Contrast Date of Exam: 01/17/18 Exam# [id number] Ordering Dr: Clifford Barakat DO STUDY: CT [...] CC: Jacinto Person MD; Clifford Barakat DO Freight Elevator Erector: Signed CHEST WITH CONTRAST Observed: 01/17/2018 Status: F Source: [place] 2:55 PM [facility] REPOSITORY [facility] Imaging Services [address] [place] [address] Chest WITH Contrast MR#: [id number] Acct: [id number] Name: PEDRO LUIS WILCOX Rep #: [id number] : 1970 F 47 From: Lindsay Escobedo MD PCP: Jacinto Person MD Status: REG CLI Study: Chest WITH Contrast Date of Exam: 01/17/18 Exam# [id number] Ordering Dr: Clifford Barakat DO STUDY: CT [...] CC: Jacinto Person MD; Clifford Barakat DO Freight Elevator Erector: Signed CNOVSP Observed: 01/03/2018 Status: COMPLETED Source: [place] 8:30 AM [facility] REPOSITORY Visit (SP) Office (DANYEL) PEDRO LUIS WILCOX ([id number]) 1970 F Date Time Provider Department 01/03/18 [...] here today for evaluation for chemotherapy at [facility] today. Per Dr. Barakat's previous [...] after cycle #2. ? Was seen by cheese cooker at . Biopsy showed myopathy, but etiology [...] poorly differentiated carcinoma. See comment. COMMENT Immunohistochemistry ([id number]) does not rule out a breast primary. There is focal perinodal extension of tumor. Clinical correlation is suggested. ? ANTIBODY / CLONE RESULT Block 1 Mammaglobin (31A5) negative GATA3 (L50-823) positive, rare, dim CK8 (98otccP21) positive Ki-67 (30-9) positive, moderate to high [...] the neck, chest abdomen and pelvis at [facility] on 10/05/2017. The CT of the [...] off trial. ? She was seen at [facility] and did not qualify for the 2 clinical trials available due to her pre-existing diabetic neuropathy and history of type 1 diabetes. ? Current therapy: 1) Boyle/carbo. I'm ok. I was able to go [...] suspicious rashes or lesions LABS: Done at [facility] Reviewed. ASSESSMENT/PLAN: 1. Malignant neoplasm [...] gemzar/carbo well. - Reviewed labs done at [facility]. - Rx phenergan. Pt. aware to not take with reglan. - Proceed as scheduled today at [facility] for treatment. - CT chest/abd/pelvis/bone scan (to be done at [facility]) after this cycle at [facility]. - Follow up in [address] Barakat to review scans (prior to next cycle) with CBC/CMP (done at [facility]). - Pt. aware to call office with any questions/concerns. The patient indicates understanding of these issues and agrees with the plan. Discussed case with Dr. Barakat who agrees with treatment plan. Asia Reyes APRN.SALVADOR Langston LPN, TIFFANIE 01/03/2018 8:55 AM Signed Est pt, discuss recent lab results. Chemo @ [facility] today Orlando Langston LPN Referring Provider: CLIFFORD BARAKAT [[id number]] Allergies As of Date: 01/03/2018 (No Known Allergies) Date Reviewed: 01/03/2018 Reviewed by: Asia (Buckle Strap Drum Operator) Eric - Fully Assessed Reason for Visit: [...] 20 tabletRfl: 2 CT ABD/PEL W IVCON [[id number]] Order #: [id number] FUTURE CT CHEST W IVCON [[id number]] Order #: [id number] FUTURE iv contrast (will be provided with [...] 1 EachRfl: 0 NM BONE WHOLE BODY [[id number]] Order #: [id number] FUTURE Follow-up and Disposition History Recorded Prescriptions [...] More... HYPERLIPIDEMIA NEC/NOS [E78.5] INVALID FOR* FIBROMYALGIA [RDR4849] INVALID FOR* Priority: Moderate OVERWEIGHT [E66.9] INVALID [...] pt, discuss recent lab results. Chemo @ [facility] today Orlando Langston LPN Encounter Status:Closed by ASIA REYES CNP on 01/04/18 PROGRESS Observed: 01/03/2018 Status: COMPLETED Source: [place] 8:[address] [facility] REPOSITORY HNO ID: [id number] Author: Asia Reyes Service: (none) Author Type: Nurse Practitioner Type: Progress Notes Filed: 01/04/2018 8:36 AM Note Text: Chief Complaint Patient presents with: Established Patient HPI: Pedro Luis Wiclox is a 47 year old female who presents here today for evaluation for chemotherapy at [facility] today. Per Dr. Barakat's previous [...] after cycle #2. ? Was seen by cheese cooker at . Biopsy showed myopathy, but etiology [...] poorly differentiated carcinoma. See comment. COMMENT Immunohistochemistry ([id number]) does not rule out a breast primary. There is focal perinodal extension of tumor. Clinical correlation is suggested. ? ANTIBODY / CLONE RESULT Block 1 Mammaglobin (31A5) negative GATA3 (L50-823) positive, rare, dim CK8 (46lpktS08) positive Ki-67 (30-9) positive, moderate to high [...] the neck, chest abdomen and pelvis at [facility] on 10/05/2017. The CT of the [...] off trial. ? She was seen at [facility] and did not qualify for the 2 clinical trials available due to her pre-existing diabetic neuropathy and history of type 1 diabetes. ? Current therapy: 1) Boyle/carbo. I'm ok. I was able to go [...] suspicious rashes or lesions LABS: Done at [facility] Reviewed. ASSESSMENT/PLAN: 1. Malignant neoplasm [...] gemzar/carbo well. - Reviewed labs done at [facility]. - Rx phenergan. Pt. aware to not take with reglan. - Proceed as scheduled today at [facility] for treatment. - CT chest/abd/pelvis/bone scan (to be done at [facility]) after this cycle at [facility]. - Follow up in [address] Barakat to review scans (prior to next cycle) with CBC/CMP (done at [facility]). - Pt. aware to call office with any questions/concerns. The patient indicates understanding of these issues and agrees with the plan. Discussed case with Dr. Barakat who agrees with treatment plan. Asia Reyes APRN.SENIOR PRODUCER CBC W/DIFF, AUTOMATED Collected: 01/03/2018 Status: F Source: [place] 6:13 AM [facility] REPOSITORY TYPE CODE TESTS RESULT OUT OF [...] Lymph 1.63 Performed By: #### L100.0100 #### [facility] [address] [facility] [place], [address] BASIC METABOLIC Collected: 01/03/2018 Status: F Source: [place] PROFILE ([facility]) 6:13 AM [facility] REPOSITORY TYPE CODE TESTS RESULT OUT OF [...] 10 Performed By: #### L500.2500, L500.3400 #### [facility] [address] [place], [place], [address] LIVER PROFILE Collected: 01/03/2018 Status: F Source: [place] 6:13 AM [facility] REPOSITORY TYPE CODE TESTS RESULT OUT OF [...] 0.06 Performed By: #### L500.2500, L500.3400 #### [facility] [address] [place] [address], [address] CBC W/DIFF, AUTOMATED Collected: 12/20/2017 Status: F Source: [place] 6:26 AM [facility] REPOSITORY TYPE CODE TESTS RESULT OUT OF [...] Lymph 2.23 Performed By: #### L100.0100 #### [facility] [address] [place], [address] BASIC METABOLIC Collected: 12/20/2017 Status: F Source: [place] PROFILE (BMP) 6:26 AM [facility] REPOSITORY TYPE CODE TESTS RESULT OUT OF [...] 10 Performed By: #### L500.2500, L500.3400 #### [facility] [address] [place], [place], [address] LIVER PROFILE Collected: 12/20/2017 Status: F Source: [place] 6:26 AM [facility] REPOSITORY TYPE CODE TESTS RESULT OUT OF [...] 0.05 Performed By: #### L500.2500, L500.3400 #### [facility] [address] [place], [address] CNOVSP Observed: 12/12/2017 Status: COMPLETED Source: [place] 3:50 PM [facility] REPOSITORY Visit (SP) Office (HEMAWS) PEDRO LUIS WILCOX ([id number]) 1970 F Date Time Provider Department 12/12/17 [...] stopped after cycle #2. Was seen by cheese cooker at . Biopsy showed myopathy, but etiology [...] poorly differentiated carcinoma. See comment. COMMENT Immunohistochemistry ([id number]) does not rule out a breast primary. There is focal perinodal extension of tumor. Clinical correlation is suggested. ANTIBODY / CLONE RESULT Block 1 Mammaglobin (31A5) negative GATA3 (L50-823) positive, rare, dim CK8 (09zvfmP55) positive Ki-67 (30-9) positive, moderate to high [...] the neck, chest abdomen and pelvis at [facility] on 10/05/2017. The CT of the [...] Came off trial. She was seen at [facility] and did not qualify for the 2 clinical trials available due to her pre-existing diabetic neuropathy and history of type 1 diabetes. Current therapy: 1) Boyle/carbo. Interim history: She is completed 2 cycles [...] No jaundice or rash. No petechiae. 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 No focal motor [...] neck, chest, abdomen and pelvis done at [facility] on 12/08/2016. There is a barely [...] Clifford Barakat DO Referring Provider: CLIFFORD BARAKAT [[id number]] Allergies As of Date: 12/12/2017 (No Known [...] More... HYPERLIPIDEMIA NEC/NOS [E78.5] INVALID FOR* FIBROMYALGIA [[id number]] INVALID FOR* Priority: Moderate OVERWEIGHT [E66.9] INVALID [...] [Z*INVALID FOR* Visit Notes: >> Federica Pimentel BUCKLE AND BUTTON MAKER Mon Dec 12, 2017 3:41 PM Status: Signed Est patient. Discuss recent labs and treatment tomorrow. Federica Pimetnel TIFFANIE Encounter Status:Closed by CLIFFORD BARAKAT DO on 12/12/17 PROGRESS Observed: 12/12/2017 Status: COMPLETED Source: [place] 3:[address] [facility] REPOSITORY HNO ID: [id number] Author: Clifford Barakat Service: (none) Author Type: [...] stopped after cycle #2. Was seen by cheese cooker at . Biopsy showed myopathy, but etiology [...] poorly differentiated carcinoma. See comment. COMMENT Immunohistochemistry ([id number]) does not rule out a breast primary. There is focal perinodal extension of tumor. Clinical correlation is suggested. ANTIBODY / CLONE RESULT Block 1 Mammaglobin (31A5) negative GATA3 (L50-823) positive, rare, dim CK8 (56ngeeZ52) positive Ki-67 (30-9) positive, moderate to high [...] the neck, chest abdomen and pelvis at [facility] on 10/05/2017. The CT of the [...] Came off trial. She was seen at [facility] and did not qualify for the 2 clinical trials available due to her pre-existing diabetic neuropathy and history of type 1 diabetes. Current therapy: 1) Boyle/carbo. Interim history: She is completed 2 cycles [...] No jaundice or rash. No petechiae. 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 No focal motor [...] neck, chest, abdomen and pelvis done at [facility] on 12/08/2016. There is a barely [...] W/DIFF, AUTOMATED Collected: 12/09/2017 Status: F Source: [place] 11:18 AM [facility] REPOSITORY TYPE CODE TESTS RESULT OUT OF [...] Lymph 1.43 Performed By: #### L100.0100 #### [facility] [address] [place], [address] BASIC METABOLIC Collected: 12/09/2017 Status: F Source: [place] PROFILE ([facility]) 11:18 AM [facility] REPOSITORY TYPE CODE TESTS RESULT OUT OF [...] 9 Performed By: #### L500.2500, L500.3400 #### [facility] [address] [place], [place], [id number] LIVER PROFILE Collected: 12/09/2017 Status: F Source: [place] 11:18 AM [facility] REPOSITORY TYPE CODE TESTS RESULT OUT OF [...] 0.06 Performed By: #### L500.2500, L500.3400 #### [facility] [address] [place], [place], [address] URINALYSIS, EMPLOYEE Collected: 12/09/2017 Status: F Source: [place] 9:45 AM [facility] REPOSITORY TYPE CODE TESTS RESULT OUT OF [...] 25 ESTERASE Performed By: #### L400.0100 #### [facility] [address] [place], [place], [address] CBC W/DIFF, AUTOMATED Collected: 12/09/2017 Status: F Source: [place] 9:45 AM [facility] REPOSITORY TYPE CODE TESTS RESULT OUT OF [...] 1.43 Performed By: #### L100.0100, L100.0200 #### [facility] [address] [facility] [place], [place], [address] CBC, EMPLOYEE Collected: 12/09/2017 Status: F Source: [place] 9:45 AM [facility] REPOSITORY TYPE CODE TESTS RESULT OUT OF RANGE REFERENCE UNITS LAB L100.2110 47-70 % Normal NEUT% 59.4 LAB L100.2210 19-41 % Normal LY% 28.6 LAB L100.2310 0-10 % High MONO% 11.0 LAB L100.2410 0-5 % Normal EO% 0.4 LAB L100.2510 0-1 % Normal BASO% 0.2 Performed By: #### L100.0100, L100.0200 #### [facility] [address] [facility]. [place], [place], [address] NICOTINE URINE DRUG Collected: 12/09/2017 Status: F Source: [place] SCREEN 9:45 AM [facility] REPOSITORY TYPE CODE TESTS RESULT OUT OF [...] of Nicotine. Performed By: #### L505.6240 #### [facility] [address], [address] EMPLOYEE PROFILE Collected: 12/09/2017 Status: F Source: [place] 9:45 AM [facility] REPOSITORY Order Comment: SEND REULTS TO ALSO [...] LDH 225 Performed By: #### L500.2900 #### [facility] [address] [place], [place], [address] CHEST WITH CONTRAST Observed: 12/08/2017 Status: F Source: [place] 10:34 AM [facility] REPOSITORY [facility] Imaging Services [address] [place] [address] Chest WITH Contrast MR#: [id number] Acct: [id number] Name: PEDRO LUIS WILCOX Rep #: [id number] : 1970 F 47 From: Darryl Ford MD PCP: Jacinto Person MD Status: REG CLI Study: Chest WITH Contrast Date of Exam: 12/08/17 Exam# [id number] Ordering Dr: Clifford Barakat DO STUDY: CT [...] Darryl Ford MD at 15:23 EDT Tel [phone], Service support , CC: Jacinto Person MD; Clifford Barakat DO Freight Elevator Erector: Signed ABDOMEN/PELVIS WITH Observed: 12/08/2017 Status: F Source: [place] CONTRAST 10:34 AM [facility] REPOSITORY [facility] Imaging Services [address] [facility] [place] [address] Abdomen/Pelvis WITH Contrast MR#: [id number] Acct: [id number] Name: PEDRO LUIS WILCOX Rep #: [id number] : 1970 F 47 From: Darryl Ford MD PCP: Jacinto Person MD Status: REG CLI Study: Abdomen/Pelvis WITH Contrast Date of Exam: 12/08/17 Exam# [id number] Ordering Dr: Clifford Barakat DO STUDY: CT [...] Darryl Ford MD at 15:26 EDT Tel [phone], Service support , CC: Jacinto Person MD; Clifford Barakat DO Freight Elevator Erector: Signed SOFT TISSUE NECK WITH Observed: 12/08/2017 Status: F Source: [place] CONTRAST 10:34 AM [facility] REPOSITORY [facility] Imaging Services [address] [place] [address] Soft Tissue Neck WITH Contrast MR#: [id number] Acct: [id number] Name: MARKLANEYPATTI Williamson Rep #: [id number] : 1970 F 47 From: Rylan Schmitz MD PCP: Jacinto Person MD Status: REG CLI Study: Soft Tissue Neck WITH Contrast Date of Exam: 12/08/17 Exam# [id number] Ordering Dr: Clifford Barakat DO STUDY: CT [...] FINDINGS: Normal bilateral parotid glands. Normal bilateral donor services manager spaces. Normal bilateral parapharyngeal spaces. Mild focal [...] to the superior vena cava outside the jkesy-nn-iyew There is mild mucoperiosteal thickening in the [...] CC: Jacinto Person MD; Clifford Barakat DO Freight Elevator Erector: Signed BONE SCAN WHOLE Observed: 12/06/2017 Status: F Source: [place] BODY 8:43 AM [facility] REPOSITORY [facility] Imaging Services [address] [place] [address] Bone Scan Whole Body MR#: [id number] Acct: [id number] Name: PEDRO LUIS WILCOX Rep #: [id number] : 1970 F 47 From: Clay Real DO PCP: Jacinto Person MD Status: REG CLI Study: Bone Scan Whole Body Date of Exam: 12/06/17 Exam# [id number] Ordering Dr: Clifford Barakat DO CLINICAL: 47-year-old [...] CC: Jacinto Person MD; Clifford Barakat DO Freight Elevator Erector: Signed CBC W/DIFF, AUTOMATED Collected: 11/28/2017 Status: F Source: [place] 9:23 AM [facility] REPOSITORY TYPE CODE TESTS RESULT OUT OF [...] Lymph 1.60 Performed By: #### L100.0100 #### [facility] [address] [place], [address] BASIC METABOLIC Collected: 11/28/2017 Status: F Source: [place] PROFILE (BMP) 9:23 AM [facility] REPOSITORY TYPE CODE TESTS RESULT OUT OF [...] 10 Performed By: #### L500.2500, L500.3400 #### [facility] [address] [facility] [place], [place], [address] LIVER PROFILE Collected: 11/28/2017 Status: F Source: [place] 9:23 AM [facility] REPOSITORY TYPE CODE TESTS RESULT OUT OF [...] 0.06 Performed By: #### L500.2500, L500.3400 #### [facility] [address] [facility]. [place], [place], [address] CBC W/DIFF, AUTOMATED Collected: 11/22/2017 Status: F Source: KUL[place]ER 6:37 AM [facility] REPOSITORY TYPE CODE TESTS RESULT OUT OF [...] Lymph 0.78 Performed By: #### L100.0100 #### [facility] [address] [place], [address] BASIC METABOLIC Collected: 11/22/2017 Status: F Source: KULWINDER PROFILE (BMP) 6:37 AM [facility] REPOSITORY TYPE CODE TESTS RESULT OUT OF [...] 7 Performed By: #### L500.2500, L500.3400 #### [facility]. [place], [place], [id number] LIVER PROFILE Collected: 11/22/2017 Status: F Source: KULWINDER 6:37 AM [facility] REPOSITORY TYPE CODE TESTS RESULT OUT OF [...] 0.07 Performed By: #### L500.2500, L500.3400 #### [facility] [address] [place], [address] PROGRESS Observed: 11/21/2017 Status: COMPLETED Source: [place] 10:01 AM [facility] REPOSITORY HNO ID: [id number] Author: Clifford Barakat Service: (none) Author Type: [...] stopped after cycle #2. Was seen by cheese cooker at . Biopsy showed myopathy, but etiology [...] poorly differentiated carcinoma. See comment. COMMENT Immunohistochemistry ([id number]) does not rule out a breast primary. There is focal perinodal extension of tumor. Clinical correlation is suggested. ANTIBODY / CLONE RESULT Block 1 Mammaglobin (31A5) negative GATA3 (L50-823) positive, rare, dim CK8 (99wfocO00) positive Ki-67 (30-9) positive, moderate to high [...] the neck, chest abdomen and pelvis at [facility] on 10/05/2017. The CT of the [...] Came off trial. She was seen at [facility] and did not qualify for the 2 clinical trials available due to her pre-existing diabetic neuropathy and history of type 1 diabetes. Current therapy: 1) Boyle/carbo. Interim history: She tolerated her first cycle [...] No jaundice or rash. No petechiae. 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 No focal motor [...] DO CNOVSP Observed: 11/21/2017 Status: COMPLETED Source: [place] 9:[address] [facility] REPOSITORY Visit (SP) Office (HEMAWS) PEDRO LUIS WILCOX ([id number]) 1970 F Date Time Provider Department 11/21/17 9:30 AM CLIFFORD BARAKAT During your visit today, we recorded the following information about you: Temperature Pulse Blood pressure Weight 100.7 degrees 104/minute 120/57 89.6 kg Orlando Yolande Langston LPN, LPN 11/21/2017 10:05 AM Signed [...] stopped after cycle #2. Was seen by cheese cooker at . Biopsy showed myopathy, but etiology [...] poorly differentiated carcinoma. See comment. COMMENT Immunohistochemistry ([id number]) does not rule out a breast primary. There is focal perinodal extension of tumor. Clinical correlation is suggested. ANTIBODY / CLONE RESULT Block 1 Mammaglobin (31A5) negative GATA3 (L50-823) positive, rare, dim CK8 (61klvvG21) positive Ki-67 (30-9) positive, moderate to high [...] the neck, chest abdomen and pelvis at [facility] on 10/05/2017. The CT of the [...] Came off trial. She was seen at [facility] and did not qualify for the 2 clinical trials available due to her pre-existing diabetic neuropathy and history of type 1 diabetes. Current therapy: 1) Boyle/carbo. Interim history: She tolerated her first cycle [...] No jaundice or rash. No petechiae. 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 HYPERLIPIDEMIA NEC/NOS [E78.5] INVALID FOR* FIBROMYALGIA [[id number]] INVALID FOR* Priority: Moderate OVERWEIGHT [E66.9] INVALID [...] Status:Closed by CLIFFORD BARAKAT DO on 11/21/17 [facility] Observed: 11/18/2017 Status: COMPLETED Source: [place] 1:00 PM [facility] REPOSITORY Visit (SP) Office (DANYEL) PEDRO LUIS WILCOX ([id number]) 1970 F Date Time Provider Department 11/18/17 [...] Temp is now 99.4 F. Federica Reyes, JEYSON.SENIOR PRODUCER 11/21/2017 8:51 AM Signed Chief Complaint Patient presents with: Established Patient HPI: Pedro Luis Wilcox is a 47 year old female who presents here today for complaints of fevers that began wed. evening. Pt. left work early and went to [facility] ED late Wed. night. Per [...] after cycle #2. ? Was seen by cheese cooker at . Biopsy showed myopathy, but etiology [...] poorly differentiated carcinoma. See comment. COMMENT Immunohistochemistry ([id number]) does not rule out a breast primary. There is focal perinodal extension of tumor. Clinical correlation is suggested. ? ANTIBODY / CLONE RESULT Block 1 Mammaglobin (31A5) negative GATA3 (L50-823) positive, rare, dim CK8 (93irbuT46) positive Ki-67 (30-9) positive, moderate to high [...] the neck, chest abdomen and pelvis at [facility] on 10/05/2017. The CT of the [...] off trial. ? She was seen at [facility] and did not qualify for the 2 clinical trials available due to her pre-existing diabetic neuropathy and history of type 1 diabetes. ? Current therapy:Boyle/Carboplatin Last cycle gem/carbo on 11/08/17-at [facility]. Fevers started 11/16/17 Tmax 102. [...] - ICD9: 780.60, ICD10: R50.9 - Reviewed [facility] ED notes/labs/CXR/urine-neg. Blood cultures pending. [...] who agrees with treatment plan. Asia Reyes APRN.SENIOR PRODUCER Referring Provider: CLIFFORD BARAKAT [[id number]] Allergies As of Date: 11/18/2017 (No Known Allergies) Date Reviewed: 11/18/2017 Reviewed by: Asia (Buckle Strap Drum Operator) Eric - Fully Assessed Reason for Visit: [...] More... HYPERLIPIDEMIA NEC/NOS [E78.5] INVALID FOR* FIBROMYALGIA [[id number]] INVALID FOR* Priority: Moderate OVERWEIGHT [E66.9] INVALID [...] 11/21/17 PROGRESS Observed: 11/18/2017 Status: COMPLETED Source: [place] 11:52 AM [facility] REPOSITORY HNO ID: [id number] Author: Asia Reyes Service: (none) Author Type: Nurse Practitioner Type: Progress Notes Filed: 11/21/2017 8:51 AM Note Text: Chief Complaint Patient presents with: Established Patient HPI: Pedro Luis Wilcox is a 47 year old female who presents here today for complaints of fevers that began wed. evening. Pt. left work early and went to [facility] ED late Wed. night. Per [...] after cycle #2. ? Was seen by cheese cooker at . 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 ? Completed radiation 03/26/2014. ? ? ? She started developing intermittent shortness of breath with exertion. She also has a cough that is a dry cough. She was taken off her APM inhibitor but the cough has not changed. [...] poorly differentiated carcinoma. See comment. COMMENT Immunohistochemistry ([id number]) does not rule out a breast primary. There is focal perinodal extension of tumor. Clinical correlation is suggested. ? ANTIBODY / CLONE RESULT Block 1 Mammaglobin (31A5) negative GATA3 (L50-823) positive, rare, dim CK8 (01wanrT48) positive Ki-67 (30-9) positive, moderate to high [...] the neck, chest abdomen and pelvis at [facility] on 10/05/2017. The CT of the [...] off trial. ? She was seen at [facility] and did not qualify for the 2 clinical trials available due to her pre-existing diabetic neuropathy and history of type 1 diabetes. ? Current therapy:Boyle/Carboplatin Last cycle gem/carbo on 11/08/17-at [facility]. Fevers started 11/16/17 Tmax 102. [...] - ICD9: 780.60, ICD10: R50.9 - Reviewed [facility] ED notes/labs/CXR/urine-neg. Blood cultures pending. [...] who agrees with treatment plan. Asia Reyes APRN.[facility] EMERGENCY DEPARTMENT Observed: 11/16/2017 Status: F Source: VENET[place] SUMMARY 11:40 PM [facility] REPOSITORY [facility] Medical Records Department [address] [place] [address] Emergency Department Summary 11/16/17 2102 MR#: [id number] Acct: [id number] Name: PEDRO LUIS WILCOX Rep #: [id number] : 1970 47 From: Mook Paige MD [...] your Primary Care Provider. Call [facility] ([phone]) or report to the closest Emergency Room. Call 911 if necessary. 11/16/17 2340 <Electronically signed by Mook Paige MD> Date Mook Paige MD Cosigner Signature (If Indicated): Date CC: Jacinto Person MD URINALYSIS, COMPLETE Collected: 11/16/2017 Status: F Source: KULWINDER 10:00 PM [facility] REPOSITORY Order Comment: How was Urine Obtained? PLANS EXAMINER TO SPECIFY TYPE CODE TESTS RESULT OUT [...] URINE SEEN Performed By: #### L400.0001 #### [facility] [address] [facility] [place], [address] Observed: 11/16/2017 Status: F Source: KULWINDER CULTURE, BLOOD (WB) 9:17 PM [facility] REPOSITORY No growth in 5 days. Performed By: #### M200.1000 #### [facility] [address] [facility] [place], [address] Observed: 11/16/2017 Status: F Source: [place]UL[place] CULTURE, BLOOD (WB) 9:15 PM [facility] REPOSITORY No growth in 5 days. Performed By: #### M200.1000 #### [facility] [address] [facility]. [place], [place], [address] CHEST 1 VIEW Observed: 11/16/2017 Status: F Source: KULWINDER (PORTABLE) 9:02 PM [facility] REPOSITORY [facility] Imaging Services [address] [place] [address] Chest 1 View (Portable) MR#: [id number] Acct: [id number] Name: PEDRO LUIS WILCOX Rep #: [id number] : 1970 F 47 From: Elvira Foss MD PCP: Jacinto Person MD Status: REG ER Study: Chest 1 View (Portable) Date of Exam: 11/16/17 Exam# [id number] Ordering Dr: Mook Paige MD STUDY: X-RAY [...] CC: MOOK PAIGE MD; Jacinto Person MD Freight Elevator Erector: Signed CBC W/DIFF, AUTOMATED Collected: 11/16/2017 Status: F Source: [place] 9:01 PM [facility] REPOSITORY TYPE CODE TESTS RESULT OUT OF [...] Lymph 1.55 Performed By: #### L100.0100 #### [facility] [place], [address] COMPREHENSIVE METABOLIC Collected: 11/16/2017 Status: F Source: [facility] 9:01 PM [facility] REPOSITORY TYPE CODE TESTS RESULT OUT OF [...] GAP 7 Performed By: #### L500.4050 #### [facility] [address] [place], [address] CBC W/DIFF, AUTOMATED Collected: 11/14/2017 Status: F Source: VENET[place] 10:46 AM [facility] REPOSITORY TYPE CODE TESTS RESULT OUT OF [...] Lymph 1.52 Performed By: #### L100.0100 #### [facility] [address] [place], [address] BASIC METABOLIC Collected: 11/14/2017 Status: F Source: [place] PROFILE (BMP) 10:46 AM [facility] REPOSITORY TYPE CODE TESTS RESULT OUT OF [...] 6 Performed By: #### L500.2500, L500.3400 #### [facility] [address] [place], [address] LIVER PROFILE Collected: 11/14/2017 Status: F Source: [place] 10:46 AM [facility] REPOSITORY TYPE CODE TESTS RESULT OUT OF [...] 0.10 Performed By: #### L500.2500, L500.3400 #### [facility] [address] [facility] [place], [address] VENOUS DUPLEX LOWER Observed: 11/09/2017 Status: F Source: KUL[place]ER EXTREMITY 5:38 PM [facility] REPOSITORY [facility] Cardiovascular Services [address] [place] [address] Venous Duplex US, Unilateral 11/09/17 1359 MR#: [id number] Acct: [id number] Name: PEDRO LUIS WILCOX Rep #: [id number] : 1970 47 From: Clay Nieto MD [...] Date Dictated: 11/09/17 1359 Date Transcribed: 11/09/171736 Freight Elevator Erector: Signed CBC W/DIFF, AUTOMATED Collected: 11/07/2017 Status: F Source: [place]UL[place] 10:07 AM [facility] REPOSITORY TYPE CODE TESTS RESULT OUT OF [...] Lymph 1.94 Performed By: #### L100.0100 #### [facility] [address] [facility] [place], [address] BASIC METABOLIC Collected: 11/07/2017 Status: F Source: [place]ET[place] PROFILE ([facility]) 10:07 AM [facility] REPOSITORY TYPE CODE TESTS RESULT OUT OF [...] 6 Performed By: #### L500.2500, L500.3400 #### [facility] [address] [place], [place], [address] LIVER PROFILE Collected: 11/07/2017 Status: F Source: [place] 10:07 AM [facility] REPOSITORY TYPE CODE TESTS RESULT OUT OF [...] 0.10 Performed By: #### L500.2500, L500.3400 #### [facility] [address] [place], [place], [address] CBC W/DIFF, AUTOMATED Collected: 10/31/2017 Status: F Source: [place] 11:35 AM [facility] REPOSITORY TYPE CODE TESTS RESULT OUT OF [...] Lymph 1.71 Performed By: #### L100.0100 #### [facility] [address] [facility]. [place], [place], [address] BASIC METABOLIC Collected: 10/31/2017 Status: F Source: KUL[place]ER PROFILE ([facility]) 11:35 AM [facility] REPOSITORY TYPE CODE TESTS RESULT OUT OF [...] 5 Performed By: #### L500.2500, L500.3400 #### [facility] [address] [facility]. [place], [place], [address] LIVER PROFILE Collected: 10/31/2017 Status: F Source: [place] 11:35 AM [facility] REPOSITORY TYPE CODE TESTS RESULT OUT OF [...] 0.10 Performed By: #### L500.2500, L500.3400 #### [facility] [address] [facility] [place], [address] PROGRESS Observed: 10/27/2017 Status: COMPLETED Source: [place] 3:04 PM [facility] REPOSITORY HNO ID: [id number] Author: Isha Servin (Sw) Service: (none) Author Type: Contract Lead Type: Progress Notes Filed: 10/27/2017 3:05 PM Note Text: SOCIAL WORK FOLLOW UP NOTE: [facility] Date of service: October 27, 2017 [...] before 5:00 or leave any information/needs with home care associate at meeting tomorrow and HILARIO will call patient Tuesday upon return. PLAN: Continue follow up as needed F/U APPOINTMENT: ANNAMARIA Nunez CNSW Observed: 10/27/2017 Status: COMPLETED Source: [place] 12:00 AM [facility] REPOSITORY Social Work (DANYEL) PEDRO LUIS WILCOX ([id number]) 1970 F Date Time Provider Department 10/27/17 ISHA SERVIN (SW) During your visit today, we recorded the following information about you: ANNAMARIA Schroeder 10/27/2017 3:05 PM Signed SOCIAL WORK FOLLOW UP NOTE: [facility] Date of service: October 27, 2017 [...] before 5:00 or leave any information/needs with home care associate at meeting tomorrow and SW will call [...] More... HYPERLIPIDEMIA NEC/NOS [E78.5] INVALID FOR* FIBROMYALGIA [[id number]] INVALID FOR* Priority: Moderate OVERWEIGHT [E66.9] INVALID [...] 10/27/17 PROGRESS Observed: 10/25/2017 Status: COMPLETED Source: [place] 12:[address] [facility] REPOSITORY [facility] ID: [id number] Author: Clifford Barakat Service: (none) Author Type: [...] stopped after cycle #2. Was seen by cheese cooker at . Biopsy showed myopathy, but etiology [...] poorly differentiated carcinoma. See comment. COMMENT Immunohistochemistry ([id number]) does not rule out a breast primary. There is focal perinodal extension of tumor. Clinical correlation is suggested. ANTIBODY / CLONE RESULT Block 1 Mammaglobin (31A5) negative GATA3 (L50-823) positive, rare, dim CK8 (95kwphO14) positive Ki-67 (30-9) positive, moderate to high [...] the neck, chest abdomen and pelvis at [facility] on 10/05/2017. The CT of the [...] management. Interim history: She was seen at [facility] and did not qualify for the [...] No jaundice or rash. No petechiae. 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 No focal motor [...] DO CNOVSP Observed: 10/25/2017 Status: COMPLETED Source: [place] 10:50 AM [facility] REPOSITORY Visit (SP) Office (DANYEL) PEDRO LUIS WILCOX ([id number]) 1970 F Date Time Provider Department 10/25/17 [...] stopped after cycle #2. Was seen by cheese cooker at . Biopsy showed myopathy, but etiology [...] poorly differentiated carcinoma. See comment. COMMENT Immunohistochemistry ([id number]) does not rule out a breast primary. There is focal perinodal extension of tumor. Clinical correlation is suggested. ANTIBODY / CLONE RESULT Block 1 Mammaglobin (31A5) negative GATA3 (L50-823) positive, rare, dim CK8 (01kvteI06) positive Ki-67 (30-9) positive, moderate to high [...] the neck, chest abdomen and pelvis at [facility] on 10/05/2017. The CT of the [...] management. Interim history: She was seen at [facility] and did not qualify for the [...] No jaundice or rash. No petechiae. 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 HYPERLIPIDEMIA NEC/NOS [E78.5] INVALID FOR* FIBROMYALGIA [[id number]] INVALID FOR* Priority: Moderate OVERWEIGHT [E66.9] INVALID [...] 10/25/2017 Status: COMPLETED Source: [place] 12:00 AM [facility] REPOSITORY Telephone (DANYEL) PEDRO LUIS WILCOX ([id number]) 1970 F Date Time Provider Department 10/25/17 CLIFFORD BARAKAT During your visit today, we recorded the following information about you: Roselyn Garcia Saurabh Psr 10/25/2017 2:00 PM Signed [facility] calling stating they are needing clinical notes on why patient is needing chemo, what type of chemo, chemocodes and any precertification if needed.. Please fax to [phone]. Federica Pimentel LPN 10/25/2017 2:08 PM Signed All lab and chemo orders faxed to [facility] infusion suite earlier. Orders and last office note faxed to number below as requested. [facility] is responsible for the precert, patient requesting to have service there. Federica Vásquez, RN, RN 10/28/2017 10:31 AM Signed Contacted [facility] to see if patient has been scheduled for chemo and was transferred to infusion nurse. Nurse confirmed that pre-certification has been completed but for future reference, [facility] is responsible for patient precert. We do not precert for outside referring doctors. Nurse stated she is faxing over forms that will need to be filled out prior to each infusion because their policies are changing. Fax number given to nurse. Nurse verified that she has orders for labs/chemo. Patient scheduled for 11/01 at 9:00am at [facility]. Patient informed during chemo ed [...] More... HYPERLIPIDEMIA NEC/NOS [E78.5] INVALID FOR* FIBROMYALGIA [[id number]] INVALID FOR* Priority: Moderate OVERWEIGHT [E66.9] INVALID [...] 10/25/17 PROGRESS Observed: 10/20/2017 Status: COMPLETED Source: [place] 4:[address] [facility] REPOSITORY HNO ID: [id number] Author: Sawyer Toussaint Service: (none) Author Type: [...] others on mom's side - Heart Father CAD/DE dx'd first age late 40's - Hypertension Father - pancreatic cancer [OTHER] Maternal Grandmother - Colon Cancer Other no 1st degree - Breast Cancer Other maternal cousin SOCIAL HISTORY: Patient and her live in the [facility]. She is not working and [...] Pf[employer] JAVELIN PARP MEDLEY study open at [facility]. Unfortunately, patient does not qualify for the [...] MD CNOVSP Observed: 10/20/2017 Status: COMPLETED Source: [place] 2:[address] [facility] REPOSITORY Visit (SP) Office (HEMCA4) PEDRO LUIS WILCOX ([id number]) 1970 F Date Time Provider Department 10/20/17 [...] No Does patient want to see a Mid Wife? No (yes to any of above refer [...] others on mom's side - Heart Father CAD/DE dx'd first age late 40's - Hypertension Father - pancreatic cancer [OTHER] Maternal Grandmother - Colon Cancer Other no 1st degree - Breast Cancer Other maternal cousin SOCIAL HISTORY: Patient and her live in the [place] area. She is not working and is [...] Pfizer JAVELIN PARP MEDLEY study open at [facility]. Unfortunately, patient does not qualify for the [...] Clifford Barakat MD Referring Provider: CLIFFORD BARAKAT [[id number]] Allergies As of Date: 10/20/2017 (No Known [...] More... HYPERLIPIDEMIA NEC/NOS [E78.5] INVALID FOR* FIBROMYALGIA [[id number]] INVALID FOR* Priority: Moderate OVERWEIGHT [E66.9] INVALID [...] No Does patient want to see a Mid Wife? No (yes to any of above refer [...] 10/20/17 PROGRESS Observed: 10/11/2017 Status: COMPLETED Source: [place] 2:[address] [facility] REPOSITORY HNO ID: [id number] Author: Clifford Barakat Service: (none) Author Type: [...] stopped after cycle #2. Was seen by cheese cooker at . Biopsy showed myopathy, but etiology [...] poorly differentiated carcinoma. See comment. COMMENT Immunohistochemistry ([id number]) does not rule out a breast primary. There is focal perinodal extension of tumor. Clinical correlation is suggested. ANTIBODY / CLONE RESULT Block 1 Mammaglobin (31A5) negative GATA3 (L50-823) positive, rare, dim CK8 (31lcfiR04) positive Ki-67 (30-9) positive, moderate to high [...] the neck, chest abdomen and pelvis at [facility] on 10/05/2017. The CT of the [...] No jaundice or rash. No petechiae. 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 No focal motor [...] in particular the CASE 6115 trial at [facility]. Plan: -Referral to [facility] for opinion on clinical trial. -If she is not a candidate or chooses not to pursue clinical trial, then treatment with gemcitabine and carboplatin. Clifford Barakat DO CNOVSP Observed: 10/11/2017 Status: COMPLETED Source: [place] 2:00 PM [facility] REPOSITORY Visit (SP) Office (DANYEL) PEDRO LUIS WILCOX ([id number]) 1970 F Date Time Provider Department 10/11/17 [...] stopped after cycle #2. Was seen by cheese cooker at . Biopsy showed myopathy, but etiology [...] poorly differentiated carcinoma. See comment. COMMENT Immunohistochemistry ([id number]) does not rule out a breast primary. There is focal perinodal extension of tumor. Clinical correlation is suggested. ANTIBODY / CLONE RESULT Block 1 Mammaglobin (31A5) negative GATA3 (L50-823) positive, rare, dim CK8 (35pckrN77) positive Ki-67 (30-9) positive, moderate to high [...] the neck, chest abdomen and pelvis at [facility] on 10/05/2017. The CT of the [...] No jaundice or rash. No petechiae. 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 No focal motor [...] in particular the CASE 6115 trial at [facility]. Plan: -Referral to [facility] for opinion on clinical trial. -If she is not a candidate or chooses not to pursue clinical trial, then treatment with gemcitabine and carboplatin. Clifford Barakat DO Referring Provider: CLIFFORD BARAKAT [[id number]] Allergies As of Date: 10/11/2017 (No Known [...] More... HYPERLIPIDEMIA NEC/NOS [E78.5] INVALID FOR* FIBROMYALGIA [[id number]] INVALID FOR* Priority: Moderate OVERWEIGHT [E66.9] INVALID [...] 10/11/17 HOSP Observed: 10/11/2017 Status: COMPLETED Source: [place] 12:00 AM [facility] REPOSITORY Patient Update (DANYEL) PEDRO LUIS WILCOX ([id number]) 1970 F Date Time Provider Department 10/11/17 [...] More... HYPERLIPIDEMIA NEC/NOS [E78.5] INVALID FOR* FIBROMYALGIA [VVQ4741] INVALID FOR* Priority: Moderate OVERWEIGHT [E66.9] INVALID [...] ECHOCARDIOGRAM COMPLETE Observed: 10/10/2017 Status: F Source: [place] 10:19 AM [facility] REPOSITORY [facility] Cardiovascular Services [address] [place] [address] Echo Complete 10/10/17 0809 MR#: [id number] Acct: [id number] Name: PEDRO LUIS WILCOX Clay Rep #: [id number] : 1970 47 From: Eric Blue MD [...] Dictated: 10/10/17 0809 Date Transcribed: 10/10/17 1019 Freight Elevator Erector: Signed GASTRIC EMPTYING Observed: 10/10/2017 Status: F Source: [place] STUDY 9:17 AM [facility] REPOSITORY [facility] Imaging Services [address] [place] [address] Gastric Emptying Study MR#: [id number] Acct: [id number] Name: PEDRO LUIS WILCOX Rep #: [id number] : 1970 F 47 From: Clay Real DO PCP: Jacinto Person MD Status: REG CLI Study: Gastric Emptying Study Date of Exam: 10/10/17 Exam# [id number] Ordering Dr: Jacinto Person MD CLINICAL: 47-year-old [...] Service support , CC: Jacinto Person MD Freight Elevator Erector: Signed L/S SPINE MIN 4 Observed: 10/10/2017 Status: F Source: [place] VIEWS 8:41 AM [facility] REPOSITORY [facility] Imaging Services [address] [place] [address] L/S Spine Min 4 Views MR#: [id number] Acct: [id number] Name: PEDRO LUIS WILCOX Rep #: [id number] : 1970 F 47 From: Jina Arciniega MD PCP: Jacinto Person MD Status: REG CLI Study: L/S Spine Min 4 Views Date of Exam: 10/10/17 Exam# [id number] Ordering Dr: Jacinto Person MD STUDY: X-RAY [...] Service support , CC: Jacinto Person MD Freight Elevator Erector: Signed BONE SCAN WHOLE Observed: 10/07/2017 Status: F Source: [place] BODY 10:04 AM [facility] REPOSITORY [facility] Imaging Services [address] [place] [address] Bone Scan Whole Body MR#: [id number] Acct: [id number] Name: LANEY WILCOXPATTI Williamson Rep #: [id number] : 1970 F 47 From: Clay Real DO PCP: Jacinto Person MD Status: REG CLI Study: Bone Scan Whole Body Date of Exam: 10/07/17 Exam# [id number] Ordering Dr: Clifford Barakat DO CLINICAL: 47-year-old [...] CC: Jacinto Person MD; Clifford Barakat DO Freight Elevator Erector: Signed CHEST WITH CONTRAST Observed: 10/05/2017 Status: F Source: [place] 3:28 PM [facility] REPOSITORY [facility] Imaging Services [address] [place] [address] Chest WITH Contrast MR#: [id number] Acct: [id number] Name: PEDRO LUIS WILCOX Rep #: [id number] : 1970 F 47 From: Reed Samaniego MD PCP: Jacinto Person MD Status: REG CLI Study: Chest WITH Contrast Date of Exam: 10/05/17 Exam# [id number] Ordering Dr: Clifford Barakat DO STUDY: CT [...] CC: Jacinto Person MD; Clifford Barakat DO Freight Elevator Erector: Signed ABDOMEN/PELVIS WITH Observed: 10/05/2017 Status: F Source: [place] CONTRAST 3:20 PM [facility] REPOSITORY [facility] Imaging Services [address] [place] [address] Abdomen/Pelvis WITH Contrast MR#: [id number] Acct: [id number] Name: PEDRO LUIS WILCOX Rep #: [id number] : 1970 F 47 From: Reed Samaniego MD PCP: Jacinto Person MD Status: REG CLI Study: Abdomen/Pelvis WITH Contrast Date of Exam: 10/05/17 Exam# [id number] Ordering Dr: Clifford Barakat DO STUDY: CT [...] CC: Jacinto Person MD; Clifford Barakat DO Freight Elevator Erector: Signed SOFT TISSUE NECK WITH Observed: 10/05/2017 Status: F Source: [place] CONTRAST 3:00 PM [facility] REPOSITORY [facility] Imaging Services [address] [place] [address] Soft Tissue Neck WITH Contrast MR#: [id number] Acct: [id number] Name: PEDRO LUIS WILCOX Rep #: [id number] : 1970 F 47 From: Reed Samaniego MD PCP: Jacinto Person MD Status: REG CLI Study: Soft Tissue Neck WITH Contrast Date of Exam: 10/05/17 Exam# [id number] Ordering Dr: Clifford Barakat DO STUDY: CT [...] FINDINGS: Normal bilateral parotid glands. Normal bilateral donor services manager spaces. Normal bilateral parapharyngeal spaces. Normal bilateral [...] CC: Jacinto Person MD; Clifford Barakat DO Freight Elevator Erector: Signed PROGRESS Observed: 10/04/2017 Status: COMPLETED Source: [place] 12:[address] [facility] REPOSITORY HNO ID: [id number] Author: Clifford Barakat Service: (none) Author Type: [...] stopped after cycle #2. Was seen by cheese cooker at . Biopsy showed myopathy, but etiology [...] poorly differentiated carcinoma. See comment. COMMENT Immunohistochemistry ([id number]) does not rule out a breast primary. There is focal perinodal extension of tumor. Clinical correlation is suggested. ANTIBODY / CLONE RESULT Block 1 Mammaglobin (31A5) negative GATA3 (L50-823) positive, rare, dim CK8 (67slxuU76) positive Ki-67 (30-9) positive, moderate to high [...] No jaundice or rash. No petechiae. 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 No focal motor [...] DO CNOVSP Observed: 10/04/2017 Status: COMPLETED Source: [place] 9:30 AM [facility] REPOSITORY Visit (SP) Office (DANYEL) PEDRO LUIS WILCOX ([id number]) 1970 F Date Time Provider Department 10/04/17 9:30 AM CLIFFORD BARAKAT During your visit today, we recorded the following information about you: Temperature Pulse Blood pressure Weight 98.9 degrees 94/minute 155/67 92.5 kg Federica Leyla MORENO 10/04/2017 10:19 AM Signed Est study patient. Labs completed [facility] this morning. Federica Leyla MORENO Clifford Barakat [...] stopped after cycle #2. Was seen by cheese cooker at . Biopsy showed myopathy, but etiology [...] poorly differentiated carcinoma. See comment. COMMENT Immunohistochemistry ([id number]) does not rule out a breast primary. There is focal perinodal extension of tumor. Clinical correlation is suggested. ANTIBODY / CLONE RESULT Block 1 Mammaglobin (31A5) negative GATA3 (L50-823) positive, rare, dim CK8 (89tctwB23) positive Ki-67 (30-9) positive, moderate to high [...] No jaundice or rash. No petechiae. 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 No focal motor [...] Clifford Barakat DO Referring Provider: CLIFFORD BARAKAT [[id number]] Allergies As of Date: 10/04/2017 (No Known [...] Supraclavicular lymphadenopathy [R59.0] Order(s):NM BONE WHOLE BODY [[id number]] Order #: [id number] FUTURE CT NECK SOFT TISSUE W IVCON [[id number]] Order #: [id number] FUTURE iv contrast (will be provided with [...] More... HYPERLIPIDEMIA NEC/NOS [E78.5] INVALID FOR* FIBROMYALGIA [ATY3669] INVALID FOR* Priority: Moderate OVERWEIGHT [E66.9] INVALID [...] Status: Signed Est study patient. Labs completed [facility] this morning. Federica Pimentel LPN Encounter Status:Closed by CLIFFORD BARAKAT DO on 10/04/17 CBC W/DIFF, AUTOMATED Collected: 10/04/2017 Status: F Source: [place] 8:18 AM [facility] REPOSITORY TYPE CODE TESTS RESULT OUT OF [...] Lymph 1.74 Performed By: #### L100.0100 #### [facility] [address] [place], [address] COMPREHENSIVE METABOLIC Collected: 10/04/2017 Status: F Source: [place] [facility] 8:18 AM [facility] REPOSITORY TYPE CODE TESTS RESULT OUT OF [...] 5 Performed By: #### L500.4050, L501.5200 #### [facility] [address] [place], [address] MAGNESIUM Collected: 10/04/2017 Status: F Source: [place] 8:18 AM [facility] REPOSITORY TYPE CODE TESTS RESULT OUT OF RANGE REFERENCE UNITS LAB L501.5200 1.6-2.6 mg/dL Normal MG 1.7 Performed By: #### L500.4050, L501.5200 #### [facility] [address] [place], [address] HOSP Observed: 10/04/2017 Status: COMPLETED Source: [place] 12:00 AM [facility] REPOSITORY Patient Update (DANYEL) PEDRO LUIS WILCOX ([id number]) 1970 F Date Time Provider Department 10/04/17 [...] Possible related. 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 She just feels tired. Neuropathy in fingers, denies.? And, no change in lower extremities that is chronic for patient. Arthralgia, denies. ?? Epigastric pain, denies this past cycle. Breathing is better. She has re-scheduled her Echo twice and is scheduled for 10/10/17 at [facility]. She states that she saw Dr. Person and he thinks it is Costochondritis. He has given her some exercises to do. This is all unrelated to study drug per Dr. Barakat. He does still want patient to get Echo. ?? Labs earlier today drawn at [facility]: CBC Hgb 10.6, grade 1, [...] up Bone Scan with CT's C/A/P to [facility] and add a CT Neck. [...] More... HYPERLIPIDEMIA NEC/NOS [E78.5] INVALID FOR* FIBROMYALGIA [CTE6888] INVALID FOR* Priority: Moderate OVERWEIGHT [E66.9] INVALID [...] Possible related. 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 She just feels tired. Neuropathy in fingers, denies.? And, no change in lower extremities that is chronic for patient. Arthralgia, denies. ?? Epigastric pain, denies this past cycle. Breathing is better. She has re-scheduled her Echo twice and is scheduled for 10/10/17 at [facility]. She states that she saw Dr. Person and he thinks it is Costochondritis. He has given her some exercises to do. This is all unrelated to study drug per Dr. Barakat. He does still want patient to get Echo. ?? Labs earlier today drawn at [facility]: CBC Hgb 10.6, grade 1, [...] up Bone Scan with CT's C/A/P to [facility] and add a CT Neck. [...] 10/04/17 CNPN Observed: 10/04/2017 Status: COMPLETED Source: [place] 12:00 AM [facility] REPOSITORY Telephone (DANYEL) PEDRO LUIS WILCOX ([id number]) 1970 F Date Time Provider Department 10/04/17 CLIFFORD BARAKAT During your visit today, we recorded the following information about you: Estrella Watkins PSR 10/04/2017 11:[address] Barakat's OV today (10/04/17), this PSR contacted [facility] and rescheduled PT's CT for the earliest date of 10/13 @ 1:00 PM with a 4 hour fast and added the neck CT to the existing order. Additionally scheduled the whole body bone scan at [facility] on 10/06 with an 8:00 [...] More... HYPERLIPIDEMIA NEC/NOS [E78.5] INVALID FOR* FIBROMYALGIA [FMF0235] INVALID FOR* Priority: Moderate OVERWEIGHT [E66.9] INVALID [...] 10/04/17 PROGRESS Observed: 09/13/2017 Status: COMPLETED Source: [place] 12:43 PM [facility] REPOSITORY HNO ID: [id number] Author: Clifford Barakat Service: (none) Author Type: [...] stopped after cycle #2. Was seen by cheese cooker at . Biopsy showed myopathy, but etiology [...] poorly differentiated carcinoma. See comment. COMMENT Immunohistochemistry ([id number]) does not rule out a breast primary. There is focal perinodal extension of tumor. Clinical correlation is suggested. ANTIBODY / CLONE RESULT Block 1 Mammaglobin (31A5) negative GATA3 (L50-823) positive, rare, dim CK8 (66afpfP06) positive Ki-67 (30-9) positive, moderate to high [...] No jaundice or rash. No petechiae. 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 No focal motor [...] also performed. She was seen by a signal apprentice and was given reassurance that there were [...] DO CNOVSP Observed: 09/13/2017 Status: COMPLETED Source: [place] 11:50 AM [facility] REPOSITORY Visit (SP) Office (DANYEL) PEDRO LUIS WILCOX ([id number]) 1970 F Date Time Provider Department 09/13/17 [...] stopped after cycle #2. Was seen by cheese cooker at . Biopsy showed myopathy, but etiology [...] poorly differentiated carcinoma. See comment. COMMENT Immunohistochemistry ([id number]) does not rule out a breast primary. There is focal perinodal extension of tumor. Clinical correlation is suggested. ANTIBODY / CLONE RESULT Block 1 Mammaglobin (31A5) negative GATA3 (L50-823) positive, rare, dim CK8 (37ipkvS20) positive Ki-67 (30-9) positive, moderate to high [...] No jaundice or rash. No petechiae. 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 No focal motor [...] also performed. She was seen by a signal apprentice and was given reassurance that there were [...] Clifford Barakat DO Referring Provider: CLIFFORD BARAKAT [[id number]] Allergies As of Date: 09/13/2017 (No Known Allergies) Date Reviewed: 09/13/2017 Reviewed by: Orlando Lanier (Stoner Hand) TIFFANIE Langston - Fully Assessed Reason for Visit: Established Patient [175] Primary Visit Diagnosis:Malignant neoplasm of upper-outer quadrant of right breast in female, estrogen receptor negative (HCC) [C50.411, Z17.1] Other Visit Diagnoses:Malignant neoplasm of right breast in female, estrogen receptor negative, unspecified site of breast (HCC) [C50.911, Z17.1] Dyspnea and respiratory abnormalities [R06.00, R06.89] Examination of participant in clinical trial [Z00.6] Order(s):ECHO [328053] Order #: [id number]: 1 FUTURE HEMONC COMMUNICATION ORDER [[id number]] Order #: [id number]: 1 CT ABD/PEL W IVCON [[id number]] Order #: [id number] FUTURE CT CHEST W IVCON [[id number]] Order #: [id number] FUTURE [] iv contrast (will be provided [...] UNIT/ML SUBCUTANEOUS SOLUTION >> Orlando Langston LPN, TIFFANIE 09/13/2017 11:57 AM >> ORLANDO LANGSTON September [...] More... HYPERLIPIDEMIA NEC/NOS [E78.5] INVALID FOR* FIBROMYALGIA [AJT4380] INVALID FOR* Priority: Moderate OVERWEIGHT [E66.9] INVALID [...] 09/13/2017 Status: F Source: [place] 6:31 AM [facility] REPOSITORY TYPE CODE TESTS RESULT OUT OF [...] Lymph 1.88 Performed By: #### L100.0100 #### [facility] [address] [facility]. [place], [place], [address] COMPREHENSIVE METABOLIC Collected: 09/13/2017 Status: F Source: [facility] 6:31 AM [facility] REPOSITORY TYPE CODE TESTS RESULT OUT OF [...] 8 Performed By: #### L500.4050, L501.5200 #### [facility] [address] [facility] [place], [address] MAGNESIUM Collected: 09/13/2017 Status: F Source: [place] 6:31 AM [facility] REPOSITORY TYPE CODE TESTS RESULT OUT OF RANGE REFERENCE UNITS LAB L501.5200 1.6-2.6 mg/dL Low MG 1.5 Performed By: #### L500.4050, L501.5200 #### [facility] [address] [facility] [place], [address] HOSP Observed: 09/13/2017 Status: COMPLETED Source: [place] 12:00 AM [facility] REPOSITORY Patient Update (DANYEL) PEDRO LUIS WILCOX ([id number]) 1970 F Date Time Provider Department 09/13/17 EMRE MCDONOUGH (RN) ADNYEL During your visit today, we recorded the following information about you: Emre Mcdonough RN 10/25/2017 12:44 PM Addendum IRB# [id number]. ?Randomized on: 01/28/2017. ?ARM: Blinded. Reporting Period: 08/23/17 - 09/13/17: ?? Patient is here?for Cycle#11. ?Physical exam, toxicities, labs, and medications reviewed with Cliffodr Barakat DO. Patient meets protocol requirements for [...] Unrelated. ?? Labs earlier today drawn at [facility]: CBC Hgb 11.4, grade 1, [...] taken her dose for this am. ? [place] order-- Dr. Roshni stephenson with patient to [...] in 3 weeks with labs prior at [facility] for Cycle #12. Patient agreeable [...] More... HYPERLIPIDEMIA NEC/NOS [E78.5] INVALID FOR* FIBROMYALGIA [AFA6698] INVALID FOR* Priority: Moderate OVERWEIGHT [E66.9] INVALID [...] Unrelated. ?? Labs earlier today drawn at [facility]: CBC Hgb 11.4, grade 1, [...] taken her dose for this am. ? [place] order-- Dr. Roshni stephenson with patient to [...] in 3 weeks with labs prior at [facility] for Cycle #12. Patient agreeable with this plan. She has contact numbers if she needs anything in the interim. Emre Mcdonough RN Encounter Status:Closed by EMRE MCDONOUGH on 09/20/17 ONCOLOGY HISTORY AND Observed: 09/07/2017 Status: F Source: [place] PHYSICAL 4:48 PM [facility] REPOSITORY [facility] Medical Records Department [address] [place] [address] History and Physical 09/07/17 1529 MR#: [id number] Acct: [id number] Name: PEDRO LUIS WILCOX Rep #: [id number] : 1970 47 From: Garcia Reed MD PCP: Raza VELAZQUEZ,Jacinto Status: DIS RCR Y Location: [facility] Subjective Date of Service:: 09/07/17 Chief [...] to know what to do. Power of Test Tech: No Living Will: No Health History: Past Medical History Cancer: Breast cancer Past Medical History (Last Updated 09/07/17 @ 14:07 by Deysi Bautista) Falls node (Acute) Past Surgical History (Last Updated [...] drinking: Has the patient needed an eye change management expert in the mornings: Comments: occasionaly Review of [...] Chronic Code Visit Office Visits / Consults: [id number] OV L5 New 09/07/17 1648 <Electronically signed by Garcia Reed MD> Date Garcia Reed MD Cosigner Signature: Date (if applicable) CC: Jacinto Person MD; Garcia Reed MD Signed 12 LEAD ELECTROCARDIOGRAM Observed: 09/02/2017 Status: F Source: [place] 2:48 PM [facility] REPOSITORY [facility] Cardiovascular Services [address] [place] [address] 12 Lead EKG 08/29/17 1213 MR#: [id number] Acct: [id number] Name: PEDRO LUIS WILCOX Rep #: [id number] : 1970 47 From: Eric Blue MD [...] ECG Confirmed by ERIC BLUE MD ([id number]), editorial specialist MESSI VIVAR ([id number]) on 09/02/2017 2:48:24 PM Referred By: SHELBY/RGECIA Confirmed By:ERIC BLUE MD 09/02/17 1448 Date Eric Blue MD CC: Johnny Santos MD; Jacinto Person MD Signed EMERGENCY DEPARTMENT Observed: 08/29/2017 Status: F Source: [place] SUMMARY 3:51 PM [facility] REPOSITORY [facility] Medical Records Department [address] [place] [address] Emergency Department Summary 08/29/17 1207 MR#: [id number] Acct: [id number] Name: PEDRO LUIS WILCOX Rep #: [id number] : 1970 47 From: Johnny Santos MD [...] 1. Confusion--resolved This note was generated with [employer] software. It may contain incorrect words, spelling, [...] problems, contact your Primary Care Provider. Call [employer] [facility] ([phone]) or report to the closest Emergency Room. Call 911 if necessary. 08/29/17 1551 <Electronically signed by Johnny Santos MD> Date Johnny Santos MD Cosigner Signature (If Indicated): Date CC: Jacinto Person MD DISCHARGE INSTRUCTION Observed: 08/29/2017 Status: F Source: [place] 3:51 PM [facility] REPOSITORY [facility] Medical Records Department [address] [place] [address] Discharge Instruction 08/29/17 1526 MR#: [id number] Acct: [id number] Name: PEDRO LUIS WILCOX Rep #: [id number] : 1970 47 From: Johnny Santos MD [...] your Primary Care Provider. Call [facility] ([phone]) or report to the closest Emergency Room. Call 911 if necessary. 08/29/17 1551 <Electronically signed by Johnny Santos MD> Date Johnny Santos MD Cosigner Signature (If Indicated): Date CC: Jacinto Person MD BRAIN/HEAD WITHOUT Observed: 08/29/2017 Status: F Source: [place] CONTRAST 12:03 PM [facility] REPOSITORY [facility] Imaging Services [address] [place] [address] Brain/Head without Contrast MR#: [id number] Acct: [id number] Name: PEDRO LUIS WILCOX Rep #: [id number] : 1970 F 47 From: Darryl Ford MD PCP: Jacinto Person MD Status: REG ER Study: Brain/Head without Contrast Date of Exam: 08/29/17 Exam# [id number] Ordering Dr: Johnny Santos MD STUDY: CT [...] Darryl Ford MD at 12:59 EDT Tel [phone], Service support , CC: Johnny Santos MD; Jacinto Person MD Freight Elevator Erector: Signed CHEST 1 VIEW Observed: 08/29/2017 Status: F Source: [place] 12:03 PM [facility] REPOSITORY [facility] Imaging Services [address] [place] [address] Chest 1 View MR#: [id number] Acct: [id number] Name: PEDRO LUIS WILCOX Rep #: [id number] : 1970 F 47 From: Darryl Ford MD PCP: Jacinto Person MD Status: REG ER Study: Chest 1 View Date of Exam: 08/29/17 Exam# [id number] Ordering Dr: Johnny Santos MD STUDY: X-RAY [...] Darryl Ford MD at 13:23 EDT Tel [phone], Service support , CC: Johnny Santos MD; Jacinto Person MD Freight Elevator Erector: Signed BEDSIDE GLUCOSE Collected: 08/29/2017 Status: F Source: [place] 12:02 PM [facility] REPOSITORY TYPE CODE TESTS RESULT OUT OF REFERENCE UNITS RANGE LAB L501.080 70-110 mg/dL High BEDSIDE GLU 156 Result Comment: MANAGEMENT OF PATIENT CARE PER NURSING PROTOCOL Performed By: #### L501.080 #### [facility] Point of Care [facility] [address] [place], [place] [address] CBC W/DIFF, AUTOMATED Collected: 08/29/2017 Status: F Source: [place] 11:58 AM [facility] REPOSITORY TYPE CODE TESTS RESULT OUT OF [...] Lymph 1.61 Performed By: #### L100.0100 #### [facility] [address] [place], [address] BASIC METABOLIC Collected: 08/29/2017 Status: F Source: [place] PROFILE ([facility]) 11:58 AM [facility] REPOSITORY TYPE CODE TESTS RESULT OUT OF [...] 8 Performed By: #### L500.2500, L501.4010 #### [facility] [address] [place], [place], [address] TROPONIN-I Collected: 08/29/2017 Status: F Source: [place] 11:58 AM [facility] REPOSITORY TYPE CODE TESTS RESULT OUT OF RANGE REFERENCE UNITS LAB L501.4010 <0.045 ng/mL Normal < 0.015 TROPONIN-I Result Comment: TROPONIN-I EXPECTED VALUES <0.045 Negative 0.045 - 0.590 Consistent with Cardiac Damage > OR = 0.600 Critical Value Not every elevated troponin is indicative of DE. These values should be used with clinical judgement in examining the patient's clinical picture for diagnosis. To establish a diagnosis of DE versus myocardial injury, there must be a demonstrated rise and/or fall in the troponin values, in addition to ischemic symptoms, EKG changes, new regional wall motion abnormality, and/or angiographical evidence. PLEASE NOTE: REFERENCE RANGES EDITED 17 Performed By: #### L500.2500, L501.4010 #### [facility] [address] [place], [place], [address] PROTHROMBIN TIME W/INR Collected: 08/29/2017 Status: F Source: [place] 11:58 AM [facility] REPOSITORY TYPE CODE TESTS RESULT OUT OF RANGE REFERENCE UNITS LAB L300.4150 11.7-14.9 SECONDS Normal PROTIME 13.0 LAB L300.4200 Normal INR 1.0 Performed By: #### L300.3900, L300.4310 #### [facility] [address] [place] [place], [address] PARTIAL THROMBOPLAST Collected: 08/29/2017 Status: F Source: KULWINDER TIME 11:58 AM [facility] REPOSITORY TYPE CODE TESTS RESULT OUT OF RANGE REFERENCE UNITS LAB L300.4310 24.1-36.2 Seconds Normal PTT 28.6 Performed By: #### L300.3900, L300.4310 #### [facility] [address] [place], [address] GLUCOSE Collected: 08/29/2017 Status: F Source: KUL[place]ER 11:10 AM [facility] REPOSITORY Order Comment: FAST GLUCOSE TYPE CODE TESTS RESULT OUT OF RANGE REFERENCE UNITS LAB L501.0100 74-106 mg/dL High GLU 140 Result Comment: Fasting Glucose result greater than or equal to 126 mg/dL suggests DIABETES MELLITUS per A.D.A. criteria. Please note revised GLUCOSE reference range effective 2017. Performed By: #### L501.0100 #### [facility] [address] [place], [address] PET/CT TUMOR BASE Observed: 08/29/2017 Status: F Source: VENETIA -THIGH SUBS 5:38 AM [facility] REPOSITORY [facility] Imaging Services [address] [place] [address] PET/CT Tumor Base -Thigh Subs MR#: [id number] Acct: [id number] Name: PEDRO LUIS WILCOX Rep #: [id number] : 1970 F 47 From: Clay Real DO PCP: Jacinto Person MD Status: REG CLI Study: PET/CT Tumor Base -Thigh Subs Date of Exam: 08/29/17 Exam# [id number] Ordering Dr: Clifford Barakat DO ADDENDUM by [...] are not apparent on the current examination. Pxba-N-Hiii-MediPort placement is noted. The prior defined morphologic-anatomic [...] are not apparent on the current examination. Unsb-U-Yzbp-MediPort placement is noted. The prior defined morphologic-anatomic [...] Tel , Service support , CC: Jacinto Perosn MD; Clifford Barakat DO Freight Elevator Erector: Signed PROGRESS Observed: 08/23/2017 Status: COMPLETED Source: [place] 9:04 AM [facility] REPOSITORY O ID: [id number] Author: Clifford Barakat Service: (none) Author Type: [...] stopped after cycle #2. Was seen by cheese cooker at . Biopsy showed myopathy, but etiology [...] poorly differentiated carcinoma. See comment. COMMENT Immunohistochemistry ([id number]) does not rule out a breast primary. There is focal perinodal extension of tumor. Clinical correlation is suggested. ANTIBODY / CLONE RESULT Block 1 Mammaglobin (31A5) negative GATA3 (L50-823) positive, rare, dim CK8 (15dknmK49) positive Ki-67 (30-9) positive, moderate to high [...] No jaundice or rash. No petechiae. 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 No focal motor [...] drug for now. -PET next Tuesday at [facility]. Clifford Barakat DO CNOVSP Observed: 08/23/2017 Status: COMPLETED Source: [place] 8:50 AM [facility] REPOSITORY Visit (SP) Office (DANYEL) PEDRO LUIS WILCOX ([id number]) 1970 F Date Time Provider Department 08/23/17 [...] stopped after cycle #2. Was seen by cheese cooker at . Biopsy showed myopathy, but etiology [...] poorly differentiated carcinoma. See comment. COMMENT Immunohistochemistry ([id number]) does not rule out a breast primary. There is focal perinodal extension of tumor. Clinical correlation is suggested. ANTIBODY / CLONE RESULT Block 1 Mammaglobin (31A5) negative GATA3 (L50-823) positive, rare, dim CK8 (87pweuE50) positive Ki-67 (30-9) positive, moderate to high [...] No jaundice or rash. No petechiae. 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 No focal motor [...] drug for now. -PET next Tuesday at [facility]. Clifford Barakat DO Referring Provider: CLIFFORD BARAKAT [[id number]] Allergies As of Date: 08/23/2017 (No Known Allergies) Date Reviewed: 08/23/2017 Reviewed by: Veronica Harris Ma - Fully Assessed Reason for Visit: Established Patient [175] Primary Visit Diagnosis:Malignant neoplasm of upper-outer quadrant of right breast in female, estrogen receptor negative (HCC) [C50.411, Z17.1] [facility] [[id number]] Order #: [id number]: 1 [] INV ABT-888 OR PLACEBO (INV [...] More... HYPERLIPIDEMIA NEC/NOS [E78.5] INVALID FOR* FIBROMYALGIA [[id number]] INVALID FOR* Priority: Moderate OVERWEIGHT [E66.9] INVALID [...] 08/23/2017 Status: F Source: [place] 7:30 AM [facility] REPOSITORY Order Comment: MEDOUT/PORT DRAW TYPE CODE [...] Lymph 2.00 Performed By: #### L100.0100 #### [facility] [address] [place], [address] COMPREHENSIVE METABOLIC Collected: 08/23/2017 Status: F Source: [place] [facility] 7:30 AM [facility] REPOSITORY Order Comment: MEDOUT/PORT DRAW TYPE CODE [...] 7 Performed By: #### L500.4050, L501.5200 #### [facility] [address] [place], [address] MAGNESIUM Collected: 08/23/2017 Status: F Source: [place] 7:30 AM [facility] REPOSITORY Order Comment: MEDOUT/PORT DRAW TYPE CODE TESTS RESULT OUT OF RANGE REFERENCE UNITS LAB L501.5200 1.6-2.6 mg/dL Low MG 1.5 Performed By: #### L500.4050, L501.5200 #### [facility] [address] [place], [address] HOSP Observed: 08/23/2017 Status: COMPLETED Source: [place] 12:00 AM [facility] REPOSITORY Patient Update (DANYEL) PEDRO LUIS WILCOX ([id number]) 1970 F Date Time Provider Department 08/23/17 [...] ok. ?? Labs earlier today drawn at [facility]: CBC Hgb 11.1, grade 1, [...] patient to have a PET scan. ? [place] order-- The patient was given a new [...] in 3 weeks with labs prior at [facility] for Cycle #11. Patient agreeable [...] More... HYPERLIPIDEMIA NEC/NOS [E78.5] INVALID FOR* FIBROMYALGIA [BIT2379] INVALID FOR* Priority: Moderate OVERWEIGHT [E66.9] INVALID [...] ok. ?? Labs earlier today drawn at [facility]: CBC Hgb 11.1, grade 1, [...] patient to have a PET scan. ? [place] order-- The patient was given a new [...] in 3 weeks with labs prior at [facility] for Cycle #11. Patient agreeable with this plan. She has contact numbers if she needs anything in the interim. ? Emre Mcdonough RN Encounter Status:Closed by EMRE MCDONOUGH on 08/30/17 ABDOMEN/PELVIS WITH Observed: 08/16/2017 Status: F Source: KULWINDER CONTRAST 12:59 PM [facility] REPOSITORY [facility] Imaging Services [address] [place] [address] Abdomen/Pelvis WITH Contrast MR#: [id number] Acct: [id number] Name: PEDRO LUIS WILCOX Rep #: [id number] : 1970 F 47 From: Sintia Balderas MD PCP: Jacinto Person MD Status: REG CLI Study: Abdomen/Pelvis WITH Contrast Date of Exam: 08/16/17 Exam# [id number] Ordering Dr: Clifford Barakat DO STUDY: CT [...] CC: Jacinto Person MD; Clifford Barakat DO Freight Elevator Erector: Signed CHEST WITH CONTRAST Observed: 08/16/2017 Status: F Source: [place] 12:56 PM [facility] REPOSITORY [facility] Imaging Services [address] [place] [address] Chest WITH Contrast MR#: [id number] Acct: [id number] Name: PEDRO LUIS WILCOX Rep #: [id number] : 1970 F 47 From: Sintia Balderas MD PCP: Jacinto Person MD Status: REG CLI Study: Chest WITH Contrast Date of Exam: 08/16/17 Exam# [id number] Ordering Dr: Clifford Barakat DO STUDY: CT [...] CC: Jacinto Person MD; Clifford Barakat DO Freight Elevator Erector: Signed BONE SCAN WHOLE Observed: 08/16/2017 Status: F Source: [place] BODY 7:59 AM [facility] REPOSITORY [facility] Imaging Services [address] [place] [address] Bone Scan Whole Body MR#: [id number] Acct: [id number] Name: PEDRO LUIS WILCOX Rep #: [id number] : 1970 F 47 From: Clay Real DO PCP: Jacinto Person MD Status: REG CLI Study: Bone Scan Whole Body Date of Exam: 08/16/17 Exam# [id number] Ordering Dr: Clifford Barakat DO CLINICAL: 47-year-old [...] CC: Jacinto Person MD; Clifford Barakat DO Freight Elevator Erector: Signed PROGRESS Observed: 08/02/2017 Status: COMPLETED Source: [place] 12:[address] [facility] REPOSITORY HNO ID: [id number] Author: Clifford Barakat Service: (none) Author Type: [...] two cycles of TC. Admitted for severe PGAE. Admitted 12/17/2013 due to increase in thigh pain and dyspnea. Markedly elevated CK. No increase in serum Cr. Chemotherapy stopped after cycle #2. Was seen by cheese cooker at . Biopsy showed myopathy, but etiology [...] poorly differentiated carcinoma. See comment. COMMENT Immunohistochemistry ([id number]) does not rule out a breast primary. There is focal perinodal extension of tumor. Clinical correlation is suggested. ANTIBODY / CLONE RESULT Block 1 Mammaglobin (31A5) negative GATA3 (L50-823) positive, rare, dim CK8 (49xajyQ41) positive Ki-67 (30-9) positive, moderate to high [...] No jaundice or rash. No petechiae. 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 No focal motor [...] September. -Continue study drug for now. Clifford Barkaat DO CNOVSP Observed: 08/02/2017 Status: COMPLETED Source: [place] 11:50 AM [facility] REPOSITORY Visit (SP) Office (DANYEL) PEDRO LUIS WILCOX ([id number]) 1970 F Date Time Provider Department 08/02/17 11:50 AM CLIFFORD BARAKAT During your visit today, we recorded the following information about you: Temperature Pulse Blood pressure Weight 98.2 degrees 112/minute 117/58 92.5 kg Orlando Langston (Tiffanie), TIFFANIE 08/02/2017 12:11 PM Signed Est pt, discuss recent lab results. , study pt. Orlando Langston, [employer] Clifford Barakat 08/02/2017 1:21 PM Signed Diagnosis: [...] stopped after cycle #2. Was seen by cheese cooker at . Biopsy showed myopathy, but etiology [...] poorly differentiated carcinoma. See comment. COMMENT Immunohistochemistry ([id number]) does not rule out a breast primary. There is focal perinodal extension of tumor. Clinical correlation is suggested. ANTIBODY / CLONE RESULT Block 1 Mammaglobin (31A5) negative GATA3 (L50-823) positive, rare, dim CK8 (19joxdF79) positive Ki-67 (30-9) positive, moderate to high [...] No jaundice or rash. No petechiae. 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 HYPERLIPIDEMIA NEC/NOS [E78.5] INVALID FOR* FIBROMYALGIA [[id number]] INVALID FOR* Priority: Moderate OVERWEIGHT [E66.9] INVALID [...] 08/02/2017 Status: F Source: [place] 9:10 AM [facility] REPOSITORY TYPE CODE TESTS RESULT OUT OF [...] Lymph 1.48 Performed By: #### L100.0100 #### [facility] [place], [address] COMPREHENSIVE METABOLIC Collected: 08/02/2017 Status: F Source: [place] HU 9:10 AM [facility] REPOSITORY TYPE CODE TESTS RESULT OUT OF [...] Performed By: #### L500.4050, L501.5200, L501.9520 #### [facility] [place], [address] MAGNESIUM Collected: 08/02/2017 Status: F Source: [place] 9:10 AM [facility] REPOSITORY TYPE CODE TESTS RESULT OUT OF RANGE REFERENCE UNITS LAB L501.5200 1.6-2.6 mg/dL Low MG 1.5 Performed By: #### L500.4050, L501.5200, L501.9520 #### [facility] [address] [place], [address] THYROID STIM HORMONE Collected: 08/02/2017 Status: F Source: [place] ([facility]) 9:10 AM [facility] REPOSITORY TYPE CODE TESTS RESULT OUT OF RANGE REFERENCE UNITS LAB L501.9520 0.358-3.74 uIU/mL Normal TSH 0.71 Performed By: #### L500.4050, L501.5200, L501.9520 #### [facility] [address] [place], [address] VITAMIN B12 Collected: 08/02/2017 Status: F Source: [place] 9:10 AM [facility] REPOSITORY TYPE CODE TESTS RESULT OUT OF RANGE REFERENCE UNITS LAB L503.0105 211-911 pg/mL Normal Vitamin B12 678 Performed By: #### L503.0105 #### [facility] [address] [place], [address] HOSP Observed: 08/02/2017 Status: COMPLETED Source: [place] 12:00 AM [facility] REPOSITORY Patient Update ([place]) PEDRO LUIS WILCOX ([id number]) 1970 F Date Time Provider Department 08/02/17 [...] rest. ?? Labs earlier today drawn at [facility]: CBC Hgb 11.4, grade 1, [...] will bring them to clinic tomorrow. ?? [place] order-- Dr. Barakat ok to give patient [...] in 3 weeks with labs prior at [facility] for Cycle #10 (08/23/17). Patient also given order for CT C/A/P and bone scan to be done at [facility] (per insurance) prior to visit. [...] Date Reviewed: 08/02/2017 Reviewed by: Orlando Lanier ([facility]) TIFFANIE Langston - Fully Assessed Reason for [...] More... HYPERLIPIDEMIA NEC/NOS [E78.5] INVALID FOR* FIBROMYALGIA [[id number]] INVALID FOR* Priority: Moderate OVERWEIGHT [E66.9] INVALID [...] rest. ?? Labs earlier today drawn at [facility]: CBC Hgb 11.4, grade 1, [...] will bring them to clinic tomorrow. ?? [place] order-- Dr. Barakat ok to give patient [...] in 3 weeks with labs prior at [facility] for Cycle #10 (08/23/17). Patient also given order for CT C/A/P and bone scan to be done at [facility] (per insurance) prior to visit. [...] 08/03/17 HOSP Observed: 07/22/2017 Status: COMPLETED Source: [place] 12:00 AM [facility] REPOSITORY Patient Update (DANYEL) PEDRO LUIS WILCOX ([id number]) 1970 F Date Time Provider Department 07/22/17 EMRE MCDONOUGH) DANYEL During your visit today, we recorded the following information about you: Emre Mcodnough RN 07/22/2017 12:47 PM Signed Patient did [...] days as dispensed by the pharmacy and [place] order. This will provide her enough pills [...] TABLET Take 10 mg by mouth once gmaaliel* VITAMIN B COMPLEX CAPSULE Take 1 capsule [...] More... HYPERLIPIDEMIA NEC/NOS [E78.5] INVALID FOR* FIBROMYALGIA [[id number]] INVALID FOR* Priority: Moderate OVERWEIGHT [E66.9] INVALID [...] days as dispensed by the pharmacy and [place] order. This will provide her enough pills to get to next appointment on increased dose. Patient states that she is tolerating the increase dose so far without any issues. Patient has upcoming appointment times and has contact information for any needs/concerns in the interim. Emre Mcdonough RN Encounter Status:Closed by EMRE MCDONOUGH on 07/22/17 CNCO Observed: 07/22/2017 Status: COMPLETED Source: [place] 12:00 AM [facility] REPOSITORY Letter Text Clifford Barakat DO Hematology AND Medical Oncology/[address] [place] [address] 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 HYPERLIPIDEMIA NEC/NOS [E78.5] INVALID FOR* FIBROMYALGIA [[id number]] INVALID FOR* Priority: Moderate OVERWEIGHT [E66.9] INVALID [...] Late Note for 07/18/17: Patient in and medicinal plant picker a new bottle of Veliparib vs Placebo 100mg, with 64 capsules as dispensed by the pharmacy. Patient denies any issues or new concerns. Emre Mcdonough RN Encounter Status:Closed by EMRE MCDONOUGH on 07/19/17 HOSP Observed: 07/19/2017 Status: COMPLETED Source: [place] 12:00 AM [facility] REPOSITORY Patient Update (DANYEL) PEDRO LUIS WILCOX ([id number]) 1970 F Date Time Provider Department 07/19/17 [...] she will come in this week to medicinal plant picker another bottle to get to appointment on 08/02/17. [place] in pharmacy aware. [place] order sent to Dr. Barakat and signed. She has also asked for port flush order for [facility]. She would like to medicinal plant picker at the same time. Dr. Barakat aware [...] More... HYPERLIPIDEMIA NEC/NOS [E78.5] INVALID FOR* FIBROMYALGIA [[id number]] INVALID FOR* Priority: Moderate OVERWEIGHT [E66.9] INVALID [...] she will come in this week to medicinal plant picker another bottle to get to appointment on 08/02/17. [place] in pharmacy aware. [place] order sent to Dr. Barakat and signed. She has also asked for port flush order for [facility]. She would like to medicinal plant picker at the same time. Dr. Barakat aware and orders signed. Emre Mcdonough RN Encounter Status:Closed by EMRE MCDONOUGH on 07/21/17 CNOVS Observed: 07/12/2017 Status: COMPLETED Source: [place] 4:00 PM [facility] REPOSITORY Visit (SP) Office (DANYEL) PEDRO LUIS WILCOX ([id number]) 1970 F Date Time Provider Department 07/12/17 [...] after cycle #2. ? Was seen by cheese cooker at . Biopsy showed myopathy, but etiology [...] poorly differentiated carcinoma. See comment. COMMENT Immunohistochemistry ([id number]) does not rule out a breast primary. There is focal perinodal extension of tumor. Clinical correlation is suggested. ? ANTIBODY / CLONE RESULT Block 1 Mammaglobin (31A5) negative GATA3 (L50-823) positive, rare, dim CK8 (70nmdtA84) positive Ki-67 (30-9) positive, moderate to high [...] No jaundice or rash. No petechiae. 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 No focal motor [...] Dr. Jacinto Person Referring Provider: CLIFFORD BARAKAT [[id number]] Allergies As of Date: 07/12/2017 (No Known Allergies) Date Reviewed: 07/12/2017 Reviewed by: Veronica Harris - Fully Assessed Reason for Visit: Established Patient [175] Primary Visit Diagnosis:Malignant neoplasm of upper-outer quadrant of right breast in female, estrogen receptor negative (HCC) [C50.411, Z17.1] Other Visit Diagnoses:Examination of participant in clinical trial [Z00.6] Neuropathy (HCC) [G62.9] Order(s):HEMONC COMMUNICATION ORDER [[id number]] Order #: [id number]: 1 HEMONC NURSING COMMUNICATION [5653711] Order #: [id number]: 1 STANDING HEMONC NURSING COMMUNICATION [0502349] Order #: [id number]: 1 STANDING HEMONC NURSING COMMUNICATION [[id number]] Order #: [id number]: 1 STANDING HEMONC NURSING COMMUNICATION [7603900] Order #: [id number]: 1 STANDING HEMONC NURSING COMMUNICATION [[id number]] Order #: [id number]: 1 STANDING Level of Service: EST PATIENT VISIT LEVEL 3 [[id number]] Disposition: Return in about 3 weeks (around [...] More... HYPERLIPIDEMIA NEC/NOS [E78.5] INVALID FOR* FIBROMYALGIA [[id number]] INVALID FOR* Priority: Moderate OVERWEIGHT [E66.9] INVALID [...] 07/13/17 PROGRESS Observed: 07/12/2017 Status: COMPLETED Source: [place] 3:59 PM [facility] REPOSITORY O ID: [id number] Author: Arabella Donovan Service: (none) Author Type: [...] after cycle #2. ? Was seen by cheese cooker at . Biopsy showed myopathy, but etiology [...] poorly differentiated carcinoma. See comment. COMMENT Immunohistochemistry ([id number]) does not rule out a breast primary. There is focal perinodal extension of tumor. Clinical correlation is suggested. ? ANTIBODY / CLONE RESULT Block 1 Mammaglobin (31A5) negative GATA3 (L50-823) positive, rare, dim CK8 (13xavyE01) positive Ki-67 (30-9) positive, moderate to high [...] No jaundice or rash. No petechiae. 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 No focal motor [...] W/DIFF, AUTOMATED Collected: 07/12/2017 Status: F Source: [place] 9:08 AM [facility] REPOSITORY TYPE CODE TESTS RESULT OUT OF [...] Lymph 1.76 Performed By: #### L100.0100 #### [facility] [address] [place], [place], [address] COMPREHENSIVE METABOLIC Collected: 07/12/2017 Status: F Source: [facility] 9:08 AM [facility] REPOSITORY TYPE CODE TESTS RESULT OUT OF [...] 5 Performed By: #### L500.4050, L501.5200 #### [facility] [address] [facility] [place], [address] MAGNESIUM Collected: 07/12/2017 Status: F Source: [place] 9:08 AM [facility] REPOSITORY TYPE CODE TESTS RESULT OUT OF RANGE REFERENCE UNITS LAB L501.5200 1.6-2.6 mg/dL Normal MG 1.7 Result Comment: Please note revised Magnesium reference range effective 2017. Performed By: #### L500.4050, L501.5200 #### [facility] [address] [facility] [place], [address] HOSP Observed: 07/12/2017 Status: COMPLETED Source: [place] 12:00 AM [facility] REPOSITORY Patient Update (DANYEL) PEDRO LUIS WILCOX ([id number]) 1970 F Date Time Provider Department 07/12/17 [...] good. ?? Labs earlier today drawn at [facility]: CBC Hgb 11.1, grade 1, [...] with study medication self administration. ? ? [place] order-- The patient was given a new study medication diary and the current?bottles?of Veliparib vs Placebo with 35?capsules remaining. Unable to give a new bottle with 64 capsules as pharmacist not available at end of patient's appointment. 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 Per pill count, patient has [...] in 3 weeks with labs prior at [facility] for Cycle #9. Patient agreeable [...] More... HYPERLIPIDEMIA NEC/NOS [E78.5] INVALID FOR* FIBROMYALGIA [[id number]] INVALID FOR* Priority: Moderate OVERWEIGHT [E66.9] INVALID [...] good. ?? Labs earlier today drawn at [facility]: CBC Hgb 11.1, grade 1, [...] with study medication self administration. ? ? [place] order-- The patient was given a new study medication diary and the current?bottles?of Veliparib vs Placebo with 35?capsules remaining. Unable to give a new bottle with 64 capsules as pharmacist not available at end of patient's appointment. 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 Per pill count, patient has [...] in 3 weeks with labs prior at [facility] for Cycle #9. Patient agreeable with this plan. She has contact numbers if she needs anything in the interim. Emre Mcdonough RN Medications Discontinued During This Encounter INV ABT-888 OR PLACEBO (INV S1416/17* 07/12/2017 07/13/2017 Route: ORAL Sig: Disc: Auto DC at discharge. Encounter Status:Closed by EMRE MCDONOUGH on 07/13/17 PROGRESS Observed: 06/21/2017 Status: COMPLETED Source: [place] 12:34 PM [facility] REPOSITORY O ID: [id number] Author: Clifford Barakat Service: (none) Author Type: [...] stopped after cycle #2. Was seen by cheese cooker at . Biopsy showed myopathy, but etiology [...] poorly differentiated carcinoma. See comment. COMMENT Immunohistochemistry ([id number]) does not rule out a breast primary. There is focal perinodal extension of tumor. Clinical correlation is suggested. ANTIBODY / CLONE RESULT Block 1 Mammaglobin (31A5) negative GATA3 (L50-823) positive, rare, dim CK8 (37zpygU18) positive Ki-67 (30-9) positive, moderate to high [...] No jaundice or rash. No petechiae. 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 No focal motor [...] DO CNOVSP Observed: 06/21/2017 Status: COMPLETED Source: [place] 11:30 AM [facility] REPOSITORY Visit (SP) Office (DANYEL) PEDRO LUIS WILCOX ([id number]) 1970 F Date Time Provider Department 06/21/17 [...] stopped after cycle #2. Was seen by cheese cooker at . Biopsy showed myopathy, but etiology [...] poorly differentiated carcinoma. See comment. COMMENT Immunohistochemistry ([id number]) does not rule out a breast primary. There is focal perinodal extension of tumor. Clinical correlation is suggested. ANTIBODY / CLONE RESULT Block 1 Mammaglobin (31A5) negative GATA3 (L50-823) positive, rare, dim CK8 (72fskpN66) positive Ki-67 (30-9) positive, moderate to high [...] No jaundice or rash. No petechiae. 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 HYPERLIPIDEMIA NEC/NOS [E78.5] INVALID FOR* FIBROMYALGIA [SPD4871] INVALID FOR* Priority: Moderate OVERWEIGHT [E66.9] INVALID [...] 06/21/2017 Status: F Source: [place] 9:16 AM [facility] REPOSITORY TYPE CODE TESTS RESULT OUT OF [...] Lymph 1.76 Performed By: #### L100.0100 #### [facility] [address] [place], [address] COMPREHENSIVE METABOLIC Collected: 06/21/2017 Status: F Source: [facility] 9:16 AM [facility] REPOSITORY TYPE CODE TESTS RESULT OUT OF [...] 6 Performed By: #### L500.4050, L501.5200 #### [facility] [address] [place], [place], [address] MAGNESIUM Collected: 06/21/2017 Status: F Source: [place] 9:16 AM [facility] REPOSITORY TYPE CODE TESTS RESULT OUT OF RANGE REFERENCE UNITS LAB L501.5200 1.6-2.6 mg/dL Normal MG 1.8 Result Comment: Please note revised Magnesium reference range effective 2017. Performed By: #### L500.4050, L501.5200 #### [facility] [address] [place], [address] HIPS B/L MIN 2 Observed: 06/21/2017 Status: F Source: [place] VIEWS W/ PELVIS 8:36 AM [facility] REPOSITORY [facility] Imaging Services [address] [place] [address] Hips B/L min 2 views w/ Pelvis MR#: [id number] Acct: [id number] Name: PEDRO LUIS WILCOX Rep #: [id number] : 1970 F 47 From: Ruperto Sahu MD PCP: Jacinto Person MD Status: REG CLI Study: Hips B/L min 2 views w/ Pelvis Date of Exam: 06/21/17 Exam# [id number] Ordering Dr: Clifford Barakat DO STUDY: X-RAY [...] CC: Jacinto Person MD; Clifford Barakat DO Freight Elevator Erector: Signed HOSP Observed: 06/21/2017 Status: COMPLETED Source: [place] 12:00 AM [facility] REPOSITORY Patient Update (HEMAWS) PEDRO LUIS WILCOX ([id number]) 1970 F Date Time Provider Department 06/21/17 [...] good. ?? Labs earlier today drawn at [facility]: CBC Hgb 11.3, grade 1, [...] measurements of non-measurable disease. Stable disease. (non-CR/non-[place]) [place] order-- The patient was given a new [...] in 3 weeks with labs prior at [facility] for Cycle #8. Patient agreeable [...] More... HYPERLIPIDEMIA NEC/NOS [E78.5] INVALID FOR* FIBROMYALGIA [[id number]] INVALID FOR* Priority: Moderate OVERWEIGHT [E66.9] INVALID [...] good. ?? Labs earlier today drawn at [facility]: CBC Hgb 11.3, grade 1, [...] measurements of non-measurable disease. Stable disease. (non-CR/non-[place]) [place] order-- The patient was given a new [...] in 3 weeks with labs prior at [facility] for Cycle #8. Patient agreeable with this plan. She has contact numbers if she needs anything in the interim. Emre Mcdonough RN Encounter Status:Closed by EMRE MCDONOUGH on 06/21/17 CHEST WITH CONTRAST Observed: 06/20/2017 Status: F Source: [place] 1:29 PM [facility] REPOSITORY [facility] Imaging Services [address] [place] [address] Chest WITH Contrast MR#: [id number] Acct: [id number] Name: PEDRO LUIS WILCOX Rep #: [id number] : 1970 F 47 From: Darryl Ford MD PCP: Jacinto Person MD Status: REG CLI Study: Chest WITH Contrast Date of Exam: 06/20/17 Exam# [id number] Ordering Dr: Clifford Barakat DO STUDY: CT [...] Darryl Ford MD at 14:48 EST Tel [phone], Service support , CC: Jacinto Person MD; Clifford Barakat DO Freight Elevator Erector: Signed ABDOMEN/PELVIS WITH Observed: 06/20/2017 Status: F Source: [place] CONTRAST 1:29 PM [facility] REPOSITORY [facility] Imaging Services [address] [place] [address] Abdomen/Pelvis WITH Contrast MR#: [id number] Acct: [id number] Name: PEDRO LUIS WLICOX Rep #: [id number] : 1970 F 47 From: Darryl Ford MD PCP: Jacinto Person MD Status: REG CLI Study: Abdomen/Pelvis WITH Contrast Date of Exam: 06/20/17 Exam# [id number] Ordering Dr: Clifford Barakat DO STUDY: CT [...] Darryl Ford MD at 14:52 EST Tel [phone], Service support , CC: Jacinto Person MD; Clifford Barakat DO Freight Elevator Erector: Signed HOSP Observed: 06/13/2017 Status: COMPLETED Source: [place] 12:00 AM [facility] REPOSITORY Patient Update (DANYEL) PEDRO LUIS WILCOX ([id number]) 1970 F Date Time Provider Department 06/13/17 EMRE MCDONOUGH) DANYEL During your visit today, we recorded the following information about you: Emre Mcdonough RN 06/13/2017 4:31 PM Signed Clinical Trial Note for S1416: Patient in today medicinal plant picker 2nd bottle of pills for Cycle #6. Patient states that she has been compliant with study medication except she took last pills last pm and did not have any for this am dose. The patient was given a new bottle?of Veliparib vs Placebo with 64 capsules as dispensed by the pharmacy. See [place] documentation by pharmacy. Patient will restart study [...] More... 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 Patient states that she has been compliant with study medication except she took last pills last pm and did not have any for this am dose. The patient was given a new bottle?of Veliparib vs Placebo with 64 capsules as dispensed by the pharmacy. See [place] documentation by pharmacy. Patient will restart study medication tonight. Patient denies any issues or concerns at this time. States she feels good. Reminded of appointment times. Emre Mcdonough RN Encounter Status:Closed by EMRE MCDONOUGH on 06/13/17 BONE SCAN WHOLE Observed: 06/09/2017 Status: F Source: [place] BODY 9:27 AM [facility] REPOSITORY [facility] Imaging Services [address] [place] [address] Bone Scan Whole Body MR#: [id number] Acct: [id number] Name: PEDRO LUIS WILCOX Rep #: [id number] : 1970 F 47 From: Clay Real DO PCP: Raza VELAZQUEZ,Jacinto Status: REG CLI Study: Bone Scan Whole Body Date of Exam: 06/09/17 Exam# [id number] Ordering Dr: Clifford Barakat DO CLINICAL: 47-year-old [...] CC: Jacinto Person MD; Clifford Barakat DO Freight Elevator Erector: Signed PROGRESS Observed: 06/01/2017 Status: COMPLETED Source: [place] 10:[address] [facility] REPOSITORY O ID: [id number] Author: Isha Servin (Sw) Service: (none) Author Type: Contract Lead Type: Progress Notes Filed: 06/01/2017 10:36 AM [...] Nunez PROGRESS Observed: 06/01/2017 Status: COMPLETED Source: [place] 9:43 AM [facility] REPOSITORY HNO ID: [id number] Author: Clifford Barakat Service: (none) Author Type: [...] stopped after cycle #2. Was seen by cheese cooker at . Biopsy showed myopathy, but etiology [...] poorly differentiated carcinoma. See comment. COMMENT Immunohistochemistry ([id number]) does not rule out a breast primary. There is focal perinodal extension of tumor. Clinical correlation is suggested. ANTIBODY / CLONE RESULT Block 1 Mammaglobin (31A5) negative GATA3 (L50-823) positive, rare, dim CK8 (00domoY51) positive Ki-67 (30-9) positive, moderate to high [...] No jaundice or rash. No petechiae. 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 No focal motor [...] DO CNOVSP Observed: 06/01/2017 Status: COMPLETED Source: [place] 9:10 AM [facility] REPOSITORY Visit (SP) Office (DANYEL) PEDRO LUIS WILCOX ([id number]) 1970 F Date Time Provider Department 06/01/17 9:10 AM CLIFFORD BARAKAT During your visit today, we recorded the following information about you: Temperature Pulse Blood pressure Weight 97.9 degrees 107/minute 140/66 90.3 kg Federica Pimentel LPN 06/01/2017 9:11 AM Signed Est patient. 3 week ov. Had labs this am @ [facility]. Labs not yet available. Federica [...] stopped after cycle #2. Was seen by cheese cooker at . Biopsy showed myopathy, but etiology [...] poorly differentiated carcinoma. See comment. COMMENT Immunohistochemistry ([id number]) does not rule out a breast primary. There is focal perinodal extension of tumor. Clinical correlation is suggested. ANTIBODY / CLONE RESULT Block 1 Mammaglobin (31A5) negative GATA3 (L50-823) positive, rare, dim CK8 (90ughvY27) positive Ki-67 (30-9) positive, moderate to high [...] chronic symptom. She finds oftentimes shows to [email or web address] Walk around long distances and she ends [...] No jaundice or rash. No petechiae. 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 No focal motor [...] Clifford Barakat DO Referring Provider: CLIFFORD BARAKAT [[id number]] Allergies As of Date: 06/01/2017 (No Known Allergies) Date Reviewed: 06/01/2017 Reviewed by: Federica Pimentel LPN - Fully Assessed Reason for Visit: Established Patient [175] Primary Visit Diagnosis:Malignant neoplasm of upper-outer quadrant of right breast in female, estrogen receptor negative (HCC) [C50.411, Z17.1] Other Visit Diagnosis:Pain of both hip joints [M25.551, M25.552] Order(s):XR PELVIS 2V AP HIP/FROG HIP BILAT [[id number]] Order #: [id number] [facility] COMMUNICATION ORDER [[id number]] Order #: [id number]: 1 Prescriptions as of 06/01/2017 Sig: METOCLOPRAMIDE [...] More... HYPERLIPIDEMIA NEC/NOS [E78.5] INVALID FOR* FIBROMYALGIA [FPW3888] INVALID FOR* Priority: Moderate OVERWEIGHT [E66.9] INVALID [...] week ov. Had labs this am @ [facility]. Labs not yet available. Federica Pimentel LPN Encounter Status:Closed by CLIFFORD BARAKAT DO on 06/01/17 CBC W/DIFF, AUTOMATED Collected: 06/01/2017 Status: F Source: [place] 7:30 AM [facility] REPOSITORY TYPE CODE TESTS RESULT OUT OF [...] Lymph 2.17 Performed By: #### L100.0100 #### [facility] [address] [place], [address] COMPREHENSIVE METABOLIC Collected: 06/01/2017 Status: F Source: [facility] 7:30 AM [facility] REPOSITORY TYPE CODE TESTS RESULT OUT OF [...] 11 Performed By: #### L500.4050, L501.5200 #### [facility] [address] [facility] [place], [place], [address] MAGNESIUM Collected: 06/01/2017 Status: F Source: [place] 7:30 AM [facility] REPOSITORY TYPE CODE TESTS RESULT OUT OF RANGE REFERENCE UNITS LAB L501.5200 1.6-2.6 mg/dL Low MG 1.5 Result Comment: Please note revised Magnesium reference range effective 2017. Performed By: #### L500.4050, L501.5200 #### [facility] [address] [facility] [place], [address] HOSP Observed: 06/01/2017 Status: COMPLETED Source: [place] 12:00 AM [facility] REPOSITORY Patient Update (HEMAWS) PEDRO LUIS WILCOX ([id number]) 1970 F Date Time Provider Department 06/01/17 [...] C/O's ?? Labs earlier today drawn at [facility]: CBC Hgb 10.8, grade 1, [...] study pills as monotherapy per protocol. ? [place] order-- The patient was given a new [...] Bone scan is on 06/09/17 due to [facility] policy of have bone scan [...] More... HYPERLIPIDEMIA NEC/NOS [E78.5] INVALID FOR* FIBROMYALGIA [SJT9424] INVALID FOR* Priority: Moderate OVERWEIGHT [E66.9] INVALID [...] C/O's ?? Labs earlier today drawn at [facility]: CBC Hgb 10.8, grade 1, [...] study pills as monotherapy per protocol. ? [place] order-- The patient was given a new [...] Bone scan is on 06/09/17 due to [facility] policy of have bone scan and CT scan at 10 days apart. Patient agreeable with this plan. She has contact numbers if she needs anything in the interim. Emre Mcdonough RN Encounter Status:Closed by EMRE MCDONOUGH on 06/02/17 PROGRESS Observed: 05/30/2017 Status: COMPLETED Source: [place] 4:20 PM [facility] REPOSITORY HNO ID: [id number] Author: Isha Servin (Sw) Service: (none) Author Type: Contract Lead Type: Progress Notes Filed: 05/30/2017 4:20 PM Note Text: SOCIAL WORK FOLLOW UP NOTE: [facility] Date of service: May 30, 2017 [...] Nunez PROGRESS Observed: 05/26/2017 Status: COMPLETED Source: [place] 4:21 PM [facility] REPOSITORY HNO ID: [id number] Author: Isha Servin (Sw) Service: (none) Author Type: Contract Lead Type: Progress Notes Filed: 05/26/2017 4:23 PM Note Text: SOCIAL WORK FOLLOW UP NOTE: [facility] Date of service: May 26, 2017 [...] Nunez PROGRESS Observed: 05/26/2017 Status: COMPLETED Source: [place] 10:06 AM [facility] REPOSIT[facility] HNO ID: [id number] Author: Isha Servin (Sw) Service: (none) Author Type: Contract Lead Type: Progress Notes Filed: 05/26/2017 10:07 AM Note Text: SOCIAL WORK FOLLOW UP NOTE: [facility] Date of service: May 26, 2017 Pedro Luis Wilcox is being seen for a follow up social work visit. Today's visit includes: patient TOPICS ADDRESSED: Disability; Patient has additional disability paperwork from [facility] that needs completed. Patient requests that paperwork not be faxed because she also needs to send additional paperwork along with these documents. 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 SW will completed paperwork and provide to doctor to review and sign. PLAN: Continue follow up as needed F/U APPOINTMENT: 06/01/17 ANNAMARIA Schroeder ALLERGIES ALLERGIES DATE TYPE / CODE NAME / CODE REACTION SEVERITY SOURCE 02/28/2018 Drug No Known Unknown [facility] Allergy/416 Allergies/F44264 Hospital 804529(SNOM 0388(RXNORM) Repository ED CT) Drug NO KNOWN [facility] Class/27594 ALLERGIES [place] 1003(SNOMED Repository CT) ENCOUNTERS ENCOUNTERS ADMIT/DISCHARGE ACCOUNT ADMITTING ENCOUNTER LOCATION SOURCE NUMBER CLASS 05/09/2018 [id number] Ambulatory [facility] ing:MEDOUTP Repository 05/09/2018 [id number] Ambulatory [facility] ing:LAB Repository 05/03/2018/05/09/19 [id number] Ambulatory [place] 19 [facility] Repository 04/26/2018 [id number] Ambulatory [facility] ing:MEDOUTP Repository 04/19/2018 [id number] Ambulatory [facility] ing:MEDOUTP Repository 04/12/2018 [id number] Ambulatory [facility] ing:MEDOUTP Repository 04/04/2018/04/05/20 [id number] Ambulatory [address] Repository 04/04/2018/04/04/20 [id number] Ambulatory [address] ing:LAB Repository 04/03/2018 [id number] Ambulatory [facility] ing:RAD Repository 03/30/2018 [id number] [facility] Rep[facility] 03/27/2018 [id number] [facility] ing:CT Repository 03/22/2018 [id number] [facility] ing:MED[facility]P Repository 03/14/2018 [id number] [facility] [place] [facility] Repository 03/13/2018/03/17/20 [id number] [place] [facility] ing:LAB Repository 03/06/2018/03/07/20 [id number] Ambulatory [address] [place] Repository 02/28/2018 [id number] [facility] ing:MED[facility]P Repository 02/21/2018 [id number] [facility] ing:MED[facility]P Repository 02/13/2018/02/15/20 [id number] Ambulatory [address] [place] Repository 02/10/2018 [id number] [facility]MRI Repository 02/07/2018 [id number] [facility] ing:CT Repository 02/07/2018 [id number] [facility] ing:MED[facility]P Repository 02/07/2018/02/09/20 [id number] Ambulatory [address] [place] Repository 02/06/2018/02/07/20 [id number] Ambulatory [place] [facility] ing:LAB Repository 01/31/2018 [id number] [facility] ing:MED[facility]P Repository 01/24/2018 [id number] [facility] ing:LAB[facility] Repository 01/24/2018 [id number] [facility] ing:MED[facility]P Repository 01/23/2018/01/28/20 [id number] Ambulatory [address] [place] Repository 01/20/2018 [id number] [facility] ing:NM Repository 01/17/2018 [id number] Ambulatory [place] [facility] ing:CT Repository 01/06/2018 [id number] [facility] Repository 01/03/2018 [id number] [facility] Repository 01/03/2018/01/07/20 [id number] Ambulatory [address] [place] Repository 01/03/2018/01/04/20 [id number] Ambulatory [place] [facility] Hospital ing:LAB Repository 12/20/2017 [id number] [facility] [place] [facility] ing:[facility] Repository 12/13/2017 [id number] [facility] ing:MED[facility]P Repository 12/12/2017/12/15/19 [id number] Ambulatory [address] [place] Repository 12/09/2017 [id number] [facility]:EMPH Repository 12/09/2017/12/20/19 [id number] [place] [facility] ing:LAB Repository 12/08/2017 [id number] [facility] ing:CT Repository 12/06/2017 [id number] [facility] ing:NM Repository 11/29/2017 [id number] [facility] [place] [facility] ing:MED[facility]P Repository 11/22/2017 [id number] [facility] [place] [facility] Repository 11/21/2017/11/23/19 [id number] Ambulatory [address] [place] Repository 11/18/2017/11/23/19 [id number] Ambulatory [address] [place] Repository 11/16/2017/11/18/19 [id number] Emergency [place] [facility] ing:ED Repository 11/14/2017/11/15/19 [id number] Ambulatory [place] [facility] ing:LAB Repository 11/09/2017 [id number] Ambulatory [facility] Hospital ing:[facility] Repository 11/08/2017 [id number] Ambulatory [facility] ing:MEDOUTP Repository 11/03/2017/11/04/19 [id number] Ambulatory [facility]Building:B [place] [facility] Repository 11/01/2017 [id number] Ambulatory [facility] Hospital ing:MEDOUTP Repository 10/28/2017/11/02/19 [id number] Ambulatory [address] [place] Repository 10/25/2017/10/28/19 [id number] Ambulatory [place] 18 [facility] [place] Repository 10/20/2017/10/22/19 [id number] Ambulatory [place] 18 [facility] [place] Repository 10/16/2017 [id number] Ambulatory [facility] Hospital ing:LAB Repository 10/11/2017/10/14/19 [id number] Ambulatory [address] [place] Repository 10/10/2017 [id number] Ambulatory [facility] Hospital ing:NM Repository 10/10/2017 [id number] Ambulatory [facility]Building:W [facility] Repository 10/07/2017 [id number] Ambulatory [facility] Hospital ing:NM Repository 10/05/2017 [id number] Ambulatory [facility] Hospital ing:CT Repository 10/04/2017/10/07/19 [id number] Ambulatory [address] [place] Repository 10/04/2017/10/05/19 [id number] Ambulatory [place] [facility] Hospital ing:LAB Repository 09/20/2017 [id number] Ambulatory [facility] Hospital ing:NM Repository 09/13/2017/09/21/19 [id number] Ambulatory [address] [place] Repository 09/13/2017/09/14/19 [id number] Ambulatory [place] [facility] Hospital ing:LAB Repository 09/07/2017/09/08/19 [id number] Ambulatory [place] [facility] Hospital ing:OMD Repository 09/07/2017 [id number] Ambulatory [facility]Building:[place] [facility] Repository 08/29/2017/08/30/19 [id number] Emergency [place] Hospital ing:ED Repository 08/29/2017 [id number] Ambulatory [facility] ing:ONC Repository 08/23/2017/08/27/19 [id number] Ambulatory [address] Repository 08/23/2017 [id number] [facility] ing:MEDOUTP Repository 08/16/2017 [id number] Ambulatory [facility] ing:CT Repository 08/16/2017 [id number] Ambulatory [facility] ing:NM Repository 08/02/2017/08/06/19 [id number] Ambulatory [address] Repository 08/02/2017/08/03/19 [id number] [place] [facility] ing:LAB Repository 08/02/2017 [id number] [facility] Repository 07/12/2017/07/20/19 [id number] Ambulatory [address] Repository 07/12/2017/07/13/19 [id number] Ambulatory [place] [facility] Hospital ing:LAB Repository 06/21/2017/06/24/19 [id number] Ambulatory [address] Repository 06/21/2017 [id number] [facility]RAD Rep[facility] 06/20/2017 [id number] [facility] ing:CT Repository 06/09/2017 [id number] [facility] ing[facility]NM Repository 06/01/2017/06/08/19 [id number] Ambulatory [address] Repository 06/01/2017/06/01/19 [id number] [place] HospitalBuild Hospital ing:LAB Repository PAYERS PAYERS ENCOUNTER GUARANTOR PAYER SUBSCRIBER SOURCE 05/09/2018 TOSHIA H Primary Insurance:[facility] PEDRO LUIS Williamson Kulwinder [id number] [facility]: [facility] 9105-57-74QGELaw[place], [place] Number: Repository [address]Qnc: 330 [id number] [phone] (HP) Date:2551-64-22FN [address] [address]RKVOUAJLT, [place] [address]YP: CHECK WEBSITE 05/09/2018 Secondary NOT GIVENUNK [place] Insurance:SELF PAY [facility] Number: Effective Repository Date:2018-05-09 05/09/2018 TOSHIA H Primary Insurance:[facility] PEDRO LUIS Williamson Kulwinder [id number] [facility]: [facility] 9272-87-10CGQLawton, [place] Number: Repository 77[address]Hab: 330 [id number] [phone] (HP) Date:4010-11-63UZ [address] [address]DVRUXYPPM, [place] [address]DW: CHECK WEBSITE 05/09/2018 Secondary NOT GIVENUNK [place] Insurance:SELF PAY [facility] Number: Effective Repository Date:2018-04-17 04/26/2018 TOSHIA H Primary Insurance:[facility] PEDRO LUIS Williamson Kulwinder [id number] [facility]: [facility] 8726-88-36JOHLawton, [place] Number: Repository [address]Kqk: 330 [id number] [phone]) Date:3844-16-70LM [address] [address]MULZUTPWT, [place] [address]KW: CHECK WEBSITE 04/26/2018 Secondary NOT GIVENUNK [place] Insurance:SELF PAY [facility] Number: Effective Repository Date:2018-04-13 04/19/2018 TOSHIA H Primary Insurance:[facility] PEDRO LUIS Williamson Kulwinder [id number] [facility]: [facility] 6580-03-07KSSLawton, [place] Number: Repository [address]Acs: 330 [id number] [phone] (HP) Date:6223-63-34FH [address] [address]XUOHKRYFW, [place] [address]XY: CHECK WEBSITE 04/19/2018 Secondary NOT GIVENUNK [place] Insurance:SELF PAY [facility] Number: Effective Repository Date:2018-04-04 04/12/2018 TOSHIA H Primary Insurance:[facility] PEDRO LUIS Williamson [place] [id number] [facility]: [facility] 1854-90-27KQRLawton, [place] Number: Repository [address]Xjw: 330 [id number] [phone] () Date:0360-16-13WI [address]MKSYZQXNJ, [place] [address]VX: CHECK WEBSITE 04/12/2018 Secondary NOT GIVENUNK [place] Insurance:SELF PAY [facility] Number: Effective Repository Date:2018-04-04 04/04/2018 TOSHIA H Primary Insurance:[facility] PEDRO LUIS Williamson Kulwinder [id number] [facility]: [facility] 4452-76-60CETLawton, [place] Number: Repository [address]Ihe: 330 [id number] [phone] () Date:7116-63-86CM [address]FLCCQKRZU, [place] [address]LN: CHECK WEBSITE 04/04/2018 Secondary NOT GIVENUNK [place] Insurance:SELF PAY [facility] Number: Effective Repository Date:2018-03-20 04/03/2018 TOSHIA H Primary Insurance:[facility] PEDRO LUIS Williamson Kulwinder [id number] [facility]: [facility] 3928-33-38UWFLawton, [place] Number: Repository [address]Dii: 330 [id number] [phone] () Date:6228-49-54VA [address] [address]FXQPFOLDR, [place] [address]DP: CHECK WEBSITE 04/03/2018 Secondary NOT GIVENUNK [place] Insurance:SELF PAY [facility] Number: Effective Repository Date:2018-04-03 03/30/2018 TOSHIA H Primary Insurance:[facility] PEDRO LUIS Williamson [place] [id number] [facility]DOB: [facility] 1341-98-33MQALawton, [place] Number: Repository [address]Wbr: 330 [id number] [phone] (HP) Date:6728-27-04XR [address] [address]LZUZSBSPN, [place] [address]WW: CHECK WEBSITE 03/30/2018 Secondary NOT GIVENUNK [place] Insurance:SELF PAY [facility] Number: Effective Repository Date:2018-03-13 03/27/2018 TOSHIA H Primary Insurance:[facility] PEDRO LUIS Williamson Kulwinder [id number] [facility]: [facility] 7389-20-19TIGLawton, [place] Number: Repository [address]Hbk: 330 [id number] [phone] (HP) Date:7609-81-84ID [address] [address]GSCJVCULP, [place] [address]YV: CHECK WEBSITE 03/27/2018 Secondary NOT GIVENUNK [place] Insurance:SELF PAY [facility] Number: Effective Repository Date:2018-03-13 03/22/2018 TOSHIA H Primary Insurance:[facility] Kulwinder [id number] [facility]OB: [facility] 1952-18-77TTKLawton, [place] Number: Repository [address]Vph: 330 [id number] [phone] (HP) Date:9666-56-12UY [address] [address]EYWISOGWV, [place] [address]NR: CHECK WEBSITE 03/22/2018 Secondary NOT GIVENUNK [place] Insurance:SELF PAY [facility] Number: Effective Repository Date:2018-03-20 03/14/2018 TOSHIA H Primary [facility] Kulwinder [id number] [facility]DOB: [facility] 4436-77-11NDXLawton, [place] Number: Repository 305[address]Kxi: 330 [id number] [phone] (HP) Date:5204-55-00NW [address] [address]PDVRYSYIA, [place] [address]EH: CHECK WEBSITE 03/14/2018 Secondary NOT GIVENUNK [place] Insurance:SELF PAY [facility] Number: Effective Repository Date:2018-03-13 03/13/2018 TOSHIA H Primary Insurance:[facility] Kulwinder [id number] [facility]DOB: [facility] 0817-33-90LMBLawton, [place] Number: Repository 78673Lyx: 330 [id number] [phone] (HP) Date:7592-05-16WR [address] [address]ADAXFZDJS, [place] [address]TM: CHECK WEBSITE 03/13/2018 Secondary NOT GIVENUNK [place] Insurance:SELF PAY [facility] Number: Effective Repository Date:2018-02-16 02/28/2018 TOSHIA H Primary Insurance:[facility] DAYANDATH C Kulwinder [id number] [facility]DOB: [facility] 4409-53-83ZZMLawton, [place] Number: Repository 28[address]Wjf: 330 [id number] [phone] (HP) Date:5961-60-67JJ [address]22ERSDFODNG, [place] [address]YI: CHECK WEBSITE 02/28/2018 Secondary NOT GIVENUNK [place] Insurance:SELF PAY [facility] Number: Effective Repository Date:2018-02-24 02/21/2018 TOSHIA H Primary Insurance:[facility] DAYANDATH C [place] [id number] [facility]: [facility] 6674-10-01JZELawton, [place] Number: Repository [address]Frd: 330 [id number] [phone] (HP) Date:1506-37-36GJ [address]6666NMJHCUKHG, [place] [address]AI: CHECK WEBSITE 02/21/2018 Secondary NOT GIVENUNK [place] Insurance:SELF PAY [facility] Number: Effective Repository Date:2018-02-20 02/10/2018 TOSHIA H Primary Insurance:[facility] DAYANDATH C Kulwinder [id number] [facility]: [facility] 4243-89-35FTLLawton, [place] Number: Repository [address]75Mjt: 330 [id number] [phone] (HP) Date:6489-55-68JX [address] [address]LQJVWJEYA, [place] [address]IY: CHECK WEBSITE 02/10/2018 Secondary NOT GIVENUNK [place] Insurance:SELF PAY [facility] Number: Effective Repository Date:2018-01-25 02/07/2018 TOSHIA H Primary Insurance:[facility] PEDRO LUIS Miramontes [id number] [facility]DOB: [facility] 9981-88-36TPBLawton, [place] Number: Repository 27369Zko: 330 [id number] [phone] (HP) Date:7831-40-75AV [address] [address]JDNKAENFL, [place] [address]TH: CHECK WEBSITE 02/07/2018 Secondary NOT GIVENUNK [place] Insurance:SELF PAY [facility] Number: Effective Repository Date:2018-02-07 02/07/2018 TOSHIA H Primary Insurance:[facility] PEDRO LUIS Miramontes [id number] [facility]DOB: [facility] 9698-28-06SWILawton, [place] Number: Repository 418[address]Fnv: 330 [id number] [phone] (HP) Date:5370-06-63XN [address] [address]DXKDVKYQE, [place] [address]RJ: CHECK WEBSITE 02/07/2018 Secondary NOT GIVENUNK [place] Insurance:SELF PAY [facility] Number: Effective Repository Date:2018-02-03 02/06/2018 TOSHIA H Primary Insurance:[facility] PEDRO LUIS Miramontes [id number] [facility]DOB: [facility] 4455-22-73QWYLawton, [place] Number: Repository 22636Mly: 330 [id number] [phone] (HP) Date:4109-76-96ZI [address] [address]GDZZAKTON, [place] [address]YH: CHECK WEBSITE 02/06/2018 Secondary NOT GIVENUNK [place] Insurance:SELF PAY [facility] Number: Effective Repository Date:2018-01-18 01/31/2018 TOSHIA H Primary Insurance:[facility] PEDRO LUIS Miramontes [id number] [facility]DOB: [facility] 0143-31-36NMBLawton, [place] Number: Repository 78181Jym: 330 [id number] [phone] (HP) Date:4673-72-86QP [address] [address]LFDXZOUNV, [place] [address]RT: CHECK WEBSITE 01/31/2018 Secondary NOT GIVENUNK [place] Insurance:SELF PAY [facility] Number: Effective Repository Date:2018-01-30 01/24/2018 TOSHIA H Primary Insurance:[facility] PEDRO LUIS Williamson [place] [id number] [facility]DOB: [facility] 3546-87-46HGALawton, [place] Number: Repository [address]Vjk: 330 [id number] [phone] (HP) Date:6000-77-01OT [address] [address]INTPCVTZU, [place] [address]TT: CHECK WEBSITE 01/24/2018 Secondary NOT GIVENUNK [place] Insurance:SELF PAY [facility] Number: Effective Repository Date:2018-01-24 01/24/2018 TOSHIA H Primary Insurance:[facility] PEDRO LUIS Williamson [place] [id number] [facility]: [facility] 1047-05-73CHHLawton, [place] Number: Repository [address]Rmz: 330 [id number] [phone] (HP) Date:4089-18-14FP [address] [address]FKVHDWEYJ, [place] [address]XQ: CHECK WEBSITE 01/24/2018 Secondary NOT GIVENUNK [place] Insurance:SELF PAY [facility] Number: Effective Repository Date:2018-01-18 01/20/2018 TOSHIA H Primary Insurance:[facility] PEDRO LUIS Williamson [place] [id number] [facility]DOB: [facility] 0332-53-24KBKLawton, [place] Number: Repository 43565Uuu: 330 [id number] [phone]) Date:0541-44-90QP [address] [address]RLQHUFWDM, [place] [address]LR: CHECK WEBSITE 01/20/2018 Secondary NOT GIVENUNK [place] Insurance:SELF PAY [facility] Number: Effective Repository Date:2018-01-11 01/17/2018 TOSHIA H Primary Insurance:[facility] PEDRO LUIS Williamson [place] [id number] [facility]DOB: [facility] 7935-76-51NVWLawton, [place] Number: Repository 50851Fno: 330 [id number] [phone]) Date:9192-75-37IZ [address] [address]NWQCJTCYX, [place] [address]CB: CHECK WEBSITE 01/17/2018 Secondary NOT GIVENUNK K[place] Insurance:SELF PAY [facility] Number: Effective Repository Date:2018-01-11 01/06/2018 TOSHIA H Primary Insurance:[facility] DAYANDATH C [place] [id number] [facility]: [facility] 7668-45-14IAWLawton, [place] Number: Repository 30932Kbs: 330 [id number] [phone]) Date:2807-21-82OM [address] [address]ZAEPXLALG, [place] [address]VZ: CHECK WEBSITE 01/06/2018 Secondary NOT GIVENUNK [place] Insurance:SELF PAY [facility] Number: Effective Repository Date:2018-01-06 01/03/2018 TOSHIA H Primary Insurance:[facility] LANEYTH C Kulwinder [id number] [facility]: [facility] 9449-34-25QLILawton, [place] Number: Repository 97754Ucl: 330 [id number] [phone] (HP) Date:5524-92-57UR [address] [address]ZIHMVWJFS, [place] [address]TI: CHECK WEBSITE 01/03/2018 Secondary NOT GIVENUNK [place] Insurance:SELF PAY [facility] Number: Effective Repository Date:2018-01-02 01/03/2018 TOSHIA H Primary Insurance:[facility] PEDRO LUIS Williamson [place] [id number] [facility]: [facility] 6878-09-89JRXLawton, [place] Number: Repository 326[address]Esz: 330 [id number] [phone]) Date:2550-01-84AN [address] [address]84ZYMOYFJTA, [place] [address]GS: CHECK WEBSITE 01/03/2018 Secondary NOT GIVENUNK [place] Insurance:SELF PAY [facility] Number: Effective Repository Date:2017-12-20 12/20/2017 TOSHIA H Primary Insurance:[facility] PEDRO LUIS Miramontes [id number] S [facility]: [facility] 3875-09-68SNLSCL [facility] [place] Number: Repository [address]Uns: 330 [id number] [phone] (HP) Date:6007-79-78PR [address] [address]EAPCHWLPS, [place] [address]DH: CHECK WEBSITE 12/20/2017 Secondary NOT GIVENUNK [place] Insurance:SELF PAY [facility] Number: Effective Repository Date:2017-12-16 12/13/2017 TOSHIA H Primary Insurance:[facility] PEDRO LUIS Miramontes [id number] S [facility]: [facility] 0261-09-38CMYRangely District Hospital, [place] Number: Repository [address]Eno: 330 [id number] [phone] () Date:3592-24-73JS [address] [address]KQNRAMBMS, [place] [address]TL: CHECK WEBSITE 12/13/2017 Secondary NOT GIVENUNK [place] Insurance:SELF PAY [facility] Number: Effective Repository Date:2017-12-07 12/09/2017 TOSHIA H Primary NOT GIVENUNK Kulwinder [id number] S Insurance:SELF PAY [facility] [place] Number: Effective Repository 79976Kus: 330) Date:2017-12-09 [phone] (HP) 12/09/2017 TOSHIA H Primary Insurance:[facility] PEDRO LUIS Miramontes [id number] S [facility]: [facility] 9355-02-22QCYSCL [facility] [place] Number: Repository [address]31Api: 330 [id number] [phone] (HP) Date:9779-20-46JO [address] [address]UFDZGWJSA, [place] [address]PD: CHECK WEBSITE 12/09/2017 Secondary NOT GIVENUNK [place] Insurance:SELF PAY [facility] Number: Effective Repository Date:2017-11-17 12/08/2017 TOSHIA H Primary Insurance:[facility] MEREDAPATTI [id number] [facility]: [facility] 8290-87-85FTHLovelaceville, [place] Number: Repository 51858Xfd: 330 [id number] [phone] (HP) Date:8330-39-37EI [address] [address]HJVFFRVST, [place] [address]VX: CHECK WEBSITE 12/08/2017 Secondary NOT GIVENUNK [place] Insurance:SELF PAY [facility] Number: Effective Repository Date:2017-12-05 12/06/2017 TOSHIA H Primary Insurance:[facility] PEDRO LUIS [id number] S [facility]: [facility] 9767-37-40CGDSCL [facility] [place] Number: Repository [address]9833Xpf: 330 [id number] [phone] (HP) Date:5721-96-72GZ [address]23NYFYPPQYC, [place] [address]CZ: CHECK WEBSITE 12/06/2017 Secondary NOT GIVENUNK [place] Insurance:SELF PAY [facility] Number: Effective Repository Date:2017-12-05 11/29/2017 TOSHIA H Primary Insurance:[facility] PEDRO LUIS [id number] S [facility]: [facility] 7552-06-36DMVLovelaceville, [place] Number: Repository 49449Lwq: 330 [id number] [phone] (HP) Date:9855-44-42FB [address] 9[address]46ZSVRAULGW, [place] [address]FU: CHECK WEBSITE 11/29/2017 Secondary NOT GIVENUNK [place] Insurance:SELF PAY [facility] Number: Effective Repository Date:2017-11-08 11/22/2017 TOSHIA H Primary Insurance:[facility] PEDRO LUIS [id number] S [facility]: [facility] 3991-85-36NNMLovelaceville, [place] Number: Repository 94983Kdz: 330 [id number] [phone] (HP) Date:0775-99-55BD [address] [address]SATDCQGEM, [place] [address]FN: CHECK WEBSITE 11/22/2017 Secondary NOT GIVENUNK [place] Insurance:SELF PAY [facility] Number: Effective Repository Date:2017-11-08 11/16/2017 TOSHIA H Primary Insurance:[facility] PEDRO LUIS Miramontes [id number] S [facility]: [facility] 7574-87-17GOWLovelaceville, [place] Number: Repository 86113Ffm: 330 [id number] [phone] (HP) Date:2098-62-55ML [address] [address]JEXQGTNPI, [place] [address]GG: CHECK WEBSITE 11/16/2017 Secondary NOT GIVENUNK [place] Insurance:SELF PAY [facility] Number: Effective Repository Date:2017-11-16 11/14/2017 DAYANLISSETTEPATTI [place] Primary Insurance:[facility] PEDRO LUIS Williamson Kulwinder [id number] S [facility]: [facility] 1274-20-62FOJKaiser Foundation Hospital [facility], Number: Repository [place] [address]Dpo: [id number] Date:2902-76-79VG [address] () [address]PIWJYKMEI, [place] [address]UB: CHECK WEBSITE 11/14/2017 Secondary NOT GIVENUNK [place] Insurance:SELF PAY [facility] Number: Effective Repository Date:2017-10-31 11/09/2017 TOSHIA H Primary Insurance:[facility] PEDRO LUIS Miramontes [id number] S [facility]: [facility] 5504-14-62OIKLovelaceville, [place] Number: Repository 239[address]Pby: 330 [id number] [phone] (HP) Date:6171-43-61ZX [address] [address]HGHXVDSWW, [place] [address]OS: CHECK WEBSITE 11/09/2017 Secondary NOT GIVENUNK [place] Insurance:SELF PAY [facility] Number: Effective Repository Date:2017-11-09 11/08/2017 TOSHIA H Primary Insurance:[facility] PEDRO LUIS Miramontes [id number] S [facility]: [facility] 5002-50-11LFLLovelaceville, [place] Number: Repository [address]Fbd: 330 [id number] [phone] (HP) Date:5167-92-99ON [address] [address]JFMARDPTF, [place] [address]VB: CHECK WEBSITE 11/08/2017 Secondary NOT GIVENUNK [place] Insurance:SELF PAY [facility] Number: Effective Repository Date:2017-11-07 11/03/2017 TOSHIA H Primary Insurance:[facility] LANEY Clay [place] [id number] S [facility]: [facility] 0907-67-48GROSCL [facility] [place] Number: Repository 15194Ykc: 330 [id number] [phone] (HP) Date:0862-20-53DE [address] [address]EWPJJDHCP, [place] [address]DU: CHECK WEBSITE 11/03/2017 Secondary NOT GIVENUNK [place] Insurance:SELF PAY [facility] Number: Effective Repository Date:2017-11-03 11/01/2017 TOSHIA H Primary Insurance:[facility]YB[facility] [place] [id number] S [facility]: [facility] 9367-39-35NOPSCL [facility] [place] Number: Repository [address]Vzj: 330 [id number] [phone] () Date:1746-12-96SB [address] [address]VLXPTDJIS, [place] [address]BG: CHECK WEBSITE 11/01/2017 Secondary NOT GIVENUNK [place] Insurance:SELF PAY [facility] Number: Effective Repository Date:2017-10-28 10/16/2017 TOSHIA H Primary Insurance:[facility] LANEY Clay [place] [id number] S [facility]: [facility] 3067-00-91UBSSCL [facility] [place] Number: Repository [address]Gpd: 330 [id number] [phone] (HP) Date:7495-07-33US [address] [address]41ZDIWCENCZ, [place] [address]CQ: CHECK WEBSITE 10/16/2017 Secondary NOT GIVENUNK [place] Insurance:SELF PAY [facility] Number: Effective Repository Date:2017-10-14 10/10/2017 TOSHIA H Primary Insurance:[facility] PDERO LUIS Miramontes [id number] S [facility]: [facility] 5488-69-76MMFLovelaceville, [place] Number: Repository 35452Szi: 330 [id number] [phone] (HP) Date:2374-18-38YU [address] [address]KGBXOHEMY, [place] [address]NY: CHECK WEBSITE 10/10/2017 Secondary NOT GIVENUNK [place] Insurance:SELF PAY [facility] Number: Effective Repository Date:2017-09-13 10/10/2017 PEDRO LUIS Williamson Primary Insurance:[facility] PEDRO LUIS Arenasoster [id number] S [facility]: [facility] 0629-97-58WHCKaiser Foundation [facility], Number: Repository [place] [address]Xve: [id number] Date:0369-17-58FX [address] () 77239PTFQRHIKK, [place] [address]CR: CHECK WEBSITE 10/10/2017 Secondary NOT GIVENUNK Kulw[place] Insurance:SELF PAY [facility] Number: Effective Repository Date:2017-10-10 10/07/2017 TOSHIA H Primary Insurance:[facility] PEDRO LUIS Miramontes [id number] S [facility]: [facility] 9975-50-87UHLLovelaceville, [place] Number: Repository [address]Gef: 330 [id number] [phone] (HP) Date:3374-74-74WP [address] [address]NTNNOVFRB, [place] [address]QD: CHECK WEBSITE 10/07/2017 Secondary NOT GIVENUNK [place] Insurance:SELF PAY [facility] Number: Effective Repository Date:2017-10-04 10/05/2017 TOSHIA H Primary Insurance:[facility] PEDRO LUIS Miramontes [id number] S [facility]: [facility] 8011-61-78QJWLovelaceville, [place] Number: Repository 83542Yad: 330 [id number] [phone] (HP) Date:8170-14-44HN [address] 7[address]VKWGTIATJ, [place] [address]RS: CHECK WEBSITE 10/05/2017 Secondary NOT GIVENUNK [place] Insurance:SELF PAY [facility] Number: Effective Repository Date:2017-09-13 10/04/2017 TOSHIA H Primary Insurance:[facility] PEDRO LUIS Miramontes [id number] S [facility]: [facility] APPLE LAC VIEUXJames J. Peters [facility] 7079-84-46YSKLovelaceville, [place] Number: Repository [address]Ekj: 330 [id number] [phone] (HP) Date:6844-81-18DQ [address] [address]146ZWAHKJTKG, [place] [address]ZN: CHECK WEBSITE 10/04/2017 Secondary NOT GIVENUNK [place] Insurance:SELF PAY [facility] Number: Effective Repository Date:2017-09-15 09/20/2017 Toshia H Primary Insurance:[facility] PEDRO LUIS Miramontes [id number] S [facility]: [facility] 0524-93-03YQLMontgomery, [place] Number: Repository 50896Yam: 330 [id number] [phone] () Date:7567-15-57WF [address] [address]NWUBLBPXL, [place] [address]EM: CHECK WEBSITE 09/20/2017 Secondary NOT GIVENUNK [place] Insurance:SELF PAY [facility] Number: Effective Repository Date:2017-09-09 09/13/2017 Toshia H Primary Insurance:[facility] PEDRO LUIS [id number] S [facility]ENTERD[facility]: [facility] 7247-21-95WULMontgomery, [place] Number: Repository [id number]: 330 [id number] [phone] (HP) Date:9737-12-07LE [address] [address], [place] [address]TP: CHECK WEBSITE 09/13/2017 Secondary NOT GIVENUNK [place] Insurance:SELF PAY [facility] Number: Effective Repository Date:2017-08-16 09/07/2017 Toshia H Primary Insurance:[facility] PEDRO LUIS [id number] [facility]: [facility] [id number], [place] Number: Repository [id number]: 330 [id number] [phone] (HP) Date:5056-65-04XO [address] [address], [place] [address]FJ: CHECK WEBSITE 09/07/2017 Secondary NOT GIVENUNK [place] Insurance:SELF PAY [facility] Number: Effective Repository Date:2017-08-30 09/07/2017 Toshia H Primary Insurance:[facility] [place] [id number] [facility]: [facility] [id number], [place] Number: Repository [id number]: 330 [id number] [phone] (HP) Date:5714-83-88HX [address] [address], [place] [address]IV: CHECK WEBSITE 09/07/2017 Secondary NOT GIVENUNK [place] Insurance:SELF PAY [facility] Number: Effective Repository Date:2017-09-07 08/29/2017 MEREDATH C Primary Insurance:[facility] [place] [id number] [facility]: [facility] [id number], Number: [place]ository [place] [id number]: [id number] Date:9601-65-13VL [address] () [address]HCCSVBMHQ, [place] [address]VC: CHECK WEBSITE 08/29/2017 Secondary NOT GIVENUNK [place] Insurance:SELF PAY [facility] Number: Effective Repository Date:2017-08-29 08/29/2017 Toshia H Primary [facility] [place] [id number] [facility]: [facility] [id number] Number: Repository [address]Sos: 330 [id number] [phone] (HP) Date:1625-55-75XX [address] [address]RECFLDCTQ, [place] [address]GS: CHECK WEBSITE 08/29/2017 Secondary NOT GIVENUNK [place] Insurance:SELF PAY [facility] Number: Effective Repository Date:2017-08-25 08/23/2017 Toshia H Primary Insurance:[facility] PEDRO LUIS [place] [id number] [facility] KENNEDYDOB: [facility] [id number] [place] Number: Repository [address]Rdt: 330 [id number] [phone] () Date:9100-17-35DH [address] [address]JUOMDLPUZ, [place] [address]HV: CHECK WEBSITE 08/23/2017 Secondary NOT GIVENUNK [place] Insurance:SELF PAY [facility] Number: Effective Repository Date:2017-08-16 08/16/2017 Toshia H Primary Insurance:[facility] PEDRO LUIS [place] [id number] [facility] KENNEDYDOB: [facility] [id number] [place] Number: Repository [address]Ifh: 330 [id number] [phone] (HP) Date:5989-75-02XG [address] [address]MURMRUWAG, [place] [address]FU: CHECK WEBSITE 08/16/2017 Secondary NOT GIVENUNK [place] Insurance:SELF PAY [facility] Number: Effective Repository Date:2017-08-02 08/16/2017 Toshia H Primary Insurance:[facility] PEDRO LUIS Miramontes [id number] [facility] KENNEDYDOB: [facility] [id number] [facility] [place] Number: Repository [address]Xfk: 330 [id number] [phone] (HP) Date:9356-14-06OR [address] [address]UHRXKWJBR, [place] [address]JU: CHECK WEBSITE 08/16/2017 Secondary NOT GIVENUNK [place] Insurance:SELF PAY [facility] Number: Effective Repository Date:2017-08-02 08/02/2017 Toshia H Primary Insurance:[facility] PEDRO LUIS Mir[place]ontes [id number] [facility] KENNEDYDOB: [facility] [id number] [facility] [place] Number: Repository [address]Qxg: 330 [id number] [phone] (HP) Date:7546-55-29ZX [address] [address]DHJCPELZY, [place] [address]OJ: CHECK WEBSITE 08/02/2017 Secondary NOT GIVENUNK [place] Insurance:SELF PAY [facility] Number: Effective Repository Date:2017-07-18 08/02/2017 Toshia H Primary Insurance:[facility] PEDRO LUIS Miramontes [id number] [facility]: [facility] 7945-44-42DZGForest [place] Number: Repository [address]Bvr: 330 [id number] [phone] () Date:1257-98-49YM [address] [address]WVXUJTADS, [place] [address]GC: CHECK WEBSITE 08/02/2017 Secondary NOT GIVENUNK [place] Insurance:SELF PAY [facility] Number: Effective Repository Date:2017-07-28 07/12/2017 Toshia H Primary Insurance:[facility] PEDRO LUIS Mir[place]es [id number] [facility]: [facility] [id number] [place] Number: Repository [address]Rqx: 330 [id number] [phone] () Date:9366-41-21VL [address] [address]PXAKDQBTY, [place] [address]EF: CHECK WEBSITE 07/12/2017 Secondary NOT GIVENUNK [place] Insurance:SELF PAY [facility] Number: Effective Repository Date:2017-06-16 06/21/2017 Toshia H Primary Insurance:[facility] PEDRO LUIS [id number] [facility]: [facility] 0725-16-54LYZForest [place] Number: Repository [address]Qmd: 330 [id number] [phone] (HP) Date:0261-48-71XW [address] [address]ITEFSXLTK, [place] [address]MC: CHECK WEBSITE 06/21/2017 Secondary NOT GIVENUNK [place] Insurance:SELF PAY [facility] Number: Effective Repository Date:2017-06-21 06/20/2017 Toshia H Primary Insurance:[facility] PEDRO LUIS [id number] [facility]: [facility] 9077-31-14GSTForest [place], [place] Number: Repository [address]Pwb: 330 [id number] [phone] (HP) Date:5606-20-62VR [address] [address]CBMTENOLM, [place] [address]OT: CHECK WEBSITE 06/20/2017 Secondary NOT GIVENUNK [place] Insurance:SELF PAY [facility] Number: Effective Repository Date:2017-05-10 06/09/2017 Toshia H Primary Insurance:[facility] PEDRO LUIS [id number] [facility]: [facility] 8946-22-62TPOForest Grove, [place] Number: Repository [address]Jrz: 330 [id number] [phone] (HP) Date:1871-80-66HY [address] [address]UFLPCXTZJ, [place] [address]QO: CHECK WEBSITE 06/09/2017 Secondary NOT GIVENUNK [place] Insurance:SELF PAY [facility] Number: Effective Repository Date:2017-05-17 06/01/2017 Toshia H Primary Insurance:[facility] PEDRO LUIS [id number] [facility]: [facility] [id number] [place], [place] Number: Repository [address]Jqt: 330 [id number] [phone] (HP) Date:7440-41-88SY [address] [address]UQJGUGNPQ, [place] [address]XO: CHECK WEBSITE 06/01/2017 Secondary NOT GIVENUNK [place] Insurance:SELF PAY [facility] Number: Effective Repository Date:2017-05-20
== END ==
PROVIDERS: Family Provider Family Medicine; PCP Family Medicine; Referring Provider Internal Medicine Hematology & Oncology; Visit Provider Internal Medicine Hematology & Oncology
DX: C50.411 Malignant neoplasm of upper-outer quadrant of right female breast (principal); Z17.1 Estrogen receptor negative status [ER-]; C79.51 Secondary malignant neoplasm of bone
CPT/HCPCS: 72072

== ENCOUNTER 2018-04-04 07:28 | Outpatient (RCR) | payer OTHER, SELFPAY ==
[2018-03-14 09:24] VITALS: BMI 30.2
[2018-03-21 13:40] LABS: Absolute Lymphocyte Count 1.53 X10^3/ul (0.83-4.51); Absolute Neutrophil Count 1.8 X10^3/uL (2.0-7.7); Basophil# 0.01 X10^3/uL; Basophil% 0.3 % (0-1); Eosinophil# 0.01 X10^3/uL; Eosinophils% 0.3 % (0-5); Hematocrit 29.6 % (37-47); Hemoglobin 9.7 g/dl (12.0-15.0); Lymphocyte # 1.53 X10^3/ul (4.0); Lymphocyte % 42.4 % (19-41); Mean Corp Hgb Conc 32.8 g/gl (32-36); Mean Corpuscular Volume 94.6 fL (81-99); Mean Platelet Vol. 8.9 fl (6.2-12.0); Monocyte# 0.27 X10^3/uL; Monocyte% 7.5 % (0-10); Neutrophil # 1.78 X10^3/uL (2.7-7.7); Neutrophil % 49.2 % (47-70); Platelet Count 277 K/mm3 (150-450); RBC Distribution Width CV 11.8 % (11.6-14.6); RBC Distribution Width SD 38.8 fl (35.1-43.9); Red Blood Count 3.13 M/mm3 (4.2-5.4); White Blood Count 3.6 K/mm3 (4.4-11.0)
[2018-03-21 13:43] LABS: POSITIVE COUNT NO; POSITIVE DIFFERENTIAL NO; POSITIVE MORPHOLOGY NO
[2018-03-21 14:11] LABS: AST(SGOT) 10 U/L (15-37); Alanine Aminotransfer ALT/SGPT 18 U/L (13-56); Albumin, Serum 2.9 g/dL (3.2-5.0); Alkaline Phosphatase 109 U/L (45-117); Anion Gap 9 (5-15); BUN 27 mg/dL (7-18); BUN/Creat Ratio 30.6 RATIO (10-20); Bilirubin, Direct 0.08 mg/dL (0.00-0.30); Calcium,Total 8.1 mg/dL (8.5-10.1); Chloride 99 mmol/L (98-107); Creatinine, Serum 0.88 mg/dL (0.55-1.02); EST Glomerular Filtration Rate 73 mL/min (>60); Est Glom Filt Rate - Afr Amer 88 mL/min (>60); Globulin 4.7 g/dL (2.2-4.2); Glucose 433 mg/dL (74-106); Potassium 4.1 mmol/L (3.5-5.1); Protein, Total 7.6 g/dL (6.4-8.2); Sodium Level 136 mmol/L (136-145)
[2018-04-04 08:07] LABS: Absolute Lymphocyte Count 1.45 X10^3/ul (0.83-4.51); Absolute Neutrophil Count 4.5 X10^3/uL (2.0-7.7); Basophil# 0.02 X10^3/uL; Basophil% 0.3 % (0-1); Eosinophil# 0.05 X10^3/uL; Eosinophils% 0.8 % (0-5); Hematocrit 31.2 % (37-47); Hemoglobin 10.1 g/dl (12.0-15.0); Lymphocyte # 1.45 X10^3/ul (4.0); Lymphocyte % 22.2 % (19-41); Mean Corp Hgb Conc 32.4 g/gl (32-36); Mean Corpuscular Volume 95.7 fL (81-99); Mean Platelet Vol. 9.5 fl (6.2-12.0); Monocyte# 0.47 X10^3/uL; Monocyte% 7.2 % (0-10); Neutrophil # 4.54 X10^3/uL (2.7-7.7); Neutrophil % 69.3 % (47-70); Platelet Count 310 K/mm3 (150-450); RBC Distribution Width CV 12.2 % (11.6-14.6); RBC Distribution Width SD 41.1 fl (35.1-43.9); Red Blood Count 3.26 M/mm3 (4.2-5.4); White Blood Count 6.5 K/mm3 (4.4-11.0)
[2018-04-04 08:13] LABS: POSITIVE COUNT NO; POSITIVE DIFFERENTIAL NO; POSITIVE MORPHOLOGY NO
[2018-04-04 08:32] LABS: AST(SGOT) 11 U/L (15-37); Alanine Aminotransfer ALT/SGPT 13 U/L (13-56); Albumin, Serum 2.7 g/dL (3.2-5.0); Alkaline Phosphatase 123 U/L (45-117); Anion Gap 7 (5-15); BUN 29 mg/dL (7-18); BUN/Creat Ratio 32.3 RATIO (10-20); Bilirubin, Direct 0.06 mg/dL (0.00-0.30); Calcium,Total 8.6 mg/dL (8.5-10.1); Chloride 97 mmol/L (98-107); EST Glomerular Filtration Rate 71 mL/min (>60); Est Glom Filt Rate - Afr Amer 86 mL/min (>60); Globulin 5.1 g/dL (2.2-4.2); Glucose 368 mg/dL (74-106); Potassium 4.7 mmol/L (3.5-5.1); Protein, Total 7.8 g/dL (6.4-8.2); Sodium Level 133 mmol/L (136-145)
== END 2018-04-04 08:00 | disposition home or self-care (01) ==
LOC: LAB 07:28
PROVIDERS: Family Provider Family Medicine; PCP Family Medicine; Referring Provider Internal Medicine Hematology & Oncology; Visit Provider Internal Medicine Hematology & Oncology
DX: C50.411 Malignant neoplasm of upper-outer quadrant of right female breast (principal); C78.02 Secondary malignant neoplasm of left lung; Z17.1 Estrogen receptor negative status [ER-]
CPT/HCPCS: 36415; 80048; 80076; 85025

== ENCOUNTER → 2018-04-19 10:24 | Outpatient (CLI) | payer OTHER, SELFPAY ==
[2018-03-22 10:06] VITALS: BMI 30.5
[2018-04-17 14:19] VITALS: BMI 30.2
[2018-04-19 10:42] VITALS: BP 143/70; PULSE 98; RESP 16; TEMP 36.7; O2SAT 100; BMI 29.7
[2018-04-19] MEDS: 0.9% Normal Saline 1,000 ML 500 ML IV (10:57)
[2018-04-19] MEDS: Metoclopramide 10 MG/2 ML Vial IV (10:57)
== END ==
PROVIDERS: Family Provider Family Medicine; PCP Family Medicine; Referring Provider Internal Medicine Hematology & Oncology; Visit Provider Internal Medicine Hematology & Oncology
DX: Z51.11 Encounter for antineoplastic chemotherapy (principal); C50.411 Malignant neoplasm of upper-outer quadrant of right female breast
CPT/HCPCS: 96361; 96367; 96375; 96413; J7030; J7040; A4216; J2405; J3490; J9201

== ENCOUNTER → 2018-04-26 09:50 | Outpatient (CLI) | payer OTHER, SELFPAY ==
[2018-03-22 10:06] VITALS: BMI 30.5
[2018-04-19 10:42] VITALS: BMI 29.7
[2018-04-26 09:56] VITALS: BP 167/76; PULSE 99; RESP 16; TEMP 36.1; O2SAT 99; BMI 30.2
[2018-04-26] MEDS: 0.9% Normal Saline 1,000 ML 500 ML IV (10:13)
[2018-04-26] MEDS: Metoclopramide 10 MG/2 ML Vial IV (10:16)
== END ==
PROVIDERS: Family Provider Family Medicine; PCP Family Medicine; Referring Provider Internal Medicine Hematology & Oncology; Visit Provider Internal Medicine Hematology & Oncology
DX: Z51.11 Encounter for antineoplastic chemotherapy (principal); C50.411 Malignant neoplasm of upper-outer quadrant of right female breast
CPT/HCPCS: 96361; 96367; 96376; 96413; J3489; J7030; J7040; A4216; J2405; J3490; J9201

== ENCOUNTER → 2018-05-09 09:51 | Outpatient (CLI) | payer OTHER, SELFPAY ==
[2018-04-26 09:56] VITALS: BMI 30.2
[2018-05-09 10:23] VITALS: BP 163/59; PULSE 98; RESP 18; TEMP 37.3; O2SAT 100; BMI 30.2
[2018-05-09] MEDS: Metoclopramide 10 MG/2 ML Vial IV (11:28)
--- OUTSIDE RECORDS SUMMARY | 2018-07-11 11:41 | XMS RPT_ITS ---
:1970 Author Organization [place] Support Name Relationship Address Phone RICCONAZ BUENOCA Unavailable [address] + [place] [address] TOSHIA WILCOX Unavailable [address] + [place] [address] [facility] Unavailable [address] + [place] [address] RICCO, FADUMO Unavailable [address] + [place] [address] SEAMUS WILCOXE Unavailable [address] + [place] [address] WC Unavailable [address] + [place] [address] RICCO, FADUMO Unavailable [address] + [place] [address] KATHLEEN WILCOXLIE Unavailable [address] + [place] [address] WC Unavailable [address] + [place] [address] RICCO, FADUMO Unavailable [address] + [place] [address] KATHLEEN WILCOXLIE Unavailable [address] + [place] [address] WC Unavailable [address] + [place] [address] RICCO FADUMO Unavailable [address] + [place] [address] KATHLEEN WILCOXLIE Unavailable [address] + [place] [address] WC Unavailable [address] + [place] [address] RICCO, FADUMO Unavailable [address] + [place] [address] KATHLEEN WILCOXLIE Unavailable [address] + [place] [address] [facility] Unavailable [address] + [place] [address] RICCO, FADUMO Unavailable [address] + [place] [address] MARK TOSHIA Unavailable [address] + [place] [address] WC Unavailable [address] + [place] [address] RICCO, FADUMO Unavailable [address] + [place] [address] MARK TOSHIA Unavailable [address] + [place] [address] [facility] Unavailable [address] + [place] [address] RICCO, FADUMO Unavailable [address] + [place] [address] KATHLEEN WILCOXLIE Unavailable [address] + [place] [address] [facility] Unavailable [address] + [place] [address] RICCO, FADUMO Unavailable [address] + [place] [address] KATHLEEN WILCOXLIE Unavailable [address] + [place] [address] [facility] Unavailable [address] + [place] [address] RICCO, FADUMO Unavailable [address] + [place] [address] MARK TOSHIA Unavailable [address] + [place] [address] [facility] Unavailable [address] + [place] [address] RICCO, FADUMO Unavailable [address] + [place] [address] KATHLEEN WILCOXLIE Unavailable [address] + [place] [address] [facility] Unavailable [address] + [place] [address] RICCO, FADUMO Unavailable [address] + [place] [address] KATHLEEN WILCOXLIE Unavailable [address] + [place] [address] WC Unavailable [address] + [place] [address] RICCO, FADUMO Unavailable [address] + [place] [address] TOSHIA WILCOX Unavailable [address] + [place] [address] [facility] Unavailable [address] + [place] [address] RICCO, FADUMO Unavailable [address] + [place] [address] KATHLEEN WILCOXLIE Unavailable [address] + [place] [address] [facility] Unavailable [address] + [place] [address] RICCO, FADUMO Unavailable [address] + [place] [address] TOSHIA WILCOX Unavailable [address] + [place] [address] WC Unavailable [address] + [place] [address] RICCO, FADUMO Unavailable [address] + [place] [address] TOSHIA WILCOX Unavailable [address] + [place] [address] [facility] Unavailable [address] + [place] [address] RICCO, FADUMO Unavailable [address] + [place] [address] MARK, TOSHIA Unavailable [address] + [place] [address] [facility] Unavailable [address] + [place] [address] RICCO, FADUMO Unavailable [address] + [place] [address] MARK TOSHIA Unavailable [address] + [place] [address] [facility] Unavailable [address] + [place] [address] RICCO, FADUMO Unavailable [address] + [place] [address] KATHLEEN WILCOXLIE Unavailable [address] + [place] [address] [facility] Unavailable [address] + [place] [address] RICCO, FADUMO Unavailable [address] + [place] [address] MARK TOSHIA Unavailable [address] + [place] [address] [facility] Unavailable [address] + [place] [address] RICCO, FADUMO Unavailable [address] + [place] [address] KATHLEEN WILCOXLIE Unavailable [address] [place] [address] + [place] [address] [facility] Unavailable [address] + [place] [address] RICCO, FADUMO Unavailable [address] + [place] [address] KATHLEEN WILCOXLIE Unavailable [address] [place] [address] + [place] [address] [facility] Unavailable [address] + [place] [address] RICCO, FADUMO Unavailable [address] + [place] [address] KATHLEEN WILCOXLIE Unavailable [address] [place] [address] + [place] [address] [facility] Unavailable [address] + [place] [address] RICCO FADUMO Unavailable [address] + [place] [address] TOSHIA WILCOX Unavailable [address] [place] [address] + [place] [address] [facility] Unavailable [address] + [place] [address] RICCO FADUMO Unavailable [address] + [place] [address] TOSHIA WILCOX Unavailable [address] [place] [address] + [place] [address] [facility] Unavailable [address] + [place] [address] RICCO FADUMO Unavailable [address] + [place] [address] TOSHIA WILCOX Unavailable [address] [place] [address] + [place] [address] [facility] Unavailable [address] + [place] [address] RICCO FADUMO Unavailable [address] + [place] [address] TOSHIA WILCOX Unavailable [address] [place] [address] + [place] [address] [facility] Unavailable [address] + [place] [address] RICCO FADUMO Unavailable [address] + [place] [address] TOSHIA WILCOX Unavailable [address] [place] [address] + [place] [address] [facility] Unavailable [address] + [place] [address] RICCO FADUMO Unavailable [address] + [place] [address] TOSHIA WILCOX Unavailable [address] [place] [address] + [place] [address] [facility] Unavailable [address] + [place] [address] RICCO FADUMO Unavailable [address] + [place] [address] TOSHIA WILCOX Unavailable [address] [place] [address] + [place] [address] [facility] Unavailable [address] + [place] [address] RICCO, FADUMO Unavailable [address] + [place] [address] TOSHIA WILCOX Unavailable [address] [place] [address] + [place] [address] WC Unavailable [address] + [place] [address] RICCO FADUMO Unavailable [address] + [place] [address] TOSHIA WILCOX Unavailable [address] [place] [address] + [place] [address] WC Unavailable [address] + [place] [address] RICCO FADUMO Unavailable [address] + [place] [address] TOSHIA WILCOX Unavailable [address] [place] [address] + [place] [address] WC Unavailable [address] + [place] [address] RICCO FADUMO Unavailable [address] + [place] [address] TOSHIA WILCOX Unavailable [address] [place] [address] + [place] [address] [facility] Unavailable [address] + [place] [address] RICCO FADUMO Unavailable [address] + [place] [address] TOSHIA WILCOX Unavailable [address] [place] [address] + [place] [address] [facility] Unavailable [address] + [place] [address] RICCO, FADUMO Unavailable [address] + [place] [address] KATHLEEN WILCOXLIE Unavailable [address] [place] [address] + [place] [address] [facility] Unavailable [address] + [place] [address] RICCO, FADUMO Unavailable [address] + [place] [address] KATHLEEN WILCOXLIE Unavailable [address] [place] [address] + [place] [address] [facility] Unavailable [address] + [place] [address] RICCO, FADUMO Unavailable [address] + [place] [address] MARK TOSHIA Unavailable [address] [place] [address] + [place] [address] [facility] Unavailable [address] + [place] [address] RICCO, FADUMO Unavailable [address] + [place] [address] SEAMUS WILCOXE Unavailable [address] [place] [address] + [place] [address] [facility] Unavailable [address] + [place] [address] RICCO, FADUMO Unavailable [address] + [place] [address] KATHLEEN WILCOXLIE Unavailable [address] [place] [address] + [place] [address] [facility] Unavailable [address] + [place] [address] RICCO, FADUMO Unavailable [address] + [place] [address] KATHLEEN WILCOXLIE Unavailable [address] [place] [address] + [place] [address] [facility] Unavailable [address] + [place] [address] RICCO, FADUMO Unavailable [address] + [place] [address] TOSHIA WILCOX Unavailable [address] [place] [address] + [place] [address] [facility] Unavailable [address] + [place] [address] RICCO, FADUMO Unavailable [address] + [place] [address] TOSHIA WILCOX Unavailable [address] [place] [address] + [place] [address] [facility] Unavailable [address] + [place] [address] RICCO, FADUMO Unavailable [address] + [place] [address] SEAMUS WILCOXE Unavailable [address] [place] [address] + [place] [address] [facility] Unavailable [address] + [place] [address] RICCO, FADUMO Unavailable [address] + [place] [address] TOSHIA WILCOX Unavailable [address] [place] [address] + [place] [address] WC Unavailable [address] + [place] [address] RICCO, FADUMO Unavailable [address] + [place] [address] TOSHIA WILCOX Unavailable [address] [place] [address] + [place] [address] [facility] Unavailable [address] + [place] [address] RICCO, FADUMO Unavailable [address] + [place] [address] TOSHIA WILCOX Unavailable [address] [place] [address] + [place] [address] [facility] Unavailable [address] + [place] [address] RICCO, FADUMO Unavailable [address] + [place] [address] TOSHIA WILCOX Unavailable [address] [place] [address] + [place] [address] [facility] Unavailable [address] + [place] [address] RICCO, FADUMO Unavailable [address] + [place] [address] TOSHIA WILCOX Unavailable [address] [place] [address] + [place] [address] [facility] Unavailable [address] + [place] [address] RICCO, FADUMO Unavailable [address] + [place] [address] TOSHIA WILCOX Unavailable [address] [place] [address] + [place] [address] [facility] Unavailable [address] + [place] [address] RICCO, FADUMO Unavailable [address] + [place] [address] TOSHIA WILCOX Unavailable [address] [place] [address] + [place] [address] [facility] Unavailable [address] + [place] [address] RICCO, FADUMO Unavailable [address] + [place] [address] TOSHIA WILCOX Unavailable [address] [place] [address] + [place] [address] [facility] Unavailable [address] + [place] [address] RICCO, FADUMO Unavailable [address] + [place] [address] TOSHIA WILCOX Unavailable [address] [place] [address] + [place] [address] [facility] Unavailable [address] + [place] [address] RICCO, FADUMO Unavailable [address] + [place] [address] MARK, TOSHIA Unavailable [address] [place] [address] + [place] [address] [facility] Unavailable [address] + [place] [address] RICCO, FADUMO Unavailable [address] + [place] [address] MARK TOSHIA Unavailable [address] [place] [address] + [place] [address] [facility] Unavailable [address] + [place] [address] RICCO, FADUMO Unavailable [address] + [place] [address] KATHLEEN WILCOXLIE Unavailable [address] [place] [address] + [place] [address] [facility] Unavailable [address] + [place] [address] RICCO, FADUMO Unavailable [address] + [place] [address] KATHLEEN WILCOXLIE Unavailable [address] [place] [address] + [place] [address] [facility] Unavailable [address] + [place] [address] RICCO, FADUMO Unavailable [address] + [place] [address] KATHLEEN WILCOXLIE Unavailable [address] [place] [address] + [place] [address] WC Unavailable [address] + [place] [address] RICCO, FADUMO Unavailable [address] + [place] [address] MARK TOSHIA Unavailable [address] [place] [address] + [place] [address] [facility] Unavailable [address] + [place] [address] RICCO, FADUMO Unavailable [address] + [place] [address] MARK TOSHIA Unavailable [address] [place] [address] + [place] [address] [facility] Unavailable [address] + [place] [address] FADUMO CHACKO Unavailable [address] [facility] + [place] [address] TOSHIA WILCOX Unavailable [address] [place] [place] [address] + [place] [address] [facility] Unavailable [address] + [place] [id number] Care Team Providers Name Role Phone ROSHNI, [...] Unavailable MASCI, CLIFFORD James Referring Unavailable PITASAWYER LUTZ Attending Unavailable MASCI, CLIFFORD James Referring Unavailable MASCI, CLIFFORD James Attending Unavailable MASCI, CLIFFORD James Referring Unavailable MASCI, CLIFFORD James Referring Unavailable ASIA REYES (FROZEN PIE MAKER) Attending Unavailable MASCI, CLIFFORD James Referring Unavailable MASCI, CLIFFORD James Attending Unavailable MASCI, CLIFFORD James Referring Unavailable MASCI, CLIFFORD James Attending Unavailable MASCI, CLIFFORD James Referring Unavailable ASIA REYES (FROZEN PIE MAKER) Attending Unavailable MASCI, CLIFFORD James Referring Unavailable [...] Primary Care Unavailable Masci, Clifford Consulting Unavailable BasaliBhanu Consulting Unavailable Masci, Clifford Attending Unavailable Masci, Clifford Referring Unavailable Person, Jacinto Primary Care Unavailable Masci, Clifford Attending Unavailable Person, Jacinto Primary Care Unavailable Masci, Clifford Referring Unavailable Masci, Clifford Attending Unavailable Person, Jacinto [...] Care Unavailable Person, Jacinto Primary Care Unavailable MOOK PAIGE Attending Unavailable SuEric agee Attending Unavailable Masci, Clifford Attending Unavailable Masci, Clifford Referring Unavailable Person, Jacinto Primary Care Unavailable Nurse, Surgery Attending Unavailable Person, Jacinto [...] Primary Care Unavailable Garcia Reed Consulting Unavailable Garcia Reed Attending Unavailable Person, Jacinto Referring Unavailable Person, Jacinto Primary Care Unavailable Person, Jacinto Primary Care Unavailable Johnny Santos Attending Unavailable Masci, Clifford Attending Unavailable Person, [...] Unknown C50.411 - Malignant Clifford Barakat Active [place] 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 of right female Repository breast / C50.411(ICD-10) 04/17/2018 Unknown 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 / Hospital C78.02(ICD-10) Repository 04/17/2018 Unknown Z17.1 - Estrogen MascClifford mckeon Active [place] receptor negative Community status [ER-] / Hospital Z17.1(ICD-10) Repository 04/20/2018 Unknown Z51.11 - Encounter MascClifford mckeon Active [place] for antineoplastic Community chemotherapy / Hospital Z51.11(ICD-10) Repository 01/27/2018 Unknown 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 / Hospital C79.51(ICD-10) Repository 10/20/2017 Active Unknown / [facility] [place] Repository 10/05/2017 Unknown C50.911 - Malignant MascClifford mckeon Active [place] neoplasm of Community unspecified site of Hospital right female breast Repository / C50.911(ICD-10) 09/15/2017 Unknown R10.84 - Generalized Jacinto Person Active [place] abdominal pain / Community R10.84(ICD-10) Hospital Repository 11/07/2017 Unknown R41.0 - Johnny Santos Active [place] Disorientation, Community unspecified / Hospital R41.0(ICD-10) Repository PROCEDURES PROCEDURES No Procedure Records FoundRESULTS RESULTS CBC W/DIFF, AUTOMATED Collected: 05/09/2018 Status: F Source: [place] 8:14 AM [facility] REPOSITORY TYPE CODE TESTS RESULT OUT [...] Lymph 1.63 Performed By: #### L100.0100 #### [facility] [address] [place], [place] [address]all [facility] [place], [address] BASIC METABOLIC Collected: 05/09/2018 Status: F Source: [place] PROFILE (BMP) 8:14 AM [facility] REPOSITORY TYPE CODE TESTS RESULT OUT [...] 8 Performed By: #### L500.2500, L500.3400 #### [facility] [address] [place], [place], [id number] LIVER PROFILE Collected: 05/09/2018 Status: F Source: [place] 8:14 AM [facility] REPOSITORY TYPE CODE TESTS RESULT OUT [...] 0.09 Performed By: #### L500.2500, L500.3400 #### [facility] [address] [place], [place], [address] PROGRESS Observed: 05/03/2018 Status: COMPLETED Source: [place] 8:[address] [facility] REPOSITORY HNO ID: [id number] Author: Clifford Barakat Service: (none) Author Type: [...] stopped after cycle #2. Was seen by factory maintenance technician at . Biopsy showed myopathy, but etiology [...] specimen was negative for both ER and IL as well as HER- 2. I discussed the case with the pathologist today who told me that histologically/morphologically the specimen was consistent with her previous specimen of breast cancer. The pathologist will issue an addendum quantifying ER and IL 0 as well as HER-2 at 0. [...] poorly differentiated carcinoma. See comment. COMMENT Immunohistochemistry ([id number]) does not rule out a breast primary. There is focal perinodal extension of tumor. Clinical correlation is suggested. ANTIBODY / CLONE RESULT Block 1 Mammaglobin (31A5) negative GATA3 (L50-823) positive, rare, dim CK8 (38bgumP18) positive Ki-67 (30-9) positive, moderate to high ER (6F11) negative 0% IL (1E2) negative 0% CK19 (A53-B/A2.26) positive Cyclin D1/BCL-1 (SP4) positive CEA (11-7/TF-3HB-1) negative SHELLI (E29) positive CK20 (KS20.8) negative Villin (CWWB1) negative RCC (PN-15) negative CA125 (OC125) positive Previous therapy for metastatic disease: 1) Cisplatin (+/- PARP inhibitor on trial). 2) [place]/carbo. She underwent a CT scan of the neck, chest abdomen and pelvis at [facility] on 10/05/2017. The CT of the neck [...] Came off trial. She was seen at [facility] and did not qualify for the [...] No jaundice or rash. No petechiae. NEUROLOGIC: county extension agent II-XII are grossly intact. No focal motor [...] DO CNOVSP Observed: 05/03/2018 Status: COMPLETED Source: [place] 8:[address] [facility] REPOSITORY Visit (SP) Office (DANYEL) PEDRO LUIS WILCOX ([id number]) 1970 F Date Time Provider Department 05/03/18 [...] stopped after cycle #2. Was seen by factory maintenance technician at . Biopsy showed myopathy, but etiology [...] specimen was negative for both ER and IL as well as HER-2. I discussed the case with the pathologist today who told me that histologically/morphologically the specimen was consistent with her previous specimen of breast cancer. The pathologist will issue an addendum quantifying ER and IL 0 as well as HER-2 at 0. [...] poorly differentiated carcinoma. See comment. COMMENT Immunohistochemistry ([id number]) does not rule out a breast primary. There is focal perinodal extension of tumor. Clinical correlation is suggested. ANTIBODY / CLONE RESULT Block 1 Mammaglobin (31A5) negative GATA3 (L50-823) positive, rare, dim CK8 (08vnheO10) positive Ki-67 (30-9) positive, moderate to high ER (6F11) negative 0% IL (1E2) negative 0% CK19 (A53-B/A2.26) positive Cyclin D1/BCL-1 (SP4) positive CEA (11-7/TF-3HB-1) negative SHELLI (E29) positive CK20 (KS20.8) negative Villin (CWWB1) negative RCC (PN-15) negative CA125 (OC125) positive Previous therapy for metastatic disease: 1) Cisplatin (+/- PARP inhibitor on trial). 2) [place]/carbo. She underwent a CT scan of the neck, chest abdomen and pelvis at [facility] on 10/05/2017. The CT of the neck [...] Came off trial. She was seen at [facility] and did not qualify for the [...] No jaundice or rash. No petechiae. NEUROLOGIC: county extension agent II-XII are grossly intact. No focal motor [...] Clifford Barakat DO Referring Provider: CLIFFORD BARAKAT [[id number]] Allergies As of Date: 05/03/2018 (No Known [...] More... HYPERLIPIDEMIA NEC/NOS [E78.5] INVALID FOR* FIBROMYALGIA [CHC0002] INVALID FOR* OVERWEIGHT [E66.9] INVALID FOR* OTHER [...] Source: [place] 12:25 PM [facility] REPOSITORY TYPE CODE TESTS RESULT OUT [...] Lymph 1.81 Performed By: #### L100.0100 #### [facility] [address] [place], [place], [address] BASIC METABOLIC Collected: 04/25/2018 Status: F Source: [place] PROFILE ([facility]) 12:25 PM [facility] REPOSITORY TYPE CODE TESTS RESULT OUT [...] 9 Performed By: #### L500.2500, L500.3400 #### [facility] [address] [place], [address] LIVER PROFILE Collected: 04/25/2018 Status: F Source: [place] 12:25 PM [facility] REPOSITORY TYPE CODE TESTS RESULT OUT [...] 0.06 Performed By: #### L500.2500, L500.3400 #### [facility] [address] [place], [address] CBC W/DIFF, AUTOMATED Collected: 04/19/2018 Status: F Source: [place] 7:40 AM [facility] REPOSITORY TYPE CODE TESTS RESULT OUT [...] Lymph 2.05 Performed By: #### L100.0100 #### [facility] [address] [place], [place], [address] BASIC METABOLIC Collected: 04/19/2018 Status: F Source: [place] PROFILE ([facility]) 7:40 AM [facility] REPOSITORY TYPE CODE TESTS RESULT OUT [...] 10 Performed By: #### L500.2500, L500.3400 #### [facility] [address] [place], [address] LIVER PROFILE Collected: 04/19/2018 Status: F Source: [place] 7:40 AM [facility] REPOSITORY TYPE CODE TESTS RESULT OUT [...] 0.07 Performed By: #### L500.2500, L500.3400 #### [facility] [address] [place], [address] PROGRESS Observed: 04/12/2018 Status: COMPLETED Source: [place] 3:49 PM [facility] REPOSITORY HNO ID: [id number] Author: Isha Servin (Sw) Service: (none) Author Type: Refrigeration Houseman Type: Progress Notes Filed: 04/12/2018 3:54 PM Note Text: Social Work Problem Referral Note INFORMATION/REFERRAL : Pedro Luis Wilcox 47 year old female was referred by Nurse Crystal with [facility] to [facility] Social Work for the following reason(s): [...] Nunez CNSW Observed: 04/12/2018 Status: COMPLETED Source: [place] 12:[address] [facility] REPOSITORY Social Work (DANYEL) PEDRO LUIS WILCOX ([id number]) 1970 F Date Time Provider Department 04/12/18 ISHA SERVIN (SW) During your visit today, we recorded the following information about you: ANNAMARIA Schroeder 04/12/2018 3:54 PM Signed Social Work Problem Referral Note INFORMATION/REFERRAL : Pedro Luis Wilcox 47 year old female was referred by Nurse Crystal with [facility] to [facility] Social Work for the following reason(s): [...] More... HYPERLIPIDEMIA NEC/NOS [E78.5] INVALID FOR* FIBROMYALGIA [[id number]] INVALID FOR* OVERWEIGHT [E66.9] INVALID FOR* OTHER [...] 04/12/18 PROGRESS Observed: 04/04/2018 Status: COMPLETED Source: [place] 9:[address] [facility] REPOSITORY HNO ID: [id number] Author: Clifford Barakat Service: (none) Author Type: [...] stopped after cycle #2. Was seen by factory maintenance technician at . Biopsy showed myopathy, but etiology [...] specimen was negative for both ER and IL as well as HER- 2. I discussed the case with the pathologist today who told me that histologically/morphologically the specimen was consistent with her previous specimen of breast cancer. The pathologist will issue an addendum quantifying ER and IL 0 as well as HER-2 at 0. [...] poorly differentiated carcinoma. See comment. COMMENT Immunohistochemistry ([id number]) does not rule out a breast primary. There is focal perinodal extension of tumor. Clinical correlation is suggested. ANTIBODY / CLONE RESULT Block 1 Mammaglobin (31A5) negative GATA3 (L50-823) positive, rare, dim CK8 (68umhyR58) positive Ki-67 (30-9) positive, moderate to high ER (6F11) negative 0% IL (1E2) negative 0% CK19 (A53-B/A2.26) positive Cyclin D1/BCL-1 (SP4) positive CEA (11-7/TF-3HB-1) negative SHELLI (E29) positive CK20 (KS20.8) negative Villin (CWWB1) negative RCC (PN-15) negative CA125 (OC125) positive Previous therapy for metastatic disease: 1) Cisplatin (+/- PARP inhibitor on trial). 2) [place]/carbo. She underwent a CT scan of the neck, chest abdomen and pelvis at [facility] on 10/05/2017. The CT of the neck [...] Came off trial. She was seen at [facility] and did not qualify for the [...] No jaundice or rash. No petechiae. NEUROLOGIC: county extension agent II-XII are grossly intact. No focal motor [...] DO CNOVSP Observed: 04/04/2018 Status: COMPLETED Source: MANTER 9:[address] [facility] REPOSITORY Visit (SP) Office (DANYEL) PEDRO LUIS WILCOX ([id number]) 1970 F Date Time Provider Department 04/04/18 9:10 AM CLIFFORD BARAKAT During your visit today, we recorded the following information about you: Temperature Pulse Blood pressure Weight 98.9 degrees 104/minute 145/81 89.6 kg Federica Pimentel TIFFANIE 04/04/2018 9:23 AM Signed Est patient. Bone scan @ [facility]. Federica Leyla Barakat DO 04/04/2018 [...] stopped after cycle #2. Was seen by factory maintenance technician at . Biopsy showed myopathy, but etiology [...] specimen was negative for both ER and IL as well as HER-2. I discussed the case with the pathologist today who told me that histologically/morphologically the specimen was consistent with her previous specimen of breast cancer. The pathologist will issue an addendum quantifying ER and IL 0 as well as HER-2 at 0. [...] poorly differentiated carcinoma. See comment. COMMENT Immunohistochemistry ([id number]) does not rule out a breast primary. There is focal perinodal extension of tumor. Clinical correlation is suggested. ANTIBODY / CLONE RESULT Block 1 Mammaglobin (31A5) negative GATA3 (L50-823) positive, rare, dim CK8 (45ruxuM27) positive Ki-67 (30-9) positive, moderate to high ER (6F11) negative 0% IL (1E2) negative 0% CK19 (A53-B/A2.26) positive Cyclin D1/BCL-1 (SP4) positive CEA (11-7/TF-3HB-1) negative SHELLI (E29) positive CK20 (KS20.8) negative Villin (CWWB1) negative RCC (PN-15) negative CA125 (OC125) positive Previous therapy for metastatic disease: 1) Cisplatin (+/- PARP inhibitor on trial). 2) [place]/carbo. She underwent a CT scan of the neck, chest abdomen and pelvis at [facility] on 10/05/2017. The CT of the neck [...] Came off trial. She was seen at [facility] and did not qualify for the [...] No jaundice or rash. No petechiae. NEUROLOGIC: county extension agent II-XII are grossly intact. No focal motor [...] Clifford Barakat DO Referring Provider: CLIFFORD BARAKAT [[id number]] Allergies As of Date: 04/04/2018 (No Known [...] More... HYPERLIPIDEMIA NEC/NOS [E78.5] INVALID FOR* FIBROMYALGIA [[id number]] INVALID FOR* OVERWEIGHT [E66.9] INVALID FOR* OTHER [...] Status: Signed Est patient. Bone scan @ [facility]. Federica Pimentel LPN Encounter Status:Closed by CLIFFORD BARAKAT DO on 04/04/18 CBC W/DIFF, AUTOMATED Collected: 04/04/2018 Status: F Source: [place] 7:29 AM [facility] REPOSITORY TYPE CODE TESTS RESULT OUT [...] Lymph 1.45 Performed By: #### L100.0100 #### [facility] [place], [address] BASIC METABOLIC Collected: 04/04/2018 Status: F Source: [place] PROFILE (BMP) 7:29 AM [facility] REPOSITORY TYPE CODE TESTS RESULT OUT [...] 7 Performed By: #### L500.2500, L500.3400 #### [facility] [address] [place], [address] LIVER PROFILE Collected: 04/04/2018 Status: F Source: [place] 7:29 AM [facility] REPOSITORY TYPE CODE TESTS RESULT OUT [...] 0.06 Performed By: #### L500.2500, L500.3400 #### [facility] [address] [place], [address] THORACIC SPINE 3 Observed: 04/03/2018 Status: F Source: [place] VIEWS 11:02 AM [facility] REPOSITORY [facility] Imaging Services [address] [place] [address] Thoracic Spine 3 Views MR#: [id number] Acct: [id number] Name: PEDRO LUIS WILCOX Rep #: [id number] : 1970 F 47 From: Marck Garcia MD PCP: Jacinto Person MD Status: REG CLI Study: Thoracic Spine 3 Views Date of Exam: 04/03/18 Exam# [id number] Ordering Dr: Clifford Barakat DO STUDY: X-RAY [...] CC: Jacinto Person MD; Clifford Barakat DO Leader Tier: Signed BONE SCAN WHOLE Observed: 03/30/2018 Status: F Source: [place] BODY 10:29 AM [facility] REPOSITORY [facility] Imaging Services [address] [place] [address] Bone Scan Whole Body MR#: [id number] Acct: [id number] Name: PEDRO LUIS WILCOX Rep #: [id number] : 1970 F 47 From: Clay Real DO PCP: Jacinto Person MD Status: REG CLI Study: Bone Scan Whole Body Date of Exam: 03/30/18 Exam# [id number] Ordering Dr: Clifford Barakat DO CLINICAL: 47-year-old [...] CC: Jacinto Person MD; Clifford Barakat DO Leader Tier: Signed ABDOMEN/PELVIS WITH Observed: 03/27/2018 Status: F Source: [place] CONTRAST 7:52 AM [facility] REPOSITORY [facility] Imaging Services [address] [place] [address] Abdomen/Pelvis WITH Contrast MR#: [id number] Acct: [id number] Name: PEDRO LUIS WILCOX Rep #: [id number] : 1970 F 47 From: Jina Arciniega MD PCP: Jacinto Person MD Status: REG CLI Study: Abdomen/Pelvis WITH Contrast Date of Exam: 03/27/18 Exam# [id number] Ordering Dr: Clifford Barakat DO STUDY: CT [...] the abdomen and pelvis. Atherosclerosis. Electronically Signed: Jian Arciniega MD at 17:03 EST Tel , Service support , CC: Jacinto Person MD; Clifford Barakat DO Leader Tier: Signed CHEST WITH CONTRAST Observed: 03/27/2018 Status: F Source: [place] 7:52 AM [facility] REPOSITORY [facility] Imaging Services [address] [place] [address] Chest WITH Contrast MR#: [id number] Acct: [id number] Name: PEDRO LUIS WILCOX Rep #: [id number] : 1970 F 47 From: Jina Arciniega MD PCP: Jacinto Person MD Status: REG CLI Study: Chest WITH Contrast Date of Exam: 03/27/18 Exam# [id number] Ordering Dr: Clifford Barakat DO STUDY: CT [...] CC: Jacinto Person MD; Clifford Barakat DO Leader Tier: Signed CBC W/DIFF, AUTOMATED Collected: 03/21/2018 Status: F Source: [place] 1:17 PM [facility] REPOSITORY TYPE CODE TESTS RESULT OUT [...] Lymph 1.53 Performed By: #### L100.0100 #### [facility] [address] [facility] [address] [place], [place], [id number] BASIC METABOLIC Collected: 03/21/2018 Status: F Source: [place] PROFILE (BMP) 1:17 PM [facility] REPOSITORY TYPE CODE TESTS RESULT OUT [...] 9 Performed By: #### L500.2500, L500.3400 #### [facility] [address] [place], [place], [address] LIVER PROFILE Collected: 03/21/2018 Status: F Source: [place] 1:17 PM [facility] REPOSITORY TYPE CODE TESTS RESULT OUT [...] 0.08 Performed By: #### L500.2500, L500.3400 #### [facility] [address] [place], [address] [facility] Observed: 03/21/2018 Status: COMPLETED Source: ROBERT 12:[address] [facility] REPOSITORY Telephone (HEMAWS) PEDRO LUIS WILCOX ([id number]) 1970 F Date Time Provider Department 03/21/18 [...] More... HYPERLIPIDEMIA NEC/NOS [E78.5] INVALID FOR* FIBROMYALGIA [[id number]] INVALID FOR* OVERWEIGHT [E66.9] INVALID FOR* OTHER [...] Source: [place] 10:40 AM [facility] REPOSITORY TYPE CODE TESTS RESULT OUT [...] Lymph 1.32 Performed By: #### L100.0100 #### [facility] [address] [place], [address] BASIC METABOLIC Collected: 03/13/2018 Status: F Source: [place] PROFILE ([facility]) 10:40 AM [facility] REPOSITORY TYPE CODE TESTS RESULT OUT [...] 12 Performed By: #### L500.2500, L500.3400 #### [facility] [address] [place], [place], [id number] LIVER PROFILE Collected: 03/13/2018 Status: F Source: [place] 10:40 AM [facility] REPOSITORY TYPE CODE TESTS RESULT OUT [...] 0.07 Performed By: #### L500.2500, L500.3400 #### [facility] [address] [place], [place], [id number] PROGRESS Observed: 03/06/2018 Status: COMPLETED Source: MANTER 9:[address] [facility] REPOSITORY HNO ID: [id number] Author: Clifford Barakat Service: (none) Author Type: [...] stopped after cycle #2. Was seen by factory maintenance technician at . Biopsy showed myopathy, but etiology [...] specimen was negative for both ER and IL as well as HER- 2. I discussed the case with the pathologist today who told me that histologically/morphologically the specimen was consistent with her previous specimen of breast cancer. The pathologist will issue an addendum quantifying ER and IL 0 as well as HER-2 at 0. [...] poorly differentiated carcinoma. See comment. COMMENT Immunohistochemistry ([id number]) does not rule out a breast primary. There is focal perinodal extension of tumor. Clinical correlation is suggested. ANTIBODY / CLONE RESULT Block 1 Mammaglobin (31A5) negative GATA3 (L50-823) positive, rare, dim CK8 (43udpcC80) positive Ki-67 (30-9) positive, moderate to high ER (6F11) negative 0% IL (1E2) negative 0% CK19 (A53-B/A2.26) positive Cyclin D1/BCL-1 (SP4) positive CEA (11-7/TF-3HB-1) negative SHELLI (E29) positive CK20 (KS20.8) negative Villin (CWWB1) negative RCC (PN-15) negative CA125 (OC125) positive Previous therapy for metastatic disease: 1) Cisplatin (+/- PARP inhibitor on trial). 2) [place]/carbo. She underwent a CT scan of the neck, chest abdomen and pelvis at [facility] on 10/05/2017. The CT of the neck [...] Came off trial. She was seen at [facility] and did not qualify for the [...] No jaundice or rash. No petechiae. NEUROLOGIC: county extension agent II-XII are grossly intact. No focal motor [...] scan in about a month. DO [facility] Observed: 03/06/2018 Status: COMPLETED Source: MANTER 9:[address] [facility] REPOSITORY Visit (SP) Office (HEMNIKOLE) PEDRO LUIS WILCOX ([id number]) 1970 F Date Time Provider Department 03/06/18 [...] stopped after cycle #2. Was seen by factory maintenance technician at . Biopsy showed myopathy, but etiology [...] specimen was negative for both ER and IL as well as HER-2. I discussed the case with the pathologist today who told me that histologically/morphologically the specimen was consistent with her previous specimen of breast cancer. The pathologist will issue an addendum quantifying ER and IL 0 as well as HER-2 at 0. [...] poorly differentiated carcinoma. See comment. COMMENT Immunohistochemistry ([id number]) does not rule out a breast primary. There is focal perinodal extension of tumor. Clinical correlation is suggested. ANTIBODY / CLONE RESULT Block 1 Mammaglobin (31A5) negative GATA3 (L50-823) positive, rare, dim CK8 (12pnfgJ84) positive Ki-67 (30-9) positive, moderate to high ER (6F11) negative 0% IL (1E2) negative 0% CK19 (A53-B/A2.26) positive Cyclin D1/BCL-1 (SP4) positive CEA (11-7/TF-3HB-1) negative SHELLI (E29) positive CK20 (KS20.8) negative Villin (CWWB1) negative RCC (PN-15) negative CA125 (OC125) positive Previous therapy for metastatic disease: 1) Cisplatin (+/- PARP inhibitor on trial). 2) [place]/carbo. She underwent a CT scan of the neck, chest abdomen and pelvis at [facility] on 10/05/2017. The CT of the neck [...] Came off trial. She was seen at [facility] and did not qualify for the [...] No jaundice or rash. No petechiae. NEUROLOGIC: county extension agent II-XII are grossly intact. 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 HYPERLIPIDEMIA NEC/NOS [E78.5] INVALID FOR* FIBROMYALGIA [GLF7385] INVALID FOR* Priority: Moderate OVERWEIGHT [E66.9] INVALID [...] Source: [place] 7:36 AM [facility] REPOSITORY TYPE CODE TESTS RESULT OUT [...] Lymph 1.63 Performed By: #### L100.0100 #### [facility] [address] [place], [address] BASIC METABOLIC Collected: 02/28/2018 Status: F Source: [place] PROFILE ([facility]) 7:36 AM [facility] REPOSITORY TYPE CODE TESTS RESULT OUT [...] 7 Performed By: #### L500.2500, L500.3400 #### [facility] [address] [place], [place], [address] LIVER PROFILE Collected: 02/28/2018 Status: F Source: [place] 7:36 AM [facility] REPOSITORY TYPE CODE TESTS RESULT OUT [...] 0.05 Performed By: #### L500.2500, L500.3400 #### [facility] [address] [place], [place], [id number] CBC W/DIFF, AUTOMATED Collected: 02/21/2018 Status: F Source: [place] 7:42 AM [facility] REPOSITORY TYPE CODE TESTS RESULT OUT [...] Lymph 1.49 Performed By: #### L100.0100 #### [facility] [address] [place], [address] BASIC METABOLIC Collected: 02/21/2018 Status: F Source: [place] PROFILE ([facility]) 7:42 AM [facility] REPOSITORY TYPE CODE TESTS RESULT OUT [...] 9 Performed By: #### L500.2500, L500.3400 #### [facility] [address] [place], [address] LIVER PROFILE Collected: 02/21/2018 Status: F Source: [place] 7:42 AM [facility] REPOSITORY TYPE CODE TESTS RESULT OUT [...] 0.06 Performed By: #### L500.2500, L500.3400 #### [facility] [address] 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 Patient denies other needs. 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 HYPERLIPIDEMIA NEC/NOS [E78.5] INVALID FOR* FIBROMYALGIA [[id number]] INVALID FOR* Priority: Moderate OVERWEIGHT [E66.9] INVALID [...] 02/14/18 PROGRESS Observed: 02/13/2018 Status: COMPLETED Source: [place] 9:[address] [facility] REPOSITORY [employer] ID: [id number] Author: Clifford Barakat Service: (none) Author Type: [...] stopped after cycle #2. Was seen by factory maintenance technician at . Biopsy showed myopathy, but etiology [...] specimen was negative for both ER and IL as well as HER- 2. I discussed the case with the pathologist today who told me that histologically/morphologically the specimen was consistent with her previous specimen of breast cancer. The pathologist will issue an addendum quantifying ER and IL 0 as well as HER-2 at 0. [...] poorly differentiated carcinoma. See comment. COMMENT Immunohistochemistry ([id number]) does not rule out a breast primary. There is focal perinodal extension of tumor. Clinical correlation is suggested. ANTIBODY / CLONE RESULT Block 1 Mammaglobin (31A5) negative GATA3 (L50-823) positive, rare, dim CK8 (93dibtR63) positive Ki-67 (30-9) positive, moderate to high ER (6F11) negative 0% IL (1E2) negative 0% CK19 (A53-B/A2.26) positive Cyclin D1/BCL-1 (SP4) positive CEA (11-7/TF-3HB-1) negative SHELLI (E29) positive CK20 (KS20.8) negative Villin (CWWB1) negative RCC (PN-15) negative CA125 (OC125) positive Previous therapy for metastatic disease: 1) Cisplatin (+/- PARP inhibitor on trial). 2) [place]/carbo. She underwent a CT scan of the neck, chest abdomen and pelvis at [facility] on 10/05/2017. The CT of the neck [...] Came off trial. She was seen at [facility] and did not qualify for the [...] No jaundice or rash. No petechiae. NEUROLOGIC: county extension agent II-XII are grossly intact. No focal motor [...] DO CNOVSP Observed: 02/13/2018 Status: COMPLETED Source: [place] 9:[address] [facility] REPOSITORY Visit (SP) Office (DANYEL) PEDRO LUIS WILCOX ([id number]) 1970 F Date Time Provider Department 02/13/18 [...] stopped after cycle #2. Was seen by factory maintenance technician at . Biopsy showed myopathy, but etiology [...] specimen was negative for both ER and IL as well as HER-2. I discussed the case with the pathologist today who told me that histologically/morphologically the specimen was consistent with her previous specimen of breast cancer. The pathologist will issue an addendum quantifying ER and IL 0 as well as HER-2 at 0. [...] poorly differentiated carcinoma. See comment. COMMENT Immunohistochemistry ([id number]) does not rule out a breast primary. There is focal perinodal extension of tumor. Clinical correlation is suggested. ANTIBODY / CLONE RESULT Block 1 Mammaglobin (31A5) negative GATA3 (L50-823) positive, rare, dim CK8 (50urtmL89) positive Ki-67 (30-9) positive, moderate to high ER (6F11) negative 0% IL (1E2) negative 0% CK19 (A53-B/A2.26) positive Cyclin D1/BCL-1 (SP4) positive CEA (11-7/TF-3HB-1) negative SHELLI (E29) positive CK20 (KS20.8) negative Villin (CWWB1) negative RCC (PN-15) negative CA125 (OC125) positive Previous therapy for metastatic disease: 1) Cisplatin (+/- PARP inhibitor on trial). 2) [place]/carbo. She underwent a CT scan of the neck, chest abdomen and pelvis at [facility] on 10/05/2017. The CT of the neck [...] Came off trial. She was seen at [facility] and did not qualify for the [...] No jaundice or rash. No petechiae. NEUROLOGIC: county extension agent II-XII are grossly intact. No focal motor [...] Clifford Barakat DO Referring Provider: CLIFFORD BARAKAT [[id number]] Allergies As of Date: 02/13/2018 (No Known [...] More... HYPERLIPIDEMIA NEC/NOS [E78.5] INVALID FOR* FIBROMYALGIA [[id number]] INVALID FOR* Priority: Moderate OVERWEIGHT [E66.9] INVALID [...] NO JOINT Observed: 02/10/2018 Status: F Source: [place] W/WO CONT 9:37 AM [facility] REPOSITORY [facility] Imaging Services [address] [place] [address] Lower Ext No Joint W/WO Cont MR#: [id number] Acct: [id number] Name: PEDRO LUIS WILCOX Rep #: [id number] : 1970 F 47 From: Mook Pimentel MD PCP: Jacinto Person MD Status: REG CLI Study: Lower Ext No Joint W/WO Cont Date of Exam: 02/10/18 Exam# [id number] Ordering Dr: Clifford Barakat DO STUDY: MRI [...] CC: Jacinto Person MD; Clifford Barakat DO Leader Tier: Signed CTA CHEST W/WO Observed: 02/07/2018 Status: F Source: [place] CONTRAST 11:42 AM [facility] REPOSITORY [facility] Imaging Services [address] [place] [address] CTA Chest W/WO Contrast MR#: [id number] Acct: [id number] Name: PEDRO LUIS WILCOX Rep #: [id number] : 1970 F 47 From: Rylan Schmitz MD PCP: Care Physician, No Primary Status: REG CLI Study: CTA Chest W/WO Contrast Date of Exam: 02/07/18 Exam# [id number] Ordering Dr: Clifford Barakat DO STUDY: CTA [...] No Primary Care Physician; Clifford Barakat DO Leader Tier: Signed PROGRESS Observed: 02/07/2018 Status: COMPLETED Source: MANTER 11:[address] [facility] REPOSITORY HNO ID: [id number] Author: Clifford Barakat Service: (none) Author Type: [...] stopped after cycle #2. Was seen by factory maintenance technician at . Biopsy showed myopathy, but etiology [...] specimen was negative for both ER and IL as well as HER- 2. I discussed the case with the pathologist today who told me that histologically/morphologically the specimen was consistent with her previous specimen of breast cancer. The pathologist will issue an addendum quantifying ER and IL 0 as well as HER-2 at 0. [...] poorly differentiated carcinoma. See comment. COMMENT Immunohistochemistry ([id number]) does not rule out a breast primary. There is focal perinodal extension of tumor. Clinical correlation is suggested. ANTIBODY / CLONE RESULT Block 1 Mammaglobin (31A5) negative GATA3 (L50-823) positive, rare, dim CK8 (27jsyzT83) positive Ki-67 (30-9) positive, moderate to high ER (6F11) negative 0% IL (1E2) negative 0% CK19 (A53-B/A2.26) positive Cyclin D1/BCL-1 (SP4) positive CEA (11-7/TF-3HB-1) negative SHELLI (E29) positive CK20 (KS20.8) negative Villin (CWWB1) negative RCC (PN-15) negative CA125 (OC125) positive Previous therapy for metastatic disease: 1) Cisplatin (+/- PARP inhibitor on trial). She underwent a CT scan of the neck, chest abdomen and pelvis at [facility] on 10/05/2017. The CT of the neck [...] Came off trial. She was seen at [facility] and did not qualify for the 2 clinical trials available due to her pre-existing diabetic neuropathy and history of type 1 diabetes. Current therapy: 1) [place]/carbo. Interim history: She started developing sharp pleuritic [...] No jaundice or rash. No petechiae. NEUROLOGIC: county extension agent II-XII are grossly intact. No focal motor [...] for a stat CT chest today at [facility]. -If negative she may proceed with chemotherapy. Clifford Barakat DO CNOVSP Observed: 02/07/2018 Status: COMPLETED Source: MANTER 8:[address] [facility] REPOSITORY Visit (SP) Office (DANYEL) PEDRO LUIS WILCOX ([id number]) 1970 F Date Time Provider Department 02/07/18 [...] stopped after cycle #2. Was seen by factory maintenance technician at . Biopsy showed myopathy, but etiology [...] specimen was negative for both ER and IL as well as HER-2. I discussed the case with the pathologist today who told me that histologically/morphologically the specimen was consistent with her previous specimen of breast cancer. The pathologist will issue an addendum quantifying ER and IL 0 as well as HER-2 at 0. [...] poorly differentiated carcinoma. See comment. COMMENT Immunohistochemistry ([id number]) does not rule out a breast primary. There is focal perinodal extension of tumor. Clinical correlation is suggested. ANTIBODY / CLONE RESULT Block 1 Mammaglobin (31A5) negative GATA3 (L50-823) positive, rare, dim CK8 (48olevU67) positive Ki-67 (30-9) positive, moderate to high ER (6F11) negative 0% IL (1E2) negative 0% CK19 (A53-B/A2.26) positive Cyclin D1/BCL-1 (SP4) positive CEA (11-7/TF-3HB-1) negative SHELLI (E29) positive CK20 (KS20.8) negative Villin (CWWB1) negative RCC (PN-15) negative CA125 (OC125) positive Previous therapy for metastatic disease: 1) Cisplatin (+/- PARP inhibitor on trial). She underwent a CT scan of the neck, chest abdomen and pelvis at [facility] on 10/05/2017. The CT of the neck [...] Came off trial. She was seen at [facility] and did not qualify for the 2 clinical trials available due to her pre-existing diabetic neuropathy and history of type 1 diabetes. Current therapy: 1) [place]/carbo. Interim history: She started developing sharp pleuritic [...] No jaundice or rash. No petechiae. NEUROLOGIC: county extension agent II-XII are grossly intact. No focal motor [...] for a stat CT chest today at [facility]. -If negative she may proceed with chemotherapy. Clifford Barakat DO Referring Provider: CLIFFORD BARAKAT [[id number]] Allergies As of Date: 02/07/2018 (No Known Allergies) Date Reviewed: 02/07/2018 Reviewed by: Federica Pimentel LPN - Fully Assessed Reason for Visit: Acute Visit [896] Primary Visit Diagnosis:Malignant neoplasm of upper-outer quadrant of right breast in female, estrogen receptor negative (HCC) [C50.411, Z17.1] Other Visit Diagnoses:Bone metastases (HCC) [C79.51] Pleuritic chest pain [R07.81] Order(s):CT CHEST W IVCON PE [[id number]] Order #: [id number] FUTURE iv contrast (will be provided with [...] More... HYPERLIPIDEMIA NEC/NOS [E78.5] INVALID FOR* FIBROMYALGIA [[id number]] INVALID FOR* Priority: Moderate OVERWEIGHT [E66.9] INVALID [...] PROFILE (BMP) 2:47 PM [facility] REPOSITORY TYPE CODE TESTS RESULT OUT [...] 10 Performed By: #### L500.2500, L500.3400 #### [facility] [address] [place], [place], [id number] LIVER PROFILE Collected: 02/06/2018 Status: F Source: [place] 2:47 PM [facility] REPOSITORY TYPE CODE TESTS RESULT OUT [...] 0.05 Performed By: #### L500.2500, L500.3400 #### [facility] [address] [place], [place], [address] CBC W/DIFF, AUTOMATED Collected: 02/06/2018 Status: F Source: [place] 2:47 PM [facility] REPOSITORY TYPE CODE TESTS RESULT OUT [...] Lymph 2.34 Performed By: #### L100.0100 #### [facility] [address] [place] [address]. [place], [place], [address] PROGRESS Observed: 01/31/2018 Status: COMPLETED Source: [place] 2:18 PM [facility] REPOSITORY O ID: [id number] Author: Isha Servin (Sw) Service: (none) Author Type: Refrigeration Houseman Type: Progress Notes Filed: 01/31/2018 2:25 PM Note Text: Social Work Problem Referral Note INFORMATION/REFERRAL : Pedro Luis Wilcox 47 year old female was referred by [facility] Social Work for the following reason(s): disability planning PERSONS INTERVIEWED: patient INTERVENTION: Information AND Referral Service Co-ordination Affect/Mood: The patient is noted as expressing worry IDENTIFIED PROBLEMS/NEEDS: Continue to assess/collaborate Disability Intervention/Referral to be provided:Arrangements made for continuity of care Information for community resources/agencies IMPRESSION/PLAN: SW met with patient so she could olive picker the disability paperwork to send in. [...] Source: [place] 8:51 AM [facility] REPOSITORY TYPE CODE TESTS RESULT OUT [...] Lymph 1.43 Performed By: #### L100.0100 #### [facility] [address] [place], [place], [address] BASIC METABOLIC Collected: 01/31/2018 Status: F Source: [place] PROFILE (BMP) 8:51 AM [facility] REPOSITORY TYPE CODE TESTS RESULT OUT [...] 9 Performed By: #### L500.2500, L500.3400 #### [facility] [address] [place], [address] LIVER PROFILE Collected: 01/31/2018 Status: F Source: [place] 8:51 AM [facility] REPOSITORY TYPE CODE TESTS RESULT OUT [...] 0.09 Performed By: #### L500.2500, L500.3400 #### [facility] [address] [place], [address] CNSW Observed: 01/31/2018 Status: COMPLETED Source: ROBERT 12:[address] [facility] REPOSITORY Social Work (DANYEL) PEDRO LUIS WILCOX ([id number]) 1970 F Date Time Provider Department 01/31/18 ISHA SERVIN (SW) During your visit today, we recorded the following information about you: ANNAMARIA Schroeder 01/31/2018 2:25 PM Signed Social Work Problem Referral Note INFORMATION/REFERRAL : Pedro Luis Wilcox 47 year old female was referred by [facility] Social Work for the following reason(s): disability planning PERSONS INTERVIEWED: patient INTERVENTION: Information AND Referral Service Co-ordination Affect/Mood: The patient is noted as expressing worry IDENTIFIED PROBLEMS/NEEDS: Continue to assess/collaborate Disability Intervention/Referral to be provided:Arrangements made for continuity of care Information for community resources/agencies IMPRESSION/PLAN: SW met with patient so she could olive picker the disability paperwork to send in. [...] More... HYPERLIPIDEMIA NEC/NOS [E78.5] INVALID FOR* FIBROMYALGIA [[id number]] INVALID FOR* Priority: Moderate OVERWEIGHT [E66.9] INVALID [...] 01/31/18 PROGRESS Observed: 01/30/2018 Status: COMPLETED Source: [place] 5:02 PM [facility] REPOSITORY [employer] ID: [id number] Author: Isha (Hilario) Jameson Service: (none) Author Type: Refrigeration Houseman Type: Progress Notes Filed: 01/30/2018 5:03 PM Note Text: Social Work Problem Referral Note INFORMATION/REFERRAL : Pedro Luis Wilcox 47 year old female was referred by [facility] Social Work for the following reason(s): disability [...] Nunez CNSW Observed: 01/30/2018 Status: COMPLETED Source: [place] 12:[address] [facility] REPOSITORY Social Work (HEMAWS) PEDRO LUIS WILCOX ([id number]) 1970 F Date Time Provider Department 01/30/18 ISHA SERVIN (HILARIO) DANYEL During your visit today, we recorded the following information about you: ANNAMARIA Schroeder 01/30/2018 5:03 PM Signed Social Work Problem Referral Note INFORMATION/REFERRAL : Pedro Luis Wilcox 47 year old female was referred by [facility] Social Work for the following reason(s): disability [...] More... HYPERLIPIDEMIA NEC/NOS [E78.5] INVALID FOR* FIBROMYALGIA [[id number]] INVALID FOR* Priority: Moderate OVERWEIGHT [E66.9] INVALID [...] 2 VIEWS Observed: 01/24/2018 Status: F Source: [place] 10:09 AM [facility] REPOSITORY [facility] Imaging Services [address] [place] [address] Femur Min 2 Views MR#: [id number] Acct: [id number] Name: MARKLANEYPATTI Williamson Rep #: [id number] : 1970 F 47 From: Ruperto Sahu MD PCP: Jacinto Person MD Status: REG CLI Study: Femur Min 2 Views Date of Exam: 01/24/18 Exam# [id number] Ordering Dr: Clifford Barakat DO STUDY: X-RAY [...] CC: Jacinto Person MD; Clifford Barakat DO Leader Tier: Signed PROGRESS Observed: 01/23/2018 Status: COMPLETED Source: [place] 9:[address] [facility] REPOSITORY HNO ID: [id number] Author: Clifford Barakat Service: (none) Author Type: [...] stopped after cycle #2. Was seen by factory maintenance technician at . Biopsy showed myopathy, but etiology [...] specimen was negative for both ER and IL as well as HER- 2. I discussed the case with the pathologist today who told me that histologically/morphologically the specimen was consistent with her previous specimen of breast cancer. The pathologist will issue an addendum quantifying ER and IL 0 as well as HER-2 at 0. [...] poorly differentiated carcinoma. See comment. COMMENT Immunohistochemistry ([id number]) does not rule out a breast primary. There is focal perinodal extension of tumor. Clinical correlation is suggested. ANTIBODY / CLONE RESULT Block 1 Mammaglobin (31A5) negative GATA3 (L50-823) positive, rare, dim CK8 (04qoboT38) positive Ki-67 (30-9) positive, moderate to high ER (6F11) negative 0% IL (1E2) negative 0% CK19 (A53-B/A2.26) positive Cyclin D1/BCL-1 (SP4) positive CEA (11-7/TF-3HB-1) negative SHELLI (E29) positive CK20 (KS20.8) negative Villin (CWWB1) negative RCC (PN-15) negative CA125 (OC125) positive Previous therapy for metastatic disease: 1) Cisplatin (+/- PARP inhibitor on trial). She underwent a CT scan of the neck, chest abdomen and pelvis at [facility] on 10/05/2017. The CT of the neck [...] Came off trial. She was seen at [facility] and did not qualify for the 2 clinical trials available due to her pre-existing diabetic neuropathy and history of type 1 diabetes. Current therapy: 1) [place]/carbo. Interim history: Her first 2 cycles of [...] Recently she had a friend and fellow baptism member who of metastatic cervical cancer at [...] No jaundice or rash. No petechiae. NEUROLOGIC: county extension agent II-XII are grossly intact. No focal motor weakness. MUSCULOSKELETAL: No muscle wasting. ASSESSMENT/PLAN: 1) pT1c (1.6 cm; grade 3; no AL invasion) pN0(sn) MX ER/IL negative HER2 non-amplified invasive ductal carcinoma of [...] DO CNOVSP Observed: 01/23/2018 Status: COMPLETED Source: [place] 9:[address] [facility] REPOSITORY Visit (SP) Office (DANYEL) PEDRO LUIS WILCOX ([id number]) 1970 F Date Time Provider Department 01/23/18 9:30 AM CLIFFORD BARAKAT During your visit today, we recorded the following information about you: Temperature Pulse Blood pressure Weight 98.6 degrees 104/minute 117/67 87.3 kg Federica Pimentel LPN 01/23/2018 9:56 AM Signed Est patient. Labs today @ [facility] 0900, treatment tomorrow. Federica Barakat [...] stopped after cycle #2. Was seen by factory maintenance technician at . Biopsy showed myopathy, but etiology [...] specimen was negative for both ER and IL as well as HER-2. I discussed the case with the pathologist today who told me that histologically/morphologically the specimen was consistent with her previous specimen of breast cancer. The pathologist will issue an addendum quantifying ER and IL 0 as well as HER-2 at 0. [...] poorly differentiated carcinoma. See comment. COMMENT Immunohistochemistry ([id number]) does not rule out a breast primary. There is focal perinodal extension of tumor. Clinical correlation is suggested. ANTIBODY / CLONE RESULT Block 1 Mammaglobin (31A5) negative GATA3 (L50-823) positive, rare, dim CK8 (35hsqdF41) positive Ki-67 (30-9) positive, moderate to high ER (6F11) negative 0% IL (1E2) negative 0% CK19 (A53-B/A2.26) positive Cyclin D1/BCL-1 (SP4) positive CEA (11-7/TF-3HB-1) negative SHELLI (E29) positive CK20 (KS20.8) negative Villin (CWWB1) negative RCC (PN-15) negative CA125 (OC125) positive Previous therapy for metastatic disease: 1) Cisplatin (+/- PARP inhibitor on trial). She underwent a CT scan of the neck, chest abdomen and pelvis at [facility] on 10/05/2017. The CT of the neck [...] Came off trial. She was seen at [facility] and did not qualify for the 2 clinical trials available due to her pre-existing diabetic neuropathy and history of type 1 diabetes. Current therapy: 1) [place]/carbo. Interim history: Her first 2 cycles of [...] Recently she had a friend and fellow baptism member who of metastatic cervical cancer at [...] No jaundice or rash. No petechiae. NEUROLOGIC: county extension agent II-XII are grossly intact. No focal motor weakness. MUSCULOSKELETAL: No muscle wasting. ASSESSMENT/PLAN: 1) pT1c (1.6 cm; grade 3; no AL invasion) pN0(sn) MX ER/IL negative HER2 non-amplified invasive ductal carcinoma of [...] Clifford Barakat DO Referring Provider: CLIFFORD BARAKAT [[id number]] Allergies As of Date: 01/23/2018 (No Known [...] [R93.6] Order(s):XR FEMUR GENERAL 2V AP/LAT LT [[id number]] Order #: [id number] FUTURE MRI UPPER LEG WO/W IVCON LT [[id number]] Order #: [id number] FUTURE [] iv contrast (will be provided [...] More... HYPERLIPIDEMIA NEC/NOS [E78.5] INVALID FOR* FIBROMYALGIA [[id number]] INVALID FOR* Priority: Moderate OVERWEIGHT [E66.9] INVALID [...] Status: Signed Est patient. Labs today @ [facility] 0900, treatment tomorrow. Federica Pimentel LPN Encounter Status:Closed by CLIFFORD BARAKAT DO on 01/23/18 CBC W/DIFF, AUTOMATED Collected: 01/23/2018 Status: F Source: [place] 8:55 AM [facility] REPOSITORY TYPE CODE TESTS RESULT OUT [...] Lymph 1.35 Performed By: #### L100.0100 #### [facility] [address] [place], [address] BASIC METABOLIC Collected: 01/23/2018 Status: F Source: [place] PROFILE (BMP) 8:55 AM [facility] REPOSITORY TYPE CODE TESTS RESULT OUT [...] 8 Performed By: #### L500.2500, L500.3400 #### [facility] [address] [place], [address] LIVER PROFILE Collected: 01/23/2018 Status: F Source: [place] 8:55 AM [facility] REPOSITORY TYPE CODE TESTS RESULT OUT [...] 0.08 Performed By: #### L500.2500, L500.3400 #### [facility] [address] [place], [address] BONE SCAN WHOLE Observed: 01/20/2018 Status: F Source: [place] BODY 9:45 AM [facility] REPOSITORY [facility] Imaging Services [address] [place] [address] Bone Scan Whole Body MR#: [id number] Acct: [id number] Name: PEDRO LUIS WILCOX Rep #: [id number] : 1970 F 47 From: Clay Real DO PCP: Jacinto Person MD Status: REG CLI Study: Bone Scan Whole Body Date of Exam: 01/20/18 Exam# [id number] Ordering Dr: Clifford Barakat DO CLINICAL: 47-year-old [...] CC: Jacinto Person MD; Clifford Barakat DO Leader Tier: Signed ABDOMEN/PELVIS WITH Observed: 01/17/2018 Status: F Source: [place] CONTRAST 2:55 PM [facility] REPOSITORY [facility] Imaging Services [address] [place] [address] Abdomen/Pelvis WITH Contrast MR#: [id number] Acct: [id number] Name: PEDRO LUIS WILCOX Rep #: [id number] : 1970 F 47 From: Diomedes Villagran MD PCP: Jacinto Person MD Status: REG CLI Study: Abdomen/Pelvis WITH Contrast Date of Exam: 01/17/18 Exam# [id number] Ordering Dr: Clifford Barakat DO STUDY: CT [...] CC: Jacinto Person MD; Clifford Barakat DO Leader Tier: Signed CHEST WITH CONTRAST Observed: 01/17/2018 Status: F Source: [place] 2:55 PM [facility] REPOSITORY [facility] Imaging Services [address] [place] [address] Chest WITH Contrast MR#: [id number] Acct: [id number] Name: PEDRO LUIS WILCOX Rep #: [id number] : 1970 F 47 From: Lindsay Escobedo MD PCP: Jacinto Person MD Status: REG CLI Study: Chest WITH Contrast Date of Exam: 01/17/18 Exam# [id number] Ordering Dr: Clifford Barakat DO STUDY: CT [...] CC: Jacinto Person MD; Clifford Barakat DO Leader Tier: Signed CNOVSP Observed: 01/03/2018 Status: COMPLETED Source: [place] 8:[address] [facility] REPOSITORY Visit (SP) Office (DANYEL) PEDRO LUIS WILCOX ([id number]) 1970 F Date Time Provider Department 01/03/18 [...] here today for evaluation for chemotherapy at [facility] today. Per Dr. Barakat's previous [...] after cycle #2. ? Was seen by factory maintenance technician at . Biopsy showed myopathy, but etiology [...] specimen was negative for both ER and IL as well as HER-2. I discussed the case with the pathologist today who told me that histologically/morphologically the specimen was consistent with her previous specimen of breast cancer. The pathologist will issue an addendum quantifying ER and IL 0 as well as HER-2 at 0. [...] poorly differentiated carcinoma. See comment. COMMENT Immunohistochemistry ([id number]) does not rule out a breast primary. There is focal perinodal extension of tumor. Clinical correlation is suggested. ? ANTIBODY / CLONE RESULT Block 1 Mammaglobin (31A5) negative GATA3 (L50-823) positive, rare, dim CK8 (43ydviO81) positive Ki-67 (30-9) positive, moderate to high ER (6F11) negative 0% IL (1E2) negative 0% CK19 (A53-B/A2.26) positive Cyclin D1/BCL-1 (SP4) positive CEA (11-7/TF-3HB-1) negative SHELLI (E29) positive CK20 (KS20.8) negative Villin (CWWB1) negative RCC (PN-15) negative CA125 (OC125) positive ? Previous therapy for metastatic disease: 1) Cisplatin (+/- PARP inhibitor on trial). ? She underwent a CT scan of the neck, chest abdomen and pelvis at [facility] on 10/05/2017. The CT of the neck [...] off trial. ? She was seen at [facility] and did not qualify for the 2 clinical trials available due to her pre-existing diabetic neuropathy and history of type 1 diabetes. ? Current therapy: 1) [place]/carbo. I'm ok. I was able to go [...] suspicious rashes or lesions LABS: Done at [facility] Reviewed. ASSESSMENT/PLAN: 1. Malignant neoplasm of upper-outer quadrant of right breast in female, estrogen receptor negative (HCC) - ICD9: 174.4, V86.1, ICD10: C50.411, Z17.1 (primary diagnosis) pT1c (1.6 cm; grade 3; no AL invasion) pN0(sn) MX ER/IL negative HER2 non-amplified invasive ductal carcinoma of the right breast. Comprehensive BRCA 1 and 2 testing (scanned 12/05/2013) no mutation Complicated by severe myositis during adjuvant chemotherapy. KPS is 90%. Biopsy-proven local regional recurrence. 2. Malignant neoplasm metastatic to left lung (HCC) - ICD9: 197.0, ICD10: C78.02 - Overall tolerating gemzar/carbo well. - Reviewed labs done at [facility]. - Rx phenergan. Pt. aware to not take with reglan. - Proceed as scheduled today at [facility] for treatment. - CT chest/abd/pelvis/bone scan (to be done at [facility]) after this cycle at [facility]. - Follow up in [address] Barakat to review scans (prior to next cycle) with CBC/CMP (done at [facility]). - Pt. aware to call office with any questions/concerns. The patient indicates understanding of these issues and agrees with the plan. Discussed case with Dr. Barakat who agrees with treatment plan. Asia Reyes APRN.SALVADOR Langston LPN, TIFFANIE 01/03/2018 8:55 AM Signed Est pt, discuss recent lab results. Chemo @ [facility] today Orlando Langston LPN Referring Provider: CLIFFORD BARAKAT [[id number]] Allergies As of Date: 01/03/2018 (No Known Allergies) Date Reviewed: 01/03/2018 Reviewed by: Asia (Data Management Engineer) Eric - Fully Assessed Reason for Visit: [...] 20 tabletRfl: 2 CT ABD/PEL W IVCON [[id number]] Order #: [id number] FUTURE CT CHEST W IVCON [[id number]] Order #: [id number] FUTURE iv contrast (will be provided with [...] 1 EachRfl: 0 NM BONE WHOLE BODY [[id number]] Order #: [id number] FUTURE Follow-up and Disposition History Recorded Prescriptions [...] More... HYPERLIPIDEMIA NEC/NOS [E78.5] INVALID FOR* FIBROMYALGIA [ZIB1077] INVALID FOR* Priority: Moderate OVERWEIGHT [E66.9] INVALID [...] pt, discuss recent lab results. Chemo @ [facility] today Orlando Langston LPN Encounter Status:Closed by ASIA REYES CNP on 01/04/18 PROGRESS Observed: 01/03/2018 Status: COMPLETED Source: [place] 8:29 AM [facility] REPOSITORY HNO ID: [id number] Author: Asia Reyes Service: (none) Author Type: Nurse Practitioner Type: Progress Notes Filed: 01/04/2018 8:36 AM Note Text: Chief Complaint Patient presents with: Established Patient HPI: Pedro Luis Wilcox is a 47 year old female who presents here today for evaluation for chemotherapy at [facility] today. Per Dr. Barakat's previous [...] after cycle #2. ? Was seen by factory maintenance technician at . Biopsy showed myopathy, but etiology [...] specimen was negative for both ER and IL as well as HER- 2. I discussed the case with the pathologist today who told me that histologically/morphologically the specimen was consistent with her previous specimen of breast cancer. The pathologist will issue an addendum quantifying ER and IL 0 as well as HER-2 at 0. [...] poorly differentiated carcinoma. See comment. COMMENT Immunohistochemistry ([id number]) does not rule out a breast primary. There is focal perinodal extension of tumor. Clinical correlation is suggested. ? ANTIBODY / CLONE RESULT Block 1 Mammaglobin (31A5) negative GATA3 (L50-823) positive, rare, dim CK8 (60heudT76) positive Ki-67 (30-9) positive, moderate to high ER (6F11) negative 0% IL (1E2) negative 0% CK19 (A53-B/A2.26) positive Cyclin D1/BCL-1 (SP4) positive CEA (11-7/TF-3HB-1) negative SHELLI (E29) positive CK20 (KS20.8) negative Villin (CWWB1) negative RCC (PN-15) negative CA125 (OC125) positive ? Previous therapy for metastatic disease: 1) Cisplatin (+/- PARP inhibitor on trial). ? She underwent a CT scan of the neck, chest abdomen and pelvis at [facility] on 10/05/2017. The CT of the neck [...] off trial. ? She was seen at [facility] and did not qualify for the 2 clinical trials available due to her pre-existing diabetic neuropathy and history of type 1 diabetes. ? Current therapy: 1) [place]/carbo. I'm ok. I was able to go [...] suspicious rashes or lesions LABS: Done at [facility] Reviewed. ASSESSMENT/PLAN: 1. Malignant neoplasm of upper-outer quadrant of right breast in female, estrogen receptor negative (HCC) - ICD9: 174.4, V86.1, ICD10: C50.411, Z17.1 (primary diagnosis) pT1c (1.6 cm; grade 3; no AL invasion) pN0(sn) MX ER/IL negative HER2 non-amplified invasive ductal carcinoma of the right breast. Comprehensive BRCA 1 and 2 testing (scanned 12/05/2013) no mutation Complicated by severe myositis during adjuvant chemotherapy. KPS is 90%. Biopsy-proven local regional recurrence. 2. Malignant neoplasm metastatic to left lung (HCC) - ICD9: 197.0, ICD10: C78.02 - Overall tolerating gemzar/carbo well. - Reviewed labs done at [facility]. - Rx phenergan. Pt. aware to not take with reglan. - Proceed as scheduled today at [facility] for treatment. - CT chest/abd/pelvis/bone scan (to be done at [facility]) after this cycle at [facility]. - Follow up in [address] Barakat to review scans (prior to next cycle) with CBC/CMP (done at [facility]). - Pt. aware to call office with any questions/concerns. The patient indicates understanding of these issues and agrees with the plan. Discussed case with Dr. Barakat who agrees with treatment plan. Asia Reyes APRN.FROZEN PIE MAKER CBC W/DIFF, AUTOMATED Collected: 01/03/2018 Status: F Source: [place] 6:13 AM [facility] REPOSITORY TYPE CODE TESTS RESULT OUT [...] Lymph 1.63 Performed By: #### L100.0100 #### [facility] [address] [place], [address] BASIC METABOLIC Collected: 01/03/2018 Status: F Source: [place] PROFILE ([facility]) 6:13 AM [facility] REPOSITORY TYPE CODE TESTS RESULT OUT [...] 10 Performed By: #### L500.2500, L500.3400 #### [facility] [address] [place], [place], [address] LIVER PROFILE Collected: 01/03/2018 Status: F Source: [place] 6:13 AM [facility] REPOSITORY TYPE CODE TESTS RESULT OUT [...] 0.06 Performed By: #### L500.2500, L500.3400 #### [facility] [address] [place] [address], [address] CBC W/DIFF, AUTOMATED Collected: 12/20/2017 Status: F Source: [place] 6:26 AM [facility] REPOSITORY TYPE CODE TESTS RESULT OUT [...] Lymph 2.23 Performed By: #### L100.0100 #### [facility] [address] [place], [address] BASIC METABOLIC Collected: 12/20/2017 Status: F Source: [place] PROFILE (BMP) 6:26 AM [facility] REPOSITORY TYPE CODE TESTS RESULT OUT [...] 10 Performed By: #### L500.2500, L500.3400 #### [facility] [address] [place], [place], [address] LIVER PROFILE Collected: 12/20/2017 Status: F Source: [place] 6:26 AM [facility] REPOSITORY TYPE CODE TESTS RESULT OUT [...] 0.05 Performed By: #### L500.2500, L500.3400 #### [facility] [address] [place], [address] CNOVSP Observed: 12/12/2017 Status: COMPLETED Source: [place] 3:[address] [facility] REPOSITORY Visit (SP) Office (HEMAWS) PEDRO LUIS WILCOX ([id number]) 1970 F Date Time Provider Department 12/12/17 [...] stopped after cycle #2. Was seen by factory maintenance technician at . Biopsy showed myopathy, but etiology [...] specimen was negative for both ER and IL as well as HER-2. I discussed the case with the pathologist today who told me that histologically/morphologically the specimen was consistent with her previous specimen of breast cancer. The pathologist will issue an addendum quantifying ER and IL 0 as well as HER-2 at 0. [...] poorly differentiated carcinoma. See comment. COMMENT Immunohistochemistry ([id number]) does not rule out a breast primary. There is focal perinodal extension of tumor. Clinical correlation is suggested. ANTIBODY / CLONE RESULT Block 1 Mammaglobin (31A5) negative GATA3 (L50-823) positive, rare, dim CK8 (67iymtK53) positive Ki-67 (30-9) positive, moderate to high ER (6F11) negative 0% IL (1E2) negative 0% CK19 (A53-B/A2.26) positive Cyclin D1/BCL-1 (SP4) positive CEA (11-7/TF-3HB-1) negative SHELLI (E29) positive CK20 (KS20.8) negative Villin (CWWB1) negative RCC (PN-15) negative CA125 (OC125) positive Previous therapy for metastatic disease: 1) Cisplatin (+/- PARP inhibitor on trial). She underwent a CT scan of the neck, chest abdomen and pelvis at [facility] on 10/05/2017. The CT of the neck [...] Came off trial. She was seen at [facility] and did not qualify for the 2 clinical trials available due to her pre-existing diabetic neuropathy and history of type 1 diabetes. Current therapy: 1) [place]/carbo. Interim history: She is completed 2 cycles [...] No jaundice or rash. No petechiae. NEUROLOGIC: county extension agent II-XII are grossly intact. No focal motor weakness. MUSCULOSKELETAL: No muscle wasting. ASSESSMENT/PLAN: 1) pT1c (1.6 cm; grade 3; no AL invasion) pN0(sn) MX ER/IL negative HER2 non-amplified invasive ductal carcinoma of the right breast. Comprehensive BRCA 1 and 2 testing (scanned 12/05/2013) no mutation Complicated by severe myositis during adjuvant chemotherapy. -KPS is 90%. -Biopsy-proven local regional recurrence. -Sensory neuropathy stable. -I personally reviewed the CT scan images of the neck, chest, abdomen and pelvis done at [facility] on 12/08/2016. There is a barely perceptible [...] Clifford Barakat DO Referring Provider: CLIFFORD BARAKAT [[id number]] Allergies As of Date: 12/12/2017 (No Known [...] More... HYPERLIPIDEMIA NEC/NOS [E78.5] INVALID FOR* FIBROMYALGIA [[id number]] INVALID FOR* Priority: Moderate OVERWEIGHT [E66.9] INVALID [...] [Z*INVALID FOR* Visit Notes: >> Federica Pimentel CROSS TIE MAKER Mon Dec 12, 2017 3:41 PM Status: Signed Est patient. Discuss recent labs and treatment tomorrow. Federica Pimentel TIFFANIE Encounter Status:Closed by CLIFFORD BARAKAT DO on 12/12/17 PROGRESS Observed: 12/12/2017 Status: COMPLETED Source: [place] 3:41 PM [facility] [place] REPOSITORY HNO ID: [id number] Author: Clifford Barakat Service: (none) Author Type: [...] two cycles of TC. Admitted for severe APGE. Admitted 12/17/2013 due to increase in thigh pain and dyspnea. Markedly elevated CK. No increase in serum Cr. Chemotherapy stopped after cycle #2. Was seen by factory maintenance technician at . Biopsy showed myopathy, but etiology [...] specimen was negative for both ER and IL as well as HER- 2. I discussed the case with the pathologist today who told me that histologically/morphologically the specimen was consistent with her previous specimen of breast cancer. The pathologist will issue an addendum quantifying ER and IL 0 as well as HER-2 at 0. [...] poorly differentiated carcinoma. See comment. COMMENT Immunohistochemistry ([id number]) does not rule out a breast primary. There is focal perinodal extension of tumor. Clinical correlation is suggested. ANTIBODY / CLONE RESULT Block 1 Mammaglobin (31A5) negative GATA3 (L50-823) positive, rare, dim CK8 (29uqqdM76) positive Ki-67 (30-9) positive, moderate to high ER (6F11) negative 0% IL (1E2) negative 0% CK19 (A53-B/A2.26) positive Cyclin D1/BCL-1 (SP4) positive CEA (11-7/TF-3HB-1) negative SHELLI (E29) positive CK20 (KS20.8) negative Villin (CWWB1) negative RCC (PN-15) negative CA125 (OC125) positive Previous therapy for metastatic disease: 1) Cisplatin (+/- PARP inhibitor on trial). She underwent a CT scan of the neck, chest abdomen and pelvis at [facility] on 10/05/2017. The CT of the neck [...] Came off trial. She was seen at [facility] and did not qualify for the 2 clinical trials available due to her pre-existing diabetic neuropathy and history of type 1 diabetes. Current therapy: 1) [place]/carbo. Interim history: She is completed 2 cycles [...] sounds are of normal intensity in all onrris. No rales, wheezes or rhonchi. CARDIOVASCULAR: Rhythm is regular. Normal intensity S1/S2. There is no gallop or murmur. ABDOMEN: The abdomen is nondistended. No organomegaly. No tenderness. Extremities: No swelling or edema. SKIN: No jaundice or rash. No petechiae. NEUROLOGIC: county extension agent II-XII are grossly intact. No focal motor weakness. MUSCULOSKELETAL: No muscle wasting. ASSESSMENT/PLAN: 1) pT1c (1.6 cm; grade 3; no AL invasion) pN0(sn) MX ER/IL negative HER2 non-amplified invasive ductal carcinoma of the right breast. Comprehensive BRCA 1 and 2 testing (scanned 12/05/2013) no mutation Complicated by severe myositis during adjuvant chemotherapy. -KPS is 90%. -Biopsy-proven local regional recurrence. -Sensory neuropathy stable. -I personally reviewed the CT scan images of the neck, chest, abdomen and pelvis done at [facility] on 12/08/2016. There is a barely perceptible [...] W/DIFF, AUTOMATED Collected: 12/09/2017 Status: F Source: [place] 11:18 AM [facility] REPOSITORY TYPE CODE TESTS RESULT OUT [...] Lymph 1.43 Performed By: #### L100.0100 #### [facility] [address] [place], [address] BASIC METABOLIC Collected: 12/09/2017 Status: F Source: [place] PROFILE ([facility]) 11:18 AM [facility] REPOSITORY TYPE CODE TESTS RESULT OUT [...] 9 Performed By: #### L500.2500, L500.3400 #### [facility] [address] [place], [place], [id number] LIVER PROFILE Collected: 12/09/2017 Status: F Source: [place] 11:18 AM [facility] REPOSITORY TYPE CODE TESTS RESULT OUT [...] 0.06 Performed By: #### L500.2500, L500.3400 #### [facility] [address] [place], [place], [id number] URINALYSIS, EMPLOYEE Collected: 12/09/2017 Status: F Source: [place] 9:45 AM [facility] REPOSITORY TYPE CODE TESTS RESULT OUT [...] 25 ESTERASE Performed By: #### L400.0100 #### [facility] [address] [place], [place], [address] CBC W/DIFF, AUTOMATED Collected: 12/09/2017 Status: F Source: [place] 9:45 AM [facility] REPOSITORY TYPE CODE TESTS RESULT OUT [...] 1.43 Performed By: #### L100.0100, L100.0200 #### [facility] [address] [place], [place], [id number] CBC, EMPLOYEE Collected: 12/09/2017 Status: F Source: [place] 9:45 AM [facility] REPOSITORY TYPE CODE TESTS RESULT OUT OF RANGE REFERENCE UNITS LAB L100.2110 47-70 % Normal NEUT% 59.4 LAB L100.2210 19-41 % Normal LY% 28.6 LAB L100.2310 0-10 % High MONO% 11.0 LAB L100.2410 0-5 % Normal EO% 0.4 LAB L100.2510 0-1 % Normal BASO% 0.2 Performed By: #### L100.0100, L100.0200 #### [facility] [address] [place], [place], [address] NICOTINE URINE DRUG Collected: 12/09/2017 Status: F Source: [place] SCREEN 9:45 AM [facility] REPOSITORY TYPE CODE TESTS RESULT OUT [...] of Nicotine. Performed By: #### L505.6240 #### [facility] [address] [place], [address] EMPLOYEE PROFILE Collected: 12/09/2017 Status: F Source: [place] 9:45 AM [facility] REPOSITORY Order Comment: SEND REULTS TO ALSO [...] LDH 225 Performed By: #### L500.2900 #### [facility] [address] [place], [place], [address] CHEST WITH CONTRAST Observed: 12/08/2017 Status: F Source: [place] 10:34 AM [facility] REPOSITORY [facility] Imaging Services [address] [place] [address] Chest WITH Contrast MR#: [id number] Acct: [id number] Name: PEDRO LUIS WILCOX Rep #: [id number] : 1970 F 47 From: Darryl Ford MD PCP: Jacinto Person MD Status: REG CLI Study: Chest WITH Contrast Date of Exam: 12/08/17 Exam# [id number] Ordering Dr: Clifford Barakat DO STUDY: CT [...] Darryl Ford MD at 15:23 EDT Tel [phone], Service support , CC: Jacinto Person MD; Clifford Barakat DO Leader Tier: Signed ABDOMEN/PELVIS WITH Observed: 12/08/2017 Status: F Source: [place] CONTRAST 10:34 AM [facility] REPOSITORY [facility] Imaging Services [address] [place] [address] Abdomen/Pelvis WITH Contrast MR#: [id number] Acct: [id number] Name: PEDRO LUIS WILCOX Rep #: [id number] : 1970 F 47 From: Darryl Ford MD PCP: Jacinto Person MD Status: REG CLI Study: Abdomen/Pelvis WITH Contrast Date of Exam: 12/08/17 Exam# [id number] Ordering Dr: Clifford Barakat DO STUDY: CT [...] Darryl Ford MD at 15:26 EDT Tel [phone], Service support , CC: Jacinto Person MD; Clifford Barakat DO Leader Tier: Signed SOFT TISSUE NECK WITH Observed: 12/08/2017 Status: F Source: [place] CONTRAST 10:34 AM [facility] REPOSITORY [facility] Imaging Services [address] [place] [address] Soft Tissue Neck WITH Contrast MR#: [id number] Acct: [id number] Name: MARKLANEYPATTI Williamson Rep #: [id number] : 1970 F 47 From: Rylan Schmitz MD PCP: Jacinto Person MD Status: REG CLI Study: Soft Tissue Neck WITH Contrast Date of Exam: 12/08/17 Exam# [id number] Ordering Dr: Clifford Barakat DO STUDY: CT [...] FINDINGS: Normal bilateral parotid glands. Normal bilateral clinical pharmacy specialist spaces. Normal bilateral parapharyngeal spaces. Mild focal [...] to the superior vena cava outside the fjcop-ha-rpma There is mild mucoperiosteal thickening in the [...] CC: Jacinto Person MD; Clifford Barakat DO Leader Tier: Signed BONE SCAN WHOLE Observed: 12/06/2017 Status: F Source: [place] 8:43 AM [facility] REPOSITORY [facility] Imaging Services [address] [place] [address] Bone Scan Whole Body MR#: [id number] Acct: [id number] Name: PEDRO LUIS WILCOX Rep #: [id number] : 1970 F 47 From: Clay Real DO PCP: Jacinto Person MD Status: REG CLI Study: Bone Scan Whole Body Date of Exam: 12/06/17 Exam# [id number] Ordering Dr: Clifford Barakat DO CLINICAL: 47-year-old [...] CC: Jacinto Person MD; Clifford Barakat DO Leader Tier: Signed CBC W/DIFF, AUTOMATED Collected: 11/28/2017 Status: F Source: [place] 9:23 AM [facility] REPOSITORY TYPE CODE TESTS RESULT OUT [...] Lymph 1.60 Performed By: #### L100.0100 #### [facility] [address] [place], [address] BASIC METABOLIC Collected: 11/28/2017 Status: F Source: [place] PROFILE (BMP) 9:23 AM [facility] REPOSITORY TYPE CODE TESTS RESULT OUT [...] 10 Performed By: #### L500.2500, L500.3400 #### [facility] [address] [place], [place], [id number] LIVER PROFILE Collected: 11/28/2017 Status: F Source: [place] 9:23 AM [facility] REPOSITORY TYPE CODE TESTS RESULT OUT [...] 0.06 Performed By: #### L500.2500, L500.3400 #### [facility] [address] [place], [place], [address] CBC W/DIFF, AUTOMATED Collected: 11/22/2017 Status: F Source: [place] 6:37 AM [facility] REPOSITORY TYPE CODE TESTS RESULT OUT [...] Lymph 0.78 Performed By: #### L100.0100 #### [facility] [address] [place], [address] BASIC METABOLIC Collected: 11/22/2017 Status: F Source: [place] PRO[place] ([place]MP) 6:37 AM [facility] REPOSITORY TYPE CODE TESTS RESULT OUT [...] 7 Performed By: #### L500.2500, L500.3400 #### [facility] [address] [facility] [place], [place], [id number] LIVER PROFILE Collected: 11/22/2017 Status: F Source: [place] 6:37 AM [facility] REPOSITORY TYPE CODE TESTS RESULT OUT [...] 0.07 Performed By: #### L500.2500, L500.3400 #### [facility] [address] [place], [address] PROGRESS Observed: 11/21/2017 Status: COMPLETED Source: [place] 10:[address] [facility] REPOSITORY HNO ID: [id number] Author: Clifford Barakat Service: (none) Author Type: [...] stopped after cycle #2. Was seen by factory maintenance technician at . Biopsy showed myopathy, but etiology [...] specimen was negative for both ER and IL as well as HER- 2. I discussed the case with the pathologist today who told me that histologically/morphologically the specimen was consistent with her previous specimen of breast cancer. The pathologist will issue an addendum quantifying ER and IL 0 as well as HER-2 at 0. [...] poorly differentiated carcinoma. See comment. COMMENT Immunohistochemistry ([id number]) does not rule out a breast primary. There is focal perinodal extension of tumor. Clinical correlation is suggested. ANTIBODY / CLONE RESULT Block 1 Mammaglobin (31A5) negative GATA3 (L50-823) positive, rare, dim CK8 (43ayiuO38) positive Ki-67 (30-9) positive, moderate to high ER (6F11) negative 0% IL (1E2) negative 0% CK19 (A53-B/A2.26) positive Cyclin D1/BCL-1 (SP4) positive CEA (11-7/TF-3HB-1) negative SHELLI (E29) positive CK20 (KS20.8) negative Villin (CWWB1) negative RCC (PN-15) negative CA125 (OC125) positive Previous therapy for metastatic disease: 1) Cisplatin (+/- PARP inhibitor on trial). She underwent a CT scan of the neck, chest abdomen and pelvis at [facility] on 10/05/2017. The CT of the neck [...] Came off trial. She was seen at [facility] and did not qualify for the 2 clinical trials available due to her pre-existing diabetic neuropathy and history of type 1 diabetes. Current therapy: 1) [place]/carbo. Interim history: She tolerated her first cycle [...] No jaundice or rash. No petechiae. NEUROLOGIC: county extension agent II-XII are grossly intact. No focal motor weakness. MUSCULOSKELETAL: No muscle wasting. ASSESSMENT/PLAN: 1) pT1c (1.6 cm; grade 3; no AL invasion) pN0(sn) MX ER/IL negative HER2 non-amplified invasive ductal carcinoma of [...] DO CNOVSP Observed: 11/21/2017 Status: COMPLETED Source: [place] 9:30 AM [facility] [place] REPOSITORY Visit (SP) Office (HEMAWS) PEDRO LUIS WILCOX ([id number]) 1970 F Date Time Provider Department 11/21/17 [...] stopped after cycle #2. Was seen by factory maintenance technician at . Biopsy showed myopathy, but etiology [...] specimen was negative for both ER and IL as well as HER-2. I discussed the case with the pathologist today who told me that histologically/morphologically the specimen was consistent with her previous specimen of breast cancer. The pathologist will issue an addendum quantifying ER and IL 0 as well as HER-2 at 0. [...] poorly differentiated carcinoma. See comment. COMMENT Immunohistochemistry ([id number]) does not rule out a breast primary. There is focal perinodal extension of tumor. Clinical correlation is suggested. ANTIBODY / CLONE RESULT Block 1 Mammaglobin (31A5) negative GATA3 (L50-823) positive, rare, dim CK8 (26nfgbD82) positive Ki-67 (30-9) positive, moderate to high ER (6F11) negative 0% IL (1E2) negative 0% CK19 (A53-B/A2.26) positive Cyclin D1/BCL-1 (SP4) positive CEA (11-7/TF-3HB-1) negative SHELLI (E29) positive CK20 (KS20.8) negative Villin (CWWB1) negative RCC (PN-15) negative CA125 (OC125) positive Previous therapy for metastatic disease: 1) Cisplatin (+/- PARP inhibitor on trial). She underwent a CT scan of the neck, chest abdomen and pelvis at [facility] on 10/05/2017. The CT of the neck [...] Came off trial. She was seen at [facility] and did not qualify for the 2 clinical trials available due to her pre-existing diabetic neuropathy and history of type 1 diabetes. Current therapy: 1) [place]/carbo. Interim history: She tolerated her first cycle [...] No jaundice or rash. No petechiae. NEUROLOGIC: county extension agent II-XII are grossly intact. No focal motor weakness. MUSCULOSKELETAL: No muscle wasting. 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 HYPERLIPIDEMIA NEC/NOS [E78.5] INVALID FOR* FIBROMYALGIA [[id number]] INVALID FOR* Priority: Moderate OVERWEIGHT [E66.9] INVALID [...] Status:Closed by CLIFFORD BARAKAT DO on 11/21/17 [facility] Observed: 11/18/2017 Status: COMPLETED Source: [place] 1:[address] [facility] REPOSITORY Visit (SP) Office (DANYEL) PEDRO LUIS WILCOX ([id number]) 1970 F Date Time Provider Department 11/18/17 [...] Temp is now 99.4 F. Federica Reyes, JEYSON.FROZEN PIE MAKER 11/21/2017 8:51 AM Signed Chief Complaint Patient presents with: Established Patient HPI: Pedro Luis Wilcox is a 47 year old female who presents here today for complaints of fevers that began wed. evening. Pt. left work early and went to [facility] ED late Wed. night. Per [...] after cycle #2. ? Was seen by factory maintenance technician at . Biopsy showed myopathy, but etiology [...] specimen was negative for both ER and IL as well as HER-2. I discussed the case with the pathologist today who told me that histologically/morphologically the specimen was consistent with her previous specimen of breast cancer. The pathologist will issue an addendum quantifying ER and IL 0 as well as HER-2 at 0. [...] poorly differentiated carcinoma. See comment. COMMENT Immunohistochemistry ([id number]) does not rule out a breast primary. There is focal perinodal extension of tumor. Clinical correlation is suggested. ? ANTIBODY / CLONE RESULT Block 1 Mammaglobin (31A5) negative GATA3 (L50-823) positive, rare, dim CK8 (26rwisD23) positive Ki-67 (30-9) positive, moderate to high ER (6F11) negative 0% IL (1E2) negative 0% CK19 (A53-B/A2.26) positive Cyclin D1/BCL-1 (SP4) positive CEA (11-7/TF-3HB-1) negative SHELLI (E29) positive CK20 (KS20.8) negative Villin (CWWB1) negative RCC (PN-15) negative CA125 (OC125) positive ? Previous therapy for metastatic disease: 1) Cisplatin (+/- PARP inhibitor on trial). ? She underwent a CT scan of the neck, chest abdomen and pelvis at [facility] on 10/05/2017. The CT of the neck [...] off trial. ? She was seen at [facility] and did not qualify for the 2 clinical trials available due to her pre-existing diabetic neuropathy and history of type 1 diabetes. ? Current therapy:[place]/Carboplatin Last cycle gem/carbo on 11/08/17-at [facility]. Fevers started 11/16/17 Tmax 102. [...] grade 3; no AL invasion) pN0(sn) MX ER/IL negative HER2 non-amplified invasive ductal carcinoma of the right breast. Comprehensive BRCA 1 and 2 testing (scanned 12/05/2013) no mutation 2. FUO (fever of unknown origin) - ICD9: 780.60, ICD10: R50.9 - Reviewed [facility] ED notes/labs/CXR/urine-neg. Blood cultures pending. [...] who agrees with treatment plan. Asia Reyes APRN.FROZEN PIE MAKER Referring Provider: CLIFFORD BARAKAT [[id number]] Allergies As of Date: 11/18/2017 (No Known Allergies) Date Reviewed: 11/18/2017 Reviewed by: Asia (Data Management Engineer) Eric - Fully Assessed Reason for Visit: [...] More... HYPERLIPIDEMIA NEC/NOS [E78.5] INVALID FOR* FIBROMYALGIA [[id number]] INVALID FOR* Priority: Moderate OVERWEIGHT [E66.9] INVALID [...] 11/21/17 PROGRESS Observed: 11/18/2017 Status: COMPLETED Source: [place] 11:[address] [facility] REPOSITORY HNO ID: [id number] Author: Asia Reyes Service: (none) Author Type: Nurse Practitioner Type: Progress Notes Filed: 11/21/2017 8:51 AM Note Text: Chief Complaint Patient presents with: Established Patient HPI: Pedro Luis Wilcox is a 47 year old female who presents here today for complaints of fevers that began wed. evening. Pt. left work early and went to [facility] ED late Wed. night. Per [...] after cycle #2. ? Was seen by factory maintenance technician at . Biopsy showed myopathy, but etiology [...] specimen was negative for both ER and IL as well as HER- 2. I discussed the case with the pathologist today who told me that histologically/morphologically the specimen was consistent with her previous specimen of breast cancer. The pathologist will issue an addendum quantifying ER and IL 0 as well as HER-2 at 0. [...] poorly differentiated carcinoma. See comment. COMMENT Immunohistochemistry ([id number]) does not rule out a breast primary. There is focal perinodal extension of tumor. Clinical correlation is suggested. ? ANTIBODY / CLONE RESULT Block 1 Mammaglobin (31A5) negative GATA3 (L50-823) positive, rare, dim CK8 (33hryxZ57) positive Ki-67 (30-9) positive, moderate to high ER (6F11) negative 0% IL (1E2) negative 0% CK19 (A53-B/A2.26) positive Cyclin D1/BCL-1 (SP4) positive CEA (11-7/TF-3HB-1) negative SHELLI (E29) positive CK20 (KS20.8) negative Villin (CWWB1) negative RCC (PN-15) negative CA125 (OC125) positive ? Previous therapy for metastatic disease: 1) Cisplatin (+/- PARP inhibitor on trial). ? She underwent a CT scan of the neck, chest abdomen and pelvis at [facility] on 10/05/2017. The CT of the neck [...] off trial. ? She was seen at [facility] and did not qualify for the 2 clinical trials available due to her pre-existing diabetic neuropathy and history of type 1 diabetes. ? Current therapy:[place]/Carboplatin Last cycle gem/carbo on 11/08/17-at [facility]. Fevers started 11/16/17 Tmax 102. [...] grade 3; no AL invasion) pN0(sn) MX ER/IL negative HER2 non-amplified invasive ductal carcinoma of the right breast. Comprehensive BRCA 1 and 2 testing (scanned 12/05/2013) no mutation 2. FUO (fever of unknown origin) - ICD9: 780.60, ICD10: R50.9 - Reviewed [facility] ED notes/labs/CXR/urine-neg. Blood cultures pending. [...] who agrees with treatment plan. Asia Reyes APRN.[facility] EMERGENCY DEPARTMENT Observed: 11/16/2017 Status: F Source: [place] SUMMARY 11:40 PM [facility] REPOSITORY [facility] Medical Records Department [address] [place] [address] Emergency Department Summary 11/16/17 2102 MR#: [id number] Acct: [id number] Name: PEDRO LUIS WILCOX Rep #: [id number] : 1970 47 From: Mook Paige MD [...] your Primary Care Provider. Call [facility] ([phone]) or report to the closest Emergency Room. Call 911 if necessary. 11/16/17 2340 <Electronically signed by Mook Paige MD> Date Mook Paige MD Cosigner Signature (If Indicated): Date CC: Jacinto Person MD URINALYSIS, COMPLETE Collected: 11/16/2017 Status: F Source: [place] 10:00 PM [facility] REPOSITORY Order Comment: How was Urine Obtained? BANK VAULT CLERK TO SPECIFY TYPE CODE TESTS RESULT OUT [...] URINE SEEN Performed By: #### L400.0001 #### [facility] [address] [place], [address] Observed: 11/16/2017 Status: F Source: [place] CULTURE, BLOOD (WB) 9:17 PM [facility] [facility] No growth in 5 days. Performed By: #### M200.1000 #### [facility] [address] [place], [address] Observed: 11/16/2017 Status: F Source: [place] CULTURE, BLOOD (WB) 9:15 PM [facility] REPOSITORY No growth in 5 days. Performed By: #### M200.1000 #### [facility] [address] [place], [place], [address] CHEST 1 VIEW Observed: 11/16/2017 Status: F Source: [place] (PORTABLE) 9:02 PM [facility] REPOSITORY [facility] Imaging Services [address] [place] [address] Chest 1 View (Portable) MR#: [id number] Acct: [id number] Name: PEDRO LUIS WILCOX Rep #: [id number] : 1970 F 47 From: Elvira Foss MD PCP: Jacinto Person MD Status: REG ER Study: Chest 1 View (Portable) Date of Exam: 11/16/17 Exam# [id number] Ordering Dr: Mook Paige MD STUDY: X-RAY [...] CC: MOOK PAIGE MD; Jacinto Person MD Leader Tier: Signed CBC W/DIFF, AUTOMATED Collected: 11/16/2017 Status: F Source: [place] 9:01 PM [facility] REPOSITORY TYPE CODE TESTS RESULT OUT [...] Lymph 1.55 Performed By: #### L100.0100 #### [facility] [place], [address] COMPREHENSIVE METABOLIC Collected: 11/16/2017 Status: F Source: [facility] 9:01 PM [facility] REPOSITORY TYPE CODE TESTS RESULT OUT [...] GAP 7 Performed By: #### L500.4050 #### [facility] [address] [place], [address] CBC W/DIFF, AUTOMATED Collected: 11/14/2017 Status: F Source: [place] 10:46 AM [facility] REPOSITORY TYPE CODE TESTS RESULT OUT [...] Lymph 1.52 Performed By: #### L100.0100 #### [facility] [address] [place], [address] BASIC METABOLIC Collected: 11/14/2017 Status: F Source: [place] PROFILE (BMP) 10:46 AM [facility] REPOSITORY TYPE CODE TESTS RESULT OUT [...] 6 Performed By: #### L500.2500, L500.3400 #### [facility] [address] [place], [address] LIVER PROFILE Collected: 11/14/2017 Status: F Source: [place] 10:46 AM [facility] REPOSITORY TYPE CODE TESTS RESULT OUT [...] 0.10 Performed By: #### L500.2500, L500.3400 #### [facility] [address] [place], [address] VENOUS DUPLEX LOWER Observed: 11/09/2017 Status: F Source: [place] EXTREMITY 5:38 PM [facility] REPOSITORY [facility] Cardiovascular Services [address] [place] [address] Venous Duplex US, Unilateral 11/09/17 1359 MR#: [id number] Acct: [id number] Name: PEDRO LUIS WILCOX Rep #: [id number] : 1970 47 From: Clay Nieto MD [...] Date Dictated: 11/09/17 1359 Date Transcribed: 11/09/171736 Leader Tier: Signed CBC W/DIFF, AUTOMATED Collected: 11/07/2017 Status: F Source: [place] 10:07 AM [facility] REPOSITORY TYPE CODE TESTS RESULT OUT [...] Lymph 1.94 Performed By: #### L100.0100 #### [facility] [address] [facility] [place], [address] BASIC METABOLIC Collected: 11/07/2017 Status: F Source: [place] PROFILE ([facility]) 10:07 AM [facility] REPOSITORY TYPE CODE TESTS RESULT OUT [...] 6 Performed By: #### L500.2500, L500.3400 #### [facility] [address] [place], [place], [id number] LIVER PROFILE Collected: 11/07/2017 Status: F Source: [place] 10:07 AM [facility] REPOSITORY TYPE CODE TESTS RESULT OUT [...] 0.10 Performed By: #### L500.2500, L500.3400 #### [facility] [address] [place], [place], [address] CBC W/DIFF, AUTOMATED Collected: 10/31/2017 Status: F Source: [place] 11:35 AM [facility] REPOSITORY TYPE CODE TESTS RESULT OUT [...] Lymph 1.71 Performed By: #### L100.0100 #### [facility] [address] [facility] [place], [place], [address] BASIC METABOLIC Collected: 10/31/2017 Status: F Source: [place] PROFILE ([facility]) 11:35 AM [facility] REPOSITORY TYPE CODE TESTS RESULT OUT [...] 5 Performed By: #### L500.2500, L500.3400 #### [facility] [address] [place], [place], [address] LIVER PROFILE Collected: 10/31/2017 Status: F Source: [place] 11:35 AM [facility] REPOSITORY TYPE CODE TESTS RESULT OUT [...] 0.10 Performed By: #### L500.2500, L500.3400 #### [facility] [address] [place], [address] PROGRESS Observed: 10/27/2017 Status: COMPLETED Source: [place] 3:[address] [facility] REPOSITORY HNO ID: [id number] Author: Isha Servin (Sw) Service: (none) Author Type: Refrigeration Houseman Type: Progress Notes Filed: 10/27/2017 3:05 PM Note Text: SOCIAL WORK FOLLOW UP NOTE: [facility] Date of service: October 27, 2017 Pedro [...] before 5:00 or leave any information/needs with pet care attendant at meeting tomorrow and HILARIO will call patient Tuesday upon return. PLAN: Continue follow up as needed F/U APPOINTMENT: ANNAMARIA Nunez CNSW Observed: 10/27/2017 Status: COMPLETED Source: [place] 12:[address] [facility] REPOSITORY Social Work (DANYEL) PEDRO LUIS WILCOX ([id number]) 1970 F Date Time Provider Department 10/27/17 ISHA SERVIN (SW) During your visit today, we recorded the following information about you: ANNAMARIA Schroeder 10/27/2017 3:05 PM Signed SOCIAL WORK FOLLOW UP NOTE: [facility] Date of service: October 27, 2017 Pedro [...] before 5:00 or leave any information/needs with pet care attendant at meeting tomorrow and SW will call [...] More... HYPERLIPIDEMIA NEC/NOS [E78.5] INVALID FOR* FIBROMYALGIA [[id number]] INVALID FOR* Priority: Moderate OVERWEIGHT [E66.9] INVALID [...] 10/27/17 PROGRESS Observed: 10/25/2017 Status: COMPLETED Source: [place] 12:23 PM [facility] [place] REPOSITORY [facility] [employer] ID: [id number] Author: Clifford Barakat Service: (none) Author Type: [...] stopped after cycle #2. Was seen by factory maintenance technician at . Biopsy showed myopathy, but etiology [...] specimen was negative for both ER and IL as well as HER- 2. I discussed the case with the pathologist today who told me that histologically/morphologically the specimen was consistent with her previous specimen of breast cancer. The pathologist will issue an addendum quantifying ER and IL 0 as well as HER-2 at 0. [...] poorly differentiated carcinoma. See comment. COMMENT Immunohistochemistry ([id number]) does not rule out a breast primary. There is focal perinodal extension of tumor. Clinical correlation is suggested. ANTIBODY / CLONE RESULT Block 1 Mammaglobin (31A5) negative GATA3 (L50-823) positive, rare, dim CK8 (76aoxzT82) positive Ki-67 (30-9) positive, moderate to high ER (6F11) negative 0% IL (1E2) negative 0% CK19 (A53-B/A2.26) positive Cyclin D1/BCL-1 (SP4) positive CEA (11-7/TF-3HB-1) negative SHELLI (E29) positive CK20 (KS20.8) negative Villin (CWWB1) negative RCC (PN-15) negative CA125 (OC125) positive Previous therapy for metastatic disease: 1) Cisplatin (+/- PARP inhibitor on trial). She underwent a CT scan of the neck, chest abdomen and pelvis at [facility] on 10/05/2017. The CT of the neck [...] management. Interim history: She was seen at [facility] and did not qualify for the [...] No jaundice or rash. No petechiae. NEUROLOGIC: county extension agent II-XII are grossly intact. No focal motor weakness. MUSCULOSKELETAL: No muscle wasting. ASSESSMENT/PLAN: 1) pT1c (1.6 cm; grade 3; no AL invasion) pN0(sn) MX ER/IL negative HER2 non-amplified invasive ductal carcinoma of [...] DO CNOVSP Observed: 10/25/2017 Status: COMPLETED Source: [place] 10:[address] [facility] REPOSITORY Visit (SP) Office (DANYEL) PEDRO LUIS WILCOX ([id number]) 1970 F Date Time Provider Department 10/25/17 [...] stopped after cycle #2. Was seen by factory maintenance technician at . Biopsy showed myopathy, but etiology [...] specimen was negative for both ER and IL as well as HER-2. I discussed the case with the pathologist today who told me that histologically/morphologically the specimen was consistent with her previous specimen of breast cancer. The pathologist will issue an addendum quantifying ER and IL 0 as well as HER-2 at 0. [...] poorly differentiated carcinoma. See comment. COMMENT Immunohistochemistry ([id number]) does not rule out a breast primary. There is focal perinodal extension of tumor. Clinical correlation is suggested. ANTIBODY / CLONE RESULT Block 1 Mammaglobin (31A5) negative GATA3 (L50-823) positive, rare, dim CK8 (68badnR57) positive Ki-67 (30-9) positive, moderate to high ER (6F11) negative 0% IL (1E2) negative 0% CK19 (A53-B/A2.26) positive Cyclin D1/BCL-1 (SP4) positive CEA (11-7/TF-3HB-1) negative SHELLI (E29) positive CK20 (KS20.8) negative Villin (CWWB1) negative RCC (PN-15) negative CA125 (OC125) positive Previous therapy for metastatic disease: 1) Cisplatin (+/- PARP inhibitor on trial). She underwent a CT scan of the neck, chest abdomen and pelvis at [facility] on 10/05/2017. The CT of the neck [...] management. Interim history: She was seen at [facility] and did not qualify for the [...] No jaundice or rash. No petechiae. NEUROLOGIC: county extension agent II-XII are grossly intact. No focal motor weakness. MUSCULOSKELETAL: No muscle wasting. 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 HYPERLIPIDEMIA NEC/NOS [E78.5] INVALID FOR* FIBROMYALGIA [[id number]] INVALID FOR* Priority: Moderate OVERWEIGHT [E66.9] INVALID [...] 10/25/2017 Status: COMPLETED Source: JONES 12:[address] [facility] REPOSITORY Telephone (DANYEL) PEDRO LUIS WILCOX ([id number]) 1970 F Date Time Provider Department 10/25/17 CLIFFORD BARAKAT During your visit today, we recorded the following information about you: Roselyn Garcia Saurabh Psr 10/25/2017 2:00 PM Signed [facility] calling stating they are needing clinical notes on why patient is needing chemo, what type of chemo, chemocodes and any precertification if needed.. Please fax to [phone]. Federica Pimentel LPN 10/25/2017 2:08 PM Signed All lab and chemo orders faxed to [facility] infusion suite earlier. Orders and last office note faxed to number below as requested. [facility] is responsible for the precert, patient requesting to have service there. Federica Vásquez, RN, RN 10/28/2017 10:31 AM Signed Contacted [facility] to see if patient has been scheduled for chemo and was transferred to infusion nurse. Nurse confirmed that pre-certification has been completed but for future reference, [facility] is responsible for patient precert. We do not precert for outside referring doctors. Nurse stated she is faxing over forms that will need to be filled out prior to each infusion because their policies are changing. Fax number given to nurse. Nurse verified that she has orders for labs/chemo. Patient scheduled for 11/01 at 9:00am at [facility]. Patient informed during chemo ed [...] More... HYPERLIPIDEMIA NEC/NOS [E78.5] INVALID FOR* FIBROMYALGIA [[id number]] INVALID FOR* Priority: Moderate OVERWEIGHT [E66.9] INVALID [...] 10/25/17 PROGRESS Observed: 10/20/2017 Status: COMPLETED Source: [place] 4:48 PM [facility] REPOSITORY HNO ID: [id number] Author: Sawyer Toussaint Service: (none) Author Type: [...] woman with history of right sided ER-negative, IL-negative, HER2-negative Stage I breast cancer diagnosed in 2013 with subsequent metastatic recurrence diagnosed in 2016. She presents today for consideration of clinical trial options. Patient was initially found to have a right sided breast mass in 2013 at the time of a screening mammogram. At the time of biopsy on 09/13/13, she was noted to have an invasive ductal carcinoma, grade 3, ER-negative, IL-negative, HER2-negative. On 10/05/13, she underwent right partial [...] others on mom's side - Heart Father CAD/NE dx'd first age late 40's - Hypertension Father - pancreatic cancer [OTHER] Maternal Grandmother - Colon Cancer Other no 1st degree - Breast Cancer Other maternal cousin SOCIAL HISTORY: Patient and her live in the [place] She is not working and is a [...] woman with history of right sided ER-negative, IL-negative, HER2-negative Stage I breast cancer diagnosed in [...] [employer] JAVELIN PARP MEDLEY study open at [facility]. Unfortunately, patient does not qualify for the [...] MD CNOVSP Observed: 10/20/2017 Status: COMPLETED Source: [place] 2:30 PM [facility] REPOSITORY Visit (SP) Office (HEMCA4) PEDRO LUIS WILCOX ([id number]) 1970 F Date Time Provider Department 10/20/17 [...] No Does patient want to see a Machine Stone Polisher? No (yes to any of above refer [...] woman with history of right sided ER-negative, IL-negative, HER2-negative Stage I breast cancer diagnosed in 2013 with subsequent metastatic recurrence diagnosed in 2017. She presents today for consideration of clinical trial options. Patient was initially found to have a right sided breast mass in 2013 at the time of a screening mammogram. At the time of biopsy on 09/13/13, she was noted to have an invasive ductal carcinoma, grade 3, ER-negative, IL-negative, HER2-negative. On 10/05/13, she underwent right partial [...] others on mom's side - Heart Father CAD/NE dx'd first age late 40's - Hypertension Father - pancreatic cancer [OTHER] Maternal Grandmother - Colon Cancer Other no 1st degree - Breast Cancer Other maternal cousin SOCIAL HISTORY: Patient and her live in the [place] area. She is not working and is [...] woman with history of right sided ER-negative, IL-negative, HER2-negative Stage I breast cancer diagnosed in [...] Pf[employer] JAVELIN PARP MEDLEY study open at [facility]. Unfortunately, patient does not qualify for the [...] Clifford Barakat MD Referring Provider: CLIFFORD BARAKAT [[id number]] Allergies As of Date: 10/20/2017 (No Known [...] More... HYPERLIPIDEMIA NEC/NOS [E78.5] INVALID FOR* FIBROMYALGIA [[id number]] INVALID FOR* Priority: Moderate OVERWEIGHT [E66.9] INVALID [...] No Does patient want to see a Machine Stone Polisher? No (yes to any of above refer [...] 10/20/17 PROGRESS Observed: 10/11/2017 Status: COMPLETED Source: [place] 2:04 PM [facility] REPOSITORY HNO ID: [id number] Author: Clifford Barakat Service: (none) Author Type: [...] stopped after cycle #2. Was seen by factory maintenance technician at . Biopsy showed myopathy, but etiology [...] specimen was negative for both ER and IL as well as HER- 2. I discussed the case with the pathologist today who told me that histologically/morphologically the specimen was consistent with her previous specimen of breast cancer. The pathologist will issue an addendum quantifying ER and IL 0 as well as HER-2 at 0. [...] poorly differentiated carcinoma. See comment. COMMENT Immunohistochemistry ([id number]) does not rule out a breast primary. There is focal perinodal extension of tumor. Clinical correlation is suggested. ANTIBODY / CLONE RESULT Block 1 Mammaglobin (31A5) negative GATA3 (L50-823) positive, rare, dim CK8 (05jeclA46) positive Ki-67 (30-9) positive, moderate to high ER (6F11) negative 0% IL (1E2) negative 0% CK19 (A53-B/A2.26) positive Cyclin D1/BCL-1 (SP4) positive CEA (11-7/TF-3HB-1) negative SHELLI (E29) positive CK20 (KS20.8) negative Villin (CWWB1) negative RCC (PN-15) negative CA125 (OC125) positive Current therapy: 1) Cisplatin (+/- PARP inhibitor on trial). Presents for ongoing oncologic management. Interim history: She underwent a CT scan of the neck, chest abdomen and pelvis at [facility] on 10/05/2017. The CT of the neck [...] No jaundice or rash. No petechiae. NEUROLOGIC: county extension agent II-XII are grossly intact. No focal motor weakness. MUSCULOSKELETAL: No muscle wasting. ASSESSMENT/PLAN: 1) pT1c (1.6 cm; grade 3; no AL invasion) pN0(sn) MX ER/IL negative HER2 non-amplified invasive ductal carcinoma of [...] in particular the CASE 6115 trial at [facility]. Plan: -Referral to [facility] for opinion on clinical trial. -If she is not a candidate or chooses not to pursue clinical trial, then treatment with gemcitabine and carboplatin. Clifford Barakat DO CNOVSP Observed: 10/11/2017 Status: COMPLETED Source: MAN[place] 2:[address] [facility] REPOSITORY Visit (SP) Office (DANYEL) PEDRO LUIS WILCOX ([id number]) 1970 F Date Time Provider Department 10/11/17 [...] stopped after cycle #2. Was seen by factory maintenance technician at . Biopsy showed myopathy, but etiology [...] specimen was negative for both ER and IL as well as HER-2. I discussed the case with the pathologist today who told me that histologically/morphologically the specimen was consistent with her previous specimen of breast cancer. The pathologist will issue an addendum quantifying ER and IL 0 as well as HER-2 at 0. [...] poorly differentiated carcinoma. See comment. COMMENT Immunohistochemistry ([id number]) does not rule out a breast primary. There is focal perinodal extension of tumor. Clinical correlation is suggested. ANTIBODY / CLONE RESULT Block 1 Mammaglobin (31A5) negative GATA3 (L50-823) positive, rare, dim CK8 (42puznS94) positive Ki-67 (30-9) positive, moderate to high ER (6F11) negative 0% IL (1E2) negative 0% CK19 (A53-B/A2.26) positive Cyclin D1/BCL-1 (SP4) positive CEA (11-7/TF-3HB-1) negative SHELLI (E29) positive CK20 (KS20.8) negative Villin (CWWB1) negative RCC (PN-15) negative CA125 (OC125) positive Current therapy: 1) Cisplatin (+/- PARP inhibitor on trial). Presents for ongoing oncologic management. Interim history: She underwent a CT scan of the neck, chest abdomen and pelvis at [facility] on 10/05/2017. The CT of the neck [...] No jaundice or rash. No petechiae. NEUROLOGIC: county extension agent II-XII are grossly intact. No focal motor weakness. MUSCULOSKELETAL: No muscle wasting. ASSESSMENT/PLAN: 1) pT1c (1.6 cm; grade 3; no AL invasion) pN0(sn) MX ER/IL negative HER2 non-amplified invasive ductal carcinoma of [...] in particular the CASE 6115 trial at [facility]. Plan: -Referral to [facility] for opinion on clinical trial. -If she is not a candidate or chooses not to pursue clinical trial, then treatment with gemcitabine and carboplatin. Clifford Barakat DO Referring Provider: CLIFFORD BARAKAT [[id number]] Allergies As of Date: 10/11/2017 (No Known [...] More... HYPERLIPIDEMIA NEC/NOS [E78.5] INVALID FOR* FIBROMYALGIA [[id number]] INVALID FOR* Priority: Moderate OVERWEIGHT [E66.9] INVALID [...] 10/11/17 HOSP Observed: 10/11/2017 Status: COMPLETED Source: [place] 12:[address] [facility] REPOSITORY Patient Update (DANYEL) PEDRO LUIS WILCOX ([id number]) 1970 F Date Time Provider Department 10/11/17 [...] More... HYPERLIPIDEMIA NEC/NOS [E78.5] INVALID FOR* FIBROMYALGIA [[id number]] INVALID FOR* Priority: Moderate OVERWEIGHT [E66.9] INVALID [...] ECHOCARDIOGRAM COMPLETE Observed: 10/10/2017 Status: F Source: [place] 10:19 AM [facility] REPOSITORY [facility] Cardiovascular Services [address] [place] [address] Echo Complete 10/10/17 0809 MR#: [id number] Acct: [id number] Name: PEDRO LUIS WILCOX Clay Rep #: [id number] : 1970 47 From: Eric Blue MD [...] Dictated: 10/10/17 0809 Date Transcribed: 10/10/17 1019 Leader Tier: Signed GASTRIC EMPTYING Observed: 10/10/2017 Status: F Source: [place] STUDY 9:17 AM [facility] REPOSITORY [facility] Imaging Services [address] [place] [address] Gastric Emptying Study MR#: [id number] Acct: [id number] Name: PEDRO LUIS WILCOX Rep #: [id number] : 1970 F 47 From: Clay Real DO PCP: Jacinto Person MD Status: REG CLI Study: Gastric Emptying Study Date of Exam: 10/10/17 Exam# [id number] Ordering Dr: Jacinto ePrson MD CLINICAL: 47-year-old diabetic female with reported [...] Med Tech 38: 186, 2010). Electronically Signed: lCay Real DO at 23:46 EDT Tel , Service support , CC: Jacinto Person MD Leader Tier: Signed L/S SPINE MIN 4 Observed: 10/10/2017 Status: F Source: [place] VIEWS 8:41 AM [facility] Imaging Services [address] [place] [address] L/S Spine Min 4 Views MR#: [id number] Acct: [id number] Name: PEDRO LUIS WILCOX Rep #: [id number] : 1970 F 47 From: Jina Arciniega MD PCP: Jacinto Person MD Status: REG CLI Study: L/S Spine Min 4 Views Date of Exam: 10/10/17 Exam# [id number] Ordering Dr: Jacinto Person MD STUDY: X-RAY [...] Service support , CC: Jacinto Person MD Leader Tier: Signed BONE SCAN WHOLE Observed: 10/07/2017 Status: F Source: [place] BODY 10:04 AM [facility] Imaging Services [address] [place] [address] Bone Scan Whole Body MR#: [id number] Acct: [id number] Name: LANEY WILCOXPATTI Williamson Rep #: [id number] : 1970 F 47 From: Clay Real DO PCP: Jacinto Person MD Status: REG CLI Study: Bone Scan Whole Body Date of Exam: 10/07/17 Exam# [id number] Ordering Dr: Clifford Barakat DO CLINICAL: 47-year-old [...] CC: Jacinto Person MD; Clifford Barakat DO Leader Tier: Signed CHEST WITH CONTRAST Observed: 10/05/2017 Status: F Source: [place] 3:28 PM [facility] REPOSITORY [facility] Imaging Services [address] [place] [address] Chest WITH Contrast MR#: [id number] Acct: [id number] Name: PEDRO LUIS WILCOX Rep #: [id number] : 1970 F 47 From: Reed Samaniego MD PCP: Jacinto Person MD Status: REG CLI Study: Chest WITH Contrast Date of Exam: 10/05/17 Exam# [id number] Ordering Dr: Clifford Barakat DO STUDY: CT [...] CC: Jacinto Person MD; Clifford Barakat DO Leader Tier: Signed ABDOMEN/PELVIS WITH Observed: 10/05/2017 Status: F Source: [place] CONTRAST 3:20 PM [facility] REPOSITORY [facility] Imaging Services [address] [place] [address] Abdomen/Pelvis WITH Contrast MR#: [id number] Acct: [id number] Name: PEDRO LUIS WILCOX Rep #: [id number] : 1970 F 47 From: Reed Samaniego MD PCP: Jacinto Person MD Status: REG CLI Study: Abdomen/Pelvis WITH Contrast Date of Exam: 10/05/17 Exam# [id number] Ordering Dr: Clifford Barakat DO STUDY: CT [...] CC: Jacinto Person MD; Clifford Barakat DO Leader Tier: Signed SOFT TISSUE NECK WITH Observed: 10/05/2017 Status: F Source: [place] CONTRAST 3:00 PM [facility] REPOSITORY [facility] Imaging Services [address] [place] [address] Soft Tissue Neck WITH Contrast MR#: [id number] Acct: [id number] Name: PEDRO LUIS WILCOX Rep #: [id number] : 1970 F 47 From: Reed Samaniego MD PCP: Jacinto Person MD Status: REG CLI Study: Soft Tissue Neck WITH Contrast Date of Exam: 10/05/17 Exam# [id number] Ordering Dr: Clifford Barakat DO STUDY: CT [...] FINDINGS: Normal bilateral parotid glands. Normal bilateral clinical pharmacy specialist spaces. Normal bilateral parapharyngeal spaces. Normal bilateral [...] CC: Jacinto Person MD; Clifford Barakat DO Leader Tier: Signed PROGRESS Observed: 10/04/2017 Status: COMPLETED Source: [place] 12:44 PM [facility] REPOSITORY HNO ID: [id number] Author: Clifford Barakat Service: (none) Author Type: [...] stopped after cycle #2. Was seen by factory maintenance technician at . Biopsy showed myopathy, but etiology [...] specimen was negative for both ER and IL as well as HER- 2. I discussed the case with the pathologist today who told me that histologically/morphologically the specimen was consistent with her previous specimen of breast cancer. The pathologist will issue an addendum quantifying ER and IL 0 as well as HER-2 at 0. [...] poorly differentiated carcinoma. See comment. COMMENT Immunohistochemistry ([id number]) does not rule out a breast primary. There is focal perinodal extension of tumor. Clinical correlation is suggested. ANTIBODY / CLONE RESULT Block 1 Mammaglobin (31A5) negative GATA3 (L50-823) positive, rare, dim CK8 (56eoziX61) positive Ki-67 (30-9) positive, moderate to high ER (6F11) negative 0% IL (1E2) negative 0% CK19 (A53-B/A2.26) positive Cyclin [...] No jaundice or rash. No petechiae. NEUROLOGIC: county extension agent II-XII are grossly intact. No focal motor weakness. MUSCULOSKELETAL: No muscle wasting. ASSESSMENT/PLAN: 1) pT1c (1.6 cm; grade 3; no AL invasion) pN0(sn) MX ER/IL negative HER2 non-amplified invasive ductal carcinoma of [...] DO CNOVSP Observed: 10/04/2017 Status: COMPLETED Source: [place] 9:[address] [facility] REPOSITORY Visit (SP) Office (DANYEL) PEDRO LUIS WILCOX ([id number]) 1970 F Date Time Provider Department 10/04/17 9:30 AM CLIFFORD BARAKAT During your visit today, we recorded the following information about you: Temperature Pulse Blood pressure Weight 98.9 degrees 94/minute 155/67 92.5 kg Federica Leyla MORENO 10/04/2017 10:19 AM Signed Est study patient. Labs completed [facility] this morning. Federica Leyla MORENO [...] stopped after cycle #2. Was seen by factory maintenance technician at . Biopsy showed myopathy, but etiology [...] specimen was negative for both ER and IL as well as HER-2. I discussed the case with the pathologist today who told me that histologically/morphologically the specimen was consistent with her previous specimen of breast cancer. The pathologist will issue an addendum quantifying ER and IL 0 as well as HER-2 at 0. [...] poorly differentiated carcinoma. See comment. COMMENT Immunohistochemistry ([id number]) does not rule out a breast primary. There is focal perinodal extension of tumor. Clinical correlation is suggested. ANTIBODY / CLONE RESULT Block 1 Mammaglobin (31A5) negative GATA3 (L50-823) positive, rare, dim CK8 (80uxlfE39) positive Ki-67 (30-9) positive, moderate to high ER (6F11) negative 0% IL (1E2) negative 0% CK19 (A53-B/A2.26) positive Cyclin [...] No jaundice or rash. No petechiae. NEUROLOGIC: county extension agent II-XII are grossly intact. No focal motor weakness. MUSCULOSKELETAL: No muscle wasting. ASSESSMENT/PLAN: 1) pT1c (1.6 cm; grade 3; no AL invasion) pN0(sn) MX ER/IL negative HER2 non-amplified invasive ductal carcinoma of [...] Clifford Barakat DO Referring Provider: CLIFFORD BARAKAT [[id number]] Allergies As of Date: 10/04/2017 (No Known [...] Supraclavicular lymphadenopathy [R59.0] Order(s):NM BONE WHOLE BODY [[id number]] Order #: [id number] FUTURE CT NECK SOFT TISSUE W IVCON [[id number]] Order #: [id number] FUTURE iv contrast (will be provided with [...] More... HYPERLIPIDEMIA NEC/NOS [E78.5] INVALID FOR* FIBROMYALGIA [[id number]] INVALID FOR* Priority: Moderate OVERWEIGHT [E66.9] INVALID [...] Status: Signed Est study patient. Labs completed [facility] this morning. Federica Pimentel LPN Encounter Status:Closed by CLIFFORD BARAKAT DO on 10/04/17 CBC W/DIFF, AUTOMATED Collected: 10/04/2017 Status: F Source: [place] 8:18 AM [facility] REPOSITORY TYPE CODE TESTS RESULT OUT [...] Lymph 1.74 Performed By: #### L100.0100 #### [facility] [address] [place], [address] COMPREHENSIVE METABOLIC Collected: 10/04/2017 Status: F Source: [place] [facility] 8:18 AM [facility] REPOSITORY TYPE CODE TESTS RESULT OUT [...] 5 Performed By: #### L500.4050, L501.5200 #### [facility] [address] [place], [address] MAGNESIUM Collected: 10/04/2017 Status: F Source: [place] 8:18 AM [facility] REPOSITORY TYPE CODE TESTS RESULT OUT OF RANGE REFERENCE UNITS LAB L501.5200 1.6-2.6 mg/dL Normal MG 1.7 Performed By: #### L500.4050, L501.5200 #### [facility] [address] [place], [address] HOSP Observed: 10/04/2017 Status: COMPLETED Source: [place] 12:[address] [facility] REPOSITORY Patient Update (DANYEL) PEDRO LUIS WILCOX ([id number]) 1970 F Date Time Provider Department 10/04/17 [...] Possible related. 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 She just feels tired. Neuropathy in fingers, denies.? And, no change in lower extremities that is chronic for patient. Arthralgia, denies. ?? Epigastric pain, denies this past cycle. Breathing is better. She has re-scheduled her Echo twice and is scheduled for 10/10/17 at [facility]. She states that she saw Dr. Person and he thinks it is Costochondritis. He has given her some exercises to do. This is all unrelated to study drug per Dr. Barakat. He does still want patient to get Echo. ?? Labs earlier today drawn at [facility]: CBC Hgb 10.6, grade 1, [...] up Bone Scan with CT's C/A/P to [facility] and add a CT Neck. Patient will [...] More... HYPERLIPIDEMIA NEC/NOS [E78.5] INVALID FOR* FIBROMYALGIA [[id number]] INVALID FOR* Priority: Moderate OVERWEIGHT [E66.9] INVALID [...] Possible related. 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 She just feels tired. Neuropathy in fingers, denies.? And, no change in lower extremities that is chronic for patient. Arthralgia, denies. ?? Epigastric pain, denies this past cycle. Breathing is better. She has re-scheduled her Echo twice and is scheduled for 10/10/17 at [facility]. She states that she saw Dr. Person and he thinks it is Costochondritis. He has given her some exercises to do. This is all unrelated to study drug per Dr. Barakat. He does still want patient to get Echo. ?? Labs earlier today drawn at [facility]: CBC Hgb 10.6, grade 1, [...] up Bone Scan with CT's C/A/P to [facility] and add a CT Neck. Patient will [...] 10/04/17 CNPN Observed: 10/04/2017 Status: COMPLETED Source: [place] 12:[address] [facility] REPOSITORY Telephone (DANYEL) PEDRO LUIS WILCOX ([id number]) 1970 F Date Time Provider Department 10/04/17 CLIFFORD BARAKAT During your visit today, we recorded the following information about you: Estrella Watkins PSR 10/04/2017 11:[address] Barakat's OV today (10/04/17), this PSR contacted [facility] and rescheduled PT's CT for the earliest date of 10/13 @ 1:00 PM with a 4 hour fast and added the neck CT to the existing order. Additionally scheduled the whole body bone scan at [facility] on 10/06 with an 8:00 [...] More... HYPERLIPIDEMIA NEC/NOS [E78.5] INVALID FOR* FIBROMYALGIA [[id number]] INVALID FOR* Priority: Moderate OVERWEIGHT [E66.9] INVALID [...] 10/04/17 PROGRESS Observed: 09/13/2017 Status: COMPLETED Source: [place] 12:[address] [facility] REPOSITORY HNO ID: [id number] Author: Clifford Barakat Service: (none) Author Type: [...] stopped after cycle #2. Was seen by factory maintenance technician at . Biopsy showed myopathy, but etiology [...] specimen was negative for both ER and IL as well as HER- 2. I discussed the case with the pathologist today who told me that histologically/morphologically the specimen was consistent with her previous specimen of breast cancer. The pathologist will issue an addendum quantifying ER and IL 0 as well as HER-2 at 0. [...] poorly differentiated carcinoma. See comment. COMMENT Immunohistochemistry ([id number]) does not rule out a breast primary. There is focal perinodal extension of tumor. Clinical correlation is suggested. ANTIBODY / CLONE RESULT Block 1 Mammaglobin (31A5) negative GATA3 (L50-823) positive, rare, dim CK8 (66vhflL39) positive Ki-67 (30-9) positive, moderate to high ER (6F11) negative 0% IL (1E2) negative 0% CK19 (A53-B/A2.26) positive Cyclin [...] No jaundice or rash. No petechiae. NEUROLOGIC: county extension agent II-XII are grossly intact. No focal motor weakness. MUSCULOSKELETAL: No muscle wasting. ASSESSMENT/PLAN: 1) pT1c (1.6 cm; grade 3; no AL invasion) pN0(sn) MX ER/IL negative HER2 non-amplified invasive ductal carcinoma of [...] also performed. She was seen by a pathology manager and was given reassurance that there [...] DO CNOVSP Observed: 09/13/2017 Status: COMPLETED Source: [place] 11:[address] [facility] REPOSITORY Visit (SP) Office (DANYEL) PEDRO LUIS WILCOX ([id number]) 1970 F Date Time Provider Department 09/13/17 [...] stopped after cycle #2. Was seen by factory maintenance technician at . Biopsy showed myopathy, but etiology [...] specimen was negative for both ER and IL as well as HER-2. I discussed the case with the pathologist today who told me that histologically/morphologically the specimen was consistent with her previous specimen of breast cancer. The pathologist will issue an addendum quantifying ER and IL 0 as well as HER-2 at 0. [...] poorly differentiated carcinoma. See comment. COMMENT Immunohistochemistry ([id number]) does not rule out a breast primary. There is focal perinodal extension of tumor. Clinical correlation is suggested. ANTIBODY / CLONE RESULT Block 1 Mammaglobin (31A5) negative GATA3 (L50-823) positive, rare, dim CK8 (97wsutI96) positive Ki-67 (30-9) positive, moderate to high ER (6F11) negative 0% IL (1E2) negative 0% CK19 (A53-B/A2.26) positive Cyclin [...] No jaundice or rash. No petechiae. NEUROLOGIC: county extension agent II-XII are grossly intact. No focal motor weakness. MUSCULOSKELETAL: No muscle wasting. ASSESSMENT/PLAN: 1) pT1c (1.6 cm; grade 3; no AL invasion) pN0(sn) MX ER/IL negative HER2 non-amplified invasive ductal carcinoma of [...] also performed. She was seen by a pathology manager and was given reassurance that there [...] Clifford Barakat DO Referring Provider: CLIFFORD BARAKAT [[id number]] Allergies As of Date: 09/13/2017 (No Known Allergies) Date Reviewed: 09/13/2017 Reviewed by: Orlando Lanier (Template Storage Clerk) TIFFANIE Langston - Fully Assessed Reason for Visit: Established Patient [175] Primary Visit Diagnosis:Malignant neoplasm of upper-outer quadrant of right breast in female, estrogen receptor negative (HCC) [C50.411, Z17.1] Other Visit Diagnoses:Malignant neoplasm of right breast in female, estrogen receptor negative, unspecified site of breast (HCC) [C50.911, Z17.1] Dyspnea and respiratory abnormalities [R06.00, R06.89] Examination of participant in clinical trial [Z00.6] Order(s):ECHO [[id number]] Order #: [id number]: 1 FUTURE HEMONC COMMUNICATION ORDER [[id number]] Order #: [id number]: 1 CT ABD/PEL W IVCON [[id number]] Order #: [id number] FUTURE CT CHEST W IVCON [[id number]] Order #: [id number] FUTURE [] iv contrast (will be provided [...] More... HYPERLIPIDEMIA NEC/NOS [E78.5] INVALID FOR* FIBROMYALGIA [[id number]] INVALID FOR* Priority: Moderate OVERWEIGHT [E66.9] INVALID [...] Source: [place] 6:31 AM [facility] REPOSITORY TYPE CODE TESTS RESULT OUT [...] Lymph 1.88 Performed By: #### L100.0100 #### [facility] [address] [place], [place], [address] COMPREHENSIVE METABOLIC Collected: 09/13/2017 Status: F Source: [facility] 6:31 AM [facility] REPOSITORY TYPE CODE TESTS RESULT OUT [...] 8 Performed By: #### L500.4050, L501.5200 #### [facility] [address] [place], [address] MAGNESIUM Collected: 09/13/2017 Status: F Source: [place] 6:31 AM [facility] REPOSITORY TYPE CODE TESTS RESULT OUT OF RANGE REFERENCE UNITS LAB L501.5200 1.6-2.6 mg/dL Low MG 1.5 Performed By: #### L500.4050, L501.5200 #### [facility] [address] [place], [address] HOSP Observed: 09/13/2017 Status: COMPLETED Source: [place] 12:[address] [facility] REPOSITORY Patient Update (DANYEL) PEDRO LUIS WILCOX ([id number]) 1970 F Date Time Provider Department 09/13/17 [...] Unrelated. ?? Labs earlier today drawn at [facility]: CBC Hgb 11.4, grade 1, [...] taken her dose for this am. ? [place] order-- Dr. Roshni stephenson with patient to [...] in 3 weeks with labs prior at [facility] for Cycle #12. Patient agreeable [...] More... HYPERLIPIDEMIA NEC/NOS [E78.5] INVALID FOR* FIBROMYALGIA [[id number]] INVALID FOR* Priority: Moderate OVERWEIGHT [E66.9] INVALID [...] Unrelated. ?? Labs earlier today drawn at [facility]: CBC Hgb 11.4, grade 1, [...] taken her dose for this am. ? [place] order-- Dr. Roshni stephenson with patient to [...] in 3 weeks with labs prior at [facility] for Cycle #12. Patient agreeable with this plan. She has contact numbers if she needs anything in the interim. Emre Mcdonough RN Encounter Status:Closed by EMRE MCDONOUGH on 09/20/17 ONCOLOGY HISTORY AND Observed: 09/07/2017 Status: F Source: [place] PHYSICAL 4:48 PM [facility] REPOSITORY [facility] Medical Records Department [address] [place] [address] History and Physical 09/07/17 1529 MR#: [id number] Acct: [id number] Name: PEDRO LUIS WILCOX Rep #: [id number] : 1970 47 From: Garcia Reed MD PCP: Raza VELAZQUEZ,Jacinto Status: DIS RCR Y Location: [facility] Subjective Date of Service:: 09/07/17 Chief Complaint: Wants second opinion about breast cancer management. History of Present Illness: Old records reviewed. 47y.o.woman diagnosed with right breast cancer stage IA in August 2013. Needle biopsy on September 13, 2013 showed invasive ductal carcinoma, ER/IL negative, Her2 2+ by IHC, negative by [...] nodes positive with metastatic poorly differentiated carcinoma, ER/IL/Her2 negative. She started therapy on a clinical trial involving Cisplatin with PARP inhibitor or placebo. Cisplatin is now discontinued and is tablets Abt-888 or placebo 100mg 4tabs bid x 21 days. She recently had restaging studies done and wants to know what to do. Power of Underground Miner: No Living Will: No Health History: Past Medical History Cancer: Breast cancer Past Medical History (Last Updated 09/07/17 @ 14:07 by Deysi Bautista) [place] node (Acute) Past Surgical History (Last Updated [...] drinking: Has the patient needed an eye deck cadet in the mornings: Comments: occasionaly Review of [...] Chronic Code Visit Office Visits / Consults: 52975 OV L5 New 09/07/17 1648 <Electronically signed by Garcia Reed MD> Date Garcia Reed MD Cosigner Signature: Date (if applicable) CC: Jacinto Person MD; Garcia Reed MD Signed 12 LEAD ELECTROCARDIOGRAM Observed: 09/02/2017 Status: F Source: [place] 2:48 PM [facility] REPOSITORY [facility] Cardiovascular Services [address] [place] [address] 12 Lead EKG 08/29/17 1213 MR#: [id number] Acct: [id number] Name: PEDRO LUIS WILCOX Rep #: [id number] : 1970 47 From: Eric Blue MD [...] ECG Confirmed by ERIC BLUE MD ([id number]), desk editor MESSI VIVAR ([id number]) on 09/02/2017 2:48:24 PM Referred By: SHELBY/GRECIA Confirmed By:ERIC BLUE MD 09/02/17 1448 Date Eric Blue MD CC: Johnny Santos MD; Jacinto Person MD Signed EMERGENCY DEPARTMENT Observed: 08/29/2017 Status: F Source: [place] SUMMARY 3:51 PM [facility] REPOSITORY [facility] Medical Records Department [address] [place] [address] Emergency Department Summary 08/29/17 1207 MR#: [id number] Acct: [id number] Name: PEDRO LUIS WILCOX Rep #: [id number] : 1970 47 From: Johnny Santos MD [...] 1. Confusion--resolved This note was generated with AlloCureation software. It may contain incorrect words, spelling, [...] problems, contact your Primary Care Provider. Call [facility] ([phone]) or report to the closest Emergency Room. Call 911 if necessary. 08/29/17 1551 <Electronically signed by Johnny Santos MD> Date Johnny Santos MD Cosigner Signature (If Indicated): Date CC: Jacinto Person MD DISCHARGE INSTRUCTION Observed: 08/29/2017 Status: F Source: [place] 3:51 PM [facility] REPOSITORY [facility] Medical Records Department [address] [place] [address] Discharge Instruction 08/29/17 1526 MR#: [id number] Acct: [id number] Name: PEDRO LUIS WILCOX Rep #: [id number] : 1970 47 From: Johnny Santos MD [...] your Primary Care Provider. Call [facility] ([phone]) or report to the closest Emergency Room. Call 911 if necessary. 08/29/17 1551 <Electronically signed by Johnny Santos MD> Date Johnny Santos MD Cosigner Signature (If Indicated): Date CC: Jacinto Person MD BRAIN/HEAD WITHOUT Observed: 08/29/2017 Status: F Source: [place] CONTRAST 12:03 PM [facility] REPOSITORY [facility] Imaging Services [address] [place] [address] Brain/Head without Contrast MR#: [id number] Acct: [id number] Name: PEDRO LUIS WILCOX Rep #: [id number] : 1970 F 47 From: Darryl Ford MD PCP: Jacinto Person MD Status: REG ER Study: Brain/Head without Contrast Date of Exam: 08/29/17 Exam# [id number] Ordering Dr: Johnny Santos MD STUDY: CT [...] Darryl Ford MD at 12:59 EDT Tel [phone], Service support , CC: Johnny Santos MD; Jacinto Person MD Leader Tier: Signed CHEST 1 VIEW Observed: 08/29/2017 Status: F Source: [place] 12:03 PM [facility] REPOSITORY [facility] Imaging Services [address] [place] [address] Chest 1 View MR#: [id number] Acct: [id number] Name: PEDRO LUIS WILCOX Rep #: [id number] : 1970 F 47 From: Darryl Ford MD PCP: Jacinto Person MD Status: REG ER Study: Chest 1 View Date of Exam: 08/29/17 Exam# [id number] Ordering Dr: Johnny Santos MD STUDY: X-RAY [...] Darryl Ford MD at 13:23 EDT Tel [phone], Service support , CC: Johnny Santos MD; Jacinto Person MD Leader Tier: Signed BEDSIDE GLUCOSE Collected: 08/29/2017 Status: F Source: [place] 12:02 PM [facility] REPOSITORY TYPE CODE TESTS RESULT OUT OF REFERENCE UNITS RANGE LAB L501.080 70-110 mg/dL High BEDSIDE GLU 156 Result Comment: MANAGEMENT OF PATIENT CARE PER NURSING PROTOCOL Performed By: #### L501.080 #### [facility] Point of Care [facility] [address] [place], [place] [address] CBC W/DIFF, AUTOMATED Collected: 08/29/2017 Status: F Source: [place] 11:58 AM [facility] REPOSITORY TYPE CODE TESTS RESULT OUT [...] Lymph 1.61 Performed By: #### L100.0100 #### [facility] [address] [place], [address] BASIC METABOLIC Collected: 08/29/2017 Status: F Source: [place] PROFILE ([facility]) 11:58 AM [facility] REPOSITORY TYPE CODE TESTS RESULT OUT [...] 8 Performed By: #### L500.2500, L501.4010 #### [facility] [address] [place], [place], [address] TROPONIN-I Collected: 08/29/2017 Status: F Source: [place] 11:58 AM [facility] REPOSITORY TYPE CODE TESTS RESULT OUT OF RANGE REFERENCE UNITS LAB L501.4010 <0.045 ng/mL Normal < 0.015 TROPONIN-I Result Comment: TROPONIN-I EXPECTED VALUES <0.045 Negative 0.045 - 0.590 Consistent with Cardiac Damage > OR = 0.600 Critical Value Not every elevated troponin is indicative of NE. These values should be used with clinical judgement in examining the patient's clinical picture for diagnosis. To establish a diagnosis of NE versus myocardial injury, there must be a demonstrated rise and/or fall in the troponin values, in addition to ischemic symptoms, EKG changes, new regional wall motion abnormality, and/or angiographical evidence. PLEASE NOTE: REFERENCE RANGES EDITED 17 Performed By: #### L500.2500, L501.4010 #### [facility] [address] [place], [place], [address] PROTHROMBIN TIME W/INR Collected: 08/29/2017 Status: F Source: [place] 11:58 AM [facility] REPOSITORY TYPE CODE TESTS RESULT OUT OF RANGE REFERENCE UNITS LAB L300.4150 11.7-14.9 SECONDS Normal PROTIME 13.0 LAB L300.4200 Normal INR 1.0 Performed By: #### L300.3900, L300.4310 #### [facility] [address] [place], [address] PARTIAL THROMBOPLAST Collected: 08/29/2017 Status: F Source: [place] TIME 11:58 AM [facility] REPOSITORY TYPE CODE TESTS RESULT OUT OF RANGE REFERENCE UNITS LAB L300.4310 24.1-36.2 Seconds Normal PTT 28.6 Performed By: #### L300.3900, L300.4310 #### [facility] [address] [place], [address] GLUCOSE Collected: 08/29/2017 Status: F Source: [place] 11:10 AM [facility] REPOSITORY Order Comment: FAST GLUCOSE TYPE CODE TESTS RESULT OUT OF RANGE REFERENCE UNITS LAB L501.0100 74-106 mg/dL High GLU 140 Result Comment: Fasting Glucose result greater than or equal to 126 mg/dL suggests DIABETES MELLITUS per A.D.A. criteria. Please note revised GLUCOSE reference range effective 2017. Performed By: #### L501.0100 #### [facility] [address] [place], [address] PET/CT TUMOR BASE Observed: 08/29/2017 Status: F Source: [place] -THIGH SUBS 5:38 AM [facility] REPOSITORY [facility] Imaging Services [address] [place] [address] PET/CT Tumor Base -Thigh Subs MR#: [id number] Acct: [id number] Name: PEDRO LUIS WILCOX Rep #: [id number] : 1970 F 47 From: Clay Real DO PCP: Jacinto Person MD Status: REG CLI Study: PET/CT Tumor Base -Thigh Subs Date of Exam: 08/29/17 Exam# [id number] Ordering Dr: Clifford Barakat DO ADDENDUM by [...] are not apparent on the current examination. Bayd-O-Lufh-MediPort placement is noted. The prior defined morphologic-anatomic [...] are not apparent on the current examination. Njph-M-Rset-MediPort placement is noted. The prior defined morphologic-anatomic [...] CC: Jacinto Person MD; Clifford Barakat DO Leader Tier: Signed PROGRESS Observed: 08/23/2017 Status: COMPLETED Source: [place] 9:[address] [facility] REPOSITORY O ID: [id number] Author: Clifford Barakat Service: (none) Author Type: [...] stopped after cycle #2. Was seen by factory maintenance technician at . Biopsy showed myopathy, but etiology [...] specimen was negative for both ER and IL as well as HER- 2. I discussed the case with the pathologist today who told me that histologically/morphologically the specimen was consistent with her previous specimen of breast cancer. The pathologist will issue an addendum quantifying ER and IL 0 as well as HER-2 at 0. [...] poorly differentiated carcinoma. See comment. COMMENT Immunohistochemistry ([id number]) does not rule out a breast primary. There is focal perinodal extension of tumor. Clinical correlation is suggested. ANTIBODY / CLONE RESULT Block 1 Mammaglobin (31A5) negative GATA3 (L50-823) positive, rare, dim CK8 (44xpbqG80) positive Ki-67 (30-9) positive, moderate to high ER (6F11) negative 0% IL (1E2) negative 0% CK19 (A53-B/A2.26) positive Cyclin [...] No jaundice or rash. No petechiae. NEUROLOGIC: county extension agent II-XII are grossly intact. No focal motor weakness. MUSCULOSKELETAL: No muscle wasting. ASSESSMENT/PLAN: 1) pT1c (1.6 cm; grade 3; no AL invasion) pN0(sn) MX ER/IL negative HER2 non-amplified invasive ductal carcinoma of [...] drug for now. -PET next Tuesday at [facility]. Clifford Barakat DO CNOVSP Observed: 08/23/2017 Status: COMPLETED Source: [place] 8:[address] [facility] REPOSITORY Visit (SP) Office (DANYEL) PEDRO LUIS WILCOX ([id number]) 1970 F Date Time Provider Department 08/23/17 [...] stopped after cycle #2. Was seen by factory maintenance technician at . Biopsy showed myopathy, but etiology [...] specimen was negative for both ER and IL as well as HER-2. I discussed the case with the pathologist today who told me that histologically/morphologically the specimen was consistent with her previous specimen of breast cancer. The pathologist will issue an addendum quantifying ER and IL 0 as well as HER-2 at 0. [...] poorly differentiated carcinoma. See comment. COMMENT Immunohistochemistry ([id number]) does not rule out a breast primary. There is focal perinodal extension of tumor. Clinical correlation is suggested. ANTIBODY / CLONE RESULT Block 1 Mammaglobin (31A5) negative GATA3 (L50-823) positive, rare, dim CK8 (96yvkaQ64) positive Ki-67 (30-9) positive, moderate to high ER (6F11) negative 0% IL (1E2) negative 0% CK19 (A53-B/A2.26) positive Cyclin [...] No jaundice or rash. No petechiae. NEUROLOGIC: county extension agent II-XII are grossly intact. No focal motor weakness. MUSCULOSKELETAL: No muscle wasting. ASSESSMENT/PLAN: 1) pT1c (1.6 cm; grade 3; no AL invasion) pN0(sn) MX ER/IL negative HER2 non-amplified invasive ductal carcinoma of [...] drug for now. -PET next Tuesday at [facility]. Clifford Barakat DO Referring Provider: CLIFFORD BARAKAT [[id number]] Allergies As of Date: 08/23/2017 (No Known Allergies) Date Reviewed: 08/23/2017 Reviewed by: Veronica Harris Ma - Fully Assessed Reason for Visit: Established Patient [175] Primary Visit Diagnosis:Malignant neoplasm of upper-outer quadrant of right breast in female, estrogen receptor negative (HCC) [C50.411, Z17.1] Order(s):[facility] [[id number]] Order #: [id number]: 1 [] INV ABT-888 OR [place] (INV [...] More... HYPERLIPIDEMIA NEC/NOS [E78.5] INVALID FOR* FIBROMYALGIA [NBF1619] INVALID FOR* Priority: Moderate OVERWEIGHT [E66.9] INVALID [...] Source: [place] 7:30 AM [facility] REPOSITORY Order Comment: MEDOUT/PORT DRAW TYPE CODE [...] Lymph 2.00 Performed By: #### L100.0100 #### [facility] [address] [place], [address] COMPREHENSIVE METABOLIC Collected: 08/23/2017 Status: F Source: [place] [facility] 7:30 AM [facility] REPOSITORY Order Comment: MEDOUT/PORT DRAW TYPE CODE [...] 7 Performed By: #### L500.4050, L501.5200 #### [facility] [address] [place], [address] MAGNESIUM Collected: 08/23/2017 Status: F Source: [place] 7:30 AM [facility] REPOSITORY Order Comment: MEDOUT/PORT DRAW TYPE CODE TESTS RESULT OUT OF RANGE REFERENCE UNITS LAB L501.5200 1.6-2.6 mg/dL Low MG 1.5 Performed By: #### L500.4050, L501.5200 #### [facility] [address] [place], [address] HOSP Observed: 08/23/2017 Status: COMPLETED Source: [place] 12:[address] [facility] REPOSITORY Patient Update (DANYEL) PEDRO LUIS WILCOX ([id number]) 1970 F Date Time Provider Department 08/23/17 [...] ok. ?? Labs earlier today drawn at [facility]: CBC Hgb 11.1, grade 1, [...] patient to have a PET scan. ? [place] order-- The patient was given a new [...] in 3 weeks with labs prior at [facility] for Cycle #11. Patient agreeable [...] More... HYPERLIPIDEMIA NEC/NOS [E78.5] INVALID FOR* FIBROMYALGIA [[id number]] INVALID FOR* Priority: Moderate OVERWEIGHT [E66.9] INVALID [...] ok. ?? Labs earlier today drawn at [facility]: CBC Hgb 11.1, grade 1, [...] patient to have a PET scan. ? [place] order-- The patient was given a new [...] in 3 weeks with labs prior at [facility] for Cycle #11. Patient agreeable with this plan. She has contact numbers if she needs anything in the interim. ? Emre Mcdonough RN Encounter Status:Closed by EMRE MCDONOUGH on 08/30/17 ABDOMEN/PELVIS WITH Observed: 08/16/2017 Status: F Source: [place] CONTRAST 12:59 PM [facility] REPOSITORY [facility] Imaging Services [address] [place] [address] Abdomen/Pelvis WITH Contrast MR#: [id number] Acct: [id number] Name: PEDRO LUIS WILCOX Rep #: [id number] : 1970 F 47 From: Sintia Balderas MD PCP: Jacinto Person MD Status: REG CLI Study: Abdomen/Pelvis WITH Contrast Date of Exam: 08/16/17 Exam# [id number] Ordering Dr: Clifford Barakat DO STUDY: CT [...] CC: Jacinto Person MD; Clifford Barakat DO Leader Tier: Signed CHEST WITH CONTRAST Observed: 08/16/2017 Status: F Source: [place] 12:56 PM [facility] REPOSITORY [facility] Services [address] [place] [address] Chest WITH Contrast MR#: [id number] Acct: [id number] Name: PEDRO LUIS WILCOX Rep #: [id number] : 1970 F 47 From: Sintia Balderas MD PCP: Jacinto Person MD Status: REG CLI Study: Chest WITH Contrast Date of Exam: 08/16/17 Exam# [id number] Ordering Dr: Clifford Barakat DO STUDY: CT [...] CC: Jacinto Person MD; Clifford Barakat DO Leader Tier: Signed BONE SCAN WHOLE Observed: 08/16/2017 Status: F Source: [place] B[place] 7:59 AM [facility] REPOSITORY [facility] Services [address] [place] [address] Bone Scan Whole Body MR#: [id number] Acct: [id number] Name: PEDRO LUIS WILCOX Rep #: [id number] : 1970 F 47 From: Clay Real DO PCP: Jacinto Person MD Status: REG CLI Study: Bone Scan Whole Body Date of Exam: 08/16/17 Exam# [id number] Ordering Dr: Clifford Barakat DO CLINICAL: 47-year-old [...] CC: Jacinto Person MD; Clifford Barakat DO Leader Tier: Signed PROGRESS Observed: 08/02/2017 Status: COMPLETED Source: [place] 12:23 PM [facility] REPOSITORY HNO ID: [id number] Author: Clifford Barakat Service: (none) Author Type: [...] stopped after cycle #2. Was seen by factory maintenance technician at . Biopsy showed myopathy, but etiology [...] specimen was negative for both ER and IL as well as HER- 2. I discussed the case with the pathologist today who told me that histologically/morphologically the specimen was consistent with her previous specimen of breast cancer. The pathologist will issue an addendum quantifying ER and IL 0 as well as HER-2 at 0. [...] poorly differentiated carcinoma. See comment. COMMENT Immunohistochemistry ([id number]) does not rule out a breast primary. There is focal perinodal extension of tumor. Clinical correlation is suggested. ANTIBODY / CLONE RESULT Block 1 Mammaglobin (31A5) negative GATA3 (L50-823) positive, rare, dim CK8 (83jyyyM47) positive Ki-67 (30-9) positive, moderate to high ER (6F11) negative 0% IL (1E2) negative 0% CK19 (A53-B/A2.26) positive Cyclin [...] No jaundice or rash. No petechiae. NEUROLOGIC: county extension agent II-XII are grossly intact. No focal motor weakness. MUSCULOSKELETAL: No muscle wasting. No tenderness over the greater trochanters bilaterally. ASSESSMENT/PLAN: 1) pT1c (1.6 cm; grade 3; no AL invasion) pN0(sn) MX ER/IL negative HER2 non-amplified invasive ductal carcinoma of [...] DO CNOVSP Observed: 08/02/2017 Status: COMPLETED Source: [place] 11:[address] [facility] REPOSITORY Visit (SP) Office (DANYEL) PEDRO LUIS WILCOX ([id number]) 1970 F Date Time Provider Department 08/02/17 11:50 AM CLIFFORD BARAKAT During your visit today, we recorded the following information about you: Temperature Pulse Blood pressure Weight 98.2 degrees 112/minute 117/58 92.5 kg Orlando Langston (Tiffanie), TIFFANIE 08/02/2017 12:11 PM Signed Est pt, discuss recent lab results. , study pt. Orlando Langston, [employer] Clifford Barakat 08/02/2017 1:21 PM Signed [...] stopped after cycle #2. Was seen by factory maintenance technician at . Biopsy showed myopathy, but etiology [...] specimen was negative for both ER and IL as well as HER-2. I discussed the case with the pathologist today who told me that histologically/morphologically the specimen was consistent with her previous specimen of breast cancer. The pathologist will issue an addendum quantifying ER and IL 0 as well as HER-2 at 0. [...] poorly differentiated carcinoma. See comment. COMMENT Immunohistochemistry ([id number]) does not rule out a breast primary. There is focal perinodal extension of tumor. Clinical correlation is suggested. ANTIBODY / CLONE RESULT Block 1 Mammaglobin (31A5) negative GATA3 (L50-823) positive, rare, dim CK8 (16jlrgK35) positive Ki-67 (30-9) positive, moderate to high ER (6F11) negative 0% IL (1E2) negative 0% CK19 (A53-B/A2.26) positive Cyclin [...] No jaundice or rash. No petechiae. NEUROLOGIC: county extension agent II-XII are grossly intact. No focal motor weakness. MUSCULOSKELETAL: No muscle wasting. No tenderness over the greater trochanters bilaterally. 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 HYPERLIPIDEMIA NEC/NOS [E78.5] INVALID FOR* FIBROMYALGIA [NDJ8800] INVALID FOR* Priority: Moderate OVERWEIGHT [E66.9] INVALID [...] Source: [place] 9:10 AM [facility] REPOSITORY TYPE CODE TESTS RESULT OUT [...] Lymph 1.48 Performed By: #### L100.0100 #### [facility] [place], [address] COMPREHENSIVE METABOLIC Collected: 08/02/2017 Status: F Source: [place] 9:10 AM [facility] REPOSITORY TYPE CODE TESTS RESULT OUT [...] Performed By: #### L500.4050, L501.5200, L501.9520 #### [facility] [place], [address] MAGNESIUM Collected: 08/02/2017 Status: F Source: [place] 9:10 AM [facility] REPOSITORY TYPE CODE TESTS RESULT OUT OF RANGE REFERENCE UNITS LAB L501.5200 1.6-2.6 mg/dL Low MG 1.5 Performed By: #### L500.4050, L501.5200, L501.9520 #### [facility] [address] [place], [address] THYROID STIM HORMONE Collected: 08/02/2017 Status: F Source: [place] ([facility]) 9:10 AM [facility] REPOSITORY TYPE CODE TESTS RESULT OUT OF RANGE REFERENCE UNITS LAB L501.9520 0.358-3.74 uIU/mL Normal TSH 0.71 Performed By: #### L500.4050, L501.5200, L501.9520 #### [facility] [address] [place], [address] VITAMIN B12 Collected: 08/02/2017 Status: F Source: [place] 9:10 AM [facility] REPOSITORY TYPE CODE TESTS RESULT OUT OF RANGE REFERENCE UNITS LAB L503.0105 211-911 pg/mL Normal Vitamin B12 678 Performed By: #### L503.0105 #### [facility] [address] [place], [address] HOSP Observed: 08/02/2017 Status: COMPLETED Source: [place] 12:[address] [facility] REPOSITORY Patient Update ([place]) PEDRO LUIS WILCOX ([id number]) 1970 F Date Time Provider Department 08/02/17 [...] rest. ?? Labs earlier today drawn at [facility]: CBC Hgb 11.4, grade 1, [...] will bring them to clinic tomorrow. ?? [place] order-- Dr. Barakat ok to give patient [...] in 3 weeks with labs prior at [facility] for Cycle #10 (08/23/17). Patient also given order for CT C/A/P and bone scan to be done at [facility] (per insurance) prior to visit. [...] Date Reviewed: 08/02/2017 Reviewed by: Orlando Lanier ([facility]) TIFFANIE Langston - Fully Assessed Reason for [...] More... HYPERLIPIDEMIA NEC/NOS [E78.5] INVALID FOR* FIBROMYALGIA [[id number]] INVALID FOR* Priority: Moderate OVERWEIGHT [E66.9] INVALID [...] rest. ?? Labs earlier today drawn at [facility]: CBC Hgb 11.4, grade 1, [...] will bring them to clinic tomorrow. ?? [place] order-- Dr. Barakat ok to give patient [...] in 3 weeks with labs prior at [facility] for Cycle #10 (08/23/17). Patient also given order for CT C/A/P and bone scan to be done at [facility] (per insurance) prior to visit. [...] 08/03/17 HOSP Observed: 07/22/2017 Status: COMPLETED Source: [place] 12:[address] [facility] REPOSITORY Patient Update (DANYEL) PEDRO LUIS WILCOX ([id number]) 1970 F Date Time Provider Department 07/22/17 [...] days as dispensed by the pharmacy and [place] order. This will provide her enough pills [...] More... HYPERLIPIDEMIA NEC/NOS [E78.5] INVALID FOR* FIBROMYALGIA [WHD7571] INVALID FOR* Priority: Moderate OVERWEIGHT [E66.9] INVALID [...] days as dispensed by the pharmacy and [place] order. This will provide her enough pills to get to next appointment on increased dose. Patient states that she is tolerating the increase dose so far without any issues. Patient has upcoming appointment times and has contact information for any needs/concerns in the interim. Emre Mcdonough RN Encounter Status:Closed by EMRE MCDONOUGH on 07/22/17 CNCO Observed: 07/22/2017 Status: COMPLETED Source: [place] 12:[address] [facility] REPOSITORY Letter Text Clifford Barakat DO Hematology AND Medical Oncology/[address] [place] [address] 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 Patient denies any issues or new concerns. Emre Mcdonough RN Encounter Status:Closed by EMRE MCDONOUGH on 07/19/17 HOSP Observed: 07/19/2017 Status: COMPLETED Source: [place] 12:[address] [facility] REPOSITORY Patient Update (DANYEL) PEDRO LUIS WILCOX ([id number]) 1970 F Date Time Provider Department 07/19/17 [...] she will come in this week to olive picker another bottle to get to appointment on 08/02/17. [facility] in pharmacy aware. [place] order sent to Dr. Barakat and signed. She has also asked for port flush order for [facility]. She would like to olive picker at the same time. Dr. Barakat [...] More... HYPERLIPIDEMIA NEC/NOS [E78.5] INVALID FOR* FIBROMYALGIA [[id number]] INVALID FOR* Priority: Moderate OVERWEIGHT [E66.9] INVALID [...] she will come in this week to olive picker another bottle to get to appointment on 08/02/17. [facility] in pharmacy aware. [place] order sent to Dr. Barakat and signed. She has also asked for port flush order for [facility]. She would like to olive picker at the same time. Dr. Barakat aware and orders signed. Emre Mcdonough RN Encounter Status:Closed by EMRE MCDONOUGH on 07/21/17 CNOVS Observed: 07/12/2017 Status: COMPLETED Source: [place] 4:[address] [facility] REPOSITORY Visit (SP) Office (DANYEL) PEDRO LUIS WILCOX ([id number]) 1970 F Date Time Provider Department 07/12/17 [...] after cycle #2. ? Was seen by factory maintenance technician at . Biopsy showed myopathy, but etiology [...] specimen was negative for both ER and IL as well as HER-2. I discussed the case with the pathologist today who told me that histologically/morphologically the specimen was consistent with her previous specimen of breast cancer. The pathologist will issue an addendum quantifying ER and IL 0 as well as HER-2 at 0. [...] poorly differentiated carcinoma. See comment. COMMENT Immunohistochemistry ([id number]) does not rule out a breast primary. There is focal perinodal extension of tumor. Clinical correlation is suggested. ? ANTIBODY / CLONE RESULT Block 1 Mammaglobin (31A5) negative GATA3 (L50-823) positive, rare, dim CK8 (57yfrdH82) positive Ki-67 (30-9) positive, moderate to high ER (6F11) negative 0% IL (1E2) negative 0% CK19 (A53-B/A2.26) positive Cyclin [...] No jaundice or rash. No petechiae. NEUROLOGIC: county extension agent II-XII are grossly intact. No focal motor weakness. MUSCULOSKELETAL: No muscle wasting. No tenderness over the greater trochanters bilaterally. ? LABS: Review per protocol. ASSESSMENT/PLAN: 1) pT1c (1.6 cm; grade 3; no AL invasion) pN0(sn) MX ER/IL negative HER2 non-amplified invasive ductal carcinoma of [...] Dr. Jacinto Person Referring Provider: CLIFFORD BARAKAT [[id number]] Allergies As of Date: 07/12/2017 (No Known Allergies) Date Reviewed: 07/12/2017 Reviewed by: Veronica Harris - Fully Assessed Reason for Visit: Established Patient [175] Primary Visit Diagnosis:Malignant neoplasm of upper-outer quadrant of right breast in female, estrogen receptor negative (HCC) [C50.411, Z17.1] Other Visit Diagnoses:Examination of participant in clinical trial [Z00.6] Neuropathy (HCC) [G62.9] Order(s):[facility] COMMUNICATION ORDER [[id number]] Order #: [id number]: 1 HEMONC NURSING COMMUNICATION [[id number]] Order #: [id number]: 1 STANDING HEMONC NURSING COMMUNICATION [[id number]] Order #: [id number]: 1 STANDING HEMONC NURSING COMMUNICATION [[id number]] Order #: [id number]: 1 STANDING HEMONC NURSING COMMUNICATION [[id number]] Order #: [id number]: 1 STANDING HEMONC NURSING COMMUNICATION [[id number]] Order #: [id number]: 1 STANDING Level of Service: EST PATIENT VISIT LEVEL 3 [[id number]] Disposition: Return in about 3 weeks (around [...] More... HYPERLIPIDEMIA NEC/NOS [E78.5] INVALID FOR* FIBROMYALGIA [IMM9201] INVALID FOR* Priority: Moderate OVERWEIGHT [E66.9] INVALID [...] 07/13/17 PROGRESS Observed: 07/12/2017 Status: COMPLETED Source: [place] 3:[address] [facility] REPOSITORY O ID: [id number] Author: Arabella Donovan Service: (none) Author Type: [...] after cycle #2. ? Was seen by factory maintenance technician at . Biopsy showed myopathy, but etiology [...] specimen was negative for both ER and IL as well as HER- 2. I discussed the case with the pathologist today who told me that histologically/morphologically the specimen was consistent with her previous specimen of breast cancer. The pathologist will issue an addendum quantifying ER and IL 0 as well as HER-2 at 0. [...] poorly differentiated carcinoma. See comment. COMMENT Immunohistochemistry ([id number]) does not rule out a breast primary. There is focal perinodal extension of tumor. Clinical correlation is suggested. ? ANTIBODY / CLONE RESULT Block 1 Mammaglobin (31A5) negative GATA3 (L50-823) positive, rare, dim CK8 (57jnxlH53) positive Ki-67 (30-9) positive, moderate to high ER (6F11) negative 0% IL (1E2) negative 0% CK19 (A53-B/A2.26) positive Cyclin [...] No jaundice or rash. No petechiae. NEUROLOGIC: county extension agent II-XII are grossly intact. No focal motor weakness. MUSCULOSKELETAL: No muscle wasting. No tenderness over the greater trochanters bilaterally. ? LABS: Review per protocol. ASSESSMENT/PLAN: 1) pT1c (1.6 cm; grade 3; no AL invasion) pN0(sn) MX ER/IL negative HER2 non-amplified invasive ductal carcinoma of [...] W/DIFF, AUTOMATED Collected: 07/12/2017 Status: F Source: [place] 9:08 AM [facility] REPOSITORY TYPE CODE TESTS RESULT OUT [...] Lymph 1.76 Performed By: #### L100.0100 #### [facility] [address] [place], [place], [address] COMPREHENSIVE METABOLIC Collected: 07/12/2017 Status: F Source: [facility] 9:08 AM [facility] REPOSITORY TYPE CODE TESTS RESULT OUT [...] 5 Performed By: #### L500.4050, L501.5200 #### [facility] [address] [place], [address] MAGNESIUM Collected: 07/12/2017 Status: F Source: [place] 9:08 AM [facility] REPOSITORY TYPE CODE TESTS RESULT OUT OF RANGE REFERENCE UNITS LAB L501.5200 1.6-2.6 mg/dL Normal MG 1.7 Result Comment: Please note revised Magnesium reference range effective 2017. Performed By: #### L500.4050, L501.5200 #### [facility] [address] [place], [address] HOSP Observed: 07/12/2017 Status: COMPLETED Source: [place] 12:[address] [facility] REPOSITORY Patient Update (DANYEL) PEDRO LUIS WILCOX ([id number]) 1970 F Date Time Provider Department 07/12/17 [...] good. ?? Labs earlier today drawn at [facility]: CBC Hgb 11.1, grade 1, [...] with study medication self administration. ? ? [place] order-- The patient was given a new study medication diary and the current?bottles?of Veliparib vs Placebo with 35?capsules remaining. Unable to give a new bottle with 64 capsules as pharmacist not available at end of patient's appointment. 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 Per pill count, patient [...] in 3 weeks with labs prior at [facility] for Cycle #9. Patient agreeable [...] More... HYPERLIPIDEMIA NEC/NOS [E78.5] INVALID FOR* FIBROMYALGIA [[id number]] INVALID FOR* Priority: Moderate OVERWEIGHT [E66.9] INVALID [...] good. ?? Labs earlier today drawn at [facility]: CBC Hgb 11.1, grade 1, [...] with study medication self administration. ? ? [place] order-- The patient was given a new study medication diary and the current?bottles?of Veliparib vs Placebo with 35?capsules remaining. Unable to give a new bottle with 64 capsules as pharmacist not available at end of patient's appointment. 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 Per pill count, patient [...] in 3 weeks with labs prior at [facility] for Cycle #9. Patient agreeable with this plan. She has contact numbers if she needs anything in the interim. Emre Mcdonough RN Medications Discontinued During This Encounter INV ABT-888 OR [place] (INV S1416/17* 07/12/2017 07/13/2017 Route: ORAL Sig: Disc: Auto DC at discharge. Encounter Status:Closed by EMRE MCDONOUGH on 07/13/17 PROGRESS Observed: 06/21/2017 Status: COMPLETED Source: [place] 12:[address] [facility] REPOSITORY O ID: [id number] Author: Clifford Barakat Service: (none) Author Type: [...] stopped after cycle #2. Was seen by factory maintenance technician at . Biopsy showed myopathy, but etiology [...] specimen was negative for both ER and IL as well as HER- 2. I discussed the case with the pathologist today who told me that histologically/morphologically the specimen was consistent with her previous specimen of breast cancer. The pathologist will issue an addendum quantifying ER and IL 0 as well as HER-2 at 0. [...] poorly differentiated carcinoma. See comment. COMMENT Immunohistochemistry ([id number]) does not rule out a breast primary. There is focal perinodal extension of tumor. Clinical correlation is suggested. ANTIBODY / CLONE RESULT Block 1 Mammaglobin (31A5) negative GATA3 (L50-823) positive, rare, dim CK8 (45mmgdS97) positive Ki-67 (30-9) positive, moderate to high ER (6F11) negative 0% IL (1E2) negative 0% CK19 (A53-B/A2.26) positive Cyclin [...] No jaundice or rash. No petechiae. NEUROLOGIC: county extension agent II-XII are grossly intact. No focal motor weakness. MUSCULOSKELETAL: No muscle wasting. No tenderness over the greater trochanters bilaterally. ASSESSMENT/PLAN: 1) pT1c (1.6 cm; grade 3; no AL invasion) pN0(sn) MX ER/IL negative HER2 non-amplified invasive ductal carcinoma of [...] DO CNOVSP Observed: 06/21/2017 Status: COMPLETED Source: [place] 11:[address] [facility] REPOSITORY Visit (SP) Office (DANYEL) PEDRO LUIS WILCOX ([id number]) 1970 F Date Time Provider Department 06/21/17 [...] stopped after cycle #2. Was seen by factory maintenance technician at . Biopsy showed myopathy, but etiology [...] specimen was negative for both ER and IL as well as HER-2. I discussed the case with the pathologist today who told me that histologically/morphologically the specimen was consistent with her previous specimen of breast cancer. The pathologist will issue an addendum quantifying ER and IL 0 as well as HER-2 at 0. [...] poorly differentiated carcinoma. See comment. COMMENT Immunohistochemistry ([id number]) does not rule out a breast primary. There is focal perinodal extension of tumor. Clinical correlation is suggested. ANTIBODY / CLONE RESULT Block 1 Mammaglobin (31A5) negative GATA3 (L50-823) positive, rare, dim CK8 (30aeudK20) positive Ki-67 (30-9) positive, moderate to high ER (6F11) negative 0% IL (1E2) negative 0% CK19 (A53-B/A2.26) positive Cyclin [...] No jaundice or rash. No petechiae. NEUROLOGIC: county extension agent II-XII are grossly intact. No focal motor weakness. MUSCULOSKELETAL: No muscle wasting. No tenderness over the greater trochanters bilaterally. 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 HYPERLIPIDEMIA NEC/NOS [E78.5] INVALID FOR* FIBROMYALGIA [GHZ4192] INVALID FOR* Priority: Moderate OVERWEIGHT [E66.9] INVALID [...] Source: [place] 9:16 AM [facility] REPOSITORY TYPE CODE TESTS RESULT OUT [...] Lymph 1.76 Performed By: #### L100.0100 #### [facility] [address] [place], [address] COMPREHENSIVE METABOLIC Collected: 06/21/2017 Status: F Source: [facility] 9:16 AM [facility] REPOSITORY TYPE CODE TESTS RESULT OUT [...] 6 Performed By: #### L500.4050, L501.5200 #### [facility] [address] [place], [place], [address] MAGNESIUM Collected: 06/21/2017 Status: F Source: [place] 9:16 AM [facility] REPOSITORY TYPE CODE TESTS RESULT OUT OF RANGE REFERENCE UNITS LAB L501.5200 1.6-2.6 mg/dL Normal MG 1.8 Result Comment: Please note revised Magnesium reference range effective 2017. Performed By: #### L500.4050, L501.5200 #### [facility] [address] [place], [address] HIPS B/L MIN 2 Observed: 06/21/2017 Status: F Source: [place] VIEWS W/ PELVIS 8:36 AM [facility] REPOSITORY [facility] Imaging Services [address] [place] [address] Hips B/L min 2 views w/ Pelvis MR#: [id number] Acct: [id number] Name: PEDRO LUIS WILCOX Rep #: [id number] : 1970 F 47 From: Ruperto Sahu MD PCP: Jacinto Person MD Status: REG CLI Study: Hips B/L min 2 views w/ Pelvis Date of Exam: 06/21/17 Exam# [id number] Ordering Dr: Clifford Barakat DO STUDY: X-RAY [...] CC: Jacinto Person MD; Clifford Barakat DO Leader Tier: Signed HOSP Observed: 06/21/2017 Status: COMPLETED Source: [place] 12:[address] [facility] REPOSITORY Patient Update (HEMAWS) PEDRO LUIS WILCOX ([id number]) 1970 F Date Time Provider Department 06/21/17 [...] good. ?? Labs earlier today drawn at [facility]: CBC Hgb 11.3, grade 1, [...] in measurements of non-measurable disease. Stable disease. (non-CR/non-IL) [place] order-- The patient was given a new [...] in 3 weeks with labs prior at [facility] for Cycle #8. Patient agreeable [...] More... HYPERLIPIDEMIA NEC/NOS [E78.5] INVALID FOR* FIBROMYALGIA [[id number]] INVALID FOR* Priority: Moderate OVERWEIGHT [E66.9] INVALID [...] good. ?? Labs earlier today drawn at [facility]: CBC Hgb 11.3, grade 1, [...] in measurements of non-measurable disease. Stable disease. (non-CR/non-IL) [place] order-- The patient was given a new [...] in 3 weeks with labs prior at [facility] for Cycle #8. Patient agreeable with this plan. She has contact numbers if she needs anything in the interim. Emre Mcdonough RN Encounter Status:Closed by EMRE MCDONOUGH on 06/21/17 CHEST WITH CONTRAST Observed: 06/20/2017 Status: F Source: [place] 1:29 PM [facility] REPOSITORY [facility] Imaging Services [address] [place] [address] Chest WITH Contrast MR#: [id number] Acct: [id number] Name: PEDRO LUIS WILCOX Rep #: [id number] : 1970 F 47 From: Darryl Ford MD PCP: Jacinto Person MD Status: REG CLI Study: Chest WITH Contrast Date of Exam: 06/20/17 Exam# [id number] Ordering Dr: Clifford Barakat DO STUDY: CT [...] Darryl Ford MD at 14:48 EST Tel [phone], Service support , CC: Jacinto Person MD; Clifford Barakat DO Leader Tier: Signed ABDOMEN/PELVIS WITH Observed: 06/20/2017 Status: F Source: [place] CONTRAST 1:29 PM [facility] REPOSITORY [facility] Imaging Services [address] [place] [address] Abdomen/Pelvis WITH Contrast MR#: [id number] Acct: [id number] Name: PEDRO LUIS WILCOX Rep #: [id number] : 1970 F 47 From: Darryl Ford MD PCP: Jacinto Person MD Status: REG CLI Study: Abdomen/Pelvis WITH Contrast Date of Exam: 06/20/17 Exam# [id number] Ordering Dr: Clifford Barakat DO STUDY: CT [...] Darryl Ford MD at 14:52 EST Tel [phone], Service support , CC: Jacinto Person MD; Clifford Barakat DO Leader Tier: Signed HOSP Observed: 06/13/2017 Status: COMPLETED Source: [place] 12:[address] [facility] REPOSITORY Patient Update (DANYEL) PEDRO LUIS WILCOX ([id number]) 1970 F Date Time Provider Department 06/13/17 EMRE MCDONOUGH) DANYEL During your visit today, we recorded the following information about you: Emre Mcdonough RN 06/13/2017 4:31 PM Signed Clinical Trial Note for S1416: 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 Patient states that she has been compliant with study medication except she took last pills last pm and did not have any for this am dose. The patient was given a new bottle?of Veliparib vs Placebo with 64 capsules as dispensed by the pharmacy. See [place] documentation by pharmacy. Patient will restart study [...] More... 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 Patient states that she has been compliant with study medication except she took last pills last pm and did not have any for this am dose. The patient was given a new bottle?of Veliparib vs Placebo with 64 capsules as dispensed by the pharmacy. See [place] documentation by pharmacy. Patient will restart study medication tonight. Patient denies any issues or concerns at this time. States she feels good. Reminded of appointment times. Emre Mcdonough RN Encounter Status:Closed by EMRE MCDONOUGH on 06/13/17 BONE SCAN WHOLE Observed: 06/09/2017 Status: F Source: [place] B[place] 9:27 AM [facility] REPOSITORY [facility] Imaging Services [address] [place] [address] Bone Scan Whole Body MR#: [id number] Acct: [id number] Name: PEDRO LUIS WILCOX Rep #: [id number] : 1970 F 47 From: Clay Real DO PCP: Raza VEALZQUEZ,Jacinto Status: REG CLI Study: Bone Scan Whole Body Date of Exam: 06/09/17 Exam# [id number] Ordering Dr: Clifford Barakat DO CLINICAL: 47-year-old [...] CC: Jacinto Person MD; Clifford Barakat DO Leader Tier: Signed PROGRESS Observed: 06/01/2017 Status: COMPLETED Source: [place] 10:35 AM [facility] REPOSITORY O ID: [id number] Author: Isha Servin (Sw) Service: (none) Author Type: Refrigeration Houseman Type: Progress Notes Filed: 06/01/2017 10:36 AM [...] Continue follow up as needed F/U APPOINTMENT: ANNAMARAI Nunez PROGRESS Observed: 06/01/2017 Status: COMPLETED Source: [place] 9:[address] [facility] REPOSITORY HNO ID: [id number] Author: Clifford Barakat Service: (none) Author Type: [...] stopped after cycle #2. Was seen by factory maintenance technician at . Biopsy showed myopathy, but etiology [...] specimen was negative for both ER and IL as well as HER- 2. I discussed the case with the pathologist today who told me that histologically/morphologically the specimen was consistent with her previous specimen of breast cancer. The pathologist will issue an addendum quantifying ER and IL 0 as well as HER-2 at 0. [...] poorly differentiated carcinoma. See comment. COMMENT Immunohistochemistry ([id number]) does not rule out a breast primary. There is focal perinodal extension of tumor. Clinical correlation is suggested. ANTIBODY / CLONE RESULT Block 1 Mammaglobin (31A5) negative GATA3 (L50-823) positive, rare, dim CK8 (54dclyV63) positive Ki-67 (30-9) positive, moderate to high ER (6F11) negative 0% IL (1E2) negative 0% CK19 (A53-B/A2.26) positive Cyclin [...] No jaundice or rash. No petechiae. NEUROLOGIC: county extension agent II-XII are grossly intact. No focal motor weakness. MUSCULOSKELETAL: No muscle wasting. No tenderness over the greater trochanters bilaterally. ASSESSMENT/PLAN: 1) pT1c (1.6 cm; grade 3; no AL invasion) pN0(sn) MX ER/IL negative HER2 non-amplified invasive ductal carcinoma of [...] DO CNOVSP Observed: 06/01/2017 Status: COMPLETED Source: [place] 9:[address] [facility] REPOSITORY Visit (SP) Office (DANYEL) PEDRO LUIS WILCOX ([id number]) 1970 F Date Time Provider Department 06/01/17 9:10 AM CLIFFORD BARAKAT During your visit today, we recorded the following information about you: Temperature Pulse Blood pressure Weight 97.9 degrees 107/minute 140/66 90.3 kg Federica Pimentel LPN 06/01/2017 9:11 AM Signed Est patient. 3 week ov. Had labs this am @ [facility]. Labs not yet available. Federica [...] stopped after cycle #2. Was seen by factory maintenance technician at . Biopsy showed myopathy, but etiology [...] specimen was negative for both ER and IL as well as HER-2. I discussed the case with the pathologist today who told me that histologically/morphologically the specimen was consistent with her previous specimen of breast cancer. The pathologist will issue an addendum quantifying ER and IL 0 as well as HER-2 at 0. [...] poorly differentiated carcinoma. See comment. COMMENT Immunohistochemistry ([id number]) does not rule out a breast primary. There is focal perinodal extension of tumor. Clinical correlation is suggested. ANTIBODY / CLONE RESULT Block 1 Mammaglobin (31A5) negative GATA3 (L50-823) positive, rare, dim CK8 (68huahJ35) positive Ki-67 (30-9) positive, moderate to high ER (6F11) negative 0% IL (1E2) negative 0% CK19 (A53-B/A2.26) positive Cyclin [...] chronic symptom. She finds oftentimes shows to [place] [employer] around long distances and she ends [...] No jaundice or rash. No petechiae. NEUROLOGIC: county extension agent II-XII are grossly intact. No focal motor weakness. MUSCULOSKELETAL: No muscle wasting. No tenderness over the greater trochanters bilaterally. ASSESSMENT/PLAN: 1) pT1c (1.6 cm; grade 3; no AL invasion) pN0(sn) MX ER/IL negative HER2 non-amplified invasive ductal carcinoma of [...] Clifford Barakat DO Referring Provider: CLIFFORD BARAKAT [[id number]] Allergies As of Date: 06/01/2017 (No Known Allergies) Date Reviewed: 06/01/2017 Reviewed by: Federica Pimentel LPN - Fully Assessed Reason for Visit: Established Patient [175] Primary Visit Diagnosis:Malignant neoplasm of upper-outer quadrant of right breast in female, estrogen receptor negative (HCC) [C50.411, Z17.1] Other Visit Diagnosis:Pain of both hip joints [M25.551, M25.552] Order(s):XR PELVIS 2V AP HIP/FROG HIP BILAT [[id number]] Order #: [id number] [facility] COMMUNICATION ORDER [6679796] Order #: [id number]: 1 Prescriptions as of 06/01/2017 Sig: METOCLOPRAMIDE [...] More... HYPERLIPIDEMIA NEC/NOS [E78.5] INVALID FOR* FIBROMYALGIA [YUW8758] INVALID FOR* Priority: Moderate OVERWEIGHT [E66.9] INVALID [...] week ov. Had labs this am @ [facility]. Labs not yet available. Federica Pimentel LPN Encounter Status:Closed by CLIFFORD BARAKAT DO on 06/01/17 CBC W/DIFF, AUTOMATED Collected: 06/01/2017 Status: F Source: [place] 7:30 AM [facility] REPOSITORY TYPE CODE TESTS RESULT OUT [...] Lymph 2.17 Performed By: #### L100.0100 #### [facility] [address] [place], [address] COMPREHENSIVE METABOLIC Collected: 06/01/2017 Status: F Source: [facility] 7:30 AM [facility] REPOSITORY TYPE CODE TESTS RESULT OUT [...] 11 Performed By: #### L500.4050, L501.5200 #### [facility] [address] [place], [place], [id number] MAGNESIUM Collected: 06/01/2017 Status: F Source: [place] 7:30 AM [facility] REPOSITORY TYPE CODE TESTS RESULT OUT OF RANGE REFERENCE UNITS LAB L501.5200 1.6-2.6 mg/dL Low MG 1.5 Result Comment: Please note revised Magnesium reference range effective 2017. Performed By: #### L500.4050, L501.5200 #### [facility] [address] [place], [address] HOSP Observed: 06/01/2017 Status: COMPLETED Source: [place] 12:[address] [facility] REPOSITORY Patient Update (HEMAWS) PEDRO LUIS WILCOX ([id number]) 1970 F Date Time Provider Department 06/01/17 [...] C/O's ?? Labs earlier today drawn at [facility]: CBC Hgb 10.8, grade 1, [...] study pills as monotherapy per protocol. ? [place] order-- The patient was given a new [...] Bone scan is on 06/09/17 due to [facility] policy of have bone scan [...] More... HYPERLIPIDEMIA NEC/NOS [E78.5] INVALID FOR* FIBROMYALGIA [DKB2016] INVALID FOR* Priority: Moderate OVERWEIGHT [E66.9] INVALID [...] C/O's ?? Labs earlier today drawn at [facility]: CBC Hgb 10.8, grade 1, [...] study pills as monotherapy per protocol. ? [place] order-- The patient was given a new [...] Bone scan is on 06/09/17 due to [facility] policy of have bone scan and CT scan at 10 days apart. Patient agreeable with this plan. She has contact numbers if she needs anything in the interim. Emre Mcdonough RN Encounter Status:Closed by EMRE MCDONOUGH on 06/02/17 PROGRESS Observed: 05/30/2017 Status: COMPLETED Source: [place] 4:[address] [facility] REPOSITORY HNO ID: [id number] Author: Isha Servin (Sw) Service: (none) Author Type: Refrigeration Houseman Type: Progress Notes Filed: 05/30/2017 4:20 PM Note Text: SOCIAL WORK FOLLOW UP NOTE: [facility] Date of service: May 30, 2017 Pedro [...] Nunez PROGRESS Observed: 05/26/2017 Status: COMPLETED Source: [place] 4:[address] [facility] REPOSITORY HNO ID: [id number] Author: Isha Servin (Sw) Service: (none) Author Type: Refrigeration Houseman Type: Progress Notes Filed: 05/26/2017 4:23 PM Note Text: SOCIAL WORK FOLLOW UP NOTE: [facility] Date of service: May 26, 2017 Pedro [...] Nunez PROGRESS Observed: 05/26/2017 Status: COMPLETED Source: [place] 10:06 AM [facility] REPOSIT[facility] HNO ID: [id number] Author: Isha Servin (Sw) Service: (none) Author Type: Refrigeration Houseman Type: Progress Notes Filed: 05/26/2017 10:07 AM Note Text: [facility]IAL WORK FOLLOW UP [facility] Date of service: May 26, 2017 Pedro Luis Wilcox is being seen for a follow up social work visit. Today's visit includes: patient TOPICS ADDRESSED: Disability; Patient has additional disability paperwork from [facility] that needs completed. Patient requests that paperwork not be faxed because she also needs to send additional paperwork along with these documents. Patient would like to olive picker paperwork on 06/01/17. SW will completed paperwork and provide to doctor to review and sign. PLAN: Continue follow up as needed F/U APPOINTMENT: 06/01/17 ANNAMARIA Schroeder ALLERGIES ALLERGIES DATE TYPE / CODE NAME / CODE REACTION SEVERITY SOURCE 02/28/2018 Drug No Known Unknown [facility] Allergy/416 Allergies/S22873 Hospital 278999(SNOM 0388(RXNORM) Repository ED CT) Drug NO KNOWN [facility] Class/38051 ALLERGIES Main [place] 1003(SNOMED Repository CT) ENCOUNTERS ENCOUNTERS ADMIT/DISCHARGE ACCOUNT ADMITTING ENCOUNTER LOCATION SOURCE NUMBER CLASS 05/09/2018 [id number] Ambulatory [facility] ing:MEDOUTP Repository 05/09/2018 [id number] Ambulatory [facility] ing:LAB Repository 05/03/2018/05/09/19 [id number] Ambulatory [place] [facility] Repository 04/26/2018 [id number] Ambulatory [facility] ing:MEDOUTP Repository 04/19/2018 [id number] Ambulatory [facility] ing:MEDOUTP Repository 04/12/2018 [id number] Ambulatory [facility] ing:MEDOUTP Repository 04/04/2018/04/05/20 [id number] Ambulatory [address] Repository 04/04/2018/04/04/20 [id number] Ambulatory [address] ing:LAB Repository 04/03/2018 [id number] Ambulatory [facility] ing:RAD Repository 03/30/2018 [id number] [facility] Repository 03/27/2018 [id number] [facility] ing:CT Repository 03/22/2018 [id number] [facility] ing:MED[facility]P Repository 03/14/2018 [id number] [facility] [place] [facility] Repository 03/13/2018/03/17/20 [id number] Ambulatory [place] [facility] [facility] ing:LAB Repository 03/06/2018/03/07/20 [id number] Ambulatory [address] [place] Repository 02/28/2018 [id number] [facility] ing:MED[facility]P Repository 02/21/2018 [id number] [facility] ing:MED[facility]P Repository 02/13/2018/02/15/20 [id number] Ambulatory [address] [place] Repository 02/10/2018 [id number] [facility] ing:MRI Repository 02/07/2018 [id number] [facility] ing:CT Repository 02/07/2018 [id number] [facility] ing:MEDOUTP Repository 02/07/2018/02/09/20 [id number] Ambulatory [address] [place] Repository 02/06/2018/02/07/20 [id number] Ambulatory [place] [facility] [facility] ing:LAB Repository 01/31/2018 [id number] [facility] ing:MED[facility]P Repository 01/24/2018 [id number] [facility] ing:LAB[facility] Repository 01/24/2018 [id number] [facility] ing:MED[facility]P Repository 01/23/2018/01/28/20 [id number] Ambulatory [address] [place] Repository 01/20/2018 [id number] [facility] ing:NM Repository 01/17/2018 [id number] Ambulatory [facility] [facility] ing:CT Repository 01/06/2018 [id number] [facility] [place] [facility] Repository 01/03/2018 [id number] [facility] ing:MED[facility]P Repository 01/03/2018/01/07/20 [id number] Ambulatory [address] [place] Repository 01/03/2018/01/04/20 [id number] Ambulatory [place] [facility] [facility] ing:LAB Repository 12/20/2017 [id number] [facility] [place] [facility] ing:MED[facility]P Repository 12/13/2017 [id number] [facility] ing:MED[facility]P Repository 12/12/2017/12/15/19 [id number] Ambulatory [address] [place] Repository 12/09/2017 [id number] [facility] ing:EMPH Repository 12/09/2017/12/20/19 [id number] Ambulatory [place] [facility] [facility] ing:LAB Repository 12/08/2017 [id number] [facility] ing:CT Repository 12/06/2017 [id number] [facility] ing:NM Repository 11/29/2017 [id number] [facility] [place] [facility] ing:MED[facility]P Repository 11/22/2017 [id number] [facility] [place] [facility] ing:MED[facility]P Repository 11/21/2017/11/23/19 [id number] Ambulatory [address] [place] Repository 11/18/2017/11/23/19 [id number] Ambulatory [address] [place] Repository 11/16/2017/11/18/19 [id number] Emergency [place] [facility] [facility] ing:ED Repository 11/14/2017/11/15/19 [id number] Ambulatory [place] [facility] [facility] ing:LAB Repository 11/09/2017 [id number] Ambulatory [facility] ing:[facility]S Repository 11/08/2017 [id number] Ambulatory [facility] ing:MEDOUTP Repository 11/03/2017/11/04/19 [id number] Ambulatory [facility] [place] [facility] [place] [facility] Repository 11/01/2017 [id number] Ambulatory [facility] ing:MEDOUTP Repository 10/28/2017/11/02/19 [id number] Ambulatory [address] [place] Repository 10/25/2017/10/28/19 [id number] Ambulatory [address] [place] Repository 10/20/2017/10/22/19 [id number] Ambulatory [address] Repository 10/16/2017 [id number] Ambulatory [facility] ing:LAB Repository 10/11/2017/10/14/19 [id number] Ambulatory [address] [place] Repository 10/10/2017 [id number] Ambulatory [facility] ing:NM Repository 10/10/2017 [id number] [facility] Repository 10/07/2017 [id number] Ambulatory [facility] ing:NM Repository 10/05/2017 [id number] Ambulatory [facility] ing:CT Repository 10/04/2017/10/07/19 [id number] Ambulatory [address] [place] Repository 10/04/2017/10/05/19 [id number] Ambulatory [place] [facility] ing:LAB Repository 09/20/2017 [id number] Ambulatory [facility] ing:NM Repository 09/13/2017/09/21/19 [id number] Ambulatory [address] [place] Repository 09/13/2017/09/14/19 [id number] Ambulatory [place] [facility] ing:LAB Repository 09/07/2017 [id number] Ambulatory [facility]:[place] Repository 09/07/2017/09/08/19 [id number] Ambulatory [facility] [facility] ing:OMD Repository 08/29/2017/08/30/19 [id number] Emergency [place] [facility] ing:ED Repository 08/29/2017 [id number] Ambulatory [facility] ing:ONC Repository 08/23/2017/08/27/19 [id number] Ambulatory [address] Repository 08/23/2017 [id number] [facility]:MEDOUTP Repository 08/16/2017 [id number] [facility]:CT Repository 08/16/2017 [id number] [facility] ing[facility]NM Repository 08/02/2017/08/06/19 [id number] Ambulatory [address] Repository 08/02/2017/08/03/19 [id number] Ambulatory Ar[address] Hospital[facility] Hospital ing:LAB Repository 08/02/2017 [id number] [facility] ing:MEDOUTP Repository 07/12/2017/07/20/19 [id number] Ambulatory [address] Repository 07/12/2017/07/13/19 [id number] Ambulatory Kulwinder[address] Hospital[facility] Hospital ing:LAB Repository 06/21/2017/06/24/19 [id number] Ambulatory [address] Repository 06/21/2017 [id number] [facility]:RAD Repository 06/20/2017 [id number] [facility] ing:CT Repository 06/09/2017 [id number] [facility] ing:NM Repository 06/01/2017/06/08/19 [id number] Ambulatory [address] Repository 06/01/2017/06/01/19 [id number] Ambulatory Ardara K[address] Hospital[facility] Hospital ing:LAB Repository PAYERS PAYERS ENCOUNTER GUARANTOR PAYER SUBSCRIBER SOURCE 05/09/2018 TOSHIA H Primary Insurance:[facility] PEDRO LUIS Williamson Kulwinder [id number] [facility]: [facility] 6430-68-70XWCEvans[place], [place] Number: Repository [address]Rwj: 330 [id number] [phone]) Date:5594-56-74VI [address] [address]GJCHTJYPL, [place] [address]XY: CHECK WEBSITE 05/09/2018 Secondary NOT GIVENUNK Kulwinder Insurance:SELF PAY [facility] Number: Effective Repository Date:2018-05-09 05/09/2018 TOSHIA H Primary Insurance:[facility] PEDRO LUIS Williamson Kulwinder [id number] [facility]DOB: [facility] 9409-94-79HMXEvans[place] Number: Repository 12694Ylx: 330 [id number] [phone]) Date:9311-00-55LV [address] [address]WSPBEYBNH, [place] [address]RD: CHECK WEBSITE 05/09/2018 Secondary NOT GIVENUNK Ardara Insurance:SELF PAY [facility] Number: Effective Repository Date:2018-04-17 04/26/2018 TOSHIA H Primary Insurance:[facility] PEDRO LUIS Williamson Kulwinder [id number] [facility]: [facility] 5208-28-73XOWEvans[place], [place] Number: Repository 83506Uqh: 330 [id number] [phone]) Date:5547-59-28VL [address] [address]BMSWJMZLM, [place] [address]SO: CHECK WEBSITE 04/26/2018 Secondary NOT GIVENUNK Kulwinder Insurance:SELF PAY [facility] Number: Effective Repository Date:2018-04-13 04/19/2018 TOSHIA H Primary Insurance:[facility] PEDRO LUIS Williamson Kulwinder [id number] [facility]: [facility] 7019-48-29IPJEvansville, [place] Number: Repository [address]Xev: 330 [id number] [phone] (HP) Date:9033-70-15QC [address] [address]VRSWAERRV, [place] [address]VV: CHECK WEBSITE 04/19/2018 Secondary NOT GIVENUNK Kulwinder Insurance:SELF PAY [facility] Number: Effective Repository Date:2018-04-04 04/12/2018 TOSHIA H Primary Insurance:[facility] PEDRO LUIS Williamson Ardara [id number] [facility]OB: [facility] 1461-59-28PGHEvansville, [place] Number: Repository [address]Szy: 330 [id number] [phone] () Date:4293-19-73WK [address] [address]LDZFPYMTU, [place] [address]KX: CHECK WEBSITE 04/12/2018 Secondary NOT GIVENUNK Kulwinder Insurance:SELF PAY [facility] Number: Effective Repository Date:2018-04-04 04/04/2018 TOSHIA H Primary Insurance:[facility] PEDRO LUIS Williamson Kulwinder [id number] [facility]: [facility] 7940-26-71XDKEvansville, [place] Number: Repository [address]Uxu: 330 [id number] [phone] () Date:6359-81-17VQ [address] [address]KMTNMNATN, [place] [address]PZ: CHECK WEBSITE 04/04/2018 Secondary NOT GIVENUNK Kulwinder Insurance:SELF PAY [facility] Number: Effective Repository Date:2018-03-20 04/03/2018 TOSHIA H Primary Insurance:[facility] PEDRO LUIS Williamson Kulwinder [id number] [facility]OB: [facility] 6471-18-09MCGEvansville, [place] Number: Repository 22090Fmu: 330 [id number] [phone] () Date:3618-54-87UW [address] [address]IZXTEHLVW, [place] [address]MZ: CHECK WEBSITE 04/03/2018 Secondary NOT GIVENUNK Ardara Insurance:SELF PAY [facility] Number: Effective Repository Date:2018-04-03 03/30/2018 TOSHIA H Primary Insurance:[facility] PEDRO LUIS Williamson Ardara [id number] [facility]DOB: [facility] 7289-54-12NOMEvansville, [place] Number: Repository 13172Pte: 330 [id number] [phone]) Date:0505-18-02KU [address] [address]6CTBDGCECD, [place] [address]NY: CHECK WEBSITE 03/30/2018 Secondary NOT GIVENUNK Ardara Insurance:SELF PAY [facility] Number: Effective Repository Date:2018-03-13 03/27/2018 TOSHIA H Primary Insurance:[facility] PEDRO LUIS Williamson Kulwinder [id number] [facility]DOB: [facility] 7953-94-21DDDEvansville, [place] Number: Repository 93[address]Pmc: 330 [id number] [phone]) Date:2279-48-34PP [address] [address]STPXPLHCH, [place] [address]GR: CHECK WEBSITE 03/27/2018 Secondary NOT GIVENUNK Kulwinder Insurance:SELF PAY [facility] Number: Effective Repository Date:2018-03-13 03/22/2018 TOSHIA H Primary Insurance:[facility] Kulwinder [id number] [facility]DOB: [facility] 6685-21-01JPFEvansville, [place] Number: Repository 05256Rep: 330 [id number] [phone]) Date:7578-94-69FQ [address] [address]EVJPARDZM, [place] [address]AO: CHECK WEBSITE 03/22/2018 Secondary NOT GIVENUNK Kulwinder Insurance:SELF PAY [facility] Number: Effective Repository Date:2018-03-20 03/14/2018 TOSHIA H Primary Insurance:[facility] Kulwinder [id number] [facility]DOB: [facility] 6459-15-50IAQEvansville, [place] Number: Repository [address]Rss: 330 [id number] [phone] (HP) Date:9173-62-68HA [address] [address]DLVZPZYIB, [place] [address]DD: CHECK WEBSITE 03/14/2018 Secondary NOT GIVENUNK Ardara Insurance:SELF PAY [facility] Number: Effective Repository Date:2018-03-13 03/13/2018 TOSHIA H Primary Insurance:[facility] L[facility]YKINDR[facility] Kulwinder [id number] [facility]DOB: [facility] 4618-76-23MZHEvansville, [place] Number: Repository 54[address]Ubx: 330 [id number] [phone] (HP) Date:4097-40-64KU [address] [address]XXPLIHORC, [place] [address]MO: CHECK WEBSITE 03/13/2018 Secondary NOT GIVENUNK Kulwinder Insurance:SELF PAY [facility] Number: Effective Repository Date:2018-02-16 02/28/2018 TOSHIA H Primary Insurance:[facility] DAYANDATH C Kulwinder [id number] [facility]DOB: [facility] 2703-84-27ZUGEvansville, [place] Number: Repository 564[address]Vhv: 330 [id number] [phone]) Date:2183-65-11IQ [address] [address]YDWQJSFMS, [place] [address]EE: CHECK WEBSITE 02/28/2018 Secondary NOT GIVENUNK Kulwinder Insurance:SELF PAY [facility] Number: Effective Repository Date:2018-02-24 02/21/2018 TOSHIA H Primary Insurance:[facility] DAYANDATH C Ardara [id number] [facility] 1971-61-68JNVEvansville, [place] Number: Repository 18408Efm: 330 [id number] [phone]) Date:1479-19-29RV [address] [address]FUKLGULPB, [place] [address]OL: CHECK WEBSITE 02/21/2018 Secondary NOT GIVENUNK Kulwinder Insurance:SELF PAY [facility] Number: Effective Repository Date:2018-02-20 02/10/2018 TOSHIA H Primary Insurance:[facility] DAYANDATH C Kulwinder [id number] [facility]: [facility] 1504-36-17NSWEvansville, [place] Number: Repository 43502Ppe: 330 [id number] [phone]) Date:6742-07-37JW [address]238IKWGDMJJZ, [place] [address]YW: CHECK WEBSITE 02/10/2018 Secondary NOT GIVENUNK Kulwinder Insurance:SELF PAY [facility] Number: Effective Repository Date:2018-01-25 02/07/2018 TOSHIA H Primary Insurance:[facility] PEDRO LUIS Miramontes [id number] [facility]DOB: [facility] 7467-94-31LCMEvansville, [place] Number: Repository 6[address]Tqa: 330 [id number] [phone]) Date:9708-07-89GX [address] [address]AQKTKZBNB, [place] [address]AU: CHECK WEBSITE 02/07/2018 Secondary NOT GIVENUNK Kulwinder Insurance:SELF PAY [facility] Number: Effective Repository Date:2018-02-07 02/07/2018 TOSHIA H Primary Insurance:[facility] PEDRO LUIS Miramontes [id number] [facility]DOB: [facility] 1008-90-90BMGEvansville, [place] Number: Repository [address]Ame: 330 [id number] [phone]) Date:6379-20-14ST [address] [address]ZBBWIIEHS, [place] [address]CR: CHECK WEBSITE 02/07/2018 Secondary NOT GIVENUNK Ardara Insurance:SELF PAY [facility] Number: Effective Repository Date:2018-02-03 02/06/2018 TOSHIA H Primary Insurance:[facility] PEDRO LUIS Miramontes [id number] [facility]DOB: [facility] 8824-69-49EQHEvansville, [place] Number: Repository [address]Olf: 330 [id number] [phone]) Date:7851-80-65PG [address] [address]GPXNDLLBP, [place] [address]KY: CHECK WEBSITE 02/06/2018 Secondary NOT GIVENUNK Ardara Insurance:SELF PAY [facility] Number: Effective Repository Date:2018-01-18 01/31/2018 TOSHIA H Primary Insurance:[facility] PEDRO LUIS Miramontes [id number] [facility]DOB: [facility] 3330-95-38AQMEvansville, [place] Number: Repository [address]Whe: 330 [id number] [phone]) Date:1762-42-79HL [address] [address]JMDTCPKPA, [place] [address]CS: CHECK WEBSITE 01/31/2018 Secondary NOT GIVENUNK Kulwinder Insurance:SELF PAY [facility] Number: Effective Repository Date:2018-01-30 01/24/2018 TOSHIA H Primary Insurance:[facility] PEDRO LUIS Williamson Ardara [id number] [facility]DOB: [facility] 8484-38-08KTWEvansville, [place] Number: Repository [address]Mdi: 330 [id number] [phone]) Date:6983-68-81TD [address] [address]MLLRKESBO, [place] [address]QQ: CHECK WEBSITE 01/24/2018 Secondary NOT GIVENUNK Kulwinder Insurance:SELF PAY [facility] Number: Effective Repository Date:2018-01-24 01/24/2018 TOSHIA H Primary Insurance:[facility] PEDRO LUIS Williamson Ardara [id number] [facility]DOB: [facility] 9421-57-28UPOEvansville, [place] Number: Repository 71337Zlk: 330 [id number] [phone]) Date:3608-35-04DB [address] [address]90FDIDMHTDZ, [place] [address]JI: CHECK WEBSITE 01/24/2018 Secondary NOT GIVENUNK Kulwinder Insurance:SELF PAY [facility] Number: Effective Repository Date:2018-01-18 01/20/2018 TOSHIA H Primary Insurance:[facility] PEDRO LUIS Williamson Ardara [id number] [facility]DOB: [facility] 5518-74-30UQLEvansville, [place] Number: Repository 529[address]Kzy: 330 [id number] [phone]) Date:4772-51-61PV [address] [address]CRGZRYRXQ, [place] [address]FF: CHECK WEBSITE 01/20/2018 Secondary NOT GIVENUNK Ardara Insurance:SELF PAY [facility] Number: Effective Repository Date:2018-01-11 01/17/2018 TOSHIA H Primary Insurance:[facility] PEDRO LUIS Williamson Ardara [id number] [facility]: [facility] 1405-66-24HFWEvansville, [place] Number: Repository 17225Opz: 330 [id number] [phone]) Date:9143-01-77JK [address] [address]ZDYCIRURT, [place] [address]CZ: CHECK WEBSITE 01/17/2018 Secondary NOT GIVENUNK Kulwinder Insurance:SELF PAY [facility] Number: Effective Repository Date:2018-01-11 01/06/2018 TOSHIA H Primary Insurance:[facility] DAYANDATH C Ardara [id number] [facility]: [facility] 3768-11-22PWMEvansville, [place] Number: Repository 614[address]Lhg: 330 [id number] [phone]) Date:7450-75-20OE [address] [address]CFRLPRIUD, [place] [address]HK: CHECK WEBSITE 01/06/2018 Secondary NOT GIVENUNK Kulwinder Insurance:SELF PAY [facility] Number: Effective Repository Date:2018-01-06 01/03/2018 TOSHIA H Primary Insurance:[facility] LANEYTH C Kulwinder [id number] [facility]: [facility] 2537-66-39QIGEvansville, [place] Number: Repository [address]Taz: 330 [id number] [phone]) Date:6498-97-63AW [address] [address]UTVQFKJRO, [place] [address]MG: CHECK WEBSITE 01/03/2018 Secondary NOT GIVENUNK Kulwinder Insurance:SELF PAY [facility] Number: Effective Repository Date:2018-01-02 01/03/2018 TOSHIA H Primary Insurance:[facility] PEDRO LUIS Williamson Ardara [id number] [facility]: [facility] 2243-56-32XSOEvansville, [place] Number: Repository 8[address]Iqi: 330 [id number] [phone]) Date:8496-29-51BI [address] [address]19TFLQYMNMD, [place] [address]YW: CHECK WEBSITE 01/03/2018 Secondary NOT GIVENUNK Kulwinder Insurance:SELF PAY [facility] Number: Effective Repository Date:2017-12-20 12/20/2017 TOSHIA H Primary Insurance:[facility] PEDRO LUIS Miramontes [id number] S [facility]: [facility] 5147-94-21OZQUCHealth [facility] [place] Number: Repository [address]Ngh: 330 [id number] [phone] (HP) Date:4615-79-02NY [address] [address]APTBYZUMT, [place] [address]TF: CHECK WEBSITE 12/20/2017 Secondary NOT GIVENUNK Ardara Insurance:SELF PAY [facility] Number: Effective Repository Date:2017-12-16 12/13/2017 TOSHIA H Primary Insurance:[facility] PEDRO LUIS Miramontes [id number] [facility]: [facility] 3272-19-00YTCWeisbrod [facility], [place] Number: Repository [address]Dnk: 330 [id number] [phone] () Date:3899-96-11VD [address] [address]30UVKBUIOKA, [place] [address]FJ: CHECK WEBSITE 12/13/2017 Secondary NOT GIVENUNK Kulwinder Insurance:SELF PAY [facility] Number: Effective Repository Date:2017-12-07 12/09/2017 TOSHIA H Primary NOT GIVENUNK Kulwinder [id number] S Insurance:SELF PAY [facility] [place] Number: Effective Repository 00993Iiv: 330) Date:2017-12-09 [phone] ([phone] 12/09/2017 TOSHIA H Primary Insurance:[facility] PEDRO LUIS Miramontes [id number] S [facility]B: [facility] 9646-51-19BIRUCHealth [facility] [place] Number: Repository [address]Moc: 330 [id number] [phone] (HP) Date:7689-34-77QX [address] [address]IPNCUJHUZ, [place] [address]IR: CHECK WEBSITE 12/09/2017 Secondary NOT GIVENUNK Ardara Insurance:SELF PAY [facility] Number: Effective Repository Date:2017-11-17 12/08/2017 TOSHIA H Primary Insurance:[facility] MEREDAPATTI [id number] [facility]: [facility] 3161-91-30LKFBurkeville, [place] Number: Repository 41999Hys: 330 [id number] [phone] (HP) Date:2775-39-96SL [address] [address]491IDNRKFIWO, [place] [address]VC: CHECK WEBSITE 12/08/2017 Secondary NOT GIVENUNK Kulwinder Insurance:SELF PAY [facility] Number: Effective Repository Date:2017-12-05 12/06/2017 TOSHIA H Primary Insurance:[facility] PEDRO LUIS [id number] S [facility]: [facility] 0740-17-22QHZUCHealth [facility] [place] Number: Repository [address]Ojn: 330 [id number] [phone]) Date:2292-20-58MD [address] [address]SIYEYMJGE, [place] [address]RJ: CHECK WEBSITE 12/06/2017 Secondary NOT GIVENUNK Kulwinder Insurance:SELF PAY [facility] Number: Effective Repository Date:2017-12-05 11/29/2017 TOSHIA H Primary Insurance:[facility] PEDRO LUIS [id number] [facility]: [facility] 7039-49-47GFGBurkeville, [place] Number: Repository 17758Jpu: 330 [id number] [phone] (HP) Date:9289-79-06LP [address] [address]133BNIXHBGTC, [place] [address]AM: CHECK WEBSITE 11/29/2017 Secondary NOT GIVENUNK Ardara Insurance:SELF PAY [facility] Number: Effective Repository Date:2017-11-08 11/22/2017 TOSHIA H Primary Insurance:[facility] PEDRO LUIS [id number] S [facility]: [facility] 6562-20-76SWQBurkeville, [place] Number: Repository 726[address]Blj: 330 [id number] [phone] (HP) Date:8137-21-89YU [address] [address]OYXGBFMYI, [place] [address]WJ: CHECK WEBSITE 11/22/2017 Secondary NOT GIVENUNK Kulwinder Insurance:SELF PAY [facility] Number: Effective Repository Date:2017-11-08 11/16/2017 TOSHIA H Primary Insurance:[facility] PEDRO LUIS Miramontes [id number] S [facility]: [facility] 6199-26-47YOVBurkeville, [place] Number: Repository 76783Rwu: 330 [id number] [phone]) Date:5612-41-75RT [address] [address]FBLNGYBZL, [place] [address]FP: CHECK WEBSITE 11/16/2017 Secondary NOT GIVENUNK Ardara Insurance:SELF PAY [facility] Number: Effective Repository Date:2017-11-16 11/14/2017 DAYANLISSETTEPATTI Clay Primary Insurance:[facility] PEDRO LUIS Williamson Kulwinder [id number] S [facility]: [facility] 5312-58-89HXMSan Vicente Hospital, Number: Repository [place] [address]Yso: [id number] Date:3132-39-67JH [address] () [address]KLHVZMAWS, [place] [address]BY: CHECK WEBSITE 11/14/2017 Secondary NOT GIVENUNK Kulwinder Insurance:SELF PAY [facility] Number: Effective Repository Date:2017-10-31 11/09/2017 TOSHIA H Primary Insurance:[facility] PEDRO LUIS Miramontes [id number] S [facility] KENN[facility]YB: [facility] 1205-10-40WHCBurkeville, [place] Number: Repository 76891Pdc: 330 [id number] [phone] (HP) Date:3892-62-02RS [address] [address]OTQUGMWGS, [place] [address]SN: CHECK WEBSITE 11/09/2017 Secondary NOT GIVENUNK Kulwinder Insurance:SELF PAY [facility] Number: Effective Repository Date:2017-11-09 11/08/2017 TOSHIA H Primary Insurance:[facility] PEDRO LUIS Miramontes [id number] S [facility] KENN[facility]YB: [facility] 9266-14-40XAOBurkeville, [place] Number: Repository 64181Mdf: 330 [id number] [phone] (HP) Date:1688-62-03QI [address] [address]33BQPJECZRN, [place] [address]PW: CHECK WEBSITE 11/08/2017 Secondary NOT GIVENUNK Ardara Insurance:SELF PAY [facility] Number: Effective Repository Date:2017-11-07 11/03/2017 TOSHIA H Primary Insurance:[facility] LANEY Clay Ardara [id number] S [facility]: [facility] 7427-13-84BXPUCHealth [facility] [place] Number: Repository [address]Dor: 330 [id number] [phone] (HP) Date:5853-30-19YU [address] [address]77AOICCKLQD, [place] [address]MU: CHECK WEBSITE 11/03/2017 Secondary NOT GIVENUNK Kulwinder Insurance:SELF PAY [facility] Number: Effective Repository Date:2017-11-03 11/01/2017 TOSHIA H Primary Insurance:[facility] LANEYKINDR[facility] Ardara [id number] S [facility]B: [facility] 1187-36-71STIUCHealth [facility] [place] Number: Repository [address]Ssi: 330 [id number] [phone] () Date:3332-15-10CF [address] [address]65SRUHFAPHY, [place] [address]TT: CHECK WEBSITE 11/01/2017 Secondary NOT GIVENUNK Kulwinder Insurance:SELF PAY [facility] Number: Effective Repository Date:2017-10-28 10/16/2017 TOSHIA H Primary Insurance:[facility] LANEY Clay Ardara [id number] S [facility]: [facility] 3997-04-54HSSUCHealth [facility] [place] Number: Repository 27532Qxd: 330 [id number] [phone] (HP) Date:4971-49-17SP [address] [address]SNJURMQLD, [place] [address]TS: CHECK WEBSITE 10/16/2017 Secondary NOT GIVENUNK Ardara Insurance:SELF PAY [facility] Number: Effective Repository Date:2017-10-14 10/10/2017 TOSHIA H Primary Insurance:[facility] PEDRO LUIS Miramontes [id number] S [facility]: [facility] 6622-01-95TTTBurkeville, [place] Number: Repository 05871Syp: 330 [id number] [phone] (HP) Date:7062-78-86LJ [address] [address]GAVAAHLLC, [place] [address]GJ: CHECK WEBSITE 10/10/2017 Secondary NOT GIVENUNK Ardara Insurance:SELF PAY [facility] Number: Effective Repository Date:2017-09-13 10/10/2017 PEDRO LUIS Williamson Primary Insurance:[facility] PEDRO LUIS Arenasoster [id number] S [facility]: [facility] 1097-12-14AOASan Vicente Hospital, Number: Repository [place] [address]Hkf: [id number] Date:4117-15-00HH [address] () [address]43YYVALOQSV, [place] [address]LY: CHECK WEBSITE 10/10/2017 Secondary NOT GIVENUNK Kulwinder Insurance:SELF PAY [facility] Number: Effective Repository Date:2017-10-10 10/07/2017 TOSHIA H Primary Insurance:[facility] PEDRO LUIS Miramontes [id number] S [facility]: [facility] 6631-08-75RTBBurkeville, [place] Number: Repository 655[address]Kyz: 330 [id number] [phone] (HP) Date:3000-96-13BJ [address] [address]TZGLKAOKK, [place] [address]UW: CHECK WEBSITE 10/07/2017 Secondary NOT GIVENUNK Kulwinder Insurance:SELF PAY [facility] Number: Effective Repository Date:2017-10-04 10/05/2017 TOSHIA H Primary Insurance:[facility] PEDRO LUIS Miramontes [id number] S [facility]: [facility] 0145-04-88MVTBurkeville, [place] Number: Repository [address]67Dtg: 330 [id number] [phone] (HP) Date:0168-85-00QC [address] [address]RXBXBDDWJ, [place] [address]EH: CHECK WEBSITE 10/05/2017 Secondary NOT GIVENUNK Ardara Insurance:SELF PAY [facility] Number: Effective Repository Date:2017-09-13 10/04/2017 TOSHIA H Primary Insurance:[facility] LUIS Miramontes [id number] [facility] [facility]OB: [facility] [id number], [place] Number: Repository [id number]: 330 [id number] [phone] (HP) Date:7013-67-46[address] [address]VBBCWDQHA, [place] [address]OV: CHECK WEBSITE 10/04/2017 Secondary NOT GIVENUNK Ardara Insurance:SELF PAY [facility] Number: Effective Repository Date:2017-09-15 09/20/2017 Toshia H Primary Insurance:[facility] LUIS Miramontes [id number] [facility] KENNEDYDOB: [facility] [id number] Number: Repository [id number]: 330 [id number] [phone] () Date:9518-18-29CJ [address] [address]JLEBVGKCD, [place] [address]AX: CHECK WEBSITE 09/20/2017 Secondary NOT GIVENUNK Ardara Insurance:SELF PAY [facility] Number: Effective Repository Date:2017-09-09 09/13/2017 Toshia H Primary Insurance:[facility] LUIS [id number] [facility] [id number], [place] Number: Repository [id number]: 330 [id number] [phone] (HP) Date:2916-53-78[address] [address]OBHBUZNHJ, [place] [address]AJ: CHECK WEBSITE 09/13/2017 Secondary NOT GIVENUNK Kulwinder Insurance:SELF PAY [facility] Number: Effective Repository Date:2017-08-16 09/07/2017 Toshia H Primary Insurance:[facility] LUIS [id number]: [facility] [id number] Number: Repository [id number]: 330 [id number] [phone] (HP) Date:6137-05-75CI [address] [address]CEIWHJKLE, [place] [address]AT: CHECK WEBSITE 09/07/2017 Secondary NOT GIVENUNK Kulwinder Insurance:SELF PAY [facility] Number: Effective Repository Date:2017-09-07 09/07/2017 Toshia H Primary Insurance:[facility] Ardara [id number]OB: [facility] [id number], [place] Number: Repository [address]Aru: 330 [id number] [phone] (HP) Date:4141-28-10AG [address] [address]VZUUMASMX, [place] [address]PL: CHECK WEBSITE 09/07/2017 Secondary NOT GIVENUNK Kulwinder Insurance:SELF PAY [facility] Number: Effective Repository Date:2017-08-30 08/29/2017 MEREDATH C Primary Insurance:[facility] Ardara [id number] K[address]YB: [facility] [id number], Number: [place]ository [place] [address]Zzk: [id number] Date:1408-25-76RK [address] () [address]LVAKZTNRL, [place] [address]LM: CHECK WEBSITE 08/29/2017 Secondary NOT GIVENUNK Kulwinder Insurance:SELF PAY [facility] Number: Effective Repository Date:2017-08-29 08/29/2017 Toshia H [facility] Ardara [id number] [facility]: [facility] [id number], [place] Number: Repository [address]Jpd: 330 [id number] [phone] (HP) Date:7056-26-61OB [address] [address]LKYPNGXMT, [place] [address]VF: CHECK WEBSITE 08/29/2017 Secondary NOT GIVENUNK Ardara Insurance:SELF PAY [facility] Number: Effective Repository Date:2017-08-25 08/23/2017 Toshia H Primary Insurance:[facility] LUIS Miramontes [id number]DOB: [facility] [id number] [place] Number: Repository [address]Jci: 330 [id number] [phone] () Date:6184-58-36UB [address] [address]WRXKQFYZN, [place] [address]YP: CHECK WEBSITE 08/23/2017 Secondary NOT GIVENUNK Kulwinder Insurance:SELF PAY [facility] Number: Effective Repository Date:2017-08-16 08/16/2017 Toshia H Primary Insurance:[facility] LUIS Miramontes [id number]DOB: [facility] [id number] [facility] [place] Number: Repository [address]Wls: 330 [id number] [phone] (HP) Date:8023-55-62TS [address] [address]OGMTDIWAF, [place] [address]ON: CHECK WEBSITE 08/16/2017 Secondary NOT GIVENUNK Ardara Insurance:SELF PAY [facility] Number: Effective Repository Date:2017-08-02 08/16/2017 Toshia H Primary Insurance:[facility] LUIS Miramontes [id number]DOB: [facility] [id number] View Behavioral [facility] [place] Number: Repository [address]Uib: 330 [id number] [phone] (HP) Date:3465-72-02RI [address] [address]PANALEFQG, [place] [address]IQ: CHECK WEBSITE 08/16/2017 Secondary NOT GIVENUNK Kulwinder Insurance:SELF PAY [facility] Number: Effective Repository Date:2017-08-02 08/02/2017 Toshia H Primary Insurance:[facility] LUIS Miramontes [id number]DOB: [facility] [id number] View Behavioral [facility] [place] Number: Repository [address]Vxx: 330 [id number] [phone] (HP) Date:7484-73-72RJ [address] [address]BQSOQZKTU, [place] [address]NL: CHECK WEBSITE 08/02/2017 Secondary NOT GIVENUNK Kulwinder Insurance:SELF PAY [facility] Number: Effective Repository Date:2017-07-18 08/02/2017 Toshia H Primary Insurance:[facility] LUIS Miramontes [id number] [facility]: [facility] [id number] Number: Repository [address]Uiy: 330 [id number] [phone] () Date:7088-97-91EL [address] [address]SCUJHTXEH, [place] [address]FD: CHECK WEBSITE 08/02/2017 Secondary NOT GIVENUNK Kulwinder Insurance:SELF PAY [facility] Number: Effective Repository Date:2017-07-28 07/12/2017 Toshia H Primary Insurance:[facility] LUIS Miramontes [id number] [facility]: [facility] [id number][place] Number: Repository [address]Lze: 330 [id number] [phone] () Date:0599-58-43QA [address] [address]XTYVRHICU, [place] [address]HP: CHECK WEBSITE 07/12/2017 Secondary NOT GIVENUNK Ardara Insurance:SELF PAY [facility] Number: Effective Repository Date:2017-06-16 06/21/2017 Toshia H Primary Insurance:[facility] LUIS [id number] [facility]: [facility] [id number], [place] Number: Repository [address]Mpf: 330 [id number] [phone] (HP) Date:0457-69-42VO [address] [address]ZYERPWAEU, [place] [address]YQ: CHECK WEBSITE 06/21/2017 Secondary NOT GIVENUNK Ardara Insurance:SELF PAY [facility] Number: Effective Repository Date:2017-06-21 06/20/2017 Toshia H Primary Insurance:[facility] LUIS [id number] [facility]: [facility] [id number], [place] Number: Repository [address]Dfk: 330 [id number] [phone] (HP) Date:1661-06-82QA [address] [address]LESRFNHRO, [place] [address]DL: CHECK WEBSITE 06/20/2017 Secondary NOT GIVENUNK Kulwinder Insurance:SELF PAY [facility] Number: Effective Repository Date:2017-05-10 06/09/2017 Toshia H Primary Insurance:[facility] LUIS [id number] [facility]: [facility] [id number], [place] Number: Repository [address]Kmi: 330 [id number] [phone] (HP) Date:3794-61-45KS [address] [address]NKJEJTQCM, [place] [address]YW: CHECK WEBSITE 06/09/2017 Secondary NOT GIVENUNK Kulwinder Insurance:SELF PAY [facility] Number: Effective Repository Date:2017-05-17 06/01/2017 Toshia H Primary Insurance:[facility] LUIS [id number] [facility]: [facility] [id number], [place] Number: Repository [address]Mzb: 330 [id number] [phone] (HP) Date:3779-30-11TT [address] [address]VJZPOLSPM, [place] [address]XZ: CHECK WEBSITE 06/01/2017 Secondary NOT GIVENUNK Ardara Insurance:SELF PAY [facility] Number: Effective Repository Date:2017-05-20
== END ==
PROVIDERS: Family Provider Family Medicine; PCP Family Medicine; Visit Provider Internal Medicine Hematology & Oncology
DX: Z51.11 Encounter for antineoplastic chemotherapy (principal); C50.411 Malignant neoplasm of upper-outer quadrant of right female breast
CPT/HCPCS: 96367; 96376; 96413; J7040; J7050; A4216; J2405; J3490; J9201

== ENCOUNTER 2018-05-14 10:55 | Emergency (ER) | payer OTHER, SELFPAY ==
[2018-05-09 10:23] VITALS: BMI 30.2
[2018-05-14 10:57] VITALS: BP 167/107; PULSE 103; RESP 20; TEMP 36.6; O2SAT 98; BMI 31.3
--- NOTE | 2018-05-14 11:07 | RAD_ITS ---
STUDY: X-RAY - LUMBAR SPINE REASON FOR EXAM: Female, 47 years old. T Trauma RAD Spine TECHNIQUE: 3 view(s) of the lumbar spine were obtained. COMPARISON: None FINDINGS: There is straightening of the normal lumbar lordosis. There is multilevel endplate spondylosis of the lumbar vertebrae. There is multi-level degenerative disc disease with multi-level disc space narrowing. The soft tissue structures are unremarkable. RAD/Lumbar Spine 2 or 3 Views IMPRESSION: Degenerative changes of the spine. Electronically Signed: Nicole Flood MD at 11:41 EST Tel , Service support ,
--- NOTE | 2018-05-14 11:07 | RAD_ITS ---
STUDY: X-RAY - RIGHT KNEE REASON FOR EXAM: Female, 47 years old. Pain. TECHNIQUE: 4 view(s) of the knee. COMPARISON: None. FINDINGS: Normal visualized distal femur. Normal visualized proximal tibia and fibula. Normal proximal tibiofibular articulation. There is no demonstrated fracture. Normal medial femorotibial compartment. Normal lateral femorotibial compartment. Normal patellofemoral articulation. There is no demonstrated joint effusion. There are atherosclerotic calcifications. RAD/Knee 4 or More Views IMPRESSION: Normal x-ray examination of the knee. Electronically Signed: Abilio Orr MD at 12:07 EST , Service support ,
--- NOTE | 2018-05-14 11:17 | ED.DCSUM_ITS ---
- ER Visit Summary Date of Service: 05/14/18 Chief Complaint: Fall History of Present Illness: The patient is a 47 F presents to the emergency department mechanical fall. The patient has a history of metastatic breast cancer. 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 She was in her normal state of health. She got up from the desk, tripped over a cord, and fell to the ground. She landed on her right knee and twisted her back. Since then, she had some pain in the knee. She did not strike her head. She denies loss of consciousness. She has been able to ambulate. Physical Examination: Examination is relatively unremarkable. She does have slight pain with palpation of the knee. There is no effusion. Her extension is preserved. There is no gross laxity. She has no tenderness over the hips. She has minimal pain in the left paralumbar muscles. There is no midline ten derness. She has no radicular symptoms. Her pulses and reflexes are normal. Her gait is stable. Test Results: [] Emergency Department Course and Treatment: The patient declined any analgesics. I did obtain plain films of the knee and the lumbar spine. These are both unremarkable for acute process. She is able to ambulate without issue. She has no red flag symptoms. The patient is requesting to go back to work. I do feel that this is reasonable. She will follow-up with [facility] care as needed. The patient will be discharged. Treatment Plan: [] Disposition: Discharge Impression: 1. Lumbar strain status post fall This note was generated with [employer] dictation software. It may contain incorrect words, spelling, and punctuation that were not noted in review of the chart prior to signing ED Disposition - Plan for ED Patient: Chief Complaint: Fall Instructions: ED Sprain Strain Lumbar [facility] [GROUP OF PHYSICIANS] -
[2018-05-14 11:46] VITALS: BP 185/84; PULSE 78; RESP 18
== END 2018-05-14 11:49 | disposition home or self-care (01) ==
LOC: ED 11:37
PROVIDERS: Emergency Provider Emergency Medicine; Family Provider Family Medicine; PCP Family Medicine
DX: S39.012A Strain of muscle, fascia and tendon of lower back, initial encounter (principal); W18.09XA Striking against other object with subsequent fall, initial encounter; Y93.89 Activity, other specified; Y92.239 Unspecified place in hospital as the place of occurrence of the external cause; Y99.0 Civilian activity done for income or pay; M25.561 Pain in right knee
CPT/HCPCS: 72100; 73564; 99282

== ENCOUNTER 2018-05-16 08:59 | Outpatient (RCR) | payer OTHER, SELFPAY ==
[2018-04-17 14:19] VITALS: BMI 30.2
[2018-04-19 08:37] LABS: Absolute Lymphocyte Count 2.05 X10^3/ul (0.83-4.51); Absolute Neutrophil Count 3.2 X10^3/uL (2.0-7.7); Basophil# 0.03 X10^3/uL; Basophil% 0.5 % (0-1); Eosinophil# 0.06 X10^3/uL; Hematocrit 33.9 % (37-47); Hemoglobin 11.1 g/dl (12.0-15.0); Lymphocyte # 2.05 X10^3/ul (4.0); Mean Corp Hgb Conc 32.7 g/gl (32-36); Mean Corpuscular Hgb 30.6 pg (27.0-32.0); Mean Corpuscular Volume 93.4 fL (81-99); Mean Platelet Vol. 9.8 fl (6.2-12.0); Monocyte# 0.51 X10^3/uL; Monocyte% 8.7 % (0-10); Neutrophil # 3.19 X10^3/uL (2.7-7.7); Neutrophil % 54.6 % (47-70); Platelet Count 316 K/mm3 (150-450); RBC Distribution Width CV 12.1 % (11.6-14.6); RBC Distribution Width SD 39.8 fl (35.1-43.9); Red Blood Count 3.63 M/mm3 (4.2-5.4); White Blood Count 5.9 K/mm3 (4.4-11.0)
[2018-04-19 08:38] LABS: POSITIVE COUNT NO; POSITIVE DIFFERENTIAL NO; POSITIVE MORPHOLOGY NO
[2018-04-19 09:16] LABS: AST(SGOT) 13 U/L (15-37); Alanine Aminotransfer ALT/SGPT 20 U/L (13-56); Albumin, Serum 3.1 g/dL (3.2-5.0); Alkaline Phosphatase 108 U/L (45-117); Anion Gap 10 (5-15); BUN 31 mg/dL (7-18); BUN/Creat Ratio 36.8 RATIO (10-20); Bilirubin, Direct 0.07 mg/dL (0.00-0.30); Calcium,Total 9.1 mg/dL (8.5-10.1); Chloride 97 mmol/L (98-107); Creatinine, Serum 0.84 mg/dL (0.55-1.02); EST Glomerular Filtration Rate 76 mL/min (>60); Est Glom Filt Rate - Afr Amer 93 mL/min (>60); Globulin 4.8 g/dL (2.2-4.2); Glucose 417 mg/dL (74-106); Potassium 4.9 mmol/L (3.5-5.1); Protein, Total 7.9 g/dL (6.4-8.2); Sodium Level 136 mmol/L (136-145)
[2018-04-25 13:32] LABS: Absolute Lymphocyte Count 1.81 X10^3/ul (0.83-4.51); Absolute Neutrophil Count 3.2 X10^3/uL (2.0-7.7); Basophil# 0.03 X10^3/uL; Basophil% 0.6 % (0-1); Eosinophil# 0.03 X10^3/uL; Eosinophils% 0.6 % (0-5); Hematocrit 31.6 % (37-47); Hemoglobin 10.2 g/dl (12.0-15.0); Lymphocyte # 1.81 X10^3/ul (4.0); Lymphocyte % 34.8 % (19-41); Mean Corp Hgb Conc 32.3 g/gl (32-36); Mean Corpuscular Hgb 29.7 pg (27.0-32.0); Mean Corpuscular Volume 91.9 fL (81-99); Mean Platelet Vol. 9.4 fl (6.2-12.0); Monocyte# 0.13 X10^3/uL; Monocyte% 2.5 % (0-10); Neutrophil % 61.5 % (47-70); Platelet Count 221 K/mm3 (150-450); RBC Distribution Width CV 12.4 % (11.6-14.6); RBC Distribution Width SD 41.9 fl (35.1-43.9); Red Blood Count 3.44 M/mm3 (4.2-5.4); White Blood Count 5.2 K/mm3 (4.4-11.0)
[2018-04-25 13:34] LABS: POSITIVE COUNT NO; POSITIVE DIFFERENTIAL NO; POSITIVE MORPHOLOGY NO
[2018-04-25 14:04] LABS: AST(SGOT) 12 U/L (15-37); Alanine Aminotransfer ALT/SGPT 31 U/L (13-56); Albumin, Serum 3.1 g/dL (3.2-5.0); Alkaline Phosphatase 95 U/L (45-117); Anion Gap 9 (5-15); BUN 22 mg/dL (7-18); BUN/Creat Ratio 33.1 RATIO (10-20); Bilirubin, Direct 0.06 mg/dL (0.00-0.30); Calcium,Total 8.9 mg/dL (8.5-10.1); Chloride 97 mmol/L (98-107); Creatinine, Serum 0.66 mg/dL (0.55-1.02); EST Glomerular Filtration Rate 101 mL/min (>60); Est Glom Filt Rate - Afr Amer 122 mL/min (>60); Globulin 4.8 g/dL (2.2-4.2); Glucose 341 mg/dL (74-106); Potassium 4.3 mmol/L (3.5-5.1); Protein, Total 7.9 g/dL (6.4-8.2); Sodium Level 135 mmol/L (136-145)
[2018-05-09 09:32] LABS: Absolute Lymphocyte Count 1.63 X10^3/ul (0.83-4.51); Absolute Neutrophil Count 2.7 X10^3/uL (2.0-7.7); Basophil# 0.01 X10^3/uL; Basophil% 0.2 % (0-1); Eosinophil# 0.07 X10^3/uL; Eosinophils% 1.5 % (0-5); Hematocrit 31.8 % (37-47); Hemoglobin 10.1 g/dl (12.0-15.0); Lymphocyte # 1.63 X10^3/ul (4.0); Lymphocyte % 34.8 % (19-41); Mean Corp Hgb Conc 31.8 g/gl (32-36); Mean Corpuscular Hgb 29.8 pg (27.0-32.0); Mean Corpuscular Volume 93.8 fL (81-99); Mean Platelet Vol. 9.6 fl (6.2-12.0); Monocyte# 0.32 X10^3/uL; Monocyte% 6.8 % (0-10); Neutrophil # 2.65 X10^3/uL (2.7-7.7); Neutrophil % 56.7 % (47-70); Platelet Count 226 K/mm3 (150-450); RBC Distribution Width CV 13.4 % (11.6-14.6); RBC Distribution Width SD 45.4 fl (35.1-43.9); Red Blood Count 3.39 M/mm3 (4.2-5.4); White Blood Count 4.7 K/mm3 (4.4-11.0)
[2018-05-09 09:33] LABS: POSITIVE COUNT NO; POSITIVE DIFFERENTIAL NO; POSITIVE MORPHOLOGY NO
[2018-05-09 10:04] LABS: AST(SGOT) 13 U/L (15-37); Alanine Aminotransfer ALT/SGPT 24 U/L (13-56); Albumin, Serum 3.1 g/dL (3.2-5.0); Alkaline Phosphatase 81 U/L (45-117); Anion Gap 8 (5-15); BUN 27 mg/dL (7-18); BUN/Creat Ratio 45.1 RATIO (10-20); Bilirubin, Direct 0.09 mg/dL (0.00-0.30); Calcium,Total 8.6 mg/dL (8.5-10.1); Chloride 105 mmol/L (98-107); EST Glomerular Filtration Rate 113 mL/min (>60); Est Glom Filt Rate - Afr Amer 137 mL/min (>60); Globulin 4.4 g/dL (2.2-4.2); Glucose 194 mg/dL (74-106); Potassium 4.3 mmol/L (3.5-5.1); Protein, Total 7.5 g/dL (6.4-8.2); Sodium Level 141 mmol/L (136-145)
[2018-05-16 09:46] LABS: Absolute Lymphocyte Count 1.64 X10^3/ul (0.83-4.51); Absolute Neutrophil Count 0.8 X10^3/uL (2.0-7.7); Basophil# 0.01 X10^3/uL; Basophil% 0.4 % (0-1); Eosinophil# 0.02 X10^3/uL; Eosinophils% 0.7 % (0-5); Hematocrit 30.8 % (37-47); Hemoglobin 9.7 g/dl (12.0-15.0); Lymphocyte # 1.64 X10^3/ul (4.0); Mean Corp Hgb Conc 31.5 g/gl (32-36); Mean Corpuscular Hgb 29.3 pg (27.0-32.0); Mean Corpuscular Volume 93.1 fL (81-99); Mean Platelet Vol. 8.8 fl (6.2-12.0); Monocyte# 0.24 X10^3/uL; Monocyte% 8.9 % (0-10); Neutrophil # 0.77 X10^3/uL (2.7-7.7); Neutrophil % 28.6 % (47-70); Platelet Count 301 K/mm3 (150-450); RBC Distribution Width CV 13.3 % (11.6-14.6); RBC Distribution Width SD 44.4 fl (35.1-43.9); Red Blood Count 3.31 M/mm3 (4.2-5.4); White Blood Count 2.7 K/mm3 (4.4-11.0)
[2018-05-16 09:47] LABS: Differential Indicated SCAN CRITERIA MET; POSITIVE COUNT NO; POSITIVE DIFFERENTIAL YES; POSITIVE MORPHOLOGY NO
[2018-05-16 10:15] VITALS: BP 148/70; PULSE 93; RESP 18; TEMP 36.4; O2SAT 100; BMI 30.9
[2018-05-16 10:15] LABS: AST(SGOT) 15 U/L (15-37); Alanine Aminotransfer ALT/SGPT 33 U/L (13-56); Albumin, Serum 3.2 g/dL (3.2-5.0); Alkaline Phosphatase 92 U/L (45-117); Anion Gap 9 (5-15); BUN 36 mg/dL (7-18); BUN/Creat Ratio 49.1 RATIO (10-20); Bilirubin, Direct 0.06 mg/dL (0.00-0.30); Calcium,Total 9.2 mg/dL (8.5-10.1); Chloride 99 mmol/L (98-107); Creatinine, Serum 0.73 mg/dL (0.55-1.02); EST Glomerular Filtration Rate 90 mL/min (>60); Est Glom Filt Rate - Afr Amer 109 mL/min (>60); Globulin 4.5 g/dL (2.2-4.2); Glucose 264 mg/dL (74-106); Potassium 4.3 mmol/L (3.5-5.1); Protein, Total 7.7 g/dL (6.4-8.2); Sodium Level 138 mmol/L (136-145)
== END 2018-05-16 09:59 | disposition home or self-care (01) ==
LOC: LAB 08:59
PROVIDERS: Family Provider Family Medicine; PCP Family Medicine; Referring Provider Internal Medicine Hematology & Oncology; Visit Provider Internal Medicine Hematology & Oncology
DX: C50.411 Malignant neoplasm of upper-outer quadrant of right female breast (principal); C78.02 Secondary malignant neoplasm of left lung; Z17.1 Estrogen receptor negative status [ER-]
CPT/HCPCS: 36415; 80048; 80076; 85025

== ENCOUNTER → 2018-05-16 09:54 | Outpatient (CLI) | payer OTHER, SELFPAY ==
[2018-05-09 10:23] VITALS: BMI 30.2
[2018-05-14 10:57] VITALS: BMI 31.3
[2018-05-16 10:21] VITALS: BP 148/70; PULSE 93; RESP 18; TEMP 36.4; O2SAT 100; BMI 30.9
== END ==
PROVIDERS: Family Provider Family Medicine; PCP Family Medicine; Referring Provider Internal Medicine Hematology & Oncology; Visit Provider Internal Medicine Hematology & Oncology
DX: C50.411 Malignant neoplasm of upper-outer quadrant of right female breast (principal)
CPT/HCPCS: J7030; J7040; J2405; J3490; J9201

== ENCOUNTER 2018-05-22 06:19 | Outpatient (RCR) | payer OTHER, SELFPAY ==
[2018-05-19 12:34] VITALS: BMI 30.9
[2018-05-19 14:30] VITALS: BP 148/70; PULSE 93; RESP 18; TEMP 36.4; O2SAT 100
[2018-05-22 07:26] LABS: Absolute Lymphocyte Count 2.14 X10^3/ul (0.83-4.51); Absolute Neutrophil Count 1.9 X10^3/uL (2.0-7.7); Basophil# 0.01 X10^3/uL; Basophil% 0.2 % (0-1); Eosinophil# 0.07 X10^3/uL; Eosinophils% 1.5 % (0-5); Hematocrit 31.2 % (37-47); Hemoglobin 9.9 g/dl (12.0-15.0); Lymphocyte # 2.14 X10^3/ul (4.0); Mean Corp Hgb Conc 31.7 g/gl (32-36); Mean Corpuscular Hgb 30.4 pg (27.0-32.0); Mean Corpuscular Volume 95.7 fL (81-99); Mean Platelet Vol. 9.2 fl (6.2-12.0); Monocyte# 0.65 X10^3/uL; Monocyte% 13.7 % (0-10); Neutrophil # 1.87 X10^3/uL (2.7-7.7); Neutrophil % 39.2 % (47-70); Platelet Count 259 K/mm3 (150-450); RBC Distribution Width CV 13.4 % (11.6-14.6); RBC Distribution Width SD 44.6 fl (35.1-43.9); Red Blood Count 3.26 M/mm3 (4.2-5.4); White Blood Count 4.8 K/mm3 (4.4-11.0)
[2018-05-22 07:28] LABS: POSITIVE COUNT NO; POSITIVE DIFFERENTIAL NO; POSITIVE MORPHOLOGY NO
[2018-05-22 08:50] LABS: AST(SGOT) 13 U/L (15-37); Alanine Aminotransfer ALT/SGPT 23 U/L (13-56); Albumin, Serum 3.1 g/dL (3.2-5.0); Alkaline Phosphatase 78 U/L (45-117); Anion Gap 7 (5-15); BUN 30 mg/dL (7-18); BUN/Creat Ratio 48.7 RATIO (10-20); Bilirubin, Direct < 0.05 mg/dL (0.00-0.30); Calcium,Total 8.3 mg/dL (8.5-10.1); Chloride 105 mmol/L (98-107); Creatinine, Serum 0.62 mg/dL (0.55-1.02); EST Glomerular Filtration Rate 110 mL/min (>60); Est Glom Filt Rate - Afr Amer 133 mL/min (>60); Globulin 4.4 g/dL (2.2-4.2); Glucose 162 mg/dL (74-106); Potassium 4.4 mmol/L (3.5-5.1); Protein, Total 7.5 g/dL (6.4-8.2); Sodium Level 139 mmol/L (136-145)
== END 2018-06-15 13:53 | disposition home or self-care (01) ==
LOC: LAB 06:19
PROVIDERS: Family Provider Family Medicine; PCP Family Medicine; Referring Provider Internal Medicine Hematology & Oncology; Visit Provider Internal Medicine Hematology & Oncology
DX: C50.411 Malignant neoplasm of upper-outer quadrant of right female breast (principal); C78.02 Secondary malignant neoplasm of left lung; Z17.1 Estrogen receptor negative status [ER-]
CPT/HCPCS: 36415; 80048; 80076; 85025

== ENCOUNTER → 2018-05-22 11:07 | Outpatient (CLI) | payer OTHER, SELFPAY ==
[2018-05-19 12:34] VITALS: BMI 30.9
--- NOTE | 2018-05-22 11:11 | VDLE_ITS ---
Reason For Study: BLE swelling RIGHT LEFT GSV is normal. GSV is normal. CFV is compressible, spontaneous, phasic, CFV is compressible, spontaneous, phasic, competent and demonstrates normal competent, and demonstrates normal augmentation. augmentation. FV is compressible, spontaneous, phasic, FV is compressible, spontaneous, phasic, competent and demonstrates normal competent and demonstrates normal augmentation. augmentation. POP V is compressible, spontaneous, phasic, POP V is compressible, spontaneous, phasic, competent and demonstrates normal competent and demonstrates normal augmentation. augmentation. T/P Trunk is compressible. T/P Trunk is compressible. PTV is compressible. PTV is compressible. PER V appear compressible, difficult to PER V appear compressible, difficult to visualize. visualize. Procedure Exam performed in department. The study was technically difficult. Due to BLE edema/swelling below knee. A preliminary report was called and/or faxed to Dr. Barakat @ [phone] @ 11:40 am. Interpretation Summary No evidence for acute deep venous thrombosis bilateral lower extremities with patent and compressible bilateral great saphenous veins. Technically difficult exam with poor peroneal vein visualization bilaterally Ordering Physician: Clifford Barakat Referring Physician: Jacinto Person Performed By: Eden Kent, CHUY, RVT
== END ==
PROVIDERS: Family Provider Family Medicine; PCP Family Medicine; Referring Provider Internal Medicine Hematology & Oncology; Visit Provider Internal Medicine Hematology & Oncology
DX: C50.411 Malignant neoplasm of upper-outer quadrant of right female breast (principal); Z17.1 Estrogen receptor negative status [ER-]
CPT/HCPCS: 93970

== ENCOUNTER → 2018-05-26 07:28 | Outpatient (CLI) | payer OTHER, SELFPAY ==
[2018-05-19 12:34] VITALS: BMI 30.9
--- NOTE | 2018-05-26 07:30 | NM_ITS ---
CLINICAL: 47-year-old female with history of carcinoma of the breast. WHOLE BODY 99m Tc MDP RADIONUCLIDE BONE SCINTIGRAPHY COMPARISON: Previous whole body bone scintigraphy study dated 03/30/2018, plain film radiograph reports lumbar spine and right knee 05/14/2018 FINDINGS: Following the intravenous administration of 24.1 mCi of 99m Tc MDP, whole body bone images reveal: 1. Persistent increased radiopharmaceutical concentration is noted in the eighth thoracic vertebra, the right proximal tibial metaphysis and distal sternum and greater trochanteric aspect of the left proximal femur. The previously defined right anterolateral 11th rib abnormality is not defined on the present examination. 2. Facilitated uptake is currently visualized in the acromioclavicular and sternoclavicular compartments of the bilateral shoulders, right and left knees, elbows bilaterally and third lumbar vertebra. 3. The remaining skeletal structures are scintigraphically unremarkable with normal-appearing renal images and urinary bladder activity identified. NM/Bone Scan Whole Body IMPRESSION: 1. The increase in radiopharmaceutical concentration redemonstrated in the sternum, a thoracic vertebra, right proximal tibial metaphysis and left proximal femur may represent limited skeletal metastatic disease. There is resolution of the prior defined right anterolateral 11th rib abnormality. 2. 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 3. Overall compared to the previous whole body bone scintigraphy study dated 03/30/2018, there is no significant interval change. Meticulous attention paid to the appendicular and axial skeletal structures demonstrates no evidence of acute trauma-fracture on the current examination. Electronically Signed: Clay Real DO at 8:23 EST Tel , Service support ,
== END ==
PROVIDERS: Family Provider Family Medicine; PCP Family Medicine; Referring Provider Internal Medicine Hematology & Oncology; Visit Provider Internal Medicine Hematology & Oncology
DX: C50.411 Malignant neoplasm of upper-outer quadrant of right female breast (principal); Z17.1 Estrogen receptor negative status [ER-]; C78.02 Secondary malignant neoplasm of left lung; C79.51 Secondary malignant neoplasm of bone
CPT/HCPCS: 78306

== ENCOUNTER → 2018-05-29 07:58 | Outpatient (CLI) | payer OTHER, SELFPAY ==
[2018-05-19 12:34] VITALS: BMI 30.9
--- NOTE | 2018-05-29 08:00 | CT_ITS ---
STUDY: CT ABDOMEN AND PELVIS WITH CONTRAST REASON FOR EXAM: Female, 47 years old. Breast cancer with bone metastases. History of hysterectomy. RADIATION DOSAGE (If Supplied By Facility): CTDIvol = ( 18.26 ) mGy, DLP = ( 2106.58 ) mGycm TECHNIQUE: Transaxial images were obtained from the dome of the diaphragm to the symphysis pubis with oral contrast. 100CC ml of Isovue 300 contrast was administered. Sagittal and coronal images were reconstructed. Individualized dose optimization techniques were used for this CT. COMPARISON: Bone scan, May 26, 2018. CT of the abdomen pelvis, March 27, 2018. FINDINGS: The visualized lung bases are unremarkable. The visualized portions of the heart are within normal limits. The liver is mildly enlarged and slightly fatty infiltrated. There is no focal mass. Normal gallbladder and extrahepatic biliary system. Normal spleen. Normal pancreas. Normal bilateral adrenal glands. Normal right kidney. Normal left kidney. Normal visualized ovaries. Normal visualized stomach. Normal small intestine. Normal colon. The appendix is visualized and appears normal. There is minimal atherosclerotic changes of the abdominal aorta without aneurysm or dissection. Normal inferior vena cava. Normal retroperitoneum. The urinary bladder is well distended. There is no mass or wall thickening. Normal vaginal cuff. There are some tissue densities along both pelvic sidewalls thought to represent retained ovaries. No pelvic lymphadenopathy. No free air or free fluid is seen within the peritoneal cavity. Normal abdominal wall. There are degenerative changes of the lumbar spine, sacroiliac joints. No visualized lytic or blastic lesions. And hips. CT/Abdomen/Pelvis WITH Contrast IMPRESSION: No acute intra-abdominal or pelvic abnormality or major interval change. There is no evidence of metastatic process. Electronically Signed: Mark Luke DO at 16:52 EST Tel [phone], Service support ,
--- NOTE | 2018-05-29 08:00 | CT_ITS ---
STUDY: CT CHEST WITH CONTRAST REASON FOR EXAM: Female, 47 years old. Breast cancer with bone metastases. History of right lumpectomy. RADIATION DOSAGE (If Supplied By Facility): CTDIvol = ( 18.26 ) mGy, DLP = ( 2106.58 ) mGycm TECHNIQUE: Transaxial imaging was performed following intravenous administration of 100CC ml of Isovue 300 contrast material. Multiplanar coronal and sagittal images were reformatted. Individualized dose optimization techniques were used for this CT. COMPARISON: Bone scan, June 05, 2018. CT of the chest, March 27, 2018. FINDINGS: There is a left jugular Port-A-Cath with its tip in the distal superior vena cava. The lungs are normal. There is no demonstrated pleural abnormality. Normal heart and pericardium. Normal mediastinum. Normal hilar regions. Normal enhanced pulmonary arteries. Normal aorta arch and descending thoracic aorta. There are multi-level degenerative changes of the thoracic spine. There are no visualized lytic or blastic lesion within the thoracic spine and ribs or sternum. There are marked degenerative changes at the junction of the bilateral first ribs and sternum thought to account for the increased activity seen on bone scan. There are degenerative changes of the thoracic spine are thought to account for the activity seen in the mid thoracic spine on bone scan. Again seen is a soft tissue density in the right supraclavicular region consistent with lymph node. This now measures 2.4 x 1.9 x 2 cm. This has markedly increased in size from prior exam. There is no demonstrated abnormality of the visualized upper abdomen. CT/Chest WITH Contrast IMPRESSION: 1. Enlarging right supraclavicular lymph node when compared to prior study. 2. No other interval change when compared to the prior study. Electronically Signed: Mark Luke DO at 17:00 EST Tel [phone], Service support ,
== END ==
PROVIDERS: Family Provider Family Medicine; PCP Family Medicine; Referring Provider Internal Medicine Hematology & Oncology; Visit Provider Internal Medicine Hematology & Oncology
DX: C50.411 Malignant neoplasm of upper-outer quadrant of right female breast (principal); Z17.1 Estrogen receptor negative status [ER-]; C78.02 Secondary malignant neoplasm of left lung; C79.51 Secondary malignant neoplasm of bone
CPT/HCPCS: 71260; 74177; Q9967; A4216

== ENCOUNTER → 2018-06-16 10:42 | Outpatient (CLI) | payer OTHER, SELFPAY ==
[2018-05-29 09:59] VITALS: BMI 34.9
[2018-06-16 11:09] VITALS: BP 143/81; PULSE 97; RESP 16; TEMP 37.5; O2SAT 100; BMI 31.8
== END ==
PROVIDERS: Family Provider Family Medicine; PCP Family Medicine; Referring Provider Internal Medicine Hematology & Oncology; Visit Provider Internal Medicine Hematology & Oncology
DX: C79.51 Secondary malignant neoplasm of bone (principal); C80.1 Malignant (primary) neoplasm, unspecified
CPT/HCPCS: 96365; J3489; J7050; A4216

== ENCOUNTER → 2018-06-26 13:12 | Outpatient (CLI) | payer OTHER, SELFPAY ==
[2018-06-26 13:12] VITALS: BMI 31.8
[2018-06-26 13:52] LABS: Hemoglobin A1c 15.1 % (4.2-6.3)
[2018-06-26 14:04] LABS: Vitamin D,25 Hydroxy 14.9 ng/mL (29.95-100.01)
[2018-06-26 14:07] LABS: Thyroid Stim Hormone (TSH) 0.33 uIU/mL (0.358-3.74)
== END ==
PROVIDERS: Family Provider Internal Medicine; PCP Internal Medicine; Referring Provider Internal Medicine; Visit Provider Internal Medicine
DX: E04.1 Nontoxic single thyroid nodule (principal); C50.411 Malignant neoplasm of upper-outer quadrant of right female breast; Z17.1 Estrogen receptor negative status [ER-]; E11.65 Type 2 diabetes mellitus with hyperglycemia
CPT/HCPCS: 36415; 82306; 83036; 84443

== ENCOUNTER 2018-07-10 13:19 | Outpatient (RCR) | payer OTHER, SELFPAY ==
[2018-06-16 13:53] VITALS: BP 148/70; PULSE 93; RESP 18; TEMP 36.4; O2SAT 100
[2018-06-26 13:12] VITALS: BMI 31.8
[2018-07-10 14:14] LABS: Absolute Lymphocyte Count 2.33 X10^3/ul (0.83-4.51); Absolute Neutrophil Count 3.9 X10^3/uL (2.0-7.7); Basophil# 0.01 X10^3/uL; Basophil% 0.1 % (0-1); Eosinophil# 0.07 X10^3/uL; Hemoglobin 10.4 g/dl (12.0-15.0); Lymphocyte # 2.33 X10^3/ul (4.0); Lymphocyte % 34.5 % (19-41); Mean Corp Hgb Conc 32.5 g/gl (32-36); Mean Corpuscular Hgb 29.1 pg (27.0-32.0); Mean Corpuscular Volume 89.6 fL (81-99); Mean Platelet Vol. 9.3 fl (6.2-12.0); Monocyte# 0.42 X10^3/uL; Monocyte% 6.2 % (0-10); Neutrophil # 3.93 X10^3/uL (2.7-7.7); Neutrophil % 58.2 % (47-70); Platelet Count 302 K/mm3 (150-450); RBC Distribution Width CV 12.3 % (11.6-14.6); RBC Distribution Width SD 40.2 fl (35.1-43.9); Red Blood Count 3.57 M/mm3 (4.2-5.4); White Blood Count 6.8 K/mm3 (4.4-11.0)
[2018-07-10 14:26] LABS: POSITIVE COUNT NO; POSITIVE DIFFERENTIAL NO; POSITIVE MORPHOLOGY NO
[2018-07-10 14:30] LABS: AST(SGOT) 13 U/L (15-37); Alanine Aminotransfer ALT/SGPT 18 U/L (13-56); Alkaline Phosphatase 95 U/L (45-117); Anion Gap 5 (5-15); BUN 31 mg/dL (7-18); BUN/Creat Ratio 39.1 RATIO (10-20); Bilirubin, Direct 0.08 mg/dL (0.00-0.30); Calcium,Total 8.9 mg/dL (8.5-10.1); Chloride 102 mmol/L (98-107); Creatinine, Serum 0.79 mg/dL (0.55-1.02); EST Glomerular Filtration Rate 82 mL/min (>60); Est Glom Filt Rate - Afr Amer 99 mL/min (>60); Globulin 5.1 g/dL (2.2-4.2); Glucose 287 mg/dL (74-106); Potassium 4.7 mmol/L (3.5-5.1); Protein, Total 8.1 g/dL (6.4-8.2); Sodium Level 135 mmol/L (136-145)
== END 2018-07-10 14:00 | disposition home or self-care (01) ==
LOC: LAB 13:19
PROVIDERS: Family Provider Family Medicine; PCP Family Medicine; Referring Provider Internal Medicine Hematology & Oncology; Visit Provider Internal Medicine Hematology & Oncology
DX: E04.1 Nontoxic single thyroid nodule (principal); C50.411 Malignant neoplasm of upper-outer quadrant of right female breast; Z17.1 Estrogen receptor negative status [ER-]; E11.65 Type 2 diabetes mellitus with hyperglycemia
CPT/HCPCS: 36415; 80048; 80076; 85025

== ENCOUNTER → 2018-07-11 07:50 | Outpatient (CLI) | payer OTHER, SELFPAY ==
[2018-06-26 13:12] VITALS: BMI 31.8
[2018-07-11 08:12] VITALS: BP 148/70; PULSE 88; RESP 16; TEMP 36.9; O2SAT 100; BMI 30.4
[2018-07-11] MEDS: Metoclopramide 10 MG/2 ML Vial IV (08:32)
== END ==
PROVIDERS: Family Provider Family Medicine; PCP Family Medicine; Visit Provider Internal Medicine Hematology & Oncology
DX: Z51.11 Encounter for antineoplastic chemotherapy (principal); C50.411 Malignant neoplasm of upper-outer quadrant of right female breast
CPT/HCPCS: 96367; 96376; 96413; J7050; A4216; J2405; J3490; J9264

== ENCOUNTER → 2018-07-14 13:10 | Outpatient (CLI) | payer OTHER, SELFPAY ==
[2018-07-14 09:35] VITALS: BMI 31.8
[2018-07-14 13:27] VITALS: BP 148/73; PULSE 99; RESP 18; TEMP 37.2; O2SAT 98; BMI 30.4
== END ==
PROVIDERS: Family Provider Family Medicine; PCP Family Medicine; Referring Provider Internal Medicine Hematology & Oncology; Visit Provider Internal Medicine Hematology & Oncology
DX: C79.51 Secondary malignant neoplasm of bone (principal)
CPT/HCPCS: 96365; J3489; J7050; A4216

== ENCOUNTER → 2018-11-16 13:29 | Outpatient (CLI) | payer OTHER, SELFPAY ==
[2018-07-14 13:27] VITALS: BMI 30.4
--- NOTE | 2018-11-16 13:00 | PET_ITS ---
EXAMINATION: FDG PET CT INDICATIONS: A 48-year-old female with history of carcinoma of the breast presenting for restaging examination. COMPARISON EXAMINATION: Prior FDG PET study dated 08/29/17, CT of the chest report dated 10/20/18. INDEX LESION SIZE SUV INTERPRETATION PERSISTENT and NEW: Right supraclavicular region, right axilla 27.5 mm largest (frame 262) compared to 20.7 mm, 08/29/17 7.7 (max) compared to 5.9, 08/29/17 Fulfills quantitative criteria for viable neoplasm, interim metabolic progression TECHNIQUE: Following the intravenous administration of 15.3 mCi of F-18 deoxyglucose via the left antecubital fossa, multiplanar image acquisitions of the neck, chest, abdomen and pelvis to level of mid thigh, obtained at one hour post radiopharmaceutical administration contemporaneously interpreted with the current CT of the neck, chest, abdomen and pelvis to level of mid thigh, dated 11/16/18 via coregistration and prior FDG PET study dated 08/29/17, CT of the chest report dated 10/20/18 reveal: SERUM GLUCOSE LEVEL: 98 mg/dl. HEIGHT: 67 inches. WEIGHT: 210 lbs. FINDINGS: 1. Redefined and newly apparent foci of increased FDG concentration noted in the right supraclavicular region and right axilla. The calculated maximum standard uptake value is 7.7 compared to 5.9 defined on the FDG PET study dated 08/29/18. The maximal axial diameter of the largest individual metabolic, morphologic abnormality on review of CT of the chest dated 11/16/18 is 27.5 mm (transverse). 2. Normal physiologic distribution of the radiopharmaceutical is apparent in the hepatic (3.0/3.0) and splenic parenchyma, both renal units, bladder and visualized intestinal tract. There is uniform distribution of the radiopharmaceutical concentration defined in the visualized cerebellar hemispheres and cerebral cortical structures.? Diffuse intestinal tract activity is noted throughout all four quadrants of the abdominal-pelvic retroperitoneum, mesentery consistent with normal physiologic distribution of the radiopharmaceutical. Pertinent CT findings are as follows. CHEST: Wbmn-V-Jczy-MediPort placement is noted. Subcentimeter left and additional right axillary soft tissue densities are ametabolic. There are no parenchymal densities-nodules defined in the right-left hemithorax demonstrating discernible, quantitatively significant increased glucose metabolism. ABDOMEN AND PELVIS: Atherosclerotic calcification is defined in the abdominal aorta without evidence of dilatation, aneurysm formation. Pelvic arterial calcification is observed. Subcentimeter bilateral inguinal soft tissue is non-glucose avid. Questionable evidence of cortical cyst formation is defined in the right kidney. SKELETAL: Degenerative changes defined in the cervical, thoracic and lumbar spine demonstrate no evidence for glucose hypermetabolism. PET/PET/CT Tumor Base -Thigh Subs IMPRESSION: 1. ABNORMAL EXAMINATION INDICATIVE OF MALIGNANT-VIABLE NEOPLASM. 2. Increased glucose concentration redefined and newly apparent in the right supraclavicular region, right axilla fulfills quantitative criteria for viable neoplasm. 3. Overall, compared to the prior FDG PET study dated 08/29/17, there is interim metabolic progression of defined viable neoplastic disease. Electronic Signature Clay Real D.O. Electronically Signed: Clay Real DO at 23:25 EDT Tel , Service support ,
== END ==
PROVIDERS: Family Provider Family Medicine; PCP Family Medicine; Referring Provider Internal Medicine Hematology & Oncology; Visit Provider Internal Medicine Hematology & Oncology
DX: C50.411 Malignant neoplasm of upper-outer quadrant of right female breast (principal)
CPT/HCPCS: 78815

== ENCOUNTER → 2018-12-07 11:50 | Outpatient (CLI) | payer OTHER, SELFPAY ==
[2018-07-14 13:27] VITALS: BMI 30.4
--- NOTE | 2018-12-07 11:52 | CT_ITS ---
STUDY: CT CHEST WITH T WITHOUT CONTRAST REASON FOR EXAM: Female, 48 years old. Breast cancer, treatment planning scan. RADIATION DOSAGE (If Supplied By Facility): CTDIvol = ( 12.53 ) mGy, DLP = ( 1149.18 ) mGycm TECHNIQUE: Transaxial imaging was performed pre-and post contrast administration of 100ml IV Isovue 300. Individualized dose optimization techniques were used for this CT. COMPARISON: PET scan 11/16/2018. FINDINGS: Very limited exam performed only for treatment planning. Grossly stable soft tissue mass in the right thoracic inlet measuring 3.4 cm. There is some displacement and compression of vascular structures. No other definite masses. Skin thickening of the right breast. Normal lung volumes. Hazy density in both lungs, most consistent with subsegmental atelectasis. No definite nodules in the lungs. No gross mediastinal or hilar mass. Normal heart size. Grossly normal aorta and pulmonary arteries. Grossly negative skeletal structures. Limited views through the upper abdomen show no gross abnormality. CT/Chest W/WO Contrast IMPRESSION: Probable malignant mass at the right thoracic inlet. Right breast skin thickening. No other definite abnormality. Electronically Signed: Abilio Orr MD at 17:13 EDT , Service support ,
[2018-12-07 12:16] LABS: CREATININE FINGERSTICK < 0.6 mg/dL (0.55-1.02)
== END ==
PROVIDERS: Family Provider Family Medicine; PCP Family Medicine; Referring Provider Radiology Radiation Oncology; Visit Provider Radiology Radiation Oncology
DX: C77.3 Secondary and unspecified malignant neoplasm of axilla and upper limb lymph nodes (principal); Z85.3 Personal history of malignant neoplasm of breast
CPT/HCPCS: 71270; Q9967; A4216

== ENCOUNTER → 2019-11-13 09:19 | Outpatient (CLI) | payer OTHER, SELFPAY ==
[2019-11-13 08:33] VITALS: BMI 30.4
[2019-11-13 12:22] LABS: Cholesterol 226 mg/dL (200); High Density Lipoprotein 49 mg/dL; Triglycerides 129 mg/dL; Very Low Density Lipoprotein 26 mg/dL (5-40)
[2019-11-13 12:43] LABS: Hemoglobin A1c 13.9 % (3.8-5.6)
== END ==
PROVIDERS: PCP Internal Medicine; Referring Provider Internal Medicine; Visit Provider Internal Medicine
DX: E11.65 Type 2 diabetes mellitus with hyperglycemia (principal); I10 Essential (primary) hypertension
CPT/HCPCS: 36415; 80061; 83036

== ENCOUNTER → 2019-11-22 11:55 | Outpatient (CLI) | payer OTHER, SELFPAY ==
[2019-11-13 08:33] VITALS: BMI 30.4
== END ==
PROVIDERS: PCP Internal Medicine; Referring Provider Internal Medicine; Visit Provider Internal Medicine
DX: E11.65 Type 2 diabetes mellitus with hyperglycemia (principal)
CPT/HCPCS: 82043; 82570

== ENCOUNTER 2020-01-18 09:41 | Emergency (ER) | payer OTHER, SELFPAY ==
[2019-11-13 08:33] VITALS: BMI 30.4
[2020-01-18] VITALS (7 sets, daily range): BP systolic 131–189; BP diastolic 66–81; PULSE 92–100; RESP 13–20; TEMP 37–37.2; O2SAT 95–100; BMI 32.3
[2020-01-18] MEDS: 0.9% Saline Lock 10 ML Syringe IV (10:40)
[2020-01-18] MEDS: Ondansetron 4 MG/2 ML Vial IV (10:40)
[2020-01-18] MEDS: 0.9 % NaCl (Sterile) Posiflush 10 mL IV (10:40)
[2020-01-18] MEDS: 0.9% Normal Saline 1,000 ML 1000 ML IV (10:40)
[2020-01-18 10:50] LABS: Basophil# 0.03 X10^3/uL; Basophil% 0.8 % (0-1); Eosinophil# 0.05 X10^3/uL; Eosinophils% 1.3 % (0-5); Hematocrit 30.7 % (37-47); Hemoglobin 9.8 g/dL (12.0-15.0); Lymphocyte % 13.3 % (19-41); Mean Corp Hgb Conc 31.9 g/dL (32-36); Mean Corpuscular Volume 90.8 fL (81-99); Mean Platelet Vol. 8.5 fl (6.2-12.0); Monocyte# 0.14 X10^3/uL; Monocyte% 3.7 % (0-10); NRBC Flagged by Analyzer 0 % (0-5); Neutrophil # 3.03 X10^3/uL (2.7-7.7); Neutrophil % 80.4 % (47-70); POSITIVE DIFFERENTIAL YES; Platelet Count 343 K/mm3 (150-450); RBC Distribution Width SD 40.1 fl (35.1-43.9); Red Blood Count 3.38 M/mm3 (4.2-5.4); White Blood Count 3.8 K/mm3 (4.4-11.0)
[2020-01-18 11:01] LABS: Differential Indicated SCAN CRITERIA MET
[2020-01-18 11:05] LABS: ALB/GLOB Ratio 0.5 RATIO (0.9-2.4); AST(SGOT) 28 U/L (15-37); Alanine Aminotransfer ALT/SGPT 30 U/L (13-56); Albumin, Serum 2.2 g/dL (3.2-5.0); Alkaline Phosphatase 84 U/L (45-117); Anion Gap 5 (5-15); BUN 19 mg/dL (7-18); BUN/Creat Ratio 25.5 RATIO (10-20); Calcium,Total 8.3 mg/dL (8.5-10.1); Chloride 97 mmol/L (98-107); Creatinine, Serum 0.74 mg/dL (0.55-1.02); EST Glomerular Filtration Rate 88 mL/min (>60); Est Glom Filt Rate - Afr Amer 106 mL/min (>60); Estimated Creatinine Clearance 88.45 ml/min; Globulin 4.7 g/dL (2.2-4.2); Glucose 194 mg/dL (74-106); Lipase 18 U/L (73-393); Protein, Total 6.9 g/dL (6.4-8.2); Sodium Level 137 mmol/L (136-145)
[2020-01-18 11:12] LABS: Lactic Acid 0.8 mmol/L (0.4-1.9)
[2020-01-18 11:22] LABS: Differential Comment SCANNED
--- NOTE | 2020-01-18 11:38 | ED.VISSUMM ---
- ER Visit Summary Date of Service: 01/18/20 Chief Complaint: Nausea and vomiting History of Present Illness: The patient is a 49 F who presents with nausea and vomiting that is been constant for the past week. Patient has a history of metastatic breast cancer with metastases to the lung and bone. Patient had recent chemotherapy. Patient denies any hematemesis or coffee-ground emesis. Patient denies any diarrhea, melena, or hematochezia. Patient denies abdominal pain. Patient denies any urinary complaints. Patient denies any chest pain or shortness of breath. Patient denies any fevers or chills currently. Physical Examination: Vital signs are stable except for mildly elevated blood pressure of 180/78. Patient is afebrile. Patient is in no acute distress. Oral mucosa is pink and moist. Neck is supple. Trachea is midline. There is no JVD. Heart was regular rate and rhythm. Lungs are clear and equal bilaterally. Abdomen is soft. Bowel sounds are normal. There is no tenderness. Cranial nerves II through XII are intact. There are no focal motor or sensory deficits noted. Extremities are intact. There is no calf tenderness or edema. Test Results: CBC was within normal limits save for a mild anemia with a hemoglobin of 9.8. Comprehensive metabolic profile showed a hypokalemia 3.0. The remainder was essentially within normal limits. Lipase was normal. Urinalysis does not show any evidence of urinary tract infection. Lactate was normal.. Emergency Department Course and Treatment: Patient was given IV fluids and Zofran here. Patient was given a dose of oral potassium here. Patient was also given a dose of Reglan. Case was discussed with Dr. Barakat. He stated that the Reglan seemed to work better for her in the past. Patient stated that she wanted to try to eat something here to see if she can keep food down. If she is able to keep food down she will be discharged home. If not, we will admit her for observation. Patient was able to keep food down. Patient was instructed to eat a bland diet. Patient was instructed to continue her antiemetics as prescribed. Patient states she is still taking omeprazole. Patient was instructed to continue this as prescribed as well. Patient was instructed to drink plenty of fluids. Patient was instructed to follow-up with her primary care physician as well as Dr. Barakat as scheduled. Patient understood and was agreeable with the plan. All questions were answered. Disposition: Discharge home Impression: 1. Nausea and vomiting 2. Metastatic breast cancer This note was generated with [employer] dictation software. It may contain incorrect words, spelling, and punctuation that were not noted in review of the chart prior to signing ED Disposition - Plan for ED Patient: Disposition: Home or Assisted Living Diagnosis: Nausea and vomiting, Metastatic breast cancer Instructions: ED Nausea Vomiting Adult Referrals: Sangeeta Vides MD [Primary Care Provider] - 3-5 Days Clifford Barakat DO [STAFF PHYSICIAN] - Keep Ofelia appointment
[2020-01-18 12:01] LABS: Mucous, Urine 0 SEEN /hpf (<or=2+); White Blood Cells 0 SEEN /hpf (0-5)
[2020-01-18 12:21] LABS: Color, Urine Yellow (Yellow); Glucose, Dipstick 100 mg/dl (Normal); Ketone-Dipstick 5 mg/dl (Negative); Leukocyte Esterase-Dipstick Negative /ul (Negative); Nitrite-Dipstick Negative (Negative); Occult Blood-Urine 50 /ul (Negative); Protein-Dipstick 500 mg/dl (Negative); Urine Bilirubin Dipstick Negative (Negative); Urine Clarity Clear (Clear); Urine Urobilinogen Normal (Normal)
[2020-01-18 12:27] LABS: Bacteria RARE /hpf (None Seen); Red Blood Cells-Urine 0-5 SEEN /hpf (0-5); Squamous Epithelial Cells - UA 0-5 SEEN /hpf (5-10)
[2020-01-18] MEDS: Metoclopramide 10 MG/2 ML Vial IV (14:28)
[2020-01-21 12:10] LABS: Pathologist Review Reviewed
== END 2020-01-18 15:48 | disposition home or self-care (01) ==
PROVIDERS: Emergency Provider Emergency Medicine; PCP Internal Medicine
DX: R11.2 Nausea with vomiting, unspecified (principal); C50.919 Malignant neoplasm of unspecified site of unspecified female breast; E11.9 Type 2 diabetes mellitus without complications; Z79.4 Long term (current) use of insulin
CPT/HCPCS: 36591; 80053; 81001; 83605; 83690; 85025; 96374; 96375; 99285; J7030; A4216; J2405

== ENCOUNTER 2020-03-08 05:20 | Inpatient (IN) | payer OTHER, SELFPAY ==
[2020-01-18 09:43] VITALS: BMI 32.3
[2020-03-08] VITALS (14 sets, daily range): BP systolic 123–175; BP diastolic 56–76; PULSE 101–144; RESP 13–20; TEMP 37.2–39.5; O2SAT 93–98; BMI 32.8; BMI 33.8
--- NOTE | 2020-03-08 05:28 | ED.DCSUM_ITS ---
History of Present Illness Chief Complaint: Fever Informant: Patient Narrative: 49-year-old female with history of stage IV breast cancer on chemotherapy presenting with fever that began this morning at about 2 AM. She states he checked her fever initially it was 100.6. She did not take anything for fever and her fever got up to 102. On arrival it is 103. She states she has the chills and a little bit of shortness of breath. She states that after she walked into the ER she threw up but prior to and currently has no vomiting. She has no diarrhea. No urinary complaints. She denies chest pain. Patient states that her last chemotherapy was a week ago. She called Dr. Dhillon who told her to come to the hospital since she had chemotherapy last week. She has no sick exposures that she knows of. She states her sugars have been high in the 300s today. - Past Medical History (1) Metastatic breast cancer Status: Chronic (2) Diabetes Status: Chronic (3) Neuropathy Status: Chronic (4) HTN (hypertension) Status: Chronic (5) DM (diabetes mellitus), type 2, uncontrolled with complications Status: Chronic (6) Goiter Status: Chronic (7) GERD (gastroesophageal reflux disease) Status: Chronic Past Medical History - Allergies and Home Meds Allergies/Adverse Reactions: Allergies No Known Allergies Allergy (Verified 03/08/20 05:27) Primary Care Physician: Joe Law MD [STAFF PHYSICIAN] - Prior records reviewed: Yes Past Medical History: - - Reviewed in problem list Surgical History: cataract, hysterectomy, - - Breast lumpectomy, IV port for chemo Lives: Spouse/ Significant Other Smoking Status: Former smoker Alcohol: None Drugs: None - Family History Maternal Family History: Family History (Last Updated 11/06/19 @ 10:04 by Selam Swenson) Mother Breast cancer Diabetes Aunt Skin cancer Father Heart disease Hypertension Brother Asthma Grandmother Colon cancer Family History: Reports: Cancer - Breast Paternal Family History: Family History (Last Updated 11/06/19 @ 10:04 by Selam Swenson) Mother Breast cancer Diabetes Aunt Skin cancer Father Heart disease Hypertension Brother Asthma Grandmother Colon cancer Family History: Reports: Diabetes, High Cholesterol Sibling Family History: Family History (Last Updated 11/06/19 @ 10:04 by Selam Swenson) Mother Breast cancer Diabetes Aunt Skin cancer Father Heart disease Hypertension Brother Asthma Grandmother Colon cancer Family History: Reports: No pertinent history Review of Systems General: Reports: Chills, Fever Eyes: Denies: Visual changes - bilaterally, Diplopia ENT: Reports: - - No loss of taste or smell. Denies: Rhinorrhea, Sore throat Respiratory: Reports: Dyspnea. Denies: Cough Gastrointestinal: Reports: Nausea, Vomiting - X1. Denies: Abdominal pain Genitourinary: Denies: Dysuria, Hematuria Musculoskeletal: Denies: Myalgias, Arthralgias Skin: Denies: Rash, Abscess Neurological: Denies: Headache, Weakness Physical Exam Vital Signs/Narrative: Vital Signs Temp Pulse Resp Pulse Ox 03/08/20 05:20 99.6 F H 144 H 20 H 95 General: Well nourished, No Acute Distress Head: Normocephalic, Atraumatic Eyes: Perrl, EOMI. Negative for: Pale conjunctiva ENT: Dry mucous membranes. Negative for: Nasal congestion Cardiovascular: Regular rhythm, Tachycardia Respiratory: No distress, CTA bilaterally, Chest nontender Abdomen: Soft, Nontender, Nondistended Extremities: Nontender, Edema Skin: Normal color, No rash. Negative for: Cyanosis, Diaphoresis Neurological: Alert, Oriented x3 Psychological: Normal affect, Normal Mood Diagnostic/Tx/Re-eval - Rhythm Strip Rhythm Strip: Sinus Rhythm Rate: 132 - EKG Initial EKG Interpretation: No Acute Injury Pattern, Sinus Tachycardia - Medical Decision Making -year-old female with history of breast cancer stage IV presenting with fever of 103, tachycardia. Sepsis protocol was initiated due to meeting SIRS criteria. Patient does have cancer however her labs would also be consistent with Covid?19 with leukopenia and lymphopenia. Covid swab was sent and is negative. She has only had symptoms for a few hours so this could be a false negative. Chest x- ray shows multifocal pneumonia. Patient is slightly dehydrated and was given 1 L of fluids however she did not get 30 cc/kg given the concern that she could possibly have Covid?19. Patient was given Rocephin and azithromycin given her negative Covid swab. Lactic acid is within normal limits. Procalcitonin is pending as well as urinalysis. D-dimer was elevated so CTA was ordered and is pending. Given patient's immune compromised state and pneumonia I feel it is necessary to admit her to the hospital. At this point she is not requiring oxygen and is actually a little hypertensive not hypotensive. She still tachycardic but she has a fever. Discussed with hospitalist who will come see the patient and admit her. Impression: 1. Multifocal pneumonia 2. Fever 3. History of stage IV breast cancer 4. Sepsis ED Disposition - Plan for ED Patient: Referrals: Joe Law MD [STAFF PHYSICIAN] -
--- NOTE | 2020-03-08 05:29 | EKG12_ITS ---
Test Reason : FEVER Blood Pressure : / mmHG Vent. Rate : 132 BPM Atrial Rate : 132 BPM P-R Int : 148 ms QRS Dur : 078 ms QT Int : 298 ms P-R-T Axes : 065 036 071 degrees QTc Int : 441 ms Sinus tachycardia Otherwise normal ECG Confirmed by ROBERTO VELAZQUEZ, SCARLETT ([id number]), copy editor MICHELLE KOO ([id number]) on 03/10/2020 9:40:21 AM Referred By: LAWRENCE Confirmed By:SCARLETT MEJIA MD
[2020-03-08 05:57] LABS: Absolute Lymphocyte Count 0.78 X10^3/uL (0.83-4.51); Absolute Neutrophil Count 3.3 X10^3/uL (2.0-7.7); Basophil# 0.03 X10^3/uL; Basophil% 0.6 % (0-1); Eosinophil# 0.06 X10^3/uL; Eosinophils% 1.2 % (0-5); Hematocrit 26.6 % (37-47); Hemoglobin 8.2 g/dL (12.0-15.0); Lymphocyte # 0.78 X10^3/ul (4.0); Lymphocyte % 15.9 % (19-41); Mean Corp Hgb Conc 30.8 g/dL (32-36); Mean Corpuscular Hgb 29.1 pg (27.0-32.0); Mean Corpuscular Volume 94.3 fL (81-99); Mean Platelet Vol. 9.6 fl (6.2-12.0); Monocyte# 0.61 X10^3/uL; Monocyte% 12.4 % (0-10); NRBC Flagged by Analyzer 0 % (0-5); Neutrophil # 3.34 X10^3/uL (2.7-7.7); Neutrophil % 68.3 % (47-70); POSITIVE MORPHOLOGY YES; Platelet Count 269 K/mm3 (150-450); RBC Distribution Width CV 14.2 % (11.6-14.6); Red Blood Count 2.82 M/mm3 (4.2-5.4); White Blood Count 4.9 K/mm3 (4.4-11.0)
--- NOTE | 2020-03-08 06:00 | RAD_ITS ---
STUDY: X-RAY CHEST REASON FOR EXAM: Female, 49 years old patient with fever. TECHNIQUE: Single AP portable view of the chest. COMPARISON: CT of the chest dated 05/29/2018. FINDINGS: Cardiac monitoring leads are present. Left-sided Mediport catheter is present with the tip of the catheter at the cavoatrial junction. The lungs are expanded. There is heterogeneous ground glass attenuation visible primarily in the right upper lobe and to a lesser extent at the lung bases suggesting multifocal pneumonia. There is no demonstrated pleural abnormality. Normal size heart. Normal mediastinum and brandi. There is prominence of the pulmonary hilar arteries without peripheral pulmonary vascular congestion. There is atherosclerotic tortuosity of the aortic arch and descending thoracic aorta. There are diffuse degenerative changes of the visualized thoracic spine. Normal visualized ribs, clavicles, and shoulders. There is no demonstrated abnormality of the visualized soft tissue structures of the upper abdomen. RAD/Chest 1 View (Portable) IMPRESSION: Findings suggests multifocal pneumonia greatest on the right. Electronically Signed: Amy Pandey MD at 6:30 EST , Service support ,
[2020-03-08] MEDS: Acetaminophen 500 MG Tablet 1000 MG PO (06:15)
[2020-03-08] MEDS: 0.9% Normal Saline 1,000 ML 999 ML IV (06:15)
[2020-03-08 06:16] LABS: ALB/GLOB Ratio 0.7 RATIO (0.9-2.4); AST(SGOT) 9 U/L (15-37); Alanine Aminotransfer ALT/SGPT 23 U/L (13-56); Albumin, Serum 2.7 g/dL (3.2-5.0); Alkaline Phosphatase 116 U/L (45-117); Anion Gap 3 (5-15); BUN 26 mg/dL (7-18); BUN/Creat Ratio 27.3 RATIO (10-20); Calcium,Total 8.5 mg/dL (8.5-10.1); Chloride 104 mmol/L (98-107); Creatinine, Serum 0.95 mg/dL (0.55-1.02); EST Glomerular Filtration Rate 66 mL/min (>60); Est Glom Filt Rate - Afr Amer 79 mL/min (>60); Estimated Creatinine Clearance 68.89 ml/min; Glucose 370 mg/dL (74-106); Magnesium 1.2 mg/dL (1.6-2.6); Potassium 4.5 mmol/L (3.5-5.1); Protein, Total 6.7 g/dL (6.4-8.2); Sodium Level 137 mmol/L (136-145)
[2020-03-08 06:20] LABS: International Normalized Ratio 1.1; Prothrombin Time (Protime)PT. 13.2 SECONDS (11.7-14.9)
[2020-03-08 06:21] LABS: Partial Thromboplast Time 29.9 Seconds (24.1-36.2)
[2020-03-08 06:26] LABS: Lactic Acid 1.5 mmol/L (0.4-1.9)
[2020-03-08 06:27] LABS: Differential Indicated SCAN CRITERIA MET
[2020-03-08 06:28] LABS: Anisocytosis 1+; Hypochromasia 1+; Platelet Estimate ADEQUATE (ADEQ)
[2020-03-08 06:29] LABS: Dohle Bodies 1+
[2020-03-08 06:32] LABS: D-Dimer Quantitative (DVT/PE) 0.66 FEU/ug/m (0.27-0.49)
--- NOTE | 2020-03-08 06:34 | CT_ITS ---
STUDY: CTA CHEST REASON FOR EXAM: Female, 49 years old patient with fever, weakness, and elevated D-dimer. Past medical history of breast cancer treated with lumpectomy and chemotherapy. COVID test result is pending. RADIATION DOSAGE (If Supplied By Facility): CTDIvol = ( 12.49 ) mGy, DLP = ( 462.57 ) mGycm TECHNIQUE: The examination was performed with the intravenous administration of 100 mL of Isovue-370. Post-processing of the angiographic images was performed, with multiplanar reformation and 3D reconstruction. Individualized dose optimization techniques were used for this CT. COMPARISON: CT of the chest dated 02/07/2018. FINDINGS: Cardiac monitoring leads are present. Normal enhancement of the main pulmonary artery and right and left pulmonary arteries. Normal enhancement of the bilateral peripheral pulmonary arteries. There is no demonstrated pulmonary embolism. There is prominence of the main pulmonary arteries without peripheral pulmonary vascular congestion. Normal thoracic aorta and visualized great vessels. There is no demonstrated aortic dissection. There is borderline cardiac cardiomegaly. There are calcifications of the coronary arteries. There appears to be a subcarinal lymphadenopathy. Normal hilar regions. Normal visualized trachea and bronchi. The lungs are well expanded. There is heterogeneous airspace consolidation within the right middle lobe, and right upper lobe suggesting multifocal pneumonia. There appears to be a right lower lobe pulmonary nodule 11 mm in size. There is a lingular pulmonary nodule measuring approximately 1.4 cm. There is a left upper lobe pulmonary nodule measuring approximately 4.2 mm. Normal pleura. Normal chest wall structures. There are degenerative changes of thoracic spine. Normal visualized upper abdomen. CT/CTA Chest W/WO Contrast IMPRESSION: 1. No CTA demonstrated pulmonary embolism or arterial dissection. 2. Right middle lobe and right upper lobe airspace consolidation suggests multifocal pneumonia. 3. Multiple bilateral pulmonary nodules suggests possible sequela of a neoplastic process and metastasis. Electronically Signed: Amy Pandey MD at 8:01 EST , Service support ,
[2020-03-08 07:01] LABS: Probe Check PASS; Specimen Processing Control PASS
--- NOTE | 2020-03-08 07:07 | PCM.HP.STD ---
Problem List (1) Sepsis Status: Acute Qualifiers: Sepsis type: sepsis due to unspecified organism Sepsis acute organ dysfunction status: unspecified Qualified Code(s): A41.9 - Sepsis, unspecified organism (2) Bilateral pneumonia Status: Acute Qualifiers: Pneumonia type: due to unspecified organism Lung location: unspecified part of lung Qualified Code(s): J18.9 - Pneumonia, unspecified organism (3) Hypomagnesemia Status: Acute (4) Metastatic breast cancer Status: Chronic (5) Diabetes Status: Chronic Qualifiers: Diabetes mellitus type: type 2 Diabetes mellitus alf insulin use: with alf use Diabetes mellitus complication status: with other specified complication Qualified Code(s): E11.69 - Type 2 diabetes mellitus with other specified complication; 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 (6) Neuropathy Status: Chronic (7) HTN (hypertension) Status: Chronic Qualifiers: Hypertension type: essential hypertension Qualified Code(s): I10 - Essential (primary) hypertension (8) Goiter Status: Chronic (9) GERD (gastroesophageal reflux disease) Status: Chronic Qualifiers: Esophagitis presence: esophagitis presence not specified Qualified Code(s): K21.9 - Gastro-esophageal reflux disease without esophagitis (10) Anxiety and depression Status: Chronic (11) Hyperlipidemia Status: Chronic Qualifiers: Hyperlipidemia type: unspecified Qualified Code(s): E78.5 - Hyperlipidemia, unspecified History of Present Illness Date of Admission: 03/08/20 Chief Complaint: Fever, dyspnea onset early AM. The patient is a 49 y/o F w/ PMHx: Chronic anemia, Anxiety and Depression, Diabetes mellitus type II, Hx Goiter, GERD, HTN, HLD, Former Tobacco use, Right Stage IV Breast CA Invasive Ductal Carcinoma s/p lumpectomy with metastatic disease to the lung following with Dr. Barakat with ongoing chemotherapy who presents to the [facility] ED on 03/08/20 with history of onset of fever on day of ED presentation approximately 2 AM initiated to be 100.6 and increased up to 102 without any self administration of antipyretics, 103 upon ED arrival with associated chills and dyspnea with episode of nausea and emesis upon ED presentation with last chemotherapy approximately 1 week prior with referral to the ED per her oncologist. Upon further intensive questioning patient does note that she had sore legs the evening prior but thought it was because she was doing more and also has been a little more short of breath over the last couple days. She does have chronic bilateral lower extremity swelling. Work-up in the ED included T103.1, heart rate 130, BP 150/68, respiratory rate 20, 97% on room air, CBC with WBC 4.9, hemoglobin 8.2, platelet 269 with increased mature granulocytes and lymphopenia, coag studies with D-dimer elevated 0.66 otherwise normal PT, INR, PTT, CMP with BUN/creatinine 26/0.95, glucose 370, magnesium 1.2 with supplementation ministered in the ED, troponin less than 0.015, procalcitonin pending per ED, acetone negative, COVID testing negative, blood culture x2 pending per ED, chest x-ray with findings suggestive of multifocal pneumonia, right greater than left. CTPA pending. Discussed case with Dr. Wilcox, ED physician and given timeline could still be Covid but to be cautious antibiotic therapy will be administered. Past Medical History Past Medical History (Chronic Problems): Chronic Problems (Last Updated 11/06/19 @ 09:57 by Selam Swenson) Bilateral lower extremity edema (Chronic) Metastatic breast cancer (Chronic) Diabetes (Chronic) Neuropathy (Chronic) HTN (hypertension) (Chronic) DM (diabetes mellitus), type 2, uncontrolled with complications (Chronic) Goiter (Chronic) GERD (gastroesophageal reflux disease) (Chronic) Abnormal ECG (Chronic) Anxiety and depression (Chronic) Invasive ductal carcinoma of breast (Chronic) With metastatic disease to the lung Hyperlipidemia (Chronic) Carcinoma of right breast metastatic to axillary lymph node (Chronic) Medical History: Medical History (Last Updated 11/06/19 @ 09:57 by Selam Swenson) Diabetes (Chronic) E11.9 Neuropathy (Chronic) G62.9 [place] node September 2016 Dr Ruiz at [facility] Allergies No Known Allergies Allergy (Verified 03/08/20 05:27) Home Medications: Ambulatory Orders Medication Instructions Recorded Valacyclovir HCl [Valtrex] 500 mg PO DAILY PRN PRN 02/12/13 bumetanide 2 mg tablet 2 mg PO BID 11/06/19 cholestyramine (with sugar) 4 gram 4 g PO TID PRN g 11/06/19 oral powder diphenoxylate-atropine 2.5 2 tab PO .QID PRN tab 11/06/19 mg-0.025 mg tablet insulin lispro 100 unit/mL 15 unit SC TID ml 11/06/19 subcutaneous solution methadone 5 mg tablet 5 mg PO BID tab 11/06/19 omeprazole 20 mg tablet,delayed 20 mg PO DAILY 11/06/19 release potassium chloride 10 mEq 20 meq PO DAILY cap 11/06/19 capsule,extended release timolol 0.5 % eye drops 1 drp OPHTHALMIC DAILY 11/06/19 atorvastatin 40 mg tablet 40 mg PO QHS #90 tab 12/12/19 Ipratropium [place] 0.06% 2 spray NASAL TID PRN 01/18/20 [ATROVENT NASAL SPRAY (g)] Insulin Glargine [Lantus SoloStar 30 unit SC TID 03/08/20 Pen] Surgical History: Surgical History (Last Updated 11/06/19 @ 09:57 by Selam Swenson) History of hysterectomy Z90.710 2005 History of lumpectomy of right breast Z98.890 2013 Surgical History: cataract, hysterectomy, - - Breast lumpectomy, IV port for chemo Psychiatric History: Anxiety, Depression CLAIM BENEFIT SPECIALIST History: No pertinent CLAIM BENEFIT SPECIALIST history Lives: Spouse/ Significant Other Smoking Status: Former smoker - Quit cigarette tobacco usage approximately 2010 with prior to that 1 pack/day cigarette tobacco usage history. Tobacco Use: Non-smoker Alcohol: Occasional Drugs: None - *Family History Maternal Family History: Family History (Last Updated 11/06/19 @ 10:04 by Selam Swenson) Mother Breast cancer Diabetes Aunt Skin cancer Father Heart disease Hypertension Brother Asthma Grandmother Colon cancer History Items: Cancer - Breast Paternal Family History: Family History (Last Updated 11/06/19 @ 10:04 by Selam Swenson) Mother Breast cancer Diabetes Aunt Skin cancer Father Heart disease Hypertension Brother Asthma Grandmother Colon cancer History Items: Diabetes, High Cholesterol Sibling Family History: Family History (Last Updated 11/06/19 @ 10:04 by Selam Swenson) Mother Breast cancer Diabetes Aunt Skin cancer Father Heart disease Hypertension Brother Asthma Grandmother Colon cancer History Items: Pulmonary Disease Review of Systems Constitutional: Reports: Chills, Fever, Malaise, Weakness, Fatigue. Denies: Weight Change HEENT: Reports: Nasal Congestion. Denies: Head Aches, Sinus Congestion, Sinus Drainage Cardiovascular: Denies: Chest Pain, Palpitations Respiratory: Reports: Shortness of Breath, Shortness of breath at rest, Shortness of breath upon exertion. Denies: Cough, Sputum production Gastrointestinal: Reports: Diarrhea - Patient does note however she gets diarrhea with chemotherapy., Nausea, Vomiting. Denies: Abdominal Pain Genitourinary: Denies: Dysuria Musculoskeletal: Reports: Joint Pain, Leg Pain. Denies: Joint Tenderness Skin: Denies: Rash, Wounds Neurological: Denies: Numbness, Tingling, Focal weakness Psychiatric: Reports: Anxiety, Depression. Denies: Homicidal Ideations, Suicidal Ideations Hematologic/ Lymphatic: Reports: Anemia. Denies: Easy Bruising, Easy Bleeding VTE Information - Inpt Only VTE Present on Admission: No VTE Mechan Device Prophylaxis: SCD's VTE Pharm Prophylaxis ordered?: Yes Patient Problems: Active and Suspected Problems (Last Updated 11/06/19 @ 09:57 by Selam Swenson) Sepsis (Acute) Bilateral pneumonia (Acute) Hypomagnesemia (Acute) Subjective: Patient seated upright in the ED bed, emotional, fatigued appearing. Objective: Physical Examination: General: awake, alert, oriented x 3 and cooperative, seated upright in the ED bed, fatigued and ill-appearing. Skin: normal color, turgor, no icterus, cyanosis. HEENT: AT/NC, EOMI, PERRLA, moderately dry MM, no carotid bruits or JVD noted. Lungs: Diminished breath sounds, greater bilateral bases, no evidence of overt distress, no rales, ronchi or wheezing. Heart: Tachycardic with regular rhythm; no gallop, rub audible. Abdomen: soft, NTTP, ND, mildly hyperactive BS, no HSM. Extremities: no cyanosis or clubbing, significant pedal to mid romeo pitting edema, chronic. Neurological: patient awake, alert, oriented as noted; cognitive function baseline intact; pupils equally reactive to light and accomodation; cranial nerves II-XII grossly normal, moving all 4 extremities, no focal deficits, strength moderately globally decreased secondary to acute presentation. Psychiatric: affect appears fatigued, tearful, anxious, scared. - Physical Exam Vitals/I&O's: Vital Signs Temp Pulse Resp BP Pulse Ox 102.9 F H 124 H 18 132/63 H 96 03/08/20 06:54 03/08/20 06:54 03/08/20 06:54 03/08/20 06:54 03/08/20 06:54 Oxygen Delivery Method Room Air Weight: 210 lb Body Mass Index (BMI) 32.8 Finger Stick Blood Glucose 156 Laboratory Results 03/08/20 05:44: WBC 4.9, RBC 2.82 L, Hgb 8.2 L, Hct 26.6 L, MCV 94.3, MCH 29.1, MCHC 30.8 L, RDW Std Deviation 47.0 H, RDW Coeff of Cori 14.2, Plt Count 269, MPV 9.6, Immature Gran % (Auto) 1.600 H, Neut % (Auto) 68.3, Lymph % (Auto) 15.9 L, [place] % (Auto) 12.4 H, Eos % (Auto) 1.2, Baso % (Auto) 0.6, Absolute Neuts (auto) 3.3, Absolute Lymphs (auto) 0.78 L, Nucleated RBC % 0, Differential Comment COMMENT, Dohle Bodies 1+, Platelet Estimate ADEQUATE, Hypochromasia 1+, Anisocytosis 1+ 03/08/20 05:44: PT 13.2, INR 1.1, APTT 29.9, D-Dimer Quant (PE/DVT) 0.66 H* 03/08/20 05:44: Sodium 137, Potassium 4.5, Chloride 104, Carbon Dioxide 30.0, Anion Gap 3 L, BUN 26 H, Creatinine 0.95, Estim Creat Clear Calc 68.89, Est GFR (MDRD) Af Amer 79, Est GFR (MDRD) Non-Af 66, BUN/Creatinine Ratio 27.3 H, Glucose 370 H, Calcium 8.5, Magnesium 1.2 L, Total Bilirubin 0.10 L, AST 9 L, ALT 23, Alkaline Phosphatase 116, Troponin I < 0.015, Total Protein 6.7, Albumin 2.7 L, Globulin 4.0, Albumin/Globulin Ratio 0.7 L 03/08/20 05:44: Lactic Acid 1.5 03/08/20 05:44: Procalcitonin Pending 03/08/20 05:44: Acetone Level NEGATIVE 03/08/20 05:52: COVID-19 (TIFFANY) Negative Current Medications Magnesium Sulfate () 4 gm in 100 mls @ 25 mls/hr IV X1 ONE Stop: 03/08/20 10:32 Ceftriaxone Sodium (Rocephin) 1 gm in 50 mls @ 100 mls/hr IV X1 ONE Stop: 03/08/20 07:35 Azithromycin 500 mg/ Dextrose 255 mls @ 250 mls/hr IV X1 ONE Stop: 03/08/20 08:08 Assessment/Plan All Active Problems (Last Updated 11/06/19 @ 09:57 by Selam Swensno) Sepsis (Acute) Bilateral pneumonia (Acute) Sinus tachycardia (Acute) Intractable nausea and vomiting (Acute) Dehydration (Acute) Hypokalemia (Acute) Acute bronchitis (Acute) Sinusitis (Acute) Hypotension (Acute) Hypophosphatemia (Acute) Hypomagnesemia (Acute) Low back strain (Acute) Candiduria (Resolved) Dehydration (Resolved) Ketonuria (Resolved) Orthostatic hypotension (Resolved) Thrush (Resolved) pseudohyponatremia (Resolved) The patient is a 49 y/o F w/ PMHx: Chronic anemia, Anxiety and Depression, Diabetes mellitus type II, Hx Goiter, GERD, HTN, HLD, Former Tobacco use, Right Stage IV Breast CA Invasive Ductal Carcinoma s/p lumpectomy with metastatic disease to the lung following with Dr. Barakat with ongoing chemotherapy who presents to the [facility] ED on 03/08/20 with history of onset of fever on day of ED presentation approximately 2 AM initiated to be 100.6 and increased up to 102 without any self administration of antipyretics, 103 upon ED arrival with associated chills and dyspnea with episode of nausea and emesis. 1. Acute Sepsis, secondary to Bilateral Pneumonia, Possiblyi Acute Viral Syndrome, COVID-19: Patient with no significant leukocytosis or left shift, lymphopenia noted, chest x-ray with multifocal pneumonia, given symptom onset only within the last several hours despite negative Covid testing patient is still a potential risk for Covid, will admit to the Covid unit on telemetry status, awaiting CTPA given mildly elevated D-dimer, pending pro calcitonin per ED physician, will maintain on oxygen with wean as tolerated to room air, maintain on IV Rocephin and Azithromycin pending further work-up as potentially could be bacterial although still some suspicion could be Covid as noted, HOB, IS parameters w/ pending sputum cultures, respiratory viral panel and urine antigens, will obtain CRP, CPK, Ferritin, LDH, continue supportive care including q 2 hour turning including prone given no prone bed availability and judicious hydration, closely monitor for worsening status for ARDS and multiorgan failure, request infectious disease consultation. Bld cx x 2 obtained in the ED. If CTPA significantly consistent with Covid pneumonia would plan initiation of IV Decadron. 2. Right stage IV invasive ductal carcinoma, metastatic to the lung: Patient with ongoing chemotherapy, status post lumpectomy prior, following with Dr. Barakat, magnesium obtained in the ED and noted to be 1.2 with 4 g IV administered, will plan repeat magnesium in the morning. Will obtain phosphorus level and replete if appropriate. 3. Chronic pain syndrome: Associated with #2, will continue patient home methadone regimen cautiously while monitoring blood pressure given #1. 4. Diabetes mellitus type II with neuropathy with hyperglycemia: Patient with significant hyperglycemia, likely related to acute presentation #1, hold oral home regimen, continue home insulin regimen, ADA diet, accu checks w/ ISS. 5. Hypertension: Continue home regimen including bumetanide with hold parameters, PRN hydralazine. 6. Hyperlipidemia: Continue home statin regimen. 7. Chronic normocytic anemia: Admission hemoglobin 8.2, associate with chemotherapy, baseline 9-11, continue to trend. 8. GERD: Continue PPI. 9. DVT prophylaxis: SCDs, lovenox. 10. CODE status: Patient BENITO is her and living will is currently in place. Following discussions about code status, requested additional time to discussion this with her given her acute presentation. Will remain full code pending her discussions. Advanced Care Planning Face to Face Time: 16 minutes. Inpatient E&M: 13022 Init Hosp L3 Procedures: 09091 Advncd Care Plan 30 Min
[2020-03-08 07:47] LABS: Procalcitonin 0.15 ng/mL (0.00-0.09)
[2020-03-08] MEDS: Ceftriaxone 1 GM/50 ML BAG IV (07:53)
[2020-03-08 08:25] LABS: Mucous, Urine 0 SEEN /hpf (<or=2+)
[2020-03-08] MEDS: Magnesium Sulfate 4gm/100mL 4 GM/100 ML IV.SOLN. IV (08:35)
[2020-03-08 08:36] LABS: Color, Urine Yellow (Yellow); Glucose, Dipstick 1000 mg/dl (Normal); Ketone-Dipstick Negative (Negative); Leukocyte Esterase-Dipstick Negative /ul (Negative); Nitrite-Dipstick Negative (Negative); Occult Blood-Urine 25 /ul (Negative); Protein-Dipstick 500 mg/dl (Negative); Urine Bilirubin Dipstick Negative (Negative); Urine Clarity Clear (Clear); Urine Urobilinogen Normal (Normal)
[2020-03-08 08:57] LABS: Bacteria RARE /hpf (None Seen); Red Blood Cells-Urine 0-5 SEEN /hpf (0-5); Squamous Epithelial Cells - UA 0-5 SEEN /hpf (5-10); White Blood Cells 0-5 SEEN /hpf (0-5)
[2020-03-08 09:19] LABS: Ferritin 1002 ng/mL (8-252); LDH 304 U/L (84-246); Phosphorus 3.2 mg/dL (2.5-4.9)
[2020-03-08 09:24] LABS: BNP,B-Type NATRIURETIC PEPTIDE 98.1 pg/mL (0-100)
[2020-03-08] MEDS: 0.9% Normal Saline 1,000 ML 125 ML IV ×2 (10:13→22:42)
[2020-03-08] MEDS: Bumetanide 2 MG Tablet PO ×2 (10:13→17:49)
[2020-03-08] MEDS: Pantoprazole Sodium 20 MG Tablet PO (10:14)
[2020-03-08] MEDS: Enoxaparin 30 MG/0.3 ML Syringe SC ×2 (10:16→20:30)
--- NOTE | 2020-03-08 11:09 | PCM.RX.CS ---
Consult Pharmacy has been consulted to manage selected antiobiotic: Vancomycin Type of Consult: New start Suspected Infection: Sepsis, Pneumonia Labs: Sodium 137 mmol/L (136-145) 03/08/20 05:44 Potassium 4.5 mmol/L (3.5-5.1) 03/08/20 05:44 Chloride 104 mmol/L (98-107) 03/08/20 05:44 Carbon Dioxide 30.0 mmol/L (21.0-32.0) 03/08/20 05:44 Anion Gap 3 (5-15) L 03/08/20 05:44 BUN 26 mg/dL (7-18) H 03/08/20 05:44 Creatinine 0.95 mg/dL (0.55-1.02) 03/08/20 05:44 Est GFR (MDRD) Af Amer 79 mL/min (>60) 03/08/20 05:44 Est GFR (MDRD) Non-Af 66 mL/min (>60) 03/08/20 05:44 BUN/Creatinine Ratio 27.3 RATIO (10-20) H 03/08/20 05:44 Glucose 370 mg/dL (74-106) H 03/08/20 05:44 Microbiology: Microbiology 03/08/20 08:15 Urine, Clean Catch Legionella Antigen - Final 03/08/20 08:15 Urine, Clean Catch Streptococcus pneumoniae Antigen (M - Final Weight used for dosin kg Estimated Creatinine Clearance: 85ML/MIN Goal Trough: 15-20 mcg/mL Pharmacy Plan for Drug Dosing: Give initial load dose of 2000mg IV x1, then continue with 1750mg IV q12h per [facility] dosing protocol. Will order a trough level to be drawn before the 4th total dose. The patient's CrCl of 85ml/min was calculated using an adjusted body weight of 76.2kg. Pharmacy Service will continue to monitor and adjust dosing as required. Follow-Up Labs: Trough Vancomycin Labs to be done on [date and time ordered]: 03/09/20 22:30
[2020-03-08] MEDS: Insulin Lispro 100 UNIT/ML INSULN.PEN 15 UNIT SC (12:03)
[2020-03-08 12:15] LABS: Bedside Glucose 370 mg/dL (70-110)
[2020-03-08 15:07] LABS: M R Staph aureus DNA By PCR Negative (Negative); Probe Check PASS; Specimen Processing Control PASS
[2020-03-08] MEDS: 0.9% Saline Lock 10 ML Syringe IV ×2 (16:35→23:02)
[2020-03-08] MEDS: Ondansetron 4 MG/2 ML Vial IV (16:35)
[2020-03-08 17:15] LABS: Bedside Glucose 144 mg/dL (70-110)
[2020-03-08] MEDS: Atorvastatin Calcium 40 MG Tablet PO (20:31)
[2020-03-08] MEDS: Acetaminophen 325 MG Tablet 650 MG PO (20:46)
[2020-03-08 22:36] LABS: Bedside Glucose 239 mg/dL (70-110)
--- NOTE | 2020-03-08 22:36 | NURSING ---
REPORTS DIZZINESS. REQUESTED TO HAVE BGT TAKEN. RESULTS WNL. WILL MONITOR.
[2020-03-08] MEDS: proCHLORPERazine 10 MG/2 ML Vial 5 MG IV (23:02)
[2020-03-08 23:36] LABS: Bedside Glucose 236 mg/dL (70-110)
[2020-03-09] VITALS (21 sets, daily range): BP systolic 118–153; BP diastolic 54–81; PULSE 86–108; RESP 16–18; TEMP 36.8–37.6; O2SAT 93–100
[2020-03-09] MEDS: Ondansetron 4 MG/2 ML Vial IV (00:51)
[2020-03-09] MEDS: 0.9% Saline Lock 10 ML Syringe IV ×2 (00:51→05:12)
[2020-03-09] MEDS: proCHLORPERazine 10 MG/2 ML Vial 5 MG IV (05:11)
[2020-03-09] MEDS: 0.9% Normal Saline 1,000 ML 125 ML IV ×2 (05:35→21:13)
[2020-03-09 06:05] LABS: Absolute Lymphocyte Count 0.84 X10^3/uL (0.83-4.51); Basophil# 0.03 X10^3/uL; Basophil% 0.4 % (0-1); Eosinophil# 0.03 X10^3/uL; Eosinophils% 0.4 % (0-5); Hematocrit 22.4 % (37-47); Hemoglobin 6.8 g/dL (12.0-15.0); Lymphocyte # 0.84 X10^3/ul (4.0); Lymphocyte % 12.1 % (19-41); Mean Corp Hgb Conc 30.4 g/dL (32-36); Mean Corpuscular Hgb 29.1 pg (27.0-32.0); Mean Corpuscular Volume 95.7 fL (81-99); Mean Platelet Vol. 9.9 fl (6.2-12.0); Monocyte# 0.96 X10^3/uL; Monocyte% 13.9 % (0-10); NRBC Flagged by Analyzer 0 % (0-5); Neutrophil # 4.96 X10^3/uL (2.7-7.7); Neutrophil % 71.8 % (47-70); POSITIVE MORPHOLOGY YES; Platelet Count 247 K/mm3 (150-450); RBC Distribution Width CV 14.6 % (11.6-14.6); RBC Distribution Width SD 50.4 fl (35.1-43.9); Red Blood Count 2.34 M/mm3 (4.2-5.4); White Blood Count 6.9 K/mm3 (4.4-11.0)
[2020-03-09 06:26] LABS: Differential Indicated SCAN CRITERIA MET
[2020-03-09 06:34] LABS: ALB/GLOB Ratio 0.6 RATIO (0.9-2.4); AST(SGOT) 83 U/L (15-37); Alanine Aminotransfer ALT/SGPT 67 U/L (13-56); Albumin, Serum 2.2 g/dL (3.2-5.0); Alkaline Phosphatase 164 U/L (45-117); Anion Gap 5 (5-15); BUN 28 mg/dL (7-18); BUN/Creat Ratio 26.2 RATIO (10-20); Calcium,Total 7.7 mg/dL (8.5-10.1); Chloride 105 mmol/L (98-107); Creatinine, Serum 1.07 mg/dL (0.55-1.02); EST Glomerular Filtration Rate 58 mL/min (>60); Est Glom Filt Rate - Afr Amer 70 mL/min (>60); Estimated Creatinine Clearance 61.17 ml/min; Globulin 3.7 g/dL (2.2-4.2); Glucose 233 mg/dL (74-106); Magnesium 2.1 mg/dL (1.6-2.6); Potassium 4.2 mmol/L (3.5-5.1); Protein, Total 5.9 g/dL (6.4-8.2); Sodium Level 139 mmol/L (136-145)
[2020-03-09 07:20] LABS: Anisocytosis 1+; Hypochromasia 1+
[2020-03-09 07:22] LABS: Hematocrit 21.6 % (37-47); Hemoglobin 6.7 g/dL (12.0-15.0); Mean Corpuscular Hgb 29.8 pg (27.0-32.0); Mean Platelet Vol. 9.6 fl (6.2-12.0); Platelet Count 234 K/mm3 (150-450); RBC Distribution Width CV 14.7 % (11.6-14.6); RBC Distribution Width SD 51.3 fl (35.1-43.9); Red Blood Count 2.25 M/mm3 (4.2-5.4); White Blood Count 6.7 K/mm3 (4.4-11.0)
[2020-03-09] MEDS: Insulin Lispro 100 UNIT/ML INSULN.PEN 15 UNIT SC ×3 (09:41→17:10)
[2020-03-09] MEDS: Bumetanide 2 MG Tablet PO ×2 (09:42→17:40)
[2020-03-09] MEDS: Enoxaparin 30 MG/0.3 ML Syringe SC ×2 (09:43→20:45)
[2020-03-09] MEDS: Timolol 0.5% 5ML OPTH.BTL 1 DRP EACH EYE (09:43)
[2020-03-09] MEDS: Pantoprazole Sodium 20 MG Tablet PO (09:43)
--- NOTE | 2020-03-09 10:35 | PCM.PN.HOSP ---
Patient Problems: Active and Suspected Problems (Last Updated 11/06/19 @ 09:57 by Selam Swenson) Sepsis (Acute) Bilateral pneumonia (Acute) Hypomagnesemia (Acute) Subjective: Doing well. Feels a bit better than she did when she came in. No issues overnight. Her hemoglobin is down this morning and repeat confirmed a hemoglobin of 6.7. Vitals/I&O's: Vital Signs Temp Pulse Resp BP Pulse Ox 98.8 F 98 18 135/74 H 95 03/09/20 09:46 03/09/20 09:46 03/09/20 09:46 03/09/20 09:46 03/09/20 09:46 Oxygen Delivery Method Room Air Weight: 224 lb 3.2 oz Body Mass Index (BMI) 33.8 Finger Stick Blood Glucose 156 Intake and Output for Last 24 Hours 03/07/20 03/08/20 03/09/20 23:59 23:59 23:59 Intake Total 3785.00 / 3785.00 1226.66 / 1226.66 Output Total 150 / 150 300 / 300 Balance 3635.00 / 3635.00 926.66 / 926.66 General: Alert, Oriented x3, Cooperative, No apparent distress HEENT: Atraumatic, PERRLA, EOMI, Normocephalic Oral: Moist Mucosa Neck: Supple, No JVD Lungs: Clear to auscultation, Normal air movement, No rhonchi, No wheeze, No rales, Diminished - Right greater than left Cardiovascular: Regular rate, Regular Rhythm, Normal S1, Normal S2, No murmurs Abdomen: Soft, Non Tender, Non-Distended, No Hepato-splenomegaly Extremities: No edema, Capillary Refill Less than 3 Seconds Skin: No rashes, No breakdown Neurological: Neuro grossly intact, Sensory exam intact to light touch and pain Psych/Mental Status: Normal Affect, Appropriate Microbiology Past 72 Hours 03/08/20 10:22 Mucosa - Nose Respiratory Panel (PCR) - Final 03/08/20 08:15 Urine, Clean Catch Legionella Antigen - Final 03/08/20 08:15 Urine, Clean Catch Streptococcus pneumoniae Antigen (M - Final Laboratory Results 03/08/20 11:55: MRSA (PCR) Negative 03/08/20 12:01: POC Glucose 370 H 03/08/20 16:31: POC Glucose 144 H 03/08/20 20:28: POC Glucose 239 H 03/08/20 22:26: POC Glucose 236 H 03/09/20 05:10: WBC 6.9, RBC 2.34 L, Hgb 6.8 L, Hct 22.4 L, MCV 95.7, MCH 29.1, MCHC 30.4 L, RDW Std Deviation 50.4 H, RDW Coeff of Cori 14.6, Plt Count 247, MPV 9.9, Immature Gran % (Auto) 1.400 H, Neut % (Auto) 71.8 H, Lymph % (Auto) 12.1 L, Pike % (Auto) 13.9 H, Eos % (Auto) 0.4, Baso % (Auto) 0.4, Absolute Neuts (auto) 5.0, Absolute Lymphs (auto) 0.84, Nucleated RBC % 0, Differential Comment COMMENT, Hypochromasia 1+, Anisocytosis 1+ 03/09/20 05:10: Sodium 139, Potassium 4.2, Chloride 105, Carbon Dioxide 29.0, Anion Gap 5, BUN 28 H, Creatinine 1.07 H, Estim Creat Clear Calc 61.17, Est GFR (MDRD) Af Amer 70, Est GFR (MDRD) Non-Af 58 L, BUN/Creatinine Ratio 26.2 H, Glucose 233 H, Calcium 7.7 L, Magnesium 2.1, Total Bilirubin 0.30, AST 83 H, ALT 67 H, Alkaline Phosphatase 164 H, Total Protein 5.9 L, Albumin 2.2 L, Globulin 3.7, Albumin/Globulin Ratio 0.6 L 03/09/20 07:00: WBC 6.7, RBC 2.25 L, Hgb 6.7 L, Hct 21.6 L, MCV 96.0, MCH 29.8, MCHC 31.0 L, RDW Std Deviation 51.3 H, RDW Coeff of Cori 14.7 H, Plt Count 234, MPV 9.6 03/09/20 10:02: Blood Type Pending, Antibody Screen Pending, Crossmatch See Detail Current Medications Acetaminophen (Acetaminophen 325 Mg Tablet) 650 mg PO Q6H PRN PRN PRN Reason: Pain Score 1-10/Temp > 100.7 F Last Admin: 03/08/20 20:46 Dose: 650 mg Documented by: Al Hydroxide/Mg Hydroxide (Mag Hydrox/Al Hydrox/Simeth 30 Ml Udc) 30 ml PO Q6H PRN PRN PRN Reason: Gastric Burning Albuterol Sulfate (Albuterol 2.5 Mg/3 Ml Vial.Neb.) 2.5 mg INHALATION Q2H PRN PRN PRN Reason: Dyspnea, wheezing Atorvastatin Calcium (Atorvastatin Calcium 40 Mg Tablet) 40 mg PO QHS [facility] Last Admin: 03/08/20 20:31 Dose: 40 mg Documented by: Bumetanide (Bumetanide 2 Mg Tablet) 2 mg PO BIDLX [facility] Last Admin: 03/09/20 09:42 Dose: 2 mg Documented by: Cholestyramine Resin (Cholestyramine/Sucrose 4 Gm/Packet) 4 gm PO TIDCM PRN PRN Reason: diarrhea Diphenoxylate HCl/Atropine (Diphenoxylate/Atrop 1 Tablet) 1 - 2 tablet PO 4X/DAY PRN PRN Reason: diarrhea Enoxaparin Sodium (Enoxaparin 30 Mg/0.3 Ml Syringe) 30 mg SC BID [facility] Last Admin: 03/09/20 09:43 Dose: 30 mg Documented by: Furosemide (Furosemide 40 Mg/4 Ml Vial) 40 mg IV X1 ONE Stop: 03/09/20 13:01 Guaifenesin (Guaifenesin 10 Ml Udc (200mg/10ml)) 20 ml PO Q4H PRN PRN PRN Reason: COUGH Hydralazine HCl (Hydralazine 20 Mg/Ml Vial) 10 mg IV Q4H PRN PRN PRN Reason: SBP > 160 Sodium Chloride () 1,000 mls @ 125 mls/hr IV .Q8H [facility] Last Admin: 03/09/20 05:35 Dose: 125 mls/hr Documented by: Piperacillin Sod/Tazobactam (Sod 3.375 gm/ Sodium Chloride) 50 mls @ 12.5 mls/hr IV Q8 [facility] Last Infusion: 03/09/20 09:11 Dose: Infused Documented by: Vancomycin IV Pharmacy to Dose (1 ea/ Sodium Chloride) 500 mls @ 250 mls/hr IV X1 PRN; Protocol PRN Reason: Rx to Dose Sodium Chloride () 250 mls @ 15 mls/hr IV .[id number] PRN PRN Reason: Saline Flush Sodium Chloride () 250 mls @ 15 mls/hr IV .[id number] PRN PRN Reason: Additional IVPB Infusion Vancomycin HCl 1,750 mg/ (Sodium Chloride) 535 mls @ 250 mls/hr IV Q12H [facility] Last Infusion: 03/09/20 03:01 Dose: Infused Documented by: Insulin Glargine (Insulin Glargine 100 Units/Ml Pen) 30 units SC QHS [facility] Last Admin: 03/08/20 20:29 Dose: 30 units Documented by: Insulin Human Lispro (Insulin Lispro 100 Unit/Ml Insuln.Pen) 15 unit SC 0800,1200,1700 [facility] Last Admin: 03/09/20 09:41 Dose: 15 u Documented by: Magnesium Hydroxide (Magnesium Hydroxide 30 Ml Udc) 30 ml PO DAILY PRN PRN PRN Reason: Constipation Melatonin (Melatonin 3 Mg Tablet) 3 mg PO QHS PRN PRN PRN Reason: INSOMNIA Methadone HCl (Methadone 5 Mg Tablet) 5 mg PO BID [facility] Last Admin: 03/09/20 09:43 Dose: 5 mg Documented by: Morphine Sulfate (Morphine 2 Mg/Ml Syringe) 2 mg IV Q3H PRN PRN PRN Reason: Pain Score 6-10 Nitroglycerin (Nitroglycerin (Inpatient Use) 0.4 Mg Tab.Subl) 0.4 mg SUBLINGUAL Q5M PRN PRN Reason: CARDIAC/CHEST PAIN Ondansetron HCl (Ondansetron 4 Mg/2 Ml Vial) 4 mg IV Q8H PRN PRN PRN Reason: NAUSEA/VOMITING Last Admin: 03/09/20 00:51 Dose: 4 mg Documented by: Oxycodone HCl (Oxycodone 5 Mg Tablet) 5 mg PO Q4H PRN PRN PRN Reason: Pain Score 4-5 Pantoprazole Sodium (Pantoprazole Sodium 20 Mg Tablet) 20 mg PO DAILY [facility] Last Admin: 03/09/20 09:43 Dose: 20 mg Documented by: Potassium Chloride (Potassium Chloride 20 Meq Tablet) 20 meq PO DAILY [facility] Last Admin: 03/09/20 09:42 Dose: 20 meq Documented by: Prochlorperazine Edisylate (Prochlorperazine 10 Mg/2 Ml Vial) 5 mg IV Q4H PRN PRN PRN Reason: Breakthrough Nausea/Vomiting Last Admin: 03/09/20 05:11 Dose: 5 mg Documented by: Psyllium Hydrophilic Mucilloid (Psyllium 1 Packet) 1 packet PO DAILY PRN PRN PRN Reason: Constipation Senna/Docusate Sodium (Senna/Docusate Sodium 1 Tablet) 2 tablet PO BID PRN PRN PRN Reason: Constipation Sodium Chloride (0.9% Saline Lock 10 Ml Syringe) 10 - 40 ml IV UD PRN PRN Reason: SALINE FLUSH Last Admin: 03/09/20 05:12 Dose: 40 ml Documented by: Throat Lozenges (Benzocaine/Menthol 1 Lozenge) 1 lozenge MUCOUS MEM Q2H PRN PRN PRN Reason: SORE THROAT Timolol Maleate (Timolol 0.5% 5ml Opth.Btl) 1 drop EACH EYE DAILY [facility] Last Admin: 03/09/20 09:43 Dose: 1 drop Documented by: STROKE Vital Signs/Narrative: Vital Signs Temp Pulse Resp BP Pulse Ox 03/09/20 09:46 98.8 F 98 18 135/74 H 95 03/09/20 08:00 93 03/09/20 07:36 99 Medical Necessity - Tobacco Use Smoking Status: Former smoker Tobacco Use: Non-smoker Assessment/Plan All Active Problems (Last Updated 11/06/19 @ 09:57 by Selam Swenson) Sepsis (Acute) Bilateral pneumonia (Acute) Sinus tachycardia (Acute) Intractable nausea and vomiting (Acute) Dehydration (Acute) Hypokalemia (Acute) Acute bronchitis (Acute) Sinusitis (Acute) Hypotension (Acute) Hypophosphatemia (Acute) Hypomagnesemia (Acute) Low back strain (Acute) Candiduria (Resolved) Dehydration (Resolved) Ketonuria (Resolved) Orthostatic hypotension (Resolved) Thrush (Resolved) pseudohyponatremia (Resolved) 1. Sepsis secondary to bilateral pneumonia likely from bacterial source -COVID-19 is negative, she is continuing on room air therefore unlikely for her to have Covid -Continue with Vanco and Zosyn for broad-spectrum coverage -Blood and urine cultures are pending -Appreciate ID assistance 2. Stage IV breast cancer with metastasis to the lung/chronic normocytic anemia acute anemia of unknown etiology -She recently started a new breast cancer treatment and she received her second dose -She will follow up with oncology on discharge -We will transfuse 2 units today and give her a dose of Lasix likely a reaction to the chemotherapy 3. DM 2 with neuropathy -Continue with Accu-Cheks and her home insulin regimen -Continue with sliding scale insulin -Hold her oral medication 4. HTN/HLD -Blood pressure is stable -Can continue with her home blood pressure medication -Continue with statin 5. GERD -Stable -Continue with PPI 6. Chronic pain syndrome -Stable -Continue with home methadone regimen DVT: Lovenox Inpatient E&M: 75662 Subs Hosp L2
[2020-03-09 11:36] LABS: Bedside Glucose 209 mg/dL (70-110)
[2020-03-09 13:21] LABS: Bedside Glucose 236 mg/dL (70-110)
[2020-03-09 16:35] LABS: Bedside Glucose 162 mg/dL (70-110)
[2020-03-09] MEDS: Furosemide 40 MG/4 ML Vial IV (17:40)
[2020-03-09] MEDS: Atorvastatin Calcium 40 MG Tablet PO (20:45)
[2020-03-09 21:21] LABS: Bedside Glucose 69 mg/dL (70-110)
[2020-03-09 21:45] LABS: Bedside Glucose 117 mg/dL (70-110)
[2020-03-09 23:10] LABS: Vancomycin, Trough Level 29.5 ug/mL (5.0-15.0)
[2020-03-10] VITALS (9 sets, daily range): BP systolic 144–158; BP diastolic 72–87; PULSE 81–106; RESP 16–18; TEMP 36.9–37.4; O2SAT 93–100
--- NOTE | 2020-03-10 02:59 | PCM.RX.CS ---
Consult Pharmacy has been consulted to manage selected antiobiotic: Vancomycin Type of Consult: Follow-up Suspected Infection: Sepsis, Pneumonia Labs: Sodium 139 mmol/L (136-145) 03/09/20 05:10 Potassium 4.2 mmol/L (3.5-5.1) 03/09/20 05:10 Chloride 105 mmol/L (98-107) 03/09/20 05:10 Carbon Dioxide 29.0 mmol/L (21.0-32.0) 03/09/20 05:10 Anion Gap 5 (5-15) 03/09/20 05:10 BUN 28 mg/dL (7-18) H 03/09/20 05:10 Creatinine 1.07 mg/dL (0.55-1.02) H 03/09/20 05:10 Est GFR (MDRD) Af Amer 70 mL/min (>60) 03/09/20 05:10 Est GFR (MDRD) Non-Af 58 mL/min (>60) L 03/09/20 05:10 BUN/Creatinine Ratio 26.2 RATIO (-20) H 03/09/20 05:10 Glucose 233 mg/dL (74-106) H 03/09/20 05:10 Vancomycin Trough 29.5 ug/mL (5.0-15.0) H 03/09/20 22:34 Microbiology: Microbiology 03/08/20 10:22 Mucosa - Nose Respiratory Panel (PCR) - Final 03/08/20 08:15 Urine, Clean Catch Legionella Antigen - Final 03/08/20 08:15 Urine, Clean Catch Streptococcus pneumoniae Antigen (M - Final Goal Trough: 15-20 mcg/mL Pharmacy Plan for Drug Dosing: Pharmacy Service will continue to monitor and adjust dosing as required. TROUGH 29.5 HOLD NEXT DOSE AND DRAW RANDOM TROUGH 03/10 Follow-Up Labs: Trough Vancomycin Labs to be done on [date and time ordered]: RANDOM 03/10
[2020-03-10] MEDS: 0.9% Normal Saline 1,000 ML 125 ML IV ×3 (06:17→21:21)
[2020-03-10] MEDS: 0.9% Saline Lock 10 ML Syringe IV (06:22)
[2020-03-10 06:30] LABS: Absolute Lymphocyte Count 0.79 X10^3/uL (0.83-4.51); Absolute Neutrophil Count 5.8 X10^3/uL (2.0-7.7); Basophil# 0.04 X10^3/uL; Basophil% 0.5 % (0-1); Eosinophil# 0.09 X10^3/uL; Eosinophils% 1.1 % (0-5); Hematocrit 27.8 % (37-47); Hemoglobin 8.9 g/dL (12.0-15.0); Lymphocyte # 0.79 X10^3/ul (4.0); Mean Corpuscular Hgb 29.9 pg (27.0-32.0); Mean Corpuscular Volume 93.3 fL (81-99); Mean Platelet Vol. 9.3 fl (6.2-12.0); Monocyte# 1.05 X10^3/uL; Monocyte% 13.3 % (0-10); NRBC Flagged by Analyzer 0 % (0-5); Neutrophil # 5.78 X10^3/uL (2.7-7.7); Neutrophil % 73.5 % (47-70); Platelet Count 255 K/mm3 (150-450); RBC Distribution Width CV 14.6 % (11.6-14.6); RBC Distribution Width SD 49.5 fl (35.1-43.9); Red Blood Count 2.98 M/mm3 (4.2-5.4); White Blood Count 7.9 K/mm3 (4.4-11.0)
[2020-03-10 06:52] LABS: Anion Gap 5 (5-15); BUN 21 mg/dL (7-18); BUN/Creat Ratio 22.9 RATIO (10-20); Calcium,Total 7.6 mg/dL (8.5-10.1); Chloride 107 mmol/L (98-107); Creatinine, Serum 0.92 mg/dL (0.55-1.02); EST Glomerular Filtration Rate 69 mL/min (>60); Est Glom Filt Rate - Afr Amer 83 mL/min (>60); Estimated Creatinine Clearance 71.14 ml/min; Glucose 133 mg/dL (74-106); Potassium 3.6 mmol/L (3.5-5.1); Sodium Level 140 mmol/L (136-145)
[2020-03-10 06:56] LABS: Bedside Glucose 142 mg/dL (70-110)
[2020-03-10] MEDS: Enoxaparin 30 MG/0.3 ML Syringe SC ×2 (08:35→21:19)
[2020-03-10] MEDS: Insulin Lispro 100 UNIT/ML INSULN.PEN 15 UNIT SC ×2 (08:35→16:59)
[2020-03-10] MEDS: Bumetanide 2 MG Tablet PO ×2 (08:36→17:06)
[2020-03-10] MEDS: Pantoprazole Sodium 20 MG Tablet PO (08:37)
[2020-03-10] MEDS: Timolol 0.5% 5ML OPTH.BTL 1 DRP EACH EYE (08:38)
--- NOTE | 2020-03-10 12:14 | DCINST_ITS ---
- Discharge Diagnoses Current Active Problems: Current Active and Chronic Problems (Last Updated 11/06/19 @ 09:57 by Selam Swenson) Sepsis (Acute) Bilateral pneumonia (Acute) Metastatic breast cancer (Chronic) Diabetes (Chronic) Neuropathy (Chronic) HTN (hypertension) (Chronic) DM (diabetes mellitus), type 2, uncontrolled with complications (Chronic) Goiter (Chronic) GERD (gastroesophageal reflux disease) (Chronic) Anxiety and depression (Chronic) Hyperlipidemia (Chronic) Hypomagnesemia (Acute) You will use the following diet at home:: No restrictions Call your doctor if you observe: Fever of 101 or Higher, Shortness of breath Allergies/Adverse Reactions: Allergies No Known Allergies Allergy (Verified 03/08/20 05:27) Medications to take at Discharge Valacyclovir HCl [Valtrex] 500 mg PO DAILY PRN PRN 02/12/13 bumetanide 2 mg tablet 2 mg PO BID 11/06/19 cholestyramine (with sugar) 4 gram oral powder 4 g PO TID PRN g 11/06/19 diphenoxylate-atropine 2.5 mg-0.025 mg tablet 2 tab PO .QID PRN tab 11/06/19 insulin lispro 100 unit/mL subcutaneous solution 15 unit SC TID ml 11/06/19 methadone 5 mg tablet 5 mg PO BID tab 11/06/19 omeprazole 20 mg tablet,delayed release 20 mg PO DAILY 11/06/19 potassium chloride 10 mEq capsule,extended release 20 meq PO DAILY cap 11/06/19 timolol 0.5 % eye drops 1 drp OPHTHALMIC DAILY 11/06/19 atorvastatin 40 mg tablet 40 mg PO QHS #90 tab 12/12/19 Insulin Glargine [Lantus SoloStar Pen] 30 unit SC DAILY 03/08/20 Amox/Clavulanate Tablet [Augmentin Tablet] 875 mg PO Q12H #10 tab 03/10/20 The following prescriptions were given: Amox/Clavulanate Tablet [Augmentin Tablet] 875 mg PO Q12H #10 tab Primary Care Physician: Joe Law MD [STAFF PHYSICIAN] - Test Results: Test results from this visit will be discussed in further detail at your follow- up appointment, if applicable. Please Follow Up With: Clifford Barakat DO When: 2 weeks Proposed Discharge Date: 03/10/20
--- NOTE | 2020-03-10 12:16 | DS.PCM_ITS ---
Discharge Date and Diagnosis - Problem List Patient Problems: Active and Suspected Problems (Last Updated 11/06/19 @ 09:57 by Selam Swenson) Sepsis (Acute) Bilateral pneumonia (Acute) Hypomagnesemia (Acute) Date of Admission: 03/08/20 Date of Discharge: 03/10/20 - Primary Discharge Diagnosis Acute Problems: Active Problems (Last Updated 11/06/19 @ 09:57 by Selam Swenson) Sepsis (Acute) Bilateral pneumonia (Acute) Hypomagnesemia (Acute) - Secondary Discharge Diagnosis Chronic Problems: Chronic Problems (Last Updated 11/06/19 @ 09:57 by Selam Swenson) Bilateral lower extremity edema (Chronic) Metastatic breast cancer (Chronic) Diabetes (Chronic) Neuropathy (Chronic) HTN (hypertension) (Chronic) DM (diabetes mellitus), type 2, uncontrolled with complications (Chronic) Goiter (Chronic) GERD (gastroesophageal reflux disease) (Chronic) Abnormal ECG (Chronic) Anxiety and depression (Chronic) 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 Electronically Signed: Amy Pandey MD at 6:30 EST , Service support , Chest CTA 03/08/20 06:34 IMPRESSION: 1. No CTA demonstrated pulmonary embolism or arterial dissection. 2. Right middle lobe and right upper lobe airspace consolidation suggests multifocal pneumonia. 3. Multiple bilateral pulmonary nodules suggests possible sequela of a neoplastic process and metastasis. Electronically Signed: Amy Pandey MD at 8:01 EST , Service support , Operations: None, - - 12/30/13 Muscle Biopsy Procedures: None Summary of Care Provided: The patient is a 49 year old F with a fever and shortness of breath. Patient had a CAT scan that showed a right upper lobe infiltrate. COVID-19 testing was negative. Patient was started on broad-spectrum antibiotics with vancomycin and Pipracil/tazobactam. Is improved during his hospitalization but does require oxygen when she ambulates. Feels likely community-acquired pneumonia and hospitalized recently and will de-escalate her antibiotics to amoxicillin/clavulanic acid. Patient debilitated and plan is for the patient to go to rehab. Patient is otherwise doing well. I reviewed the data with the patient's is that she was concerned that she could have Covid as she was told by someone that she had labs are consistent with Covid. Told her that her Covid test was negative and that her D-dimer could be explained by her pneumonia but also her underlying malignancy. Of the lymphopenia is seen with Covid but not diagnostic by any means. [] Patient Problems: Active and Suspected Problems (Last Updated 11/06/19 @ 09:57 by Selam Swenson) Sepsis (Acute) Bilateral pneumonia (Acute) Hypomagnesemia (Acute) - Physical Exam Vitals/I&O's: Vital Signs Temp Pulse Resp BP Pulse Ox 37.0 C 81 18 158/74 H 100 03/10/20 08:00 03/10/20 08:00 03/10/20 08:00 03/10/20 08:00 03/10/20 11:46 Oxygen Flow Rate (L/min) 2 Oxygen Delivery Method Room Air Weight: 101.695 kg Body Mass Index (BMI) 33.8 Finger Stick Blood Glucose 156 Intake and Output for Last 24 Hours 03/08/20 03/09/20 03/10/20 23:59 23:59 23:59 Intake Total 3785.00 / 3785.00 4411.66 / 5011.66 2458.33 / 2458.33 Output Total 150 / 150 300 / 300 Balance 3635.00 / 3635.00 4111.66 / 4711.66 2458.33 / 2458.33 General: Alert, No apparent distress HEENT: Atraumatic, Normocephalic Neck: No Nodes, Thyroid Normal Size and Texture Lungs: Clear to auscultation, Normal air movement, No rhonchi, No wheeze, No rales Cardiovascular: Regular rate, Regular Rhythm, Normal S1, Normal S2, No murmurs Abdomen: Bowel Sounds Present, Soft, Non Tender, Non-Distended, No Hepato- splenomegaly Extremities: No edema, No Calf Tenderness Skin: No rashes, No breakdown Psych/Mental Status: Normal Affect, Appropriate Microbiology Past 72 Hours 03/08/20 08:15 Urine, Clean Catch Urine Culture - Final Lactobacillus sp. Mixed Culture 03/08/20 10:22 Mucosa - Nose Respiratory Panel (PCR) - Final 03/08/20 08:15 Urine, Clean Catch Legionella Antigen - Final 03/08/20 08:15 Urine, Clean Catch Streptococcus pneumoniae Antigen (M - Final Laboratory Results 03/09/20 10:02: Blood Type B NEGATIVE, Antibody Screen NEGATIVE, Crossmatch See Detail 03/09/20 13:00: POC Glucose 236 H 03/09/20 16:24: POC Glucose 162 H 03/09/20 20:43: POC Glucose 69 L 03/09/20 21:29: POC Glucose 117 H 03/09/20 22:34: Vancomycin Trough 29.5 H 03/10/20 06:10: Sodium 140, Potassium 3.6, Chloride 107, Carbon Dioxide 28.0, Anion Gap 5, BUN 21 H, Creatinine 0.92, Estim Creat Clear Calc 71.14, Est GFR (MDRD) Af Amer 83, Est GFR (MDRD) Non-Af 69, BUN/Creatinine Ratio 22.9 H, Glucose 133 H, Calcium 7.6 L 03/10/20 06:10: WBC 7.9, RBC 2.98 L, Hgb 8.9 L, Hct 27.8 L, MCV 93.3, MCH 29.9, MCHC 32.0, RDW Std Deviation 49.5 H, RDW Coeff of Cori 14.6, Plt Count 255, MPV 9.3, Immature Gran % (Auto) 1.600 H, Neut % (Auto) 73.5 H, Lymph % (Auto) 10.0 L , Barren % (Auto) 13.3 H, Eos % (Auto) 1.1, Baso % (Auto) 0.5, Absolute Neuts (auto) 5.8, Absolute Lymphs (auto) 0.79 L, Nucleated RBC % 0 03/10/20 06:21: POC Glucose 142 H Current Medications Acetaminophen (Acetaminophen 325 Mg Tablet) 650 mg PO Q6H PRN PRN PRN Reason: Pain Score 1-10/Temp > 100.7 F Last Admin: 03/08/20 20:46 Dose: 650 mg Documented by: Al Hydroxide/Mg Hydroxide (Mag Hydrox/Al Hydrox/Simeth 30 Ml Udc) 30 ml PO Q6H PRN PRN PRN Reason: Gastric Burning Albuterol Sulfate (Albuterol 2.5 Mg/3 Ml Vial.Neb.) 2.5 mg INHALATION Q2H PRN PRN PRN Reason: Dyspnea, wheezing Atorvastatin Calcium (Atorvastatin Calcium 40 Mg Tablet) 40 mg PO QHS [facility] Last Admin: 03/09/20 20:45 Dose: 40 mg Documented by: Bumetanide (Bumetanide 2 Mg Tablet) 2 mg PO BIDLX [facility] Last Admin: 03/10/20 08:36 Dose: 2 mg Documented by: Cholestyramine Resin (Cholestyramine/Sucrose 4 Gm/Packet) 4 gm PO TIDCM PRN PRN Reason: diarrhea Diphenoxylate HCl/Atropine (Diphenoxylate/Atrop 1 Tablet) 1 - 2 tablet PO 4X/DAY PRN PRN Reason: diarrhea Enoxaparin Sodium (Enoxaparin 30 Mg/0.3 Ml Syringe) 30 mg SC BID [facility] Last Admin: 03/10/20 08:35 Dose: 30 mg Documented by: Guaifenesin (Guaifenesin 10 Ml Udc (200mg/10ml)) 20 ml PO Q4H PRN PRN PRN Reason: COUGH Hydralazine HCl (Hydralazine 20 Mg/Ml Vial) 10 mg IV Q4H PRN PRN PRN Reason: SBP > 160 Sodium Chloride () 1,000 mls @ 125 mls/hr IV .Q8H [facility] Last Admin: 03/10/20 06:17 Dose: 125 mls/hr Documented by: Piperacillin Sod/Tazobactam (Sod 3.375 gm/ Sodium Chloride) 50 mls @ 12.5 mls/hr IV Q8 [facility] Last Infusion: 03/10/20 10:30 Dose: Infused Documented by: Vancomycin IV Pharmacy to Dose (1 ea/ Sodium Chloride) 500 mls @ 250 mls/hr IV X1 PRN; Protocol PRN Reason: Rx to Dose Sodium Chloride () 250 mls @ 15 mls/hr IV .[id number] PRN PRN Reason: Saline Flush Sodium Chloride () 250 mls @ 15 mls/hr IV .[id number] PRN PRN Reason: Additional IVPB Infusion Insulin Glargine (Insulin Glargine 100 Units/Ml Pen) 30 units SC QHS [facility] Last Admin: 03/09/20 20:46 Dose: Not Given Documented by: Insulin Human Lispro (Insulin Lispro 100 Unit/Ml Insuln.Pen) 15 unit SC 0800,1200,1700 [facility] Last Admin: 03/10/20 08:35 Dose: 15 u Documented by: Magnesium Hydroxide (Magnesium Hydroxide 30 Ml Udc) 30 ml PO DAILY PRN PRN PRN Reason: Constipation Melatonin (Melatonin 3 Mg Tablet) 3 mg PO QHS PRN PRN PRN Reason: INSOMNIA Methadone HCl (Methadone 5 Mg Tablet) 5 mg PO BID [facility] Last Admin: 03/10/20 11:01 Dose: 5 mg Documented by: Morphine Sulfate (Morphine 2 Mg/Ml Syringe) 2 mg IV Q3H PRN PRN PRN Reason: Pain Score 6-10 Nitroglycerin (Nitroglycerin (Inpatient Use) 0.4 Mg Tab.Subl) 0.4 mg SUBLINGUAL Q5M PRN PRN Reason: CARDIAC/CHEST PAIN Ondansetron HCl (Ondansetron 4 Mg/2 Ml Vial) 4 mg IV Q8H PRN PRN PRN Reason: NAUSEA/VOMITING Last Admin: 03/09/20 00:51 Dose: 4 mg Documented by: Oxycodone HCl (Oxycodone 5 Mg Tablet) 5 mg PO Q4H PRN PRN PRN Reason: Pain Score 4-5 Pantoprazole Sodium (Pantoprazole Sodium 20 Mg Tablet) 20 mg PO DAILY [facility] Last Admin: 03/10/20 08:37 Dose: 20 mg Documented by: Potassium Chloride (Potassium Chloride 20 Meq Tablet) 20 meq PO DAILY [facility] Last Admin: 03/10/20 08:36 Dose: 20 meq Documented by: Prochlorperazine Edisylate (Prochlorperazine 10 Mg/2 Ml Vial) 5 mg IV Q4H PRN PRN PRN Reason: Breakthrough Nausea/Vomiting Last Admin: 03/09/20 05:11 Dose: 5 mg Documented by: Psyllium Hydrophilic Mucilloid (Psyllium 1 Packet) 1 packet PO DAILY PRN PRN PRN Reason: Constipation Senna/Docusate Sodium (Senna/Docusate Sodium 1 Tablet) 2 tablet PO BID PRN PRN PRN Reason: Constipation Sodium Chloride (0.9% Saline Lock 10 Ml Syringe) 10 - 40 ml IV UD PRN PRN Reason: SALINE FLUSH Last Admin: 03/10/20 06:22 Dose: 30 ml Documented by: Throat Lozenges (Benzocaine/Menthol 1 Lozenge) 1 lozenge MUCOUS MEM Q2H PRN PRN PRN Reason: SORE THROAT Timolol Maleate (Timolol 0.5% 5ml Opth.Btl) 1 drop EACH EYE DAILY [facility] Last Admin: 03/10/20 08:38 Dose: 1 drop Documented by: Discharge Diet: No Restrictions Discharge Activity: Return to Normal Activity Call your doctor if you observe: Fever of 101 or Higher, Shortness of breath Home Medications: Medications to take at Discharge Valacyclovir HCl [Valtrex] 500 mg PO DAILY PRN PRN 02/12/13 bumetanide 2 mg tablet 2 mg PO BID 11/06/19 cholestyramine (with sugar) 4 gram oral powder 4 g PO TID PRN g 11/06/19 diphenoxylate-atropine 2.5 mg-0.025 mg tablet 2 tab PO .QID PRN tab 11/06/19 insulin lispro 100 unit/mL subcutaneous solution 15 unit SC TID ml 11/06/19 methadone 5 mg tablet 5 mg PO BID tab 11/06/19 omeprazole 20 mg tablet,delayed release 20 mg PO DAILY 11/06/19 potassium chloride 10 mEq capsule,extended release 20 meq PO DAILY cap 11/06/19 timolol 0.5 % eye drops 1 drp OPHTHALMIC DAILY 11/06/19 atorvastatin 40 mg tablet 40 mg PO QHS #90 tab 12/12/19 Insulin Glargine [Lantus SoloStar Pen] 30 unit SC DAILY 03/08/20 Amox/Clavulanate Tablet [Augmentin Tablet] 875 mg PO Q12H #10 tab 03/10/20 Following Prescriptions Were Given to Patient: Amox/Clavulanate Tablet [Augmentin Tablet] 875 mg PO Q12H #10 tab Primary Care Physician: Joe Law MD [STAFF PHYSICIAN] - Please Follow Up With: Clifford Barakat DO When: 2 weeks Disposition: Inpt Rehab Unit/Facility Minutes spent on discharge:: 32 Patient Condition:: Fair Medical Necessity - Tobacco Use Smoking Status: Former smoker Tobacco Use: Non-smoker Meaningful Use Info Meaningful Use Diagnoses (Choose all that apply): None applicable Inpatient E&M: 65404 Disch Hosp - [place] not discharged [place] [id number].
[2020-03-10 12:26] LABS: Bedside Glucose 107 mg/dL (70-110)
--- NOTE | 2020-03-10 12:27 | CASEMGMT ---
Addendum entered by Elaine Bosch 03/10/20 16:24: Social Work Negative Covid test will need obtained within 24 hours of admission. New Covid test taken and pending at this time per nursing. HILARIO attempted to call Elvia in [facility] x3 with no answer. SW will update Elvia in the morning and request precert be started. Pt updated on process and again informed insurance may or may not approve rehab stay. SW to continue to follow. HENRRY Reynoso Original Note: Social Work Per physician, pt stating she would like to go to inpt Rehab at d/c. Phone call placed to pt who states she lives in a two story home with her spouse. Bed and bath are on the second floor and pt does have a chair lift for the stairs. Pt has a cane, wheelchair, high rise toilet and shower chair. He works 12 hour shifts and pt is alone while he is at work. Pt stating that she is having difficulty caring for herself as she has become increasingly weaker and SOB over the past week. Pt confirmed that she would like to go to inpatient Rehab prior to returning home. SW explained that Rehab would need to accept her and that precert would need to be granted by the insurance company. HILARIO also explained that pt insurance is usually pretty strict with criteria for admission to inpatient rehab. HILARIO also explained that while in Rehab, pt would need to put chemo on hold, as pt cannot receive inpt rehab and chemo at the same time. HILARIO inquired about pt desire to go to SNF should she be denied inpt Rehab and pt stating she would not be agreeable to this. Phone call placed to Elvia in Rehab and referral made. Elvia to look over referral. Pt would need negative Covid test within 24 hours of admission. HILARIO will continue to follow for discharge planning. HENRRY Reynoso
[2020-03-10 17:15] LABS: Bedside Glucose 202 mg/dL (70-110)
--- NOTE | 2020-03-10 20:06 | NURSING ---
Handoff given to Nohelia Bianchi. Transferred pt up to room 305 at 2000hrs.
[2020-03-10 20:38] LABS: Vancomycin, Random Level 19.2 ug/mL (0.0-15.0)
[2020-03-10] MEDS: Atorvastatin Calcium 40 MG Tablet PO (21:19)
[2020-03-10 21:45] LABS: Bedside Glucose 118 mg/dL (70-110)
[2020-03-11 02:23] VITALS: BP 138/69; PULSE 103; RESP 18; TEMP 37.4; O2SAT 96
[2020-03-11] MEDS: 0.9% Normal Saline 1,000 ML 125 ML IV (04:54)
[2020-03-11 08:00] VITALS: BP 158/71; PULSE 96; RESP 18; TEMP 36.8; O2SAT 95
[2020-03-11 08:45] LABS: Bedside Glucose 178 mg/dL (70-110)
[2020-03-11] MEDS: Pantoprazole Sodium 20 MG Tablet PO (09:02)
[2020-03-11] MEDS: Enoxaparin 30 MG/0.3 ML Syringe SC (09:02)
[2020-03-11] MEDS: Insulin Lispro 100 UNIT/ML INSULN.PEN 15 UNIT SC ×2 (09:02→12:11)
[2020-03-11] MEDS: Timolol 0.5% 5ML OPTH.BTL 1 DRP EACH EYE (09:02)
[2020-03-11] MEDS: Amox/Clavulanate 875 MG Tablet PO (09:02)
[2020-03-11] MEDS: Bumetanide 2 MG Tablet PO (09:02)
--- NOTE | 2020-03-11 09:15 | CASEMGMT ---
Addendum entered by Isabell Paris 03/11/20 14:18: SW received call from Elvia with [facility] stating pre-cert has been obtained and pt can discharge to [facility] today. Physician updated. SW in to speak with pt. SW updated pt that [facility] has been approved and pt can discharge to [facility] today. Pt states understanding. Plan: [facility] today HENRRY Groves Addendum entered by Isabell Paris 03/11/20 09:33: SW received call from Elvia with [facility] stating she will submit for pre-cert. Original Note: Social Work Note SW attempted to call Elvia x3 in [facility] to submit for pre-cert. No answer. HILARIO placed a call to referral line and left message for Elvia to call this worker back. Plan: [facility] pending pre-cert HENRRY Groves
--- NOTE | 2020-03-11 12:07 | PCM.PN.HOSP ---
Patient Problems: Active and Suspected Problems (Last Updated 11/06/19 @ 09:57 by Selam Swenson) Sepsis (Acute) Bilateral pneumonia (Acute) Hypomagnesemia (Acute) Reason for Visit: pneumonia Subjective: Feeling well. No new complaints. Vitals/I&O's: Vital Signs Temp Pulse Resp BP Pulse Ox 36.8 C 96 18 158/71 H 95 03/11/20 08:00 03/11/20 08:00 03/11/20 08:00 03/11/20 08:00 03/11/20 08:00 Oxygen Flow Rate (L/min) 2 Oxygen Delivery Method Room Air Weight: 103.5 kg Body Mass Index (BMI) 33.8 Finger Stick Blood Glucose 156 Intake and Output for Last 24 Hours 03/09/20 03/10/20 03/11/20 23:59 23:59 23:59 Intake Total 4411.66 / 5011.66 5224.16 / 5574.16 1543.75 / 1543.75 Output Total 300 / 300 Balance 4111.66 / 4711.66 5224.16 / 5574.16 1543.75 / 1543.75 General: Alert, No apparent distress HEENT: Atraumatic, Normocephalic Oral: Moist Mucosa, No Gingival or Mucosal Lesions/ Ulcerations Neck: No Nodes, Thyroid Normal Size and Texture Lungs: Normal air movement, - - RUL crackles Cardiovascular: Regular rate, Regular Rhythm, Normal S1, Normal S2, No murmurs Abdomen: Bowel Sounds Present, Soft, Non Tender, Non-Distended, No Hepato-splenomegaly Extremities: No edema, No Calf Tenderness Microbiology Past 72 Hours 03/08/20 05:44 Blood Culture (Wb) - Left Hand Blood Culture - Preliminary No growth in 48 hours. 03/08/20 05:44 Blood Culture (Wb) - Port Blood Culture - Preliminary No growth in 48 hours. 03/08/20 08:15 Urine, Clean Catch Urine Culture - Final Lactobacillus sp. Mixed Culture 03/08/20 10:22 Mucosa - Nose Respiratory Panel (PCR) - Final 03/08/20 08:15 Urine, Clean Catch Legionella Antigen - Final 03/08/20 08:15 Urine, Clean Catch Streptococcus pneumoniae Antigen (M - Final Laboratory Results 03/10/20 12:20: POC Glucose 107 11/23/20 15:30: COVID-19 (TIFFANY) Not Detected 03/10/20 16:54: POC Glucose 202 H 03/10/20 20:01: Random Vancomycin 19.2 H 03/10/20 21:13: POC Glucose 118 H 03/11/20 08:42: POC Glucose 178 H Current Medications Acetaminophen (Acetaminophen 325 Mg Tablet) 650 mg PO Q6H PRN PRN PRN Reason: Pain Score 1-10/Temp > 100.7 F Last Admin: 03/08/20 20:46 Dose: 650 mg Documented by: Al Hydroxide/Mg Hydroxide (Mag Hydrox/Al Hydrox/Simeth 30 Ml Udc) 30 ml PO Q6H PRN PRN PRN Reason: Gastric Burning Albuterol Sulfate (Albuterol 2.5 Mg/3 Ml Vial.Neb.) 2.5 mg INHALATION Q2H PRN PRN PRN Reason: Dyspnea, wheezing Amoxicillin/Clavulanate Potassium (Amox/Clavulanate 875 Mg Tablet) 875 mg PO BIDCM [facility] Last Admin: 03/11/20 09:02 Dose: 875 mg Documented by: Atorvastatin Calcium (Atorvastatin Calcium 40 Mg Tablet) 40 mg PO QHS [facility] Last Admin: 03/10/20 21:19 Dose: 40 mg Documented by: Bumetanide (Bumetanide 2 Mg Tablet) 2 mg PO BIDLX [facility] Last Admin: 03/11/20 09:02 Dose: 2 mg Documented by: Cholestyramine Resin (Cholestyramine/Sucrose 4 Gm/Packet) 4 gm PO TIDCM PRN PRN Reason: diarrhea Diphenoxylate HCl/Atropine (Diphenoxylate/Atrop 1 Tablet) 1 - 2 tablet PO 4X/DAY PRN PRN Reason: diarrhea Enoxaparin Sodium (Enoxaparin 30 Mg/0.3 Ml Syringe) 30 mg SC BID [facility] Last Admin: 03/11/20 09:02 Dose: 30 mg Documented by: Guaifenesin (Guaifenesin 10 Ml Udc (200mg/10ml)) 20 ml PO Q4H PRN PRN PRN Reason: COUGH Hydralazine HCl (Hydralazine 20 Mg/Ml Vial) 10 mg IV Q4H PRN PRN PRN Reason: SBP > 160 Sodium Chloride () 250 mls @ 15 mls/hr IV .[id number] PRN PRN Reason: Saline Flush Sodium Chloride () 250 mls @ 15 mls/hr IV .[id number] PRN PRN Reason: Additional IVPB Infusion Insulin Glargine (Insulin Glargine 100 Units/Ml Pen) 30 units SC QHS [facility] Last Admin: 03/10/20 21:22 Dose: Not Given Documented by: Insulin Human Lispro (Insulin Lispro 100 Unit/Ml Insuln.Pen) 15 unit SC 0800,1200,1700 [facility] Last Admin: 03/11/20 09:02 Dose: 15 u Documented by: Magnesium Hydroxide (Magnesium Hydroxide 30 Ml Udc) 30 ml PO DAILY PRN PRN PRN Reason: Constipation Melatonin (Melatonin 3 Mg Tablet) 3 mg PO QHS PRN PRN PRN Reason: INSOMNIA Methadone HCl (Methadone 5 Mg Tablet) 5 mg PO BID [facility] Last Admin: 03/11/20 09:02 Dose: 5 mg Documented by: Morphine Sulfate (Morphine 2 Mg/Ml Syringe) 2 mg IV Q3H PRN PRN PRN Reason: Pain Score 6-10 Nitroglycerin (Nitroglycerin (Inpatient Use) 0.4 Mg Tab.Subl) 0.4 mg SUBLINGUAL Q5M PRN PRN Reason: CARDIAC/CHEST PAIN Ondansetron HCl (Ondansetron 4 Mg/2 Ml Vial) 4 mg IV Q8H PRN PRN PRN Reason: NAUSEA/VOMITING Last Admin: 03/09/20 00:51 Dose: 4 mg Documented by: Oxycodone HCl (Oxycodone 5 Mg Tablet) 5 mg PO Q4H PRN PRN PRN Reason: Pain Score 4-5 Pantoprazole Sodium (Pantoprazole Sodium 20 Mg Tablet) 20 mg PO DAILY [facility] Last Admin: 03/11/20 09:02 Dose: 20 mg Documented by: Potassium Chloride (Potassium Chloride 20 Meq Tablet) 20 meq PO DAILY [facility] Last Admin: 03/11/20 09:02 Dose: 20 meq Documented by: Prochlorperazine Edisylate (Prochlorperazine 10 Mg/2 Ml Vial) 5 mg IV Q4H PRN PRN PRN Reason: Breakthrough Nausea/Vomiting Last Admin: 03/09/20 05:11 Dose: 5 mg Documented by: Psyllium Hydrophilic Mucilloid (Psyllium 1 Packet) 1 packet PO DAILY PRN PRN PRN Reason: Constipation Senna/Docusate Sodium (Senna/Docusate Sodium 1 Tablet) 2 tablet PO BID PRN PRN PRN Reason: Constipation Sodium Chloride (0.9% Saline Lock 10 Ml Syringe) 10 - 40 ml IV UD PRN PRN Reason: SALINE FLUSH Last Admin: 03/10/20 06:22 Dose: 30 ml Documented by: Throat Lozenges (Benzocaine/Menthol 1 Lozenge) 1 lozenge MUCOUS MEM Q2H PRN PRN PRN Reason: SORE THROAT Timolol Maleate (Timolol 0.5% 5ml Opth.Btl) 1 drop EACH EYE DAILY [facility] Last Admin: 03/11/20 09:02 Dose: 1 drop Documented by: Medical Necessity - Tobacco Use Smoking Status: Former smoker Tobacco Use: Non-smoker Assessment/Plan All Active Problems (Last Updated 11/06/19 @ 09:57 by Selam Swenson) Sepsis (Acute) Bilateral pneumonia (Acute) Sinus tachycardia (Acute) Intractable nausea and vomiting (Acute) Dehydration (Acute) Hypokalemia (Acute) Acute bronchitis (Acute) Sinusitis (Acute) Hypotension (Acute) Hypophosphatemia (Acute) Hypomagnesemia (Acute) Low back strain (Acute) Candiduria (Resolved) Dehydration (Resolved) Ketonuria (Resolved) Orthostatic hypotension (Resolved) Thrush (Resolved) pseudohyponatremia (Resolved) 1. acute pneumococcal pneumonia, presumed COVID-19 negative on amox/CA since 03/10 2. Sepsis POA 2/2 pneumonia resolved 3. Breast cancer follow up with Dr. Barakat 4. Debility to rehab pending precertification 5. VTE prophylaxis: LMWH Inpatient E&M: 39165 Subs Hosp L2
[2020-03-11 12:21] LABS: Bedside Glucose 156 mg/dL (70-110)
[2020-03-11] MEDS: Loperamide 2 MG Capsule 4 MG PO (12:36)
[2020-03-11 14:56] VITALS: BP 165/74; PULSE 97; RESP 18; TEMP 37.2; O2SAT 96
[2020-03-11 15:26] VITALS: O2SAT 96
[2020-03-11] MEDS: 0.9% Saline Lock 10 ML Syringe IV (15:30)
== END 2020-03-11 15:41 | disposition skilled nursing facility (03) | DRG 871 ==
LOC: ED 06:27 → MS2 08:03 → MS3 03-12 09:17
PROVIDERS: Family Medicine; Internal Medicine Infectious Disease; Admitting Provider Family Medicine; Emergency Provider Student in an Organized Health Care Education/Training Program; PCP Internal Medicine
DX: A41.9 Sepsis, unspecified organism (principal); J18.9 Pneumonia, unspecified organism; C78.00 Secondary malignant neoplasm of unspecified lung; C77.3 Secondary and unspecified malignant neoplasm of axilla and upper limb lymph nodes; C50.919 Malignant neoplasm of unspecified site of unspecified female breast; I10 Essential (primary) hypertension; K21.9 Gastro-esophageal reflux disease without esophagitis; E04.9 Nontoxic goiter, unspecified; E78.5 Hyperlipidemia, unspecified; F32.9 Major depressive disorder, single episode, unspecified; F41.9 Anxiety disorder, unspecified; E11.40 Type 2 diabetes mellitus with diabetic neuropathy, unspecified; Z92.21 Personal history of antineoplastic chemotherapy; Z87.891 Personal history of nicotine dependence; E83.42 Hypomagnesemia; E11.65 Type 2 diabetes mellitus with hyperglycemia; G89.4 Chronic pain syndrome; D64.9 Anemia, unspecified
CPT/HCPCS: 36415; 36591; 71045; 71275; 80048; 80053; 80202; 81001; 82009; 82728; 82962; 83605; 83615; 83735; 83880; 84100; 84145; 84484; 85025; 85027; 85379; 85610; 85730; 86140; 86850; 86900; 86901; 86920; 86922; 87040; 87086; 87088; 87449; 87633; 87635; 87641; 93005; 97110; 97162; 97166; 97530; 97535; 99285; J7030; J7040; J7050; P9016; Q9967; A4216; J1940; J2405; U0002

== ENCOUNTER 2020-03-11 15:48 | Inpatient (IN) | payer OTHER, SELFPAY ==
[2020-03-08 09:20] VITALS: BMI 33.8
[2020-03-11 15:58] VITALS: BP 166/87; PULSE 103; RESP 16; TEMP 37; O2SAT 99; BMI 36.3; BMI 36.4
[2020-03-11 17:06] LABS: Bedside Glucose 172 mg/dL (70-110)
[2020-03-11] MEDS: Insulin Lispro 100 UNIT/ML INSULN.PEN 15 UNIT SC (17:14)
[2020-03-11 17:34] VITALS: PULSE 103; RESP 16; O2SAT 99
[2020-03-11] MEDS: Atorvastatin Calcium 40 MG Tablet PO (20:59)
[2020-03-11] MEDS: Amox/Clavulanate 875 MG Tablet PO (20:59)
[2020-03-11 21:29] VITALS: BP 166/87; PULSE 103; RESP 20; TEMP 37; O2SAT 99
[2020-03-11 22:00] VITALS: PULSE 103
[2020-03-11 22:25] LABS: Bedside Glucose 137 mg/dL (70-110)
--- NOTE | 2020-03-12 02:04 | NURSING ---
Notified by RN ADVANCED pt c/o SOB after returning from bathroom. Pt sitting up in bed, SpO2 96%, res 24. Placed on 2L nc. Lungs clear. Pt's respirations improved after several minutes.
[2020-03-12 02:21] VITALS: O2SAT 97
[2020-03-12 06:11] LABS: Bedside Glucose 167 mg/dL (70-110)
[2020-03-12 07:00] VITALS: O2SAT 99
[2020-03-12 08:22] VITALS: BP 149/87; PULSE 96; RESP 18; TEMP 37.4; O2SAT 97
[2020-03-12] MEDS: Pantoprazole Sodium 20 MG Tablet PO (09:40)
[2020-03-12] MEDS: Amox/Clavulanate 875 MG Tablet PO ×2 (09:41→20:55)
[2020-03-12] MEDS: Insulin Lispro 100 UNIT/ML INSULN.PEN 15 UNIT SC ×2 (09:42→17:17)
[2020-03-12] MEDS: Timolol 0.5% 5ML OPTH.BTL 1 DRP EACH EYE (09:47)
[2020-03-12 10:06] LABS: Bedside Glucose 198 mg/dL (70-110)
--- NOTE | 2020-03-12 10:33 | CASEMGMT ---
Social Work Met with patient for initial assessment. Pt is on SSDI for about two years, works. Pt reported to being independent prior but with difficulty, only makes basic meals, trouble with housekeeping and does laundry since it is in the basement. Discussed Medicaid - pt may qualify. Provided application and can apply for Waiver services. Offered [facility], [employer] and transportation resources - pt agreed. Provided resources. Pt is active with [facility] for hx of breast cancer. Pt reports to depression and anxiety - meds effective, denies use of counseling, but would be interested in going to counseling with Palliative if needed in the future. Explained Team and insurance information. Pt expressed understanding. Will continue to follow. Carolina Vilchis, [employer]
[2020-03-12 12:10] LABS: Bedside Glucose 164 mg/dL (70-110)
[2020-03-12] MEDS: Diphenoxylate/Atrop 1 Tablet PO (15:15)
[2020-03-12] MEDS: Bumetanide 1 MG/4 ML Vial 2 MG IV (15:45)
--- NOTE | 2020-03-12 16:11 | PCM.HP.STD ---
Problem List (1) Nephrotic syndrome Status: Suspected (2) Left ventricular hypertrophy Status: Chronic (3) Grade I diastolic dysfunction Status: Chronic (4) Sepsis Status: Resolved Qualifiers: (5) Bilateral pneumonia Status: Acute Qualifiers: Comment: bacterial RUL and RML (6) Neuropathy Status: Chronic (7) HTN (hypertension) Status: Chronic Qualifiers: Hypertension type: essential hypertension (8) DM (diabetes mellitus), type 2, uncontrolled with complications Status: Chronic (9) Goiter Status: Chronic (10) GERD (gastroesophageal reflux disease) Status: Chronic Qualifiers: (11) Sinus tachycardia Status: Resolved (12) Abnormal ECG Status: Chronic (13) Anxiety and depression Status: Chronic (14) Invasive ductal carcinoma of breast Status: Chronic Qualifiers: Laterality: right Comment: Diagnosed with right breast cancer stage Ia in August 2013. Needle biopsy showed invasive ductal carcinoma which was triple negative. She underwent partial mastectomy with a sentinel node biopsy. The sentinel node biopsy was negative. She developed lung nodules in October 2016 and a right axillary mass. She had right axillary lymphadenectomy on December 24, 2016 and 1 out of 7 lymph nodes was positive with metastatic poorly differentiated carcinoma, triple negative. She also has metastatic pulmonary nodules. She is currently being managed by Dr. Clifford Barakat. (15) Hyperlipidemia Status: Chronic Qualifiers: (16) Intractable nausea and vomiting Status: Resolved (17) Dehydration Status: Resolved (18) Hypokalemia Status: Resolved (19) Acute bronchitis Status: Resolved (20) Sinusitis Status: Resolved (21) Hypotension Status: Resolved (22) Hypophosphatemia Status: Resolved (23) Hypomagnesemia Status: Chronic (24) Low back strain Status: Resolved Qualifiers: (25) Normochromic normocytic anemia Status: Chronic (26) Proteinuria Status: Chronic (27) Glaucoma Status: Chronic (28) Anasarca Status: Acute History of Present Illness Date of Admission: 03/11/20 Chief Complaint: Physical debility secondary to recent sepsis secondary to multilobar bacterial pneumonia. Anitra Wilcox is a 49 year old -[place] female with a past medical history of diabetes mellitus type 2, essential hypertension, mild left ventricular hypertrophy, chronic normochromic normocytic anemia, tobacco dependence in remission, grade 1 diastolic dysfunction, peripheral neuropathy, proteinuria, GERD, goiter, triple negative invasive ductal carcinoma with mets to the lungs initially diagnosed in 2013, GERD, anxiety/depression, hyperlipidemia and chronic hypomagnesemia who presented to the emergency department at [facility] on 03/08/2020 complaining of shortness of breath that had been increasing over the previous few weeks new fever which was 103 ?F upon arrival in the emergency department. She additionally complained of associated chills and nausea. Portable chest x-ray was interpreted as multifocal pneumonia. Covid antigen was negative. The white blood cell count was 4.9, hemoglobin was 8.2 and platelets were 269,000. Electrolytes were unremarkable and the BUN was 26 with a creatinine of 0.95. Lactic acid level was 1.5. Magnesium was low at 1.2 and LFTs were unremarkable. Procalcitonin was elevated at 0.15. A CT scan of the chest showed no pulmonary emboli but did show right middle lobe and right upper lobe airspace consolidation and multiple bilateral pulmonary nodules. She was admitted to the hospital and started on intravenous vancomycin and Zosyn. The following morning she was feeling better. She continued to c/o PAGE and orthopnea. She was started on Supplemental oxygen. Nasal MRSA was negative. Legionella and streptococcal antigens in the urine were negative. Respiratory panel was negative. Blood cultures had no growth in 48 hours. She continued to improve and was transferred to the inpatient acute rehab unit on 03/11/2020 for physical debility secondary to multifocal pneumonia/sepsis. She will do 3 hours of therapy daily to restore her at or near her prior level of function. She was living at home with her who is able to help her post discharge. She gained 16 lbs while in the hospital. Past Medical History Past Medical History (Chronic Problems): Chronic Problems (Last Reviewed 03/12/20 @ 18:[address] Delmy Begum, ) Left ventricular hypertrophy (Chronic) Grade I diastolic dysfunction (Chronic) Normochromic normocytic anemia (Chronic) Proteinuria (Chronic) Glaucoma (Chronic) Neuropathy (Chronic) HTN (hypertension) (Chronic) DM (diabetes mellitus), type 2, uncontrolled with complications (Chronic) Goiter (Chronic) GERD (gastroesophageal reflux disease) (Chronic) Abnormal ECG (Chronic) Anxiety and depression (Chronic) Invasive ductal carcinoma of breast (Chronic) Diagnosed with right breast cancer stage Ia in August 2013. Needle biopsy showed invasive ductal carcinoma which was triple negative. She underwent partial mastectomy with a sentinel node biopsy. The sentinel node biopsy was negative. She developed lung nodules in October 2016 and a right axillary mass. She had right axillary lymphadenectomy on December 24, 2016 and 1 out of 7 lymph nodes was positive with metastatic poorly differentiated carcinoma, triple negative. She also has metastatic pulmonary nodules. She is currently being managed by Dr. Clifford Barakat. Hyperlipidemia (Chronic) Hypomagnesemia (Chronic) Medical History: Medical History (Last Reviewed 03/12/20 @ 18:[address] Delmy Begum, DO) Neuropathy (Chronic) G62.9 [place] node September 2016 Dr Ruiz at [facility] Allergies No Known Allergies Allergy (Verified 03/08/20 05:27) Home Medications: Ambulatory Orders Medication Instructions Recorded Valacyclovir HCl [Valtrex] 500 mg PO DAILY PRN PRN 02/12/13 bumetanide 2 mg tablet 2 mg PO BID 11/06/19 cholestyramine (with sugar) 4 gram 4 g PO TID PRN g 11/06/19 oral powder diphenoxylate-atropine 2.5 2 tab PO .QID PRN tab 11/06/19 mg-0.025 mg tablet insulin lispro 100 unit/mL 15 unit SC TID ml 11/06/19 subcutaneous solution methadone 5 mg tablet 5 mg PO BID tab 11/06/19 omeprazole 20 mg tablet,delayed 20 mg PO DAILY 11/06/19 release potassium chloride 10 mEq 20 meq PO DAILY cap 11/06/19 capsule,extended release timolol 0.5 % eye drops 1 drp OPHTHALMIC DAILY 11/06/19 Insulin Glargine [Lantus SoloStar 30 unit SC DAILY 03/08/20 Pen] Amox/Clavulanate Tablet [Augmentin 875 mg PO Q12H 03/11/20 Tablet] Atorvastatin Calcium [Lipitor] 40 mg PO QHS 03/11/20 Surgical History: Surgical History (Last Updated 11/06/19 @ 09:57 by Selam Swenson) History of hysterectomy Z90.710 2005 History of lumpectomy of right breast Z98.890 2013 Surgical History: cataract, hysterectomy, - - Breast lumpectomy, IV port for chemo, lymphadenectomy right axilla, Psychiatric History: Anxiety, Depression 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 Delmy Begum DO) Mother Breast cancer Diabetes Aunt Skin cancer Father Heart disease Hypertension Brother Asthma Grandmother Colon cancer History Items: Pulmonary Disease Maternal Family History: Family History (Last Reviewed 03/12/20 @ 18:[address] Delmy Begum DO) Mother Breast cancer Diabetes Aunt Skin cancer Father Heart disease Hypertension Brother Asthma Grandmother Colon cancer History Items: Cancer - Breast Paternal Family History: Family History (Last Reviewed 03/12/20 @ 18:[address] Delmy Begum DO) Mother Breast cancer Diabetes Aunt Skin cancer Father Heart disease Hypertension Brother Asthma Grandmother Colon cancer History Items: Diabetes, High Cholesterol Review of Systems Constitutional: Reports: Weakness. Denies: Chills, Fever, Weight Change Eyes: Denies: Vision Change HEENT: Denies: Difficulty Hearing, Difficulty Swallowing, Head Aches, Nasal Congestion, Sinus Congestion, Sinus Drainage, Sore Throat Cardiovascular: Reports: Edema, Orthopnea, Paroxysmal Noc. Dyspnea. Denies: Chest Pain, Claudication, Light Headedness, Palpitations Respiratory: Reports: Cough, Shortness of Breath, Shortness of breath upon exertion. Denies: Hemoptysis, Pleuritic Pain, Shortness of breath at rest, Sputum production, Wheezing Gastrointestinal: Reports: Diarrhea - She has loose stool which is probably secondary to Augmentin., - - She denies abdominal pain but has fullness in her upper abdomen.. Denies: Abdominal Pain, Nausea, Vomiting Genitourinary: Reports: - - She complains of decreased urine OP which is chronic unless she takes Bumex 4 mg in the AM. Denies: Dysuria, Hesitancy, Retention Gynecological: Denies: Vaginal discharge Musculoskeletal: Denies: Joint Pain, Joint swelling, Joint Tenderness Skin: Denies: Jaundice, Lesions, Rash, Wounds Neurological: Reports: Balance problems - Due to severe peripheral neuropathy in her feet. Denies: Double vision, Change in Speech, Slurred speech, Confusion, Difficulty swallowing, Focal weakness, Numbness, Tingling, Tremor, Seizures Psychiatric: Reports: Anxiety, Depression. Denies: Homicidal Ideations, Suicidal Ideations Endocrine: Reports: Change in Body Habitus - She has gained 16 pounds since being admitted to the hospital on 03/08/2020 Hematologic/ Lymphatic: Reports: Anemia. Denies: Easy Bruising, Easy Bleeding, Hx of blood clot VTE Information - Inpt Only VTE Present on Admission: No VTE Mechan Device Prophylaxis: Knee High ELIGIO [employer] - She actually has BL DINESH wraps to the LE's up to the knee BL VTE Pharm Prophylaxis ordered?: Yes Patient Problems: Active and Suspected Problems (Last Reviewed 03/12/20 @ 18:[address] Delmy Begum, DO) Bilateral pneumonia (Acute) bacterial RUL and RML Nephrotic syndrome (Suspected) - Physical Exam Vitals/I&O's: Vital Signs Temp Pulse Resp BP Pulse Ox 99.4 F H 96 18 149/87 H 97 03/12/20 08:22 03/12/20 08:22 03/12/20 08:22 03/12/20 08:22 03/12/20 08:22 Oxygen Flow Rate (L/min) 2 Oxygen Delivery Method Room Air Weight: 232 lb 5.875 oz Body Mass Index (BMI) 36.3 Finger Stick Blood Glucose 156 Intake and Output for Last 24 Hours 03/10/20 03/11/20 03/12/20 23:59 23:59 23:59 Intake Total 840 / 840 Output Total 800 / 800 Balance 40 / 40 General: Alert, Oriented x3, Cooperative, No apparent distress, Well developed, Well nourished, - - sitting in the recliner at the bedside HEENT: Atraumatic, EOMI, Normocephalic, - - Pupils are equal, round and reactive to light Oral: Moist Mucosa Neck: Supple, Negative Carotid Bruits, No Nodes, No Nuchal Rigidity, Trachea Midline, - - Could not assess for JVD because she was sitting upright in a chair. Carotids had brisk upstroke and excellent pulse volume bilaterally. Lungs: - - She has a few coarse crackles anteriorly on the right and diminished breath sounds in the right base . There was no wheezing, no conversational dyspnea and no tachypnea while she is upright. She does get short of breath when lying down and when exerting herself. The left lung was clear with good Cardiovascular: Regular Rhythm, Normal S1, Normal S2, No murmurs, No rub noted, No Gallop, - - The resting heart rate is in the high 90s. Abdomen: Bowel Sounds Present, Soft, Non Tender, Distended - Mildly distended and tympanic in the upper abdomen. Normal bowel sounds heard. She has pitting edema in the flanks bilaterally and pitting edema of the lower abdominal wall. Extremities: No clubbing, No cyanosis, Capillary Refill Less than 3 Seconds, No Calf Tenderness, Diminished Peripheral Pulses - Possibly secondary to significant pitting edema of both lower extremities. Radial pulses are 3/3 bilaterally., Edema - She has pitting edema of the lower extremities to the groin and pitting edema of the lower abdominal wall and the flanks bilaterally. She also has lymphedema of the right upper extremity. Skin: No rashes, No breakdown Musculoskeletal: - - No joint swelling and no tenderness to palpation of the joints. Neurological: Cranial nerves II-XII grossly intact, Neuro grossly intact - Except for neuropathy involving the hands, right greater than left, and both feet., - Psych/Mental Status: Normal Affect, Appropriate Microbiology Past 72 Hours 03/12/20 13:30 Stool Stool Occult Blood (SHAY) - Final Laboratory Results 03/11/20 17:01: POC Glucose 172 H 03/11/20 22:19: POC Glucose 137 H 03/12/20 06:07: POC Glucose 167 H 03/12/20 09:54: POC Glucose 198 H 03/12/20 12:04: POC Glucose 164 H Current Medications Acyclovir (Acyclovir 200 Mg Capsule) 400 mg PO DAILY PRN PRN PRN Reason: HERPES Amoxicillin/Clavulanate Potassium (Amox/Clavulanate 875 Mg Tablet) 875 mg PO Q12 [facility] Last Admin: 03/12/20 09:41 Dose: 875 mg Documented by: Atorvastatin Calcium (Atorvastatin Calcium 40 Mg Tablet) 40 mg PO QHS [facility] Last Admin: 03/11/20 20:59 Dose: 40 mg Documented by: Bisacodyl (Bisacodyl 10 Mg Suppository) 10 mg RECTAL .PRN X 1 PRN PRN Reason: Constipation Bumetanide (Bumetanide 1 Mg/4 Ml Vial) 2 mg IV DAILY [facility] Stop: 03/14/20 10:01 Last Admin: 03/12/20 15:45 Dose: 2 mg Documented by: Bumetanide (Bumetanide 2 Mg Tablet) 2 mg PO BIDLX [facility] Cholestyramine Resin (Cholestyramine/Sucrose 4 Gm/Packet) 4 gm PO TID PRN PRN PRN Reason: Diarrhea Diphenoxylate HCl/Atropine (Diphenoxylate/Atrop 1 Tablet) 1 - 2 tablet PO Q6H PRN PRN PRN Reason: Diarrhea Last Admin: 03/12/20 15:15 Dose: 2 tablet Documented by: Insulin Glargine (Insulin Glargine 100 Units/Ml Pen) 30 units SC QHS [facility] Insulin Human Lispro (Insulin Lispro 100 Unit/Ml Insuln.Pen) 15 unit SC 0800,1200,1700 [facility] Last Admin: 03/12/20 13:57 Dose: Not Given Documented by: Magnesium Hydroxide (Magnesium Hydroxide 30 Ml Udc) 30 ml PO .PRN X 1 PRN PRN Reason: Constipation Methadone HCl (Methadone 5 Mg Tablet) 5 mg PO BID [facility] Last Admin: 03/12/20 09:42 Dose: 5 mg Documented by: Nutritional Formula (Lactose Free) (Glucerna Shake 120 Ml Liquid) 120 ml PO TIDCM [facility] Last Admin: 03/12/20 12:19 Dose: Not Given Documented by: Pantoprazole Sodium (Pantoprazole Sodium 20 Mg Tablet) 20 mg PO DAILY [facility] Last Admin: 03/12/20 09:40 Dose: 20 mg Documented by: Potassium Chloride (Potassium Chloride 20 Meq Tablet) [facility] Last Admin: 03/12/20 09:41 Dose: 20 meq Documented by: Senna/Docusate Sodium (Senna/Docusate Sodium 1 Tablet) 2 tablet PO BID [facility] Last Admin: 03/12/20 09:47 Dose: Not Given Documented by: Timolol Maleate (Timolol 0.5% 5ml Opth.Btl) 1 drop EACH EYE DAILY [facility] Last Admin: 03/12/20 09:47 Dose: 1 drop Documented by: Assessment/Plan All Active Problems (Last Reviewed 03/12/20 @ 18:[address] Delmy Begum DO) Sepsis (Resolved) Bilateral pneumonia (Acute) Anasarca (Acute) Sinus tachycardia (Resolved) Acute bronchitis (Resolved) Dehydration (Resolved) Hypokalemia (Resolved) Hypophosphatemia (Resolved) Hypotension (Resolved) Intractable nausea and vomiting (Resolved) Low back strain (Resolved) Sinusitis (Resolved) Candiduria (Resolved) Dehydration (Resolved) Ketonuria (Resolved) Orthostatic hypotension (Resolved) Thrush (Resolved) pseudohyponatremia (Resolved) Impressions 1. Acute physical debility secondary to sepsis/multilobar bacterial pneumonia. 2. Multilobar bacterial pneumonia-improving on antibiotics 3. Triple negative invasive ductal carcinoma of the right breast with mets to the lungs 4. Poorly controlled diabetes mellitus type 2 5. Essential hypertension 6. Hyperlipidemia 7. Proteinuria with suspected nephrotic syndrome 8. Anasarca with a 16 pound weight gain from 03/08/2020 to 03/11/2020 9. Goiter 10. GERD 11. Peripheral neuropathy likely secondary to combination of chemotherapy and poorly controlled longstanding diabetes mellitus type 2. She has been diabetic since the seventh grade. 12. Chronic hypomagnesemia 13. Mild left ventricular hypertrophy on echocardiogram in 2018 Grade 1 diastolic dysfunction 14. Chronic normochromic normocytic anemia 15. Glaucoma PLAN PT for gait stability OT for ADL's Analgesics as needed Bowel protocol Fall precautions Assess for Anxiety/Depression GI prophylaxis with pantoprazole 20 mg daily DVT prophylaxis with enoxaparin 40 mg subcu daily and knee-high Dinesh wraps Follow up with Dr. Barakat and Dr. Law following DC from IP Rehab AM lab including CMP, CBC, Mag and Phos, HGBA1C, iron and iron saturation Hemoccult stool - negative CXR PA and LAT for possible R pleural effusion Trazodone for insomnia Check a 24H urine for quantitative protein Restart Wellbutrin and citalopram DC Bumex 2 mg p.o. twice daily and start Bumex 2 mg IV daily Check daily weights Accurate I&O's Maintain the potassium at 4and the Mag at 2. Elevate the LE's any time she is sitting in a chair Augmentin 875 BID to complete 8 days of antibiotics No chemo until the PNA has resolved and she is no longer coughing or SOB - Will discuss with Dr. Barakat Monitor the HGB closely because she has had 2 recent transfusions. Get Surepress wraps to compress the legs Add a 2GM sodium restriction and a 1200 cc fluid restriction. CODE STATUS: Discussed code status at length with Anitra including the difference between FULL CODE, DNR CCA and DNR CC status. All questions were answered. An order for DNR CC arrest with no intubation was entered into the computer. A total of 20 minutes face to face time was devoted to advanced care planning. Inpatient E&M: 62437 Init Hosp L3
--- NOTE | 2020-03-12 16:13 | REHABEVAL_ITS ---
Admission Information Primary Diagnosis:: Physical debility secondary to recent sepsis due to multifocal bacterial pneumonia Status Changes from Prescreening?: No changes Identified Actual Problem List:: Infection, Pain, ALteration in Cmfrt, Depression, Alteration in Sleep, Mobility Impaired, Self Care Deficit, Know.Dfct/Disease Process, Diabetes, Hyperglycemia, BP, Hypertension, Alteration/ Air Exchange, Fluid Overload r/t CHF, Alteration-Leisure Activ. Potential Problem List:: DVT, Bleeding, Infection, UTI, Aspiration, Falls, Skin Integrity, Depression Risk of Complications DVT: LMWH, ELIGIO Hose Bleeding: Monitor Lab Values, Nursing to Teach Precautions for anti-coagulation therapy., Wound, if applicable, to be assessed every shift., Stroke patients assessed for lethargy or change in status. Infection: Clinical Staff to Monitor for S/S of infection:, S/S of infection include fever, redness, warmth, etc. Urinary Tract Infection: Monitor for frequency, burning, discomfort, or incontinence., Nursing will obtain urine sample for urinalysis and C&S when ordered. Aspiration: Clinical staff will monitor for coughing, drooling, congestion., Speech will evaluate swallowing and dsyphasia., Nursing will monitor patient swallowing during meals. Falls: Patient will be evaluated for Fall Precautions, Patient will be placed on Fall Precautions as indicated per protocol. Skin Breakdown: Nursing will assess skin daily using assessment tool., Nursing will place on Skin Breakdown Precautions as indicated. Pain: Clinical staff will assess patient's pain level per protocol., Medications will be given, if needed, and the pain level reassessed., Other methods: Massage, distraction, decrease stimulus, etc. used PRN. Plan of Care Patient requires physician specializing in physical medicine and rehab oversight to provide close medical supervision of rehab issues including: Pain Management, Sleep Problems, Bowel and Bladder, Medical and co-morbidity Management, DVT prophylaxis, Rehabilitation Leadership, Coordination of treatment team Patient needs Physical Therapy: For a minimum of 1 hour, At least 5 out of 7 days Patient needs Physical Therapy to improve:: Mobility, Mobility, Mobility, Strengthening, Transfers, Stretching, ROM, Endurance, Stairs, Gait, Balance Patient needs Occupational Therapy: For a minimum of 1 hour, At least 5 out of 7 days Patient needs Occupational Therapy to improve ADL's incl.: Eating, Grooming, Bathing, Dressing, Toileting, Toilet transfers, Community Reintegration, Higher functioning activities, Household tasks, Adaptive Equipment, Splinting, Other activities as determined Patient requires 24/7 Rehabilitation Nursing for: Pain Issues, Identifying and preventing risk factors, Monitoring and reporting current medical conditions, Assisting with ambulation, transfer, and all ADL's, Teaching patients about disease process and medications, Family teaching, Providing safe environment, Bowel and Bladder Issues, Skin integrity, Medication Management Patient needs Medical Coding Auditor/ Case Management for: Discharge Planning, Arranging Home Equipment or Services, Family Interventions Patient needs Dietary and Nutrition Services for: Adequate Nutrition, Nutritional Supplements, Nutritional Education Goals Patient will remain: free from falls, or injury at time of discharge. Patient will perform bed mobility at: MOD I level of assist. Patient will complete transfers from bed to chair at: MOD I level of assist. Patient will ambulate: - - 300 feet Patient will propel wheelchair: - - Not applicable Patient will complete upper body dressing at: MOD I level of assist. Patient will complete lower body dressing at: MOD I level of assist. Patient will complete toileting at: MOD I level of assist. Patient will perform bathing at: MOD I level of assist. Patient will complete grooming at: MOD I level of assist. Patient will complete home management skills at: MOD I level of assist. Patient will achieve: with standby assist, - - 2 steps to get into her house with one rail at standby assist Patient will have pain level of: of 3 or less Patient's skin will: remain intact Patient will receive: adequate nutrition. Discharge Planning Pt Prognosis for Sig. Practical Improv. w/in Reasonable Time: Good Estimated Length of stay (days): 14 Anticipated D/C Destination: Home with Home Health Was Preadmission Assessment Accurate?: Yes
--- NOTE | 2020-03-12 16:45 | NURSING ---
24 hour urine for protein started. needs kept on ice.
[2020-03-12 17:01] LABS: Bedside Glucose 268 mg/dL (70-110)
--- NOTE | 2020-03-12 17:38 | RAD_ITS ---
STUDY: X-RAY CHEST REASON FOR EXAM: Female, 49 years old. Chest pain TECHNIQUE: PA and lateral views of the chest COMPARISON: None. FINDINGS: Left chest tunneled catheter is present with the tip at the SVC. Mild right greater than left pulmonary infiltrates are present. There is a trace right effusion. The left pleural space is clear. There is no pneumothorax. The heart is enlarged. The visualized osseous structures are within normal limits. RAD/Chest PA and Lateral IMPRESSION: Mild right greater left pulmonary infiltrates. Trace right effusion. Cardiomegaly. Electronically Signed: Adán Hartmann, at 19:53 EST Tel , Service support ,
[2020-03-12 19:13] VITALS: BP 162/83; PULSE 100; RESP 20; TEMP 36.6; O2SAT 94
[2020-03-12 20:46] LABS: Bedside Glucose 147 mg/dL (70-110)
[2020-03-12] MEDS: Atorvastatin Calcium 40 MG Tablet PO (20:54)
[2020-03-12] MEDS: traZODone 50 MG Tablet PO (20:54)
[2020-03-12 22:00] VITALS: PULSE 100; RESP 18; O2SAT 96
[2020-03-13 06:46] LABS: Bedside Glucose 163 mg/dL (70-110)
[2020-03-13 07:22] LABS: Hematocrit 27.6 % (37-47); Hemoglobin 8.6 g/dL (12.0-15.0)
[2020-03-13] MEDS: 0.9% Saline Lock 10 ML Syringe IV ×2 (07:34→11:51)
[2020-03-13 07:45] VITALS: BP 134/64; PULSE 90; RESP 18; TEMP 37.3; O2SAT 93
[2020-03-13 07:50] LABS: Hemoglobin A1c 9.7 % (3.8-5.6)
[2020-03-13 07:51] LABS: Anion Gap 4 (5-15); BUN 30 mg/dL (7-18); BUN/Creat Ratio 29.4 RATIO (10-20); Calcium,Total 8.4 mg/dL (8.5-10.1); Chloride 105 mmol/L (98-107); Creatinine, Serum 1.02 mg/dL (0.55-1.02); EST Glomerular Filtration Rate 61 mL/min (>60); Est Glom Filt Rate - Afr Amer 74 mL/min (>60); Estimated Creatinine Clearance 64.17 ml/min; Glucose 158 mg/dL (74-106); Iron 16 ug/dL (50-170); Iron Binding Capacity,Total 161 ug/dL (250-450); Magnesium 1.6 mg/dL (1.6-2.6); PERCENT IRON SATURATION 9.9 % (15.0-55.0); Potassium 4.4 mmol/L (3.5-5.1); Sodium Level 139 mmol/L (136-145)
[2020-03-13] MEDS: Glucerna Shake 120 ML LIQUID PO (07:52)
[2020-03-13] MEDS: Insulin Lispro 100 UNIT/ML INSULN.PEN 15 UNIT SC (07:56)
[2020-03-13] MEDS: Pantoprazole Sodium 20 MG Tablet PO (10:28)
[2020-03-13] MEDS: Enoxaparin 40 MG/0.4 ML Syringe SC (10:28)
[2020-03-13] MEDS: Amox/Clavulanate 875 MG Tablet PO ×2 (10:28→20:59)
[2020-03-13] MEDS: Bumetanide 1 MG/4 ML Vial 2 MG IV ×2 (11:31→17:44)
[2020-03-13 11:40] LABS: Bedside Glucose 106 mg/dL (70-110)
[2020-03-13] MEDS: Diphenoxylate/Atrop 1 Tablet PO ×2 (12:28→20:59)
[2020-03-13] MEDS: Insulin Lispro 100 UNIT/ML INSULN.PEN 8 UNIT SC ×2 (13:36→17:46)
[2020-03-13] MEDS: Timolol 0.5% 5ML OPTH.BTL 1 DRP EACH EYE (13:38)
[2020-03-13 14:00] VITALS: O2SAT 97
[2020-03-13] MEDS: Sertraline 50 MG Tablet PO (15:15)
[2020-03-13 16:00] VITALS: TEMP 37.9
[2020-03-13 17:00] VITALS: TEMP 37.5
[2020-03-13 17:11] LABS: Bedside Glucose 134 mg/dL (70-110)
[2020-03-13 19:28] VITALS: BP 147/83; PULSE 98; RESP 18; TEMP 37.2; O2SAT 94
[2020-03-13] MEDS: Atorvastatin Calcium 40 MG Tablet PO (20:59)
[2020-03-13 21:15] LABS: Bedside Glucose 140 mg/dL (70-110)
[2020-03-13 21:37] LABS: 24HR. UA Prot. Total Volume 2675 mL; Urine Protein (24 Hour) 179.1 mg/dL (<11.9)
[2020-03-13 22:00] VITALS: O2SAT 94
[2020-03-14 07:11] LABS: Bedside Glucose 113 mg/dL (70-110)
[2020-03-14] MEDS: Insulin Lispro 100 UNIT/ML INSULN.PEN 8 UNIT SC ×3 (07:58→16:57)
[2020-03-14 08:06] VITALS: BP 126/65; PULSE 89; RESP 18; TEMP 37.2; O2SAT 92
--- NOTE | 2020-03-14 09:03 | PCM.PN.BLA ---
Progress Note Day #7 antibiotics T-max is 100.3 ?F and that was yesterday afternoon at 4:00. And temperature is 98.9 today. VSS Maintaining appropriate oxygen saturation on RA Oral intake is almost within the 1200 cc fluid restriction. The weight today is recorded as 224 pounds and 7 ounces she is down from 235 pounds and 14 ounces yesterday. Question the validity because the fluid balance yesterday was -1110? Will not make changes and continue to monitor daily weights. Discussed with nursing - no problems that need addressed Reviewed the PT/OT notes Medication list reviewed. Bumex is 2 mg IV BID now. She is non a salt restricted diet. Blood sugars are well controlled with no hypoglycemia has not required any insulin coverage All labs personally reviewed. The 24-hour total protein in the urine is 4791 g. This is consistent with nephrotic syndrome. The serum iron is low at 16 with a TIBC of 161 and a low iron saturation at 9.9%. The TIBC and iron were obtained after she had been transfused with 2 units of PRBC's on 03/09.....she had recently been transfused prior to admission as well. The serum ferritin prior to transfusion in the hospital was 1002. She has mild elevations in AST,ALT and AP. Ferritin was likely lower than that because it is increased by acute bacterial pneumonia. Alert, oriented x3, no apparent distress, sitting upright in the recliner. Lungs-mild decreased breath sounds in the right base but clear to auscultation Heart-regular rate and rhythm Still with some pitting edema in the flanks Still with pitting edema in the posterior thigh in the pretibial areas. No calf swelling No rashes or skin breakdown Sleeping well at night with the addition of trazodone to her drug regimen Impressions 1. Physical debility secondary to multilobar bacterial pneumonia 2. Nephrotic syndrome with anasarca 3. Iron deficiency with a low transferrin saturation and an increased ferritin -due to the ferritin being over [address] Barakat iron supplementation prior to ordering it 4. Irritable bowel syndrome 5. Orthopnea-improving with diuresis 6. Chronic anemia-likely multifactorial and due to cancer and iron deficiency Continue therapy Continue diuresis with Bumex 2 mg IV twice daily daily weights recheck a BMP,HH and a MAG on Tuesday. STROKE Vital Signs/Narrative: Vital Signs Temp Pulse Resp BP Pulse Ox 03/14/20 08:06 98.9 F 89 18 126/65 H 92 Inpatient E&M: 36473 Subs Hosp L2
[2020-03-14] MEDS: Amox/Clavulanate 875 MG Tablet PO ×2 (10:17→21:29)
[2020-03-14] MEDS: Bumetanide 1 MG/4 ML Vial 2 MG IV ×2 (10:18→18:27)
[2020-03-14] MEDS: Enoxaparin 40 MG/0.4 ML Syringe SC (10:18)
[2020-03-14] MEDS: Timolol 0.5% 5ML OPTH.BTL 1 DRP EACH EYE (10:18)
[2020-03-14] MEDS: Pantoprazole Sodium 20 MG Tablet PO (10:18)
[2020-03-14] MEDS: Sertraline 50 MG Tablet PO (10:18)
[2020-03-14] MEDS: 0.9% Saline Lock 10 ML Syringe IV ×2 (10:19→10:20)
[2020-03-14 12:01] LABS: Bedside Glucose 153 mg/dL (70-110)
[2020-03-14] MEDS: Insulin Lispro 100 UNIT/ML INSULN.PEN SC ×2 (12:01→16:56)
[2020-03-14 12:27] LABS: BNP,B-Type NATRIURETIC PEPTIDE 197.4 pg/mL (0-100)
[2020-03-14] MEDS: Diphenoxylate/Atrop 1 Tablet PO ×2 (15:18→23:48)
[2020-03-14 17:21] LABS: Bedside Glucose 182 mg/dL (70-110)
[2020-03-14] MEDS: Atorvastatin Calcium 40 MG Tablet PO (21:30)
[2020-03-14 21:50] LABS: Bedside Glucose 168 mg/dL (70-110)
[2020-03-14 22:00] VITALS: BP 147/76; PULSE 16; RESP 95; TEMP 37.5; O2SAT 90
--- NOTE | 2020-03-15 05:33 | NURSING ---
pt used call light around 0525 and tells staff that she feels shaky. this nurse checks blood glucose at 0529 and blood glucose noted to be 63 and this time. pt noted to also be diaphoretic. pt given chocolate milk and fruit snacks to help elevate blood glucose. pt tells this nurse that she is starting to feel better with something in stomach. blood glucose to be rechecked at 0545. this nurse remains at bedside.
--- NOTE | 2020-03-15 05:48 | NURSING ---
0543 blood glucose reassessed at this time after chocolate milk and fruit snack. pt states she feels like she is having another sweaty episode. blood glucose checked for 59 at this time. 120 ml orange juice with 2 packets of sugar mixed in given along with granola bar. blood glucose to be rechecked at 0558. this nurse remains at the bedside.
--- NOTE | 2020-03-15 06:02 | NURSING ---
blood glucose reassessed at 0558. blood glucose noted to be 76. pt requests another pack of fruit snacks at this time. pt states that she thinks she should be good until breakfast. blood glucose to be reassessed at 0613. this nurse remains at the bedside.
--- NOTE | 2020-03-15 06:11 | NURSING ---
0609 blood glucose reassessed at this time. blood glucose was 109. pt states she feels better but would like to rest in bed until breakfast just because of prior blood glucose levels. this nurse understands and assists pt back to bed. pt very thankful that staff stays with pt during time of hypoglycemia. pt comfortable in bed with call light within reach. denies further needs.
[2020-03-15 08:03] VITALS: O2SAT 96
[2020-03-15 08:10] LABS: Bedside Glucose 240 mg/dL (70-110)
[2020-03-15] MEDS: Insulin Lispro 100 UNIT/ML INSULN.PEN 8 UNIT SC ×3 (08:13→17:05)
[2020-03-15 08:33] VITALS: BP 168/80; PULSE 85; RESP 18; TEMP 36.8; O2SAT 94
[2020-03-15 09:11] LABS: Bedside Glucose 242 mg/dL (70-110)
[2020-03-15] MEDS: Bumetanide 1 MG/4 ML Vial 2 MG IV (09:37)
[2020-03-15] MEDS: 0.9% Saline Lock 10 ML Syringe IV ×2 (09:45→11:00)
[2020-03-15] MEDS: Enoxaparin 40 MG/0.4 ML Syringe SC (09:46)
[2020-03-15] MEDS: Timolol 0.5% 5ML OPTH.BTL 1 DRP EACH EYE (09:47)
[2020-03-15] MEDS: Pantoprazole Sodium 20 MG Tablet PO (09:53)
[2020-03-15] MEDS: Amox/Clavulanate 875 MG Tablet PO ×2 (09:53→21:13)
[2020-03-15] MEDS: Sertraline 50 MG Tablet PO (09:53)
[2020-03-15 11:15] LABS: Bedside Glucose 147 mg/dL (70-110)
[2020-03-15] MEDS: Diphenoxylate/Atrop 1 Tablet PO (13:06)
[2020-03-15] MEDS: Insulin Lispro 100 UNIT/ML INSULN.PEN SC (17:05)
[2020-03-15 17:11] LABS: Bedside Glucose 202 mg/dL (70-110)
[2020-03-15 19:31] VITALS: BP 149/79; PULSE 89; RESP 17; TEMP 37.7; O2SAT 96
[2020-03-15] MEDS: Atorvastatin Calcium 40 MG Tablet PO (21:11)
[2020-03-15 21:15] LABS: Bedside Glucose 213 mg/dL (70-110)
[2020-03-15 22:00] VITALS: PULSE 89; RESP 16; O2SAT 95
[2020-03-16 06:31] LABS: Bedside Glucose 78 mg/dL (70-110)
[2020-03-16] MEDS: 0.9% Saline Lock 10 ML Syringe IV ×2 (06:37→11:28)
[2020-03-16 06:50] LABS: Bedside Glucose 76 mg/dL (70-110)
[2020-03-16 07:59] VITALS: BP 153/80; PULSE 81; RESP 16; TEMP 37.2; O2SAT 96
[2020-03-16] MEDS: Timolol 0.5% 5ML OPTH.BTL 1 DRP EACH EYE (08:11)
[2020-03-16] MEDS: Pantoprazole Sodium 20 MG Tablet PO (08:13)
[2020-03-16] MEDS: Sertraline 50 MG Tablet PO (08:13)
[2020-03-16] MEDS: Enoxaparin 40 MG/0.4 ML Syringe SC (08:13)
[2020-03-16] MEDS: Insulin Lispro 100 UNIT/ML INSULN.PEN 8 UNIT SC ×3 (08:20→17:08)
[2020-03-16 09:05] VITALS: O2SAT 96
[2020-03-16] MEDS: Bumetanide 1 MG/4 ML Vial 2 MG IV (11:18)
--- NOTE | 2020-03-16 11:30 | NURSING ---
Walked to and from dining room at stand by assist but once in dining room, approx 120feet, she needed a rest break before walking back to her room.
[2020-03-16 12:00] LABS: Bedside Glucose 96 mg/dL (70-110)
[2020-03-16] MEDS: Insulin Lispro 100 UNIT/ML INSULN.PEN SC (17:11)
[2020-03-16 17:30] LABS: Bedside Glucose 169 mg/dL (70-110)
[2020-03-16 19:32] VITALS: BP 160/92; PULSE 90; RESP 16; TEMP 37.2; O2SAT 97
[2020-03-16 20:51] LABS: Bedside Glucose 165 mg/dL (70-110)
[2020-03-16] MEDS: Atorvastatin Calcium 40 MG Tablet PO (21:25)
[2020-03-16 22:00] VITALS: PULSE 90; RESP 16; O2SAT 97
[2020-03-17] MEDS: 0.9% Saline Lock 10 ML Syringe IV (04:09)
[2020-03-17 05:50] LABS: Bedside Glucose 140 mg/dL (70-110)
[2020-03-17 05:59] LABS: Hematocrit 30.6 % (37-47); Hemoglobin 9.6 g/dL (12.0-15.0)
[2020-03-17 06:35] LABS: Anion Gap 3 (5-15); BUN 23 mg/dL (7-18); BUN/Creat Ratio 27.4 RATIO (10-20); Calcium,Total 8.7 mg/dL (8.5-10.1); Chloride 100 mmol/L (98-107); Creatinine, Serum 0.84 mg/dL (0.55-1.02); EST Glomerular Filtration Rate 76 mL/min (>60); Est Glom Filt Rate - Afr Amer 92 mL/min (>60); Estimated Creatinine Clearance 77.92 ml/min; Glucose 138 mg/dL (74-106); Magnesium 1.8 mg/dL (1.6-2.6); Sodium Level 137 mmol/L (136-145)
[2020-03-17 06:55] LABS: Bedside Glucose 163 mg/dL (70-110)
[2020-03-17] MEDS: Diphenoxylate/Atrop 1 Tablet PO ×2 (07:06→16:38)
[2020-03-17] MEDS: Insulin Lispro 100 UNIT/ML INSULN.PEN 8 UNIT SC ×3 (07:37→18:06)
[2020-03-17] MEDS: Insulin Lispro 100 UNIT/ML INSULN.PEN SC ×2 (07:37→12:12)
[2020-03-17] MEDS: Enoxaparin 40 MG/0.4 ML Syringe SC (07:38)
[2020-03-17] MEDS: Sertraline 50 MG Tablet PO ×2 (07:39→10:48)
[2020-03-17] MEDS: Pantoprazole Sodium 20 MG Tablet PO (07:39)
[2020-03-17] MEDS: Timolol 0.5% 5ML OPTH.BTL 1 DRP EACH EYE (07:39)
[2020-03-17 07:42] VITALS: BP 143/76; PULSE 81; RESP 16; TEMP 36.7; O2SAT 95
--- NOTE | 2020-03-17 10:20 | CASEMGMT ---
Addendum entered by Carolina Vilchis 03/17/20 13:14: Pt spoke with whom prefers to use [facility] outpatient therapy. Cancelled referral to [facility]. Referred to [facility] PT/OT. Original Note: Social Work IDT met with patient for Team meeting. Discussed patient's progress in therapy. Pt is SBA for tx, ambulating 330 ft with FWw at [facility], completed 2 steps with 2HR at [facility], SBA for toileting tasks, SBA for bathing, set up for UE and LE dressing. Explained MMO CM insurance with [employer] 03/17 and continued stay is not guaranteed. Pt requesting to DC home with . IDT agreeable to DC 03/19. Pt requesting [facility] and [facility] PT/OT. SW provided transport resources if cannot transport with work. Referred to [facility] and [facility]. Plan: DC home with 03/19 with [facility] PT/OT, [facility]. Carolina Vilchis, [employer] OPERATOR [employer]ATING FIXTURE TENDER
[2020-03-17 10:35] LABS: Bedside Glucose 59 mg/dL (70-110)
[2020-03-17 10:35] LABS: Bedside Glucose 102 mg/dL (70-110)
[2020-03-17 10:35] LABS: Bedside Glucose 76 mg/dL (70-110)
[2020-03-17 10:35] LABS: Bedside Glucose 63 mg/dL (70-110)
[2020-03-17] MEDS: Lisinopril 2.5 MG Tablet PO (10:48)
[2020-03-17] MEDS: Bumetanide 2 MG Tablet PO ×2 (12:12→17:24)
[2020-03-17 12:20] LABS: Bedside Glucose 204 mg/dL (70-110)
--- NOTE | 2020-03-17 14:22 | PCM.PN.BLA ---
Progress Note Dayna was seen on team rounds today. Her less was at work and not able to participate in rounds. Afebrile VSS-blood pressures are mildly elevated. Maintaining appropriate oxygen saturation on RA Oral intake is good Her weight today is 211 pounds and 10 ounces, down from 232 pounds and 6 ounces at admission to rehab. For the past 2 days she has been on IV Bumex 2 mg once daily. She lost 1-1/2 pounds since 03/16/2020. Discussed with nursing - no problems that need addressed Reviewed the PT/OT notes Medication list reviewed. Blood sugar record was reviewed. The blood sugars are well controlled. Denies dizziness, lightheadedness, palpitations, shortness of breath. The orthopnea has resolved with diuresis and her legs are barely swollen. She denies chest pain, nausea, vomiting, stiff patient. She is consistently staying within her fluid restriction of 1200 cc daily now. All lab was personally reviewed. The hemoglobin is stable at 9.6. The BUN is 23, down from 30 on 03/13/2020. The creatinine is 0.84 which is down from 1.02 on 03/13/2020. Magnesium is 1.8. Alert and oriented X 3, NAD, sitting in the recliner at the bedside Lungs - CTA HRRR, no gallop and no ectopy abd - soft, NT, no pitting in the flanks today minimal pretibial edema and no edema of the posterior flanks today No rashes and no skin breakdown No calf tenderness Depressions 1. Physical debility secondary to multi lobar arterial pneumonia 2. Anasarca secondary to nephrotic syndrome with hypoalbuminemia and large volume fluid resuscitation while in the acute side of the hospital 3. Nephrotic syndrome-likely due to longstanding poorly controlled diabetes mellitus 4. Diabetes mellitus type 2-adequately controlled. 5. Hypertension 6. Iron deficiency - discussed with Dr. Barakat. Will go ahead and give 2 doses of iron sucrose IV while she is in rehab. she does not tolerate oral iron. 1. Anxiety/depression-tolerating sertraline 50 mg daily Start Zestril 2.5 mg p.o. daily Convert to Bumex 2 mg p.o. twice daily Continue 1200 cc fluid restriction and 2 g sodium diet at discharge Daily weights at discharge and will adjust Bumex based on her weight She will follow-up with Dr. Law going forward Continue the current insulin regimen Increase sertraline to a more therapeutic dose of 100 mg p.o. daily. I am hopeful that this will help control the anxiety when she has chemotherapy days to prevent nausea and diarrhea which I suspect are due to the anxiety and not due to side effects of the chemo Inpatient E&M: 39572 Subs Hosp L2
[2020-03-17 15:46] LABS: Bedside Glucose 74 mg/dL (70-110)
[2020-03-17 17:31] LABS: Bedside Glucose 139 mg/dL (70-110)
[2020-03-17 19:25] VITALS: BP 148/71; PULSE 80; RESP 18; TEMP 36.7; O2SAT 99
[2020-03-17 21:16] LABS: Bedside Glucose 189 mg/dL (70-110)
[2020-03-17] MEDS: Atorvastatin Calcium 40 MG Tablet PO (21:18)
[2020-03-17 22:00] VITALS: PULSE 83; RESP 16; O2SAT 99
[2020-03-18] MEDS: Diphenoxylate/Atrop 1 Tablet PO ×2 (05:18→11:34)
[2020-03-18] MEDS: 0.9% Saline Lock 10 ML Syringe IV ×3 (05:18→21:32)
[2020-03-18 06:35] LABS: Bedside Glucose 119 mg/dL (70-110)
[2020-03-18 07:55] VITALS: BP 152/73; PULSE 81; RESP 16; TEMP 36.8; O2SAT 100
[2020-03-18] MEDS: Insulin Lispro 100 UNIT/ML INSULN.PEN 8 UNIT SC ×3 (08:32→17:29)
[2020-03-18] MEDS: Timolol 0.5% 5ML OPTH.BTL 1 DRP EACH EYE (09:30)
[2020-03-18] MEDS: Sertraline 100 MG Tablet PO (09:31)
[2020-03-18] MEDS: Pantoprazole Sodium 20 MG Tablet PO (09:31)
[2020-03-18] MEDS: Enoxaparin 40 MG/0.4 ML Syringe SC (09:31)
[2020-03-18] MEDS: Lisinopril 2.5 MG Tablet PO (09:31)
[2020-03-18] MEDS: Bumetanide 2 MG Tablet PO ×2 (09:33→17:28)
[2020-03-18] MEDS: Sodium Ferric Gluconat 250 MG in 0.9% Normal Saline 250 ML 135 MG IV (10:56)
[2020-03-18] MEDS: 0.9% Normal Saline 250 ML IV.SOLN. IV (10:57)
[2020-03-18 11:50] LABS: Bedside Glucose 127 mg/dL (70-110)
--- NOTE | 2020-03-18 12:37 | PCM.PN.BLA ---
Progress Note Asked by nursing to check out the abnormal skin on the medial side of the left ankle/foot. Systolic blood pressure is a little high but she was just started on low-dose lisinopril yesterday. She is maintaining appropriate oxygen saturation on room air. Fluid balance on 03/17/2020 was -1330. Her weight today is 208 pounds and 9 ounces which is down from 232 pounds and 6 ounces at admission to rehab. She denies orthopnea. She denies dyspnea on exertion. Denies pain The edema in the L LE is > the R and she has pitting edema to the mid tibia. The skin over the distal LE's is darkened and fibrotic....more likely than not due to chronic edema. May be starting to develop a goblet deformity. The skin on the medial side of the foot is dry and hyperkeratotic. there are no openings in the skin. Can likely be debrided when the skin is moisturized. She is doing well in therapy and strength is improving. No adverse reactions to the iron sucrose. Blood sugars are well controlled. Impressions 1. Debility secondary to recent multilobar bacterial pneumonia 2. Anasarca secondary to nephrotic syndrome-diuresing nicely and was converted to p.o. Bumex 2 mg p.o. twice daily yesterday with continued good urine output 3. Diabetic nephropathy with nephrotic syndrome 4. Diabetes mellitus type [id number] at the present time 5. Low iron saturation at 9.9% with chronic anemia. 6. Peripheral neuropathy secondary to diabetes mellitus and chemotherapy Continue therapy today Have the wound care nurse evaluate the skin of the left lower extremity and debride if possible Plan discharge tomorrow to home with outpatient PT and OT BMP and CBC in the a.m. Inpatient E&M: [id number] Subs Hosp L1
[2020-03-18 17:21] LABS: Bedside Glucose 166 mg/dL (70-110)
[2020-03-18 19:34] VITALS: BP 146/71; RESP 16; TEMP 37.1; O2SAT 96
[2020-03-18] MEDS: Atorvastatin Calcium 40 MG Tablet PO (21:20)
[2020-03-18 21:56] LABS: Bedside Glucose 179 mg/dL (70-110)
[2020-03-18 22:00] VITALS: PULSE 81; RESP 16; O2SAT 96
[2020-03-19 05:44] LABS: Hematocrit 29.4 % (37-47); Mean Corp Hgb Conc 30.6 g/dL (32-36); Mean Corpuscular Hgb 28.9 pg (27.0-32.0); Mean Corpuscular Volume 94.5 fL (81-99); Mean Platelet Vol. 8.4 fl (6.2-12.0); Platelet Count 472 K/mm3 (150-450); RBC Distribution Width CV 13.2 % (11.6-14.6); RBC Distribution Width SD 45.8 fl (35.1-43.9); Red Blood Count 3.11 M/mm3 (4.2-5.4); White Blood Count 8.3 K/mm3 (4.4-11.0)
[2020-03-19 06:10] LABS: Anion Gap 4 (5-15); BUN 35 mg/dL (7-18); BUN/Creat Ratio 33.3 RATIO (10-20); Calcium,Total 8.7 mg/dL (8.5-10.1); Chloride 98 mmol/L (98-107); Creatinine, Serum 1.05 mg/dL (0.55-1.02); EST Glomerular Filtration Rate 59 mL/min (>60); Est Glom Filt Rate - Afr Amer 71 mL/min (>60); Estimated Creatinine Clearance 62.33 ml/min; Glucose 150 mg/dL (74-106); Potassium 3.7 mmol/L (3.5-5.1); Sodium Level 135 mmol/L (136-145)
[2020-03-19 06:40] LABS: Bedside Glucose 134 mg/dL (70-110)
[2020-03-19 07:44] VITALS: BP 132/63; PULSE 80; RESP 16; TEMP 37; O2SAT 96
[2020-03-19] MEDS: Bumetanide 2 MG Tablet PO (07:47)
[2020-03-19] MEDS: Sertraline 100 MG Tablet PO (07:47)
[2020-03-19] MEDS: Enoxaparin 40 MG/0.4 ML Syringe SC (07:47)
[2020-03-19] MEDS: Pantoprazole Sodium 20 MG Tablet PO (07:47)
[2020-03-19] MEDS: Lisinopril 2.5 MG Tablet PO (07:47)
[2020-03-19] MEDS: Timolol 0.5% 5ML OPTH.BTL 1 DRP EACH EYE (07:48)
[2020-03-19] MEDS: Insulin Lispro 100 UNIT/ML INSULN.PEN 8 UNIT SC ×2 (07:49→12:13)
[2020-03-19] MEDS: Sodium Ferric Gluconat 250 MG in 0.9% Normal Saline 250 ML 135 MG IV (10:37)
[2020-03-19] MEDS: 0.9% Saline Lock 10 ML Syringe IV ×2 (10:38→15:15)
[2020-03-19 10:56] LABS: Bedside Glucose 176 mg/dL (70-110)
--- NOTE | 2020-03-19 11:56 | PCM.DC ---
- Discharge Diagnoses Current Active Problems: Current Active and Chronic Problems (Last Reviewed 03/12/20 @ 18:[address] Delmy Begum, DO) Bilateral pneumonia (Acute) bacterial RUL and RML Left ventricular hypertrophy (Chronic) Grade I diastolic dysfunction (Chronic) Normochromic normocytic anemia (Chronic) Proteinuria (Chronic) Glaucoma (Chronic) Anasarca (Acute) Neuropathy (Chronic) HTN (hypertension) (Chronic) DM (diabetes mellitus), type 2, uncontrolled with complications (Chronic) Goiter (Chronic) GERD (gastroesophageal reflux disease) (Chronic) Abnormal ECG (Chronic) Anxiety and depression (Chronic) Invasive ductal carcinoma of breast (Chronic) Diagnosed with right breast cancer stage Ia in August 2013. Needle biopsy showed invasive ductal carcinoma which was triple negative. She underwent partial mastectomy with a sentinel node biopsy. The sentinel node biopsy was negative. She developed lung nodules in October 2016 and a right axillary mass. She had right axillary lymphadenectomy on December 24, 2016 and 1 out of 7 lymph nodes was positive with metastatic poorly differentiated carcinoma, triple negative. She also has metastatic pulmonary nodules. She is currently being managed by Dr. Clifford Barakat. Hyperlipidemia (Chronic) Hypomagnesemia (Chronic) You will use the following diet at home:: Cardiac - Low Salt ( try to stay under 2 GM of salt a day., Fluid restricted (specify 2000 mls, 1500 mls) - 1200 cc's daily - That is 40 ounces. Your food should be the consistency of: Regular Your liquids should be the consistency of: Regular/Thin Discharge Activity: Return to Normal Activity, [address] Drive, Use Walker - when needed Weight Bearing Status: Full weight bearing Lifting Restrictions: 10 pounds Keep extremity elevated above heart level: Legs - Elevate your legs anytime you are sitting. Apply the leg wraps when you get out of bed in the AM and renove at night. It may help even to lay down in bed with your legs on pillows for 30-60 minutes 1-2 times a day to help keep the swelling down. Additional Activity Instructions:: Keep moving. Don't sit for more than 60 - 90 minutes without getting up and taking a walk around the house. If ya don't keep moving and doing some exercises you will lose strength and flexibility. Call your doctor if you observe: Fever of 101 or Higher, Inability to urinate, Inability to have a bowel movement, Shortness of breath, Dizziness, Fainting spells, Swelling in the ankles - Your ankles may always swell BUT if the swelling is increasing to the knee or if your weight is increasing then call someone for advice, Chest pain, Increased palpitations (irregular heartbeat), Calf discomfort, Uncontrolled pain Instructions: ED Nephrotic Syndrome (Child), What Is IBS?, Tips for Using Less Salt, Low-Salt Choices, Diet and Lifestyle Tips for IBS, Eating a Low-Salt Diet Additional Instructions: A. You have nephrotic syndrome. I have given you some literature to read about this. Basically your kidney is not supposed to lose protein in the urine. When the urine has a lot of protein in it then it decreases the protein in your blood. Protein in the blood helps to keep fluid and the blood vessel instead of leaking out into the tissues and causing edema. You excrete almost 5 grams of protein in the urine a day which is ALOT. This is why you have been getting short of breath when you lie down, short of breath when you walk and having increased edema leading to swelling in your abdomen, swelling in your legs, swelling in your face. The oral diuretics do not work well when the swelling is that extensive and we have to use intravenous diuretics. Your weight when you entered the rehab unit was 232 pounds and on the date of discharge it is 210 pounds. You look like Anitra again! Soooo, how do we prevent the swelling from coming back since I can not fix the kidney and you will always lose protein in the urine? We do this by keeping salt intake low, restricting your fluid intake to 1200 cc's a day, elevating your legs when sitting, using diuretics and using compression wraps on the legs. You MUST weigh yourself every morning after you urinate. Keep a record of the weights. 1. A sudden weight gain is and indication that your body is retaining water. Before you can see any swelling in the legs you will have gained at least 4 and 1/2 pounds. A sudden decrease in weight may m,noemy you are dehydrated, [place] if you are also lightheaded or your BP is low. 2. Weigh yourself at the same time each morning, wearing the same clothes. Weigh yourself after urinating and before eating. 3. Use the same scale each day. Put the scale on a flat, hard surface-not on a rug or carpet. 4. Do not stop weighing yourself. If you forget 1 day, weigh again the next morning. 5. Keep your weight on a chart located near the scale. Write your weight on the chart as soon as you get off the scale. 6. Take your weight chart with you when you go see your doctor. 7. If you gain 3 or more pounds in 1 day, or you gain 5 or more pounds in 1 week this is a sign that you are retaining fluid. Call you doctor for directions and cut down on salt and water ingestion. 8. If your weight decreases by more than 1-2 lbs for 2-3 days in a row you maybe getting dehydrated. If you are dizzy when you stand up or if your BP is lower than normal, or if you are passing out SIT DOWN and have someone bring you water to drink. Call your doctor for advice. B. I know when you feel miserable you don't worry about your blood sugars and you eat what you can. I don't care if your sugars are a little elevated but, I would like to keep them under 220 to help your immunity and prevent infections. You have been on a carb controlled diet in rehab and we have had to decrease the amount of insulin you are taking to 8 units with meals. We also decreased the Lantus to 24 units and your blood sugars are good. I am going to give you a sliding scale to use when the blood sugars are too high or too low. If the blood sugar is 100-200 you will take 8 units. If the blood sugar is 200-260 take 1 extra unit in addition to the 8 If the blood sugar is between 261-310 take 2 extra units If the Blood sugar is > 310 take 3 units and if it is > 350 take 4 units If the blood sugar is 80-100 take 6 units rather than 8 units If the blood sugar is less than 80 and you are going to eat take 4 units If you have nausea or vomiting and can not eat do not take insulin unless the blood sugars are over 180. C. If you have questions you know how to reach me. I usually go to bed around 9 during the week so I may not be able to answer until the next morning. You could also call your PCP. KEEP MOVING Pending Tests on Discharge: none Allergies/Adverse Reactions: Allergies No Known Allergies Allergy (Verified 03/08/20 05:27) Medications to take at Discharge Valacyclovir HCl [Valtrex] 500 mg PO DAILY PRN PRN 02/12/13 bumetanide 2 mg tablet 2 mg PO BID 11/06/19 cholestyramine (with sugar) 4 gram oral powder 4 g PO TID PRN g 11/06/19 diphenoxylate-atropine 2.5 mg-0.025 mg tablet 2 tab PO .QID PRN tab 11/06/19 methadone 5 mg tablet 5 mg PO BID tab 11/06/19 omeprazole 20 mg tablet,delayed release 20 mg PO DAILY 11/06/19 potassium chloride 10 mEq capsule,extended release 20 meq PO DAILY cap 11/06/19 timolol 0.5 % eye drops 1 drp OPHTHALMIC DAILY 11/06/19 Insulin Glargine [Lantus SoloStar Pen] 30 unit SC DAILY 03/08/20 Atorvastatin Calcium [Lipitor] 40 mg PO QHS 03/11/20 Heparin Pf Lock 10 units/ml 50 units IV UD PRN syringe 03/19/20 Insulin Glargine [Lantus SoloStar Pen] 24 units SC QHS pen 03/19/20 Insulin Lispro [Humalog KwikPen] 8 unit SC 0730,1200,1700 insuln.pen 03/19/20 Lisinopril [Zestril] 2.5 mg PO DAILY #30 tab 03/19/20 Sertraline HCl [Zoloft] 100 mg PO DAILY #30 tab 03/19/20 traZODone [Desyrel] 50 mg PO QHS #30 tab 03/19/20 The following prescriptions were given: traZODone [Desyrel] 50 mg PO QHS #30 tab Transmission Status: Pending to [facility] Lisinopril [Zestril] 2.5 mg PO DAILY #30 tab Transmission Status: Pending to [facility] Sertraline HCl [Zoloft] 100 mg PO DAILY #30 tab Transmission Status: Pending to [facility] Primary Care Physician: Sangeeta Vides MD [Primary Care Provider] - Please follow up with your Primary Care Physician in: Sangeeta Vides MD Test Results: Test results from this visit will be discussed in further detail at your follow-up appointment, if applicable. Please Follow Up With: Clifford Barakat DO (Oncology) When: 2 weeks Please Follow Up With: Dr. Sangeeta Vides-PCP When: Tuesday Proposed Discharge Date: 03/19/20
--- NOTE | 2020-03-19 12:32 | PCM.DC.SUM ---
Discharge Date and Diagnosis Date of Admission: 03/11/20 Date of Discharge: 03/19/20 - Primary Discharge Diagnosis Acute Problems: Physical debility due to multilobar bacterial pneumonia and anasarca Nephrotic syndrome with anasarca - new diagnosis Iron deficiency Anemia requiring transfusion during the acute hospital stay Negative hemoccult stool Suspected Problems: IBS - Secondary Discharge Diagnosis Chronic Problems: Chronic Problems (Last Reviewed 03/12/20 @ 18:[address] Delmy Begum, DO) Nephrotic syndrome (Chronic) Left ventricular hypertrophy (Chronic) Grade I diastolic dysfunction (Chronic) Normochromic normocytic anemia (Chronic) with increased RDW Proteinuria (Chronic) - nephrotic range Glaucoma (Chronic) Neuropathy (Chronic) - hands and feet HTN (hypertension) (Chronic) DM (diabetes mellitus), type 2, uncontrolled with complications (Chronic) Goiter (Chronic) GERD (gastroesophageal reflux disease) (Chronic) Abnormal ECG (Chronic) Anxiety and depression (Chronic) Invasive ductal carcinoma of breast (Chronic) Diagnosed with right breast cancer stage Ia in August 2013. Needle biopsy showed invasive ductal carcinoma which was triple negative. She underwent partial mastectomy with a sentinel node biopsy. The sentinel node biopsy was negative. She developed lung nodules in October 2016 and a right axillary mass. She had right axillary lymphadenectomy on December 24, 2016 and 1 out of 7 lymph nodes was positive with metastatic poorly differentiated carcinoma, triple negative. She also has metastatic pulmonary nodules. She is currently being managed by Dr. Clifford Barakat. Hyperlipidemia (Chronic) Hypomagnesemia (Chronic) Hospital Course and Treatment Imaging Results: Clinical Impression(s) from Imaging Studies Chest X-Ray 03/12/20 17:38 IMPRESSION: Mild right greater left pulmonary infiltrates. Trace right effusion. Cardiomegaly. Electronically Signed: Adán Hartmann, at 19:53 EST Tel , Service support , Laboratory Last Values WBC 8.3 K/mm3 (4.4-11.0) 03/19/20 05:33 RBC 3.11 M/mm3 (4.2-5.4) L 03/19/20 05:33 Hgb 9.0 g/dL (12.0-15.0) L 03/19/20 05:33 Hct 29.4 % (37-47) L 03/19/20 05:33 MCV 94.5 fL (81-99) 03/19/20 05:33 MCH 28.9 pg (27.0-32.0) 03/19/20 05:33 MCHC 30.6 g/dL (32-36) L 03/19/20 05:33 RDW Std Deviation 45.8 fl (35.1-43.9) H 03/19/20 05:33 RDW Coeff of Cori 13.2 % (11.6-14.6) 03/19/20 05:33 Plt Count 472 K/mm3 (150-450) H 03/19/20 05:33 MPV 8.4 fl (6.2-12.0) 03/19/20 05:33 Sodium 135 mmol/L (136-145) L 03/19/20 05:33 Potassium 3.7 mmol/L (3.5-5.1) 03/19/20 05:33 Chloride 98 mmol/L (98-107) 03/19/20 05:33 Carbon Dioxide 33.0 mmol/L (21.0-32.0) H 03/19/20 05:33 Anion Gap 4 (5-15) L 03/19/20 05:33 BUN 35 mg/dL (7-18) H 03/19/20 05:33 Creatinine 1.05 mg/dL (0.55-1.02) H 03/19/20 05:33 Estim Creat Clear Calc 62.33 ml/min 03/19/20 05:33 Est GFR (MDRD) Af Amer 71 mL/min (>60) 03/19/20 05:33 Est GFR (MDRD) Non-Af 59 mL/min (>60) L 03/19/20 05:33 BUN/Creatinine Ratio 33.3 RATIO (10-20) H 03/19/20 05:33 Glucose 150 mg/dL (74-106) H 03/19/20 05:33 Hemoglobin A1c 9.7 % (3.8-5.6) H 03/13/20 07:17 Calcium 8.7 mg/dL (8.5-10.1) 03/19/20 05:33 Magnesium 1.8 mg/dL (1.6-2.6) 11/30/20 05:46 Iron 16 ug/dL (50-170) L 03/13/20 07:17 TIBC 161 ug/dL (250-450) L 03/13/20 07:17 Iron Saturation 9.9 % (15.0-55.0) L 03/13/20 07:17 B-Natriuretic Peptide 197.4 pg/mL (0-100) H 03/13/20 07:17 Urine Collection Time 24.0 HOURS (24.0) 03/13/20 16:45 Timed Urine Volume 2675 mL 03/13/20 16:45 Ur Total Protein 24 Hr 4790.9 mg/24HR (<150 MG/24HR) H 03/13/20 16:45 Urine Total Protein 179.1 mg/dL (<11.9) H 03/13/20 16:45 POC Glucose 176 mg/dL (70-110) H 03/19/20 10:50 Microbiology 03/12/20 13:30 Stool Stool Occult Blood (SHAY) - Final Negative none Operations: None, - - 12/30/13 Muscle Biopsy Procedures: None Summary of Care Provided: Anitra Wilcox is a 49 year old -Italian female with a past medical history of diabetes mellitus type 2, essential hypertension, mild left ventricular hypertrophy, chronic normochromic normocytic anemia, tobacco dependence in remission, grade 1 diastolic dysfunction, peripheral neuropathy, proteinuria, GERD, goiter, triple negative invasive ductal carcinoma with mets to the lungs initially diagnosed in 2013, GERD, anxiety/depression, hyperlipidemia and chronic hypomagnesemia who presented to the emergency department at [facility] on 03/08/2020 complaining of shortness of breath that had been increasing over the previous few weeks new fever which was 103 ?F upon arrival in the emergency department. She additionally complained of associated chills and nausea. Portable chest x-ray was interpreted as multifocal pneumonia. Covid antigen was negative. The white blood cell count was 4.9, hemoglobin was 8.2 and platelets were 269,000. Electrolytes were unremarkable and the BUN was 26 with a creatinine of 0.95. Lactic acid level was 1.5. Magnesium was low at 1.2 and LFTs were unremarkable. Procalcitonin was elevated at 0.15. A CT scan of the chest showed no pulmonary emboli but did show right middle lobe and right upper lobe airspace consolidation and multiple bilateral pulmonary nodules. She was admitted to the hospital and started on intravenous vancomycin and Zosyn. The following morning she was feeling better. She continued to c/o PAGE and orthopnea which she had started with a few weeks prior to presenting to the ED. She was started on Supplemental oxygen. Nasal MRSA was negative. Legionella and streptococcal antigens in the urine were negative. Respiratory panel was negative. Blood cultures had no growth in 48 hours. Her hemoglobin dropped to 6.7 on 03/09/2020 and she was transfused with 2 units of packed red blood cells. Ferritin was drawn prior to the transfusion and was 1002. She continued to improve and was transferred to the inpatient acute rehab unit on 03/11/2020 for physical debility secondary to multifocal pneumonia/sepsis. On physical examination at presentation to the rehab unit she had a few coarse crackles anteriorly on the right and diminished breath sounds in the right base. There was no wheezing. The heart had a regular rate and rhythm with a resting heart rate in the high 90s. She had no murmurs and no gallop. There was pitting edema present in the flanks bilaterally and also pitting edema in the lower abdominal wall and in both legs from the groin to the toes. She also had edema in her face. she has chronic edema of the RUE due to lymphedema. She had generalized weakness and was using a FWW to ambulate. She was tachypneic with ambulation and when lying down. Her wt at presentation to rehab was as high as 236 lbs. The wt at presentation to the ED was 216 lbs. She was converted from Bumex 2 mg PO BID to IV Bumex 2 mg BID and she was gently diuresed. Oral Bumex was restarted on 03/17/20. Her weight on the day of DC is 210. She denied orthopnea and PAGE at the time of DC and edema was limited to the distal LE's to approximately the lower 1/3 of the calf. She had no flank edema and no edema of the posterior thighs. She had a serum iron and TIBC while in rehab and despite recently receiving 2 units of PRBC's the Serum iron was low at 16 and the TIBC was low at 61. Iron saturation was 9.9% which is deficient. I talked with Dr. Barakat and approved IV supplementation while in rehab because she gets frequent nausea and likely would not tolerate PO iron. She received 400 mg of iron sucrose over 48 hours and tolerated it well. A 24 Hour urine was done for quantitative protein and she had 4791 mg of protein in a 24 hour period and she was diagnosed with nephrotic S. The hemoglobin at discharge was 9.6, up from 8.9 on 03/10/2020. On the day of discharge the sodium was 135 and the serum bicarb was 33. BUN was 35 and the creatinine was 1.05. Fluid balance on 03/18/2020 was -155. She has been on a 2 GM sodium diet and 1200 cc daily fluid restriction. The wt went up 2 lbs on the day of DC. Anitra did well in therapy and was walking 115 feet with a wheeled walker at a slow steady gait. She did this 3 times and required no rest breaks in between. She was independent with all ADL's. She is going to continue PT/OT at [facility] post discharge. She will follow up in [address] Barakat to restart chemotherapy. She elected to follow up with Dr. Law going forward and she will call for an appt. Alert and oriented X 3, NAD, appropriate, cooperative PERRL, EOMI. the edema in the face at admission to the rehab unit has resolved MM are dry and there are no mucosal lesions The neck is supple and the trachea is midline, there are no cervical nodes palpated Lungs are clear to auscultation. She is not tachypneic at rest. Heart has a RRR with no gallop and no rub. Resting heart rate is in the 80s since she has been diuresed. Abdomen is soft, NT, ND and there are normal bowel sounds heard in all quadrants. There was no guarding with palpation CN's II - XII are grossly intact and she has no focal neurologic deficits. She does have neuropathy in her hands and her feet. This is likely due to longstanding diabetes plus chemotherapy There is peripheral edema which is pitting to about 6 inches above the ankle. The LLE has more edema than the R. There is no pitting edema of the flanks, the lower abd wall or the thighs. No calf tenderness Skin is warm and dry, no rashes, no breakdown. Mood is good and she is upbeat This note was generated with [employer] software. It may contain incorrect words, spelling, and punctuation that were not noted in checking the note before signing. - Physical Exam Vitals/I&O's: Vital Signs Temp Pulse Resp BP Pulse Ox 98.6 F 80 16 132/63 H 96 03/19/20 07:44 03/19/20 07:44 03/19/20 07:44 03/19/20 07:44 03/19/20 07:44 Oxygen Flow Rate (L/min) 2 Oxygen Delivery Method Room Air Weight: 210 lb 12.191 oz Body Mass Index (BMI) 36.3 Finger Stick Blood Glucose 156 Intake and Output for Last 24 Hours 03/17/20 03/18/20 03/19/20 23:59 23:59 23:59 Intake Total 1120 / 1120 970 / 970 540 / 540 Output Total 2450 / 2450 1125 / 1125 1000 / 1000 Balance -1330 / -1330 -155 / -155 -460 / -460 Laboratory Results 03/18/20 17:14: POC Glucose 166 H 03/18/20 21:14: POC Glucose 179 H 03/19/20 05:33: WBC 8.3, RBC 3.11 L, Hgb 9.0 L, Hct 29.4 L, MCV 94.5, MCH 28.9, MCHC 30.6 L, RDW Std Deviation 45.8 H, RDW Coeff of Cori 13.2, Plt Count 472 H, MPV 8.4 03/19/20 05:33: Sodium 135 L, Potassium 3.7, Chloride 98, Carbon Dioxide 33.0 H, Anion Gap 4 L, BUN 35 H, Creatinine 1.05 H, Estim Creat Clear Calc 62.33, Est GFR (MDRD) Af Amer 71, Est GFR (MDRD) Non-Af 59 L, BUN/Creatinine Ratio 33.3 H, Glucose 150 H, Calcium 8.7 03/19/20 06:25: POC Glucose 134 H 03/19/20 10:50: POC Glucose 176 H Current Medications Acyclovir (Acyclovir 200 Mg Capsule) 400 mg PO DAILY PRN PRN PRN Reason: HERPES Atorvastatin Calcium (Atorvastatin Calcium 40 Mg Tablet) 40 mg PO QHS [facility] Last Admin: 03/18/20 21:20 Dose: 40 mg Documented by: Bisacodyl (Bisacodyl 10 Mg Suppository) 10 mg RECTAL .PRN X 1 PRN PRN Reason: Constipation Bumetanide (Bumetanide 2 Mg Tablet) 2 mg PO BIDLX [facility] Last Admin: 03/19/20 07:47 Dose: 2 mg Documented by: Cholestyramine Resin (Cholestyramine/Sucrose 4 Gm/Packet) 4 gm PO TID PRN PRN PRN Reason: Diarrhea Diphenoxylate HCl/Atropine (Diphenoxylate/Atrop 1 Tablet) 1 - 2 tablet PO Q6H PRN PRN PRN Reason: Diarrhea Last Admin: 03/18/20 11:34 Dose: 2 tablet Documented by: Emollient Ointment (Emollient Combination No.[id number] 500 Ml Lotion) 1 applic TOPICAL BID@0800,2200 [facility]; Protocol Last Admin: 03/19/20 07:55 Dose: Not Given Documented by: Enoxaparin Sodium (Enoxaparin 40 Mg/0.4 Ml Syringe) 40 mg SC DAILY [facility] Last Admin: 03/19/20 07:47 Dose: 40 mg Documented by: Heparin Sodium (Beef Lung) (Heparin Pf Lock 10 Units/Ml 50 Units/5 Ml Syringe) 50 units IV UD PRN PRN Reason: Port-a-Cath (VAD)Heparin Flush Insulin Glargine (Insulin Glargine 100 Units/Ml Pen) 24 units SC QHS [facility] Last Admin: 03/18/20 21:21 Dose: 24 u Documented by: Insulin Human Lispro (Insulin Lispro 100 Unit/Ml Insuln.Pen) 8 unit SC 0730,1200,1700 [facility] Last Admin: 03/19/20 12:13 Dose: 8 u Documented by: Lisinopril (Lisinopril 2.5 Mg Tablet) 2.5 mg PO DAILY [facility] Last Admin: 03/19/20 07:47 Dose: 2.5 mg Documented by: Magnesium Hydroxide (Magnesium Hydroxide 30 Ml Udc) 30 ml PO .PRN X 1 PRN PRN Reason: Constipation Methadone HCl (Methadone 5 Mg Tablet) 5 mg PO BID [facility] Last Admin: 03/19/20 07:48 Dose: Not Given Documented by: Ondansetron HCl (Ondansetron Odt 4 Mg Tablet) 4 mg PO Q6H PRN PRN PRN Reason: NAUSEA/VOMITING Pantoprazole Sodium (Pantoprazole Sodium 20 Mg Tablet) 20 mg PO DAILY [facility] Last Admin: 03/19/20 07:47 Dose: 20 mg Documented by: Potassium Chloride (Potassium Chloride 20 Meq Tablet) 20 meq PO DAILYCM [facility] Last Admin: 03/19/20 07:47 Dose: 20 meq Documented by: Senna/Docusate Sodium (Senna/Docusate Sodium 1 Tablet) 2 tablet PO BID [facility] Last Admin: 03/19/20 07:48 Dose: Not Given Documented by: Sertraline HCl (Sertraline 100 Mg Tablet) 100 mg PO DAILY [facility] Last Admin: 03/19/20 07:47 Dose: 100 mg Documented by: Sodium Chloride (0.9% Saline Lock 10 Ml Syringe) 10 - 40 ml IV UD PRN PRN Reason: Port-a-Cath (VAD) Flush Last Admin: 03/19/20 10:38 Dose: 10 ml Documented by: Sodium Chloride (0.9 % Nacl (Sterile) Posiflush 10 Ml) 10 - 40 ml IV UD PRN PRN Reason: Port access or dressing change Timolol Maleate (Timolol 0.5% 5ml Opth.Btl) 1 drop EACH EYE DAILY [facility] Last Admin: 03/19/20 07:48 Dose: 1 drop Documented by: Trazodone HCl (Trazodone 50 Mg Tablet) 50 mg PO QHS [facility] Last Admin: 03/18/20 21:20 Dose: Not Given Documented by: Discharge Activity: Return to Normal Activity, May Drive, Use Walker - when needed Weight Bearing Status: Full weight bearing Keep extremity elevated above heart level: Legs - Elevate your legs anytime you are sitting. Apply the leg wraps when you get out of bed in the AM and renove at night. It may help even to lay down in bed with your legs on pillows for 30-60 minutes 1-2 times a day to help keep the swelling down. Additional Activity Instructions:: Keep moving. Don't sit for more than 60 - 90 minutes without getting up and taking a walk around the house. If ya don't keep moving and doing some exercises you will lose strength and flexibility. Call your doctor if you observe: Fever of 101 or Higher, Inability to urinate, Inability to have a bowel movement, Shortness of breath, Dizziness, Fainting spells, Swelling in the ankles - Your ankles may always swell BUT if the swelling is increasing to the knee or if your weight is increasing then call someone for advice, Chest pain, Increased palpitations (irregular heartbeat), Calf discomfort, Uncontrolled pain Home Medications: Medications to take at Discharge Valacyclovir HCl [Valtrex] 500 mg PO DAILY PRN PRN 02/12/13 bumetanide 2 mg tablet 2 mg PO BID 11/06/19 cholestyramine (with sugar) 4 gram oral powder 4 g PO TID PRN g 11/06/19 diphenoxylate-atropine 2.5 mg-0.025 mg tablet 2 tab PO .QID PRN tab 11/06/19 methadone 5 mg tablet 5 mg PO BID tab 11/06/19 omeprazole 20 mg tablet,delayed release 20 mg PO DAILY 11/06/19 potassium chloride 10 mEq capsule,extended release 20 meq PO DAILY cap 11/06/19 timolol 0.5 % eye drops 1 drp OPHTHALMIC DAILY 11/06/19 Insulin Glargine [Lantus SoloStar Pen] 30 unit SC DAILY 03/08/20 Atorvastatin Calcium [Lipitor] 40 mg PO QHS 03/11/20 Heparin Pf Lock 10 units/ml 50 units IV UD PRN syringe 03/19/20 Insulin Glargine [Lantus SoloStar Pen] 24 units SC QHS pen 03/19/20 Insulin Lispro [Humalog KwikPen] 8 unit SC 0730,1200,1700 insuln.pen 03/19/20 Lisinopril [Zestril] 2.5 mg PO DAILY #30 tab 03/19/20 Sertraline HCl [Zoloft] 100 mg PO DAILY #30 tab 03/19/20 traZODone [Desyrel] 50 mg PO QHS #30 tab 03/19/20 Following Prescriptions Were Given to Patient: traZODone [Desyrel] 50 mg PO QHS #30 tab Transmission Status: Pending to [facility] Lisinopril [Zestril] 2.5 mg PO DAILY #30 tab Transmission Status: Pending to [facility] Sertraline HCl [Zoloft] 100 mg PO DAILY #30 tab Transmission Status: Pending to [facility] Primary Care Physician: Sangeeta Vides MD [Primary Care Provider] - Please follow up with your Primary Care Physician in: Sangeeta iVdes MD Please Follow Up With: Clifford Barakat DO (Oncology) When: 2 weeks Please Follow Up With: Dr. Sangeeta Vides-PCP When: Tuesday Patient Instructions: Tips for Using Less Salt, Low-Salt Choices, What Is IBS?, Diet and Lifestyle Tips for IBS, Eating a Low-Salt Diet, ED Nephrotic Syndrome (Child) Disposition: Home - with OP PT/OT at [facility] Minutes spent on discharge:: 40 Patient Condition:: Good Medical Necessity - Tobacco Use Smoking Status: Former smoker Tobacco Use: Cigarettes Meaningful Use Info Meaningful Use Diagnoses (Choose all that apply): None applicable Inpatient E&M: 83783 Disch Hosp
[2020-03-19] MEDS: Diphenoxylate/Atrop 1 Tablet PO (14:38)
[2020-03-19 14:43] VITALS: BP 145/73; PULSE 76; RESP 16; TEMP 36.7; O2SAT 95
--- NOTE | 2020-03-19 14:45 | NURSING ---
Discharge home with . Discharge medication, instructions and appointments reviewed with pt and . Denies questions or concerns
--- NOTE | 2020-03-19 15:31 | NURSING ---
Discharged home with spouse. Discharge medication, instructions and appointments reviewed with pt. Denies questions or concerns.
== END 2020-03-19 15:32 | disposition home or self-care (01) | DRG 195 ==
PROVIDERS: Admitting Provider Internal Medicine; PCP Internal Medicine; Visit Provider Internal Medicine
DX: J15.9 Unspecified bacterial pneumonia (principal); E11.42 Type 2 diabetes mellitus with diabetic polyneuropathy; I50.9 Heart failure, unspecified; I11.0 Hypertensive heart disease with heart failure; K21.9 Gastro-esophageal reflux disease without esophagitis; E04.9 Nontoxic goiter, unspecified; E78.5 Hyperlipidemia, unspecified; E11.65 Type 2 diabetes mellitus with hyperglycemia; D50.9 Iron deficiency anemia, unspecified; K58.9 Irritable bowel syndrome, unspecified; F32.9 Major depressive disorder, single episode, unspecified; F41.9 Anxiety disorder, unspecified; E11.21 Type 2 diabetes mellitus with diabetic nephropathy; Z85.3 Personal history of malignant neoplasm of breast; Z87.891 Personal history of nicotine dependence
CPT/HCPCS: 36415; 71046; 80048; 81050; 82274; 82962; 83036; 83540; 83550; 83735; 83880; 84156; 85014; 85018; 85027; 97110; 97116; 97162; 97166; 97530; 97535; 97802; 97803; J7050; A4216; J2916

== ENCOUNTER → 2020-03-31 10:00 | Outpatient (CLI) | payer OTHER, SELFPAY ==
[2020-03-25 08:24] VITALS: BMI 31.9
[2020-03-31 12:00] LABS: Anion Gap 6 (5-15); BUN 42 mg/dL (7-18); BUN/Creat Ratio 45.9 RATIO (10-20); Calcium,Total 9.1 mg/dL (8.5-10.1); Chloride 102 mmol/L (98-107); Creatinine, Serum 0.92 mg/dL (0.55-1.02); EST Glomerular Filtration Rate 69 mL/min (>60); Est Glom Filt Rate - Afr Amer 83 mL/min (>60); Glucose 149 mg/dL (74-106); Potassium 4.5 mmol/L (3.5-5.1); Sodium Level 140 mmol/L (136-145)
== END ==
PROVIDERS: PCP Internal Medicine; Referring Provider Internal Medicine; Visit Provider Internal Medicine
DX: I10 Essential (primary) hypertension (principal); E11.21 Type 2 diabetes mellitus with diabetic nephropathy
CPT/HCPCS: 36415; 80048

== ENCOUNTER 2020-06-02 05:18 | Observation (INO) | payer OTHER, SELFPAY ==
[2020-04-25 08:50] VITALS: BMI 32.2
[2020-06-02] VITALS (11 sets, daily range): BP systolic 95–160; BP diastolic 47–104; PULSE 98–124; RESP 16–23; TEMP 37.1–37.7; O2SAT 94–100; BMI 34.9; BMI 34.2
--- NOTE | 2020-06-02 05:19 | RAD_ITS ---
HISTORY: feveron chemo for stage 4 breast ca ADDITIONAL HISTORY: None provided. EXAMINATION/TECHNIQUE: XR Chest 1 View AP/PA Number of images including paperwork: 1 COMPARISON: 03/12/2020 FINDINGS: LUNGS AND PLEURA: Right upper lobe airspace opacity appears similar. Mild decrease in bibasilar opacities. CARDIAC SILHOUETTE: Unremarkable. MEDIASTINUM AND ALEJANDRINA: Unremarkable. UPPER ABDOMEN: Unremarkable. SKELETON AND SOFT TISSUES: No acute skeletal findings. Degenerative changes. OTHER DEVICES AND HARDWARE: Unchanged left chest power port with tip near the cavoatrial junction. RAD/Chest 1 View (Portable) IMPRESSION: Right upper lobe residual or recurrent infiltrate. at [id number] Reported and signed by: Estrella Sharma MD Electronically Signed: Estrella Sharma MD at 6:57 EST Tel , Service support ,
[2020-06-02 06:09] LABS: Absolute Lymphocyte Count 0.75 X10^3/uL (0.83-4.51); Absolute Neutrophil Count 14.3 X10^3/uL (2.0-7.7); Basophil# 0.03 X10^3/uL; Basophil% 0.2 % (0-1); Eosinophil# 0.08 X10^3/uL; Eosinophils% 0.5 % (0-5); Hematocrit 25.5 % (37-47); Lymphocyte # 0.75 X10^3/ul (4.0); Lymphocyte % 4.8 % (19-41); Mean Corp Hgb Conc 31.4 g/dL (32-36); Mean Corpuscular Hgb 30.3 pg (27.0-32.0); Mean Corpuscular Volume 96.6 fL (81-99); Mean Platelet Vol. 9.5 fl (6.2-12.0); Monocyte% 2.6 % (0-10); NRBC Flagged by Analyzer 0 % (0-5); Neutrophil # 14.34 X10^3/uL (2.7-7.7); Neutrophil % 91.4 % (47-70); Platelet Count 287 K/mm3 (150-450); RBC Distribution Width CV 15.9 % (11.6-14.6); RBC Distribution Width SD 55.8 fl (35.1-43.9); Red Blood Count 2.64 M/mm3 (4.2-5.4); White Blood Count 15.7 K/mm3 (4.4-11.0)
[2020-06-02 06:26] LABS: ALB/GLOB Ratio 0.8 RATIO (0.9-2.4); AST(SGOT) 10 U/L (15-37); Alanine Aminotransfer ALT/SGPT 21 U/L (13-56); Albumin, Serum 2.8 g/dL (3.2-5.0); Alkaline Phosphatase 137 U/L (45-117); Anion Gap 5 (5-15); BUN 34 mg/dL (7-18); BUN/Creat Ratio 43.4 RATIO (10-20); Calcium,Total 8.7 mg/dL (8.5-10.1); Chloride 103 mmol/L (98-107); Creatinine, Serum 0.78 mg/dL (0.55-1.02); EST Glomerular Filtration Rate 82 mL/min (>60); Est Glom Filt Rate - Afr Amer 100 mL/min (>60); Estimated Creatinine Clearance 82.98 ml/min; Globulin 3.6 g/dL (2.2-4.2); Glucose 220 mg/dL (74-106); Potassium 4.6 mmol/L (3.5-5.1); Protein, Total 6.4 g/dL (6.4-8.2); Sodium Level 137 mmol/L (136-145)
[2020-06-02] MEDS: 0.9% Normal Saline 1,000 ML 150 ML IV (06:29)
--- NOTE | 2020-06-02 06:32 | ED.DCSUM_ITS ---
- ER Visit Summary Date of Service: 06/02/20 Chief Complaint: [Fever] History of Present Illness: The patient is a 50 F [presents to the emergency department with complaint of a fever that started around 4 AM. Patient states that she woke up and felt chilled and took her temperature and noted that it was 101.4. Patient called her oncologist who referred her to the emergency department. Patient currently being treated for breast cancer and her last chemotherapy was 2 weeks ago. Patient denies cough or sore throat. She denies Covid exposures. She denies urinary symptoms. She denies abdominal pain. She is had no vomiting or diarrhea. Patient does have history of diabetes and hypertension.] Physical Examination: [HEENT-PERRLA, EOMI. Cranial nerves II through XII grossly intact. TMs clear. Mucous membranes moist. No adenopathy. Cardiovascular-regular rate and rhythm without murmur or ectopy Lungs-clear to auscultation, chest wall stable without crepitus or subcu emphysema Abdomen-normoactive bowel sounds, soft, nontender, no rebound or rigidity, no peritoneal signs. Extremities-intact ?4, normal range of motion, normal pulses, atraumatic] Test Results: [Blood cultures ordered. CBC with differential obtained showed an elevated white blood cell count of 15.7, hemoglobin 8, hematocrit 25, platelets 287. Chemistries unremarkable. Glucose of 220. LFTs unremarkable other than a slightly elevated alkaline phosphatase of 137.] Urinalysis obtained was normal. Lactate was 1.6. Chest x-ray 1 view obtained interpreted by myself as increased markings in the right upper and lower lobes which appear to be chronic findings. Radiology read x-rays as right upper lobe residual or recurrent infiltrate. Emergency Department Course and Treatment: [IV line established on arrival. Patient was started on cefepime 2 g IV.] Treatment Plan: [Admit] Disposition: [Admit] Impression: [Fever of unknown origin Sepsis] This note was generated with [employer] dictation software. It may contain incorrect words, spelling, and punctuation that were not noted in review of the chart prior to signing ED Disposition - Plan for ED Patient: Referrals: Joe Law MD [Primary Care Provider] -
[2020-06-02 06:35] LABS: Bacteria 0 SEEN /hpf (None Seen); Color, Urine Yellow (Yellow); Glucose, Dipstick 1000 mg/dl (Normal); Ketone-Dipstick Negative (Negative); Leukocyte Esterase-Dipstick Negative /ul (Negative); Mucous, Urine 0 SEEN /hpf (<or=2+); Nitrite-Dipstick Negative (Negative); Occult Blood-Urine 10 /ul (Negative); Protein-Dipstick 500 mg/dl (Negative); Urine Bilirubin Dipstick Negative (Negative); Urine Clarity Clear (Clear); Urine Urobilinogen Normal (Normal); White Blood Cells 0 SEEN /hpf (0-5)
[2020-06-02 06:41] LABS: Red Blood Cells-Urine 0-5 SEEN /hpf (0-5); Squamous Epithelial Cells - UA 0-5 SEEN /hpf (5-10)
[2020-06-02 06:44] LABS: Lactic Acid 1.6 mmol/L (0.4-1.9)
--- NOTE | 2020-06-02 10:32 | HP.PCM_ITS ---
<Vonnie Chao PROPERTY INSPECTOR - Last Filed: 06/02/20 11:06> Problem List (1) Hyperlipemia Status: Chronic (2) Hypertension Status: Chronic (3) IBS (irritable bowel syndrome) Status: Suspected (4) Iron deficiency Status: Chronic (5) Bilateral pneumonia Status: Resolved Comment: bacterial RUL and RML (6) Nephrotic syndrome Status: Chronic (7) Left ventricular hypertrophy Status: Chronic (8) Grade I diastolic dysfunction Status: Chronic (9) Normochromic normocytic anemia Status: Chronic (10) Proteinuria Status: Chronic (11) Glaucoma Status: Chronic (12) Neuropathy Status: Chronic (13) DM (diabetes mellitus), type 2, uncontrolled with complications Status: Chronic (14) Goiter Status: Chronic (15) GERD (gastroesophageal reflux disease) Status: Chronic (16) Abnormal ECG Status: Chronic (17) Anxiety and depression Status: Chronic (18) Invasive ductal carcinoma of breast Status: Chronic Comment: Diagnosed with right breast cancer stage Ia in August 2013. Needle biopsy showed invasive ductal carcinoma which was triple negative. She underwent partial mastectomy with a sentinel node biopsy. The sentinel node biopsy was negative. She developed lung nodules in October 2016 and a right axillary mass. She had right axillary lymphadenectomy on December 24, 2016 and 1 out of 7 lymph nodes was positive with metastatic poorly differentiated carcin narendra, triple negative. She also has metastatic pulmonary nodules. She is currently being managed by Dr. Clifford Barakat. (19) Hypomagnesemia Status: Chronic History of Present Illness Date of Admission: 06/02/20 Chief Complaint: Fever. The patient is a 50 year old F who presents to the Emergency Room due to fever. Patient states she woke up around 4 AM this morning and temperature was noted to be 101.4. She states overnight she had significant acid reflux and woke up coughing. She is concerned she may have aspirated. She denies ongoing cough. Denies shortness of breath. Denies URI symptoms. Denies GI/ symptoms. Patient is undergoing chemotherapy for breast cancer with last treatment 2 weeks ago. She does state she has had fever a few weeks out from treatment in the past. She denies exposure to sick contacts. Denies loss of taste and smell. She has a past medical history of stage IV invasive ductal carcinoma with mets to lung, chronic pain syndrome, type 2 diabetes mellitus, hypertension, hyperlipidemia, chronic normocytic anemia, GERD. Past Medical History Past Medical History (Chronic Problems): Chronic Problems (Last Updated 03/25/20 @ 08:32 by Selam Hampton) Hyperlipemia (Chronic) Hypertension (Chronic) Iron deficiency (Chronic) Nephrotic syndrome (Chronic) Left ventricular hypertrophy (Chronic) Grade I diastolic dysfunction (Chronic) Normochromic normocytic anemia (Chronic) Proteinuria (Chronic) Glaucoma (Chronic) Neuropathy (Chronic) DM (diabetes mellitus), type 2, uncontrolled with complications (Chronic) Goiter (Chronic) GERD (gastroesophageal reflux disease) (Chronic) Abnormal ECG (Chronic) Anxiety and depression (Chronic) Invasive ductal carcinoma of breast (Chronic) Diagnosed with right breast cancer stage Ia in August 2013. Needle biopsy showed invasive ductal carcinoma which was triple negative. She underwent partial mastectomy with a sentinel node biopsy. The sentinel node biopsy was negative. She developed lung nodules in October 2016 and a right axillary mass. She had right axillary lymphadenectomy on December 24, 2016 and 1 out of 7 lymph nodes was positive with metastatic poorly differentiated carcinoma, triple negative. She also has metastatic pulmonary nodules. She is currently being managed by Dr. Clifford Barakat. Hypomagnesemia (Chronic) Medical History: Medical History (Last Updated 03/25/20 @ 08:32 by Selam Hampton) Hyperlipemia (Chronic) E78.5 Hypertension (Chronic) I10 Neuropathy (Chronic) G62.9 Morven node September 2016 [address] Ruiz at [facility] Allergies No Known Allergies Allergy (Verified 06/02/20 05:27) Home Medications: Ambulatory Orders Medication Instructions Recorded Valacyclovir HCl [Valtrex] 500 mg PO DAILY PRN PRN 02/12/13 bumetanide 2 mg tablet 3 mg PO BID 11/06/19 cholestyramine (with sugar) 4 gram 4 g PO TID PRN g 11/06/19 oral powder diphenoxylate-atropine 2.5 2 tab PO .QID PRN tab 11/06/19 mg-0.025 mg tablet methadone 5 mg tablet 5 mg PO BID tab 11/06/19 omeprazole 20 mg tablet,delayed 20 mg PO DAILY 11/06/19 release potassium chloride 10 mEq 20 meq PO DAILY cap 11/06/19 capsule,extended release timolol 0.5 % eye drops 2 drp OPHTHALMIC DAILY 11/06/19 Atorvastatin Calcium [Lipitor] 40 mg PO QHS 03/11/20 sertraline 100 mg tablet 100 mg PO DAILY #90 tab 03/25/20 insulin glargine 100 unit/mL (3 30 unit SC QHS 90 Days #27 ml 04/25/20 mL) subcutaneous pen insulin lispro 100 unit/mL 10 unit SC TID 90 Days #27 ml 04/25/20 subcutaneous pen losartan 50 mg tablet 50 mg PO DAILY #90 tab 04/25/20 Surgical History: Surgical History (Last Updated 11/06/19 @ 09:57 by Selam Swenson) History of hysterectomy Z90.710 2005 History of lumpectomy of right breast Z98.890 2014 Surgical History: cataract, hysterectomy, - - Breast lumpectomy, IV port for chemo, lymphadenectomy right axilla, Psychiatric History: Anxiety, Depression 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 Lives: Spouse/ Significant Other Smoking Status: Former smoker Tobacco Use: Non-smoker Alcohol: None Drugs: None - *Family History Sibling Family History: Family History (Last Reviewed 06/02/20 @ 10:50 by Vonnie Chao NP, PROPERTY INSPECTOR-C) Mother Breast cancer Diabetes Aunt Skin cancer Father Heart disease Hypertension Brother Asthma Grandmother Colon cancer History Items: Pulmonary Disease Maternal Family History: Family History (Last Reviewed 06/02/20 @ 10:50 by Vonnie Chao NP, PROPERTY INSPECTOR-C) Mother Breast cancer Diabetes Aunt Skin cancer Father Heart disease Hypertension Brother Asthma Grandmother Colon cancer History Items: Cancer - Breast Paternal Family History: Family History (Last Reviewed 06/02/20 @ 10:50 by Vonnie Chao NP, PROPERTY INSPECTOR-C) Mother Breast cancer Diabetes Aunt Skin cancer Father Heart disease Hypertension Brother Asthma Grandmother Colon cancer History Items: Diabetes, High Cholesterol Review of Systems Constitutional: Reports: Chills, Fever HEENT: Denies: Head Aches, Sinus Congestion, Sinus Drainage Cardiovascular: Denies: Chest Pain, Palpitations Respiratory: Denies: Cough, Shortness of breath at rest, Sputum production Gastrointestinal: Denies: Abdominal Pain, Nausea, Vomiting Genitourinary: Denies: Dysuria Musculoskeletal: Denies: Joint Pain, Joint Tenderness Skin: Denies: Rash, Wounds Neurological: Denies: Numbness, Tingling, Focal weakness Psychiatric: Denies: Anxiety, Depression, Homicidal Ideations, Suicidal Ideation s Hematologic/ Lymphatic: Denies: Easy Bruising, Easy Bleeding VTE Information - Inpt Only VTE Present on Admission: No VTE Mechan Device Prophylaxis: None VTE Pharm Prophylaxis ordered?: Yes Patient Problems: Active and Suspected Problems (Last Updated 03/25/20 @ 08:32 by Selam Hampton) IBS (irritable bowel syndrome) (Suspected) - Physical Exam Vitals/I&O's: Vital Signs Temp Pulse Resp BP Pulse Ox 99.1 F 112 H 21 H 113/85 H 99 06/02/20 07:27 06/02/20 09:08 06/02/20 09:08 06/02/20 07:27 06/02/20 06:47 Oxygen Delivery Method Room Air Weight: 223 lb 5.252 oz Body Mass Index (BMI) 34.9 Finger Stick Blood Glucose 156 Intake and Output for Last 24 Hours 05/31/20 06/01/20 06/02/20 23:59 23:59 23:59 Intake Total 100 / 100 Balance 100 / 100 General: Alert, Oriented x3, Cooperative HEENT: Atraumatic, PERRLA, EOMI, Normocephalic Neck: Supple, No JVD, Negative Carotid Bruits Lungs: Clear to auscultation, Diminished Cardiovascular: Regular rate, No murmurs Abdomen: Bowel Sounds Present, Soft, Non Tender, Non-Distended Extremities: No clubbing, No cyanosis, No edema, Capillary Refill Less than 3 Seconds Skin: No rashes, No breakdown Musculoskeletal: No Tenderness to Palpation of Joints or Extremities Neurological: Cranial nerves II-XII grossly intact, Neuro grossly intact Psych/Mental Status: Normal Affect, Appropriate Microbiology Past 72 Hours 06/02/20 05:55 Mucosa - Nose SARS-CoV-2 Antigen (Rapid) - Final Laboratory Results 06/02/20 05:55: WBC 15.7 H, RBC 2.64 L, Hgb 8.0 L, Hct 25.5 L, MCV 96.6, MCH 30.3, MCHC 31.4 L, RDW Std Deviation 55.8 H, RDW Coeff of Cori 15.9 H, Plt Count 287, MPV 9.5, Immature Gran % (Auto) 0.500, Neut % (Auto) 91.4 H, Lymph % (Auto) 4.8 L, [place] % (Auto) 2.6, Eos % (Auto) 0.5, Baso % (Auto) 0.2, Absolute Neuts (auto) 14.3 H, Absolute Lymphs (auto) 0.75 L, Nucleated RBC % 0 06/02/20 05:55: Sodium 137, Potassium 4.6, Chloride 103, Carbon Dioxide 29.0, Anion Gap 5, BUN 34 H, Creatinine 0.78, Estim Creat Clear Calc 82.98, Est GFR (MDRD) Af Amer 100, Est GFR (MDRD) Non-Af 82, BUN/Creatinine Ratio 43.4 H, Glucose 220 H, Calcium 8.7, Total Bilirubin 0.30, AST 10 L, ALT 21, Alkaline Phosphatase 137 H, Total Protein 6.4, Albumin 2.8 L, Globulin 3.6, Albumin/Globulin Ratio 0.8 L 06/02/20 05:55: Lactic Acid 1.6 06/02/20 06:25: Urine Color Yellow, Urine Clarity Clear, Urine pH 6.0, Ur Specific [place] 1.020, Urine Protein 500 H, Urine Glucose (UA) 1000 H, Urine Ketones Negative, Urine Occult Blood 10 H, Urine Nitrite Negative, Urine Bilirubin Negative, Urine Urobilinogen Normal, Ur Leukocyte Esterase Negative, Urine RBC 0-5 SEEN, Urine WBC 0 SEEN, Ur Squamous Epith Cells 0-5 SEEN, Urine Bacteria 0 SEEN, Urine Mucus 0 SEEN 06/02/20 08:15: COVID-19 (TIFFANY) Pending Current Medications Sodium Chloride () 1,000 mls @ 150 mls/hr IV .Q6H40M FLOR Last Admin: 06/02/20 06:29 Dose: 150 mls/hr Documented by: Assessment/Plan All Active Problems (Last Updated 03/25/20 @ 08:32 by Selam Hampton) Bilateral pneumonia (Resolved) Acute bronchitis (Resolved) Candiduria (Resolved) Dehydration (Resolved) Dehydration (Resolved) Hypokalemia (Resolved) Hypophosphatemia (Resolved) Hypotension (Resolved) Intractable nausea and vomiting (Resolved) Ketonuria (Resolved) Low back strain (Resolved) Orthostatic hypotension (Resolved) Sinusitis (Resolved) Thrush (Resolved) pseudohyponatremia (Resolved) 1. SIRS, Fever of unknown origin-patient reports fever 101.4 at home. T-max since admission 99.9. WBC 15.7. Tachycardia. Chest x-ray personally reviewed and no evidence of focal infiltrate. Urinalysis unremarkable. Covid negative. Check respiratory panel. As needed Tylenol for fever. IV fluids. Hold off on antibiotics at this time given no source of infection. Possible chemo related? 2. Stage IV invasive ductal carcinoma, metastatic to lung- Follows with Dr. Barakat. Last chemo 2 weeks ago. 3. Chronic pain syndrome-on methadone. 4. Type 2 diabetes mellitus-hold oral regimen. Accu-Cheks with sliding scale insulin. 5. Hypertension-stable, continue home regimen. 6. Hyperlipidemia-continue statin. 7. Chronic normocytic anemia-stable, trend CBC. 8. GERD-continue PPI. DVT prophylaxis-Lovenox subcu This patient was seen by JASMIN Feliciano under the supervision of Dr. Marshall. <Jacinto Marshall - Last Filed: 06/02/20 14:06> History of Present Illness The patient is a 50 year old F Developed fever and chills this morning. Contacted her oncologist who advised her to come to the hospital. Infectious work-up was unremarkable in the ED but did receive cefepime. Since going up to the floor, patient has developed pain in her right leg. Explained that it is in her groin going down to her knee medially. Also with pain behind her right knee.[] Past Medical History Medical History: Medical History (Last Reviewed 06/02/20 @ 14:[address] Jacinto Marshall DO) Hyperlipemia (Chronic) E78.5 Hypertension (Chronic) I10 Neuropathy (Chronic) G62.9 Morven node September 2016 Dr Ruiz at [facility] Allergies No Known Allergies Allergy (Verified 06/02/20 05:27) Surgical History: Surgical History (Last Reviewed 06/02/20 @ 14:[address] 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 Jacinto Marshall DO) Mother Breast cancer Diabetes Aunt Skin cancer Father Heart disease Hypertension Brother Asthma Grandmother Colon cancer History Items: Pulmonary Disease Maternal Family History: Family History (Last Reviewed 06/02/20 @ 14:[address] Jacinto Marshall DO) Mother Breast cancer Diabetes Aunt Skin cancer Father Heart disease Hypertension Brother Asthma Grandmother Colon cancer Paternal Family History: Family History (Last Reviewed 06/02/20 @ 14:[address] Jacinto Marshall DO) Mother Breast cancer Diabetes Aunt Skin cancer Father Heart disease Hypertension Brother Asthma Grandmother Colon cancer Review of Systems Constitutional: Reports: Chills, Fever HEENT: Denies: Head Aches, Sinus Congestion, Sinus Drainage Cardiovascular: Denies: Chest Pain, Palpitations Respiratory: Denies: Cough, Shortness of breath at rest, Sputum production Gastrointestinal: Denies: Abdominal Pain, Nausea, Vomiting Genitourinary: Denies: Dysuria Musculoskeletal: Denies: Joint Pain, Joint Tenderness Skin: Denies: Rash, Wounds Neurological: Denies: Focal weakness, Numbness, Tingling Psychiatric: Denies: Anxiety, Depression, Homicidal Ideations, Suicidal Ideations Hematologic/ Lymphatic: Denies: Easy Bruising, Easy Bleeding VTE Information - Inpt Only VTE Present on Admission: No VTE Mechan Device Prophylaxis: None VTE Pharm Prophylaxis ordered?: Yes - Physical Exam Vitals/I&O's: Vital Signs Temp Pulse Resp BP Pulse Ox 37.5 C H 106 H 16 152/69 H 99 06/02/20 12:29 06/02/20 11:33 06/02/20 11:33 06/02/20 11:33 06/02/20 11:33 Oxygen Delivery Method Room Air Weight: 99.019 kg Body Mass Index (BMI) 34.2 Finger Stick Blood Glucose 156 Intake and Output for Last 24 Hours 05/31/20 06/01/20 06/02/20 23:59 23:59 23:59 Intake Total 997.5 / 997.5 Balance 997.5 / 997.5 General: Alert, Oriented x3, Cooperative HEENT: Atraumatic, PERRLA, EOMI, Normocephalic Neck: Supple, Negative Carotid Bruits Lungs: Clear to auscultation, Diminished Cardiovascular: Regular rate, No murmurs Abdomen: Bowel Sounds Present, Soft, Non Tender, Non-Distended Extremities: No clubbing, No cyanosis, No edema, Capillary Refill Less than 3 Seconds Skin: No rashes, No breakdown Musculoskeletal: - - Bogginess and tenderness in the posterior right knee. No swelling, induration noted in her groin nor medial right leg. Neurological: Cranial nerves II-XII grossly intact, Neuro grossly intact Psych/Mental Status: Normal Affect, Appropriate Microbiology Past 72 Hours 06/02/20 05:55 Mucosa - Nose SARS-CoV-2 Antigen (Rapid) - Final Laboratory Results 06/02/20 05:55: WBC 15.7 H, RBC 2.64 L, Hgb 8.0 L, Hct 25.5 L, MCV 96.6, MCH 30.3, MCHC 31.4 L, RDW Std Deviation 55.8 H, RDW Coeff of Cori 15.9 H, Plt Count 287, MPV 9.5, Immature Gran % (Auto) 0.500, Neut % (Auto) 91.4 H, Lymph % (Auto) 4.8 L, [place] % (Auto) 2.6, Eos % (Auto) 0.5, Baso % (Auto) 0.2, Absolute Neuts (auto) 14.3 H, Absolute Lymphs (auto) 0.75 L, Nucleated RBC % 0 06/02/20 05:55: Sodium 137, Potassium 4.6, Chloride 103, Carbon Dioxide 29.0, Anion Gap 5, BUN 34 H, Creatinine 0.78, Estim Creat Clear Calc 82.98, Est GFR (MDRD) Af Amer 100, Est GFR (MDRD) Non-Af 82, BUN/Creatinine Ratio 43.4 H, Glucose 220 H, Calcium 8.7, Total Bilirubin 0.30, AST 10 L, ALT 21, Alkaline Phosphatase 137 H, Total Protein 6.4, Albumin 2.8 L, Globulin 3.6, Albumin/Globulin Ratio 0.8 L 06/02/20 05:55: Lactic Acid 1.6 06/02/20 05:55: Uric Acid 6.9 H 06/02/20 06:25: Urine Color Yellow, Urine Clarity Clear, Urine pH 6.0, Ur Specific [place] 1.020, Urine Protein 500 H, Urine Glucose (UA) 1000 H, Urine Ketones Negative, Urine Occult Blood 10 H, Urine Nitrite Negative, Urine Bilirubin Negative, Urine Urobilinogen Normal, Ur Leukocyte Esterase Negative, Urine RBC 0-5 SEEN, Urine WBC 0 SEEN, Ur Squamous Epith Cells 0-5 SEEN, Urine Bacteria 0 SEEN, Urine Mucus 0 SEEN 06/02/20 08:15: COVID-19 (TIFFANY) Not Detected 06/02/20 12:23: POC Glucose 143 H 06/02/20 13:47: POC Glucose 145 H Current Medications Acetaminophen (Acetaminophen 325 Mg Tablet) 650 mg PO Q6H PRN PRN PRN Reason: Pain Score 1-10/Temp > 100.7 F Last Admin: 06/02/20 12:10 Dose: 650 mg Documented by: Al Hydroxide/Mg Hydroxide (Mag Hydrox/Al Hydrox/Simeth 30 Ml Udc) 30 ml PO Q6H PRN PRN PRN Reason: HEARTBURN Last Admin: 06/02/20 13:52 Dose: 30 ml Documented by: Atorvastatin Calcium (Atorvastatin Calcium 40 Mg Tablet) 40 mg PO QHS [facility] Bumetanide (Bumetanide 2 Mg Tablet) 3 mg PO BID [facility] Enoxaparin Sodium (Enoxaparin 40 Mg/0.4 Ml Syringe) 40 mg SC DAILY [facility] Heparin Sodium (Beef Lung) (Heparin Pf Lock 10 Units/Ml 50 Units/5 Ml Syringe) 50 units IV UD PRN PRN Reason: Port-a-Cath (VAD)Heparin Flush Hydralazine HCl (Hydralazine 20 Mg/Ml Vial) 5 mg IV Q4H PRN PRN PRN Reason: BLOOD PRESSURE Insulin Glargine (Insulin Glargine 100 Units/Ml Pen) 30 units SC QHS [facility] Insulin Human Lispro (Insulin Lispro 100 Unit/Ml Insuln.Pen) 10 unit SC TIDCM [facility] Last Admin: 06/02/20 12:27 Dose: Not Given Documented by: Losartan Potassium (Losartan Potassium 50 Mg Tablet) 50 mg PO DAILY [facility] Methadone HCl (Methadone 5 Mg Tablet) 5 mg PO BID [facility] Ondansetron HCl (Ondansetron 4 Mg/2 Ml Vial) 4 mg IV Q8H PRN PRN PRN Reason: NAUSEA/VOMITING Pantoprazole Sodium (Pantoprazole Sodium 40 Mg Tablet) 40 mg PO BID [facility] Last Admin: 06/02/20 13:52 Dose: 40 mg Documented by: Potassium Chloride (Potassium Chloride Oral Tablet 10 Meq) 20 meq PO DAILYCM FLOR Sertraline HCl (Sertraline 100 Mg Tablet) 100 mg PO DAILY FLOR Sodium Chloride (0.9% Saline Lock 10 Ml Syringe) 10 - 40 ml IV UD PRN PRN Reason: Port-a-Cath (VAD) Flush Sodium Chloride (0.9 % Nacl (Sterile) Posiflush 10 Ml) 10 - 40 ml IV UD PRN PRN Reason: Port access or dressing change Assessment/Plan Patient seen and examined independently. Data reviewed. I agree with the above note by the nurse practitioner. 1. Systemic inflammatory response syndrome: Etiology unclear. Clinically I think I can really identify as patient has some tenderness in the posterior right knee. Low concern for septic arthritis. Uric acid level is 6.9. Patient has never had an acute gout flare before but that is certainly a concern. A uric acid level during an acute gout flare may not be that high. Did receive IV antibiotics in the emergency room with cefepime. We will continue to hold off on antibiotics and follow-up cultures. OBSV E&M: [id number] Initial observation care L3
[2020-06-02] MEDS: Acetaminophen 325 MG Tablet 650 MG PO ×2 (12:10→21:59)
[2020-06-02 12:41] LABS: Bedside Glucose 143 mg/dL (70-110)
[2020-06-02 13:15] LABS: Uric Acid 6.9 mg/dL (2.6-6.0)
--- NOTE | 2020-06-02 13:45 | CASEMGMT ---
Addendum entered by Loli Espitia 06/02/20 14:55: SW did let pt know that Healthcare POA not on file, asked her to bring it in as able after her hospitalization. Pt states understanding. MAXIMO Orozco Original Note: LW in summary tab of echart. KYLIE OrozcoS
[2020-06-02] MEDS: Pantoprazole Sodium 40 MG Tablet PO ×2 (13:52→21:51)
[2020-06-02] MEDS: Mag Hydrox/Al Hydrox/Simeth 30 ML UDC PO (13:52)
[2020-06-02 14:00] LABS: Bedside Glucose 145 mg/dL (70-110)
[2020-06-02] MEDS: Insulin Lispro 100 UNIT/ML INSULN.PEN 10 UNIT SC (17:53)
[2020-06-02 18:01] LABS: Bedside Glucose 161 mg/dL (70-110)
[2020-06-02] MEDS: Atorvastatin Calcium 40 MG Tablet PO (21:50)
[2020-06-02 22:06] LABS: Bedside Glucose 211 mg/dL (70-110)
[2020-06-03 00:48] VITALS: BP 127/61; PULSE 95; RESP 18; TEMP 37.4; O2SAT 97
[2020-06-03 03:42] VITALS: BP 140/65; PULSE 102; RESP 16; TEMP 37.7; O2SAT 100
[2020-06-03 05:52] LABS: Absolute Lymphocyte Count 0.94 X10^3/uL (0.83-4.51); Absolute Neutrophil Count 11.6 X10^3/uL (2.0-7.7); Basophil# 0.05 X10^3/uL; Basophil% 0.4 % (0-1); Eosinophil# 0.08 X10^3/uL; Eosinophils% 0.6 % (0-5); Hematocrit 24.3 % (37-47); Hemoglobin 7.4 g/dL (12.0-15.0); Lymphocyte # 0.94 X10^3/ul (4.0); Lymphocyte % 6.9 % (19-41); Mean Corp Hgb Conc 30.5 g/dL (32-36); Mean Corpuscular Hgb 30.1 pg (27.0-32.0); Mean Corpuscular Volume 98.8 fL (81-99); Monocyte# 0.73 X10^3/uL; Monocyte% 5.4 % (0-10); NRBC Flagged by Analyzer 0 % (0-5); Neutrophil # 11.62 X10^3/uL (2.7-7.7); Neutrophil % 85.8 % (47-70); Platelet Count 252 K/mm3 (150-450); RBC Distribution Width CV 15.9 % (11.6-14.6); RBC Distribution Width SD 56.6 fl (35.1-43.9); Red Blood Count 2.46 M/mm3 (4.2-5.4); White Blood Count 13.5 K/mm3 (4.4-11.0)
[2020-06-03 06:23] LABS: Anion Gap 5 (5-15); BUN 44 mg/dL (7-18); BUN/Creat Ratio 43.1 RATIO (10-20); Calcium,Total 8.2 mg/dL (8.5-10.1); Chloride 105 mmol/L (98-107); Creatinine, Serum 1.02 mg/dL (0.55-1.02); EST Glomerular Filtration Rate 61 mL/min (>60); Est Glom Filt Rate - Afr Amer 74 mL/min (>60); Estimated Creatinine Clearance 63.45 ml/min; Glucose 117 mg/dL (74-106); Potassium 4.4 mmol/L (3.5-5.1); Sodium Level 137 mmol/L (136-145)
[2020-06-03 07:51] VITALS: BP 132/61; PULSE 98; RESP 16; TEMP 37.5; O2SAT 98
[2020-06-03] MEDS: Acetaminophen 325 MG Tablet 650 MG PO (08:08)
[2020-06-03 08:21] LABS: Bedside Glucose 90 mg/dL (70-110)
[2020-06-03 09:36] LABS: Bedside Glucose 110 mg/dL (70-110)
--- NOTE | 2020-06-03 09:54 | VDLE_ITS ---
Reason For Study: edema RIGHT LEFT GSV is normal. GSV is normal. CFV is compressible, spontaneous, phasic, CFV is compressible, spontaneous, phasic, competent and demonstrates normal competent, and demonstrates normal augmentation. augmentation. FV is compressible, spontaneous, phasic, FV is compressible, spontaneous, phasic, competent and demonstrates normal competent and demonstrates normal augmentation. augmentation. POP V is compressible, spontaneous, phasic, POP V is compressible, spontaneous, phasic, competent and demonstrates normal competent and demonstrates normal augmentation. augmentation. T/P Trunk is compressible. T/P Trunk is compressible. PTV is compressible. PTV is compressible. RT PerV is compressible. LT PerV is compressible. Procedure This is a venous duplex using B-mode, color flow and spectral Doppler. Exam performed portable in patient room. The exam was diagnostic. A preliminary report was called and/or faxed to Alanna CARMEN. Interpretation Summary No evidence for acute deep venous thrombosis bilateral lower extremities with patent and compressible bilateral great saphenous veins. Ordering Physician: Jacinto Marshall Performed By: Laron Gonzalez RVT
[2020-06-03] MEDS: Ondansetron 4 MG/2 ML Vial IV (10:06)
[2020-06-03] MEDS: 0.9% Saline Lock 10 ML Syringe IV (10:06)
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
[2020-06-03] MEDS: Enoxaparin 40 MG/0.4 ML Syringe SC (12:26)
[2020-06-03] MEDS: Pantoprazole Sodium 40 MG Tablet PO ×2 (12:27→21:59)
[2020-06-03] MEDS: Losartan Potassium 50 MG Tablet PO (12:33)
[2020-06-03 12:46] VITALS: BP 120/52; PULSE 88; RESP 18; TEMP 37.2; O2SAT 97
[2020-06-03 12:51] LABS: Bedside Glucose 125 mg/dL (70-110)
[2020-06-03 16:59] VITALS: BP 150/70; PULSE 95; RESP 18; TEMP 37.4; O2SAT 99
[2020-06-03 17:10] LABS: Bedside Glucose 138 mg/dL (70-110)
[2020-06-03] MEDS: Atorvastatin Calcium 40 MG Tablet PO (21:59)
[2020-06-03 22:15] LABS: Bedside Glucose 285 mg/dL (70-110)
[2020-06-03 22:27] VITALS: BP 155/87; PULSE 102; RESP 18; TEMP 36.8; O2SAT 100
[2020-06-04 05:16] VITALS: BP 130/74; PULSE 101; RESP 16; TEMP 37.1; O2SAT 95
[2020-06-04 05:34] LABS: Hematocrit 23.3 % (37-47); Hemoglobin 7.2 g/dL (12.0-15.0); Mean Corp Hgb Conc 30.9 g/dL (32-36); Mean Corpuscular Hgb 30.1 pg (27.0-32.0); Mean Corpuscular Volume 97.5 fL (81-99); Mean Platelet Vol. 9.5 fl (6.2-12.0); Platelet Count 285 K/mm3 (150-450); RBC Distribution Width CV 15.5 % (11.6-14.6); Red Blood Count 2.39 M/mm3 (4.2-5.4); White Blood Count 13.1 K/mm3 (4.4-11.0)
[2020-06-04] MEDS: Potassium Chloride Oral Tablet 10 MEQ 20 MEQ PO (07:59)
[2020-06-04] MEDS: Insulin Lispro 100 UNIT/ML INSULN.PEN 10 UNIT SC ×2 (08:01→12:44)
[2020-06-04 08:05] LABS: Bedside Glucose 248 mg/dL (70-110)
--- NOTE | 2020-06-04 09:40 | DCINST_ITS ---
- Discharge Diagnoses Current Active Problems: Current Active and Chronic Problems (Last Reviewed 06/02/20 @ 14:[address] Jacinto Marshall, DO) Hyperlipemia (Chronic) Hypertension (Chronic) Iron deficiency (Chronic) Nephrotic syndrome (Chronic) Left ventricular hypertrophy (Chronic) Grade I diastolic dysfunction (Chronic) Normochromic normocytic anemia (Chronic) Proteinuria (Chronic) Glaucoma (Chronic) Neuropathy (Chronic) DM (diabetes mellitus), type 2, uncontrolled with complications (Chronic) Goiter (Chronic) GERD (gastroesophageal reflux disease) (Chronic) Abnormal ECG (Chronic) Anxiety and depression (Chronic) Invasive ductal carcinoma of breast (Chronic) Diagnosed with right breast cancer stage Ia in August 2013. Needle biopsy showed invasive ductal carcinoma which was triple negative. She underwent partial mastectomy with a sentinel node biopsy. The sentinel node biopsy was negative. She developed lung nodules in October 2016 and a right axillary mass. She had right axillary lymphadenectomy on December 24, 2016 and 1 out of 7 lymph nodes was positive with metastatic poorly differentiated carcinoma, triple negative. She also has metastatic pulmonary nodules. She is currently being managed by Dr. Clifford Barakat. Hypomagnesemia (Chronic) You will use the following diet at home:: No restrictions Discharge Activity: Return to Normal Activity Call your doctor if you observe: Shortness of breath, Dizziness, Fainting spells, Chest pain Allergies/Adverse Reactions: Allergies No Known Allergies Allergy (Verified 06/02/20 05:27) Medications to take at Discharge Valacyclovir HCl [Valtrex] 500 mg PO DAILY PRN PRN 02/12/13 bumetanide 2 mg tablet 3 mg PO BID 11/06/19 cholestyramine (with sugar) 4 gram oral powder 4 g PO TID PRN g 11/06/19 diphenoxylate-atropine 2.5 mg-0.025 mg tablet 2 tab PO .QID PRN tab 11/06/19 methadone 5 mg tablet 5 mg PO BID tab 11/06/19 omeprazole 20 mg tablet,delayed release 20 mg PO DAILY 11/06/19 potassium chloride 10 mEq capsule,extended release 20 meq PO DAILY cap 11/06/19 timolol 0.5 % eye drops 2 drp OPHTHALMIC DAILY 11/06/19 Atorvastatin Calcium [Lipitor] 40 mg PO QHS 03/11/20 sertraline 100 mg tablet 100 mg PO DAILY #90 tab 03/25/20 insulin glargine 100 unit/mL (3 mL) subcutaneous pen 30 unit SC QHS 90 Days #27 ml 04/25/20 insulin lispro 100 unit/mL subcutaneous pen 10 unit SC TID 90 Days #27 ml 04/25/20 losartan 50 mg tablet 50 mg PO DAILY #90 tab 04/25/20 Ferrous Sulfate 325 mg PO QODAY #14 tab 06/04/20 The following prescriptions were given: Ferrous Sulfate 325 mg PO QODAY #14 tab Transmission Status: Received by [facility] Primary Care Physician: Joe Law MD [Primary Care Provider] - Please follow up with your Primary Care Physician in: 1 Week Test Results: Test results from this visit will be discussed in further detail at your follow- up appointment, if applicable. Please Follow Up With: Clifford Barakat DO When: As scheduled Proposed Discharge Date: 06/04/20
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
[2020-06-04] MEDS: Pantoprazole Sodium 40 MG Tablet PO (10:52)
[2020-06-04] MEDS: Losartan Potassium 50 MG Tablet PO (10:53)
[2020-06-04 10:55] VITALS: BP 153/70; PULSE 96; RESP 18; TEMP 37.2; O2SAT 99
[2020-06-04] MEDS: 0.9% Saline Lock 10 ML Syringe IV (11:10)
[2020-06-04 11:50] LABS: Bedside Glucose 250 mg/dL (70-110)
[2020-06-04 14:16] VITALS: BP 135/79; PULSE 79; RESP 18; TEMP 36.9; O2SAT 98
--- NOTE | 2020-06-04 14:33 | PHA.DC.MR ---
Pharmacy Service has performed discharge medication reconciliation for this patient. The patient's discharge medication list was reviewed for discrepancies and discrepancies were resolved. Home Medications Valacyclovir HCl [Valtrex] 500 mg PO DAILY PRN PRN 02/12/13 bumetanide 2 mg tablet 3 mg PO BID 11/06/19 cholestyramine (with sugar) 4 gram oral powder 4 g PO TID PRN g 11/06/19 diphenoxylate-atropine 2.5 mg-0.025 mg tablet 2 tab PO .QID PRN tab 11/06/19 methadone 5 mg tablet 5 mg PO BID tab 11/06/19 omeprazole 20 mg tablet,delayed release 20 mg PO DAILY 11/06/19 potassium chloride 10 mEq capsule,extended release 20 meq PO DAILY cap 11/06/19 timolol 0.5 % eye drops 2 drp OPHTHALMIC DAILY 11/06/19 Atorvastatin Calcium [Lipitor] 40 mg PO QHS 03/11/20 sertraline 100 mg tablet 100 mg PO DAILY #90 tab 03/25/20 insulin glargine 100 unit/mL (3 mL) subcutaneous pen 30 unit SC QHS 90 Days #27 ml 04/25/20 insulin lispro 100 unit/mL subcutaneous pen 10 unit SC TID 90 Days #27 ml 04/25/20 losartan 50 mg tablet 50 mg PO DAILY #90 tab 04/25/20 Ferrous Sulfate 325 mg PO QODAY #14 tab 06/04/20
== END 2020-06-04 14:20 | disposition home or self-care (01) ==
LOC: ED 06:46 → MS3 11:17
PROVIDERS: Nurse Practitioner Family; Emergency Provider Emergency Medicine; PCP Internal Medicine
DX: R50.9 Fever, unspecified (principal); R65.10 Systemic inflammatory response syndrome (SIRS) of non-infectious origin without acute organ dysfunction; E11.40 Type 2 diabetes mellitus with diabetic neuropathy, unspecified; E78.5 Hyperlipidemia, unspecified; K21.9 Gastro-esophageal reflux disease without esophagitis; F41.9 Anxiety disorder, unspecified; I10 Essential (primary) hypertension; F32.9 Major depressive disorder, single episode, unspecified; C77.3 Secondary and unspecified malignant neoplasm of axilla and upper limb lymph nodes; C78.00 Secondary malignant neoplasm of unspecified lung; R60.0 Localized edema; G89.4 Chronic pain syndrome; K58.9 Irritable bowel syndrome, unspecified; D64.9 Anemia, unspecified; H40.9 Unspecified glaucoma; Z79.891 Long term (current) use of opiate analgesic; Z85.3 Personal history of malignant neoplasm of breast; Z79.899 Other long term (current) drug therapy; Z79.4 Long term (current) use of insulin; Z17.1 Estrogen receptor negative status [ER-]; Z87.891 Personal history of nicotine dependence
CPT/HCPCS: 36415; 71045; 80048; 80053; 81001; 82962; 83605; 84550; 85025; 85027; 87040; 87086; 87088; 87426; 87633; 87635; 93970; 96361; 96365; 96372; 96375; 99218; 99284; J7030; J7040; A4216; G0378; J2405; U0002

== ENCOUNTER → 2020-06-06 08:35 | Outpatient (CLI) | payer OTHER, SELFPAY ==
[2020-06-02 12:00] VITALS: BMI 34.2
[2020-06-06] MEDS: 0.9 % NaCl (Sterile) Posiflush 10 mL IV (08:50)
[2020-06-06 09:00] VITALS: BP 148/63; PULSE 88; RESP 16; TEMP 36.2; O2SAT 100; BMI 34.1
[2020-06-06 09:32] VITALS: BP 146/72; PULSE 89; RESP 16; TEMP 36.3; O2SAT 95
[2020-06-06 10:35] VITALS: BP 157/69; PULSE 89; RESP 16; TEMP 36.3; O2SAT 99
[2020-06-06 11:04] VITALS: BP 160/69; PULSE 88; RESP 16; TEMP 36.3; O2SAT 100
[2020-06-06] MEDS: Furosemide 20 MG/2 ML VIAL IV (11:23)
[2020-06-06 12:02] VITALS: BP 149/57; PULSE 98; RESP 16; TEMP 36.1; O2SAT 98
[2020-06-06 13:52] VITALS: BP 160/74; PULSE 90; RESP 16; TEMP 36.2; O2SAT 99
[2020-06-06] MEDS: 0.9% NaCl VAD Flush IV (13:55)
== END ==
PROVIDERS: PCP Internal Medicine; Referring Provider Internal Medicine Hematology & Oncology; Visit Provider Internal Medicine Hematology & Oncology
DX: D64.81 Anemia due to antineoplastic chemotherapy (principal)
CPT/HCPCS: 36430; 86850; 86900; 86901; 86920; 86922; J7040; P9016; A4216; J1940

== ENCOUNTER → 2020-06-19 14:12 | Outpatient (CLI) | payer OTHER, SELFPAY ==
[2020-06-06 09:00] VITALS: BMI 34.1
[2020-06-19 16:14] LABS: Hematocrit 32.2 % (37-47); Hemoglobin 9.7 g/dL (12.0-15.0); Mean Corp Hgb Conc 30.1 g/dL (32-36); Mean Corpuscular Hgb 28.6 pg (27.0-32.0); Mean Platelet Vol. 9.1 fl (6.2-12.0); Platelet Count 414 K/mm3 (150-450); RBC Distribution Width CV 14.4 % (11.6-14.6); RBC Distribution Width SD 49.8 fl (35.1-43.9); Red Blood Count 3.39 M/mm3 (4.2-5.4); White Blood Count 7.7 K/mm3 (4.4-11.0)
[2020-06-19 16:29] LABS: Protein, Urine (Random) 414.8 mg/dL (<11.9); Protein:Creat Ratio 7434 mg/g CRE (0-200)
[2020-06-19 16:32] LABS: Albumin, Serum 2.4 g/dL (3.2-5.0); BUN 30 mg/dL (7-18); BUN/Creat Ratio 26.3 RATIO (10-20); Calcium,Total 8.3 mg/dL (8.5-10.1); Chloride 98 mmol/L (98-107); Creatinine, Serum 1.14 mg/dL (0.55-1.02); EST Glomerular Filtration Rate 53 mL/min (>60); Est Glom Filt Rate - Afr Amer 65 mL/min (>60); Ferritin 965 ng/mL (8-252); Glucose 380 mg/dL (74-106); Iron 38 ug/dL (50-170); Iron Binding Capacity,Total 197 ug/dL (250-450); Magnesium 1.8 mg/dL (1.6-2.6); PERCENT IRON SATURATION 19.3 % (15.0-55.0); Phosphorus 3.4 mg/dL (2.5-4.9); Potassium 4.6 mmol/L (3.5-5.1); Sodium Level 135 mmol/L (136-145)
[2020-06-20 09:48] LABS: Hepatitis B Surface Antibody Reactive; Hepatitis B Surface Antigen Non-Reactive (Nonreactive); Hepatitis C Antibody Non-Reactive (Nonreactive)
== END ==
PROVIDERS: PCP Internal Medicine; Visit Provider Internal Medicine Nephrology
DX: N04.9 Nephrotic syndrome with unspecified morphologic changes (principal)
CPT/HCPCS: 36415; 80069; 82570; 82728; 83540; 83550; 83735; 84156; 85027; 86706; 86803; 87340

== ENCOUNTER → 2020-07-08 09:22 | Outpatient (CLI) | payer OTHER, SELFPAY ==
[2020-06-06 09:00] VITALS: BMI 34.1
--- NOTE | 2020-07-08 09:24 | US_ITS ---
STUDY: RENAL ULTRASOUND - COMPLETE REASON FOR EXAM: Female, 50 years old. NEPHROTIC SYNDROME W/UNSPECIFIED MORPHOLOGIC CHANGES TECHNIQUE: Ultrasound evaluation of the kidneys was performed with real-time and static darden-scale imaging. COMPARISON: None. FINDINGS: RIGHT KIDNEY: Normal location of the right kidney, which is normal in size. The right kidney measures 13.9 cm x 6.2 cm x 5.2 cm. There is a normal cortex of the right kidney. The renal cortex measures 1.8 cm. There is no right renal mass or cyst. There are no right renal calculi. There is no right hydronephrosis. DISTAL RIGHT URETER: There is non-visualization of the distal right ureter. There is no demonstrated right ureterovesical junction calculus. There is no demonstrated right ureteral jet. LEFT KIDNEY: Normal location of the left kidney, which is normal in size. The left kidney measures 15.4 cm x 5.8 cm x 5.9 cm. There is a normal cortex of the left kidney. The renal cortex measures 2.2 cm. There is no left renal mass or cyst. There are no left renal calculi. There is no left hydronephrosis. DISTAL LEFT URETER: There is non-visualization of the distal left ureter. There is no demonstrated left ureterovesical junction calculus. There is no demonstrated left ureteral jet. BLADDER: The distended urinary bladder has a volume of 472 ml. There is a normal wall thickness of the distended urinary bladder. There is no demonstrated mass within the urinary bladder. There are no demonstrated bladder calculi. US/Kidney and Bladder IMPRESSION: Normal ultrasound of the kidneys and urinary bladder. Electronically Signed: Darryl Ford MD at 14:10 EDT , Service support ,
== END ==
PROVIDERS: PCP Internal Medicine; Referring Provider Internal Medicine Nephrology; Visit Provider Internal Medicine Nephrology
DX: N04.9 Nephrotic syndrome with unspecified morphologic changes (principal)
CPT/HCPCS: 76770

== ENCOUNTER → 2020-08-18 09:46 | Outpatient (CLI) | payer OTHER, SELFPAY ==
[2020-06-06 09:00] VITALS: BMI 34.1
[2020-08-18 11:40] LABS: Albumin, Serum 2.6 g/dL (3.2-5.0); BUN 42 mg/dL (7-18); BUN/Creat Ratio 44.1 RATIO (10-20); Calcium,Total 8.1 mg/dL (8.5-10.1); Chloride 104 mmol/L (98-107); Creatinine, Serum 0.95 mg/dL (0.55-1.02); EST Glomerular Filtration Rate 66 mL/min (>60); Est Glom Filt Rate - Afr Amer 80 mL/min (>60); Glucose 431 mg/dL (74-106); Phosphorus 3.4 mg/dL (2.5-4.9); Potassium 4.1 mmol/L (3.5-5.1); Sodium Level 138 mmol/L (136-145)
== END ==
PROVIDERS: PCP Internal Medicine; Referring Provider Internal Medicine Nephrology; Visit Provider Internal Medicine Nephrology
DX: N04.9 Nephrotic syndrome with unspecified morphologic changes (principal)
CPT/HCPCS: 36415; 80069

== ENCOUNTER → 2020-08-22 11:01 | Outpatient (CLI) | payer OTHER, SELFPAY ==
[2020-06-06 09:00] VITALS: BMI 34.1
[2020-08-22 11:37] LABS: D-Dimer Quantitative (DVT/PE) 0.47 FEU/ug/m (0.27-0.49)
== END ==
PROVIDERS: PCP Internal Medicine; Referring Provider Internal Medicine Hematology & Oncology; Visit Provider Internal Medicine Hematology & Oncology
DX: C50.411 Malignant neoplasm of upper-outer quadrant of right female breast (principal); Z17.1 Estrogen receptor negative status [ER-]
CPT/HCPCS: 85379

== ENCOUNTER 2020-10-14 12:30 | Outpatient (RCR) | payer OTHER, SELFPAY ==
[2020-06-06 09:00] VITALS: BMI 34.1
[2020-10-07 15:10] VITALS: BP 159/63; PULSE 106; RESP 16; TEMP 36; BMI 34.6
--- NOTE | 2020-10-07 17:15 | PCM.WC.HP ---
History of Present Illness Date of Service: 10/07/20 Chief Complaint: seeping from her legs and discolored scales on the skin of the LE's L>R. History of Wound: Anitra is a 50 YO female with a PMH of breast CA (triple negative with mets), HTN, poorly controlled DM II, nephrotic S., anxiety/depression, tobacco dependence in remission, Left ventricular hypertrophy, grade 1 diastolic dysfunction, peripheral neuropathy, GERD,Hyperlipidemia and chronic hypomagnesemia who presents to the [facility] today with c/o weeping from her legs with thick, discolored scales. I have seen Anitra in the past when she was admitted to the rehab unit for debility due to pneumonia. She had lymphedema of the LE's the last time I saw her but the scales are new. She has gained at least 25-30 lbs since I last saw her. [facility] Medical History (Updated 10/14/20 @ 16:[address] Delmy Begum DO) Hyperlipemia Hypertension Lymphedema Neuropathy [place] node Home Medications valacyclovir 500 mg PO DAILY PRN PRN 02/12/13 [History Last Taken 11/16/17] bumetanide 2 mg tablet 3 mg PO BID 11/06/19 [History Last Taken Unknown] cholestyramine (with sugar) 4 gram oral powder 4 g PO TID PRN g 11/06/19 [History Last Taken Unknown] diphenoxylate-atropine 2.5 mg-0.025 mg tablet 2 tab PO .QID PRN tab 11/06/19 [History Last Taken Unknown] methadone 5 mg tablet 5 mg PO BID tab 11/06/19 [History Last Taken Unknown] omeprazole 20 mg tablet,delayed release 20 mg PO DAILY 11/06/19 [History Last Taken Unknown] timolol 0.5 % eye drops 2 drp OPHTHALMIC DAILY 11/06/19 [History Last Taken Unknown] atorvastatin 40 mg PO QHS 03/11/20 [History Last Taken Unknown] sertraline 100 mg tablet 100 mg PO DAILY #90 tab 03/25/20 [Rx Last Taken Unknown] insulin glargine 100 unit/mL (3 mL) subcutaneous pen 30 unit SC QHS 90 Days #27 ml 04/25/20 [Rx Last Taken Unknown] insulin lispro 100 unit/mL subcutaneous pen 10 unit SC TID 90 Days #27 ml 04/25/20 [Rx Last Taken Unknown] losartan 50 mg tablet 50 mg PO DAILY #90 tab 04/25/20 [Rx Last Taken Unknown] ferrous sulfate 325 mg PO QODAY #14 tab 06/04/20 [Rx Last Taken Unknown] potassium chloride 10 mEq capsule,extended release 20 meq PO DAILY #180 cap 10/14/20 [Rx Last Taken Unknown] Allergy/AdvReac Type Severity Reaction Status Date / Time No Known Allergies Allergy Verified 06/06/20 09:17 Family History Mother Breast cancer Diabetes Aunt Skin cancer Father Heart disease Hypertension Brother Asthma Grandmother Colon cancer Surgical History History of hysterectomy History of lumpectomy of right breast Social History (Updated 10/14/20 @ 16:[address] Delmy Begum DO) household members: spouse housing: house current occupational status: disabled pets and animals: Yes do you think of yourself as: straight/heterosexual current gender identity: female Smoking Status: Former smoker quit date: 04/18/10 Tobacco: How many years used: 10 alcohol intake: current alcohol intake frequency: holidays/special occasions only substance use type: does not use what type of physical activity do you participate in: none ROS Constitutional Constitutional: Reports change in weight and weakness; Denies chills, fever(s) or night sweats Eyes Eyes: Denies change in vision Cardiovascular Cardiovascular: Reports dyspnea, edema and fatigue; Denies chest pain or palpitations Respiratory/Chest Respiratory/Chest: Reports shortness of breath at rest and shortness of breath with exertion; Denies cough, hemoptysis or pain on inspiration Gastrointestinal Gastrointestinal: Denies abdominal pain Integumentary Integumentary: Reports change in pigmentation, dry skin, skin swelling and other Details: new dark colored hyperkeratotic skin over the LE's distal to the knee and increased swelling ; Denies jaundice or nail changes Vital Signs Vital Signs Vital Signs: 10/07/20 15:10 Temperature 96.8 F L Temperature Source Temporal Pulse Rate 106 H Respiratory Rate 16 Blood Pressure 159/63 H Blood Pressure Mean 95 Blood Pressure Source Monitor Blood Pressure Position Sitting Blood Pressure Location Left Arm Oxygen Delivery Method Room Air Weight Weight: 221 lb Body Mass Index (BMI) 34.6 Physical Exam Const General Appearance: cooperative, comfortable, well kempt and well developed Eyes PERRL and EOMs intact bilaterally Neck no carotid bruits Chest Chest Narrative: She is not tachypneic at rest. Good respiratory effort. There is decreased BS's in the R base but, she has no crackles and no wheezes. The L base has good air exchange and is CTA. Chest: symmetrical chest wall rise Resp Effort and Inspection: able to speak in complete sentences Cardio regular rate, no murmurs and no gallops GI soft to palpation and non-tender GI Narrative: some mild pitting in the flanks BL Extremity Extremity Narrative: The edema of the LE's is mostly non-pitting below mid tibia. The skin is very dry and inelastic. She has a lot of hyperkeratotic skin [place] on the L lateral ankle and distal Left leg. There is some seeping of fluid from the skin due to swelling. There is no erythema and no actual openings in the skin. She also has lymphedema of the RUE and she wears a sleeve to control this. General Extremity: edema; Negative for calf tenderness, clubbing or cyanosis Psych mental status grossly normal, thought process normal, cooperative and affect normal Debridement Note Debridement Note Post-Debridement Measurements and Additional Note: Post-Debridement Measurements/Treatment - Nurse 1 - General Ulcer Assessment Start: 10/07/20 15:09 Freq: Status: Active Protocol: WC.LOWEXT Activity Type Activity Date Activity User E-Sign Co-Sign Detail Recorded Client Recorded Date Recorded By Document 10/07/20 15:10 [facility] [id number] 10/07/20 15:24 [facility] 10/07/20 15:10 - Today's Visit Information Type of service Follow-up Visit (Physician/VASCULAR SURGERY PHYSICIAN ) Arrival Mode Ambulatory Accompanied by Patient Identification Verified (Name & Yes ) Patient Requires Transmission-Based No Precautions Finger Stick Blood Sugar(mg/dl) (if 214 indicated): Blood Sugar Stated by Patient Height and Weight Height 5 ft 7 in Weight 221 lb Weight in Pounds 221.0 lbs Weight Measurement Method Estimated by Patient Body Mass Index (BMI) 34.6 BMI Classification Obese BSA - Eliel 2.11 Vital Signs Temperature (97.8 F-99.1 F) 96.8 F L Temperature Source Temporal Pulse Rate (60-100) 106 H Pulse Location Monitor Respiratory Rate (12-18) 16 Respiratory rate source Observation Oxygen Delivery Method Room Air Blood Pressure (90/60-120/80) 159/63 H Blood Pressure Mean 95 Source Monitor Position Sitting Blood Pressure Location Left Arm History Since Last Visit- (Skip if this is Patient's initial visit) Left Footwear Regular Shoe Right Footwear Regular Shoe Lower Extremity Assessment/ Foot Assessment/ Toe Nail Assessment Right -Posterior Tibial Palpable No -Posterior Tibial Doppler Inaudible -Dorsalis Pedis Palpable No -Dorsalis Pedis Doppler Multiphasic -Hair Growth on Legs No -Hair Growth on Toes No -Temperature of Extremity Warm -Thick Yes -Discolored Yes -Deformed No -Improper Length & Hygeine No Left -Posterior Tibial Palpable No -Posterior Tibial Doppler Inaudible -Dorsalis Pedis Palpable No -Dorsalis Pedis Doppler Multiphasic -Hair Growth on Legs No -Hair Growth on Toes No -Temperature of Extremity Warm -Thick Yes -Discolored Yes -Deformed No -Improper Length & Hygeine No Communication Assessment Preferred language Hebrew 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 Casting Machine 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 Required No Able to Read Yes Able to Write Yes Communication Tools None Right Hearing Abillity Normal Left Hearing Abillity Normal Visual Assistive Devices Glasses Teaching Assessment Preferences Verbal,Written, Audio/Visual, Demonstration Barriers to Learning None Readiness To Learn Excellent Willingness to Engage in Self Management High Activies Readiness to Engage in Self Management High Activities Anxiety Level Calm Cooperation Cooperative Perception Coherent Interest in Health Problem Asks Questions Education Importance Acknowledges Need Does Patient Smoke tobacco or other No substances Smoking Status Never smoker Is Patient Diabetic Yes Functional Assessment Recent Decline in Ability to Perform Denies Any Declines Culture/Holiness/Lifestyle Consultant Cultural/Holiness Needs that may affect No Treatment Plan Teaching: Wound Center *Welcome to the Wound Center -Person Taught Patient,Family -Teaching Method Discussion -Response to teaching Verbalize understanding Welcome to the Wound Care Center English STYLES - Nurse 1 - General Ulcer Measurement Start: 10/07/20 15:09 Freq: Status: Active Protocol: Activity Type Activity Date Activity User E-Sign Co-Sign Detail Recorded Client Recorded Date Recorded By Document 10/07/20 15:10 [facility] [id number] 10/07/20 15:24 [facility] 10/07/20 15:10 Wound Center Nurse 1 Lower Limb Edema Present Yes Right Calf (cm) 40.4 Right Ankle (cm) 25.5 Left Calf (cm) 41 Point of Measurement (cm from the medial 27.6 instep) WC - Nurse 2 - General Ulcer CM Notes Start: 10/07/20 15:09 Freq: Status: Active Protocol: Activity Type Activity Date Activity User E-Sign Co-Sign Detail Recorded Client Recorded Date Recorded By Document 10/07/20 16:06 MW [id number] 10/07/20 16:13 MW 10/07/20 16:06 Pain Scale: 0-10 Numeric Is Patient Pain Free? Yes WC - Nurse 3 - General Ulcer D/C NN Start: 10/07/20 15:09 Freq: Status: Active Protocol: Activity Type Activity Date Activity User E-Sign Co-Sign Detail Recorded Client Recorded Date Recorded By Document 10/07/20 16:20 DL [id number] 10/07/20 16:21 DL 10/07/20 16:20 Wound Care Nurse 3 Right -Multi-Layered Wrap Application Multi-Layer Comp - Bilat ($ ) -Compression Wrap Unna Boot ($) ( single) Treatment Response Procedure Tolerated Well Pain Scale: 0-10 Numeric Is Patient Pain Free? Yes WC - Visit Discharge Discharge Condition Stable Ambulatory Status Ambulatory Transportation Private Auto Notes: Edema only No debridement was completed: No debridement was completed today Charges/Coding Visit Charges Office Visits / Consults: [id number] OV L4 Est Assessment/Plan Assessment/Plan (1) Lymphedema: CODE(S): I89.0 - Lymphedema, not elsewhere classified (2) Nephrotic syndrome: CODE(S): N04.9 - Nephrotic syndrome with unspecified morphologic changes (3) Proteinuria: CODE(S): R80.9 - Proteinuria, unspecified QUALIFIERS: Proteinuria type: unspecified Qualified Code(s): R80.9 - Proteinuria, unspecified (4) Grade I diastolic dysfunction: CODE(S): I51.9 - Heart disease, unspecified (5) DM (diabetes mellitus), type 2, uncontrolled with complications: CODE(S): E11.8 - Type 2 diabetes mellitus with unspecified complications; E11.65 - Type 2 diabetes mellitus with hyperglycemia PLAN: 1. Restrict salt 2. elevate the legs 3. BL unna boots and come for a nurse visit Tuesday to change 4. Ultimately will need Lymphedema pumps to help control the swelling. 5. Dr. Benson to manage the diuretics. 6. Review recent labs 7. Last ECHO was 3 years ago. NL EF and normal PA systolic 8. Follow up with me in 1 week.
[2020-10-10 12:45] VITALS: BP 155/60; PULSE 100; RESP 18; TEMP 36.2; BMI 34.6
[2020-10-14 12:26] VITALS: BP 174/74; PULSE 100; RESP 18; TEMP 36.6; BMI 34.6
--- NOTE | 2020-10-14 13:27 | PN.PCM_ITS ---
History of Present Illness Date of Service: 10/14/20 Chief Complaint: seeping from her legs and discolored scales on the skin of the LE's L>R. History of Wound: Anitra is a 50 YO female with a PMH of Subjective Subjective Anitra denies F/C/S. She injured the R great toe this past week.....stubbed it and there is a small circular opening in the skin. Her has been applying Neosporin and a bandage daily. She tells me today that she saw Dr. Barakat yesterday and her wt has been steadily increasing. She was 206 lbs in April and yesterday she weighed 236. She has orthopnea and PAGE. She has pitting edema of the posterior thighs, flanks and both LE's. The edema distal to the knee is better since she has been wearing BL unna boots. She denies CP, hemoptysis and palpitations. Dr. Mendez increased her Bumex but she is very uncomfortable and the SOB has been getting progressively worse over the past few weeks. She has been compliant with her meds but, she has nephrotic S. And she periodically needs admitted for IV diuretics and sometimes ALB. She sees Dr. Mel Benson for her kidney disease. Objective Data Objective Data Vital Signs: Vital Signs Temp Pulse Resp BP 97.8 F 100 18 174/74 H 10/14/20 12:26 10/14/20 12:26 10/14/20 12:26 10/14/20 12:26 Oxygen Delivery Method Room Air Weight: 221 lb Body Mass Index (BMI) 34.6 Charges/Coding Visit Charges Office Visits / Consults: [id number] OV L3 Est Physical Exam Const alert and oriented x3 General Appearance: cooperative Resp Resp Narrative: She is not tachypneic at rest but, she is with walking. She has diminished BS's in the R base. The left lungs has normal air exchange and is CTA, even in the base. Cardio regular rate and regular rhythm GI GI Narrative: She has pitting edema in the flanks Extremity Extremity Narrative: She has pitting edema to the groin BL......distal to the knee has improved since unna boots are being applied. She has lymphedema and we are trying to get lymphedema pumps for her. The thickened hyperkeratotic skin over the Left ankle laterally is starting to come off with moisturizing and applying unna boots. She has a circular wound on the distal tip of the R great toe due to stubbing it. The center is intact skin but there is a thin rim of opening in the skin around it. No erythema, no increased warmth to touch and no purulent DC. Debridement Note Debridement Note Post-Debridement Measurements and Additional Note: Post-Debridement Measurements/Treatment - Nurse 1 - General Ulcer Assessment Start: 10/07/20 15:09 Freq: Status: Active Protocol: YAMILA Activity Type Activity Date Activity User E-Sign Co-Sign Detail Recorded Client Recorded Date Recorded By Document 10/07/20 15:10 BM [id number] 10/07/20 15:24 BMF Document 10/10/20 12:45 PL [id number] 10/12/20 09:03 PL Document 10/14/20 12:26 PL [id number] 10/14/20 12:41 PL 10/07/20 10/10/20 10/14/20 15:10 12:45 12:26 - Today's Visit Information Type of service Follow-up Visit Nurse-only Follow-up Visit (Physician/AREA FIELD MANAGER Visit (Physician/AREA FIELD MANAGER ) ) Arrival Mode Ambulatory Ambulatory Cane Transfer Assistance None None Accompanied by Patient Identification Verified (Name & Yes Yes Yes ) Patient Requires Transmission-Based No No No Precautions Safety Precautions NA NA Finger Stick Blood Sugar(mg/dl) (if 214 225 indicated): Blood Sugar Stated by Stated by Patient Patient Height and Weight Height 5 ft 7 in Weight 221 lb Weight in Pounds 221.0 lbs Weight Measurement Method Estimated by Patient Body Mass Index (BMI) 34.6 34.6 34.6 BMI Classification Obese Obese Obese BSA - Eliel 2.11 Vital Signs Temperature (97.8 F-99.1 F) 96.8 F L 97.2 F L 97.8 F Temperature Source Temporal Temporal Temporal Pulse Rate (60-100) 106 H 100 100 Pulse Location Monitor Respiratory Rate (12-18) 16 18 18 Respiratory rate source Observation Oxygen Delivery Method Room Air Blood Pressure (90/60-120/80) 159/63 H 155/60 H 174/74 H Blood Pressure Mean (mm Hg) 95 91 107 Source Monitor Position Sitting Blood Pressure Location Left Arm Have you changed medications since your No No last visit? Any new allergies or adverse reactions No No Had a fall/change in ADL's that may No No increase risk of falls Signs or symptoms of abuse and/or No No neglect since last visit Have you been in the hospital since your No No last visit? Has dressing in place as prescribed Yes Yes Has compression in place as prescribed Yes Yes Has offloadiing in place as prescribed N/A N/A Experienced any changes in pain level or No No management History Since Last Visit- (Skip if this is Patient's initial visit) Left Footwear Regular Shoe Right Footwear Regular Shoe Pain Scale: 0-10 Numeric Is Patient Pain Free? Yes Yes Lower Extremity Assessment/ Foot Assessment/ Toe Nail Assessment Right -Posterior Tibial Palpable No -Posterior Tibial Doppler Inaudible -Dorsalis Pedis Palpable No -Dorsalis Pedis Doppler Multiphasic -Hair Growth on Legs No -Hair Growth on Toes No -Temperature of Extremity Warm -Thick Yes -Discolored Yes -Deformed No -Improper Length & Hygeine No Left -Posterior Tibial Palpable No -Posterior Tibial Doppler Inaudible -Dorsalis Pedis Palpable No -Dorsalis Pedis Doppler Multiphasic -Hair Growth on Legs No -Hair Growth on Toes No -Temperature of Extremity Warm -Thick Yes -Discolored Yes -Deformed No -Improper Length & Hygeine No Communication Assessment Preferred language Bengali Heading And Priming Tool Setter Required No Able to Read Yes Able to Write Yes Communication Tools None Right Hearing Abillity Normal Left Hearing Abillity Normal Visual Assistive Devices Glasses Teaching Assessment Preferences Verbal,Written, Audio/Visual, Demonstration Barriers to Learning None Readiness To Learn Excellent Willingness to Engage in Self Management High Activies Readiness to Engage in Self Management High Activities Anxiety Level Calm Cooperation Cooperative Perception Coherent Interest in Health Problem Asks Questions Education Importance Acknowledges Need Does Patient Smoke tobacco or other No substances Smoking Status Never smoker Is Patient Diabetic Yes Functional Assessment Recent Decline in Ability to Perform Denies Any Declines Culture/Protestant/Automatic Driller And Reamer Cultural/Protestant Needs that may affect No Treatment Plan Teaching: Wound Center *Welcome to the Wound Center -Person Taught Patient,Family -Teaching Method Discussion -Response to teaching Verbalize understanding Welcome to the Wound Care Center English STYLES - Nurse 1 - General Ulcer Measurement Start: 10/07/20 15:09 Freq: Status: Active Protocol: Activity Type Activity Date Activity User E-Sign Co-Sign Detail Recorded Client Recorded Date Recorded By Document 10/07/20 15:10 [facility] [id number] 10/07/20 15:24 BM Document 10/14/20 12:26 PL [id number] 10/14/20 12:41 PL 10/07/20 10/14/20 15:10 12:26 #1 Right Gr Toe -Combined with other wound No -Current Size (cm) - Length 1.0 -Current Size (cm) - Width 1.0 -Current Size (cm) - Depth 0.1 -Total Square Cm 1.00 -Date of Last Picture (Recall this 10/14/20 field) -Photo Taken Yes -Epithelialization None Present -Tunneling No -Undermining/Tunneling No -Circular Undermining No -Classification - Thickness Partial Thickness -Exudate Amt Medium -Exudate Type Serosanguineous -Wound Margin Indistinct, Non -Visible -Granulation Amt Large (67-100%) -Granulation Quality [place] -Slough/Fibrin Yes -Necrosis Amt Small (1-33%) -Necrotic Tissue Type Adherent Slough -Texture (Kathryn-wound Skin Appearance) No Abnormality, Excoriation -Color (Kathryn-wound Skin Appearance) No Abnormality -Temperature (Kathryn-wound Skin No Abnormality Appearance) (Pt Warm) -Ulcer Cleansing Rinsed/ Irrigated with Saline -Foul Odor after Cleansing No -Anesthetic Used 4% Lidocaine Solution Wound Center Nurse 1 Lower Limb Edema Present Yes Right Calf (cm) 40.4 38 Point of measurement (cm from the medial 30 instep) Right Ankle (cm) 25.5 24.5 Point of Measurement (cm from the medial 13 instep) Left Calf (cm) 41 40 Point of measurement (cm from the medial 33 instep) Left Ankle (cm) 27 Point of Measurement (cm from the medial 27.6 13 instep) WC - Nurse 2 - General Ulcer CM Notes Start: 10/07/20 15:09 Freq: Status: Active Protocol: Activity Type Activity Date Activity User E-Sign Co-Sign Detail Recorded Client Recorded Date Recorded By Document 10/07/20 16:06 MW [id number] 10/07/20 16:13 MW Document 10/14/20 13:11 [id number] 10/14/20 13:14 10/07/20 10/14/20 16:06 13:11 Wound Center Nurse 2 #1 Right Gr Toe -Correct Patient No -Correct Side, Site, Position No -Correct Procedure No -Procedure Performed No -Wound/Ulcer Outcome Not Healed Pain Scale: 0-10 Numeric Is Patient Pain Free? Yes Yes - Nurse 3 - General Ulcer D/C NN Start: 10/07/20 15:09 Freq: Status: Active Protocol: Activity Type Activity Date Activity User E-Sign Co-Sign Detail Recorded Client Recorded Date Recorded By Document 10/07/20 16:20 DL [id number] 10/07/20 16:21 DL Document 10/10/20 12:45 PL [id number] 10/12/20 09:03 PL Document 10/14/20 13:26 JF [id number] 10/14/20 13:26 10/07/20 10/10/20 10/14/20 16:20 12:45 13:26 #1 Right Gr Toe -Ulcer Cleansing Rinsed/ Irrigated with Saline -Foul Odor after Cleansing No -Primary Dressing Applied Other -Other Dressing atb oint per pablito diversity intern Nurse 3 Bilateral -Multi-Layered Wrap Application Unna Boot - Unna Boot - Bilateral ($) Bilateral ($) -Unna Boots (Bilat) ($) 2 2 Right -Multi-Layered Wrap Application Multi-Layer Comp - Bilat ($ ) -Compression Wrap Unna Boot ($) ( single) Treatment Response Procedure Procedure Tolerated Well Tolerated Well Vital Signs Temperature (97.8 F-99.1 F) 97.2 F L Temperature Source Temporal Pulse Rate (60-100) 100 Respiratory Rate (12-18) 18 Blood Pressure (90/60-120/80) 155/60 H Blood Pressure Mean (mm Hg) 91 Pain Scale: 0-10 Numeric Is Patient Pain Free? Yes Yes Yes - Visit Discharge Discharge Condition Stable Stable Stable Ambulatory Status Ambulatory Ambulatory Ambulatory Transportation Private Auto Private Auto Accompanied by Notes: Edema only No debridement was completed: No debridement was completed today Assessment/Plan Assessment/Plan (1) Diastolic CHF, acute on chronic: CODE(S): I50.33 - Acute on chronic diastolic (congestive) heart failure (2) Anasarca: CODE(S): R60.1 - Generalized edema (3) Lymphedema: CODE(S): I89.0 - Lymphedema, not elsewhere classified (4) Nephrotic syndrome: CODE(S): N04.9 - Nephrotic syndrome with unspecified morphologic changes (5) Grade I diastolic dysfunction: CODE(S): I51.9 - Heart disease, unspecified (6) Traumatic wound: PLAN: Talked with Dr. Up and [facility] acute on chronic diastolic CHF and anasarca. I notified the nursing admissions supervisor of direct admit and she will get a bed. BL unna boots were applied today and she will return to the [facility] in 1 week.
== END 2020-10-15 23:59 ==
LOC: WC 12:30
PROVIDERS: PCP Internal Medicine; Visit Provider Internal Medicine
DX: E11.42 Type 2 diabetes mellitus with diabetic polyneuropathy (principal); I89.0 Lymphedema, not elsewhere classified; E78.5 Hyperlipidemia, unspecified; K21.9 Gastro-esophageal reflux disease without esophagitis; I50.33 Acute on chronic diastolic (congestive) heart failure; I11.0 Hypertensive heart disease with heart failure; F41.9 Anxiety disorder, unspecified; F32.9 Major depressive disorder, single episode, unspecified; Z79.899 Other long term (current) drug therapy; Z87.891 Personal history of nicotine dependence; Z79.4 Long term (current) use of insulin; Z17.1 Estrogen receptor negative status [ER-]; Z85.3 Personal history of malignant neoplasm of breast
CPT/HCPCS: 29580; 29581; 99213; G0463; J1940

== ENCOUNTER 2020-10-14 17:56 | Inpatient (IN) | payer OTHER, SELFPAY ==
[2020-10-14 12:26] VITALS: BMI 34.6
[2020-10-14 17:10] VITALS: BMI 35.8
--- NOTE | 2020-10-14 17:18 | PCM.HP.STD ---
Documented by User: JASMIN Saravia 10/14/20 18:18 HPI - General General Date of Admission: 10/14/20 HPI Narrative VICENTA FLORES, is a 50 F who presents from the wound center where she has been seen for a right great toe ulcer at Dr. Begum's direction due to a 30 pound weight gain and increased edema and shortness of breath. Patient states that she has been steadily gaining weight and having increased edema since April. Patient sees Dr. Barakat and received chemotherapy today. Patient also states that Dr. Barakat recently increased her Bumex but the edema has continued to increase. Patient complains of shortness of breath with exertion and swelling in bilateral lower extremities despite the use of Unna boots patient denies fever, chills, cough, nausea, vomiting. [facility] Medical History (Updated 10/14/20 @ 17:28 by Isabell iGbbs) Anemia Breast cancer Chronic pain Diabetes Fibromyalgia GERD (gastroesophageal reflux disease) Hyperlipemia Hypertension Lymphedema Nephrotic syndrome Neuropathy [place] node Home Medications valacyclovir 500 mg PO DAILY PRN PRN 02/12/13 [History Last Taken 11/16/17] bumetanide 2 mg tablet 4 mg PO BID 11/06/19 [History Last Taken 10/14/20] cholestyramine (with sugar) 4 gram oral powder 4 g PO TID PRN g 11/06/19 [History Last Taken Unknown] diphenoxylate-atropine 2.5 mg-0.025 mg tablet 2 tab PO .QID PRN tab 11/06/19 [History Last Taken Unknown] methadone 5 mg tablet 5 mg PO BID tab 11/06/19 [History Last Taken 10/14/20] omeprazole 20 mg tablet,delayed release 20 mg PO DAILY 11/06/19 [History Last Taken 10/14/20] timolol 0.5 % eye drops 1 drp EACH EYE QHS 11/06/19 [History Last Taken 10/13/20] atorvastatin 40 mg PO QHS 03/11/20 [History Last Taken 10/13/20] fluticasone propionate 2 spray INTRANASAL DAILY PRN 10/14/20 [History Last Taken Unknown] insulin glargine 24 unit SC QHS 10/14/20 [History Last Taken 10/13/20] insulin lispro [Humalog KwikPen Insulin] 15 unit SUBCUT TIDCM 10/14/20 [History Last Taken 10/13/20] lorazepam 1 mg PO BID PRN 10/14/20 [History Last Taken Unknown] losartan 100 mg PO DAILY 10/14/20 [History Last Taken 10/14/20] nitrofurantoin 100 mg PO BID PRN 10/14/20 [History Last Taken Unknown] olanzapine 5 mg PO QHS PRN 10/14/20 [History Last Taken Unknown] ondansetron HCl 8 mg PO Q8H PRN 10/14/20 [History Last Taken Unknown] potassium chloride 10 mEq capsule,extended release 20 meq PO DAILY #180 cap 10/14/20 [Rx Last Taken 10/14/20] sertraline 100 mg PO DAILY 10/14/20 [History Last Taken 10/14/20] Allergy/AdvReac Type Severity Reaction Status Date / Time No Known Allergies Allergy Verified 06/06/20 09:17 Family History Mother Breast cancer Diabetes Aunt Skin cancer Father Heart disease Hypertension Brother Asthma Grandmother Colon cancer Surgical History (Updated 10/14/20 @ 17:30 by Isabell Gibbs) History of hysterectomy History of lumpectomy of right breast History of partial mastectomy of right breast Social History household members: spouse housing: house current occupational status: disabled pets and animals: Yes do you think of yourself as: straight/heterosexual current gender identity: female Smoking Status: Former smoker quit date: 04/18/10 Tobacco: How many years used: 10 alcohol intake: current alcohol intake frequency: holidays/special occasions only substance use type: does not use what type of physical activity do you participate in: none ROS Constitutional Constitutional: Reports fatigue; Denies anorexia, chills, fever(s) or weakness Cardiovascular Cardiovascular: Denies chest pain, edema or palpitations Respiratory/Chest Respiratory/Chest: Reports dyspnea on exertion; Denies cough or hemoptysis Gastrointestinal Gastrointestinal: Denies abdominal pain, constipation, diarrhea, nausea or vomiting Genitourinary Genitourinary: Denies dysuria Musculoskeletal Musculoskeletal: Denies back pain, extremity pain, joint pain or joint stiffness Integumentary Integumentary: Reports dry skin Neurologic Neurologic: Denies abnormal gait, abnormal speech, confusion, dizziness or focal weakness Psychiatric Psychiatric: Denies anxiety or depression Endocrine Endocrinology: Denies change in body appearance Hematologic/Lymphatic Hematologic/Lymphatic: Denies easy bleeding or easy bruising Vital Signs Vital Signs Vital Signs: Weight Weight: 228 lb 9.91 oz Body Mass Index (BMI) 35.8 Physical Exam Const alert, oriented x3 and no apparent distress General Appearance: cooperative HEENT normocephalic and head/scalp atraumatic Eyes conjunctivae normal and no scleral icterus Neck no lymphadenopathy, supple and no JVD General: trachea midline Resp normal respiratory effort and normal air movement Auscultation: diminished lung sounds Cardio regular rate, regular rhythm, S1 normal heart sound and S2 normal heart sound GI normal to inspection, nondistended, normoactive bowel sounds, soft to palpation and non-tender Extremity full ROM and normal capillary refill General Extremity: edema bilateral upper extremity moderate and lower extremity Details: severe and no tenderness to palpation of joints or extremities Skin General Skin Exam: no breakdown and turgor normal Lesions: no lesions Rashes: no rashes Neuro no focal motor deficits and no sensory deficits noted Speech: speech normal Motor Exam: general weakness Psych thought process normal, cooperative and affect normal Appearance: appropriate Results Lab / Micro Data Result Diagrams: 10/14/20 18:36 10/14/20 18:36 Assessment & Plan Assessment/Plan (1) Anasarca: (2) Diastolic CHF, acute on chronic: PLAN: 1. Diastolic CHF, acute on chronic -Admit to PCU for cardiac monitoring -Per labs completed at [facility] BNP was 1956 this morning, sodium 137, potassium 4.4, chloride 104. BUN 33, creatinine 0.90, consistent with patient baseline -Will initiate patient on a Lasix drip 10 mg/hr, hold Bumex p.o. -CBC trend white blood cell count and hemoglobin and hematocrit and CMP ordered every morning, trend electrolytes, BUN and creatinine -Trend cardiac enzymes -Chest x-ray ordered -Echo ordered, per Dr. Barakat patient was supposed to get a outpatient echocardiogram however since patient has been admitted will do while inpatient. -Oxygen per protocol -PT OT to eval and treat due to increased weakness from edema -Daily weights along with strict intake and output 2. Anasarca -Continue Unna boots to bilateral lower extremities, initiated at wound clinic -Elevate bilateral lower and upper extremities due to increased swelling 3. Invasive ductal carcinoma breast -Follows with Dr. Barakat receive chemotherapy today -Chemo precautions ordered 4. Hypertension -Vital signs currently stable -Vital signs per protocol, trend BP and heart rate -Continue home regimen of antihypertensives 5. Hyperlipidemia -Continue atorvastatin 6. Diabetes mellitus type 2 with neuropathy -Continue home insulin regimen -AC at bedtime blood sugars with sliding scale insulin also ordered due to elevated glucose on initial CMP 7. Nephrotic syndrome -Follows with Dr. Benson 8. Normocytic normochromic anemia -Hemoglobin currently 8.5, consistent with patient's baseline DVT prophylaxis-subcu Lovenox This patient was seen by JASMIN Saravia under the supervision of Dr. pU. Documented by User: Dr. Austin Up MD 10/14/20 20:02 HPI - General General Date of Admission: 10/14/20 [facility] Medical History (Updated 10/14/20 @ 17:28 by Isabell Gibbs) Anemia Breast cancer Chronic pain Diabetes Fibromyalgia GERD (gastroesophageal reflux disease) Hyperlipemia Hypertension Lymphedema Nephrotic syndrome Neuropathy [place] node Home Medications valacyclovir 500 mg PO DAILY PRN PRN 02/12/13 [History Last Taken 11/16/17] bumetanide 2 mg tablet 4 mg PO BID 11/06/19 [History Last Taken 10/14/20] cholestyramine (with sugar) 4 gram oral powder 4 g PO TID PRN g 11/06/19 [History Last Taken Unknown] diphenoxylate-atropine 2.5 mg-0.025 mg tablet 2 tab PO .QID PRN tab 11/06/19 [History Last Taken Unknown] methadone 5 mg tablet 5 mg PO BID tab 11/06/19 [History Last Taken 10/14/20] omeprazole 20 mg tablet,delayed release 20 mg PO DAILY 11/06/19 [History Last Taken 10/14/20] timolol 0.5 % eye drops 1 drp EACH EYE QHS 11/06/19 [History Last Taken 10/13/20] atorvastatin 40 mg PO QHS 03/11/20 [History Last Taken 10/13/20] fluticasone propionate 2 spray INTRANASAL DAILY PRN 10/14/20 [History Last Taken Unknown] insulin glargine 24 unit SC QHS 10/14/20 [History Last Taken 10/13/20] insulin lispro [Humalog KwikPen Insulin] 15 unit SUBCUT TIDCM 10/14/20 [History Last Taken 10/13/20] lorazepam 1 mg PO BID PRN 10/14/20 [History Last Taken Unknown] losartan 100 mg PO DAILY 10/14/20 [History Last Taken 10/14/20] nitrofurantoin 100 mg PO BID PRN 10/14/20 [History Last Taken Unknown] olanzapine 5 mg PO QHS PRN 10/14/20 [History Last Taken Unknown] ondansetron HCl 8 mg PO Q8H PRN 10/14/20 [History Last Taken Unknown] potassium chloride 10 mEq capsule,extended release 20 meq PO DAILY #180 cap 10/14/20 [Rx Last Taken 10/14/20] sertraline 100 mg PO DAILY 10/14/20 [History Last Taken 10/14/20] Allergy/AdvReac Type Severity Reaction Status Date / Time No Known Allergies Allergy Verified 06/06/20 09:17 Family History Mother Breast cancer Diabetes Aunt Skin cancer Father Heart disease Hypertension Brother Asthma Grandmother Colon cancer Surgical History (Updated 10/14/20 @ 17:30 by Isabell Gibbs) History of hysterectomy History of lumpectomy of right breast History of partial mastectomy of right breast Social History household members: spouse housing: house current occupational status: disabled pets and animals: Yes do you think of yourself as: straight/heterosexual current gender identity: female Smoking Status: Former smoker quit date: 04/18/10 Tobacco: How many years used: 10 alcohol intake: current alcohol intake frequency: holidays/special occasions only substance use type: does not use what type of physical activity do you participate in: none Results Lab / Micro Data Result Diagrams: 10/14/20 18:36 10/14/20 18:36 Charges/Coding Addendum Addendum: Dr. Up: I personally reviewed the chart and examined the patient, and agree with the above findings. 50-year-old female with a stage IV breast cancer undergoing chemo presents for shortness of breath and weight gain. She is gained about 22 pounds since April with increasing edema secondary to her nephrotic syndrome. Her oncologist would like us to obtain an echo for evaluation secondary to her chemo. We will initiate her on a Lasix drip and monitor her renal function closely if necessary can get her car coupler involved. Visit Charges Inpatient E&M: 78454 Init Hosp L3
[2020-10-14 17:38] VITALS: BP 150/64; PULSE 90; RESP 16; TEMP 36.9; O2SAT 95
--- NOTE | 2020-10-14 17:50 | ECHOD_ITS ---
Reason For Study: CHF Procedure This was a 2D Doppler, Color Flow transthoracic echocardiogram. Myocardial strain analysis was performed in this exam to aid in the assessment of cardiac function. Exam performed portable in patient room. Left Ventricle Normal LV size. Left ventricular systolic function is lower limits of normal. The estimated ejection fraction is 50 %. There is borderline global hypokinesis of the left ventricle. Right Ventricle Normal RV size. Normal systolic function. Atria Normal left atrium. Normal right atrium. Mitral Valve Normal mitral valve. Mild (1+) eccentric mitral valve insufficiency. Tricuspid Valve Normal tricuspid valve. Aortic Valve Normal aortic valve. Trisinus/trileaflet aortic valve. Pulmonic Valve Normal pulmonic valve. Great Vessels Normal aortic root. The pulmonary artery is normal size. Normal inferior vena cava. Pericardium/Pleural No pericardial effusion. MMode/2D Measurements & Calculations LVIDd: 4.3 cm IVSd: 1.6 cm Ao root diam: 3.1 cm LVIDs: 3.3 cm LVPWd: 1.6 cm LA dimension: 4.0 cm RVDd: 3.5 cm FS: 23.4 % LAV(MOD-bp): 82.9 ml LVAd ap4: 31.1 cm2 SV(MOD-sp4): 40.8 ml LAV(MOD-bp) Indexed: 38.8 ml/m2 LVLd ap4: 8.5 cm LAV(MOD-sp2): 70.7 ml EDV(MOD-sp4): 94.9 ml LAV(MOD-sp4): 88.6 ml EDV(sp4-el): 96.7 ml LVAs ap4: 21.0 cm2 LVLs ap4: 6.7 cm ESV(MOD-sp4): 54.1 ml ESV(sp4-el): 55.7 ml EF(MOD-sp4): 43.0 % EF(sp4-el): 42.4 % SV(sp4-el): 41.0 ml LA A4 area: 25.0 cm2 RA A4 area: 12.0 cm2 Time Measurements MV dec time: 0.22 sec Doppler Measurements & Calculations MV E max steve: 109.1 cm/sec Lat Peak E' Steve: 7.6 cm/sec Med Peak E' Steve: 6.9 cm/sec MV A max steve: 100.7 cm/sec E/E' lat: 14.3 E/E' med: 15.8 MV E/A: 1.1 MV V2 max: 163.1 cm/sec MV P1/2t max steve: 163.8 cm/sec Ao V2 max: 132.7 cm/sec MV max P.6 mmHg MV P1/2t: 50.8 msec Ao max P.0 mmHg MV V2 mean: 83.9 cm/sec MV mean P.4 mmHg MV dec slope: 943.6 cm/sec2 MV V2 VTI: 33.2 cm MVA(P1/2t): 4.3 cm2 LV V1 max: 80.4 cm/sec MR max steve: 402.8 cm/sec PA V2 max: 80.9 cm/sec LV V1 max P.6 mmHg MR max P.9 mmHg TR max steve: 402.8 cm/sec TR max P.9 mmHg ECHO/Echo Complete Interpretation Summary Normal LV size. Left ventricular systolic function is lower limits of normal. The estimated ejection fraction is 50 %. There is borderline global hypokinesis of the left ventricle. Mild (1+) eccentric mitral valve insufficiency. The global longitudinal strain is moderately abnormal. The global longitudinal strain = -12.7% (abnormal). Ordering Physician: Leticia Marin Referring Physician: Joe Law Performed By: William Fernandes RCS
[2020-10-14 18:11] VITALS: PULSE 92
--- NOTE | 2020-10-14 18:23 | RAD_ITS ---
INDICATION: SOB EXAMINATION/TECHNIQUE: X-RAY - XR Chest 2 Views COMPARISON: 06/02/2020. FINDINGS: Bilateral interstitial and airspace opacities, most notable in the right lung. Few scattered nodular opacities as well. The cardiomediastinal silhouette is unremarkable. Left IJ chest port with tip in the low SVC. Questionable trace right pleural effusion. No pneumothorax. Degenerative changes of the thoracic spine. RAD/Chest PA and Lateral IMPRESSION: Bilateral interstitial and airspace opacities may represent edema and/or infection. Few scattered nodular opacities could be related to patient''s known lung cancer. Questionable trace right pleural effusion. Electronically Signed: Issac Pedroza MD at 19:10 EDT Tel , Service support ,
[2020-10-14 18:50] LABS: Absolute Lymphocyte Count 0.83 X10^3/uL (0.83-4.51); Absolute Neutrophil Count 5.8 X10^3/uL (2.0-7.7); Basophil# 0.03 X10^3/uL; Basophil% 0.4 % (0-1); Eosinophil# 0.15 X10^3/uL; Hematocrit 27.2 % (37-47); Hemoglobin 8.4 g/dL (12.0-15.0); Lymphocyte # 0.83 X10^3/ul (0.83-4.51); Lymphocyte % 11.3 % (19-41); Mean Corp Hgb Conc 30.9 g/dL (32-36); Mean Corpuscular Hgb 29.7 pg (27.0-32.0); Mean Corpuscular Volume 96.1 fL (81-99); Mean Platelet Vol. 9.3 fl (6.2-12.0); Monocyte# 0.51 X10^3/uL; NRBC Flagged by Analyzer 0 % (0-5); Neutrophil # 5.76 X10^3/uL (2.7-7.7); Neutrophil % 78.6 % (47-70); Platelet Count 309 K/mm3 (150-450); RBC Distribution Width CV 14.5 % (11.6-14.6); Red Blood Count 2.83 M/mm3 (4.2-5.4); White Blood Count 7.3 K/mm3 (4.4-11.0)
[2020-10-14 19:00] VITALS: PULSE 92
[2020-10-14] MEDS: Furosemide 500 MG in Empty Viaflex 50 mL 1 EACH CONT INF (19:04)
[2020-10-14 19:12] VITALS: RESP 20; O2SAT 94; O2SAT 98
[2020-10-14 19:29] LABS: Anion Gap 7 (5-15); BUN 31 mg/dL (7-18); BUN/Creat Ratio 30.1 RATIO (10-20); Chloride 103 mmol/L (98-107); Creatinine, Serum 1.03 mg/dL (0.55-1.02); EST Glomerular Filtration Rate 60 mL/min (>60); Est Glom Filt Rate - Afr Amer 73 mL/min (>60); Estimated Creatinine Clearance 62.84 ml/min; Glucose 286 mg/dL (74-106); Potassium 3.9 mmol/L (3.5-5.1); Sodium Level 138 mmol/L (136-145)
[2020-10-14] MEDS: Atorvastatin Calcium 40 MG Tablet PO (20:35)
[2020-10-14 20:40] VITALS: BP 166/75; PULSE 94; RESP 18; TEMP 36.9; O2SAT 97
[2020-10-14] MEDS: Insulin Lispro 100 UNIT/ML INSULN.PEN SC (20:44)
[2020-10-14] MEDS: Timolol 0.5% 5ML OPTH.BTL 1 DRP EACH EYE (21:23)
[2020-10-14] MEDS: OLANZapine 2.5 MG Tablet 5 MG PO (21:24)
[2020-10-14 21:25] LABS: Troponin-I HS 13.5 pg/mL (3.0-53.7)
[2020-10-14 22:50] LABS: Bedside Glucose 222 mg/dL (70-110)
[2020-10-15] VITALS (11 sets, daily range): BP systolic 118–159; BP diastolic 58–79; PULSE 78–100; RESP 12–16; TEMP 36–37.2; O2SAT 96–99
[2020-10-15 01:00] LABS: Troponin-I HS 10.9 pg/mL (3.0-53.7)
--- NOTE | 2020-10-15 05:55 | EKG12_ITS ---
Test Reason : AM EKG Blood Pressure : / mmHG Vent. Rate : 083 BPM Atrial Rate : 083 BPM P-R Int : 158 ms QRS Dur : 086 ms QT Int : 406 ms P-R-T Axes : 063 068 116 degrees QTc Int : 477 ms Normal sinus rhythm Nonspecific T wave abnormality Prolonged QT Abnormal ECG When compared with ECG of 08-MAR-2020 05:54, Vent. rate has decreased BY 49 BPM Nonspecific T wave abnormality now evident in Lateral leads Confirmed by ROBERTO VELAZQUEZ, SCARLETT ([id number]), scientific publications editor MICHELLE KOO ([id number]) on 10/15/2020 1:28:15 PM Referred By: EVE Confirmed By:SCARLETT MEJIA MD
[2020-10-15 07:01] LABS: Absolute Neutrophil Count 4.2 X10^3/uL (2.0-7.7); Basophil# 0.04 X10^3/uL; Basophil% 0.7 % (0-1); Eosinophil# 0.15 X10^3/uL; Eosinophils% 2.7 % (0-5); Hematocrit 26.3 % (37-47); Mean Corp Hgb Conc 30.4 g/dL (32-36); Mean Corpuscular Hgb 29.7 pg (27.0-32.0); Mean Corpuscular Volume 97.8 fL (81-99); Mean Platelet Vol. 9.7 fl (6.2-12.0); Monocyte# 0.42 X10^3/uL; Monocyte% 7.7 % (0-10); NRBC Flagged by Analyzer 0 % (0-5); Neutrophil % 76.8 % (47-70); POSITIVE DIFFERENTIAL YES; Platelet Count 308 K/mm3 (150-450); RBC Distribution Width CV 14.6 % (11.6-14.6); RBC Distribution Width SD 52.3 fl (35.1-43.9); Red Blood Count 2.69 M/mm3 (4.2-5.4); White Blood Count 5.5 K/mm3 (4.4-11.0)
[2020-10-15 07:04] LABS: Differential Indicated SCAN CRITERIA MET
[2020-10-15 07:34] LABS: ALB/GLOB Ratio 0.6 RATIO (0.9-2.4); AST(SGOT) 15 U/L (15-37); Alanine Aminotransfer ALT/SGPT 29 U/L (13-56); Albumin, Serum 2.2 g/dL (3.2-5.0); Alkaline Phosphatase 127 U/L (45-117); Anion Gap 4 (5-15); BUN 30 mg/dL (7-18); BUN/Creat Ratio 30.9 RATIO (10-20); Chloride 103 mmol/L (98-107); Creatinine, Serum 0.97 mg/dL (0.55-1.02); EST Glomerular Filtration Rate 64 mL/min (>60); Est Glom Filt Rate - Afr Amer 78 mL/min (>60); Estimated Creatinine Clearance 66.72 ml/min; Globulin 3.6 g/dL (2.2-4.2); Glucose 129 mg/dL (74-106); Potassium 3.9 mmol/L (3.5-5.1); Protein, Total 5.8 g/dL (6.4-8.2); Sodium Level 140 mmol/L (136-145)
[2020-10-15] MEDS: Potassium Chloride Oral Tablet 20 MEQ PO (08:28)
[2020-10-15 09:50] LABS: Bedside Glucose 106 mg/dL (70-110)
--- NOTE | 2020-10-15 10:22 | CASEMGMT ---
KERMIT TELLEZ assessment: Face to Face with patient for initial transition planning/care coordination assessment. KERMIT TELLEZ introduced self and role at [facility], pt voices understanding and consents to assessment. Pt is sitting up on side of bed in no distress. Pt is A/Ox4 and answers all questions appropriately. Pt with flat affect, head down and little to no eye contact. Pt currently getting cancer treatment. Jose Eduardo RICH aware. Care providers, pharmacy, and demographics verified. Presentation: Direct admit from the wound center for increased swelling despite increased of bumex Admitting dx: CHF exac, anasarca PCP: Ani Specialists: Marcelino nephmaría; Roshni, onc Preferred Pharmacy: [facility] Insurance: MMO Prescription Benefit: MMO Living Will/HPOA: Pt does have LW and it is on file at [facility]. Pt is unsure is she has HPOA and declines further AD info. LNOK: Toshia Wilcox, Living Arrangements: Pt states lives with in duplex with stair lift and states some concerns caring for self at home when is at work. Pt states helps with ADL's when he is there. Transportation: Pt states /fiend drives and states no transportation concerns. DME/HHC: Pt states has the following DME: stair lift, bed rail, cane, walker, raised toilet seat, and shower chair. Pt declines need for any further DME. Pt states no hx of HHC or SNF. Pt states some concerns with going home at time of discharge. Pt is currently unemployed. Pt states does not smoke cigarettes or drink ETOH. Pt voices concerns with being at home alone and requests any resources for same. Jose Eduardo RICH aware. CM to follow for PT/OT evals and any further discharge planning/needs. Advised pt to ask for CM if any further questions/concerns/needs arise, voices understanding. Pt Goal: Home Plan: Home, pending PT/OT evals. [place] KERMIT TELLEZ
--- NOTE | 2020-10-15 10:22 | NURSING ---
wound photo: right great toe
[2020-10-15] MEDS: Pantoprazole Sodium 20 MG Tablet PO (11:01)
[2020-10-15] MEDS: Losartan Potassium 100 MG Tablet PO (11:01)
[2020-10-15] MEDS: Sertraline 100 MG Tablet PO (11:01)
[2020-10-15] MEDS: Enoxaparin 40 MG/0.4 ML Syringe SC (11:02)
[2020-10-15] MEDS: Insulin Lispro 100 UNIT/ML INSULN.PEN 15 UNIT SC (13:04)
[2020-10-15 13:26] LABS: Bedside Glucose 141 mg/dL (70-110)
--- NOTE | 2020-10-15 14:12 | CHAPLAIN ---
Type of Pastoral Visit _x__ Initial Visit ___ Follow-up Visit ___ On-call Visit ___ General Patient Visit ___ Spiritual Assessment ___ Family Conference ___ Bereavement ___ Rapid Response ___ Code Blue ___ Other (describe below) Pastoral Care Referral From _x__ Patient ___ Family ___ Nurse ___ Physician ___ Tree Trimmer ___ Abrasive Water Jet Cutter Operator ___ Other (describe below) Sacrament/Intervention _x__ Active listening ___ Anointing ___ Cheondoism ___ Bereavement ___ Communion ___ Elizabeth exploration ___ ___ Life review _x__ Prayer ___ Reconciliation ___ Sacrament of Sick _x__ Supportive presence ___ Wedding ___ Other (describe below) Pastoral Comments mother of patient is with her; pt describes her condition and status of illness; prayer and presence welcomed
[2020-10-15 16:11] LABS: Bedside Glucose 63 mg/dL (70-110)
[2020-10-15 16:11] LABS: Bedside Glucose 86 mg/dL (70-110)
--- NOTE | 2020-10-15 17:00 | PCM.PN.HOSP ---
Subjective Subjective Patient was seen and examined today, her echocardiogram showed a normal EF, patient's labs today showed a BUN of 30, creatinine was normal. Patient continues on IV Lasix for diuresis. I talked briefly with nephrology about her care today, nephrology states that they do not need to see her during this hospitalization unless there is a problem related to their care. Objective Data Objective Data Vital Signs: Vital Signs Temp Pulse Resp BP Pulse Ox 98.4 F 100 12 159/71 H 99 10/15/20 15:07 10/15/20 15:12 10/15/20 15:07 10/15/20 15:07 10/15/20 15:07 Oxygen Delivery Method Room Air Weight: 102.4 kg Body Mass Index (BMI) 35.8 Intake & Output: Intake and Output for Last 24 Hours 10/13/20 10/14/20 10/15/20 23:59 23:59 23:59 Intake Total 480 / 480 Balance 480 / 480 Lab / Micro Data Result Diagrams: 10/15/20 05:55 10/15/20 05:55 Labs: Laboratory Results - last 24 hr 10/14/20 10/14/20 10/14/20 18:36 18:36 20:33 WBC 7.3 RBC 2.83 L Hgb 8.4 L Hct 27.2 L MCV 96.1 MCH 29.7 MCHC 30.9 L RDW Std Deviation 51.0 H RDW Coeff of Cori 14.5 Plt Count 309 MPV 9.3 Immature Gran % (Auto) 0.700 Neut % (Auto) 78.6 H Lymph % (Auto) 11.3 L [place] % (Auto) 7.0 Eos % (Auto) 2.0 Baso % (Auto) 0.4 Absolute Neuts (auto) 5.8 Absolute Lymphs (auto) 0.83 Nucleated RBC % 0 Differential Comment Sodium 138 Potassium 3.9 Chloride 103 Carbon Dioxide 28.0 Anion Gap 7 BUN 31 H Creatinine 1.03 H Estim Creat Clear Calc 62.84 Est GFR (MDRD) Af Amer 73 Est GFR (MDRD) Non-Af 60 BUN/Creatinine Ratio 30.1 H Glucose 286 H Calcium 8.0 L Total Bilirubin AST ALT Alkaline Phosphatase Troponin I High Sens 13.0 Total Protein Albumin Globulin Albumin/Globulin Ratio POC Glucose 222 H 10/14/20 10/15/20 10/15/20 20:54 00:30 05:55 WBC 5.5 RBC 2.69 L Hgb 8.0 L Hct 26.3 L MCV 97.8 MCH 29.7 MCHC 30.4 L RDW Std Deviation 52.3 H RDW Coeff of Cori 14.6 Plt Count 308 MPV 9.7 Immature Gran % (Auto) 1.100 H Neut % (Auto) 76.8 H Lymph % (Auto) 11.0 L [place] % (Auto) 7.7 Eos % (Auto) 2.7 Baso % (Auto) 0.7 Absolute Neuts (auto) 4.2 Absolute Lymphs (auto) 0.60 L Nucleated RBC % 0 Differential Comment COMMENT Sodium Potassium Chloride Carbon Dioxide Anion Gap BUN Creatinine Estim Creat Clear Calc Est GFR (MDRD) Af Amer Est GFR (MDRD) Non-Af BUN/Creatinine Ratio Glucose Calcium Total Bilirubin AST ALT Alkaline Phosphatase Troponin I High Sens 13.5 10.9 Total Protein Albumin Globulin Albumin/Globulin Ratio POC Glucose 10/15/20 10/15/20 10/15/20 05:55 09:35 13:02 WBC RBC Hgb Hct MCV MCH MCHC RDW Std Deviation RDW Coeff of Cori Plt Count MPV Immature Gran % (Auto) Neut % (Auto) Lymph % (Auto) [place] % (Auto) Eos % (Auto) Baso % (Auto) Absolute Neuts (auto) Absolute Lymphs (auto) Nucleated RBC % Differential Comment Sodium 140 Potassium 3.9 Chloride 103 Carbon Dioxide 33.0 H Anion Gap 4 L BUN 30 H Creatinine 0.97 Estim Creat Clear Calc 66.72 Est GFR (MDRD) Af Amer 78 Est GFR (MDRD) Non-Af 64 BUN/Creatinine Ratio 30.9 H Glucose 129 H Calcium 8.0 L Total Bilirubin 0.20 AST 15 ALT 29 Alkaline Phosphatase 127 H Troponin I High Sens Total Protein 5.8 L Albumin 2.2 L Globulin 3.6 Albumin/Globulin Ratio 0.6 L POC Glucose 106 141 H 10/15/20 10/15/20 15:36 16:02 WBC RBC Hgb Hct MCV MCH MCHC RDW Std Deviation RDW Coeff of Cori Plt Count MPV Immature Gran % (Auto) Neut % (Auto) Lymph % (Auto) [place] % (Auto) Eos % (Auto) Baso % (Auto) Absolute Neuts (auto) Absolute Lymphs (auto) Nucleated RBC % Differential Comment Sodium Potassium Chloride Carbon Dioxide Anion Gap BUN Creatinine Estim Creat Clear Calc Est GFR (MDRD) Af Amer Est GFR (MDRD) Non-Af BUN/Creatinine Ratio Glucose Calcium Total Bilirubin AST ALT Alkaline Phosphatase Troponin I High Sens Total Protein Albumin Globulin Albumin/Globulin Ratio POC Glucose 63 L 86 Radiography Diagnostic Testing: Radiology Impression Chest X-Ray 10/14/20 18:23 IMPRESSION: Bilateral interstitial and airspace opacities may represent edema and/or infection. Few scattered nodular opacities could be related to patient''s known lung cancer. Questionable trace right pleural effusion. Electronically Signed: Issac Pedroza MD at 19:10 EDT Tel , Service support , Physical Exam Const alert, oriented x3, no apparent distress and healthy appearing General Appearance: cooperative, well kempt and well developed Orientation / Consciousness: awake, oriented to person, oriented to place and oriented to time Exam Limitations: no limitations HEENT normocephalic, head/scalp atraumatic and moist oral mucous membranes Head and Scalp: normocephalic Eyes PERRL, EOMs intact bilaterally and conjunctivae normal Neck nuchal rigidity, supple, no JVD, thyroid normal and no carotid bruits General: trachea midline Resp normal respiratory effort, no retractions, no use of accessory muscles and clear to auscultation bilaterally Auscultation: Negative for rales, rhonchi or wheezes Cardio regular rate, regular rhythm, S1 normal heart sound, S2 normal heart sound, no murmurs, no rub and no gallops GI normal to inspection, nondistended, normoactive bowel sounds, soft to palpation, non-tender and non-distended Extremity no clubbing, cyanosis or edema Skin no rashes or lesions noted General Skin Exam: no breakdown Neuro oriented x3, CN's II-XII intact bilaterally, no focal motor deficits and no sensory deficits noted Sensorium / Orientation: awake and alert Speech: speech normal Psych thought process normal and affect normal Assessment & Plan Assessment/Plan (1) Anasarca: PLAN: 1. Diastolic congestive heart failure-acute on chronic, continue IV Lasix 2. Anasarca due to nephrotic proteinuria-continue IV Lasix #3 proteinuria-nephrotic range #4 breast cancer #5 anemia secondary to chemotherapy for breast cancer-CBC will be rechecked tomorrow #6 type 2 diabetes #7 essential hypertension #8 hyperlipidemia Charges/Coding Visit Charges Inpatient E&M: 88264 Subs Hosp L2
[2020-10-15] MEDS: Diphenoxylate/Atrop 1 Tablet PO (18:21)
[2020-10-15] MEDS: OLANZapine 2.5 MG Tablet 5 MG PO (20:26)
[2020-10-15] MEDS: Atorvastatin Calcium 40 MG Tablet PO (20:31)
[2020-10-15] MEDS: Timolol 0.5% 5ML OPTH.BTL 1 DRP EACH EYE (20:34)
[2020-10-15] MEDS: Insulin Lispro 100 UNIT/ML INSULN.PEN SC (22:50)
[2020-10-15 22:56] LABS: Bedside Glucose 170 mg/dL (70-110)
[2020-10-16] VITALS (9 sets, daily range): BP systolic 118–134; BP diastolic 50–72; PULSE 81–88; RESP 16–18; TEMP 36.7–38.2; O2SAT 94–99
[2020-10-16] MEDS: Acetaminophen 325 MG Tablet 650 MG PO (02:12)
[2020-10-16 05:15] LABS: Absolute Lymphocyte Count 0.21 X10^3/uL (0.83-4.51); Absolute Neutrophil Count 2.3 X10^3/uL (2.0-7.7); Basophil# 0.01 X10^3/uL; Basophil% 0.4 % (0-1); Eosinophil# 0.03 X10^3/uL; Eosinophils% 1.1 % (0-5); Hematocrit 25.8 % (37-47); Hemoglobin 8.1 g/dL (12.0-15.0); Lymphocyte # 0.21 X10^3/ul (0.83-4.51); Lymphocyte % 7.6 % (19-41); Mean Corp Hgb Conc 31.4 g/dL (32-36); Mean Corpuscular Hgb 30.6 pg (27.0-32.0); Mean Corpuscular Volume 97.4 fL (81-99); Mean Platelet Vol. 9.2 fl (6.2-12.0); Monocyte# 0.23 X10^3/uL; Monocyte% 8.3 % (0-10); NRBC Flagged by Analyzer 0 % (0-5); Neutrophil # 2.28 X10^3/uL (2.7-7.7); Neutrophil % 81.9 % (47-70); POSITIVE DIFFERENTIAL YES; Platelet Count 265 K/mm3 (150-450); RBC Distribution Width CV 14.5 % (11.6-14.6); RBC Distribution Width SD 51.4 fl (35.1-43.9); Red Blood Count 2.65 M/mm3 (4.2-5.4); White Blood Count 2.8 K/mm3 (4.4-11.0)
[2020-10-16] MEDS: Ibuprofen 600 MG Tablet PO (05:17)
[2020-10-16 05:25] LABS: Differential Indicated SCAN CRITERIA MET
[2020-10-16 05:27] LABS: Anion Gap 7 (5-15); BUN 34 mg/dL (7-18); BUN/Creat Ratio 25.4 RATIO (10-20); Calcium,Total 7.7 mg/dL (8.5-10.1); Chloride 99 mmol/L (98-107); Creatinine, Serum 1.34 mg/dL (0.55-1.02); EST Glomerular Filtration Rate 44 mL/min (>60); Est Glom Filt Rate - Afr Amer 54 mL/min (>60); Glucose 171 mg/dL (74-106); Potassium 3.8 mmol/L (3.5-5.1); Sodium Level 139 mmol/L (136-145)
[2020-10-16 06:50] LABS: Bedside Glucose 160 mg/dL (70-110)
[2020-10-16] MEDS: 0.9% Saline Lock 10 ML Syringe IV ×4 (08:40→14:34)
[2020-10-16 09:48] LABS: Bacteria 0 SEEN /hpf (None Seen); Mucous, Urine 0 SEEN /hpf (<or=2+); Red Blood Cells-Urine 0 SEEN /hpf (0-5)
[2020-10-16] MEDS: Furosemide 500 MG in Empty Viaflex 50 mL 1 EACH CONT INF (09:52)
[2020-10-16 09:59] LABS: Color, Urine Yellow (Yellow); Glucose, Dipstick 50 mg/dl (Normal); Ketone-Dipstick Negative (Negative); Leukocyte Esterase-Dipstick Negative /ul (Negative); Nitrite-Dipstick Negative (Negative); Occult Blood-Urine 10 /ul (Negative); Protein-Dipstick 100 mg/dl (Negative); Urine Bilirubin Dipstick Negative (Negative); Urine Clarity Clear (Clear); Urine Urobilinogen Normal (Normal)
[2020-10-16 10:05] LABS: Squamous Epithelial Cells - UA 0-5 SEEN /hpf (5-10); White Blood Cells 0-5 SEEN /hpf (0-5)
[2020-10-16] MEDS: Ondansetron 8 MG Tablet PO (10:09)
[2020-10-16] MEDS: Losartan Potassium 100 MG Tablet PO (12:08)
[2020-10-16] MEDS: Pantoprazole Sodium 20 MG Tablet PO (12:08)
[2020-10-16] MEDS: Sertraline 100 MG Tablet PO (12:08)
--- NOTE | 2020-10-16 12:08 | RAD_ITS ---
STUDY: X-RAY CHEST REASON FOR EXAM: Female, 50 years old. CHF TECHNIQUE: PA and lateral views of the chest. COMPARISON: Comparison is made with prior study dated 10/14/2020. FINDINGS: A left-sided cale catheter is in situ with tip at the junction of the superior vena cava and right atrium. EKG electrodes are seen. Since prior study, the CHF has improved. Blunting of both posterior costophrenic angles is seen. Mild residual vascular congestion and bibasilar atelectasis is present. Normal size heart. Normal mediastinum and brandi. Normal visualized pulmonary arteries. Normal visualized aortic arch and descending thoracic aorta. There are diffuse degenerative changes of the visualized thoracic spine. Normal visualized ribs, clavicles, and shoulders. There is no demonstrated abnormality of the visualized soft tissue structures of the upper abdomen. RAD/Chest PA and Lateral IMPRESSION: Interval improvement of the CHF. Residual changes persist. Further follow-up recommended. Electronically Signed: Darryl Ford MD at 13:58 EDT , Service support ,
[2020-10-16] MEDS: Enoxaparin 40 MG/0.4 ML Syringe SC (12:11)
[2020-10-16] MEDS: Potassium Chloride Oral Tablet 20 MEQ PO (12:11)
[2020-10-16 12:14] LABS: Pathologist Review Reviewed
--- NOTE | 2020-10-16 13:24 | CASEMGMT ---
SW met w/pt regarding resources for when she goes home, as she had mentioned concern about being home alone. Pt states since she spoke w/CM, she has spoken to neighbor who is going to check on her. She is also feeling better and not quite as concerned. We spoke about a life alert button, she has something similar already through her home security system. We spoke about home care, though pt is to start outpt PT for lymphadema--this may not be able to be done at home; pt plans to follow up with outpt PT at discharge. We spoke also about home delivered meals, pt interested in information. Pt also asked about transportation information. SW explained will bring back information for home delivered meals and [facility]. Pt is to go for xray, SW explained will leave information in the room if she is at xray. SW gathered information on [employer], [employer] and [employer], as well as [facility] [facility]. SW left the information in pt's room as she is indeed at xray. No further needs from SW anticipated. Pt home at discharge, plans to have a friend check in on her, and she will follow up on resources provided. MAXIMO Orozco
--- NOTE | 2020-10-16 13:29 | PCM.DC ---
Discharge Instructions Diet Discharge Diet: - (Resume previous diet) Activity Discharge Activity: Return to Normal Activity Weight Bearing Status: Full weight bearing Dressing / Incision Call your doctor if you observe: - (Call your oncologist if your temperature is 100.4 or greater) Follow Up Care Test Results: Test results from this visit will be discussed in further detail at your follow-up appointment, if applicable. Discharge Plan Admission Admit Date/Time: 10/14/20 17:56 Primary Reason for Your Visit: Diastolic CHF, anasarca Attending Provider: Oj Guallpa Primary Care Provider: Joe Law Discharge Orders/Prescriptions Prescriptions: Continued cholestyramine (with sugar) 4 gram powder 4 g PO TID PRN (Reason: Diarrhea) RF: 0 diphenoxylate-atropine [Lomotil] 2.5-0.025 mg tablet 2 tab PO .QID PRN (Reason: Diarrhea) RF: 0 methadone 5 mg tablet 5 mg PO BID RF: 0 omeprazole 20 mg tablet,delayed release (DR/EC) 20 mg PO DAILY RF: 0 timolol 0.5 % drops 1 drp EACH EYE QHS RF: 0 valacyclovir 500 MG tablet 500 mg PO DAILY PRN PRN (Reason: HERPES) RF: 0 atorvastatin 40 MG tablet 40 mg PO QHS RF: 0 ondansetron HCl 8 mg tablet 8 mg PO Q8H PRN (Reason: Nausea) RF: 0 nitrofurantoin 100 mg Capsule 100 mg PO BID PRN (Reason: uti symptoms) RF: 0 fluticasone propionate 50 mcg/actuation spray,suspension 2 spray INTRANASAL DAILY PRN (Reason: allergies) RF: 0 insulin lispro [Humalog KwikPen Insulin] 100 unit/mL insulin pen 15 unit SUBCUT TIDCM RF: 0 losartan 50 mg tablet 100 mg PO DAILY RF: 0 sertraline 100 mg tablet 100 mg PO DAILY RF: 0 insulin glargine 100 unit/mL (3 mL) insulin pen 24 unit SC QHS RF: 0 olanzapine 5 mg tablet 5 mg PO QHS PRN (Reason: Nausea) RF: 0 lorazepam 1 mg tablet 1 mg PO BID PRN (Reason: Anxiety) RF: 0 bumetanide 2 mg tablet 4 mg PO BID Qty: 0 RF: 0 potassium chloride 10 mEq capsule, extended release 20 meq PO DAILY Qty: 180 RF: 1 Referrals / Follow Up: Mel Benson DO [STAFF PHYSICIAN] - Within 2 Weeks Joe Law MD [Primary Care Provider] - Within 2 Weeks Clifford Barakat DO [STAFF PHYSICIAN] - See Referral Note (As directed) Disposition Disposition (needs filled in before D/C Order can be placed): Home, Self Care
[2020-10-16 14:56] LABS: Bedside Glucose 198 mg/dL (70-110)
[2020-10-16] MEDS: LORazepam 1 MG Tablet PO (14:56)
--- NOTE | 2020-10-17 08:27 | PCM.DC.SUM ---
Providers Date of Admission: 10/14/20 Date of Discharge: 10/16/20 Primary Care Physician: Dr. Joe Law MD Reason For Visit: CHF EXAC, ANASCARA Diagnosis Discharge Diagnosis (1) Anasarca: Status: Acute Code(s): R60.1 - Generalized edema Plan: Discharge diagnosis: #1 acute diastolic congestive heart failure #2 anasarca #3 nephrotic syndrome #4 chronic breast cancer #5 anemia secondary to chemotherapy for breast cancer #6 type 2 diabetes #7 essential hypertension #8 hyperlipidemia Medications at Discharge Home Medications valacyclovir 500 mg PO DAILY PRN PRN 02/12/13 cholestyramine (with sugar) 4 gram oral powder 4 g PO TID PRN g 11/06/19 diphenoxylate-atropine 2.5 mg-0.025 mg tablet 2 tab PO .QID PRN tab 11/06/19 methadone 5 mg tablet 5 mg PO BID tab 11/06/19 omeprazole 20 mg tablet,delayed release 20 mg PO DAILY 11/06/19 timolol 0.5 % eye drops 1 drp EACH EYE QHS 11/06/19 atorvastatin 40 mg PO QHS 03/11/20 fluticasone propionate 2 spray INTRANASAL DAILY PRN 10/14/20 insulin glargine 24 unit SC QHS 10/14/20 insulin lispro [Humalog KwikPen Insulin] 15 unit SUBCUT TIDCM 10/14/20 lorazepam 1 mg PO BID PRN 10/14/20 losartan 100 mg PO DAILY 10/14/20 nitrofurantoin 100 mg PO BID PRN 10/14/20 olanzapine 5 mg PO QHS PRN 10/14/20 ondansetron HCl 8 mg PO Q8H PRN 10/14/20 potassium chloride 10 mEq capsule,extended release 20 meq PO DAILY #180 cap 10/14/20 sertraline 100 mg PO DAILY 10/14/20 bumetanide 4 mg PO BID #0 tab 10/16/20 Hospital Course Operations None Procedures 2-D Echocardiogram Summary of Care Provided Minutes Spent on Discharge: 32 Hospital Course: This 50-year-old black female was directly admitted to PCU with concerns of severe fluid retention in the lower extremities and body, she has known history of nephrotic syndrome and is currently being treated chronically for breast cancer. Patient was admitted to PCU, labs were obtained and she was placed on an IV Lasix drip. Patient responded well to diuresis, echocardiogram was performed which showed a normal EF. Chest x-ray showed evidence of congestive heart failure, patient did not require supplemental oxygen. Patient improved during her hospital stay, there was no untoward events during her hospital stay. On 10/16/2020, patient was seen and examined: On examination she appeared in good health and spirits, she does not appear to be in any distress. Vital signs as documented. Skin warm and dry and without overt rashes. Neck without JVD, thyroid appears normal, trachea is midline, neck is supple. Lungs clear, normal air movement was noted. Heart exam notable for regular rhythm, normal sounds and absence of murmurs, rubs or gallops. Abdomen unremarkable and without evidence of organomegaly, masses, or abdominal aortic enlargement, bowel sounds are present in all 4 quadrants, no abdominal tenderness was noted. Extremities nonedematous, no cyanosis was noted, no clubbing was noted, both lower legs were wrapped with Unna boots. Neuro: Cranial nerves II through XII are grossly intact, no focal motor deficits were noted, sensation to light touch and pinprick is intact, motor exam 5/5 throughout. Psych: Patient is alert and oriented x3, she does not appear anxious or depressed, she does not appear agitated. Patient had an elevation of her temperature during her hospitalization but she was not neutropenic and there was no evidence for an infection. Patient was discharged home in stable condition on 10/16/2020 Weight / BMI Weight Weight: 97.159 kg Body Mass Index (BMI) 35.8 ABG / Lab / Microbiology Data Result Diagrams: 10/16/20 05:06 10/16/20 05:06 Laboratory: Laboratory Results - last 24 hr 10/16/20 10/16/20 10/16/20 05:06 09:40 14:52 Diff Path Review Reviewed Urine Color Yellow Urine Clarity Clear Urine pH 6.0 Ur Specific [place] 1.010 Urine Protein 100 H Urine Glucose (UA) 50 H Urine Ketones Negative Urine Occult Blood 10 H Urine Nitrite Negative Urine Bilirubin Negative Urine Urobilinogen Normal Ur Leukocyte Esterase Negative Urine RBC 0 SEEN Urine WBC 0-5 SEEN Ur Squamous Epith Cells 0-5 SEEN Urine Bacteria 0 SEEN Urine Mucus 0 SEEN POC Glucose 198 H Radiography Diagnostic Testing: Radiology Impression Chest X-Ray 10/16/20 12:08 IMPRESSION: Interval improvement of the CHF. Residual changes persist. Further follow-up recommended. Electronically Signed: Darryl Ford MD at 13:58 EDT , Service support , D/C Instructions Discharge Diet: - (Resume previous diet) Weight Bearing Status: Full weight bearing Call your doctor if you observe: - (Call your oncologist if your temperature is 100.4 or greater) Meaningful Use Info Meaningful Use Diagnoses (Choose all that apply): CHF CHF PAM/ARB ordered at discharge?: Yes Documented LVEF (%): 50 Discharge Plan Admission Admit Date/Time: 10/14/20 17:56 Primary Reason for Your Visit: Diastolic CHF, anasarca Attending Provider: Oj Guallpa Primary Care Provider: Joe Law Discharge Orders/Prescriptions Prescriptions: Continued cholestyramine (with sugar) 4 gram powder 4 g PO TID PRN (Reason: Diarrhea) RF: 0 diphenoxylate-atropine [Lomotil] 2.5-0.025 mg tablet 2 tab PO .QID PRN (Reason: Diarrhea) RF: 0 methadone 5 mg tablet 5 mg PO BID RF: 0 omeprazole 20 mg tablet,delayed release (DR/EC) 20 mg PO DAILY RF: 0 timolol 0.5 % drops 1 drp EACH EYE QHS RF: 0 valacyclovir 500 MG tablet 500 mg PO DAILY PRN PRN (Reason: HERPES) RF: 0 atorvastatin 40 MG tablet 40 mg PO QHS RF: 0 ondansetron HCl 8 mg tablet 8 mg PO Q8H PRN (Reason: Nausea) RF: 0 nitrofurantoin 100 mg Capsule 100 mg PO BID PRN (Reason: uti symptoms) RF: 0 fluticasone propionate 50 mcg/actuation spray,suspension 2 spray INTRANASAL DAILY PRN (Reason: allergies) RF: 0 insulin lispro [Humalog KwikPen Insulin] 100 unit/mL insulin pen 15 unit SUBCUT TIDCM RF: 0 losartan 50 mg tablet 100 mg PO DAILY RF: 0 sertraline 100 mg tablet 100 mg PO DAILY RF: 0 insulin glargine 100 unit/mL (3 mL) insulin pen 24 unit SC QHS RF: 0 olanzapine 5 mg tablet 5 mg PO QHS PRN (Reason: Nausea) RF: 0 lorazepam 1 mg tablet 1 mg PO BID PRN (Reason: Anxiety) RF: 0 bumetanide 2 mg tablet 4 mg PO BID Qty: 0 RF: 0 potassium chloride 10 mEq capsule, extended release 20 meq PO DAILY Qty: 180 RF: 1 Referrals / Follow Up: Mel Benson DO [STAFF PHYSICIAN] - Within 2 Weeks Joe Law MD [Primary Care Provider] - Within 2 Weeks Clifford Barakat DO [STAFF PHYSICIAN] - See Referral Note (As directed) Disposition Disposition (needs filled in before D/C Order can be placed): Home, Self Care Charges/Coding Visit Charges Inpatient E&M: [id number] [facility]
== END 2020-10-16 18:02 | disposition home or self-care (01) | DRG 292 ==
PROVIDERS: Family Medicine; Nurse Practitioner Family; Admitting Provider Family Medicine; PCP Internal Medicine; Visit Provider Internal Medicine
DX: I11.0 Hypertensive heart disease with heart failure (principal); N04.9 Nephrotic syndrome with unspecified morphologic changes; I50.33 Acute on chronic diastolic (congestive) heart failure; C50.919 Malignant neoplasm of unspecified site of unspecified female breast; D64.81 Anemia due to antineoplastic chemotherapy; E78.5 Hyperlipidemia, unspecified; Z87.891 Personal history of nicotine dependence; E11.42 Type 2 diabetes mellitus with diabetic polyneuropathy; Z79.4 Long term (current) use of insulin; Z79.899 Other long term (current) drug therapy
CPT/HCPCS: 36415; 71046; 80048; 80053; 81001; 82962; 84484; 85025; 87040; 93005; 93306; 97162; 97166; 97530; 97535; 97802; 99251; Q9957; A4216; G0463; J1940; J3490

== ENCOUNTER 2020-11-11 14:30 | Outpatient (RCR) | payer OTHER, SELFPAY ==
[2020-10-16 00:33] VITALS: BP 174/74; PULSE 100; RESP 18; TEMP 36.6
[2020-10-21 14:16] VITALS: BP 139/71; PULSE 87; RESP 17; TEMP 36.9; BMI 35.8
--- NOTE | 2020-10-21 17:56 | PN.PCM_ITS ---
History of Present Illness Date of Service: 10/21/20 Chief Complaint: seeping from her legs and discolored scales on the skin of the LE's L>R. History of Wound: Anitra is a 50 YO female with a PMH of breast CA (triple negative with mets), HTN, poorly controlled DM II, nephrotic S., anxiety/depr ession, tobacco dependence in remission, Left ventricular hypertrophy, grade 1 diastolic dysfunction, peripheral neuropathy, GERD,Hyperlipidemia and chronic hypomagnesemia who presents to the [facility] today with c/o weeping from her legs with thick, discolored scales. I have seen Anitra in the past when she was admitted to the rehab unit for debility due to pneumonia. She had lymphedema of the LE's the last time I saw her but the scales are new. She has gained at least 25-30 lbs since I last saw her. Subjective Subjective She lost 15 lbs during recent admission to the hospital for CHF. Echocardiogram showed a 50% ejection fraction with borderline global hypokinesis of the left ventricle. The right ventricle was normal in size and had normal systolic function. The atria were of normal size. She had no significant valvular heart disease. The pulmonary artery was normal in size. Fattening at admission to the hospital was 1.03 and at discharge was 1.34. She denies fevers, chills, sweats. She is feeling somewhat fatigued and she had chemotherapy today. She denies orthopnea today and states her breathing is much better than it was prior to her admission to the hospital. The swelling in her legs has decreased significantly. Objective Data Objective Data Vital Signs: Vital Signs Temp Pulse Resp BP 98.4 F 87 17 139/71 H 10/21/20 14:16 10/21/20 14:16 10/21/20 14:16 10/21/20 14:16 Weight: 221 lb Body Mass Index (BMI) 35.8 Physical Exam Skin Skin Narrative: There are no wounds. She has a large amount of hyperkeratotic tissue that needs debrided, aparna on the LLE. the skin is softer since she was diuresed and since having the unna boots and the legs are no longer weeping. She denies pain in the legs. The wound on the tip of the right great toe is healing nicely and is nearly closed. There is no DC and no erythema. No need for debridement. Continue the Neosporin and cover with bandaid until healed Debridement Note Debridement Note Post-Debridement Measurements and Additional Note: Post-Debridement Measurements/Treatment WC - Nurse 1 - General Ulcer Assessment Start: 10/21/20 14:15 Freq: Status: Active Protocol: YAMILA Activity Type Activity Date Activity User E-Sign Co-Sign Detail Recorded Client Recorded Date Recorded By Document 10/21/20 14:16 ML [id number] 10/21/20 14:30 ML 10/21/20 14:16 WC - Today's Visit Information Type of service Follow-up Visit (Physician/[facility] ) Arrival Mode Ambulatory Patient Identification Verified (Name & Yes ) Patient Requires Transmission-Based No Precautions Safety Precautions NA Height and Weight Body Mass Index (BMI) 35.8 BMI Classification Obese Vital Signs Temperature (97.8 F-99.1 F) 98.4 F Temperature Source Temporal Pulse Rate (60-100) 87 Pulse Location Monitor Respiratory Rate (12-18) 17 Respiratory rate source Observation Blood Pressure (90/60-120/80) 139/71 H Blood Pressure Mean (mm Hg) 93 Source Monitor Position Sitting Blood Pressure Location Left Arm History Since Last Visit- (Skip if this is Patient's initial visit) Have you changed medications since your No last visit? Any new allergies or adverse reactions No Had a fall/change in ADL's that may No increase risk of falls Signs or symptoms of abuse and/or No neglect since last visit Have you been in the hospital since your Yes last visit? Has dressing in place as prescribed Yes Has compression in place as prescribed Yes Has offloadiing in place as prescribed Yes Experienced any changes in pain level or No management Left Footwear Regular Shoe Right Footwear Regular Shoe Pain Scale: 0-10 Numeric Is Patient Pain Free? Yes - Nurse 1 - General Ulcer Measurement Start: 10/21/20 14:15 Freq: Status: Active Protocol: Activity Type Activity Date Activity User E-Sign Co-Sign Detail Recorded Client Recorded Date Recorded By Document 10/21/20 14:16 ML [id number] 10/21/20 14:30 ML 10/21/20 14:16 Wound Center Nurse 1 #1 Right Gr Toe -Current Size (cm) - Length 1.3 -Current Size (cm) - Width 1.2 -Current Size (cm) - Depth 0.1 -Total Square Cm 1.56 -Exudate Amt None Present -Wound Margin Distinct, Outline Attached -Slough/Fibrin No -Necrosis Amt None Present (0 %) -Texture (Kathryn-wound Skin Appearance) No Abnormality -Moisture (Kathryn-wound Skin Appearance) Dry/Scaly -Color (Kathryn-wound Skin Appearance) Assessed -Temperature (Kathryn-wound Skin No Abnormality Appearance) (Pt Warm) -Tenderness on Palpation (Kathryn-wound No Skin Appearance) -Ulcer Cleansing Wound Cleanser -Foul Odor after Cleansing No -Anesthetic Used 4% Lidocaine Solution Right Calf (cm) 36 Right Ankle (cm) 18 Left Calf (cm) 37 Left Ankle (cm) 27 WC - Nurse 2 - General Ulcer CM Notes Start: 10/21/20 14:15 Freq: Status: Active Protocol: Activity Type Activity Date Activity User E-Sign Co-Sign Detail Recorded Client Recorded Date Recorded By Document 10/21/20 14:35 MW [id number] 10/21/20 14:40 MW 10/21/20 14:35 Wound Center Nurse 2 #1 Right Gr Toe -Time 14:35 -Correct Patient Yes -Correct Side, Site, Position Yes -Correct Procedure Yes -Procedure Performed No -Tunneling No -Undermining/Tunneling No -Circular Undermining No -Wound/Ulcer Outcome Not Healed -Ulcer Cleansing Rinsed/ Irrigated with Saline -Foul Odor after Cleansing No -Bioengineered Tissue No -Bleeding Controlled with NA -Offloading No -Treatment Response Procedure Tolerated Well Pain Scale: 0-10 Numeric Is Patient Pain Free? Yes - Nurse 3 - General Ulcer D/C NN Start: 10/21/20 14:15 Freq: Status: Active Protocol: Activity Type Activity Date Activity User E-Sign Co-Sign Detail Recorded Client Recorded Date Recorded By Document 10/21/20 14:54 ML [id number] 10/21/20 14:55 ML 10/21/20 14:54 Wound Care Nurse 3 #1 Right Gr Toe -Ulcer Cleansing Wound Cleanser -Other Dressing ANGELY -Primary Dressing Covered/Secured with Dry Gauze Left -Multi-Layered Wrap Application Unna Boot - Bilateral ($) -Unna Boots (Bilat) ($) 2 - Visit Discharge Discharge Condition Stable Ambulatory Status Ambulatory Medication Reconcilliation completed & No provided to patient/care provider Clinical Summary of Care Provided Yes Additional Wound Wound debrided: no wounds but, hyperkeratotic skin on Left LE was debrided. Laterality: Left Anesthesia Used: 4% Lidocaine Solution Depth: - (down to soft skin) Instrument Used: Forceps Tissue Removed: old hyperkeratotic slough Amount of bleeding with debridement: None Operative Diagnosis: lymphedema/hyperkeratotic skin Additional Wound Wound debrided: she has a wound on the R great toe which is healing Operative Diagnosis: no debridement necessary Assessment/Plan Assessment/Plan (1) Traumatic wound: (2) Lymphedema: CODE(S): I89.0 - Lymphedema, not elsewhere classified PLAN: 1. Continue with the BL Unna boots. 2. Apply for lymphedema pumps 3. continue to cleanse the wound on the tip of the great toe daily and apply Neosporin and a Bandaid. Call me if any purulent DC, redness, swelling or fevers. 4. RTC in 2 weeks to see me and in 1 week for a nurse visit to change the unna boots.
[2020-10-27 15:31] VITALS: BP 140/75; PULSE 90; RESP 18; TEMP 36.8; BMI 35.8
[2020-11-04 12:32] VITALS: BP 161/68; PULSE 99; RESP 18; TEMP 37.1; BMI 35.8
--- NOTE | 2020-11-04 13:23 | PCM.WC.PN ---
History of Present Illness Date of Service: 11/04/20 Chief Complaint: seeping from her legs and discolored scales on the skin of the LE's L>R. History of Wound: Anitra is a 50 YO female with a PMH of breast CA (triple negative with mets), HTN, poorly controlled DM II, nephrotic S., anxiety/depression, tobacco dependence in remission, Left ventricular hypertrophy, grade 1 diastolic dysfunction, peripheral neuropathy, GERD,Hyperlipidemia and chronic hypomagnesemia who presents to the [facility] today with c/o weeping from her legs with thick, discolored scales. I have seen Anitra in the past when she was admitted to the rehab unit for debility due to pneumonia. She had lymphedema of the LE's the last time I saw her but the scales are new. She has gained at least 25-30 lbs since I last saw her. Subjective Subjective Anitra returns to the wound care center today for a follow-up visit. She has lymphedema of both lower extremities secondary to long standing venous insufficiency and edema due to nephrotic S. There is hyperkeratosis and cracking of her skin. We have been using moisturizers and BL unna boots to control the edema. We are debriding the thickened scales weekly and applying unna boots to control the edema until we can get Lymphedema pumps. I also think she would benefit from a sleeve for the lymphedema in the RUE S/P mastectomy and lymph node dissection. Anitra also told me that she has been very down lately and she asked Dr. Barakat if she could have a chemo holiday and he stopped chemo until 11/25 and then will re-evaluate. She is currently taking Zoloft 100 mg daily. Objective Data Objective Data Vital Signs: Vital Signs Temp Pulse Resp BP 98.8 F 99 18 161/68 H 11/04/20 12:32 11/04/20 12:32 11/04/20 12:32 11/04/20 12:32 Oxygen Delivery Method Room Air Weight: 221 lb Body Mass Index (BMI) 35.8 Charges/Coding Visit Charges Office Visits / Consults: 06308 OV L3 Est Physical Exam Extremity Extremity Narrative: The edema is much better controlled with the Unna boots. the burden of hyperkeratotic thick scales on the distal LE's is gradually decreasing with the weekly debridements. There are no open wounds. The scales are softer and easier to debride since we having been applying a thick layer of moisturizer with the Unna boots. There is there are no openings in the skin. No evidence of cellulitis and she denies any pain in the legs. I picked off a lot more skin and scales. The wound on the tip of the R great toe is still open but it is shrinking. There is no erythema and no purulent discharge. There is no significant swelling. There is no odor. The RUE lymphedema is mostly controlled with a compression garment she wears. Debridement Note Debridement Note Post-Debridement Measurements and Additional Note: Post-Debridement Measurements/Treatment - Nurse 1 - General Ulcer Assessment Start: 10/21/20 14:15 Freq: Status: Active Protocol: YAMILA Activity Type Activity Date Activity User E-Sign Co-Sign Detail Recorded Client Recorded Date Recorded By Document 10/21/20 14:16 ML [id number] 10/21/20 14:30 ML Document 10/27/20 15:31 PL [id number] 10/27/20 15:32 PL Document 11/04/20 12:32 BMF [id number] 11/04/20 12:43 BMF 10/21/20 10/27/20 11/04/20 14:16 15:31 12:32 - Today's Visit Information Type of service Follow-up Visit Nurse-only Follow-up Visit (Physician/WAREHOUSE OPERATIONS ASSOCIATE Visit (Physician/WAREHOUSE OPERATIONS ASSOCIATE ) ) Arrival Mode Ambulatory Cane Ambulatory,Cane Transfer Assistance None None Patient Identification Verified (Name & Yes Yes Yes ) Patient Requires Transmission-Based No No No Precautions Safety Precautions NA NA Height and Weight Body Mass Index (BMI) 35.8 35.8 35.8 BMI Classification Obese Obese Obese Vital Signs Temperature (97.8 F-99.1 F) 98.4 F 98.2 F 98.8 F Temperature Source Temporal Temporal Temporal Pulse Rate (60-100) 87 90 99 Pulse Location Monitor Monitor Respiratory Rate (12-18) 17 18 18 Respiratory rate source Observation Observation Oxygen Delivery Method Room Air Blood Pressure (90/60-120/80) 139/71 H 140/75 H 161/68 H Blood Pressure Mean (mm Hg) 93 96 99 Source Monitor Monitor Position Sitting Sitting Blood Pressure Location Left Arm Left Arm History Since Last Visit- (Skip if this is Patient's initial visit) Have you changed medications since your No No No last visit? Any new allergies or adverse reactions No No No Had a fall/change in ADL's that may No No No increase risk of falls Signs or symptoms of abuse and/or No No No neglect since last visit Have you been in the hospital since your Yes No No last visit? Has dressing in place as prescribed Yes Yes Yes Has compression in place as prescribed Yes Yes Yes Has offloadiing in place as prescribed Yes N/A N/A Experienced any changes in pain level or No No No management Left Footwear Regular Shoe Regular Shoe Right Footwear Regular Shoe Regular Shoe Pain Scale: 0-10 Numeric Is Patient Pain Free? Yes Yes Yes WC - Nurse 1 - General Ulcer Measurement Start: 10/21/20 14:15 Freq: Status: Active Protocol: Activity Type Activity Date Activity User E-Sign Co-Sign Detail Recorded Client Recorded Date Recorded By Document 10/21/20 14:16 ML [id number] 10/21/20 14:30 ML Document 11/04/20 12:32 [facility] [id number] 11/04/20 12:43 [facility] 10/21/20 11/04/20 14:16 12:32 Wound Center Nurse 1 #1 Right Gr Toe -Combined with other wound No -Current Size (cm) - Length 1.3 0.3 -Current Size (cm) - Width 1.2 0.2 -Current Size (cm) - Depth 0.1 0.2 -Total Square Cm 1.56 0.06 -Photo Taken No -Epithelialization Small 1-33% -Tunneling No -Undermining/Tunneling No -Circular Undermining No -Exudate Amt None Present Small -Exudate Type Serosanguineous -Wound Margin Distinct, Distinct, Outline Outline Attached Attached -Granulation Amt Large (67-100%) -Granulation Quality Red -Slough/Fibrin No Yes -Necrosis Amt None Present (0 Small (1-33%) %) -Necrotic Tissue Type Adherent Slough -Texture (Kathryn-wound Skin Appearance) No Abnormality Assessed,Callus ,Scarring -Moisture (Kathryn-wound Skin Appearance) Dry/Scaly Assessed,Dry/ Scaly -Color (Kathryn-wound Skin Appearance) Assessed Assessed -Temperature (Kathryn-wound Skin No Abnormality No Abnormality Appearance) (Pt Warm) (Pt Warm) -Tenderness on Palpation (Kathryn-wound No No Skin Appearance) -Ulcer Cleansing Wound Cleanser soapy water -Foul Odor after Cleansing No No -Anesthetic Used 4% Lidocaine 5% Lidocaine Solution Gel Lower Limb Edema Present Yes Right Calf (cm) 36 36.9 Right Ankle (cm) 18 23.4 Left Calf (cm) 37 37 Left Ankle (cm) 27 26.5 WC - Nurse 2 - General Ulcer CM Notes Start: 10/21/20 14:15 Freq: Status: Active Protocol: Activity Type Activity Date Activity User E-Sign Co-Sign Detail Recorded Client Recorded Date Recorded By Document 10/21/20 14:35 MW [id number] 10/21/20 14:40 MW Document 11/04/20 12:47 MW [id number] 11/04/20 13:01 MW 10/21/20 11/04/20 14:35 12:47 Wound Center Nurse 2 #1 Right Gr Toe -Time 14:35 12:49 -Correct Patient Yes Yes -Correct Side, Site, Position Yes Yes -Correct Procedure Yes Yes -Procedure Performed No No -Post Debridement (cm) - Length 0.3 -Post Debridement (cm) - Width 0.2 -Post Debridement (cm) - Depth 0.2 -Total Square (Post) (cm) 0.06 -Tunneling No No -Undermining/Tunneling No No -Circular Undermining No No -Wound/Ulcer Outcome Not Healed Not Healed -Ulcer Cleansing Rinsed/ Rinsed/ Irrigated with Irrigated with Saline Saline -Foul Odor after Cleansing No No -Bioengineered Tissue No No -Bleeding Controlled with NA NA -Offloading No No -Treatment Response Procedure Tolerated Well Pain Scale: 0-10 Numeric Is Patient Pain Free? Yes Yes - Nurse 3 - General Ulcer D/C NN Start: 10/21/20 14:15 Freq: Status: Active Protocol: Activity Type Activity Date Activity User E-Sign Co-Sign Detail Recorded Client Recorded Date Recorded By Document 10/21/20 14:54 ML [id number] 10/21/20 14:55 ML Document 10/27/20 15:31 PL [id number] 10/27/20 15:32 PL 10/21/20 10/27/20 14:54 15:31 Wound Care Nurse 3 #1 Right Gr Toe -Ulcer Cleansing Wound Cleanser -Other Dressing ANGELY -Primary Dressing Covered/Secured with Dry Gauze Bilateral -Multi-Layered Wrap Application Unna Boot - Bilateral ($) -Unna Boots (Bilat) ($) 2 Left -Multi-Layered Wrap Application Unna Boot - Bilateral ($) -Unna Boots (Bilat) ($) 2 Vital Signs Temperature (97.8 F-99.1 F) 98.2 F Temperature Source Temporal Pulse Rate (60-100) 90 Respiratory Rate (12-18) 18 Blood Pressure (90/60-120/80) 140/75 H Blood Pressure Mean (mm Hg) 96 Pain Scale: 0-10 Numeric Is Patient Pain Free? Yes WC - Visit Discharge Discharge Condition Stable Stable Ambulatory Status Ambulatory Ambulatory,Cane Transportation Private Auto Medication Reconcilliation completed & No provided to patient/care provider Clinical Summary of Care Provided Yes Assessment/Plan Assessment/Plan (1) Anxiety and depression: (2) Lymphedema: CODE(S): I89.0 - Lymphedema, not elsewhere classified (3) Traumatic wound: PLAN: 1. Hydrogel to the R great toe and cover with a dry dressing 2. BL unna boots until we can get lymphedema pumps to control the edema and prevent weeping and infections 3. Increase the Sertraline to 150 mg daily. I sent a text to Dr. Law telling her of the increase in the dose for undertreated depression. I suspect she just needs a break from chemo and she will decide to continue treatment. This happens periodically. She does not want to she is just tired of being sick and needs a break for a few weeks.
[2020-11-11 14:24] VITALS: BP 162/74; PULSE 96; RESP 20; TEMP 36.9; BMI 35.8
--- NOTE | 2020-11-18 11:02 | PN.PCM_ITS ---
History of Present Illness Date of Service: 11/11/20 Chief Complaint: seeping from her legs and discolored scales on the skin of the LE's L>R. History of Wound: Anitra is a 50 YO female with a PMH of breast CA (triple negative with mets), HTN, poorly controlled DM II, nephrotic S., anxiety/depr ession, tobacco dependence in remission, Left ventricular hypertrophy, grade 1 diastolic dysfunction, peripheral neuropathy, GERD,Hyperlipidemia and chronic hypomagnesemia who presents to the [facility] today with c/o weeping from her legs with thick, discolored scales. I have seen Anitra in the past when she was admitted to the rehab unit for debility due to pneumonia. She had lymphedema of the LE's the last time I saw her but the scales are new. She has gained at least 25-30 lbs since I last saw her. Subjective Subjective Meredaadriana returns to the wound care clinic for follow-up visit. She is currently being treated for lymphedema/hyperkeratosis of the lower extremities. She has a history of nephrotic syndrome. She also has lymphedema of the right upper extremity secondary to breast surgery and axillary dissection. She denies any fevers/chills/sweats. She denies pain in her legs and states they feel much better since the swelling is controlled. She has also increased the Bumex to 6 mg BID due to increased swelling. She follows with Dr. Benson for nephrology. She reports that she is felling better physically since she is on a vacation from [place]. She reports no adverse effects with the increase in the Zoloft to 150 mg and she has a follow up appt with Dr. Law this week. Objective Data Objective Data Vital Signs: Vital Signs Temp Pulse Resp BP 98.4 F 96 20 H 162/74 H 11/11/20 14:24 11/11/20 14:24 11/11/20 14:24 11/11/20 14:24 Oxygen Delivery Method Room Air Weight: 221 lb Body Mass Index (BMI) 35.8 Charges/Coding Visit Charges Office Visits / Consults: 22899 OV L3 Est Physical Exam Const alert and oriented x3 Constitutional Narrative: smiling more than she has in the past 1-2 months and she looks less tired and more slert. General Appearance: cooperative Resp clear to auscultation bilaterally Cardio regular rate and regular rhythm GI non-tender and non-distended GI Narrative: No significant pitting in the flanks. Palpation: soft Skin Wounds: wounds noted Wound Narrative: There are no open wounds of the LE's and the hyperkeratotic burden is lessening weekly with debridement of the scaling. Edema is much improved. No erythema of the skin and no increased warmth to touch. No weeping from the skin today. The wound on the tip of the great toe is just a red dot now. No evidence of infection. No debridement other than the hyperkeratotic scales. Debridement Note Debridement Note Post-Debridement Measurements and Additional Note: Post-Debridement Measurements/Treatment - Nurse 1 - General Ulcer Assessment Start: 10/21/20 14:15 Freq: Status: Active Protocol: YAMILA Activity Type Activity Date Activity User E-Sign Co-Sign Detail Recorded Client Recorded Date Recorded By Document 10/21/20 14:16 ML [id number] 10/21/20 14:30 ML Document 10/27/20 15:31 PL [id number] 10/27/20 15:32 PL Document 11/04/20 12:32 BMF [id number] 11/04/20 12:43 BMF Document 11/11/20 14:24 DL [id number] 11/11/20 14:31 DL 10/21/20 10/27/20 11/04/20 14:16 15:31 12:32 - Today's Visit Information Type of service Follow-up Visit Nurse-only Follow-up Visit (Physician/CHIEF TRANSFER AND PUMPHOUSE OPERATOR Visit (Physician/CHIEF TRANSFER AND PUMPHOUSE OPERATOR ) ) Arrival Mode Ambulatory Cane Ambulatory,Cane Transfer Assistance None None Patient Identification Verified (Name & Yes Yes Yes ) Patient Requires Transmission-Based No No No Precautions Safety Precautions NA NA Finger Stick Blood Sugar(mg/dl) (if indicated): Blood Sugar Height and Weight Body Mass Index (BMI) 35.8 35.8 35.8 BMI Classification Obese Obese Obese Vital Signs Temperature (97.8 F-99.1 F) 98.4 F 98.2 F 98.8 F Temperature Source Temporal Temporal Temporal Pulse Rate (60-100) 87 90 99 Pulse Location Monitor Monitor Respiratory Rate (12-18) 17 18 18 Respiratory rate source Observation Observation Oxygen Delivery Method Room Air Blood Pressure (90/60-120/80) 139/71 H 140/75 H 161/68 H Blood Pressure Mean (mm Hg) 93 96 99 Source Monitor Monitor Position Sitting Sitting Blood Pressure Location Left Arm Left Arm History Since Last Visit- (Skip if this is Patient's initial visit) Have you changed medications since your No No No last visit? Any new allergies or adverse reactions No No No Had a fall/change in ADL's that may No No No increase risk of falls Signs or symptoms of abuse and/or No No No neglect since last visit Have you been in the hospital since your Yes No No last visit? Has dressing in place as prescribed Yes Yes Yes Has compression in place as prescribed Yes Yes Yes Has offloadiing in place as prescribed Yes N/A N/A Experienced any changes in pain level or No No No management Left Footwear Regular Shoe Regular Shoe Right Footwear Regular Shoe Regular Shoe Pain Scale: 0-10 Numeric Is Patient Pain Free? Yes Yes Yes 11/11/20 14:24 WC - Today's Visit Information Type of service Follow-up Visit (Physician/CHIEF TRANSFER AND PUMPHOUSE OPERATOR ) Arrival Mode Ambulatory,Cane Transfer Assistance None Patient Identification Verified (Name & Yes ) Patient Requires Transmission-Based No Precautions Safety Precautions Finger Stick Blood Sugar(mg/dl) (if 205 indicated): Blood Sugar Stated by Patient Height and Weight Body Mass Index (BMI) 35.8 BMI Classification Obese Vital Signs Temperature (97.8 F-99.1 F) 98.4 F Temperature Source Temporal Pulse Rate (60-100) 96 Pulse Location Monitor Respiratory Rate (12-18) 20 H Respiratory rate source Observation Oxygen Delivery Method Blood Pressure (90/60-120/80) 162/74 H Blood Pressure Mean (mm Hg) 103 Source Monitor Position Blood Pressure Location History Since Last Visit- (Skip if this is Patient's initial visit) Have you changed medications since your No last visit? Any new allergies or adverse reactions No Had a fall/change in ADL's that may No increase risk of falls Signs or symptoms of abuse and/or No neglect since last visit Have you been in the hospital since your No last visit? Has dressing in place as prescribed Yes Has compression in place as prescribed Yes Has offloadiing in place as prescribed N/A Experienced any changes in pain level or No management Left Footwear Right Footwear Pain Scale: 0-10 Numeric Is Patient Pain Free? Yes - Nurse 1 - General Ulcer Measurement Start: 10/21/20 14:15 Freq: Status: Active Protocol: Activity Type Activity Date Activity User E-Sign Co-Sign Detail Recorded Client Recorded Date Recorded By Document 10/21/20 14:16 ML [id number] 10/21/20 14:30 ML Document 11/04/20 12:32 BM [id number] 11/04/20 12:43 BMF Document 11/11/20 14:24 DL [id number] 11/11/20 14:31 DL 10/21/20 11/04/20 11/11/20 14:16 12:32 14:24 Wound Center Nurse 1 #1 Right Gr Toe -Combined with other wound No -Current Size (cm) - Length 1.3 0.3 0.1 -Current Size (cm) - Width 1.2 0.2 0.1 -Current Size (cm) - Depth 0.1 0.2 0.1 -Total Square Cm 1.56 0.06 0.01 -Photo Taken No No -Epithelialization Small 1-33% -Tunneling No -Undermining/Tunneling No -Circular Undermining No -Exudate Amt None Present Small None Present -Exudate Type Serosanguineous -Wound Margin Distinct, Distinct, Thickened Outline Outline Attached Attached -Granulation Amt Large (67-100%) Large (67-100%) -Granulation Quality Red Pale -Slough/Fibrin No Yes -Necrosis Amt None Present (0 Small (1-33%) None Present (0 %) %) -Necrotic Tissue Type Adherent Slough -Structure Exposed N/A -Texture (Kathryn-wound Skin Appearance) No Abnormality Assessed,Callus Callus,Scarring ,Scarring -Moisture (Kathryn-wound Skin Appearance) Dry/Scaly Assessed,Dry/ Dry/Scaly Scaly -Color (Kathryn-wound Skin Appearance) Assessed Assessed Hemosiderin Staining -Temperature (Kathryn-wound Skin No Abnormality No Abnormality No Abnormality Appearance) (Pt Warm) (Pt Warm) (Pt Warm) -Tenderness on Palpation (Kathryn-wound No No No Skin Appearance) -Ulcer Cleansing Wound Cleanser soapy water Wound Cleanser -Foul Odor after Cleansing No No No -Anesthetic Used 4% Lidocaine 5% Lidocaine 5% Lidocaine Solution Gel Gel Lower Limb Edema Present Yes Right Calf (cm) 36 36.9 36 Right Ankle (cm) 18 23.4 24 Left Calf (cm) 37 37 38.2 Left Ankle (cm) 27 26.5 27 WC - Nurse 2 - General Ulcer CM Notes Start: 10/21/20 14:15 Freq: Status: Active Protocol: Activity Type Activity Date Activity User E-Sign Co-Sign Detail Recorded Client Recorded Date Recorded By Document 10/21/20 14:35 MW [id number] 10/21/20 14:40 MW Document 11/04/20 12:47 MW [id number] 11/04/20 13:01 MW Document 11/11/20 15:05 MW [id number] 11/11/20 15:21 MW 10/21/20 11/04/20 11/11/20 14:35 12:47 15:05 Wound Center Nurse 2 #1 Right Gr Toe -Time 14:35 12:49 15:05 -Correct Patient Yes Yes Yes -Correct Side, Site, Position Yes Yes Yes -Correct Procedure Yes Yes Yes -Procedure Performed No No No -Post Debridement (cm) - Length 0.3 0 -Post Debridement (cm) - Width 0.2 0 -Post Debridement (cm) - Depth 0.2 0 -Total Square (Post) (cm) 0.06 0 -Tunneling No No No -Undermining/Tunneling No No No -Circular Undermining No No No -Wound/Ulcer Outcome Not Healed Not Healed Not Healed -Ulcer Cleansing Rinsed/ Rinsed/ Rinsed/ Irrigated with Irrigated with Irrigated with Saline Saline Saline -Foul Odor after Cleansing No No No -Bioengineered Tissue No No No -Bleeding Controlled with NA NA NA -Offloading No No No -Treatment Response Procedure Procedure Tolerated Well Tolerated Well Pain Scale: 0-10 Numeric Is Patient Pain Free? Yes Yes Yes - Nurse 3 - General Ulcer D/C NN Start: 10/21/20 14:15 Freq: Status: Active Protocol: Activity Type Activity Date Activity User E-Sign Co-Sign Detail Recorded Client Recorded Date Recorded By Document 10/21/20 14:54 ML [id number] 10/21/20 14:55 ML Document 10/27/20 15:31 PL [id number] 10/27/20 15:32 PL Document 11/04/20 13:23 BMF [id number] 11/04/20 13:25 BMF Document 11/04/20 13:32 KR [id number] 11/04/20 13:33 KR Document 11/11/20 15:44 [id number] 11/11/20 15:45 10/21/20 10/27/20 11/04/20 14:54 15:31 13:23 Wound Care Nurse 3 #1 Right Gr Toe -Ulcer Cleansing Wound Cleanser Rinsed/ Irrigated with Saline -Foul Odor after Cleansing No -Primary Dressing Applied Other -Other Dressing ANGELY atb cream -Primary Dressing Covered/Secured with Dry Gauze Dry Gauze, Secured with Tape -Other Covering drsg per kr gas station operator Bilateral -Lotion applied to leg before compression wrap -Multi-Layered Wrap Application Unna Boot - Unna Boot - Bilateral ($) Bilateral ($) -Unna Boots (Bilat) ($) 2 2 -Other Left -Multi-Layered Wrap Application Unna Boot - Bilateral ($) -Unna Boots (Bilat) ($) 2 Treatment Response Procedure Tolerated Well Vital Signs Temperature (97.8 F-99.1 F) 98.2 F Temperature Source Temporal Pulse Rate (60-100) 90 Respiratory Rate (12-18) 18 Blood Pressure (90/60-120/80) 140/75 H Blood Pressure Mean (mm Hg) 96 Pain Scale: 0-10 Numeric Is Patient Pain Free? Yes Yes WC - Visit Discharge Discharge Condition Stable Stable Stable Ambulatory Status Ambulatory Ambulatory,Cane Ambulatory Transportation Private Auto Private Auto Medication Reconcilliation completed & No provided to patient/care provider Clinical Summary of Care Provided Yes 11/04/20 11/11/20 13:32 15:44 Wound Care Nurse 3 #1 Right Gr Toe -Ulcer Cleansing Rinsed/ Irrigated with Saline -Foul Odor after Cleansing -Primary Dressing Applied -Other Dressing antibiotic ointment -Primary Dressing Covered/Secured with Dry Gauze, Secured with Tape -Other Covering Bilateral -Lotion applied to leg before Yes compression wrap -Multi-Layered Wrap Application Unna Boot - Bilateral ($) -Unna Boots (Bilat) ($) 2 -Other circaids Left -Multi-Layered Wrap Application -Unna Boots (Bilat) ($) Treatment Response Vital Signs Temperature (97.8 F-99.1 F) Temperature Source Pulse Rate (60-100) Respiratory Rate (12-18) Blood Pressure (90/60-120/80) Blood Pressure Mean (mm Hg) Pain Scale: 0-10 Numeric Is Patient Pain Free? Yes Yes WC - Visit Discharge Discharge Condition Stable Stable Ambulatory Status Ambulatory,Cane Ambulatory,Cane Transportation Private Auto Private Auto Medication Reconcilliation completed & Yes provided to patient/care provider Clinical Summary of Care Provided Yes Assessment/Plan Assessment/Plan (1) Lymphedema: CODE(S): I89.0 - Lymphedema, not elsewhere classified PLAN: 1. Continue with the unna boots BL until the lymphedema pumps are delivered. Will need sleeves for both legs and for the RUE. 2. Continue the antibiotic cream to the great toe and cover with a dry dressing until completely healed
== END 2020-11-15 23:59 ==
LOC: WC 14:30
PROVIDERS: PCP Internal Medicine; Visit Provider Internal Medicine
DX: I89.0 Lymphedema, not elsewhere classified (principal); I11.0 Hypertensive heart disease with heart failure; I50.9 Heart failure, unspecified; E11.42 Type 2 diabetes mellitus with diabetic polyneuropathy; E66.9 Obesity, unspecified; E78.5 Hyperlipidemia, unspecified; K21.9 Gastro-esophageal reflux disease without esophagitis; Z85.3 Personal history of malignant neoplasm of breast; Z17.1 Estrogen receptor negative status [ER-]; Z68.35 Body mass index [BMI] 35.0-35.9, adult; I87.2 Venous insufficiency (chronic) (peripheral); F32.9 Major depressive disorder, single episode, unspecified; F41.9 Anxiety disorder, unspecified; Z79.899 Other long term (current) drug therapy; Z79.4 Long term (current) use of insulin
CPT/HCPCS: 29580; 99213; G0463

== ENCOUNTER 2020-11-18 14:30 | Outpatient (RCR) | payer OTHER, SELFPAY ==
[2020-11-14 15:08] VITALS: BMI 35.8
[2020-11-16 00:33] VITALS: BP 162/74; PULSE 96; RESP 20; TEMP 36.9
[2020-11-18 14:28] VITALS: BP 130/79; PULSE 99; TEMP 36; BMI 35.8
--- NOTE | 2020-11-18 16:23 | PN.PCM_ITS ---
History of Present Illness Date of Service: 11/18/20 Chief Complaint: seeping from her legs and discolored scales on the skin of the LE's L>R. History of Wound: Anitra is a 50 YO female with a PMH of breast CA (triple negative with mets), HTN, poorly controlled DM II, nephrotic S., anxiety/depr ession, tobacco dependence in remission, Left ventricular hypertrophy, grade 1 diastolic dysfunction, peripheral neuropathy, GERD,Hyperlipidemia and chronic hypomagnesemia who presents to the [facility] today with c/o weeping from her legs with thick, discolored scales. I have seen Anitra in the past when she was admitted to the rehab unit for debility due to pneumonia. She had lymphedema of the LE's the last time I saw her but the scales are new. She has gained at least 25-30 lbs since I last saw her. Subjective Subjective Anitra returns to the wound care center to recheck the wound on the tip of the R great toe. She has not received the lymphedema pumps yet because the rep was in an accident and could not come to her house on the day he was scheduled to come. She has been using the Circaids and she likes them a lot. Her neighbor helps her put them on because she has neuropathy in her hands and needs some as sistance. She did not get the Circaids on until late in the morning and her legs are more swollen today. Objective Data Objective Data Vital Signs: Vital Signs Temp Pulse Resp BP 96.8 F L 99 20 H 130/79 H 11/18/20 14:28 11/18/20 14:28 11/16/20 00:33 11/18/20 14:28 Weight: 221 lb Body Mass Index (BMI) 35.8 Charges/Coding Visit Charges Office Visits / Consults: 03805 OV L3 Est Physical Exam Skin Skin Narrative: the hyperkeratotic scales on the BL LE's have decreased with the debridements and sompression. There is no erythema and although she has some cracking of the skin there is no erythema or DC. Her legs are less achey since she has been wearing the Circaids. General Skin Exam: no breakdown Debridement Note Debridement Note Wound debrided: BL legs Type of Debridement: Excisional debridement Anesthesia Used: 4% Lidocaine Solution Depth: - (hyperkeratotic area were debulked with forceps and a currette) Percentage of wound debrided: 80 Instrument Used: 3mm curette and Forceps Severity: Limited To Skin Breakdown Amount of bleeding with debridement: None Patient tolerated procedure: Patient tolerated procedure well Operative Diagnosis: hyperkeratotic scales due to lymphedema that causing cracks in the skin Assessment/Plan Assessment/Plan (1) Lymphedema: CODE(S): I89.0 - Lymphedema, not elsewhere classified (2) Inflammatory hyperkeratotic dermatosis: CODE(S): L85.8 - Other specified epidermal thickening PLAN: Will contact the company to reschedule a new date for the lymphedema pumps to be delivered.
== END 2020-11-18 15:37 | disposition home or self-care (01) ==
LOC: WC 14:30
PROVIDERS: PCP Internal Medicine; Visit Provider Internal Medicine
DX: I89.0 Lymphedema, not elsewhere classified (principal); L85.9 Epidermal thickening, unspecified; Z85.3 Personal history of malignant neoplasm of breast; I10 Essential (primary) hypertension; K21.9 Gastro-esophageal reflux disease without esophagitis; E78.5 Hyperlipidemia, unspecified; E11.42 Type 2 diabetes mellitus with diabetic polyneuropathy; Z17.1 Estrogen receptor negative status [ER-]
CPT/HCPCS: 99213; G0463